=== PATIENT | male | born 1980 | race Caucasian/White ===

== ENCOUNTER 2018-06-06 09:38 | Inpatient (IN) | payer OTHER ==
--- NOTE | 2018-06-06 10:27 | PDOC ---
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 Per parents, pt's seizures were previously well controlled, with seizures occurring only once every few weeks/months. However, over the past 3 weeks, pt's seizure frequency has increased dramatically. Pt was admitted 2 weeks ago to [facility] for status epilepticus. Pt was discharged on new medication regimen, but shortly after returning home, pt's seizures began to increase in frequency again. Yesterday, pt was seen by Dr. Christie, who adjusted his medications once more. However, today since 6am, parents report that pt has had seizures every 2 minutes. Parents deny any recent fevers. They note that he has had a few falls 2/2 seizures, most recently this morning. He has been compliant with his medications. Does not use any drugs/alcohol. Pt currently takes Topamax, phenobarb, keppra, and ativan PRN. Past History - Past Medical History Allergies/Adverse Reactions: Allergies Allergy/AdvReac Type Severity Reaction Status Date / Time No Known Allergies Allergy Verified 06/06/18 10:10 COPD: No Seizures: Yes (s/p menengitis) - Suicide/Smoking/Psychosocial Hx Smoking History: Never smoked Have you smoked in the past 12 months: No Information on smoking cessation initiated: No Hx Alcohol Use: No Drug/Substance Use Hx: No Review of Systems - Review of Systems Able to Perform ROS?: No *Physical Exam - Vital Signs Last Vital Signs Temp Pulse Resp BP Pulse Ox 99.2 F 76 16 115/96 100 06/06/18 09:40 06/06/18 09:40 06/06/18 09:40 06/06/18 09:40 06/06/18 09:40 - Physical Exam Comments: 06/06/18 10:23 GENERAL: Awake, alert, in no acute distress. HEAD: + hematoma to R forehead EYES: PERRLA, EOMI, sclera anicteric, conjunctiva clear ENT: Auricles normal inspection, hearing grossly normal, nares patent, oropharynx clear without exudates. Moist mucosa NECK: Nontender, no stepoffs, Normal ROM, supple, no lymphadenopathy, JVD, or masses LUNGS: Breath sounds equal, clear to auscultation bilaterally. No wheezes, and no crackles HEART: Regular rate and rhythm, normal S1 and S2, no murmurs, rubs or gallops ABDOMEN: Soft, nontender, normoactive bowel sounds. No guarding, no rebound. No masses EXTREMITIES: Normal range of motion, no edema. No clubbing or cyanosis. No cords, erythema, or tenderness NEUROLOGICAL: + Post-ictal, Cranial nerves II through XII intact. 5/5 strength and sensation in all extremities SKIN: Warm, Dry, normal turgor, no rashes or lesions noted. ED Treatment Course - LABORATORY CBC & Chemistry Diagram: 06/06/18 10:13 06/06/18 10:13 - RADIOLOGY Radiology Studies Ordered: Category Date Time Status CERVICAL SPINE CT W/O CONTR [CT] Stat CT Scan 06/06/18 10:[address] WITHOUT CONTRAST [CT] Stat CT Scan 06/06/18 10:08 Ordered CHEST X-RAY PORTABLE* [RAD] Stat Radiology 06/06/18 10:06 Ordered Medical Decision Making - Critical Care Time Total Critical Care Time (minutes): 60 Critical Care Statement: The care of this patient involved high complexity decision making to prevent further life threatening deterioration of the patient 's condition and/or to evaluate & treat vital organ system(s) failure or risk of failure. - Medical Decision Making 06/06/18 10:27 37 M with seizure disorder, presenting to ED in status epilepticus. Etiology unclear. Will evaluate for infectious/metabolic process. Pt also with hematoma to forehead, will r/o intracranial injury. - Labs - CXR, UA - CT head - Keppra load - Ativan PRN - C/s Dr. Christie 06/06/18 11:[address] Christie, who recommends adding Vimpat 100mg IV. Will come evaluate pt. 06/06/18 13:[address] Alondra Quinteros *DC/Admit/Observation/Transfer Diagnosis at time of Disposition: Status epilepticus - Discharge Dispostion Decision to Admit order: Yes - Referrals Referrals: Bhavin Belle MD [Primary Care Provider] - - Patient Instructions - Post Discharge Activity - Attestations Physician Attestion: 06/06/18 13:02 I, Dr. Sean Petit MD, attest that this document has been prepared under my direction and personally reviewed by me in its entirety. I further attest, that it accurately reflects all work, treatment, procedures and medical decision -making performed by me.
[2018-06-06 10:34] LABS: BASO % 0.9 % (0-2.0); EOS % 1.9 % (0-4.5); HEMOGLOBIN 16.9 GM/dL (11.7-16.9); LYMPH % 28.3 % (8-40); MCH 30.7 pg (25.7-33.7); MCHC 33.1 g/dl (32.0-35.9); MEAN CELL VOLUME 92.8 fl (80-96); MEAN PLT VOLUME 8.8 fl (7.5-11.1); MONO % 6.6 % (3.8-10.2); NEUT % 62.3 % (42.8-82.8); PLATELET COUNT 248 K/MM3 (134-434); RBC 5.49 M/mm3 (4.00-5.60); RDW 14.1 % (11.9-15.9); WHITE BLOOD COUNT 9.6 K/mm3 (4.0-10.0)
[2018-06-06] MEDS ORDERED: levETIRAcetam 500 MG/5 ML INJECTION VIAL IVPB ONE ×3 (10:37→10:55)
[2018-06-06 10:45] LABS: PROTHROMBIN TIME (PATIENT) 11.8 SEC (9.7-13.0)
[2018-06-06 10:48] LABS: ACTIVATED PTT 37.6 SECONDS (25.2-36.5)
[2018-06-06] MEDS ORDERED: LORazepam 2 MG/ML SDV VIAL ONE (10:55)
[2018-06-06 10:57] LABS: ALK PHOS 132 U/L (45-117); ANION GAP 3 MMOL/L (8-16); BILIRUBIN,TOTAL 0.2 mg/dL (0.2-1); BLOOD UREA NITROGEN 6 mg/dL (7-18); CHLORIDE 111 mmol/L (98-107); CO2 27 mmol/L (21-32); CREATININE 0.6 mg/dL (0.55-1.3); GLUCOSE,RANDOM 96 mg/dL (74-106); POTASSIUM 4.4 mmol/L (3.5-5.1); SGOT/AST 20 U/L (15-37); SGPT/ALT 41 U/L (13-61); SODIUM 142 mmol/L (136-145)
[2018-06-06] MEDS ORDERED: Lacosamide 200 MG/20 ML VIAL IVPB ONE ×2 (11:24→11:51)
[2018-06-06 11:48] LABS: VENOUS PC02 33.7 mmHg (41-51); VENOUS PH 7.38 (7.31-7.41); VENOUS PO2 76.5 mmHg (30-40)
--- NOTE | 2018-06-06 12:14 | EKG ---
Test Reason : Blood Pressure : / mmHG Vent. Rate : 076 BPM Atrial Rate : 076 BPM P-R Int : 146 ms QRS Dur : 088 ms QT Int : 394 ms P-R-T Axes : 030 -13 018 degrees QTc Int : 443 ms POOR DATA QUALITY, INTERPRETATION MAY BE ADVERSELY AFFECTED NORMAL SINUS RHYTHM NORMAL ECG NO PREVIOUS ECGS AVAILABLE Confirmed by BREANNA DING MD ([id number]) on 06/06/2018 12:14:29 PM Referred By: Confirmed By:BREANNA DING MD
--- NOTE | 2018-06-06 16:10 | HP ---
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 Per parents, pt's seizures were previously well controlled, with seizures occurring only once every few weeks/months. However, over the past 3 weeks, pt's seizure frequency has increased dramatically. Pt was admitted 2 weeks ago to [facility] for status epilepticus. Pt was discharged on new medication regimen, but shortly after returning home, pt's seizures began to increase in frequency again. Yesterday, pt was seen by Dr. Christie, who adjusted his medications once more. However, today since 6am, parents report that pt has had seizures every 2 minutes. Parents deny any recent fevers. They note that he has had a few falls 2/2 seizures, most recently this morning. He has been compliant with his medications. Does not use any drugs/alcohol. Pt currently takes Topamax, phenobarb, keppra, and ativan PRN. 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 - Smoking History Smoking history: Never smoked Have you smoked in the past 12 months: No - Alcohol/Substance Use Hx Alcohol Use: No Home Medications - Allergies Allergies/Adverse Reactions: Allergies Allergy/AdvReac Type Severity Reaction Status Date / Time No Known Allergies Allergy Verified 06/06/18 10:10 Review of Systems - Review of Systems Constitutional: reports: No Symptoms Neck: reports: No Symptoms Cardiovascular: reports: No Symptoms Respiratory: reports: No Symptoms Gastrointestinal: reports: No Symptoms Genitourinary: reports: No Symptoms Physical Examination Vital Signs: Vital Signs Temperature 99.2 F 06/06/18 10:06 Pulse Rate 83 06/06/18 15:19 Respiratory Rate 13 06/06/18 15:19 Blood Pressure 115/78 06/06/18 15:19 O2 Sat by Pulse Oximetry (%) 97 06/06/18 15:19 Constitutional: Yes: Calm Cardiovascular: Yes: Regular Rate and Rhythm, S1, S2 Respiratory: Yes: CTA Bilaterally Gastrointestinal: Yes: Normal Bowel Sounds, Soft Edema: No Labs: CBC, BMP 06/06/18 10:13 06/06/18 10:13 Imaging - Results X-ray: Report Reviewed Cat Scan: Report Reviewed Problem List - Problems (1) Status epilepticus Assessment/Plan: neurology consult vimpat seizure preciatuons dvt ppx tylenol keppra level Code(s): G40.901 - EPILEPSY, UNSP, NOT INTRACTABLE, WITH STATUS EPILEPTICUS
--- NOTE | 2018-06-06 16:27 | CON.NEURO ---
Consult Consult Specialty:: Pratik Referred by:: ER - History of Present Illness History of Present Illness: 7-YEAR-OLD RIGHT-HANDED MAN WITH HISTORY OF CHILDHOOD MENINGITIS PRESENTED TO THE HOSPITAL WITH FREQUENT SEIZURE. pATIENT HAD MULTIPLE SEIZURES SINCE ADMISSION ACTUALLY SAW THE PATIENT YESTERDAY IN MY OFFICE HE WAS SEIZURE-FREE PATIENT WAS RECENTLY DISCHARGED FROM [facility] PATIENT HAS BEEN ON MULTIPLE MULTIPLE SEIZURE MEDICATION WITH MULTIPLE SIDE EFFECTS. Patient was recently discharged from the hospital on Dilantin which gave the patient cough Patient was currently on Topamax and zonisamide Keppra and phenobarbital. Medication recon sedation was done yesterday patient was supposed to increase the Keppra to 3500 mg a day. Patient received 1750 of the Keppra IV in the emergency room. 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 postictal Physical Exam-Neuro Vital Signs: Vital Signs Temperature 99.2 F 06/06/18 10:06 Pulse Rate 83 06/06/18 15:19 Respiratory Rate 13 06/06/18 15:19 Blood Pressure 115/78 06/06/18 15:19 O2 Sat by Pulse Oximetry (%) 97 06/06/18 15:19 Constitutional: Yes: Well Nourished Neck: Yes: WNL Cardiovascular: Yes: WNL Labs: CBC, BMP 06/06/18 10:13 06/06/18 10:13 INR, PTT INR 1.00 (0.83-1.09) 06/06/18 10:13 - Neuro Exam Level Of Consciousness: Yes: Alert, Oriented to Person Eyes: Yes: PERRLA Speech: WNL Gag: Present DTR's: 1+ Left Bicep, 1+ Right Bicep, 1+ Left Tricep, 1+ Right Tricep Coordination: Normal: Finger to Nose Motor Strength: 3/5: Left Arm, Right Arm, Left Leg, Right Leg Imaging - Results Cat Scan: Image Reviewed Problem List - Problems (1) Status epilepticus Assessment/Plan: poorly controlled seizure disorder on multiple medication Discussion yesterday was done with the mother regarding potential for epilepsy surgery Plan 1. Admit to the medical ICU. 2. Neuro checks every 1 hour. 3. Start Vimpat 100 mg by mouth every 12. 4. Continue Keppra 1750 twice daily. 4. Topamax 200 mg 3 times daily. 5. Continue phenobarbital the same. 6. Obtain levels. 8. EEG. Start communication with [place] epilepsy surgical team Code(s): G40.901 - EPILEPSY, UNSP, NOT INTRACTABLE, WITH STATUS EPILEPTICUS
[2018-06-06 20:13] VITALS: BMI 29.7
[2018-06-06] MEDS: HEPARIN NA (PORCINE) 5,000 UNITS/ML 1ML VIAL SQ SCH (21:22)
[2018-06-06] MEDS: LACOSAMIDE 50 MG TABLET PO SCH (21:22)
[2018-06-06] MEDS: ACETAMINOPHEN 325 MG TABLET (FP) PO PRN (21:22)
[2018-06-07 07:18] LABS: HEMATOCRIT 47.4 % (35.4-49); HEMOGLOBIN 15.7 GM/dL (11.7-16.9); MCH 30.5 pg (25.7-33.7); MCHC 33.1 g/dl (32.0-35.9); MEAN CELL VOLUME 92.1 fl (80-96); MEAN PLT VOLUME 9.4 fl (7.5-11.1); PLATELET COUNT 199 K/MM3 (134-434); RBC 5.14 M/mm3 (4.00-5.60); RDW 14.2 % (11.9-15.9); WHITE BLOOD COUNT 7.5 K/mm3 (4.0-10.0)
[2018-06-07 07:23] LABS: PROTHROMBIN TIME (PATIENT) 11.8 SEC (9.7-13.0)
[2018-06-07 07:26] LABS: ACTIVATED PTT 34.5 SECONDS (25.2-36.5)
[2018-06-07 08:01] LABS: ALBUMIN 3.4 g/dl (3.4-5.0); ALK PHOS 107 U/L (45-117); ANION GAP 8 MMOL/L (8-16); BILIRUBIN,TOTAL 0.3 mg/dL (0.2-1); BLOOD UREA NITROGEN 12 mg/dL (7-18); CALCIUM 8.5 mg/dL (8.5-10.1); CHLORIDE 108 mmol/L (98-107); CO2 23 mmol/L (21-32); CREATININE 0.5 mg/dL (0.55-1.3); GLUCOSE,RANDOM 88 mg/dL (74-106); MAGNESIUM 2.4 mg/dL (1.8-2.4); PHOSPHOROUS 3.3 mg/dL (2.5-4.9); POTASSIUM 3.8 mmol/L (3.5-5.1); SGOT/AST 17 U/L (15-37); SGPT/ALT 33 U/L (13-61); SODIUM 139 mmol/L (136-145)
--- NOTE | 2018-06-07 10:13 | PN ---
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, Physician - Current Medication List Current Medications: Active Medications Acetaminophen (Tylenol -) 650 mg PO Q4H PRN PRN Reason: FEVER Last Admin: 06/06/18 21:22 Dose: 650 mg Heparin Sodium (Porcine) (Heparin -) 5,000 unit SQ BID [facility] Last Admin: 06/06/18 21:22 Dose: 5,000 unit Lacosamide (Vimpat -) 100 mg PO BID [facility] Last Admin: 06/06/18 21: Dose: 100 mg - Objective Vital Signs: Vital Signs Temperature 98.5 F 06/07/18 06:00 Pulse Rate 73 06/07/18 06:00 Respiratory Rate 18 06/07/18 06:00 Blood Pressure 111/74 06/07/18 06:00 O2 Sat by Pulse Oximetry (%) 97 06/06/18 21:00 Cardiovascular: Yes: Regular Rate and Rhythm Respiratory: Yes: Regular, CTA Bilaterally Gastrointestinal: Yes: Normal Bowel Sounds, Soft Neurological: Yes: Pre-Existing Deficit Labs: CBC, BMP 06/07/18 07:00 06/07/18 07:00 INR, PTT INR 1.00 (0.83-1.09) 06/07/18 07:00 Problem List - Problems (1) Status epilepticus Assessment/Plan: neurology consult vimpat seizure preciatuons dvt ppx tylenol keppra level Code(s): G40.901 - EPILEPSY, UNSP, NOT INTRACTABLE, WITH STATUS EPILEPTICUS
[2018-06-07] MEDS: HEPARIN NA (PORCINE) 5,000 UNITS/ML 1ML VIAL SQ SCH ×2 (10:59→21:35)
[2018-06-07] MEDS: LACOSAMIDE 50 MG TABLET PO SCH ×2 (10:59→21:35)
--- NOTE | 2018-06-07 12:40 | PN ---
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, Physician History of Present Illness: events noted that chart is reviewed Alert awake oriented sitting in the bed Family is happy with the treatment so far Mild small seizure - Current Medication List Current Medications: Active Medications Acetaminophen (Tylenol -) 650 mg PO Q4H PRN PRN Reason: FEVER Last Admin: 06/06/18 21:22 Dose: 650 mg Heparin Sodium (Porcine) (Heparin -) 5,000 unit SQ BID [facility] Last Admin: 06/07/18 10:59 Dose: 5,000 unit Lacosamide (Vimpat -) 100 mg PO BID [facility] Last Admin: 06/07/18 10:59 Dose: 100 mg - Objective Vital Signs: Vital Signs Temperature 98.2 F 06/07/18 10:00 Pulse Rate 77 06/07/18 10:00 Respiratory Rate 18 06/07/18 10:00 Blood Pressure 117/76 06/07/18 10:00 O2 Sat by Pulse Oximetry (%) 97 06/06/18 21:00 Constitutional: Yes: Well Nourished Eyes: Yes: WNL Neurological: Yes: Alert, Oriented, Babinski positive ...Motor Strength: WNL Labs: CBC, BMP 06/07/18 07:00 06/07/18 07:00 INR, PTT INR 1.00 (0.83-1.09) 06/07/18 07:00 Problem List - Problems (1) Status epilepticus Assessment/Plan: status epilepticus controlled Complex partial seizure with partial onset 1. Seizure precautions. 2. Continue Vimpat the same. 3. Continue Keppra with the plan to dc Keppra as an outpatient. 4. Neurologically patient can go home June 08 Code(s): G40.901 - EPILEPSY, UNSP, NOT INTRACTABLE, WITH STATUS EPILEPTICUS
[2018-06-07 19:36] LABS: PH,URINE 7.5 (5.0-8.0); URINE APPEARANCE CLEAR; URINE BILIRUBIN NEGATIVE (NEGATIVE); URINE COLOR YELLOW; URINE GLUCOSE (UA) NEGATIVE (NEGATIVE); URINE KETONE NEGATIVE (NEGATIVE); URINE LEUK ESTERASE NEGATIVE (NEGATIVE); URINE NITRITE NEGATIVE (NEGATIVE); URINE PROTEIN NEGATIVE (NEGATIVE); URINE UROBILINOGEN 0.2 mg/dL (0.2-1.0)
[2018-06-07] MEDS: ACETAMINOPHEN 325 MG TABLET (FP) PO PRN (21:36)
[2018-06-08] MEDS: LACOSAMIDE 50 MG TABLET PO SCH ×2 (09:35→21:17)
[2018-06-08] MEDS: HEPARIN NA (PORCINE) 5,000 UNITS/ML 1ML VIAL SQ SCH ×2 (09:35→21:17)
--- NOTE | 2018-06-08 11:54 | PN ---
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, Physician Chief Complaint: events and notes reviewed mom is bedside +seizure overnight - Current Medication List Current Medications: Active Medications Acetaminophen (Tylenol -) 650 mg PO Q4H PRN PRN Reason: FEVER Last Admin: 06/07/18 21:36 Dose: 650 mg Heparin Sodium (Porcine) (Heparin -) 5,000 unit SQ BID [facility] Last Admin: 06/08/18 09:35 Dose: 5,000 unit Lacosamide (Vimpat -) 100 mg PO BID [facility] Last Admin: 06/08/18 09:35 Dose: 100 mg - Objective Vital Signs: Vital Signs Temperature 98.5 F 06/08/18 06:00 Pulse Rate 63 06/08/18 06:00 Respiratory Rate 18 06/08/18 06:00 Blood Pressure 134/71 06/08/18 06:00 O2 Sat by Pulse Oximetry (%) 97 06/06/18 21:00 Constitutional: Yes: Mild Distress Cardiovascular: Yes: Regular Rate and Rhythm Respiratory: Yes: WNL Gastrointestinal: Yes: WNL Musculoskeletal: Yes: Muscle Weakness Edema: No ...Motor Strength: LLE, RLE Psychiatric: Yes: Other Labs: CBC, BMP 06/07/18 07:00 06/07/18 07:00 INR, PTT INR 1.00 (0.83-1.09) 06/07/18 07:00 Problem List - Problems (1) Status epilepticus Code(s): G40.901 - EPILEPSY, UNSP, NOT INTRACTABLE, WITH STATUS EPILEPTICUS Assessment/Plan NEUROLOGY WORKUP AND FOLLOW UP NEURO CHECKS FALL RISKS MAY NEED TO ADD KEPPRA WITH VINPAT PT EVAL
[2018-06-08] MEDS ORDERED: LORazepam 2 MG/ML SDV VIAL IVPUSH ONE (23:06)
[2018-06-08] MEDS ORDERED: levETIRAcetam 500 MG TABLET (FP) PO SCH ×2 (23:15→23:30)
[2018-06-08] MEDS ORDERED: LORazepam 2 MG/ML SDV VIAL IVPUSH PRN (23:16)
--- NOTE | 2018-06-08 23:21 | PN ---
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 (short form) - Note 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: Rapid response called for Pt. found to be in partial tonic clonic seizures involving the upper extremities. Vital signs showed BP 150s/60s and HR of 66. Family was in attendance. No difficulty with respirations observed. Pt. seen to have post-ictal confusion, reoriented by mother at bedside. Pt. observed to have multiple seizures all less than 90 seconds. Pt. given 2mg Ativan. Pt. had appropriate response to medications and appears comfortable. Chart reviewed, Pt. restarted on Keppra, topomax, vimpat and phenobarbital per Neurology recommendations.
--- NOTE | 2018-06-08 23:26 | HOSP ---
Subjective - Review of Symptoms Events since last encounter: pt is having multiple seizures and rapid response was called and pt is given iv ativan for repeat seizure in few mins he is being evaluated by rapid response vs Vital Signs Period Temp Pulse Resp BP Sys/Ortiz Pulse Ox Last 24 Hr 98.3 F-98.5 F 63-99 18-18 125-134/65-80 pt is actively having seizures Here is Neurologist recommendations Dr Estrada poorly controlled seizure disorder on multiple medication Discussion yesterday was done with the mother regarding potential for epilepsy surgery Plan 1. Admit to the medical ICU. 2. Neuro checks every 1 hour. 3. Start Vimpat 100 mg by mouth every 12. 4. Continue Keppra 1750 twice daily. 4. Topamax 200 mg 3 times daily. 5. Continue phenobarbital the same. 6. Obtain levels. 8. EEG. Start communication with [place] epilepsy surgical team Assesment and Plan will start on keppra, tompamax,phenobarbital and continue vampat Physical Examination Vital Signs: Vital Signs Temperature 98.3 F 06/08/18 16:15 Pulse Rate 99 H 06/08/18 16:15 Respiratory Rate 18 06/08/18 16:15 Blood Pressure 127/80 06/08/18 16:15 O2 Sat by Pulse Oximetry (%) 97 06/06/18 21:00 Labs: CBC, BMP 06/07/18 07:00 06/07/18 07:00
[2018-06-08] MEDS ORDERED: levETIRAcetam 250 MG TABLET (FP) PO SCH (23:30)
[2018-06-08] MEDS ORDERED: levETIRAcetam 250 MG TABLET (FP) PO ONE (23:31)
[2018-06-08] MEDS ORDERED: levETIRAcetam 500 MG TABLET (FP) PO ONE (23:31)
[2018-06-08] MEDS: levETIRAcetam 1,500 MG, levETIRAcetam 250 MG PO SCH (23:45)
[2018-06-08] MEDS: TOPIRAMATE 100 MG TABLET PO SCH (23:45)
[2018-06-08] MEDS: PHENobarbital 30 MG TABLET PO SCH (23:45)
[2018-06-08] MEDS: ACETAMINOPHEN 325 MG TABLET (FP) PO PRN (23:52)
[2018-06-09] MEDS: TOPIRAMATE 100 MG TABLET PO SCH ×3 (05:58→21:24)
[2018-06-09] MEDS ORDERED: levETIRAcetam 250 MG TABLET (FP) PO ONE ×2 (09:15→15:15)
[2018-06-09] MEDS ORDERED: levETIRAcetam 500 MG TABLET (FP) PO ONE (09:15)
[2018-06-09] MEDS ORDERED: PT OWN MED DRAWER 7, Y5N ONE ×3 (09:16→20:38)
[2018-06-09] MEDS: levETIRAcetam 1,500 MG, levETIRAcetam 250 MG PO SCH (09:21)
[2018-06-09] MEDS: PHENobarbital 30 MG TABLET PO SCH ×2 (09:21→21:24)
[2018-06-09] MEDS: LACOSAMIDE 50 MG TABLET PO SCH ×2 (09:21→21:24)
[2018-06-09] MEDS: HEPARIN NA (PORCINE) 5,000 UNITS/ML 1ML VIAL SQ SCH ×2 (09:21→21:26)
[2018-06-09] MEDS ORDERED: LACOSAMIDE 50 MG TABLET PO ONE (14:03)
[2018-06-09] MEDS ORDERED: LACOSAMIDE 50 MG TABLET PO SCH (14:03)
--- NOTE | 2018-06-09 14:06 | PN ---
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, Physician Chief Complaint: overnight events noted rapid response was called for seizures spoke to Dr holland and recommends to inc vimpat to 200mg po bid no more seizures since last night - Current Medication List Current Medications: Active Medications Acetaminophen (Tylenol -) 650 mg PO Q4H PRN PRN Reason: FEVER Last Admin: 06/08/18 23:52 Dose: 650 mg Heparin Sodium (Porcine) (Heparin -) 5,000 unit SQ BID [facility] Last Admin: 06/09/18 09:21 Dose: 5,000 unit Lacosamide (Vimpat -) 200 mg PO BID [facility] Lacosamide (Vimpat -) 100 mg PO ONCE ONE Stop: 06/09/18 14:04 Levetiracetam 1,500 mg/ (Levetiracetam 250 mg) 1,750 mg PO BID [facility] Last Admin: 06/09/18 09:21 Dose: 1,750 mg Lorazepam (Ativan Injection -) 2 mg IVPUSH DAILY PRN PRN Reason: ANXIETY Stop: 06/09/18 23:15 Phenobarbital (Phenobarbital -) 60 mg PO BID [facility] Last Admin: 06/09/18 09:21 Dose: 60 mg Topiramate (Topamax -) 200 mg PO TID [facility] Last Admin: 06/09/18 13:30 Dose: 200 mg - Objective Vital Signs: Vital Signs Temperature 98.0 F 06/09/18 10:00 Pulse Rate 66 06/09/18 10:00 Respiratory Rate 20 06/09/18 10:00 Blood Pressure 117/72 06/09/18 10:00 O2 Sat by Pulse Oximetry (%) 97 06/09/18 09:00 Constitutional: Yes: Calm Cardiovascular: Yes: Regular Rate and Rhythm, S1, S2 Respiratory: Yes: CTA Bilaterally Gastrointestinal: Yes: Normal Bowel Sounds, Soft Edema: No Labs: CBC, BMP 06/07/18 07:00 06/07/18 07:00 INR, PTT INR 1.00 (0.83-1.09) 06/07/18 07:00 Problem List - Problems (1) Status epilepticus Assessment/Plan: neurology on board vimpat 100mg bid to inc to 200mg bid seizure preciatuons dvt ppx tylenol keppra 1750mg bid phenobarbitol 60mg bid topiramate 200mg tid Code(s): G40.901 - EPILEPSY, UNSP, NOT INTRACTABLE, WITH STATUS EPILEPTICUS
[2018-06-09] MEDS ORDERED: levETIRAcetam 500 MG/5 ML INJECTION VIAL IVPB ONE (14:32)
--- NOTE | 2018-06-09 18:03 | PN ---
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, Physician History of Present Illness: events noted Chart reviewed Patient was doing very well until last night when he had 4 seizures according to the mother back to back Known called neurology Patient is on a combination of Vimpat Keppra and Topamax - Current Medication List Current Medications: Active Medications Acetaminophen (Tylenol -) 650 mg PO Q4H PRN PRN Reason: FEVER Last Admin: 06/08/18 23:52 Dose: 650 mg Heparin Sodium (Porcine) (Heparin -) 5,000 unit SQ BID [facility] Last Admin: 06/09/18 09:21 Dose: 5,000 unit Lacosamide (Vimpat -) 200 mg PO BID [facility] Levetiracetam (Keppra -) 2,000 mg PO BID [facility] Lorazepam (Ativan Injection -) 2 mg IVPUSH DAILY PRN PRN Reason: ANXIETY Stop: 06/09/18 23:15 Phenobarbital (Phenobarbital -) 60 mg PO BID [facility] Last Admin: 06/09/18 09:21 Dose: 60 mg Topiramate (Topamax -) 200 mg PO TID [facility] Last Admin: 06/09/18 13:30 Dose: 200 mg - Objective Vital Signs: Vital Signs Temperature 97.6 F 06/09/18 14:15 Pulse Rate 75 06/09/18 14:15 Respiratory Rate 18 06/09/18 14:15 Blood Pressure 120/73 06/09/18 14:15 O2 Sat by Pulse Oximetry (%) 97 06/09/18 09:00 Constitutional: Yes: Well Nourished Eyes: Yes: WNL Neurological: Yes: Alert, Oriented, Babinski negative ...Motor Strength: WNL Labs: CBC, BMP 06/07/18 07:00 06/07/18 07:00 INR, PTT INR 1.00 (0.83-1.09) 06/07/18 07:00 Problem List - Problems (1) Status epilepticus Assessment/Plan: 1. Seizure precautions. 2. Increase Vimpat to 200 mg twice daily. 3. Keppra the same 1750 twice daily. 4. If the patient's seizure free for 24 hours can be discharged. Code(s): G40.901 - EPILEPSY, UNSP, NOT INTRACTABLE, WITH STATUS EPILEPTICUS
[2018-06-09] MEDS: levETIRAcetam 500 MG TABLET (FP) PO SCH (21:24)
[2018-06-10] MEDS: TOPIRAMATE 200 MG TABLET (FP) PO SCH ×3 (05:42→22:50)
[2018-06-10] MEDS: LACOSAMIDE 50 MG TABLET PO SCH ×2 (09:47→22:49)
[2018-06-10] MEDS: PHENobarbital 30 MG TABLET PO SCH ×2 (09:48→22:50)
[2018-06-10] MEDS: levETIRAcetam 500 MG TABLET (FP) PO SCH ×2 (09:48→22:49)
[2018-06-10] MEDS: HEPARIN NA (PORCINE) 5,000 UNITS/ML 1ML VIAL SQ SCH ×2 (09:48→22:51)
--- NOTE | 2018-06-10 15:23 | DS ---
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 As per mother patient seizures have been more frequently and increased. Patient was admitted to [facility] prior to coming to [facility] with same chief complaint. While admitted patient was followed by neurology and had medication managed by them. Constitutional: Yes: No Distress, Calm Eyes: Yes: Conjunctiva Clear HENT: Yes: Atraumatic Cardiovascular: Yes: Regular Rate and Rhythm Respiratory: Yes: Regular, CTA Bilaterally Gastrointestinal: Yes: Normal Bowel Sounds, Soft Renal/: Yes: Incontinence Musculoskeletal: Yes: Muscle Weakness Extremities: Yes: WNL Edema: No Neurological: Yes: Alert, Pre-Existing Deficit Psychiatric: Yes: Alert Labs: CBC, BMP 06/07/18 07:00 06/07/18 07:00 Discharge Summary Reason For Visit: STATUS EPILEPTICUS Current Active Problems Status epilepticus (Acute) Hospital Course: see progress notes Laboratory Tests 06/06/18 06/06/18 06/06/18 10:13 10:13 10:13 WBC 9.6 RBC 5.49 Hgb 16.9 Hct 51.0 H MCV 92.8 MCH 30.7 MCHC 33.1 RDW 14.1 Plt Count 248 MPV 8.8 Absolute Neuts (auto) 6.0 Neutrophils % 62.3 Lymphocytes % 28.3 Monocytes % 6.6 Eosinophils % 1.9 Basophils % 0.9 Nucleated RBC % 0 PT with INR 11.80 INR 1.00 PTT (Actin FS) 37.6 H VBG pH POC VBG pCO2 POC VBG pO2 VBG HCO3 VBG O2 Sat ([place]) VBG Base Excess Sodium 142 Potassium 4.4 Chloride 111 H Carbon Dioxide 27 Anion Gap 3 L BUN 6 L Creatinine 0.6 Creat Clearance w eGFR 152.45 Random Glucose 96 Lactic Acid Calcium 9.0 Phosphorus Magnesium Total Bilirubin 0.2 AST 20 ALT 41 Alkaline Phosphatase 132 H Troponin I Total Protein 8.0 Albumin 4.0 Urine Color Urine Appearance Urine pH Ur Specific [place] Urine Protein Urine Glucose (UA) Urine Ketones Urine Blood Urine Nitrite Urine Bilirubin Urine Urobilinogen Ur Leukocyte Esterase Levetiracetam 06/06/18 06/06/18 06/06/18 10:13 11:30 11:30 WBC RBC Hgb Hct MCV MCH MCHC RDW Plt Count MPV Absolute Neuts (auto) Neutrophils % Lymphocytes % Monocytes % Eosinophils % Basophils % Nucleated RBC % PT with INR INR PTT (Actin FS) VBG pH 7.38 POC VBG pCO2 33.7 L POC VBG pO2 76.5 H VBG HCO3 19.3 L VBG O2 Sat ([place]) 95.0 H VBG Base Excess -4.5 L Sodium Potassium Chloride Carbon Dioxide Anion Gap BUN Creatinine Creat Clearance w eGFR Random Glucose Lactic Acid 1.1 Calcium Phosphorus Magnesium Total Bilirubin AST ALT Alkaline Phosphatase Troponin I < 0.02 Total Protein Albumin Urine Color Urine Appearance Urine pH Ur Specific [place] Urine Protein Urine Glucose (UA) Urine Ketones Urine Blood Urine Nitrite Urine Bilirubin Urine Urobilinogen Ur Leukocyte Esterase Levetiracetam 06/06/18 06/06/18 06/07/18 11:30 14:30 07:00 WBC 7.5 RBC 5.14 Hgb 15.7 Hct 47.4 MCV 92.1 MCH 30.5 MCHC 33.1 RDW 14.2 Plt Count 199 MPV 9.4 Absolute Neuts (auto) Neutrophils % Lymphocytes % Monocytes % Eosinophils % Basophils % Nucleated RBC % PT with INR INR PTT (Actin FS) VBG pH POC VBG pCO2 POC VBG pO2 VBG HCO3 VBG O2 Sat ([place]) VBG Base Excess Sodium Potassium Chloride Carbon Dioxide Anion Gap BUN Creatinine Creat Clearance w eGFR Random Glucose Lactic Acid 1.0 Calcium Phosphorus Magnesium Total Bilirubin AST ALT Alkaline Phosphatase Troponin I Total Protein Albumin Urine Color Urine Appearance Urine pH Ur Specific [place] Urine Protein Urine Glucose (UA) Urine Ketones Urine Blood Urine Nitrite Urine Bilirubin Urine Urobilinogen Ur Leukocyte Esterase Levetiracetam 90.5 H 06/07/18 06/07/18 06/07/18 07:00 07:00 17:45 WBC RBC Hgb Hct MCV MCH MCHC RDW Plt Count MPV Absolute Neuts (auto) Neutrophils % Lymphocytes % Monocytes % Eosinophils % Basophils % Nucleated RBC % PT with INR 11.80 INR 1.00 PTT (Actin FS) 34.5 VBG pH POC VBG pCO2 POC VBG pO2 VBG HCO3 VBG O2 Sat (Portilol) VBG Base Excess Sodium 139 Potassium 3.8 Chloride 108 H Carbon Dioxide 23 Anion Gap 8 BUN 12 Creatinine 0.5 L Creat Clearance w eGFR 188.15 Random Glucose 88 Lactic Acid Calcium 8.5 Phosphorus 3.3 Magnesium 2.4 Total Bilirubin 0.3 AST 17 ALT 33 Alkaline Phosphatase 107 Troponin I Total Protein 7.0 Albumin 3.4 Urine Color Yellow Urine Appearance Clear Urine pH 7.5 Ur Specific [place] 1.006 L Urine Protein Negative Urine Glucose (UA) Negative Urine Ketones Negative Urine Blood Negative Urine Nitrite Negative Urine Bilirubin Negative Urine Urobilinogen 0.2 Ur Leukocyte Esterase Negative Levetiracetam Active Medications Generic Name Dose Route Start Last Admin Trade Name Freq PRN Reason Stop Dose Admin Acetaminophen 650 mg 06/06/18 16:17 06/08/18 23:52 Tylenol - PO 650 mg Q4H PRN Administration FEVER Heparin Sodium (Porcine) 5,000 unit 06/06/18 22:00 06/10/18 09:48 Heparin - SQ 5,000 unit BID TIKI Administration Lacosamide 200 mg 06/09/18 22:00 06/10/18 09:47 Vimpat - PO 200 mg BID TIKI Administration Levetiracetam 2,000 mg 06/09/18 14:21 06/10/18 09:48 Keppra - PO 2,000 mg BID TIKI Administration Phenobarbital 60 mg 06/08/18 23:30 06/10/18 09:48 Phenobarbital - PO 60 mg BID TIKI Administration Topiramate 200 mg 06/10/18 06:00 06/10/18 14:41 Topamax - PO 200 mg TID TIKI Administration Microbiology 06/06/18 11:30 Blood - Peripheral Venous Blood Culture - Preliminary NO GROWTH OBTAINED AFTER 96 HOURS, INCUBATION TO CONTINUE FOR 1 DAYS. 06/06/18 11:30 Blood - Peripheral Venous Blood Culture - Preliminary NO GROWTH OBTAINED AFTER 96 HOURS, INCUBATION TO CONTINUE FOR 1 DAYS. 06/07/18 17:45 Urine - Urine Clean Catch Urine Culture - Final Contaminated: Please Repeat Condition: Stable - Instructions Diet, Activity, Other Instructions: follow up with PMD in 2 weeks follow up with Neurologist Dr Christie continue current med regimen as prescribed return to ER if develop seizures longer than 1 minute, chest pain, respiratory distress Referrals: Venita Christie MD [Staff Physician] - Disposition: HOME - Home Medications Comprehensive Discharge Medication List: Ambulatory Orders Lacosamide [Vimpat -] 200 mg PO BID #240 tab MDD 4 06/10/18 Topiramate [Topamax -] 200 mg PO TID #90 tablet 06/10/18 levETIRAcetam [Keppra -] 2,000 mg PO BID #240 tablet 06/10/18 Phenobarbital 60mg BID #60 tablet
[2018-06-10] MEDS ORDERED: PT OWN MED DRAWER 7, Y5N ONE (21:56)
[2018-06-11] MEDS ORDERED: PT OWN MED DRAWER 7, Y5N ONE ×3 (05:49→09:30)
[2018-06-11] MEDS: TOPIRAMATE 200 MG TABLET (FP) PO SCH ×2 (06:04→13:42)
[2018-06-11] MEDS: LACOSAMIDE 50 MG TABLET PO SCH (09:31)
[2018-06-11] MEDS: levETIRAcetam 500 MG TABLET (FP) PO SCH (09:31)
[2018-06-11] MEDS: PHENobarbital 30 MG TABLET PO SCH (09:31)
[2018-06-11] MEDS: HEPARIN NA (PORCINE) 5,000 UNITS/ML 1ML VIAL SQ SCH (09:32)
[2018-06-11 10:22] VITALS: BP 118/71; PULSE 76; TEMP 98.6
== END 2018-06-11 14:42 | disposition home or self-care (01) | DRG 53 ==
LOC: JER 09:38 → JERBED 13:02 → J8W 18:37
PROVIDERS: ADMIT Student in an Organized Health Care Education/Training Program; ATTEND Student in an Organized Health Care Education/Training Program
DX: G40.901 Epilepsy, unspecified, not intractable, with status epilepticus (principal); Z86.61 Personal history of infections of the central nervous system
CPT/HCPCS: 36415; 70450-TC; 71045-TC-FY; 72125-TC; 80053; 80177; 81003; 82803; 83605; 83735; 84100; 84484; 85025; 85027; 85610; 85730; 87040; 87086; 93005; 93010; 95816; 97116-GP; 97161-GP; 99285-25; J1644

== ENCOUNTER 2019-02-20 19:49 | Emergency (ER) | payer OTHER ==
[2019-02-20 19:59] VITALS: TEMP 98
--- NOTE | 2019-02-20 20:34 | PDOC ---
History of Present Illness - General Chief Complaint: Headache Stated Complaint: HEADACHE Time Seen by Provider: 02/20/19 20:01 - History of Present Illness Initial Comments: 02/20/19 20:30 CHIEF COMPLAINT: seizure/fall HISTORY OF PRESENT ILLNESS: 38 yo M with hx of epilepsy and childhood meningitis presents to ED s/p fall. Patient is non-verbal at baseline. Mother reports patient has c/o of headache for the past three days and fell today with injury to forehead. Mother reports that the patient's father witnessed the patient fall and denies any LOC at the time of fall. Patient fell forward after having a seizure. Per mother patient was hospitalized in June "for a lot of seizures" and has been stable until yesterday when he had his first seizure since June. Mother reports patient has c/o of pain to R scapula; patient has a hx of a broken R clavible s/p seizure and mother states she is unsure if the pain is secondary to his old injury or from the fall today. Patient is followed by neurologist Dr. Christie and is currently taking Topamax, lacosamid, Keppra, and phenobarb. No recent travel or sick contacts. PAST MEDICAL HISTORY: epilepsy FAMILY HISTORY: Denies SOCIAL HISTORY:Denies tobacco, alcohol, illicit drug use. SURGICAL HISTORY: Denies ALLERGIES: No known drug allergies REVIEW OF SYSTEMS General/Constitutional: Tactile fever per mother. Denies weakness, weight change. HEENT: Denies change in vision. Denies ear pain or discharge. Denies sore throat. Cardiovascular: Denies chest pain or shortness of breath. Respiratory: Denies cough, wheezing, or hemoptysis. Gastrointestinal: Denies nausea, vomiting, diarrhea or constipation. Denies rectal bleeding. Genitourinary: Denies dysuria, frequency, or change in urination. Musculoskeletal: Pain to R scapula. Denies joint or muscle swelling or pain. Denies neck or back pain. Skin and breasts: Denies rash or easy bruising. Neurologic: Headache x 3 days. Mother denies vertigo, loss of consciousness, or loss of sensation. Psychiatric: Denies depression or anxiety. PHYSICAL EXAM General Appearance: Well-appearing, appropriately dressed. No apparent distress , no intoxication. HEENT: Hematoma to R forehead. Scar to left forehead from prior injury per mother. EOMI, PERRLA, normal ENT inspection, normal voice, TMs normal, pharynx normal. No conjunctival pallor. No photophobia, scleral icterus. Neck: Supple. Trachea midline. No tenderness, rigidity, carotid bruit, stridor , lymphadenopathy, or thyromegaly. Respiratory/Chest: Lungs CTAB. No shortness of breath, chest tenderness, respiratory distress, accessory muscle use. No crackles, rales, rhonchi, stridor , wheezing, dullness Cardiovascular: RRR. S1, S2. No JVD, murmur, bradycardia, tachycardia. Vascular Pulses: Dorsalis-Pedis (R): 2+, Dorsalis-Pedis (L): 2+ Gastrointestinal/Abdominal: Normal bowel sounds. Abdomen soft, non-distended. No tenderness or rebound tenderness. No organomegaly, pulsatile mass, guarding , hernia, hepatomegaly, splenomegaly. Musculoskeletal/Extremities: Tenderness to R scapula on palpation. FROM of all extremities, normal capillary refill. Pelvis Stable. No CVA tenderness. No tenderness to extremities, pedal edema, swelling, erythema or deformity. Integumentary: Appropriate color, dry, warm. No cyanosis, erythema, jaundice or rash Neurologic: station master II-XII intact. Fully oriented, alert. Appropriate mood/affect. Motor strength 5/5. No appreciable EOM palsy, facial droop or sensory deficit. Past History - Past Medical History Allergies/Adverse Reactions: Allergies Allergy/AdvReac Type Severity Reaction Status Date / Time No Known Allergies Allergy Verified 02/20/19 19:54 Home Medications: Ambulatory Orders Topiramate [Topamax -] 200 mg PO TID #90 tablet 06/10/18 levETIRAcetam [Keppra -] 2,000 mg PO BID #240 tablet 06/10/18 Lacosamide [Vimpat] 200 mg PO BID #60 tablet MDD 2 06/11/18 Phenobarbital - 60 mg PO BID #120 tablet MDD 4 06/11/18 Anemia: No Asthma: No Cancer: No Cardiac Disorders: No COPD: No CHF: No Dementia: No Diabetes: No GI Disorders: No Disorders: No Liver Disease: No Seizures: Yes (s/p menengitis) - Psycho Social/Smoking Cessation Hx Smoking History: Never smoked Have you smoked in the past 12 months: No Hx Alcohol Use: No Drug/Substance Use Hx: No Substance Use Type: None Hx Substance Use Treatment: No *Physical Exam - Vital Signs Last Vital Signs Temp Pulse Resp BP Pulse Ox 98 F 69 18 139/82 99 02/20/19 19:51 02/20/19 19:51 02/20/19 19:51 02/20/19 19:51 02/20/19 19:51 Medical Decision Making - Medical Decision Making 02/20/19 20:39 38 yo M with hx of epilepsy and childhood meningitis presents to ED s/p fall. -labs -head CT -x-ray scapula 02/21/19 01:35 head/cspine CT negative. Mother refused labs after two attempts by RN and states she has appt with PCP on Saturday for labwork. Mother requests to be discharged. Patient is well appearing with negative imaging. Mother appears reliable for f/u with PCP and neurology. Advised mother to f/u with PCP on Saturday as scheduled and of signs and symptoms for return to ED. Patient verbalized understanding and agrees to plan. Discharge - Discharge Information Problems reviewed: Yes Clinical Impression/Diagnosis: Status epilepticus Fall Qualifiers: Encounter type: subsequent encounter Qualified Code(s): W19.XXXD - Unspecified fall, subsequent encounter Condition: Stable Disposition: HOME - Admission No - Follow up/Referral Referrals: Bhavin Belle MD [Primary Care Provider] - - Patient Discharge Instructions Patient Printed Discharge Instructions: Seizure Disorder -- Adult Additional Instructions: Follow up with your PCP on Saturday as scheduled. Please monitor Kumar for any change in behavior, vomiting, or any new or worsening symptoms, return to the ER immediately should any of these occur. - Post Discharge Activity
[2019-02-20] MEDS ORDERED: levETIRAcetam 500 MG TABLET (FP) PO ONE ×3 (23:11→23:58)
[2019-02-20] MEDS ORDERED: LACOSAMIDE 50 MG TABLET PO ONE (23:37)
[2019-02-20] MEDS ORDERED: PHENobarbital 30 MG TABLET ONE (23:37)
[2019-02-21] MEDS ORDERED: LACOSAMIDE 50 MG TABLET PO ONE ×2 (00:10→23:11)
[2019-02-21] MEDS ORDERED: PHENobarbital 30 MG TABLET PO ONE ×3 (00:11→23:58)
[2019-02-21] MEDS ORDERED: TOPIRAMATE 200 MG TABLET (FP) PO ONE ×2 (00:11→23:12)
[2019-02-21 03:05] VITALS: BP 122/75; PULSE 71
== END 2019-02-21 02:10 | disposition home or self-care (01) ==
LOC: JER 19:49
DX: G40.901 Epilepsy, unspecified, not intractable, with status epilepticus (principal); S00.83XA Contusion of other part of head, initial encounter; W18.39XA Other fall on same level, initial encounter; Y93.89 Activity, other specified; Y92.038 Other place in apartment as the place of occurrence of the external cause; Y99.8 Other external cause status; Z86.69 Personal history of other diseases of the nervous system and sense organs
CPT/HCPCS: 70450-TC; 72125-TC; 73010-TC-FY; 99283-25

== ENCOUNTER 2019-06-22 11:51 | Inpatient (IN) | payer OTHER, SELFPAY ==
[2019-06-22] MEDS ORDERED: RAPID SEQUENCE INTUBATION KIT NR ONE (12:09)
--- NOTE | 2019-06-22 13:01 | PDOC ---
*Physical Exam - Vital Signs Last Vital Signs Temp Pulse Resp BP Pulse Ox 132 H 52 H 0/0 L 86 L 06/22/19 12:00 06/22/19 12:00 06/22/19 12:00 06/22/19 12:00 Discharge - Discharge Information Problems reviewed: Yes Clinical Impression/Diagnosis: Respiratory distress - Follow up/Referral - Patient Discharge Instructions - Post Discharge Activity Procedures - Central Line Central Line Lumen: single Central Line Position: femoral (R) Anesthesia: 2% Lidocaine Amount of anesthesia (ccs): 2 Complications: none Post Central Line Insertion: sutured, good blood return
--- NOTE | 2019-06-22 13:01 | PDOC ---
Attending Attestation - Resident Resident Name: KatlynRoxanne - ED Attending Attestation I have performed the following: I have examined & evaluated the patient, The case was reviewed & discussed with the resident, I agree w/resident's findings & plan, Exceptions are as noted - HPI HPI: 06/22/19 12:58 38y M hx of developmental delay, seizures presenting with a complaint of respiratory distress including fever, cough congestion,.. Per family the patient has been having URI-like symptoms for several days, yesterday he started breathing a little harder. Today she noticed him breathing very quickly, so they came to the ER for evaluation. Upon initial evaluation the patient was noted to be severely tachypneic he was brought to the main ER for further evaluation. Per family the patient's baseline mental status is that he does speak at baseline, hoewver has been not speaking as much. History otherwise limited There was difficulty obtaining IV access, multiple ultrasound-guided did IV attempts were made unsuccessfully, a femoral central line was initially attempted on the left but there appeared to be an obstruction and was unable to be cannulated, a femoral central line was placed on the right with out difficulty. Blood work was obtained, the patient was intubated using RSI with 20 of etomidate, 100 of succinylcholine using video laryngoscopy with confirmatory breath sounds. Confirmatory chest x-ray pending. The patient's sister was bedside and care was discussed with the sister. Apparently the patient's father had upper respiratory symptoms but has since resolved the patient's sister has also has been having respiratory symptoms and has a COVID test pending. - Physicial Exam PE: 06/22/19 13:01 GENERAL: The patient is awake, alert, and fully oriented, Nontoxic - in no acute distress. HEAD: Normocephalic, atraumatic. EYES: perioccular ecchymosis over R eye without any induration, fluctuance, crepitus, ENT: Normal voice, Moist mucous membranes. NECK: Normal range of motion, supple LUNGS: Severely tachypneic, with accessory muscle use, unable to speak HEART: tachycardic, normal S1 and S2 without murmur, rub or gallop. ABDOMEN: Soft, nontender, No guarding, no rebound. No CVA tenderness EXTREMITIES: Normal range of motion, no edema. Moving all 4 extremities spontaneously and symmetrically NEUROLOGICAL: No facial assymetry, Normal speech, PSYCH: Normal mood, normal affect. SKIN: Warm, Dry, normal turgor, - Critical Care Time Total Critical Care Time: 45 Critical Care Statement: The care of this patient involved high complexity decision making to prevent further life threatening deterioration of the patient's condition and/or to evaluate & treat vital organ system(s) failure or risk of failure. - Medical Decision Making 06/22/19 13:08 Ecchymosis over the right eye was sustained approximate 1 week ago status post seizure and head injury, was not evaluated by a physician due to the COVID pandemic. Suspect that the patient's respiratory rate may be related to bacterial versus viral pneumonia The patient was intubated due to respiratory status by dr. Potts under my direct supervision without any complications. A R Femoral central line for access after multipl failed attempts at peripheral access using US. Initial attempt at L femoral line was aborted due to resistance with dilation. central line performed by resident Katlyn under my direct supervision. COVID, sepsis order set was obtained Will obtain a CT head to rule out injury Heart Score/ECG Review - ECG Impressions Comment:: 06/22/19 14:04 Twelve-lead EKG was performed and reviewed by me. There is normal sinus rhythm with a heart rate of 103 The axis is normal. The intervals are normal. There is normal R wave progression There are no ST or T wave abnormalities. Impression: Sinus tachycardia Discharge - Discharge Information Problems reviewed: Yes Clinical Impression/Diagnosis: Respiratory distress, Acute respiratory failure with hypoxia, Lactic acid acidosis, Suspected COVID-19 virus infection Condition: Fair - Follow up/Referral - Patient Discharge Instructions - Post Discharge Activity
--- NOTE | 2019-06-22 13:11 | PDOC ---
History of Present Illness - General Chief Complaint: Respiratory Stated Complaint: COUGH/FEVER Time Seen by Provider: 06/22/19 12:04 - History of Present Illness Initial Comments: Kumar Hurtado is a 38yo man with a PMH of MR, epilepsy who presents with several days of worsening SOB, this morning with obvious respiratory distress. He presents by ambulance with his sister, who provides information. She states that Kumar has been ill for a few days with headache, fever, occasional cough. He was stared on azithromycin for suspected COVID on Saturday. His symptoms worsened by Saturday and over the weekend, but he did not seem to be having any difficulty breathing until yesterday. Last night, she noticed that he was breath ing rapidly. Today, his symptoms had clearly worsened. He woke at about 5am, and his sister states that she was counting his respiratory rate, which was about 45 per minute, and also noticed that he was grunting whie breathing. Kumar also endorsed pain with breathing. The sister called his PMD today and was told to bring him to the ED. On arrival to the ED, the pt was noted to have a respiratory rate in the 60's, labored breathing with grunting and accessory muscle use, and oxygen saturation at 56%. Past History - Past Medical History Allergies/Adverse Reactions: Allergies Allergy/AdvReac Type Severity Reaction Status Date / Time No Known Allergies Allergy Verified 06/22/19 12:24 Home Medications: Ambulatory Orders Topiramate [Topamax -] 200 mg PO TID #90 tablet 06/10/18 Lacosamide [Vimpat] 200 mg PO BID #60 tablet MDD 2 06/11/18 Phenobarbital - 60 mg PO BID #120 tablet MDD 4 06/11/18 levETIRAcetam [Keppra -] 1,000 mg PO BID 06/22/19 Anemia: No Asthma: No Cancer: No Cardiac Disorders: No COPD: No CHF: No Dementia: No Diabetes: No GI Disorders: No Disorders: No Liver Disease: No Seizures: Yes (s/p menengitis/ developmental delay) - Psycho Social/Smoking Cessation Hx Smoking History: Never smoked Have you smoked in the past 12 months: No Hx Alcohol Use: No Drug/Substance Use Hx: No Substance Use Type: None Hx Substance Use Treatment: No Review of Systems - Review of Systems Comments:: Could not obtain *Physical Exam - Vital Signs Last Vital Signs Temp Pulse Resp BP Pulse Ox 132 H 52 H 0/0 L 86 L 06/22/19 12:00 06/22/19 12:00 06/22/19 12:00 06/22/19 12:00 - Physical Exam General: Respiratory distress HEENT: Ecchymosis surrounding Rt eye. Both eyes open, EOMI, pupils equil Cards: Tachycardic, regular Pulm: Respiratory distress, markedly tachypnic in 60's, grunting, accessory muscle use Abd: Soft, nontender, nondistended Ext: Atraumatic. No LE edema. Moves all extremities. Unable to stand unaided Neuro: Awake, no verbal responses, CN grossly intact, motor/sensory grossly intact and symmetric Procedures - Central Line Central Line Lumen: triple Central Line Position: femoral (R) Anesthesia: 1% Lidocaine Amount of anesthesia (ccs): 3 Complications: Initial attempt in L femoral unsuccessful, catheter could not be passed over wire Post Central Line Insertion: sutured, good blood return Progress: Due to need for emergent intubation and inability to place peripheral IV access after multiple attempts, the decision was made to place a central venous catheter. The procedure was discussed with the patient's sister at bedside, who agrees with the plan. An initial attempt was made to place a triple lumen catheter in the left femoral vein. Ultrasound was used to identify the vein, and Seldinger technique was used to thread a wire into the vein. The wire was placed easily. However, the dilator bent during attempted insertion, and the catheter could not be placed. A second attempt was made by Dr Tsang in the right femoral vein which was then successfully placed on the 1st attempt. The patient tolerated the procedure well, and no immediate complications were appreciated. - Intubation Time of Intubation: 13:15 Blade used: Glidescope Tube Size (Fr): 7.5 Medications: Etomidate, Rocuronium Tube position @ lip (cm): 23 Tube position confirmed by: Direct visualization, CO2 detector, Chest x-ray, Breath sounds Breath Sounds after Intubation: equal Intubation Complications: no complications Post Intubation Xray: Yes ED Treatment Course - LABORATORY CBC & Chemistry Diagram: 06/22/19 13:00 06/22/19 13:00 Medical Decision Making - Medical Decision Making 06/22/19 13:02 Kumar Hurtado is a 38yo man with a PMH of MR, epilepsy who presents in acute respiratory distress with marked tachypnea and hypoxia following several days of gradually worsening WORKMAN, fever, cough. He has had breathing difficulty since yesterday but it noticeably worsened today according to his sister at bedside. - Sats in mid 50's on arrival, RR in 60's, grunting, accessory muscle use. - Difficult access, PIV could not be obtained. Emergent central line placement for RSI meds and labs. Initial attempt in left femoral vein w/ good blood return, wire passed easily, but dilator bent and catheter could not be placed. Attempt aborted. Second attempt in right femoral vein by Dr Tsang successful. Labs sent - Intubation w/ glidescope. 7.5 ETT placed on 1st attempt, visualized passing the cords, CO2 color change, b/l breath sounds appreciated. CXR ordered for confirmation. Etomidate 20 and rocuronium 50 given for RSI - NGT placed - COVID orders sent 06/22/19 15:09 - Labs reviewed. Notable for - VBG pH 7.19 - Markedly elevated lactate at 8.8 - Hypokalemic at 2.8. 30meq ordered - Anion gap 17 - LDH 800, ferritin 400, CK 900 - WBC 13 - Will repeat VBG, lactate, chemistry after pt has been stable on vent for sever al hours. Suspect acidosis is secondary to increased lactate, ultimately due to prolonged hypoxemia - NGT not seen on CXR, re-inserted - Pt awake, biting tube. Propofol increased to 6 with improvement. Pt still awake but appears comfortable. SBP in 90's, will monitor. Soft restraints to protect ETT - Spoke to ICU team, Dr Quinonez, will be admitted for further management 06/22/19 16:03 - Repeat labs ordered - CT head completed, radiology report pending. No bleed or fracture noted on ED read Seen with Dr Anna Potts PGY2 Discharge - Discharge Information Problems reviewed: Yes Clinical Impression/Diagnosis: Respiratory distress, Acute respiratory failure with hypoxia, Lactic acid acidosis, Suspected COVID-19 virus infection Condition: Fair - Admission Yes - Follow up/Referral - Patient Discharge Instructions - Post Discharge Activity
[2019-06-22] MEDS ORDERED: ETOMIDATE 40 MG/20 ML VIAL IVPUSH ONE (13:25)
[2019-06-22] MEDS ORDERED: ROCURONIUM BROMIDE 50 MG/5 ML VIAL IV ONE (13:26)
[2019-06-22] MEDS ORDERED: PROPOFOL 1,000,000 MCG/100 ML VIAL ONE (13:51)
[2019-06-22] MEDS: PROPOFOL 1,000,000 MCG/100 ML VIAL IVPB SCH (14:05)
[2019-06-22 14:06] LABS: BASO % 0.1 % (0-2.0); HEMATOCRIT 45.7 % (35.4-49); HEMOGLOBIN 14.9 GM/dL (11.7-16.9); LYMPH % 6.3 % (8-40); MCH 28.8 pg (25.7-33.7); MCHC 32.7 g/dl (32.0-35.9); MEAN CELL VOLUME 88.1 fl (80-96); MEAN PLT VOLUME 10.1 fl (7.5-11.1); MONO % 2.3 % (3.8-10.2); NEUT % 91.3 % (42.8-82.8); PLATELET COUNT 175 K/MM3 (134-434); RBC 5.19 M/mm3 (4.00-5.60); RDW 14.9 % (11.9-15.9); WHITE BLOOD COUNT 13.1 K/mm3 (4.0-10.0)
[2019-06-22 14:27] LABS: INR 1.05 (0.83-1.09); PROTHROMBIN TIME (PATIENT) 12.4 SEC (9.7-13.0)
[2019-06-22 14:30] LABS: ACTIVATED PTT 30.4 SECONDS (25.2-36.5)
[2019-06-22 14:32] LABS: ALBUMIN 2.7 g/dl (3.4-5.0); ALK PHOS 98 U/L (45-117); ANION GAP 17 MMOL/L (8-16); BILIRUBIN,DIRECT 0.3 mg/dL (0.0-0.2); BILIRUBIN,TOTAL 0.7 mg/dL (0.2-1); BLOOD UREA NITROGEN 7.4 mg/dL (7-18); CALCIUM 7.2 mg/dL (8.5-10.1); CHLORIDE 105 mmol/L (98-107); CO2 17 mmol/L (21-32); CREATININE 1.2 mg/dL (0.55-1.3); GLUCOSE,RANDOM 120 mg/dL (74-106); LDH 832 U/L (87-246); SGOT/AST 94 U/L (15-37); SGPT/ALT 58 U/L (13-61); SODIUM 139 mmol/L (136-145); TOT PROT 6.4 g/dl (6.4-8.2)
[2019-06-22 14:38] LABS: POTASSIUM 2.8 mmol/L (3.5-5.1)
[2019-06-22 14:51] LABS: VENOUS BASE EXCESS -11.3 mmol/L (-2-2); VENOUS PC02 45.8 mmHg (38-52)
[2019-06-22 14:53] LABS: VENOUS PO2 < 49 mmHg (28-48)
[2019-06-22 14:54] LABS: VENOUS PH 7.19 (7.31-7.41)
[2019-06-22] MEDS ORDERED: KCL 10 MEQ IVPB 30 MEQ/300 ML INFUS.BAG IVPB ONE (15:14)
[2019-06-22 15:25] LABS: ANISOCYTOSIS 0; MACROCYTOSIS 0; PLATELET ESTIMATE NORMAL
[2019-06-22] MEDS: KCL 10 MEQ IVPB 10 MEQ/100 ML INFUS.BAG IVPB SCH ×2 (15:26→17:15)
--- NOTE | 2019-06-22 15:42 | HP ---
CHIEF COMPLAINT: PCP: HISTORY OF PRESENT ILLNESS: ER course was notable for: (1) (2) (3) Recent Travel: PAST MEDICAL HISTORY: PAST SURGICAL HISTORY: Social History: Smoking: Alcohol: Drugs: Allergies No Known Allergies Allergy (Verified 06/22/19 12:24) HOME MEDICATIONS: Home Medications Medication Instructions Recorded Topiramate [Topamax -] 200 mg PO TID #90 tablet 06/10/18 Lacosamide [Vimpat] 200 mg PO BID #60 tablet MDD 2 06/11/18 Phenobarbital - 60 mg PO BID #120 tablet MDD 4 06/11/18 levETIRAcetam [Keppra -] 1,000 mg PO BID 06/22/19 REVIEW OF SYSTEMS CONSTITUTIONAL: Absent: fever, chills, diaphoresis, generalized weakness, malaise, loss of appetite, weight change HEENT: Absent: rhinorrhea, nasal congestion, throat pain, throat swelling, difficulty swallowing, mouth swelling, ear pain, eye pain, visual changes CARDIOVASCULAR: Absent: chest pain, syncope, palpitations, irregular heart rate, lightheadedness, peripheral edema RESPIRATORY: Absent: cough, shortness of breath, dyspnea with exertion, orthopnea, wheezing, stridor, hemoptysis GASTROINTESTINAL: Absent: abdominal pain, abdominal distension, nausea, vomiting, diarrhea, constipation, melena, hematochezia GENITOURINARY: Absent: dysuria, frequency, urgency, hesitancy, hematuria, flank pain, genital pain MUSCULOSKELETAL: Absent: myalgia, arthralgia, joint swelling, back pain, neck pain SKIN: Absent: rash, itching, pallor HEMATOLOGIC/IMMUNOLOGIC: Absent: easy bleeding, easy bruising, lymphadenopathy, frequent infections ENDOCRINE: Absent: unexplained weight gain, unexplained weight loss, heat intolerance, cold intolerance NEUROLOGIC: Absent: headache, focal weakness or paresthesias, dizziness, unsteady gait, sei zure, mental status changes, bladder or bowel incontinence PSYCHIATRIC: Absent: anxiety, depression, suicidal or homicidal ideation, hallucinations. PHYSICAL EXAMINATION Vital Signs - 24 hr 06/22/19 06/22/19 06/22/19 12:00 13:08 13:35 Pulse Rate 132 H Pulse Rate [ 104 H Apical] Respiratory 52 H 20 20 Rate Blood Pressure 0/0 L Blood Pressure 127/86 [Left Arm] O2 Sat by Pulse 86 L 100 Oximetry (%) GENERAL: Awake, alert, and fully oriented, in no acute distress. HEAD: Normal with no signs of trauma. EYES: Pupils equal, round and reactive to light, extraocular movements intact, sclera anicteric, conjunctiva clear. No lid lag. EARS, NOSE, THROAT: Ears normal, nares patent, oropharynx clear without exudates. Moist mucous membranes. NECK: Normal range of motion, supple without lymphadenopathy, JVD, or masses. LUNGS: Breath sounds equal, clear to auscultation bilaterally. No wheezes, and no crackles. No accessory muscle use. HEART: Regular rate and rhythm, normal S1 and S2 without murmur, rub or gallop. ABDOMEN: Soft, nontender, not distended, normoactive bowel sounds, no guarding, no rebound, no masses. No hepatomegaly or splenomegaly. MUSCULOSKELETAL: Normal range of motion at all joints. No bony deformities or tenderness. No CVA tenderness. UPPER EXTREMITIES: 2+ pulses, warm, well-perfused. No cyanosis. No clubbing. No peripheral edema. LOWER EXTREMITIES: 2+ pulses, warm, well-perfused. No calf tenderness. No peripheral edema. NEUROLOGICAL: Cranial nerves II-XII intact. Normal speech. Normal gait. PSYCHIATRIC: Cooperative. Good eye contact. Appropriate mood and affect. SKIN: Warm, dry, normal turgor, no rashes or lesions noted, normal capillary refill. Laboratory Results - last 24 hr 06/22/19 06/22/19 06/22/19 13:00 13:00 13:00 WBC 13.1 H RBC 5.19 Hgb 14.9 Hct 45.7 MCV 88.1 MCH 28.8 MCHC 32.7 RDW 14.9 Plt Count 175 MPV 10.1 Absolute Neuts (auto) 11.9 H Neutrophils % 91.3 H D Neutrophils % (Manual) 72.3 Band Neutrophils % 23.8 Lymphocytes % 6.3 L D Lymphocytes % (Manual) 3.9 L Monocytes % 2.3 L Monocytes % (Manual) 0 L Eosinophils % 0.0 D Eosinophils % (Manual) 0.0 Basophils % 0.1 Basophils % (Manual) 0.0 Myelocytes % (Man) 0 Promyelocytes % (Man) 0 Blast Cells % (Manual) 0 Nucleated RBC % 0 Metamyelocytes 0 Hypochromia 0 Platelet Estimate Normal Polychromasia 0 Poikilocytosis 0 Anisocytosis 0 Microcytosis 0 Macrocytosis 0 PT with INR 12.40 INR 1.05 PTT (Actin FS) 30.4 VBG pH POC VBG pCO2 POC VBG pO2 VBG HCO3 VBG O2 Sat (Portillo) VBG Base Excess Sodium 139 Potassium 2.8 L* Chloride 105 Carbon Dioxide 17 L Anion Gap 17 H BUN 7.4 Creatinine 1.2 Est GFR (CKD-EPI)AfAm 89.00 Est GFR (CKD-EPI)NonAf 76.79 Random Glucose 120 H Lactic Acid Calcium 7.2 L Ferritin 393.8 H Total Bilirubin 0.7 Direct Bilirubin 0.3 H AST 94 H ALT 58 Alkaline Phosphatase 98 LD Total 832 H Creatine Kinase 903 H Creatine Kinase Index 0.3 CK-MB (CK-2) 3.4 Troponin I < 0.02 Total Protein 6.4 Albumin 2.7 L 06/22/19 06/22/19 13:00 13:00 WBC RBC Hgb Hct MCV MCH MCHC RDW Plt Count MPV Absolute Neuts (auto) Neutrophils % Neutrophils % (Manual) Band Neutrophils % Lymphocytes % Lymphocytes % (Manual) Monocytes % Monocytes % (Manual) Eosinophils % Eosinophils % (Manual) Basophils % Basophils % (Manual) Myelocytes % (Man) Promyelocytes % (Man) Blast Cells % (Manual) Nucleated RBC % Metamyelocytes Hypochromia Platelet Estimate Polychromasia Poikilocytosis Anisocytosis Microcytosis Macrocytosis PT with INR INR PTT (Actin FS) VBG pH 7.19 L* POC VBG pCO2 45.8 POC VBG pO2 < 49 H VBG HCO3 16.7 L VBG O2 Sat (Portillo) 54.0 L VBG Base Excess -11.3 L Sodium Potassium Chloride Carbon Dioxide Anion Gap BUN Creatinine Est GFR (CKD-EPI)AfAm Est GFR (CKD-EPI)NonAf Random Glucose Lactic Acid 8.8 H* Calcium Ferritin Total Bilirubin Direct Bilirubin AST ALT Alkaline Phosphatase LD Total Creatine Kinase Creatine Kinase Index CK-MB (CK-2) Troponin I Total Protein Albumin ASSESSMENT/PLAN: ATTENDING PHYSICIAN STATEMENT I saw and evaluated the patient. I reviewed the resident's note and discussed the case with the resident. I agree with the resident's findings and plan as documented. SUBJECTIVE: OBJECTIVE: ASSESSMENT AND PLAN:
[2019-06-22 17:07] LABS: EPI CELLS 15 /uL (0-25.1); HYALINE CASTS 1 /uL (0-3.1); PH,URINE 6.5 (5.0-8.0); URINE APPEARANCE CLEAR; URINE BACTERIA 10 /uL (0-1359); URINE BILIRUBIN NEGATIVE (NEGATIVE); URINE COLOR YELLOW; URINE GLUCOSE (UA) NEGATIVE (NEGATIVE); URINE KETONE NEGATIVE (NEGATIVE); URINE LEUK ESTERASE NEGATIVE (NEGATIVE); URINE NITRITE NEGATIVE (NEGATIVE); URINE PROTEIN 1+ (NEGATIVE); URINE RBC 3 /uL (0-23.9); URINE WBC 10 /uL (0-25.8)
[2019-06-22 17:48] LABS: VENOUS BASE EXCESS -1.8 mmol/L (-2-2); VENOUS PC02 37.3 mmHg (38-52); VENOUS PH 7.39 (7.31-7.41)
[2019-06-22 18:33] LABS: ALBUMIN 2.4 g/dl (3.4-5.0); BILIRUBIN,TOTAL 0.6 mg/dL (0.2-1); BLOOD UREA NITROGEN 8.4 mg/dL (7-18); CALCIUM 7.2 mg/dL (8.5-10.1); CREATININE 0.8 mg/dL (0.55-1.3); POTASSIUM 3.3 mmol/L (3.5-5.1); TOT PROT 5.8 g/dl (6.4-8.2)
[2019-06-22] MEDS ORDERED: MORPHINE SULFATE/0.9% NACL/PF 100 MG/100 ML BAG ONE (21:36)
[2019-06-22] MEDS: MORPHINE SULFATE/0.9% NACL/PF 100 MG/100 ML BAG IVPB SCH (21:50)
[2019-06-22] MEDS: MUPIROCIN 2% TOPICAL OINTMENT FOR DECOLONIZATION NS SCH (21:51)
[2019-06-22] MEDS: CHLORHEXIDINE GLUCONATE 4% CLEANSER FOR DECOLONIZATION TP SCH (21:55)
[2019-06-23 06:15] LABS: ARTERIAL BLD GAS O2 SATURATION 93.8 % (95-98); ARTERIAL BLOOD GAS BASE EXCESS -1.6 mmol/L (-2-2); ARTERIAL BLOOD GAS PCO2 35.2 mmHg (35-45); ARTERIAL BLOOD GAS pH 7.41 (7.35-7.45)
[2019-06-23 06:55] LABS: ALLENS TEST POSITIVE
[2019-06-23 09:02] LABS: ALBUMIN 2.2 g/dl (3.4-5.0); ALK PHOS 89 U/L (45-117); ANION GAP 8 MMOL/L (8-16); BILIRUBIN,TOTAL 0.8 mg/dL (0.2-1); BLOOD UREA NITROGEN 9.1 mg/dL (7-18); CHLORIDE 109 mmol/L (98-107); CO2 23 mmol/L (21-32); CREATININE 0.6 mg/dL (0.55-1.3); GLUCOSE,RANDOM 101 mg/dL (74-106); MAGNESIUM 2.6 mg/dL (1.8-2.4); N-TERMINAL BNP 106.8 pg/ml (5-125); PHOSPHOROUS 2.3 mg/dL (2.5-4.9); POTASSIUM 3.3 mmol/L (3.5-5.1); SGOT/AST 100 U/L (15-37); SGPT/ALT 53 U/L (13-61); SODIUM 139 mmol/L (136-145); TOT PROT 5.7 g/dl (6.4-8.2)
--- NOTE | 2019-06-23 09:10 | EKG ---
Test Reason : Blood Pressure : / mmHG Vent. Rate : 103 BPM Atrial Rate : 103 BPM P-R Int : 128 ms QRS Dur : 090 ms QT Int : 340 ms P-R-T Axes : 032 002 009 degrees QTc Int : 445 ms SINUS TACHYCARDIA OTHERWISE NORMAL ECG WHEN COMPARED WITH ECG OF 06-JUN-2018 10:53, NO SIGNIFICANT CHANGE WAS FOUND Confirmed by MD ZIMMERMAN PENG ([id number]) on 06/23/2019 9:10:09 AM Referred By: Confirmed By:JORI ZIMMERMAN MD
[2019-06-23 09:18] LABS: HEMOGLOBIN 14.2 GM/dL (11.7-16.9); MCH 28.7 pg (25.7-33.7); MCHC 33.1 g/dl (32.0-35.9); MEAN CELL VOLUME 86.8 fl (80-96); RBC 4.96 M/mm3 (4.00-5.60)
[2019-06-23 09:23] LABS: CALCIUM 6.9 mg/dL (8.5-10.1)
[2019-06-23] MEDS: levETIRAcetam 500 MG/5 ML INJECTION VIAL IVPB SCH ×2 (09:32→21:30)
[2019-06-23] MEDS: ENOXAPARIN NA (PORCINE) 80 MG/0.8 ML DISP.SYRIN SQ SCH ×2 (09:56→22:00)
[2019-06-23] MEDS: PHENobarbital 30 MG TABLET PO SCH ×2 (09:56→21:31)
[2019-06-23] MEDS ORDERED: ENOXAPARIN NA (PORCINE) 40 MG/0.4 ML DISP.SYRIN SQ SCH (10:00)
[2019-06-23] MEDS: Lacosamide 200 MG/20 ML VIAL IVPB SCH ×2 (10:10→22:30)
[2019-06-23] MEDS: KCL 10 MEQ IVPB 10 MEQ/100 ML INFUS.BAG IVPB SCH ×2 (10:23→12:07)
[2019-06-23] MEDS: ACETAMINOPHEN 325 MG TABLET (FP) PO PRN (10:23)
[2019-06-23] MEDS ORDERED: HYDROXYCHLOROQUINE 200 MG/8 ML ORAL SUSPENSION PO SCH (11:12)
[2019-06-23 11:36] LABS: ANISOCYTOSIS 0; MACROCYTOSIS 0; PLATELET ESTIMATE NORMAL
[2019-06-23] MEDS ORDERED: DEXTROSE 5%-WATER - 50 ML IVPB ONE ×2 (12:03→12:04)
[2019-06-23] MEDS ORDERED: cefTRIAXone SODIUM 1 GM VIAL ONE ×2 (12:03→12:04)
[2019-06-23] MEDS: MUPIROCIN 2% TOPICAL OINTMENT FOR DECOLONIZATION NS SCH ×2 (12:06→22:00)
[2019-06-23] MEDS: CEFTRIAXONE 1 GM in DEXTROSE 5%-WATER - 50 ML IVPB SCH (12:07)
[2019-06-23] MEDS: TOPIRAMATE 200 MG TABLET PO SCH ×2 (13:07→21:31)
[2019-06-23 13:56] LABS: MEAN PLT VOLUME 10.2 fl (7.5-11.1); PLATELET COUNT 156 K/MM3 (134-434)
[2019-06-23 13:57] LABS: WHITE BLOOD COUNT 15.1 K/mm3 (4.0-10.0)
[2019-06-23] MEDS: PROPOFOL 1,000,000 MCG/100 ML VIAL IVPB SCH (15:34)
--- NOTE | 2019-06-23 16:28 | PN ---
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 (short form) - Note 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: Patient seen and examined in ICU-2. Patient remains intubated and sedated on Propofol 30 mcg and Versed 2 mg/hr Vent 20/450/60/+10 ABG Results ABG pH 7.41 (7.35-7.45) 06/23/19 05:15 ABG pCO2 at Pt Temp 35.2 mmHg (35-45) 06/23/19 05:15 ABG pO2 at Pt Temp 72.0 mmHg (80-100) L 06/23/19 05:15 ABG HCO3 21.9 mmol/L (22-27) L 06/23/19 05:15 ABG O2 Sat (Measured) 93.8 % (95-98) L 06/23/19 05:15 ABG O2 Content 18.0 % vol 06/23/19 05:15 ABG Base Excess -1.6 mmol/L (-2-2) 06/23/19 05:15 Vital Signs Period Temp Pulse Resp BP Sys/Ortiz Pulse Ox Last 24 Hr 96.4 F-103 F 74-102 20-22 85-105/54-70 95-100 Intake & Output 06/20/19 06/21/19 06/22/19 06/23/19 23:59 23:59 23:59 23:59 Intake Total 31 485 Output Total 900 175 Balance -869 310 Weight 77 kg Active Medications Acetaminophen (Tylenol -) 650 mg PO Q4H PRN PRN Reason: FEVER Last Admin: 06/23/19 10:23 Dose: 650 mg Documented by: Chlorhexidine Gluconate (Hibiclens For Decolonization -) 1 applic TP HS [facility] Last Admin: 06/22/19 21:55 Dose: 1 applic Documented by: Enoxaparin Sodium (Lovenox -) 80 mg SQ BID [facility] Last Admin: 06/23/19 09:56 Dose: 80 mg Documented by: Hydroxychloroquine Sulfate (Plaquenil Suspension) 200 mg PO BID [facility] Hydroxychloroquine Sulfate (Plaquenil Suspension) 400 mg PO ONCE ONE Stop: 06/23/19 22:01 Propofol (Diprivan -) 1,000,000 mcg in 100 mls @ 2.313 mls/hr IVPB TITR TIKI; Protocol Last Admin: 06/23/19 15:34 Dose: 35 mcg/kg/min, 16.193 mls/hr Documented by: Morphine Sulfate (Morphine 100mg/100ml-0.9% Nacl) 100 mg in 100 mls @ 1 mls/hr IVPB TITR [facility]; Protocol Last Admin: 06/22/19 21:50 Dose: 1 mg/hr, 1 mls/hr Documented by: Ceftriaxone Sodium 1 gm/ (Dextrose) 50 mls @ 200 mls/hr IVPB DAILY [facility]; Protocol Last Admin: 06/23/19 12:07 Dose: 200 mls/hr Documented by: Lacosamide (Vimpat Injection -) 200 mg IVPB BID [facility] Last Admin: 06/23/19 10:10 Dose: 200 mg Documented by: Levetiracetam (Keppra Injection -) 1,000 mg IVPB BID [facility] Last Admin: 06/23/19 09:32 Dose: 1,000 mg Documented by: Mupirocin (Bactroban Ointment (For Decolonization) -) 1 applic NS BID [facility] Stop: 06/27/19 21:59 Last Admin: 06/23/19 12:06 Dose: 1 applic Documented by: Phenobarbital (Phenobarbital -) 60 mg PO BID [facility] Last Admin: 06/23/19 09:56 Dose: 60 mg Documented by: Topiramate (Topamax -) 200 mg PO TID [facility] Last Admin: 06/23/19 13:07 Dose: 200 mg Documented by: Vancomycin HCl (Vancomycin (Pre-Docked)) 1,000 mg IVPB DAILY [facility]; Protocol Zinc Sulfate (Orazinc -) 220 mg PO BID [facility] Cardiovascular: Regular Rate and Rhythm Respiratory: Vented, few scattered rhonchi Gastrointestinal: Normal Bowel Sounds in all 4 quadrants, Soft Musculoskeletal: WNL Extremities: WNL, trace generalized edema Neurological: Sedated, RASS-4 CBC, BMP 06/23/19 07:10 06/23/19 07:10 Microbiology 06/22/19 13:00 Blood - Peripheral Venous Blood Culture - Preliminary NO GROWTH OBTAINED AFTER 24 HOURS, INCUBATION TO CONTINUE FOR 4 DAYS. 06/22/19 13:00 Blood - Peripheral Venous Blood Culture - Preliminary Pending Organism A/ 38y M hx of developmental delay, seizures, admitted to ICU with acute respiratory failure likely secondary to COVID-19/PNA in the setting of fever, cough congestion. Seizure disorder Acute hypoxic respiratory failure MR P/ -Sedate for vent synchrony; RASS goal-4 -Start Plaquenil for COVID/PNA -Pulmonary toileting -EKG for QTC monitoring -Start Vanco and Rocephin for positive blood cultures -Consult ID -Trend and replete electrolytes, keep Mg>2, K>4 -Start home seizure medications, consider consulting neuro if patient will start having seizures (last seizure 06/15 as per sister) -Lovenox for AC -PPI for PUD ppx -SCDs Juliana Blancas ACNP [id number]
--- NOTE | 2019-06-23 16:58 | CONSULT ---
Consultation: REQUESTING PROVIDER: Dr. Roxanne Potts CONSULT REQUEST: We have been asked to medically evaluate this patient for acute hypoxic respiratory failure. . HISTORY OF PRESENT ILLNESS: 38M w/hx intellectual disability, epilepsy BIBEMS for worsening shortness of breath, tachypnea. He is accompanied by his sister who he lives with, and provides history. She reports that for the last several days he has had cough/fever and was started on azithromycin by his PCP three days ago. She reports being cautioned to return if he began to experience apparent shortness of breath. Last night she noted that he appeared short of breath, and this morning found that he appeared to be breathing quickly and grunting. After counting a respiratory rate of 44 breaths per minute called the PCP who instructed her to present to the ED. On arrival to the ED, the pt was noted to have a respiratory rate in the 60's, labored breathing with grunting and accessory muscle use, and oxygen saturation at 56% and was subsequently intubated. He is not requiring pressors at this time. He is unable to contribute to history secondary to intubation, intellectual disability. REVIEW OF SYSTEMS: Unable to obtain (intubated) PHYSICAL EXAMINATION Vital Signs - 24 hr 06/22/19 06/22/19 06/22/19 18:00 20:37 21:34 Temperature 97.5 F L 97.0 F L Pulse Rate 85 90 Respiratory 21 H 20 22 H Rate Blood Pressure 101/70 101/70 O2 Sat by Pulse Oximetry (%) 06/22/19 06/23/19 06/23/19 23:00 00:00 01:00 Temperature 99.8 F H Pulse Rate 95 H Respiratory 20 Rate Blood Pressure 98/65 O2 Sat by Pulse 99 98 Oximetry (%) 06/23/19 06/23/19 06/23/19 02:00 02:59 03:16 Temperature 99.0 F Pulse Rate 99 H Respiratory 20 20 Rate Blood Pressure 102/60 O2 Sat by Pulse 98 Oximetry (%) 06/23/19 06/23/19 06/23/19 03:48 05:00 05:30 Temperature 98.0 F 99.5 F Pulse Rate 97 H 102 H Respiratory 20 20 Rate Blood Pressure 100/61 105/65 O2 Sat by Pulse 96 Oximetry (%) 06/23/19 06/23/19 06/23/19 07:00 09:55 10:00 Temperature 103 F H Pulse Rate 90 99 H Respiratory 20 20 21 H Rate Blood Pressure 105/65 O2 Sat by Pulse 98 98 95 Oximetry (%) 06/23/19 06/23/19 06/23/19 12:00 14:00 16:00 Temperature 100 F H 98.8 F 98.8 F Pulse Rate 89 77 74 Respiratory 22 H 20 20 Rate Blood Pressure 99/59 L 93/54 L 94/57 L O2 Sat by Pulse 97 99 Oximetry (%) 06/23/19 16:04 Temperature Pulse Rate 74 Respiratory Rate Blood Pressure O2 Sat by Pulse 100 Oximetry (%) See attending note. Intubated. Laboratory Results - last 24 hr 06/22/19 06/22/19 06/22/19 12:21 16:30 16:30 WBC RBC Hgb Hct MCV MCH MCHC RDW Plt Count MPV Neutrophils % Neutrophils % (Manual) Band Neutrophils % Lymphocytes % Lymphocytes % (Manual) Monocytes % (Manual) Eosinophils % (Manual) Basophils % (Manual) Myelocytes % (Man) Promyelocytes % (Man) Blast Cells % (Manual) Nucleated RBC % Metamyelocytes Hypochromia Platelet Estimate Polychromasia Poikilocytosis Anisocytosis Microcytosis Macrocytosis Anticoagulation Therapy Puncture Site ABG pH ABG pCO2 at Pt Temp ABG pO2 at Pt Temp ABG HCO3 ABG O2 Sat (Measured) ABG O2 Content ABG Base Excess Yousuf Test VBG pH POC VBG pCO2 POC VBG pO2 VBG HCO3 VBG O2 Sat (Portillo) VBG Base Excess Patient On Oxygen O2 Delivery Device Oxygen Flow Rate Vent Mode Vent Rate Mechanical Rate Pressure Support Vent Sodium 138 Potassium 3.3 L Chloride 107 Carbon Dioxide 22 Anion Gap 9 BUN 8.4 Creatinine 0.8 Est GFR (CKD-EPI)AfAm 132.27 Est GFR (CKD-EPI)NonAf 114.12 Random Glucose 107 H Lactic Acid 2.7 H* Calcium 7.2 L Phosphorus Magnesium Total Bilirubin 0.6 AST 98 H ALT 54 Alkaline Phosphatase 85 Creatine Kinase Creatine Kinase Index CK-MB (CK-2) Troponin I B-Natriuretic Peptide Total Protein 5.8 L Albumin 2.4 L Urine Color Yellow Urine Appearance Clear Urine pH 6.5 Ur Specific Cochran 1.010 Urine Protein 1+ H Urine Glucose (UA) Negative Urine Ketones Negative Urine Blood Negative Urine Nitrite Negative Urine Bilirubin Negative Urine Urobilinogen 1.0 Ur Leukocyte Esterase Negative Urine WBC (Auto) 10 Urine RBC (Auto) 3 Urine Casts (Auto) 1 U Epithel Cells (Auto) 15 Urine Bacteria (Auto) 10 06/22/19 06/22/19 06/23/19 17:20 22:00 05:15 WBC RBC Hgb Hct MCV MCH MCHC RDW Plt Count MPV Neutrophils % Neutrophils % (Manual) Band Neutrophils % Lymphocytes % Lymphocytes % (Manual) Monocytes % (Manual) Eosinophils % (Manual) Basophils % (Manual) Myelocytes % (Man) Promyelocytes % (Man) Blast Cells % (Manual) Nucleated RBC % Metamyelocytes Hypochromia Platelet Estimate Polychromasia Poikilocytosis Anisocytosis Microcytosis Macrocytosis Anticoagulation Therapy No Result Required. Puncture Site Right radial ABG pH 7.41 ABG pCO2 at Pt Temp 35.2 ABG pO2 at Pt Temp 72.0 L ABG HCO3 21.9 L ABG O2 Sat (Measured) 93.8 L ABG O2 Content 18.0 ABG Base Excess -1.6 Yousuf Test Positive VBG pH 7.39 POC VBG pCO2 37.3 L POC VBG pO2 49.0 H VBG HCO3 22.1 L VBG O2 Sat (Portillo) 72.2 VBG Base Excess -1.8 Patient On Oxygen Yes O2 Delivery Device Vent Oxygen Flow Rate 60% Vent Mode 450 Vent Rate 10 Mechanical Rate A/c Pressure Support Vent 20 Sodium Potassium Chloride Carbon Dioxide Anion Gap BUN Creatinine Est GFR (CKD-EPI)AfAm Est GFR (CKD-EPI)NonAf Random Glucose Lactic Acid 2.3 H* Calcium Phosphorus Magnesium Total Bilirubin AST ALT Alkaline Phosphatase Creatine Kinase Creatine Kinase Index CK-MB (CK-2) Troponin I B-Natriuretic Peptide Total Protein Albumin Urine Color Urine Appearance Urine pH Ur Specific Cochran Urine Protein Urine Glucose (UA) Urine Ketones Urine Blood Urine Nitrite Urine Bilirubin Urine Urobilinogen Ur Leukocyte Esterase Urine WBC (Auto) Urine RBC (Auto) Urine Casts (Auto) U Epithel Cells (Auto) Urine Bacteria (Auto) 06/23/19 06/23/19 06/23/19 07:10 07:10 07:10 WBC 15.1 H RBC 4.96 Hgb 14.2 Hct 43.0 MCV 86.8 MCH 28.7 MCHC 33.1 RDW 15.0 Plt Count 156 MPV 10.2 Neutrophils % No Result Required. Neutrophils % (Manual) 74.7 Band Neutrophils % 8.1 Lymphocytes % No Result Required. Lymphocytes % (Manual) 16.2 D Monocytes % (Manual) 0 L Eosinophils % (Manual) 1.0 D Basophils % (Manual) 0.0 Myelocytes % (Man) 0 Promyelocytes % (Man) 0 Blast Cells % (Manual) 0 Nucleated RBC % 0 Metamyelocytes 0 Hypochromia 0 Platelet Estimate Normal Polychromasia 1+ Poikilocytosis 1+ Anisocytosis 0 Microcytosis 0 Macrocytosis 0 Anticoagulation Therapy Puncture Site ABG pH ABG pCO2 at Pt Temp ABG pO2 at Pt Temp ABG HCO3 ABG O2 Sat (Measured) ABG O2 Content ABG Base Excess Yousuf Test VBG pH POC VBG pCO2 POC VBG pO2 VBG HCO3 VBG O2 Sat (Portillo) VBG Base Excess Patient On Oxygen O2 Delivery Device Oxygen Flow Rate Vent Mode Vent Rate Mechanical Rate Pressure Support Vent Sodium 139 Potassium 3.3 L Chloride 109 H Carbon Dioxide 23 Anion Gap 8 BUN 9.1 Creatinine 0.6 Est GFR (CKD-EPI)AfAm 148.87 Est GFR (CKD-EPI)NonAf 128.44 Random Glucose 101 Lactic Acid 2.0 Calcium 6.9 L* Phosphorus 2.3 L Magnesium 2.6 H Total Bilirubin 0.8 AST 100 H ALT 53 Alkaline Phosphatase 89 Creatine Kinase 517 H Creatine Kinase Index 0.4 CK-MB (CK-2) 2.4 Troponin I < 0.02 B-Natriuretic Peptide 106.8 Total Protein 5.7 L Albumin 2.2 L Urine Color Urine Appearance Urine pH Ur Specific Cochran Urine Protein Urine Glucose (UA) Urine Ketones Urine Blood Urine Nitrite Urine Bilirubin Urine Urobilinogen Ur Leukocyte Esterase Urine WBC (Auto) Urine RBC (Auto) Urine Casts (Auto) U Epithel Cells (Auto) Urine Bacteria (Auto) Active Medications Generic Name Dose Route Start Last Admin Trade Name Freq PRN Reason Stop Dose Admin Acetaminophen 650 mg 06/22/19 23:14 06/23/19 10:23 Tylenol - PO 650 mg Q4H PRN Administration FEVER Chlorhexidine Gluconate 1 applic 06/22/19 22:00 06/22/19 21:55 Hibiclens For Decolonization - TP 1 applic HS TIKI Administration Enoxaparin Sodium 80 mg 06/23/19 10:00 06/23/19 09:56 Lovenox - SQ 80 mg BID TIKI Administration Hydroxychloroquine Sulfate 200 mg 06/24/19 10:00 Plaquenil Suspension PO BID TIKI Hydroxychloroquine Sulfate 400 mg 06/23/19 22:00 Plaquenil Suspension PO 06/23/19 22:01 ONCE ONE Propofol 1,000,000 mcg in 100 mls @ 2.313 mls/hr 06/22/19 14:00 06/23/19 15:34 Diprivan - IVPB 35 mcg/kg/min TITR TIKI 16.193 mls/hr Administration Protocol 5 MCG/KG/MIN Morphine Sulfate 100 mg in 100 mls @ 1 mls/hr 06/22/19 21:30 06/22/19 21:50 Morphine 100mg/100ml-0.9% Nacl IVPB 1 mg/hr TITR TIKI 1 mls/hr Administration Protocol 1 MG/HR Ceftriaxone Sodium 1 gm/ 50 mls @ 200 mls/hr 06/23/19 10:00 06/23/19 12:07 Dextrose IVPB 200 mls/hr DAILY TIKI Administration Protocol Lacosamide 200 mg 06/23/19 10:00 06/23/19 10:10 Vimpat Injection - IVPB 200 mg BID TIKI Administration Levetiracetam 1,000 mg 06/23/19 10:00 06/23/19 09:32 Keppra Injection - IVPB 1,000 mg BID TIKI Administration Mupirocin 1 applic 06/22/19 22:00 06/23/19 12:06 Bactroban Ointment (For Decolonization) - NS 06/27/19 21:59 1 applic BID TIKI Administration Phenobarbital 60 mg 06/23/19 10:00 06/23/19 09:56 Phenobarbital - PO 60 mg BID TIKI Administration Topiramate 200 mg 06/23/19 14:00 06/23/19 13:07 Topamax - PO 200 mg TID TIKI Administration Vancomycin HCl 1,000 mg 06/24/19 17:00 Vancomycin (Pre-Docked) IVPB DAILY@1700 TIKI Protocol Vancomycin HCl 1,000 mg 06/23/19 17:00 Vancomycin (Pre-Docked) IVPB 06/23/19 17:01 DAILY@1700 ONE Zinc Sulfate 220 mg 06/23/19 22:00 Orazinc - PO BID TIKI ASSESSMENT/PLAN: 38M w/hx epilepsy, intellectual disability presenting with acute hypoxic respiratory failure, likely secondary to COVID-19, now intubated. Dispo: Patient requires ICU level of care at this time. We will continue to follow the patient. Thank you for this consultative opportunity. Visit type - Emergency Visit Emergency Visit: Yes ED Registration Date: 06/22/19 Care time: The patient presented to the Emergency Department on the above date and was hospitalized for further evaluation of their emergent condition. - New Patient This patient is new to me today: Yes Date on this admission: 06/23/19 - Critical Care Critical Care patient: Yes Total Critical Care Time (in minutes): 30 Critical Care Statement: The care of this patient involved high complexity decision making to prevent further life threatening deterioration of the patient's condition and/or to evaluate & treat vital organ system(s) failure or risk of failure. ATTENDING PHYSICIAN STATEMENT I saw and evaluated the patient. I reviewed the resident's note and discussed the case with the resident. I agree with the resident's findings and plan as documented. SUBJECTIVE: OBJECTIVE: ASSESSMENT AND PLAN:
[2019-06-23] MEDS ORDERED: VANCOMYCIN 1 GM in D5W (PRE-DOCKED) 1,000 MG/250 ML IVPB ONE (17:00)
--- NOTE | 2019-06-23 17:54 | PN ---
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 (short form) - Note 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: ID consult dictated imp/reccd hypoxemic resp failure bilateral infiltrates probable covid 19 bacteremia- ?real cover for cap with rocephin/doxy add plaquenil for probalbe covid vancomycin for bacteremia f/u cultures consider for convalescent plasma- d/w alterations expert approx 40 minutes was spent in the care of this critically ill icu patient Problem List - Problems (1) Suspected COVID-19 virus infection Code(s): R68.89 - OTHER GENERAL SYMPTOMS AND SIGNS (2) Acute respiratory failure with hypoxia Code(s): J96.01 - ACUTE RESPIRATORY FAILURE WITH HYPOXIA (3) Bacteremia Code(s): R78.81 - BACTEREMIA
--- NOTE | 2019-06-23 18:41 | CONS ---
INFECTIOUS DISEASE CONSULTATION DATE OF CONSULTATION: DATE OF DICTATION: 06/23/2019 HISTORY: This is a 38-year-old man who has a history of seizures and intellectual disability, lives at home with his family. He has had worsening shortness of breath. The history is from the sister. For the last several days, he has had cough and fever. He was started on azithromycin by his PCP 3 days ago. He was noted to have shortness of breath, and this morning he was noted to be grunting. She called the PCP because his respiratory rate was 44. He was brought to the ER. He was noted to be in respiratory failure with an O2 saturation of 56%, and he was subsequently intubated. He is in the PACU now. He is on no pressors. He is on sedation, and I am asked to see him for a positive blood culture. He has been started on hydroxychloroquine for possible COVID-19 disease as he has bilateral infiltrates on x-ray. PAST MEDICAL HISTORY: Notable for the mild mental retardation and epilepsy. Notable for a seizure disorder. He had meningitis and developed mental delay as a child. ALLERGIES: He has no known drug allergies. MEDICATIONS: He takes Topamax, Vimpat, phenobarbital, Keppra as an outpatient. PSYCHOSOCIAL HISTORY: No history of cigarette, alcohol, or substance use. He lives with his family. PHYSICAL EXAMINATION: General: He is intubated and sedated. Vital Signs: Temperature is 98, his maximum temperature is 103. HEENT: He apparently sustained a fall, and he has a black eye. He is normocephalic. He has a black eye on his right eye. He is orally intubated. Heart: Regular rate and rhythm. Lungs: Diminished breath sounds at the bases. Abdomen: Soft, nontender. Extremities: Without edema. DIAGNOSTIC DATA: His white count on admission was 13, this morning is 15, hemoglobin 14.2, platelets are 156, INR is 1.05. BUN 9, creatinine 0.6. Lactic acid was 8.8, is now 2. AST is 100. His CK is 517. His ferritin is 393, and LDH is 832. Urinalysis is negative. His COVID serology is pending. Blood cultures were sent, and 1 of 4 bottles has gram-positive cocci in clusters. He had a head CT that shows no evidence of intracranial process. He has encephalomalacia along the inferior aspect of the temporal occipital lobes bilaterally. In summary, this is a 38-year-old man with developmental delay, seizure disorder, acute hypoxemic respiratory failure requiring intubation, bilateral infiltrates, probable COVID-19, bacteremia. I am not sure it is real with 1 of 4 cultures. I would cover for community-acquired pneumonia with Rocephin and doxycycline. Would add Plaquenil for probable COVID. Vancomycin for bacteremia. Follow up cultures. Can consider convalescent plasma once the PCR is confirmed. This was discussed with the clinical services consultant as well; 40 minutes was spent in the care of this critically ill patient. ELIZABETH MORA M.D. [id number] MTDD
[2019-06-23] MEDS: ZINC SULFATE 220 MG CAPSULE (FP) PO SCH (21:31)
[2019-06-23] MEDS: CHLORHEXIDINE GLUCONATE 4% CLEANSER FOR DECOLONIZATION TP SCH (22:00)
[2019-06-23] MEDS: DOXYCYCLINE INJECTION 100 MG in DEXTROSE 5%-WATER - 100 ML IVPB SCH (22:00)
[2019-06-23] MEDS ORDERED: HYDROXYCHLOROQUINE 200 MG/8 ML ORAL SUSPENSION PO ONE (22:00)
[2019-06-24 05:48] LABS: ARTERIAL BLD GAS O2 SATURATION 95.3 % (95-98); ARTERIAL BLOOD GAS BASE EXCESS -1.2 mmol/L (-2-2); ARTERIAL BLOOD GAS PCO2 36.5 mmHg (35-45); ARTERIAL BLOOD GAS PO2 80.9 mmHg (80-100); ARTERIAL BLOOD GAS pH 7.41 (7.35-7.45)
[2019-06-24] MEDS: VANCOMYCIN 1 GRAM (PRE-DOCKED) 1,000 MG/250 ML BAG IVPB SCH ×2 (06:05→17:39)
[2019-06-24] MEDS: TOPIRAMATE 200 MG TABLET PO SCH ×3 (06:05→21:13)
[2019-06-24 07:20] LABS: BASO % 0.3 % (0-2.0); EOS % 0.5 % (0-4.5); HEMATOCRIT 38.8 % (35.4-49); HEMOGLOBIN 13.5 GM/dL (11.7-16.9); MCH 30.3 pg (25.7-33.7); MCHC 34.8 g/dl (32.0-35.9); MEAN PLT VOLUME 9.9 fl (7.5-11.1); NEUT % 81.2 % (42.8-82.8); PLATELET COUNT 188 K/MM3 (134-434); RBC 4.46 M/mm3 (4.00-5.60); RDW 14.4 % (11.9-15.9); WHITE BLOOD COUNT 8.6 K/mm3 (4.0-10.0)
[2019-06-24 07:40] LABS: ALBUMIN 1.9 g/dl (3.4-5.0); BLOOD UREA NITROGEN 7.1 mg/dL (7-18); CREATININE 0.6 mg/dL (0.55-1.3); MAGNESIUM 2.7 mg/dL (1.8-2.4); PHOSPHOROUS 2.2 mg/dL (2.5-4.9); POTASSIUM 3.2 mmol/L (3.5-5.1); TOT PROT 5.2 g/dl (6.4-8.2)
[2019-06-24] MEDS ORDERED: POTASSIUM CHLORIDE ORAL LIQUID 20 MEQ/15 ML PO ONE (07:46)
[2019-06-24] MEDS: ACETAMINOPHEN 325 MG TABLET (FP) PO PRN (08:00)
[2019-06-24] MEDS: KCL 10 MEQ IVPB 10 MEQ/100 ML INFUS.BAG IVPB SCH ×3 (08:21→10:30)
[2019-06-24 08:31] LABS: CALCIUM 6.4 mg/dL (8.5-10.1)
[2019-06-24] MEDS ORDERED: cefTRIAXone SODIUM 1 GM VIAL ONE (09:44)
[2019-06-24] MEDS ORDERED: DEXTROSE 5%-WATER - 50 ML IVPB ONE (09:44)
[2019-06-24] MEDS ORDERED: CALCIUM GLUCONATE 10% - 1,000 MG/10 ML VIAL IVPB ONE (09:45)
[2019-06-24] MEDS ORDERED: VANCOMYCIN 1 GM in D5W (PRE-DOCKED) 1,000 MG/250 ML IVPB SCH ×2 (10:00→17:00)
[2019-06-24] MEDS: ZINC SULFATE 220 MG CAPSULE (FP) PO SCH ×2 (10:29→21:13)
[2019-06-24] MEDS: PHENobarbital 30 MG TABLET PO SCH ×2 (10:29→21:13)
[2019-06-24] MEDS: CALCIUM CHLORIDE 10% 1 GM/10 ML *VIAL IVPB ONE ×2 (10:29→10:33)
[2019-06-24] MEDS: levETIRAcetam 500 MG/5 ML INJECTION VIAL IVPB SCH ×2 (10:29→21:27)
[2019-06-24] MEDS: ENOXAPARIN NA (PORCINE) 80 MG/0.8 ML DISP.SYRIN SQ SCH ×2 (10:29→21:13)
[2019-06-24] MEDS: MUPIROCIN 2% TOPICAL OINTMENT FOR DECOLONIZATION NS SCH ×2 (10:29→21:14)
[2019-06-24] MEDS: HYDROXYCHLOROQUINE 200 MG/8 ML ORAL SUSPENSION PO SCH ×2 (10:30→21:13)
[2019-06-24] MEDS: PANTOPRAZOLE SODIUM 40 MG VIAL IVPUSH SCH (10:30)
[2019-06-24] MEDS: CEFTRIAXONE 1 GM in DEXTROSE 5%-WATER - 50 ML IVPB SCH (10:30)
[2019-06-24] MEDS: DOXYCYCLINE INJECTION 100 MG in DEXTROSE 5%-WATER - 100 ML IVPB SCH (10:30)
[2019-06-24] MEDS: Lacosamide 200 MG/20 ML VIAL IVPB SCH ×2 (10:30→21:13)
[2019-06-24] MEDS: NAPH,MB-DB/K PH,MBDB POWDER PACKET PO SCH ×2 (10:30→21:13)
--- NOTE | 2019-06-24 10:41 | PN ---
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 (short form) - Note 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: Patient seen and examined in ICU-2. Patient remains intubated and sedated on Propofol 35 mcg and Versed 2 mg/hr Vent 24/450/60/+10 ABG Results ABG pH 7.41 (7.35-7.45) 06/24/19 04:50 ABG pCO2 at Pt Temp 36.5 mmHg (35-45) 06/24/19 04:50 ABG pO2 at Pt Temp 80.9 mmHg (80-100) 06/24/19 04:50 ABG HCO3 22.5 mmol/L (22-27) 06/24/19 04:50 ABG O2 Sat (Measured) 95.3 % (95-98) 06/24/19 04:50 ABG O2 Content 18.2 % vol 06/24/19 04:50 ABG Base Excess -1.2 mmol/L (-2-2) 06/24/19 04:50 Vital Signs Period Temp Pulse Resp BP Sys/Ortiz Pulse Ox Last 24 Hr 97.7 F-101.8 F 74-105 20-23 93-122/54-64 92-100 Intake & Output 06/21/19 06/22/19 06/23/19 06/24/19 23:59 23:59 23:59 23:59 Intake Total 31 934 592 Output Total 900 875 800 Balance -869 59 -208 Weight 77 kg Active Medications Acetaminophen (Tylenol -) 650 mg PO Q4H PRN PRN Reason: FEVER Last Admin: 06/24/19 08:00 Dose: 650 mg Documented by: Chlorhexidine Gluconate (Hibiclens For Decolonization -) 1 applic TP HS [facility] Last Admin: 06/23/19 22:00 Dose: 1 applic Documented by: Enoxaparin Sodium (Lovenox -) 80 mg SQ BID [facility] Last Admin: 06/24/19 10:29 Dose: 80 mg Documented by: Hydroxychloroquine Sulfate (Plaquenil Suspension) 200 mg PO BID [facility] Stop: 06/27/19 22:01 Last Admin: 06/24/19 10:30 Dose: 200 mg Documented by: Propofol (Diprivan -) 1,000,000 mcg in 100 mls @ 2.313 mls/hr IVPB TITR [facility]; Protocol Last Admin: 06/23/19 15:34 Dose: 35 mcg/kg/min, 16.193 mls/hr Documented by: Morphine Sulfate (Morphine 100mg/100ml-0.9% Nacl) 100 mg in 100 mls @ 1 mls/hr IVPB TITR [facility]; Protocol Last Admin: 06/22/19 21:50 Dose: 1 mg/hr, 1 mls/hr Documented by: Ceftriaxone Sodium 1 gm/ (Dextrose) 50 mls @ 200 mls/hr IVPB DAILY [facility]; Protocol Last Admin: 06/24/19 10:30 Dose: 200 mls/hr Documented by: Vancomycin HCl (Vancomycin (Pre-Docked)) 1,000 mg in 250 mls @ 166.667 mls/hr IVPB Q12H [facility]; Protocol Last Admin: 06/24/19 06:05 Dose: 166.667 mls/hr Documented by: Doxycycline Hyclate 100 mg/ (Dextrose) 100 mls @ 100 mls/hr IVPB BID [facility] Last Admin: 06/24/19 10:30 Dose: 100 mls/hr Documented by: Potassium Chloride (Potassium Chloride 10 Meq Premix Ivpb -) 10 meq in 100 mls @ 100 mls/hr IVPB Q60M [facility] Stop: 06/24/19 10:59 Last Admin: 06/24/19 10:30 Dose: 100 mls/hr Documented by: Lacosamide (Vimpat Injection -) 200 mg IVPB BID [facility] Last Admin: 06/24/19 10:30 Dose: 200 mg Documented by: Levetiracetam (Keppra Injection -) 1,000 mg IVPB BID [facility] Last Admin: 06/24/19 10:29 Dose: 1,000 mg Documented by: Mupirocin (Bactroban Ointment (For Decolonization) -) 1 applic NS BID [facility] Stop: 06/27/19 21:59 Last Admin: 06/24/19 10:29 Dose: 1 applic Documented by: Pantoprazole Sodium (Protonix Iv) 40 mg IVPUSH DAILY [facility] Last Admin: 06/24/19 10:30 Dose: 40 mg Documented by: Phenobarbital (Phenobarbital -) 60 mg PO BID [facility] Last Admin: 06/24/19 10:29 Dose: 60 mg Documented by: Potassium Phos/Sodium Phos (Phos-Nak Packet -) 2 packet PO BID [facility] Stop: 06/24/19 23:59 Last Admin: 06/24/19 10:30 Dose: 2 packet Documented by: Topiramate (Topamax -) 200 mg PO TID [facility] Last Admin: 06/24/19 06:05 Dose: 200 mg Documented by: Zinc Sulfate (Orazinc -) 220 mg PO BID [facility] Last Admin: 06/24/19 10:29 Dose: 220 mg Documented by: Cardiovascular: Regular Rate and Rhythm Respiratory: Vented, few scattered rhonchi Gastrointestinal: Normal Bowel Sounds in all 4 quadrants, Soft Musculoskeletal: WNL Extremities: WNL, trace generalized edema Neurological: Sedated, RASS-4 CBC, BMP 06/24/19 06:00 06/24/19 06:00 Microbiology 06/24/19 00:01 Urine For Antigen Detection Legionella Antigen - Final 06/24/19 00:01 Urine For Antigen Detection Streptococcus pneumoniae Antigen (M - Final 06/22/19 13:00 Blood - Peripheral Venous Blood Culture - Preliminary Pending Organism 06/22/19 13:00 Blood - Peripheral Venous Blood Culture - Preliminary Pending Organism A/ 38y M hx of developmental delay, seizures, admitted to ICU with acute respiratory failure likely secondary to COVID-19/PNA in the setting of fever, cough congestion. Seizure disorder Acute hypoxic respiratory failure MR Strep PNA P/ -Sedate for vent synchrony; RASS goal-4 -Continue Plaquenil for COVID/PNA -Pulmonary toileting -EKG for QTC monitoring -Change Rocephine to 2 g daily -D/c doxy -Appreciate ID recs -Trend and replete electrolytes, keep Mg>2, K>4 -Continue home seizure medications, consider consulting neuro if patient will start having seizures (last seizure 06/15 as per sister) -Lovenox for AC -PPI for PUD ppx -SCDs -Patient being referred for convalescent plasma transfusion Juliana Blancas ACNP [id number]
--- NOTE | 2019-06-24 11:25 | PN ---
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 (short form) - Note 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: intubated and sedated Vital Signs Period Temp Pulse Resp BP Sys/Ortiz Pulse Ox Last 24 Hr 97.7 F-101.8 F 77-105 20-23 93-122/55-64 92-100 cor-rrr llungs decreased bs at bases abd soft, nt ext no edema CBC, BMP 06/24/19 06:00 06/24/19 06:00 Laboratory Tests 06/22/19 12:00 COVID-19 (LEROY) Detected H Microbiology 06/22/19 13:00 Blood - Peripheral Venous Blood Culture - Preliminary Staphylococcus Species 06/24/19 00:01 Urine For Antigen Detection Legionella Antigen - Final 06/24/19 00:01 Urine For Antigen Detection Streptococcus pneumoniae Antigen (M - Final- positive 06/22/19 13:00 Blood - Peripheral Venous Blood Culture - Preliminary Pending Organism imp/reccd hypoxemic resp failure bilateral infiltrates probable covid 19 bacteremia- ?real positive pneumococcal antigen consider for convalescent plasma- vancomycin and rocephin d/c doxycycline plaquenil d/w logistics research engineer
[2019-06-24] MEDS: PROPOFOL 1,000,000 MCG/100 ML VIAL IVPB SCH (14:00)
[2019-06-24] MEDS ORDERED: methylPREDNISolone NA SUCC 40 MG/1 ML VIAL IVPUSH ONE (14:03)
[2019-06-24] MEDS: MORPHINE SULFATE/0.9% NACL/PF 100 MG/100 ML BAG IVPB SCH (21:13)
[2019-06-24] MEDS: CHLORHEXIDINE GLUCONATE 4% CLEANSER FOR DECOLONIZATION TP SCH (21:14)
[2019-06-25] MEDS ORDERED: PROPOFOL 1,000,000 MCG/100 ML VIAL ONE (03:39)
[2019-06-25] MEDS: TOPIRAMATE 200 MG TABLET PO SCH ×3 (06:56→22:00)
[2019-06-25] MEDS: VANCOMYCIN 1 GRAM (PRE-DOCKED) 1,000 MG/250 ML BAG IVPB SCH ×2 (06:57→18:16)
[2019-06-25 07:03] LABS: ARTERIAL BLOOD GAS BASE EXCESS -3.2 mmol/L (-2-2); ARTERIAL BLOOD GAS PCO2 37.2 mmHg (35-45); ARTERIAL BLOOD GAS PO2 102 mmHg (80-100); ARTERIAL BLOOD GAS pH 7.37 (7.35-7.45)
[2019-06-25 07:06] LABS: ALLENS TEST POSITIVE
[2019-06-25 08:23] LABS: HEMOGLOBIN 12.8 GM/dL (11.7-16.9); MCH 29.2 pg (25.7-33.7); MCHC 33.6 g/dl (32.0-35.9); MEAN CELL VOLUME 87.1 fl (80-96); MEAN PLT VOLUME 9.3 fl (7.5-11.1); PLATELET COUNT 235 K/MM3 (134-434); RBC 4.37 M/mm3 (4.00-5.60); RDW 14.7 % (11.9-15.9); WHITE BLOOD COUNT 7.9 K/mm3 (4.0-10.0)
[2019-06-25 09:02] LABS: ALBUMIN 1.8 g/dl (3.4-5.0); BILIRUBIN,TOTAL 1.5 mg/dL (0.2-1); BLOOD UREA NITROGEN 14.9 mg/dL (7-18); CALCIUM 7.3 mg/dL (8.5-10.1); CREATININE 0.6 mg/dL (0.55-1.3); POTASSIUM 3.6 mmol/L (3.5-5.1); TOT PROT 5.2 g/dl (6.4-8.2)
[2019-06-25] MEDS ORDERED: DEXTROSE 5%-WATER 100 ML IVPB ONE (09:44)
[2019-06-25] MEDS: MUPIROCIN 2% TOPICAL OINTMENT FOR DECOLONIZATION NS SCH ×2 (10:25→22:00)
[2019-06-25] MEDS: ENOXAPARIN NA (PORCINE) 80 MG/0.8 ML DISP.SYRIN SQ SCH ×2 (10:26→22:00)
[2019-06-25] MEDS: PANTOPRAZOLE SODIUM 40 MG VIAL IVPUSH SCH (10:26)
[2019-06-25] MEDS: HYDROXYCHLOROQUINE 200 MG/8 ML ORAL SUSPENSION PO SCH (10:26)
[2019-06-25] MEDS: CEFTRIAXONE 2 GM in DEXTROSE 5%-WATER 100 ML IVPB SCH (10:26)
[2019-06-25] MEDS: ZINC SULFATE 220 MG CAPSULE (FP) PO SCH ×2 (10:26→22:00)
[2019-06-25] MEDS: AMINO ACIDS/PROTEIN HYDROLYS 30 ML LIQUID.PKT PO SCH (10:26)
[2019-06-25] MEDS: PHENobarbital 30 MG TABLET PO SCH ×2 (10:26→22:00)
[2019-06-25] MEDS: levETIRAcetam 500 MG/5 ML INJECTION VIAL IVPB SCH ×2 (10:26→22:00)
[2019-06-25] MEDS: methylPREDNISolone NA SUCC 40 MG/1 ML VIAL IVPUSH SCH ×2 (10:27→22:00)
[2019-06-25] MEDS: Lacosamide 200 MG/20 ML VIAL IVPB SCH ×2 (10:27→22:00)
--- NOTE | 2019-06-25 11:22 | PN ---
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 (short form) - Note 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: remains intubated and sedated Vital Signs Period Temp Pulse Resp BP Sys/Ortiz Pulse Ox Last 24 Hr 97.7 F-99.9 F 62-92 20-20 64-103/47-64 93-100 cor-rrr llungs decreased bs at bases abd soft,nt ext no edema CBC, BMP 06/25/19 07:50 06/25/19 07:50 Microbiology 06/22/19 13:00 Blood - Peripheral Venous Blood Culture - Preliminary Staphylococcus Coagulase Neg 06/24/19 00:01 Urine - Urine Caceres Urine Culture - Final NO GROWTH OBTAINED 06/22/19 13:00 Blood - Peripheral Venous Blood Culture - Preliminary Staphylococcus Species 06/24/19 00:01 Urine For Antigen Detection Legionella Antigen - Final 06/24/19 00:01 Urine For Antigen Detection Streptococcus pneumoniae Antigen (M - Final imp/reccd hypoxemic resp failure bilateral infiltrates covid 19 positive bacteremia- continue vancomycin f/u levels, await ID of second blood culture positive pneumococcal antigen vancomycin and rocephin plaquenil ?convalescent plasma
--- NOTE | 2019-06-25 12:58 | PN ---
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 (short form) - Note 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: 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s Pulm/CCM Pt seen and examined in the ICU. On Vanco and Ceftriaxone for + coag neg staph. Blood cultures being resent. Comfortable on vent. Active Medications Generic Name Dose Route Start Last Admin Trade Name Freq PRN Reason Stop Dose Admin Acetaminophen 650 mg 06/22/19 23:14 06/24/19 08:00 Tylenol - PO 650 mg Q4H PRN Administration FEVER Amino Acids 30 ml 06/25/19 10:00 06/25/19 10:26 Prosource No Carb Liquid Pkt PO 30 ml DAILY T[facility]I Administration Chlorhexidine Gluconate 1 applic 06/22/19 22:00 06/24/19 21:14 Hibiclens For Decolonization - TP 1 applic HS TIKI Administration Enoxaparin Sodium 80 mg 06/23/19 10:00 06/25/19 10:26 Lovenox - SQ 80 mg BID [facility] Administration Hydroxychloroquine Sulfate 200 mg 06/24/19 10:00 06/25/19 10:26 Plaquenil Suspension PO 06/27/19 22:01 200 mg BID [facility] Administration Propofol 1,000,000 mcg in 100 mls @ 2.313 mls/hr 06/22/19 14:00 06/24/19 14:00 Diprivan - IVPB 35 mcg/kg/min TITR [facility] 16.193 mls/hr Administration Protocol 5 MCG/KG/MIN Morphine Sulfate 100 mg in 100 mls @ 1 mls/hr 06/22/19 21:30 06/24/19 21:13 Morphine 100mg/100ml-0.9% Nacl IVPB 2 mg/hr TITR [facility] 2 mls/hr Administration Protocol 1 MG/HR Vancomycin HCl 1,000 mg in 250 mls @ 166.667 mls/hr 06/24/19 06:00 06/25/19 06:57 Vancomycin (Pre-Docked) IVPB 166.667 mls/hr Q12H [facility] Administration Protocol Ceftriaxone Sodium 2 gm/ 100 mls @ 200 mls/hr 06/25/19 10:00 06/25/19 10:26 Dextrose IVPB 200 mls/hr DAILY [facility] Administration Protocol Lacosamide 200 mg 06/23/19 10:00 06/25/19 10:27 Vimpat Injection - IVPB 200 mg BID [facility] Administration Levetiracetam 1,000 mg 06/23/19 10:00 06/25/19 10:26 Keppra Injection - IVPB 1,000 mg BID [facility] Administration Methylprednisolone Sodium Succinate 40 mg 06/25/19 10:00 06/25/19 10:27 Solu-Medrol - IVPUSH 40 mg BID [facility] Administration Mupirocin 1 applic 06/22/19 22:00 06/25/19 10:25 Bactroban Ointment (For Decolonization) - NS 06/27/19 21:59 1 applic BID [facility] Administration Pantoprazole Sodium 40 mg 06/24/19 10:00 06/25/19 10:26 Protonix Iv IVPUSH 40 mg DAILY [facility] Administration Phenobarbital 60 mg 06/23/19 10:00 06/25/19 10:26 Phenobarbital - PO 60 mg BID [facility] Administration Topiramate 200 mg 06/23/19 14:00 06/25/19 06:56 Topamax - PO 200 mg TID [facility] Administration Zinc Sulfate 220 mg 06/23/19 22:00 06/25/19 10:26 Orazinc - PO 220 mg BID [facility] Administration Vent AC/VC 28/380/60/10 Plat 27 Vital Signs Period Temp Pulse Resp BP Sys/Ortiz Pulse Ox Last 24 Hr 97.6 F-99.9 F 62-86 20-20 64-98/47-64 97-100 Intake & Output 06/22/19 06/23/19 06/24/19 06/25/19 23:59 23:59 23:59 23:59 Intake Total 31 934 2027.2 447 Output Total 289 596 5584 100 Balance -869 59 727.2 347 Weight 77 kg 76.657 kg Gen: WNWF male, comfortable, orally intubated HEENT: Clear sclera CV:Regular Rate and Rhythm Lung: Rales bilat GI: Soft, ND, NT Ext: WWP, + edema Neuro: Sedated, RASS-4 CBC, BMP 06/25/19 07:50 06/25/19 07:50 Microbiology 06/24/19 00:01 Urine For Antigen Detection Legionella Antigen - Final 06/24/19 00:01 Urine For Antigen Detection Streptococcus pneumoniae Antigen (M - Final 06/22/19 13:00 Blood - Peripheral Venous Blood Culture - Preliminary Pending Organism 06/22/19 13:00 Blood - Peripheral Venous Blood Culture - Preliminary Pending Organism A/ 38y M hx of developmental delay, seizures, now with acute respiratory failure cata leon secondary to COVID-19/PNA. Intubated and sedated. Seizure disorder Acute hypoxic respiratory failure MR Strep PNA P/ -Sedate for vent synchrony; RASS goal-4 -Continue Plaquenil for COVID/PNA -Pulmonary toileting -EKG for QTC monitoring -Change Rocephen to 2 g daily -Appreciate ID recs -Cont vanc for + coag neg Staph bacteremia -Repeat blood cultures daily til clear -Trend and replete electrolytes, keep Mg>2, K>4 -Continue home seizure medications, consider consulting neuro if patient will start having seizures (last seizure 06/15 as per sister) -Lovenox for AC -PPI for PUD ppx -SCDs -Cont steroids for COVID treatment -Patient being referred for convalescent plasma transfusion Marilee Manning, ACNP [id number]
[2019-06-25] MEDS: PROPOFOL 1,000,000 MCG/100 ML VIAL IVPB SCH (14:17)
[2019-06-25 14:27] LABS: ARTERIAL BLD GAS O2 SATURATION 96.3 % (95-98); ARTERIAL BLOOD GAS BASE EXCESS -2.7 mmol/L (-2-2); ARTERIAL BLOOD GAS PCO2 34.8 mmHg (35-45); ARTERIAL BLOOD GAS PO2 89.6 mmHg (80-100)
[2019-06-25 14:41] LABS: ALLENS TEST POSITIVE
[2019-06-25] MEDS ORDERED: FUROSEMIDE 40 MG/4 ML INJECTABLE VIAL IVPUSH ONE (17:53)
[2019-06-25] MEDS: CHLORHEXIDINE GLUCONATE 4% CLEANSER FOR DECOLONIZATION TP SCH (22:00)
--- NOTE | 2019-06-26 04:13 | PN ---
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 (short form) - Note 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: ET Tube noted to be 4cm high on wet read of CXR. Tube advanced 2 cm.
[2019-06-26] MEDS: TOPIRAMATE 200 MG TABLET PO SCH ×3 (07:02→22:00)
[2019-06-26] MEDS: VANCOMYCIN 1 GRAM (PRE-DOCKED) 1,000 MG/250 ML BAG IVPB SCH (07:02)
[2019-06-26 07:36] LABS: HEMATOCRIT 41.1 % (35.4-49); HEMOGLOBIN 13.7 GM/dL (11.7-16.9); MCH 29.4 pg (25.7-33.7); MCHC 33.3 g/dl (32.0-35.9); MEAN CELL VOLUME 88.4 fl (80-96); MEAN PLT VOLUME 9.3 fl (7.5-11.1); PLATELET COUNT 276 K/MM3 (134-434); RBC 4.66 M/mm3 (4.00-5.60); RDW 14.8 % (11.9-15.9); WHITE BLOOD COUNT 8.2 K/mm3 (4.0-10.0)
[2019-06-26 07:44] LABS: INR 0.97 (0.83-1.09); PROTHROMBIN TIME (PATIENT) 11.4 SEC (9.7-13.0)
[2019-06-26 07:46] LABS: ACTIVATED PTT 35.6 SECONDS (25.2-36.5)
[2019-06-26 08:14] LABS: ALBUMIN 1.9 g/dl (3.4-5.0); BILIRUBIN,DIRECT 0.5 mg/dL (0.0-0.2); BILIRUBIN,TOTAL 0.8 mg/dL (0.2-1); BLOOD UREA NITROGEN 18.6 mg/dL (7-18); CALCIUM 7.2 mg/dL (8.5-10.1); CREATININE 0.5 mg/dL (0.55-1.3); MAGNESIUM 3.1 mg/dL (1.8-2.4); PHOSPHOROUS 2.6 mg/dL (2.5-4.9); POTASSIUM 4.3 mmol/L (3.5-5.1); TOT PROT 5.8 g/dl (6.4-8.2)
[2019-06-26 08:59] LABS: ARTERIAL BLD GAS O2 SATURATION 98.8 % (95-98); ARTERIAL BLOOD GAS BASE EXCESS -1.4 mmol/L (-2-2); ARTERIAL BLOOD GAS PCO2 37.8 mmHg (35-45); ARTERIAL BLOOD GAS PO2 187 mmHg (80-100)
[2019-06-26 09:04] LABS: ALLENS TEST POSITIVE
[2019-06-26] MEDS ORDERED: DEXTROSE 5%-WATER 100 ML IVPB ONE (09:12)
[2019-06-26] MEDS: MUPIROCIN 2% TOPICAL OINTMENT FOR DECOLONIZATION NS SCH ×2 (10:37→20:00)
[2019-06-26] MEDS: levETIRAcetam 500 MG/5 ML INJECTION VIAL IVPB SCH ×2 (10:37→22:00)
[2019-06-26] MEDS: ENOXAPARIN NA (PORCINE) 80 MG/0.8 ML DISP.SYRIN SQ SCH ×2 (10:37→22:00)
[2019-06-26] MEDS: ZINC SULFATE 220 MG CAPSULE (FP) PO SCH ×2 (10:38→22:00)
[2019-06-26] MEDS: methylPREDNISolone NA SUCC 40 MG/1 ML VIAL IVPUSH SCH ×2 (10:38→22:00)
[2019-06-26] MEDS: Lacosamide 200 MG/20 ML VIAL IVPB SCH ×2 (10:38→22:00)
[2019-06-26] MEDS: PHENobarbital 30 MG TABLET PO SCH ×2 (10:38→22:00)
[2019-06-26] MEDS: PANTOPRAZOLE SODIUM 40 MG VIAL IVPUSH SCH (10:38)
[2019-06-26] MEDS: CEFTRIAXONE 2 GM in DEXTROSE 5%-WATER 100 ML IVPB SCH (10:38)
[2019-06-26] MEDS: AMINO ACIDS/PROTEIN HYDROLYS 30 ML LIQUID.PKT PO SCH (10:38)
--- NOTE | 2019-06-26 11:15 | PN ---
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 (short form) - Note 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: remains intubated and sedated s/p convalescent plasma transfusion 06/24 Vital Signs Period Temp Pulse Resp BP Sys/Ortiz Pulse Ox Last 24 Hr 97.2 F-98.3 F 48-67 20-27 92-106/51-67 93-100 cor-rrr lungs decreased bs at bases abd soft, nt ext no edema CBC, BMP 06/26/19 06:49 06/26/19 06:49 Microbiology 06/22/19 13:00 Blood - Peripheral Venous Blood Culture - Preliminary Staphylococcus Species 06/22/19 13:00 Blood - Peripheral Venous Blood Culture - Preliminary Staphylococcus Coagulase Neg 06/24/19 00:01 Urine - Urine Caceres Urine Culture - Final NO GROWTH OBTAINED 06/24/19 00:01 Urine For Antigen Detection Legionella Antigen - Final 06/24/19 00:01 Urine For Antigen Detection Streptococcus pneumoniae Antigen (M - Final imp/reccd hypoxemic resp failure bilateral infiltrates covid 19 positive-s/p convalescent plasma, continue plaquenil, monitor qtc bacteremia- continue vancomycin f/u levels, await ID of second blood culture- different from first- will d/c vancomyin positive pneumococcal antigen continue rocephin
--- NOTE | 2019-06-26 11:19 | PN ---
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 (short form) - Note 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: Patient seen and examined in AICU 24 HRS EVENTS: -remains intubated/sedated -improving oxygenation -s/p convalescent serum -repeat BC pending VENT SETTINGS: 380/70/12 Pplat 35 ABG 7.4/38/187 P:F 267 Vent changed to: 26/340/60/10 (PBW 68; 340=5cc) Pplat 30 Active Medications Generic Name Dose Route Start Last Admin Trade Name Freq PRN Reason Stop Dose Admin Acetaminophen 650 mg 06/22/19 23:14 06/24/19 08:00 Tylenol - PO 650 mg Q4H PRN Administration FEVER Amino Acids 30 ml 06/25/19 10:00 06/26/19 10:38 Prosource No Carb Liquid Pkt PO 30 ml DAILY [facility] Administration Chlorhexidine Gluconate 1 applic 06/22/19 22:00 06/25/19 22:00 Hibiclens For Decolonization - TP 1 applic HS [facility] Administration Enoxaparin Sodium 80 mg 06/23/19 10:00 06/26/19 10:37 Lovenox - SQ 80 mg BID [facility] Administration Propofol 1,000,000 mcg in 100 mls @ 2.313 mls/hr 06/22/19 14:00 06/25/19 14:17 Diprivan - IVPB 35 mcg/kg/min TITR [facility] 16.193 mls/hr Administration Protocol 5 MCG/KG/MIN Morphine Sulfate 100 mg in 100 mls @ 1 mls/hr 06/22/19 21:30 06/24/19 21:13 Morphine 100mg/100ml-0.9% Nacl IVPB 2 mg/hr TITR [facility] 2 mls/hr Administration Protocol 1 MG/HR Vancomycin HCl 1,000 mg in 250 mls @ 166.667 mls/hr 06/24/19 06:00 06/26/19 07:02 Vancomycin (Pre-Docked) IVPB 166.667 mls/hr Q12H [facility] Administration Protocol Ceftriaxone Sodium 2 gm/ 100 mls @ 200 mls/hr 06/25/19 10:00 06/26/19 10:38 Dextrose IVPB 200 mls/hr DAILY [facility] Administration Protocol Lacosamide 200 mg 06/23/19 10:00 06/26/19 10:38 Vimpat Injection - IVPB 200 mg BID [facility] Administration Levetiracetam 1,000 mg 06/23/19 10:00 06/26/19 10:37 Keppra Injection - IVPB 1,000 mg BID [facility] Administration Methylprednisolone Sodium Succinate 40 mg 06/25/19 10:00 06/26/19 10:38 Solu-Medrol - IVPUSH 40 mg BID [facility] Administration Mupirocin 1 applic 06/22/19 22:00 06/26/19 10:37 Bactroban Ointment (For Decolonization) - NS 06/27/19 21:59 1 applic BID [facility] Administration Pantoprazole Sodium 40 mg 06/24/19 10:00 06/26/19 10:38 Protonix Iv IVPUSH 40 mg DAILY [facility] Administration Phenobarbital 60 mg 06/23/19 10:00 06/26/19 10:38 Phenobarbital - PO 60 mg BID [facility] Administration Topiramate 200 mg 06/23/19 14:00 06/26/19 07:02 Topamax - PO 200 mg TID [facility] Administration Zinc Sulfate 220 mg 06/23/19 22:00 06/26/19 10:38 Orazinc - PO 220 mg BID [facility] Administration Vital Signs Period Temp Pulse Resp BP Sys/Ortiz Pulse Ox Last 24 Hr 97.2 F-98.3 F 48-67 20-27 92-106/51-67 93-100 Intake & Output 06/23/19 06/24/19 06/25/19 06/26/19 23:59 23:59 23:59 23:59 Intake Total 934 2027.2 1798 1087 Output Total 875 2451 759 3766 Balance 59 727.2 1398 -653 Weight 76.657 kg ABG Results ABG pH 7.40 (7.35-7.45) 06/26/19 08:45 ABG pCO2 at Pt Temp 37.8 mmHg (35-45) 06/26/19 08:45 ABG pO2 at Pt Temp 187 mmHg (80-100) H 06/26/19 08:45 ABG HCO3 22.6 mmol/L (22-27) 06/26/19 08:45 ABG O2 Sat (Measured) 98.8 % (95-98) H 06/26/19 08:45 ABG O2 Content No Result Required. 06/26/19 08:45 ABG Base Excess -1.4 mmol/L (-2-2) 06/26/19 08:45 CBCD WBC 8.2 K/mm3 (4.0-10.0) 06/26/19 06:49 RBC 4.66 M/mm3 (4.00-5.60) 06/26/19 06:49 Hgb 13.7 GM/dL (11.7-16.9) 06/26/19 06:49 Hct 41.1 % (35.4-49) 06/26/19 06:49 MCV 88.4 fl (80-96) 06/26/19 06:49 MCHC 33.3 g/dl (32.0-35.9) 06/26/19 06:49 RDW 14.8 % (11.9-15.9) 06/26/19 06:49 Plt Count 276 K/MM3 (134-434) 06/26/19 06:49 MPV 9.3 fl (7.5-11.1) 06/26/19 06:49 CMP Sodium 139 mmol/L (136-145) 06/26/19 06:49 Potassium 4.3 mmol/L (3.5-5.1) 06/26/19 06:49 Chloride 106 mmol/L (98-107) 06/26/19 06:49 Carbon Dioxide 25 mmol/L (21-32) 06/26/19 06:49 Anion Gap 9 MMOL/L (8-16) 06/26/19 06:49 BUN 18.6 mg/dL (7-18) H 06/26/19 06:49 Creatinine 0.5 mg/dL (0.55-1.3) L 06/26/19 06:49 Calcium 7.2 mg/dL (8.5-10.1) L 06/26/19 06:49 Total Bilirubin 0.8 mg/dL (0.2-1) 06/26/19 06:49 AST 64 U/L (15-37) H 06/26/19 06:49 ALT 38 U/L (13-61) 06/26/19 06:49 Alkaline Phosphatase 89 U/L (45-117) 06/26/19 06:49 Total Protein 5.8 g/dl (6.4-8.2) L 06/26/19 06:49 Albumin 1.9 g/dl (3.4-5.0) L 06/26/19 06:49 Physical exam: General: intubated, sedated HEENT: R orbital hematoma, pupils equal PULM: coarse BS maeve CV: regular, S1S2 Abd: soft, benign Ext: no edema, warm Neuro: RASS -4 A/ 38y M hx of developmental delay, seizures, now with acute respiratory failure likely secondary to COVID-19+/- strep PNA P/ -LPV (PBW 68; 7td=457) -wean FiO2 as tolerated, keep higher PEEP for now -sedation for vent synchrony (morphine, propofol) -ID following -cont ceftriaxone -cont vanco --> consider d/c if repeat blood cx negative -cont steroids for COVID -s/p convalescent serum 06/25 -cont home AEDs -cont lovenox -cont PPI for GI ppx GRECIA Mahan CCT: 30 min
[2019-06-26] MEDS: PROPOFOL 1,000,000 MCG/100 ML VIAL IVPB SCH (13:25)
[2019-06-26] MEDS: HYDROXYCHLOROQUINE 200 MG/8 ML ORAL SUSPENSION PO SCH (22:00)
[2019-06-26] MEDS: CHLORHEXIDINE GLUCONATE 4% CLEANSER FOR DECOLONIZATION TP SCH (22:00)
[2019-06-27] MEDS: TOPIRAMATE 200 MG TABLET PO SCH ×3 (06:00→22:38)
[2019-06-27 06:27] LABS: ARTERIAL BLD GAS O2 SATURATION 92.3 % (95-98); ARTERIAL BLOOD GAS BASE EXCESS -2.6 mmol/L (-2-2); ARTERIAL BLOOD GAS PCO2 55.2 mmHg (35-45); ARTERIAL BLOOD GAS PO2 76.2 mmHg (80-100); ARTERIAL BLOOD GAS pH 7.27 (7.35-7.45)
[2019-06-27 07:31] LABS: ALLENS TEST POSITIVE
[2019-06-27] MEDS: ACETAMINOPHEN 325 MG TABLET (FP) PO PRN (07:57)
[2019-06-27 08:09] LABS: HEMATOCRIT 39.5 % (35.4-49); HEMOGLOBIN 12.9 GM/dL (11.7-16.9); MCH 28.9 pg (25.7-33.7); MCHC 32.6 g/dl (32.0-35.9); MEAN CELL VOLUME 88.6 fl (80-96); MEAN PLT VOLUME 9.1 fl (7.5-11.1); PLATELET COUNT 352 K/MM3 (134-434); RBC 4.46 M/mm3 (4.00-5.60); RDW 15.2 % (11.9-15.9); WHITE BLOOD COUNT 9.9 K/mm3 (4.0-10.0)
[2019-06-27 08:36] LABS: BLOOD UREA NITROGEN 19.1 mg/dL (7-18); CALCIUM 7.2 mg/dL (8.5-10.1); CREATININE 0.6 mg/dL (0.55-1.3); PHOSPHOROUS 3.8 mg/dL (2.5-4.9); POTASSIUM 4.1 mmol/L (3.5-5.1)
[2019-06-27] MEDS ORDERED: DEXTROSE 5%-WATER 100 ML IVPB ONE (09:10)
[2019-06-27] MEDS: ZINC SULFATE 220 MG CAPSULE (FP) PO SCH ×2 (09:57→22:39)
[2019-06-27] MEDS: PANTOPRAZOLE SODIUM 40 MG VIAL IVPUSH SCH (09:57)
[2019-06-27] MEDS: levETIRAcetam 500 MG/5 ML INJECTION VIAL IVPB SCH ×2 (09:57→22:38)
[2019-06-27] MEDS: ENOXAPARIN NA (PORCINE) 80 MG/0.8 ML DISP.SYRIN SQ SCH ×2 (09:57→22:38)
[2019-06-27] MEDS: HYDROXYCHLOROQUINE 200 MG/8 ML ORAL SUSPENSION PO SCH ×2 (09:57→22:39)
[2019-06-27] MEDS: CEFTRIAXONE 2 GM in DEXTROSE 5%-WATER 100 ML IVPB SCH (09:57)
[2019-06-27] MEDS: methylPREDNISolone NA SUCC 40 MG/1 ML VIAL IVPUSH SCH ×2 (09:58→22:39)
[2019-06-27] MEDS: Lacosamide 200 MG/20 ML VIAL IVPB SCH ×2 (10:18→22:00)
[2019-06-27] MEDS: MUPIROCIN 2% TOPICAL OINTMENT FOR DECOLONIZATION NS SCH (10:22)
[2019-06-27] MEDS: AMINO ACIDS/PROTEIN HYDROLYS 30 ML LIQUID.PKT PO SCH (11:04)
[2019-06-27] MEDS: PHENobarbital 30 MG TABLET PO SCH ×2 (11:04→22:39)
[2019-06-27] MEDS: SODIUM CHLORIDE 1,000 ML IV SCH (12:22)
--- NOTE | 2019-06-27 13:05 | PN ---
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 (short form) - Note 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: PULM/CCM Patient seen and examined in the SAICU. Remains sedated & intubated. P:F dropped from 267 --> 76 w/ TVs moved from 380 --> 340 & PEEP dropped from 12 --> 10 O/N . PBW 68 340=5cc) CURRENT VENT: AC/VC/26/340/100%/+12 Pplat: 35 --> 35 P:F 267 --> 76.2 ABG Results ABG pH 7.27 (7.35-7.45) L 06/27/19 05:30 ABG pCO2 at Pt Temp 55.2 mmHg (35-45) H 06/27/19 05:30 ABG pO2 at Pt Temp 76.2 mmHg (80-100) L 06/27/19 05:30 ABG HCO3 24.5 mmol/L (22-27) 06/27/19 05:30 ABG O2 Sat (Measured) 92.3 % (95-98) L 06/27/19 05:30 ABG O2 Content 16.8 % vol 06/27/19 05:30 ABG Base Excess -2.6 mmol/L (-2-2) L 06/27/19 05:30 ABG Results ABG pH 7.40 (7.35-7.45) 06/26/19 08:45 ABG pCO2 at Pt Temp 37.8 mmHg (35-45) 06/26/19 08:45 ABG pO2 at Pt Temp 187 mmHg (80-100) H 06/26/19 08:45 ABG HCO3 22.6 mmol/L (22-27) 06/26/19 08:45 ABG O2 Sat (Measured) 98.8 % (95-98) H 06/26/19 08:45 ABG O2 Content No Result Required. 06/26/19 08:45 ABG Base Excess -1.4 mmol/L (-2-2) 06/26/19 08:45 Active Medications Acetaminophen (Tylenol -) 650 mg PO Q4H PRN PRN Reason: FEVER Last Admin: 06/27/19 07:57 Dose: 650 mg Documented by: Amino Acids (Prosource No Carb Liquid Pkt) 30 ml PO DAILY [facility] Last Admin: 06/27/19 11:04 Dose: 30 ml Documented by: Chlorhexidine Gluconate (Hibiclens For Decolonization -) 1 applic TP HS [facility] Last Admin: 06/26/19 22:00 Dose: 1 applic Documented by: Enoxaparin Sodium (Lovenox -) 80 mg SQ BID [facility] Last Admin: 06/27/19 09:57 Dose: 80 mg Documented by: Hydroxychloroquine Sulfate (Plaquenil Suspension) 200 mg PO BID [facility] Stop: 06/28/19 22:01 Last Admin: 06/27/19 09:57 Dose: 200 mg Documented by: Propofol (Diprivan -) 1,000,000 mcg in 100 mls @ 2.313 mls/hr IVPB TITR [facility]; Protocol Last Titration: 06/26/19 15:18 Dose: 25 mcg/kg/min, 11.567 mls/hr Documented by: Morphine Sulfate (Morphine 100mg/100ml-0.9% Nacl) 100 mg in 100 mls @ 1 mls/hr IVPB TITR [facility]; Protocol Last Admin: 06/24/19 21:13 Dose: 2 mg/hr, 2 mls/hr Documented by: Ceftriaxone Sodium 2 gm/ (Dextrose) 100 mls @ 200 mls/hr IVPB DAILY [facility]; Protocol Last Admin: 06/27/19 09:57 Dose: 200 mls/hr Documented by: Sodium Chloride (Normal Saline -) 1,000 mls @ 125 mls/hr IV ASDIR [facility] Last Admin: 06/27/19 12:22 Dose: 125 mls/hr Documented by: Lacosamide (Vimpat Injection -) 200 mg IVPB BID [facility] Last Admin: 06/27/19 10:18 Dose: 200 mg Documented by: Levetiracetam (Keppra Injection -) 1,000 mg IVPB BID [facility] Last Admin: 06/27/19 09:57 Dose: 1,000 mg Documented by: Methylprednisolone Sodium Succinate (Solu-Medrol -) 40 mg IVPUSH BID [facility] Last Admin: 06/27/19 09:58 Dose: 40 mg Documented by: Mupirocin (Bactroban Ointment (For Decolonization) -) 1 applic NS BID [facility] Stop: 06/27/19 21:59 Last Admin: 06/27/19 10:22 Dose: 1 applic Documented by: Pantoprazole Sodium (Protonix Iv) 40 mg IVPUSH DAILY [facility] Last Admin: 06/27/19 09:57 Dose: 40 mg Documented by: Phenobarbital (Phenobarbital -) 60 mg PO BID [facility] Last Admin: 06/27/19 11:04 Dose: 60 mg Documented by: Topiramate (Topamax -) 200 mg PO TID [facility] Last Admin: 06/26/19 22:00 Dose: 200 mg Documented by: Zinc Sulfate (Orazinc -) 220 mg PO BID [facility] Last Admin: 06/27/19 09:57 Dose: 220 mg Documented by: Vital Signs Period Temp Pulse Resp BP Sys/Ortiz Pulse Ox Last 24 Hr 96.4 F-101.2 F 52-111 22-35 93-126/51-67 86-100 Intake & Output 06/24/19 06/25/19 06/26/19 06/27/19 23:59 23:59 23:59 23:59 Intake Total 2027.2 1798 1087 Output Total 2551 030 8684 600 Balance 727.2 1398 -1118 -600 Weight 76.657 kg Physical exam: General: intubated, sedated HEENT: R orbital hematoma, pupils equal PULM: coarse BS maeve CV: regular, S1S2 Abd: soft, benign Ext: no edema, warm Neuro: RASS -4 CBC, BMP 06/27/19 06:30 06/27/19 06:30 ABG Results ABG pH 7.27 (7.35-7.45) L 06/27/19 05:30 ABG pCO2 at Pt Temp 55.2 mmHg (35-45) H 06/27/19 05:30 ABG pO2 at Pt Temp 76.2 mmHg (80-100) L 06/27/19 05:30 ABG HCO3 24.5 mmol/L (22-27) 06/27/19 05:30 ABG O2 Sat (Measured) 92.3 % (95-98) L 06/27/19 05:30 ABG O2 Content 16.8 % vol 06/27/19 05:30 ABG Base Excess -2.6 mmol/L (-2-2) L 06/27/19 05:30 Microbiology 06/25/19 13:40 Blood - Peripheral Venous Blood Culture - Preliminary NO GROWTH OBTAINED AFTER 48 HOURS, INCUBATION TO CONTINUE FOR 3 DAYS. 06/25/19 13:20 Blood - Peripheral Venous Blood Culture - Preliminary NO GROWTH OBTAINED AFTER 48 HOURS, INCUBATION TO CONTINUE FOR 3 DAYS. 06/22/19 13:00 Blood - Peripheral Venous Blood Culture - Final Staphylococcus Warneri 06/22/19 13:00 Blood - Peripheral Venous Blood Culture - Final Staphylococcus Epidermidis 06/24/19 00:01 Urine - Urine Caceres Urine Culture - Final NO GROWTH OBTAINED 06/24/19 00:01 Urine For Antigen Detection Legionella Antigen - Final 06/24/19 00:01 Urine For Antigen Detection Streptococcus pneumoniae Antigen (M - Final RECENT STUDIES TO NOTE: CXR 06/25: Since a prior study of 06/25/2019, an endotracheal tube remains in place with distal tip above the julee. A nasogastric tube is also reidentified. Bilateral pulmonary infiltrates may have worsened. A/ 38y M hx of developmental delay, seizures, now with acute respiratory failure likely secondary to COVID-19+/- strep PNA P/ -LPV (PBW 68; 3hf=596) -wean FiO2 as toleratedw -sedation for vent synchrony (morphine, propofol) -ID following -cont ceftriaxone -cont vanco --> consider d/c if repeat blood cx negative -cont steroids for COVID -s/p convalescent serum 06/25 -cont home AEDs -cont 80 BID lovenox -cont PPI for GI ppx [facility] ICU PULM/[facility] [id number] CCT: 32" Critical Care Total Critical Care Time (in minutes): 32 Critical Care Statement: The care of this patient involved high complexity decision making to prevent further life threatening deterioration of the patient's condition and/or to evaluate & treat vital organ system(s) failure or risk of failure.
[2019-06-27] MEDS: PROPOFOL 1,000,000 MCG/100 ML VIAL IVPB SCH (14:14)
[2019-06-27] MEDS: MORPHINE SULFATE/0.9% NACL/PF 100 MG/100 ML BAG IVPB SCH (21:00)
--- NOTE | 2019-06-27 21:37 | PN ---
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, Physician History of Present Illness: INTUBATED TEMPS DOWN AFEBRILE WBC WNL BC SCN X2 - Current Medication List Current Medications: Active Medications Acetaminophen (Tylenol -) 650 mg PO Q4H PRN PRN Reason: FEVER Last Admin: 06/27/19 07:57 Dose: 650 mg Documented by: Amino Acids (Prosource No Carb Liquid Pkt) 30 ml PO DAILY [facility] Last Admin: 06/27/19 11:04 Dose: 30 ml Documented by: Chlorhexidine Gluconate (Hibiclens For Decolonization -) 1 applic TP HS [facility] Last Admin: 06/26/19 22:00 Dose: 1 applic Documented by: Enoxaparin Sodium (Lovenox -) 80 mg SQ BID [facility] Last Admin: 06/27/19 09:57 Dose: 80 mg Documented by: Hydroxychloroquine Sulfate (Plaquenil Suspension) 200 mg PO BID [facility] Stop: 06/28/19 22:01 Last Admin: 06/27/19 09:57 Dose: 200 mg Documented by: Propofol (Diprivan -) 1,000,000 mcg in 100 mls @ 2.313 mls/hr IVPB TITR [facility]; Protocol Last Admin: 06/27/19 14:14 Dose: 25 mcg/kg/min, 11.567 mls/hr Documented by: Morphine Sulfate (Morphine 100mg/100ml-0.9% Nacl) 100 mg in 100 mls @ 1 mls/hr IVPB TITR [facility]; Protocol Last Infusion: 06/27/19 07:00 Dose: 8 mg/hr, 8 mls/hr Documented by: Ceftriaxone Sodium 2 gm/ (Dextrose) 100 mls @ 200 mls/hr IVPB DAILY [facility]; Protocol Last Admin: 06/27/19 09:57 Dose: 200 mls/hr Documented by: Sodium Chloride (Normal Saline -) 1,000 mls @ 125 mls/hr IV ASDIR [facility] Last Admin: 06/27/19 12:22 Dose: 125 mls/hr Documented by: Lacosamide (Vimpat Injection -) 200 mg IVPB BID [facility] Last Admin: 06/27/19 10:18 Dose: 200 mg Documented by: Levetiracetam (Keppra Injection -) 1,000 mg IVPB BID [facility] Last Admin: 06/27/19 09:57 Dose: 1,000 mg Documented by: Methylprednisolone Sodium Succinate (Solu-Medrol -) 40 mg IVPUSH BID [facility] Last Admin: 06/27/19 09:58 Dose: 40 mg Documented by: Mupirocin (Bactroban Ointment (For Decolonization) -) 1 applic NS BID [facility] Stop: 06/27/19 21:59 Last Admin: 06/27/19 10:22 Dose: 1 applic Documented by: Pantoprazole Sodium (Protonix Iv) 40 mg IVPUSH DAILY [facility] Last Admin: 06/27/19 09:57 Dose: 40 mg Documented by: Phenobarbital (Phenobarbital -) 60 mg PO BID [facility] Last Admin: 06/27/19 11:04 Dose: 60 mg Documented by: Topiramate (Topamax -) 200 mg PO TID [facility] Last Admin: 06/27/19 13:54 Dose: 200 mg Documented by: Zinc Sulfate (Orazinc -) 220 mg PO BID [facility] Last Admin: 06/27/19 09:57 Dose: 220 mg Documented by: - Objective Vital Signs: Vital Signs Temperature 99.5 F 06/27/19 17:57 Pulse Rate 80 06/27/19 17:57 Respiratory Rate 26 H 06/27/19 21:26 Blood Pressure 115/69 06/27/19 17:57 O2 Sat by Pulse Oximetry (%) 99 06/27/19 17:57 Constitutional: Yes: No Distress Cardiovascular: Yes: Regular Rate and Rhythm, S1, S2 Respiratory: Yes: CTA Bilaterally Gastrointestinal: Yes: Normal Bowel Sounds, Soft Labs: CBC, BMP 06/27/19 06:30 06/27/19 06:30 INR, PTT INR 0.97 (0.83-1.09) 06/26/19 06:49 Assessment/Plan RESP FAILURE COVID-19 FEVER- IMPROVED +BC SCN X 2 PROBABLE CONTAMINANT CONTINUE VENTILATORY SUPPORT HYDROXYCHLOROQUINE/ CEFTRIAXONE [place] PRECAUTIONS
[2019-06-27] MEDS: CHLORHEXIDINE GLUCONATE 4% CLEANSER FOR DECOLONIZATION TP SCH (22:38)
[2019-06-28] MEDS: TOPIRAMATE 200 MG TABLET PO SCH ×3 (06:23→23:00)
[2019-06-28 07:30] LABS: ARTERIAL BLD GAS O2 SATURATION 95.1 % (95-98); ARTERIAL BLOOD GAS BASE EXCESS -2.6 mmol/L (-2-2); ARTERIAL BLOOD GAS PCO2 58.5 mmHg (35-45); ARTERIAL BLOOD GAS PO2 89.8 mmHg (80-100); ARTERIAL BLOOD GAS pH 7.25 (7.35-7.45)
[2019-06-28 07:45] LABS: ALLENS TEST POSITIVE
[2019-06-28] MEDS ORDERED: DEXTROSE 5%-WATER 100 ML IVPB ONE (08:10)
[2019-06-28 08:28] LABS: HEMOGLOBIN 11.7 GM/dL (11.7-16.9); MCH 29.1 pg (25.7-33.7); MCHC 32.4 g/dl (32.0-35.9); MEAN CELL VOLUME 89.7 fl (80-96); MEAN PLT VOLUME 8.9 fl (7.5-11.1); PLATELET COUNT 336 K/MM3 (134-434); RBC 4.02 M/mm3 (4.00-5.60); RDW 15.2 % (11.9-15.9); WHITE BLOOD COUNT 9.6 K/mm3 (4.0-10.0)
[2019-06-28] MEDS: ACETAMINOPHEN 325 MG TABLET (FP) PO PRN ×3 (08:55→22:28)
[2019-06-28 09:12] LABS: CREATININE 0.4 mg/dL (0.55-1.3); POTASSIUM 4.6 mmol/L (3.5-5.1)
[2019-06-28] MEDS: levETIRAcetam 500 MG/5 ML INJECTION VIAL IVPB SCH ×2 (09:39→22:28)
[2019-06-28] MEDS: PANTOPRAZOLE SODIUM 40 MG VIAL IVPUSH SCH (09:40)
[2019-06-28] MEDS: CEFTRIAXONE 2 GM in DEXTROSE 5%-WATER 100 ML IVPB SCH (09:40)
[2019-06-28] MEDS: ENOXAPARIN NA (PORCINE) 80 MG/0.8 ML DISP.SYRIN SQ SCH ×2 (09:40→22:29)
[2019-06-28] MEDS: AMINO ACIDS/PROTEIN HYDROLYS 30 ML LIQUID.PKT PO SCH (09:40)
[2019-06-28] MEDS: ZINC SULFATE 220 MG CAPSULE (FP) PO SCH ×2 (09:40→22:29)
[2019-06-28] MEDS: Lacosamide 200 MG/20 ML VIAL IVPB SCH ×2 (09:40→22:29)
[2019-06-28] MEDS: PHENobarbital 20 MG/5 ML UNIT-DOSE CUP GT SCH ×2 (09:40→22:29)
[2019-06-28] MEDS: HYDROXYCHLOROQUINE 200 MG/8 ML ORAL SUSPENSION PO SCH ×2 (09:40→22:29)
[2019-06-28] MEDS: methylPREDNISolone NA SUCC 40 MG/1 ML VIAL IVPUSH SCH ×2 (09:40→22:29)
[2019-06-28] MEDS ORDERED: VECURONIUM BROMIDE 50 MG/50 ML VIAL IVPUSH STA (10:12)
[2019-06-28] MEDS: VECURONIUM BROMIDE 100 MG/100 ML BAG IVPB SCH (11:06)
--- NOTE | 2019-06-28 13:09 | PN ---
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 (short form) - Note 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: PULM/CCM Patient seen and examined in the SAICU. Remains sedated & intubated. PBW 68 340=5cc) CURRENT VENT: AC/VC/26/340/100%/+12 Pplat: 35 --> 35 --> 33 P:F 267 --> 76.2 --> 90 ABG Results ABG pH 7.25 (7.35-7.45) L 06/28/19 06:10 ABG pCO2 at Pt Temp 58.5 mmHg (35-45) H 06/28/19 06:10 ABG pO2 at Pt Temp 89.8 mmHg (80-100) 06/28/19 06:10 ABG HCO3 24.9 mmol/L (22-27) 06/28/19 06:10 ABG O2 Sat (Measured) 95.1 % (95-98) 06/28/19 06:10 ABG O2 Content No Result Required. 06/28/19 06:10 ABG Base Excess -2.6 mmol/L (-2-2) L 06/28/19 06:10 ABG Results ABG pH 7.27 (7.35-7.45) L 06/27/19 05:30 ABG pCO2 at Pt Temp 55.2 mmHg (35-45) H 06/27/19 05:30 ABG pO2 at Pt Temp 76.2 mmHg (80-100) L 06/27/19 05:30 ABG HCO3 24.5 mmol/L (22-27) 06/27/19 05:30 ABG O2 Sat (Measured) 92.3 % (95-98) L 06/27/19 05:30 ABG O2 Content 16.8 % vol 06/27/19 05:30 ABG Base Excess -2.6 mmol/L (-2-2) L 06/27/19 05:30 ABG Results ABG pH 7.40 (7.35-7.45) 06/26/19 08:45 ABG pCO2 at Pt Temp 37.8 mmHg (35-45) 06/26/19 08:45 ABG pO2 at Pt Temp 187 mmHg (80-100) H 06/26/19 08:45 ABG HCO3 22.6 mmol/L (22-27) 06/26/19 08:45 ABG O2 Sat (Measured) 98.8 % (95-98) H 06/26/19 08:45 ABG O2 Content No Result Required. 06/26/19 08:45 ABG Base Excess -1.4 mmol/L (-2-2) 06/26/19 08:45 Active Medications Acetaminophen (Tylenol -) 650 mg PO Q4H PRN PRN Reason: FEVER Last Admin: 06/28/19 08:55 Dose: 650 mg Documented by: Amino Acids (Prosource No Carb Liquid Pkt) 30 ml PO DAILY [facility] Last Admin: 06/28/19 09:40 Dose: 30 ml Documented by: Chlorhexidine Gluconate (Hibiclens For Decolonization -) 1 applic TP HS [facility] Last Admin: 06/27/19 22:38 Dose: 1 applic Documented by: Enoxaparin Sodium (Lovenox -) 80 mg SQ BID [facility] Last Admin: 06/28/19 09:40 Dose: 80 mg Documented by: Hydroxychloroquine Sulfate (Plaquenil Suspension) 200 mg PO BID [facility] Stop: 06/28/19 22:01 Last Admin: 06/28/19 09:40 Dose: 200 mg Documented by: Propofol (Diprivan -) 1,000,000 mcg in 100 mls @ 2.313 mls/hr IVPB TITR [facility]; Protocol Last Admin: 06/27/19 14:14 Dose: 25 mcg/kg/min, 11.567 mls/hr Documented by: Morphine Sulfate (Morphine 100mg/100ml-0.9% Nacl) 100 mg in 100 mls @ 1 mls/hr IVPB TITR [facility]; Protocol Last Admin: 06/27/19 21:00 Dose: 8 mg/hr, 8 mls/hr Documented by: Ceftriaxone Sodium 2 gm/ (Dextrose) 100 mls @ 200 mls/hr IVPB DAILY [facility]; Protocol Last Admin: 06/28/19 09:40 Dose: 200 mls/hr Documented by: Sodium Chloride (Normal Saline -) 1,000 mls @ 125 mls/hr IV ASDIR [facility] Last Admin: 06/27/19 12:22 Dose: 125 mls/hr Documented by: Vecuronium [place] (Vecuronium [place]) 100 mg in 100 mls @ 4.599 mls/hr IVPB TITR [facility]; Protocol Last Admin: 06/28/19 11:06 Dose: 1 mcg/kg/min, 4.599 mls/hr Documented by: Lacosamide (Vimpat Injection -) 200 mg IVPB BID [facility] Last Admin: 06/28/19 09:40 Dose: 200 mg Documented by: Levetiracetam (Keppra Injection -) 1,000 mg IVPB BID [facility] Last Admin: 06/28/19 09:39 Dose: 1,000 mg Documented by: Methylprednisolone Sodium Succinate (Solu-Medrol -) 40 mg IVPUSH BID [facility] Last Admin: 06/28/19 09:40 Dose: 40 mg Documented by: Pantoprazole Sodium (Protonix Iv) 40 mg IVPUSH DAILY [facility] Last Admin: 06/28/19 09:40 Dose: 40 mg Documented by: Phenobarbital (Phenobarbital Liquid -) 60 mg GT BID [facility] Last Admin: 06/28/19 09:40 Dose: 60 mg Documented by: Topiramate (Topamax -) 200 mg PO TID [facility] Last Admin: 06/28/19 06:23 Dose: 200 mg Documented by: Zinc Sulfate (Orazinc -) 220 mg PO BID [facility] Last Admin: 06/28/19 09:40 Dose: 220 mg Documented by: Vital Signs Period Temp Pulse Resp BP Sys/Ortiz Pulse Ox Last 24 Hr 99 F-102 F 80-113 16-28 109-127/53-69 89-100 Intake & Output 06/25/19 06/26/19 06/27/19 06/28/19 23:59 23:59 23:59 23:59 Intake Total 1798 1087 1512.6 2048 Output Total 400 2205 1550 900 Balance 1398 -1118 -37.4 1148 Physical exam: General: intubated, sedated HEENT: R orbital hematoma, pupils equal PULM: coarse BS maeve CV: regular, S1S2 Abd: soft, benign Ext: no edema, warm Neuro: RASS -4 CBC, BMP 06/28/19 06:00 06/28/19 06:00 ABG Results ABG pH 7.25 (7.35-7.45) L 06/28/19 06:10 ABG pCO2 at Pt Temp 58.5 mmHg (35-45) H 06/28/19 06:10 ABG pO2 at Pt Temp 89.8 mmHg (80-100) 06/28/19 06:10 ABG HCO3 24.9 mmol/L (22-27) 06/28/19 06:10 ABG O2 Sat (Measured) 95.1 % (95-98) 06/28/19 06:10 ABG O2 Content No Result Required. 06/28/19 06:10 ABG Base Excess -2.6 mmol/L (-2-2) L 06/28/19 06:10 Microbiology 06/25/19 13:40 Blood - Peripheral Venous Blood Culture - Preliminary NO GROWTH OBTAINED AFTER 48 HOURS, INCUBATION TO CONTINUE FOR 3 DAYS. 06/25/19 13:20 Blood - Peripheral Venous Blood Culture - Preliminary NO GROWTH OBTAINED AFTER 48 HOURS, INCUBATION TO CONTINUE FOR 3 DAYS. 06/22/19 13:00 Blood - Peripheral Venous Blood Culture - Final Staphylococcus Warneri 06/22/19 13:00 Blood - Peripheral Venous Blood Culture - Final Staphylococcus Epidermidis 06/24/19 00:01 Urine - Urine Caceres Urine Culture - Final NO GROWTH OBTAINED 06/24/19 00:01 Urine For Antigen Detection Legionella Antigen - Final 06/24/19 00:01 Urine For Antigen Detection Streptococcus pneumoniae Antigen (M - Final RECENT STUDIES TO NOTE: CXR 06/25: Since a prior study of 06/25/2019, an endotracheal tube remains in place with distal tip above the julee. A nasogastric tube is also reidentified. Bilateral pulmonary infiltrates may have worsened. A/ 38y M hx of developmental delay, seizures, now with acute respiratory failure likely secondary to COVID-19+/- strep PNA P/ -LPV (PBW 68; 4dz=345) -wean FiO2 as tolerated -sedation for vent synchrony (morphine, propofol) -ID following -cont ceftriaxone -d/c Vanc -cont steroids for COVID -s/p convalescent serum 06/25 -cont home AEDs -cont 80 BID lovenox -cont PPI for GI ppx [facility] ICU PULM/[facility] [id number] CCT: 34" Critical Care Total Critical Care Time (in minutes): 34 Critical Care Statement: The care of this patient involved high complexity decision making to prevent further life threatening deterioration of the patient's condition and/or to evaluate & treat vital organ system(s) failure or risk of failure.
[2019-06-28] MEDS: SODIUM CHLORIDE 1,000 ML IV SCH (14:25)
[2019-06-28] MEDS: PROPOFOL 1,000,000 MCG/100 ML VIAL IVPB SCH (14:25)
[2019-06-28] MEDS: MORPHINE SULFATE/0.9% NACL/PF 100 MG/100 ML BAG IVPB SCH (22:27)
[2019-06-28] MEDS: CHLORHEXIDINE GLUCONATE 4% CLEANSER FOR DECOLONIZATION TP SCH (22:28)
[2019-06-29 06:33] LABS: ARTERIAL BLD GAS O2 SATURATION 93.2 % (95-98); ARTERIAL BLOOD GAS BASE EXCESS -2.9 mmol/L (-2-2); ARTERIAL BLOOD GAS PO2 77.3 mmHg (80-100); ARTERIAL BLOOD GAS pH 7.22 (7.35-7.45)
[2019-06-29 06:53] LABS: ALLENS TEST POSITIVE
[2019-06-29 07:03] LABS: HEMOGLOBIN 10.9 GM/dL (11.7-16.9); MCH 28.8 pg (25.7-33.7); MEAN CELL VOLUME 90.1 fl (80-96); MEAN PLT VOLUME 8.4 fl (7.5-11.1); PLATELET COUNT 349 K/MM3 (134-434); RBC 3.77 M/mm3 (4.00-5.60); RDW 15.5 % (11.9-15.9); WHITE BLOOD COUNT 8.3 K/mm3 (4.0-10.0)
[2019-06-29 07:34] LABS: BLOOD UREA NITROGEN 14.3 mg/dL (7-18); CREATININE 0.4 mg/dL (0.55-1.3); PHOSPHOROUS 2.7 mg/dL (2.5-4.9); POTASSIUM 4.6 mmol/L (3.5-5.1)
[2019-06-29] MEDS: TOPIRAMATE 200 MG TABLET PO SCH ×3 (07:42→22:21)
[2019-06-29] MEDS ORDERED: DEXTROSE 5%-WATER 100 ML IVPB ONE (08:25)
[2019-06-29] MEDS: ENOXAPARIN NA (PORCINE) 80 MG/0.8 ML DISP.SYRIN SQ SCH ×2 (09:50→22:21)
[2019-06-29] MEDS: PHENobarbital 20 MG/5 ML UNIT-DOSE CUP GT SCH ×2 (09:51→22:21)
[2019-06-29] MEDS: ZINC SULFATE 220 MG CAPSULE (FP) PO SCH ×2 (09:52→22:21)
[2019-06-29] MEDS: AMINO ACIDS/PROTEIN HYDROLYS 30 ML LIQUID.PKT PO SCH (09:52)
[2019-06-29] MEDS: PANTOPRAZOLE SODIUM 40 MG VIAL IVPUSH SCH (09:53)
[2019-06-29] MEDS: CEFTRIAXONE 2 GM in DEXTROSE 5%-WATER 100 ML IVPB SCH (09:55)
[2019-06-29] MEDS: methylPREDNISolone NA SUCC 40 MG/1 ML VIAL IVPUSH SCH ×2 (09:55→22:21)
[2019-06-29] MEDS: Lacosamide 200 MG/20 ML VIAL IVPB SCH ×2 (09:58→22:21)
[2019-06-29] MEDS: levETIRAcetam 500 MG/5 ML INJECTION VIAL IVPB SCH ×2 (12:18→22:22)
[2019-06-29] MEDS: VECURONIUM BROMIDE 100 MG/100 ML BAG IVPB SCH (12:19)
[2019-06-29] MEDS: SODIUM CHLORIDE 1,000 ML IV SCH (12:40)
[2019-06-29 14:00] LABS: ARTERIAL BLD GAS O2 SATURATION 94.5 % (95-98); ARTERIAL BLOOD GAS BASE EXCESS -1.8 mmol/L (-2-2); ARTERIAL BLOOD GAS PCO2 47.7 mmHg (35-45); ARTERIAL BLOOD GAS PO2 76.3 mmHg (80-100); ARTERIAL BLOOD GAS pH 7.33 (7.35-7.45)
[2019-06-29 14:03] LABS: ALLENS TEST POSITIVE
[2019-06-29] MEDS: PROPOFOL 1,000,000 MCG/100 ML VIAL IVPB SCH (14:03)
--- NOTE | 2019-06-29 14:42 | PN ---
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 (short form) - Note 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: remains intubated and sedated s/p convalescent plasma transfusion 06/24 Vital Signs Period Temp Pulse Resp BP Sys/Ortiz Pulse Ox Last 24 Hr 97.2 F-102.1 F 64-105 26-35 106-126/50-72 91-100 cor-rrr lungs decreased bs at bases abd soft,nt ext no edema CBC, BMP 06/29/19 06:00 06/29/19 06:00 Microbiology 06/25/19 13:40 Blood - Peripheral Venous Blood Culture - Preliminary NO GROWTH OBTAINED AFTER 96 HOURS, INCUBATION TO CONTINUE FOR 1 DAYS. 06/25/19 13:20 Blood - Peripheral Venous Blood Culture - Preliminary NO GROWTH OBTAINED AFTER 96 HOURS, INCUBATION TO CONTINUE FOR 1 DAYS. 06/28/19 12:50 Sputum - Endotrachea Suction/Ventilator Sputum Culture - Preliminary 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 Pending Organism 06/28/19 12:51 Urine - Urine Caceres Urine Culture - Final NO GROWTH OBTAINED 06/22/19 13:00 Blood - Peripheral Venous Blood Culture - Final Staphylococcus Warneri 06/22/19 13:00 Blood - Peripheral Venous Blood Culture - Final Staphylococcus Epidermidis 06/24/19 00:01 Urine - Urine Caceres Urine Culture - Final NO GROWTH OBTAINED 06/24/19 00:01 Urine For Antigen Detection Legionella Antigen - Final 06/24/19 00:01 Urine For Antigen Detection Streptococcus pneumoniae Antigen (M - Final imp/reccd hypoxemic resp failure bilateral infiltrates covid 19 positive-s/p convalescent plasma, s/p plaquenil positive pneumococcal antigen continue rocephin repeat cultures sent and pending, now afebrile
--- NOTE | 2019-06-29 15:22 | PN ---
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 (short form) - Note 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: Seen and examined in AICU 24 HRS EVENTS: -remains intubated, sedated, paralyzed -worsening oxygenation despite FiO2 100/PEEP 12 VENT SETTINGS: 26/340/100/12 Pplat 30 P:F 77 Active Medications Generic Name Dose Route Start Last Admin Trade Name Freq PRN Reason Stop Dose Admin Acetaminophen 650 mg 06/22/19 23:14 06/28/19 22:28 Tylenol - PO 650 mg Q4H PRN Administration FEVER Amino Acids 30 ml 06/25/19 10:00 06/29/19 09:52 Prosource No Carb Liquid Pkt PO 30 ml DAILY [facility] Administration Chlorhexidine Gluconate 1 applic 06/22/19 22:00 06/28/19 22:28 Hibiclens For Decolonization - TP 1 applic HS [facility] Administration Enoxaparin Sodium 80 mg 06/23/19 10:00 06/29/19 09:50 Lovenox - SQ 80 mg BID [facility] Administration Propofol 1,000,000 mcg in 100 mls @ 2.313 mls/hr 06/22/19 14:00 06/29/19 14:03 Diprivan - IVPB 25 mcg/kg/min TITR [facility] 11.567 mls/hr Administration Protocol 5 MCG/KG/MIN Morphine Sulfate 100 mg in 100 mls @ 1 mls/hr 06/22/19 21:30 06/28/19 22:27 Morphine 100mg/100ml-0.9% Nacl IVPB 8 mg/hr TITR [facility] 8 mls/hr Administration Protocol 1 MG/HR Ceftriaxone Sodium 2 gm/ 100 mls @ 200 mls/hr 06/25/19 10:00 06/29/19 09:55 Dextrose IVPB 200 mls/hr DAILY [facility] Administration Protocol Sodium Chloride 1,000 mls @ 125 mls/hr 06/27/19 12:00 06/29/19 12:40 Normal Saline - IV 125 mls/hr ASD[facility] Administration Vecuronium [place] 100 mg in 100 mls @ 4.599 mls/hr 06/28/19 10:15 06/28/19 11:06 Vecuronium [place] IVPB 1 mcg/kg/min TITR [facility] 4.599 mls/hr Administration Protocol 1 MCG/KG/MIN Lacosamide 200 mg 06/23/19 10:00 06/29/19 09:58 Vimpat Injection - IVPB 200 mg BID [facility] Administration Levetiracetam 1,000 mg 06/23/19 10:00 06/29/19 12:18 Keppra Injection - IVPB 1,000 mg BID [facility] Administration Methylprednisolone Sodium Succinate 40 mg 06/25/19 10:00 06/29/19 09:55 Solu-Medrol - IVPUSH 40 mg BID [facility] Administration Pantoprazole Sodium 40 mg 06/24/19 10:00 06/29/19 09:53 Protonix Iv IVPUSH 40 mg DAILY [facility] Administration Phenobarbital 60 mg 06/28/19 10:00 06/29/19 09:51 Phenobarbital Liquid - GT 60 mg BID [facility] Administration Topiramate 200 mg 06/23/19 14:00 06/29/19 14:04 Topamax - PO 200 mg TID [facility] Administration Zinc Sulfate 220 mg 06/23/19 22:00 06/29/19 09:52 Orazinc - PO 220 mg BID [facility] Administration Vital Signs Period Temp Pulse Resp BP Sys/Ortiz Pulse Ox Last 24 Hr 97.2 F-102.1 F 64-105 26-35 106-126/50-72 91-100 Intake & Output 06/26/19 06/27/19 06/28/19 06/29/19 23:59 23:59 23:59 23:59 Intake Total 1087 1512.6 3175.5 1836 Output Total 2205 1550 1450 900 Balance -1118 -37.4 1725.5 936 ABG Results ABG pH 7.33 (7.35-7.45) L 06/29/19 13:04 ABG pCO2 at Pt Temp 47.7 mmHg (35-45) H 06/29/19 13:04 ABG pO2 at Pt Temp 76.3 mmHg (80-100) L 06/29/19 13:04 ABG HCO3 24.2 mmol/L (22-27) 06/29/19 13:04 ABG O2 Sat (Measured) 94.5 % (95-98) L 06/29/19 13:04 ABG O2 Content 20.3 % vol 06/29/19 13:04 ABG Base Excess -1.8 mmol/L (-2-2) 06/29/19 13:04 CBCD WBC 8.3 K/mm3 (4.0-10.0) 06/29/19 06:00 RBC 3.77 M/mm3 (4.00-5.60) L 06/29/19 06:00 Hgb 10.9 GM/dL (11.7-16.9) L 06/29/19 06:00 Hct 34.0 % (35.4-49) L 06/29/19 06:00 MCV 90.1 fl (80-96) 06/29/19 06:00 MCHC 32.0 g/dl (32.0-35.9) 06/29/19 06:00 RDW 15.5 % (11.9-15.9) 06/29/19 06:00 Plt Count 349 K/MM3 (134-434) 06/29/19 06:00 MPV 8.4 fl (7.5-11.1) 06/29/19 06:00 CMP Sodium 145 mmol/L (136-145) 06/29/19 06:00 Potassium 4.6 mmol/L (3.5-5.1) 06/29/19 06:00 Chloride 116 mmol/L (98-107) H 06/29/19 06:00 Carbon Dioxide 27 mmol/L (21-32) 06/29/19 06:00 Anion Gap 2 MMOL/L (8-16) L 06/29/19 06:00 BUN 14.3 mg/dL (7-18) 06/29/19 06:00 Creatinine 0.4 mg/dL (0.55-1.3) L 06/29/19 06:00 Calcium 7.0 mg/dL (8.5-10.1) L 06/29/19 06:00 Total Bilirubin 0.8 mg/dL (0.2-1) 06/26/19 06:49 AST 64 U/L (15-37) H 06/26/19 06:49 ALT 38 U/L (13-61) 06/26/19 06:49 Alkaline Phosphatase 89 U/L (45-117) 06/26/19 06:49 Total Protein 5.8 g/dl (6.4-8.2) L 06/26/19 06:49 Albumin 1.9 g/dl (3.4-5.0) L 06/26/19 06:49 Microbiology 06/25/19 13:40 Blood - Peripheral Venous Blood Culture - Preliminary NO GROWTH OBTAINED AFTER 96 HOURS, INCUBATION TO CONTINUE FOR 1 DAYS. 06/25/19 13:20 Blood - Peripheral Venous Blood Culture - Preliminary NO GROWTH OBTAINED AFTER 96 HOURS, INCUBATION TO CONTINUE FOR 1 DAYS. 06/28/19 12:50 Sputum - Endotrachea Suction/Ventilator Sputum Culture - Preliminary 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 Pending Organism 06/28/19 12:51 Urine - Urine Caceres Urine Culture - Final NO GROWTH OBTAINED 06/22/19 13:00 Blood - Peripheral Venous Blood Culture - Final Staphylococcus Warneri 06/22/19 13:00 Blood - Peripheral Venous Blood Culture - Final Staphylococcus Epidermidis 06/24/19 00:01 Urine - Urine Caceres Urine Culture - Final NO GROWTH OBTAINED 06/24/19 00:01 Urine For Antigen Detection Legionella Antigen - Final 06/24/19 00:01 Urine For Antigen Detection Streptococcus pneumoniae Antigen (M - Final PHYSICAL EXAM: General: intubated, sedated, paralyzed HEENT: R periorbital hematoma PULM: coarse BS maeve CV: regular Abd: soft, benign Ext: warm, no edema A/ 38y M hx of developmental delay, seizures, now with acute respiratory failure likely secondary to COVID-19+/- strep PNA P/ -LPV (PBW 68; 5kx=319); increase RR rate to 35 -cont deep sedation/paralysis -prone if repeat ABG with P:F <100 -send sputum culture -repeat CXR (worsening oxygenation) -cont steroids -ID following--> f/u re possibly broadening abx -s/p convalescent serum 06/25 -resend inflammatory markers -cont home AEDs -cont 80 BID lovenox -cont PPI for GI ppx
[2019-06-29] MEDS ORDERED: TOCILIZUMAB (ACTEMRA) 400 MG/20 ML VIAL IVPB ONE (15:45)
[2019-06-29] MEDS ORDERED: SODIUM CHLORIDE IVPB ONE (16:30)
[2019-06-29] MEDS ORDERED: TOCILIZUMAB IVPB ONE (16:30)
[2019-06-29 17:31] LABS: ARTERIAL BLD GAS O2 SATURATION 98.4 % (95-98); ARTERIAL BLOOD GAS BASE EXCESS -7.2 mmol/L (-2-2); ARTERIAL BLOOD GAS PCO2 38.4 mmHg (35-45); ARTERIAL BLOOD GAS PO2 171 mmHg (80-100)
[2019-06-29 17:32] LABS: ALLENS TEST POSITIVE
--- NOTE | 2019-06-29 17:47 | EKG ---
Test Reason : Blood Pressure : / mmHG Vent. Rate : 062 BPM Atrial Rate : 062 BPM P-R Int : 168 ms QRS Dur : 102 ms QT Int : 436 ms P-R-T Axes : 041 021 012 degrees QTc Int : 442 ms NORMAL SINUS RHYTHM NORMAL ECG WHEN COMPARED WITH ECG OF 22-JUN-2019 13:37, VENT. RATE HAS DECREASED BY 41 BPM Confirmed by CHAZ ALEXANDER MD ([id number]) on 06/29/2019 5:47:04 PM Referred By: Confirmed By:CHAZ ALEXANDER MD
[2019-06-29] MEDS: PIPERACILLIN/TAZOB 3.375 GM 3.375 GM in DEXTROSE 5%-WATER - 50 ML IVPB SCH ×2 (18:01→22:20)
[2019-06-29] MEDS ORDERED: PIPERACILLIN/TAZOB 3.375 GM 3.375 GM in DEXTROSE 5%-WATER - 50 ML IVPB SCH (22:00)
[2019-06-29] MEDS: VANCOMYCIN 1 GM in D5W (PRE-DOCKED) 1,000 MG/250 ML IVPB SCH (22:25)
[2019-06-29] MEDS: CHLORHEXIDINE GLUCONATE 4% CLEANSER FOR DECOLONIZATION TP SCH (22:28)
[2019-06-30] MEDS: PIPERACILLIN/TAZOB 3.375 GM 3.375 GM in DEXTROSE 5%-WATER - 50 ML IVPB SCH ×4 (02:30→20:59)
[2019-06-30] MEDS: TOPIRAMATE 200 MG TABLET PO SCH ×3 (06:44→21:00)
[2019-06-30 07:22] LABS: ARTERIAL BLOOD GAS BASE EXCESS -3.2 mmol/L (-2-2); ARTERIAL BLOOD GAS PCO2 49.7 mmHg (35-45); ARTERIAL BLOOD GAS PO2 135 mmHg (80-100); ARTERIAL BLOOD GAS pH 7.29 (7.35-7.45)
[2019-06-30 07:52] LABS: HEMATOCRIT 32.9 % (35.4-49); HEMOGLOBIN 10.6 GM/dL (11.7-16.9); MCH 28.7 pg (25.7-33.7); MCHC 32.2 g/dl (32.0-35.9); MEAN CELL VOLUME 89.3 fl (80-96); MEAN PLT VOLUME 8.9 fl (7.5-11.1); PLATELET COUNT 371 K/MM3 (134-434); RBC 3.68 M/mm3 (4.00-5.60); RDW 15.1 % (11.9-15.9); WHITE BLOOD COUNT 6.2 K/mm3 (4.0-10.0)
[2019-06-30 08:23] LABS: BLOOD UREA NITROGEN 15.5 mg/dL (7-18); CREATININE 0.3 mg/dL (0.55-1.3); MAGNESIUM 2.7 mg/dL (1.8-2.4); PHOSPHOROUS 1.7 mg/dL (2.5-4.9); POTASSIUM 4.1 mmol/L (3.5-5.1)
[2019-06-30 08:34] LABS: CALCIUM 6.9 mg/dL (8.5-10.1)
[2019-06-30] MEDS: PROPOFOL 1,000,000 MCG/100 ML VIAL IVPB SCH ×2 (10:20→19:13)
[2019-06-30] MEDS: ZINC SULFATE 220 MG CAPSULE (FP) PO SCH ×2 (10:47→21:00)
[2019-06-30] MEDS: levETIRAcetam 500 MG/5 ML INJECTION VIAL IVPB SCH ×2 (10:47→21:00)
[2019-06-30] MEDS: AMINO ACIDS/PROTEIN HYDROLYS 30 ML LIQUID.PKT PO SCH (10:48)
[2019-06-30] MEDS: PHENobarbital 20 MG/5 ML UNIT-DOSE CUP GT SCH ×2 (10:48→21:00)
[2019-06-30] MEDS: PANTOPRAZOLE SODIUM 40 MG VIAL IVPUSH SCH (10:48)
[2019-06-30] MEDS: methylPREDNISolone NA SUCC 40 MG/1 ML VIAL IVPUSH SCH ×2 (10:49→21:00)
[2019-06-30] MEDS: Lacosamide 200 MG/20 ML VIAL IVPB SCH ×2 (10:51→21:00)
[2019-06-30] MEDS: VANCOMYCIN 1 GM in D5W (PRE-DOCKED) 1,000 MG/250 ML IVPB SCH ×2 (10:51→21:00)
--- NOTE | 2019-06-30 12:08 | PN ---
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 (short form) - Note 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: PULM/CCM 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: Seen and examined in ICU2 24 HRS EVENTS: -GM negative rods in blood -supinated this morning -not on vasopressors VENT SETTINGS: 35/340/70/12 Pplat 30 P:F 200 ABG Results ABG pH 7.29 (7.35-7.45) L 06/30/19 05:50 ABG pCO2 at Pt Temp 49.7 mmHg (35-45) H 06/30/19 05:50 ABG pO2 at Pt Temp 135 mmHg (80-100) H 06/30/19 05:50 ABG HCO3 23.3 mmol/L (22-27) 06/30/19 05:50 ABG O2 Sat (Measured) 98.0 % (95-98) 06/30/19 05:50 ABG O2 Content 20.2 % vol 06/30/19 05:50 ABG Base Excess -3.2 mmol/L (-2-2) L 06/30/19 05:50 Microbiology 06/28/19 09:00 Blood - Peripheral Venous Blood Culture - Preliminary Pending Organism 06/28/19 12:50 Sputum - Endotrachea Suction/Ventilator Gram Stain - Final 06/28/19 12:50 Sputum - Endotrachea Suction/Ventilator Sputum Culture - Preliminary 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 Presumptive Mssa (Pbp2a Neg) 06/25/19 13:40 Blood - Peripheral Venous Blood Culture - Preliminary NO GROWTH OBTAINED AFTER 96 HOURS, INCUBATION TO CONTINUE FOR 1 DAYS. 06/25/19 13:20 Blood - Peripheral Venous Blood Culture - Preliminary NO GROWTH OBTAINED AFTER 96 HOURS, INCUBATION TO CONTINUE FOR 1 DAYS. 06/28/19 12:51 Urine - Urine Caceres Urine Culture - Final NO GROWTH OBTAINED 06/22/19 13:00 Blood - Peripheral Venous Blood Culture - Final Staphylococcus Warneri 06/22/19 13:00 Blood - Peripheral Venous Blood Culture - Final Staphylococcus Epidermidis 06/24/19 00:01 Urine - Urine Caceres Urine Culture - Final NO GROWTH OBTAINED 06/24/19 00:01 Urine For Antigen Detection Legionella Antigen - Final 06/24/19 00:01 Urine For Antigen Detection Streptococcus pneumoniae Antigen (M - Final Active Medications Acetaminophen (Tylenol -) 650 mg PO Q4H PRN PRN Reason: FEVER Last Admin: 06/28/19 22:28 Dose: 650 mg Documented by: Amino Acids (Prosource No Carb Liquid Pkt) 30 ml PO DAILY [facility] Last Admin: 06/30/19 10:48 Dose: 30 ml Documented by: Chlorhexidine Gluconate (Hibiclens For Decolonization -) 1 applic TP HS [facility] Last Admin: 06/29/19 22:28 Dose: 1 applic Documented by: Propofol (Diprivan -) 1,000,000 mcg in 100 mls @ 2.313 mls/hr IVPB TITR [facility]; Protocol Last Titration: 06/29/19 18:14 Dose: 25 mcg/kg/min, 11.567 mls/hr Documented by: Morphine Sulfate (Morphine 100mg/100ml-0.9% Nacl) 100 mg in 100 mls @ 1 mls/hr IVPB TITR [facility]; Protocol Last Infusion: 06/29/19 17:00 Dose: 8 mg/hr, 8 mls/hr Documented by: Sodium Chloride (Normal Saline -) 1,000 mls @ 125 mls/hr IV ASDIR [facility] Last Admin: 06/29/19 12:40 Dose: 125 mls/hr Documented by: Vecuronium [place] (Vecuronium [place]) 100 mg in 100 mls @ 4.599 mls/hr IVPB TITR [facility]; Protocol Last Admin: 06/29/19 12:19 Dose: 1 mcg/kg/min, 4.599 mls/hr Documented by: Piperacillin Sod/Tazobactam (Sod 3.375 gm/ Dextrose) 50 mls @ 100 mls/hr IVPB Q6H-IV [facility]; Protocol Last Admin: 06/30/19 09:37 Dose: 100 mls/hr Documented by: Lacosamide (Vimpat Injection -) 200 mg IVPB BID [facility] Last Admin: 06/30/19 10:51 Dose: 200 mg Documented by: Levetiracetam (Keppra Injection -) 1,000 mg IVPB BID [facility] Last Admin: 06/30/19 10:47 Dose: 1,000 mg Documented by: Methylprednisolone Sodium Succinate (Solu-Medrol -) 40 mg IVPUSH BID [facility] Last Admin: 06/30/19 10:49 Dose: 40 mg Documented by: Pantoprazole Sodium (Protonix Iv) 40 mg IVPUSH DAILY [facility] Last Admin: 06/30/19 10:48 Dose: 40 mg Documented by: Phenobarbital (Phenobarbital Liquid -) 60 mg GT BID [facility] Last Admin: 06/30/19 10:48 Dose: 60 mg Documented by: Topiramate (Topamax -) 200 mg PO TID [facility] Last Admin: 06/30/19 06:44 Dose: 200 mg Documented by: Vancomycin HCl (Vancomycin (Pre-Docked)) 1,000 mg IVPB BID [facility]; Protocol Last Admin: 06/30/19 10:51 Dose: 1,000 mg Documented by: Zinc Sulfate (Orazinc -) 220 mg PO BID [facility] Last Admin: 06/30/19 10:47 Dose: 220 mg Documented by: PHYSICAL EXAM: General: intubated, sedated, paralyzed HEENT: R periorbital hematoma PULM: coarse BS maeve CV: regular Abd: soft, benign Ext: warm, no edema A/ 38y M hx of developmental delay, seizures, now with acute respiratory failure likely secondary to COVID-19+/- strep PNA P/ -LPV (PBW 68; 9zb=665); increase RR rate to 35 -cont deep sedation/paralysis / prone as needed -send sputum culture -repeat CXR (worsening oxygenation) -cont steroids -ID following--> f/u re possibly broadening abx , piptaz,--MSSA ? oxacillin -s/p convalescent serum 06/25 -resend inflammatory markers -cont home AEDs -cont 80 BID lovenox for AC -cont PPI for GI ppx Karley ACNP [id number] 35min CCT
[2019-06-30 13:43] LABS: ARTERIAL BLD GAS O2 SATURATION 93.4 % (95-98); ARTERIAL BLOOD GAS BASE EXCESS -2.7 mmol/L (-2-2); ARTERIAL BLOOD GAS PCO2 47.7 mmHg (35-45); ARTERIAL BLOOD GAS PO2 69.7 mmHg (80-100)
--- NOTE | 2019-06-30 15:07 | PN ---
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 (short form) - Note 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: remains intubated and sedated requiring proning switched to vanco/zosyn yesterday s/p convalescent plasma Vital Signs Period Temp Pulse Resp BP Sys/Ortiz Pulse Ox Last 24 Hr 93.5 F-97.8 F 50-72 28-35 93-121/50-74 100-100 cor-rrr lungs decreased bs at bases abd soft,nt ext no edema CBC, BMP 06/30/19 05:45 06/30/19 05:45 Microbiology 06/25/19 13:40 Blood - Peripheral Venous Blood Culture - Final NO GROWTH AFTER 5 DAYS INCUBATION 06/25/19 13:20 Blood - Peripheral Venous Blood Culture - Final NO GROWTH AFTER 5 DAYS INCUBATION 06/29/19 12:30 Blood - Peripheral Venous Blood Culture - Preliminary NO GROWTH OBTAINED AFTER 24 HOURS, INCUBATION TO CONTINUE FOR 4 DAYS. 06/28/19 09:00 Blood - Peripheral Venous Blood Culture - Preliminary Pending Organism 06/28/19 12:50 Sputum - Endotrachea Suction/Ventilator Gram Stain - Final 06/28/19 12:50 Sputum - Endotrachea Suction/Ventilator Sputum Culture - Preliminary 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 Presumptive Mssa (Pbp2a Neg) 06/28/19 12:51 Urine - Urine Caceres Urine Culture - Final NO GROWTH OBTAINED 06/22/19 13:00 Blood - Peripheral Venous Blood Culture - Final Staphylococcus Warneri 06/22/19 13:00 Blood - Peripheral Venous Blood Culture - Final Staphylococcus Epidermidis 06/24/19 00:01 Urine - Urine Caceres Urine Culture - Final NO GROWTH OBTAINED 06/24/19 00:01 Urine For Antigen Detection Legionella Antigen - Final 06/24/19 00:01 Urine For Antigen Detection Streptococcus pneumoniae Antigen (M - Final imp/reccd bacteremia- [facility] [employer] one bottle 06/27, repeat 06/28 is negative hypoxemic resp failure bilateral infiltrates covid 19 positive continue vanco/zosyn- f/u cultures in am before adjusting antiibotics
[2019-06-30] MEDS: VECURONIUM BROMIDE 100 MG/100 ML BAG IVPB SCH (16:40)
--- NOTE | 2019-06-30 17:30 | PROC ---
Central Line Insertion Indication: Poor Venous Access, Vasopressor Risks and Benefits Explained: No Consent on Chart: No (COVID 19 pandemic, fraser consent) Central Line: Triple Lumen Catheter Anesthesia: 1% Lidocaine Sterile Technique: Yes Ultrasound Guided Assistance: No Position: Right Subclavian Post Insertion: Yes: Bilateral Breath Sounds Sterile Dressing Applied: Yes
[2019-06-30] MEDS: SODIUM CHLORIDE 1,000 ML IV SCH (18:24)
[2019-06-30] MEDS: CHLORHEXIDINE GLUCONATE 4% CLEANSER FOR DECOLONIZATION TP SCH (20:59)
[2019-06-30] MEDS: MORPHINE SULFATE/0.9% NACL/PF 100 MG/100 ML BAG IVPB SCH ×3 (20:59→21:26)
[2019-07-01] MEDS: PIPERACILLIN/TAZOB 3.375 GM 3.375 GM in DEXTROSE 5%-WATER - 50 ML IVPB SCH ×2 (02:50→09:25)
[2019-07-01] MEDS: TOPIRAMATE 200 MG TABLET PO SCH ×3 (04:47→22:18)
[2019-07-01 06:45] LABS: ARTERIAL BLD GAS O2 SATURATION 92.1 % (95-98); ARTERIAL BLOOD GAS BASE EXCESS -1.8 mmol/L (-2-2); ARTERIAL BLOOD GAS PCO2 53.4 mmHg (35-45); ARTERIAL BLOOD GAS PO2 69.6 mmHg (80-100)
[2019-07-01 06:46] LABS: ALLENS TEST POSITIVE
[2019-07-01 06:50] LABS: HEMATOCRIT 34.8 % (35.4-49); HEMOGLOBIN 11.2 GM/dL (11.7-16.9); MCH 28.7 pg (25.7-33.7); MCHC 32.1 g/dl (32.0-35.9); MEAN CELL VOLUME 89.6 fl (80-96); MEAN PLT VOLUME 8.6 fl (7.5-11.1); PLATELET COUNT 417 K/MM3 (134-434); RBC 3.89 M/mm3 (4.00-5.60); RDW 15.4 % (11.9-15.9); WHITE BLOOD COUNT 7.3 K/mm3 (4.0-10.0)
[2019-07-01 07:53] LABS: BLOOD UREA NITROGEN 12.4 mg/dL (7-18); CREATININE 0.3 mg/dL (0.55-1.3); MAGNESIUM 2.5 mg/dL (1.8-2.4); POTASSIUM 4.2 mmol/L (3.5-5.1)
[2019-07-01 08:21] LABS: CALCIUM 6.7 mg/dL (8.5-10.1)
[2019-07-01] MEDS: levETIRAcetam 500 MG/5 ML INJECTION VIAL IVPB SCH ×2 (09:51→22:17)
[2019-07-01] MEDS: PANTOPRAZOLE SODIUM 40 MG VIAL IVPUSH SCH (09:52)
[2019-07-01] MEDS: ZINC SULFATE 220 MG CAPSULE (FP) PO SCH ×2 (09:52→22:17)
[2019-07-01] MEDS: AMINO ACIDS/PROTEIN HYDROLYS 30 ML LIQUID.PKT PO SCH (09:52)
[2019-07-01] MEDS: PHENobarbital 20 MG/5 ML UNIT-DOSE CUP GT SCH ×2 (09:52→22:17)
[2019-07-01] MEDS: VANCOMYCIN 1 GM in D5W (PRE-DOCKED) 1,000 MG/250 ML IVPB SCH (09:53)
[2019-07-01] MEDS: Lacosamide 200 MG/20 ML VIAL IVPB SCH ×2 (09:53→22:18)
[2019-07-01] MEDS: methylPREDNISolone NA SUCC 40 MG/1 ML VIAL IVPUSH SCH ×2 (09:53→22:17)
--- NOTE | 2019-07-01 11:31 | PN ---
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 (short form) - Note 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: PULM/CCM 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: Seen and examined in ICU2 24 HRS EVENTS: -GPC in blood (contam), staph aureus in Sputum -supine VENT SETTINGS: 35/340/70/12 Pplat 36 P:F 200 ABG Results ABG pH 7.30 (7.35-7.45) L 07/01/19 05:29 ABG pCO2 at Pt Temp 53.4 mmHg (35-45) H 07/01/19 05:29 ABG pO2 at Pt Temp 69.6 mmHg (80-100) L 07/01/19 05:29 ABG HCO3 25.8 mmol/L (22-27) 07/01/19 05:29 ABG O2 Sat (Measured) 92.1 % (95-98) L 07/01/19 05:29 ABG O2 Content 26.9 % vol 07/01/19 05:29 ABG Base Excess -1.8 mmol/L (-2-2) 07/01/19 05:29 Microbiology 06/30/19 17:15 Sputum - Endotrachea Suction/Ventilator Gram Stain - Final 06/28/19 12:50 Sputum - Endotrachea Suction/Ventilator Gram Stain - Final 06/28/19 12:50 Sputum - Endotrachea Suction/Ventilator Sputum Culture - Final 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 Staphylococcus Aureus 06/28/19 09:00 Blood - Peripheral Venous Blood Culture - Preliminary Staphylococcus Coagulase Neg 06/29/19 12:30 Blood - Peripheral Venous Blood Culture - Preliminary Pending Organism 06/25/19 13:40 Blood - Peripheral Venous Blood Culture - Final NO GROWTH AFTER 5 DAYS INCUBATION 06/25/19 13:20 Blood - Peripheral Venous Blood Culture - Final NO GROWTH AFTER 5 DAYS INCUBATION 06/28/19 12:51 Urine - Urine Caceres Urine Culture - Final NO GROWTH OBTAINED 06/22/19 13:00 Blood - Peripheral Venous Blood Culture - Final Staphylococcus Warneri 06/22/19 13:00 Blood - Peripheral Venous Blood Culture - Final Staphylococcus Epidermidis 06/24/19 00:01 Urine - Urine Caceres Urine Culture - Final NO GROWTH OBTAINED 06/24/19 00:01 Urine For Antigen Detection Legionella Antigen - Final 06/24/19 00:01 Urine For Antigen Detection Streptococcus pneumoniae Antigen (M - Final Active Medications Acetaminophen (Tylenol -) 650 mg PO Q4H PRN PRN Reason: FEVER Last Admin: 06/28/19 22:28 Dose: 650 mg Documented by: Amino Acids (Prosource No Carb Liquid Pkt) 30 ml PO DAILY [facility] Last Admin: 07/01/19 09:52 Dose: 30 ml Documented by: Chlorhexidine Gluconate (Hibiclens For Decolonization -) 1 applic TP HS [facility] Last Admin: 06/30/19 20:59 Dose: 1 applic Documented by: Propofol (Diprivan -) 1,000,000 mcg in 100 mls @ 2.313 mls/hr IVPB TITR [facility]; Protocol Last Admin: 06/30/19 19:13 Dose: 25 mcg/kg/min, 11.567 mls/hr Documented by: Morphine Sulfate (Morphine 100mg/100ml-0.9% Nacl) 100 mg in 100 mls @ 1 mls/hr IVPB TITR TIKI; Protocol Last Admin: 06/30/19 21:26 Dose: Not Given Documented by: Sodium Chloride (Normal Saline -) 1,000 mls @ 125 mls/hr IV [facility] Last Admin: 07/01/19 14:03 Dose: 125 mls/hr Documented by: Vecuronium [place] (Vecuronium [place]) 100 mg in 100 mls @ 4.599 mls/hr IVPB TITR [facility]; Protocol Last Admin: 07/01/19 14:03 Dose: 1 mcg/kg/min, 4.599 mls/hr Documented by: Vancomycin HCl 1,250 mg/ (Dextrose) 250 mls @ 166.667 mls/hr IVPB Q12H [facility]; Protocol Lacosamide (Vimpat Injection -) 200 mg IVPB BID [facility] Last Admin: 07/01/19 09:53 Dose: 200 mg Documented by: Levetiracetam (Keppra Injection -) 1,000 mg IVPB BID [facility] Last Admin: 07/01/19 09:51 Dose: 1,000 mg Documented by: Methylprednisolone Sodium Succinate (Solu-Medrol -) 40 mg IVPUSH BID [facility] Last Admin: 07/01/19 09:53 Dose: 40 mg Documented by: Pantoprazole Sodium (Protonix Iv) 40 mg IVPUSH DAILY [facility] Last Admin: 07/01/19 09:52 Dose: 40 mg Documented by: Phenobarbital (Phenobarbital Liquid -) 60 mg GT BID [facility] Last Admin: 07/01/19 09:52 Dose: 60 mg Documented by: Topiramate (Topamax -) 200 mg PO TID [facility] Last Admin: 07/01/19 14:02 Dose: 200 mg Documented by: Zinc Sulfate (Orazinc -) 220 mg PO BID [facility] Last Admin: 07/01/19 09:52 Dose: 220 mg Documented by: PHYSICAL EXAM: General: intubated, sedated, paralyzed HEENT: R periorbital hematoma stable, PERRL sluggish PULM: coarse BS maeve , no wheezes CV: regular Abd: soft, benign, hypoactive BS Ext: warm, no edema A/ 38y M hx of developmental delay, seizures, now with acute respiratory failure likely secondary to COVID-19+/- strep PNA P/ -LPV (PBW 68; 1vw=648); increase RR rate to 35 -cont deep sedation/paralysis / prone as needed -cont steroids , after 4 days -ID following--> f/u re possibly broadening abx , piptaz,Vanco bid -s/p convalescent serum 06/25 -resend inflammatory markers tomorrow -cont home AEDs -cont 80 BID lovenox for AC -cont PPI for GI ppx -start Nutrition as able Karley ACNP [id number] 35min CCT
--- NOTE | 2019-07-01 13:15 | PN ---
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 (short form) - Note 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: new TLC placed yesterday remains intubated and sedated s/p convalescent plasma Vital Signs Period Temp Pulse Resp BP Sys/Ortiz Pulse Ox Last 24 Hr 96.9 F-99.3 F 70-90 30-35 99-142/53-76 94-100 cor-rrr lungs decreased bs at bases abd soft,nt ext no edema CBC, BMP 07/01/19 04:45 07/01/19 04:45 Microbiology 06/28/19 12:50 Sputum - Endotrachea Suction/Ventilator Gram Stain - Final 06/28/19 12:50 Sputum - Endotrachea Suction/Ventilator Sputum Culture - Final 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 Staphylococcus Aureus 06/28/19 09:00 Blood - Peripheral Venous Blood Culture - Preliminary Staphylococcus Coagulase Neg 06/29/19 12:30 Blood - Peripheral Venous Blood Culture - Preliminary Pending Organism 06/25/19 13:40 Blood - Peripheral Venous Blood Culture - Final NO GROWTH AFTER 5 DAYS INCUBATION 06/25/19 13:20 Blood - Peripheral Venous Blood Culture - Final NO GROWTH AFTER 5 DAYS INCUBATION 06/28/19 12:51 Urine - Urine Caceres Urine Culture - Final NO GROWTH OBTAINED 06/22/19 13:00 Blood - Peripheral Venous Blood Culture - Final Staphylococcus Warneri 06/22/19 13:00 Blood - Peripheral Venous Blood Culture - Final Staphylococcus Epidermidis 06/24/19 00:01 Urine - Urine Caceres Urine Culture - Final NO GROWTH OBTAINED 06/24/19 00:01 Urine For Antigen Detection Legionella Antigen - Final 06/24/19 00:01 Urine For Antigen Detection Streptococcus pneumoniae Antigen (M - Final vanco trough 10 imp/reccd bacteremia- back on vanco, awaiting blood culture results, repeat blood cultures line changed 06/29 hypoxemic resp failure bilateral infiltrates covid 19 positive-s/p convalescent plasma, s/p tocilizumab- will check q uantiferon vanco/zosyn day #3 d/c zosyn continue vancomycin pending repeat blood culture results, increase vanco to 1250 q12h repeat inflammatory markers prior pneumococcal antigen positive 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
[2019-07-01] MEDS: SODIUM CHLORIDE 1,000 ML IV SCH (14:03)
[2019-07-01] MEDS: VECURONIUM BROMIDE 100 MG/100 ML BAG IVPB SCH (14:03)
[2019-07-01] MEDS: MORPHINE SULFATE/0.9% NACL/PF 100 MG/100 ML BAG IVPB SCH (22:17)
[2019-07-01] MEDS: CHLORHEXIDINE GLUCONATE 4% CLEANSER FOR DECOLONIZATION TP SCH (22:17)
[2019-07-01] MEDS: VANCOMYCIN HCL 1,250 MG in DEXTROSE 5%-WATER - 250 ML IVPB SCH (22:26)
[2019-07-02] MEDS: PROPOFOL 1,000,000 MCG/100 ML VIAL IVPB SCH ×3 (04:37→21:15)
[2019-07-02] MEDS: SODIUM CHLORIDE 1,000 ML IV SCH ×3 (04:38→13:35)
[2019-07-02] MEDS: MORPHINE SULFATE/0.9% NACL/PF 100 MG/100 ML BAG IVPB SCH ×3 (04:39→23:33)
[2019-07-02] MEDS: TOPIRAMATE 200 MG TABLET PO SCH ×3 (05:50→21:15)
[2019-07-02 07:24] LABS: HEMATOCRIT 35.7 % (35.4-49); HEMOGLOBIN 11.5 GM/dL (11.7-16.9); MCHC 32.2 g/dl (32.0-35.9); MEAN CELL VOLUME 89.9 fl (80-96); MEAN PLT VOLUME 8.4 fl (7.5-11.1); PLATELET COUNT 393 K/MM3 (134-434); RBC 3.97 M/mm3 (4.00-5.60); RDW 15.5 % (11.9-15.9); WHITE BLOOD COUNT 5.9 K/mm3 (4.0-10.0)
[2019-07-02 07:27] LABS: BLOOD UREA NITROGEN 11.2 mg/dL (7-18); CALCIUM 7.1 mg/dL (8.5-10.1); CREATININE 0.2 mg/dL (0.55-1.3); MAGNESIUM 2.4 mg/dL (1.8-2.4); PHOSPHOROUS 2.4 mg/dL (2.5-4.9); POTASSIUM 4.2 mmol/L (3.5-5.1)
[2019-07-02 07:34] LABS: ARTERIAL BLD GAS O2 SATURATION 88.3 % (95-98); ARTERIAL BLOOD GAS BASE EXCESS -0.8 mmol/L (-2-2); ARTERIAL BLOOD GAS PCO2 53.1 mmHg (35-45); ARTERIAL BLOOD GAS pH 7.31 (7.35-7.45)
[2019-07-02] MEDS: levETIRAcetam 500 MG/5 ML INJECTION VIAL IVPB SCH ×2 (09:31→21:14)
[2019-07-02] MEDS: PHENobarbital 20 MG/5 ML UNIT-DOSE CUP GT SCH ×2 (09:34→21:15)
[2019-07-02] MEDS: ZINC SULFATE 220 MG CAPSULE (FP) PO SCH ×2 (09:34→21:14)
[2019-07-02] MEDS: PANTOPRAZOLE SODIUM 40 MG VIAL IVPUSH SCH (09:35)
[2019-07-02] MEDS: AMINO ACIDS/PROTEIN HYDROLYS 30 ML LIQUID.PKT PO SCH (09:35)
[2019-07-02] MEDS: methylPREDNISolone NA SUCC 40 MG/1 ML VIAL IVPUSH SCH ×2 (09:37→21:15)
[2019-07-02] MEDS: Lacosamide 200 MG/20 ML VIAL IVPB SCH ×2 (09:41→21:15)
[2019-07-02] MEDS: VECURONIUM BROMIDE 100 MG/100 ML BAG IVPB SCH (09:42)
[2019-07-02] MEDS: VANCOMYCIN HCL 1,250 MG in DEXTROSE 5%-WATER - 250 ML IVPB SCH ×2 (09:47→21:15)
--- NOTE | 2019-07-02 10:07 | PN ---
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 (short form) - Note 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: SEEN AND EXAMINED IN AICU 24 HRS EVENTS : -remains intubated, sedated, paralyzed -worsening oxygenation, fiO2 up to 100% -Neg Bacilli in sputum 06/28 VENT SETTINGS: 35/340/70/10 Plat 42 Drips: Vec @0.9 Morphine @8 Propofol @25 Active Medications Generic Name Dose Route Start Last Admin Trade Name Freq PRN Reason Stop Dose Admin Acetaminophen 650 mg 06/22/19 23:14 06/28/19 22:28 Tylenol - PO 650 mg Q4H PRN Administration FEVER Amino Acids 30 ml 06/25/19 10:00 07/01/19 09:52 Prosource No Carb Liquid Pkt PO 30 ml DAILY TIKI Administration Chlorhexidine Gluconate 1 applic 06/22/19 22:00 07/01/19 22:17 Hibiclens For Decolonization - TP 1 applic HS [facility]I Administration Propofol 1,000,000 mcg in 100 mls @ 2.313 mls/hr 06/22/19 14:00 07/02/19 04:37 Diprivan - IVPB 25 mcg/kg/min TITR TIKI 11.567 mls/hr Administration Protocol 5 MCG/KG/MIN Morphine Sulfate 100 mg in 100 mls @ 1 mls/hr 06/22/19 21:30 07/02/19 04:40 Morphine 100mg/100ml-0.9% Nacl IVPB Not Given TITR TIKI Protocol 1 MG/HR Sodium Chloride 1,000 mls @ 125 mls/hr 06/27/19 12:00 07/02/19 04:38 Normal Saline - IV 125 mls/hr ASDIR TIKI Administration Vecuronium [place] 100 mg in 100 mls @ 4.599 mls/hr 06/28/19 10:15 07/01/19 14:03 Vecuronium [place] IVPB 1 mcg/kg/min TITR TIKI 4.599 mls/hr Administration Protocol 1 MCG/KG/MIN Vancomycin HCl 1,250 mg/ 250 mls @ 166.667 mls/hr 07/01/19 22:00 07/01/19 22:26 Dextrose IVPB 166.667 mls/hr Q12H [facility] Administration Protocol Lacosamide 200 mg 06/23/19 10:00 07/01/19 22:18 Vimpat Injection - IVPB 200 mg BID [facility] Administration Levetiracetam 1,000 mg 06/23/19 10:00 07/01/19 22:17 Keppra Injection - IVPB 1,000 mg BID [facility] Administration Methylprednisolone Sodium Succinate 40 mg 06/25/19 10:00 07/01/19 22:17 Solu-Medrol - IVPUSH 40 mg BID [facility] Administration Pantoprazole Sodium 40 mg 06/24/19 10:00 07/01/19 09:52 Protonix Iv IVPUSH 40 mg DAILY [facility] Administration Phenobarbital 60 mg 06/28/19 10:00 07/01/19 22:17 Phenobarbital Liquid - GT 60 mg BID [facility] Administration Topiramate 200 mg 06/23/19 14:00 07/02/19 05:50 Topamax - PO 200 mg TID [facility] Administration Zinc Sulfate 220 mg 06/23/19 22:00 07/01/19 22:17 Orazinc - PO 220 mg BID [facility] Administration Vital Signs Period Temp Pulse Resp BP Sys/Ortiz Pulse Ox Last 24 Hr 96.2 F-98.4 F 50-83 25-35 124-154/67-91 90-95 Intake & Output 06/29/19 06/30/19 07/01/19 07/02/19 23:59 23:59 23:59 23:59 Intake Total 3630.2 1905 5183.4 2599.5 Output Total 1450 1825 4750 1700 Balance 2180.2 80 433.4 899.5 ABG Results ABG pH 7.31 (7.35-7.45) L 07/02/19 05:30 ABG pCO2 at Pt Temp 53.1 mmHg (35-45) H 07/02/19 05:30 ABG pO2 at Pt Temp 61.0 mmHg (80-100) L 07/02/19 05:30 ABG HCO3 25.7 mmol/L (22-27) 07/02/19 05:30 ABG O2 Sat (Measured) 88.3 % (95-98) L 07/02/19 05:30 ABG O2 Content 15.3 % vol 07/02/19 05:30 ABG Base Excess -0.8 mmol/L (-2-2) 07/02/19 05:30 CBCD WBC 5.9 K/mm3 (4.0-10.0) 07/02/19 05:00 RBC 3.97 M/mm3 (4.00-5.60) L 07/02/19 05:00 Hgb 11.5 GM/dL (11.7-16.9) L 07/02/19 05:00 Hct 35.7 % (35.4-49) 07/02/19 05:00 MCV 89.9 fl (80-96) 07/02/19 05:00 MCHC 32.2 g/dl (32.0-35.9) 07/02/19 05:00 RDW 15.5 % (11.9-15.9) 07/02/19 05:00 Plt Count 393 K/MM3 (134-434) 07/02/19 05:00 MPV 8.4 fl (7.5-11.1) 07/02/19 05:00 CMP Sodium 150 mmol/L (136-145) H 07/02/19 05:00 Potassium 4.2 mmol/L (3.5-5.1) 07/02/19 05:00 Chloride 120 mmol/L (98-107) H 07/02/19 05:00 Carbon Dioxide 26 mmol/L (21-32) 07/02/19 05:00 Anion Gap 4 MMOL/L (8-16) L 07/02/19 05:00 BUN 11.2 mg/dL (7-18) 07/02/19 05:00 Creatinine 0.2 mg/dL (0.55-1.3) L 07/02/19 05:00 Calcium 7.1 mg/dL (8.5-10.1) L 07/02/19 05:00 Total Bilirubin 0.8 mg/dL (0.2-1) 06/26/19 06:49 AST 64 U/L (15-37) H 06/26/19 06:49 ALT 38 U/L (13-61) 06/26/19 06:49 Alkaline Phosphatase 89 U/L (45-117) 06/26/19 06:49 Total Protein 5.8 g/dl (6.4-8.2) L 06/26/19 06:49 Albumin 1.9 g/dl (3.4-5.0) L 06/26/19 06:49 Microbiology 06/28/19 09:00 Blood - Peripheral Venous Blood Culture - Final Staphylococcus Epidermidis 06/30/19 17:15 Sputum - Endotrachea Suction/Ventilator Gram Stain - Final 06/30/19 17:15 Sputum - Endotrachea Suction/Ventilator Sputum Culture - Preliminary Lactose Fermenting Neg Bacilli 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 06/29/19 12:30 Blood - Peripheral Venous Blood Culture - Preliminary Staphylococcus Coagulase Neg 06/28/19 12:50 Sputum - Endotrachea Suction/Ventilator Gram Stain - Final 06/28/19 12:50 Sputum - Endotrachea Suction/Ventilator Sputum Culture - Final 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 Staphylococcus Aureus 06/25/19 13:40 Blood - Peripheral Venous Blood Culture - Final NO GROWTH AFTER 5 DAYS INCUBATION 06/25/19 13:20 Blood - Peripheral Venous Blood Culture - Final NO GROWTH AFTER 5 DAYS INCUBATION 06/28/19 12:51 Urine - Urine Caceres Urine Culture - Final NO GROWTH OBTAINED 06/22/19 13:00 Blood - Peripheral Venous Blood Culture - Final Staphylococcus Warneri 06/22/19 13:00 Blood - Peripheral Venous Blood Culture - Final Staphylococcus Epidermidis 06/24/19 00:01 Urine - Urine Caceres Urine Culture - Final NO GROWTH OBTAINED 06/24/19 00:01 Urine For Antigen Detection Legionella Antigen - Final 06/24/19 00:01 Urine For Antigen Detection Streptococcus pneumoniae Antigen (M - Final PHYSICAL EXAM: General: intubated, sedated, paralyzed HEENT: R periorbital hematoma stable, PERRL sluggish PULM: coarse BS maeve , no wheezes CV: regular Abd: soft, benign, hypoactive BS Ext: warm, no edema A/ 38y M hx of developmental delay, seizures, admitted with acute respiratory failure likely secondary to COVID-19+/- strep PNA. P/ -LPV (PBW 68; 3ff=537) -cont deep sedation/paralysis -prone given P:F <100 -cont steroids --> decrease to 20mg BID today -s/p convalescent serum and Toci -ID following -restart zosyn (gr neg bacilli in sputum) -f/u sputum speciation -cont vanco -cont home AEDs -cont 80 BID lovenox for AC -cont PPI for GI ppx Jessica Dionneginaure, ACNP CCT: 35 min
[2019-07-02] MEDS: PIPERACILLIN/TAZOB 3.375 GM 3.375 GM in DEXTROSE 5%-WATER - 50 ML IVPB SCH ×2 (11:58→17:47)
[2019-07-02 12:12] LABS: ARTERIAL BLD GAS O2 SATURATION 96.2 % (95-98); ARTERIAL BLOOD GAS BASE EXCESS -1.9 mmol/L (-2-2); ARTERIAL BLOOD GAS PCO2 44.6 mmHg (35-45); ARTERIAL BLOOD GAS PO2 86.6 mmHg (80-100); ARTERIAL BLOOD GAS pH 7.34 (7.35-7.45)
--- NOTE | 2019-07-02 15:22 | PN ---
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 (short form) - Note 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: new TLC placed yesterday remains intubated and sedated Vital Signs Period Temp Pulse Resp BP Sys/Ortiz Pulse Ox Last 24 Hr 96.4 F-98.4 F 50-88 25-35 115-154/64-91 91-96 cor-rrr lungs decreased bs at bases abd soft,nt ext trace edema CBC, BMP 07/02/19 05:00 07/02/19 05:00 Microbiology 06/28/19 09:00 Blood - Peripheral Venous Blood Culture - Final Staphylococcus Epidermidis 06/30/19 17:15 Sputum - Endotrachea Suction/Ventilator Gram Stain - Final 06/30/19 17:15 Sputum - Endotrachea Suction/Ventilator Sputum Culture - Preliminary Lactose Fermenting Neg Bacilli 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 06/29/19 12:30 Blood - Peripheral Venous Blood Culture - Preliminary Staphylococcus Coagulase Neg 06/28/19 12:50 Sputum - Endotrachea Suction/Ventilator Gram Stain - Final 06/28/19 12:50 Sputum - Endotrachea Suction/Ventilator Sputum Culture - Final 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 Staphylococcus Aureus 06/25/19 13:40 Blood - Peripheral Venous Blood Culture - Final NO GROWTH AFTER 5 DAYS INCUBATION 06/25/19 13:20 Blood - Peripheral Venous Blood Culture - Final NO GROWTH AFTER 5 DAYS INCUBATION 06/28/19 12:51 Urine - Urine Caceres Urine Culture - Final NO GROWTH OBTAINED 06/22/19 13:00 Blood - Peripheral Venous Blood Culture - Final Staphylococcus Warneri 06/22/19 13:00 Blood - Peripheral Venous Blood Culture - Final Staphylococcus Epidermidis 06/24/19 00:01 Urine - Urine Caceres Urine Culture - Final NO GROWTH OBTAINED 06/24/19 00:01 Urine For Antigen Detection Legionella Antigen - Final 06/24/19 00:01 Urine For Antigen Detection Streptococcus pneumoniae Antigen (M - Final Laboratory Tests 06/22/19 06/24/19 06/29/19 12:00 06:00 15:40 C-Reactive Protein 29.1 H 20.5 H COVID-19 ([facility]EROY) Detected H 07/02/19 05:00 C-Reactive Protein 2.5 H COVID-19 ([facility]ERO[facility]) vanco trough 10 imp/reccd bacteremia- on vanco, check trough in am line changed 06/29 hypoxemic resp failure bilateral infiltrates covid 19 positive-s/p convalescent plasma, s/p tocilizumab- will check quantiferon vanco/zosyn day #4 zosyn resumedd today s/p positive pneumococcal antigen improved crp
[2019-07-02 15:27] LABS: ARTERIAL BLOOD GAS BASE EXCESS 0.3 mmol/L (-2-2); ARTERIAL BLOOD GAS PCO2 48.4 mmHg (35-45); ARTERIAL BLOOD GAS PO2 176 mmHg (80-100); ARTERIAL BLOOD GAS pH 7.34 (7.35-7.45)
[2019-07-02] MEDS: CHLORHEXIDINE GLUCONATE 4% CLEANSER FOR DECOLONIZATION TP SCH (21:14)
[2019-07-03] MEDS: PIPERACILLIN/TAZOB 3.375 GM 3.375 GM in DEXTROSE 5%-WATER - 50 ML IVPB SCH (01:40)
[2019-07-03] MEDS: TOPIRAMATE 200 MG TABLET PO SCH ×3 (05:41→21:19)
[2019-07-03 06:00] LABS: HEMATOCRIT 35.9 % (35.4-49); HEMOGLOBIN 11.7 GM/dL (11.7-16.9); MCH 29.2 pg (25.7-33.7); MCHC 32.6 g/dl (32.0-35.9); MEAN CELL VOLUME 89.6 fl (80-96); MEAN PLT VOLUME 8.8 fl (7.5-11.1); PLATELET COUNT 354 K/MM3 (134-434); RBC 4.01 M/mm3 (4.00-5.60); RDW 15.1 % (11.9-15.9); WHITE BLOOD COUNT 10.1 K/mm3 (4.0-10.0)
[2019-07-03 06:14] LABS: BLOOD UREA NITROGEN 11.6 mg/dL (7-18); CALCIUM 7.5 mg/dL (8.5-10.1); CREATININE 0.2 mg/dL (0.55-1.3); MAGNESIUM 2.1 mg/dL (1.8-2.4); PHOSPHOROUS 3.1 mg/dL (2.5-4.9); POTASSIUM 4.3 mmol/L (3.5-5.1)
[2019-07-03] MEDS: levETIRAcetam 500 MG/5 ML INJECTION VIAL IVPB SCH ×2 (10:26→21:19)
[2019-07-03] MEDS: PANTOPRAZOLE SODIUM 40 MG VIAL IVPUSH SCH (10:27)
[2019-07-03] MEDS: methylPREDNISolone NA SUCC 40 MG/1 ML VIAL IVPUSH SCH ×2 (10:27→21:19)
[2019-07-03] MEDS: ZINC SULFATE 220 MG CAPSULE (FP) PO SCH ×2 (10:27→21:19)
[2019-07-03] MEDS: Lacosamide 200 MG/20 ML VIAL IVPB SCH ×2 (10:27→21:19)
[2019-07-03] MEDS: PHENobarbital 20 MG/5 ML UNIT-DOSE CUP GT SCH ×2 (10:27→21:19)
[2019-07-03] MEDS: AMINO ACIDS/PROTEIN HYDROLYS 30 ML LIQUID.PKT PO SCH (10:27)
--- NOTE | 2019-07-03 11:28 | PN ---
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 (short form) - Note 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: PULM/CCM 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: Seen and examined in ICU2 24 HRS EVENTS: -supinated this am, ABG pending VENT SETTINGS: 35/340/70/12 Pplat 34 ABG Results ABG pH 7.32 (7.35-7.45) L 07/03/19 10:30 ABG pCO2 at Pt Temp 60.2 mmHg (35-45) H 07/03/19 10:30 ABG pO2 at Pt Temp 69.4 mmHg (80-100) L 07/03/19 10:30 ABG HCO3 30.4 mmol/L (22-27) H 07/03/19 10:30 ABG O2 Sat (Measured) 91.8 % (95-98) L 07/03/19 10:30 ABG O2 Content 27.3 % vol 07/03/19 10:30 ABG Base Excess 2.0 mmol/L (-2-2) 07/03/19 10:30 Active Medications Acetaminophen (Tylenol -) 650 mg PO Q4H PRN PRN Reason: FEVER Last Admin: 06/28/19 22:28 Dose: 650 mg Documented by: Amino Acids (Prosource No Carb Liquid Pkt) 30 ml PO DAILY [facility] Last Admin: 07/03/19 10:27 Dose: 30 ml Documented by: Chlorhexidine Gluconate (Hibiclens For Decolonization -) 1 applic TP HS [facility] Last Admin: 07/02/19 21:14 Dose: 1 applic Documented by: Propofol (Diprivan -) 1,000,000 mcg in 100 mls @ 2.313 mls/hr IVPB TITR [facility]; Protocol Last Titration: 07/03/19 07:27 Dose: 25 mcg/kg/min, 11.567 mls/hr Documented by: Morphine Sulfate (Morphine 100mg/100ml-0.9% Nacl) 100 mg in 100 mls @ 1 mls/hr IVPB TITR [facility]; Protocol Last Admin: 07/02/19 23:33 Dose: 8 mg/hr, 8 mls/hr Documented by: Vecuronium [place] (Vecuronium [place]) 100 mg in 100 mls @ 4.599 mls/hr IVPB TITR [facility]; Protocol Last Admin: 07/02/19 09:42 Dose: 1 mcg/kg/min, 4.599 mls/hr Documented by: Vancomycin HCl 1,250 mg/ (Dextrose) 250 mls @ 166.667 mls/hr IVPB Q12H [facility]; Protocol Last Admin: 07/02/19 21:15 Dose: 166.667 mls/hr Documented by: Sodium Chloride (Normal Saline -) 1,000 mls @ 25 mls/hr IV ASDIR [facility] Last Admin: 07/02/19 13:35 Dose: 25 mls/hr Documented by: Ertapenem 1 gm/ Sodium (Chloride) 50 mls @ 100 mls/hr IVPB DAILY [facility] Lacosamide (Vimpat Injection -) 200 mg IVPB BID [facility] Last Admin: 07/03/19 10:27 Dose: 200 mg Documented by: Levetiracetam (Keppra Injection -) 1,000 mg IVPB BID [facility] Last Admin: 07/03/19 10:26 Dose: 1,000 mg Documented by: Methylprednisolone Sodium Succinate (Solu-Medrol -) 20 mg IVPUSH BID [facility] Last Admin: 07/03/19 10:27 Dose: 20 mg Documented by: Pantoprazole Sodium (Protonix Iv) 40 mg IVPUSH DAILY [facility] Last Admin: 07/03/19 10:27 Dose: 40 mg Documented by: Phenobarbital (Phenobarbital Liquid -) 60 mg GT BID [facility] Last Admin: 07/03/19 10:27 Dose: 60 mg Documented by: Topiramate (Topamax -) 200 mg PO TID [facility] Last Admin: 07/03/19 05:41 Dose: 200 mg Documented by: Zinc Sulfate (Orazinc -) 220 mg PO BID [facility] Last Admin: 07/03/19 10:27 Dose: 220 mg Documented by: PHYSICAL EXAM: General: intubated, sedated, paralyzed HEENT: R periorbital hematoma stable, PERRL sluggish PULM: coarse BS maeve , no wheezes CV: regular Abd: soft, benign, hypoactive BS Ext: warm, trace edema A/ 38y M hx of developmental delay, seizures, now with acute respiratory failure likely secondary to COVID-19+/- strep PNA P/ -LPV (PBW 68; 3vi=305); increase RR rate to 35 -cont deep sedation/paralysis / prone as needed -cont steroids , after 4 days -ID following--> abx , Erta, vanco -s/p convalescent serum 06/25 -cont home AEDs -cont 80 BID lovenox for AC -cont PPI for GI ppx -start Nutrition as able Karley ACNP [id number] 35min CCT
[2019-07-03 11:36] LABS: ARTERIAL BLD GAS O2 SATURATION 91.8 % (95-98); ARTERIAL BLOOD GAS PCO2 60.2 mmHg (35-45); ARTERIAL BLOOD GAS PO2 69.4 mmHg (80-100); ARTERIAL BLOOD GAS pH 7.32 (7.35-7.45)
[2019-07-03] MEDS: ERTAPENEM SODIUM 1 GM in SODIUM CHLORIDE 50 ML IVPB SCH (12:17)
[2019-07-03] MEDS: VANCOMYCIN HCL 1,250 MG in DEXTROSE 5%-WATER - 250 ML IVPB SCH ×2 (12:19→21:19)
--- NOTE | 2019-07-03 13:32 | PN ---
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 (short form) - Note 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: remains intubated and sedated Vital Signs Period Temp Pulse Resp BP Sys/Ortiz Pulse Ox Last 24 Hr 96.8 F-98.0 F 48-88 30-35 85-130/64-110 96-97 cor-rrr llungs decreased bs at bases abd soft,nt ext no edema +anthony, +CVP CBC, BMP 07/03/19 04:30 07/03/19 04:30 Laboratory Tests 06/22/19 06/24/19 06/29/19 12:00 06:00 15:40 C-Reactive Protein 29.1 H 20.5 H COVID-19 ([facility]) Detected H 07/02/19 05:00 C-Reactive Protein 2.5 H COVID-19 ([facility]Y) Microbiology 06/29/19 12:30 Blood - Peripheral Venous Blood Culture - Final Staphylococcus Epidermidis 06/30/19 17:15 Sputum - Endotrachea Suction/Ventilator Gram Stain - Final 06/30/19 17:15 Sputum - Endotrachea Suction/Ventilator Sputum Culture - Final Escherichia Coli Esbl Clay Puddler 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 07/01/19 18:15 Blood - Peripheral Venous Blood Culture - Preliminary NO GROWTH OBTAINED AFTER 24 HOURS, INCUBATION TO CONTINUE FOR 4 DAYS. 06/28/19 09:00 Blood - Peripheral Venous Blood Culture - Final Staphylococcus Epidermidis 06/28/19 12:50 Sputum - Endotrachea Suction/Ventilator Gram Stain - Final 06/28/19 12:50 Sputum - Endotrachea Suction/Ventilator Sputum Culture - Final 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 Staphylococcus Aureus 06/25/19 13:40 Blood - Peripheral Venous Blood Culture - Final NO GROWTH AFTER 5 DAYS INCUBATION 06/25/19 13:20 Blood - Peripheral Venous Blood Culture - Final NO GROWTH AFTER 5 DAYS INCUBATION 06/28/19 12:51 Urine - Urine Anthony Urine Culture - Final NO GROWTH OBTAINED 06/22/19 13:00 Blood - Peripheral Venous Blood Culture - Final Staphylococcus Warneri 06/22/19 13:00 Blood - Peripheral Venous Blood Culture - Final Staphylococcus Epidermidis 06/24/19 00:01 Urine - Urine Anthony Urine Culture - Final NO GROWTH OBTAINED 06/24/19 00:01 Urine For Antigen Detection Legionella Antigen - Final 06/24/19 00:01 Urine For Antigen Detection Streptococcus pneumoniae Antigen (M - Final vanco trough 6.7 imp/reccd bacteremia- on vanco, check trough in am -will reepat, dose increased but level is lower, repeat blood culture 06/30 is negative line changed 06/29 hypoxemic resp failure bilateral infiltrates covid 19 positive-s/p convalescent plasma, s/p tocilizumab- will check quantiferon switch to ertapenem for ecoli esbl in sputum continue seizure meds s/p positive pneumococcal antigen improved crp
[2019-07-03] MEDS: PROPOFOL 1,000,000 MCG/100 ML VIAL IVPB SCH ×2 (14:39→22:08)
--- NOTE | 2019-07-03 15:06 | PROC ---
Central Line Insertion - Procedure Note ARTERIAL LINE TIME OUT performed prior to this procedure with verbal confirmation of correct patient identity, correct side, agreement of the procedure, correct patient position, availability of necessary equipment. Risk of possible infection and bleeding have been discussed with the patient. Safety precautions based on patient history or medication use has been addressed. Indication: Other (BP surveillance) Central Line: Other (Arterial Line) Area prepped with Chlorhexidine solution then draped using sterile barrier protection. Ultrasound Guided Assistance: Yes Site: Right Radial Artery Pulsatile, bright red blood noted from hub of needle. The catheter was introduced. + dicrotic notch on monitor. Sterile occlusive dressing applied. No complications.
[2019-07-03] MEDS: CHOLECALCIFEROL (VIT D3) 400 UNIT (10 MCG) TABLET PO SCH (17:59)
[2019-07-03] MEDS: SODIUM CHLORIDE 1,000 ML IV SCH ×2 (19:06→19:59)
[2019-07-03] MEDS: VECURONIUM BROMIDE 100 MG/100 ML BAG IVPB SCH (19:59)
[2019-07-03] MEDS: CHLORHEXIDINE GLUCONATE 4% CLEANSER FOR DECOLONIZATION TP SCH (21:18)
[2019-07-04] MEDS: MORPHINE SULFATE/0.9% NACL/PF 100 MG/100 ML BAG IVPB SCH (04:07)
[2019-07-04] MEDS: TOPIRAMATE 200 MG TABLET PO SCH ×3 (05:32→21:17)
[2019-07-04 06:02] LABS: ARTERIAL BLD GAS O2 SATURATION 96.4 % (95-98); ARTERIAL BLOOD GAS BASE EXCESS 4.8 mmol/L (-2-2); ARTERIAL BLOOD GAS PCO2 55.9 mmHg (35-45); ARTERIAL BLOOD GAS pH 7.35 (7.35-7.45)
[2019-07-04 06:46] LABS: ALLENS TEST POSITIVE
[2019-07-04 06:52] LABS: HEMATOCRIT 37.3 % (35.4-49); HEMOGLOBIN 11.8 GM/dL (11.7-16.9); MCH 28.7 pg (25.7-33.7); MCHC 31.8 g/dl (32.0-35.9); MEAN CELL VOLUME 90.2 fl (80-96); MEAN PLT VOLUME 8.8 fl (7.5-11.1); PLATELET COUNT 345 K/MM3 (134-434); RBC 4.13 M/mm3 (4.00-5.60); RDW 14.8 % (11.9-15.9); WHITE BLOOD COUNT 9.4 K/mm3 (4.0-10.0)
[2019-07-04 07:06] LABS: ALBUMIN 1.6 g/dl (3.4-5.0); BILIRUBIN,TOTAL 0.2 mg/dL (0.2-1); BLOOD UREA NITROGEN 11.6 mg/dL (7-18); CALCIUM 7.4 mg/dL (8.5-10.1); CREATININE 0.2 mg/dL (0.55-1.3); PHOSPHOROUS 3.2 mg/dL (2.5-4.9); POTASSIUM 3.7 mmol/L (3.5-5.1); TOT PROT 4.8 g/dl (6.4-8.2)
[2019-07-04] MEDS: ZINC SULFATE 220 MG CAPSULE (FP) PO SCH ×2 (10:12→21:16)
[2019-07-04] MEDS: PANTOPRAZOLE SODIUM 40 MG VIAL IVPUSH SCH (10:13)
[2019-07-04] MEDS: Lacosamide 200 MG/20 ML VIAL IVPB SCH ×2 (10:13→20:30)
[2019-07-04] MEDS: methylPREDNISolone NA SUCC 40 MG/1 ML VIAL IVPUSH SCH ×2 (10:13→21:17)
[2019-07-04] MEDS: AMINO ACIDS/PROTEIN HYDROLYS 30 ML LIQUID.PKT PO SCH (10:13)
[2019-07-04] MEDS: levETIRAcetam 500 MG/5 ML INJECTION VIAL IVPB SCH ×2 (10:13→21:16)
[2019-07-04] MEDS: CHOLECALCIFEROL (VIT D3) 400 UNIT (10 MCG) TABLET PO SCH (10:13)
[2019-07-04] MEDS: VANCOMYCIN HCL 1,250 MG in DEXTROSE 5%-WATER - 250 ML IVPB SCH ×2 (10:13→22:00)
[2019-07-04] MEDS: PHENobarbital 20 MG/5 ML UNIT-DOSE CUP GT SCH ×2 (10:13→21:17)
[2019-07-04] MEDS: ERTAPENEM SODIUM 1 GM in SODIUM CHLORIDE 50 ML IVPB SCH (10:53)
--- NOTE | 2019-07-04 13:12 | PN ---
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 (short form) - Note 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: PULM/CCM 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: Seen and examined in ICU2 24 HRS EVENTS: -remained supine, ETT partially dislodged during turning -no fever -UOP remains good -pPlat cont to rise. VENT SETTINGS: 35/340/70/12 Pplat 37 P/F 125 ABG Results ABG pH 7.35 (7.35-7.45) 07/04/19 05:15 ABG pCO2 at Pt Temp 55.9 mmHg (35-45) H 07/04/19 05:15 ABG pO2 at Pt Temp 88.0 mmHg (80-100) 07/04/19 05:15 ABG HCO3 30.2 mmol/L (22-27) H 07/04/19 05:15 ABG O2 Sat (Measured) 96.4 % (95-98) 07/04/19 05:15 ABG O2 Content 7.9 % vol 07/04/19 05:15 ABG Base Excess 4.8 mmol/L (-2-2) H 07/04/19 05:15 CBC, BMP 07/04/19 05:00 07/04/19 05:00 Vital Signs Temp 97.8 F 07/04/19 12:00 Pulse 79 07/04/19 12:00 Resp 30 H 07/04/19 12:00 BP 120/72 07/04/19 12:00 Pulse Ox 97 07/04/19 10:00 Intake & Output 07/03/19 07/04/19 07/04/19 23:59 11:59 23:59 Intake Total 1552.9 1155.8 Output Total 1800 1100 Balance -247.1 55.8 Intake: IV 436.9 530.8 DIPRIVAN - 1,000,000 mcg 110.3 110 In 100 ml @ 5 MCG/KG/MIN 2.313 mls/hr IVPB TITR [facility] Rx#:[id number] MORPHINE 100MG/100ML-0.9% 70 76.1 NACL 100 mg In 100 ml @ 1 MG/HR 1 mls/hr IVPB TITR [facility] Rx#:[id number] Normal Saline - 1,000 ml 209.3 300 @ 25 mls/hr IV ASDIR [facility] Rx#:[id number] VECURONIUM BROMIDE 100 mg 47.3 44.7 In 100 ml @ 1 MCG/KG/MIN 4.599 mls/hr IVPB TITR [facility] Rx#:[id number] IVPB 700 Tube Feeding 336 505 Tube Irrigant 80 120 Output: Urine 1800 1100 Caceres 1800 1100 Other: Voiding Method Indwelling Catheter Indwelling Catheter Active Medications Acetaminophen (Tylenol -) 650 mg PO Q4H PRN PRN Reason: FEVER Last Admin: 06/28/19 22:28 Dose: 650 mg Documented by: Amino Acids (Prosource No Carb Liquid Pkt) 30 ml PO DAILY [facility] Last Admin: 07/04/19 10:13 Dose: 30 ml Documented by: Chlorhexidine Gluconate (Hibiclens For Decolonization -) 1 applic TP HS [facility] Last Admin: 07/03/19 21:18 Dose: 1 applic Documented by: Cholecalciferol (Vitamin D3 -) 800 unit PO DAILY [facility] Last Admin: 07/04/19 10:13 Dose: 800 unit Documented by: Propofol (Diprivan -) 1,000,000 mcg in 100 mls @ 2.313 mls/hr IVPB TITR [facility]; Protocol Last Titration: 07/04/19 07:40 Dose: 25 mcg/kg/min, 11.567 mls/hr Documented by: Morphine Sulfate (Morphine 100mg/100ml-0.9% Nacl) 100 mg in 100 mls @ 1 mls/hr IVPB TITR [facility]; Protocol Last Admin: 07/04/19 04:07 Dose: 8 mg/hr, 8 mls/hr Documented by: Vecuronium [place] (Vecuronium [place]) 100 mg in 100 mls @ 4.599 mls/hr IVPB TITR [facility]; Protocol Last Admin: 07/03/19 19:59 Dose: 1 mcg/kg/min, 4.599 mls/hr Documented by: Vancomycin HCl 1,250 mg/ (Dextrose) 250 mls @ 166.667 mls/hr IVPB Q12H [facility]; Protocol Last Admin: 07/04/19 10:13 Dose: 166.667 mls/hr Documented by: Sodium Chloride (Normal Saline -) 1,000 mls @ 25 mls/hr IV ASDIR [facility] Last Admin: 07/03/19 19:59 Dose: 25 mls/hr Documented by: Ertapenem 1 gm/ Sodium (Chloride) 50 mls @ 100 mls/hr IVPB DAILY [facility] Last Admin: 07/04/19 10:53 Dose: 100 mls/hr Documented by: Lacosamide (Vimpat Injection -) 200 mg IVPB BID [facility] Last Admin: 07/04/19 10:13 Dose: 200 mg Documented by: Levetiracetam (Keppra Injection -) 1,000 mg IVPB BID [facility] Last Admin: 07/04/19 10:13 Dose: 1,000 mg Documented by: Methylprednisolone Sodium Succinate (Solu-Medrol -) 20 mg IVPUSH BID [facility] Last Admin: 07/04/19 10:13 Dose: 20 mg Documented by: Pantoprazole Sodium (Protonix Iv) 40 mg IVPUSH DAILY [facility] Last Admin: 07/04/19 10:13 Dose: 40 mg Documented by: Phenobarbital (Phenobarbital Liquid -) 60 mg GT BID [facility] Last Admin: 07/04/19 10:13 Dose: 60 mg Documented by: Topiramate (Topamax -) 200 mg PO TID [facility] Last Admin: 07/04/19 05:32 Dose: 200 mg Documented by: Zinc Sulfate (Orazinc -) 220 mg PO BID [facility] Last Admin: 07/04/19 10:12 Dose: 220 mg Documented by: PHYSICAL EXAM: General: intubated, sedated, paralyzed HEENT: R periorbital hematoma stable, PERRL sluggish PULM: coarse BS maeve , no wheezes CV: regular Abd: soft, benign, hypoactive BS Ext: warm, trace edema A/ 38y M hx of developmental delay, seizures, now with acute respiratory failure likely secondary to COVID-19+/- strep PNA P/ -LPV (PBW 68; 5sn=072); increase RR rate to 35 -cont deep sedation/paralysis / prone as needed -cont steroids, will cont to taper -ID following--> abx , Erta, vanco -s/p convalescent serum 06/25 -cont home AEDs -cont 80 BID lovenox for AC -cont PPI for GI ppx -start Nutrition as able Karley ACNP [id number] 35min CCT
--- NOTE | 2019-07-04 13:25 | PN ---
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 (short form) - Note 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: remains intubated and sedated Vital Signs Period Temp Pulse Resp BP Sys/Ortiz Pulse Ox Last 24 Hr 9.5 F-99.7 F 52-90 30-42 96-151/57-88 96-100 cor-rrr llungs decreased bs at bases abd soft,nt ext trace edema CBC, BMP 07/04/19 05:00 07/04/19 05:00 Microbiology 07/01/19 18:15 Blood - Peripheral Venous Blood Culture - Preliminary NO GROWTH OBTAINED AFTER 48 HOURS, INCUBATION TO CONTINUE FOR 3 DAYS. 06/29/19 12:30 Blood - Peripheral Venous Blood Culture - Final Staphylococcus Epidermidis 06/30/19 17:15 Sputum - Endotrachea Suction/Ventilator Gram Stain - Final 06/30/19 17:15 Sputum - Endotrachea Suction/Ventilator Sputum Culture - Final Escherichia Coli Esbl [employer] 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 06/28/19 09:00 Blood - Peripheral Venous Blood Culture - Final Staphylococcus Epidermidis 06/28/19 12:50 Sputum - Endotrachea Suction/Ventilator Gram Stain - Final 06/28/19 12:50 Sputum - Endotrachea Suction/Ventilator Sputum Culture - Final 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 Staphylococcus Aureus 06/25/19 13:40 Blood - Peripheral Venous Blood Culture - Final NO GROWTH AFTER 5 DAYS INCUBATION 06/25/19 13:20 Blood - Peripheral Venous Blood Culture - Final NO GROWTH AFTER 5 DAYS INCUBATION 06/28/19 12:51 Urine - Urine Caceres Urine Culture - Final NO GROWTH OBTAINED 06/22/19 13:00 Blood - Peripheral Venous Blood Culture - Final Staphylococcus Warneri 06/22/19 13:00 Blood - Peripheral Venous Blood Culture - Final Staphylococcus Epidermidis 06/24/19 00:01 Urine - Urine Caceres Urine Culture - Final NO GROWTH OBTAINED 06/24/19 00:01 Urine For Antigen Detection Legionella Antigen - Final 06/24/19 00:01 Urine For Antigen Detection Streptococcus pneumoniae Antigen (M - Final vanco trough pending imp/reccd bacteremia- on vanco, check trough in am -will repeat, dose increased but level is lower, repeat blood culture 06/30 is negative line changed 06/29 hypoxemic resp failure bilateral infiltrates covid 19 positive-s/p convalescent plasma, s/p tocilizumab- will check quantiferon ertapenem day #2for ecoli esbl in sputum continue seizure meds s/p positive pneumococcal antigen improved crp ocygenatiion improved
[2019-07-04] MEDS: PROPOFOL 1,000,000 MCG/100 ML VIAL IVPB SCH ×2 (15:16→22:00)
[2019-07-04] MEDS: CHLORHEXIDINE GLUCONATE 4% CLEANSER FOR DECOLONIZATION TP SCH (21:16)
[2019-07-05] MEDS ORDERED: MORPHINE SULFATE/0.9% NACL/PF 100 MG/100 ML BAG ONE (02:40)
[2019-07-05] MEDS: MORPHINE SULFATE/0.9% NACL/PF 100 MG/100 ML BAG IVPB SCH (02:52)
[2019-07-05] MEDS: VECURONIUM BROMIDE 100 MG/100 ML BAG IVPB SCH ×2 (02:54→14:40)
[2019-07-05] MEDS: TOPIRAMATE 200 MG TABLET PO SCH ×3 (05:29→21:06)
[2019-07-05 06:51] LABS: ARTERIAL BLD GAS O2 SATURATION 94.9 % (95-98); ARTERIAL BLOOD GAS BASE EXCESS 3.2 mmol/L (-2-2); ARTERIAL BLOOD GAS PCO2 66.7 mmHg (35-45); ARTERIAL BLOOD GAS PO2 86.5 mmHg (80-100); ARTERIAL BLOOD GAS pH 7.29 (7.35-7.45)
[2019-07-05 07:01] LABS: HEMATOCRIT 35.2 % (35.4-49); HEMOGLOBIN 11.4 GM/dL (11.7-16.9); MCH 29.3 pg (25.7-33.7); MCHC 32.3 g/dl (32.0-35.9); MEAN CELL VOLUME 90.9 fl (80-96); MEAN PLT VOLUME 8.3 fl (7.5-11.1); PLATELET COUNT 330 K/MM3 (134-434); RBC 3.87 M/mm3 (4.00-5.60); RDW 15.5 % (11.9-15.9); WHITE BLOOD COUNT 10.2 K/mm3 (4.0-10.0)
[2019-07-05 07:14] LABS: ALBUMIN 1.7 g/dl (3.4-5.0); BILIRUBIN,TOTAL 0.2 mg/dL (0.2-1); BLOOD UREA NITROGEN 13.8 mg/dL (7-18); CALCIUM 7.4 mg/dL (8.5-10.1); CREATININE 0.3 mg/dL (0.55-1.3); MAGNESIUM 2.2 mg/dL (1.8-2.4); PHOSPHOROUS 3.4 mg/dL (2.5-4.9); POTASSIUM 4.2 mmol/L (3.5-5.1); TOT PROT 4.7 g/dl (6.4-8.2)
[2019-07-05] MEDS: ENOXAPARIN NA (PORCINE) 80 MG/0.8 ML DISP.SYRIN SQ SCH ×2 (08:56→21:05)
[2019-07-05] MEDS: CHOLECALCIFEROL (VIT D3) 400 UNIT (10 MCG) TABLET PO SCH (09:42)
[2019-07-05] MEDS: levETIRAcetam 500 MG/5 ML INJECTION VIAL IVPB SCH ×2 (09:42→21:05)
[2019-07-05] MEDS: PANTOPRAZOLE SODIUM 40 MG VIAL IVPUSH SCH (09:42)
[2019-07-05] MEDS: AMINO ACIDS/PROTEIN HYDROLYS 30 ML LIQUID.PKT PO SCH (09:42)
[2019-07-05] MEDS: ZINC SULFATE 220 MG CAPSULE (FP) PO SCH ×2 (09:42→21:05)
[2019-07-05] MEDS: ERTAPENEM SODIUM 1 GM in SODIUM CHLORIDE 50 ML IVPB SCH (09:42)
[2019-07-05] MEDS: PHENobarbital 20 MG/5 ML UNIT-DOSE CUP GT SCH ×2 (09:42→21:05)
[2019-07-05] MEDS: methylPREDNISolone NA SUCC 40 MG/1 ML VIAL IVPUSH SCH ×2 (09:42→21:06)
[2019-07-05] MEDS: Lacosamide 200 MG/20 ML VIAL IVPB SCH ×2 (09:43→22:00)
[2019-07-05] MEDS: VANCOMYCIN HCL 1,250 MG in DEXTROSE 5%-WATER - 250 ML IVPB SCH ×2 (14:01→22:00)
[2019-07-05] MEDS: PROPOFOL 1,000,000 MCG/100 ML VIAL IVPB SCH (14:02)
--- NOTE | 2019-07-05 16:52 | PN ---
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 (short form) - Note 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: PULM/CCM Seen and examined in ICU2. Nicely NET O > I O/N. Pplat stable @ 37 - 36. VENT SETTINGS: 35/340/70-->65%/12 Pplat 37 --> 36 P/F 125 --> 133 ABG Results ABG pH 7.29 (7.35-7.45) L 07/05/19 05:30 ABG pCO2 at Pt Temp 66.7 mmHg (35-45) H 07/05/19 05:30 ABG pO2 at Pt Temp 86.5 mmHg (80-100) 07/05/19 05:30 ABG HCO3 31.4 mmol/L (22-27) H 07/05/19 05:30 ABG O2 Sat (Measured) 94.9 % (95-98) L 07/05/19 05:30 ABG O2 Content 18.4 % vol 07/05/19 05:30 ABG Base Excess 3.2 mmol/L (-2-2) H 07/05/19 05:30 Active Medications Acetaminophen (Tylenol -) 650 mg PO Q4H PRN PRN Reason: FEVER Last Admin: 06/28/19 22:28 Dose: 650 mg Documented by: Amino Acids (Prosource No Carb Liquid Pkt) 30 ml PO DAILY [facility] Last Admin: 07/05/19 09:42 Dose: 30 ml Documented by: Chlorhexidine Gluconate (Hibiclens For Decolonization -) 1 applic TP HS [facility] Last Admin: 07/04/19 21:16 Dose: 1 applic Documented by: Cholecalciferol (Vitamin D3 -) 800 unit PO DAILY [facility] Last Admin: 07/05/19 09:42 Dose: 800 unit Documented by: Enoxaparin Sodium (Lovenox -) 80 mg SQ Q12H [facility] Last Admin: 07/05/19 08:56 Dose: 80 mg Documented by: Propofol (Diprivan -) 1,000,000 mcg in 100 mls @ 2.313 mls/hr IVPB TITR [facility]; Protocol Last Admin: 07/05/19 14:02 Dose: 40 mcg/kg/min, 18.507 mls/hr Documented by: Morphine Sulfate (Morphine 100mg/100ml-0.9% Nacl) 100 mg in 100 mls @ 1 mls/hr IVPB TITR [facility]; Protocol Last Admin: 07/05/19 02:52 Dose: 8 mg/hr, 8 mls/hr Documented by: Vecuronium [place] (Vecuronium [place]) 100 mg in 100 mls @ 4.599 mls/hr IVPB TITR [facility]; Protocol Last Admin: 07/05/19 14:40 Dose: 1.3 mcg/kg/min, 5.979 mls/hr Documented by: Vancomycin HCl 1,250 mg/ (Dextrose) 250 mls @ 166.667 mls/hr IVPB Q12H [facility]; Protocol Last Admin: 07/05/19 14:01 Dose: 166.667 mls/hr Documented by: Sodium Chloride (Normal Saline -) 1,000 mls @ 25 mls/hr IV ASDIR [facility] Last Admin: 07/03/19 19:59 Dose: 25 mls/hr Documented by: Ertapenem 1 gm/ Sodium (Chloride) 50 mls @ 100 mls/hr IVPB DAILY [facility] Last Admin: 07/05/19 09:42 Dose: 100 mls/hr Documented by: Lacosamide (Vimpat Injection -) 200 mg IVPB BID [facility] Last Admin: 07/05/19 09:43 Dose: 200 mg Documented by: Levetiracetam (Keppra Injection -) 1,000 mg IVPB BID [facility] Last Admin: 07/05/19 09:42 Dose: 1,000 mg Documented by: Methylprednisolone Sodium Succinate (Solu-Medrol -) 20 mg IVPUSH BID [facility] Last Admin: 07/05/19 09:42 Dose: 20 mg Documented by: Pantoprazole Sodium (Protonix Iv) 40 mg IVPUSH DAILY [facility] Last Admin: 07/05/19 09:42 Dose: 40 mg Documented by: Phenobarbital (Phenobarbital Liquid -) 60 mg GT BID [facility] Last Admin: 07/05/19 09:42 Dose: 60 mg Documented by: Topiramate (Topamax -) 200 mg PO TID [facility] Last Admin: 07/05/19 14:02 Dose: 200 mg Documented by: Zinc Sulfate (Orazinc -) 220 mg PO BID [facility] Last Admin: 07/05/19 09:42 Dose: 220 mg Documented by: Vital Signs Period Temp Pulse Resp BP Sys/Ortiz Pulse Ox Last 24 Hr 97.0 F-100.3 F 60-113 30-30 94-133/60-91 94-98 Intake & Output 07/02/19 07/03/19 07/04/19 07/05/19 23:59 23:59 23:59 23:59 Intake Total 4289.5 2697.8 2734.4 2129.8 Output Total 4500 3000 2100 3100 Balance -210.5 -302.2 634.4 -970.2 PHYSICAL EXAM: General: intubated, sedated, paralyzed HEENT: R periorbital hematoma stable, PERRL sluggish PULM: coarse BS maeve , no wheezes CV: regular Abd: soft, benign, hypoactive BS Ext: warm, trace edema CBC, BMP 07/05/19 06:00 07/05/19 06:00 INR, PTT INR 0.97 (0.83-1.09) 06/26/19 06:49 ABG Results ABG pH 7.29 (7.35-7.45) L 07/05/19 05:30 ABG pCO2 at Pt Temp 66.7 mmHg (35-45) H 07/05/19 05:30 ABG pO2 at Pt Temp 86.5 mmHg (80-100) 07/05/19 05:30 ABG HCO3 31.4 mmol/L (22-27) H 07/05/19 05:30 ABG O2 Sat (Measured) 94.9 % (95-98) L 07/05/19 05:30 ABG O2 Content 18.4 % vol 07/05/19 05:30 ABG Base Excess 3.2 mmol/L (-2-2) H 07/05/19 05:30 Microbiology 07/01/19 18:15 Blood - Peripheral Venous Blood Culture - Preliminary NO GROWTH OBTAINED AFTER 72 HOURS, INCUBATION TO CONTINUE FOR 2 DAYS. 06/29/19 12:30 Blood - Peripheral Venous Blood Culture - Final Staphylococcus Epidermidis 06/30/19 17:15 Sputum - Endotrachea Suction/Ventilator Gram Stain - Final 06/30/19 17:15 Sputum - Endotrachea Suction/Ventilator Sputum Culture - Final Escherichia Coli Esbl Glass Edger 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 06/28/19 09:00 Blood - Peripheral Venous Blood Culture - Final Staphylococcus Epidermidis 06/28/19 12:50 Sputum - Endotrachea Suction/Ventilator Gram Stain - Final 06/28/19 12:50 Sputum - Endotrachea Suction/Ventilator Sputum Culture - Final 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 Staphylococcus Aureus 06/25/19 13:40 Blood - Peripheral Venous Blood Culture - Final NO GROWTH AFTER 5 DAYS INCUBATION 06/25/19 13:20 Blood - Peripheral Venous Blood Culture - Final NO GROWTH AFTER 5 DAYS INCUBATION 06/28/19 12:51 Urine - Urine Caceres Urine Culture - Final NO GROWTH OBTAINED 06/22/19 13:00 Blood - Peripheral Venous Blood Culture - Final Staphylococcus Warneri 06/22/19 13:00 Blood - Peripheral Venous Blood Culture - Final Staphylococcus Epidermidis 06/24/19 00:01 Urine - Urine Caceres Urine Culture - Final NO GROWTH OBTAINED 06/24/19 00:01 Urine For Antigen Detection Legionella Antigen - Final 06/24/19 00:01 Urine For Antigen Detection Streptococcus pneumoniae Antigen (M - Final RECENT STUDIES TO NOTE: CXR 07/04: The endotracheal tube tip is approximately 1 cm above the tracheal bifurcation and should be repositioned. In comparison to an exam of 06/05/2019 note is made of increased right upper and right lower lung field infiltrates. No obvious interval change is noted in regards to left upper and left lower lung field infiltrates. Possible small bilateral pleural effusions. The heart, john and mediastinum appear unremarkable as visualized. A right subclavian venous catheter is again seen in place with the catheter tip in the expected location of the right atrium. A feeding tube is seen extending below the level of the diaphragm. Verbal report provided to ICU personnel in regards to endotracheal tube position. A/ 38y M hx of developmental delay, seizures, now with acute respiratory failure likely secondary to COVID-19+/- strep PNA P/ -LPV (PBW 68; 5tv=914); increase RR rate to 35 -cont deep sedation/paralysis / prone as needed -cont steroids, will cont to taper -ID following--> abx , Erta, vanco -s/p convalescent serum 06/25 -cont home AEDs -cont 80 BID lovenox for AC -cont PPI for GI ppx -cont TFs (Beryl 1.2 @ 42cc/Hr) [facility] ICU PULM/CCM [id number] CCT 32" Critical Care Total Critical Care Time (in minutes): 32 Critical Care Statement: The care of this patient involved high complexity decision making to prevent further life threatening deterioration of the patient's condition and/or to evaluate & treat vital organ system(s) failure or risk of failure.
[2019-07-05] MEDS: SODIUM CHLORIDE 1,000 ML IV SCH (18:21)
[2019-07-05] MEDS: CHLORHEXIDINE GLUCONATE 4% CLEANSER FOR DECOLONIZATION TP SCH (21:05)
[2019-07-06] MEDS: SODIUM CHLORIDE 1,000 ML IV SCH ×2 (01:23→16:42)
[2019-07-06] MEDS: PROPOFOL 1,000,000 MCG/100 ML VIAL IVPB SCH ×3 (03:30→21:55)
[2019-07-06] MEDS: TOPIRAMATE 200 MG TABLET PO SCH ×3 (05:10→21:55)
[2019-07-06 06:52] LABS: ARTERIAL BLD GAS O2 SATURATION 96.5 % (95-98); ARTERIAL BLOOD GAS BASE EXCESS 4.4 mmol/L (-2-2); ARTERIAL BLOOD GAS PCO2 56.6 mmHg (35-45); ARTERIAL BLOOD GAS pH 7.36 (7.35-7.45)
[2019-07-06 07:02] LABS: ALLENS TEST POSITIVE
[2019-07-06 08:23] LABS: BLOOD UREA NITROGEN 15.8 mg/dL (7-18); CALCIUM 7.5 mg/dL (8.5-10.1); CREATININE 0.2 mg/dL (0.55-1.3); MAGNESIUM 2.1 mg/dL (1.8-2.4); PHOSPHOROUS 3.2 mg/dL (2.5-4.9)
[2019-07-06] MEDS: ENOXAPARIN NA (PORCINE) 80 MG/0.8 ML DISP.SYRIN SQ SCH ×2 (08:40→20:13)
[2019-07-06 08:54] LABS: HEMATOCRIT 32.8 % (35.4-49); HEMOGLOBIN 10.7 GM/dL (11.7-16.9); MCH 29.4 pg (25.7-33.7); MCHC 32.5 g/dl (32.0-35.9); MEAN CELL VOLUME 90.5 fl (80-96); MEAN PLT VOLUME 8.8 fl (7.5-11.1); PLATELET COUNT 279 K/MM3 (134-434); RBC 3.63 M/mm3 (4.00-5.60); RDW 15.2 % (11.9-15.9); WHITE BLOOD COUNT 8.1 K/mm3 (4.0-10.0)
[2019-07-06] MEDS: AMINO ACIDS/PROTEIN HYDROLYS 30 ML LIQUID.PKT PO SCH ×2 (09:39→17:41)
[2019-07-06] MEDS: PHENobarbital 20 MG/5 ML UNIT-DOSE CUP GT SCH ×2 (09:39→21:55)
[2019-07-06] MEDS: ZINC SULFATE 220 MG CAPSULE (FP) PO SCH ×2 (09:39→21:55)
[2019-07-06] MEDS: methylPREDNISolone NA SUCC 40 MG/1 ML VIAL IVPUSH SCH ×2 (09:40→21:55)
[2019-07-06] MEDS: CHOLECALCIFEROL (VIT D3) 400 UNIT (10 MCG) TABLET PO SCH (09:40)
[2019-07-06] MEDS: PANTOPRAZOLE SODIUM 40 MG VIAL IVPUSH SCH (09:40)
[2019-07-06] MEDS: ERTAPENEM SODIUM 1 GM in SODIUM CHLORIDE 50 ML IVPB SCH (10:00)
[2019-07-06] MEDS: Lacosamide 200 MG/20 ML VIAL IVPB SCH ×2 (10:00→21:55)
[2019-07-06] MEDS: levETIRAcetam 500 MG/5 ML INJECTION VIAL IVPB SCH ×2 (10:00→21:55)
[2019-07-06] MEDS: VANCOMYCIN HCL 1,250 MG in DEXTROSE 5%-WATER - 250 ML IVPB SCH (10:30)
[2019-07-06] MEDS: VECURONIUM BROMIDE 100 MG/100 ML BAG IVPB SCH (11:44)
--- NOTE | 2019-07-06 16:39 | PN ---
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 (short form) - Note 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: remains intubated and sedated Vital Signs Period Temp Pulse Resp BP Sys/Ortiz Pulse Ox Last 24 Hr 97.0 F-98.8 F 51-76 30-39 97-113/47-56 95-99 cor-rrr lungs decreased bs at bases abd soft,nt ext +edema CBC, BMP 07/06/19 06:00 07/06/19 06:00 Microbiology 07/01/19 18:15 Blood - Peripheral Venous Blood Culture - Preliminary NO GROWTH OBTAINED AFTER 96 HOURS, INCUBATION TO CONTINUE FOR 1 DAYS. 06/29/19 12:30 Blood - Peripheral Venous Blood Culture - Final Staphylococcus Epidermidis 06/30/19 17:15 Sputum - Endotrachea Suction/Ventilator Gram Stain - Final 06/30/19 17:15 Sputum - Endotrachea Suction/Ventilator Sputum Culture - Final Escherichia Coli Esbl Tree Driller 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 06/28/19 09:00 Blood - Peripheral Venous Blood Culture - Final Staphylococcus Epidermidis 06/28/19 12:50 Sputum - Endotrachea Suction/Ventilator Gram Stain - Final 06/28/19 12:50 Sputum - Endotrachea Suction/Ventilator Sputum Culture - Final 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 Staphylococcus Aureus 06/25/19 13:40 Blood - Peripheral Venous Blood Culture - Final NO GROWTH AFTER 5 DAYS INCUBATION 06/25/19 13:20 Blood - Peripheral Venous Blood Culture - Final NO GROWTH AFTER 5 DAYS INCUBATION 06/28/19 12:51 Urine - Urine Caceres Urine Culture - Final NO GROWTH OBTAINED 06/22/19 13:00 Blood - Peripheral Venous Blood Culture - Final Staphylococcus Warneri 06/22/19 13:00 Blood - Peripheral Venous Blood Culture - Final Staphylococcus Epidermidis 06/24/19 00:01 Urine - Urine Caceres Urine Culture - Final NO GROWTH OBTAINED 06/24/19 00:01 Urine For Antigen Detection Legionella Antigen - Final 06/24/19 00:01 Urine For Antigen Detection Streptococcus pneumoniae Antigen (M - Final vanco trough 7.7 imp/reccd bacteremia- on vanco day #6, inccrease to 1500 bid- plan 14 days line changed 06/29 hypoxemic resp failure bilateral infiltrates covid 19 positive-s/p convalescent plasma, s/p tocilizumab- will check quantiferon ertapenem day #4 for ecoli esbl in sputum continue seizure meds s/p positive pneumococcal antigen improved crp ocygenatiion improved
[2019-07-06] MEDS: CHLORHEXIDINE GLUCONATE 4% CLEANSER FOR DECOLONIZATION TP SCH (21:54)
[2019-07-06] MEDS: VANCOMYCIN HCL 1,500 MG in DEXTROSE 5%-WATER - 500 ML IVPB SCH (21:55)
[2019-07-07] MEDS: MORPHINE SULFATE/0.9% NACL/PF 100 MG/100 ML BAG IVPB SCH ×2 (01:20→03:45)
[2019-07-07] MEDS: PROPOFOL 1,000,000 MCG/100 ML VIAL IVPB SCH ×2 (01:21→14:34)
[2019-07-07] MEDS: VECURONIUM BROMIDE 100 MG/100 ML BAG IVPB SCH (01:21)
[2019-07-07] MEDS: TOPIRAMATE 200 MG TABLET PO SCH ×3 (05:45→21:13)
[2019-07-07] MEDS ORDERED: MIDAZOLAM 100 MG/100 ML MG IVPB ONE (07:40)
[2019-07-07] MEDS: ENOXAPARIN NA (PORCINE) 80 MG/0.8 ML DISP.SYRIN SQ SCH ×2 (08:03→21:12)
[2019-07-07] MEDS: AMINO ACIDS/PROTEIN HYDROLYS 30 ML LIQUID.PKT PO SCH ×2 (08:03→21:13)
--- NOTE | 2019-07-07 08:19 | PN ---
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 (short form) - Note 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: PULM/CCM 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: Seen and examined in ICU2 24 HRS EVENTS: -down to 65% fio2 -afebrile -peaks/plats high, increase secretions, CXR pending Vital Signs Temp 99.5 F 07/07/19 08:00 Pulse 68 07/07/19 08:00 Resp 33 H 07/07/19 08:00 BP 108/46 L 07/07/19 08:00 Pulse Ox 98 07/07/19 08:00 Intake & Output 07/06/19 07/06/19 07/07/19 11:59 23:59 11:59 Intake Total 883.2 1248.8 1657.1 Output Total 1300 1850 900 Balance -416.8 -601.2 757.1 Intake: IV 259.2 484.8 722.1 DIPRIVAN - 1,000,000 mcg 132 184 236 In 100 ml @ 5 MCG/KG/MIN 2.313 mls/hr IVPB TITR [facility] Rx#:[id number] MORPHINE 100MG/100ML-0.9% 72 64 88.5 NACL 100 mg In 100 ml @ 1 MG/HR 1 mls/hr IVPB TITR [facility] Rx#:[id number] Normal Saline - 1,000 ml 200 325 @ 25 mls/hr IV ASDIR [facility] Rx#:[id number] VECURONIUM BROMIDE 100 mg 55.2 36.8 72.6 In 100 ml @ 1 MCG/KG/MIN 4.599 mls/hr IVPB TITR [facility] Rx#:[id number] IVPB 450 250 Tube Feeding 504 234 550 Tube Irrigant 120 80 135 Output: Urine 1300 1850 900 Caceres 1300 1850 900 Other: Voiding Method Indwelling Catheter Indwelling Catheter Bowel Movement Yes Yes # Bowel Movements 1 VENT SETTINGS: AC/30/340/65/12 Peak 43 pPlat 38 ABG Results ABG pH 7.36 (7.35-7.45) 07/06/19 05:55 ABG pCO2 at Pt Temp 56.6 mmHg (35-45) H 07/06/19 05:55 ABG pO2 at Pt Temp 94.0 mmHg (80-100) 07/06/19 05:55 ABG HCO3 30.9 mmol/L (22-27) H 07/06/19 05:55 ABG O2 Sat (Measured) 96.5 % (95-98) 07/06/19 05:55 ABG O2 Content 18.4 % vol 07/06/19 05:55 ABG Base Excess 4.4 mmol/L (-2-2) H 07/06/19 05:55 CBC, BMP 07/06/19 06:00 07/06/19 06:00 Active Medications Acetaminophen (Tylenol -) 650 mg PO Q4H PRN PRN Reason: FEVER Last Admin: 06/28/19 22:28 Dose: 650 mg Documented by: Amino Acids (Prosource No Carb Liquid Pkt) 30 ml PO BID@0800,1730 [facility] Last Admin: 07/07/19 08:03 Dose: 30 ml Documented by: Chlorhexidine Gluconate (Hibiclens For Decolonization -) 1 applic TP HS [facility] Last Admin: 07/06/19 21:54 Dose: 1 applic Documented by: Cholecalciferol (Vitamin D3 -) 800 unit PO DAILY [facility] Last Admin: 07/06/19 09:40 Dose: 800 unit Documented by: Enoxaparin Sodium (Lovenox -) 80 mg SQ Q12H [facility] Last Admin: 07/07/19 08:03 Dose: 80 mg Documented by: Propofol (Diprivan -) 1,000,000 mcg in 100 mls @ 2.313 mls/hr IVPB TITR [facility]; Protocol Last Admin: 07/07/19 01:21 Dose: 35 mcg/kg/min, 16.193 mls/hr Documented by: Morphine Sulfate (Morphine 100mg/100ml-0.9% Nacl) 100 mg in 100 mls @ 1 mls/hr IVPB TITR [facility]; Protocol Last Admin: 07/07/19 03:45 Dose: 8 mg/hr, 8 mls/hr Documented by: Vecuronium [place] (Vecuronium [place]) 100 mg in 100 mls @ 4.599 mls/hr IVPB TITR [facility]; Protocol Last Admin: 07/07/19 01:21 Dose: 1.3 mcg/kg/min, 5.979 mls/hr Documented by: Sodium Chloride (Normal Saline -) 1,000 mls @ 25 mls/hr IV ASDIR [facility] Last Admin: 07/06/19 16:42 Dose: 25 mls/hr Documented by: Ertapenem 1 gm/ Sodium (Chloride) 50 mls @ 100 mls/hr IVPB DAILY [facility] Last Admin: 07/06/19 10:00 Dose: 100 mls/hr Documented by: Vancomycin HCl 1,500 mg/ (Dextrose) 500 mls @ 250 mls/hr IVPB Q12H [facility]; Protocol Last Admin: 07/06/19 21:55 Dose: 250 mls/hr Documented by: Lacosamide (Vimpat Injection -) 200 mg IVPB BID [facility] Last Admin: 07/06/19 21:55 Dose: 200 mg Documented by: Levetiracetam (Keppra Injection -) 1,000 mg IVPB BID [facility] Last Admin: 07/06/19 21:55 Dose: 1,000 mg Documented by: Methylprednisolone Sodium Succinate (Solu-Medrol -) 20 mg IVPUSH Q24H [facility] Pantoprazole Sodium (Protonix Iv) 40 mg IVPUSH DAILY [facility] Last Admin: 07/06/19 09:40 Dose: 40 mg Documented by: Phenobarbital (Phenobarbital Liquid -) 60 mg GT BID [facility] Last Admin: 07/06/19 21:55 Dose: 60 mg Documented by: Topiramate (Topamax -) 200 mg PO TID [facility] Last Admin: 07/07/19 05:45 Dose: 200 mg Documented by: Zinc Sulfate (Orazinc -) 220 mg PO BID [facility] Last Admin: 07/06/19 21:55 Dose: 220 mg Documented by: PHYSICAL EXAM: General: intubated, sedated, paralyzed HEENT: R periorbital hematoma stable, PERRL sluggish PULM: coarse BS maeve , no wheezes CV: regular Abd: soft, benign, hypoactive BS Ext: warm, trace edema A/ 38y M hx of developmental delay, seizures, now with acute respiratory failure likely secondary to COVID-19+/- strep PNA P/ -LPV (PBW 68; 4dy=256); increase RR rate to 30 -cont deep sedation/paralysis as needed, currently stable on 65% -cont steroids, will cont to taper to off -ID following--> abx , Erta, vanco -s/p convalescent serum 06/25 -cont home AEDs -cont 80 BID lovenox for AC -cont PPI for GI ppx -start Nutrition as able Shedd ACNP 5780 35min CCT
[2019-07-07] MEDS: methylPREDNISolone NA SUCC 40 MG/1 ML VIAL IVPUSH SCH (08:40)
[2019-07-07] MEDS: CHOLECALCIFEROL (VIT D3) 400 UNIT (10 MCG) TABLET PO SCH (09:52)
[2019-07-07] MEDS: ZINC SULFATE 220 MG CAPSULE (FP) PO SCH ×2 (09:52→21:13)
[2019-07-07] MEDS: PHENobarbital 20 MG/5 ML UNIT-DOSE CUP GT SCH ×2 (09:52→21:13)
[2019-07-07] MEDS: PANTOPRAZOLE SODIUM 40 MG VIAL IVPUSH SCH (09:52)
[2019-07-07] MEDS: ERTAPENEM SODIUM 1 GM in SODIUM CHLORIDE 50 ML IVPB SCH (10:16)
[2019-07-07] MEDS: levETIRAcetam 500 MG/5 ML INJECTION VIAL IVPB SCH ×2 (10:17→21:13)
[2019-07-07] MEDS: Lacosamide 200 MG/20 ML VIAL IVPB SCH ×2 (10:17→21:13)
[2019-07-07] MEDS: VANCOMYCIN HCL 1,500 MG in DEXTROSE 5%-WATER - 500 ML IVPB SCH ×2 (10:17→21:13)
[2019-07-07] MEDS: SODIUM CHLORIDE 1,000 ML IV SCH (14:33)
--- NOTE | 2019-07-07 16:10 | PN ---
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 (short form) - Note 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: remains intubated and sedated Vital Signs Period Temp Pulse Resp BP Sys/Ortiz Pulse Ox Last 24 Hr 97.7 F-99.5 F 54-86 30-39 99-118/46-64 96-99 cor-rrr lungs decreased bs at bases abd soft,nt ext trace edema +fole +right sc line CBC, BMP 07/06/19 06:00 07/06/19 06:00 Microbiology 07/01/19 18:15 Blood - Peripheral Venous Blood Culture - Final NO GROWTH AFTER 5 DAYS INCUBATION 06/29/19 12:30 Blood - Peripheral Venous Blood Culture - Final Staphylococcus Epidermidis 06/30/19 17:15 Sputum - Endotrachea Suction/Ventilator Gram Stain - Final 06/30/19 17:15 Sputum - Endotrachea Suction/Ventilator Sputum Culture - Final Escherichia Coli Esbl [employer] 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 06/28/19 09:00 Blood - Peripheral Venous Blood Culture - Final Staphylococcus Epidermidis 06/28/19 12:50 Sputum - Endotrachea Suction/Ventilator Gram Stain - Final 06/28/19 12:50 Sputum - Endotrachea Suction/Ventilator Sputum Culture - Final 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 Staphylococcus Aureus 06/25/19 13:40 Blood - Peripheral Venous Blood Culture - Final NO GROWTH AFTER 5 DAYS INCUBATION 06/25/19 13:20 Blood - Peripheral Venous Blood Culture - Final NO GROWTH AFTER 5 DAYS INCUBATION 06/28/19 12:51 Urine - Urine Caceres Urine Culture - Final NO GROWTH OBTAINED 06/22/19 13:00 Blood - Peripheral Venous Blood Culture - Final Staphylococcus Warneri 06/22/19 13:00 Blood - Peripheral Venous Blood Culture - Final Staphylococcus Epidermidis 06/24/19 00:01 Urine - Urine Caceres Urine Culture - Final NO GROWTH OBTAINED 06/24/19 00:01 Urine For Antigen Detection Legionella Antigen - Final 06/24/19 00:01 Urine For Antigen Detection Streptococcus pneumoniae Antigen (M - Final vanco trough 7.7 imp/reccd bacteremia- on vanco day #7, inccrease to 1500 bid- plan 14 days-check level in am line changed 06/29 hypoxemic resp failure bilateral infiltrates covid 19 positive-s/p convalescent plasma, s/p tocilizumab- quantiferon indeterminate- will need to repeat ertapenem day #5 for ecoli esbl in sputum continue seizure meds s/p positive pneumococcal antigen improved crp ocygenatiion improved
[2019-07-07 16:38] LABS: ARTERIAL BLD GAS O2 SATURATION 98.1 % (95-98); ARTERIAL BLOOD GAS BASE EXCESS 5.2 mmol/L (-2-2); ARTERIAL BLOOD GAS PCO2 53.8 mmHg (35-45); ARTERIAL BLOOD GAS PO2 122 mmHg (80-100); ARTERIAL BLOOD GAS pH 7.38 (7.35-7.45)
[2019-07-07] MEDS: CHLORHEXIDINE GLUCONATE 4% CLEANSER FOR DECOLONIZATION TP SCH (21:12)
[2019-07-08] MEDS: MORPHINE SULFATE/0.9% NACL/PF 100 MG/100 ML BAG IVPB SCH ×3 (05:24→21:40)
[2019-07-08] MEDS: TOPIRAMATE 200 MG TABLET PO SCH ×3 (05:25→21:39)
[2019-07-08 05:51] LABS: HEMATOCRIT 34.8 % (35.4-49); HEMOGLOBIN 11.5 GM/dL (11.7-16.9); MCHC 33.1 g/dl (32.0-35.9); MEAN CELL VOLUME 90.6 fl (80-96); MEAN PLT VOLUME 8.6 fl (7.5-11.1); PLATELET COUNT 251 K/MM3 (134-434); RBC 3.85 M/mm3 (4.00-5.60); RDW 15.2 % (11.9-15.9); WHITE BLOOD COUNT 10.2 K/mm3 (4.0-10.0)
[2019-07-08 06:15] LABS: BLOOD UREA NITROGEN 12.7 mg/dL (7-18); CALCIUM 7.7 mg/dL (8.5-10.1); CREATININE 0.2 mg/dL (0.55-1.3); PHOSPHOROUS 3.7 mg/dL (2.5-4.9); POTASSIUM 3.5 mmol/L (3.5-5.1)
[2019-07-08] MEDS: methylPREDNISolone NA SUCC 40 MG/1 ML VIAL IVPUSH SCH (08:47)
[2019-07-08] MEDS: ENOXAPARIN NA (PORCINE) 80 MG/0.8 ML DISP.SYRIN SQ SCH ×2 (08:47→21:38)
[2019-07-08] MEDS: AMINO ACIDS/PROTEIN HYDROLYS 30 ML LIQUID.PKT PO SCH ×2 (08:47→18:26)
[2019-07-08] MEDS: ERTAPENEM SODIUM 1 GM in SODIUM CHLORIDE 50 ML IVPB SCH (09:43)
[2019-07-08] MEDS: PANTOPRAZOLE SODIUM 40 MG VIAL IVPUSH SCH (09:43)
[2019-07-08] MEDS: ZINC SULFATE 220 MG CAPSULE (FP) PO SCH ×2 (09:43→21:39)
[2019-07-08] MEDS: VANCOMYCIN HCL 1,500 MG in DEXTROSE 5%-WATER - 500 ML IVPB SCH ×2 (09:43→21:39)
[2019-07-08] MEDS: levETIRAcetam 500 MG/5 ML INJECTION VIAL IVPB SCH ×2 (09:43→21:39)
[2019-07-08] MEDS: PHENobarbital 20 MG/5 ML UNIT-DOSE CUP GT SCH ×2 (09:43→21:39)
[2019-07-08] MEDS: CHOLECALCIFEROL (VIT D3) 400 UNIT (10 MCG) TABLET PO SCH (09:44)
[2019-07-08] MEDS: Lacosamide 200 MG/20 ML VIAL IVPB SCH ×2 (09:44→21:39)
--- NOTE | 2019-07-08 10:32 | PN ---
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 (short form) - Note 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: PULM/CCM Seen and examined in ICU2 24 HRS EVENTS: Remains intubated, sedated on propofol and morphine Vent: AC 30/340/65/12 PIP 45 -afebrile Vital Signs Period Temp Pulse Resp BP Sys/Ortiz Pulse Ox Last 24 Hr 96.8 F-98.8 F 60-120 30-36 100-117/43-65 96-100 Intake & Output 07/05/19 07/06/19 07/07/19 07/08/19 23:59 23:59 23:59 23:59 Intake Total 2579.8 2132.0 1657.1 1547.3 Output Total 3100 3150 4500 1800 Balance -520.2 -1018.0 -2842.9 -252.7 CBC, BMP 07/08/19 05:37 07/08/19 05:37 Active Medications Acetaminophen (Tylenol -) 650 mg PO Q4H PRN PRN Reason: FEVER Last Admin: 06/28/19 22:28 Dose: 650 mg Documented by: Amino Acids (Prosource No Carb Liquid Pkt) 30 ml PO BID@0800,1730 [facility] Last Admin: 07/08/19 08:47 Dose: 30 ml Documented by: Chlorhexidine Gluconate (Hibiclens For Decolonization -) 1 applic TP HS [facility] Last Admin: 07/07/19 21:12 Dose: 1 applic Documented by: Cholecalciferol (Vitamin D3 -) 800 unit PO DAILY [facility] Last Admin: 07/08/19 09:44 Dose: 800 unit Documented by: Enoxaparin Sodium (Lovenox -) 80 mg SQ Q12H [facility] Last Admin: 07/08/19 08:47 Dose: 80 mg Documented by: Propofol (Diprivan -) 1,000,000 mcg in 100 mls @ 2.313 mls/hr IVPB TITR [facility]; Protocol Last Admin: 07/07/19 14:34 Dose: 35 mcg/kg/min, 16.193 mls/hr Documented by: Morphine Sulfate (Morphine 100mg/100ml-0.9% Nacl) 100 mg in 100 mls @ 1 mls/hr IVPB TITR [facility]; Protocol Last Admin: 07/08/19 05:24 Dose: 8 mg/hr, 8 mls/hr Documented by: Sodium Chloride (Normal Saline -) 1,000 mls @ 25 mls/hr IV ASDIR [facility] Last Admin: 07/07/19 14:33 Dose: 25 mls/hr Documented by: Ertapenem 1 gm/ Sodium (Chloride) 50 mls @ 100 mls/hr IVPB DAILY [facility] Last Admin: 07/08/19 09:43 Dose: 100 mls/hr Documented by: Vancomycin HCl 1,500 mg/ (Dextrose) 500 mls @ 250 mls/hr IVPB Q12H [facility]; Protocol Last Admin: 07/08/19 09:43 Dose: 250 mls/hr Documented by: Lacosamide (Vimpat Injection -) 200 mg IVPB BID [facility] Last Admin: 07/08/19 09:44 Dose: 200 mg Documented by: Levetiracetam (Keppra Injection -) 1,000 mg IVPB BID [facility] Last Admin: 07/08/19 09:43 Dose: 1,000 mg Documented by: Methylprednisolone Sodium Succinate (Solu-Medrol -) 20 mg IVPUSH Q24H [facility] Last Admin: 07/08/19 08:47 Dose: 20 mg Documented by: Pantoprazole Sodium (Protonix Iv) 40 mg IVPUSH DAILY [facility] Last Admin: 07/08/19 09:43 Dose: 40 mg Documented by: Phenobarbital (Phenobarbital Liquid -) 60 mg GT BID [facility] Last Admin: 07/08/19 09:43 Dose: 60 mg Documented by: Topiramate (Topamax -) 200 mg PO TID [facility] Last Admin: 07/08/19 05:25 Dose: 200 mg Documented by: Zinc Sulfate (Orazinc -) 220 mg PO BID [facility] Last Admin: 07/08/19 09:43 Dose: 220 mg Documented by: PHYSICAL EXAM: General: intubated, sedated, paralyzed HEENT: R periorbital hematoma stable, PERRL sluggish PULM: coarse BS maeve , no wheezes CV: regular Abd: soft, benign, hypoactive BS Ext: warm, trace edema A/ 38y M hx of developmental delay, seizures, now with acute respiratory failure likely secondary to COVID-19+/- strep PNA P/ -LPV (PBW 68; 7wd=160); increase RR rate to 30 -Pulmonary toileting -cont deep sedation/paralysis, currently stable on 65% -will cont to taper to off, last dose today (07/07) -ID following--> abx , Erta, vanco -Appreciate ID recs -s/p convalescent serum 06/25 -cont home AEDs -Continue Zinc, will add Vit C -D/c IVF due to hypernatremia, will add free water via NGT -cont 80 BID lovenox for AC, SCDs BLE -cont PPI for GI ppx -TF Juliana Blancas ACNP [id number]
[2019-07-08 12:38] LABS: ARTERIAL BLD GAS O2 SATURATION 98.2 % (95-98); ARTERIAL BLOOD GAS BASE EXCESS -0.2 mmol/L (-2-2); ARTERIAL BLOOD GAS PCO2 58.1 mmHg (35-45); ARTERIAL BLOOD GAS PO2 137 mmHg (80-100)
[2019-07-08 12:39] LABS: ALLENS TEST POSITIVE
[2019-07-08] MEDS: ASCORBIC ACID 500 MG TABLET (FP) PO SCH (14:00)
[2019-07-08] MEDS: PROPOFOL 1,000,000 MCG/100 ML VIAL IVPB SCH (14:00)
--- NOTE | 2019-07-08 15:28 | PN ---
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 (short form) - Note 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: remains intubated and sedated Vital Signs Period Temp Pulse Resp BP Sys/Ortiz Pulse Ox Last 24 Hr 96.8 F-98.8 F 63-120 30-36 100-117/43-92 99-100 cor-rrr lungs decreased bases abd- soft,nt ext no edema CBC, BMP 07/08/19 05:37 07/08/19 05:37 Microbiology 07/01/19 18:15 Blood - Peripheral Venous Blood Culture - Final NO GROWTH AFTER 5 DAYS INCUBATION 06/29/19 12:30 Blood - Peripheral Venous Blood Culture - Final Staphylococcus Epidermidis 06/30/19 17:15 Sputum - Endotrachea Suction/Ventilator Gram Stain - Final 06/30/19 17:15 Sputum - Endotrachea Suction/Ventilator Sputum Culture - Final Escherichia Coli Esbl [employer] 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 06/28/19 09:00 Blood - Peripheral Venous Blood Culture - Final Staphylococcus Epidermidis 06/28/19 12:50 Sputum - Endotrachea Suction/Ventilator Gram Stain - Final 06/28/19 12:50 Sputum - Endotrachea Suction/Ventilator Sputum Culture - Final 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 Staphylococcus Aureus 06/25/19 13:40 Blood - Peripheral Venous Blood Culture - Final NO GROWTH AFTER 5 DAYS INCUBATION 06/25/19 13:20 Blood - Peripheral Venous Blood Culture - Final NO GROWTH AFTER 5 DAYS INCUBATION 06/28/19 12:51 Urine - Urine Caceres Urine Culture - Final NO GROWTH OBTAINED 06/22/19 13:00 Blood - Peripheral Venous Blood Culture - Final Staphylococcus Warneri 06/22/19 13:00 Blood - Peripheral Venous Blood Culture - Final Staphylococcus Epidermidis 06/24/19 00:01 Urine - Urine Caceres Urine Culture - Final NO GROWTH OBTAINED 06/24/19 00:01 Urine For Antigen Detection Legionella Antigen - Final 06/24/19 00:01 Urine For Antigen Detection Streptococcus pneumoniae Antigen (M - Final vanco trough 7.7 imp/reccd bacteremia- on vanco day #10, plan 14 days-check level in am line changed 06/29 hypoxemic resp failure bilateral infiltrates covid 19 positive-s/p convalescent plasma, s/p tocilizumab- quantiferon indeterminate- will need to repeat ertapenem day #5 for ecoli esbl in sputum continue seizure meds s/p positive pneumococcal antigen improved crp ocygenatiion improved
--- NOTE | 2019-07-08 16:21 | PROC ---
Central Line Insertion Risks and Benefits Explained: No Consent on Chart: No Central Line: Other (left radial A-line) Anesthesia: 1% Lidocaine Sterile Technique: Yes Ultrasound Guided Assistance: Yes Sterile Dressing Applied: Yes
[2019-07-08] MEDS: CHLORHEXIDINE GLUCONATE 4% CLEANSER FOR DECOLONIZATION TP SCH (21:38)
[2019-07-09] MEDS: PROPOFOL 1,000,000 MCG/100 ML VIAL IVPB SCH ×3 (01:00→21:23)
[2019-07-09] MEDS: MORPHINE SULFATE/0.9% NACL/PF 100 MG/100 ML BAG IVPB SCH ×2 (05:13→20:34)
[2019-07-09] MEDS: TOPIRAMATE 200 MG TABLET PO SCH ×3 (05:13→21:23)
[2019-07-09 06:20] LABS: HEMATOCRIT 27.1 % (35.4-49); HEMOGLOBIN 8.9 GM/dL (11.7-16.9); MCHC 32.8 g/dl (32.0-35.9); MEAN CELL VOLUME 91.4 fl (80-96); RBC 2.97 M/mm3 (4.00-5.60); RDW 15.6 % (11.9-15.9); WHITE BLOOD COUNT 15.2 K/mm3 (4.0-10.0)
[2019-07-09 06:21] LABS: MEAN PLT VOLUME 9.3 fl (7.5-11.1); PLATELET COUNT 330 K/MM3 (134-434)
[2019-07-09 06:26] LABS: ARTERIAL BLD GAS O2 SATURATION 95.7 % (95-98); ARTERIAL BLOOD GAS BASE EXCESS 4.4 mmol/L (-2-2); ARTERIAL BLOOD GAS PCO2 47.8 mmHg (35-45); ARTERIAL BLOOD GAS PO2 84.2 mmHg (80-100); ARTERIAL BLOOD GAS pH 7.41 (7.35-7.45)
[2019-07-09 07:21] LABS: ALBUMIN 1.4 g/dl (3.4-5.0); BILIRUBIN,TOTAL 0.5 mg/dL (0.2-1); BLOOD UREA NITROGEN 39.7 mg/dL (7-18); CALCIUM 7.7 mg/dL (8.5-10.1); CREATININE 0.3 mg/dL (0.55-1.3); MAGNESIUM 1.4 mg/dL (1.8-2.4); PHOSPHOROUS 2.5 mg/dL (2.5-4.9); POTASSIUM 4.2 mmol/L (3.5-5.1); TOT PROT 4.4 g/dl (6.4-8.2)
[2019-07-09 07:28] LABS: ALLENS TEST POSITIVE
[2019-07-09] MEDS: ENOXAPARIN NA (PORCINE) 80 MG/0.8 ML DISP.SYRIN SQ SCH ×2 (09:53→20:34)
[2019-07-09] MEDS: AMINO ACIDS/PROTEIN HYDROLYS 30 ML LIQUID.PKT PO SCH ×2 (09:53→18:38)
[2019-07-09] MEDS: ERTAPENEM SODIUM 1 GM in SODIUM CHLORIDE 50 ML IVPB SCH (09:53)
[2019-07-09] MEDS: levETIRAcetam 500 MG/5 ML INJECTION VIAL IVPB SCH ×2 (09:53→21:23)
[2019-07-09] MEDS: ZINC SULFATE 220 MG CAPSULE (FP) PO SCH ×2 (09:54→21:23)
[2019-07-09] MEDS: PANTOPRAZOLE SODIUM 40 MG VIAL IVPUSH SCH (09:54)
[2019-07-09] MEDS: ASCORBIC ACID 500 MG TABLET (FP) PO SCH (09:54)
[2019-07-09] MEDS: CHOLECALCIFEROL (VIT D3) 400 UNIT (10 MCG) TABLET PO SCH (09:54)
[2019-07-09] MEDS: Lacosamide 200 MG/20 ML VIAL IVPB SCH ×2 (09:54→21:23)
[2019-07-09] MEDS: PHENobarbital 20 MG/5 ML UNIT-DOSE CUP GT SCH ×2 (09:54→21:23)
[2019-07-09] MEDS: VANCOMYCIN HCL 1,500 MG in DEXTROSE 5%-WATER - 500 ML IVPB SCH ×2 (09:54→21:23)
--- NOTE | 2019-07-09 10:03 | PN ---
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 (short form) - Note 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: 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s Pulm/CCM Pt seen and examined in the ICU. Remains intubated and sedated. Opening eyes. Comfortable on vent. Current Medications Generic Name Dose Route Start Last Admin Trade Name Freq PRN Reason Stop Dose Admin Acetaminophen 650 mg 06/22/19 23:14 06/28/19 22:28 Tylenol - PO 650 mg Q4H PRN Administration FEVER Amino Acids 30 ml 07/06/19 17:30 07/09/19 09:53 Prosource No Carb Liquid Pkt PO 30 ml BID@0800,1730 [facility] Administration Ascorbic Acid 500 mg 07/08/19 11:00 07/09/19 09:54 Vitamin C - PO 500 mg DAILY [facility] Administration Chlorhexidine Gluconate 1 applic 06/22/19 22:00 07/08/19 21:38 Hibiclens For Decolonization - TP 1 applic HS [facility] Administration Cholecalciferol 800 unit 07/03/19 16:00 07/09/19 09:54 Vitamin D3 - PO 800 unit DAILY [facility] Administration Enoxaparin Sodium 80 mg 07/05/19 08:00 07/09/19 09:53 Lovenox - SQ 80 mg Q12H [facility] Administration Propofol 1,000,000 mcg in 100 mls @ 2.313 mls/hr 06/22/19 14:00 07/09/19 09:54 Diprivan - IVPB 40 mcg/kg/min TITR [facility] 18.507 mls/hr Titration Protocol 5 MCG/KG/MIN Morphine Sulfate 100 mg in 100 mls @ 1 mls/hr 06/22/19 21:30 07/09/19 05:13 Morphine 100mg/100ml-0.9% Nacl IVPB 8 mg/hr TITR [facility] 8 mls/hr Administration Protocol 1 MG/HR Ertapenem 1 gm/ Sodium 50 mls @ 100 mls/hr 07/03/19 10:00 07/09/19 09:53 Chloride IVPB 100 mls/hr DAILY [facility] Administration Vancomycin HCl 1,500 mg/ 500 mls @ 250 mls/hr 07/06/19 22:00 07/09/19 09:54 Dextrose IVPB 250 mls/hr Q12H [facility] Administration Protocol Lacosamide 200 mg 06/23/19 10:00 07/09/19 09:54 Vimpat Injection - IVPB 200 mg BID [facility] Administration Levetiracetam 1,000 mg 06/23/19 10:00 07/09/19 09:53 Keppra Injection - IVPB 1,000 mg BID [facility] Administration Pantoprazole Sodium 40 mg 06/24/19 10:00 07/09/19 09:54 Protonix Iv IVPUSH 40 mg DAILY [facility] Administration Phenobarbital 60 mg 06/28/19 10:00 07/09/19 09:54 Phenobarbital Liquid - GT 60 mg BID [facility] Administration Topiramate 200 mg 06/23/19 14:00 07/09/19 05:13 Topamax - PO 200 mg TID [facility] Administration Zinc Sulfate 220 mg 06/23/19 22:00 07/09/19 09:54 Orazinc - PO 220 mg BID [facility] Administration Vital Signs Period Temp Pulse Resp BP Sys/Ortiz Pulse Ox Last 24 Hr 96.4 F-97.9 F 54-78 30-38 102-151/53-98 Intake & Output 07/06/19 07/07/19 07/08/19 07/09/19 23:59 23:59 23:59 23:59 Intake Total 2132.0 1657.1 3190.3 2007 Output Total 3150 4500 4600 900 Balance -1018.0 -2842.9 -1409.7 1108 Vent AC/VC 30->32/340/50/12 Plat 35 Gen: WNWF male, comfortable, orally intubated HEENT: Clear sclera CV:Regular Rate and Rhythm Lung: Rales bilat GI: Soft, ND, NT Ext: WWP, + edema Neuro: Sedated, RASS-3 ABG Results ABG pH 7.41 (7.35-7.45) 07/09/19 06:07 ABG pCO2 at Pt Temp 47.8 mmHg (35-45) H 07/09/19 06:07 ABG pO2 at Pt Temp 84.2 mmHg (80-100) 07/09/19 06:07 ABG HCO3 29.5 mmol/L (22-27) H 07/09/19 06:07 ABG O2 Sat (Measured) 95.7 % (95-98) 07/09/19 06:07 ABG O2 Content 17.2 % vol 07/09/19 06:07 ABG Base Excess 4.4 mmol/L (-2-2) H 07/09/19 06:07 CBC, BMP 07/09/19 06:00 07/09/19 06:00 Microbiology 07/01/19 18:15 Blood - Peripheral Venous Blood Culture - Final NO GROWTH AFTER 5 DAYS INCUBATION 06/29/19 12:30 Blood - Peripheral Venous Blood Culture - Final Staphylococcus Epidermidis 06/30/19 17:15 Sputum - Endotrachea Suction/Ventilator Gram Stain - Final 06/30/19 17:15 Sputum - Endotrachea Suction/Ventilator Sputum Culture - Final Escherichia Coli Esbl [employer] 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 06/28/19 09:00 Blood - Peripheral Venous Blood Culture - Final Staphylococcus Epidermidis 06/28/19 12:50 Sputum - Endotrachea Suction/Ventilator Gram Stain - Final 06/28/19 12:50 Sputum - Endotrachea Suction/Ventilator Sputum Culture - Final 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 Staphylococcus Aureus 06/25/19 13:40 Blood - Peripheral Venous Blood Culture - Final NO GROWTH AFTER 5 DAYS INCUBATION 06/25/19 13:20 Blood - Peripheral Venous Blood Culture - Final NO GROWTH AFTER 5 DAYS INCUBATION 06/28/19 12:51 Urine - Urine Caceres Urine Culture - Final NO GROWTH OBTAINED 06/22/19 13:00 Blood - Peripheral Venous Blood Culture - Final Staphylococcus Warneri 06/22/19 13:00 Blood - Peripheral Venous Blood Culture - Final Staphylococcus Epidermidis 06/24/19 00:01 Urine - Urine Caceres Urine Culture - Final NO GROWTH OBTAINED 06/24/19 00:01 Urine For Antigen Detection Legionella Antigen - Final 06/24/19 00:01 Urine For Antigen Detection Streptococcus pneumoniae Antigen (M - Final A/ 38y M hx of developmental delay, seizures, now with acute respiratory failure likely secondary to COVID-19/PNA. Intubated and sedated. Seizure disorder Acute hypoxic respiratory failure MR Strep PNA P/ -Sedate for vent synchrony; RASS goal-4 -S/p convalescent plasma(06/25),Plaquenil, tocilizumab for COVID/PNA -Cont steroids -LPV (PBW 68; 3zd=073); increase RR rate -Pulmonary toileting -cont deep sedation/currently stable on 60% -Appreciate ID recs -ID following--> Cont Ertapenem for ecoli esbl in sputum, and vanco for staph bacteremia -cont home AEDs -Continue Zinc, Vit C -Cont free water via NGT for hypernatremia -cont 80 BID lovenox for AC, SCDs BLE -cont PPI for GI ppx -TF -Continue home seizure medications, consider consulting neuro if patient will start having seizures (last seizure 06/15 as per sister) -PPI for PUD ppx -SCDs Marilee Manning, ACNP [id number]
--- NOTE | 2019-07-09 14:40 | PN ---
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 (short form) - Note 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: more responsive Vital Signs Period Temp Pulse Resp BP Sys/Ortiz Pulse Ox Last 24 Hr 96.4 F-97.8 F 54-78 30-38 102-151/53-98 97 cor-rrr lulngs decreased bs at bases abd soft,nt +scrotal edema ext trace edema CBC, BMP 07/09/19 06:00 07/09/19 06:00 Microbiology 07/01/19 18:15 Blood - Peripheral Venous Blood Culture - Final NO GROWTH AFTER 5 DAYS INCUBATION 06/29/19 12:30 Blood - Peripheral Venous Blood Culture - Final Staphylococcus Epidermidis 06/30/19 17:15 Sputum - Endotrachea Suction/Ventilator Gram Stain - Final 06/30/19 17:15 Sputum - Endotrachea Suction/Ventilator Sputum Culture - Final Escherichia Coli Esbl [employer] Interviewer 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 06/28/19 09:00 Blood - Peripheral Venous Blood Culture - Final Staphylococcus Epidermidis 06/28/19 12:50 Sputum - Endotrachea Suction/Ventilator Gram Stain - Final 06/28/19 12:50 Sputum - Endotrachea Suction/Ventilator Sputum Culture - Final 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 Staphylococcus Aureus 06/25/19 13:40 Blood - Peripheral Venous Blood Culture - Final NO GROWTH AFTER 5 DAYS INCUBATION 06/25/19 13:20 Blood - Peripheral Venous Blood Culture - Final NO GROWTH AFTER 5 DAYS INCUBATION 06/28/19 12:51 Urine - Urine Caceres Urine Culture - Final NO GROWTH OBTAINED 06/22/19 13:00 Blood - Peripheral Venous Blood Culture - Final Staphylococcus Warneri 06/22/19 13:00 Blood - Peripheral Venous Blood Culture - Final Staphylococcus Epidermidis 06/24/19 00:01 Urine - Urine Caceres Urine Culture - Final NO GROWTH OBTAINED 06/24/19 00:01 Urine For Antigen Detection Legionella Antigen - Final 06/24/19 00:01 Urine For Antigen Detection Streptococcus pneumoniae Antigen (M - Final imp/reccd hypoxemic resp failure bilateral infiltrates - ertapenem day #6 for ecoli esbl sputum, cxray improved today covid 19 positive staph epi bacteremia- day #01/15 vancomycin s/p line change 06/29 s/p convalescent plasma s/p tocilizumab Problem List - Problems (1) Suspected COVID-19 virus infection Code(s): R68.89 - OTHER GENERAL SYMPTOMS AND SIGNS (2) Acute respiratory failure with hypoxia Code(s): J96.01 - ACUTE RESPIRATORY FAILURE WITH HYPOXIA (3) Bacteremia Code(s): R78.81 - BACTEREMIA
[2019-07-09] MEDS ORDERED: FUROSEMIDE 40 MG/4 ML INJECTABLE VIAL IVPUSH ONE (17:44)
[2019-07-09] MEDS: CHLORHEXIDINE GLUCONATE 4% CLEANSER FOR DECOLONIZATION TP SCH (21:22)
[2019-07-10] MEDS: TOPIRAMATE 200 MG TABLET PO SCH ×3 (06:13→21:13)
[2019-07-10 07:04] LABS: ARTERIAL BLD GAS O2 SATURATION 96.5 % (95-98); ARTERIAL BLOOD GAS PCO2 43.2 mmHg (35-45); ARTERIAL BLOOD GAS PO2 83.2 mmHg (80-100); ARTERIAL BLOOD GAS pH 7.43 (7.35-7.45)
[2019-07-10 07:05] LABS: ARTERIAL BLOOD GAS BASE EXCESS 3.5 mmol/L (-2-2)
[2019-07-10 08:17] LABS: HEMATOCRIT 32.7 % (35.4-49); HEMOGLOBIN 10.9 GM/dL (11.7-16.9); MCH 30.2 pg (25.7-33.7); MCHC 33.4 g/dl (32.0-35.9); MEAN CELL VOLUME 90.5 fl (80-96); MEAN PLT VOLUME 9.9 fl (7.5-11.1); PLATELET COUNT 212 K/MM3 (134-434); RBC 3.62 M/mm3 (4.00-5.60); RDW 17.4 % (11.9-15.9); WHITE BLOOD COUNT 5.5 K/mm3 (4.0-10.0)
[2019-07-10] MEDS ORDERED: FUROSEMIDE 40 MG/4 ML INJECTABLE VIAL IVPUSH ONE (08:17)
--- NOTE | 2019-07-10 08:42 | PN ---
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 (short form) - Note 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: 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s Pulm/CCM Pt seen and examined in the ICU. 24Hr: -more awake, not following -ongoing diuresis, weaning vent settings ABG Results ABG pH 7.43 (7.35-7.45) 07/10/19 05:30 ABG pCO2 at Pt Temp 43.2 mmHg (35-45) 07/10/19 05:30 ABG pO2 at Pt Temp 83.2 mmHg (80-100) 07/10/19 05:30 ABG HCO3 28.2 mmol/L (22-27) H 07/10/19 05:30 ABG O2 Sat (Measured) 96.5 % (95-98) 07/10/19 05:30 ABG O2 Content No Result Required. 07/10/19 05:30 ABG Base Excess 3.5 mmol/L (-2-2) H 07/10/19 05:30 Vent AC/VC Plat 25/420/70/10 pPlat 28 Gen: WNWF male, comfortable, orally intubated HEENT: Clear sclera CV:Regular Rate and Rhythm Lung: Rales bilat GI: Soft, ND, NT Ext: WWP, + edema Neuro: Sedated, RASS-3 Vital Signs Temp 97.6 F 07/10/19 08:00 Pulse 66 07/10/19 08:00 Resp 32 H 07/10/19 08:11 BP 116/62 07/10/19 08:00 Pulse Ox 97 07/10/19 03:00 Intake & Output 07/09/19 07/09/19 07/10/19 11:59 23:59 11:59 Intake Total 20071 Output Total 900 2800 1100 Balance 1108 -283 1221 Intake: IV 248 327 313 DIPRIVAN - 1,000,000 mcg 195 229 166 In 100 ml @ 5 MCG/KG/MIN 2.313 mls/hr IVPB TITR [facility] Rx#:[id number] MORPHINE 100MG/100ML-0.9% 53 98 147 NACL 100 mg In 100 ml @ 1 MG/HR 1 mls/hr IVPB TITR [facility] Rx#:[id number] IVPB 500 1000 500 Tube Feeding 510 440 510 Fresh Frozen Plasma 198 Tube Irrigant 750 750 800 Output: Urine 900 2800 1100 Caceres 900 2800 1100 Other: Voiding Method Indwelling Catheter Indwelling Catheter Bowel Movement No No Microbiology 07/01/19 18:15 Blood - Peripheral Venous Blood Culture - Final NO GROWTH AFTER 5 DAYS INCUBATION 06/29/19 12:30 Blood - Peripheral Venous Blood Culture - Final Staphylococcus Epidermidis 06/30/19 17:15 Sputum - Endotrachea Suction/Ventilator Gram Stain - Final 06/30/19 17:15 Sputum - Endotrachea Suction/Ventilator Sputum Culture - Final Escherichia Coli Esbl [employer]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 06/28/19 09:00 Blood - Peripheral Venous Blood Culture - Final Staphylococcus Epidermidis 06/28/19 12:50 Sputum - Endotrachea Suction/Ventilator Gram Stain - Final 06/28/19 12:50 Sputum - Endotrachea Suction/Ventilator Sputum Culture - Final 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 Staphylococcus Aureus 06/25/19 13:40 Blood - Peripheral Venous Blood Culture - Final NO GROWTH AFTER 5 DAYS INCUBATION 06/25/19 13:20 Blood - Peripheral Venous Blood Culture - Final NO GROWTH AFTER 5 DAYS INCUBATION 06/28/19 12:51 Urine - Urine Caceres Urine Culture - Final NO GROWTH OBTAINED 06/22/19 13:00 Blood - Peripheral Venous Blood Culture - Final Staphylococcus Warneri 06/22/19 13:00 Blood - Peripheral Venous Blood Culture - Final Staphylococcus Epidermidis 06/24/19 00:01 Urine - Urine Caceres Urine Culture - Final NO GROWTH OBTAINED 06/24/19 00:01 Urine For Antigen Detection Legionella Antigen - Final 06/24/19 00:01 Urine For Antigen Detection Streptococcus pneumoniae Antigen (M - Final Active Medications Acetaminophen (Tylenol -) 650 mg PO Q4H PRN PRN Reason: FEVER Last Admin: 06/28/19 22:28 Dose: 650 mg Documented by: Amino Acids (Prosource No Carb Liquid Pkt) 30 ml PO BID@0800,1730 [facility] Last Admin: 07/09/19 18:38 Dose: 30 ml Documented by: Ascorbic Acid (Vitamin C -) 500 mg PO DAILY [facility] Last Admin: 07/09/19 09:54 Dose: 500 mg Documented by: Chlorhexidine Gluconate (Hibiclens For Decolonization -) 1 applic TP [facility] Last Admin: 07/09/19 21:22 Dose: 1 applic Documented by: Cholecalciferol (Vitamin D3 -) 800 unit PO DAILY [facility] Last Admin: 07/09/19 09:54 Dose: 800 unit Documented by: Enoxaparin Sodium (Lovenox -) 80 mg SQ Q12H [facility] Last Admin: 07/09/19 20:34 Dose: 80 mg Documented by: Propofol (Diprivan -) 1,000,000 mcg in 100 mls @ 2.313 mls/hr IVPB TITR [facility]; Protocol Last Titration: 07/10/19 08:00 Dose: 16 mcg/kg/min, 7.403 mls/hr Documented by: Morphine Sulfate (Morphine 100mg/100ml-0.9% Nacl) 100 mg in 100 mls @ 1 mls/hr IVPB TITR [facility]; Protocol Last Infusion: 07/10/19 08:00 Dose: 5 mg/hr, 5 mls/hr Documented by: Ertapenem 1 gm/ Sodium (Chloride) 50 mls @ 100 mls/hr IVPB DAILY [facility] Last Admin: 07/09/19 09:53 Dose: 100 mls/hr Documented by: Vancomycin HCl 1,500 mg/ (Dextrose) 500 mls @ 250 mls/hr IVPB Q12H [facility]; Protocol Last Admin: 07/09/19 21:23 Dose: 250 mls/hr Documented by: Lacosamide (Vimpat Injection -) 200 mg IVPB BID [facility] Last Admin: 07/09/19 21:23 Dose: 200 mg Documented by: Levetiracetam (Keppra Injection -) 1,000 mg IVPB BID [facility] Last Admin: 07/09/19 21:23 Dose: 1,000 mg Documented by: Pantoprazole Sodium (Protonix Iv) 40 mg IVPUSH DAILY [facility] Last Admin: 07/09/19 09:54 Dose: 40 mg Documented by: Phenobarbital (Phenobarbital Liquid -) 60 mg GT BID [facility] Last Admin: 07/09/19 21:23 Dose: 60 mg Documented by: Topiramate (Topamax -) 200 mg PO TID [facility] Last Admin: 07/10/19 06:13 Dose: 200 mg Documented by: Zinc Sulfate (Orazinc -) 220 mg PO BID [facility] Last Admin: 07/09/19 21:23 Dose: 220 mg Documented by: A/ 38y M hx of developmental delay, seizures, now with acute respiratory failure likely secondary to COVID-19/PNA. Intubated and sedated. Seizure disorder Acute hypoxic respiratory failure MR Strep PNA P/ -Vent wean, daily awakening, -S/p convalescent plasma(06/25),Plaquenil, tocilizumab for COVID/PNA -s/p steroid course -LPV (PBW 68; 7yz=265); -Pulmonary toileting -wean sedation -Appreciate ID recs -ID following--> Cont Ertapenem for ecoli esbl in sputum, and vanco for staph bacteremia , soon completed -cont home AEDs -Continue Zinc, Vit C -Cont free water via NGT for hypernatremia -cont 80 BID lovenox for AC, SCDs BLE -cont PPI for GI ppx -TF -Continue home seizure medications, consider consulting neuro if patient will start having seizures (last seizure 06/15 as per sister) -PPI for PUD ppx -SCDs Karley ACNP [id number] 35min CCT
[2019-07-10 08:51] LABS: ALBUMIN 1.9 g/dl (3.4-5.0); BILIRUBIN,DIRECT 0.1 mg/dL (0.0-0.2); BILIRUBIN,TOTAL 0.3 mg/dL (0.2-1); BLOOD UREA NITROGEN 12.9 mg/dL (7-18); CALCIUM 7.5 mg/dL (8.5-10.1); CREATININE 0.2 mg/dL (0.55-1.3); MAGNESIUM 1.8 mg/dL (1.8-2.4); PHOSPHOROUS 4.5 mg/dL (2.5-4.9); POTASSIUM 3.2 mmol/L (3.5-5.1); TOT PROT 4.3 g/dl (6.4-8.2)
[2019-07-10] MEDS: VANCOMYCIN HCL 1,500 MG in DEXTROSE 5%-WATER - 500 ML IVPB SCH ×2 (09:30→21:13)
[2019-07-10] MEDS: PANTOPRAZOLE SODIUM 40 MG VIAL IVPUSH SCH (09:30)
[2019-07-10] MEDS: levETIRAcetam 500 MG/5 ML INJECTION VIAL IVPB SCH ×2 (09:35→21:13)
[2019-07-10] MEDS: Lacosamide 200 MG/20 ML VIAL IVPB SCH ×2 (09:35→21:13)
[2019-07-10] MEDS: ENOXAPARIN NA (PORCINE) 80 MG/0.8 ML DISP.SYRIN SQ SCH ×2 (09:45→21:12)
[2019-07-10] MEDS: ZINC SULFATE 220 MG CAPSULE (FP) PO SCH ×2 (09:45→21:13)
[2019-07-10] MEDS: PHENobarbital 20 MG/5 ML UNIT-DOSE CUP GT SCH ×2 (09:45→21:13)
[2019-07-10] MEDS: AMINO ACIDS/PROTEIN HYDROLYS 30 ML LIQUID.PKT PO SCH ×2 (09:45→17:58)
[2019-07-10] MEDS: ASCORBIC ACID 500 MG TABLET (FP) PO SCH (09:45)
[2019-07-10] MEDS: CHOLECALCIFEROL (VIT D3) 400 UNIT (10 MCG) TABLET PO SCH (09:45)
[2019-07-10] MEDS: ERTAPENEM SODIUM 1 GM in SODIUM CHLORIDE 50 ML IVPB SCH (11:10)
[2019-07-10] MEDS: PROPOFOL 1,000,000 MCG/100 ML VIAL IVPB SCH (13:46)
--- NOTE | 2019-07-10 13:48 | PN ---
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 (short form) - Note 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: opens eyes, can squeeze my hands remains on vent able to move both feet on command a little Vital Signs Period Temp Pulse Resp BP Sys/Ortiz Pulse Ox Last 24 Hr 94.1 F-97.8 F 54-86 30-39 100-143/53-94 97-98 cor-rrr lungs decreased bs at bases abd soft,nt ext no edema CBC, BMP 07/10/19 05:30 07/10/19 05:30 Microbiology 07/01/19 18:15 Blood - Peripheral Venous Blood Culture - Final NO GROWTH AFTER 5 DAYS INCUBATION 06/29/19 12:30 Blood - Peripheral Venous Blood Culture - Final Staphylococcus Epidermidis 06/30/19 17:15 Sputum - Endotrachea Suction/Ventilator Gram Stain - Final 06/30/19 17:15 Sputum - Endotrachea Suction/Ventilator Sputum Culture - Final Escherichia Coli 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 [employer] 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 06/28/19 09:00 Blood - Peripheral Venous Blood Culture - Final Staphylococcus Epidermidis 06/28/19 12:50 Sputum - Endotrachea Suction/Ventilator Gram Stain - Final 06/28/19 12:50 Sputum - Endotrachea Suction/Ventilator Sputum Culture - Final 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 Staphylococcus Aureus 06/25/19 13:40 Blood - Peripheral Venous Blood Culture - Final NO GROWTH AFTER 5 DAYS INCUBATION 06/25/19 13:20 Blood - Peripheral Venous Blood Culture - Final NO GROWTH AFTER 5 DAYS INCUBATION 06/28/19 12:51 Urine - Urine Caceres Urine Culture - Final NO GROWTH OBTAINED 06/22/19 13:00 Blood - Peripheral Venous Blood Culture - Final Staphylococcus Warneri 06/22/19 13:00 Blood - Peripheral Venous Blood Culture - Final Staphylococcus Epidermidis 06/24/19 00:01 Urine - Urine Caceres Urine Culture - Final NO GROWTH OBTAINED 06/24/19 00:01 Urine For Antigen Detection Legionella Antigen - Final 06/24/19 00:01 Urine For Antigen Detection Streptococcus pneumoniae Antigen (M - Final cxray improved aeration imp/reccd hypoxemic resp failure bilateral infiltrates - ertapenem day #7 for ecoli esbl sputum, cxray improved today covid 19 positive staph epi bacteremia- day #12/14 vancomycin s/p line change 06/29 s/p convalescent plasma s/p tocilizumab improved Problem List - Problems (1) Suspected COVID-19 virus infection Code(s): R68.89 - OTHER GENERAL SYMPTOMS AND SIGNS (2) Acute respiratory failure with hypoxia Code(s): J96.01 - ACUTE RESPIRATORY FAILURE WITH HYPOXIA (3) Bacteremia Code(s): R78.81 - BACTEREMIA
[2019-07-10] MEDS ORDERED: POTASSIUM CHLORIDE ORAL LIQUID 20 MEQ/15 ML PO ONE (15:46)
[2019-07-10] MEDS: CHLORHEXIDINE GLUCONATE 4% CLEANSER FOR DECOLONIZATION TP SCH (21:13)
[2019-07-10] MEDS: MORPHINE SULFATE/0.9% NACL/PF 100 MG/100 ML BAG IVPB SCH (21:13)
[2019-07-11] MEDS: MORPHINE SULFATE/0.9% NACL/PF 100 MG/100 ML BAG IVPB SCH (04:58)
[2019-07-11] MEDS: TOPIRAMATE 200 MG TABLET PO SCH ×3 (04:59→21:09)
[2019-07-11] MEDS: PROPOFOL 1,000,000 MCG/100 ML VIAL IVPB SCH ×3 (04:59→23:53)
[2019-07-11 06:28] LABS: ARTERIAL BLD GAS O2 SATURATION 94.2 % (95-98); ARTERIAL BLOOD GAS PO2 74.3 mmHg (80-100); ARTERIAL BLOOD GAS pH 7.35 (7.35-7.45)
[2019-07-11 06:30] LABS: ALLENS TEST POSITIVE
[2019-07-11 08:05] LABS: HEMATOCRIT 34.2 % (35.4-49); HEMOGLOBIN 11.5 GM/dL (11.7-16.9); MCH 30.3 pg (25.7-33.7); MCHC 33.7 g/dl (32.0-35.9); MEAN PLT VOLUME 9.9 fl (7.5-11.1); PLATELET COUNT 193 K/MM3 (134-434); RBC 3.79 M/mm3 (4.00-5.60); RDW 17.6 % (11.9-15.9); WHITE BLOOD COUNT 5.6 K/mm3 (4.0-10.0)
[2019-07-11 08:08] LABS: BILIRUBIN,TOTAL 0.3 mg/dL (0.2-1); CALCIUM 7.7 mg/dL (8.5-10.1); CREATININE 0.3 mg/dL (0.55-1.3); MAGNESIUM 1.9 mg/dL (1.8-2.4); PHOSPHOROUS 4.8 mg/dL (2.5-4.9); POTASSIUM 3.6 mmol/L (3.5-5.1); TOT PROT 4.8 g/dl (6.4-8.2)
--- NOTE | 2019-07-11 09:25 | PN ---
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 (short form) - Note 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: 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s Pulm/CCM Pt seen and examined in the ICU. 24Hr: -continues to improve -ongoing diuresis -low grade temp ABG Results ABG pH 7.35 (7.35-7.45) 07/11/19 05:30 ABG pCO2 at Pt Temp 50.0 mmHg (35-45) H 07/11/19 05:30 ABG pO2 at Pt Temp 74.3 mmHg (80-100) L 07/11/19 05:30 ABG HCO3 27.2 mmol/L (22-27) H 07/11/19 05:30 ABG O2 Sat (Measured) 94.2 % (95-98) L 07/11/19 05:30 ABG O2 Content No Result Required. 07/11/19 05:30 ABG Base Excess 1.0 mmol/L (-2-2) 07/11/19 05:30 Vent AC/VC Plat 25/420/40/10 pPlat 26 Gen: WNWF male, comfortable, orally intubated HEENT: Clear sclera CV:Regular Rate and Rhythm Lung: few crackles GI: Soft, ND, NT Ext: WWP, + edema Neuro: intermittent follows simple commands Vital Signs Temp 99.6 F 07/11/19 08:00 Pulse 99 H 07/11/19 08:00 Resp 45 H 07/11/19 08:00 BP 107/57 L 07/11/19 08:00 Pulse Ox 97 07/10/19 21:33 Intake & Output 07/10/19 07/10/19 07/11/19 11:59 23:59 11:59 Intake Total 2321 1712 1955.3 Output Total 3450 1525 900 Balance -7369 028 2110.3 Intake: IV 313 158 201.3 DIPRIVAN - 1,000,000 mcg 166 101 135.4 In 100 ml @ 5 MCG/KG/MIN 2.313 mls/hr IVPB TITR [facility] Rx#:[id number] MORPHINE 100MG/100ML-0.9% 147 57 65.9 NACL 100 mg In 100 ml @ 1 MG/HR 1 mls/hr IVPB TITR [facility] Rx#:[id number] IVPB 500 600 500 Oral 100 Tube Feeding 510 354 504 Fresh Frozen Plasma 198 Tube Irrigant 800 500 750 Output: Urine 3450 1525 900 Caceres 3450 1525 900 Other: Voiding Method Indwelling Catheter Indwelling Catheter Bowel Movement No No No Body Mass Index (BMI) 25.7 Microbiology 07/01/19 18:15 Blood - Peripheral Venous Blood Culture - Final NO GROWTH AFTER 5 DAYS INCUBATION 06/29/19 12:30 Blood - Peripheral Venous Blood Culture - Final Staphylococcus Epidermidis 06/30/19 17:15 Sputum - Endotrachea Suction/Ventilator Gram Stain - Final 06/30/19 17:15 Sputum - Endotrachea Suction/Ventilator Sputum Culture - Final Escherichia 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 06/28/19 09:00 Blood - Peripheral Venous Blood Culture - Final Staphylococcus Epidermidis 06/28/19 12:50 Sputum - Endotrachea Suction/Ventilator Gram Stain - Final 06/28/19 12:50 Sputum - Endotrachea Suction/Ventilator Sputum Culture - Final 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 Staphylococcus Aureus 06/25/19 13:40 Blood - Peripheral Venous Blood Culture - Final NO GROWTH AFTER 5 DAYS INCUBATION 06/25/19 13:20 Blood - Peripheral Venous Blood Culture - Final NO GROWTH AFTER 5 DAYS INCUBATION 06/28/19 12:51 Urine - Urine Caceres Urine Culture - Final NO GROWTH OBTAINED 06/22/19 13:00 Blood - Peripheral Venous Blood Culture - Final Staphylococcus Warneri 06/22/19 13:00 Blood - Peripheral Venous Blood Culture - Final Staphylococcus Epidermidis 06/24/19 00:01 Urine - Urine Caceres Urine Culture - Final NO GROWTH OBTAINED 06/24/19 00:01 Urine For Antigen Detection Legionella Antigen - Final 06/24/19 00:01 Urine For Antigen Detection Streptococcus pneumoniae Antigen (M - Final Active Medications Acetaminophen (Tylenol -) 650 mg PO Q4H PRN PRN Reason: FEVER Last Admin: 06/28/19 22:28 Dose: 650 mg Documented by: Amino Acids (Prosource No Carb Liquid Pkt) 30 ml PO BID@0800,1730 [facility] Last Admin: 07/10/19 17:58 Dose: 30 ml Documented by: Ascorbic Acid (Vitamin C -) 500 mg PO DAILY [facility] Last Admin: 07/10/19 09:45 Dose: 500 mg Documented by: Chlorhexidine Gluconate (Hibiclens For Decolonization -) 1 applic TP HS [facility] Last Admin: 07/10/19 21:13 Dose: 1 applic Documented by: Cholecalciferol (Vitamin D3 -) 800 unit PO DAILY [facility] Last Admin: 07/10/19 09:45 Dose: 800 unit Documented by: Enoxaparin Sodium (Lovenox -) 80 mg SQ Q12H [facility] Last Admin: 07/10/19 21:12 Dose: 80 mg Documented by: Furosemide (Lasix Injection -) 40 mg IVPUSH ONCE ONE Stop: 07/11/19 09:22 Propofol (Diprivan -) 1,000,000 mcg in 100 mls @ 2.313 mls/hr IVPB TITR [facility]; Protocol Last Admin: 07/11/19 04:59 Dose: 32 mcg/kg/min, 14.805 mls/hr Documented by: Morphine Sulfate (Morphine 100mg/100ml-0.9% Nacl) 100 mg in 100 mls @ 1 mls/hr IVPB TITR [facility]; Protocol Last Admin: 07/11/19 04:58 Dose: 7 mg/hr, 7 mls/hr Documented by: Ertapenem 1 gm/ Sodium (Chloride) 50 mls @ 100 mls/hr IVPB DAILY [facility] Last Admin: 07/10/19 11:10 Dose: 100 mls/hr Documented by: Vancomycin HCl 1,500 mg/ (Dextrose) 500 mls @ 250 mls/hr IVPB Q12H [facility]; Protocol Last Admin: 07/10/19 21:13 Dose: 250 mls/hr Documented by: Lacosamide (Vimpat Injection -) 200 mg IVPB BID [facility] Last Admin: 07/10/19 21:13 Dose: 200 mg Documented by: Levetiracetam (Keppra Injection -) 1,000 mg IVPB BID [facility] Last Admin: 07/10/19 21:13 Dose: 1,000 mg Documented by: Pantoprazole Sodium (Protonix Iv) 40 mg IVPUSH DAILY [facility] Last Admin: 07/10/19 09:30 Dose: 40 mg Documented by: Phenobarbital (Phenobarbital Liquid -) 60 mg GT BID [facility] Last Admin: 07/10/19 21:13 Dose: 60 mg Documented by: Topiramate (Topamax -) 200 mg PO TID [facility] Last Admin: 07/11/19 04:59 Dose: 200 mg Documented by: Zinc Sulfate (Orazinc -) 220 mg PO BID [facility] Last Admin: 07/10/19 21:13 Dose: 220 mg Documented by: A/ 38y M hx of developmental delay, seizures, now with acute respiratory failure likely secondary to COVID-19/PNA. Intubated and sedated. Seizure disorder Acute hypoxic respiratory failure MR Strep PNA P/ -Vent wean, daily awakening, -S/p convalescent plasma(06/25),Plaquenil, tocilizumab for COVID/PNA -s/p steroid course -LPV (PBW 68; 9re=235); -wean sedation as tolerated -Appreciate ID recs -ID following--> Cont Ertapenem for ecoli esbl in sputum, and vanco for staph bacteremia , soon completed -cont home AEDs -Continue Zinc, Vit C -cont 80 BID lovenox for AC, SCDs BLE -cont PPI for GI ppx -TF -Continue home seizure medications -PPI for PUD ppx -SCDs Karley ACNP 4436 35min CCT
[2019-07-11] MEDS ORDERED: FUROSEMIDE 40 MG/4 ML INJECTABLE VIAL IVPUSH ONE ×2 (10:00→18:00)
[2019-07-11] MEDS: PANTOPRAZOLE SODIUM 40 MG VIAL IVPUSH SCH (10:30)
[2019-07-11] MEDS: levETIRAcetam 500 MG/5 ML INJECTION VIAL IVPB SCH ×2 (10:30→21:09)
[2019-07-11] MEDS: CHOLECALCIFEROL (VIT D3) 400 UNIT (10 MCG) TABLET PO SCH (10:30)
[2019-07-11] MEDS: PHENobarbital 20 MG/5 ML UNIT-DOSE CUP GT SCH ×2 (10:30→21:09)
[2019-07-11] MEDS: ENOXAPARIN NA (PORCINE) 80 MG/0.8 ML DISP.SYRIN SQ SCH ×2 (10:30→20:35)
[2019-07-11] MEDS: AMINO ACIDS/PROTEIN HYDROLYS 30 ML LIQUID.PKT PO SCH ×2 (10:30→18:19)
[2019-07-11] MEDS: ASCORBIC ACID 500 MG TABLET (FP) PO SCH (10:30)
[2019-07-11] MEDS: ZINC SULFATE 220 MG CAPSULE (FP) PO SCH ×2 (10:30→21:09)
[2019-07-11] MEDS: Lacosamide 200 MG/20 ML VIAL IVPB SCH ×2 (10:30→21:09)
[2019-07-11] MEDS: ERTAPENEM SODIUM 1 GM in SODIUM CHLORIDE 50 ML IVPB SCH (10:35)
[2019-07-11] MEDS: VANCOMYCIN HCL 1,500 MG in DEXTROSE 5%-WATER - 500 ML IVPB SCH ×2 (10:45→21:09)
[2019-07-11] MEDS: ACETAMINOPHEN 650 MG/20.3 ML ORAL SOLUTION (CUPS) PO PRN (12:19)
--- NOTE | 2019-07-11 18:05 | PN ---
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, Physician Chief Complaint: INTUBATED TEMP ELEVATION NOTED WBC WNL VANCO T 14.8 History of Present Illness: INTUBATED TEMPS DOWN AFEBRILE WBC WNL BC SCN X2 - Current Medication List Current Medications: Active Medications Acetaminophen (Tylenol Oral Solution -) 650 mg PO Q6H PRN PRN Reason: FEVER Last Admin: 07/11/19 12:19 Dose: 650 mg Documented by: Amino Acids (Prosource No Carb Liquid Pkt) 30 ml PO BID@0800,1730 [facility] Last Admin: 07/11/19 10:30 Dose: 30 ml Documented by: Ascorbic Acid (Vitamin C -) 500 mg PO DAILY [facility] Last Admin: 07/11/19 10:30 Dose: 500 mg Documented by: Chlorhexidine Gluconate (Hibiclens For Decolonization -) 1 applic TP HS [facility] Last Admin: 07/10/19 21:13 Dose: 1 applic Documented by: Cholecalciferol (Vitamin D3 -) 800 unit PO DAILY [facility] Last Admin: 07/11/19 10:30 Dose: 800 unit Documented by: Enoxaparin Sodium (Lovenox -) 80 mg SQ Q12H [facility] Last Admin: 07/11/19 10:30 Dose: 80 mg Documented by: Propofol (Diprivan -) 1,000,000 mcg in 100 mls @ 2.313 mls/hr IVPB TITR [facility]; Protocol Last Admin: 07/11/19 14:00 Dose: 35 mcg/kg/min, 16.193 mls/hr Documented by: Morphine Sulfate (Morphine 100mg/100ml-0.9% Nacl) 100 mg in 100 mls @ 1 mls/hr IVPB TITR [facility]; Protocol Last Admin: 07/11/19 04:58 Dose: 7 mg/hr, 7 mls/hr Documented by: Ertapenem 1 gm/ Sodium (Chloride) 50 mls @ 100 mls/hr IVPB DAILY [facility] Last Admin: 07/11/19 10:35 Dose: 100 mls/hr Documented by: Vancomycin HCl 1,500 mg/ (Dextrose) 500 mls @ 250 mls/hr IVPB Q12H [facility]; Protocol Last Admin: 07/11/19 10:45 Dose: 250 mls/hr Documented by: Lacosamide (Vimpat Injection -) 200 mg IVPB BID [facility] Last Admin: 07/11/19 10:30 Dose: 200 mg Documented by: Levetiracetam (Keppra Injection -) 1,000 mg IVPB BID [facility] Last Admin: 07/11/19 10:30 Dose: 1,000 mg Documented by: Pantoprazole Sodium (Protonix Iv) 40 mg IVPUSH DAILY [facility] Last Admin: 07/11/19 10:30 Dose: 40 mg Documented by: Phenobarbital (Phenobarbital Liquid -) 60 mg GT BID [facility] Last Admin: 07/11/19 10:30 Dose: 60 mg Documented by: Topiramate (Topamax -) 200 mg PO TID [facility] Last Admin: 07/11/19 14:39 Dose: 200 mg Documented by: Zinc Sulfate (Orazinc -) 220 mg PO BID [facility] Last Admin: 07/11/19 10:30 Dose: 220 mg Documented by: - Objective Vital Signs: Vital Signs Temperature 100.3 F H 07/11/19 14:00 Pulse Rate 101 H 07/11/19 16:00 Respiratory Rate 07/11/19 16:00 Blood Pressure 113/54 L 07/11/19 16:00 O2 Sat by Pulse Oximetry (%) 97 07/10/19 21:33 Constitutional: Yes: No Distress Eyes: Yes: Conjunctiva Clear Cardiovascular: Yes: Regular Rate and Rhythm, S1, S2 Respiratory: Yes: Mechanically Ventilated Gastrointestinal: Yes: Normal Bowel Sounds, Soft. No: Tenderness Labs: CBC, BMP 07/11/19 05:15 07/11/19 05:15 INR, PTT INR 0.97 (0.83-1.09) 06/26/19 06:49 Assessment/Plan RESP FAILURE BILATERAL PNEUMONIA COVID-19+ S/P TOCILIZUMAB, PLASMA FEVER +BC SCN CONTINUE VENTILATORY SUPPORT VANCOMYCIN/ ERTAPENEM [place]OR[place] PRECAUTIONS
[2019-07-11] MEDS: CHLORHEXIDINE GLUCONATE 4% CLEANSER FOR DECOLONIZATION TP SCH (21:09)
[2019-07-12 05:40] LABS: ALLENS TEST POSITIVE; ARTERIAL BLD GAS O2 SATURATION 95.9 % (95-98); ARTERIAL BLOOD GAS BASE EXCESS 5.4 mmol/L (-2-2); ARTERIAL BLOOD GAS PCO2 68.3 mmHg (35-45); ARTERIAL BLOOD GAS PO2 90.4 mmHg (80-100); ARTERIAL BLOOD GAS pH 7.31 (7.35-7.45)
[2019-07-12] MEDS: PROPOFOL 1,000,000 MCG/100 ML VIAL IVPB SCH ×3 (05:55→21:41)
[2019-07-12] MEDS: TOPIRAMATE 200 MG TABLET PO SCH ×3 (05:55→21:31)
[2019-07-12 07:22] LABS: HEMATOCRIT 36.1 % (35.4-49); HEMOGLOBIN 11.9 GM/dL (11.7-16.9); MCH 30.2 pg (25.7-33.7); MEAN CELL VOLUME 91.5 fl (80-96); MEAN PLT VOLUME 9.6 fl (7.5-11.1); PLATELET COUNT 179 K/MM3 (134-434); RBC 3.95 M/mm3 (4.00-5.60); RDW 17.7 % (11.9-15.9)
[2019-07-12 08:12] LABS: BLOOD UREA NITROGEN 14.6 mg/dL (7-18); CALCIUM 7.6 mg/dL (8.5-10.1); CREATININE 0.3 mg/dL (0.55-1.3); MAGNESIUM 1.9 mg/dL (1.8-2.4); PHOSPHOROUS 4.4 mg/dL (2.5-4.9); POTASSIUM 3.7 mmol/L (3.5-5.1)
[2019-07-12] MEDS: ACETAMINOPHEN 650 MG/20.3 ML ORAL SOLUTION (CUPS) PO PRN ×2 (09:00→17:30)
[2019-07-12] MEDS: levETIRAcetam 500 MG/5 ML INJECTION VIAL IVPB SCH ×2 (11:00→21:41)
[2019-07-12] MEDS: AMINO ACIDS/PROTEIN HYDROLYS 30 ML LIQUID.PKT PO SCH ×2 (11:00→17:46)
[2019-07-12] MEDS: ENOXAPARIN NA (PORCINE) 80 MG/0.8 ML DISP.SYRIN SQ SCH ×2 (11:00→20:30)
[2019-07-12] MEDS: Lacosamide 200 MG/20 ML VIAL IVPB SCH ×2 (11:00→21:41)
[2019-07-12] MEDS: CHOLECALCIFEROL (VIT D3) 400 UNIT (10 MCG) TABLET PO SCH (11:00)
[2019-07-12] MEDS: PHENobarbital 20 MG/5 ML UNIT-DOSE CUP GT SCH ×2 (11:00→21:31)
[2019-07-12] MEDS: PANTOPRAZOLE SODIUM 40 MG VIAL IVPUSH SCH (11:00)
[2019-07-12] MEDS: ASCORBIC ACID 500 MG TABLET (FP) PO SCH (11:00)
[2019-07-12] MEDS: ZINC SULFATE 220 MG CAPSULE (FP) PO SCH ×2 (11:00→21:31)
[2019-07-12] MEDS: VANCOMYCIN HCL 1,500 MG in DEXTROSE 5%-WATER - 500 ML IVPB SCH ×2 (11:00→21:31)
[2019-07-12] MEDS: ERTAPENEM SODIUM 1 GM in SODIUM CHLORIDE 50 ML IVPB SCH (12:00)
--- NOTE | 2019-07-12 12:16 | PN ---
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 (short form) - Note 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: Pulm/CCM Pt seen and examined in the ICU. Remains intubated and sedated. Vent settings: 16/360/60/+10 pPlat 35 24Hr: -continues to improve -ongoing diuresis -low grade temp -Will titrate sedation, switch to precedex if available ABG Results ABG pH 7.31 (7.35-7.45) L 07/12/19 05:20 ABG pCO2 at Pt Temp 68.3 mmHg (35-45) H 07/12/19 05:20 ABG pO2 at Pt Temp 90.4 mmHg (80-100) 07/12/19 05:20 ABG HCO3 33.9 mmol/L (22-27) H 07/12/19 05:20 ABG O2 Sat (Measured) 95.9 % (95-98) 07/12/19 05:20 ABG O2 Content No Result Required. 07/12/19 05:20 ABG Base Excess 5.4 mmol/L (-2-2) H 07/12/19 05:20 Gen: WNWF male, comfortable, orally intubated HEENT: Clear sclera CV:Regular Rate and Rhythm Lung: few crackles GI: Soft, ND, NT Ext: WWP, + edema Neuro: intermittent follows simple commands Vital Signs Period Temp Pulse Resp BP Sys/Ortiz Pulse Ox Last 24 Hr 98.9 F-100.6 F 98-106 17-24 104-124/52-75 93-96 Intake & Output 07/09/19 07/10/19 07/11/19 07/12/19 23:59 23:59 23:59 23:59 Intake Total 4525 4033 5222.3 525 Output Total 3700 4975 4550 1100 Balance 825 -942 672.3 -575 Active Medications Acetaminophen (Tylenol Oral Solution -) 650 mg PO Q6H PRN PRN Reason: FEVER Last Admin: 07/12/19 09:00 Dose: 650 mg Documented by: Amino Acids (Prosource No Carb Liquid Pkt) 30 ml PO BID@0800,1730 [facility] Last Admin: 07/12/19 11:00 Dose: 30 ml Documented by: Ascorbic Acid (Vitamin C -) 500 mg PO DAILY [facility] Last Admin: 07/12/19 11:00 Dose: 500 mg Documented by: Chlorhexidine Gluconate (Hibiclens For Decolonization -) 1 applic TP HS [facility] Last Admin: 07/11/19 21:09 Dose: 1 applic Documented by: Cholecalciferol (Vitamin D3 -) 800 unit PO DAILY [facility] Last Admin: 07/12/19 11:00 Dose: 800 unit Documented by: Enoxaparin Sodium (Lovenox -) 80 mg SQ Q12H [facility] Last Admin: 07/12/19 11:00 Dose: 80 mg Documented by: Propofol (Diprivan -) 1,000,000 mcg in 100 mls @ 2.313 mls/hr IVPB TITR [facility]; Protocol Last Admin: 07/12/19 05:55 Dose: 40 mcg/kg/min, 18.507 mls/hr Documented by: Morphine Sulfate (Morphine 100mg/100ml-0.9% Nacl) 100 mg in 100 mls @ 1 mls/hr IVPB TITR [facility]; Protocol Last Admin: 07/11/19 04:58 Dose: 7 mg/hr, 7 mls/hr Documented by: Ertapenem 1 gm/ Sodium (Chloride) 50 mls @ 100 mls/hr IVPB DAILY [facility] Last Admin: 07/12/19 12:00 Dose: 100 mls/hr Documented by: Vancomycin HCl 1,500 mg/ (Dextrose) 500 mls @ 250 mls/hr IVPB Q12H [facility]; Protocol Last Admin: 07/12/19 11:00 Dose: 250 mls/hr Documented by: Norepinephrine Bitartrate (Levophed Bag) 16,000 mcg in 500 mls @ 9.375 mls/hr IVPB TITR [facility]; Protocol Lacosamide (Vimpat Injection -) 200 mg IVPB BID [facility] Last Admin: 07/12/19 11:00 Dose: 200 mg Documented by: Levetiracetam (Keppra Injection -) 1,000 mg IVPB BID [facility] Last Admin: 07/12/19 11:00 Dose: 1,000 mg Documented by: Pantoprazole Sodium (Protonix Iv) 40 mg IVPUSH DAILY [facility] Last Admin: 07/12/19 11:00 Dose: 40 mg Documented by: Phenobarbital (Phenobarbital Liquid -) 60 mg GT BID [facility] Last Admin: 07/12/19 11:00 Dose: 60 mg Documented by: Topiramate (Topamax -) 200 mg PO TID [facility] Last Admin: 07/12/19 05:55 Dose: 200 mg Documented by: Zinc Sulfate (Orazinc -) 220 mg PO BID [facility] Last Admin: 07/12/19 11:00 Dose: 220 mg Documented by: A/ 38y M hx of developmental delay, seizures, now with acute respiratory failure likely secondary to COVID-19/PNA. Intubated and sedated. Seizure disorder Acute hypoxic respiratory failure MR Strep PNA P/ -Vent wean, daily awakening -S/p convalescent plasma(06/25), Plaquenil, tocilizumab for COVID/PNA -s/p steroid course -LPV (PBW 68; 1zx=321); -wean sedation as tolerated -Appreciate ID recs -ID following--> Cont Ertapenem for ecoli esbl in sputum, and vanco for staph bacteremia, soon completed -cont home AEDs -Continue Zinc, Vit C -cont 80 BID lovenox for AC, SCDs BLE -cont PPI for GI ppx -TF -Continue home seizure medications -PPI for PUD ppx -SCDs Juliana Blancas ACNP [phone]
[2019-07-12] MEDS: CHLORHEXIDINE GLUCONATE 4% CLEANSER FOR DECOLONIZATION TP SCH (21:31)
[2019-07-12] MEDS: MORPHINE SULFATE/0.9% NACL/PF 100 MG/100 ML BAG IVPB SCH (21:40)
--- NOTE | 2019-07-12 22:22 | PN ---
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, Physician Chief Complaint: INTUBATED TEMP ELEVATIONS NOTED WBC WNL VANCO T 14.8 History of Present Illness: INTUBATED TEMPS DOWN AFEBRILE WBC WNL BC SCN X2 - Current Medication List Current Medications: Active Medications Acetaminophen (Tylenol Oral Solution -) 650 mg PO Q6H PRN PRN Reason: FEVER Last Admin: 07/12/19 17:30 Dose: 650 mg Documented by: Amino Acids (Prosource No Carb Liquid Pkt) 30 ml PO BID@0800,1730 [facility] Last Admin: 07/12/19 17:46 Dose: 30 ml Documented by: Ascorbic Acid (Vitamin C -) 500 mg PO DAILY [facility] Last Admin: 07/12/19 11:00 Dose: 500 mg Documented by: Chlorhexidine Gluconate (Hibiclens For Decolonization -) 1 applic TP HS [facility] Last Admin: 07/12/19 21:31 Dose: 1 applic Documented by: Cholecalciferol (Vitamin D3 -) 800 unit PO DAILY [facility] Last Admin: 07/12/19 11:00 Dose: 800 unit Documented by: Enoxaparin Sodium (Lovenox -) 80 mg SQ Q12H [facility] Last Admin: 07/12/19 20:30 Dose: 80 mg Documented by: Propofol (Diprivan -) 1,000,000 mcg in 100 mls @ 2.313 mls/hr IVPB TITR [facility]; Protocol Last Admin: 07/12/19 21:41 Dose: 35 mcg/kg/min, 16.193 mls/hr Documented by: Morphine Sulfate (Morphine 100mg/100ml-0.9% Nacl) 100 mg in 100 mls @ 1 mls/hr IVPB TITR [facility]; Protocol Last Admin: 07/12/19 21:40 Dose: 10 mg/hr, 10 mls/hr Documented by: Ertapenem 1 gm/ Sodium (Chloride) 50 mls @ 100 mls/hr IVPB DAILY [facility] Last Admin: 07/12/19 12:00 Dose: 100 mls/hr Documented by: Vancomycin HCl 1,500 mg/ (Dextrose) 500 mls @ 250 mls/hr IVPB Q12H [facility]; Protocol Last Admin: 07/12/19 21:31 Dose: 250 mls/hr Documented by: Norepinephrine Bitartrate (Levophed Bag) 16,000 mcg in 500 mls @ 9.375 mls/hr IVPB TITR [facility]; Protocol Lacosamide (Vimpat Injection -) 200 mg IVPB BID [facility] Last Admin: 07/12/19 21:41 Dose: 200 mg Documented by: Levetiracetam (Keppra Injection -) 1,000 mg IVPB BID [facility] Last Admin: 07/12/19 21:41 Dose: 1,000 mg Documented by: Pantoprazole Sodium (Protonix Iv) 40 mg IVPUSH DAILY [facility] Last Admin: 07/12/19 11:00 Dose: 40 mg Documented by: Phenobarbital (Phenobarbital Liquid -) 60 mg GT BID [facility] Last Admin: 07/12/19 21:31 Dose: 60 mg Documented by: Topiramate (Topamax -) 200 mg PO TID [facility] Last Admin: 07/12/19 21:31 Dose: 200 mg Documented by: Zinc Sulfate (Orazinc -) 220 mg PO BID [facility] Last Admin: 07/12/19 21:31 Dose: 220 mg Documented by: - Objective Vital Signs: Vital Signs Temperature 99 F 07/12/19 20:00 Pulse Rate 98 H 07/12/19 20:00 Respiratory Rate 20 07/12/19 21:43 Blood Pressure 104/56 L 07/12/19 20:00 O2 Sat by Pulse Oximetry (%) 97 07/12/19 21:45 Constitutional: Yes: No Distress Cardiovascular: Yes: Regular Rate and Rhythm, Tachycardia, S1, S2 Respiratory: Yes: Mechanically Ventilated Gastrointestinal: Yes: Normal Bowel Sounds, Soft Labs: CBC, BMP 07/12/19 06:00 07/12/19 06:00 INR, PTT INR 0.97 (0.83-1.09) 06/26/19 06:49 Assessment/Plan RESP FAILURE BILATERAL PNEUMONIA COVID-19+ S/P TOCILIZUMAB, PLASMA FEVER +BC SCN CONTINUE VENTILATORY SUPPORT VANCOMYCIN/ ERTAPENEM AIRBORNE PRECAUTIONS
[2019-07-13] MEDS: TOPIRAMATE 200 MG TABLET PO SCH ×3 (05:28→21:06)
[2019-07-13] MEDS: PROPOFOL 1,000,000 MCG/100 ML VIAL IVPB SCH ×2 (05:29→18:25)
[2019-07-13 06:45] LABS: ARTERIAL BLD GAS O2 SATURATION 98 % (95-98); ARTERIAL BLOOD GAS BASE EXCESS 5.1 mmol/L (-2-2); ARTERIAL BLOOD GAS PCO2 62.7 mmHg (35-45); ARTERIAL BLOOD GAS PO2 120.6 mmHg (80-100); ARTERIAL BLOOD GAS pH 7.33 (7.35-7.45)
[2019-07-13 07:13] LABS: MCH 29.7 pg (25.7-33.7); MCHC 32.4 g/dl (32.0-35.9); MEAN CELL VOLUME 91.8 fl (80-96); MEAN PLT VOLUME 9.7 fl (7.5-11.1); PLATELET COUNT 135 K/MM3 (134-434); RDW 18.2 % (11.9-15.9); WHITE BLOOD COUNT 5.9 K/mm3 (4.0-10.0)
[2019-07-13 07:38] LABS: ALBUMIN 2.1 g/dl (3.4-5.0); BILIRUBIN,TOTAL 0.6 mg/dL (0.2-1); BLOOD UREA NITROGEN 11.8 mg/dL (7-18); CALCIUM 7.8 mg/dL (8.5-10.1); CREATININE 0.2 mg/dL (0.55-1.3); MAGNESIUM 1.9 mg/dL (1.8-2.4); POTASSIUM 3.2 mmol/L (3.5-5.1); TOT PROT 4.8 g/dl (6.4-8.2)
[2019-07-13] MEDS: AMINO ACIDS/PROTEIN HYDROLYS 30 ML LIQUID.PKT PO SCH ×2 (08:45→18:26)
[2019-07-13] MEDS: ENOXAPARIN NA (PORCINE) 80 MG/0.8 ML DISP.SYRIN SQ SCH ×2 (08:47→20:12)
[2019-07-13] MEDS ORDERED: CASPOFUNGIN ACETATE 70 MG in SODIUM CHLORIDE 250 ML IVPB ONE (10:00)
[2019-07-13] MEDS: ZINC SULFATE 220 MG CAPSULE (FP) PO SCH ×2 (10:09→21:06)
[2019-07-13] MEDS: ERTAPENEM SODIUM 1 GM in SODIUM CHLORIDE 50 ML IVPB SCH (10:09)
[2019-07-13] MEDS: levETIRAcetam 500 MG/5 ML INJECTION VIAL IVPB SCH ×2 (10:09→21:06)
[2019-07-13] MEDS: PHENobarbital 20 MG/5 ML UNIT-DOSE CUP GT SCH ×2 (10:10→21:06)
[2019-07-13] MEDS: VANCOMYCIN HCL 1,500 MG in DEXTROSE 5%-WATER - 500 ML IVPB SCH (10:10)
[2019-07-13] MEDS: PANTOPRAZOLE SODIUM 40 MG VIAL IVPUSH SCH (10:10)
[2019-07-13] MEDS: CHOLECALCIFEROL (VIT D3) 400 UNIT (10 MCG) TABLET PO SCH (10:11)
[2019-07-13] MEDS: ASCORBIC ACID 500 MG TABLET (FP) PO SCH (10:11)
[2019-07-13] MEDS: Lacosamide 200 MG/20 ML VIAL IVPB SCH ×2 (10:11→21:06)
--- NOTE | 2019-07-13 13:08 | PN ---
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 (short form) - Note 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: remains intubated febrile over the weekend- now with yeast in his blood culture Vital Signs Period Temp Pulse Resp BP Sys/Ortiz Pulse Ox Last 24 Hr 97.5 F-101.9 F 73-103 16-24 95-132/50-86 97-97 cor-rrr lungs decreased bs at bases abd softnt ext petar mario CBC, BMP 07/13/19 05:45 07/13/19 05:45 Microbiology 07/12/19 06:00 Sputum - Endotrachea Suction/Ventilator Sputum Culture - Preliminary 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 07/12/19 10:55 Blood - Peripheral Venous Blood Culture - Preliminary NO GROWTH OBTAINED AFTER 24 HOURS, INCUBATION TO CONTINUE FOR 4 DAYS. 07/12/19 11:04 Blood - Peripheral Venous Blood Culture - Preliminary Pending Organism 07/01/19 18:15 Blood - Peripheral Venous Blood Culture - Final NO GROWTH AFTER 5 DAYS INCUBATION 06/29/19 12:30 Blood - Peripheral Venous Blood Culture - Final Staphylococcus Epidermidis 06/30/19 17:15 Sputum - Endotrachea Suction/Ventilator Gram Stain - Final 06/30/19 17:15 Sputum - Endotrachea Suction/Ventilator Sputum Culture - Final Escherichia Coli Esbl Grinder Set Up Operator Internal 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 06/28/19 09:00 Blood - Peripheral Venous Blood Culture - Final Staphylococcus Epidermidis 06/28/19 12:50 Sputum - Endotrachea Suction/Ventilator Gram Stain - Final 06/28/19 12:50 Sputum - Endotrachea Suction/Ventilator Sputum Culture - Final 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 Staphylococcus Aureus 06/25/19 13:40 Blood - Peripheral Venous Blood Culture - Final NO GROWTH AFTER 5 DAYS INCUBATION 06/25/19 13:20 Blood - Peripheral Venous Blood Culture - Final NO GROWTH AFTER 5 DAYS INCUBATION 06/28/19 12:51 Urine - Urine Caceres Urine Culture - Final NO GROWTH OBTAINED 06/22/19 13:00 Blood - Peripheral Venous Blood Culture - Final Staphylococcus Warneri 06/22/19 13:00 Blood - Peripheral Venous Blood Culture - Final Staphylococcus Epidermidis 06/24/19 00:01 Urine - Urine Caceres Urine Culture - Final NO GROWTH OBTAINED 06/24/19 00:01 Urine For Antigen Detection Legionella Antigen - Final 06/24/19 00:01 Urine For Antigen Detection Streptococcus pneumoniae Antigen (M - Final cxray improved aeration imp/reccd fungemia- start cancidas, change central line, repeat blood cultures in am hypoxemic resp failure bilateral infiltrates - ertapenem day #11 for ecoli esbl sputum, covid 19 positive staph epi bacteremia- day #14/ vancomycin s/p line change 06/29 s/p convalescent plasma s/p tocilizumab d/w icu resident d/c ertapenem and vancomycin continue cancidas change central line Problem List - Problems (1) Suspected COVID-19 virus infection Code(s): R68.89 - OTHER GENERAL SYMPTOMS AND SIGNS (2) Acute respiratory failure with hypoxia Code(s): J96.01 - ACUTE RESPIRATORY FAILURE WITH HYPOXIA (3) Bacteremia Code(s): R78.81 - BACTEREMIA
[2019-07-13] MEDS ORDERED: POTASSIUM CHLORIDE ORAL LIQUID 20 MEQ/15 ML PO ONE (13:13)
--- NOTE | 2019-07-13 13:13 | PN ---
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 (short form) - Note 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: Patient seen and examined in the ICU. Remains intubated and sedated. AC Mode of vent. NE for hemodynamic support. PPlat : 33 Intake & Output 07/10/19 07/11/19 07/12/19 07/13/19 23:59 23:59 23:59 23:59 Intake Total 4033 5222.3 3061 576 Output Total 4975 4550 2425 800 Balance -942 672.3 636 -224 Last Vital Signs Temp Pulse Resp BP Pulse Ox 97.9 F 73 20 96/50 L 97 07/13/19 10:00 07/13/19 10:00 07/13/19 11:54 07/13/19 10:00 07/12/19 21:45 Active Medications Acetaminophen (Tylenol Oral Solution -) 650 mg PO Q6H PRN PRN Reason: FEVER Last Admin: 07/12/19 17:30 Dose: 650 mg Documented by: Amino Acids (Prosource No Carb Liquid Pkt) 30 ml PO BID@0800,1730 [facility] Last Admin: 07/13/19 08:45 Dose: 30 ml Documented by: Ascorbic Acid (Vitamin C -) 500 mg PO DAILY [facility] Last Admin: 07/13/19 10:11 Dose: 500 mg Documented by: Chlorhexidine Gluconate (Hibiclens For Decolonization -) 1 applic TP HS [facility] Last Admin: 07/12/19 21:31 Dose: 1 applic Documented by: Cholecalciferol (Vitamin D3 -) 800 unit PO DAILY [facility] Last Admin: 07/13/19 10:11 Dose: 800 unit Documented by: Enoxaparin Sodium (Lovenox -) 80 mg SQ Q12H [facility] Last Admin: 07/13/19 08:47 Dose: 80 mg Documented by: Propofol (Diprivan -) 1,000,000 mcg in 100 mls @ 2.313 mls/hr IVPB TITR [facility]; Protocol Last Admin: 07/13/19 05:29 Dose: 35 mcg/kg/min, 16.193 mls/hr Documented by: Morphine Sulfate (Morphine 100mg/100ml-0.9% Nacl) 100 mg in 100 mls @ 1 mls/hr IVPB TITR [facility]; Protocol Last Admin: 07/12/19 21:40 Dose: 10 mg/hr, 10 mls/hr Documented by: Norepinephrine Bitartrate (Levophed Bag) 16,000 mcg in 500 mls @ 9.375 mls/hr IVPB TITR [facility]; Protocol Lacosamide (Vimpat Injection -) 200 mg IVPB BID [facility] Last Admin: 07/13/19 10:11 Dose: 200 mg Documented by: Levetiracetam (Keppra Injection -) 1,000 mg IVPB BID [facility] Last Admin: 07/13/19 10:09 Dose: 1,000 mg Documented by: Pantoprazole Sodium (Protonix Iv) 40 mg IVPUSH DAILY [facility] Last Admin: 07/13/19 10:10 Dose: 40 mg Documented by: Phenobarbital (Phenobarbital Liquid -) 60 mg GT BID [facility] Last Admin: 07/13/19 10:10 Dose: 60 mg Documented by: Topiramate (Topamax -) 200 mg PO TID [facility] Last Admin: 07/13/19 05:28 Dose: 200 mg Documented by: Zinc Sulfate (Orazinc -) 220 mg PO BID [facility] Last Admin: 07/13/19 10:09 Dose: 220 mg Documented by: Gen: Intubated and sedated HEENT: clear sclera CV:Regular Rate and Rhythm Lung: Vented, few scattered rhonchi GI: Soft, ND Ext: WWP, + edema Neuro: Sedated Laboratory Results - last 24 hr 07/13/19 07/13/19 07/13/19 05:45 05:45 06:00 WBC 5.9 RBC 3.70 L Hgb 11.0 L Hct 34.0 L MCV 91.8 MCH 29.7 MCHC 32.4 RDW 18.2 H Plt Count 135 D MPV 9.7 Anticoagulation Therapy No Result Required. Puncture Site Arterial line ABG pH 7.33 L ABG pCO2 at Pt Temp 62.7 H ABG pO2 at Pt Temp 120.6 H ABG HCO3 32.5 H ABG O2 Sat (Measured) 98 ABG O2 Content No Result Required. ABG Base Excess 5.1 H Yousuf Test Not applicable Patient On Oxygen Yes O2 Delivery Device Vent Oxygen Flow Rate 60% Vent Mode A/c Vent Rate 20 Mechanical Rate Yes PEEP 10.0 Pressure Support Vent 360 Sodium 143 Potassium 3.2 L Chloride 104 Carbon Dioxide 34 H Anion Gap 5 L BUN 11.8 Creatinine 0.2 L Est GFR (CKD-EPI)AfAm 233.83 Est GFR (CKD-EPI)NonAf 201.75 Random Glucose 110 H Calcium 7.8 L Magnesium 1.9 Total Bilirubin 0.6 AST 44 H ALT 51 Alkaline Phosphatase 92 Total Protein 4.8 L Albumin 2.1 L ASSESS: Acute Respiratory Failure due to ARDS due to COVID19 infection Developmental delay Seizures Fungemia EColi ESBL PNA Staph Epi Bacteremia PLAN: AC Mode of vent ABX per ID Change TLC Replete lytes Zinc Vitamin C Full AC PPI for GI ppx Enteral feeds Home seizure medications Requires ICU monitoring Dr Callaway Critical care time spent in reviewing chart, evaluating patient and formulating plan - 36 minutes.
--- NOTE | 2019-07-13 16:04 | PROC ---
Central Line Insertion Indication: Vasopressor Risks and Benefits Explained: No (intubated. Line changed) Central Line: Triple Lumen Catheter Anesthesia: other (sedated on prop) Sterile Technique: Yes Ultrasound Guided Assistance: Yes Position: Left Internal Jugular Post Insertion: Yes: Bilateral Breath Sounds, Bilateral Chest Expansion, Chest X-Ray Ordered Sterile Dressing Applied: Yes
[2019-07-13] MEDS: KCL 10 MEQ IVPB 10 MEQ/100 ML INFUS.BAG IVPB SCH ×3 (18:08→21:05)
[2019-07-13] MEDS: MORPHINE SULFATE/0.9% NACL/PF 100 MG/100 ML BAG IVPB SCH ×2 (20:12→21:05)
[2019-07-13] MEDS: CHLORHEXIDINE GLUCONATE 4% CLEANSER FOR DECOLONIZATION TP SCH (21:05)
[2019-07-13] MEDS: NOREPINEPHRINE D5W PREMIX 16,000 MCG/500 ML BAG IVPB SCH (21:05)
[2019-07-14] MEDS: MORPHINE SULFATE/0.9% NACL/PF 100 MG/100 ML BAG IVPB SCH ×2 (04:30→20:36)
[2019-07-14] MEDS: NOREPINEPHRINE D5W PREMIX 16,000 MCG/500 ML BAG IVPB SCH ×2 (06:03→06:04)
[2019-07-14] MEDS: TOPIRAMATE 200 MG TABLET PO SCH ×3 (06:04→21:36)
[2019-07-14] MEDS: AMINO ACIDS/PROTEIN HYDROLYS 30 ML LIQUID.PKT PO SCH ×2 (07:48→17:49)
[2019-07-14] MEDS: ENOXAPARIN NA (PORCINE) 80 MG/0.8 ML DISP.SYRIN SQ SCH ×2 (07:48→20:35)
[2019-07-14] MEDS: ZINC SULFATE 220 MG CAPSULE (FP) PO SCH ×2 (09:05→21:36)
[2019-07-14] MEDS: PHENobarbital 20 MG/5 ML UNIT-DOSE CUP GT SCH ×2 (09:05→21:36)
[2019-07-14] MEDS: ASCORBIC ACID 500 MG TABLET (FP) PO SCH (09:06)
[2019-07-14] MEDS: CHOLECALCIFEROL (VIT D3) 400 UNIT (10 MCG) TABLET PO SCH (09:06)
[2019-07-14] MEDS: PANTOPRAZOLE SODIUM 40 MG VIAL IVPUSH SCH (09:08)
[2019-07-14] MEDS: levETIRAcetam 500 MG/5 ML INJECTION VIAL IVPB SCH ×2 (09:08→21:36)
[2019-07-14] MEDS: Lacosamide 200 MG/20 ML VIAL IVPB SCH ×2 (09:09→21:36)
[2019-07-14] MEDS: CASPOFUNGIN ACETATE 50 MG in SODIUM CHLORIDE 250 ML IVPB SCH (10:01)
[2019-07-14] MEDS ORDERED: MAGNESIUM SULF 50% (8.12 MEQ/2 ML-1 GM VIAL) IVPB ONE (12:43)
[2019-07-14] MEDS: KCL 10 MEQ IVPB 10 MEQ/100 ML INFUS.BAG IVPB SCH ×3 (13:53→17:49)
--- NOTE | 2019-07-14 14:13 | PN ---
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 (short form) - Note 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: remains intubated afebrile blood culture repeated today central line changed yesterday Vital Signs Period Temp Pulse Resp BP Sys/Ortiz Pulse Ox Last 24 Hr 97.1 F-98.8 F 63-95 20-48 93-109/43-62 90-99 cor-rrr lungs decreased bs at bases abd soft,nt ext no edema +anthony CBC, BMP 07/13/19 05:45 07/13/19 05:45 cxray improved aeration Microbiology 07/12/19 11:04 Blood - Peripheral Venous Blood Culture - Final 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 07/12/19 11:04 Blood - Peripheral Venous Yeast/Fungus Identification - Preliminary 07/12/19 10:55 Blood - Peripheral Venous Blood Culture - Preliminary NO GROWTH OBTAINED AFTER 48 HOURS, INCUBATION TO CONTINUE FOR 3 DAYS. 07/12/19 06:00 Sputum - Endotrachea Suction/Ventilator Gram Stain - Final 07/12/19 06:00 Sputum - Endotrachea Suction/Ventilator Sputum Culture - Preliminary 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 Presumptive Mrsa (Pbp2a Pos) 07/01/19 18:15 Blood - Peripheral Venous Blood Culture - Final NO GROWTH AFTER 5 DAYS INCUBATION 06/29/19 12:30 Blood - Peripheral Venous Blood Culture - Final Staphylococcus Epidermidis 06/30/19 17:15 Sputum - Endotrachea Suction/Ventilator Gram Stain - Final 06/30/19 17:15 Sputum - Endotrachea Suction/Ventilator Sputum Culture - Final Escherichia Coli Esbl Manager User Interface 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 06/28/19 09:00 Blood - Peripheral Venous Blood Culture - Final Staphylococcus Epidermidis 06/28/19 12:50 Sputum - Endotrachea Suction/Ventilator Gram Stain - Final 06/28/19 12:50 Sputum - Endotrachea Suction/Ventilator Sputum Culture - Final 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 Staphylococcus Aureus 06/25/19 13:40 Blood - Peripheral Venous Blood Culture - Final NO GROWTH AFTER 5 DAYS INCUBATION 06/25/19 13:20 Blood - Peripheral Venous Blood Culture - Final NO GROWTH AFTER 5 DAYS INCUBATION 06/28/19 12:51 Urine - Urine Anthony Urine Culture - Final NO GROWTH OBTAINED 06/22/19 13:00 Blood - Peripheral Venous Blood Culture - Final Staphylococcus Warneri 06/22/19 13:00 Blood - Peripheral Venous Blood Culture - Final Staphylococcus Epidermidis 06/24/19 00:01 Urine - Urine Anthony Urine Culture - Final NO GROWTH OBTAINED 06/24/19 00:01 Urine For Antigen Detection Legionella Antigen - Final 06/24/19 00:01 Urine For Antigen Detection Streptococcus pneumoniae Antigen (M - Final imp/reccd fungemia- continue cancidas day #2 central line changed, repeat blood culture sent from [facility] today hypoxemic resp failure covid 19 positive staph epi bacteremia-s/p day #14/14 vancomycin-d/nhung yesterday s/p convalescent plasma s/p tocilizumab MRSA isolation for sputum culture- suspect colonization as he is stable on the vent Problem List - Problems (1) Suspected COVID-19 virus infection Code(s): R68.89 - OTHER GENERAL SYMPTOMS AND SIGNS (2) Acute respiratory failure with hypoxia Code(s): J96.01 - ACUTE RESPIRATORY FAILURE WITH HYPOXIA (3) Bacteremia Code(s): R78.81 - BACTEREMIA
[2019-07-14] MEDS: PROPOFOL 1,000,000 MCG/100 ML VIAL IVPB SCH ×2 (14:40→20:36)
--- NOTE | 2019-07-14 18:21 | CONSULT ---
Consult Consult Specialty:: Nephrology Reason for Consultation:: hypernatremia and hypokalemia - History of Present Illness Chief Complaint: initially presented with shortness of breath History of Present Illness: Pt is a 38 year old male with pmhx of epilepsy and developmental delay who initially presented with shortness of breath. He was fond to have covid. He was intubated and has been in the ICU. He was found to have hypernatremia and hypokalemia. I was called to assess him for electrolyte imbalance. He remains in the ICU and remains intubated. He is currently getting tube feeds. He did respond to free water with feeds. Chart was reviewed. 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 - Alcohol/Substance Use Hx Alcohol Use: No - Smoking History Smoking history: Never smoked Have you smoked in the past 12 months: No Home Medications - Allergies Allergies/Adverse Reactions: Allergies Allergy/AdvReac Type Severity Reaction Status Date / Time No Known Allergies Allergy Verified 06/22/19 12:24 - Home Medications Home Medications: Ambulatory Orders Topiramate [Topamax -] 200 mg PO TID #90 tablet 06/10/18 Lacosamide [Vimpat] 200 mg PO BID #60 tablet MDD 2 06/11/18 Phenobarbital - 60 mg PO BID #120 tablet MDD 4 06/11/18 levETIRAcetam [Keppra -] 1,000 mg PO BID 06/22/19 Family Medical History Family History: Unable to Obtain Review of Systems Unable to obtain ROS, reason: intubated Physical Exam Vital Signs: Vital Signs Temperature 97.3 F L 07/14/19 16:00 Pulse Rate 82 07/14/19 16:00 Respiratory Rate 20 07/14/19 16:05 Blood Pressure 97/58 L 07/14/19 16:00 O2 Sat by Pulse Oximetry (%) 100 07/14/19 16:00 Constitutional: Yes: Calm Neck: Yes: Supple Cardiovascular: Yes: S1, S2 Respiratory: Yes: Mechanically Ventilated Gastrointestinal: Yes: Soft Renal/: Yes: Caceres Present Musculoskeletal: Yes: Muscle Weakness Integumentary: Yes: WNL Neurological: Yes: Lethargy Labs: CBC, BMP 07/13/19 05:45 07/13/19 05:45 Microbiology 07/12/19 11:04 Blood - Peripheral Venous Blood Culture - Final 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 07/12/19 11:04 Blood - Peripheral Venous Yeast/Fungus Identification - Preliminary Imaging - Results Chest X-ray: Report Reviewed Problem List - Problems (1) Hypernatremia Code(s): E87.0 - HYPEROSMOLALITY AND HYPERNATREMIA (2) Hypokalemia Code(s): E87.6 - HYPOKALEMIA (3) Acute respiratory failure with hypoxia Code(s): J96.01 - ACUTE RESPIRATORY FAILURE WITH HYPOXIA (4) Bacteremia Code(s): R78.81 - BACTEREMIA Assessment/Plan Current Medications Generic Name Dose Route Start Last Admin Trade Name Freq PRN Reason Stop Dose Admin Acetaminophen 650 mg 07/11/19 11:56 07/12/19 17:30 Tylenol Oral Solution - PO 650 mg Q6H PRN Administration FEVER Amino Acids 30 ml 07/06/19 17:30 07/14/19 17:49 Prosource No Carb Liquid Pkt PO 30 ml BID@0800,1730 [facility] Administration Ascorbic Acid 500 mg 07/08/19 11:00 07/14/19 09:06 Vitamin C - PO 500 mg DAILY [facility] Administration Chlorhexidine Gluconate 1 applic 06/22/19 22:00 07/13/19 21:05 Hibiclens For Decolonization - TP 1 applic HS [facility] Administration Cholecalciferol 800 unit 07/03/19 16:00 07/14/19 09:06 Vitamin D3 - PO 800 unit DAILY [facility] Administration Enoxaparin Sodium 80 mg 07/05/19 08:00 07/14/19 07:48 Lovenox - SQ 80 mg Q12H [facility] Administration Propofol 1,000,000 mcg in 100 mls @ 2.313 mls/hr 06/22/19 14:00 07/14/19 14:40 Diprivan - IVPB 35 mcg/kg/min TITR [facility] 16.193 mls/hr Administration Protocol 5 MCG/KG/MIN Morphine Sulfate 100 mg in 100 mls @ 1 mls/hr 06/22/19 21:30 07/14/19 04:30 Morphine 100mg/100ml-0.9% Nacl IVPB 10 mg/hr TITR [facility] 10 mls/hr Administration Protocol 1 MG/HR Norepinephrine Bitartrate 16,000 mcg in 500 mls @ 9.375 mls/hr 07/12/19 00:15 07/14/19 06:04 Levophed Bag IVPB Not Given TITR [facility] Protocol 5 MCG/MIN Caspofungin 50 mg/ Sodium 250 mls @ 250 mls/hr 07/14/19 10:00 07/14/19 10:01 Chloride IVPB 250 mls/hr Q24H [facility] Administration Lacosamide 200 mg 06/23/19 10:00 07/14/19 09:09 Vimpat Injection - IVPB 200 mg BID [facility] Administration Levetiracetam 1,000 mg 06/23/19 10:00 07/14/19 09:08 Keppra Injection - IVPB 1,000 mg BID [facility] Administration Pantoprazole Sodium 40 mg 06/24/19 10:00 07/14/19 09:08 Protonix Iv IVPUSH 40 mg DAILY [facility] Administration Phenobarbital 60 mg 06/28/19 10:00 07/14/19 09:05 Phenobarbital Liquid - GT 60 mg BID [facility] Administration Topiramate 200 mg 06/23/19 14:00 07/14/19 14:41 Topamax - PO 200 mg TID [facility] Administration Zinc Sulfate 220 mg 06/23/19 22:00 07/14/19 09:05 Orazinc - PO 220 mg BID [facility] Administration Impression 1. hypokalemia 2. hypernatremia 3. resp failure 4. fungemia 5. covid 19 infection 6. ards 7. developemental delay 8. epilepsy 9. bactermia Plan - sodium improved - cont current tube feeds - replace potassium - monitor lytes closely - discussed with ICU team - check mag and phos levels as well
[2019-07-14] MEDS: CHLORHEXIDINE GLUCONATE 4% CLEANSER FOR DECOLONIZATION TP SCH (21:36)
[2019-07-15] MEDS: NOREPINEPHRINE D5W PREMIX 16,000 MCG/500 ML BAG IVPB SCH (04:28)
[2019-07-15] MEDS: PROPOFOL 1,000,000 MCG/100 ML VIAL IVPB SCH ×2 (04:28→18:52)
[2019-07-15] MEDS: TOPIRAMATE 200 MG TABLET PO SCH ×3 (06:05→22:00)
[2019-07-15 07:42] LABS: ALBUMIN 2.1 g/dl (3.4-5.0); BILIRUBIN,TOTAL 0.5 mg/dL (0.2-1); BLOOD UREA NITROGEN 12.3 mg/dL (7-18); CREATININE 0.2 mg/dL (0.55-1.3); MAGNESIUM 1.8 mg/dL (1.8-2.4); PHOSPHOROUS 4.2 mg/dL (2.5-4.9); POTASSIUM 3.2 mmol/L (3.5-5.1); TOT PROT 4.6 g/dl (6.4-8.2)
[2019-07-15] MEDS: ENOXAPARIN NA (PORCINE) 80 MG/0.8 ML DISP.SYRIN SQ SCH ×2 (08:05→21:00)
[2019-07-15] MEDS: AMINO ACIDS/PROTEIN HYDROLYS 30 ML LIQUID.PKT PO SCH ×2 (08:05→18:52)
[2019-07-15] MEDS: CHOLECALCIFEROL (VIT D3) 400 UNIT (10 MCG) TABLET PO SCH (09:33)
[2019-07-15] MEDS: ZINC SULFATE 220 MG CAPSULE (FP) PO SCH ×2 (09:33→22:00)
[2019-07-15] MEDS: PHENobarbital 20 MG/5 ML UNIT-DOSE CUP GT SCH ×2 (09:33→22:00)
[2019-07-15] MEDS: PANTOPRAZOLE SODIUM 40 MG VIAL IVPUSH SCH (09:33)
[2019-07-15] MEDS: ASCORBIC ACID 500 MG TABLET (FP) PO SCH (09:33)
[2019-07-15] MEDS: Lacosamide 200 MG/20 ML VIAL IVPB SCH ×2 (09:33→22:00)
[2019-07-15] MEDS: levETIRAcetam 500 MG/5 ML INJECTION VIAL IVPB SCH ×2 (09:33→22:00)
[2019-07-15] MEDS: CASPOFUNGIN ACETATE 50 MG in SODIUM CHLORIDE 250 ML IVPB SCH (09:34)
[2019-07-15] MEDS ORDERED: POTASSIUM CHLORIDE ORAL LIQUID 20 MEQ/15 ML PO ONE ×2 (10:22→11:06)
--- NOTE | 2019-07-15 11:08 | PN ---
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 (short form) - Note 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: Patient seen and examined in the ICU. Remains intubated and sedated. AC Mode of vent. Off NE for hemodynamic support. PPlat : 35 Intake & Output 07/12/19 07/13/19 07/14/19 07/15/19 23:59 23:59 23:59 23:59 Intake Total 3061 576 3962 1240 Output Total 2425 1550 1600 750 Balance 636 -974 2362 490 Last Vital Signs Temp Pulse Resp BP Pulse Ox 97 F L 96 H 49 H 102/66 99 07/15/19 08:00 07/15/19 10:00 07/15/19 10:00 07/15/19 10:00 07/14/19 20:42 Active Medications Acetaminophen (Tylenol Oral Solution -) 650 mg PO Q6H PRN PRN Reason: FEVER Last Admin: 07/12/19 17:30 Dose: 650 mg Documented by: Amino Acids (Prosource No Carb Liquid Pkt) 30 ml PO BID@0800,1730 [facility] Last Admin: 07/15/19 08:05 Dose: 30 ml Documented by: Ascorbic Acid (Vitamin C -) 500 mg PO DAILY [facility] Last Admin: 07/15/19 09:33 Dose: 500 mg Documented by: Chlorhexidine Gluconate (Hibiclens For Decolonization -) 1 applic TP HS [facility] Last Admin: 07/14/19 21:36 Dose: 1 applic Documented by: Cholecalciferol (Vitamin D3 -) 800 unit PO DAILY [facility] Last Admin: 07/15/19 09:33 Dose: 800 unit Documented by: Enoxaparin Sodium (Lovenox -) 80 mg SQ Q12H [facility] Last Admin: 07/15/19 08:05 Dose: 80 mg Documented by: Propofol (Diprivan -) 1,000,000 mcg in 100 mls @ 2.313 mls/hr IVPB TITR [facility]; Protocol Last Admin: 07/15/19 04:28 Dose: 35 mcg/kg/min, 16.193 mls/hr Documented by: Morphine Sulfate (Morphine 100mg/100ml-0.9% Nacl) 100 mg in 100 mls @ 1 mls/hr IVPB TITR [facility]; Protocol Last Admin: 07/14/19 20:36 Dose: 10 mg/hr, 10 mls/hr Documented by: Caspofungin 50 mg/ Sodium (Chloride) 250 mls @ 250 mls/hr IVPB Q24H [facility] Last Admin: 07/15/19 09:34 Dose: 250 mls/hr Documented by: Potassium Chloride (Potassium Chloride 10 Meq Premix Ivpb -) 10 meq in 100 mls @ 100 mls/hr IVPB Q60M [facility] Stop: 07/15/19 13:29 Lacosamide (Vimpat Injection -) 200 mg IVPB BID [facility] Last Admin: 07/15/19 09:33 Dose: 200 mg Documented by: Levetiracetam (Keppra Injection -) 1,000 mg IVPB BID [facility] Last Admin: 07/15/19 09:33 Dose: 1,000 mg Documented by: Pantoprazole Sodium (Protonix Iv) 40 mg IVPUSH DAILY [facility] Last Admin: 07/15/19 09:33 Dose: 40 mg Documented by: Phenobarbital (Phenobarbital Liquid -) 60 mg GT BID [facility] Last Admin: 07/15/19 09:33 Dose: 60 mg Documented by: Potassium Chloride (Potassium Chloride Oral Liquid) 40 meq PO ONCE ONE Stop: 07/15/19 11:07 Topiramate (Topamax -) 200 mg PO TID [facility] Last Admin: 07/15/19 06:05 Dose: 200 mg Documented by: Zinc Sulfate (Orazinc -) 220 mg PO BID [facility] Last Admin: 07/15/19 09:33 Dose: 220 mg Documented by: Gen: Intubated and sedated HEENT: clear sclera CV:Regular Rate and Rhythm Lung: Vented, few scattered rhonchi GI: Soft, ND Ext: WWP, + edema Neuro: Sedated Laboratory Results - last 24 hr 07/15/19 05:30 Sodium 145 Potassium 3.2 L Chloride 109 H Carbon Dioxide 32 Anion Gap 4 L BUN 12.3 Creatinine 0.2 L Est GFR (CKD-EPI)AfAm 233.83 Est GFR (CKD-EPI)NonAf 201.75 Random Glucose 113 H Calcium 8.0 L Phosphorus 4.2 Magnesium 1.8 Total Bilirubin 0.5 AST 77 H ALT 95 H Alkaline Phosphatase 107 Total Protein 4.6 L Albumin 2.1 L ASSESS: Acute Respiratory Failure due to ARDS due to COVID19 infection Developmental delay Seizures Fungemia EColi ESBL PNA Staph Epi Bacteremia PLAN: AC Mode of vent ABX per ID Replete lytes Zinc Vitamin C Full AC PPI for GI ppx Enteral feeds Home seizure medications Requires ICU monitoring Dr Callaway Critical care time spent in reviewing chart, evaluating patient and formulating plan - 36 minutes.
[2019-07-15] MEDS: KCL 10 MEQ IVPB 10 MEQ/100 ML INFUS.BAG IVPB SCH ×3 (11:30→14:55)
--- NOTE | 2019-07-15 17:00 | PN ---
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, Physician History of Present Illness: Pt seen and examined at bedside. No great change in status. - Current Medication List Current Medications: Active Medications Acetaminophen (Tylenol Oral Solution -) 650 mg PO Q6H PRN PRN Reason: FEVER Last Admin: 07/12/19 17:30 Dose: 650 mg Documented by: Amino Acids (Prosource No Carb Liquid Pkt) 30 ml PO BID@0800,1730 [facility] Last Admin: 07/15/19 08:05 Dose: 30 ml Documented by: Ascorbic Acid (Vitamin C -) 500 mg PO DAILY [facility] Last Admin: 07/15/19 09:33 Dose: 500 mg Documented by: Chlorhexidine Gluconate (Hibiclens For Decolonization -) 1 applic TP HS [facility] Last Admin: 07/14/19 21:36 Dose: 1 applic Documented by: Cholecalciferol (Vitamin D3 -) 800 unit PO DAILY [facility] Last Admin: 07/15/19 09:33 Dose: 800 unit Documented by: Enoxaparin Sodium (Lovenox -) 80 mg SQ Q12H [facility] Last Admin: 07/15/19 08:05 Dose: 80 mg Documented by: Propofol (Diprivan -) 1,000,000 mcg in 100 mls @ 2.313 mls/hr IVPB TITR [facility]; Protocol Last Admin: 07/15/19 04:28 Dose: 35 mcg/kg/min, 16.193 mls/hr Documented by: Morphine Sulfate (Morphine 100mg/100ml-0.9% Nacl) 100 mg in 100 mls @ 1 mls/hr IVPB TITR [facility]; Protocol Last Admin: 07/14/19 20:36 Dose: 10 mg/hr, 10 mls/hr Documented by: Caspofungin 50 mg/ Sodium (Chloride) 250 mls @ 250 mls/hr IVPB Q24H [facility] Last Admin: 07/15/19 09:34 Dose: 250 mls/hr Documented by: Lacosamide (Vimpat Injection -) 200 mg IVPB BID [facility] Last Admin: 07/15/19 09:33 Dose: 200 mg Documented by: Levetiracetam (Keppra Injection -) 1,000 mg IVPB BID [facility] Last Admin: 07/15/19 09:33 Dose: 1,000 mg Documented by: Pantoprazole Sodium (Protonix Iv) 40 mg IVPUSH DAILY [facility] Last Admin: 07/15/19 09:33 Dose: 40 mg Documented by: Phenobarbital (Phenobarbital Liquid -) 60 mg GT BID [facility] Last Admin: 07/15/19 09:33 Dose: 60 mg Documented by: Topiramate (Topamax -) 200 mg PO TID [facility] Last Admin: 07/15/19 16:14 Dose: 200 mg Documented by: Zinc Sulfate (Orazinc -) 220 mg PO BID [facility] Last Admin: 07/15/19 09:33 Dose: 220 mg Documented by: - Objective Vital Signs: Vital Signs Temperature 99.2 F 07/15/19 16:00 Pulse Rate 97 H 07/15/19 16:00 Respiratory Rate 49 H 07/15/19 16:00 Blood Pressure 100/60 07/15/19 16:00 O2 Sat by Pulse Oximetry (%) 97 07/15/19 16:00 Constitutional: Yes: Calm Eyes: Yes: Conjunctiva Clear HENT: Yes: Atraumatic Neck: Yes: Supple Cardiovascular: Yes: S1, S2 Respiratory: Yes: Mechanically Ventilated Gastrointestinal: Yes: Soft Genitourinary: Yes: Caceres Present Musculoskeletal: Yes: Muscle Weakness Edema: No Neurological: Yes: Lethargy Labs: CBC, BMP 07/13/19 05:45 07/15/19 05:30 INR, PTT INR 0.97 (0.83-1.09) 06/26/19 06:49 Problem List - Problems (1) Hypernatremia Code(s): E87.0 - HYPEROSMOLALITY AND HYPERNATREMIA (2) Hypokalemia Code(s): E87.6 - HYPOKALEMIA (3) Acute respiratory failure with hypoxia Code(s): J96.01 - ACUTE RESPIRATORY FAILURE WITH HYPOXIA (4) Bacteremia Code(s): R78.81 - BACTEREMIA Assessment/Plan Current Medications Generic Name Dose Route Start Last Admin Trade Name Freq PRN Reason Stop Dose Admin Acetaminophen 650 mg 07/11/19 11:56 07/12/19 17:30 Tylenol Oral Solution - PO 650 mg Q6H PRN Administration FEVER Amino Acids 30 ml 07/06/19 17:30 07/15/19 08:05 Prosource No Carb Liquid Pkt PO 30 ml BID@0800,1730 [facility] Administration Ascorbic Acid 500 mg 07/08/19 11:00 07/15/19 09:33 Vitamin C - PO 500 mg DAILY [facility] Administration Chlorhexidine Gluconate 1 applic 06/22/19 22:00 07/14/19 21:36 Hibiclens For Decolonization - TP 1 applic HS [facility] Administration Cholecalciferol 800 unit 07/03/19 16:00 07/15/19 09:33 Vitamin D3 - PO 800 unit DAILY [facility] Administration Enoxaparin Sodium 80 mg 07/05/19 08:00 07/15/19 08:05 Lovenox - SQ 80 mg Q12H [facility] Administration Propofol 1,000,000 mcg in 100 mls @ 2.313 mls/hr 06/22/19 14:00 07/15/19 04:28 Diprivan - IVPB 35 mcg/kg/min TITR [facility] 16.193 mls/hr Administration Protocol 5 MCG/KG/MIN Morphine Sulfate 100 mg in 100 mls @ 1 mls/hr 06/22/19 21:30 07/14/19 20:36 Morphine 100mg/100ml-0.9% Nacl IVPB 10 mg/hr TITR [facility] 10 mls/hr Administration Protocol 1 MG/HR Caspofungin 50 mg/ Sodium 250 mls @ 250 mls/hr 07/14/19 10:00 07/15/19 09:34 Chloride IVPB 250 mls/hr Q24H [facility] Administration Lacosamide 200 mg 06/23/19 10:00 07/15/19 09:33 Vimpat Injection - IVPB 200 mg BID [facility] Administration Levetiracetam 1,000 mg 06/23/19 10:00 07/15/19 09:33 Keppra Injection - IVPB 1,000 mg BID [facility] Administration Pantoprazole Sodium 40 mg 06/24/19 10:00 07/15/19 09:33 Protonix Iv IVPUSH 40 mg DAILY [facility] Administration Phenobarbital 60 mg 06/28/19 10:00 07/15/19 09:33 Phenobarbital Liquid - GT 60 mg BID [facility] Administration Topiramate 200 mg 06/23/19 14:00 07/15/19 16:14 Topamax - PO 200 mg TID [facility] Administration Zinc Sulfate 220 mg 06/23/19 22:00 07/15/19 09:33 Orazinc - PO 220 mg BID [facility] Administration Laboratory Tests 07/15/19 05:30 Phosphorus 4.2 Magnesium 1.8 Impression 1. hypokalemia 2. hypernatremia 3. resp failure 4. fungemia 5. covid 19 infection 6. ards 7. developemental delay 8. epilepsy 9. bactermia Plan - replace potassium - cont feeds - cont free water with feeds - monitor lytes - vent likely causing increased insensible losses
[2019-07-15] MEDS: MORPHINE SULFATE/0.9% NACL/PF 100 MG/100 ML BAG IVPB SCH (21:30)
[2019-07-15] MEDS: MIDAZOLAM 100 MG/100 ML MG IVPB SCH (22:00)
[2019-07-15] MEDS: CHLORHEXIDINE GLUCONATE 4% CLEANSER FOR DECOLONIZATION TP SCH (22:00)
[2019-07-15] MEDS ORDERED: MIDAZOLAM 100MG/100ML DRIP - DO NOT USE FOR BILLING ONE (22:19)
[2019-07-15] MEDS ORDERED: MIDAZOLAM HCL 5 MG/1 ML Single Dose Vial IVPUSH ONE (22:39)
[2019-07-15] MEDS ORDERED: ACETAMINOPHEN 1000 MG/100 ML VIAL (NON FORMULARY) IVPB ONE (22:52)
[2019-07-15] MEDS ORDERED: AMIODARONE IN DEXTROSE,ISO-OSM 360 MG/200 ML BAG ONE (22:55)
[2019-07-16] MEDS ORDERED: VECURONIUM BROMIDE 50 MG/50 ML VIAL IVPUSH ONE (00:46)
[2019-07-16] MEDS ORDERED: VECURONIUM BROMIDE 10 MG/10 ML VIAL ONE (01:01)
[2019-07-16] MEDS ORDERED: LACTATED RINGERS SOLUTION 1000 ML INFUS.BAG IV ONE (01:48)
[2019-07-16] MEDS ORDERED: VECURONIUM BROMIDE 100 MG/100 ML BAG IVPB SCH (02:45)
[2019-07-16] MEDS ORDERED: NOREPINEPHRINE BITARTRATE 4 MG/4 ML ML IV ONE (02:49)
[2019-07-16] MEDS ORDERED: NOREPINEPHRINE D5W PREMIX 16,000 MCG/500 ML BAG IVPB SCH (03:00)
[2019-07-16] MEDS ORDERED: MIDAZOLAM 100MG/100ML DRIP - DO NOT USE FOR BILLING ONE ×3 (05:16→22:09)
[2019-07-16 08:00] LABS: CALCIUM 7.6 mg/dL (8.5-10.1); CREATININE 0.3 mg/dL (0.55-1.3); POTASSIUM 3.3 mmol/L (3.5-5.1)
[2019-07-16] MEDS ORDERED: POTASSIUM CHLORIDE ORAL LIQUID 20 MEQ/15 ML PO ONE (09:00)
[2019-07-16] MEDS ORDERED: PT OWN MED DRAWER 7, Y5N ONE ×3 (09:06→22:11)
[2019-07-16] MEDS: Lacosamide 200 MG/20 ML VIAL IVPB SCH ×2 (09:17→22:15)
[2019-07-16] MEDS: levETIRAcetam 500 MG/5 ML INJECTION VIAL IVPB SCH ×2 (09:17→22:14)
[2019-07-16] MEDS: PHENobarbital 20 MG/5 ML UNIT-DOSE CUP GT SCH ×2 (09:17→22:14)
[2019-07-16] MEDS: PANTOPRAZOLE SODIUM 40 MG VIAL IVPUSH SCH (09:17)
[2019-07-16] MEDS: CASPOFUNGIN ACETATE 50 MG in SODIUM CHLORIDE 250 ML IVPB SCH (09:17)
[2019-07-16] MEDS: AMINO ACIDS/PROTEIN HYDROLYS 30 ML LIQUID.PKT PO SCH ×2 (09:17→17:10)
[2019-07-16] MEDS: ZINC SULFATE 220 MG CAPSULE (FP) PO SCH ×2 (09:17→22:13)
[2019-07-16] MEDS: ENOXAPARIN NA (PORCINE) 80 MG/0.8 ML DISP.SYRIN SQ SCH ×2 (09:17→22:13)
[2019-07-16] MEDS: ASCORBIC ACID 500 MG TABLET (FP) PO SCH (09:18)
[2019-07-16] MEDS: CHOLECALCIFEROL (VIT D3) 400 UNIT (10 MCG) TABLET PO SCH (09:18)
[2019-07-16] MEDS ORDERED: VANCOMYCIN HCL 1,500 MG in DEXTROSE 5%-WATER - 500 ML IVPB ONE (10:50)
[2019-07-16] MEDS ORDERED: VANCOMYCIN HCL 1,500 MG in DEXTROSE 5%-WATER - 250 ML IVPB SCH (11:00)
[2019-07-16] MEDS ORDERED: FUROSEMIDE 40 MG/4 ML INJECTABLE VIAL IVPUSH ONE (11:31)
[2019-07-16] MEDS ORDERED: DEXTROSE 5%-WATER 100 ML IVPB ONE ×2 (11:34→16:23)
[2019-07-16] MEDS ORDERED: MEROPENEM 1 GM VIAL (RESTRICTED TO ID) IVPB ONE ×2 (11:34→16:23)
[2019-07-16] MEDS: KCL 10 MEQ IVPB 10 MEQ/100 ML INFUS.BAG IVPB SCH ×3 (11:50→15:09)
[2019-07-16] MEDS: VANCOMYCIN HCL 1,500 MG in DEXTROSE 5%-WATER - 500 ML IVPB SCH ×2 (11:50→22:15)
[2019-07-16] MEDS: MEROPENEM 1 GM in DEXTROSE 5%-WATER 100 ML IVPB SCH ×2 (11:50→17:10)
[2019-07-16 11:53] LABS: BASO % 0.5 % (0-2.0); EOS % 2.9 % (0-4.5); HEMATOCRIT 39.2 % (35.4-49); HEMOGLOBIN 12.6 GM/dL (11.7-16.9); LYMPH % 8.5 % (8-40); MCH 29.8 pg (25.7-33.7); MEAN CELL VOLUME 93.2 fl (80-96); MEAN PLT VOLUME 10.6 fl (7.5-11.1); MONO % 5.2 % (3.8-10.2); NEUT % 82.9 % (42.8-82.8); PLATELET COUNT 126 K/MM3 (134-434); RBC 4.21 M/mm3 (4.00-5.60); RDW 19.9 % (11.9-15.9); WHITE BLOOD COUNT 18.4 K/mm3 (4.0-10.0)
--- NOTE | 2019-07-16 12:15 | PN ---
Teaching Attending Note Name of Resident: Miguel Taylor ATTENDING PHYSICIAN STATEMENT I saw and evaluated the patient. I reviewed the resident's note and discussed the case with the resident. I agree with the resident's findings and plan as documented. SUBJECTIVE: Pt seen and examined in the ICU. Remains intubated, sedated. Febrile and resta rted on pressors overnight. Oxygen requirements increased. OBJECTIVE: Vital Signs Period Temp Pulse Resp BP Sys/Ortiz Pulse Ox Last 24 Hr 99.2 F-102.8 F 97-136 20-49 92-126/50-73 90-100 Intake & Output 07/13/19 07/14/19 07/15/19 07/16/19 23:59 23:59 23:59 23:59 Intake Total 576 3962 2594.4 1889 Output Total 1550 1600 1650 1000 Balance -974 2362 944.4 889 Weight 87.1 kg Gen: intubated, sedated Heart: RRR Lung: scattered rhonchi Abd: soft, nontender Ext: no edema CBC, BMP 07/16/19 05:30 07/16/19 05:30 ABG Results ABG pH 7.33 (7.35-7.45) L 07/13/19 06:00 ABG pCO2 at Pt Temp 62.7 mmHg (35-45) H 07/13/19 06:00 ABG pO2 at Pt Temp 120.6 mmHg (80-100) H 07/13/19 06:00 ABG HCO3 32.5 mmol/L (22-27) H 07/13/19 06:00 ABG O2 Sat (Measured) 98 % (95-98) 07/13/19 06:00 ABG O2 Content No Result Required. 07/13/19 06:00 ABG Base Excess 5.1 mmol/L (-2-2) H 07/13/19 06:00 Active Medications Acetaminophen (Ofirmev Injection -) 1,000 mg IVPB Q6H PRN PRN Reason: FEVER Amino Acids (Prosource No Carb Liquid Pkt) 30 ml PO BID@0800,1730 [facility] Last Admin: 07/16/19 09:17 Dose: 30 ml Documented by: Ascorbic Acid (Vitamin C -) 500 mg PO DAILY [facility] Last Admin: 07/16/19 09:18 Dose: 500 mg Documented by: Chlorhexidine Gluconate (Hibiclens For Decolonization -) 1 applic TP HS [facility] Last Admin: 07/15/19 22:00 Dose: 1 applic Documented by: Cholecalciferol (Vitamin D3 -) 800 unit PO DAILY [facility] Last Admin: 07/16/19 09:18 Dose: 800 unit Documented by: Enoxaparin Sodium (Lovenox -) 80 mg SQ Q12H [facility] Last Admin: 07/16/19 09:17 Dose: 80 mg Documented by: Propofol (Diprivan -) 1,000,000 mcg in 100 mls @ 2.313 mls/hr IVPB TITR [facility]; Protocol Last Titration: 07/16/19 06:43 Dose: 55 mcg/kg/min, 25.447 mls/hr Documented by: Morphine Sulfate (Morphine 100mg/100ml-0.9% Nacl) 100 mg in 100 mls @ 1 mls/hr IVPB TITR [facility]; Protocol Last Infusion: 07/16/19 09:40 Dose: 5 mg/hr, 5 mls/hr Documented by: Caspofungin 50 mg/ Sodium (Chloride) 250 mls @ 250 mls/hr IVPB Q24H [facility] Last Admin: 07/16/19 09:17 Dose: 250 mls/hr Documented by: Midazolam HCl (Versed -) 100 mg in 100 mls @ 1 mls/hr IVPB TITR [facility]; Protocol Last Admin: 07/15/19 22:00 Dose: 10 mg/hr, 10 mls/hr Documented by: Norepinephrine Bitartrate (Levophed Bag) 16,000 mcg in 500 mls @ 9.375 mls/hr IVPB TITR [facility]; Protocol Last Titration: 07/16/19 06:42 Dose: 8 mcg/min, 15 mls/hr Documented by: Meropenem 1 gm/ Dextrose 100 mls @ 200 mls/hr IVPB Q8H-IV [facility] Last Admin: 07/16/19 11:50 Dose: 200 mls/hr Documented by: Vancomycin HCl 1,500 mg/ (Dextrose) 500 mls @ 125 mls/hr IVPB Q12H [facility]; Protocol Last Admin: 07/16/19 11:50 Dose: 125 mls/hr Documented by: Lacosamide (Vimpat Injection -) 200 mg IVPB BID [facility] Last Admin: 07/16/19 09:17 Dose: 200 mg Documented by: Levetiracetam (Keppra Injection -) 1,000 mg IVPB BID [facility] Last Admin: 07/16/19 09:17 Dose: 1,000 mg Documented by: Pantoprazole Sodium (Protonix Iv) 40 mg IVPUSH DAILY [facility] Last Admin: 07/16/19 09:17 Dose: 40 mg Documented by: Phenobarbital (Phenobarbital Liquid -) 60 mg GT BID [facility] Last Admin: 07/16/19 09:17 Dose: 60 mg Documented by: Topiramate (Topamax -) 200 mg PO TID [facility] Last Admin: 07/15/19 22:00 Dose: 200 mg Documented by: Zinc Sulfate (Orazinc -) 220 mg PO BID [facility] Last Admin: 07/16/19 09:17 Dose: 220 mg Documented by: ASSESSMENT AND PLAN: Acute Hypoxic and Hypercapneic Respiratory Failure COVID19 Pneumonia E Coli Pneumonia Fungenmia Bacteremia Septic Shock Seizure Disorder Mental Retardation - continue antibiotics, antifungals - reculture - titrate pressors to maintain MAP >65 - free water replacement - continue antiepileptics - low tidal volume ventilation - titrate FiO2, PEEP to keep SpO2 >90% - sedate for vent synchrony - enteral feeds - DVT/GI prophylaxis - continue ICU monitoring critical care time spent in reviewing chart, evaluating patient and formulating plan 35 min
--- NOTE | 2019-07-16 12:48 | PN ---
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 (short form) - Note 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: remains intubated transferred to ICU fever overnight blood cultures repeated on pressors, increasing oxygen demand- now fi02 100% Vital Signs Period Temp Pulse Resp BP Sys/Ortiz Pulse Ox Last 24 Hr 99.2 F-102.8 F 97-136 20-49 92-126/50-73 90-100 cor-rrr llungs decreased bs at bases abd soft,nt ext no edema CBC, BMP 07/16/19 05:30 07/16/19 05:30 worsening cxray micro reviewed imp/reccd recurrent fevers with worsening cxray- vanco/meropenem- history of MRSA and ESBL organsism send sputum cultures as well as blood culture gentamicn one dose fungemia- continue cancidas day #3 central line changed, repeat blood culture sent and negative hypoxemic resp failure covid 19 positive s/p convalescent plasma s/p tocilizumab MRSA isolation for sputum culture- esbl isolation over 35 minutes spent in the care of this critically ill 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
--- NOTE | 2019-07-16 12:54 | PN ---
Physical Exam: SUBJECTIVE: Patient seen and examined OBJECTIVE: Vital Signs Period Temp Pulse Resp BP Sys/Ortiz Pulse Ox Last 24 Hr 99.2 F-102.8 F 97-136 20-49 92-126/50-73 90-100 GENERAL: sedated and unresponsive to voice HEAD: Normal with no signs of trauma. EYES: sclera anicteric, conjunctiva clear ENT: ETT in place. NECK: Trachea midline, full range of motion, supple. LUNGS: See attending note for complete exam. HEART: Regular rate and rhythm. ABDOMEN: Soft, nontender, nondistended, no guarding, no rebound, no hepatosplenomegaly, no masses. SKIN: Warm, dry, normal turgor, no rashes or lesions noted Laboratory Results - last 24 hr 07/16/19 07/16/19 05:30 05:30 WBC 18.4 H RBC 4.21 Hgb 12.6 Hct 39.2 D MCV 93.2 MCH 29.8 MCHC 32.0 RDW 19.9 H Plt Count 126 L MPV 10.6 Absolute Neuts (auto) 15.3 H Neutrophils % 82.9 H Lymphocytes % 8.5 D Monocytes % 5.2 Eosinophils % 2.9 D Basophils % 0.5 Nucleated RBC % 0 Sodium 147 H Potassium 3.3 L Chloride 111 H Carbon Dioxide 29 Anion Gap 7 L BUN 10.0 Creatinine 0.3 L Est GFR (CKD-EPI)AfAm 197.93 Est GFR (CKD-EPI)NonAf 170.78 Random Glucose 108 H Calcium 7.6 L Active Medications Generic Name Dose Route Start Last Admin Trade Name Freq PRN Reason Stop Dose Admin Acetaminophen 1,000 mg 07/16/19 06:09 Ofirmev Injection - IVPB Q6H PRN FEVER Amino Acids 30 ml 07/06/19 17:30 07/16/19 09:17 Prosource No Carb Liquid Pkt PO 30 ml BID@0800,1730 [facility] Administration Ascorbic Acid 500 mg 07/08/19 11:00 07/16/19 09:18 Vitamin C - PO 500 mg DAILY [facility] Administration Chlorhexidine Gluconate 1 applic 06/22/19 22:00 07/15/19 22:00 Hibiclens For Decolonization - TP 1 applic HS [facility] Administration Cholecalciferol 800 unit 07/03/19 16:00 07/16/19 09:18 Vitamin D3 - PO 800 unit DAILY [facility] Administration Enoxaparin Sodium 80 mg 07/05/19 08:00 07/16/19 09:17 Lovenox - SQ 80 mg Q12H [facility] Administration Propofol 1,000,000 mcg in 100 mls @ 2.313 mls/hr 06/22/19 14:00 07/16/19 06:43 Diprivan - IVPB 55 mcg/kg/min TITR [facility] 25.447 mls/hr Titration Protocol 5 MCG/KG/MIN Morphine Sulfate 100 mg in 100 mls @ 1 mls/hr 06/22/19 21:30 07/16/19 09:40 Morphine 100mg/100ml-0.9% Nacl IVPB 5 mg/hr TITR [facility] 5 mls/hr Infusion Protocol 1 MG/HR Caspofungin 50 mg/ Sodium 250 mls @ 250 mls/hr 07/14/19 10:00 07/16/19 09:17 Chloride IVPB 250 mls/hr Q24H [facility] Administration Midazolam HCl 100 mg in 100 mls @ 1 mls/hr 07/15/19 22:15 07/15/19 22:00 Versed - IVPB 10 mg/hr TITR [facility] 10 mls/hr Administration Protocol 1 MG/HR Norepinephrine Bitartrate 16,000 mcg in 500 mls @ 9.375 mls/hr 07/16/19 03:00 07/16/19 06:42 Levophed Bag IVPB 8 mcg/min TITR [facility] 15 mls/hr Titration Protocol 5 MCG/MIN Meropenem 1 gm/ Dextrose 100 mls @ 200 mls/hr 07/16/19 11:00 07/16/19 11:50 IVPB 200 mls/hr Q8H-IV [facility] Administration Vancomycin HCl 1,500 mg/ 500 mls @ 125 mls/hr 07/16/19 11:06 07/16/19 11:50 Dextrose IVPB 125 mls/hr Q12H [facility] Administration Protocol Lacosamide 200 mg 06/23/19 10:00 07/16/19 09:17 Vimpat Injection - IVPB 200 mg BID [facility] Administration Levetiracetam 1,000 mg 06/23/19 10:00 07/16/19 09:17 Keppra Injection - IVPB 1,000 mg BID [facility] Administration Pantoprazole Sodium 40 mg 06/24/19 10:00 07/16/19 09:17 Protonix Iv IVPUSH 40 mg DAILY [facility] Administration Phenobarbital 60 mg 06/28/19 10:00 07/16/19 09:17 Phenobarbital Liquid - GT 60 mg BID [facility] Administration Topiramate 200 mg 06/23/19 14:00 07/15/19 22:00 Topamax - PO 200 mg TID [facility] Administration Zinc Sulfate 220 mg 06/23/19 22:00 07/16/19 09:17 Orazinc - PO 220 mg BID [facility] Administration ASSESSMENT/PLAN: Kumar Hurtado is a 38M with H MR and epilepsy who presented to ED initially with SOB and hypoxia requiring intubation, admitted to hospital for hypoxic respiratory failure due to covid-19. Overnight febrile to 100.9F. Increased FiO2 from 60 to 80%. Overbreathing vent, more heavily sedated and placed on vecuronium drip. CXR shows worsening consolidation. UOP good. WBC elevation despite 14 day course of vancomycin, known fungemia, still on caspofungin. NEURO #post-intubation sedation - continue midazolam, propofol, and morphine - wean as tolerated with RASS goal 0-1 - CTM mental status #epilepsy - continue Keppra, Topamax, and phenobarbitol - Ativan 2mg PRN for breakthrough PULM #hypoxic respiratory failure 2/2 covid-19 - intubated - AC 20/260/5/100% - wean FIO2 with goal SpO2 >90% - discontinued vecuronium drip - s/p vancomycin, Zosyn, Plaquenil, convalescent plasma, and Actrema CARDIO - CTM VS - not on pressors ID #fungemia - yeast present in blood and sputum cultures - continue caspofungin - Dr. Bravo following #MRSA - completed 14 day course vancomycin - held per ID recommendation FEN #diet - continue tube feeds Vital 1.2 with free water #electrolytes - replete PRN PPX #DVT - SQ Lovenox 40mg BID #stress ulcer - Protonix 40mg QD LTD - LIJ TLC placed 07/13 (day 2) DISPO - ICU - Full Code Visit type - Emergency Visit Emergency Visit: No - New Patient This patient is new to me today: Yes Date on this admission: 07/16/19 - Critical Care Critical Care patient: Yes Total Critical Care Time (in minutes): 35 Critical Care Statement: The care of this patient involved high complexity decision making to prevent further life threatening deterioration of the patient's condition and/or to evaluate & treat vital organ system(s) failure or risk of failure. ATTENDING PHYSICIAN STATEMENT I saw and evaluated the patient. I reviewed the resident's note and discussed the case with the resident. I agree with the resident's findings and plan as documented. SUBJECTIVE: OBJECTIVE: ASSESSMENT AND PLAN:
[2019-07-16] MEDS ORDERED: GENTAMICIN INJECTION 180 MG in SODIUM CHLORIDE 100 ML IVPB ONE (13:00)
[2019-07-16 14:54] LABS: ANISOCYTOSIS 0; MACROCYTOSIS 0; PLATELET ESTIMATE DECREASED
[2019-07-16] MEDS: PROPOFOL 1,000,000 MCG/100 ML VIAL IVPB SCH (14:58)
[2019-07-16] MEDS: TOPIRAMATE 200 MG TABLET PO SCH ×3 (16:21→22:52)
--- NOTE | 2019-07-16 18:41 | PN ---
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, Physician History of Present Illness: Pt seen and examined at bedside. He is in the ICU. He remains intubated. - Current Medication List Current Medications: Active Medications Acetaminophen (Ofirmev Injection -) 1,000 mg IVPB Q6H PRN PRN Reason: FEVER Amino Acids (Prosource No Carb Liquid Pkt) 30 ml PO BID@0800,1730 [facility] Last Admin: 07/16/19 17:10 Dose: 30 ml Documented by: Ascorbic Acid (Vitamin C -) 500 mg PO DAILY [facility] Last Admin: 07/16/19 09:18 Dose: 500 mg Documented by: Chlorhexidine Gluconate (Hibiclens For Decolonization -) 1 applic TP HS [facility] Last Admin: 07/15/19 22:00 Dose: 1 applic Documented by: Cholecalciferol (Vitamin D3 -) 800 unit PO DAILY [facility] Last Admin: 07/16/19 09:18 Dose: 800 unit Documented by: Enoxaparin Sodium (Lovenox -) 80 mg SQ Q12H [facility] Last Admin: 07/16/19 09:17 Dose: 80 mg Documented by: Propofol (Diprivan -) 1,000,000 mcg in 100 mls @ 2.313 mls/hr IVPB TITR [facility]; Protocol Last Admin: 07/16/19 14:58 Dose: 50 mcg/kg/min, 23.133 mls/hr Documented by: Morphine Sulfate (Morphine 100mg/100ml-0.9% Nacl) 100 mg in 100 mls @ 1 mls/hr IVPB TITR [facility]; Protocol Last Infusion: 07/16/19 09:40 Dose: 5 mg/hr, 5 mls/hr Documented by: Caspofungin 50 mg/ Sodium (Chloride) 250 mls @ 250 mls/hr IVPB Q24H [facility] Last Admin: 07/16/19 09:17 Dose: 250 mls/hr Documented by: Midazolam HCl (Versed -) 100 mg in 100 mls @ 1 mls/hr IVPB TITR [facility]; Protocol Last Admin: 07/15/19 22:00 Dose: 10 mg/hr, 10 mls/hr Documented by: Norepinephrine Bitartrate (Levophed Bag) 16,000 mcg in 500 mls @ 9.375 mls/hr IVPB TITR [facility]; Protocol Last Titration: 07/16/19 06:42 Dose: 8 mcg/min, 15 mls/hr Documented by: Meropenem 1 gm/ Dextrose 100 mls @ 200 mls/hr IVPB Q8H-IV [facility] Last Admin: 07/16/19 17:10 Dose: 200 mls/hr Documented by: Vancomycin HCl 1,500 mg/ (Dextrose) 500 mls @ 125 mls/hr IVPB Q12H [facility]; Protocol Last Admin: 07/16/19 11:50 Dose: 125 mls/hr Documented by: Lacosamide (Vimpat Injection -) 200 mg IVPB BID [facility] Last Admin: 07/16/19 09:17 Dose: 200 mg Documented by: Levetiracetam (Keppra Injection -) 1,000 mg IVPB BID [facility] Last Admin: 07/16/19 09:17 Dose: 1,000 mg Documented by: Pantoprazole Sodium (Protonix Iv) 40 mg IVPUSH DAILY [facility] Last Admin: 07/16/19 09:17 Dose: 40 mg Documented by: Phenobarbital (Phenobarbital Liquid -) 60 mg GT BID [facility] Last Admin: 07/16/19 09:17 Dose: 60 mg Documented by: Topiramate (Topamax -) 200 mg PO TID [facility] Last Admin: 07/16/19 16:21 Dose: 200 mg Documented by: Zinc Sulfate (Orazinc -) 220 mg PO BID [facility] Last Admin: 07/16/19 09:17 Dose: 220 mg Documented by: - Objective Vital Signs: Vital Signs Temperature 100 F H 07/16/19 18:00 Pulse Rate 116 H 07/16/19 18:00 Respiratory Rate 20 07/16/19 18:00 Blood Pressure 104/49 L 07/16/19 18:00 O2 Sat by Pulse Oximetry (%) 97 07/16/19 16:35 Constitutional: Yes: Calm Eyes: Yes: Conjunctiva Clear Cardiovascular: Yes: S1, S2 Respiratory: Yes: Mechanically Ventilated Gastrointestinal: Yes: Soft Genitourinary: Yes: Caceres Present Edema: Yes Edema: LLE: 1+, RLE: 1+ Neurological: Yes: Lethargy Labs: CBC, BMP 07/16/19 05:30 07/16/19 05:30 INR, PTT INR 0.97 (0.83-1.09) 06/26/19 06:49 - ....Imaging Chest X-ray: Report Reviewed Problem List - Problems (1) Hypernatremia Code(s): E87.0 - HYPEROSMOLALITY AND HYPERNATREMIA (2) Hypokalemia Code(s): E87.6 - HYPOKALEMIA (3) Acute respiratory failure with hypoxia Code(s): J96.01 - ACUTE RESPIRATORY FAILURE WITH HYPOXIA (4) Bacteremia Code(s): R78.81 - BACTEREMIA Assessment/Plan Current Medications Generic Name Dose Route Start Last Admin Trade Name Freq PRN Reason Stop Dose Admin Acetaminophen 1,000 mg 07/16/19 06:09 Ofirmev Injection - IVPB Q6H PRN FEVER Amino Acids 30 ml 07/06/19 17:30 07/16/19 17:10 Prosource No Carb Liquid Pkt PO 30 ml BID@0800,1730 [facility] Administration Ascorbic Acid 500 mg 07/08/19 11:00 07/16/19 09:18 Vitamin C - PO 500 mg DAILY [facility] Administration Chlorhexidine Gluconate 1 applic 06/22/19 22:00 07/15/19 22:00 Hibiclens For Decolonization - TP 1 applic HS [facility] Administration Cholecalciferol 800 unit 07/03/19 16:00 07/16/19 09:18 Vitamin D3 - PO 800 unit DAILY [facility] Administration Enoxaparin Sodium 80 mg 07/05/19 08:00 07/16/19 09:17 Lovenox - SQ 80 mg Q12H [facility] Administration Propofol 1,000,000 mcg in 100 mls @ 2.313 mls/hr 06/22/19 14:00 07/16/19 14:58 Diprivan - IVPB 50 mcg/kg/min TITR [facility] 23.133 mls/hr Administration Protocol 5 MCG/KG/MIN Morphine Sulfate 100 mg in 100 mls @ 1 mls/hr 06/22/19 21:30 07/16/19 09:40 Morphine 100mg/100ml-0.9% Nacl IVPB 5 mg/hr TITR [facility] 5 mls/hr Infusion Protocol 1 MG/HR Caspofungin 50 mg/ Sodium 250 mls @ 250 mls/hr 07/14/19 10:00 07/16/19 09:17 Chloride IVPB 250 mls/hr Q24H [facility] Administration Midazolam HCl 100 mg in 100 mls @ 1 mls/hr 07/15/19 22:15 07/15/19 22:00 Versed - IVPB 10 mg/hr TITR [facility] 10 mls/hr Administration Protocol 1 MG/HR Norepinephrine Bitartrate 16,000 mcg in 500 mls @ 9.375 mls/hr 07/16/19 03:00 07/16/19 06:42 Levophed Bag IVPB 8 mcg/min TITR [facility] 15 mls/hr Titration Protocol 5 MCG/MIN Meropenem 1 gm/ Dextrose 100 mls @ 200 mls/hr 07/16/19 11:00 07/16/19 17:10 IVPB 200 mls/hr Q8H-IV [facility] Administration Vancomycin HCl 1,500 mg/ 500 mls @ 125 mls/hr 07/16/19 11:06 07/16/19 11:50 Dextrose IVPB 125 mls/hr Q12H [facility] Administration Protocol Lacosamide 200 mg 06/23/19 10:00 07/16/19 09:17 Vimpat Injection - IVPB 200 mg BID [facility] Administration Levetiracetam 1,000 mg 06/23/19 10:00 07/16/19 09:17 Keppra Injection - IVPB 1,000 mg BID [facility] Administration Pantoprazole Sodium 40 mg 06/24/19 10:00 07/16/19 09:17 Protonix Iv IVPUSH 40 mg DAILY [facility] Administration Phenobarbital 60 mg 06/28/19 10:00 07/16/19 09:17 Phenobarbital Liquid - GT 60 mg BID [facility] Administration Topiramate 200 mg 06/23/19 14:00 07/16/19 16:21 Topamax - PO 200 mg TID [facility] Administration Zinc Sulfate 220 mg 06/23/19 22:00 07/16/19 09:17 Orazinc - PO 220 mg BID [facility] Administration Impression 1. hypokalemia 2. hypernatremia 3. resp failure 4. fungemia 5. covid 19 infection 6. ards 7. developemental delay 8. epilepsy 9. bactermia Plan - replace lytes - agree with lasix - replace potassium - free water with feeds - vent support - pt with increased oxygen requirements - vent likely causing increased insensible losses
[2019-07-16] MEDS: MIDAZOLAM 100 MG/100 ML MG IVPB SCH (22:13)
[2019-07-16] MEDS: CHLORHEXIDINE GLUCONATE 4% CLEANSER FOR DECOLONIZATION TP SCH (22:14)
[2019-07-17] MEDS ORDERED: MEROPENEM 1 GM VIAL (RESTRICTED TO ID) IVPB ONE ×2 (02:14→08:28)
[2019-07-17] MEDS ORDERED: DEXTROSE 5%-WATER 100 ML IVPB ONE ×2 (02:14→08:28)
[2019-07-17] MEDS: MEROPENEM 1 GM in DEXTROSE 5%-WATER 100 ML IVPB SCH ×3 (02:15→18:29)
[2019-07-17] MEDS: PROPOFOL 1,000,000 MCG/100 ML VIAL IVPB SCH ×3 (05:17→22:35)
[2019-07-17] MEDS: TOPIRAMATE 200 MG TABLET PO SCH ×3 (05:17→22:54)
[2019-07-17 06:51] LABS: ARTERIAL BLD GAS O2 SATURATION 91.1 % (95-98); ARTERIAL BLOOD GAS BASE EXCESS 0.1 mmol/L (-2-2); ARTERIAL BLOOD GAS PCO2 66.6 mmHg (35-45); ARTERIAL BLOOD GAS PO2 70.8 mmHg (80-100); ARTERIAL BLOOD GAS pH 7.25 (7.35-7.45)
[2019-07-17 06:56] LABS: EOS % 6.6 % (0-4.5); HEMATOCRIT 34.8 % (35.4-49); HEMOGLOBIN 11.2 GM/dL (11.7-16.9); LYMPH % 8.1 % (8-40); MCH 29.8 pg (25.7-33.7); MCHC 32.1 g/dl (32.0-35.9); MEAN CELL VOLUME 92.8 fl (80-96); MEAN PLT VOLUME 9.6 fl (7.5-11.1); MONO % 37.5 % (3.8-10.2); NEUT % 47.8 % (42.8-82.8); PLATELET COUNT 123 K/MM3 (134-434); RBC 3.75 M/mm3 (4.00-5.60); WHITE BLOOD COUNT 16.6 K/mm3 (4.0-10.0)
[2019-07-17 07:24] LABS: BILIRUBIN,TOTAL 0.3 mg/dL (0.2-1); CALCIUM 7.6 mg/dL (8.5-10.1); CREATININE 0.3 mg/dL (0.55-1.3); MAGNESIUM 1.9 mg/dL (1.8-2.4); PHOSPHOROUS 3.5 mg/dL (2.5-4.9); POTASSIUM 3.3 mmol/L (3.5-5.1); TOT PROT 4.6 g/dl (6.4-8.2)
[2019-07-17] MEDS ORDERED: PT OWN MED DRAWER 7, Y5N ONE ×5 (08:27→22:53)
[2019-07-17] MEDS: AMINO ACIDS/PROTEIN HYDROLYS 30 ML LIQUID.PKT PO SCH ×2 (08:56→18:29)
[2019-07-17] MEDS: ENOXAPARIN NA (PORCINE) 80 MG/0.8 ML DISP.SYRIN SQ SCH ×2 (08:56→22:36)
[2019-07-17] MEDS: KCL 10 MEQ IVPB 10 MEQ/100 ML INFUS.BAG IVPB SCH ×3 (09:08→12:00)
[2019-07-17] MEDS: ZINC SULFATE 220 MG CAPSULE (FP) PO SCH ×2 (09:09→22:36)
[2019-07-17] MEDS: PHENobarbital 20 MG/5 ML UNIT-DOSE CUP GT SCH ×2 (09:09→22:36)
[2019-07-17] MEDS: PANTOPRAZOLE SODIUM 40 MG VIAL IVPUSH SCH (09:11)
[2019-07-17] MEDS: Lacosamide 200 MG/20 ML VIAL IVPB SCH ×2 (09:16→22:37)
[2019-07-17] MEDS: ASCORBIC ACID 500 MG TABLET (FP) PO SCH (09:17)
[2019-07-17] MEDS: CHOLECALCIFEROL (VIT D3) 400 UNIT (10 MCG) TABLET PO SCH (09:17)
[2019-07-17] MEDS: levETIRAcetam 500 MG/5 ML INJECTION VIAL IVPB SCH ×2 (09:20→22:36)
[2019-07-17] MEDS: CASPOFUNGIN ACETATE 50 MG in SODIUM CHLORIDE 250 ML IVPB SCH (09:24)
[2019-07-17 09:55] LABS: ANISOCYTOSIS 0; MACROCYTOSIS 0; PLATELET ESTIMATE DECREASED; TEAR DROP CELLS 1+
--- NOTE | 2019-07-17 10:47 | PN ---
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 (short form) - Note 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: remains intubated transferred to ICU fever overnight blood cultures repeated on pressors, increasing oxygen demand- now fi02 100% Vital Signs Period Temp Pulse Resp BP Sys/Ortiz Pulse Ox Last 24 Hr 99.2 F-102.8 F 97-136 20-49 92-126/50-73 90-100 cor-rrr llungs decreased bs at bases abd soft,nt ext no edema CBC, BMP 07/16/19 05:30 07/16/19 05:30 worsening cxray-ards Microbiology 07/12/19 10:55 Blood - Peripheral Venous Blood Culture - Final NO GROWTH AFTER 5 DAYS INCUBATION 07/16/19 12:30 Sputum - Endotrachea Suction/Ventilator Sputum Culture - Preliminary Presumptive Mrsa (Pbp2a Pos) Lactose Fermenting Neg Bacilli 07/16/19 12:30 Urine - Urine - Catheterized Urine Culture - Final NO GROWTH OBTAINED 07/14/19 11:30 Blood - Peripheral Venous Blood Culture - Preliminary NO GROWTH OBTAINED AFTER 48 HOURS, INCUBATION TO CONTINUE FOR 3 DAYS. 07/15/19 12:25 Blood - Peripheral Venous Blood Culture - Preliminary NO GROWTH OBTAINED AFTER 24 HOURS, INCUBATION TO CONTINUE FOR 4 DAYS. 07/12/19 06:00 Sputum - Endotrachea Suction/Ventilator Gram Stain - Final 07/12/19 06:00 Sputum - Endotrachea Suction/Ventilator Sputum Culture - Final 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 Mr S Aureus 07/12/19 11:04 Blood - Peripheral Venous Blood Culture - Final 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 07/12/19 11:04 Blood - Peripheral Venous Yeast/Fungus Identification - Preliminary 07/01/19 18:15 Blood - Peripheral Venous Blood Culture - Final NO GROWTH AFTER 5 DAYS INCUBATION 06/29/19 12:30 Blood - Peripheral Venous Blood Culture - Final Staphylococcus Epidermidis 06/30/19 17:15 Sputum - Endotrachea Suction/Ventilator Gram Stain - Final 06/30/19 17:15 Sputum - Endotrachea Suction/Ventilator Sputum Culture - Final Escherichia Coli Esbl [employer]ing Machine Tender 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 06/28/19 09:00 Blood - Peripheral Venous Blood Culture - Final Staphylococcus Epidermidis 06/28/19 12:50 Sputum - Endotrachea Suction/Ventilator Gram Stain - Final 06/28/19 12:50 Sputum - Endotrachea Suction/Ventilator Sputum Culture - Final 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 Staphylococcus Aureus 06/25/19 13:40 Blood - Peripheral Venous Blood Culture - Final NO GROWTH AFTER 5 DAYS INCUBATION 06/25/19 13:20 Blood - Peripheral Venous Blood Culture - Final NO GROWTH AFTER 5 DAYS INCUBATION 06/28/19 12:51 Urine - Urine Caceres Urine Culture - Final NO GROWTH OBTAINED 06/22/19 13:00 Blood - Peripheral Venous Blood Culture - Final Staphylococcus Warneri 06/22/19 13:00 Blood - Peripheral Venous Blood Culture - Final Staphylococcus Epidermidis 06/24/19 00:01 Urine - Urine Caceres Urine Culture - Final NO GROWTH OBTAINED 06/24/19 00:01 Urine For Antigen Detection Legionella Antigen - Final 06/24/19 00:01 Urine For Antigen Detection Streptococcus pneumoniae Antigen (M - Final imp/reccd sepsis- history of MRSA and ESBL organsism continue vancomycin and meropenem check vancomycin trough fungemia- continue cancidas day #4 central line changed, repeat blood culture sent and negative hypoxemic resp failure covid 19 positive s/p convalescent plasma s/p tocilizumab MRSA isolation for sputum culture- esbl isolation overall prognosis is limited Problem List - Problems (1) Suspected COVID-19 virus infection Code(s): R68.89 - OTHER GENERAL SYMPTOMS AND SIGNS (2) Acute respiratory failure with hypoxia Code(s): J96.01 - ACUTE RESPIRATORY FAILURE WITH HYPOXIA (3) Bacteremia Code(s): R78.81 - BACTEREMIA
[2019-07-17] MEDS ORDERED: VECURONIUM BROMIDE 50 MG/50 ML VIAL IVPUSH ONE (11:15)
[2019-07-17] MEDS ORDERED: VECURONIUM BROMIDE 10 MG/10 ML VIAL ONE (11:31)
[2019-07-17] MEDS: VANCOMYCIN HCL 1,500 MG in DEXTROSE 5%-WATER - 500 ML IVPB SCH (11:31)
[2019-07-17] MEDS: VECURONIUM BROMIDE 100 MG/100 ML BAG IVPB SCH (11:31)
[2019-07-17 11:35] LABS: ARTERIAL BLOOD GAS pH 7.24 (7.35-7.45)
[2019-07-17 11:36] LABS: ARTERIAL BLD GAS O2 SATURATION 83.9 % (95-98); ARTERIAL BLOOD GAS BASE EXCESS 2.3 mmol/L (-2-2)
[2019-07-17] MEDS ORDERED: MIDAZOLAM IN 0.9 % SOD.CHLORID 1 MG/1 ML PLAST..BAG ONE ×2 (12:00→21:34)
--- NOTE | 2019-07-17 13:47 | PN ---
Physical Exam: SUBJECTIVE: Patient seen and examined. Still intubated and sedated. ABG reviewed, rate increased. Continue ICU monitoring. OBJECTIVE: Vital Signs Period Temp Pulse Resp BP Sys/Ortiz Pulse Ox Last 24 Hr 98.2 F-100.0 F 114-124 20-47 104-128/49-70 88-97 GENERAL: sedated, intubated HEAD: Normal with no signs of trauma. EYES: sclera anicteric, conjunctiva clear ENT: ETT in place NECK: Trachea midline LUNGS: vented breath sounds HEART: Tachycardic ABDOMEN: Soft, nontender, nondistended, no guarding, no rebound, no hepatosplenomegaly, no masses. SKIN: Warm, dry, normal turgor, no rashes or lesions noted Laboratory Results - last 24 hr 07/16/19 07/17/19 07/17/19 05:30 05:15 05:15 WBC 16.6 H RBC 3.75 L Hgb 11.2 L Hct 34.8 L MCV 92.8 MCH 29.8 MCHC 32.1 RDW 19.0 H Plt Count 123 L MPV 9.6 Absolute Neuts (auto) 7.9 Neutrophils % 47.8 D Neutrophils % (Manual) 29.2 L D 53.6 D Band Neutrophils % 53.9 16.5 Lymphocytes % 8.1 Lymphocytes % (Manual) 5.6 L D 4.1 L D Monocytes % 37.5 H D Monocytes % (Manual) 5 D 5 Eosinophils % 6.6 H D Eosinophils % (Manual) 2.3 D 12.4 H D Basophils % 0.0 Basophils % (Manual) 0.0 0.0 Myelocytes % (Man) 0 0 Promyelocytes % (Man) 0 0 Blast Cells % (Manual) 0 0 Nucleated RBC % 0 0 Metamyelocytes 3 H D 1 D Hypochromia 0 0 Platelet Estimate Decreased Decreased Polychromasia 0 1+ Anisocytosis 0 0 Microcytosis 0 0 Macrocytosis 0 0 Tear Drop Cells 1+ Anticoagulation Therapy Puncture Site ABG pH ABG pCO2 at Pt Temp ABG pO2 at Pt Temp ABG HCO3 ABG O2 Sat (Measured) ABG O2 Content ABG Base Excess Yousuf Test Patient On Oxygen O2 Delivery Device Oxygen Flow Rate Vent Mode Vent Rate Mechanical Rate PEEP Pressure Support Vent Sodium 148 H Potassium 3.3 L Chloride 112 H Carbon Dioxide 34 H Anion Gap 2 L BUN 8.0 Creatinine 0.3 L Est GFR (CKD-EPI)AfAm 197.93 Est GFR (CKD-EPI)NonAf 170.78 Random Glucose 127 H Calcium 7.6 L Phosphorus 3.5 Magnesium 1.9 Ferritin 99.8 Total Bilirubin 0.3 AST 44 H ALT 53 Alkaline Phosphatase 135 H LD Total 488 H C-Reactive Protein 13.5 H Total Protein 4.6 L Albumin 2.0 L 07/17/19 07/17/19 05:55 10:57 WBC RBC Hgb Hct MCV MCH MCHC RDW Plt Count MPV Absolute Neuts (auto) Neutrophils % Neutrophils % (Manual) Band Neutrophils % Lymphocytes % Lymphocytes % (Manual) Monocytes % Monocytes % (Manual) Eosinophils % Eosinophils % (Manual) Basophils % Basophils % (Manual) Myelocytes % (Man) Promyelocytes % (Man) Blast Cells % (Manual) Nucleated RBC % Metamyelocytes Hypochromia Platelet Estimate Polychromasia Anisocytosis Microcytosis Macrocytosis Tear Drop Cells Anticoagulation Therapy No Result Required. No Result Required. Puncture Site Arterial line Arterial line ABG pH 7.25 L 7.24 L ABG pCO2 at Pt Temp 66.6 H 76.0 H* ABG pO2 at Pt Temp 70.8 L 58.0 L ABG HCO3 28.6 H 31.6 H ABG O2 Sat (Measured) 91.1 L 83.9 L ABG O2 Content No Result Required. No Result Required. ABG Base Excess 0.1 2.3 H Yousuf Test Not applicable No Result Required. Patient On Oxygen Yes Yes O2 Delivery Device Vent Vent Oxygen Flow Rate 100% 100 Vent Mode A/c An Vent Rate 20 24 Mechanical Rate No Result Required. No Result Required. PEEP 5.0 5.0 Pressure Support Vent 360 360 Sodium Potassium Chloride Carbon Dioxide Anion Gap BUN Creatinine Est GFR (CKD-EPI)AfAm Est GFR (CKD-EPI)NonAf Random Glucose Calcium Phosphorus Magnesium Ferritin Total Bilirubin AST ALT Alkaline Phosphatase LD Total C-Reactive Protein Total Protein Albumin Active Medications Generic Name Dose Route Start Last Admin Trade Name Freq PRN Reason Stop Dose Admin Acetaminophen 1,000 mg 07/16/19 06:09 Ofirmev Injection - IVPB Q6H PRN FEVER Amino Acids 30 ml 07/06/19 17:30 07/17/19 08:56 Prosource No Carb Liquid Pkt PO 30 ml BID@0800,1730 [facility] Administration Ascorbic Acid 500 mg 07/08/19 11:00 07/17/19 09:17 Vitamin C - PO 500 mg DAILY [facility] Administration Chlorhexidine Gluconate 1 applic 06/22/19 22:00 07/16/19 22:14 Hibiclens For Decolonization - TP 1 applic HS [facility]I Administration Cholecalciferol 800 unit 07/03/19 16:00 07/17/19 09:17 Vitamin D3 - PO 800 unit DAILY [facility] Administration Enoxaparin Sodium 80 mg 07/05/19 08:00 07/17/19 08:56 Lovenox - SQ 80 mg Q12H [facility]I Administration Propofol 1,000,000 mcg in 100 mls @ 2.313 mls/hr 06/22/19 14:00 07/17/19 05:17 Diprivan - IVPB 40 mcg/kg/min TITR [facility] 18.507 mls/hr Administration Protocol 5 MCG/KG/MIN Morphine Sulfate 100 mg in 100 mls @ 1 mls/hr 06/22/19 21:30 07/16/19 16:00 Morphine 100mg/100ml-0.9% Nacl IVPB 2 mg/hr TITR [facility] 2 mls/hr Infusion Protocol 1 MG/HR Caspofungin 50 mg/ Sodium 250 mls @ 250 mls/hr 07/14/19 10:00 07/17/19 09:24 Chloride IVPB 250 mls/hr Q24H [facility] Administration Midazolam HCl 100 mg in 100 mls @ 1 mls/hr 07/15/19 22:15 07/16/19 22:13 Versed - IVPB 10 mg/hr TITR [facility] 10 mls/hr Administration Protocol 1 MG/HR Norepinephrine Bitartrate 16,000 mcg in 500 mls @ 9.375 mls/hr 07/16/19 03:00 07/16/19 18:52 Levophed Bag IVPB 5 mcg/min TITR [facility] 9.375 mls/hr Titration Protocol 5 MCG/MIN Meropenem 1 gm/ Dextrose 100 mls @ 200 mls/hr 07/16/19 11:00 07/17/19 09:09 IVPB 200 mls/hr Q8H-IV [facility]I Administration Vancomycin HCl 1,500 mg/ 500 mls @ 125 mls/hr 07/16/19 11:06 07/17/19 11:31 Dextrose IVPB 125 mls/hr Q12H [facility] Administration Protocol Vecuronium Sneads 100 mg in 100 mls @ 5.226 mls/hr 07/17/19 11:15 07/17/19 11:31 Vecuronium Sneads IVPB 1 mcg/kg/min TITR [facility] 5.226 mls/hr Administration Protocol 1 MCG/KG/MIN Lacosamide 200 mg 06/23/19 10:00 07/17/19 09:16 Vimpat Injection - IVPB 200 mg BID [facility] Administration Levetiracetam 1,000 mg 06/23/19 10:00 07/17/19 09:20 Keppra Injection - IVPB 1,000 mg BID TIKI Administration Pantoprazole Sodium 40 mg 06/24/19 10:00 07/17/19 09:11 Protonix Iv IVPUSH 40 mg DAILY [facility]I Administration Phenobarbital 60 mg 06/28/19 10:00 07/17/19 09:09 Phenobarbital Liquid - GT 60 mg BID [facility] Administration Topiramate 200 mg 06/23/19 14:00 07/17/19 05:17 Topamax - PO 200 mg TID [facility]I Administration Zinc Sulfate 220 mg 06/23/19 22:00 07/17/19 09:09 Orazinc - PO 220 mg BID [facility]I Administration ASSESSMENT/PLAN: Kumar Hurtado is a 38M with PMH MR and epilepsy who presented to ED initially with SOB and hypoxia requiring intubation, admitted to hospital for hy poxic respiratory failure due to covid-19. #Neuro - continue midazolam, propofol, and morphine - wean as tolerated with RASS goal 0-1 - CTM mental status - continue Keppra, Topamax, and phenobarbitol - Ativan 2mg PRN for breakthrough #Pulm - hypoxic respiratory failure 2/2 covid-9 - intubated - increased rate to 24 as most recent ABG showed decreased pH and CO2 retention - vecuronium drip restarted - s/p vancomycin, Zosyn, Plaquenil, convalescent plasma, and Actrema #Cardio - CTM VS - not on pressors #ID - fungemia in blood cultures noted, repeat blood cultures pending - continue caspofungin - ID following, Dr. Bravo - completed 14 day course vancomycin #FEN - continue tube feeds - monitor and replete lytes as needed #PPX - SQ Lovenox 40mg BID - Protonix 40mg QD #LTD - LIJ TLC placed 07/13 (day 2) #Disposition - Continue ICU monitoring Visit type - Emergency Visit Emergency Visit: Yes ED Registration Date: 06/22/19 Care time: The patient presented to the Emergency Department on the above date and was hospitalized for further evaluation of their emergent condition. - New Patient This patient is new to me today: Yes Date on this admission: 07/17/19 - Critical Care Critical Care patient: Yes Total Critical Care Time (in minutes): 36 Critical Care Statement: The care of this patient involved high complexity decision making to prevent further life threatening deterioration of the patient's condition and/or to evaluate & treat vital organ system(s) failure or risk of failure. ATTENDING PHYSICIAN STATEMENT I saw and evaluated the patient. I reviewed the resident's note and discussed the case with the resident. I agree with the resident's findings and plan as documented. SUBJECTIVE: OBJECTIVE: ASSESSMENT AND PLAN:
--- NOTE | 2019-07-17 15:01 | PN ---
Teaching Attending Note Name of Resident: Darcie Preston ATTENDING PHYSICIAN STATEMENT I saw and evaluated the patient. I reviewed the resident's note and discussed the case with the resident. I agree with the resident's findings and plan as documented. SUBJECTIVE: Pt seen and examined in the ICU. Remains intubated, sedated on levophed gtt. Asynchronous with vent. OBJECTIVE: Vital Signs Period Temp Pulse Resp BP Sys/Ortiz Pulse Ox Last 24 Hr 98.2 F-100.0 F 114-124 20-47 104-128/49-70 88-97 Intake & Output 07/14/19 07/15/19 07/16/19 07/17/19 23:59 23:59 23:59 23:59 Intake Total 3962 2594.4 4152 937 Output Total 1600 1650 4500 1500 Balance 2362 944.4 -348 -563 Weight 87.1 kg Gen: intubated, sedated Heart: RRR Lung: scattered rhonchi Abd: soft, nontender Ext: no edema CBC, BMP 07/17/19 05:15 07/17/19 05:15 Laboratory Tests 07/17/19 05:15 Ferritin 99.8 LD Total 488 H C-Reactive Protein 13.5 H Active Medications Acetaminophen (Ofirmev Injection -) 1,000 mg IVPB Q6H PRN PRN Reason: FEVER Amino Acids (Prosource No Carb Liquid Pkt) 30 ml PO BID@0800,1730 [facility] Last Admin: 07/17/19 08:56 Dose: 30 ml Documented by: Ascorbic Acid (Vitamin C -) 500 mg PO DAILY [facility] Last Admin: 07/17/19 09:17 Dose: 500 mg Documented by: Chlorhexidine Gluconate (Hibiclens For Decolonization -) 1 applic TP HS [facility] Last Admin: 07/16/19 22:14 Dose: 1 applic Documented by: Cholecalciferol (Vitamin D3 -) 800 unit PO DAILY [facility] Last Admin: 07/17/19 09:17 Dose: 800 unit Documented by: Enoxaparin Sodium (Lovenox -) 80 mg SQ Q12H [facility] Last Admin: 07/17/19 08:56 Dose: 80 mg Documented by: Propofol (Diprivan -) 1,000,000 mcg in 100 mls @ 2.313 mls/hr IVPB TITR [facility]; Protocol Last Admin: 07/17/19 05:17 Dose: 40 mcg/kg/min, 18.507 mls/hr Documented by: Morphine Sulfate (Morphine 100mg/100ml-0.9% Nacl) 100 mg in 100 mls @ 1 mls/hr IVPB TITR [facility]IKI; Protocol Last Infusion: 07/16/19 16:00 Dose: 2 mg/hr, 2 mls/hr Documented by: Caspofungin 50 mg/ Sodium (Chloride) 250 mls @ 250 mls/hr IVPB Q24H [facility] Last Admin: 07/17/19 09:24 Dose: 250 mls/hr Documented by: Midazolam HCl (Versed -) 100 mg in 100 mls @ 1 mls/hr IVPB TITR [facility]; Protocol Last Admin: 07/16/19 22:13 Dose: 10 mg/hr, 10 mls/hr Documented by: Norepinephrine Bitartrate (Levophed Bag) 16,000 mcg in 500 mls @ 9.375 mls/hr IVPB TITR [facility]; Protocol Last Titration: 07/16/19 18:52 Dose: 5 mcg/min, 9.375 mls/hr Documented by: Meropenem 1 gm/ Dextrose 100 mls @ 200 mls/hr IVPB Q8H-IV [facility] Last Admin: 07/17/19 09:09 Dose: 200 mls/hr Documented by: Vancomycin HCl 1,500 mg/ (Dextrose) 500 mls @ 125 mls/hr IVPB Q12H [facility]; Protocol Last Admin: 07/17/19 11:31 Dose: 125 mls/hr Documented by: Vecuronium [place] (Vecuronium [place]) 100 mg in 100 mls @ 5.226 mls/hr IVPB TITR [facility]; Protocol Last Admin: 07/17/19 11:31 Dose: 1 mcg/kg/min, 5.226 mls/hr Documented by: Lacosamide (Vimpat Injection -) 200 mg IVPB BID [facility] Last Admin: 07/17/19 09:16 Dose: 200 mg Documented by: Levetiracetam (Keppra Injection -) 1,000 mg IVPB BID [facility] Last Admin: 07/17/19 09:20 Dose: 1,000 mg Documented by: Pantoprazole Sodium (Protonix Iv) 40 mg IVPUSH DAILY [facility] Last Admin: 07/17/19 09:11 Dose: 40 mg Documented by: Phenobarbital (Phenobarbital Liquid -) 60 mg GT BID [facility] Last Admin: 07/17/19 09:09 Dose: 60 mg Documented by: Topiramate (Topamax -) 200 mg PO TID [facility] Last Admin: 07/17/19 05:17 Dose: 200 mg Documented by: Zinc Sulfate (Orazinc -) 220 mg PO BID [facility] Last Admin: 07/17/19 09:09 Dose: 220 mg Documented by: ASSESSMENT AND PLAN: Acute Hypoxic and Hypercapneic Respiratory Failure COVID19 Pneumonia E Coli Pneumonia Fungenmia Bacteremia Septic Shock Seizure Disorder Mental Retardation - continue antibiotics, antifungals - f/u pending cultures - titrate pressors to maintain MAP >65 - free water replacement - continue antiepileptics - low tidal volume ventilation - titrate FiO2, PEEP to keep SpO2 >90% - sedate for vent synchrony - start neuromuscular blockade - enteral feeds - DVT/GI prophylaxis - continue ICU monitoring critical care time spent in reviewing chart, evaluating patient and formulating plan 35 min
[2019-07-17] MEDS ORDERED: NOREPINEPHRINE BITARTRATE 8,000 MCG/500 ML BAG IVPB ONE (15:32)
--- NOTE | 2019-07-17 16:54 | PN ---
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, Physician History of Present Illness: Pt seen and examined at bedside. He remains in the ICU. He remains intubated. - Current Medication List Current Medications: Active Medications Acetaminophen (Ofirmev Injection -) 1,000 mg IVPB Q6H PRN PRN Reason: FEVER Amino Acids (Prosource No Carb Liquid Pkt) 30 ml PO BID@0800,1730 [facility] Last Admin: 07/17/19 08:56 Dose: 30 ml Documented by: Ascorbic Acid (Vitamin C -) 500 mg PO DAILY [facility] Last Admin: 07/17/19 09:17 Dose: 500 mg Documented by: Chlorhexidine Gluconate (Hibiclens For Decolonization -) 1 applic TP HS [facility] Last Admin: 07/16/19 22:14 Dose: 1 applic Documented by: Cholecalciferol (Vitamin D3 -) 800 unit PO DAILY [facility] Last Admin: 07/17/19 09:17 Dose: 800 unit Documented by: Enoxaparin Sodium (Lovenox -) 80 mg SQ Q12H [facility] Last Admin: 07/17/19 08:56 Dose: 80 mg Documented by: Propofol (Diprivan -) 1,000,000 mcg in 100 mls @ 2.313 mls/hr IVPB TITR [facility]; Protocol Last Admin: 07/17/19 15:04 Dose: 40 mcg/kg/min, 18.507 mls/hr Documented by: Morphine Sulfate (Morphine 100mg/100ml-0.9% Nacl) 100 mg in 100 mls @ 1 mls/hr IVPB TITR [facility]; Protocol Last Infusion: 07/16/19 16:00 Dose: 2 mg/hr, 2 mls/hr Documented by: Caspofungin 50 mg/ Sodium (Chloride) 250 mls @ 250 mls/hr IVPB Q24H [facility] Last Admin: 07/17/19 09:24 Dose: 250 mls/hr Documented by: Midazolam HCl (Versed -) 100 mg in 100 mls @ 1 mls/hr IVPB TITR [facility]; Protocol Last Admin: 07/16/19 22:13 Dose: 10 mg/hr, 10 mls/hr Documented by: Norepinephrine Bitartrate (Levophed Bag) 16,000 mcg in 500 mls @ 9.375 mls/hr IVPB TITR [facility]; Protocol Last Titration: 07/16/19 18:52 Dose: 5 mcg/min, 9.375 mls/hr Documented by: Meropenem 1 gm/ Dextrose 100 mls @ 200 mls/hr IVPB Q8H-IV [facility] Last Admin: 07/17/19 09:09 Dose: 200 mls/hr Documented by: Vancomycin HCl 1,500 mg/ (Dextrose) 500 mls @ 125 mls/hr IVPB Q12H [facility]; Protocol Last Admin: 07/17/19 11:31 Dose: 125 mls/hr Documented by: Vecuronium Schuyler (Vecuronium [place]uyler) 100 mg in 100 mls @ 5.226 mls/hr IVPB TITR [facility]; Protocol Last Admin: 07/17/19 11:31 Dose: 1 mcg/kg/min, 5.226 mls/hr Documented by: Lacosamide (Vimpat Injection -) 200 mg IVPB BID [facility] Last Admin: 07/17/19 09:16 Dose: 200 mg Documented by: Levetiracetam (Keppra Injection -) 1,000 mg IVPB BID [facility] Last Admin: 07/17/19 09:20 Dose: 1,000 mg Documented by: Pantoprazole Sodium (Protonix Iv) 40 mg IVPUSH DAILY [facility] Last Admin: 07/17/19 09:11 Dose: 40 mg Documented by: Phenobarbital (Phenobarbital Liquid -) 60 mg GT BID [facility] Last Admin: 07/17/19 09:09 Dose: 60 mg Documented by: Topiramate (Topamax -) 200 mg PO TID [facility] Last Admin: 07/17/19 15:03 Dose: 200 mg Documented by: Zinc Sulfate (Orazinc -) 220 mg PO BID [facility] Last Admin: 07/17/19 09:09 Dose: 220 mg Documented by: - Objective Vital Signs: Vital Signs Temperature 98.2 F 07/17/19 12:00 Pulse Rate 134 H 07/17/19 12:00 Respiratory Rate 24 H 07/17/19 12:00 Blood Pressure 133/65 07/17/19 12:00 O2 Sat by Pulse Oximetry (%) 89 L 07/17/19 12:00 Constitutional: Yes: Calm Eyes: Yes: Conjunctiva Clear HENT: Yes: Atraumatic Neck: Yes: Supple Cardiovascular: Yes: S1, S2 Respiratory: Yes: Mechanically Ventilated Gastrointestinal: Yes: Soft Genitourinary: Yes: Caceres Present Musculoskeletal: Yes: Muscle Weakness Edema: Yes Neurological: Yes: Lethargy Labs: CBC, BMP 07/17/19 05:15 07/17/19 05:15 INR, PTT INR 0.97 (0.83-1.09) 06/26/19 06:49 Problem List - Problems (1) Hypernatremia Code(s): E87.0 - HYPEROSMOLALITY AND HYPERNATREMIA (2) Hypokalemia Code(s): E87.6 - HYPOKALEMIA (3) Acute respiratory failure with hypoxia Code(s): J96.01 - ACUTE RESPIRATORY FAILURE WITH HYPOXIA (4) Bacteremia Code(s): R78.81 - BACTEREMIA Assessment/Plan Current Medications Generic Name Dose Route Start Last Admin Trade Name Freq PRN Reason Stop Dose Admin Acetaminophen 1,000 mg 07/16/19 06:09 Ofirmev Injection - IVPB Q6H PRN FEVER Amino Acids 30 ml 07/06/19 17:30 07/17/19 08:56 Prosource No Carb Liquid Pkt PO 30 ml BID@0800,1730 [facility] Administration Ascorbic Acid 500 mg 07/08/19 11:00 07/17/19 09:17 Vitamin C - PO 500 mg DAILY [facility] Administration Chlorhexidine Gluconate 1 applic 06/22/19 22:00 07/16/19 22:14 Hibiclens For Decolonization - TP 1 applic HS [facility] Administration Cholecalciferol 800 unit 07/03/19 16:00 07/17/19 09:17 Vitamin D3 - PO 800 unit DAILY [facility] Administration Enoxaparin Sodium 80 mg 07/05/19 08:00 07/17/19 08:56 Lovenox - SQ 80 mg Q12H [facility] Administration Propofol 1,000,000 mcg in 100 mls @ 2.313 mls/hr 06/22/19 14:00 07/17/19 15:04 Diprivan - IVPB 40 mcg/kg/min TITR [facility] 18.507 mls/hr Administration Protocol 5 MCG/KG/MIN Morphine Sulfate 100 mg in 100 mls @ 1 mls/hr 06/22/19 21:30 07/16/19 16:00 Morphine 100mg/100ml-0.9% Nacl IVPB 2 mg/hr TITR [facility] 2 mls/hr Infusion Protocol 1 MG/HR Caspofungin 50 mg/ Sodium 250 mls @ 250 mls/hr 07/14/19 10:00 07/17/19 09:24 Chloride IVPB 250 mls/hr Q24H [facility] Administration Midazolam HCl 100 mg in 100 mls @ 1 mls/hr 07/15/19 22:15 07/16/19 22:13 Versed - IVPB 10 mg/hr TITR [facility] 10 mls/hr Administration Protocol 1 MG/HR Norepinephrine Bitartrate 16,000 mcg in 500 mls @ 9.375 mls/hr 07/16/19 03:00 07/16/19 18:52 Levophed Bag IVPB 5 mcg/min TITR [facility] 9.375 mls/hr Titration Protocol 5 MCG/MIN Meropenem 1 gm/ Dextrose 100 mls @ 200 mls/hr 07/16/19 11:00 07/17/19 09:09 IVPB 200 mls/hr Q8H-IV [facility] Administration Vancomycin HCl 1,500 mg/ 500 mls @ 125 mls/hr 07/16/19 11:06 07/17/19 11:31 Dextrose IVPB 125 mls/hr Q12H [facility] Administration Protocol Vecuronium Schuyler 100 mg in 100 mls @ 5.226 mls/hr 07/17/19 11:15 07/17/19 11:31 Vecuronium [place] IVPB 1 mcg/kg/min TITR [facility] 5.226 mls/hr Administration Protocol 1 MCG/KG/MIN Lacosamide 200 mg 06/23/19 10:00 07/17/19 09:16 Vimpat Injection - IVPB 200 mg BID [facility] Administration Levetiracetam 1,000 mg 06/23/19 10:00 07/17/19 09:20 Keppra Injection - IVPB 1,000 mg BID [facility] Administration Pantoprazole Sodium 40 mg 06/24/19 10:00 07/17/19 09:11 Protonix Iv IVPUSH 40 mg DAILY [facility] Administration Phenobarbital 60 mg 06/28/19 10:00 07/17/19 09:09 Phenobarbital Liquid - GT 60 mg BID [facility] Administration Topiramate 200 mg 06/23/19 14:00 07/17/19 15:03 Topamax - PO 200 mg TID [facility] Administration Zinc Sulfate 220 mg 06/23/19 22:00 07/17/19 09:09 Orazinc - PO 220 mg BID [facility] Administration Impression 1. hypokalemia 2. hypernatremia 3. resp failure 4. fungemia 5. covid 19 infection 6. ards 7. developemental delay 8. epilepsy 9. bactermia Plan - replace potassium - increase free water with feeds - wound avoid fluids and use gut to replace water deficit - discussed with ICU team - vent support - will follow prn - pt with increased oxygen requirements - vent likely causing increased insensible losses
[2019-07-17] MEDS ORDERED: POTASSIUM CHLORIDE ORAL LIQUID 20 MEQ/15 ML PEG ONE ×2 (22:00→22:30)
[2019-07-17] MEDS: CHLORHEXIDINE GLUCONATE 4% CLEANSER FOR DECOLONIZATION TP SCH (22:36)
[2019-07-17] MEDS: MIDAZOLAM 100 MG/100 ML MG IVPB SCH (22:36)
[2019-07-17] MEDS: ACETAMINOPHEN 1000 MG/100 ML VIAL (NON FORMULARY) IVPB PRN (23:10)
[2019-07-18] MEDS: VANCOMYCIN HCL 1,500 MG in DEXTROSE 5%-WATER - 500 ML IVPB SCH ×3 (00:31→22:54)
[2019-07-18] MEDS ORDERED: DEXTROSE 5%-WATER 100 ML IVPB ONE ×3 (02:39→18:19)
[2019-07-18] MEDS ORDERED: MEROPENEM 1 GM VIAL (RESTRICTED TO ID) IVPB ONE ×3 (02:39→18:19)
[2019-07-18] MEDS: PROPOFOL 1,000,000 MCG/100 ML VIAL IVPB SCH ×4 (02:40→22:59)
[2019-07-18] MEDS: MEROPENEM 1 GM in DEXTROSE 5%-WATER 100 ML IVPB SCH ×3 (02:41→18:16)
[2019-07-18] MEDS: VECURONIUM BROMIDE 100 MG/100 ML BAG IVPB SCH ×2 (05:18→22:37)
[2019-07-18] MEDS: TOPIRAMATE 200 MG TABLET PO SCH ×3 (05:18→22:37)
[2019-07-18] MEDS ORDERED: MORPHINE SULFATE/0.9% NACL/PF 100 MG/100 ML BAG ONE (05:20)
[2019-07-18 06:46] LABS: BASO % 0.4 % (0-2.0); EOS % 8.1 % (0-4.5); HEMATOCRIT 33.7 % (35.4-49); HEMOGLOBIN 10.8 GM/dL (11.7-16.9); LYMPH % 18.5 % (8-40); MCH 30.3 pg (25.7-33.7); MCHC 32.2 g/dl (32.0-35.9); MEAN CELL VOLUME 94.3 fl (80-96); MEAN PLT VOLUME 9.7 fl (7.5-11.1); MONO % 6.6 % (3.8-10.2); NEUT % 66.4 % (42.8-82.8); PLATELET COUNT 124 K/MM3 (134-434); RBC 3.57 M/mm3 (4.00-5.60); RDW 19.2 % (11.9-15.9); WHITE BLOOD COUNT 15.6 K/mm3 (4.0-10.0)
[2019-07-18] MEDS: ACETAMINOPHEN 1000 MG/100 ML VIAL (NON FORMULARY) IVPB PRN ×2 (06:50→12:45)
[2019-07-18 07:01] LABS: BILIRUBIN,TOTAL 0.4 mg/dL (0.2-1); BLOOD UREA NITROGEN 8.8 mg/dL (7-18); CALCIUM 7.8 mg/dL (8.5-10.1); CREATININE 0.3 mg/dL (0.55-1.3); MAGNESIUM 1.9 mg/dL (1.8-2.4); PHOSPHOROUS 3.4 mg/dL (2.5-4.9); POTASSIUM 3.7 mmol/L (3.5-5.1); TOT PROT 4.6 g/dl (6.4-8.2)
[2019-07-18] MEDS: MORPHINE SULFATE/0.9% NACL/PF 100 MG/100 ML BAG IVPB SCH (07:05)
[2019-07-18] MEDS ORDERED: MIDAZOLAM IN 0.9 % SOD.CHLORID 1 MG/1 ML PLAST..BAG ONE ×2 (07:20→20:49)
[2019-07-18] MEDS ORDERED: levETIRAcetam 500 MG/5 ML INJECTION VIAL IVPB ONE (08:26)
[2019-07-18] MEDS ORDERED: PT OWN MED DRAWER 7, Y5N ONE ×6 (08:27→16:04)
[2019-07-18] MEDS: ENOXAPARIN NA (PORCINE) 80 MG/0.8 ML DISP.SYRIN SQ SCH ×2 (09:17→22:38)
[2019-07-18] MEDS: PANTOPRAZOLE SODIUM 40 MG VIAL IVPUSH SCH (09:18)
[2019-07-18] MEDS: CHOLECALCIFEROL (VIT D3) 400 UNIT (10 MCG) TABLET PO SCH (09:18)
[2019-07-18] MEDS: PHENobarbital 20 MG/5 ML UNIT-DOSE CUP GT SCH ×2 (09:18→22:37)
[2019-07-18] MEDS: AMINO ACIDS/PROTEIN HYDROLYS 30 ML LIQUID.PKT PO SCH ×2 (09:18→18:16)
[2019-07-18] MEDS: Lacosamide 200 MG/20 ML VIAL IVPB SCH ×2 (09:18→22:38)
[2019-07-18] MEDS: ASCORBIC ACID 500 MG TABLET (FP) PO SCH (09:18)
[2019-07-18] MEDS: ZINC SULFATE 220 MG CAPSULE (FP) PO SCH ×2 (09:18→22:37)
[2019-07-18] MEDS: levETIRAcetam 500 MG/5 ML INJECTION VIAL IVPB SCH ×2 (09:18→22:38)
[2019-07-18 09:39] LABS: EPI CELLS 4 /uL (0-25.1); HYALINE CASTS 35 /uL (0-3.1); URINE APPEARANCE CLOUDY; URINE BACTERIA 28 /uL (0-1359); URINE BILIRUBIN NEGATIVE (NEGATIVE); URINE COLOR YELLOW; URINE GLUCOSE (UA) NEGATIVE (NEGATIVE); URINE KETONE NEGATIVE (NEGATIVE); URINE LEUK ESTERASE 1+ (NEGATIVE); URINE NITRITE NEGATIVE (NEGATIVE); URINE PROTEIN TRACE (NEGATIVE); URINE WBC 735 /uL (0-25.8)
[2019-07-18] MEDS ORDERED: FUROSEMIDE 40 MG/4 ML INJECTABLE VIAL IVPUSH ONE (09:44)
[2019-07-18] MEDS ORDERED: FUROSEMIDE INJECTION 100 MG in DEXTROSE 5%-WATER - 90 ML IVPB SCH (09:45)
--- NOTE | 2019-07-18 09:48 | PN ---
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 (short form) - Note 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: Seen and examined in the ICU Remains intubated, paralysed on Pressers Blood cultures from 07/15 remain positive Vent: ACVC 26/360/ 100 +5 PPlat 48 P:F 58 NE: 7mcg/min Active Medications Acetaminophen (Ofirmev Injection -) 1,000 mg IVPB Q6H PRN PRN Reason: FEVER Last Admin: 07/18/19 06:50 Dose: 1,000 mg Documented by: Amino Acids (Prosource No Carb Liquid Pkt) 30 ml PO BID@0800,1730 TIKI Last Admin: 07/18/19 09:18 Dose: 30 ml Documented by: Ascorbic Acid (Vitamin C -) 500 mg PO DAILY TIKI Last Admin: 07/18/19 09:18 Dose: 500 mg Documented by: Chlorhexidine Gluconate (Hibiclens For Decolonization -) 1 applic TP HS [facility] Last Admin: 07/17/19 22:36 Dose: 1 applic Documented by: Cholecalciferol (Vitamin D3 -) 800 unit PO DAILY TIKI Last Admin: 07/18/19 09:18 Dose: 800 unit Documented by: Enoxaparin Sodium (Lovenox -) 80 mg SQ Q12H [facility] Last Admin: 07/18/19 09:17 Dose: 80 mg Documented by: Furosemide (Lasix Injection -) 40 mg IVPUSH ONCE ONE Stop: 07/18/19 09:45 Propofol (Diprivan -) 1,000,000 mcg in 100 mls @ 2.313 mls/hr IVPB TITR [facility]; Protocol Last Admin: 07/18/19 02:40 Dose: 40 mcg/kg/min, 18.507 mls/hr Documented by: Morphine Sulfate (Morphine 100mg/100ml-0.9% Nacl) 100 mg in 100 mls @ 1 mls/hr IVPB TITR [facility]; Protocol Last Admin: 07/18/19 07:05 Dose: 10 mg/hr, 10 mls/hr Documented by: Caspofungin 50 mg/ Sodium (Chloride) 250 mls @ 250 mls/hr IVPB Q24H [facility]IKI Last Admin: 07/17/19 09:24 Dose: 250 mls/hr Documented by: Midazolam HCl (Versed -) 100 mg in 100 mls @ 1 mls/hr IVPB TITR [facility]; Protocol Last Admin: 07/17/19 22:36 Dose: 10 mg/hr, 10 mls/hr Documented by: Norepinephrine Bitartrate (Levophed Bag) 16,000 mcg in 500 mls @ 9.375 mls/hr IVPB TITR [facility]; Protocol Last Titration: 07/16/19 18:52 Dose: 5 mcg/min, 9.375 mls/hr Documented by: Meropenem 1 gm/ Dextrose 100 mls @ 200 mls/hr IVPB Q8H-IV [facility] Last Admin: 07/18/19 09:18 Dose: 200 mls/hr Documented by: Vancomycin HCl 1,500 mg/ (Dextrose) 500 mls @ 125 mls/hr IVPB Q12H [facility]; Protocol Last Admin: 07/18/19 00:31 Dose: 125 mls/hr Documented by: Vecuronium [place] (Vecuronium [place]) 100 mg in 100 mls @ 5.226 mls/hr IVPB TITR [facility]; Protocol Last Admin: 07/18/19 05:18 Dose: 1 mcg/kg/min, 5.226 mls/hr Documented by: Furosemide 100 mg/ Dextrose 100 mls @ 5 mls/hr IVPB TITR [facility] Lacosamide (Vimpat Injection -) 200 mg IVPB BID [facility] Last Admin: 07/18/19 09:18 Dose: 200 mg Documented by: Levetiracetam (Keppra Injection -) 1,000 mg IVPB BID [facility] Last Admin: 07/18/19 09:18 Dose: 1,000 mg Documented by: Pantoprazole Sodium (Protonix Iv) 40 mg IVPUSH DAILY [facility] Last Admin: 07/18/19 09:18 Dose: 40 mg Documented by: Phenobarbital (Phenobarbital Liquid -) 60 mg GT BID [facility] Last Admin: 07/18/19 09:18 Dose: 60 mg Documented by: Topiramate (Topamax -) 200 mg PO TID [facility] Last Admin: 07/18/19 05:18 Dose: 200 mg Documented by: Zinc Sulfate (Orazinc -) 220 mg PO BID [facility] Last Admin: 07/18/19 09:18 Dose: 220 mg Documented by: Vital Signs Period Temp Pulse Resp BP Sys/Ortiz Pulse Ox Last 24 Hr 98.2 F-102.7 F 120-144 20-31 114-133/55-65 88-94 Intake & Output 07/15/19 07/16/19 07/17/19 07/18/19 23:59 23:59 23:59 23:59 Intake Total 2594.4 4152 3782 1970.2 Output Total 1650 4500 2450 600 Balance 944.4 -348 1332 1370.2 Weight 87.1 kg Exam: Neuro:RASS-5 on NMBA, PERRL Pulm: bronchial bilatera CV: RRR no m/r/g Abd: obese: SNRND Ext: +4 edema UE/LE ABG Results ABG pH 7.24 (7.35-7.45) L 07/17/19 10:57 ABG pCO2 at Pt Temp 76.0 mmHg (35-45) H* 07/17/19 10:57 ABG pO2 at Pt Temp 58.0 mmHg (80-100) L 07/17/19 10:57 ABG HCO3 31.6 mmol/L (22-27) H 07/17/19 10:57 ABG O2 Sat (Measured) 83.9 % (95-98) L 07/17/19 10:57 ABG O2 Content No Result Required. 07/17/19 10:57 ABG Base Excess 2.3 mmol/L (-2-2) H 07/17/19 10:57 CBC, BMP 07/18/19 05:45 07/18/19 05:45 CXR: 07/16 Line in good position. severe bilateral diffuse infiltrates w/ air bronchograms Microbiology 07/16/19 15:15 Blood - Peripheral Venous Blood Culture - Preliminary Pending Organism 07/16/19 15:05 Blood - Peripheral Venous Blood Culture - Preliminary Pending Organism 07/16/19 12:30 Sputum - Endotrachea Suction/Ventilator Gram Stain - Final 07/16/19 12:30 Sputum - Endotrachea Suction/Ventilator Sputum Culture - Preliminary Presumptive Mrsa (Pbp2a Pos) Lactose Fermenting Neg Bacilli 07/14/19 11:30 Blood - Peripheral Venous Blood Culture - Preliminary NO GROWTH OBTAINED AFTER 72 HOURS, INCUBATION TO CONTINUE FOR 2 DAYS. 07/15/19 12:25 Blood - Peripheral Venous Blood Culture - Preliminary NO GROWTH OBTAINED AFTER 48 HOURS, INCUBATION TO CONTINUE FOR 3 DAYS. 07/12/19 10:55 Blood - Peripheral Venous Blood Culture - Final NO GROWTH AFTER 5 DAYS INCUBATION 07/16/19 12:30 Urine - Urine - Catheterized Urine Culture - Final NO GROWTH OBTAINED 07/12/19 06:00 Sputum - Endotrachea Suction/Ventilator Gram Stain - Final 07/12/19 06:00 Sputum - Endotrachea Suction/Ventilator Sputum Culture - Final 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 S Aureus ASSESSMENT AND PLAN: Acute Hypoxic and Hypercapneic Respiratory Failure COVID19 Pneumonia E Coli Pneumonia Fungenmia Bacteremia Septic Shock Seizure Disorder Mental Retardation - continue antibiotics, antifungals - change TLC today given bactermia - titrate pressors to maintain MAP >65 - free water replacement - continue antiepileptics - low tidal volume ventilation (will decrease TV and increase RR to help lower Pplat) - titrate FiO2, PEEP to keep SpO2 >90% - sedate/NMBA for vent synchrony - lasix push and drip for O>I - enteral feeds - DVT/GI prophylaxis - continue ICU monitoring critical care time spent in reviewing chart, evaluating patient and formulating plan 35 min
--- NOTE | 2019-07-18 10:19 | PN ---
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 (short form) - Note 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: remains intubated doing poorly on pressors positive blood cultures fevers Vital Signs Period Temp Pulse Resp BP Sys/Ortiz Pulse Ox Last 24 Hr 98.2 F-102.7 F 134-144 24-31 114-133/55-65 88-94 cor-rrr lungs decreased bs at bases abd soft,nt ext +edema anthony +central line CBC, BMP 07/18/19 05:45 07/18/19 05:45 Microbiology 07/16/19 15:15 Blood - Peripheral Venous Blood Culture - Preliminary Pending Organism 07/16/19 15:05 Blood - Peripheral Venous Blood Culture - Preliminary Pending Organism 07/16/19 12:30 Sputum - Endotrachea Suction/Ventilator Gram Stain - Final 07/16/19 12:30 Sputum - Endotrachea Suction/Ventilator Sputum Culture - Preliminary Presumptive Mrsa (Pbp2a Pos) Lactose Fermenting Neg Bacilli 07/14/19 11:30 Blood - Peripheral Venous Blood Culture - Preliminary NO GROWTH OBTAINED AFTER 72 HOURS, INCUBATION TO CONTINUE FOR 2 DAYS. 07/15/19 12:25 Blood - Peripheral Venous Blood Culture - Preliminary NO GROWTH OBTAINED AFTER 48 HOURS, INCUBATION TO CONTINUE FOR 3 DAYS. 07/12/19 10:55 Blood - Peripheral Venous Blood Culture - Final NO GROWTH AFTER 5 DAYS INCUBATION 07/16/19 12:30 Urine - Urine - Catheterized Urine Culture - Final NO GROWTH OBTAINED 07/12/19 06:00 Sputum - Endotrachea Suction/Ventilator Gram Stain - Final 07/12/19 06:00 Sputum - Endotrachea Suction/Ventilator Sputum Culture - Fin al 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 Mr S Aureus 07/12/19 11:04 Blood - Peripheral Venous Blood Culture - Final 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 07/12/19 11:04 Blood - Peripheral Venous Yeast/Fungus Identification - Preliminary 07/01/19 18:15 Blood - Peripheral Venous Blood Culture - Final NO GROWTH AFTER 5 DAYS INCUBATION 06/29/19 12:30 Blood - Peripheral Venous Blood Culture - Final Staphylococcus Epidermidis 06/30/19 17:15 Sputum - Endotrachea Suction/Ventilator Gram Stain - Final 06/30/19 17:15 Sputum - Endotrachea Suction/Ventilator Sputum Culture - Fi nal Escherichia Coli Esbl Actuarial Technician 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 06/28/19 09:00 Blood - Peripheral Venous Blood Culture - Final Staphylococcus Epidermidis 06/28/19 12:50 Sputum - Endotrachea Suction/Ventilator Gram Stain - Final 06/28/19 12:50 Sputum - Endotrachea Suction/Ventilator Sputum Culture - Final 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 Staphylococcus Aureus 06/25/19 13:40 Blood - Peripheral Venous Blood Culture - Final NO GROWTH AFTER 5 DAYS INCUBATION 06/25/19 13:20 Blood - Peripheral Venous Blood Culture - Final NO GROWTH AFTER 5 DAYS INCUBATION 06/28/19 12:51 Urine - Urine Anthony Urine Culture - Final NO GROWTH OBTAINED 06/22/19 13:00 Blood - Peripheral Venous Blood Culture - Final Staphylococcus Warneri 06/22/19 13:00 Blood - Peripheral Venous Blood Culture - Final Staphylococcus Epidermidis 06/24/19 00:01 Urine - Urine Anthony Urine Culture - Final NO GROWTH OBTAINED 06/24/19 00:01 Urine For Antigen Detection Legionella Antigen - Final 06/24/19 00:01 Urine For Antigen Detection Streptococcus pneumoniae Antigen (M - Final imp/reccd bacteremia- gram positive- central line change, repeat blood cultures today fungemia- continue cancidas day #4 central line changed hypoxemic resp failure covid 19 positive s/p convalescent plasma s/p tocilizumab MRSA isolation for sputum culture- esbl isolation d/w icu nurse vanco trough today repeat blood cultures after line change continue vancomycin and meropenem overall condition guarded over 35 minutes spent in the care of this critically ill ICU patient Problem List - Problems (1) Suspected COVID-19 virus infection Code(s): R68.89 - OTHER GENERAL SYMPTOMS AND SIGNS (2) Acute respiratory failure with hypoxia Code(s): J96.01 - ACUTE RESPIRATORY FAILURE WITH HYPOXIA (3) Bacteremia Code(s): R78.81 - BACTEREMIA
[2019-07-18 10:28] LABS: YEAST NONE SEEN (NEGATIVE)
[2019-07-18] MEDS: CASPOFUNGIN ACETATE 50 MG in SODIUM CHLORIDE 250 ML IVPB SCH (11:30)
[2019-07-18 12:41] LABS: ARTERIAL BLOOD GAS PO2 158.3 mmHg (80-100)
[2019-07-18 12:42] LABS: ALLENS TEST POSITIVE; ARTERIAL BLD GAS O2 SATURATION 98.5 % (95-98); ARTERIAL BLOOD GAS BASE EXCESS 0.2 mmol/L (-2-2)
[2019-07-18 12:46] LABS: ARTERIAL BLOOD GAS PCO2 81.8 mmHg (35-45)
--- NOTE | 2019-07-18 15:25 | PROC ---
Intubation - Intubation Reason for Intubation: Airway Protection, Other (Piolot balloon failure) Intubation Method: orotracheal Blade used: Glidescope Tube Size (cm): 7.5 Tube position @ lip (cm): 23 Tube position confirmed by: Direct visualization, Breath sounds Breath Sounds after Intubation: equal Remarks: Sensitometrist balloon failure. Pt desaturation to 30's 2/2 inability to achieve Tv's ETT placed w/ glidoscope blade 3 bilateral breath sounds ETT at 23cm CXR ordered
--- NOTE | 2019-07-18 17:28 | PROC ---
Central Line Insertion Indication: Sepsis, Vasopressor Risks and Benefits Explained: Yes Consent on Chart: Yes (Previous line) Central Line: Triple Lumen Catheter Anesthesia: 1% Lidocaine Sterile Technique: Yes Position: Left Subclavian Post Insertion: Yes: Bilateral Breath Sounds, Bilateral Chest Expansion, Chest X-Ray Ordered
--- NOTE | 2019-07-18 17:31 | PROC ---
Procedure Note Procedure: Arterial line: Indication: Shock, fungemia Pt preepped and draped in the usual sterile fashion. The right axillary artery was cannulated via Seldinger tech under ultrasound guidance w/ good arterial wave form and pulsatile blood flow noted. Cath sutured in place. Sterile dressing placed w/ biopatch. Pt tolerated procedure w/o complication. [place] ACNP Pulm/CCM
[2019-07-18] MEDS ORDERED: TRIPLE LUMEN FLUSH 4 ML ML IVPUSH PRN (18:26)
[2019-07-18 21:56] LABS: BLOOD UREA NITROGEN 9.3 mg/dL (7-18); CREATININE 0.3 mg/dL (0.55-1.3)
[2019-07-18 21:57] LABS: ALBUMIN 2.1 g/dl (3.4-5.0); BILIRUBIN,TOTAL 0.3 mg/dL (0.2-1); CALCIUM 7.6 mg/dL (8.5-10.1); TOT PROT 4.9 g/dl (6.4-8.2)
[2019-07-18] MEDS: MIDAZOLAM 100 MG/100 ML MG IVPB SCH (22:37)
[2019-07-18] MEDS: CHLORHEXIDINE GLUCONATE 4% CLEANSER FOR DECOLONIZATION TP SCH (22:38)
[2019-07-18] MEDS: POLYETHYLENE GLYCOL 3350 119 GM BTL PO SCH (22:39)
[2019-07-18] MEDS ORDERED: POTASSIUM CHLORIDE ORAL LIQUID 20 MEQ/15 ML PO ONE (23:55)
[2019-07-19] MEDS ORDERED: MIDAZOLAM IN 0.9 % SOD.CHLORID 1 MG/1 ML PLAST..BAG ONE ×2 (00:39→20:01)
[2019-07-19] MEDS: POTASSIUM CHLORIDE 20 MEQ PREMIX IVPB 100 ML IVPB SCH ×7 (00:59→22:00)
[2019-07-19] MEDS: MORPHINE SULFATE/0.9% NACL/PF 100 MG/100 ML BAG IVPB SCH (01:05)
[2019-07-19] MEDS ORDERED: MEROPENEM 1 GM VIAL (RESTRICTED TO ID) IVPB ONE ×3 (01:09→17:35)
[2019-07-19] MEDS ORDERED: DEXTROSE 5%-WATER 100 ML IVPB ONE ×3 (01:09→17:35)
[2019-07-19] MEDS: MEROPENEM 1 GM in DEXTROSE 5%-WATER 100 ML IVPB SCH ×3 (01:11→18:06)
[2019-07-19] MEDS: PROPOFOL 1,000,000 MCG/100 ML VIAL IVPB SCH ×2 (03:03→18:06)
[2019-07-19] MEDS: TOPIRAMATE 200 MG TABLET PO SCH ×3 (05:32→21:30)
[2019-07-19] MEDS: MIDAZOLAM 100 MG/100 ML MG IVPB SCH (06:42)
[2019-07-19 09:16] LABS: HEMATOCRIT 35.4 % (35.4-49); HEMOGLOBIN 11.3 GM/dL (11.7-16.9); INR 1.06 (0.83-1.09); MCHC 31.8 g/dl (32.0-35.9); MEAN CELL VOLUME 94.1 fl (80-96); MEAN PLT VOLUME 9.7 fl (7.5-11.1); PLATELET COUNT 127 K/MM3 (134-434); PROTHROMBIN TIME (PATIENT) 12.5 SEC (9.7-13.0); RBC 3.76 M/mm3 (4.00-5.60); RDW 18.6 % (11.9-15.9); WHITE BLOOD COUNT 14.5 K/mm3 (4.0-10.0)
[2019-07-19 09:18] LABS: ARTERIAL BLD GAS O2 SATURATION 96.2 % (95-98); ARTERIAL BLOOD GAS BASE EXCESS 11.4 mmol/L (-2-2); ARTERIAL BLOOD GAS PO2 108.2 mmHg (80-100)
[2019-07-19 09:19] LABS: ACTIVATED PTT 38.7 SECONDS (25.2-36.5)
[2019-07-19] MEDS ORDERED: PT OWN MED DRAWER 7, Y5N ONE ×3 (09:20→14:16)
[2019-07-19 09:21] LABS: ARTERIAL BLOOD GAS PCO2 > 100.0 mmHg (35-45)
[2019-07-19] MEDS: CASPOFUNGIN ACETATE 50 MG in SODIUM CHLORIDE 250 ML IVPB SCH (09:33)
[2019-07-19] MEDS: ENOXAPARIN NA (PORCINE) 80 MG/0.8 ML DISP.SYRIN SQ SCH ×2 (09:33→21:30)
[2019-07-19] MEDS: AMINO ACIDS/PROTEIN HYDROLYS 30 ML LIQUID.PKT PO SCH ×2 (09:33→18:06)
[2019-07-19] MEDS: levETIRAcetam 500 MG/5 ML INJECTION VIAL IVPB SCH ×2 (09:33→21:30)
[2019-07-19] MEDS: SPIRONOLACTONE 25 MG TABLET PO SCH (09:33)
[2019-07-19] MEDS: Lacosamide 200 MG/20 ML VIAL IVPB SCH ×2 (09:34→23:39)
[2019-07-19] MEDS: PHENobarbital 20 MG/5 ML UNIT-DOSE CUP GT SCH ×2 (09:34→21:30)
[2019-07-19] MEDS: ZINC SULFATE 220 MG CAPSULE (FP) PO SCH ×2 (09:34→23:38)
[2019-07-19] MEDS: CHOLECALCIFEROL (VIT D3) 400 UNIT (10 MCG) TABLET PO SCH (09:34)
[2019-07-19] MEDS: POLYETHYLENE GLYCOL 3350 119 GM BTL PO SCH ×2 (09:34→21:30)
[2019-07-19] MEDS: PANTOPRAZOLE SODIUM 40 MG VIAL IVPUSH SCH (09:34)
[2019-07-19] MEDS: ASCORBIC ACID 500 MG TABLET (FP) PO SCH (09:34)
[2019-07-19 09:37] LABS: BLOOD UREA NITROGEN 6.7 mg/dL (7-18); CALCIUM 7.4 mg/dL (8.5-10.1); CREATININE 0.2 mg/dL (0.55-1.3); MAGNESIUM 1.8 mg/dL (1.8-2.4); PHOSPHOROUS 3.4 mg/dL (2.5-4.9)
[2019-07-19 09:45] LABS: POTASSIUM 2.9 mmol/L (3.5-5.1)
--- NOTE | 2019-07-19 10:10 | PN ---
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 (short form) - Note 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: Seen and examined in ICU Lines changed 2/2 bactermia/fungemia ETT changed 2/2 barge pilot balloon malfunction w/ desat to 30's Remains on NMBA BP stable 0ff NE this AM Lasix drip started for net neg fluid balance Cont fevers Vent: ACVC 35/[id number] +10 Pplat 36 P:F 108 Active Medications Acetaminophen (Ofirmev Injection -) 1,000 mg IVPB Q6H PRN PRN Reason: FEVER Last Admin: 07/18/19 12:45 Dose: 1,000 mg Documented by: Amino Acids (Prosource No Carb Liquid Pkt) 30 ml PO BID@0800,1730 [facility] Last Admin: 07/19/19 09:33 Dose: 30 ml Documented by: Ascorbic Acid (Vitamin C -) 500 mg PO DAILY [facility] Last Admin: 07/19/19 09:34 Dose: 500 mg Documented by: Chlorhexidine Gluconate (Hibiclens For Decolonization -) 1 applic TP HS [facility] Last Admin: 07/18/19 22:38 Dose: 1 applic Documented by: Cholecalciferol (Vitamin D3 -) 800 unit PO DAILY [facility] Last Admin: 07/19/19 09:34 Dose: 800 unit Documented by: Enoxaparin Sodium (Lovenox -) 80 mg SQ Q12H [facility] Last Admin: 07/19/19 09:33 Dose: 80 mg Documented by: IV Flush (Triple Lumen Flush) 4 ml IVPUSH PRN PRN PRN Reason: Protocol Propofol (Diprivan -) 1,000,000 mcg in 100 mls @ 2.313 mls/hr IVPB TITR [facility]; Protocol Last Admin: 07/19/19 03:03 Dose: 40 mcg/kg/min, 18.507 mls/hr Documented by: Morphine Sulfate (Morphine 100mg/100ml-0.9% Nacl) 100 mg in 100 mls @ 1 mls/hr IVPB TITR [facility]; Protocol Last Admin: 07/19/19 01:05 Dose: 10 mg/hr, 10 mls/hr Documented by: Caspofungin 50 mg/ Sodium (Chloride) 250 mls @ 250 mls/hr IVPB Q24H [facility] Last Admin: 07/19/19 09:33 Dose: 250 mls/hr Documented by: Midazolam HCl (Versed -) 100 mg in 100 mls @ 1 mls/hr IVPB TITR [facility]; Protocol Last Admin: 07/19/19 06:42 Dose: 10 mg/hr, 10 mls/hr Documented by: Meropenem 1 gm/ Dextrose 100 mls @ 200 mls/hr IVPB Q8H-IV [facility] Last Admin: 07/19/19 09:34 Dose: 200 mls/hr Documented by: Vancomycin HCl 1,500 mg/ (Dextrose) 500 mls @ 125 mls/hr IVPB Q12H [facility]; Protocol Last Admin: 07/18/19 22:54 Dose: 125 mls/hr Documented by: Vecuronium [place] (Vecuronium [place]) 100 mg in 100 mls @ 5.226 mls/hr IVPB TITR [facility]; Protocol Last Admin: 07/18/19 22:37 Dose: 1 mcg/kg/min, 5.226 mls/hr Documented by: Furosemide 100 mg/ Dextrose 100 mls @ 5 mls/hr IVPB TITR [facility]; Protocol Last Admin: 07/18/19 12:15 Dose: 5 mg/hr, 5 mls/hr Documented by: Lacosamide (Vimpat Injection -) 200 mg IVPB BID [facility] Last Admin: 07/19/19 09:34 Dose: 200 mg Documented by: Levetiracetam (Keppra Injection -) 1,000 mg IVPB BID [facility] Last Admin: 07/19/19 09:33 Dose: 1,000 mg Documented by: Pantoprazole Sodium (Protonix Iv) 40 mg IVPUSH DAILY [facility] Last Admin: 07/19/19 09:34 Dose: 40 mg Documented by: Phenobarbital (Phenobarbital Liquid -) 60 mg GT BID [facility] Last Admin: 07/19/19 09:34 Dose: 60 mg Documented by: Polyethylene Glycol (Miralax (For Daily Use) -) 17 gm PO BID [facility] Last Admin: 07/19/19 09:34 Dose: 17 gm Documented by: Potassium Chloride (Potassium Chloride 20 Meq Premix Ivpb -) 20 meq IVPB Q60M [facility] Stop: 07/19/19 12:01 Potassium Chloride (Potassium Chloride Oral Liquid) 40 meq PO BID [facility] Stop: 07/20/19 10:01 Spironolactone (Aldactone -) 50 mg PO DAILY [facility] Last Admin: 07/19/19 09:33 Dose: 50 mg Documented by: Topiramate (Topamax -) 200 mg PO TID [facility] Last Admin: 07/19/19 05:32 Dose: 200 mg Documented by: Zinc Sulfate (Orazinc -) 220 mg PO BID [facility] Last Admin: 07/19/19 09:34 Dose: 220 mg Documented by: Vital Signs Period Temp Pulse Resp BP Sys/Ortiz Pulse Ox Last 24 Hr 98.3 F-101.7 F 117-155 26-36 116-151/66-76 93-97 Intake & Output 07/16/19 07/17/19 07/18/19 07/19/19 23:59 23:59 23:59 23:59 Intake Total 4152 3782 4150.2 1835.6 Output Total 4500 2450 4100 1200 Balance -348 1332 50.2 635.6 Weight 87.1 kg Exam: Neuro: RASS-5/NMBA Pulm: bronchial bilateral CV: RRR Abd: SNTND +BS Ext: +4 edema ABG Results ABG pH 7.20 (7.35-7.45) L 07/19/19 09:00 ABG pCO2 at Pt Temp > 100.0 mmHg (35-45) H* 07/19/19 09:00 ABG pO2 at Pt Temp 108.2 mmHg (80-100) H 07/19/19 09:00 ABG HCO3 43.6 mmol/L (22-27) H 07/19/19 09:00 ABG O2 Sat (Measured) 96.2 % (95-98) 07/19/19 09:00 ABG O2 Content No Result Required. 07/19/19 09:00 ABG Base Excess 11.4 mmol/L (-2-2) H 07/19/19 09:00 CBC, BMP 07/19/19 09:04 07/19/19 09:04 ASSESSMENT AND PLAN: Acute Hypoxic and Hypercapneic Respiratory Failure COVID19 Pneumonia E Coli Pneumonia Fungenmia Bacteremia Septic Shock Seizure Disorder Mental Retardation - continue antibiotics, antifungals - FLORESITA per ID given cont bactermia - repeat CVOID swab per ID - titrate pressors to maintain MAP >65 (off this AM) - free water replacement - continue antiepileptics - low tidal volume ventilation - Goal Pplat <30, unable to obtain 2/2 acidosis - titrate FiO2, PEEP to keep SpO2 >90% - sedate/NMBA for vent synchrony - lasix push and drip for O>I - enteral feeds - DVT/GI prophylaxis - continue ICU monitoring critical care time spent in reviewing chart, evaluating patient and formulating plan 35 min Tracy RANDALLP Pulm/CCM [id number]
[2019-07-19] MEDS: FUROSEMIDE INJECTION 100 MG in DEXTROSE 5%-WATER - 90 ML IVPB SCH (10:21)
--- NOTE | 2019-07-19 10:45 | PN ---
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 (short form) - Note 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: remains intubated doing poorly lines changed, zachery placed, ETT tube changed fevers improved today pressor requirements unchanged Vital Signs Period Temp Pulse Resp BP Sys/Ortiz Pulse Ox Last 24 Hr 98.3 F-101.7 F 116-155 26-36 116-151/66-76 93-97 no conjunctival hemorrhages cor-tachycardic lungs decreased bs at bases abd soft,nt ext trace edema CBC, BMP 07/19/19 09:04 07/19/19 09:04 Microbiology 07/16/19 15:05 Blood - Peripheral Venous Blood Culture - Final Staphylococcus Epidermidis 07/16/19 12:30 Sputum - Endotrachea Suction/Ventilator Gram Stain - Final 07/16/19 12:30 Sputum - Endotrachea Suction/Ventilator Sputum Culture - Final S Aureus Escherichia Coli 07/16/19 15:15 Blood - Peripheral Venous Blood Culture - Preliminary Staphylococcus Coagulase Neg 07/14/19 11:30 Blood - Peripheral Venous Blood Culture - Preliminary NO GROWTH OBTAINED AFTER 96 HOURS, INCUBATION TO CONTINUE FOR 1 DAYS. 07/15/19 12:25 Blood - Peripheral Venous Blood Culture - Preliminary NO GROWTH OBTAINED AFTER 72 HOURS, INCUBATION TO CONTINUE FOR 2 DAYS. 07/12/19 10:55 Blood - Peripheral Venous Blood Culture - Final NO GROWTH AFTER 5 DAYS INCUBATION 07/16/19 12:30 Urine - Urine - Catheterized Urine Culture - Final NO GROWTH OBTAINED 07/12/19 06:00 Sputum - Endotrachea Suction/Ventilator Gram Stain - Final 07/12/19 06:00 Sputum - Endotrachea Suction/Ventilator Sputum Culture - Final 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 S Aureus 07/12/19 11:04 Blood - Peripheral Venous Blood Culture - Final 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 07/12/19 11:04 Blood - Peripheral Venous Yeast/Fungus Identification - Preliminary 07/01/19 18:15 Blood - Peripheral Venous Blood Culture - Final NO GROWTH AFTER 5 DAYS INCUBATION 06/29/19 12:30 Blood - Peripheral Venous Blood Culture - Final Staphylococcus Epidermidis 06/30/19 17:15 Sputum - Endotrachea Suction/Ventilator Gram Stain - Final 06/30/19 17:15 Sputum - Endotrachea Suction/Ventilator Sputum Culture - Final Escherichia Coli Esbl Optoelectronic Technician 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 06/28/19 09:00 Blood - Peripheral Venous Blood Culture - Final Staphylococcus Epidermidis 06/28/19 12:50 Sputum - Endotrachea Suction/Ventilator Gram Stain - Final 06/28/19 12:50 Sputum - Endotrachea Suction/Ventilator Sputum Culture - Final 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 Staphylococcus Aureus 06/25/19 13:40 Blood - Peripheral Venous Blood Culture - Final NO GROWTH AFTER 5 DAYS INCUBATION 06/25/19 13:20 Blood - Peripheral Venous Blood Culture - Final NO GROWTH AFTER 5 DAYS INCUBATION 06/28/19 12:51 Urine - Urine Caceres Urine Culture - Final NO GROWTH OBTAINED 06/22/19 13:00 Blood - Peripheral Venous Blood Culture - Final Staphylococcus Warneri 06/22/19 13:00 Blood - Peripheral Venous Blood Culture - Final Staphylococcus Epidermidis 06/24/19 00:01 Urine - Urine Caceres Urine Culture - Final NO GROWTH OBTAINED 06/24/19 00:01 Urine For Antigen Detection Legionella Antigen - Final 06/24/19 00:01 Urine For Antigen Detection Streptococcus pneumoniae Antigen (M - Final imp/reccd ARDS bacteremia- recurrent staph epi bacteremia- ?endocarditis- check echo fungemia- continue cancidas day #5 central line changed covid 19 positive -repeat pcr s/p convalescent plasma s/p tocilizumab MRSA isolation for sputum culture- esbl isolation d/w icu nurse vanco trough in am repeat blood cultures after line change continue vancomycin and meropenem continue cancidas overall condition guarded over 35 minutes spent in the care of this critically ill ICU patient d/w [employer] administrator vanco trough 10, increase to 1750 bid repeat trough in am Problem List - Problems (1) Suspected COVID-19 virus infection Code(s): R68.89 - OTHER GENERAL SYMPTOMS AND SIGNS (2) Acute respiratory failure with hypoxia Code(s): J96.01 - ACUTE RESPIRATORY FAILURE WITH HYPOXIA (3) Bacteremia Code(s): R78.81 - BACTEREMIA
[2019-07-19] MEDS: POTASSIUM CHLORIDE ORAL LIQUID 20 MEQ/15 ML PO SCH ×2 (11:28→23:39)
[2019-07-19] MEDS: VANCOMYCIN HCL 1,500 MG in DEXTROSE 5%-WATER - 500 ML IVPB SCH (11:30)
[2019-07-19] MEDS: ACETAMINOPHEN 1000 MG/100 ML VIAL (NON FORMULARY) IVPB PRN (15:18)
[2019-07-19 18:44] LABS: CALCIUM 7.3 mg/dL (8.5-10.1); CREATININE 0.3 mg/dL (0.55-1.3)
[2019-07-19 18:47] LABS: POTASSIUM 2.9 mmol/L (3.5-5.1)
[2019-07-19] MEDS ORDERED: POTASSIUM CHLORIDE ORAL LIQUID 20 MEQ/15 ML PO ONE (18:48)
[2019-07-19] MEDS: CHLORHEXIDINE GLUCONATE 4% CLEANSER FOR DECOLONIZATION TP SCH (21:30)
[2019-07-20] MEDS: POTASSIUM CHLORIDE 20 MEQ PREMIX IVPB 100 ML IVPB SCH ×6 (01:00→18:38)
[2019-07-20] MEDS ORDERED: MEROPENEM 1 GM VIAL (RESTRICTED TO ID) IVPB ONE ×3 (02:46→17:04)
[2019-07-20] MEDS ORDERED: MIDAZOLAM IN 0.9 % SOD.CHLORID 1 MG/1 ML PLAST..BAG ONE ×3 (02:46→23:16)
[2019-07-20] MEDS ORDERED: DEXTROSE 5%-WATER 100 ML IVPB ONE ×3 (02:47→17:04)
[2019-07-20] MEDS: VANCOMYCIN HCL 1,750 MG in DEXTROSE 5%-WATER - 500 ML IVPB SCH ×2 (02:58→14:31)
[2019-07-20] MEDS: MEROPENEM 1 GM in DEXTROSE 5%-WATER 100 ML IVPB SCH ×3 (05:22→17:11)
[2019-07-20 06:38] LABS: ARTERIAL BLOOD GAS pH 7.36 (7.35-7.45)
[2019-07-20 06:39] LABS: ARTERIAL BLD GAS O2 SATURATION 98.6 % (95-98); ARTERIAL BLOOD GAS BASE EXCESS 15.1 mmol/L (-2-2); ARTERIAL BLOOD GAS PO2 142.6 mmHg (80-100)
[2019-07-20 06:43] LABS: ARTERIAL BLOOD GAS PCO2 81.1 mmHg (35-45)
[2019-07-20 07:32] LABS: HEMATOCRIT 32.4 % (35.4-49); HEMOGLOBIN 10.5 GM/dL (11.7-16.9); MCH 30.2 pg (25.7-33.7); MCHC 32.5 g/dl (32.0-35.9); MEAN PLT VOLUME 9.3 fl (7.5-11.1); PLATELET COUNT 131 K/MM3 (134-434); RBC 3.48 M/mm3 (4.00-5.60); RDW 18.3 % (11.9-15.9); WHITE BLOOD COUNT 11.2 K/mm3 (4.0-10.0)
[2019-07-20] MEDS: TOPIRAMATE 200 MG TABLET PO SCH ×3 (08:00→21:02)
[2019-07-20 08:03] LABS: ANION GAP 5 MMOL/L (8-16); BLOOD UREA NITROGEN 7.7 mg/dL (7-18); CALCIUM 7.2 mg/dL (8.5-10.1); CHLORIDE 93 mmol/L (98-107); CO2 > 45 mmol/L (21-32); CREATININE 0.2 mg/dL (0.55-1.3); GLUCOSE,RANDOM 106 mg/dL (74-106); MAGNESIUM 1.9 mg/dL (1.8-2.4); SODIUM 143 mmol/L (136-145)
[2019-07-20 08:08] LABS: PHOSPHOROUS 1.1 mg/dL (2.5-4.9); POTASSIUM 2.4 mmol/L (3.5-5.1)
[2019-07-20] MEDS ORDERED: POTASSIUM CHLORIDE ORAL LIQUID 20 MEQ/15 ML PO ONE (08:09)
--- NOTE | 2019-07-20 08:16 | PN ---
Physical Exam: SUBJECTIVE: Patient seen and examined OBJECTIVE: Vital Signs Period Temp Pulse Resp BP Sys/Ortiz Pulse Ox Last 24 Hr 97.6 F-100.9 F 82-120 35-38 99-132/52-82 94-100 GENERAL: sedated and unresponsive to voice HEAD: Normal with no signs of trauma. EYES: sclera anicteric, conjunctiva clear ENT: ETT in place. NECK: Trachea midline, full range of motion, supple. LUNGS: See attending note for complete exam. HEART: Regular rate and rhythm. ABDOMEN: Soft, nontender, nondistended, no guarding, no rebound, no hepatosplenomegaly, no masses. SKIN: Warm, dry, normal turgor, no rashes or lesions noted, grossly edematous Laboratory Results - last 24 hr 07/19/19 07/19/19 07/19/19 09:00 09:04 09:04 WBC 14.5 H RBC 3.76 L Hgb 11.3 L Hct 35.4 MCV 94.1 MCH 30.0 MCHC 31.8 L RDW 18.6 H Plt Count 127 L MPV 9.7 PT with INR 12.50 INR 1.06 PTT (Actin FS) 38.7 H Anticoagulation Therapy No Result Required. Puncture Site No Result Required. ABG pH 7.20 L ABG pCO2 at Pt Temp > 100.0 H* ABG pO2 at Pt Temp 108.2 H ABG HCO3 43.6 H ABG O2 Sat (Measured) 96.2 ABG O2 Content No Result Required. ABG Base Excess 11.4 H Yousuf Test No Result Required. Patient On Oxygen No Result Required. O2 Delivery Device No Result Required. Oxygen Flow Rate No Result Required. Vent Mode No Result Required. Vent Rate No Result Required. Mechanical Rate No Result Required. PEEP Pressure Support Vent No Result Required. Sodium Potassium Chloride Carbon Dioxide Anion Gap BUN Creatinine Est GFR (CKD-EPI)AfAm Est GFR (CKD-EPI)NonAf POC Glucometer Random Glucose Calcium Phosphorus Magnesium 07/19/19 07/19/19 07/19/19 09:04 12:07 17:38 WBC RBC Hgb Hct MCV MCH MCHC RDW Plt Count MPV PT with INR INR PTT (Actin FS) Anticoagulation Therapy Puncture Site ABG pH ABG pCO2 at Pt Temp ABG pO2 at Pt Temp ABG HCO3 ABG O2 Sat (Measured) ABG O2 Content ABG Base Excess Yousuf Test Patient On Oxygen O2 Delivery Device Oxygen Flow Rate Vent Mode Vent Rate Mechanical Rate PEEP Pressure Support Vent Sodium 144 Potassium 2.9 L* Chloride 101 Carbon Dioxide 41 H Anion Gap 2 L BUN 6.7 L Creatinine 0.2 L Est GFR (CKD-EPI)AfAm 233.83 Est GFR (CKD-EPI)NonAf 201.75 POC Glucometer 112 109 Random Glucose 102 Calcium 7.4 L Phosphorus 3.4 Magnesium 1.8 07/19/19 07/20/19 07/20/19 17:45 05:00 05:00 WBC 11.2 H RBC 3.48 L Hgb 10.5 L Hct 32.4 L MCV 93.0 MCH 30.2 MCHC 32.5 RDW 18.3 H Plt Count 131 L MPV 9.3 PT with INR INR PTT (Actin FS) Anticoagulation Therapy Puncture Site ABG pH ABG pCO2 at Pt Temp ABG pO2 at Pt Temp ABG HCO3 ABG O2 Sat (Measured) ABG O2 Content ABG Base Excess Yousuf Test Patient On Oxygen O2 Delivery Device Oxygen Flow Rate Vent Mode Vent Rate Mechanical Rate PEEP Pressure Support Vent Sodium 144 143 Potassium 2.9 L* 2.4 L* Chloride 100 93 L Carbon Dioxide 43 H > 45 H Anion Gap 2 L 5 L BUN 9.0 7.7 Creatinine 0.3 L 0.2 L Est GFR (CKD-EPI)AfAm 197.93 233.83 Est GFR (CKD-EPI)NonAf 170.78 201.75 POC Glucometer Random Glucose 117 H 106 Calcium 7.3 L 7.2 L Phosphorus 1.1 L* Magnesium 1.9 07/20/19 05:30 WBC RBC Hgb Hct MCV MCH MCHC RDW Plt Count MPV PT with INR INR PTT (Actin FS) Anticoagulation Therapy No Result Required. Puncture Site Arterial line ABG pH 7.36 ABG pCO2 at Pt Temp 81.1 H* ABG pO2 at Pt Temp 142.6 H ABG HCO3 44.3 H ABG O2 Sat (Measured) 98.6 H ABG O2 Content No Result Required. ABG Base Excess 15.1 H Yousuf Test Not applicable Patient On Oxygen Yes O2 Delivery Device Vent Oxygen Flow Rate 100% Vent Mode A/c Vent Rate 35 Mechanical Rate No Result Required. PEEP 10.0 Pressure Support Vent 280 Sodium Potassium Chloride Carbon Dioxide Anion Gap BUN Creatinine Est GFR (CKD-EPI)AfAm Est GFR (CKD-EPI)NonAf POC Glucometer Random Glucose Calcium Phosphorus Magnesium Active Medications Generic Name Dose Route Start Last Admin Trade Name Freq PRN Reason Stop Dose Admin Acetaminophen 1,000 mg 07/16/19 06:09 07/19/19 15:18 Ofirmev Injection - IVPB 1,000 mg Q6H PRN Administration FEVER Amino Acids 30 ml 07/06/19 17:30 07/19/19 18:06 Prosource No Carb Liquid Pkt PO 30 ml BID@0800,1730 TIKI Administration Ascorbic Acid 500 mg 07/08/19 11:00 07/19/19 09:34 Vitamin C - PO 500 mg DAILY TIKI Administration Chlorhexidine Gluconate 1 applic 06/22/19 22:00 07/19/19 21:30 Hibiclens For Decolonization - TP 1 applic HS TIKI Administration Cholecalciferol 800 unit 07/03/19 16:00 07/19/19 09:34 Vitamin D3 - PO 800 unit DAILY TIKI Administration Enoxaparin Sodium 80 mg 07/05/19 08:00 07/19/19 21:30 Lovenox - SQ 80 mg Q12H TIKI Administration IV Flush 4 ml 07/18/19 18:26 Triple Lumen Flush IVPUSH PRN PRN Protocol Propofol 1,000,000 mcg in 100 mls @ 2.313 mls/hr 06/22/19 14:00 07/19/19 18:06 Diprivan - IVPB 40 mcg/kg/min TITR TIKI 18.507 mls/hr Administration Protocol 5 MCG/KG/MIN Morphine Sulfate 100 mg in 100 mls @ 1 mls/hr 06/22/19 21:30 07/19/19 12:19 Morphine 100mg/100ml-0.9% Nacl IVPB 10 mg/hr TITR TIKI 10 mls/hr Infusion Protocol 1 MG/HR Caspofungin 50 mg/ Sodium 250 mls @ 250 mls/hr 07/14/19 10:00 07/19/19 09:33 Chloride IVPB 250 mls/hr Q24H TIKI Administration Midazolam HCl 100 mg in 100 mls @ 1 mls/hr 07/15/19 22:15 07/19/19 06:42 Versed - IVPB 10 mg/hr TITR TIKI 10 mls/hr Administration Protocol 1 MG/HR Meropenem 1 gm/ Dextrose 100 mls @ 200 mls/hr 07/16/19 11:00 07/20/19 05:22 IVPB 200 mls/hr Q8H-IV TIKI Administration Vecuronium [place]uck 100 mg in 100 mls @ 5.226 mls/hr 07/17/19 11:15 07/19/19 12:19 Vecuronium [place] IVPB 1 mcg/kg/min TITR TIKI 5.226 mls/hr Titration Protocol 1 MCG/KG/MIN Furosemide 100 mg/ Dextrose 100 mls @ 10 mls/hr 07/19/19 10:15 07/19/19 15:58 IVPB 10 mg/hr TITR TIKI 10 mls/hr Titration Protocol 10 MG/HR Vancomycin HCl 1,750 mg/ 500 mls @ 250 mls/hr 07/20/19 00:30 07/20/19 02:58 Dextrose IVPB 250 mls/hr Q12H TIIK Administration Protocol Lacosamide 200 mg 06/23/19 10:00 07/19/19 23:39 Vimpat Injection - IVPB 200 mg BID TIKI Administration Levetiracetam 1,000 mg 06/23/19 10:00 07/19/19 21:30 Keppra Injection - IVPB 1,000 mg BID TIKI Administration Pantoprazole Sodium 40 mg 06/24/19 10:00 07/19/19 09:34 Protonix Iv IVPUSH 40 mg DAILY TIKI Administration Phenobarbital 60 mg 06/28/19 10:00 07/19/19 21:30 Phenobarbital Liquid - GT 60 mg BID TIKI Administration Polyethylene Glycol 17 gm 07/18/19 22:00 07/19/19 21:30 Miralax (For Daily Use) - PO 17 gm BID TIKI Administration Potassium Chloride 40 meq 07/19/19 10:00 07/19/19 23:39 Potassium Chloride Oral Liquid PO 07/20/19 10:01 40 meq BID TIKI Administration Potassium Chloride 20 meq 07/20/19 08:15 Potassium Chloride 20 Meq Premix Ivpb - IVPB 07/20/19 09:16 Q60M TIKI Potassium Chloride 40 meq 07/20/19 08:09 Potassium Chloride Oral Liquid PO 07/20/19 08:10 ONCE ONE Spironolactone 50 mg 07/19/19 10:00 07/19/19 09:33 Aldactone - PO 50 mg DAILY TIKI Administration Topiramate 200 mg 06/23/19 14:00 07/19/19 21:30 Topamax - PO 200 mg TID TIKI Administration Zinc Sulfate 220 mg 06/23/19 22:00 07/19/19 23:38 Orazinc - PO 220 mg BID TIKI Administration ASSESSMENT/PLAN: Kumar Hurtado is a 38M with PMH MR and epilepsy who presented to ED initially with SOB and hypoxia requiring intubation, admitted to hospital for hypoxic respiratory failure due to covid-19. NAEO. Has been receiving Lasix drip with spironolactone for diuresis of pulmonary edema, UOP 4000cc, but morning K 2.4, repleting aggressively with 40mg IV and 40mg PO with repeat BMP in the afternoon. Placed on vecuronoium drip for vent asynchrony. No seizures overnight. 3x blood cultures positive for staph epi, concern for endocarditis, ECHO ordered but cannot be performed on covid-1 9+, pending repeat serology. NEURO #post-intubation sedation - continue midazolam, propofol, and morphine - wean as tolerated - CTM mental status #epilepsy - continue Keppra, Topamax, Vimpat, and phenobarbitol - Ativan 2mg PRN for breakthrough PULM #hypoxic respiratory failure 2/2 covid-19 - intubated - AC 35/350/10/100% - ABG 7.36/81.1/142.6 - wean FIO2 with goal SpO2 >90% - continue vecuronium drip - s/p Plaquenil, convalescent plasma, and Actemra CARDIO - CTM VS - not on pressors ID #fungemia - yeast present in blood and sputum cultures - continue caspofungin started 07/13 (day 6) - Dr. Bravo following #staphylococcus epidermidis bacteremia - continue vancomycin BID started 07/15 (day 4) - FLORES[facility] ECHO ordered per ID for eval endocarditis - cardiology cannot perform ECHO on covid-19 patients - repeat covid-19 testing pending - follow blood cultures FEN #diet - continue tube feeds Vital 1.2 with free water #hypokalemia - severely low at 2.4 - 40mg PO + 2x 20mg IV - repeat BMP ordered after - repleting Mag with 2g IV #electrolytes - replete PRN PPX #DVT - SQ Lovenox 40mg BID #stress ulcer - Protonix 40mg QD LTD - ETT replaced 07/17 (day 2) - LSC TLC placed 07/17 (day 2) - R radial A-line placed 07/17 (day 2) DISPO - ICU - Full Code Visit type - Emergency Visit Emergency Visit: No - New Patient This patient is new to me today: No - Critical Care Critical Care patient: Yes Total Critical Care Time (in minutes): 35 Critical Care Statement: The care of this patient involved high complexity decision making to prevent further life threatening deterioration of the patient's condition and/or to evaluate & treat vital organ system(s) failure or risk of failure. ATTENDING PHYSICIAN STATEMENT I saw and evaluated the patient. I reviewed the resident's note and discussed the case with the resident. I agree with the resident's findings and plan as documented. SUBJECTIVE: OBJECTIVE: ASSESSMENT AND PLAN:
[2019-07-20] MEDS ORDERED: PT OWN MED DRAWER 7, Y5N ONE ×2 (09:43→14:06)
[2019-07-20] MEDS: AMINO ACIDS/PROTEIN HYDROLYS 30 ML LIQUID.PKT PO SCH ×2 (09:49→17:11)
[2019-07-20] MEDS: SPIRONOLACTONE 25 MG TABLET PO SCH (09:49)
[2019-07-20] MEDS: ENOXAPARIN NA (PORCINE) 80 MG/0.8 ML DISP.SYRIN SQ SCH ×2 (09:49→20:47)
[2019-07-20] MEDS: levETIRAcetam 500 MG/5 ML INJECTION VIAL IVPB SCH ×2 (09:49→21:02)
[2019-07-20] MEDS: POTASSIUM CHLORIDE ORAL LIQUID 20 MEQ/15 ML PO SCH (09:55)
[2019-07-20] MEDS: POLYETHYLENE GLYCOL 3350 119 GM BTL PO SCH ×2 (09:55→21:02)
[2019-07-20] MEDS: PANTOPRAZOLE SODIUM 40 MG VIAL IVPUSH SCH (09:55)
[2019-07-20] MEDS: ZINC SULFATE 220 MG CAPSULE (FP) PO SCH ×2 (09:55→21:02)
[2019-07-20] MEDS: CHOLECALCIFEROL (VIT D3) 400 UNIT (10 MCG) TABLET PO SCH (10:00)
[2019-07-20] MEDS: ASCORBIC ACID 500 MG TABLET (FP) PO SCH (10:00)
[2019-07-20] MEDS: Lacosamide 200 MG/20 ML VIAL IVPB SCH ×2 (10:00→21:02)
--- NOTE | 2019-07-20 10:38 | PN ---
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 (short form) - Note 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: remains intubated afebrile off pressors Vital Signs Period Temp Pulse Resp BP Sys/Ortiz Pulse Ox Last 24 Hr 97.4 F-100.9 F 81-120 35-38 99-132/52-82 98-100 cor-rrr lungs decreased bs at bases abd soft,nt ext no edema CBC, BMP 07/20/19 05:00 07/20/19 05:00 vanco trough 20 Microbiology 07/15/19 12:25 Blood - Peripheral Venous Blood Culture - Final NO GROWTH AFTER 5 DAYS INCUBATION 07/16/19 15:15 Blood - Peripheral Venous Blood Culture - Final Staphylococcus Epidermidis 07/18/19 21:10 Blood - Peripheral Venous Blood Culture - Preliminary NO GROWTH OBTAINED AFTER 24 HOURS, INCUBATION TO CONTINUE FOR 4 DAYS. 07/18/19 18:30 Blood - Peripheral Venous Blood Culture - Preliminary NO GROWTH OBTAINED AFTER 24 HOURS, INCUBATION TO CONTINUE FOR 4 DAYS. 07/14/19 11:30 Blood - Peripheral Venous Blood Culture - Final NO GROWTH AFTER 5 DAYS INCUBATION 07/16/19 15:05 Blood - Peripheral Venous Blood Culture - Final Staphylococcus Epidermidis 07/16/19 12:30 Sputum - Endotrachea Suction/Ventilator Gram Stain - Final 07/16/19 12:30 Sputum - Endotrachea Suction/Ventilator Sputum Culture - Final S Aureus Escherichia Coli 07/12/19 10:55 Blood - Peripheral Venous Blood Culture - Final NO GROWTH AFTER 5 DAYS INCUBATION 07/16/19 12:30 Urine - Urine - Catheterized Urine Culture - Final NO GROWTH OBTAINED 07/12/19 06:00 Sputum - Endotrachea Suction/Ventilator Gram Stain - Final 07/12/19 06:00 Sputum - Endotrachea Suction/Ventilator Sputum Culture - Final 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 S Aureus 07/12/19 11:04 Blood - Peripheral Venous Blood Culture - Final 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 07/12/19 11:04 Blood - Peripheral Venous Yeast/Fungus Identification - Preliminary 07/01/19 18:15 Blood - Peripheral Venous Blood Culture - Final NO GROWTH AFTER 5 DAYS INCUBATION 06/29/19 12:30 Blood - Peripheral Venous Blood Culture - Final Staphylococcus Epidermidis 06/30/19 17:15 Sputum - Endotrachea Suction/Ventilator Gram Stain - Final 06/30/19 17:15 Sputum - Endotrachea Suction/Ventilator Sputum Culture - Final Escherichia Coli Esbl Guide Setter 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 06/28/19 09:00 Blood - Peripheral Venous Blood Culture - Final Staphylococcus Epidermidis 06/28/19 12:50 Sputum - Endotrachea Suction/Ventilator Gram Stain - Final 06/28/19 12:50 Sputum - Endotrachea Suction/Ventilator Sputum Culture - Final 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 Staphylococcus Aureus 06/25/19 13:40 Blood - Peripheral Venous Blood Culture - Final NO GROWTH AFTER 5 DAYS INCUBATION 06/25/19 13:20 Blood - Peripheral Venous Blood Culture - Final NO GROWTH AFTER 5 DAYS INCUBATION 06/28/19 12:51 Urine - Urine Caceres Urine Culture - Final NO GROWTH OBTAINED 06/22/19 13:00 Blood - Peripheral Venous Blood Culture - Final Staphylococcus Warneri 06/22/19 13:00 Blood - Peripheral Venous Blood Culture - Final Staphylococcus Epidermidis 06/24/19 00:01 Urine - Urine Caceres Urine Culture - Final NO GROWTH OBTAINED 06/24/19 00:01 Urine For Antigen Detection Legionella Antigen - Final 06/24/19 00:01 Urine For Antigen Detection Streptococcus pneumoniae Antigen (M - Final imp/reccd ARDS bacteremia- recurrent staph epi bacteremia- ?endocarditis- check echo fungemia- continue cancidas day #6 central line changed covid 19 positive -repeat pcr s/p convalescent plasma s/p tocilizumab MRSA isolation for sputum culture- esbl isolation continue vanco/meropenem/cancidas echo overall prognosis is guarded Problem List - Problems (1) Suspected COVID-19 virus infection Code(s): R68.89 - OTHER GENERAL SYMPTOMS AND SIGNS (2) Acute respiratory failure with hypoxia Code(s): J96.01 - ACUTE RESPIRATORY FAILURE WITH HYPOXIA (3) Bacteremia Code(s): R78.81 - BACTEREMIA
[2019-07-20] MEDS: CASPOFUNGIN ACETATE 50 MG in SODIUM CHLORIDE 250 ML IVPB SCH (11:34)
[2019-07-20] MEDS ORDERED: MAGNESIUM SULF 50% (8.12 MEQ/2 ML-1 GM VIAL) IVPB ONE (11:42)
[2019-07-20] MEDS: PHENobarbital 20 MG/5 ML UNIT-DOSE CUP GT SCH ×2 (11:50→21:02)
[2019-07-20] MEDS: FUROSEMIDE INJECTION 100 MG in DEXTROSE 5%-WATER - 90 ML IVPB SCH ×2 (11:50→23:12)
--- NOTE | 2019-07-20 13:26 | PN ---
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 (short form) - Note 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: Patient seen and examined in the ICU. Remains intubated and sedated. No pressors. PPlat: 33 OBJECTIVE: Intake & Output 07/17/19 07/18/19 07/19/19 07/20/19 23:59 23:59 23:59 23:59 Intake Total 3782 4150.2 2276.6 1181.8 Output Total 2450 4100 2700 4000 Balance 1332 50.2 -423.4 -2818.2 Last Vital Signs Temp Pulse Resp BP Pulse Ox 97.5 F L 81 35 H 100/56 L 98 07/20/19 12:00 07/20/19 12:00 07/20/19 12:00 07/20/19 12:00 07/20/19 11:59 Active Medications Acetaminophen (Ofirmev Injection -) 1,000 mg IVPB Q6H PRN PRN Reason: FEVER Last Admin: 07/19/19 15:18 Dose: 1,000 mg Documented by: Amino Acids (Prosource No Carb Liquid Pkt) 30 ml PO BID@0800,1730 [facility] Last Admin: 07/20/19 09:49 Dose: 30 ml Documented by: Ascorbic Acid (Vitamin C -) 500 mg PO DAILY [facility] Last Admin: 07/20/19 10:00 Dose: 500 mg Documented by: Chlorhexidine Gluconate (Hibiclens For Decolonization -) 1 applic TP HS [facility] Last Admin: 07/19/19 21:30 Dose: 1 applic Documented by: Cholecalciferol (Vitamin D3 -) 800 unit PO DAILY [facility] Last Admin: 07/20/19 10:00 Dose: 800 unit Documented by: Enoxaparin Sodium (Lovenox -) 80 mg SQ Q12H [facility] Last Admin: 07/20/19 09:49 Dose: 80 mg Documented by: IV Flush (Triple Lumen Flush) 4 ml IVPUSH PRN PRN PRN Reason: Protocol Propofol (Diprivan -) 1,000,000 mcg in 100 mls @ 2.313 mls/hr IVPB TITR [facility]; Protocol Last Titration: 07/20/19 09:10 Dose: 40 mcg/kg/min, 18.507 mls/hr Documented by: Morphine Sulfate (Morphine 100mg/100ml-0.9% Nacl) 100 mg in 100 mls @ 1 mls/hr IVPB TITR TIKI; Protocol Last Infusion: 07/20/19 09:10 Dose: 10 mg/hr, 10 mls/hr Documented by: Caspofungin 50 mg/ Sodium (Chloride) 250 mls @ 250 mls/hr IVPB Q24H TIKI Last Admin: 07/20/19 11:34 Dose: 250 mls/hr Documented by: Midazolam HCl (Versed -) 100 mg in 100 mls @ 1 mls/hr IVPB TITR TIKI; Protocol Last Infusion: 07/20/19 09:49 Dose: 10 mg/hr, 10 mls/hr Documented by: Meropenem 1 gm/ Dextrose 100 mls @ 200 mls/hr IVPB Q8H-IV TIKI Last Admin: 07/20/19 09:53 Dose: 200 mls/hr Documented by: Vecuronium Perry (Vecuronium Perry) 100 mg in 100 mls @ 5.226 mls/hr IVPB TITR TIKI; Protocol Last Titration: 07/19/19 12:19 Dose: 1 mcg/kg/min, 5.226 mls/hr Documented by: Furosemide 100 mg/ Dextrose 100 mls @ 10 mls/hr IVPB TITR TIKI; Protocol Last Admin: 07/20/19 11:50 Dose: 10 mg/hr, 10 mls/hr Documented by: Vancomycin HCl 1,750 mg/ (Dextrose) 500 mls @ 250 mls/hr IVPB Q12H TIKI; Protocol Last Admin: 07/20/19 02:58 Dose: 250 mls/hr Documented by: Lacosamide (Vimpat Injection -) 200 mg IVPB BID [facility] Last Admin: 07/20/19 10:00 Dose: 200 mg Documented by: Levetiracetam (Keppra Injection -) 1,000 mg IVPB BID [facility] Last Admin: 07/20/19 09:49 Dose: 1,000 mg Documented by: Pantoprazole Sodium (Protonix Iv) 40 mg IVPUSH DAILY [facility] Last Admin: 07/20/19 09:55 Dose: 40 mg Documented by: Phenobarbital (Phenobarbital Liquid -) 60 mg GT BID [facility] Last Admin: 07/20/19 11:50 Dose: 60 mg Documented by: Polyethylene Glycol (Miralax (For Daily Use) -) 17 gm PO BID [facility] Last Admin: 07/20/19 09:55 Dose: 17 gm Documented by: Potassium Phos/Sodium Phos (Phos-Nak Packet -) 1 packet PO TID [facility] Spironolactone (Aldactone -) 50 mg PO DAILY [facility] Last Admin: 07/20/19 09:49 Dose: 50 mg Documented by: Topiramate (Topamax -) 200 mg PO TID [facility] Last Admin: 07/20/19 08:00 Dose: 200 mg Documented by: Zinc Sulfate (Orazinc -) 220 mg PO BID [facility] Last Admin: 07/20/19 09:55 Dose: 220 mg Documented by: Gen: intubated, sedated Heart: RRR Lung: scattered rhonchi Abd: soft, nontender Ext: no edema Laboratory Results - last 24 hr 07/19/19 07/19/19 07/19/19 11:30 17:38 17:45 WBC RBC Hgb Hct MCV MCH MCHC RDW Plt Count MPV Anticoagulation Therapy Puncture Site ABG pH ABG pCO2 at Pt Temp ABG pO2 at Pt Temp ABG HCO3 ABG O2 Sat (Measured) ABG O2 Content ABG Base Excess Yousuf Test Patient On Oxygen O2 Delivery Device Oxygen Flow Rate Vent Mode Vent Rate Mechanical Rate PEEP Pressure Support Vent Sodium 144 Potassium 2.9 L* Chloride 100 Carbon Dioxide 43 H Anion Gap 2 L BUN 9.0 Creatinine 0.3 L Est GFR (CKD-EPI)AfAm 197.93 Est GFR (CKD-EPI)NonAf 170.78 POC Glucometer 109 Random Glucose 117 H Calcium 7.3 L Phosphorus Magnesium Vancomycin Pre-Dose COVID-19 (LEROY) Not detected 07/20/19 07/20/19 07/20/19 05:00 05:00 05:30 WBC 11.2 H RBC 3.48 L Hgb 10.5 L Hct 32.4 L MCV 93.0 MCH 30.2 MCHC 32.5 RDW 18.3 H Plt Count 131 L MPV 9.3 Anticoagulation Therapy No Result Required. Puncture Site Arterial line ABG pH 7.36 ABG pCO2 at Pt Temp 81.1 H* ABG pO2 at Pt Temp 142.6 H ABG HCO3 44.3 H ABG O2 Sat (Measured) 98.6 H ABG O2 Content No Result Required. ABG Base Excess 15.1 H Yousuf Test Not applicable Patient On Oxygen Yes O2 Delivery Device Vent Oxygen Flow Rate 100% Vent Mode A/c Vent Rate 35 Mechanical Rate No Result Required. PEEP 10.0 Pressure Support Vent 280 Sodium 143 Potassium 2.4 L* Chloride 93 L Carbon Dioxide > 45 H Anion Gap 5 L BUN 7.7 Creatinine 0.2 L Est GFR (CKD-EPI)AfAm 233.83 Est GFR (CKD-EPI)NonAf 201.75 POC Glucometer Random Glucose 106 Calcium 7.2 L Phosphorus 1.1 L* Magnesium 1.9 Vancomycin Pre-Dose COVID-19 (LEROY) 07/20/19 07/20/19 11:25 11:38 WBC RBC Hgb Hct MCV MCH MCHC RDW Plt Count MPV Anticoagulation Therapy Puncture Site ABG pH ABG pCO2 at Pt Temp ABG pO2 at Pt Temp ABG HCO3 ABG O2 Sat (Measured) ABG O2 Content ABG Base Excess Yousuf Test Patient On Oxygen O2 Delivery Device Oxygen Flow Rate Vent Mode Vent Rate Mechanical Rate PEEP Pressure Support Vent Sodium Potassium Chloride Carbon Dioxide Anion Gap BUN Creatinine Est GFR (CKD-EPI)AfAm Est GFR (CKD-EPI)NonAf POC Glucometer 108 Random Glucose Calcium Phosphorus Magnesium Vancomycin Pre-Dose 20.0 H COVID-19 (LEROY) ASSESSMENT AND PLAN: Acute Hypoxic and Hypercapneic Respiratory Failure COVID19 Pneumonia E Coli Pneumonia Fungenmia Bacteremia Septic Shock Seizure Disorder Mental Retardation - continue antibiotics, antifungals per ID - f/u pending cultures - pressors if MAP < 65 - continue antiepileptics - low tidal volume ventilation - titrate FiO2, PEEP to keep SpO2 >90% - sedate for vent synchrony - enteral feeds - DVT/GI prophylaxis - continue ICU monitoring Family meeting for GOC. Dr Callaway Critical care time spent in reviewing chart, evaluating patient and formulating plan 35 min
[2019-07-20] MEDS: PROPOFOL 1,000,000 MCG/100 ML VIAL IVPB SCH ×2 (14:31→20:48)
[2019-07-20] MEDS: NAPH,MB-DB/K PH,MBDB POWDER PACKET PO SCH ×2 (14:32→21:02)
--- NOTE | 2019-07-20 15:36 | PN ---
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, Physician History of Present Illness: Pt seen and examined at bedside. He remains in the ICU. - Current Medication List Current Medications: Active Medications Acetaminophen (Ofirmev Injection -) 1,000 mg IVPB Q6H PRN PRN Reason: FEVER Last Admin: 07/19/19 15:18 Dose: 1,000 mg Documented by: Amino Acids (Prosource No Carb Liquid Pkt) 30 ml PO BID@0800,1730 [facility] Last Admin: 07/20/19 09:49 Dose: 30 ml Documented by: Ascorbic Acid (Vitamin C -) 500 mg PO DAILY TIKI Last Admin: 07/20/19 10:00 Dose: 500 mg Documented by: Chlorhexidine Gluconate (Hibiclens For Decolonization -) 1 applic TP HS [facility] Last Admin: 07/19/19 21:30 Dose: 1 applic Documented by: Cholecalciferol (Vitamin D3 -) 800 unit PO DAILY [facility] Last Admin: 07/20/19 10:00 Dose: 800 unit Documented by: Enoxaparin Sodium (Lovenox -) 80 mg SQ Q12H [facility] Last Admin: 07/20/19 09:49 Dose: 80 mg Documented by: IV Flush (Triple Lumen Flush) 4 ml IVPUSH PRN PRN PRN Reason: Protocol Propofol (Diprivan -) 1,000,000 mcg in 100 mls @ 2.313 mls/hr IVPB TITR [facility]; Protocol Last Admin: 07/20/19 14:31 Dose: 40 mcg/kg/min, 18.507 mls/hr Documented by: Morphine Sulfate (Morphine 100mg/100ml-0.9% Nacl) 100 mg in 100 mls @ 1 mls/hr IVPB TITR [facility]; Protocol Last Infusion: 07/20/19 09:10 Dose: 10 mg/hr, 10 mls/hr Documented by: Caspofungin 50 mg/ Sodium (Chloride) 250 mls @ 250 mls/hr IVPB Q24H [facility] Last Admin: 07/20/19 11:34 Dose: 250 mls/hr Documented by: Midazolam HCl (Versed -) 100 mg in 100 mls @ 1 mls/hr IVPB TITR [facility]; Protocol Last Infusion: 07/20/19 09:49 Dose: 10 mg/hr, 10 mls/hr Documented by: Meropenem 1 gm/ Dextrose 100 mls @ 200 mls/hr IVPB Q8H-IV [facility] Last Admin: 07/20/19 09:53 Dose: 200 mls/hr Documented by: Vecuronium [place] (Vecuronium [place]) 100 mg in 100 mls @ 5.226 mls/hr IVPB TITR [facility]; Protocol Last Titration: 07/19/19 12:19 Dose: 1 mcg/kg/min, 5.226 mls/hr Documented by: Furosemide 100 mg/ Dextrose 100 mls @ 10 mls/hr IVPB TITR [facility]; Protocol Last Admin: 07/20/19 11:50 Dose: 10 mg/hr, 10 mls/hr Documented by: Vancomycin HCl 1,500 mg/ (Dextrose) 250 mls @ 125 mls/hr IVPB Q12H TIKI; Protocol Sodium Phosphate 20 mm/ (Dextrose) 256.6667 mls @ 62.5 mls/hr IVPB ONCE ONE Stop: 07/20/19 19:39 Lacosamide (Vimpat Injection -) 200 mg IVPB BID [facility] Last Admin: 07/20/19 10:00 Dose: 200 mg Documented by: Levetiracetam (Keppra Injection -) 1,000 mg IVPB BID [facility] Last Admin: 07/20/19 09:49 Dose: 1,000 mg Documented by: Pantoprazole Sodium (Protonix Iv) 40 mg IVPUSH DAILY [facility] Last Admin: 07/20/19 09:55 Dose: 40 mg Documented by: Phenobarbital (Phenobarbital Liquid -) 60 mg GT BID [facility] Last Admin: 07/20/19 11:50 Dose: 60 mg Documented by: Polyethylene Glycol (Miralax (For Daily Use) -) 17 gm PO BID [facility] Last Admin: 07/20/19 09:55 Dose: 17 gm Documented by: Potassium Phos/Sodium Phos (Phos-Nak Packet -) 1 packet PO TID [facility] Last Admin: 07/20/19 14:32 Dose: 1 packet Documented by: Spironolactone (Aldactone -) 50 mg PO DAILY [facility] Last Admin: 07/20/19 09:49 Dose: 50 mg Documented by: Topiramate (Topamax -) 200 mg PO TID [facility] Last Admin: 07/20/19 14:31 Dose: 200 mg Documented by: Zinc Sulfate (Orazinc -) 220 mg PO BID [facility] Last Admin: 07/20/19 09:55 Dose: 220 mg Documented by: - Objective Vital Signs: Vital Signs Temperature 97.6 F 07/20/19 14:00 Pulse Rate 86 07/20/19 14:00 Respiratory Rate 35 H 07/20/19 14:00 Blood Pressure 101/55 L 07/20/19 14:00 O2 Sat by Pulse Oximetry (%) 98 07/20/19 11:59 Constitutional: Yes: Calm HENT: Yes: Normocephalic Cardiovascular: Yes: S1, S2 Respiratory: Yes: Mechanically Ventilated Gastrointestinal: Yes: Soft Genitourinary: Yes: Caceres Present Edema: Yes Edema: LUE: Trace, RUE: Trace, LLE: 1+, RLE: 1+ Neurological: Yes: Lethargy Labs: CBC, BMP 07/20/19 05:00 07/20/19 05:00 INR, PTT INR 1.06 (0.83-1.09) 07/19/19 09:04 Problem List - Problems (1) Hypernatremia Code(s): E87.0 - HYPEROSMOLALITY AND HYPERNATREMIA (2) Hypokalemia Code(s): E87.6 - HYPOKALEMIA (3) Acute respiratory failure with hypoxia Code(s): J96.01 - ACUTE RESPIRATORY FAILURE WITH HYPOXIA (4) Bacteremia Code(s): R78.81 - BACTEREMIA Assessment/Plan Current Medications Generic Name Dose Route Start Last Admin Trade Name Freq PRN Reason Stop Dose Admin Acetaminophen 1,000 mg 07/16/19 06:09 07/19/19 15:18 Ofirmev Injection - IVPB 1,000 mg Q6H PRN Administration FEVER Amino Acids 30 ml 07/06/19 17:30 07/20/19 09:49 Prosource No Carb Liquid Pkt PO 30 ml BID@0800,1730 TIKI Administration Ascorbic Acid 500 mg 07/08/19 11:00 07/20/19 10:00 Vitamin C - PO 500 mg DAILY TIKI Administration Chlorhexidine Gluconate 1 applic 06/22/19 22:00 07/19/19 21:30 Hibiclens For Decolonization - TP 1 applic HS TIKI Administration Cholecalciferol 800 unit 07/03/19 16:00 07/20/19 10:00 Vitamin D3 - PO 800 unit DAILY TIKI Administration Enoxaparin Sodium 80 mg 07/05/19 08:00 07/20/19 09:49 Lovenox - SQ 80 mg Q12H TIKI Administration IV Flush 4 ml 07/18/19 18:26 Triple Lumen Flush IVPUSH PRN PRN Protocol Propofol 1,000,000 mcg in 100 mls @ 2.313 mls/hr 06/22/19 14:00 07/20/19 14:31 Diprivan - IVPB 40 mcg/kg/min TITR TIKI 18.507 mls/hr Administration Protocol 5 MCG/KG/MIN Morphine Sulfate 100 mg in 100 mls @ 1 mls/hr 06/22/19 21:30 07/20/19 09:10 Morphine 100mg/100ml-0.9% Nacl IVPB 10 mg/hr TITR TIKI 10 mls/hr Infusion Protocol 1 MG/HR Caspofungin 50 mg/ Sodium 250 mls @ 250 mls/hr 07/14/19 10:00 07/20/19 11:34 Chloride IVPB 250 mls/hr Q24H TIKI Administration Midazolam HCl 100 mg in 100 mls @ 1 mls/hr 07/15/19 22:15 07/20/19 09:49 Versed - IVPB 10 mg/hr TITR TIKI 10 mls/hr Infusion Protocol 1 MG/HR Meropenem 1 gm/ Dextrose 100 mls @ 200 mls/hr 07/16/19 11:00 07/20/19 09:53 IVPB 200 mls/hr Q8H-IV TIKI Administration Vecuronium [place] 100 mg in 100 mls @ 5.226 mls/hr 07/17/19 11:15 07/19/19 12:19 Vecuronium [place] IVPB 1 mcg/kg/min TITR TIKI 5.226 mls/hr Titration Protocol 1 MCG/KG/MIN Furosemide 100 mg/ Dextrose 100 mls @ 10 mls/hr 07/19/19 10:15 07/20/19 11:50 IVPB 10 mg/hr TITR TIKI 10 mls/hr Administration Protocol 10 MG/HR Vancomycin HCl 1,500 mg/ 250 mls @ 125 mls/hr 07/21/19 02:00 Dextrose IVPB Q12H TIKI Protocol Sodium Phosphate 20 mm/ 256.6667 mls @ 62.5 mls/hr 07/20/19 15:33 Dextrose IVPB 07/20/19 19:39 ONCE ONE Lacosamide 200 mg 06/23/19 10:00 07/20/19 10:00 Vimpat Injection - IVPB 200 mg BID TIKI Administration Levetiracetam 1,000 mg 06/23/19 10:00 07/20/19 09:49 Keppra Injection - IVPB 1,000 mg BID TIKI Administration Pantoprazole Sodium 40 mg 06/24/19 10:00 07/20/19 09:55 Protonix Iv IVPUSH 40 mg DAILY TIKI Administration Phenobarbital 60 mg 06/28/19 10:00 07/20/19 11:50 Phenobarbital Liquid - GT 60 mg BID TIKI Administration Polyethylene Glycol 17 gm 07/18/19 22:00 07/20/19 09:55 Miralax (For Daily Use) - PO 17 gm BID TIKI Administration Potassium Phos/Sodium Phos 1 packet 07/20/19 14:00 07/20/19 14:32 Phos-Nak Packet - PO 1 packet TID TIKI Administration Spironolactone 50 mg 07/19/19 10:00 07/20/19 09:49 Aldactone - PO 50 mg DAILY TIKI Administration Topiramate 200 mg 06/23/19 14:00 07/20/19 14:31 Topamax - PO 200 mg TID TIKI Administration Zinc Sulfate 220 mg 06/23/19 22:00 07/20/19 09:55 Orazinc - PO 220 mg BID TIKI Administration Impression 1. hypokalemia 2. hypernatremia 3. resp failure 4. fungemia 5. covid 19 infection 6. ards 7. developemental delay 8. epilepsy 9. bactermia Plan - replace potassium - replace phos - cont feeds - discussed with ICU team - vent support - pt with increased oxygen requirements
[2019-07-20 16:20] LABS: BLOOD UREA NITROGEN 8.4 mg/dL (7-18); CALCIUM 7.1 mg/dL (8.5-10.1); CHLORIDE 93 mmol/L (98-107); CREATININE 0.2 mg/dL (0.55-1.3); GLUCOSE,RANDOM 150 mg/dL (74-106); SODIUM 143 mmol/L (136-145)
[2019-07-20 16:24] LABS: ANION GAP 5 MMOL/L (8-16); CO2 > 45 mmol/L (21-32)
[2019-07-20] MEDS ORDERED: SODIUM PHOSPHATE - 20 MM in DEXTROSE 5%-WATER - 250 ML IVPB ONE (16:30)
[2019-07-20 16:38] LABS: POTASSIUM 2.6 mmol/L (3.5-5.1)
[2019-07-20] MEDS ORDERED: POTASSIUM CHLORIDE ORAL LIQUID 20 MEQ/15 ML NGT ONE (16:40)
[2019-07-20] MEDS: CHLORHEXIDINE GLUCONATE 4% CLEANSER FOR DECOLONIZATION TP SCH (21:02)
[2019-07-20 21:41] LABS: BLOOD UREA NITROGEN 9.6 mg/dL (7-18); CALCIUM 7.3 mg/dL (8.5-10.1); CHLORIDE 92 mmol/L (98-107); CREATININE 0.2 mg/dL (0.55-1.3); GLUCOSE,RANDOM 113 mg/dL (74-106); MAGNESIUM 2.1 mg/dL (1.8-2.4); POTASSIUM 3.1 mmol/L (3.5-5.1); SODIUM 141 mmol/L (136-145)
[2019-07-20 21:42] LABS: ANION GAP 4 MMOL/L (8-16); CO2 > 45 mmol/L (21-32)
[2019-07-21] MEDS ORDERED: DEXTROSE 5%-WATER 100 ML IVPB ONE ×3 (01:38→17:23)
[2019-07-21] MEDS ORDERED: MEROPENEM 1 GM VIAL (RESTRICTED TO ID) IVPB ONE ×3 (01:38→17:22)
[2019-07-21] MEDS ORDERED: PT OWN MED DRAWER 7, Y5N ONE ×6 (01:39→18:30)
[2019-07-21] MEDS: VANCOMYCIN HCL 1,500 MG in DEXTROSE 5%-WATER - 500 ML IVPB SCH ×2 (01:50→14:21)
[2019-07-21] MEDS: MEROPENEM 1 GM in DEXTROSE 5%-WATER 100 ML IVPB SCH ×3 (01:50→17:31)
[2019-07-21] MEDS: MIDAZOLAM 100 MG/100 ML MG IVPB SCH (02:31)
[2019-07-21] MEDS: VECURONIUM BROMIDE 100 MG/100 ML BAG IVPB SCH (02:32)
[2019-07-21] MEDS: PROPOFOL 1,000,000 MCG/100 ML VIAL IVPB SCH ×2 (02:33→22:00)
[2019-07-21] MEDS: MORPHINE SULFATE/0.9% NACL/PF 100 MG/100 ML BAG IVPB SCH ×2 (03:46→21:59)
[2019-07-21] MEDS: POTASSIUM CHLORIDE 20 MEQ PREMIX IVPB 100 ML IVPB SCH ×3 (03:47→05:51)
[2019-07-21] MEDS: TOPIRAMATE 200 MG TABLET PO SCH ×3 (05:52→22:01)
[2019-07-21] MEDS: NAPH,MB-DB/K PH,MBDB POWDER PACKET PO SCH ×3 (05:55→22:01)
[2019-07-21 07:16] LABS: BASO % 0.7 % (0-2.0); EOS % 22.8 % (0-4.5); HEMATOCRIT 29.8 % (35.4-49); HEMOGLOBIN 9.9 GM/dL (11.7-16.9); LYMPH % 19.5 % (8-40); MCH 31.1 pg (25.7-33.7); MCHC 33.4 g/dl (32.0-35.9); MEAN PLT VOLUME 8.8 fl (7.5-11.1); MONO % 10.8 % (3.8-10.2); NEUT % 46.2 % (42.8-82.8); PLATELET COUNT 130 K/MM3 (134-434); RDW 18.2 % (11.9-15.9); WHITE BLOOD COUNT 7.8 K/mm3 (4.0-10.0)
[2019-07-21 07:39] LABS: ALBUMIN 1.9 g/dl (3.4-5.0); BILIRUBIN,TOTAL 0.3 mg/dL (0.2-1); BLOOD UREA NITROGEN 8.7 mg/dL (7-18); CALCIUM 7.1 mg/dL (8.5-10.1); CHLORIDE 91 mmol/L (98-107); CREATININE 0.2 mg/dL (0.55-1.3); GLUCOSE,RANDOM 124 mg/dL (74-106); PHOSPHOROUS 2.4 mg/dL (2.5-4.9); POTASSIUM 3.6 mmol/L (3.5-5.1); SGOT/AST 44 U/L (15-37); SGPT/ALT 36 U/L (13-61); SODIUM 141 mmol/L (136-145); TOT PROT 4.4 g/dl (6.4-8.2)
[2019-07-21 07:41] LABS: ALK PHOS 119 U/L (45-117); ANION GAP 5 MMOL/L (8-16); CO2 > 45 mmol/L (21-32)
[2019-07-21] MEDS: CASPOFUNGIN ACETATE 50 MG in SODIUM CHLORIDE 250 ML IVPB SCH (09:22)
[2019-07-21] MEDS: SPIRONOLACTONE 25 MG TABLET PO SCH (09:45)
[2019-07-21] MEDS: AMINO ACIDS/PROTEIN HYDROLYS 30 ML LIQUID.PKT PO SCH ×2 (09:45→17:33)
[2019-07-21] MEDS: ENOXAPARIN NA (PORCINE) 80 MG/0.8 ML DISP.SYRIN SQ SCH ×2 (09:45→22:00)
[2019-07-21] MEDS: PANTOPRAZOLE SODIUM 40 MG VIAL IVPUSH SCH (09:45)
[2019-07-21] MEDS: ASCORBIC ACID 500 MG TABLET (FP) PO SCH (09:46)
[2019-07-21] MEDS: Lacosamide 200 MG/20 ML VIAL IVPB SCH ×2 (09:46→22:01)
[2019-07-21] MEDS: CHOLECALCIFEROL (VIT D3) 400 UNIT (10 MCG) TABLET PO SCH (09:46)
[2019-07-21] MEDS: PHENobarbital 20 MG/5 ML UNIT-DOSE CUP GT SCH ×2 (09:47→22:01)
[2019-07-21] MEDS: ZINC SULFATE 220 MG CAPSULE (FP) PO SCH ×2 (09:47→22:01)
[2019-07-21] MEDS: levETIRAcetam 500 MG/5 ML INJECTION VIAL IVPB SCH ×2 (09:49→22:00)
[2019-07-21 10:52] LABS: ARTERIAL BLOOD GAS pH 7.38 (7.35-7.45)
[2019-07-21 10:53] LABS: ARTERIAL BLD GAS O2 SATURATION 98.9 % (95-98); ARTERIAL BLOOD GAS BASE EXCESS 21.2 mmol/L (-2-2); ARTERIAL BLOOD GAS PO2 163 mmHg (80-100)
[2019-07-21 10:56] LABS: ARTERIAL BLOOD GAS PCO2 87.3 mmHg (35-45)
[2019-07-21 11:12] LABS: ANISOCYTOSIS 1+; MACROCYTOSIS 0; PLATELET ESTIMATE DECREASED; TARGET CELLS 1+; TEAR DROP CELLS 1+
--- NOTE | 2019-07-21 11:26 | PN ---
Physical Exam: SUBJECTIVE: Patient seen and examined OBJECTIVE: Vital Signs Period Temp Pulse Resp BP Sys/Ortiz Pulse Ox Last 24 Hr 97.2 F-97.8 F 81-101 35-35 85-108/48-59 98-100 GENERAL: sedated and unresponsive to voice HEAD: Normal with no signs of trauma. EYES: sclera anicteric, conjunctiva clear ENT: ETT in place. NECK: Trachea midline, full range of motion, supple. LUNGS: See attending note for complete exam. HEART: Regular rate and rhythm. ABDOMEN: Soft, nontender, nondistended, no guarding, no rebound, no hepatosplenomegaly, no masses. SKIN: Warm, dry, normal turgor, no rashes or lesions noted, grossly edematous Laboratory Results - last 24 hr 07/19/19 07/20/19 07/20/19 11:30 11:25 11:38 WBC RBC Hgb Hct MCV MCH MCHC RDW Plt Count MPV Absolute Neuts (auto) Neutrophils % Lymphocytes % Monocytes % Eosinophils % Basophils % Nucleated RBC % Anticoagulation Therapy Puncture Site ABG pH ABG pCO2 at Pt Temp ABG pO2 at Pt Temp ABG HCO3 ABG O2 Sat (Measured) ABG O2 Content ABG Base Excess Yousuf Test Patient On Oxygen O2 Delivery Device Oxygen Flow Rate Vent Mode Vent Rate Mechanical Rate Pressure Support Vent Sodium Potassium Chloride Carbon Dioxide Anion Gap BUN Creatinine Est GFR (CKD-EPI)AfAm Est GFR (CKD-EPI)NonAf POC Glucometer 108 Random Glucose Calcium Phosphorus Magnesium Total Bilirubin AST ALT Alkaline Phosphatase Total Protein Albumin Vancomycin Pre-Dose 20.0 H COVID-19 (LEROY) Not detected 07/20/19 07/20/19 07/20/19 15:25 16:26 20:35 WBC RBC Hgb Hct MCV MCH MCHC RDW Plt Count MPV Absolute Neuts (auto) Neutrophils % Lymphocytes % Monocytes % Eosinophils % Basophils % Nucleated RBC % Anticoagulation Therapy Puncture Site ABG pH ABG pCO2 at Pt Temp ABG pO2 at Pt Temp ABG HCO3 ABG O2 Sat (Measured) ABG O2 Content ABG Base Excess Yousuf Test Patient On Oxygen O2 Delivery Device Oxygen Flow Rate Vent Mode Vent Rate Mechanical Rate Pressure Support Vent Sodium 143 141 Potassium 2.6 L* 3.1 L Chloride 93 L 92 L Carbon Dioxide > 45 H > 45 H Anion Gap 5 L 4 L BUN 8.4 9.6 Creatinine 0.2 L 0.2 L Est GFR (CKD-EPI)AfAm 233.83 233.83 Est GFR (CKD-EPI)NonAf 201.75 201.75 POC Glucometer 133 Random Glucose 150 H 113 H Calcium 7.1 L 7.3 L Phosphorus 3.0 Magnesium 2.1 Total Bilirubin AST ALT Alkaline Phosphatase Total Protein Albumin Vancomycin Pre-Dose COVID-19 (LEROY) 07/21/19 07/21/19 07/21/19 06:40 06:40 09:55 WBC 7.8 RBC 3.20 L Hgb 9.9 L Hct 29.8 L MCV 93.0 MCH 31.1 MCHC 33.4 RDW 18.2 H Plt Count 130 L MPV 8.8 Absolute Neuts (auto) 3.6 Neutrophils % 46.2 D Lymphocytes % 19.5 Monocytes % 10.8 H Eosinophils % 22.8 H* D Basophils % 0.7 Nucleated RBC % 0 Anticoagulation Therapy No Result Required. Puncture Site Arterial line ABG pH 7.38 ABG pCO2 at Pt Temp 87.3 H* ABG pO2 at Pt Temp 163 H ABG HCO3 50.1 H ABG O2 Sat (Measured) 98.9 H ABG O2 Content No Result Required. ABG Base Excess 21.2 H Yousuf Test No Result Required. Patient On Oxygen Yes O2 Delivery Device No Result Required. Oxygen Flow Rate 100 Vent Mode No Result Required. Vent Rate 35 Mechanical Rate No Result Required. Pressure Support Vent 280 Sodium 141 Potassium 3.6 Chloride 91 L Carbon Dioxide > 45 H Anion Gap 5 L BUN 8.7 Creatinine 0.2 L Est GFR (CKD-EPI)AfAm 233.83 Est GFR (CKD-EPI)NonAf 201.75 POC Glucometer Random Glucose 124 H Calcium 7.1 L Phosphorus 2.4 L Magnesium 2.0 Total Bilirubin 0.3 AST 44 H ALT 36 Alkaline Phosphatase 119 H Total Protein 4.4 L Albumin 1.9 L Vancomycin Pre-Dose COVID-19 (LEROY) Active Medications Generic Name Dose Route Start Last Admin Trade Name Freq PRN Reason Stop Dose Admin Acetaminophen 1,000 mg 07/16/19 06:09 07/19/19 15:18 Ofirmev Injection - IVPB 1,000 mg Q6H PRN Administration FEVER Amino Acids 30 ml 07/06/19 17:30 07/21/19 09:45 Prosource No Carb Liquid Pkt PO 30 ml BID@0800,1730 TIKI Administration Ascorbic Acid 500 mg 07/08/19 11:00 07/21/19 09:46 Vitamin C - PO 500 mg DAILY TIKI Administration Chlorhexidine Gluconate 1 applic 06/22/19 22:00 07/20/19 21:02 Hibiclens For Decolonization - TP 1 applic HS TIKI Administration Cholecalciferol 800 unit 07/03/19 16:00 07/21/19 09:46 Vitamin D3 - PO 800 unit DAILY TIKI Administration Enoxaparin Sodium 80 mg 07/05/19 08:00 07/21/19 09:45 Lovenox - SQ 80 mg Q12H TIKI Administration IV Flush 4 ml 07/18/19 18:26 Triple Lumen Flush IVPUSH PRN PRN Protocol Propofol 1,000,000 mcg in 100 mls @ 2.313 mls/hr 06/22/19 14:00 07/21/19 02:33 Diprivan - IVPB 30 mcg/kg/min TITR TIKI 13.88 mls/hr Administration Protocol 5 MCG/KG/MIN Morphine Sulfate 100 mg in 100 mls @ 1 mls/hr 06/22/19 21:30 07/21/19 03:46 Morphine 100mg/100ml-0.9% Nacl IVPB 10 mg/hr TITR TIKI 10 mls/hr Administration Protocol 1 MG/HR Caspofungin 50 mg/ Sodium 250 mls @ 250 mls/hr 07/14/19 10:00 07/21/19 09:22 Chloride IVPB 250 mls/hr Q24H TIKI Administration Midazolam HCl 100 mg in 100 mls @ 1 mls/hr 07/15/19 22:15 07/21/19 03:47 Versed - IVPB 7 mg/hr TITR TIKI 7 mls/hr Infusion Protocol 1 MG/HR Meropenem 1 gm/ Dextrose 100 mls @ 200 mls/hr 07/16/19 11:00 07/21/19 09:48 IVPB 200 mls/hr Q8H-IV TIKI Administration Vecuronium [place] 100 mg in 100 mls @ 5.226 mls/hr 07/17/19 11:15 07/21/19 02:32 Vecuronium [place] IVPB 1 mcg/kg/min TITR TIKI 5.226 mls/hr Administration Protocol 1 MCG/KG/MIN Furosemide 100 mg/ Dextrose 100 mls @ 10 mls/hr 07/19/19 10:15 07/20/19 23:12 IVPB 10 mg/hr TITR TIKI 10 mls/hr Administration Protocol 10 MG/HR Vancomycin HCl 1,500 mg/ 500 mls @ 250 mls/hr 07/21/19 02:00 07/21/19 01:50 Dextrose IVPB 250 mls/hr Q12H TIKI Administration Protocol Lacosamide 200 mg 06/23/19 10:00 07/21/19 09:46 Vimpat Injection - IVPB 200 mg BID TIKI Administration Levetiracetam 1,000 mg 06/23/19 10:00 07/21/19 09:49 Keppra Injection - IVPB 1,000 mg BID TIKI Administration Pantoprazole Sodium 40 mg 06/24/19 10:00 07/21/19 09:45 Protonix Iv IVPUSH 40 mg DAILY TIKI Administration Phenobarbital 60 mg 06/28/19 10:00 07/21/19 09:47 Phenobarbital Liquid - GT 60 mg BID TIKI Administration Polyethylene Glycol 17 gm 07/18/19 22:00 07/20/19 21:02 Miralax (For Daily Use) - PO 17 gm BID TIKI Administration Potassium Chloride 40 meq 07/21/19 10:45 Potassium Chloride Oral Liquid PO DAILY TIKI Potassium Phos/Sodium Phos 1 packet 07/20/19 14:00 07/21/19 05:55 Phos-Nak Packet - PO 1 packet TID TIKI Administration Spironolactone 50 mg 07/19/19 10:00 07/21/19 09:45 Aldactone - PO 50 mg DAILY TIKI Administration Topiramate 200 mg 06/23/19 14:00 07/21/19 05:52 Topamax - PO 200 mg TID TIKI Administration Zinc Sulfate 220 mg 06/23/19 22:00 07/21/19 09:47 Orazinc - PO 220 mg BID TIKI Administration ASSESSMENT/PLAN: Kumar Hurtado is a 38M with PMH MR and epilepsy who presented to ED initially with SOB and hypoxia requiring intubation, admitted to hospital for hypoxic respiratory failure due to covid-19. NAEO. K critically low yesterday, repleted overnight with 160 mEq K, now 3.6 this morning. Remains on lasix drip for pulmonary edema, giving daily 40mg NGT KCl to prevent further drop. ~7000cc UOP since yesterday. Eosinophilia this morning likely 2/2 fungal infection, on caspofungin daily, pending ID re- evaluation. Remains on propofol@30, morphine@10, midazolam@7 for sedation, paralyzed on vecuronium@1 for vent asynchrony. Eligible for FLORESITA today. NEURO #post-intubation sedation - continue midazolam, propofol, and morphine - wean as tolerated - CTM mental status #epilepsy - continue Keppra, Topamax, Vimpat, and phenobarbitol - Ativan 2mg PRN for breakthrough PULM #hypoxic respiratory failure 2/2 covid-19 - intubated - AC 35/350/10/100% - ABG 7.38/87.3/163 - wean FIO2 with goal SpO2 >90% - continue vecuronium drip - s/p Plaquenil, convalescent plasma, and Actemra CARDIO - CTM VS - not on pressors ID #fungemia - yeast present in blood and sputum cultures - continue caspofungin started 07/13 (day 7) - Dr. Bravo following #staphylococcus epidermidis bacteremia - continue vancomycin BID started 07/15 (day 5) - FLORES[facility] ECHO ordered per ID for eval endocarditis - follow blood cultures FEN #diet - continue tube feeds Vital 1.2 with free water #hypokalemia - resolved - starting daily 40mg NGT KCl while on Lasix drip - sending UA for eval RTA #electrolytes - replete PRN PPX #DVT - SQ Lovenox 40mg BID #stress ulcer - Protonix 40mg QD LTD - ETT replaced 07/17 (day 3) - LSC TLC placed 07/17 (day 3) - R radial A-line placed 07/17 (day 3) DISPO - ICU - Full Code Visit type - Emergency Visit Emergency Visit: No - New Patient This patient is new to me today: No - Critical Care Critical Care patient: Yes Total Critical Care Time (in minutes): 35 Critical Care Statement: The care of this patient involved high complexity decision making to prevent further life threatening deterioration of the patient's condition and/or to evaluate & treat vital organ system(s) failure or risk of failure. ATTENDING PHYSICIAN STATEMENT I saw and evaluated the patient. I reviewed the resident's note and discussed the case with the resident. I agree with the resident's findings and plan as documented. SUBJECTIVE: OBJECTIVE: ASSESSMENT AND PLAN:
--- NOTE | 2019-07-21 11:49 | PN ---
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 (short form) - Note 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: Patient seen and examined in the ICU. Remains intubated and sedated. No pressors. PPlat: 35 OBJECTIVE: Intake & Output 07/18/19 07/19/19 07/20/19 07/21/19 23:59 23:59 23:59 23:59 Intake Total 4150.2 2276.6 3848.8 1655 Output Total 4100 2700 7100 800 Balance 50.2 -423.4 -3251.2 855 Weight 202 lb 13.204 oz Last Vital Signs Temp Pulse Resp BP Pulse Ox 97.5 F L 95 H 35 H 94/48 L 100 07/21/19 10:00 07/21/19 10:00 07/21/19 10:00 07/21/19 10:00 07/21/19 10:00 Active Medications Acetaminophen (Ofirmev Injection -) 1,000 mg IVPB Q6H PRN PRN Reason: FEVER Last Admin: 07/19/19 15:18 Dose: 1,000 mg Documented by: Amino Acids (Prosource No Carb Liquid Pkt) 30 ml PO BID@0800,1730 [facility] Last Admin: 07/21/19 09:45 Dose: 30 ml Documented by: Ascorbic Acid (Vitamin C -) 500 mg PO DAILY [facility] Last Admin: 07/21/19 09:46 Dose: 500 mg Documented by: Chlorhexidine Gluconate (Hibiclens For Decolonization -) 1 applic TP HS [facility] Last Admin: 07/20/19 21:02 Dose: 1 applic Documented by: Cholecalciferol (Vitamin D3 -) 800 unit PO DAILY [facility] Last Admin: 07/21/19 09:46 Dose: 800 unit Documented by: Enoxaparin Sodium (Lovenox -) 80 mg SQ Q12H [facility] Last Admin: 07/21/19 09:45 Dose: 80 mg Documented by: IV Flush (Triple Lumen Flush) 4 ml IVPUSH PRN PRN PRN Reason: Protocol Propofol (Diprivan -) 1,000,000 mcg in 100 mls @ 2.313 mls/hr IVPB TITR [facility]; Protocol Last Admin: 07/21/19 02:33 Dose: 30 mcg/kg/min, 13.88 mls/hr Documented by: Morphine Sulfate (Morphine 100mg/100ml-0.9% Nacl) 100 mg in 100 mls @ 1 mls/hr IVPB TITR [facility]; Protocol Last Admin: 07/21/19 03:46 Dose: 10 mg/hr, 10 mls/hr Documented by: Caspofungin 50 mg/ Sodium (Chloride) 250 mls @ 250 mls/hr IVPB Q24H [facility] Last Admin: 07/21/19 09:22 Dose: 250 mls/hr Documented by: Midazolam HCl (Versed -) 100 mg in 100 mls @ 1 mls/hr IVPB TITR [facility]; Protocol Last Infusion: 07/21/19 03:47 Dose: 7 mg/hr, 7 mls/hr Documented by: Meropenem 1 gm/ Dextrose 100 mls @ 200 mls/hr IVPB Q8H-IV [facility] Last Admin: 07/21/19 09:48 Dose: 200 mls/hr Documented by: Vecuronium [place] (Vecuronium [place]) 100 mg in 100 mls @ 5.226 mls/hr IVPB TITR [facility]; Protocol Last Admin: 07/21/19 02:32 Dose: 1 mcg/kg/min, 5.226 mls/hr Documented by: Furosemide 100 mg/ Dextrose 100 mls @ 10 mls/hr IVPB TITR [facility]; Protocol Last Admin: 07/20/19 23:12 Dose: 10 mg/hr, 10 mls/hr Documented by: Vancomycin HCl 1,500 mg/ (Dextrose) 500 mls @ 250 mls/hr IVPB Q12H [facility]; Protocol Last Admin: 07/21/19 01:50 Dose: 250 mls/hr Documented by: Lacosamide (Vimpat Injection -) 200 mg IVPB BID [facility] Last Admin: 07/21/19 09:46 Dose: 200 mg Documented by: Levetiracetam (Keppra Injection -) 1,000 mg IVPB BID [facility] Last Admin: 07/21/19 09:49 Dose: 1,000 mg Documented by: Pantoprazole Sodium (Protonix Iv) 40 mg IVPUSH DAILY [facility] Last Admin: 07/21/19 09:45 Dose: 40 mg Documented by: Phenobarbital (Phenobarbital Liquid -) 60 mg GT BID [facility] Last Admin: 07/21/19 09:47 Dose: 60 mg Documented by: Polyethylene Glycol (Miralax (For Daily Use) -) 17 gm PO BID [facility] Last Admin: 07/20/19 21:02 Dose: 17 gm Documented by: Potassium Chloride (Potassium Chloride Oral Liquid) 40 meq PO DAILY [facility] Potassium Phos/Sodium Phos (Phos-Nak Packet -) 1 packet PO TID [facility] Last Admin: 07/21/19 05:55 Dose: 1 packet Documented by: Spironolactone (Aldactone -) 50 mg PO DAILY [facility] Last Admin: 07/21/19 09:45 Dose: 50 mg Documented by: Topiramate (Topamax -) 200 mg PO TID [facility] Last Admin: 07/21/19 05:52 Dose: 200 mg Documented by: Zinc Sulfate (Orazinc -) 220 mg PO BID [facility] Last Admin: 07/21/19 09:47 Dose: 220 mg Documented by: Gen: intubated, sedated Heart: RRR Lung: scattered rhonchi Abd: soft, nontender Ext: no edema Laboratory Results - last 24 hr 07/19/19 07/20/19 07/20/19 11:30 11:25 15:25 WBC RBC Hgb Hct MCV MCH MCHC RDW Plt Count MPV Absolute Neuts (auto) Neutrophils % Neutrophils % (Manual) Band Neutrophils % Lymphocytes % Lymphocytes % (Manual) Monocytes % Monocytes % (Manual) Eosinophils % Eosinophils % (Manual) Basophils % Basophils % (Manual) Myelocytes % (Man) Promyelocytes % (Man) Blast Cells % (Manual) Nucleated RBC % Metamyelocytes Hypochromia Platelet Estimate Polychromasia Poikilocytosis Basophilic Stippling Anisocytosis Microcytosis Macrocytosis Spherocytes Target Cells Tear Drop Cells Stomatocytes Anticoagulation Therapy Puncture Site ABG pH ABG pCO2 at Pt Temp ABG pO2 at Pt Temp ABG HCO3 ABG O2 Sat (Measured) ABG O2 Content ABG Base Excess Yousuf Test Patient On Oxygen O2 Delivery Device Oxygen Flow Rate Vent Mode Vent Rate Mechanical Rate Pressure Support Vent Sodium 143 Potassium 2.6 L* Chloride 93 L Carbon Dioxide > 45 H Anion Gap 5 L BUN 8.4 Creatinine 0.2 L Est GFR (CKD-EPI)AfAm 233.83 Est GFR (CKD-EPI)NonAf 201.75 POC Glucometer Random Glucose 150 H Calcium 7.1 L Phosphorus Magnesium Total Bilirubin AST ALT Alkaline Phosphatase Total Protein Albumin Vancomycin Pre-Dose 20.0 H COVID-19 ([facility]) Not detected 07/20/19 07/20/19 07/21/19 16:26 20:35 06:40 WBC 7.8 RBC 3.20 L Hgb 9.9 L Hct 29.8 L MCV 93.0 MCH 31.1 MCHC 33.4 RDW 18.2 H Plt Count 130 L MPV 8.8 Absolute Neuts (auto) 3.6 Neutrophils % 46.2 D Neutrophils % (Manual) 28.4 L D Band Neutrophils % 12.6 Lymphocytes % 19.5 Lymphocytes % (Manual) 21.1 D Monocytes % 10.8 H Monocytes % (Manual) 8 Eosinophils % 22.8 H* D Eosinophils % (Manual) 26.3 H D Basophils % 0.7 Basophils % (Manual) 0.0 Myelocytes % (Man) 0 Promyelocytes % (Man) 0 Blast Cells % (Manual) 0 Nucleated RBC % 0 Metamyelocytes 0 D Hypochromia 0 Platelet Estimate Decreased Polychromasia 1+ Poikilocytosis 1+ Basophilic Stippling 1+ Anisocytosis 1+ Microcytosis 1+ Macrocytosis 0 Spherocytes 1+ Target Cells 1+ Tear Drop Cells 1+ Stomatocytes 1+ Anticoagulation Therapy Puncture Site ABG pH ABG pCO2 at Pt Temp ABG pO2 at Pt Temp ABG HCO3 ABG O2 Sat (Measured) ABG O2 Content ABG Base Excess Yousuf Test Patient On Oxygen O2 Delivery Device Oxygen Flow Rate Vent Mode Vent Rate Mechanical Rate Pressure Support Vent Sodium 141 Potassium 3.1 L Chloride 92 L Carbon Dioxide > 45 H Anion Gap 4 L BUN 9.6 Creatinine 0.2 L Est GFR (CKD-EPI)AfAm 233.83 Est GFR (CKD-EPI)NonAf 201.75 POC Glucometer 133 Random Glucose 113 H Calcium 7.3 L Phosphorus 3.0 Magnesium 2.1 Total Bilirubin AST ALT Alkaline Phosphatase Total Protein Albumin Vancomycin Pre-Dose COVID-19 ([facility]) 07/21/19 07/21/19 06:40 09:55 WBC RBC Hgb Hct MCV MCH MCHC RDW Plt Count MPV Absolute Neuts (auto) Neutrophils % Neutrophils % (Manual) Band Neutrophils % Lymphocytes % Lymphocytes % (Manual) Monocytes % Monocytes % (Manual) Eosinophils % Eosinophils % (Manual) Basophils % Basophils % (Manual) Myelocytes % (Man) Promyelocytes % (Man) Blast Cells % (Manual) Nucleated RBC % Metamyelocytes Hypochromia Platelet Estimate Polychromasia Poikilocytosis Basophilic Stippling Anisocytosis Microcytosis Macrocytosis Spherocytes Target Cells Tear Drop Cells Stomatocytes Anticoagulation Therapy No Result Required. Puncture Site Arterial line ABG pH 7.38 ABG pCO2 at Pt Temp 87.3 H* ABG pO2 at Pt Temp 163 H ABG HCO3 50.1 H ABG O2 Sat (Measured) 98.9 H ABG O2 Content No Result Required. ABG Base Excess 21.2 H Yousuf Test No Result Required. Patient On Oxygen Yes O2 Delivery Device No Result Required. Oxygen Flow Rate 100 Vent Mode No Result Required. Vent Rate 35 Mechanical Rate No Result Required. Pressure Support Vent 280 Sodium 141 Potassium 3.6 Chloride 91 L Carbon Dioxide > 45 H Anion Gap 5 L BUN 8.7 Creatinine 0.2 L Est GFR (CKD-EPI)AfAm 233.83 Est GFR (CKD-EPI)NonAf 201.75 POC Glucometer Random Glucose 124 H Calcium 7.1 L Phosphorus 2.4 L Magnesium 2.0 Total Bilirubin 0.3 AST 44 H ALT 36 Alkaline Phosphatase 119 H Total Protein 4.4 L Albumin 1.9 L Vancomycin Pre-Dose COVID-19 ([facility]) ASSESSMENT AND PLAN: Acute Hypoxic and Hypercapneic Respiratory Failure COVID19 Pneumonia E Coli Pneumonia Fungenmia Bacteremia Septic Shock Seizure Disorder Mental Retardation - continue antibiotics, antifungals per ID - f/u pending cultures - pressors if MAP < 65 - continue antiepileptics - ECHO to R/O Endocarditis - low tidal volume ventilation - titrate FiO2, PEEP to keep SpO2 >90% - sedate for vent synchrony - enteral feeds - DVT/GI prophylaxis - continue ICU monitoring Family meeting for GOC. Dr Callaway Critical care time spent in reviewing chart, evaluating patient and formulating plan 35 min
[2019-07-21] MEDS: FUROSEMIDE INJECTION 100 MG in DEXTROSE 5%-WATER - 90 ML IVPB SCH ×2 (13:37→22:01)
[2019-07-21] MEDS: POLYETHYLENE GLYCOL 3350 119 GM BTL PO SCH ×2 (13:37→22:00)
--- NOTE | 2019-07-21 13:51 | PN ---
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 (short form) - Note 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: remains intubated afebrile off pressors Vital Signs Period Temp Pulse Resp BP Sys/Ortiz Pulse Ox Last 24 Hr 97 F-97.8 F 87-103 35-35 85-108/48-59 99-100 cor-rrr lungs decreased bs at bases abd soft,nt ext no edema cxray improved CBC, BMP 07/21/19 06:40 07/21/19 06:40 Microbiology 07/18/19 21:10 Blood - Peripheral Venous Blood Culture - Preliminary NO GROWTH OBTAINED AFTER 48 HOURS, INCUBATION TO CONTINUE FOR 3 DAYS. 07/18/19 18:30 Blood - Peripheral Venous Blood Culture - Preliminary NO GROWTH OBTAINED AFTER 48 HOURS, INCUBATION TO CONTINUE FOR 3 DAYS. 07/15/19 12:25 Blood - Peripheral Venous Blood Culture - Final NO GROWTH AFTER 5 DAYS INCUBATION 07/16/19 15:15 Blood - Peripheral Venous Blood Culture - Final Staphylococcus Epidermidis 07/14/19 11:30 Blood - Peripheral Venous Blood Culture - Final NO GROWTH AFTER 5 DAYS INCUBATION 07/16/19 15:05 Blood - Peripheral Venous Blood Culture - Final Staphylococcus Epidermidis 07/16/19 12:30 Sputum - Endotrachea Suction/Ventilator Gram Stain - Final 07/16/19 12:30 Sputum - Endotrachea Suction/Ventilator Sputum Culture - Final S Aureus Escherichia Coli 07/12/19 10:55 Blood - Peripheral Venous Blood Culture - Final NO GROWTH AFTER 5 DAYS INCUBATION 07/16/19 12:30 Urine - Urine - Catheterized Urine Culture - Final NO GROWTH OBTAINED 07/12/19 06:00 Sputum - Endotrachea Suction/Ventilator Gram Stain - Final 07/12/19 06:00 Sputum - Endotrachea Suction/Ventilator Sputum Culture - Final 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 S Aureus 07/12/19 11:04 Blood - Peripheral Venous Blood Culture - Final 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 07/12/19 11:04 Blood - Peripheral Venous Yeast/Fungus Identification - Preliminary 07/01/19 18:15 Blood - Peripheral Venous Blood Culture - Final NO GROWTH AFTER 5 DAYS INCUBATION 06/29/19 12:30 Blood - Peripheral Venous Blood Culture - Final Staphylococcus Epidermidis 06/30/19 17:15 Sputum - Endotrachea Suction/Ventilator Gram Stain - Final 06/30/19 17:15 Sputum - Endotrachea Suction/Ventilator Sputum Culture - Final Escherichia Coli Esbl Director Of Sustainability 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 06/28/19 09:00 Blood - Peripheral Venous Blood Culture - Final Staphylococcus Epidermidis 06/28/19 12:50 Sputum - Endotrachea Suction/Ventilator Gram Stain - Final 06/28/19 12:50 Sputum - Endotrachea Suction/Ventilator Sputum Culture - Final 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 Staphylococcus Aureus 06/25/19 13:40 Blood - Peripheral Venous Blood Culture - Final NO GROWTH AFTER 5 DAYS INCUBATION 06/25/19 13:20 Blood - Peripheral Venous Blood Culture - Final NO GROWTH AFTER 5 DAYS INCUBATION 06/28/19 12:51 Urine - Urine Caceres Urine Culture - Final NO GROWTH OBTAINED 06/22/19 13:00 Blood - Peripheral Venous Blood Culture - Final Staphylococcus Warneri 06/22/19 13:00 Blood - Peripheral Venous Blood Culture - Final Staphylococcus Epidermidis 06/24/19 00:01 Urine - Urine Caceres Urine Culture - Final NO GROWTH OBTAINED 06/24/19 00:01 Urine For Antigen Detection Legionella Antigen - Final 06/24/19 00:01 Urine For Antigen Detection Streptococcus pneumoniae Antigen (M - Final covid pcr negative (repeat) quantiferon negative imp/reccd ARDS bacteremia- recurrent staph epi bacteremia- ?endocarditis- check echo fungemia- continue cancidas day #7 central line changed covid 19 positive -repeat pcr s/p convalescent plasma s/p tocilizumab MRSA isolation for sputum culture- esbl isolation continue vanco/meropenem/cancidas echo overall prognosis is guarded Problem List - Problems (1) Suspected COVID-19 virus infection Code(s): R68.89 - OTHER GENERAL SYMPTOMS AND SIGNS (2) Acute respiratory failure with hypoxia Code(s): J96.01 - ACUTE RESPIRATORY FAILURE WITH HYPOXIA (3) Bacteremia Code(s): R78.81 - BACTEREMIA
[2019-07-21] MEDS ORDERED: MIDAZOLAM IN 0.9 % SOD.CHLORID 1 MG/1 ML PLAST..BAG ONE (14:16)
[2019-07-21] MEDS: POTASSIUM CHLORIDE ORAL LIQUID 20 MEQ/15 ML PO SCH (14:20)
--- NOTE | 2019-07-21 15:36 | ECHO ---
Version: 1 Name: YON MAYA Exam: Adult Echocardiogram Study Date: 07/21/2019, 2:24 PM Age: 38 Years MMode/2D Measurements & Calculations IVSd: 0.69 cm LVIDs: 2.9 cm LVIDd: 4.5 cm LVPWd: 0.87 cm LVOT diam: 2.00 cm Ao root diam: 2.10 cm LA dimension: 2.5 cm Doppler Measurements & Calculations MV E max chris: 81.5 cm/sec Med E/e': 10.3 MV A max chris: 58.7 cm/sec Med Peak E' Chris: 7.9 cm/sec MV E/A: 1.39 Lat E/e': 6.6 Lat Peak E' Chris: 12.4 cm/sec Ao max P.3 mmHg Ao V2 max: 168.3 cm/sec TR max chris: 225.3 cm/sec TR max P.3 mmHg Procedure A two-dimensional transthoracic echocardiogram with color flow and Doppler was performed. The study was technically difficult with many images being suboptimal in quality. The patient was in normal sinus rhythm during the exam. Left Ventricle Left ventricular systolic function is normal. Ejection Fraction = 65. Left Ventricular Filling patte rn is normal for age. Right Ventricle The right ventricle is not well visualized. The right ventricle is grossly normal size. The right ve ntricular systolic function is grossly normal. Atria The left atrial size is normal. Mitral Valve The mitral valve is normal. There is trace mitral regurgitation. Tricuspid Valve The tricuspid valve is normal. There is mild tricuspid regurgitation. Right ventricular systolic pre ssure is normal. Aortic Valve The aortic valve is normal in structure and function. No aortic regurgitation is present. Pulmonic Valve The pulmonic valve is not well seen, but is grossly normal. There is no pulmonic valvular regurgitat ion. Great Vessels The aortic root is normal size. Pericardium/Pleura There is no pericardial effusion. Summary Statements Left ventricular systolic function is normal. The right ventricular systolic function is grossly normal. There is trace mitral regurgitation. There is mild tricuspid regurgitation. There is no pericardial effusion. MD Bang Yates 07/21/2019, 3:35 PM Ordering Physician: Marjorie Saucedo Performed By: Jessica Lo
--- NOTE | 2019-07-21 16:15 | PN ---
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, Physician History of Present Illness: Pt seen and examined at bedside. He remains on vent. - Current Medication List Current Medications: Active Medications Acetaminophen (Ofirmev Injection -) 1,000 mg IVPB Q6H PRN PRN Reason: FEVER Last Admin: 07/19/19 15:18 Dose: 1,000 mg Documented by: Amino Acids (Prosource No Carb Liquid Pkt) 30 ml PO BID@0800,1730 [facility] Last Admin: 07/21/19 09:45 Dose: 30 ml Documented by: Ascorbic Acid (Vitamin C -) 500 mg PO DAILY [facility] Last Admin: 07/21/19 09:46 Dose: 500 mg Documented by: Chlorhexidine Gluconate (Hibiclens For Decolonization -) 1 applic TP HS [facility] Last Admin: 07/20/19 21:02 Dose: 1 applic Documented by: Cholecalciferol (Vitamin D3 -) 800 unit PO DAILY [facility] Last Admin: 07/21/19 09:46 Dose: 800 unit Documented by: Enoxaparin Sodium (Lovenox -) 80 mg SQ Q12H [facility] Last Admin: 07/21/19 09:45 Dose: 80 mg Documented by: IV Flush (Triple Lumen Flush) 4 ml IVPUSH PRN PRN PRN Reason: Protocol Propofol (Diprivan -) 1,000,000 mcg in 100 mls @ 2.313 mls/hr IVPB TITR [facility]; Protocol Last Admin: 07/21/19 02:33 Dose: 30 mcg/kg/min, 13.88 mls/hr Documented by: Morphine Sulfate (Morphine 100mg/100ml-0.9% Nacl) 100 mg in 100 mls @ 1 mls/hr IVPB TITR [facility]; Protocol Last Admin: 07/21/19 03:46 Dose: 10 mg/hr, 10 mls/hr Documented by: Caspofungin 50 mg/ Sodium (Chloride) 250 mls @ 250 mls/hr IVPB Q24H [facility] Last Admin: 07/21/19 09:22 Dose: 250 mls/hr Documented by: Midazolam HCl (Versed -) 100 mg in 100 mls @ 1 mls/hr IVPB TITR [facility]; Protocol Last Infusion: 07/21/19 03:47 Dose: 7 mg/hr, 7 mls/hr Documented by: Meropenem 1 gm/ Dextrose 100 mls @ 200 mls/hr IVPB Q8H-IV [facility] Last Admin: 07/21/19 09:48 Dose: 200 mls/hr Documented by: Vecuronium Steele (Vecuronium Steele) 100 mg in 100 mls @ 5.226 mls/hr IVPB TITR [facility]; Protocol Last Titration: 07/21/19 14:28 Dose: 1 mcg/kg/min, 5.226 mls/hr Documented by: Furosemide 100 mg/ Dextrose 100 mls @ 10 mls/hr IVPB TITR [facility]; Protocol Last Admin: 07/21/19 13:37 Dose: 10 mg/hr, 10 mls/hr Documented by: Vancomycin HCl 1,500 mg/ (Dextrose) 500 mls @ 250 mls/hr IVPB Q12H [facility]; Protocol Last Admin: 07/21/19 14:21 Dose: 250 mls/hr Documented by: Lacosamide (Vimpat Injection -) 200 mg IVPB BID [facility] Last Admin: 07/21/19 09:46 Dose: 200 mg Documented by: Levetiracetam (Keppra Injection -) 1,000 mg IVPB BID [facility] Last Admin: 07/21/19 09:49 Dose: 1,000 mg Documented by: Pantoprazole Sodium (Protonix Iv) 40 mg IVPUSH DAILY [facility] Last Admin: 07/21/19 09:45 Dose: 40 mg Documented by: Phenobarbital (Phenobarbital Liquid -) 60 mg GT BID [facility] Last Admin: 07/21/19 09:47 Dose: 60 mg Documented by: Polyethylene Glycol (Miralax (For Daily Use) -) 17 gm PO BID [facility] Last Admin: 07/21/19 13:37 Dose: Not Given Documented by: Potassium Chloride (Potassium Chloride Oral Liquid) 40 meq PO DAILY [facility] Last Admin: 07/21/19 14:20 Dose: 40 meq Documented by: Potassium Phos/Sodium Phos (Phos-Nak Packet -) 1 packet PO TID [facility] Last Admin: 07/21/19 14:28 Dose: 1 packet Documented by: Spironolactone (Aldactone -) 50 mg PO DAILY [facility] Last Admin: 07/21/19 09:45 Dose: 50 mg Documented by: Topiramate (Topamax -) 200 mg PO TID [facility] Last Admin: 07/21/19 14:22 Dose: 200 mg Documented by: Zinc Sulfate (Orazinc -) 220 mg PO BID [facility] Last Admin: 07/21/19 09:47 Dose: 220 mg Documented by: - Objective Vital Signs: Vital Signs Temperature 97 F L 07/21/19 14:00 Pulse Rate 95 H 07/21/19 14:00 Respiratory Rate 35 H 07/21/19 16:09 Blood Pressure 100/53 L 07/21/19 14:00 O2 Sat by Pulse Oximetry (%) 100 07/21/19 16:09 Constitutional: Yes: Calm Eyes: Yes: Conjunctiva Clear HENT: Yes: Atraumatic Neck: Yes: Supple Cardiovascular: Yes: S1, S2 Respiratory: Yes: Mechanically Ventilated Gastrointestinal: Yes: Soft Genitourinary: Yes: Caceres Present Edema: Yes Edema: LLE: 1+, RLE: 1+ Neurological: Yes: Lethargy Labs: CBC, BMP 07/21/19 06:40 07/21/19 06:40 INR, PTT INR 1.06 (0.83-1.09) 07/19/19 09:04 Problem List - Problems (1) Hypernatremia Code(s): E87.0 - HYPEROSMOLALITY AND HYPERNATREMIA (2) Hypokalemia Code(s): E87.6 - HYPOKALEMIA (3) Acute respiratory failure with hypoxia Code(s): J96.01 - ACUTE RESPIRATORY FAILURE WITH HYPOXIA (4) Bacteremia Code(s): R78.81 - BACTEREMIA Assessment/Plan Current Medications Generic Name Dose Route Start Last Admin Trade Name Freq PRN Reason Stop Dose Admin Acetaminophen 1,000 mg 07/16/19 06:09 07/19/19 15:18 Ofirmev Injection - IVPB 1,000 mg Q6H PRN Administration FEVER Amino Acids 30 ml 07/06/19 17:30 07/21/19 09:45 Prosource No Carb Liquid Pkt PO 30 ml BID@0800,1730 [facility] Administration Ascorbic Acid 500 mg 07/08/19 11:00 07/21/19 09:46 Vitamin C - PO 500 mg DAILY [facility] Administration Chlorhexidine Gluconate 1 applic 06/22/19 22:00 07/20/19 21:02 Hibiclens For Decolonization - TP 1 applic HS [facility] Administration Cholecalciferol 800 unit 07/03/19 16:00 07/21/19 09:46 Vitamin D3 - PO 800 unit DAILY [facility] Administration Enoxaparin Sodium 80 mg 07/05/19 08:00 07/21/19 09:45 Lovenox - SQ 80 mg Q12H [facility] Administration IV Flush 4 ml 07/18/19 18:26 Triple Lumen Flush IVPUSH PRN PRN Protocol Propofol 1,000,000 mcg in 100 mls @ 2.313 mls/hr 06/22/19 14:00 07/21/19 02:33 Diprivan - IVPB 30 mcg/kg/min TITR [facility] 13.88 mls/hr Administration Protocol 5 MCG/KG/MIN Morphine Sulfate 100 mg in 100 mls @ 1 mls/hr 06/22/19 21:30 07/21/19 03:46 Morphine 100mg/100ml-0.9% Nacl IVPB 10 mg/hr TITR [facility] 10 mls/hr Administration Protocol 1 MG/HR Caspofungin 50 mg/ Sodium 250 mls @ 250 mls/hr 07/14/19 10:00 07/21/19 09:22 Chloride IVPB 250 mls/hr Q24H [facility] Administration Midazolam HCl 100 mg in 100 mls @ 1 mls/hr 07/15/19 22:15 07/21/19 03:47 Versed - IVPB 7 mg/hr TITR [facility] 7 mls/hr Infusion Protocol 1 MG/HR Meropenem 1 gm/ Dextrose 100 mls @ 200 mls/hr 07/16/19 11:00 07/21/19 09:48 IVPB 200 mls/hr Q8H-IV [facility] Administration Vecuronium Steele 100 mg in 100 mls @ 5.226 mls/hr 07/17/19 11:15 07/21/19 14:28 Vecuronium Steele IVPB 1 mcg/kg/min TITR [facility] 5.226 mls/hr Titration Protocol 1 MCG/KG/MIN Furosemide 100 mg/ Dextrose 100 mls @ 10 mls/hr 07/19/19 10:15 07/21/19 13:37 IVPB 10 mg/hr TITR [facility] 10 mls/hr Administration Protocol 10 MG/HR Vancomycin HCl 1,500 mg/ 500 mls @ 250 mls/hr 07/21/19 02:00 07/21/19 14:21 Dextrose IVPB 250 mls/hr Q12H [facility] Administration Protocol Lacosamide 200 mg 06/23/19 10:00 07/21/19 09:46 Vimpat Injection - IVPB 200 mg BID [facility] Administration Levetiracetam 1,000 mg 06/23/19 10:00 07/21/19 09:49 Keppra Injection - IVPB 1,000 mg BID [facility] Administration Pantoprazole Sodium 40 mg 06/24/19 10:00 07/21/19 09:45 Protonix Iv IVPUSH 40 mg DAILY [facility] Administration Phenobarbital 60 mg 06/28/19 10:00 07/21/19 09:47 Phenobarbital Liquid - GT 60 mg BID [facility] Administration Polyethylene Glycol 17 gm 07/18/19 22:00 07/21/19 13:37 Miralax (For Daily Use) - PO Not Given BID [facility] Potassium Chloride 40 meq 07/21/19 10:45 07/21/19 14:20 Potassium Chloride Oral Liquid PO 40 meq DAILY [facility] Administration Potassium Phos/Sodium Phos 1 packet 07/20/19 14:00 07/21/19 14:28 Phos-Nak Packet - PO 1 packet TID [facility] Administration Spironolactone 50 mg 07/19/19 10:00 07/21/19 09:45 Aldactone - PO 50 mg DAILY [facility] Administration Topiramate 200 mg 06/23/19 14:00 07/21/19 14:22 Topamax - PO 200 mg TID [facility] Administration Zinc Sulfate 220 mg 06/23/19 22:00 07/21/19 09:47 Orazinc - PO 220 mg BID [facility] Administration Impression 1. hypokalemia 2. hypernatremia 3. resp failure 4. fungemia 5. covid 19 infection 6. ards 7. developemental delay 8. epilepsy 9. bactermia Plan - potassium improved - monitor lytes - repeat labs in am - vent support - lasix as needed
[2019-07-21 19:35] LABS: URINE APPEARANCE CLEAR; URINE BILIRUBIN NEGATIVE (NEGATIVE); URINE COLOR DK YELLOW; URINE GLUCOSE (UA) NEGATIVE (NEGATIVE); URINE KETONE NEGATIVE (NEGATIVE); URINE LEUK ESTERASE NEGATIVE (NEGATIVE); URINE NITRITE NEGATIVE (NEGATIVE); URINE PROTEIN NEGATIVE (NEGATIVE); URINE UROBILINOGEN 4.0 E.U/dl mg/dL (0.2-1.0)
[2019-07-21] MEDS: CHLORHEXIDINE GLUCONATE 4% CLEANSER FOR DECOLONIZATION TP SCH (22:00)
[2019-07-22] MEDS: MEROPENEM 1 GM in DEXTROSE 5%-WATER 100 ML IVPB SCH ×3 (01:04→17:46)
[2019-07-22] MEDS ORDERED: DEXTROSE 5%-WATER 100 ML IVPB ONE ×3 (01:06→17:41)
[2019-07-22] MEDS ORDERED: MIDAZOLAM IN 0.9 % SOD.CHLORID 1 MG/1 ML PLAST..BAG ONE ×2 (01:06→15:28)
[2019-07-22] MEDS ORDERED: MEROPENEM 1 GM VIAL (RESTRICTED TO ID) IVPB ONE ×3 (01:06→17:41)
[2019-07-22] MEDS: VANCOMYCIN HCL 1,500 MG in DEXTROSE 5%-WATER - 500 ML IVPB SCH ×2 (02:16→14:52)
[2019-07-22] MEDS: PROPOFOL 1,000,000 MCG/100 ML VIAL IVPB SCH (02:16)
[2019-07-22] MEDS: VECURONIUM BROMIDE 100 MG/100 ML BAG IVPB SCH (06:18)
[2019-07-22] MEDS: TOPIRAMATE 200 MG TABLET PO SCH ×3 (06:18→22:17)
[2019-07-22] MEDS: FUROSEMIDE INJECTION 100 MG in DEXTROSE 5%-WATER - 90 ML IVPB SCH ×2 (06:18→19:07)
[2019-07-22] MEDS: NAPH,MB-DB/K PH,MBDB POWDER PACKET PO SCH ×3 (06:18→21:48)
[2019-07-22 07:04] LABS: POTASSIUM 3.5 mmol/L (3.5-5.1)
[2019-07-22] MEDS: ENOXAPARIN NA (PORCINE) 80 MG/0.8 ML DISP.SYRIN SQ SCH ×2 (09:15→21:47)
[2019-07-22] MEDS ORDERED: PT OWN MED DRAWER 7, Y5N ONE ×3 (09:38→17:40)
[2019-07-22] MEDS: SPIRONOLACTONE 25 MG TABLET PO SCH (09:46)
[2019-07-22] MEDS: KCL 10 MEQ IVPB 10 MEQ/100 ML INFUS.BAG IVPB SCH ×2 (09:47→11:47)
[2019-07-22] MEDS: ZINC SULFATE 220 MG CAPSULE (FP) PO SCH ×2 (09:50→21:47)
[2019-07-22] MEDS: CASPOFUNGIN ACETATE 50 MG in SODIUM CHLORIDE 250 ML IVPB SCH (10:46)
[2019-07-22] MEDS: levETIRAcetam 500 MG/5 ML INJECTION VIAL IVPB SCH ×2 (10:46→21:47)
--- NOTE | 2019-07-22 10:48 | PN ---
Problem List - Problems (1) Suspected COVID-19 virus infection Code(s): R68.89 - OTHER GENERAL SYMPTOMS AND SIGNS (2) Acute respiratory failure with hypoxia Code(s): J96.01 - ACUTE RESPIRATORY FAILURE WITH HYPOXIA (3) Bacteremia Code(s): R78.81 - BACTEREMIA
[2019-07-22] MEDS: PHENobarbital 20 MG/5 ML UNIT-DOSE CUP GT SCH ×2 (10:49→21:47)
[2019-07-22] MEDS: PANTOPRAZOLE SODIUM 40 MG VIAL IVPUSH SCH (10:50)
[2019-07-22] MEDS: ASCORBIC ACID 500 MG TABLET (FP) PO SCH (10:50)
[2019-07-22] MEDS: POTASSIUM CHLORIDE ORAL LIQUID 20 MEQ/15 ML PO SCH (10:50)
[2019-07-22] MEDS: CHOLECALCIFEROL (VIT D3) 400 UNIT (10 MCG) TABLET PO SCH (10:50)
[2019-07-22] MEDS: Lacosamide 200 MG/20 ML VIAL IVPB SCH ×2 (10:50→21:48)
--- NOTE | 2019-07-22 11:11 | PN ---
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, Physician History of Present Illness: Pt seen and examined at bedside. He remains in the ICU. He remains intubated. - Current Medication List Current Medications: Active Medications Acetaminophen (Ofirmev Injection -) 1,000 mg IVPB Q6H PRN PRN Reason: FEVER Last Admin: 07/19/19 15:18 Dose: 1,000 mg Documented by: Amino Acids (Prosource No Carb Liquid Pkt) 30 ml PO BID@0800,1730 [facility] Last Admin: 07/21/19 17:33 Dose: 30 ml Documented by: Ascorbic Acid (Vitamin C -) 500 mg PO DAILY [facility] Last Admin: 07/21/19 09:46 Dose: 500 mg Documented by: Chlorhexidine Gluconate (Hibiclens For Decolonization -) 1 applic TP HS [facility] Last Admin: 07/21/19 22:00 Dose: 1 applic Documented by: Cholecalciferol (Vitamin D3 -) 800 unit PO DAILY [facility] Last Admin: 07/21/19 09:46 Dose: 800 unit Documented by: Enoxaparin Sodium (Lovenox -) 80 mg SQ Q12H [facility] Last Admin: 07/21/19 22:00 Dose: 80 mg Documented by: IV Flush (Triple Lumen Flush) 4 ml IVPUSH PRN PRN PRN Reason: Protocol Propofol (Diprivan -) 1,000,000 mcg in 100 mls @ 2.313 mls/hr IVPB TITR [facility]; Protocol Last Titration: 07/22/19 09:04 Dose: 30 mcg/kg/min, 13.88 mls/hr Documented by: Morphine Sulfate (Morphine 100mg/100ml-0.9% Nacl) 100 mg in 100 mls @ 1 mls/hr IVPB TITR [facility]; Protocol Last Admin: 07/21/19 21:59 Dose: 10 mg/hr, 10 mls/hr Documented by: Caspofungin 50 mg/ Sodium (Chloride) 250 mls @ 250 mls/hr IVPB Q24H [facility] Last Admin: 07/21/19 09:22 Dose: 250 mls/hr Documented by: Midazolam HCl (Versed -) 100 mg in 100 mls @ 1 mls/hr IVPB TITR [facility]; Protocol Last Infusion: 07/21/19 03:47 Dose: 7 mg/hr, 7 mls/hr Documented by: Meropenem 1 gm/ Dextrose 100 mls @ 200 mls/hr IVPB Q8H-IV [facility] Last Admin: 07/22/19 01:04 Dose: 200 mls/hr Documented by: Vecuronium [place] (Vecuronium [place]) 100 mg in 100 mls @ 5.226 mls/hr IVPB TITR [facility]; Protocol Last Admin: 07/22/19 06:18 Dose: 1 mcg/kg/min, 5.226 mls/hr Documented by: Furosemide 100 mg/ Dextrose 100 mls @ 10 mls/hr IVPB TITR [facility]; Protocol Last Admin: 07/22/19 06:18 Dose: 10 mg/hr, 10 mls/hr Documented by: Vancomycin HCl 1,500 mg/ (Dextrose) 500 mls @ 250 mls/hr IVPB Q12H [facility]; Protocol Last Admin: 07/22/19 02:16 Dose: 250 mls/hr Documented by: Lacosamide (Vimpat Injection -) 200 mg IVPB BID [facility] Last Admin: 07/21/19 22:01 Dose: 200 mg Documented by: Levetiracetam (Keppra Injection -) 1,000 mg IVPB BID [facility] Last Admin: 07/21/19 22:00 Dose: 1,000 mg Documented by: Pantoprazole Sodium (Protonix Iv) 40 mg IVPUSH DAILY [facility] Last Admin: 07/21/19 09:45 Dose: 40 mg Documented by: Phenobarbital (Phenobarbital Liquid -) 60 mg GT BID [facility] Last Admin: 07/21/19 22:01 Dose: 60 mg Documented by: Polyethylene Glycol (Miralax (For Daily Use) -) 17 gm PO BID [facility] Last Admin: 07/21/19 22:00 Dose: 17 gm Documented by: Potassium Chloride (Potassium Chloride Oral Liquid) 40 meq PO DAILY [facility] Last Admin: 07/21/19 14:20 Dose: 40 meq Documented by: Potassium Phos/Sodium Phos (Phos-Nak Packet -) 1 packet PO TID [facility] Last Admin: 07/22/19 06:18 Dose: 1 packet Documented by: Spironolactone (Aldactone -) 50 mg PO DAILY [facility] Last Admin: 07/21/19 09:45 Dose: 50 mg Documented by: Topiramate (Topamax -) 200 mg PO TID [facility] Last Admin: 07/22/19 06:18 Dose: 200 mg Documented by: Zinc Sulfate (Orazinc -) 220 mg PO BID [facility] Last Admin: 07/21/19 22:01 Dose: 220 mg Documented by: - Objective Vital Signs: Vital Signs Temperature 98.1 F 07/22/19 10:00 Pulse Rate 103 H 07/22/19 10:00 Respiratory Rate 31 H 07/22/19 10:00 Blood Pressure 112/59 L 07/22/19 10:00 O2 Sat by Pulse Oximetry (%) 100 07/22/19 09:00 Constitutional: Yes: Calm Eyes: Yes: Conjunctiva Clear HENT: Yes: Atraumatic Cardiovascular: Yes: S1, S2 Respiratory: Yes: Mechanically Ventilated Gastrointestinal: Yes: Soft Genitourinary: Yes: Caceres Present Musculoskeletal: Yes: Muscle Weakness Edema: Yes Edema: LUE: Trace, RUE: Trace, LLE: 1+, RLE: 1+ Neurological: Yes: Lethargy Labs: CBC, BMP 07/21/19 06:40 07/22/19 06:00 INR, PTT INR 1.06 (0.83-1.09) 07/19/19 09:04 Problem List - Problems (1) Hypernatremia Code(s): E87.0 - HYPEROSMOLALITY AND HYPERNATREMIA (2) Hypokalemia Code(s): E87.6 - HYPOKALEMIA (3) Acute respiratory failure with hypoxia Code(s): J96.01 - ACUTE RESPIRATORY FAILURE WITH HYPOXIA (4) Bacteremia Code(s): R78.81 - BACTEREMIA Assessment/Plan Current Medications Generic Name Dose Route Start Last Admin Trade Name Robin PRN Reason Stop Dose Admin Acetaminophen 1,000 mg 07/16/19 06:09 07/19/19 15:18 Ofirmev Injection - IVPB 1,000 mg Q6H PRN Administration FEVER Amino Acids 30 ml 07/06/19 17:30 07/21/19 17:33 Prosource No Carb Liquid Pkt PO 30 ml BID@0800,1730 [facility] Administration Ascorbic Acid 500 mg 07/08/19 11:00 07/21/19 09:46 Vitamin C - PO 500 mg DAILY [facility] Administration Chlorhexidine Gluconate 1 applic 06/22/19 22:00 07/21/19 22:00 Hibiclens For Decolonization - TP 1 applic HS [facility] Administration Cholecalciferol 800 unit 07/03/19 16:00 07/21/19 09:46 Vitamin D3 - PO 800 unit DAILY [facility] Administration Enoxaparin Sodium 80 mg 07/05/19 08:00 07/21/19 22:00 Lovenox - SQ 80 mg Q12H [facility] Administration IV Flush 4 ml 07/18/19 18:26 Triple Lumen Flush IVPUSH PRN PRN Protocol Propofol 1,000,000 mcg in 100 mls @ 2.313 mls/hr 06/22/19 14:00 07/22/19 09:0 4 Diprivan - IVPB 30 mcg/kg/min TITR [facility] 13.88 mls/hr Titration Protocol 5 MCG/KG/MIN Morphine Sulfate 100 mg in 100 mls @ 1 mls/hr 06/22/19 21:30 07/21/19 21:59 Morphine 100mg/100ml-0.9% Nacl IVPB 10 mg/hr TITR [facility] 10 mls/hr Administration Protocol 1 MG/HR Caspofungin 50 mg/ Sodium 250 mls @ 250 mls/hr 07/14/19 10:00 07/21/19 09:22 Chloride IVPB 250 mls/hr Q24H [facility] Administration Midazolam HCl 100 mg in 100 mls @ 1 mls/hr 07/15/19 22:15 07/21/19 03:47 Versed - IVPB 7 mg/hr TITR [facility] 7 mls/hr Infusion Protocol 1 MG/HR Meropenem 1 gm/ Dextrose 100 mls @ 200 mls/hr 07/16/19 11:00 07/22/19 01:04 IVPB 200 mls/hr Q8H-IV [facility] Administration Vecuronium [place] 100 mg in 100 mls @ 5.226 mls/hr 07/17/19 11:15 07/22/19 06:18 Vecuronium [place] IVPB 1 mcg/kg/min TITR [facility] 5.226 mls/hr Administration Protocol 1 MCG/KG/MIN Furosemide 100 mg/ Dextrose 100 mls @ 10 mls/hr 07/19/19 10:15 07/22/19 06:18 IVPB 10 mg/hr TITR [facility] 10 mls/hr Administration Protocol 10 MG/HR Vancomycin HCl 1,500 mg/ 500 mls @ 250 mls/hr 07/21/19 02:00 07/22/19 02:16 Dextrose IVPB 250 mls/hr Q12H [facility] Administration Protocol Lacosamide 200 mg 06/23/19 10:00 07/21/19 22:01 Vimpat Injection - IVPB 200 mg BID [facility] Administration Levetiracetam 1,000 mg 06/23/19 10:00 07/21/19 22:00 Keppra Injection - IVPB 1,000 mg BID [facility] Administration Pantoprazole Sodium 40 mg 06/24/19 10:00 07/21/19 09:45 Protonix Iv IVPUSH 40 mg DAILY [facility] Administration Phenobarbital 60 mg 06/28/19 10:00 07/21/19 22:01 Phenobarbital Liquid - GT 60 mg BID [facility] Administration Polyethylene Glycol 17 gm 07/18/19 22:00 07/21/19 22:00 Miralax (For Daily Use) - PO 17 gm BID [facility] Administration Potassium Chloride 40 meq 07/21/19 10:45 07/21/19 14:20 Potassium Chloride Oral Liquid PO 40 meq DAILY [facility] Administration Potassium Phos/Sodium Phos 1 packet 07/20/19 14:00 07/22/19 06:18 Phos-Nak Packet - PO 1 packet TID [facility] Administration Spironolactone 50 mg 07/19/19 10:00 07/21/19 09:45 Aldactone - PO 50 mg DAILY [facility] Administration Topiramate 200 mg 06/23/19 14:00 07/22/19 06:18 Topamax - PO 200 mg TID [facility] Administration Zinc Sulfate 220 mg 06/23/19 22:00 07/21/19 22:01 Orazinc - PO 220 mg BID [facility] Administration Laboratory Tests 07/21/19 09:55 ABG pH 7.38 ABG pCO2 at Pt Temp 87.3 H* ABG HCO3 50.1 H Impression 1. hypokalemia 2. hypernatremia 3. resp failure 4. fungemia 5. covid 19 infection 6. ards 7. developemental delay 8. epilepsy 9. bactermia 10. resp acidosis with compensatory met alk Plan - monitor potassium while on lasix - check mag level - monitor lytes - follow abg - vent support
--- NOTE | 2019-07-22 12:37 | PN ---
Physical Exam: SUBJECTIVE: Patient seen and examined at bedside. There were no acute events overnight. This am he is unable to participate in medical interview. OBJECTIVE: Vital Signs Period Temp Pulse Resp BP Sys/Ortiz Pulse Ox Last 24 Hr 96.7 F-98.3 F 95-125 31-36 100-122/53-71 95-100 GENERAL: sedated and unresponsive to voice HEAD: Normal with no signs of trauma. EYES: sclera anicteric, conjunctiva clear ENT: ETT in place. NECK: Trachea midline, full range of motion, supple. LUNGS: See attending note for complete exam. HEART: Regular rate and rhythm. ABDOMEN: Soft, nontender, nondistended, no guarding, no rebound, no hepatosplenomegaly, no masses. SKIN: Warm, dry, normal turgor, no rashes or lesions noted, grossly edematous Laboratory Results - last 24 hr 07/21/19 07/22/19 15:38 06:00 Potassium 3.5 Magnesium 2.0 Urine Color Dk yellow Urine Appearance Clear Urine pH 7.0 Ur Specific [place] 1.016 Urine Protein Negative Urine Glucose (UA) Negative Urine Ketones Negative Urine Blood Negative Urine Nitrite Negative Urine Bilirubin Negative Urine Urobilinogen 4.0 e.u/dl Ur Leukocyte Esterase Negative Active Medications Generic Name Dose Route Start Last Admin Trade Name Walterq PRN Reason Stop Dose Admin Acetaminophen 1,000 mg 07/16/19 06:09 07/19/19 15:18 Ofirmev Injection - IVPB 1,000 mg Q6H PRN Administration FEVER Amino Acids 30 ml 07/06/19 17:30 07/21/19 17:33 Prosource No Carb Liquid Pkt PO 30 ml BID@0800,1730 [facility] Administration Ascorbic Acid 500 mg 07/08/19 11:00 07/21/19 09:46 Vitamin C - PO 500 mg DAILY [facility] Administration Chlorhexidine Gluconate 1 applic 06/22/19 22:00 07/21/19 22:00 Hibiclens For Decolonization - TP 1 applic HS [facility] Administration Cholecalciferol 800 unit 07/03/19 16:00 07/21/19 09:46 Vitamin D3 - PO 800 unit DAILY [facility] Administration Enoxaparin Sodium 80 mg 07/05/19 08:00 07/21/19 22:00 Lovenox - SQ 80 mg Q12H [facility] Administration IV Flush 4 ml 07/18/19 18:26 Triple Lumen Flush IVPUSH PRN PRN Protocol Propofol 1,000,000 mcg in 100 mls @ 2.313 mls/hr 06/22/19 14:00 07/22/19 09:04 Diprivan - IVPB 30 mcg/kg/min TITR [facility] 13.88 mls/hr Titration Protocol 5 MCG/KG/MIN Morphine Sulfate 100 mg in 100 mls @ 1 mls/hr 06/22/19 21:30 07/21/19 21:59 Morphine 100mg/100ml-0.9% Nacl IVPB 10 mg/hr TITR [facility] 10 mls/hr Administration Protocol 1 MG/HR Caspofungin 50 mg/ Sodium 250 mls @ 250 mls/hr 07/14/19 10:00 07/21/19 09:22 Chloride IVPB 250 mls/hr Q24H [facility] Administration Midazolam HCl 100 mg in 100 mls @ 1 mls/hr 07/15/19 22:15 07/21/19 03:47 Versed - IVPB 7 mg/hr TITR [facility] 7 mls/hr Infusion Protocol 1 MG/HR Meropenem 1 gm/ Dextrose 100 mls @ 200 mls/hr 07/16/19 11:00 07/22/19 01:04 IVPB 200 mls/hr Q8H-IV [facility] Administration Vecuronium [place] 100 mg in 100 mls @ 5.226 mls/hr 07/17/19 11:15 07/22/19 06:18 Vecuronium [place] IVPB 1 mcg/kg/min TITR [facility] 5.226 mls/hr Administration Protocol 1 MCG/KG/MIN Furosemide 100 mg/ Dextrose 100 mls @ 10 mls/hr 07/19/19 10:15 07/22/19 06:18 IVPB 10 mg/hr TITR [facility] 10 mls/hr Administration Protocol 10 MG/HR Vancomycin HCl 1,500 mg/ 500 mls @ 250 mls/hr 07/21/19 02:00 07/22/19 02:16 Dextrose IVPB 250 mls/hr Q12H [facility] Administration Protocol Lacosamide 200 mg 06/23/19 10:00 07/21/19 22:01 Vimpat Injection - IVPB 200 mg BID [facility] Administration Levetiracetam 1,000 mg 06/23/19 10:00 07/21/19 22:00 Keppra Injection - IVPB 1,000 mg BID [facility] Administration Pantoprazole Sodium 40 mg 06/24/19 10:00 07/21/19 09:45 Protonix Iv IVPUSH 40 mg DAILY [facility] Administration Phenobarbital 60 mg 06/28/19 10:00 07/21/19 22:01 Phenobarbital Liquid - GT 60 mg BID [facility] Administration Polyethylene Glycol 17 gm 07/18/19 22:00 07/21/19 22:00 Miralax (For Daily Use) - PO 17 gm BID [facility] Administration Potassium Chloride 40 meq 07/21/19 10:45 07/21/19 14:20 Potassium Chloride Oral Liquid PO 40 meq DAILY [facility] Administration Potassium Phos/Sodium Phos 1 packet 07/20/19 14:00 07/22/19 06:18 Phos-Nak Packet - PO 1 packet TID [facility] Administration Spironolactone 50 mg 07/19/19 10:00 07/21/19 09:45 Aldactone - PO 50 mg DAILY [facility] Administration Topiramate 200 mg 06/23/19 14:00 07/22/19 06:18 Topamax - PO 200 mg TID [facility] Administration Zinc Sulfate 220 mg 06/23/19 22:00 07/21/19 22:01 Orazinc - PO 220 mg BID [facility] Administration ASSESSMENT/PLAN: 38 y/o male PMH developmental delay and epilepsy who presented to ED c/o SOB and hypoxia requiring intubation and is presently admitted for hypoxic respiratory failure due to covid-19. NEURO -midazolam, propofol, morphine -CTM mental status -epilepsy: Keppra, Topamax, Vimpat, and phenobarbitol -Ativan 2mg PRN for breakthrough PULM #hypoxic respiratory failure 2/2 covid-19 - AC 35/350/10/100% - wean FIO2 with goal SpO2 >90% - continue vecuronium drip - s/p Plaquenil, convalescent plasma, and Actemra CARDIO - not on pressors ID #fungemia - yeast present in blood and sputum cultures - continue caspofungin started 07/13 (day 7) #staphylococcus epidermidis bacteremia - continue vancomycin BID started 07/15 (day 5) - FLORESITA ECHO ordered per ID for eval endocarditis - follow blood cultures FEN #diet - tube feeds Vital 1.2 with free water - cont to monitor and replete electrolytes - replete PRN PPX - SQ Lovenox 40mg BID - Protonix 40mg QD TLD - ETT 07/17 - LSC TLC 07/17 - R radial A-line 07/17 DISPO - ICU - Full Code Visit type - Emergency Visit Emergency Visit: No - New Patient This patient is new to me today: No - Critical Care Critical Care patient: Yes Total Critical Care Time (in minutes): 36 Critical Care Statement: The care of this patient involved high complexity decision making to prevent further life threatening deterioration of the patient's condition and/or to evaluate & treat vital organ system(s) failure or risk of failure. ATTENDING PHYSICIAN STATEMENT I saw and evaluated the patient. I reviewed the resident's note and discussed the case with the resident. I agree with the resident's findings and plan as documented. SUBJECTIVE: OBJECTIVE: ASSESSMENT AND PLAN:
--- NOTE | 2019-07-22 12:53 | PN ---
Teaching Attending Note Name of Resident: Camacho Goldman ATTENDING PHYSICIAN STATEMENT I saw and evaluated the patient. I reviewed the resident's note and discussed the case with the resident. I agree with the resident's findings and plan as documented. SUBJECTIVE: Patient seen and examined in the ICU. Remains intubated and sedated. No pressors. PPlat: 38 OBJECTIVE: Intake & Output 07/19/19 07/20/19 07/21/19 07/22/19 23:59 23:59 23:59 23:59 Intake Total 2276.6 3848.8 3349 2435 Output Total 2700 7100 3100 800 Balance -423.4 -3251.2 249 1635 Weight 202 lb 13.204 oz Last Vital Signs Temp Pulse Resp BP Pulse Ox 98.1 F 95 H 35 H 112/65 100 07/22/19 10:00 07/22/19 12:00 07/22/19 12:00 07/22/19 12:00 07/22/19 09:00 Active Medications Acetaminophen (Ofirmev Injection -) 1,000 mg IVPB Q6H PRN PRN Reason: FEVER Last Admin: 07/19/19 15:18 Dose: 1,000 mg Documented by: Amino Acids (Prosource No Carb Liquid Pkt) 30 ml PO BID@0800,1730 [facility] Last Admin: 07/21/19 17:33 Dose: 30 ml Documented by: Ascorbic Acid (Vitamin C -) 500 mg PO DAILY [facility] Last Admin: 07/21/19 09:46 Dose: 500 mg Documented by: Chlorhexidine Gluconate (Hibiclens For Decolonization -) 1 applic TP HS [facility] Last Admin: 07/21/19 22:00 Dose: 1 applic Documented by: Cholecalciferol (Vitamin D3 -) 800 unit PO DAILY [facility] Last Admin: 07/21/19 09:46 Dose: 800 unit Documented by: Enoxaparin Sodium (Lovenox -) 80 mg SQ Q12H [facility] Last Admin: 07/21/19 22:00 Dose: 80 mg Documented by: IV Flush (Triple Lumen Flush) 4 ml IVPUSH PRN PRN PRN Reason: Protocol Propofol (Diprivan -) 1,000,000 mcg in 100 mls @ 2.313 mls/hr IVPB TITR [facility]; Protocol Last Titration: 07/22/19 09:04 Dose: 30 mcg/kg/min, 13.88 mls/hr Documented by: Morphine Sulfate (Morphine 100mg/100ml-0.9% Nacl) 100 mg in 100 mls @ 1 mls/hr IVPB TITR [facility]; Protocol Last Admin: 07/21/19 21:59 Dose: 10 mg/hr, 10 mls/hr Documented by: Caspofungin 50 mg/ Sodium (Chloride) 250 mls @ 250 mls/hr IVPB Q24H [facility] Last Admin: 07/21/19 09:22 Dose: 250 mls/hr Documented by: Midazolam HCl (Versed -) 100 mg in 100 mls @ 1 mls/hr IVPB TITR [facility]; Protocol Last Infusion: 07/21/19 03:47 Dose: 7 mg/hr, 7 mls/hr Documented by: Meropenem 1 gm/ Dextrose 100 mls @ 200 mls/hr IVPB Q8H-IV [facility] Last Admin: 07/22/19 01:04 Dose: 200 mls/hr Documented by: Vecuronium [place] (Vecuronium [place]) 100 mg in 100 mls @ 5.226 mls/hr IVPB TITR [facility]; Protocol Last Admin: 07/22/19 06:18 Dose: 1 mcg/kg/min, 5.226 mls/hr Documented by: Furosemide 100 mg/ Dextrose 100 mls @ 10 mls/hr IVPB TITR [facility]; Protocol Last Admin: 07/22/19 06:18 Dose: 10 mg/hr, 10 mls/hr Documented by: Vancomycin HCl 1,500 mg/ (Dextrose) 500 mls @ 250 mls/hr IVPB Q12H [facility]; Protocol Last Admin: 07/22/19 02:16 Dose: 250 mls/hr Documented by: Lacosamide (Vimpat Injection -) 200 mg IVPB BID [facility] Last Admin: 07/21/19 22:01 Dose: 200 mg Documented by: Levetiracetam (Keppra Injection -) 1,000 mg IVPB BID [facility] Last Admin: 07/21/19 22:00 Dose: 1,000 mg Documented by: Pantoprazole Sodium (Protonix Iv) 40 mg IVPUSH DAILY [facility] Last Admin: 07/21/19 09:45 Dose: 40 mg Documented by: Phenobarbital (Phenobarbital Liquid -) 60 mg GT BID [facility] Last Admin: 07/21/19 22:01 Dose: 60 mg Documented by: Polyethylene Glycol (Miralax (For Daily Use) -) 17 gm PO BID [facility] Last Admin: 07/21/19 22:00 Dose: 17 gm Documented by: Potassium Chloride (Potassium Chloride Oral Liquid) 40 meq PO DAILY [facility] Last Admin: 07/21/19 14:20 Dose: 40 meq Documented by: Potassium Phos/Sodium Phos (Phos-Nak Packet -) 1 packet PO TID [facility] Last Admin: 07/22/19 06:18 Dose: 1 packet Documented by: Spironolactone (Aldactone -) 50 mg PO DAILY [facility] Last Admin: 07/21/19 09:45 Dose: 50 mg Documented by: Topiramate (Topamax -) 200 mg PO TID [facility] Last Admin: 07/22/19 06:18 Dose: 200 mg Documented by: Zinc Sulfate (Orazinc -) 220 mg PO BID [facility] Last Admin: 07/21/19 22:01 Dose: 220 mg Documented by: Gen: intubated, sedated Heart: RRR Lung: scattered rhonchi Abd: soft, nontender Ext: no edema Laboratory Results - last 24 hr 07/21/19 07/22/19 15:38 06:00 Potassium 3.5 Magnesium 2.0 Urine Color Dk yellow Urine Appearance Clear Urine pH 7.0 Ur Specific [place] 1.016 Urine Protein Negative Urine Glucose (UA) Negative Urine Ketones Negative Urine Blood Negative Urine Nitrite Negative Urine Bilirubin Negative Urine Urobilinogen 4.0 e.u/dl Ur Leukocyte Esterase Negative ASSESSMENT AND PLAN: Acute Hypoxic and Hypercapneic Respiratory Failure COVID19 Pneumonia E Coli Pneumonia Fungenmia Bacteremia Septic Shock Seizure Disorder Mental Retardation - continue antibiotics, antifungals per ID - f/u pending cultures - pressors if MAP < 65 - continue antiepileptics - FLORESITA to R/O Endocarditis - low tidal volume ventilation - titrate FiO2, PEEP to keep SpO2 >90% - sedate for vent synchrony - enteral feeds - DVT/GI prophylaxis - continue ICU monitoring Family meeting for GOC. Dr Callaway Critical care time spent in reviewing chart, evaluating patient and formulating plan 35 min
--- NOTE | 2019-07-22 13:14 | PN ---
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 (short form) - Note 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: remains intubated afebrile off pressors sedated and paralyzed, 100%fi02 Vital Signs Period Temp Pulse Resp BP Sys/Ortiz Pulse Ox Last 24 Hr 96.7 F-98.3 F 95-125 31-36 100-122/53-71 95-100 cor-rrr llungs decreased bs at bases abd soft,nt ext no edema CBC, BMP 07/21/19 06:40 07/22/19 06:00 Microbiology 07/18/19 21:10 Blood - Peripheral Venous Blood Culture - Preliminary NO GROWTH OBTAINED AFTER 72 HOURS, INCUBATION TO CONTINUE FOR 2 DAYS. 07/18/19 18:30 Blood - Peripheral Venous Blood Culture - Preliminary NO GROWTH OBTAINED AFTER 72 HOURS, INCUBATION TO CONTINUE FOR 2 DAYS. 07/15/19 12:25 Blood - Peripheral Venous Blood Culture - Final NO GROWTH AFTER 5 DAYS INCUBATION 07/16/19 15:15 Blood - Peripheral Venous Blood Culture - Final Staphylococcus Epidermidis 07/14/19 11:30 Blood - Peripheral Venous Blood Culture - Final NO GROWTH AFTER 5 DAYS INCUBATION 07/16/19 15:05 Blood - Peripheral Venous Blood Culture - Final Staphylococcus Epidermidis 07/16/19 12:30 Sputum - Endotrachea Suction/Ventilator Gram Stain - Final 07/16/19 12:30 Sputum - Endotrachea Suction/Ventilator Sputum Culture - Final S Aureus Escherichia Coli 07/12/19 10:55 Blood - Peripheral Venous Blood Culture - Final NO GROWTH AFTER 5 DAYS INCUBATION 07/16/19 12:30 Urine - Urine - Catheterized Urine Culture - Final NO GROWTH OBTAINED 07/12/19 06:00 Sputum - Endotrachea Suction/Ventilator Gram Stain - Final 07/12/19 06:00 Sputum - Endotrachea Suction/Ventilator Sputum Culture - Final 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 S Aureus 07/12/19 11:04 Blood - Peripheral Venous Blood Culture - Final 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 07/12/19 11:04 Blood - Peripheral Venous Yeast/Fungus Identification - Preliminary 07/01/19 18:15 Blood - Peripheral Venous Blood Culture - Final NO GROWTH AFTER 5 DAYS INCUBATION 06/29/19 12:30 Blood - Peripheral Venous Blood Culture - Final Staphylococcus Epidermidis 06/30/19 17:15 Sputum - Endotrachea Suction/Ventilator Gram Stain - Final 06/30/19 17:15 Sputum - Endotrachea Suction/Ventilator Sputum Culture - Final Escherichia Coli Esbl Enamel Drier 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 06/28/19 09:00 Blood - Peripheral Venous Blood Culture - Final Staphylococcus Epidermidis 06/28/19 12:50 Sputum - Endotrachea Suction/Ventilator Gram Stain - Final 06/28/19 12:50 Sputum - Endotrachea Suction/Ventilator Sputum Culture - Final 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 Staphylococcus Aureus 06/25/19 13:40 Blood - Peripheral Venous Blood Culture - Final NO GROWTH AFTER 5 DAYS INCUBATION 06/25/19 13:20 Blood - Peripheral Venous Blood Culture - Final NO GROWTH AFTER 5 DAYS INCUBATION 06/28/19 12:51 Urine - Urine Caceres Urine Culture - Final NO GROWTH OBTAINED 06/22/19 13:00 Blood - Peripheral Venous Blood Culture - Final Staphylococcus Warneri 06/22/19 13:00 Blood - Peripheral Venous Blood Culture - Final Staphylococcus Epidermidis 06/24/19 00:01 Urine - Urine Caceres Urine Culture - Final NO GROWTH OBTAINED 06/24/19 00:01 Urine For Antigen Detection Legionella Antigen - Final 06/24/19 00:01 Urine For Antigen Detection Streptococcus pneumoniae Antigen (M - Final covid pcr negative (repeat) quantiferon negative imp/reccd ARDS/pneumonia- MRSA/Ecoli -vanco/meropenem-day #6 bacteremia- recurrent staph epi bacteremia- ?endocarditis- check echo repeat blood cultures negative fungemia- continue cancidas day #9 central line changed covid 19 positive -repeat pcr s/p convalescent plasma s/p tocilizumab MRSA isolation for sputum culture- esbl isolation continue vanco/meropenem/cancidas echo -no vegetation noted overall prognosis is guarded Problem List - Problems (1) Suspected COVID-19 virus infection Code(s): R68.89 - OTHER GENERAL SYMPTOMS AND SIGNS (2) Acute respiratory failure with hypoxia Code(s): J96.01 - ACUTE RESPIRATORY FAILURE WITH HYPOXIA (3) Bacteremia Code(s): R78.81 - BACTEREMIA
--- NOTE | 2019-07-22 14:47 | CON.CARD ---
Consult Consult Specialty:: Cardiology Reason for Consultation:: Rule out endocarditis - History of Present Illness History of Present Illness: This is a 38 year old male with epilepsy and developmental delay. He presented on 06/22/2019 with respiratory distress and hypoxia. O2 sats were 56%. Also noted to have COVID and was intubated in the ICU. He was treated for hypernatremia and hypokalemia as well. Treated for septic shock with pressors. He remains on antifungals and antibiotics as per ID. Echocardiogram 07/21/2019 EF 65% Trace MR Mild TR Consulted for FLORESITA - Past Medical History RADIO HOST: Yes: Seizure - Alcohol/Substance Use Hx Alcohol Use: No - Smoking History Smoking history: Never smoked Have you smoked in the past 12 months: No Home Medications - Allergies Allergies/Adverse Reactions: Allergies Allergy/AdvReac Type Severity Reaction Status Date / Time No Known Allergies Allergy Verified 06/22/19 12:24 - Home Medications Home Medications: Ambulatory Orders Topiramate [Topamax -] 200 mg PO TID #90 tablet 06/10/18 Lacosamide [Vimpat] 200 mg PO BID #60 tablet MDD 2 06/11/18 Phenobarbital - 60 mg PO BID #120 tablet MDD 4 06/11/18 levETIRAcetam [Keppra -] 1,000 mg PO BID 06/22/19 Vital Signs: Vital Signs Temperature 98.1 F 07/22/19 10:00 Pulse Rate 95 H 07/22/19 12:00 Respiratory Rate 35 H 07/22/19 14:10 Blood Pressure 112/65 07/22/19 12:00 O2 Sat by Pulse Oximetry (%) 99 07/22/19 14:10 Constitutional: Yes: Other (Intubated/sedated) HENT: Yes: WNL Respiratory: Yes: Mechanically Ventilated Gastrointestinal: Yes: Soft Cardiovascular: Yes: Regular Rate and Rhythm Heart Sounds: Yes: S1, S2 Edema: No - Other Data Labs, Other Data: CBC, BMP 07/21/19 06:40 07/22/19 06:00 INR, PTT INR 1.06 (0.83-1.09) 07/19/19 09:04 Assessment/Plan 38 year old male with epilepsy and developmental delay. He presented on 06/22/2019 with respiratory distress and hypoxia. O2 sats were 56%. Also noted to have COVID and was intubated in the ICU. He was treated for hypernatremia and hypokalemia as well. Treated for septic shock with pressors. He remains on antifungals and antibiotics as per ID. Echocardiogram 07/21/2019 EF 65% Trace MR Mild TR Consulted for FLORESITA At this point, the risks of a FLORESITA out way the benefits. A FLORESITA could easily disrupt the ETT, and even if the FLORESITA shows vegitations, it would not change the immediate treatment, although it may impact the length of the antibiotic course. I would wait until he is more stable and extubated and then reassess the need to a FLORESITA.
--- NOTE | 2019-07-22 15:14 | PN ---
Physical Exam: SUBJECTIVE: Patient seen and examined at bedside. There were no acute events overnight. This AM he is unable to participate in medical interview. OBJECTIVE: Vital Signs Period Temp Pulse Resp BP Sys/Ortiz Pulse Ox Last 24 Hr 96.7 F-98.3 F 95-125 31-36 103-122/58-71 95-100 GENERAL: Intubated and sedated HEAD: NCAT EYES: sclera anicteric, conjunctiva clear ENT: ETT LUNGS: Equal rise and fall of chest wall HEART: Regular rate and rhythm. SKIN: Warm, dry, normal turgor, no rashes or lesions noted, grossly edematous Laboratory Results - last 24 hr 07/21/19 07/22/19 07/22/19 15:38 06:00 13:17 Potassium 3.5 Magnesium 2.0 Urine Color Dk yellow Urine Appearance Clear Urine pH 7.0 Ur Specific [place] 1.016 Urine Protein Negative Urine Glucose (UA) Negative Urine Ketones Negative Urine Blood Negative Urine Nitrite Negative Urine Bilirubin Negative Urine Urobilinogen 4.0 e.u/dl Ur Leukocyte Esterase Negative Vancomycin Pre-Dose 16.5 H Active Medications Generic Name Dose Route Start Last Admin Trade Name Freq PRN Reason Stop Dose Admin Acetaminophen 1,000 mg 07/16/19 06:09 07/19/19 15:18 Ofirmev Injection - IVPB 1,000 mg Q6H PRN Administration FEVER Amino Acids 30 ml 07/06/19 17:30 07/21/19 17:33 Prosource No Carb Liquid Pkt PO 30 ml BID@0800,1730 TIKI Administration Ascorbic Acid 500 mg 07/08/19 11:00 07/21/19 09:46 Vitamin C - PO 500 mg DAILY TIKI Administration Chlorhexidine Gluconate 1 applic 06/22/19 22:00 07/21/19 22:00 Hibiclens For Decolonization - TP 1 applic HS TIKI Administration Cholecalciferol 800 unit 07/03/19 16:00 07/21/19 09:46 Vitamin D3 - PO 800 unit DAILY TIKI Administration Enoxaparin Sodium 80 mg 07/05/19 08:00 07/21/19 22:00 Lovenox - SQ 80 mg Q12H TIKI Administration IV Flush 4 ml 07/18/19 18:26 Triple Lumen Flush IVPUSH PRN PRN Protocol Propofol 1,000,000 mcg in 100 mls @ 2.313 mls/hr 06/22/19 14:00 07/22/19 09:04 Diprivan - IVPB 30 mcg/kg/min TITR TIKI 13.88 mls/hr Titration Protocol 5 MCG/KG/MIN Morphine Sulfate 100 mg in 100 mls @ 1 mls/hr 06/22/19 21:30 07/21/19 21:59 Morphine 100mg/100ml-0.9% Nacl IVPB 10 mg/hr TITR ITKI 10 mls/hr Administration Protocol 1 MG/HR Caspofungin 50 mg/ Sodium 250 mls @ 250 mls/hr 07/14/19 10:00 07/21/19 09:22 Chloride IVPB 250 mls/hr Q24H TIKI Administration Midazolam HCl 100 mg in 100 mls @ 1 mls/hr 07/15/19 22:15 07/21/19 03:47 Versed - IVPB 7 mg/hr TITR TIKI 7 mls/hr Infusion Protocol 1 MG/HR Meropenem 1 gm/ Dextrose 100 mls @ 200 mls/hr 07/16/19 11:00 07/22/19 01:04 IVPB 200 mls/hr Q8H-IV TIKI Administration Vecuronium [place] 100 mg in 100 mls @ 5.226 mls/hr 07/17/19 11:15 07/22/19 06:18 Vecuronium [place] IVPB 1 mcg/kg/min TITR TIKI 5.226 mls/hr Administration Protocol 1 MCG/KG/MIN Furosemide 100 mg/ Dextrose 100 mls @ 10 mls/hr 07/19/19 10:15 07/22/19 06:18 IVPB 10 mg/hr TITR TIKI 10 mls/hr Administration Protocol 10 MG/HR Vancomycin HCl 1,500 mg/ 500 mls @ 250 mls/hr 07/21/19 02:00 07/22/19 02:16 Dextrose IVPB 250 mls/hr Q12H TIKI Administration Protocol Lacosamide 200 mg 06/23/19 10:00 07/21/19 22:01 Vimpat Injection - IVPB 200 mg BID TIKI Administration Levetiracetam 1,000 mg 06/23/19 10:00 07/21/19 22:00 Keppra Injection - IVPB 1,000 mg BID TIKI Administration Pantoprazole Sodium 40 mg 06/24/19 10:00 07/21/19 09:45 Protonix Iv IVPUSH 40 mg DAILY TIKI Administration Phenobarbital 60 mg 06/28/19 10:00 07/21/19 22:01 Phenobarbital Liquid - GT 60 mg BID TIKI Administration Polyethylene Glycol 17 gm 07/18/19 22:00 07/21/19 22:00 Miralax (For Daily Use) - PO 17 gm BID TIKI Administration Potassium Chloride 40 meq 07/21/19 10:45 07/21/19 14:20 Potassium Chloride Oral Liquid PO 40 meq DAILY TIKI Administration Potassium Phos/Sodium Phos 1 packet 07/20/19 14:00 07/22/19 06:18 Phos-Nak Packet - PO 1 packet TID TIKI Administration Spironolactone 50 mg 07/19/19 10:00 07/21/19 09:45 Aldactone - PO 50 mg DAILY TIKI Administration Topiramate 200 mg 06/23/19 14:00 07/22/19 06:18 Topamax - PO 200 mg TID TIKI Administration Zinc Sulfate 220 mg 06/23/19 22:00 07/21/19 22:01 Orazinc - PO 220 mg BID TIKI Administration ASSESSMENT/PLAN: Kumar Hurtado is a 38M with PMH MR and epilepsy who presented to ED initially with SOB and hypoxia requiring intubation, admitted to hospital for hypoxic respiratory failure due to covid-19. NEURO #post-intubation sedation - continue midazolam, propofol, and morphine - wean as tolerated - CTM mental status #epilepsy - continue Keppra, Topamax, Vimpat, and phenobarbitol - Ativan 2mg PRN for breakthrough PULM #hypoxic respiratory failure 2/2 covid-19 - intubated - AC 35/350/10/100% - ABG 7.38/87.3/163 - wean FIO2 with goal SpO2 >90% - continue vecuronium drip - s/p Plaquenil, convalescent plasma, and Actemra CARDIO - CTM VS - not on pressors ID #fungemia - yeast present in blood and sputum cultures - continue caspofungin started 07/13 (day 7) - Dr. Bravo following #staphylococcus epidermidis bacteremia - continue vancomycin BID started 07/15 (day 5) - FLORESITA ECHO ordered per ID for eval endocarditis - follow blood cultures FEN #diet - continue tube feeds Vital 1.2 with free water #hypokalemia - resolved - starting daily 40mg NGT KCl while on Lasix drip - sending UA for eval RTA #electrolytes - replete PRN PPX #DVT - SQ Lovenox 40mg BID - Protonix 40mg QD LTD - ETT replaced 07/17 (day 3) - LSC TLC placed 07/17 (day 3) - R radial A-line placed 07/17 (day 3) DISPO - ICU - Full Code Visit type - Emergency Visit Emergency Visit: No - New Patient This patient is new to me today: Yes Date on this admission: 07/22/19 - Critical Care Critical Care patient: Yes Total Critical Care Time (in minutes): 36 Critical Care Statement: The care of this patient involved high complexity decision making to prevent further life threatening deterioration of the patient's condition and/or to evaluate & treat vital organ system(s) failure or risk of failure. ATTENDING PHYSICIAN STATEMENT I saw and evaluated the patient. I reviewed the resident's note and discussed the case with the resident. I agree with the resident's findings and plan as documented. SUBJECTIVE: OBJECTIVE: ASSESSMENT AND PLAN:
[2019-07-22] MEDS ORDERED: MORPHINE SULFATE/0.9% NACL/PF 100 MG/100 ML BAG ONE (17:40)
[2019-07-22] MEDS: AMINO ACIDS/PROTEIN HYDROLYS 30 ML LIQUID.PKT PO SCH ×2 (17:47)
[2019-07-22] MEDS: POLYETHYLENE GLYCOL 3350 119 GM BTL PO SCH ×2 (17:52→21:59)
[2019-07-22 18:57] LABS: CHLORIDE 87 mmol/L (98-107); CREATININE 0.2 mg/dL (0.55-1.3); GLUCOSE,RANDOM 124 mg/dL (74-106); POTASSIUM 3.4 mmol/L (3.5-5.1); SODIUM 141 mmol/L (136-145)
[2019-07-22 19:07] LABS: ANION GAP 9 MMOL/L (8-16); CO2 > 45 mmol/L (21-32)
[2019-07-22] MEDS: CHLORHEXIDINE GLUCONATE 4% CLEANSER FOR DECOLONIZATION TP SCH (21:47)
[2019-07-23] MEDS: VECURONIUM BROMIDE 100 MG/100 ML BAG IVPB SCH ×2 (01:24→23:28)
[2019-07-23] MEDS: PROPOFOL 1,000,000 MCG/100 ML VIAL IVPB SCH ×5 (01:24→22:12)
[2019-07-23] MEDS: FUROSEMIDE INJECTION 100 MG in DEXTROSE 5%-WATER - 90 ML IVPB SCH ×2 (02:22→13:31)
[2019-07-23] MEDS ORDERED: MEROPENEM 1 GM VIAL (RESTRICTED TO ID) IVPB ONE ×3 (02:38→17:16)
[2019-07-23] MEDS ORDERED: DEXTROSE 5%-WATER 100 ML IVPB ONE ×3 (02:38→17:16)
[2019-07-23] MEDS: MEROPENEM 1 GM in DEXTROSE 5%-WATER 100 ML IVPB SCH ×3 (02:40→17:28)
[2019-07-23] MEDS: MORPHINE SULFATE/0.9% NACL/PF 100 MG/100 ML BAG IVPB SCH ×3 (04:02→23:28)
[2019-07-23] MEDS: VANCOMYCIN HCL 1,500 MG in DEXTROSE 5%-WATER - 500 ML IVPB SCH ×2 (04:03→14:15)
[2019-07-23] MEDS: NAPH,MB-DB/K PH,MBDB POWDER PACKET PO SCH ×3 (05:49→21:11)
[2019-07-23] MEDS: TOPIRAMATE 200 MG TABLET PO SCH ×3 (05:50→22:11)
[2019-07-23] MEDS: AMINO ACIDS/PROTEIN HYDROLYS 30 ML LIQUID.PKT PO SCH ×2 (08:43→17:27)
[2019-07-23] MEDS: CASPOFUNGIN ACETATE 50 MG in SODIUM CHLORIDE 250 ML IVPB SCH (09:27)
[2019-07-23] MEDS: KCL 10 MEQ IVPB 10 MEQ/100 ML INFUS.BAG IVPB SCH ×3 (09:58→12:32)
[2019-07-23] MEDS: ZINC SULFATE 220 MG CAPSULE (FP) PO SCH ×2 (09:59→21:10)
[2019-07-23] MEDS: PHENobarbital 20 MG/5 ML UNIT-DOSE CUP GT SCH ×2 (09:59→21:10)
[2019-07-23] MEDS: POLYETHYLENE GLYCOL 3350 119 GM BTL PO SCH ×2 (09:59→21:11)
[2019-07-23] MEDS: PANTOPRAZOLE SODIUM 40 MG VIAL IVPUSH SCH (10:01)
[2019-07-23] MEDS: levETIRAcetam 500 MG/5 ML INJECTION VIAL IVPB SCH ×2 (10:02→21:11)
[2019-07-23] MEDS: SPIRONOLACTONE 25 MG TABLET PO SCH (10:02)
[2019-07-23] MEDS: Lacosamide 200 MG/20 ML VIAL IVPB SCH ×2 (10:07→21:12)
[2019-07-23] MEDS: POTASSIUM CHLORIDE ORAL LIQUID 20 MEQ/15 ML PO SCH (10:11)
[2019-07-23] MEDS: ASCORBIC ACID 500 MG TABLET (FP) PO SCH (10:11)
--- NOTE | 2019-07-23 11:09 | PN ---
Teaching Attending Note Name of Resident: Camacho Goldman ATTENDING PHYSICIAN STATEMENT I saw and evaluated the patient. I reviewed the resident's note and discussed the case with the resident. I agree with the resident's findings and plan as documented. SUBJECTIVE: Patient seen and examined in the ICU. Remains intubated and sedated. No pressors. PPlat: 34 OBJECTIVE: Intake & Output 07/20/19 07/21/19 07/22/19 07/23/19 23:59 23:59 23:59 23:59 Intake Total 3848.8 3349 3937.7 1423.2 Output Total 7100 3100 3200 1950 Balance -3251.2 249 737.7 -526.8 Weight 202 lb 13.204 oz 200 lb 2.876 oz Last Vital Signs Temp Pulse Resp BP Pulse Ox 99.2 F 102 H 35 H 118/61 98 07/23/19 10:00 07/23/19 10:00 07/23/19 10:00 07/23/19 10:00 07/23/19 10:00 Active Medications Acetaminophen (Ofirmev Injection -) 1,000 mg IVPB Q6H PRN PRN Reason: FEVER Last Admin: 07/19/19 15:18 Dose: 1,000 mg Documented by: Amino Acids (Prosource No Carb Liquid Pkt) 30 ml PO BID@0800,1730 [facility] Last Admin: 07/23/19 08:43 Dose: 30 ml Documented by: Ascorbic Acid (Vitamin C -) 500 mg PO DAILY [facility] Last Admin: 07/23/19 10:11 Dose: 500 mg Documented by: Chlorhexidine Gluconate (Hibiclens For Decolonization -) 1 applic TP HS [facility] Last Admin: 07/22/19 21:47 Dose: 1 applic Documented by: Cholecalciferol (Vitamin D3 -) 800 unit PO DAILY [facility] Last Admin: 07/22/19 10:50 Dose: 800 unit Documented by: IV Flush (Triple Lumen Flush) 4 ml IVPUSH PRN PRN PRN Reason: Protocol Propofol (Diprivan -) 1,000,000 mcg in 100 mls @ 2.313 mls/hr IVPB TITR [facility]; Protocol Last Admin: 07/23/19 05:49 Dose: 30 mcg/kg/min, 13.88 mls/hr Documented by: Morphine Sulfate (Morphine 100mg/100ml-0.9% Nacl) 100 mg in 100 mls @ 1 mls/hr IVPB TITR [facility]; Protocol Last Admin: 07/23/19 04:02 Dose: 10 mg/hr, 10 mls/hr Documented by: Caspofungin 50 mg/ Sodium (Chloride) 250 mls @ 250 mls/hr IVPB Q24H [facility] Last Admin: 07/23/19 09:27 Dose: 250 mls/hr Documented by: Meropenem 1 gm/ Dextrose 100 mls @ 200 mls/hr IVPB Q8H-IV [facility] Last Admin: 07/23/19 10:00 Dose: 200 mls/hr Documented by: Vecuronium [place] (Vecuronium [place]) 100 mg in 100 mls @ 5.226 mls/hr IVPB TITR [facility]; Protocol Last Admin: 07/23/19 01:24 Dose: 1 mcg/kg/min, 5.226 mls/hr Documented by: Furosemide 100 mg/ Dextrose 100 mls @ 10 mls/hr IVPB TITR [facility]; Protocol Last Admin: 07/23/19 02:22 Dose: 10 mg/hr, 10 mls/hr Documented by: Vancomycin HCl 1,500 mg/ (Dextrose) 500 mls @ 250 mls/hr IVPB Q12H [facility]; Protocol Last Admin: 07/23/19 04:03 Dose: 250 mls/hr Documented by: Potassium Chloride (Potassium Chloride 10 Meq Premix Ivpb -) 10 meq in 100 mls @ 100 mls/hr IVPB Q60M [facility] Stop: 07/23/19 11:44 Last Admin: 07/23/19 09:58 Dose: 100 mls/hr Documented by: Lacosamide (Vimpat Injection -) 200 mg IVPB BID [facility] Last Admin: 07/23/19 10:07 Dose: 200 mg Documented by: Levetiracetam (Keppra Injection -) 1,000 mg IVPB BID [facility] Last Admin: 07/23/19 10:02 Dose: 1,000 mg Documented by: Pantoprazole Sodium (Protonix Iv) 40 mg IVPUSH DAILY [facility] Last Admin: 07/23/19 10:01 Dose: 40 mg Documented by: Phenobarbital (Phenobarbital Liquid -) 60 mg GT BID [facility] Last Admin: 07/23/19 09:59 Dose: 60 mg Documented by: Polyethylene Glycol (Miralax (For Daily Use) -) 17 gm PO BID [facility] Last Admin: 07/23/19 09:59 Dose: 17 gm Documented by: Potassium Chloride (Potassium Chloride Oral Liquid) 40 meq PO DAILY [facility] Last Admin: 07/23/19 10:11 Dose: 40 meq Documented by: Potassium Phos/Sodium Phos (Phos-Nak Packet -) 1 packet PO TID [facility] Last Admin: 07/23/19 05:49 Dose: 1 packet Documented by: Spironolactone (Aldactone -) 50 mg PO DAILY [facility] Last Admin: 07/23/19 10:02 Dose: 50 mg Documented by: Topiramate (Topamax -) 200 mg PO TID [facility] Last Admin: 07/23/19 05:50 Dose: 200 mg Documented by: Zinc Sulfate (Orazinc -) 220 mg PO BID [facility] Last Admin: 07/23/19 09:59 Dose: 220 mg Documented by: Gen: intubated, sedated Heart: RRR Lung: scattered rhonchi Abd: soft, nontender Ext: no edema Laboratory Results - last 24 hr 07/22/19 07/22/19 13:17 18:04 Sodium 141 Potassium 3.4 L Chloride 87 L Carbon Dioxide > 45 H Anion Gap 9 BUN 7.0 Creatinine 0.2 L Est GFR (CKD-EPI)AfAm 233.83 Est GFR (CKD-EPI)NonAf 201.75 Random Glucose 124 H Calcium 8.0 L Magnesium 2.0 Vancomycin Pre-Dose 16.5 H ASSESSMENT AND PLAN: Acute Hypoxic and Hypercapneic Respiratory Failure COVID19 Pneumonia E Coli Pneumonia Fungenmia Bacteremia Septic Shock Seizure Disorder Mental Retardation - continue antibiotics, antifungals per ID - f/u pending cultures - continue antiepileptics - Cardiology consult noted, hold on FLORESITA for now - low tidal volume ventilation - titrate FiO2, PEEP to keep SpO2 >90% - sedate for vent synchrony - enteral feeds - DVT/GI prophylaxis - continue ICU monitoring Family meeting for GOC. Will offer Tracheostomy if parameters become amenable. Dr Callaway Critical care time spent in reviewing chart, evaluating patient and formulating plan 35 min
[2019-07-23] MEDS ORDERED: PT OWN MED DRAWER 7, Y5N ONE ×2 (11:14→14:12)
--- NOTE | 2019-07-23 11:14 | PN ---
Physical Exam: SUBJECTIVE: Patient seen and examined at bedside. There were no acute events overnight. This AM he is unable to participate in medical interview. OBJECTIVE: Vital Signs Period Temp Pulse Resp BP Sys/Ortiz Pulse Ox Last 24 Hr 97.3 F-100 F 95-129 35-35 108-128/58-69 96-99 GENERAL: Intubated and sedated HEAD: NCAT EYES: sclera anicteric, conjunctiva clear ENT: ETT LUNGS: Equal rise and fall of chest wall HEART: Regular rate and rhythm. SKIN: Warm, dry, normal turgor, no rashes or lesions noted, grossly edematous Laboratory Results - last 24 hr 07/22/19 07/22/19 13:17 18:04 Sodium 141 Potassium 3.4 L Chloride 87 L Carbon Dioxide > 45 H Anion Gap 9 BUN 7.0 Creatinine 0.2 L Est GFR (CKD-EPI)AfAm 233.83 Est GFR (CKD-EPI)NonAf 201.75 Random Glucose 124 H Calcium 8.0 L Magnesium 2.0 Vancomycin Pre-Dose 16.5 H Active Medications Generic Name Dose Route Start Last Admin Trade Name Freq PRN Reason Stop Dose Admin Acetaminophen 1,000 mg 07/16/19 06:09 07/19/19 15:18 Ofirmev Injection - IVPB 1,000 mg Q6H PRN Administration FEVER Amino Acids 30 ml 07/06/19 17:30 07/23/19 08:43 Prosource No Carb Liquid Pkt PO 30 ml BID@0800,1730 TIKI Administration Ascorbic Acid 500 mg 07/08/19 11:00 07/23/19 10:11 Vitamin C - PO 500 mg DAILY TIKI Administration Chlorhexidine Gluconate 1 applic 06/22/19 22:00 07/22/19 21:47 Hibiclens For Decolonization - TP 1 applic HS TIKI Administration Cholecalciferol 800 unit 07/03/19 16:00 07/22/19 10:50 Vitamin D3 - PO 800 unit DAILY TIKI Administration IV Flush 4 ml 07/18/19 18:26 Triple Lumen Flush IVPUSH PRN PRN Protocol Propofol 1,000,000 mcg in 100 mls @ 2.313 mls/hr 06/22/19 14:00 07/23/19 05:49 Diprivan - IVPB 30 mcg/kg/min TITR TIKI 13.88 mls/hr Administration Protocol 5 MCG/KG/MIN Morphine Sulfate 100 mg in 100 mls @ 1 mls/hr 06/22/19 21:30 07/23/19 04:02 Morphine 100mg/100ml-0.9% Nacl IVPB 10 mg/hr TITR TIKI 10 mls/hr Administration Protocol 1 MG/HR Caspofungin 50 mg/ Sodium 250 mls @ 250 mls/hr 07/14/19 10:00 07/23/19 09:27 Chloride IVPB 250 mls/hr Q24H TIKI Administration Meropenem 1 gm/ Dextrose 100 mls @ 200 mls/hr 07/16/19 11:00 07/23/19 10:00 IVPB 200 mls/hr Q8H-IV TIKI Administration Vecuronium [place] 100 mg in 100 mls @ 5.226 mls/hr 07/17/19 11:15 07/23/19 01:24 Vecuronium [place] IVPB 1 mcg/kg/min TITR TIKI 5.226 mls/hr Administration Protocol 1 MCG/KG/MIN Furosemide 100 mg/ Dextrose 100 mls @ 10 mls/hr 07/19/19 10:15 07/23/19 02:22 IVPB 10 mg/hr TITR TIKI 10 mls/hr Administration Protocol 10 MG/HR Vancomycin HCl 1,500 mg/ 500 mls @ 250 mls/hr 07/21/19 02:00 07/23/19 04:03 Dextrose IVPB 250 mls/hr Q12H TIKI Administration Protocol Potassium Chloride 10 meq in 100 mls @ 100 mls/hr 07/23/19 08:45 07/23/19 09:58 Potassium Chloride 10 Meq Premix Ivpb - IVPB 07/23/19 11:44 100 mls/hr Q60M TIKI Administration Lacosamide 200 mg 06/23/19 10:00 07/23/19 10:07 Vimpat Injection - IVPB 200 mg BID TIKI Administration Levetiracetam 1,000 mg 06/23/19 10:00 07/23/19 10:02 Keppra Injection - IVPB 1,000 mg BID TIKI Administration Pantoprazole Sodium 40 mg 06/24/19 10:00 07/23/19 10:01 Protonix Iv IVPUSH 40 mg DAILY TIKI Administration Phenobarbital 60 mg 06/28/19 10:00 07/23/19 09:59 Phenobarbital Liquid - GT 60 mg BID TIKI Administration Polyethylene Glycol 17 gm 07/18/19 22:00 07/23/19 09:59 Miralax (For Daily Use) - PO 17 gm BID TIKI Administration Potassium Chloride 40 meq 07/21/19 10:45 07/23/19 10:11 Potassium Chloride Oral Liquid PO 40 meq DAILY TIKI Administration Potassium Phos/Sodium Phos 1 packet 07/20/19 14:00 07/23/19 05:49 Phos-Nak Packet - PO 1 packet TID TIKI Administration Spironolactone 50 mg 07/19/19 10:00 07/23/19 10:02 Aldactone - PO 50 mg DAILY TIKI Administration Topiramate 200 mg 06/23/19 14:00 07/23/19 05:50 Topamax - PO 200 mg TID TIKI Administration Zinc Sulfate 220 mg 06/23/19 22:00 07/23/19 09:59 Orazinc - PO 220 mg BID TIKI Administration ASSESSMENT/PLAN: 38 y/o male PMH MR and epilepsy who presented to ED initially with SOB and hypoxia requiring intubation, admitted to hospital for hypoxic respiratory failure due to covid-19. NEURO Propofol, Midazolam, vecuronium, and morphine CTM mental status epilepsy: Keppra, Topamax, Vimpat, and phenobarbitol with Ativan 2mg PRN for breakthrough PULM hypoxic respiratory failure 2/2 covid-19 AC 35/350/8/80% s/p Plaquenil, convalescent plasma, and Actemra CARDIO Echocardiogram 07/21/2019 EF 65% Trace MR Mild TR r/o endocarditis-case discussed wit cardiology: FLORESITA risks outweigh benefits in pt's present state ID fungemia yeast present in blood and sputum cultures continue caspofungin started 07/13 staphylococcus epidermidis bacteremia continue vancomycin BID started 07/15 cx neg FEN Hold ivf Tube feeds Vital 1.2 with free water Monitor K PPX SQ Lovenox 40mg BID Protonix 40mg QD LTD ETT replaced 07/17 LSC TLC placed 07/17 RIGHT radial A-line placed 07/17 DISPO ICU Full Code Visit type - Emergency Visit Emergency Visit: No - New Patient This patient is new to me today: No - Critical Care Critical Care patient: Yes Total Critical Care Time (in minutes): 36 Critical Care Statement: The care of this patient involved high complexity decision making to prevent further life threatening deterioration of the patient's condition and/or to evaluate & treat vital organ system(s) failure or risk of failure. ATTENDING PHYSICIAN STATEMENT I saw and evaluated the patient. I reviewed the resident's note and discussed the case with the resident. I agree with the resident's findings and plan as documented. SUBJECTIVE: OBJECTIVE: ASSESSMENT AND PLAN:
[2019-07-23] MEDS: CHOLECALCIFEROL (VIT D3) 400 UNIT (10 MCG) TABLET PO SCH (11:17)
[2019-07-23] MEDS: ENOXAPARIN NA (PORCINE) 80 MG/0.8 ML DISP.SYRIN SQ SCH ×3 (12:33→21:11)
--- NOTE | 2019-07-23 14:47 | PN ---
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 (short form) - Note 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: remains intubated fi)2 70% afebrile off pressors sedated and paralyzed, Vital Signs Period Temp Pulse Resp BP Sys/Ortiz Pulse Ox Last 24 Hr 97.3 F-100 F 102-129 35-35 112-153/60-71 95-98 cor-rrr lungs decreased bs at basesa abd soft,nt ext no edema CBC, BMP 07/21/19 06:40 07/22/19 18:04 Microbiology 07/18/19 21:10 Blood - Peripheral Venous Blood Culture - Preliminary NO GROWTH OBTAINED AFTER 96 HOURS, INCUBATION TO CONTINUE FOR 1 DAYS. 07/18/19 18:30 Blood - Peripheral Venous Blood Culture - Preliminary NO GROWTH OBTAINED AFTER 96 HOURS, INCUBATION TO CONTINUE FOR 1 DAYS. 07/15/19 12:25 Blood - Peripheral Venous Blood Culture - Final NO GROWTH AFTER 5 DAYS INCUBATION 07/16/19 15:15 Blood - Peripheral Venous Blood Culture - Final Staphylococcus Epidermidis 07/14/19 11:30 Blood - Peripheral Venous Blood Culture - Final NO GROWTH AFTER 5 DAYS INCUBATION 07/16/19 15:05 Blood - Peripheral Venous Blood Culture - Final Staphylococcus Epidermidis 07/16/19 12:30 Sputum - Endotrachea Suction/Ventilator Gram Stain - Final 07/16/19 12:30 Sputum - Endotrachea Suction/Ventilator Sputum Culture - Final Mr S Aureus Escherichia Coli 07/12/19 10:55 Blood - Peripheral Venous Blood Culture - Final NO GROWTH AFTER 5 DAYS INCUBATION 07/16/19 12:30 Urine - Urine - Catheterized Urine Culture - Final NO GROWTH OBTAINED 07/12/19 06:00 Sputum - Endotrachea Suction/Ventilator Gram Stain - Final 07/12/19 06:00 Sputum - Endotrachea Suction/Ventilator Sputum Culture - Final 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 Mr S Aureus 07/12/19 11:04 Blood - Peripheral Venous Blood Culture - Final 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 07/12/19 11:04 Blood - Peripheral Venous Yeast/Fungus Identification - Preliminary 07/01/19 18:15 Blood - Peripheral Venous Blood Culture - Final NO GROWTH AFTER 5 DAYS INCUBATION 06/29/19 12:30 Blood - Peripheral Venous Blood Culture - Final Staphylococcus Epidermidis 06/30/19 17:15 Sputum - Endotrachea Suction/Ventilator Gram Stain - Final 06/30/19 17:15 Sputum - Endotrachea Suction/Ventilator Sputum Culture - Final Escherichia Coli [employer] 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 06/28/19 09:00 Blood - Peripheral Venous Blood Culture - Final Staphylococcus Epidermidis 06/28/19 12:50 Sputum - Endotrachea Suction/Ventilator Gram Stain - Final 06/28/19 12:50 Sputum - Endotrachea Suction/Ventilator Sputum Culture - Final 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 Staphylococcus Aureus 06/25/19 13:40 Blood - Peripheral Venous Blood Culture - Final NO GROWTH AFTER 5 DAYS INCUBATION 06/25/19 13:20 Blood - Peripheral Venous Blood Culture - Final NO GROWTH AFTER 5 DAYS INCUBATION 06/28/19 12:51 Urine - Urine Caceres Urine Culture - Final NO GROWTH OBTAINED 06/22/19 13:00 Blood - Peripheral Venous Blood Culture - Final Staphylococcus Warneri 06/22/19 13:00 Blood - Peripheral Venous Blood Culture - Final Staphylococcus Epidermidis 06/24/19 00:01 Urine - Urine Caceres Urine Culture - Final NO GROWTH OBTAINED 06/24/19 00:01 Urine For Antigen Detection Legionella Antigen - Final 06/24/19 00:01 Urine For Antigen Detection Streptococcus pneumoniae Antigen (M - Final covid pcr negative (repeat) quantiferon negative imp/reccd ARDS/pneumonia- MRSA/Ecoli -vanco/meropenem-day #7 bacteremia- recurrent staph epi bacteremia- ?endocarditis- check echo repeat blood cultures negative fungemia- continue cancidas day #10 central line changed covid 19 positive -repeat pcr s/p convalescent plasma s/p tocilizumab MRSA isolation for sputum culture- esbl isolation continue vanco/meropenem/cancidas echo -no vegetation noted overall prognosis is guarded improved oxygenation today Problem List - Problems (1) Suspected COVID-19 virus infection Code(s): R68.89 - OTHER GENERAL SYMPTOMS AND SIGNS (2) Acute respiratory failure with hypoxia Code(s): J96.01 - ACUTE RESPIRATORY FAILURE WITH HYPOXIA (3) Bacteremia Code(s): R78.81 - BACTEREMIA
[2019-07-23 15:24] LABS: BLOOD UREA NITROGEN 7.5 mg/dL (7-18); CALCIUM 8.1 mg/dL (8.5-10.1); CHLORIDE 85 mmol/L (98-107); CREATININE 0.2 mg/dL (0.55-1.3); GLUCOSE,RANDOM 163 mg/dL (74-106); POTASSIUM 3.5 mmol/L (3.5-5.1); SODIUM 139 mmol/L (136-145)
[2019-07-23 15:32] LABS: ANION GAP 9 MMOL/L (8-16); CO2 > 45 mmol/L (21-32)
[2019-07-23] MEDS: ACETAMINOPHEN 1000 MG/100 ML VIAL (NON FORMULARY) IVPB PRN ×2 (16:16→22:12)
--- NOTE | 2019-07-23 16:31 | PN ---
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, Physician History of Present Illness: Pt seen and examined at bedside. He remains in the ICU. - Current Medication List Current Medications: Active Medications Acetaminophen (Ofirmev Injection -) 1,000 mg IVPB Q6H PRN PRN Reason: FEVER Last Admin: 07/23/19 16:16 Dose: 1,000 mg Documented by: Amino Acids (Prosource No Carb Liquid Pkt) 30 ml PO BID@0800,1730 [facility] Last Admin: 07/23/19 08:43 Dose: 30 ml Documented by: Ascorbic Acid (Vitamin C -) 500 mg PO DAILY [facility] Last Admin: 07/23/19 10:11 Dose: 500 mg Documented by: Chlorhexidine Gluconate (Hibiclens For Decolonization -) 1 applic TP HS [facility] Last Admin: 07/22/19 21:47 Dose: 1 applic Documented by: Cholecalciferol (Vitamin D3 -) 800 unit PO DAILY [facility] Last Admin: 07/23/19 11:17 Dose: 800 unit Documented by: Enoxaparin Sodium (Lovenox -) 80 mg SQ BID [facility] Last Admin: 07/23/19 12:54 Dose: 80 mg Documented by: IV Flush (Triple Lumen Flush) 4 ml IVPUSH PRN PRN PRN Reason: Protocol Propofol (Diprivan -) 1,000,000 mcg in 100 mls @ 2.313 mls/hr IVPB TITR [facility]; Protocol Last Admin: 07/23/19 12:33 Dose: 30 mcg/kg/min, 13.88 mls/hr Documented by: Morphine Sulfate (Morphine 100mg/100ml-0.9% Nacl) 100 mg in 100 mls @ 1 mls/hr IVPB TITR [facility]; Protocol Last Admin: 07/23/19 14:14 Dose: 10 mg/hr, 10 mls/hr Documented by: Caspofungin 50 mg/ Sodium (Chloride) 250 mls @ 250 mls/hr IVPB Q24H [facility] Last Admin: 07/23/19 09:27 Dose: 250 mls/hr Documented by: Meropenem 1 gm/ Dextrose 100 mls @ 200 mls/hr IVPB Q8H-IV [facility] Last Admin: 07/23/19 10:00 Dose: 200 mls/hr Documented by: Vecuronium Millen (Vecuronium Millen) 100 mg in 100 mls @ 5.226 mls/hr IVPB TITR [facility]; Protocol Last Admin: 07/23/19 01:24 Dose: 1 mcg/kg/min, 5.226 mls/hr Documented by: Furosemide 100 mg/ Dextrose 100 mls @ 10 mls/hr IVPB TITR [facility]; Protocol Last Admin: 07/23/19 13:31 Dose: 10 mg/hr, 10 mls/hr Documented by: Vancomycin HCl 1,500 mg/ (Dextrose) 500 mls @ 250 mls/hr IVPB Q12H [facility]; Protocol Last Admin: 07/23/19 14:15 Dose: 250 mls/hr Documented by: Lacosamide (Vimpat Injection -) 200 mg IVPB BID [facility] Last Admin: 07/23/19 10:07 Dose: 200 mg Documented by: Levetiracetam (Keppra Injection -) 1,000 mg IVPB BID [facility] Last Admin: 07/23/19 10:02 Dose: 1,000 mg Documented by: Pantoprazole Sodium (Protonix Iv) 40 mg IVPUSH DAILY [facility] Last Admin: 07/23/19 10:01 Dose: 40 mg Documented by: Phenobarbital (Phenobarbital Liquid -) 60 mg GT BID [facility] Last Admin: 07/23/19 09:59 Dose: 60 mg Documented by: Polyethylene Glycol (Miralax (For Daily Use) -) 17 gm PO BID [facility] Last Admin: 07/23/19 09:59 Dose: 17 gm Documented by: Potassium Chloride (Potassium Chloride Oral Liquid) 40 meq PO DAILY [facility] Last Admin: 07/23/19 10:11 Dose: 40 meq Documented by: Potassium Phos/Sodium Phos (Phos-Nak Packet -) 1 packet PO TID [facility] Last Admin: 07/23/19 14:14 Dose: 1 packet Documented by: Spironolactone (Aldactone -) 50 mg PO DAILY [facility] Last Admin: 07/23/19 10:02 Dose: 50 mg Documented by: Topiramate (Topamax -) 200 mg PO TID [facility] Last Admin: 07/23/19 14:15 Dose: 200 mg Documented by: Zinc Sulfate (Orazinc -) 220 mg PO BID [facility] Last Admin: 07/23/19 09:59 Dose: 220 mg Documented by: - Objective Vital Signs: Vital Signs Temperature 99.9 F H 07/23/19 14:00 Pulse Rate 135 H 05/21/20 14:00 Respiratory Rate 35 H 07/23/19 15:40 Blood Pressure 150/69 07/23/19 14:00 O2 Sat by Pulse Oximetry (%) 98 07/23/19 15:40 Constitutional: Yes: Calm Eyes: Yes: Conjunctiva Clear HENT: Yes: Atraumatic Cardiovascular: Yes: S1, S2 Respiratory: Yes: Mechanically Ventilated Gastrointestinal: Yes: Soft Genitourinary: Yes: Caceres Present Edema: Yes Edema: LLE: 1+, RLE: 1+ Neurological: Yes: Lethargy Labs: CBC, BMP 07/21/19 06:40 07/23/19 13:50 INR, PTT INR 1.06 (0.83-1.09) 07/19/19 09:04 Problem List - Problems (1) Hypernatremia Code(s): E87.0 - HYPEROSMOLALITY AND HYPERNATREMIA (2) Hypokalemia Code(s): E87.6 - HYPOKALEMIA (3) Acute respiratory failure with hypoxia Code(s): J96.01 - ACUTE RESPIRATORY FAILURE WITH HYPOXIA (4) Bacteremia Code(s): R78.81 - BACTEREMIA Assessment/Plan Current Medications Generic Name Dose Route Start Last Admin Trade Name Freq PRN Reason Stop Dose Admin Acetaminophen 1,000 mg 07/16/19 06:09 07/23/19 16:16 Ofirmev Injection - IVPB 1,000 mg Q6H PRN Administration FEVER Amino Acids 30 ml 07/06/19 17:30 07/23/19 08:43 Prosource No Carb Liquid Pkt PO 30 ml BID@0800,1730 [facility] Administration Ascorbic Acid 500 mg 07/08/19 11:00 07/23/19 10:11 Vitamin C - PO 500 mg DAILY [facility] Administration Chlorhexidine Gluconate 1 applic 06/22/19 22:00 07/22/19 21:47 Hibiclens For Decolonization - TP 1 applic HS [facility] Administration Cholecalciferol 800 unit 07/03/19 16:00 07/23/19 11:17 Vitamin D3 - PO 800 unit DAILY [facility] Administration Enoxaparin Sodium 80 mg 07/23/19 12:30 07/23/19 12:54 Lovenox - SQ 80 mg BID [facility] Administration IV Flush 4 ml 07/18/19 18:26 Triple Lumen Flush IVPUSH PRN PRN Protocol Propofol 1,000,000 mcg in 100 mls @ 2.313 mls/hr 06/22/19 14:00 07/23/19 12:33 Diprivan - IVPB 30 mcg/kg/min TITR [facility] 13.88 mls/hr Administration Protocol 5 MCG/KG/MIN Morphine Sulfate 100 mg in 100 mls @ 1 mls/hr 06/22/19 21:30 07/23/19 14:14 Morphine 100mg/100ml-0.9% Nacl IVPB 10 mg/hr TITR [facility] 10 mls/hr Administration Protocol 1 MG/HR Caspofungin 50 mg/ Sodium 250 mls @ 250 mls/hr 07/14/19 10:00 07/23/19 09:27 Chloride IVPB 250 mls/hr Q24H [facility] Administration Meropenem 1 gm/ Dextrose 100 mls @ 200 mls/hr 07/16/19 11:00 07/23/19 10:00 IVPB 200 mls/hr Q8H-IV [facility] Administration Vecuronium Millen 100 mg in 100 mls @ 5.226 mls/hr 07/17/19 11:15 07/23/19 01:24 Vecuronium Mill[place] IVPB 1 mcg/kg/min TITR [facility] 5.226 mls/hr Administration Protocol 1 MCG/KG/MIN Furosemide 100 mg/ Dextrose 100 mls @ 10 mls/hr 07/19/19 10:15 07/23/19 13:31 IVPB 10 mg/hr TITR [facility] 10 mls/hr Administration Protocol 10 MG/HR Vancomycin HCl 1,500 mg/ 500 mls @ 250 mls/hr 07/21/19 02:00 07/23/19 14:15 Dextrose IVPB 250 mls/hr Q12H [facility] Administration Protocol Lacosamide 200 mg 06/23/19 10:00 07/23/19 10:07 Vimpat Injection - IVPB 200 mg BID [facility] Administration Levetiracetam 1,000 mg 06/23/19 10:00 07/23/19 10:02 Keppra Injection - IVPB 1,000 mg BID [facility] Administration Pantoprazole Sodium 40 mg 06/24/19 10:00 07/23/19 10:01 Protonix Iv IVPUSH 40 mg DAILY [facility] Administration Phenobarbital 60 mg 06/28/19 10:00 07/23/19 09:59 Phenobarbital Liquid - GT 60 mg BID [facility] Administration Polyethylene Glycol 17 gm 07/18/19 22:00 07/23/19 09:59 Miralax (For Daily Use) - PO 17 gm BID [facility] Administration Potassium Chloride 40 meq 07/21/19 10:45 07/23/19 10:11 Potassium Chloride Oral Liquid PO 40 meq DAILY [facility] Administration Potassium Phos/Sodium Phos 1 packet 07/20/19 14:00 07/23/19 14:14 Phos-Nak Packet - PO 1 packet TID [facility] Administration Spironolactone 50 mg 07/19/19 10:00 07/23/19 10:02 Aldactone - PO 50 mg DAILY [facility] Administration Topiramate 200 mg 06/23/19 14:00 07/23/19 14:15 Topamax - PO 200 mg TID [facility] Administration Zinc Sulfate 220 mg 06/23/19 22:00 07/23/19 09:59 Orazinc - PO 220 mg BID [facility] Administration Impression 1. hypokalemia 2. hypernatremia 3. resp failure 4. fungemia 5. covid 19 infection 6. ards 7. developemental delay 8. epilepsy 9. bactermia 10. resp acidosis with compensatory met alk Plan - cont lasix - cont aldactone - monitor lytes closely - vent support - discussed with ICU team
[2019-07-23] MEDS: CHLORHEXIDINE GLUCONATE 4% CLEANSER FOR DECOLONIZATION TP SCH (21:12)
[2019-07-23] MEDS ORDERED: MIDAZOLAM IN 0.9 % SOD.CHLORID 1 MG/1 ML PLAST..BAG ONE (22:07)
[2019-07-24] MEDS ORDERED: PT OWN MED DRAWER 7, Y5N ONE ×4 (00:37→21:24)
[2019-07-24] MEDS ORDERED: MEROPENEM 1 GM VIAL (RESTRICTED TO ID) IVPB ONE ×3 (00:38→18:25)
[2019-07-24] MEDS ORDERED: DEXTROSE 5%-WATER 100 ML IVPB ONE ×3 (00:38→18:25)
[2019-07-24] MEDS: FUROSEMIDE INJECTION 100 MG in DEXTROSE 5%-WATER - 90 ML IVPB SCH ×3 (00:59→22:03)
[2019-07-24] MEDS: VANCOMYCIN HCL 1,500 MG in DEXTROSE 5%-WATER - 500 ML IVPB SCH ×2 (00:59→15:00)
[2019-07-24] MEDS: MEROPENEM 1 GM in DEXTROSE 5%-WATER 100 ML IVPB SCH ×3 (00:59→18:39)
[2019-07-24] MEDS: MIDAZOLAM 100 MG/100 ML MG IVPB SCH (05:17)
[2019-07-24] MEDS: NAPH,MB-DB/K PH,MBDB POWDER PACKET PO SCH ×3 (05:17→21:31)
[2019-07-24] MEDS: TOPIRAMATE 200 MG TABLET PO SCH ×3 (05:17→21:30)
[2019-07-24] MEDS: PROPOFOL 1,000,000 MCG/100 ML VIAL IVPB SCH ×2 (05:18→22:40)
[2019-07-24 07:42] LABS: EOS % 1.5 % (0-4.5); HEMATOCRIT 32.8 % (35.4-49); HEMOGLOBIN 10.6 GM/dL (11.7-16.9); LYMPH % 15.2 % (8-40); MCH 30.5 pg (25.7-33.7); MCHC 32.2 g/dl (32.0-35.9); MEAN CELL VOLUME 94.6 fl (80-96); MEAN PLT VOLUME 8.5 fl (7.5-11.1); MONO % 36.4 % (3.8-10.2); NEUT % 46.9 % (42.8-82.8); PLATELET COUNT 280 K/MM3 (134-434); RBC 3.47 M/mm3 (4.00-5.60); RDW 18.7 % (11.9-15.9); WHITE BLOOD COUNT 11.4 K/mm3 (4.0-10.0)
[2019-07-24 08:18] LABS: ALBUMIN 2.2 g/dl (3.4-5.0); BLOOD UREA NITROGEN 10.2 mg/dL (7-18); CALCIUM 8.2 mg/dL (8.5-10.1); CHLORIDE 84 mmol/L (98-107); GLUCOSE,RANDOM 126 mg/dL (74-106); MAGNESIUM 2.2 mg/dL (1.8-2.4); POTASSIUM 3.1 mmol/L (3.5-5.1); SODIUM 139 mmol/L (136-145)
[2019-07-24 08:21] LABS: BILIRUBIN,TOTAL 0.4 mg/dL (0.2-1); CREATININE 0.2 mg/dL (0.55-1.3); PHOSPHOROUS 4.5 mg/dL (2.5-4.9); SGOT/AST 44 U/L (15-37); SGPT/ALT 51 U/L (13-61); TOT PROT 5.2 g/dl (6.4-8.2)
[2019-07-24 08:40] LABS: ALK PHOS 149 U/L (45-117); ANION GAP 10 MMOL/L (8-16); CO2 > 45 mmol/L (21-32)
[2019-07-24 08:58] LABS: ANISOCYTOSIS 0; MACROCYTOSIS 0; PLATELET ESTIMATE NORMAL
[2019-07-24] MEDS: POLYETHYLENE GLYCOL 3350 119 GM BTL PO SCH ×2 (09:14→22:31)
[2019-07-24] MEDS: POTASSIUM CHLORIDE ORAL LIQUID 20 MEQ/15 ML PO SCH (09:14)
[2019-07-24] MEDS: ENOXAPARIN NA (PORCINE) 80 MG/0.8 ML DISP.SYRIN SQ SCH ×2 (09:14→21:31)
[2019-07-24] MEDS: levETIRAcetam 500 MG/5 ML INJECTION VIAL IVPB SCH ×2 (09:14→21:30)
[2019-07-24] MEDS: ZINC SULFATE 220 MG CAPSULE (FP) PO SCH ×2 (09:14→21:31)
[2019-07-24] MEDS: PHENobarbital 20 MG/5 ML UNIT-DOSE CUP GT SCH ×2 (09:14→22:31)
[2019-07-24] MEDS: SPIRONOLACTONE 25 MG TABLET PO SCH (09:14)
[2019-07-24] MEDS: AMINO ACIDS/PROTEIN HYDROLYS 30 ML LIQUID.PKT PO SCH ×2 (09:14→18:39)
[2019-07-24] MEDS: ASCORBIC ACID 500 MG TABLET (FP) PO SCH (09:15)
[2019-07-24] MEDS: CHOLECALCIFEROL (VIT D3) 400 UNIT (10 MCG) TABLET PO SCH (09:15)
[2019-07-24] MEDS: PANTOPRAZOLE SODIUM 40 MG VIAL IVPUSH SCH (09:15)
[2019-07-24] MEDS: Lacosamide 200 MG/20 ML VIAL IVPB SCH ×2 (09:15→21:31)
[2019-07-24] MEDS: POTASSIUM CHLORIDE 20 MEQ PREMIX IVPB 100 ML IVPB SCH ×2 (10:45→11:45)
[2019-07-24] MEDS: CASPOFUNGIN ACETATE 50 MG in SODIUM CHLORIDE 250 ML IVPB SCH (10:55)
--- NOTE | 2019-07-24 11:52 | PN ---
Teaching Attending Note Name of Resident: Miguel Taylor ATTENDING PHYSICIAN STATEMENT I saw and evaluated the patient. I reviewed the resident's note and discussed the case with the resident. I agree with the resident's findings and plan as documented. SUBJECTIVE: Patient seen and examined in the ICU. Remains intubated and sedated. No pressors. PPlat: 33 OBJECTIVE: Intake & Output 07/21/19 07/22/19 07/23/19 07/24/19 23:59 23:59 23:59 23:59 Intake Total 3349 3937.7 3922.4 1559.2 Output Total 3100 3200 3500 900 Balance 249 737.7 422.4 659.2 Weight 202 lb 13.204 oz 200 lb 2.876 oz Last Vital Signs Temp Pulse Resp BP Pulse Ox 98.1 F 117 H 35 H 130/80 99 07/24/19 10:00 07/24/19 10:00 07/24/19 10:00 07/24/19 10:00 07/24/19 10:00 Active Medications Acetaminophen (Ofirmev Injection -) 1,000 mg IVPB Q6H PRN PRN Reason: FEVER Last Admin: 07/23/19 22:12 Dose: 1,000 mg Documented by: Amino Acids (Prosource No Carb Liquid Pkt) 30 ml PO BID@0800,1730 [facility] Last Admin: 07/24/19 09:14 Dose: 30 ml Documented by: Ascorbic Acid (Vitamin C -) 500 mg PO DAILY [facility] Last Admin: 07/24/19 09:15 Dose: 500 mg Documented by: Chlorhexidine Gluconate (Hibiclens For Decolonization -) 1 applic TP HS [facility] Last Admin: 07/23/19 21:12 Dose: 1 applic Documented by: Cholecalciferol (Vitamin D3 -) 800 unit PO DAILY [facility] Last Admin: 07/24/19 09:15 Dose: 800 unit Documented by: Enoxaparin Sodium (Lovenox -) 80 mg SQ BID [facility] Last Admin: 07/24/19 09:14 Dose: 80 mg Documented by: IV Flush (Triple Lumen Flush) 4 ml IVPUSH PRN PRN PRN Reason: Protocol Propofol (Diprivan -) 1,000,000 mcg in 100 mls @ 2.313 mls/hr IVPB TITR [facility]; Protocol Last Admin: 07/24/19 05:18 Dose: 30 mcg/kg/min, 13.88 mls/hr Documented by: Morphine Sulfate (Morphine 100mg/100ml-0.9% Nacl) 100 mg in 100 mls @ 1 mls/hr IVPB TITR [facility]; Protocol Last Admin: 07/23/19 23:28 Dose: 7 mg/hr, 7 mls/hr Documented by: Caspofungin 50 mg/ Sodium (Chloride) 250 mls @ 250 mls/hr IVPB Q24H [facility] Last Admin: 07/24/19 10:55 Dose: 250 mls/hr Documented by: Meropenem 1 gm/ Dextrose 100 mls @ 200 mls/hr IVPB Q8H-IV [facility] Last Admin: 07/24/19 09:14 Dose: 200 mls/hr Documented by: Vecuronium [place] (Vecuronium [place]) 100 mg in 100 mls @ 5.226 mls/hr IVPB TITR [facility]; Protocol Last Admin: 07/23/19 23:28 Dose: 1 mcg/kg/min, 5.226 mls/hr Documented by: Furosemide 100 mg/ Dextrose 100 mls @ 10 mls/hr IVPB TITR [facility]; Protocol Last Admin: 07/24/19 00:59 Dose: 10 mg/hr, 10 mls/hr Documented by: Vancomycin HCl 1,500 mg/ (Dextrose) 500 mls @ 250 mls/hr IVPB Q12H [facility]; Protocol Last Admin: 07/24/19 00:59 Dose: 250 mls/hr Documented by: Lacosamide (Vimpat Injection -) 200 mg IVPB BID [facility] Last Admin: 07/24/19 09:15 Dose: 200 mg Documented by: Levetiracetam (Keppra Injection -) 1,000 mg IVPB BID [facility] Last Admin: 07/24/19 09:14 Dose: 1,000 mg Documented by: Pantoprazole Sodium (Protonix Iv) 40 mg IVPUSH DAILY [facility] Last Admin: 07/24/19 09:15 Dose: 40 mg Documented by: Phenobarbital (Phenobarbital Liquid -) 60 mg GT BID [facility] Last Admin: 07/24/19 09:14 Dose: 60 mg Documented by: Polyethylene Glycol (Miralax (For Daily Use) -) 17 gm PO BID [facility] Last Admin: 07/24/19 09:14 Dose: 17 gm Documented by: Potassium Chloride (Potassium Chloride Oral Liquid) 40 meq PO DAILY [facility] Last Admin: 07/24/19 09:14 Dose: 40 meq Documented by: Potassium Phos/Sodium Phos (Phos-Nak Packet -) 1 packet PO TID [facility] Last Admin: 07/24/19 05:17 Dose: 1 packet Documented by: Spironolactone (Aldactone -) 50 mg PO DAILY [facility] Last Admin: 07/24/19 09:14 Dose: 50 mg Documented by: Topiramate (Topamax -) 200 mg PO TID [facility] Last Admin: 07/24/19 05:17 Dose: 200 mg Documented by: Zinc Sulfate (Orazinc -) 220 mg PO BID [facility] Last Admin: 07/24/19 09:14 Dose: 220 mg Documented by: Gen: intubated, sedated Heart: RRR Lung: scattered rhonchi Abd: soft, nontender Ext: no edema Laboratory Results - last 24 hr 07/23/19 07/24/19 07/24/19 13:50 06:00 06:00 WBC 11.4 H RBC 3.47 L Hgb 10.6 L Hct 32.8 L MCV 94.6 MCH 30.5 MCHC 32.2 RDW 18.7 H Plt Count 280 D MPV 8.5 Absolute Neuts (auto) 5.4 Neutrophils % 46.9 Neutrophils % (Manual) 76.0 D Band Neutrophils % 0.0 Lymphocytes % 15.2 D Lymphocytes % (Manual) 16.0 D Monocytes % 36.4 H D Monocytes % (Manual) 6 Eosinophils % 1.5 D Eosinophils % (Manual) 0.0 D Basophils % 0.0 Basophils % (Manual) 0.0 Myelocytes % (Man) 0 Promyelocytes % (Man) 0 Blast Cells % (Manual) 0 Nucleated RBC % 0 Metamyelocytes 2 D Hypochromia 0 Platelet Estimate Normal Polychromasia 0 Poikilocytosis 0 Basophilic Stippling 1+ Anisocytosis 0 Microcytosis 0 Macrocytosis 0 Stomatocytes 1+ Sodium 139 139 Potassium 3.5 3.1 L Chloride 85 L 84 L Carbon Dioxide > 45 H > 45 H Anion Gap 9 10 BUN 7.5 10.2 Creatinine 0.2 L 0.2 L Est GFR (CKD-EPI)AfAm 233.83 233.83 Est GFR (CKD-EPI)NonAf 201.75 201.75 Random Glucose 163 H 126 H Calcium 8.1 L 8.2 L Phosphorus 4.5 Magnesium 2.0 2.2 Total Bilirubin 0.4 AST 44 H ALT 51 Alkaline Phosphatase 149 H Total Protein 5.2 L Albumin 2.2 L ASSESSMENT AND PLAN: Acute Hypoxic and Hypercapneic Respiratory Failure COVID19 Pneumonia E Coli Pneumonia Fungenmia Bacteremia Septic Shock Seizure Disorder Mental Retardation - continue antibiotics, antifungals per ID - f/u pending cultures - continue antiepileptics - Cardiology consult noted, hold on FLORESITA for now - low tidal volume ventilation - titrate FiO2, PEEP to keep SpO2 >90% - sedate for vent synchrony - enteral feeds - DVT/GI prophylaxis - continue ICU monitoring Family meeting for GOC. Will offer Tracheostomy if parameters become amenable. Dr Callaway Critical care time spent in reviewing chart, evaluating patient and formulating plan 35 min
--- NOTE | 2019-07-24 12:25 | PN ---
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, Physician History of Present Illness: Pt seen and examined at bedside. He appears comfortable. He remains in the ICU and remains intubated. - Current Medication List Current Medications: Active Medications Acetaminophen (Ofirmev Injection -) 1,000 mg IVPB Q6H PRN PRN Reason: FEVER Last Admin: 07/23/19 22:12 Dose: 1,000 mg Documented by: Amino Acids (Prosource No Carb Liquid Pkt) 30 ml PO BID@0800,1730 [facility] Last Admin: 07/24/19 09:14 Dose: 30 ml Documented by: Ascorbic Acid (Vitamin C -) 500 mg PO DAILY [facility] Last Admin: 07/24/19 09:15 Dose: 500 mg Documented by: Chlorhexidine Gluconate (Hibiclens For Decolonization -) 1 applic TP HS [facility] Last Admin: 07/23/19 21:12 Dose: 1 applic Documented by: Cholecalciferol (Vitamin D3 -) 800 unit PO DAILY [facility] Last Admin: 07/24/19 09:15 Dose: 800 unit Documented by: Enoxaparin Sodium (Lovenox -) 80 mg SQ BID [facility] Last Admin: 07/24/19 09:14 Dose: 80 mg Documented by: IV Flush (Triple Lumen Flush) 4 ml IVPUSH PRN PRN PRN Reason: Protocol Propofol (Diprivan -) 1,000,000 mcg in 100 mls @ 2.313 mls/hr IVPB TITR [facility]; Protocol Last Admin: 07/24/19 05:18 Dose: 30 mcg/kg/min, 13.88 mls/hr Documented by: Morphine Sulfate (Morphine 100mg/100ml-0.9% Nacl) 100 mg in 100 mls @ 1 mls/hr IVPB TITR [facility]; Protocol Last Admin: 07/23/19 23:28 Dose: 7 mg/hr, 7 mls/hr Documented by: Caspofungin 50 mg/ Sodium (Chloride) 250 mls @ 250 mls/hr IVPB Q24H [facility] Last Admin: 07/24/19 10:55 Dose: 250 mls/hr Documented by: Meropenem 1 gm/ Dextrose 100 mls @ 200 mls/hr IVPB Q8H-IV [facility] Last Admin: 07/24/19 09:14 Dose: 200 mls/hr Documented by: Vecuronium [place] (Vecuronium [place]) 100 mg in 100 mls @ 5.226 mls/hr IVPB TITR [facility]; Protocol Last Admin: 07/23/19 23:28 Dose: 1 mcg/kg/min, 5.226 mls/hr Documented by: Furosemide 100 mg/ Dextrose 100 mls @ 10 mls/hr IVPB TITR [facility]; Protocol Last Admin: 07/24/19 00:59 Dose: 10 mg/hr, 10 mls/hr Documented by: Vancomycin HCl 1,500 mg/ (Dextrose) 500 mls @ 250 mls/hr IVPB Q12H [facility]; Protocol Last Admin: 07/24/19 00:59 Dose: 250 mls/hr Documented by: Lacosamide (Vimpat Injection -) 200 mg IVPB BID [facility] Last Admin: 07/24/19 09:15 Dose: 200 mg Documented by: Levetiracetam (Keppra Injection -) 1,000 mg IVPB BID [facility] Last Admin: 07/24/19 09:14 Dose: 1,000 mg Documented by: Pantoprazole Sodium (Protonix Iv) 40 mg IVPUSH DAILY [facility] Last Admin: 07/24/19 09:15 Dose: 40 mg Documented by: Phenobarbital (Phenobarbital Liquid -) 60 mg GT BID [facility] Last Admin: 07/24/19 09:14 Dose: 60 mg Documented by: Polyethylene Glycol (Miralax (For Daily Use) -) 17 gm PO BID [facility] Last Admin: 07/24/19 09:14 Dose: 17 gm Documented by: Potassium Chloride (Potassium Chloride Oral Liquid) 40 meq PO DAILY [facility] Last Admin: 07/24/19 09:14 Dose: 40 meq Documented by: Potassium Phos/Sodium Phos (Phos-Nak Packet -) 1 packet PO TID [facility] Last Admin: 07/24/19 05:17 Dose: 1 packet Documented by: Spironolactone (Aldactone -) 50 mg PO DAILY [facility] Last Admin: 07/24/19 09:14 Dose: 50 mg Documented by: Topiramate (Topamax -) 200 mg PO TID [facility] Last Admin: 07/24/19 05:17 Dose: 200 mg Documented by: Zinc Sulfate (Orazinc -) 220 mg PO BID [facility] Last Admin: 07/24/19 09:14 Dose: 220 mg Documented by: - Objective Vital Signs: Vital Signs Temperature 98.1 F 07/24/19 10:00 Pulse Rate 117 H 07/24/19 10:00 Respiratory Rate 35 H 07/24/19 10:00 Blood Pressure 130/80 07/24/19 10:00 O2 Sat by Pulse Oximetry (%) 99 07/24/19 10:00 Constitutional: Yes: Calm Eyes: Yes: Conjunctiva Clear HENT: Yes: Atraumatic Neck: Yes: Supple Cardiovascular: Yes: S1, S2 Respiratory: Yes: Mechanically Ventilated Gastrointestinal: Yes: Soft Genitourinary: Yes: Caceres Present Musculoskeletal: Yes: Muscle Weakness Edema: Yes Neurological: Yes: Lethargy Labs: CBC, BMP 07/24/19 06:00 07/24/19 06:00 INR, PTT INR 1.06 (0.83-1.09) 07/19/19 09:04 Problem List - Problems (1) Hypernatremia Code(s): E87.0 - HYPEROSMOLALITY AND HYPERNATREMIA (2) Hypokalemia Code(s): E87.6 - HYPOKALEMIA (3) Acute respiratory failure with hypoxia Code(s): J96.01 - ACUTE RESPIRATORY FAILURE WITH HYPOXIA (4) Bacteremia Code(s): R78.81 - BACTEREMIA Assessment/Plan Current Medications Generic Name Dose Route Start Last Admin Trade Name Walterq PRN Reason Stop Dose Admin Acetaminophen 1,000 mg 07/16/19 06:09 07/23/19 22:12 Ofirmev Injection - IVPB 1,000 mg Q6H PRN Administration FEVER Amino Acids 30 ml 07/06/19 17:30 07/24/19 09:14 Prosource No Carb Liquid Pkt PO 30 ml BID@0800,1730 [facility] Administration Ascorbic Acid 500 mg 07/08/19 11:00 07/24/19 09:15 Vitamin C - PO 500 mg DAILY [facility] Administration Chlorhexidine Gluconate 1 applic 06/22/19 22:00 07/23/19 21:12 Hibiclens For Decolonization - TP 1 applic HS [facility] Administration Cholecalciferol 800 unit 07/03/19 16:00 07/24/19 09:15 Vitamin D3 - PO 800 unit DAILY [facility] Administration Enoxaparin Sodium 80 mg 07/23/19 12:30 07/24/19 09:14 Lovenox - SQ 80 mg BID [facility] Administration IV Flush 4 ml 07/18/19 18:26 Triple Lumen Flush IVPUSH PRN PRN Protocol Propofol 1,000,000 mcg in 100 mls @ 2.313 mls/hr 06/22/19 14:00 07/24/19 05:18 Diprivan - IVPB 30 mcg/kg/min TITR [facility] 13.88 mls/hr Administration Protocol 5 MCG/KG/MIN Morphine Sulfate 100 mg in 100 mls @ 1 mls/hr 06/22/19 21:30 07/23/19 23:28 Morphine 100mg/100ml-0.9% Nacl IVPB 7 mg/hr TITR [facility] 7 mls/hr Administration Protocol 1 MG/HR Caspofungin 50 mg/ Sodium 250 mls @ 250 mls/hr 07/14/19 10:00 07/24/19 10:55 Chloride IVPB 250 mls/hr Q24H [facility] Administration Meropenem 1 gm/ Dextrose 100 mls @ 200 mls/hr 07/16/19 11:00 07/24/19 09:14 IVPB 200 mls/hr Q8H-IV [facility] Administration Vecuronium [place] 100 mg in 100 mls @ 5.226 mls/hr 07/17/19 11:15 07/23/19 23:28 Vecuronium [place] IVPB 1 mcg/kg/min TITR [facility] 5.226 mls/hr Administration Protocol 1 MCG/KG/MIN Furosemide 100 mg/ Dextrose 100 mls @ 10 mls/hr 07/19/19 10:15 07/24/19 00:59 IVPB 10 mg/hr TITR [facility] 10 mls/hr Administration Protocol 10 MG/HR Vancomycin HCl 1,500 mg/ 500 mls @ 250 mls/hr 07/21/19 02:00 07/24/19 00:59 Dextrose IVPB 250 mls/hr Q12H [facility] Administration Protocol Lacosamide 200 mg 06/23/19 10:00 07/24/19 09:15 Vimpat Injection - IVPB 200 mg BID [facility] Administration Levetiracetam 1,000 mg 06/23/19 10:00 07/24/19 09:14 Keppra Injection - IVPB 1,000 mg BID [facility] Administration Pantoprazole Sodium 40 mg 06/24/19 10:00 07/24/19 09:15 Protonix Iv IVPUSH 40 mg DAILY [facility] Administration Phenobarbital 60 mg 06/28/19 10:00 07/24/19 09:14 Phenobarbital Liquid - GT 60 mg BID [facility] Administration Polyethylene Glycol 17 gm 07/18/19 22:00 07/24/19 09:14 Miralax (For Daily Use) - PO 17 gm BID [facility] Administration Potassium Chloride 40 meq 07/21/19 10:45 07/24/19 09:14 Potassium Chloride Oral Liquid PO 40 meq DAILY [facility] Administration Potassium Phos/Sodium Phos 1 packet 07/20/19 14:00 07/24/19 05:17 Phos-Nak Packet - PO 1 packet TID [facility] Administration Spironolactone 50 mg 07/19/19 10:00 07/24/19 09:14 Aldactone - PO 50 mg DAILY [facility] Administration Topiramate 200 mg 06/23/19 14:00 07/24/19 05:17 Topamax - PO 200 mg TID [facility] Administration Zinc Sulfate 220 mg 06/23/19 22:00 07/24/19 09:14 Orazinc - PO 220 mg BID [facility] Administration Impression 1. hypokalemia 2. hypernatremia 3. resp failure 4. fungemia 5. covid 19 infection 6. ards 7. developemental delay 8. epilepsy 9. bactermia 10. resp acidosis with compensatory met alk Plan - replace potassium - cont potassium supplements - monitor levels closely as he is on diuretics - can titrate up aldactone as needed - vent support - discussed with ICU team
--- NOTE | 2019-07-24 20:27 | PN ---
Physical Exam: SUBJECTIVE: Patient seen and examined OBJECTIVE: Vital Signs Period Temp Pulse Resp BP Sys/Ortiz Pulse Ox Last 24 Hr 97.3 F-103.1 F 113-146 23-35 109-131/63-80 90-100 GENERAL: The patient is sedated and unresponsive. HEAD: Normal with no signs of trauma. EYES: Pupils pinpoint, no scleral icterus. NECK: Trachea midline, supple, ETT in place. LUNGS: See attending note for full PE. HEART: Regular rate and rhythm. ABDOMEN: Soft, nontender, nondistended. EXTREMITIES:warm, no edema. Laboratory Results - last 24 hr 07/24/19 07/24/19 06:00 06:00 WBC 11.4 H RBC 3.47 L Hgb 10.6 L Hct 32.8 L MCV 94.6 MCH 30.5 MCHC 32.2 RDW 18.7 H Plt Count 280 D MPV 8.5 Absolute Neuts (auto) 5.4 Neutrophils % 46.9 Neutrophils % (Manual) 76.0 D Band Neutrophils % 0.0 Lymphocytes % 15.2 D Lymphocytes % (Manual) 16.0 D Monocytes % 36.4 H D Monocytes % (Manual) 6 Eosinophils % 1.5 D Eosinophils % (Manual) 0.0 D Basophils % 0.0 Basophils % (Manual) 0.0 Myelocytes % (Man) 0 Promyelocytes % (Man) 0 Blast Cells % (Manual) 0 Nucleated RBC % 0 Metamyelocytes 2 D Hypochromia 0 Platelet Estimate Normal Polychromasia 0 Poikilocytosis 0 Basophilic Stippling 1+ Anisocytosis 0 Microcytosis 0 Macrocytosis 0 Stomatocytes 1+ Sodium 139 Potassium 3.1 L Chloride 84 L Carbon Dioxide > 45 H Anion Gap 10 BUN 10.2 Creatinine 0.2 L Est GFR (CKD-EPI)AfAm 233.83 Est GFR (CKD-EPI)NonAf 201.75 Random Glucose 126 H Calcium 8.2 L Phosphorus 4.5 Magnesium 2.2 Total Bilirubin 0.4 AST 44 H ALT 51 Alkaline Phosphatase 149 H Total Protein 5.2 L Albumin 2.2 L Active Medications Generic Name Dose Route Start Last Admin Trade Name Freq PRN Reason Stop Dose Admin Acetaminophen 1,000 mg 07/16/19 06:09 07/23/19 22:12 Ofirmev Injection - IVPB 1,000 mg Q6H PRN Administration FEVER Amino Acids 30 ml 07/06/19 17:30 07/24/19 18:39 Prosource No Carb Liquid Pkt PO 30 ml BID@0800,1730 TIKI Administration Ascorbic Acid 500 mg 07/08/19 11:00 07/24/19 09:15 Vitamin C - PO 500 mg DAILY TIKI Administration Chlorhexidine Gluconate 1 applic 06/22/19 22:00 07/23/19 21:12 Hibiclens For Decolonization - TP 1 applic HS TIKI Administration Cholecalciferol 800 unit 07/03/19 16:00 07/24/19 09:15 Vitamin D3 - PO 800 unit DAILY TIKI Administration Enoxaparin Sodium 80 mg 07/23/19 12:30 07/24/19 09:14 Lovenox - SQ 80 mg BID TIKI Administration IV Flush 4 ml 07/18/19 18:26 Triple Lumen Flush IVPUSH PRN PRN Protocol Propofol 1,000,000 mcg in 100 mls @ 2.313 mls/hr 06/22/19 14:00 07/24/19 17:00 Diprivan - IVPB 30 mcg/kg/min TITR TIKI 13.88 mls/hr Titration Protocol 5 MCG/KG/MIN Morphine Sulfate 100 mg in 100 mls @ 1 mls/hr 06/22/19 21:30 07/24/19 15:00 Morphine 100mg/100ml-0.9% Nacl IVPB 7 mg/hr TITR TIKI 7 mls/hr Infusion Protocol 1 MG/HR Caspofungin 50 mg/ Sodium 250 mls @ 250 mls/hr 07/14/19 10:00 07/24/19 10:55 Chloride IVPB 250 mls/hr Q24H TIKI Administration Meropenem 1 gm/ Dextrose 100 mls @ 200 mls/hr 07/16/19 11:00 07/24/19 18:39 IVPB 200 mls/hr Q8H-IV TIKI Administration Vecuronium [place] 100 mg in 100 mls @ 5.226 mls/hr 07/17/19 11:15 07/24/19 18:37 Vecuronium [place] IVPB 1 mcg/kg/min TITR TIKI 5.226 mls/hr Titration Protocol 1 MCG/KG/MIN Furosemide 100 mg/ Dextrose 100 mls @ 10 mls/hr 07/19/19 10:15 07/24/19 11:45 IVPB 10 mg/hr TITR TIKI 10 mls/hr Administration Protocol 10 MG/HR Vancomycin HCl 1,500 mg/ 500 mls @ 250 mls/hr 07/21/19 02:00 07/24/19 15:00 Dextrose IVPB 250 mls/hr Q12H TIKI Administration Protocol Lacosamide 200 mg 06/23/19 10:00 07/24/19 09:15 Vimpat Injection - IVPB 200 mg BID TKII Administration Levetiracetam 1,000 mg 06/23/19 10:00 07/24/19 09:14 Keppra Injection - IVPB 1,000 mg BID TIKI Administration Pantoprazole Sodium 40 mg 06/24/19 10:00 07/24/19 09:15 Protonix Iv IVPUSH 40 mg DAILY TIKI Administration Phenobarbital 60 mg 06/28/19 10:00 07/24/19 09:14 Phenobarbital Liquid - GT 60 mg BID TIKI Administration Polyethylene Glycol 17 gm 07/18/19 22:00 07/24/19 09:14 Miralax (For Daily Use) - PO 17 gm BID TIKI Administration Potassium Chloride 40 meq 07/21/19 10:45 07/24/19 09:14 Potassium Chloride Oral Liquid PO 40 meq DAILY TIKI Administration Potassium Phos/Sodium Phos 1 packet 07/20/19 14:00 07/24/19 15:00 Phos-Nak Packet - PO 1 packet TID TIKI Administration Spironolactone 50 mg 07/19/19 10:00 07/24/19 09:14 Aldactone - PO 50 mg DAILY TIKI Administration Topiramate 200 mg 06/23/19 14:00 07/24/19 15:00 Topamax - PO 200 mg TID TIKI Administration Zinc Sulfate 220 mg 06/23/19 22:00 07/24/19 09:14 Orazinc - PO 220 mg BID TIKI Administration ASSESSMENT/PLAN: Kumar Hurtado is a 38M with PMH MR and epilepsy who presented to ED initially with SOB and hypoxia requiring intubation, admitted to hospital for hypoxic respiratory failure due to covid-19. NAEO. FiO2 weaned to 70%. Patient tolerating Lasix drip and aldactone, but K 3.1, repleting with PO and IV K. Overnight fever to 100.3F, on cooling blanket and improved. Sedated on propofol@30, versed@2. Paralyzed on vec@1. NEURO #post-intubation sedation - continue midazolam, propofol, and morphine - wean as tolerated - CTM mental status #epilepsy - continue Keppra, Topamax, Vimpat, and phenobarbitol - Ativan 2mg PRN for breakthrough PULM #hypoxic respiratory failure 2/2 covid-19 - intubated - AC 35/280/8/70% PPlat 33 - wean FIO2 with goal SpO2 >90% - continue vecuronium drip - s/p Plaquenil, convalescent plasma, and Actemra CARDIO #hypotension - resolved - CTM VS ID #fungemia - yeast present in blood and sputum cultures - continue caspofungin started 07/13 - Dr. Lawrence olea #bacteremia - continue vancomycin - continue meropenem FEN #diet - continue tube feeds Vital 1.2 #hypokalemia - CTM daily K - continue daily 40mg NGT KCl while on Lasix drip - 20mEq KCl IV #electrolytes - replete PRN PPX #DVT - Full Dose Lovenox #stress ulcer - Protonix 40mg QD LTD - ETT replaced 07/17 - LSC TLC placed 07/17 - R radial A-line placed 07/17 DISPO - ICU - Full Code - Family refuses to come in to see patient Visit type - Emergency Visit Emergency Visit: No - New Patient This patient is new to me today: No - Critical Care Critical Care patient: Yes Total Critical Care Time (in minutes): 35 Critical Care Statement: The care of this patient involved high complexity decision making to prevent further life threatening deterioration of the patient's condition and/or to evaluate & treat vital organ system(s) failure or risk of failure. ATTENDING PHYSICIAN STATEMENT I saw and evaluated the patient. I reviewed the resident's note and discussed the case with the resident. I agree with the resident's findings and plan as documented. SUBJECTIVE: OBJECTIVE: ASSESSMENT AND PLAN:
[2019-07-24] MEDS: CHLORHEXIDINE GLUCONATE 4% CLEANSER FOR DECOLONIZATION TP SCH (21:31)
--- NOTE | 2019-07-24 22:06 | PN ---
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, Physician Chief Complaint: INTUBATED SEDATED ON VENTILATOR AFEBRILE - Current Medication List Current Medications: Active Medications Acetaminophen (Ofirmev Injection -) 1,000 mg IVPB Q6H PRN PRN Reason: FEVER Last Admin: 07/23/19 22:12 Dose: 1,000 mg Documented by: Amino Acids (Prosource No Carb Liquid Pkt) 30 ml PO BID@0800,1730 [facility] Last Admin: 07/24/19 18:39 Dose: 30 ml Documented by: Ascorbic Acid (Vitamin C -) 500 mg PO DAILY [facility] Last Admin: 07/24/19 09:15 Dose: 500 mg Documented by: Chlorhexidine Gluconate (Hibiclens For Decolonization -) 1 applic TP HS [facility] Last Admin: 07/24/19 21:31 Dose: 1 applic Documented by: Cholecalciferol (Vitamin D3 -) 800 unit PO DAILY [facility] Last Admin: 07/24/19 09:15 Dose: 800 unit Documented by: Enoxaparin Sodium (Lovenox -) 80 mg SQ BID [facility] Last Admin: 07/24/19 21:31 Dose: 80 mg Documented by: IV Flush (Triple Lumen Flush) 4 ml IVPUSH PRN PRN PRN Reason: Protocol Propofol (Diprivan -) 1,000,000 mcg in 100 mls @ 2.313 mls/hr IVPB TITR [facility]; Protocol Last Titration: 07/24/19 17:00 Dose: 30 mcg/kg/min, 13.88 mls/hr Documented by: Morphine Sulfate (Morphine 100mg/100ml-0.9% Nacl) 100 mg in 100 mls @ 1 mls/hr IVPB TITR [facility]; Protocol Last Infusion: 07/24/19 15:00 Dose: 7 mg/hr, 7 mls/hr Documented by: Caspofungin 50 mg/ Sodium (Chloride) 250 mls @ 250 mls/hr IVPB Q24H [facility] Last Admin: 07/24/19 10:55 Dose: 250 mls/hr Documented by: Meropenem 1 gm/ Dextrose 100 mls @ 200 mls/hr IVPB Q8H-IV [facility] Last Admin: 07/24/19 18:39 Dose: 200 mls/hr Documented by: Vecuronium [place] (Vecuronium [place]) 100 mg in 100 mls @ 5.226 mls/hr IVPB TITR TIKI; Protocol Last Titration: 07/24/19 18:37 Dose: 1 mcg/kg/min, 5.226 mls/hr Documented by: Furosemide 100 mg/ Dextrose 100 mls @ 10 mls/hr IVPB TITR [facility]; Protocol Last Admin: 07/24/19 22:03 Dose: 10 mg/hr, 10 mls/hr Documented by: Vancomycin HCl 1,500 mg/ (Dextrose) 500 mls @ 250 mls/hr IVPB Q12H [facility]; Protocol Last Admin: 07/24/19 15:00 Dose: 250 mls/hr Documented by: Lacosamide (Vimpat Injection -) 200 mg IVPB BID [facility] Last Admin: 07/24/19 21:31 Dose: 200 mg Documented by: Levetiracetam (Keppra Injection -) 1,000 mg IVPB BID [facility] Last Admin: 07/24/19 21:30 Dose: 1,000 mg Documented by: Pantoprazole Sodium (Protonix Iv) 40 mg IVPUSH DAILY [facility] Last Admin: 07/24/19 09:15 Dose: 40 mg Documented by: Phenobarbital (Phenobarbital Liquid -) 60 mg GT BID [facility] Last Admin: 07/24/19 09:14 Dose: 60 mg Documented by: Polyethylene Glycol (Miralax (For Daily Use) -) 17 gm PO BID [facility] Last Admin: 07/24/19 09:14 Dose: 17 gm Documented by: Potassium Chloride (Potassium Chloride Oral Liquid) 40 meq PO DAILY [facility] Last Admin: 07/24/19 09:14 Dose: 40 meq Documented by: Potassium Phos/Sodium Phos (Phos-Nak Packet -) 1 packet PO TID [facility] Last Admin: 07/24/19 21:31 Dose: 1 packet Documented by: Spironolactone (Aldactone -) 50 mg PO DAILY [facility] Last Admin: 07/24/19 09:14 Dose: 50 mg Documented by: Topiramate (Topamax -) 200 mg PO TID [facility] Last Admin: 07/24/19 21:30 Dose: 200 mg Documented by: Zinc Sulfate (Orazinc -) 220 mg PO BID [facility] Last Admin: 07/24/19 21:31 Dose: 220 mg Documented by: - Objective Vital Signs: Vital Signs Temperature 98.2 F 07/24/19 18:00 Pulse Rate 120 H 07/24/19 18:00 Respiratory Rate 35 H 07/24/19 21:45 Blood Pressure 127/79 07/24/19 18:00 O2 Sat by Pulse Oximetry (%) 91 L 07/24/19 21:45 Constitutional: Yes: No Distress Cardiovascular: Yes: Regular Rate and Rhythm, S1, S2 Respiratory: Yes: Mechanically Ventilated Gastrointestinal: Yes: Normal Bowel Sounds, Soft Labs: CBC, BMP 07/24/19 06:00 07/24/19 06:00 INR, PTT INR 1.06 (0.83-1.09) 07/19/19 09:04 Assessment/Plan RESP FAILURE BILATERAL PNEUMONIA/ARDS + SPUTUM MRSA/ ECOLI COVID-19+ S/P TOCILIZUMAB, PLASMA +BC SCN CONTINUE VENTILATORY SUPPORT VANCOMYCIN/ ERTAPENEM/CANCIDAS AIRBORNE PRECAUTIONS
[2019-07-25] MEDS ORDERED: DEXTROSE 5%-WATER 100 ML IVPB ONE ×4 (02:19→21:04)
[2019-07-25] MEDS ORDERED: PT OWN MED DRAWER 7, Y5N ONE ×2 (02:19→09:53)
[2019-07-25] MEDS ORDERED: MEROPENEM 1 GM VIAL (RESTRICTED TO ID) IVPB ONE ×4 (02:19→21:04)
[2019-07-25] MEDS: MEROPENEM 1 GM in DEXTROSE 5%-WATER 100 ML IVPB SCH ×3 (02:20→17:57)
[2019-07-25] MEDS: VANCOMYCIN HCL 1,500 MG in DEXTROSE 5%-WATER - 500 ML IVPB SCH ×2 (02:21→13:56)
[2019-07-25] MEDS: PROPOFOL 1,000,000 MCG/100 ML VIAL IVPB SCH ×3 (05:28→21:42)
[2019-07-25] MEDS: MORPHINE SULFATE/0.9% NACL/PF 100 MG/100 ML BAG IVPB SCH ×2 (05:28→08:37)
[2019-07-25] MEDS: TOPIRAMATE 200 MG TABLET PO SCH ×3 (05:29→21:55)
[2019-07-25] MEDS: NAPH,MB-DB/K PH,MBDB POWDER PACKET PO SCH ×3 (05:31→21:55)
[2019-07-25] MEDS: AMINO ACIDS/PROTEIN HYDROLYS 30 ML LIQUID.PKT PO SCH ×2 (08:38→17:56)
[2019-07-25] MEDS: FUROSEMIDE INJECTION 100 MG in DEXTROSE 5%-WATER - 90 ML IVPB SCH ×2 (09:00→21:34)
[2019-07-25] MEDS: ENOXAPARIN NA (PORCINE) 80 MG/0.8 ML DISP.SYRIN SQ SCH ×2 (09:46→21:53)
[2019-07-25] MEDS: POTASSIUM CHLORIDE ORAL LIQUID 20 MEQ/15 ML PO SCH (09:47)
[2019-07-25] MEDS: POLYETHYLENE GLYCOL 3350 119 GM BTL PO SCH ×2 (09:47→21:58)
[2019-07-25] MEDS: Lacosamide 200 MG/20 ML VIAL IVPB SCH ×2 (09:48→22:04)
[2019-07-25] MEDS: levETIRAcetam 500 MG/5 ML INJECTION VIAL IVPB SCH ×2 (09:48→22:01)
[2019-07-25] MEDS: PANTOPRAZOLE SODIUM 40 MG VIAL IVPUSH SCH (09:49)
[2019-07-25] MEDS: PHENobarbital 20 MG/5 ML UNIT-DOSE CUP GT SCH ×2 (09:49→21:54)
[2019-07-25] MEDS: ASCORBIC ACID 500 MG TABLET (FP) PO SCH (09:50)
[2019-07-25] MEDS: ZINC SULFATE 220 MG CAPSULE (FP) PO SCH ×2 (09:50→21:55)
[2019-07-25] MEDS: SPIRONOLACTONE 25 MG TABLET PO SCH (09:50)
[2019-07-25] MEDS: CHOLECALCIFEROL (VIT D3) 400 UNIT (10 MCG) TABLET PO SCH (09:54)
[2019-07-25] MEDS: CASPOFUNGIN ACETATE 50 MG in SODIUM CHLORIDE 250 ML IVPB SCH (10:23)
--- NOTE | 2019-07-25 10:46 | PN ---
Physical Exam: SUBJECTIVE: No acute events overnight. Continued attempts to wean vent settings for potential tracheostomy. Family discussion occurred yesterday with result being family approval of tracheostomy and continued full code status. Pplt 32 today. OBJECTIVE: Vital Signs Period Temp Pulse Resp BP Sys/Ortiz Pulse Ox Last 24 Hr 97.0 F-99.1 F 114-125 20-35 119-149/71-86 90-98 GENERAL: Intubated, paralyzed, sedated HEENT: equal pupils, minimally reactive with light, ETT in place NECK: L IJ TLC C/D/I LUNGS: Bilateral rhonchi, AC mode 35/280/60%/ HEART: Tachycardic with regular rhythm, S1, S2 without murmur ABDOMEN: Soft, NT/ND. : Caceres in place with yellow urine drainage (no sediment) EXTREMITIES: 1+ pulses, warm, 1+ edema SKIN: Warm, dry, no rashes noted Active Medications Generic Name Dose Route Start Last Admin Trade Name Freq PRN Reason Stop Dose Admin Acetaminophen 1,000 mg 07/16/19 06:09 07/23/19 22:12 Ofirmev Injection - IVPB 1,000 mg Q6H PRN Administration FEVER Amino Acids 30 ml 07/06/19 17:30 07/25/19 08:38 Prosource No Carb Liquid Pkt PO 30 ml BID@0800,1730 TIKI Administration Ascorbic Acid 500 mg 07/08/19 11:00 07/25/19 09:50 Vitamin C - PO 500 mg DAILY TIKI Administration Chlorhexidine Gluconate 1 applic 06/22/19 22:00 07/24/19 21:31 Hibiclens For Decolonization - TP 1 applic HS TIKI Administration Cholecalciferol 800 unit 07/03/19 16:00 07/25/19 09:54 Vitamin D3 - PO 800 unit DAILY TIKI Administration Enoxaparin Sodium 80 mg 07/23/19 12:30 07/25/19 09:46 Lovenox - SQ 80 mg BID TIKI Administration IV Flush 4 ml 07/18/19 18:26 Triple Lumen Flush IVPUSH PRN PRN Protocol Propofol 1,000,000 mcg in 100 mls @ 2.313 mls/hr 06/22/19 14:00 07/25/19 09:45 Diprivan - IVPB 30 mcg/kg/min TITR TIKI 13.88 mls/hr Administration Protocol 5 MCG/KG/MIN Morphine Sulfate 100 mg in 100 mls @ 1 mls/hr 06/22/19 21:30 07/25/19 08:37 Morphine 100mg/100ml-0.9% Nacl IVPB 7 mg/hr TITR TIKI 7 mls/hr Administration Protocol 1 MG/HR Caspofungin 50 mg/ Sodium 250 mls @ 250 mls/hr 07/14/19 10:00 07/25/19 10:23 Chloride IVPB 250 mls/hr Q24H TIKI Administration Meropenem 1 gm/ Dextrose 100 mls @ 200 mls/hr 07/16/19 11:00 07/25/19 09:47 IVPB 200 mls/hr Q8H-IV TIKI Administration Vecuronium [place] 100 mg in 100 mls @ 5.226 mls/hr 07/17/19 11:15 07/24/19 18:37 Vecuronium [place] IVPB 1 mcg/kg/min TITR TIKI 5.226 mls/hr Titration Protocol 1 MCG/KG/MIN Furosemide 100 mg/ Dextrose 100 mls @ 10 mls/hr 07/19/19 10:15 07/25/19 09:00 IVPB 10 mg/hr TITR TIKI 10 mls/hr Administration Protocol 10 MG/HR Vancomycin HCl 1,500 mg/ 500 mls @ 250 mls/hr 07/21/19 02:00 07/25/19 02:21 Dextrose IVPB 250 mls/hr Q12H TIKI Administration Protocol Lacosamide 200 mg 06/23/19 10:00 07/25/19 09:48 Vimpat Injection - IVPB 200 mg BID TIKI Administration Levetiracetam 1,000 mg 06/23/19 10:00 07/25/19 09:48 Keppra Injection - IVPB 1,000 mg BID TIKI Administration Pantoprazole Sodium 40 mg 06/24/19 10:00 07/25/19 09:49 Protonix Iv IVPUSH 40 mg DAILY TIKI Administration Phenobarbital 60 mg 06/28/19 10:00 07/25/19 09:49 Phenobarbital Liquid - GT 60 mg BID TIKI Administration Polyethylene Glycol 17 gm 07/18/19 22:00 07/25/19 09:47 Miralax (For Daily Use) - PO 17 gm BID TIKI Administration Potassium Chloride 40 meq 07/21/19 10:45 07/25/19 09:47 Potassium Chloride Oral Liquid PO 40 meq DAILY TIKI Administration Potassium Phos/Sodium Phos 1 packet 07/20/19 14:00 07/25/19 05:31 Phos-Nak Packet - PO 1 packet TID TIKI Administration Spironolactone 50 mg 07/19/19 10:00 07/25/19 09:50 Aldactone - PO 50 mg DAILY TIKI Administration Topiramate 200 mg 06/23/19 14:00 07/25/19 05:29 Topamax - PO 200 mg TID TIKI Administration Zinc Sulfate 220 mg 06/23/19 22:00 07/25/19 09:50 Orazinc - PO 220 mg BID TIKI Administration ASSESSMENT/PLAN: Acute hypoxic hypercapneic respiratory failure COVID-19 Pneumonitis Fungemia Septic Shock Seizure disorder Developmental delay --Family meeting with result being potential tracheostomy --Continue to wean AC ventilator settings as tolerated --Maintain SpO2 >94% --Patient continues with adequate urine output --Continue lasix gtt and aldactone --Monitor lytes and Cr with AM labs --Continue sedation and paralytic given high ventilatory requirements --ID on board: Meropenem day 10 to continue Continue Caspofungin --Continue home antiepileptics and monitor for seizure activity FEN: Fluids: continued diuresis Electrolytes: AM labs Nutrition: Continue tube feeds current rate PPX: DVT - Lovenox 80 BID for COVID-19 microembolization risk GI - Protonix qdaily Dispo: Wean vent settings; potential tracheostomy Case discussed with Dr. Cesia Palmer, DO - IM PGY-3 Visit type - Emergency Visit Emergency Visit: Yes ED Registration Date: 06/22/19 Care time: The patient presented to the Emergency Department on the above date and was hospitalized for further evaluation of their emergent condition. - New Patient This patient is new to me today: No - Critical Care Critical Care patient: Yes Total Critical Care Time (in minutes): 33 Critical Care Statement: The care of this patient involved high complexity decision making to prevent further life threatening deterioration of the patient's condition and/or to evaluate & treat vital organ system(s) failure or risk of failure. ATTENDING PHYSICIAN STATEMENT I saw and evaluated the patient. I reviewed the resident's note and discussed the case with the resident. I agree with the resident's findings and plan as documented. SUBJECTIVE: OBJECTIVE: ASSESSMENT AND PLAN:
--- NOTE | 2019-07-25 11:13 | PN ---
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, Physician Chief Complaint: INTUBATED SEDATED ON VENTILATOR AFEBRILE TEMPS REMAIN DOWN TACHYCARDIC - Current Medication List Current Medications: Active Medications Acetaminophen (Ofirmev Injection -) 1,000 mg IVPB Q6H PRN PRN Reason: FEVER Last Admin: 07/23/19 22:12 Dose: 1,000 mg Documented by: Amino Acids (Prosource No Carb Liquid Pkt) 30 ml PO BID@0800,1730 [facility] Last Admin: 07/25/19 08:38 Dose: 30 ml Documented by: Ascorbic Acid (Vitamin C -) 500 mg PO DAILY [facility] Last Admin: 07/25/19 09:50 Dose: 500 mg Documented by: Chlorhexidine Gluconate (Hibiclens For Decolonization -) 1 applic TP HS [facility] Last Admin: 07/24/19 21:31 Dose: 1 applic Documented by: Cholecalciferol (Vitamin D3 -) 800 unit PO DAILY [facility] Last Admin: 07/25/19 09:54 Dose: 800 unit Documented by: Enoxaparin Sodium (Lovenox -) 80 mg SQ BID [facility] Last Admin: 07/25/19 09:46 Dose: 80 mg Documented by: IV Flush (Triple Lumen Flush) 4 ml IVPUSH PRN PRN PRN Reason: Protocol Propofol (Diprivan -) 1,000,000 mcg in 100 mls @ 2.313 mls/hr IVPB TITR [facility]; Protocol Last Admin: 07/25/19 09:45 Dose: 30 mcg/kg/min, 13.88 mls/hr Documented by: Morphine Sulfate (Morphine 100mg/100ml-0.9% Nacl) 100 mg in 100 mls @ 1 mls/hr IVPB TITR [facility]; Protocol Last Admin: 07/25/19 08:37 Dose: 7 mg/hr, 7 mls/hr Documented by: Caspofungin 50 mg/ Sodium (Chloride) 250 mls @ 250 mls/hr IVPB Q24H [facility] Last Admin: 07/25/19 10:23 Dose: 250 mls/hr Documented by: Meropenem 1 gm/ Dextrose 100 mls @ 200 mls/hr IVPB Q8H-IV [facility] Last Admin: 07/25/19 09:47 Dose: 200 mls/hr Documented by: Vecuronium [place] (Vecuronium [place]) 100 mg in 100 mls @ 5.226 mls/hr IVPB TITR [facility]; Protocol Last Titration: 07/24/19 18:37 Dose: 1 mcg/kg/min, 5.226 mls/hr Documented by: Furosemide 100 mg/ Dextrose 100 mls @ 10 mls/hr IVPB TITR [facility]; Protocol Last Admin: 07/25/19 09:00 Dose: 10 mg/hr, 10 mls/hr Documented by: Vancomycin HCl 1,500 mg/ (Dextrose) 500 mls @ 250 mls/hr IVPB Q12H [facility]; Protocol Last Admin: 07/25/19 02:21 Dose: 250 mls/hr Documented by: Lacosamide (Vimpat Injection -) 200 mg IVPB BID [facility] Last Admin: 07/25/19 09:48 Dose: 200 mg Documented by: Levetiracetam (Keppra Injection -) 1,000 mg IVPB BID [facility] Last Admin: 07/25/19 09:48 Dose: 1,000 mg Documented by: Pantoprazole Sodium (Protonix Iv) 40 mg IVPUSH DAILY [facility] Last Admin: 07/25/19 09:49 Dose: 40 mg Documented by: Phenobarbital (Phenobarbital Liquid -) 60 mg GT BID [facility] Last Admin: 07/25/19 09:49 Dose: 60 mg Documented by: Polyethylene Glycol (Miralax (For Daily Use) -) 17 gm PO BID [facility] Last Admin: 07/25/19 09:47 Dose: 17 gm Documented by: Potassium Chloride (Potassium Chloride Oral Liquid) 40 meq PO DAILY [facility] Last Admin: 07/25/19 09:47 Dose: 40 meq Documented by: Potassium Phos/Sodium Phos (Phos-Nak Packet -) 1 packet PO TID [facility] Last Admin: 07/25/19 05:31 Dose: 1 packet Documented by: Spironolactone (Aldactone -) 50 mg PO DAILY [facility] Last Admin: 07/25/19 09:50 Dose: 50 mg Documented by: Topiramate (Topamax -) 200 mg PO TID [facility] Last Admin: 07/25/19 05:29 Dose: 200 mg Documented by: Zinc Sulfate (Orazinc -) 220 mg PO BID [facility] Last Admin: 07/25/19 09:50 Dose: 220 mg Documented by: - Objective Vital Signs: Vital Signs Temperature 99.1 F 07/25/19 10:00 Pulse Rate 119 H 07/25/19 10:00 Respiratory Rate 20 07/25/19 10:00 Blood Pressure 149/83 07/25/19 10:00 O2 Sat by Pulse Oximetry (%) 95 07/25/19 09:00 Constitutional: Yes: No Distress Eyes: Yes: Conjunctiva Clear Cardiovascular: Yes: Regular Rate and Rhythm, S1, S2 Respiratory: Yes: Mechanically Ventilated Gastrointestinal: Yes: Normal Bowel Sounds, Soft. No: Tenderness Edema: Yes Edema: LLE: 2+, RLE: 2+ Labs: CBC, BMP 07/24/19 06:00 07/24/19 06:00 INR, PTT INR 1.06 (0.83-1.09) 07/19/19 09:04 Assessment/Plan RESP FAILURE BILATERAL PNEUMONIA/ARDS + SPUTUM MRSA/ ECOLI COVID-19+ S/P TOCILIZUMAB, PLASMA +BC SCN CONTINUE VENTILATORY SUPPORT VANCOMYCIN/ ERTAPENEM/CANCIDAS REPEAT VANCOMYCIN TROUGH AM AIRBORNE PRECAUTIONS
--- NOTE | 2019-07-25 11:14 | PN ---
Teaching Attending Note Name of Resident: eBnigno Palmer ATTENDING PHYSICIAN STATEMENT I saw and evaluated the patient. I reviewed the resident's note and discussed the case with the resident. I agree with the resident's findings and plan as documented. SUBJECTIVE: Patient seen and examined in the ICU. Remains intubated and sedated. No pressors. PPlat: 32 OBJECTIVE: Intake & Output 07/22/19 07/23/19 07/24/19 07/25/19 23:59 23:59 23:59 23:59 Intake Total 3937.7 3922.4 2868.4 1241.4 Output Total 3200 3500 2200 800 Balance 737.7 422.4 668.4 441.4 Weight 200 lb 2.876 oz 204 lb 5.896 oz Last Vital Signs Temp Pulse Resp BP Pulse Ox 99.1 F 119 H 20 149/83 95 07/25/19 10:00 07/25/19 10:00 07/25/19 10:00 07/25/19 10:00 07/25/19 09:00 Active Medications Acetaminophen (Ofirmev Injection -) 1,000 mg IVPB Q6H PRN PRN Reason: FEVER Last Admin: 07/23/19 22:12 Dose: 1,000 mg Documented by: Amino Acids (Prosource No Carb Liquid Pkt) 30 ml PO BID@0800,1730 [facility] Last Admin: 07/25/19 08:38 Dose: 30 ml Documented by: Ascorbic Acid (Vitamin C -) 500 mg PO DAILY [facility] Last Admin: 07/25/19 09:50 Dose: 500 mg Documented by: Chlorhexidine Gluconate (Hibiclens For Decolonization -) 1 applic TP HS [facility] Last Admin: 07/24/19 21:31 Dose: 1 applic Documented by: Cholecalciferol (Vitamin D3 -) 800 unit PO DAILY [facility] Last Admin: 07/25/19 09:54 Dose: 800 unit Documented by: Enoxaparin Sodium (Lovenox -) 80 mg SQ BID [facility] Last Admin: 07/25/19 09:46 Dose: 80 mg Documented by: IV Flush (Triple Lumen Flush) 4 ml IVPUSH PRN PRN PRN Reason: Protocol Propofol (Diprivan -) 1,000,000 mcg in 100 mls @ 2.313 mls/hr IVPB TITR [facility]; Protocol Last Admin: 07/25/19 09:45 Dose: 30 mcg/kg/min, 13.88 mls/hr Documented by: Morphine Sulfate (Morphine 100mg/100ml-0.9% Nacl) 100 mg in 100 mls @ 1 mls/hr IVPB TITR [facility]; Protocol Last Admin: 07/25/19 08:37 Dose: 7 mg/hr, 7 mls/hr Documented by: Caspofungin 50 mg/ Sodium (Chloride) 250 mls @ 250 mls/hr IVPB Q24H [facility] Last Admin: 07/25/19 10:23 Dose: 250 mls/hr Documented by: Meropenem 1 gm/ Dextrose 100 mls @ 200 mls/hr IVPB Q8H-IV [facility] Last Admin: 07/25/19 09:47 Dose: 200 mls/hr Documented by: Vecuronium [place] (Vecuronium [place]) 100 mg in 100 mls @ 5.226 mls/hr IVPB TITR [facility]; Protocol Last Titration: 07/24/19 18:37 Dose: 1 mcg/kg/min, 5.226 mls/hr Documented by: Furosemide 100 mg/ Dextrose 100 mls @ 10 mls/hr IVPB TITR [facility]; Protocol Last Admin: 07/25/19 09:00 Dose: 10 mg/hr, 10 mls/hr Documented by: Vancomycin HCl 1,500 mg/ (Dextrose) 500 mls @ 250 mls/hr IVPB Q12H [facility]; Protocol Last Admin: 07/25/19 02:21 Dose: 250 mls/hr Documented by: Lacosamide (Vimpat Injection -) 200 mg IVPB BID [facility] Last Admin: 07/25/19 09:48 Dose: 200 mg Documented by: Levetiracetam (Keppra Injection -) 1,000 mg IVPB BID [facility] Last Admin: 07/25/19 09:48 Dose: 1,000 mg Documented by: Pantoprazole Sodium (Protonix Iv) 40 mg IVPUSH DAILY [facility] Last Admin: 07/25/19 09:49 Dose: 40 mg Documented by: Phenobarbital (Phenobarbital Liquid -) 60 mg GT BID [facility] Last Admin: 07/25/19 09:49 Dose: 60 mg Documented by: Polyethylene Glycol (Miralax (For Daily Use) -) 17 gm PO BID [facility] Last Admin: 07/25/19 09:47 Dose: 17 gm Documented by: Potassium Chloride (Potassium Chloride Oral Liquid) 40 meq PO DAILY [facility] Last Admin: 07/25/19 09:47 Dose: 40 meq Documented by: Potassium Phos/Sodium Phos (Phos-Nak Packet -) 1 packet PO TID [facility] Last Admin: 07/25/19 05:31 Dose: 1 packet Documented by: Spironolactone (Aldactone -) 50 mg PO DAILY [facility] Last Admin: 07/25/19 09:50 Dose: 50 mg Documented by: Topiramate (Topamax -) 200 mg PO TID [facility] Last Admin: 07/25/19 05:29 Dose: 200 mg Documented by: Zinc Sulfate (Orazinc -) 220 mg PO BID [facility] Last Admin: 07/25/19 09:50 Dose: 220 mg Documented by: Gen: intubated, sedated Heart: RRR Lung: scattered rhonchi Abd: soft, nontender Ext: no edema ASSESSMENT AND PLAN: Acute Hypoxic and Hypercapneic Respiratory Failure COVID19 Pneumonia E Coli Pneumonia Fungenmia Bacteremia Septic Shock Seizure Disorder Mental Retardation - continue antibiotics, antifungals per ID - f/u pending cultures - continue antiepileptics - Cardiology consult noted, hold on FLORESITA for now - low tidal volume ventilation - titrate FiO2, PEEP to keep SpO2 >90% - sedate for vent synchrony - enteral feeds - DVT/GI prophylaxis - continue ICU monitoring Family meeting for GOC. Family amenable for a Tracheostomy once parameters become optimized. Dr Callaway Critical care time spent in reviewing chart, evaluating patient and formulating plan 35 min
--- NOTE | 2019-07-25 13:44 | PN ---
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 (short form) - Note 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: Covering Dr Lockhart Problems 1. hypokalemia 2. hypernatremia 3. resp failure 4. fungemia 5. covid 19 infection 6. ards 7. developemental delay 8. epilepsy 9. bactermia 10. resp acidosis with compensatory met alk Active Medications Acetaminophen (Ofirmev Injection -) 1,000 mg IVPB Q6H PRN PRN Reason: FEVER Last Admin: 07/23/19 22:12 Dose: 1,000 mg Documented by: Amino Acids (Prosource No Carb Liquid Pkt) 30 ml PO BID@0800,1730 [facility] Last Admin: 07/25/19 08:38 Dose: 30 ml Documented by: Ascorbic Acid (Vitamin C -) 500 mg PO DAILY [facility] Last Admin: 07/25/19 09:50 Dose: 500 mg Documented by: Chlorhexidine Gluconate (Hibiclens For Decolonization -) 1 applic TP HS [facility] Last Admin: 07/24/19 21:31 Dose: 1 applic Documented by: Cholecalciferol (Vitamin D3 -) 800 unit PO DAILY [facility] Last Admin: 07/25/19 09:54 Dose: 800 unit Documented by: Enoxaparin Sodium (Lovenox -) 80 mg SQ BID [facility] Last Admin: 07/25/19 09:46 Dose: 80 mg Documented by: IV Flush (Triple Lumen Flush) 4 ml IVPUSH PRN PRN PRN Reason: Protocol Propofol (Diprivan -) 1,000,000 mcg in 100 mls @ 2.313 mls/hr IVPB TITR [facility]; Protocol Last Admin: 07/25/19 09:45 Dose: 30 mcg/kg/min, 13.88 mls/hr Documented by: Morphine Sulfate (Morphine 100mg/100ml-0.9% Nacl) 100 mg in 100 mls @ 1 mls/hr IVPB TITR [facility]; Protocol Last Admin: 07/25/19 08:37 Dose: 7 mg/hr, 7 mls/hr Documented by: Caspofungin 50 mg/ Sodium (Chloride) 250 mls @ 250 mls/hr IVPB Q24H [facility] Last Admin: 07/25/19 10:23 Dose: 250 mls/hr Documented by: Meropenem 1 gm/ Dextrose 100 mls @ 200 mls/hr IVPB Q8H-IV [facility] Last Admin: 07/25/19 09:47 Dose: 200 mls/hr Documented by: Vecuronium [place] (Vecuronium [place]) 100 mg in 100 mls @ 5.226 mls/hr IVPB TITR [facility]; Protocol Last Titration: 07/24/19 18:37 Dose: 1 mcg/kg/min, 5.226 mls/hr Documented by: Furosemide 100 mg/ Dextrose 100 mls @ 10 mls/hr IVPB TITR [facility]; Protocol Last Admin: 07/25/19 09:00 Dose: 10 mg/hr, 10 mls/hr Documented by: Vancomycin HCl 1,500 mg/ (Dextrose) 500 mls @ 250 mls/hr IVPB Q12H [facility]; Protocol Last Admin: 07/25/19 02:21 Dose: 250 mls/hr Documented by: Lacosamide (Vimpat Injection -) 200 mg IVPB BID [facility] Last Admin: 07/25/19 09:48 Dose: 200 mg Documented by: Levetiracetam (Keppra Injection -) 1,000 mg IVPB BID [facility] Last Admin: 07/25/19 09:48 Dose: 1,000 mg Documented by: Pantoprazole Sodium (Protonix Iv) 40 mg IVPUSH DAILY [facility] Last Admin: 07/25/19 09:49 Dose: 40 mg Documented by: Phenobarbital (Phenobarbital Liquid -) 60 mg GT BID [facility] Last Admin: 07/25/19 09:49 Dose: 60 mg Documented by: Polyethylene Glycol (Miralax (For Daily Use) -) 17 gm PO BID [facility] Last Admin: 07/25/19 09:47 Dose: 17 gm Documented by: Potassium Chloride (Potassium Chloride Oral Liquid) 40 meq PO DAILY [facility] Last Admin: 07/25/19 09:47 Dose: 40 meq Documented by: Potassium Phos/Sodium Phos (Phos-Nak Packet -) 1 packet PO TID [facility] Last Admin: 07/25/19 05:31 Dose: 1 packet Documented by: Spironolactone (Aldactone -) 50 mg PO DAILY [facility] Last Admin: 07/25/19 09:50 Dose: 50 mg Documented by: Topiramate (Topamax -) 200 mg PO TID [facility] Last Admin: 07/25/19 05:29 Dose: 200 mg Documented by: Zinc Sulfate (Orazinc -) 220 mg PO BID [facility] Last Admin: 07/25/19 09:50 Dose: 220 mg Documented by: Last Vital Signs Temp Pulse Resp BP Pulse Ox 99.1 F 122 H 35 H 132/73 91 L 07/25/19 10:00 07/25/19 12:00 07/25/19 12:15 07/25/19 12:00 07/25/19 12:15 Intake & Output 07/24/19 07/25/19 07/25/19 23:59 07:59 15:59 Intake Total 1241.4 Output Total 800 Balance 441.4 Weight 204 lb 5.896 oz CBC, BMP 07/24/19 06:00 07/24/19 06:00
[2019-07-25] MEDS: CHLORHEXIDINE GLUCONATE 4% CLEANSER FOR DECOLONIZATION TP SCH (21:34)
[2019-07-25] MEDS: ACETAMINOPHEN 1000 MG/100 ML VIAL (NON FORMULARY) IVPB PRN (21:38)
[2019-07-25] MEDS ORDERED: MIDAZOLAM IN 0.9 % SOD.CHLORID 1 MG/1 ML PLAST..BAG ONE (22:17)
[2019-07-26] MEDS: VECURONIUM BROMIDE 100 MG/100 ML BAG IVPB SCH ×2 (02:27→18:17)
[2019-07-26] MEDS: VANCOMYCIN HCL 1,500 MG in DEXTROSE 5%-WATER - 500 ML IVPB SCH ×2 (02:29→14:06)
[2019-07-26] MEDS: MEROPENEM 1 GM in DEXTROSE 5%-WATER 100 ML IVPB SCH ×3 (02:31→18:20)
[2019-07-26] MEDS: TOPIRAMATE 200 MG TABLET PO SCH ×3 (06:14→22:04)
[2019-07-26] MEDS: NAPH,MB-DB/K PH,MBDB POWDER PACKET PO SCH ×3 (06:14→22:04)
[2019-07-26] MEDS: MORPHINE SULFATE/0.9% NACL/PF 100 MG/100 ML BAG IVPB SCH ×2 (06:38→18:18)
[2019-07-26] MEDS ORDERED: MEROPENEM 1 GM VIAL (RESTRICTED TO ID) IVPB ONE ×2 (07:54→14:05)
[2019-07-26] MEDS ORDERED: DEXTROSE 5%-WATER 100 ML IVPB ONE ×2 (07:54→14:05)
[2019-07-26] MEDS: AMINO ACIDS/PROTEIN HYDROLYS 30 ML LIQUID.PKT PO SCH ×2 (07:58→18:20)
[2019-07-26] MEDS: PROPOFOL 1,000,000 MCG/100 ML VIAL IVPB SCH ×2 (07:59→15:00)
[2019-07-26 08:13] LABS: ANION GAP 10 MMOL/L (8-16); BLOOD UREA NITROGEN 10.2 mg/dL (7-18); CALCIUM 8.4 mg/dL (8.5-10.1); CHLORIDE 82 mmol/L (98-107); CO2 > 45 mmol/L (21-32); CREATININE < 0.2 mg/dL (0.55-1.3); GLUCOSE,RANDOM 112 mg/dL (74-106); SODIUM 137 mmol/L (136-145)
[2019-07-26 08:42] LABS: POTASSIUM 2.7 mmol/L (3.5-5.1)
[2019-07-26] MEDS ORDERED: POTASSIUM CHLORIDE ORAL LIQUID 20 MEQ/15 ML PO ONE (08:43)
[2019-07-26] MEDS: POTASSIUM CHLORIDE 20 MEQ PREMIX IVPB 100 ML IVPB SCH ×3 (09:11→11:50)
[2019-07-26] MEDS: ENOXAPARIN NA (PORCINE) 80 MG/0.8 ML DISP.SYRIN SQ SCH ×2 (09:26→22:04)
[2019-07-26] MEDS: PANTOPRAZOLE SODIUM 40 MG VIAL IVPUSH SCH (09:27)
[2019-07-26] MEDS: Lacosamide 200 MG/20 ML VIAL IVPB SCH ×2 (09:27→22:55)
[2019-07-26] MEDS: PHENobarbital 20 MG/5 ML UNIT-DOSE CUP GT SCH ×2 (09:28→22:04)
[2019-07-26] MEDS: levETIRAcetam 500 MG/5 ML INJECTION VIAL IVPB SCH ×2 (09:28→22:03)
[2019-07-26] MEDS: ASCORBIC ACID 500 MG TABLET (FP) PO SCH (09:29)
[2019-07-26] MEDS: FUROSEMIDE INJECTION 100 MG in DEXTROSE 5%-WATER - 90 ML IVPB SCH (09:30)
[2019-07-26] MEDS: POLYETHYLENE GLYCOL 3350 119 GM BTL PO SCH ×2 (09:31→22:04)
[2019-07-26] MEDS: CASPOFUNGIN ACETATE 50 MG in SODIUM CHLORIDE 250 ML IVPB SCH (09:31)
[2019-07-26] MEDS ORDERED: PT OWN MED DRAWER 7, Y5N ONE ×3 (09:33→21:46)
[2019-07-26] MEDS: SPIRONOLACTONE 25 MG TABLET PO SCH (09:34)
[2019-07-26] MEDS: CHOLECALCIFEROL (VIT D3) 400 UNIT (10 MCG) TABLET PO SCH (09:34)
[2019-07-26] MEDS: POTASSIUM CHLORIDE ORAL LIQUID 20 MEQ/15 ML PO SCH (09:55)
[2019-07-26] MEDS: ZINC SULFATE 220 MG CAPSULE (FP) PO SCH ×2 (09:55→22:04)
--- NOTE | 2019-07-26 11:25 | PN ---
Teaching Attending Note Name of Resident: Benigno Palmer ATTENDING PHYSICIAN STATEMENT I saw and evaluated the patient. I reviewed the resident's note and discussed the case with the resident. I agree with the resident's findings and plan as documented. SUBJECTIVE: Patient seen and examined in the ICU. Remains intubated and sedated. No pressors. PPlat: 33 OBJECTIVE: Intake & Output 07/23/19 07/24/19 07/25/19 07/26/19 23:59 23:59 23:59 23:59 Intake Total 3922.4 2868.4 2761.3 1618.4 Output Total 3500 2200 3200 1400 Balance 422.4 668.4 -438.7 218.4 Weight 200 lb 2.876 oz 204 lb 5.896 oz 190 lb 7 oz Last Vital Signs Temp Pulse Resp BP Pulse Ox 96.8 F L 96 H 35 H 124/76 89 L 07/26/19 10:00 07/26/19 10:00 07/26/19 10:00 07/26/19 10:00 07/26/19 08:55 Active Medications Acetaminophen (Ofirmev Injection -) 1,000 mg IVPB Q6H PRN PRN Reason: FEVER Last Admin: 07/25/19 21:38 Dose: 1,000 mg Documented by: Amino Acids (Prosource No Carb Liquid Pkt) 30 ml PO BID@0800,1730 [facility] Last Admin: 07/26/19 07:58 Dose: 30 ml Documented by: Ascorbic Acid (Vitamin C -) 500 mg PO DAILY [facility] Last Admin: 07/26/19 09:29 Dose: 500 mg Documented by: Chlorhexidine Gluconate (Hibiclens For Decolonization -) 1 applic TP HS [facility] Last Admin: 07/25/19 21:34 Dose: 1 applic Documented by: Cholecalciferol (Vitamin D3 -) 800 unit PO DAILY [facility] Last Admin: 07/26/19 09:34 Dose: 800 unit Documented by: Enoxaparin Sodium (Lovenox -) 80 mg SQ BID [facility] Last Admin: 07/26/19 09:26 Dose: 80 mg Documented by: IV Flush (Triple Lumen Flush) 4 ml IVPUSH PRN PRN PRN Reason: Protocol Propofol (Diprivan -) 1,000,000 mcg in 100 mls @ 2.313 mls/hr IVPB TITR [facility]; Protocol Last Admin: 07/26/19 07:59 Dose: 30 mcg/kg/min, 13.88 mls/hr Documented by: Morphine Sulfate (Morphine 100mg/100ml-0.9% Nacl) 100 mg in 100 mls @ 1 mls/hr IVPB TITR [facility]; Protocol Last Admin: 07/26/19 06:38 Dose: 7 mg/hr, 7 mls/hr Documented by: Caspofungin 50 mg/ Sodium (Chloride) 250 mls @ 250 mls/hr IVPB Q24H [facility] Last Admin: 07/26/19 09:31 Dose: 250 mls/hr Documented by: Meropenem 1 gm/ Dextrose 100 mls @ 200 mls/hr IVPB Q8H-IV [facility] Last Admin: 07/26/19 09:31 Dose: 200 mls/hr Documented by: Vecuronium [place] (Vecuronium [place]) 100 mg in 100 mls @ 5.226 mls/hr IVPB TITR [facility]; Protocol Last Admin: 07/26/19 02:27 Dose: 1 mcg/kg/min, 5.226 mls/hr Documented by: Furosemide 100 mg/ Dextrose 100 mls @ 10 mls/hr IVPB TITR [facility]; Protocol Last Admin: 07/26/19 09:30 Dose: 10 mg/hr, 10 mls/hr Documented by: Vancomycin HCl 1,500 mg/ (Dextrose) 500 mls @ 250 mls/hr IVPB Q12H [facility]; Protocol Last Admin: 07/26/19 02:29 Dose: 250 mls/hr Documented by: Lacosamide (Vimpat Injection -) 200 mg IVPB BID [facility] Last Admin: 07/26/19 09:27 Dose: 200 mg Documented by: Levetiracetam (Keppra Injection -) 1,000 mg IVPB BID [facility] Last Admin: 07/26/19 09:28 Dose: 1,000 mg Documented by: Pantoprazole Sodium (Protonix Iv) 40 mg IVPUSH DAILY [facility] Last Admin: 07/26/19 09:27 Dose: 40 mg Documented by: Phenobarbital (Phenobarbital Liquid -) 60 mg GT BID [facility] Last Admin: 07/26/19 09:28 Dose: 60 mg Documented by: Polyethylene Glycol (Miralax (For Daily Use) -) 17 gm PO BID [facility] Last Admin: 07/26/19 09:31 Dose: 17 gm Documented by: Potassium Chloride (Potassium Chloride Oral Liquid) 40 meq PO DAILY [facility] Last Admin: 07/25/19 09:47 Dose: 40 meq Documented by: Potassium Phos/Sodium Phos (Phos-Nak Packet -) 1 packet PO TID [facility] Last Admin: 07/26/19 06:14 Dose: 1 packet Documented by: Spironolactone (Aldactone -) 50 mg PO DAILY [facility] Last Admin: 07/26/19 09:34 Dose: 50 mg Documented by: Topiramate (Topamax -) 200 mg PO TID [facility] Last Admin: 07/26/19 06:14 Dose: 200 mg Documented by: Zinc Sulfate (Orazinc -) 220 mg PO BID [facility] Last Admin: 07/25/19 21:55 Dose: 220 mg Documented by: Gen: intubated, sedated Heart: RRR Lung: scattered rhonchi Abd: soft, nontender Ext: no edema Laboratory Results - last 24 hr 07/26/19 05:30 Sodium 137 Potassium 2.7 L* Chloride 82 L Carbon Dioxide > 45 H Anion Gap 10 BUN 10.2 Creatinine < 0.2 L Est GFR (CKD-EPI)AfAm 233.83 Est GFR (CKD-EPI)NonAf 201.75 Random Glucose 112 H Calcium 8.4 L ASSESSMENT AND PLAN: Acute Hypoxic and Hypercapneic Respiratory Failure COVID19 Pneumonia E Coli Pneumonia Fungenmia Bacteremia Septic Shock Seizure Disorder Mental Retardation - Aggressive repletion of electrolytes - continue antibiotics, antifungals per ID - continue antiepileptics - Cardiology consult noted, hold on FLORESITA for now - low tidal volume ventilation - titrate FiO2, PEEP to keep SpO2 >90% - sedate for vent synchrony - enteral feeds - DVT/GI prophylaxis - continue ICU monitoring Family amenable for a Tracheostomy; will arrange once parameters have become optimized. Dr Callaway Critical care time spent in reviewing chart, evaluating patient and formulating plan 35 min
--- NOTE | 2019-07-26 11:46 | PN ---
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, Physician Chief Complaint: INTUBATED, SEDATED ON VENTILATOR NOT ON PRESSORS LOW GRADE TACHYCARDIC - Current Medication List Current Medications: Active Medications Acetaminophen (Ofirmev Injection -) 1,000 mg IVPB Q6H PRN PRN Reason: FEVER Last Admin: 07/25/19 21:38 Dose: 1,000 mg Documented by: Amino Acids (Prosource No Carb Liquid Pkt) 30 ml PO BID@0800,1730 [facility] Last Admin: 07/26/19 07:58 Dose: 30 ml Documented by: Ascorbic Acid (Vitamin C -) 500 mg PO DAILY [facility] Last Admin: 07/26/19 09:29 Dose: 500 mg Documented by: Chlorhexidine Gluconate (Hibiclens For Decolonization -) 1 applic TP HS [facility] Last Admin: 07/25/19 21:34 Dose: 1 applic Documented by: Cholecalciferol (Vitamin D3 -) 800 unit PO DAILY [facility] Last Admin: 07/26/19 09:34 Dose: 800 unit Documented by: Enoxaparin Sodium (Lovenox -) 80 mg SQ BID [facility] Last Admin: 07/26/19 09:26 Dose: 80 mg Documented by: IV Flush (Triple Lumen Flush) 4 ml IVPUSH PRN PRN PRN Reason: Protocol Propofol (Diprivan -) 1,000,000 mcg in 100 mls @ 2.313 mls/hr IVPB TITR [facility]; Protocol Last Admin: 07/26/19 07:59 Dose: 30 mcg/kg/min, 13.88 mls/hr Documented by: Morphine Sulfate (Morphine 100mg/100ml-0.9% Nacl) 100 mg in 100 mls @ 1 mls/hr IVPB TITR [facility]; Protocol Last Admin: 07/26/19 06:38 Dose: 7 mg/hr, 7 mls/hr Documented by: Caspofungin 50 mg/ Sodium (Chloride) 250 mls @ 250 mls/hr IVPB Q24H [facility] Last Admin: 07/26/19 09:31 Dose: 250 mls/hr Documented by: Meropenem 1 gm/ Dextrose 100 mls @ 200 mls/hr IVPB Q8H-IV [facility] Last Admin: 07/26/19 09:31 Dose: 200 mls/hr Documented by: Vecuronium [place] (Vecuronium [place]) 100 mg in 100 mls @ 5.226 mls/hr IVPB TITR [facility]; Protocol Last Admin: 07/26/19 02:27 Dose: 1 mcg/kg/min, 5.226 mls/hr Documented by: Furosemide 100 mg/ Dextrose 100 mls @ 10 mls/hr IVPB TITR [facility]; Protocol Last Admin: 07/26/19 09:30 Dose: 10 mg/hr, 10 mls/hr Documented by: Vancomycin HCl 1,500 mg/ (Dextrose) 500 mls @ 250 mls/hr IVPB Q12H [facility]; Protocol Last Admin: 07/26/19 02:29 Dose: 250 mls/hr Documented by: Lacosamide (Vimpat Injection -) 200 mg IVPB BID [facility] Last Admin: 07/26/19 09:27 Dose: 200 mg Documented by: Levetiracetam (Keppra Injection -) 1,000 mg IVPB BID [facility] Last Admin: 07/26/19 09:28 Dose: 1,000 mg Documented by: Pantoprazole Sodium (Protonix Iv) 40 mg IVPUSH DAILY [facility] Last Admin: 07/26/19 09:27 Dose: 40 mg Documented by: Phenobarbital (Phenobarbital Liquid -) 60 mg GT BID [facility] Last Admin: 07/26/19 09:28 Dose: 60 mg Documented by: Polyethylene Glycol (Miralax (For Daily Use) -) 17 gm PO BID [facility] Last Admin: 07/26/19 09:31 Dose: 17 gm Documented by: Potassium Chloride (Potassium Chloride Oral Liquid) 40 meq PO DAILY [facility] Last Admin: 07/25/19 09:47 Dose: 40 meq Documented by: Potassium Phos/Sodium Phos (Phos-Nak Packet -) 1 packet PO TID [facility] Last Admin: 07/26/19 06:14 Dose: 1 packet Documented by: Spironolactone (Aldactone -) 50 mg PO DAILY [facility] Last Admin: 07/26/19 09:34 Dose: 50 mg Documented by: Topiramate (Topamax -) 200 mg PO TID [facility] Last Admin: 07/26/19 06:14 Dose: 200 mg Documented by: Zinc Sulfate (Orazinc -) 220 mg PO BID [facility] Last Admin: 07/25/19 21:55 Dose: 220 mg Documented by: - Objective Vital Signs: Vital Signs Temperature 96.8 F L 07/26/19 10:00 Pulse Rate 96 H 07/26/19 10:00 Respiratory Rate 35 H 07/26/19 10:00 Blood Pressure 124/76 07/26/19 10:00 O2 Sat by Pulse Oximetry (%) 89 L 07/26/19 08:55 Constitutional: Yes: No Distress Eyes: Yes: Conjunctiva Clear Cardiovascular: Yes: Regular Rate and Rhythm, S1, S2 Respiratory: Yes: Mechanically Ventilated Gastrointestinal: Yes: Normal Bowel Sounds, Soft. No: Tenderness Edema: Yes Labs: CBC, BMP 07/24/19 06:00 07/26/19 05:30 INR, PTT INR 1.06 (0.83-1.09) 07/19/19 09:04 Assessment/Plan RESP FAILURE BILATERAL PNEUMONIA/ARDS + SPUTUM MRSA/ ECOLI COVID-19+ S/P TOCILIZUMAB, PLASMA +BC SCN CONTINUE VENTILATORY SUPPORT VANCOMYCIN/ ERTAPENEM/CANCIDAS REPEAT VANCOMYCIN TROUGH AM [facility] PRECAUTIONS
--- NOTE | 2019-07-26 16:04 | PN ---
Physical Exam: SUBJECTIVE: No acute events. Continues to put out adequate urine while on lasix gtt. Pplt: 35 OBJECTIVE: Vital Signs Period Temp Pulse Resp BP Sys/Ortiz Pulse Ox Last 24 Hr 96.8 F-99.7 F 92-127 24-36 119-150/64-83 89-93 GENERAL: Intubated, paralyzed, sedated HEENT: equal pupils, minimally reactive with light, ETT in place NECK: L IJ TLC C/D/I LUNGS: Bilateral rhonchi, AC mode 35/280/60%/ HEART: Tachycardic with regular rhythm, S1, S2 without murmur ABDOMEN: Soft, NT/ND. : Caceres in place with yellow urine drainage (no sediment) EXTREMITIES: 1+ pulses, warm, 1+ edema SKIN: Warm, dry, no rashes noted Laboratory Results - last 24 hr 07/26/19 07/26/19 05:30 13:05 Sodium 137 Potassium 2.7 L* Chloride 82 L Carbon Dioxide > 45 H Anion Gap 10 BUN 10.2 Creatinine < 0.2 L Est GFR (CKD-EPI)AfAm 233.83 Est GFR (CKD-EPI)NonAf 201.75 Random Glucose 112 H Calcium 8.4 L Vancomycin Pre-Dose 14.2 H Active Medications Generic Name Dose Route Start Last Admin Trade Name Walterq PRN Reason Stop Dose Admin Acetaminophen 1,000 mg 07/16/19 06:09 07/25/19 21:38 Ofirmev Injection - IVPB 1,000 mg Q6H PRN Administration FEVER Amino Acids 30 ml 07/06/19 17:30 07/26/19 07:58 Prosource No Carb Liquid Pkt PO 30 ml BID@0800,1730 TIKI Administration Ascorbic Acid 500 mg 07/08/19 11:00 07/26/19 09:29 Vitamin C - PO 500 mg DAILY TIKI Administration Chlorhexidine Gluconate 1 applic 06/22/19 22:00 07/25/19 21:34 Hibiclens For Decolonization - TP 1 applic HS TIKI Administration Cholecalciferol 800 unit 07/03/19 16:00 07/26/19 09:34 Vitamin D3 - PO 800 unit DAILY TIKI Administration Enoxaparin Sodium 80 mg 07/23/19 12:30 07/26/19 09:26 Lovenox - SQ 80 mg BID TIKI Administration IV Flush 4 ml 07/18/19 18:26 Triple Lumen Flush IVPUSH PRN PRN Protocol Propofol 1,000,000 mcg in 100 mls @ 2.313 mls/hr 06/22/19 14:00 07/26/19 07:59 Diprivan - IVPB 30 mcg/kg/min TITR TIKI 13.88 mls/hr Administration Protocol 5 MCG/KG/MIN Morphine Sulfate 100 mg in 100 mls @ 1 mls/hr 06/22/19 21:30 07/26/19 06:38 Morphine 100mg/100ml-0.9% Nacl IVPB 7 mg/hr TITR TIKI 7 mls/hr Administration Protocol 1 MG/HR Caspofungin 50 mg/ Sodium 250 mls @ 250 mls/hr 07/14/19 10:00 07/26/19 09:31 Chloride IVPB 250 mls/hr Q24H TIKI Administration Meropenem 1 gm/ Dextrose 100 mls @ 200 mls/hr 07/16/19 11:00 07/26/19 09:31 IVPB 200 mls/hr Q8H-IV TIKI Administration Vecuronium [place] 100 mg in 100 mls @ 5.226 mls/hr 07/17/19 11:15 07/26/19 02:27 Vecuronium [place] IVPB 1 mcg/kg/min TITR TIKI 5.226 mls/hr Administration Protocol 1 MCG/KG/MIN Furosemide 100 mg/ Dextrose 100 mls @ 10 mls/hr 07/19/19 10:15 07/26/19 09:30 IVPB 10 mg/hr TITR TIKI 10 mls/hr Administration Protocol 10 MG/HR Vancomycin HCl 1,500 mg/ 500 mls @ 250 mls/hr 07/21/19 02:00 07/26/19 14:06 Dextrose IVPB 250 mls/hr Q12H TIKI Administration Protocol Lacosamide 200 mg 06/23/19 10:00 07/26/19 09:27 Vimpat Injection - IVPB 200 mg BID TIKI Administration Levetiracetam 1,000 mg 06/23/19 10:00 07/26/19 09:28 Keppra Injection - IVPB 1,000 mg BID TIKI Administration Pantoprazole Sodium 40 mg 06/24/19 10:00 07/26/19 09:27 Protonix Iv IVPUSH 40 mg DAILY TIKI Administration Phenobarbital 60 mg 06/28/19 10:00 07/26/19 09:28 Phenobarbital Liquid - GT 60 mg BID TIKI Administration Polyethylene Glycol 17 gm 07/18/19 22:00 07/26/19 09:31 Miralax (For Daily Use) - PO 17 gm BID TIKI Administration Potassium Chloride 40 meq 07/21/19 10:45 07/26/19 09:55 Potassium Chloride Oral Liquid PO 40 meq DAILY TIKI Administration Potassium Phos/Sodium Phos 1 packet 07/20/19 14:00 07/26/19 14:05 Phos-Nak Packet - PO 1 packet TID TIKI Administration Spironolactone 50 mg 07/19/19 10:00 07/26/19 09:34 Aldactone - PO 50 mg DAILY TIKI Administration Topiramate 200 mg 06/23/19 14:00 07/26/19 14:06 Topamax - PO 200 mg TID TIKI Administration Zinc Sulfate 220 mg 06/23/19 22:00 07/26/19 09:55 Orazinc - PO 220 mg BID TIKI Administration ASSESSMENT/PLAN: Acute hypoxic hypercapneic respiratory failure COVID-19 Pneumonitis Fungemia Septic Shock Seizure disorder Developmental delay --Family meeting with result being potential tracheostomy --Continue to wean AC ventilator settings as tolerated --Maintain SpO2 >94% --Decreased fiO2 to 55% (monitor pulse oximetry) --Patient continues with adequate urine output --Continue lasix gtt and aldactone --Monitor lytes and Cr with AM labs --Continue sedation and paralytic given high ventilatory requirements --ID on board: Meropenem day 10 to continue Continue Caspofungin --Continue home antiepileptics and monitor for seizure activity FEN: Fluids: continued diuresis Electrolytes: Aggressive repletion of potassium while on lasix gtt Nutrition: Continue tube feeds current rate PPX: DVT - Lovenox 80 BID for COVID-19 microembolization risk GI - Protonix qdaily Dispo: Wean vent settings; potential tracheostomy Case discussed with Dr. Cesia Palmer, DO - IM PGY-3 Visit type - Emergency Visit Emergency Visit: Yes ED Registration Date: 06/22/19 Care time: The patient presented to the Emergency Department on the above date and was hospitalized for further evaluation of their emergent condition. - New Patient This patient is new to me today: No - Critical Care Critical Care patient: Yes Total Critical Care Time (in minutes): 33 Critical Care Statement: The care of this patient involved high complexity decision making to prevent further life threatening deterioration of the patient's condition and/or to evaluate & treat vital organ system(s) failure or risk of failure. ATTENDING PHYSICIAN STATEMENT I saw and evaluated the patient. I reviewed the resident's note and discussed the case with the resident. I agree with the resident's findings and plan as documented. SUBJECTIVE: OBJECTIVE: ASSESSMENT AND PLAN:
--- NOTE | 2019-07-26 20:48 | PN ---
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 (short form) - Note 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: Covering Dr Lockhart Problems 1. hypokalemia 2. hypernatremia 3. resp failure 4. fungemia 5. covid 19 infection 6. ards 7. developemental delay 8. epilepsy 9. bactermia 10. resp acidosis with compensatory met alk Active Medications Acetaminophen (Ofirmev Injection -) 1,000 mg IVPB Q6H PRN PRN Reason: FEVER Last Admin: 07/25/19 21:38 Dose: 1,000 mg Documented by: Amino Acids (Prosource No Carb Liquid Pkt) 30 ml PO BID@0800,1730 TIKI Last Admin: 07/26/19 18:20 Dose: 30 ml Documented by: Ascorbic Acid (Vitamin C -) 500 mg PO DAILY TIKI Last Admin: 07/26/19 09:29 Dose: 500 mg Documented by: Chlorhexidine Gluconate (Hibiclens For Decolonization -) 1 applic TP HS [facility] Last Admin: 07/25/19 21:34 Dose: 1 applic Documented by: Cholecalciferol (Vitamin D3 -) 800 unit PO DAILY TIKI Last Admin: 07/26/19 09:34 Dose: 800 unit Documented by: Enoxaparin Sodium (Lovenox -) 80 mg SQ BID TIKI Last Admin: 07/26/19 09:26 Dose: 80 mg Documented by: IV Flush (Triple Lumen Flush) 4 ml IVPUSH PRN PRN PRN Reason: Protocol Propofol (Diprivan -) 1,000,000 mcg in 100 mls @ 2.313 mls/hr IVPB TITR TIKI; Protocol Last Admin: 07/26/19 15:00 Dose: 30 mcg/kg/min, 13.88 mls/hr Documented by: Morphine Sulfate (Morphine 100mg/100ml-0.9% Nacl) 100 mg in 100 mls @ 1 mls/hr IVPB TITR TIKI; Protocol Last Admin: 07/26/19 18:18 Dose: 7 mg/hr, 7 mls/hr Documented by: Caspofungin 50 mg/ Sodium (Chloride) 250 mls @ 250 mls/hr IVPB Q24H TIKI Last Admin: 07/26/19 09:31 Dose: 250 mls/hr Documented by: Meropenem 1 gm/ Dextrose 100 mls @ 200 mls/hr IVPB Q8H-IV TIKI Last Admin: 07/26/19 18:20 Dose: 200 mls/hr Documented by: Vecuronium [place] (Vecuronium [place]) 100 mg in 100 mls @ 5.226 mls/hr IVPB TITR [facility]; Protocol Last Admin: 07/26/19 18:17 Dose: 1 mcg/kg/min, 5.226 mls/hr Documented by: Furosemide 100 mg/ Dextrose 100 mls @ 10 mls/hr IVPB TITR [facility]; Protocol Last Admin: 07/26/19 09:30 Dose: 10 mg/hr, 10 mls/hr Documented by: Vancomycin HCl 1,500 mg/ (Dextrose) 500 mls @ 250 mls/hr IVPB Q12H TIKI; Fran col Last Admin: 07/26/19 14:06 Dose: 250 mls/hr Documented by: Lacosamide (Vimpat Injection -) 200 mg IVPB BID [facility] Last Admin: 07/26/19 09:27 Dose: 200 mg Documented by: Levetiracetam (Keppra Injection -) 1,000 mg IVPB BID [facility] Last Admin: 07/26/19 09:28 Dose: 1,000 mg Documented by: Pantoprazole Sodium (Protonix Iv) 40 mg IVPUSH DAILY [facility] Last Admin: 07/26/19 09:27 Dose: 40 mg Documented by: Phenobarbital (Phenobarbital Liquid -) 60 mg GT BID [facility] Last Admin: 07/26/19 09:28 Dose: 60 mg Documented by: Polyethylene Glycol (Miralax (For Daily Use) -) 17 gm PO BID [facility] Last Admin: 07/26/19 09:31 Dose: 17 gm Documented by: Potassium Chloride (Potassium Chloride Oral Liquid) 40 meq PO DAILY [facility] Last Admin: 07/26/19 09:55 Dose: 40 meq Documented by: Potassium Phos/Sodium Phos (Phos-Nak Packet -) 1 packet PO TID [facility] Last Admin: 07/26/19 14:05 Dose: 1 packet Documented by: Spironolactone (Aldactone -) 50 mg PO DAILY [facility] Last Admin: 07/26/19 09:34 Dose: 50 mg Documented by: Topiramate (Topamax -) 200 mg PO TID [facility] Last Admin: 07/26/19 14:06 Dose: 200 mg Documented by: Zinc Sulfate (Orazinc -) 220 mg PO BID [facility] Last Admin: 07/26/19 09:55 Dose: 220 mg Documented by: Last Vital Signs Temp Pulse Resp BP Pulse Ox 98.1 F 113 H 25 H 134/79 89 L 07/26/19 18:00 07/26/19 18:00 07/26/19 18:00 07/26/19 18:00 07/26/19 08:55 CBC, BMP 07/26/19 05:30 CBC, BMP 07/24/19 06:00 07/24/19 06:00 IMP- Hypokalemia Plan- replace Kcl
[2019-07-26] MEDS: ACETAMINOPHEN 1000 MG/100 ML VIAL (NON FORMULARY) IVPB PRN (23:31)
[2019-07-26] MEDS: CHLORHEXIDINE GLUCONATE 4% CLEANSER FOR DECOLONIZATION TP SCH (23:32)
[2019-07-27] MEDS ORDERED: DEXTROSE 5%-WATER 100 ML IVPB ONE ×4 (04:16→21:15)
[2019-07-27] MEDS ORDERED: MEROPENEM 1 GM VIAL (RESTRICTED TO ID) IVPB ONE ×4 (04:16→21:15)
[2019-07-27] MEDS ORDERED: PT OWN MED DRAWER 7, Y5N ONE ×3 (04:17→21:14)
[2019-07-27] MEDS: VANCOMYCIN HCL 1,500 MG in DEXTROSE 5%-WATER - 500 ML IVPB SCH ×2 (04:27→13:26)
[2019-07-27] MEDS: MEROPENEM 1 GM in DEXTROSE 5%-WATER 100 ML IVPB SCH ×3 (04:27→17:14)
[2019-07-27 06:53] LABS: CALCIUM 8.3 mg/dL (8.5-10.1); GLUCOSE,RANDOM 136 mg/dL (74-106); POTASSIUM 3.3 mmol/L (3.5-5.1); SODIUM 137 mmol/L (136-145)
[2019-07-27 06:58] LABS: ANION GAP 8 MMOL/L (8-16); CHLORIDE 83 mmol/L (98-107); CO2 > 45 mmol/L (21-32); CREATININE 0.2 mg/dL (0.55-1.3)
--- NOTE | 2019-07-27 08:02 | PN ---
Physical Exam: SUBJECTIVE: Patient seen and examined OBJECTIVE: Vital Signs Period Temp Pulse Resp BP Sys/Ortiz Pulse Ox Last 24 Hr 96.8 F-99.4 F 96-123 25-35 124-145/72-83 88-94 GENERAL: The patient is sedated and unresponsive. HEAD: Normal with no signs of trauma. EYES: Pupils pinpoint, no scleral icterus. NECK: Trachea midline, supple, ETT in place. LUNGS: See attending note for full PE. HEART: Regular rate and rhythm. ABDOMEN: Soft, nontender, nondistended. : Caceres in place. EXTREMITIES:warm, no edema. Laboratory Results - last 24 hr 07/26/19 07/26/19 07/27/19 05:30 13:05 05:00 Sodium 137 137 Potassium 2.7 L* 3.3 L Chloride 82 L 83 L Carbon Dioxide > 45 H > 45 H Anion Gap 10 8 BUN 10.2 10.0 Creatinine < 0.2 L 0.2 L Est GFR (CKD-EPI)AfAm 233.83 233.83 Est GFR (CKD-EPI)NonAf 201.75 201.75 Random Glucose 112 H 136 H Calcium 8.4 L 8.3 L Magnesium 2.0 Vancomycin Pre-Dose 14.2 H Active Medications Generic Name Dose Route Start Last Admin Trade Name Freq PRN Reason Stop Dose Admin Acetaminophen 1,000 mg 07/16/19 06:09 07/26/19 23:31 Ofirmev Injection - IVPB 1,000 mg Q6H PRN Administration FEVER Amino Acids 30 ml 07/06/19 17:30 07/26/19 18:20 Prosource No Carb Liquid Pkt PO 30 ml BID@0800,1730 TIKI Administration Ascorbic Acid 500 mg 07/08/19 11:00 07/26/19 09:29 Vitamin C - PO 500 mg DAILY TIKI Administration Chlorhexidine Gluconate 1 applic 06/22/19 22:00 07/26/19 23:32 Hibiclens For Decolonization - TP 1 applic HS TIKI Administration Cholecalciferol 800 unit 07/03/19 16:00 07/26/19 09:34 Vitamin D3 - PO 800 unit DAILY TIKI Administration Enoxaparin Sodium 80 mg 07/23/19 12:30 07/26/19 22:04 Lovenox - SQ 80 mg BID TIKI Administration IV Flush 4 ml 07/18/19 18:26 Triple Lumen Flush IVPUSH PRN PRN Protocol Propofol 1,000,000 mcg in 100 mls @ 2.313 mls/hr 06/22/19 14:00 07/26/19 15:00 Diprivan - IVPB 30 mcg/kg/min TITR TIKI 13.88 mls/hr Administration Protocol 5 MCG/KG/MIN Morphine Sulfate 100 mg in 100 mls @ 1 mls/hr 06/22/19 21:30 07/26/19 18:18 Morphine 100mg/100ml-0.9% Nacl IVPB 7 mg/hr TITR TIKI 7 mls/hr Administration Protocol 1 MG/HR Caspofungin 50 mg/ Sodium 250 mls @ 250 mls/hr 07/14/19 10:00 07/26/19 09:31 Chloride IVPB 250 mls/hr Q24H TIKI Administration Meropenem 1 gm/ Dextrose 100 mls @ 200 mls/hr 07/16/19 11:00 07/27/19 04:27 IVPB 200 mls/hr Q8H-IV TIKI Administration Vecuronium [place] 100 mg in 100 mls @ 5.226 mls/hr 07/17/19 11:15 07/26/19 18:17 Vecuronium [place] IVPB 1 mcg/kg/min TITR TIKI 5.226 mls/hr Administration Protocol 1 MCG/KG/MIN Furosemide 100 mg/ Dextrose 100 mls @ 10 mls/hr 07/19/19 10:15 07/26/19 09:30 IVPB 10 mg/hr TITR TIKI 10 mls/hr Administration Protocol 10 MG/HR Vancomycin HCl 1,500 mg/ 500 mls @ 250 mls/hr 07/21/19 02:00 07/27/19 04:27 Dextrose IVPB 250 mls/hr Q12H TIKI Administration Protocol Lacosamide 200 mg 06/23/19 10:00 07/26/19 22:55 Vimpat Injection - IVPB 200 mg BID TIKI Administration Levetiracetam 1,000 mg 06/23/19 10:00 07/26/19 22:03 Keppra Injection - IVPB 1,000 mg BID TIKI Administration Pantoprazole Sodium 40 mg 06/24/19 10:00 07/26/19 09:27 Protonix Iv IVPUSH 40 mg DAILY TIKI Administration Phenobarbital 60 mg 06/28/19 10:00 07/26/19 22:04 Phenobarbital Liquid - GT 60 mg BID TIKI Administration Polyethylene Glycol 17 gm 07/18/19 22:00 07/26/19 22:04 Miralax (For Daily Use) - PO 17 gm BID TIKI Administration Potassium Chloride 40 meq 07/21/19 10:45 07/26/19 09:55 Potassium Chloride Oral Liquid PO 40 meq DAILY TIKI Administration Potassium Chloride 20 meq 07/27/19 08:00 Potassium Chloride 20 Meq Premix Ivpb - IVPB 07/27/19 09:01 Q60M TIKI Potassium Phos/Sodium Phos 1 packet 07/20/19 14:00 07/26/19 22:04 Phos-Nak Packet - PO 1 packet TID TIKI Administration Spironolactone 50 mg 07/19/19 10:00 07/26/19 09:34 Aldactone - PO 50 mg DAILY TIKI Administration Topiramate 200 mg 06/23/19 14:00 07/26/19 22:04 Topamax - PO 200 mg TID TIKI Administration Zinc Sulfate 220 mg 06/23/19 22:00 07/26/19 22:04 Orazinc - PO 220 mg BID TIKI Administration ASSESSMENT/PLAN: Kumar Hurtado is a 38M with PMH MR and epilepsy who presented to ED initially with SOB and hypoxia requiring intubation, admitted to hospital for hypoxic respiratory failure due to covid-19. NAEO. FiO2 weaned to 60%. Fmaily conference over the weekend, family wants Full Code and agree to trach. Patient tolerating Lasix drip and aldactone, UOP outstanding, but K 3.3, repleting with PO and IV K. Changing QD K repletion to BID to get ahead of Lasix. Sedated on propofol@30, morphine @7. Paralyzed on vec@1. No pressors. NEURO #post-intubation sedation - continue propofol and morphine - wean as tolerated - CTM mental status #epilepsy - continue Keppra, Topamax, Vimpat, and phenobarbitol - Ativan 2mg PRN for breakthrough PULM #hypoxic respiratory failure 2/2 covid-19 - intubated - AC 35/280/8/60% I:E 0.6 PPlat 32 - wean FIO2 with goal SpO2 >90% - pending trach placement as vent settings weaned - continue vecuronium drip - s/p Plaquenil, convalescent plasma, and Actemra CARDIO #hypotension - resolved - CTM VS ID #fungemia - yeast present in blood and sputum cultures - continue caspofungin started 07/13 - Dr. Bravo following #bacteremia with +MRSA/E. coli - continue vancomycin - continue meropenem FEN #diet - continue tube feeds Vital 1.2 #hypokalemia - CTM daily K - BID NGT KCl 40mEq while on Lasix drip - 20mEq KCl IV #electrolytes - replete PRN PPX #DVT - Full Dose Lovenox #stress ulcer - Protonix 40mg QD LTD - ETT replaced 07/17 - LSC TLC placed 07/17 - R radial A-line placed 07/17 DISPO - ICU - Full Code Visit type - Emergency Visit Emergency Visit: No - New Patient This patient is new to me today: No - Critical Care Critical Care patient: Yes Total Critical Care Time (in minutes): 35 Critical Care Statement: The care of this patient involved high complexity decision making to prevent further life threatening deterioration of the patient's condition and/or to evaluate & treat vital organ system(s) failure or risk of failure. ATTENDING PHYSICIAN STATEMENT I saw and evaluated the patient. I reviewed the resident's note and discussed the case with the resident. I agree with the resident's findings and plan as documented. SUBJECTIVE: OBJECTIVE: ASSESSMENT AND PLAN:
[2019-07-27] MEDS: MORPHINE SULFATE/0.9% NACL/PF 100 MG/100 ML BAG IVPB SCH ×2 (08:53→21:20)
[2019-07-27] MEDS: AMINO ACIDS/PROTEIN HYDROLYS 30 ML LIQUID.PKT PO SCH ×2 (08:54→17:13)
[2019-07-27] MEDS: NAPH,MB-DB/K PH,MBDB POWDER PACKET PO SCH (08:55)
[2019-07-27] MEDS: PROPOFOL 1,000,000 MCG/100 ML VIAL IVPB SCH ×2 (09:00→19:05)
[2019-07-27] MEDS: SPIRONOLACTONE 25 MG TABLET PO SCH (09:01)
[2019-07-27] MEDS: levETIRAcetam 500 MG/5 ML INJECTION VIAL IVPB SCH ×2 (09:02→21:19)
[2019-07-27] MEDS: ENOXAPARIN NA (PORCINE) 80 MG/0.8 ML DISP.SYRIN SQ SCH ×2 (09:02→21:20)
[2019-07-27] MEDS: POLYETHYLENE GLYCOL 3350 119 GM BTL PO SCH ×2 (09:03→21:20)
[2019-07-27] MEDS: PHENobarbital 20 MG/5 ML UNIT-DOSE CUP GT SCH ×2 (09:03→21:19)
[2019-07-27] MEDS: ZINC SULFATE 220 MG CAPSULE (FP) PO SCH ×2 (09:03→21:20)
[2019-07-27] MEDS: POTASSIUM CHLORIDE ORAL LIQUID 20 MEQ/15 ML PO SCH ×3 (09:05→21:19)
[2019-07-27] MEDS: PANTOPRAZOLE SODIUM 40 MG VIAL IVPUSH SCH (09:06)
[2019-07-27] MEDS: ASCORBIC ACID 500 MG TABLET (FP) PO SCH (09:06)
[2019-07-27] MEDS: Lacosamide 200 MG/20 ML VIAL IVPB SCH ×2 (09:06→21:19)
[2019-07-27] MEDS: VECURONIUM BROMIDE 100 MG/100 ML BAG IVPB SCH (09:18)
[2019-07-27] MEDS: POTASSIUM CHLORIDE 20 MEQ PREMIX IVPB 100 ML IVPB SCH (09:19)
[2019-07-27] MEDS: CASPOFUNGIN ACETATE 50 MG in SODIUM CHLORIDE 250 ML IVPB SCH (09:21)
[2019-07-27] MEDS ORDERED: ARTIFICIAL TEARS (POLYVINYL ALCOHOL) OPTH DROPS OU PRN (09:32)
[2019-07-27] MEDS: CHOLECALCIFEROL (VIT D3) 400 UNIT (10 MCG) TABLET PO SCH (09:54)
--- NOTE | 2019-07-27 12:08 | PN ---
Teaching Attending Note Name of Resident: Miguel Taylor ATTENDING PHYSICIAN STATEMENT I saw and evaluated the patient. I reviewed the resident's note and discussed the case with the resident. I agree with the resident's findings and plan as documented. SUBJECTIVE: Patient seen and examined in the ICU. Remains intubated and sedated. No pressors. PPlat: 33 OBJECTIVE: Intake & Output 07/23/19 07/24/19 07/25/19 07/26/19 23:59 23:59 23:59 23:59 Intake Total 3922.4 2868.4 2761.3 1618.4 Output Total 3500 2200 3200 1400 Balance 422.4 668.4 -438.7 218.4 Weight 200 lb 2.876 oz 204 lb 5.896 oz 190 lb 7 oz Last Vital Signs Temp Pulse Resp BP Pulse Ox 96.8 F L 96 H 35 H 124/76 89 L 07/26/19 10:00 07/26/19 10:00 07/26/19 10:00 07/26/19 10:00 07/26/19 08:55 Active Medications Acetaminophen (Ofirmev Injection -) 1,000 mg IVPB Q6H PRN PRN Reason: FEVER Last Admin: 07/25/19 21:38 Dose: 1,000 mg Documented by: Amino Acids (Prosource No Carb Liquid Pkt) 30 ml PO BID@0800,1730 [facility] Last Admin: 07/26/19 07:58 Dose: 30 ml Documented by: Ascorbic Acid (Vitamin C -) 500 mg PO DAILY [facility] Last Admin: 07/26/19 09:29 Dose: 500 mg Documented by: Chlorhexidine Gluconate (Hibiclens For Decolonization -) 1 applic TP HS [facility] Last Admin: 07/25/19 21:34 Dose: 1 applic Documented by: Cholecalciferol (Vitamin D3 -) 800 unit PO DAILY [facility] Last Admin: 07/26/19 09:34 Dose: 800 unit Documented by: Enoxaparin Sodium (Lovenox -) 80 mg SQ BID [facility] Last Admin: 07/26/19 09:26 Dose: 80 mg Documented by: IV Flush (Triple Lumen Flush) 4 ml IVPUSH PRN PRN PRN Reason: Protocol Propofol (Diprivan -) 1,000,000 mcg in 100 mls @ 2.313 mls/hr IVPB TITR [facility]; Protocol Last Admin: 07/26/19 07:59 Dose: 30 mcg/kg/min, 13.88 mls/hr Documented by: Morphine Sulfate (Morphine 100mg/100ml-0.9% Nacl) 100 mg in 100 mls @ 1 mls/hr IVPB TITR TIKI; Protocol Last Admin: 07/26/19 06:38 Dose: 7 mg/hr, 7 mls/hr Documented by: Caspofungin 50 mg/ Sodium (Chloride) 250 mls @ 250 mls/hr IVPB Q24H TIKI Last Admin: 07/26/19 09:31 Dose: 250 mls/hr Documented by: Meropenem 1 gm/ Dextrose 100 mls @ 200 mls/hr IVPB Q8H-IV TIKI Last Admin: 07/26/19 09:31 Dose: 200 mls/hr Documented by: Vecuronium [place] (Vecuronium [place]) 100 mg in 100 mls @ 5.226 mls/hr IVPB TITR [facility]; Protocol Last Admin: 07/26/19 02:27 Dose: 1 mcg/kg/min, 5.226 mls/hr Documented by: Furosemide 100 mg/ Dextrose 100 mls @ 10 mls/hr IVPB TITR [facility]; Protocol Last Admin: 07/26/19 09:30 Dose: 10 mg/hr, 10 mls/hr Documented by: Vancomycin HCl 1,500 mg/ (Dextrose) 500 mls @ 250 mls/hr IVPB Q12H TIKI; Protocol Last Admin: 07/26/19 02:29 Dose: 250 mls/hr Documented by: Lacosamide (Vimpat Injection -) 200 mg IVPB BID [facility] Last Admin: 07/26/19 09:27 Dose: 200 mg Documented by: Levetiracetam (Keppra Injection -) 1,000 mg IVPB BID [facility] Last Admin: 07/26/19 09:28 Dose: 1,000 mg Documented by: Pantoprazole Sodium (Protonix Iv) 40 mg IVPUSH DAILY [facility] Last Admin: 07/26/19 09:27 Dose: 40 mg Documented by: Phenobarbital (Phenobarbital Liquid -) 60 mg GT BID [facility] Last Admin: 07/26/19 09:28 Dose: 60 mg Documented by: Polyethylene Glycol (Miralax (For Daily Use) -) 17 gm PO BID [facility] Last Admin: 07/26/19 09:31 Dose: 17 gm Documented by: Potassium Chloride (Potassium Chloride Oral Liquid) 40 meq PO DAILY [facility] Last Admin: 07/25/19 09:47 Dose: 40 meq Documented by: Potassium Phos/Sodium Phos (Phos-Nak Packet -) 1 packet PO TID [facility] Last Admin: 07/26/19 06:14 Dose: 1 packet Documented by: Spironolactone (Aldactone -) 50 mg PO DAILY [facility] Last Admin: 07/26/19 09:34 Dose: 50 mg Documented by: Topiramate (Topamax -) 200 mg PO TID [facility] Last Admin: 07/26/19 06:14 Dose: 200 mg Documented by: Zinc Sulfate (Orazinc -) 220 mg PO BID [facility] Last Admin: 07/25/19 21:55 Dose: 220 mg Documented by: Gen: intubated, sedated Heart: RRR Lung: scattered rhonchi Abd: soft, nontender Ext: no edema Laboratory Results - last 24 hr 07/26/19 05:30 Sodium 137 Potassium 2.7 L* Chloride 82 L Carbon Dioxide > 45 H Anion Gap 10 BUN 10.2 Creatinine < 0.2 L Est GFR (CKD-EPI)AfAm 233.83 Est GFR (CKD-EPI)NonAf 201.75 Random Glucose 112 H Calcium 8.4 L ASSESSMENT AND PLAN: Acute Hypoxic and Hypercapneic Respiratory Failure COVID19 Pneumonia E Coli Pneumonia Fungenmia Bacteremia Septic Shock Seizure Disorder Mental Retardation - Aggressive repletion of electrolytes - continue antibiotics, antifungals per ID - continue antiepileptics - Cardiology consult noted, hold on FLORESITA for now - low tidal volume ventilation - titrate FiO2, PEEP to keep SpO2 >90% - sedate for vent synchrony - enteral feeds - DVT/GI prophylaxis - continue ICU monitoring Family amenable for a Tracheostomy; will arrange once parameters have become optimized. Dr Callaway Critical care time spent in reviewing chart, evaluating patient and formulating plan 35 min OBJECTIVE: ASSESSMENT AND PLAN:
--- NOTE | 2019-07-27 12:49 | PN ---
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 (short form) - Note 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: remains intubated afebrile off pressors sedated and paralyzed, Vital Signs Period Temp Pulse Resp BP Sys/Ortiz Pulse Ox Last 24 Hr 97.3 F-100 F 102-129 35-35 112-153/60-71 95-98 cor-rrr lungs decreased bs at basesa abd soft,nt ext no edema CBC, BMP 07/21/19 06:40 07/22/19 18:04 Microbiology 07/18/19 21:10 Blood - Peripheral Venous Blood Culture - Preliminary NO GROWTH OBTAINED AFTER 96 HOURS, INCUBATION TO CONTINUE FOR 1 DAYS. 07/18/19 18:30 Blood - Peripheral Venous Blood Culture - Preliminary NO GROWTH OBTAINED AFTER 96 HOURS, INCUBATION TO C ONTINUE FOR 1 DAYS. 07/15/19 12:25 Blood - Peripheral Venous Blood Culture - Final NO GROWTH AFTER 5 DAYS INCUBATION 07/16/19 15:15 Blood - Peripheral Venous Blood Culture - Final Staphylococcus Epidermidis 07/14/19 11:30 Blood - Peripheral Venous Blood Culture - Final NO GROWTH AFTER 5 DAYS INCUBATION 07/16/19 15:05 Blood - Peripheral Venous Blood Culture - Final Staphylococcus Epidermidis 07/16/19 12:30 Sputum - Endotrachea Suction/Ventilator Gram Stain - Final 07/16/19 12:30 Sputum - Endotrachea Suction/Ventilator Sputum Culture - Final Mr S Aureus Escherichia Coli 07/12/19 10:55 Blood - Peripheral Venous Blood Culture - Final NO GROWTH AFTER 5 DAYS INCUBATION 07/16/19 12:30 Urine - Urine - Catheterized Urine Culture - Final NO GROWTH OBTAINED 07/12/19 06:00 Sputum - Endotrachea Suction/Ventilator Gram Stain - Final 07/12/19 06:00 Sputum - Endotrachea Suction/Ventilator Sputum Culture - Final 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 Mr S Aureus 07/12/19 11:04 Blood - Peripheral Venous Blood Culture - Final 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 07/12/19 11:04 Blood - Peripheral Venous Yeast/Fungus Identification - Preliminary 07/01/19 18:15 Blood - Peripheral Venous Blood Culture - Final NO GROWTH AFTER 5 DAYS INCUBATION 06/29/19 12:30 Blood - Peripheral Venous Blood Culture - Final Staphylococcus Epidermidis 06/30/19 17:15 Sputum - Endotrachea Suction/Ventilator Gram Stain - Final 06/30/19 17:15 Sputum - Endotrachea Suction/Ventilator Sputum Culture - Breanne l Escherichia Coli Esbl 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 06/28/19 09:00 Blood - Peripheral Venous Blood Culture - Final Staphylococcus Epidermidis 06/28/19 12:50 Sputum - Endotrachea Suction/Ventilator Gram Stain - Final 06/28/19 12:50 Sputum - Endotrachea Suction/Ventilator Sputum Culture - Final 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 Staphylococcus Aureus 06/25/19 13:40 Blood - Peripheral Venous Blood Culture - Final NO GROWTH AFTER 5 DAYS INCUBATION 06/25/19 13:20 Blood - Peripheral Venous Blood Culture - Final NO GROWTH AFTER 5 DAYS INCUBATION 06/28/19 12:51 Urine - Urine Caceres Urine Culture - Final NO GROWTH OBTAINED 06/22/19 13:00 Blood - Peripheral Venous Blood Culture - Final Staphylococcus Warneri 06/22/19 13:00 Blood - Peripheral Venous Blood Culture - Final Staphylococcus Epidermidis 06/24/19 00:01 Urine - Urine Caceres Urine Culture - Final NO GROWTH OBTAINED 06/24/19 00:01 Urine For Antigen Detection Legionella Antigen - Final 06/24/19 00:01 Urine For Antigen Detection Streptococcus pneumoniae Antigen (M - Final covid pcr negative (repeat) quantiferon negative imp/reccd ARDS/pneumonia- MRSA/Ecoli -vanco/meropenem-day #11 bacteremia- recurrent staph epi bacteremia- ?endocarditis- check echo repeat blood cultures negative fungemia- continue cancidas day #14-still awaiting ID of fungal isolate, repat blood cultures negative central line changed covid 19 positive -repeat pcr s/p convalescent plasma s/p tocilizumab MRSA isolation for sputum culture- esbl isolation continue vanco/meropenem/cancidas echo -no vegetation noted overall prognosis is guarded repeat cxray Problem List - Problems (1) Suspected COVID-19 virus infection Code(s): R68.89 - OTHER GENERAL SYMPTOMS AND SIGNS (2) Acute respiratory failure with hypoxia Code(s): J96.01 - ACUTE RESPIRATORY FAILURE WITH HYPOXIA (3) Bacteremia Code(s): R78.81 - BACTEREMIA
[2019-07-27] MEDS: TOPIRAMATE 200 MG TABLET PO SCH ×2 (13:25→21:21)
[2019-07-27] MEDS: ACETAMINOPHEN 1000 MG/100 ML VIAL (NON FORMULARY) IVPB PRN (13:28)
[2019-07-27] MEDS: FUROSEMIDE INJECTION 100 MG in DEXTROSE 5%-WATER - 90 ML IVPB SCH (14:58)
--- NOTE | 2019-07-27 16:31 | PN ---
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, Physician History of Present Illness: Pt seen and examined at bedside. He remains in the ICU. He remains intubated. - Current Medication List Current Medications: Active Medications Acetaminophen (Ofirmev Injection -) 1,000 mg IVPB Q6H PRN PRN Reason: FEVER Last Admin: 07/27/19 13:28 Dose: 1,000 mg Documented by: Amino Acids (Prosource No Carb Liquid Pkt) 30 ml PO BID@0800,1730 [facility] Last Admin: 07/27/19 08:54 Dose: 30 ml Documented by: Artificial Tears (Artificial Tears) 1 drop OU BID PRN PRN Reason: DRY EYES Ascorbic Acid (Vitamin C -) 500 mg PO DAILY TIKI Last Admin: 07/27/19 09:06 Dose: 500 mg Documented by: Chlorhexidine Gluconate (Hibiclens For Decolonization -) 1 applic TP HS [facility] Last Admin: 07/26/19 23:32 Dose: 1 applic Documented by: Cholecalciferol (Vitamin D3 -) 800 unit PO DAILY TIKI Last Admin: 07/27/19 09:54 Dose: 800 unit Documented by: Enoxaparin Sodium (Lovenox -) 80 mg SQ BID TIKI Last Admin: 07/27/19 09:02 Dose: 80 mg Documented by: IV Flush (Triple Lumen Flush) 4 ml IVPUSH PRN PRN PRN Reason: Protocol Propofol (Diprivan -) 1,000,000 mcg in 100 mls @ 2.313 mls/hr IVPB TITR [facility]; Protocol Last Admin: 07/27/19 09:00 Dose: 34.58 mcg/kg/min, 16 mls/hr Documented by: Morphine Sulfate (Morphine 100mg/100ml-0.9% Nacl) 100 mg in 100 mls @ 1 mls/hr IVPB TITR TIKI; Protocol Last Admin: 07/27/19 08:53 Dose: 7 mg/hr, 7 mls/hr Documented by: Caspofungin 50 mg/ Sodium (Chloride) 250 mls @ 250 mls/hr IVPB Q24H TIKI Last Admin: 07/27/19 09:21 Dose: 250 mls/hr Documented by: Meropenem 1 gm/ Dextrose 100 mls @ 200 mls/hr IVPB Q8H-IV TIKI Last Admin: 07/27/19 09:02 Dose: 200 mls/hr Documented by: Vecuronium Reading (Vecuronium Reading) 100 mg in 100 mls @ 5.226 mls/hr IVPB TITR [facility]; Protocol Last Admin: 07/27/19 09:18 Dose: 1 mcg/kg/min, 5.226 mls/hr Documented by: Furosemide 100 mg/ Dextrose 100 mls @ 10 mls/hr IVPB TITR [facility]; Protocol Last Admin: 07/27/19 14:58 Dose: 10 mg/hr, 10 mls/hr Documented by: Vancomycin HCl 1,500 mg/ (Dextrose) 500 mls @ 250 mls/hr IVPB Q12H [facility]; Protocol Last Admin: 07/27/19 13:26 Dose: 250 mls/hr Documented by: Lacosamide (Vimpat Injection -) 200 mg IVPB BID [facility] Last Admin: 07/27/19 09:06 Dose: 200 mg Documented by: Levetiracetam (Keppra Injection -) 1,000 mg IVPB BID [facility] Last Admin: 07/27/19 09:02 Dose: 1,000 mg Documented by: Pantoprazole Sodium (Protonix Iv) 40 mg IVPUSH DAILY [facility] Last Admin: 07/27/19 09:06 Dose: 40 mg Documented by: Phenobarbital (Phenobarbital Liquid -) 60 mg GT BID [facility] Last Admin: 07/27/19 09:03 Dose: 60 mg Documented by: Polyethylene Glycol (Miralax (For Daily Use) -) 17 gm PO BID [facility] Last Admin: 07/27/19 09:03 Dose: Not Given Documented by: Potassium Chloride (Potassium Chloride Oral Liquid) 40 meq PO BID [facility] Last Admin: 07/27/19 12:02 Dose: 40 meq Documented by: Spironolactone (Aldactone -) 50 mg PO DAILY [facility] Last Admin: 07/27/19 09:01 Dose: 50 mg Documented by: Topiramate (Topamax -) 200 mg PO TID [facility] Last Admin: 07/27/19 13:25 Dose: 200 mg Documented by: Zinc Sulfate (Orazinc -) 220 mg PO BID [facility] Last Admin: 07/27/19 09:03 Dose: 220 mg Documented by: - Objective Vital Signs: Vital Signs Temperature 100.6 F H 07/27/19 14:13 Pulse Rate 109 H 07/27/19 16:14 Respiratory Rate 35 H 07/27/19 16:14 Blood Pressure 132/81 07/27/19 14:00 O2 Sat by Pulse Oximetry (%) 97 07/27/19 16:14 Constitutional: Yes: Calm Eyes: Yes: Conjunctiva Clear HENT: Yes: Atraumatic Neck: Yes: Supple Cardiovascular: Yes: S1, S2 Respiratory: Yes: Mechanically Ventilated Gastrointestinal: Yes: Soft Genitourinary: Yes: Caceres Present Edema: Yes Edema: LLE: Trace, RLE: Trace Neurological: Yes: Lethargy Labs: CBC, BMP 07/24/19 06:00 07/27/19 05:00 INR, PTT INR 1.06 (0.83-1.09) 07/19/19 09:04 Problem List - Problems (1) Hypernatremia Code(s): E87.0 - HYPEROSMOLALITY AND HYPERNATREMIA (2) Hypokalemia Code(s): E87.6 - HYPOKALEMIA (3) Acute respiratory failure with hypoxia Code(s): J96.01 - ACUTE RESPIRATORY FAILURE WITH HYPOXIA (4) Bacteremia Code(s): R78.81 - BACTEREMIA Assessment/Plan Current Medications Generic Name Dose Route Start Last Admin Trade Name Freq PRN Reason Stop Dose Admin Acetaminophen 1,000 mg 07/16/19 06:09 07/27/19 13:28 Ofirmev Injection - IVPB 1,000 mg Q6H PRN Administration FEVER Amino Acids 30 ml 07/06/19 17:30 07/27/19 08:54 Prosource No Carb Liquid Pkt PO 30 ml BID@0800,1730 TIKI Administration Artificial Tears 1 drop 07/27/19 09:32 Artificial Tears OU BID PRN DRY EYES Ascorbic Acid 500 mg 07/08/19 11:00 07/27/19 09:06 Vitamin C - PO 500 mg DAILY TIKI Administration Chlorhexidine Gluconate 1 applic 06/22/19 22:00 07/26/19 23:32 Hibiclens For Decolonization - TP 1 applic HS TIKI Administration Cholecalciferol 800 unit 07/03/19 16:00 07/27/19 09:54 Vitamin D3 - PO 800 unit DAILY TIKI Administration Enoxaparin Sodium 80 mg 07/23/19 12:30 07/27/19 09:02 Lovenox - SQ 80 mg BID TIKI Administration IV Flush 4 ml 07/18/19 18:26 Triple Lumen Flush IVPUSH PRN PRN Protocol Propofol 1,000,000 mcg in 100 mls @ 2.313 mls/hr 06/22/19 14:00 07/27/19 09:00 Diprivan - IVPB 34.58 mcg/kg/min TITR TIKI 16 mls/hr Administration Protocol 5 MCG/KG/MIN Morphine Sulfate 100 mg in 100 mls @ 1 mls/hr 06/22/19 21:30 07/27/19 08:53 Morphine 100mg/100ml-0.9% Nacl IVPB 7 mg/hr TITR TIKI 7 mls/hr Administration Protocol 1 MG/HR Caspofungin 50 mg/ Sodium 250 mls @ 250 mls/hr 07/14/19 10:00 07/27/19 09:21 Chloride IVPB 250 mls/hr Q24H TIKI Administration Meropenem 1 gm/ Dextrose 100 mls @ 200 mls/hr 07/16/19 11:00 07/27/19 09:02 IVPB 200 mls/hr Q8H-IV TIKI Administration Vecuronium [place] 100 mg in 100 mls @ 5.226 mls/hr 07/17/19 11:15 07/27/19 09:18 Vecuronium [place] IVPB 1 mcg/kg/min TITR TIKI 5.226 mls/hr Administration Protocol 1 MCG/KG/MIN Furosemide 100 mg/ Dextrose 100 mls @ 10 mls/hr 07/19/19 10:15 07/27/19 14:58 IVPB 10 mg/hr TITR TIKI 10 mls/hr Administration Protocol 10 MG/HR Vancomycin HCl 1,500 mg/ 500 mls @ 250 mls/hr 07/21/19 02:00 07/27/19 13:26 Dextrose IVPB 250 mls/hr Q12H TIKI Administration Protocol Lacosamide 200 mg 06/23/19 10:00 07/27/19 09:06 Vimpat Injection - IVPB 200 mg BID TIKI Administration Levetiracetam 1,000 mg 06/23/19 10:00 07/27/19 09:02 Keppra Injection - IVPB 1,000 mg BID TIKI Administration Pantoprazole Sodium 40 mg 06/24/19 10:00 07/27/19 09:06 Protonix Iv IVPUSH 40 mg DAILY TIKI Administration Phenobarbital 60 mg 06/28/19 10:00 07/27/19 09:03 Phenobarbital Liquid - GT 60 mg BID TIKI Administration Polyethylene Glycol 17 gm 07/18/19 22:00 07/27/19 09:03 Miralax (For Daily Use) - PO Not Given BID [facility] Potassium Chloride 40 meq 07/27/19 11:15 07/27/19 12:02 Potassium Chloride Oral Liquid PO 40 meq BID TIKI Administration Spironolactone 50 mg 07/19/19 10:00 07/27/19 09:01 Aldactone - PO 50 mg DAILY TIKI Administration Topiramate 200 mg 06/23/19 14:00 07/27/19 13:25 Topamax - PO 200 mg TID TIKI Administration Zinc Sulfate 220 mg 06/23/19 22:00 07/27/19 09:03 Orazinc - PO 220 mg BID TIKI Administration Impression 1. hypokalemia 2. hypernatremia 3. resp failure 4. fungemia 5. covid 19 infection 6. ards 7. developemental delay 8. epilepsy 9. bactermia 10. resp acidosis with compensatory met alk Plan - replace potassium - volume status is improving - monitor lytes - vent support
[2019-07-27] MEDS ORDERED: MIDAZOLAM IN 0.9 % SOD.CHLORID 1 MG/1 ML PLAST..BAG ONE (19:28)
[2019-07-27] MEDS: CHLORHEXIDINE GLUCONATE 4% CLEANSER FOR DECOLONIZATION TP SCH (21:20)
[2019-07-28] MEDS ORDERED: PT OWN MED DRAWER 7, Y5N ONE ×5 (01:03→18:45)
[2019-07-28] MEDS: VANCOMYCIN HCL 1,500 MG in DEXTROSE 5%-WATER - 500 ML IVPB SCH ×2 (01:04→13:31)
[2019-07-28] MEDS: MEROPENEM 1 GM in DEXTROSE 5%-WATER 100 ML IVPB SCH ×2 (01:04→09:48)
[2019-07-28] MEDS: ACETAMINOPHEN 1000 MG/100 ML VIAL (NON FORMULARY) IVPB PRN (01:05)
[2019-07-28] MEDS: PROPOFOL 1,000,000 MCG/100 ML VIAL IVPB SCH ×4 (01:06→19:43)
[2019-07-28] MEDS ORDERED: FUROSEMIDE 40 MG/4 ML INJECTABLE VIAL ONE (01:19)
[2019-07-28] MEDS: VECURONIUM BROMIDE 100 MG/100 ML BAG IVPB SCH (05:00)
[2019-07-28] MEDS: TOPIRAMATE 200 MG TABLET PO SCH ×3 (05:01→21:14)
[2019-07-28] MEDS: FUROSEMIDE INJECTION 100 MG in DEXTROSE 5%-WATER - 90 ML IVPB SCH ×3 (05:01→19:44)
[2019-07-28 06:16] LABS: INR 1.01 (0.83-1.09); PROTHROMBIN TIME (PATIENT) 11.9 SEC (9.7-13.0)
[2019-07-28 06:18] LABS: ACTIVATED PTT 39.4 SECONDS (25.2-36.5)
[2019-07-28 06:44] LABS: POTASSIUM 3.4 mmol/L (3.5-5.1)
[2019-07-28 06:47] LABS: BLOOD UREA NITROGEN 11.7 mg/dL (7-18); CALCIUM 8.3 mg/dL (8.5-10.1)
[2019-07-28 06:48] LABS: CREATININE 0.2 mg/dL (0.55-1.3)
--- NOTE | 2019-07-28 07:27 | PN ---
Physical Exam: SUBJECTIVE: Patient seen and examined OBJECTIVE: Vital Signs Period Temp Pulse Resp BP Sys/Ortiz Pulse Ox Last 24 Hr 99.4 F-100.7 F 101-129 35-35 98-146/50-86 92-100 GENERAL: The patient is sedated and unresponsive. HEAD: Normal with no signs of trauma. EYES: Pupils pinpoint, no scleral icterus. NECK: Trachea midline, supple, ETT in place. LUNGS: See attending note for full PE. HEART: Regular rate and rhythm. ABDOMEN: Soft, nontender, nondistended. : Caceres in place. EXTREMITIES:warm, no edema. Laboratory Results - last 24 hr 07/28/19 07/28/19 05:00 05:00 PT with INR 11.90 INR 1.01 PTT (Actin FS) 39.4 H Sodium 136 Potassium 3.4 L Chloride 87 L Carbon Dioxide 43 H Anion Gap 6 L BUN 11.7 Creatinine 0.2 L Est GFR (CKD-EPI)AfAm 233.83 Est GFR (CKD-EPI)NonAf 201.75 Random Glucose 91 Calcium 8.3 L Active Medications Generic Name Dose Route Start Last Admin Trade Name Freq PRN Reason Stop Dose Admin Acetaminophen 1,000 mg 07/16/19 06:09 07/28/19 01:05 Ofirmev Injection - IVPB 1,000 mg Q6H PRN Administration FEVER Amino Acids 30 ml 07/06/19 17:30 07/27/19 17:13 Prosource No Carb Liquid Pkt PO 30 ml BID@0800,1730 TIKI Administration Artificial Tears 1 drop 07/27/19 09:32 07/27/19 21:21 Artificial Tears OU 1 drop BID PRN Administration DRY EYES Ascorbic Acid 500 mg 07/08/19 11:00 07/27/19 09:06 Vitamin C - PO 500 mg DAILY TIKI Administration Chlorhexidine Gluconate 1 applic 06/22/19 22:00 07/27/19 21:20 Hibiclens For Decolonization - TP 1 applic HS TIKI Administration Cholecalciferol 800 unit 07/03/19 16:00 07/27/19 09:54 Vitamin D3 - PO 800 unit DAILY TIKI Administration Enoxaparin Sodium 80 mg 07/23/19 12:30 07/27/19 21:20 Lovenox - SQ 80 mg BID TIKI Administration IV Flush 4 ml 07/18/19 18:26 Triple Lumen Flush IVPUSH PRN PRN Protocol Propofol 1,000,000 mcg in 100 mls @ 2.313 mls/hr 06/22/19 14:00 07/28/19 05:54 Diprivan - IVPB Not Given TITR TIKI Protocol 5 MCG/KG/MIN Morphine Sulfate 100 mg in 100 mls @ 1 mls/hr 06/22/19 21:30 07/27/19 21:20 Morphine 100mg/100ml-0.9% Nacl IVPB 7 mg/hr TITR TIKI 7 mls/hr Administration Protocol 1 MG/HR Caspofungin 50 mg/ Sodium 250 mls @ 250 mls/hr 07/14/19 10:00 07/27/19 09:21 Chloride IVPB 250 mls/hr Q24H TIKI Administration Meropenem 1 gm/ Dextrose 100 mls @ 200 mls/hr 07/16/19 11:00 07/28/19 01:04 IVPB 200 mls/hr Q8H-IV TIKI Administration Vecuronium [place] 100 mg in 100 mls @ 5.226 mls/hr 07/17/19 11:15 07/28/19 05:00 Vecuronium [place] IVPB 1 mcg/kg/min TITR TIKI 5.226 mls/hr Administration Protocol 1 MCG/KG/MIN Furosemide 100 mg/ Dextrose 100 mls @ 10 mls/hr 07/19/19 10:15 07/28/19 05:01 IVPB 10 mg/hr TITR TIKI 10 mls/hr Administration Protocol 10 MG/HR Vancomycin HCl 1,500 mg/ 500 mls @ 250 mls/hr 07/21/19 02:00 07/28/19 01:04 Dextrose IVPB 250 mls/hr Q12H TIKI Administration Protocol Lacosamide 200 mg 06/23/19 10:00 07/27/19 21:19 Vimpat Injection - IVPB 200 mg BID TIKI Administration Levetiracetam 1,000 mg 06/23/19 10:00 07/27/19 21:19 Keppra Injection - IVPB 1,000 mg BID TIKI Administration Pantoprazole Sodium 40 mg 06/24/19 10:00 07/27/19 09:06 Protonix Iv IVPUSH 40 mg DAILY TIKI Administration Phenobarbital 60 mg 06/28/19 10:00 07/27/19 21:19 Phenobarbital Liquid - GT 60 mg BID TIKI Administration Polyethylene Glycol 17 gm 07/18/19 22:00 07/27/19 21:20 Miralax (For Daily Use) - PO 17 gm BID TIKI Administration Potassium Chloride 40 meq 07/27/19 11:15 07/27/19 21:19 Potassium Chloride Oral Liquid PO 40 meq BID TIKI Administration Potassium Chloride 20 meq 07/28/19 07:30 Potassium Chloride 20 Meq Premix Ivpb - IVPB 07/28/19 08:31 Q60M TIKI Spironolactone 50 mg 07/19/19 10:00 07/27/19 09:01 Aldactone - PO 50 mg DAILY TIKI Administration Topiramate 200 mg 06/23/19 14:00 07/28/19 05:01 Topamax - PO 200 mg TID TIKI Administration Zinc Sulfate 220 mg 06/23/19 22:00 07/27/19 21:20 Orazinc - PO 220 mg BID TIKI Administration ASSESSMENT/PLAN: Kumar Hurtado is a 38M with H MR and epilepsy who presented to ED initially with SOB and hypoxia requiring intubation, admitted to hospital for hypoxic respiratory failure due to covid-19. NAEO. Tolerating FiO2 60%, attempting to wean down pending trach placement. Called patient's mother yesterday, spoke to patient's sister Dee regarding trach consent, will speak to their parents and call back today together for phone consent. Patient tolerating Lasix drip and aldactone, UOP outstanding, but K 3.4, repleting with PO and IV K. Sedated on propofol@30, morphine @7. Paralyzed on vec@1. No pressors. NEURO #post-intubation sedation - continue propofol and morphine - wean as tolerated - CTM mental status #epilepsy - continue Keppra, Topamax, Vimpat, and phenobarbitol - Ativan 2mg PRN for breakthrough PULM #hypoxic respiratory failure 2/2 covid-19 - intubated - AC 35/280/8/60% I:E 0.6 PPlat 32 - wean FIO2 with goal SpO2 >90% - pending trach placement as vent settings weaned - continue vecuronium drip - s/p Plaquenil, convalescent plasma, and Actemra CARDIO #hypotension - resolved - CTM VS ID #fungemia - yeast present in blood and sputum cultures - continue caspofungin started 07/13 - Dr. Bravo following #bacteremia with +MRSA/E. coli - continue vancomycin - continue meropenem FEN #diet - continue tube feeds Vital 1.2 #hypokalemia - CTM daily K - BID NGT KCl 40mEq while on Lasix drip - 20mEq KCl IV #electrolytes - replete PRN PPX #DVT - Full Dose Lovenox #stress ulcer - Protonix 40mg QD LTD - ETT replaced 07/17 - LSC TLC placed 07/17 - R radial A-line placed 07/17 DISPO - ICU - Full Code Visit type - Emergency Visit Emergency Visit: No - New Patient This patient is new to me today: No - Critical Care Critical Care patient: Yes Total Critical Care Time (in minutes): 35 Critical Care Statement: The care of this patient involved high complexity decision making to prevent further life threatening deterioration of the patient's condition and/or to evaluate & treat vital organ system(s) failure or risk of failure. ATTENDING PHYSICIAN STATEMENT I saw and evaluated the patient. I reviewed the resident's note and discussed the case with the resident. I agree with the resident's findings and plan as documented. SUBJECTIVE: OBJECTIVE: ASSESSMENT AND PLAN:
[2019-07-28] MEDS ORDERED: MEROPENEM 1 GM VIAL (RESTRICTED TO ID) IVPB ONE (08:33)
[2019-07-28] MEDS ORDERED: DEXTROSE 5%-WATER 100 ML IVPB ONE (08:33)
[2019-07-28] MEDS: POTASSIUM CHLORIDE 20 MEQ PREMIX IVPB 100 ML IVPB SCH ×2 (08:37→10:13)
[2019-07-28] MEDS: AMINO ACIDS/PROTEIN HYDROLYS 30 ML LIQUID.PKT PO SCH ×2 (08:37→18:13)
[2019-07-28] MEDS: CASPOFUNGIN ACETATE 50 MG in SODIUM CHLORIDE 250 ML IVPB SCH (09:47)
[2019-07-28] MEDS: levETIRAcetam 500 MG/5 ML INJECTION VIAL IVPB SCH ×2 (09:47→21:13)
[2019-07-28] MEDS: SPIRONOLACTONE 25 MG TABLET PO SCH (09:47)
[2019-07-28] MEDS: ENOXAPARIN NA (PORCINE) 80 MG/0.8 ML DISP.SYRIN SQ SCH ×2 (09:47→21:01)
[2019-07-28] MEDS: ZINC SULFATE 220 MG CAPSULE (FP) PO SCH ×2 (09:48→21:00)
[2019-07-28] MEDS: CHOLECALCIFEROL (VIT D3) 400 UNIT (10 MCG) TABLET PO SCH (09:48)
[2019-07-28] MEDS: POLYETHYLENE GLYCOL 3350 119 GM BTL PO SCH ×2 (09:48→21:00)
[2019-07-28] MEDS: Lacosamide 200 MG/20 ML VIAL IVPB SCH ×2 (09:48→21:14)
[2019-07-28] MEDS: PHENobarbital 20 MG/5 ML UNIT-DOSE CUP GT SCH ×2 (09:48→21:00)
[2019-07-28] MEDS: POTASSIUM CHLORIDE ORAL LIQUID 20 MEQ/15 ML PO SCH ×2 (09:48→21:00)
[2019-07-28] MEDS: ASCORBIC ACID 500 MG TABLET (FP) PO SCH (09:48)
[2019-07-28] MEDS: PANTOPRAZOLE SODIUM 40 MG VIAL IVPUSH SCH (09:48)
--- NOTE | 2019-07-28 12:25 | PN ---
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 (short form) - Note 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: remains intubated Vital Signs Period Temp Pulse Resp BP Sys/Ortiz Pulse Ox Last 24 Hr 97.9 F-100.7 F 101-129 35-35 98-153/50-87 91-100 cor-rrr lungs decreased bs at bases abd soft,nt ext +pedal edema CBC, BMP 07/24/19 06:00 07/28/19 05:00 Microbiology 07/12/19 11:04 Blood - Peripheral Venous Yeast/Fungus Identification - Final Janis Lusitaniae 07/18/19 21:10 Blood - Peripheral Venous Blood Culture - Final NO GROWTH AFTER 5 DAYS INCUBATION 07/18/19 18:30 Blood - Peripheral Venous Blood Culture - Final NO GROWTH AFTER 5 DAYS INCUBATION 07/15/19 12:25 Blood - Peripheral Venous Blood Culture - Final NO GROWTH AFTER 5 DAYS INCUBATION 07/16/19 15:15 Blood - Peripheral Venous Blood Culture - Final Staphylococcus Epidermidis 07/14/19 11:30 Blood - Peripheral Venous Blood Culture - Final NO GROWTH AFTER 5 DAYS INCUBATION 07/16/19 15:05 Blood - Peripheral Venous Blood Culture - Final Staphylococcus Epidermidis 07/16/19 12:30 Sputum - Endotrachea Suction/Ventilator Gram Stain - Final 07/16/19 12:30 Sputum - Endotrachea Suction/Ventilator Sputum Culture - Final S Aureus Escherichia Coli 07/12/19 10:55 Blood - Peripheral Venous Blood Culture - Final NO GROWTH AFTER 5 DAYS INCUBATION 07/16/19 12:30 Urine - Urine - Catheterized Urine Culture - Final NO GROWTH OBTAINED 07/12/19 06:00 Sputum - Endotrachea Suction/Ventilator Gram Stain - Final 07/12/19 06:00 Sputum - Endotrachea Suction/Ventilator Sputum Culture - Final 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 Mr S Aureus 07/12/19 11:04 Blood - Peripheral Venous Blood Culture - Final 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 07/01/19 18:15 Blood - Peripheral Venous Blood Culture - Final NO GROWTH AFTER 5 DAYS INCUBATION 06/29/19 12:30 Blood - Peripheral Venous Blood Culture - Final Staphylococcus Epidermidis 06/30/19 17:15 Sputum - Endotrachea Suction/Ventilator Gram Stain - Final 06/30/19 17:15 Sputum - Endotrachea Suction/Ventilator Sputum Culture - Final Escherichia Coli Esbl Flask Pusher 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 06/28/19 09:00 Blood - Peripheral Venous Blood Culture - Final Staphylococcus Epidermidis 06/28/19 12:50 Sputum - Endotrachea Suction/Ventilator Gram Stain - Final 06/28/19 12:50 Sputum - Endotrachea Suction/Ventilator Sputum Culture - Final 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 Staphylococcus Aureus 06/25/19 13:40 Blood - Peripheral Venous Blood Culture - Final NO GROWTH AFTER 5 DAYS INCUBATION 06/25/19 13:20 Blood - Peripheral Venous Blood Culture - Final NO GROWTH AFTER 5 DAYS INCUBATION 06/28/19 12:51 Urine - Urine Caceres Urine Culture - Final NO GROWTH OBTAINED 06/22/19 13:00 Blood - Peripheral Venous Blood Culture - Final Staphylococcus Warneri 06/22/19 13:00 Blood - Peripheral Venous Blood Culture - Final Staphylococcus Epidermidis 06/24/19 00:01 Urine - Urine Caceres Urine Culture - Final NO GROWTH OBTAINED 06/24/19 00:01 Urine For Antigen Detection Legionella Antigen - Final 06/24/19 00:01 Urine For Antigen Detection Streptococcus pneumoniae Antigen (M - Final cxray unchanged vanco trough 14.2 covid pcr negative (repeat) quantiferon negative imp/reccd ARDS/pneumonia- MRSA/Ecoli -vanco/meropenem-day #12-d/c meropenem bacteremia- recurrent staph epi bacteremia- ?endocarditis- echo unrevealing- continue vancomycin, day #12 repeat blood cultures negative fungemia- janis lusitanae- has completed 14 days cancidas- will d/c covid 19 positive -repeat pcr s/p convalescent plasma s/p tocilizumab MRSA isolation for sputum culture- esbl isolation Problem List - Problems (1) Suspected COVID-19 virus infection Code(s): R68.89 - OTHER GENERAL SYMPTOMS AND SIGNS (2) Acute respiratory failure with hypoxia Code(s): J96.01 - ACUTE RESPIRATORY FAILURE WITH HYPOXIA (3) Bacteremia Code(s): R78.81 - BACTEREMIA
--- NOTE | 2019-07-28 14:06 | PN ---
Teaching Attending Note Name of Resident: Miguel Taylor ATTENDING PHYSICIAN STATEMENT I saw and evaluated the patient. I reviewed the resident's note and discussed the case with the resident. I agree with the resident's findings and plan as documented. SUBJECTIVE: Patient seen and examined in the ICU. Remains intubated and sedated. No pressors. PPlat: 31 OBJECTIVE: Intake & Output 07/25/19 07/26/19 07/27/19 07/28/19 23:59 23:59 23:59 23:59 Intake Total 2761.3 3507.0 3922 2032.8 Output Total 3200 4940 4150 1999 Balance -438.7 -1433.0 -228 32.8 Weight 204 lb 5.896 oz 190 lb 7 oz 188 lb 14.978 oz 189 lb Last Vital Signs Temp Pulse Resp BP Pulse Ox 97.9 F 129 H 35 H 115/70 91 L 07/28/19 11:46 07/28/19 11:46 07/28/19 11:46 07/28/19 11:46 07/28/19 09:20 Active Medications Acetaminophen (Ofirmev Injection -) 1,000 mg IVPB Q6H PRN PRN Reason: FEVER Last Admin: 07/28/19 01:05 Dose: 1,000 mg Documented by: Amino Acids (Prosource No Carb Liquid Pkt) 30 ml PO BID@0800,1730 [facility] Last Admin: 07/28/19 08:37 Dose: 30 ml Documented by: Artificial Tears (Artificial Tears) 1 drop OU BID PRN PRN Reason: DRY EYES Last Admin: 07/27/19 21:21 Dose: 1 drop Documented by: Ascorbic Acid (Vitamin C -) 500 mg PO DAILY [facility] Last Admin: 07/28/19 09:48 Dose: 500 mg Documented by: Chlorhexidine Gluconate (Hibiclens For Decolonization -) 1 applic TP HS [facility] Last Admin: 07/27/19 21:20 Dose: 1 applic Documented by: Cholecalciferol (Vitamin D3 -) 800 unit PO DAILY [facility] Last Admin: 07/28/19 09:48 Dose: 800 unit Documented by: Enoxaparin Sodium (Lovenox -) 80 mg SQ BID [facility] Last Admin: 07/28/19 09:47 Dose: 80 mg Documented by: IV Flush (Triple Lumen Flush) 4 ml IVPUSH PRN PRN PRN Reason: Protocol Propofol (Diprivan -) 1,000,000 mcg in 100 mls @ 2.313 mls/hr IVPB TITR [facility]; Protocol Last Admin: 07/28/19 05:54 Dose: Not Given Documented by: Morphine Sulfate (Morphine 100mg/100ml-0.9% Nacl) 100 mg in 100 mls @ 1 mls/hr IVPB TITR [facility]; Protocol Last Admin: 07/27/19 21:20 Dose: 7 mg/hr, 7 mls/hr Documented by: Vecuronium [place] (Vecuronium [place]) 100 mg in 100 mls @ 5.226 mls/hr IVPB TITR [facility]; Protocol Last Admin: 07/28/19 05:00 Dose: 1 mcg/kg/min, 5.226 mls/hr Documented by: Furosemide 100 mg/ Dextrose 100 mls @ 10 mls/hr IVPB TITR [facility]; Protocol Last Admin: 07/28/19 09:48 Dose: 10 mg/hr, 10 mls/hr Documented by: Vancomycin HCl 1,500 mg/ (Dextrose) 500 mls @ 250 mls/hr IVPB Q12H [facility]; Protocol Last Admin: 07/28/19 13:31 Dose: 250 mls/hr Documented by: Lacosamide (Vimpat Injection -) 200 mg IVPB BID [facility] Last Admin: 07/28/19 09:48 Dose: 200 mg Documented by: Levetiracetam (Keppra Injection -) 1,000 mg IVPB BID [facility] Last Admin: 07/28/19 09:47 Dose: 1,000 mg Documented by: Pantoprazole Sodium (Protonix Iv) 40 mg IVPUSH DAILY [facility] Last Admin: 07/28/19 09:48 Dose: 40 mg Documented by: Phenobarbital (Phenobarbital Liquid -) 60 mg GT BID [facility] Last Admin: 07/28/19 09:48 Dose: 60 mg Documented by: Polyethylene Glycol (Miralax (For Daily Use) -) 17 gm PO BID [facility] Last Admin: 07/28/19 09:48 Dose: 17 gm Documented by: Potassium Chloride (Potassium Chloride Oral Liquid) 40 meq PO BID [facility] Last Admin: 07/28/19 09:48 Dose: 40 meq Documented by: Spironolactone (Aldactone -) 50 mg PO DAILY [facility] Last Admin: 07/28/19 09:47 Dose: 50 mg Documented by: Topiramate (Topamax -) 200 mg PO TID [facility] Last Admin: 07/28/19 13:31 Dose: 200 mg Documented by: Zinc Sulfate (Orazinc -) 220 mg PO BID [facility] Last Admin: 07/28/19 09:48 Dose: 220 mg Documented by: Gen: intubated, sedated Heart: RRR Lung: scattered rhonchi Abd: soft, nontender Ext: no edema Laboratory Results - last 24 hr 07/28/19 07/28/19 05:00 05:00 PT with INR 11.90 INR 1.01 PTT (Actin FS) 39.4 H Sodium 136 Potassium 3.4 L Chloride 87 L Carbon Dioxide 43 H Anion Gap 6 L BUN 11.7 Creatinine 0.2 L Est GFR (CKD-EPI)AfAm 233.83 Est GFR (CKD-EPI)NonAf 201.75 Random Glucose 91 Calcium 8.3 L ASSESSMENT AND PLAN: Acute Hypoxic and Hypercapneic Respiratory Failure COVID19 Pneumonia E Coli Pneumonia Fungenmia Bacteremia Septic Shock Seizure Disorder Mental Retardation - Aggressive repletion of electrolytes - continue antibiotics, antifungals per ID - continue antiepileptics - low tidal volume ventilation - titrate FiO2, PEEP to keep SpO2 >90% - sedate for vent synchrony - enteral feeds - DVT/GI prophylaxis - continue ICU monitoring Family amenable for a Tracheostomy; will arrange once parameters have become optimized. Dr Callaway Critical care time spent in reviewing chart, evaluating patient and formulating plan 35 min
--- NOTE | 2019-07-28 16:30 | PN ---
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, Physician History of Present Illness: Pt seen and examined at bedside. He remains in the ICU. He remains intubated. - Current Medication List Current Medications: Active Medications Acetaminophen (Ofirmev Injection -) 1,000 mg IVPB Q6H PRN PRN Reason: FEVER Last Admin: 07/28/19 01:05 Dose: 1,000 mg Documented by: Amino Acids (Prosource No Carb Liquid Pkt) 30 ml PO BID@0800,1730 [facility] Last Admin: 07/28/19 08:37 Dose: 30 ml Documented by: Artificial Tears (Artificial Tears) 1 drop OU BID PRN PRN Reason: DRY EYES Last Admin: 07/27/19 21:21 Dose: 1 drop Documented by: Ascorbic Acid (Vitamin C -) 500 mg PO DAILY [facility] Last Admin: 07/28/19 09:48 Dose: 500 mg Documented by: Chlorhexidine Gluconate (Hibiclens For Decolonization -) 1 applic TP HS [facility] Last Admin: 07/27/19 21:20 Dose: 1 applic Documented by: Cholecalciferol (Vitamin D3 -) 800 unit PO DAILY [facility] Last Admin: 07/28/19 09:48 Dose: 800 unit Documented by: Enoxaparin Sodium (Lovenox -) 80 mg SQ BID [facility] Last Admin: 07/28/19 09:47 Dose: 80 mg Documented by: IV Flush (Triple Lumen Flush) 4 ml IVPUSH PRN PRN PRN Reason: Protocol Propofol (Diprivan -) 1,000,000 mcg in 100 mls @ 2.313 mls/hr IVPB TITR [facility]; Protocol Last Admin: 07/28/19 05:54 Dose: Not Given Documented by: Morphine Sulfate (Morphine 100mg/100ml-0.9% Nacl) 100 mg in 100 mls @ 1 mls/hr IVPB TITR [facility]; Protocol Last Admin: 07/27/19 21:20 Dose: 7 mg/hr, 7 mls/hr Documented by: Vecuronium [place] (Vecuronium [place]) 100 mg in 100 mls @ 5.226 mls/hr IVPB TITR [facility]; Protocol Last Admin: 07/28/19 05:00 Dose: 1 mcg/kg/min, 5.226 mls/hr Documented by: Furosemide 100 mg/ Dextrose 100 mls @ 10 mls/hr IVPB TITR [facility]; Protocol Last Admin: 07/28/19 09:48 Dose: 10 mg/hr, 10 mls/hr Documented by: Vancomycin HCl 1,500 mg/ (Dextrose) 500 mls @ 250 mls/hr IVPB Q12H [facility]; Protocol Last Admin: 07/28/19 13:31 Dose: 250 mls/hr Documented by: Lacosamide (Vimpat Injection -) 200 mg IVPB BID [facility] Last Admin: 07/28/19 09:48 Dose: 200 mg Documented by: Levetiracetam (Keppra Injection -) 1,000 mg IVPB BID [facility] Last Admin: 07/28/19 09:47 Dose: 1,000 mg Documented by: Pantoprazole Sodium (Protonix Iv) 40 mg IVPUSH DAILY [facility] Last Admin: 07/28/19 09:48 Dose: 40 mg Documented by: Phenobarbital (Phenobarbital Liquid -) 60 mg GT BID [facility] Last Admin: 07/28/19 09:48 Dose: 60 mg Documented by: Polyethylene Glycol (Miralax (For Daily Use) -) 17 gm PO BID [facility] Last Admin: 07/28/19 09:48 Dose: 17 gm Documented by: Potassium Chloride (Potassium Chloride Oral Liquid) 40 meq PO BID [facility] Last Admin: 07/28/19 09:48 Dose: 40 meq Documented by: Spironolactone (Aldactone -) 50 mg PO DAILY [facility] Last Admin: 07/28/19 09:47 Dose: 50 mg Documented by: Topiramate (Topamax -) 200 mg PO TID [facility] Last Admin: 07/28/19 13:31 Dose: 200 mg Documented by: Zinc Sulfate (Orazinc -) 220 mg PO BID [facility] Last Admin: 07/28/19 09:48 Dose: 220 mg Documented by: - Objective Vital Signs: Vital Signs Temperature 98.9 F 07/28/19 16:00 Pulse Rate 112 H 07/28/19 16:00 Respiratory Rate 35 H 07/28/19 16:00 Blood Pressure 106/56 L 07/28/19 16:00 O2 Sat by Pulse Oximetry (%) 958 H 07/28/19 13:00 Constitutional: Yes: Calm Eyes: Yes: Conjunctiva Clear HENT: Yes: Atraumatic Neck: Yes: Supple Cardiovascular: Yes: S1, S2 Respiratory: Yes: Mechanically Ventilated Gastrointestinal: Yes: Soft Genitourinary: Yes: Caceres Present Extremities: Yes: WNL Edema: LLE: Trace, RLE: Trace Neurological: Yes: Lethargy Labs: CBC, BMP 07/24/19 06:00 07/28/19 05:00 INR, PTT INR 1.01 (0.83-1.09) 07/28/19 05:00 Problem List - Problems (1) Hypernatremia Code(s): E87.0 - HYPEROSMOLALITY AND HYPERNATREMIA (2) Hypokalemia Code(s): E87.6 - HYPOKALEMIA (3) Acute respiratory failure with hypoxia Code(s): J96.01 - ACUTE RESPIRATORY FAILURE WITH HYPOXIA (4) Bacteremia Code(s): R78.81 - BACTEREMIA Assessment/Plan Current Medications Generic Name Dose Route Start Last Admin Trade Name Freq PRN Reason Stop Dose Admin Acetaminophen 1,000 mg 07/16/19 06:09 07/28/19 01:05 Ofirmev Injection - IVPB 1,000 mg Q6H PRN Administration FEVER Amino Acids 30 ml 07/06/19 17:30 07/28/19 08:37 Prosource No Carb Liquid Pkt PO 30 ml BID@0800,1730 [facility] Administration Artificial Tears 1 drop 07/27/19 09:32 07/27/19 21:21 Artificial Tears OU 1 drop BID PRN Administration DRY EYES Ascorbic Acid 500 mg 07/08/19 11:00 07/28/19 09:48 Vitamin C - PO 500 mg DAILY [facility] Administration Chlorhexidine Gluconate 1 applic 06/22/19 22:00 07/27/19 21:20 Hibiclens For Decolonization - TP 1 applic HS [facility] Administration Cholecalciferol 800 unit 07/03/19 16:00 07/28/19 09:48 Vitamin D3 - PO 800 unit DAILY [facility] Administration Enoxaparin Sodium 80 mg 07/23/19 12:30 07/28/19 09:47 Lovenox - SQ 80 mg BID [facility] Administration IV Flush 4 ml 07/18/19 18:26 Triple Lumen Flush IVPUSH PRN PRN Protocol Propofol 1,000,000 mcg in 100 mls @ 2.313 mls/hr 06/22/19 14:00 07/28/19 05:54 Diprivan - IVPB Not Given TITR [facility] Protocol 5 MCG/KG/MIN Morphine Sulfate 100 mg in 100 mls @ 1 mls/hr 06/22/19 21:30 07/27/19 21:20 Morphine 100mg/100ml-0.9% Nacl IVPB 7 mg/hr TITR [facility] 7 mls/hr Administration Protocol 1 MG/HR Vecuronium [place] 100 mg in 100 mls @ 5.226 mls/hr 07/17/19 11:15 07/28/19 05:00 Vecuronium [place] IVPB 1 mcg/kg/min TITR [facility] 5.226 mls/hr Administration Protocol 1 MCG/KG/MIN Furosemide 100 mg/ Dextrose 100 mls @ 10 mls/hr 07/19/19 10:15 07/28/19 09:48 IVPB 10 mg/hr TITR [facility] 10 mls/hr Administration Protocol 10 MG/HR Vancomycin HCl 1,500 mg/ 500 mls @ 250 mls/hr 07/21/19 02:00 07/28/19 13:31 Dextrose IVPB 250 mls/hr Q12H [facility] Administration Protocol Lacosamide 200 mg 06/23/19 10:00 07/28/19 09:48 Vimpat Injection - IVPB 200 mg BID [facility] Administration Levetiracetam 1,000 mg 06/23/19 10:00 07/28/19 09:47 Keppra Injection - IVPB 1,000 mg BID [facility] Administration Pantoprazole Sodium 40 mg 06/24/19 10:00 07/28/19 09:48 Protonix Iv IVPUSH 40 mg DAILY [facility] Administration Phenobarbital 60 mg 06/28/19 10:00 07/28/19 09:48 Phenobarbital Liquid - GT 60 mg BID [facility] Administration Polyethylene Glycol 17 gm 07/18/19 22:00 07/28/19 09:48 Miralax (For Daily Use) - PO 17 gm BID [facility] Administration Potassium Chloride 40 meq 07/27/19 11:15 07/28/19 09:48 Potassium Chloride Oral Liquid PO 40 meq BID [facility] Administration Spironolactone 50 mg 07/19/19 10:00 07/28/19 09:47 Aldactone - PO 50 mg DAILY [facility] Administration Topiramate 200 mg 06/23/19 14:00 07/28/19 13:31 Topamax - PO 200 mg TID [facility] Administration Zinc Sulfate 220 mg 06/23/19 22:00 07/28/19 09:48 Orazinc - PO 220 mg BID [facility] Administration Impression 1. hypokalemia 2. hypernatremia 3. resp failure 4. fungemia 5. covid 19 infection 6. ards 7. developemental delay 8. epilepsy 9. bactermia 10. resp acidosis with compensatory met alk Plan - replace potassium - can increase aldacotone dose - repeat labs in am - vent support - monitor oxygen - cont ICU care
[2019-07-28] MEDS: CHLORHEXIDINE GLUCONATE 4% CLEANSER FOR DECOLONIZATION TP SCH (21:01)
[2019-07-29] MEDS: VECURONIUM BROMIDE 100 MG/100 ML BAG IVPB SCH (01:26)
[2019-07-29] MEDS: ACETAMINOPHEN 1000 MG/100 ML VIAL (NON FORMULARY) IVPB PRN ×2 (01:26→21:08)
[2019-07-29] MEDS ORDERED: PT OWN MED DRAWER 7, Y5N ONE ×8 (01:43→21:08)
[2019-07-29] MEDS: VANCOMYCIN HCL 1,500 MG in DEXTROSE 5%-WATER - 500 ML IVPB SCH ×2 (01:47→16:11)
[2019-07-29 05:24] LABS: ALLENS TEST POSITIVE; ARTERIAL BLD GAS O2 SATURATION 93.6 % (95-98); ARTERIAL BLOOD GAS BASE EXCESS 15.3 mmol/L (-2-2); ARTERIAL BLOOD GAS PCO2 62.4 mmHg (35-45); ARTERIAL BLOOD GAS PO2 67.9 mmHg (80-100); ARTERIAL BLOOD GAS pH 7.44 (7.35-7.45)
[2019-07-29] MEDS: MORPHINE SULFATE/0.9% NACL/PF 100 MG/100 ML BAG IVPB SCH (05:39)
[2019-07-29] MEDS: TOPIRAMATE 200 MG TABLET PO SCH ×3 (05:42→21:09)
[2019-07-29 06:36] LABS: HEMATOCRIT 27.6 % (35.4-49); HEMOGLOBIN 9.2 GM/dL (11.7-16.9); MCH 30.7 pg (25.7-33.7); MCHC 33.3 g/dl (32.0-35.9); MEAN CELL VOLUME 92.3 fl (80-96); MEAN PLT VOLUME 8.2 fl (7.5-11.1); PLATELET COUNT 388 K/MM3 (134-434); RBC 2.99 M/mm3 (4.00-5.60); RDW 19.8 % (11.9-15.9); WHITE BLOOD COUNT 10.8 K/mm3 (4.0-10.0)
[2019-07-29 06:55] LABS: ANION GAP 6 MMOL/L (8-16); BLOOD UREA NITROGEN 13.8 mg/dL (7-18); CALCIUM 8.5 mg/dL (8.5-10.1); CHLORIDE 89 mmol/L (98-107); CO2 41 mmol/L (21-32); CREATININE < 0.2 mg/dL (0.55-1.3); GLUCOSE,RANDOM 96 mg/dL (74-106); MAGNESIUM 1.8 mg/dL (1.8-2.4); PHOSPHOROUS 3.9 mg/dL (2.5-4.9); SODIUM 136 mmol/L (136-145)
[2019-07-29] MEDS: AMINO ACIDS/PROTEIN HYDROLYS 30 ML LIQUID.PKT PO SCH ×2 (08:27→17:57)
[2019-07-29] MEDS ORDERED: POTASSIUM PHOSPHATE 20 MM in SODIUM CHLORIDE 250 ML IVPB ONE (08:37)
[2019-07-29] MEDS ORDERED: POTASSIUM CHLORIDE 20 MEQ PREMIX IVPB 100 ML IVPB ONE (08:42)
[2019-07-29] MEDS: KCL 10 MEQ IVPB 10 MEQ/100 ML INFUS.BAG IVPB SCH ×3 (10:56→16:11)
[2019-07-29] MEDS: POLYETHYLENE GLYCOL 3350 119 GM BTL PO SCH ×2 (10:57→21:12)
[2019-07-29] MEDS: levETIRAcetam 500 MG/5 ML INJECTION VIAL IVPB SCH ×2 (10:57→21:08)
[2019-07-29] MEDS: SPIRONOLACTONE 25 MG TABLET PO SCH (10:57)
[2019-07-29] MEDS: ENOXAPARIN NA (PORCINE) 80 MG/0.8 ML DISP.SYRIN SQ SCH ×2 (10:57→21:09)
[2019-07-29] MEDS: ZINC SULFATE 220 MG CAPSULE (FP) PO SCH ×2 (10:58→21:10)
[2019-07-29] MEDS: ASCORBIC ACID 500 MG TABLET (FP) PO SCH (10:58)
[2019-07-29] MEDS: POTASSIUM CHLORIDE ORAL LIQUID 20 MEQ/15 ML PO SCH ×2 (10:58→21:10)
[2019-07-29] MEDS: FUROSEMIDE INJECTION 100 MG in DEXTROSE 5%-WATER - 90 ML IVPB SCH (10:58)
[2019-07-29] MEDS: PHENobarbital 20 MG/5 ML UNIT-DOSE CUP GT SCH ×2 (10:58→21:33)
[2019-07-29] MEDS: Lacosamide 200 MG/20 ML VIAL IVPB SCH ×2 (10:58→21:08)
[2019-07-29] MEDS: PANTOPRAZOLE SODIUM 40 MG VIAL IVPUSH SCH (10:58)
[2019-07-29] MEDS: CHOLECALCIFEROL (VIT D3) 400 UNIT (10 MCG) TABLET PO SCH (10:59)
--- NOTE | 2019-07-29 13:02 | PN ---
Teaching Attending Note Name of Resident: Camacho Goldman ATTENDING PHYSICIAN STATEMENT I saw and evaluated the patient. I reviewed the resident's note and discussed the case with the resident. I agree with the resident's findings and plan as documented. SUBJECTIVE: Patient seen and examined in the ICU. Remains intubated and sedated. No pressors. PPlat: 32 OBJECTIVE: Intake & Output 07/26/19 07/27/19 07/28/19 07/29/19 23:59 23:59 23:59 23:59 Intake Total 3507.0 3922 3391.8 1265.1 Output Total 4940 4150 4150 1800 Balance -1433.0 -228 -758.2 -534.9 Weight 190 lb 7 oz 188 lb 14.978 oz 189 lb 189 lb Last Vital Signs Temp Pulse Resp BP Pulse Ox 100.8 F H 123 H 35 H 117/59 L 97 07/29/19 10:00 07/29/19 11:59 07/29/19 11:59 07/29/19 11:59 07/29/19 09:00 Active Medications Acetaminophen (Ofirmev Injection -) 1,000 mg IVPB Q6H PRN PRN Reason: FEVER Last Admin: 07/29/19 01:26 Dose: 1,000 mg Documented by: Amino Acids (Prosource No Carb Liquid Pkt) 30 ml PO BID@0800,1730 [facility] Last Admin: 07/29/19 08:27 Dose: 30 ml Documented by: Artificial Tears (Artificial Tears) 1 drop OU BID PRN PRN Reason: DRY EYES Last Admin: 07/27/19 21:21 Dose: 1 drop Documented by: Ascorbic Acid (Vitamin C -) 500 mg PO DAILY [facility] Last Admin: 07/29/19 10:58 Dose: 500 mg Documented by: Chlorhexidine Gluconate (Hibiclens For Decolonization -) 1 applic TP HS [facility] Last Admin: 07/28/19 21:01 Dose: 1 applic Documented by: Cholecalciferol (Vitamin D3 -) 800 unit PO DAILY [facility] Last Admin: 07/29/19 10:59 Dose: 800 unit Documented by: Enoxaparin Sodium (Lovenox -) 80 mg SQ BID [facility] Last Admin: 07/29/19 10:57 Dose: 80 mg Documented by: IV Flush (Triple Lumen Flush) 4 ml IVPUSH PRN PRN PRN Reason: Protocol Propofol (Diprivan -) 1,000,000 mcg in 100 mls @ 2.313 mls/hr IVPB TITR [facility]; Protocol Last Admin: 07/28/19 19:43 Dose: 30 mcg/kg/min, 13.88 mls/hr Documented by: Morphine Sulfate (Morphine 100mg/100ml-0.9% Nacl) 100 mg in 100 mls @ 1 mls/hr IVPB TITR [facility]; Protocol Last Admin: 07/29/19 05:39 Dose: 7 mg/hr, 7 mls/hr Documented by: Vecuronium [place] (Vecuronium [place]) 100 mg in 100 mls @ 5.226 mls/hr IVPB TITR [facility]; Protocol Last Admin: 07/29/19 01:26 Dose: 1 mcg/kg/min, 5.226 mls/hr Documented by: Furosemide 100 mg/ Dextrose 100 mls @ 10 mls/hr IVPB TITR [facility]; Protocol Last Admin: 07/29/19 10:58 Dose: 10 mg/hr, 10 mls/hr Documented by: Vancomycin HCl 1,500 mg/ (Dextrose) 500 mls @ 250 mls/hr IVPB Q12H [facility]; Protocol Last Admin: 07/29/19 01:47 Dose: 250 mls/hr Documented by: Lacosamide (Vimpat Injection -) 200 mg IVPB BID [facility] Last Admin: 07/29/19 10:58 Dose: 200 mg Documented by: Levetiracetam (Keppra Injection -) 1,000 mg IVPB BID [facility] Last Admin: 07/29/19 10:57 Dose: 1,000 mg Documented by: Pantoprazole Sodium (Protonix Iv) 40 mg IVPUSH DAILY [facility] Last Admin: 07/29/19 10:58 Dose: 40 mg Documented by: Phenobarbital (Phenobarbital Liquid -) 60 mg GT BID [facility] Last Admin: 07/29/19 10:58 Dose: 60 mg Documented by: Polyethylene Glycol (Miralax (For Daily Use) -) 17 gm PO BID [facility] Last Admin: 07/29/19 10:57 Dose: 17 gm Documented by: Potassium Chloride (Potassium Chloride Oral Liquid) 40 meq PO BID [facility] Last Admin: 07/29/19 10:58 Dose: 40 meq Documented by: Potassium Chloride (Potassium Chloride 20 Meq Premix Ivpb -) 20 meq IVPB ONCE ONE Stop: 07/29/19 08:43 Spironolactone (Aldactone -) 100 mg PO DAILY [facility] Last Admin: 07/29/19 10:57 Dose: 100 mg Documented by: Topiramate (Topamax -) 200 mg PO TID [facility] Last Admin: 07/29/19 05:42 Dose: 200 mg Documented by: Zinc Sulfate (Orazinc -) 220 mg PO BID [facility] Last Admin: 07/29/19 10:58 Dose: 220 mg Documented by: Gen: intubated, sedated Heart: RRR Lung: scattered rhonchi Abd: soft, nontender Ext: no edema Laboratory Results - last 24 hr 07/29/19 07/29/19 07/29/19 05:12 05:15 05:15 WBC 10.8 H RBC 2.99 L Hgb 9.2 L Hct 27.6 L D MCV 92.3 MCH 30.7 MCHC 33.3 RDW 19.8 H Plt Count 388 D MPV 8.2 Anticoagulation Therapy No Result Required. Puncture Site Right radial ABG pH 7.44 ABG pCO2 at Pt Temp 62.4 H ABG pO2 at Pt Temp 67.9 L ABG HCO3 41.6 H ABG O2 Sat (Measured) 93.6 L ABG O2 Content No Result Required. ABG Base Excess 15.3 H Yousuf Test Positive Patient On Oxygen Yes O2 Delivery Device Vent Oxygen Flow Rate 60 Vent Mode A/c Vent Rate 35 Mechanical Rate Ac PEEP 8.0 Pressure Support Vent 280 Sodium 136 Potassium 3.0 L Chloride 89 L Carbon Dioxide 41 H Anion Gap 6 L BUN 13.8 Creatinine < 0.2 L Est GFR (CKD-EPI)AfAm 233.83 Est GFR (CKD-EPI)NonAf 201.75 Random Glucose 96 Calcium 8.5 Phosphorus 3.9 Magnesium 1.8 ASSESSMENT AND PLAN: Acute Hypoxic and Hypercapneic Respiratory Failure COVID19 Pneumonia E Coli Pneumonia Fungenmia Bacteremia Septic Shock Seizure Disorder Mental Retardation - Aggressive repletion of electrolytes - continue antibiotics, antifungals per ID - continue antiepileptics - low tidal volume ventilation - titrate FiO2, PEEP to keep SpO2 >90% - sedate for vent synchrony - enteral feeds - DVT/GI prophylaxis - continue ICU monitoring Family amenable for a Tracheostomy; will arrange once parameters have become optimized. Dr Callaway Critical care time spent in reviewing chart, evaluating patient and formulating plan 35 min
--- NOTE | 2019-07-29 13:06 | PN ---
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 (short form) - Note 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: remains intubated fiO2 improved to 60% today low grade temp- recultured sedated Vital Signs Period Temp Pulse Resp BP Sys/Ortiz Pulse Ox Last 24 Hr 98.4 F-100.8 F 101-123 35-37 97-133/51-68 93-97 cor-rrr llungs decreased bs at bases abd soft,nt ext no edema +anthony CBC, BMP 07/29/19 05:15 07/29/19 05:15 Microbiology 07/12/19 11:04 Blood - Peripheral Venous Yeast/Fungus Identification - Final Janis Lusitaniae 07/18/19 21:10 Blood - Peripheral Venous Blood Culture - Final NO GROWTH AFTER 5 DAYS INCUBATION 07/18/19 18:30 Blood - Peripheral Venous Blood Culture - Final NO GROWTH AFTER 5 DAYS INCUBATION 07/15/19 12:25 Blood - Peripheral Venous Blood Culture - Final NO GROWTH AFTER 5 DAYS INCUBATION 07/16/19 15:15 Blood - Peripheral Venous Blood Culture - Final Staphylococcus Epidermidis 07/14/19 11:30 Blood - Peripheral Venous Blood Culture - Final NO GROWTH AFTER 5 DAYS INCUBATION 07/16/19 15:05 Blood - Peripheral Venous Blood Culture - Final Staphylococcus Epidermidis 07/16/19 12:30 Sputum - Endotrachea Suction/Ventilator Gram Stain - Final 07/16/19 12:30 Sputum - Endotrachea Suction/Ventilator Sputum Culture - Final Mr S Aureus Escherichia Coli 07/12/19 10:55 Blood - Peripheral Venous Blood Culture - Final NO GROWTH AFTER 5 DAYS INCUBATION 07/16/19 12:30 Urine - Urine - Catheterized Urine Culture - Final NO GROWTH OBTAINED 07/12/19 06:00 Sputum - Endotrachea Suction/Ventilator Gram Stain - Final 07/12/19 06:00 Sputum - Endotrachea Suction/Ventilator Sputum Culture - Final 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 Mr S Aureus 07/12/19 11:04 Blood - Peripheral Venous Blood Culture - Final 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 07/01/19 18:15 Blood - Peripheral Venous Blood Culture - Final NO GROWTH AFTER 5 DAYS INCUBATION 06/29/19 12:30 Blood - Peripheral Venous Blood Culture - Final Staphylococcus Epidermidis 06/30/19 17:15 Sputum - Endotrachea Suction/Ventilator Gram Stain - Final 06/30/19 17:15 Sputum - Endotrachea Suction/Ventilator Sputum Culture - Final Escherichia Coli [facility] [employer] 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 06/28/19 09:00 Blood - Peripheral Venous Blood Culture - Final Staphylococcus Epidermidis 06/28/19 12:50 Sputum - Endotrachea Suction/Ventilator Gram Stain - Final 06/28/19 12:50 Sputum - Endotrachea Suction/Ventilator Sputum Culture - Final 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 Staphylococcus Aureus 06/25/19 13:40 Blood - Peripheral Venous Blood Culture - Final NO GROWTH AFTER 5 DAYS INCUBATION 06/25/19 13:20 Blood - Peripheral Venous Blood Culture - Final NO GROWTH AFTER 5 DAYS INCUBATION 06/28/19 12:51 Urine - Urine Anthony Urine Culture - Final NO GROWTH OBTAINED 06/22/19 13:00 Blood - Peripheral Venous Blood Culture - Final Staphylococcus Warneri 06/22/19 13:00 Blood - Peripheral Venous Blood Culture - Final Staphylococcus Epidermidis 06/24/19 00:01 Urine - Urine Anthony Urine Culture - Final NO GROWTH OBTAINED 06/24/19 00:01 Urine For Antigen Detection Legionella Antigen - Final 06/24/19 00:01 Urine For Antigen Detection Streptococcus pneumoniae Antigen (M - Final cxray unchanged vanco trough 14.2 covid pcr negative (repeat) quantiferon negative imp/reccd ARDS/pneumonia- bacteremia- recurrent staph epi bacteremia- ?endocarditis- echo unrevealing- continue vancomycin, day #13-plan 6 weeks repeat blood cultures sent today for low grade fever fungemia- janis lusitanae- has completed 14 days cancidas- covid 19 positive -repeat pcr negative s/p convalescent plasma s/p tocilizumab MRSA isolation for sputum culture- esbl isolation d/w icu staff overall prognosis is guarded Problem List - Problems (1) Suspected COVID-19 virus infection Code(s): R68.89 - OTHER GENERAL SYMPTOMS AND SIGNS (2) Acute respiratory failure with hypoxia Code(s): J96.01 - ACUTE RESPIRATORY FAILURE WITH HYPOXIA (3) Bacteremia Code(s): R78.81 - BACTEREMIA
--- NOTE | 2019-07-29 13:51 | PN ---
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, Physician History of Present Illness: Pt seen and examined at bedside. He remains in the ICU. He remains intubated. - Current Medication List Current Medications: Active Medications Acetaminophen (Ofirmev Injection -) 1,000 mg IVPB Q6H PRN PRN Reason: FEVER Last Admin: 07/29/19 01:26 Dose: 1,000 mg Documented by: Amino Acids (Prosource No Carb Liquid Pkt) 30 ml PO BID@0800,1730 [facility] Last Admin: 07/29/19 08:27 Dose: 30 ml Documented by: Artificial Tears (Artificial Tears) 1 drop OU BID PRN PRN Reason: DRY EYES Last Admin: 07/27/19 21:21 Dose: 1 drop Documented by: Ascorbic Acid (Vitamin C -) 500 mg PO DAILY [facility] Last Admin: 07/29/19 10:58 Dose: 500 mg Documented by: Chlorhexidine Gluconate (Hibiclens For Decolonization -) 1 applic TP HS [facility] Last Admin: 07/28/19 21:01 Dose: 1 applic Documented by: Cholecalciferol (Vitamin D3 -) 800 unit PO DAILY [facility] Last Admin: 07/29/19 10:59 Dose: 800 unit Documented by: Enoxaparin Sodium (Lovenox -) 80 mg SQ BID [facility] Last Admin: 07/29/19 10:57 Dose: 80 mg Documented by: IV Flush (Triple Lumen Flush) 4 ml IVPUSH PRN PRN PRN Reason: Protocol Propofol (Diprivan -) 1,000,000 mcg in 100 mls @ 2.313 mls/hr IVPB TITR [facility]; Protocol Last Admin: 07/28/19 19:43 Dose: 30 mcg/kg/min, 13.88 mls/hr Documented by: Morphine Sulfate (Morphine 100mg/100ml-0.9% Nacl) 100 mg in 100 mls @ 1 mls/hr IVPB TITR [facility]IK[facility]; Protocol Last Admin: 07/29/19 05:39 Dose: 7 mg/hr, 7 mls/hr Documented by: Vecuronium [place] (Vecuronium [place]) 100 mg in 100 mls @ 5.226 mls/hr IVPB TITR [facility]IK[facility]; Protocol Last Admin: 07/29/19 01:26 Dose: 1 mcg/kg/min, 5.226 mls/hr Documented by: Furosemide 100 mg/ Dextrose 100 mls @ 10 mls/hr IVPB TITR [facility]; Protocol Last Admin: 07/29/19 10:58 Dose: 10 mg/hr, 10 mls/hr Documented by: Vancomycin HCl 1,500 mg/ (Dextrose) 500 mls @ 250 mls/hr IVPB Q12H [facility]; Protocol Last Admin: 07/29/19 01:47 Dose: 250 mls/hr Documented by: Lacosamide (Vimpat Injection -) 200 mg IVPB BID [facility] Last Admin: 07/29/19 10:58 Dose: 200 mg Documented by: Levetiracetam (Keppra Injection -) 1,000 mg IVPB BID [facility] Last Admin: 07/29/19 10:57 Dose: 1,000 mg Documented by: Pantoprazole Sodium (Protonix Iv) 40 mg IVPUSH DAILY [facility] Last Admin: 07/29/19 10:58 Dose: 40 mg Documented by: Phenobarbital (Phenobarbital Liquid -) 60 mg GT BID [facility] Last Admin: 07/29/19 10:58 Dose: 60 mg Documented by: Polyethylene Glycol (Miralax (For Daily Use) -) 17 gm PO BID [facility] Last Admin: 07/29/19 10:57 Dose: 17 gm Documented by: Potassium Chloride (Potassium Chloride Oral Liquid) 40 meq PO BID [facility] Last Admin: 07/29/19 10:58 Dose: 40 meq Documented by: Potassium Chloride (Potassium Chloride 20 Meq Premix Ivpb -) 20 meq IVPB ONCE ONE Stop: 07/29/19 08:43 Spironolactone (Aldactone -) 100 mg PO DAILY [facility] Last Admin: 07/29/19 10:57 Dose: 100 mg Documented by: Topiramate (Topamax -) 200 mg PO TID [facility] Last Admin: 07/29/19 05:42 Dose: 200 mg Documented by: Zinc Sulfate (Orazinc -) 220 mg PO BID [facility] Last Admin: 07/29/19 10:58 Dose: 220 mg Documented by: - Objective Vital Signs: Vital Signs Temperature 100.8 F H 07/29/19 10:00 Pulse Rate 123 H 07/29/19 11:59 Respiratory Rate 35 H 07/29/19 11:59 Blood Pressure 117/59 L 07/29/19 11:59 O2 Sat by Pulse Oximetry (%) 97 07/29/19 09:00 Constitutional: Yes: Calm Cardiovascular: Yes: S1, S2 Respiratory: Yes: Mechanically Ventilated Gastrointestinal: Yes: Soft Genitourinary: Yes: Caceres Present Musculoskeletal: Yes: Muscle Weakness Edema: Yes Neurological: Yes: Lethargy Labs: CBC, BMP 07/29/19 05:15 07/29/19 05:15 INR, PTT INR 1.01 (0.83-1.09) 07/28/19 05:00 Problem List - Problems (1) Hypernatremia Code(s): E87.0 - HYPEROSMOLALITY AND HYPERNATREMIA (2) Hypokalemia Code(s): E87.6 - HYPOKALEMIA (3) Acute respiratory failure with hypoxia Code(s): J96.01 - ACUTE RESPIRATORY FAILURE WITH HYPOXIA (4) Bacteremia Code(s): R78.81 - BACTEREMIA Assessment/Plan Current Medications Generic Name Dose Route Start Last Admin Trade Name Freq PRN Reason Stop Dose Admin Acetaminophen 1,000 mg 07/16/19 06:09 07/29/19 01:26 Ofirmev Injection - IVPB 1,000 mg Q6H PRN Administration FEVER Amino Acids 30 ml 07/06/19 17:30 07/29/19 08:27 Prosource No Carb Liquid Pkt PO 30 ml BID@0800,1730 [facility]IKI Administration Artificial Tears 1 drop 07/27/19 09:32 07/27/19 21:21 Artificial Tears OU 1 drop BID PRN Administration DRY EYES Ascorbic Acid 500 mg 07/08/19 11:00 07/29/19 10:58 Vitamin C - PO 500 mg DAILY [facility]IKI Administration Chlorhexidine Gluconate 1 applic 06/22/19 22:00 07/28/19 21:01 Hibiclens For Decolonization - TP 1 applic HS [facility]IKI Administration Cholecalciferol 800 unit 07/03/19 16:00 07/29/19 10:59 Vitamin D3 - PO 800 unit DAILY TIKI Administration Enoxaparin Sodium 80 mg 07/23/19 12:30 07/29/19 10:57 Lovenox - SQ 80 mg BID TIKI Administration IV Flush 4 ml 07/18/19 18:26 Triple Lumen Flush IVPUSH PRN PRN Protocol Propofol 1,000,000 mcg in 100 mls @ 2.313 mls/hr 06/22/19 14:00 07/28/19 19:43 Diprivan - IVPB 30 mcg/kg/min TITR T[facility]I 13.88 mls/hr Administration Protocol 5 MCG/KG/MIN Morphine Sulfate 100 mg in 100 mls @ 1 mls/hr 06/22/19 21:30 07/29/19 05:39 Morphine 100mg/100ml-0.9% Nacl IVPB 7 mg/hr TITR [facility]IKI 7 mls/hr Administration Protocol 1 MG/HR Vecuronium [place] 100 mg in 100 mls @ 5.226 mls/hr 07/17/19 11:15 07/29/19 01:26 Vecuronium [place] IVPB 1 mcg/kg/min TITR TIKI 5.226 mls/hr Administration Protocol 1 MCG/KG/MIN Furosemide 100 mg/ Dextrose 100 mls @ 10 mls/hr 07/19/19 10:15 07/29/19 10:58 IVPB 10 mg/hr TITR TIKI 10 mls/hr Administration Protocol 10 MG/HR Vancomycin HCl 1,500 mg/ 500 mls @ 250 mls/hr 07/21/19 02:00 07/29/19 01:47 Dextrose IVPB 250 mls/hr Q12H [facility]IKI Administration Protocol Lacosamide 200 mg 06/23/19 10:00 07/29/19 10:58 Vimpat Injection - IVPB 200 mg BID [facility]IKI Administration Levetiracetam 1,000 mg 06/23/19 10:00 07/29/19 10:57 Keppra Injection - IVPB 1,000 mg BID TIKI Administration Pantoprazole Sodium 40 mg 06/24/19 10:00 07/29/19 10:58 Protonix Iv IVPUSH 40 mg DAILY [facility]IKI Administration Phenobarbital 60 mg 06/28/19 10:00 07/29/19 10:58 Phenobarbital Liquid - GT 60 mg BID [facility]IKI Administration Polyethylene Glycol 17 gm 07/18/19 22:00 07/29/19 10:57 Miralax (For Daily Use) - PO 17 gm BID TIKI Administration Potassium Chloride 40 meq 07/27/19 11:15 07/29/19 10:58 Potassium Chloride Oral Liquid PO 40 meq BID [facility]I Administration Potassium Chloride 20 meq 07/29/19 08:42 Potassium Chloride 20 Meq Premix Ivpb - IVPB 07/29/19 08:43 ONCE ONE Spironolactone 100 mg 07/28/19 16:31 07/29/19 10:57 Aldactone - PO 100 mg DAILY [facility]IKI Administration Topiramate 200 mg 06/23/19 14:00 07/29/19 05:42 Topamax - PO 200 mg TID [facility]I Administration Zinc Sulfate 220 mg 06/23/19 22:00 07/29/19 10:58 Orazinc - PO 220 mg BID TIKI Administration Impression 1. hypokalemia 2. hypernatremia 3. resp failure 4. fungemia 5. covid 19 infection 6. ards 7. developemental delay 8. epilepsy 9. bactermia 10. resp acidosis with compensatory met alk Plan - aldactone increased to 100 mg today - cont lasix - monitor volume status - replace potassium - monitor lytes - monitor volume status - vent support - monitor oxygen - cont ICU care - pt remains on lasix drip - discussed with icu
--- NOTE | 2019-07-29 16:01 | PN ---
Physical Exam: SUBJECTIVE: Patient seen and examined OBJECTIVE: Vital Signs Period Temp Pulse Resp BP Sys/Ortiz Pulse Ox Last 24 Hr 99.5 F-100.8 F 101-129 35-37 97-139/51-87 93-97 GENERAL: The patient is sedated and unresponsive. HEAD: Normal with no signs of trauma. EYES: Pupils pinpoint, no scleral icterus. NECK: Trachea midline, supple, ETT in place. LUNGS: See attending note for full PE. HEART: Regular rate and rhythm. ABDOMEN: Soft, nontender, nondistended. : Caceres in place. EXTREMITIES:warm, no edema. Laboratory Results - last 24 hr 07/29/19 07/29/19 07/29/19 05:12 05:15 05:15 WBC 10.8 H RBC 2.99 L Hgb 9.2 L Hct 27.6 L D MCV 92.3 MCH 30.7 MCHC 33.3 RDW 19.8 H Plt Count 388 D MPV 8.2 Anticoagulation Therapy No Result Required. Puncture Site Right radial ABG pH 7.44 ABG pCO2 at Pt Temp 62.4 H ABG pO2 at Pt Temp 67.9 L ABG HCO3 41.6 H ABG O2 Sat (Measured) 93.6 L ABG O2 Content No Result Required. ABG Base Excess 15.3 H Yousuf Test Positive Patient On Oxygen Yes O2 Delivery Device Vent Oxygen Flow Rate 60 Vent Mode A/c Vent Rate 35 Mechanical Rate Ac PEEP 8.0 Pressure Support Vent 280 Sodium 136 Potassium 3.0 L Chloride 89 L Carbon Dioxide 41 H Anion Gap 6 L BUN 13.8 Creatinine < 0.2 L Est GFR (CKD-EPI)AfAm 233.83 Est GFR (CKD-EPI)NonAf 201.75 Random Glucose 96 Calcium 8.5 Phosphorus 3.9 Magnesium 1.8 Active Medications Generic Name Dose Route Start Last Admin Trade Name Freq PRN Reason Stop Dose Admin Acetaminophen 1,000 mg 07/16/19 06:09 07/29/19 01:26 Ofirmev Injection - IVPB 1,000 mg Q6H PRN Administration FEVER Amino Acids 30 ml 07/06/19 17:30 07/29/19 08:27 Prosource No Carb Liquid Pkt PO 30 ml BID@0800,1730 T[facility]I Administration Artificial Tears 1 drop 07/27/19 09:32 07/27/19 21:21 Artificial Tears OU 1 drop BID PRN Administration DRY EYES Ascorbic Acid 500 mg 07/08/19 11:00 07/29/19 10:58 Vitamin C - PO 500 mg DAILY TIKI Administration Chlorhexidine Gluconate 1 applic 06/22/19 22:00 07/28/19 21:01 Hibiclens For Decolonization - TP 1 applic HS [facility] Administration Cholecalciferol 800 unit 07/03/19 16:00 07/29/19 10:59 Vitamin D3 - PO 800 unit DAILY [facility] Administration Enoxaparin Sodium 80 mg 07/23/19 12:30 07/29/19 10:57 Lovenox - SQ 80 mg BID TIKI Administration IV Flush 4 ml 07/18/19 18:26 Triple Lumen Flush IVPUSH PRN PRN Protocol Propofol 1,000,000 mcg in 100 mls @ 2.313 mls/hr 06/22/19 14:00 07/28/19 19:43 Diprivan - IVPB 30 mcg/kg/min TITR TIKI 13.88 mls/hr Administration Protocol 5 MCG/KG/MIN Morphine Sulfate 100 mg in 100 mls @ 1 mls/hr 06/22/19 21:30 07/29/19 05:39 Morphine 100mg/100ml-0.9% Nacl IVPB 7 mg/hr TITR [facility]IKI 7 mls/hr Administration Protocol 1 MG/HR Vecuronium [place] 100 mg in 100 mls @ 5.226 mls/hr 07/17/19 11:15 07/29/19 01:26 Vecuronium [place] IVPB 1 mcg/kg/min TITR TIKI 5.226 mls/hr Administration Protocol 1 MCG/KG/MIN Furosemide 100 mg/ Dextrose 100 mls @ 10 mls/hr 07/19/19 10:15 07/29/19 10:58 IVPB 10 mg/hr TITR TIKI 10 mls/hr Administration Protocol 10 MG/HR Vancomycin HCl 1,500 mg/ 500 mls @ 250 mls/hr 07/21/19 02:00 07/29/19 01:47 Dextrose IVPB 250 mls/hr Q12H [facility]I Administration Protocol Lacosamide 200 mg 06/23/19 10:00 07/29/19 10:58 Vimpat Injection - IVPB 200 mg BID [facility] Administration Levetiracetam 1,000 mg 06/23/19 10:00 07/29/19 10:57 Keppra Injection - IVPB 1,000 mg BID TIKI Administration Pantoprazole Sodium 40 mg 06/24/19 10:00 07/29/19 10:58 Protonix Iv IVPUSH 40 mg DAILY [facility]I Administration Phenobarbital 60 mg 06/28/19 10:00 07/29/19 10:58 Phenobarbital Liquid - GT 60 mg BID [facility]IKI Administration Polyethylene Glycol 17 gm 07/18/19 22:00 07/29/19 10:57 Miralax (For Daily Use) - PO 17 gm BID [facility]IKI Administration Potassium Chloride 40 meq 07/27/19 11:15 07/29/19 10:58 Potassium Chloride Oral Liquid PO 40 meq BID [facility]I Administration Potassium Chloride 20 meq 07/29/19 08:42 Potassium Chloride 20 Meq Premix Ivpb - IVPB 07/29/19 08:43 ONCE ONE Spironolactone 100 mg 07/28/19 16:31 07/29/19 10:57 Aldactone - PO 100 mg DAILY [facility]I Administration Topiramate 200 mg 06/23/19 14:00 07/29/19 05:42 Topamax - PO 200 mg TID [facility] Administration Zinc Sulfate 220 mg 06/23/19 22:00 07/29/19 10:58 Orazinc - PO 220 mg BID [facility]I Administration ASSESSMENT/PLAN: Kumar Hurtado is a 38M with H MR and epilepsy who presented to ED initially with SOB and hypoxia requiring intubation, admitted to hospital for hypoxic respiratory failure due to covid-19. Fevers overnight. Tolerating FiO2 60%, attempting to wean down pending trach placement. Called patient's mother yesterday, spoke to patient's sister Dee regarding trach consent, will speak to their parents and call back today together for phone consent. Patient tolerating Lasix drip and aldactone, UOP outstanding, but K 3.0, repleting with PO and IV K in IVF. Sedated on propofol@30, morphine @7. Paralyzed on vec@1. No pressors. Not on pressors, can remove L TLC after PIV placed. 2x 18G IV placed in both brachial with US guidance. NEURO #post-intubation sedation - continue propofol and morphine - wean as tolerated - CTM mental status #epilepsy - continue Keppra, Topamax, Vimpat, and phenobarbitol - Ativan 2mg PRN for breakthrough PULM #hypoxic respiratory failure 2/2 covid-19 - intubated - AC 35/280/8/60% I:E 0.6 - wean FIO2 with goal SpO2 >90% - pending trach placement as vent settings weaned - continue vecuronium drip - s/p Plaquenil, convalescent plasma, and Actemra CARDIO #hypotension - resolved - CTM VS ID #fungemia - yeast present in blood and sputum cultures - continue caspofungin started 07/13 - Dr. Bravo following #bacteremia with +MRSA/E. coli - continue vancomycin - continue meropenem FEN #diet - continue tube feeds Vital 1.2 #hypokalemia - CTM daily K - BID NGT KCl 40mEq while on Lasix drip - now added potassium to IVF #electrolytes - replete PRN PPX #DVT - Full Dose Lovenox #stress ulcer - Protonix 40mg QD LTD - ETT replaced 07/17 - LSC TLC placed 07/17 - R radial A-line placed 07/17 DISPO - ICU - Full Code Visit type - Emergency Visit Emergency Visit: No - New Patient This patient is new to me today: No - Critical Care Critical Care patient: Yes Total Critical Care Time (in minutes): 35 Critical Care Statement: The care of this patient involved high complexity decision making to prevent further life threatening deterioration of the patient's condition and/or to evaluate & treat vital organ system(s) failure or risk of failure. ATTENDING PHYSICIAN STATEMENT I saw and evaluated the patient. I reviewed the resident's note and discussed the case with the resident. I agree with the resident's findings and plan as documented. SUBJECTIVE: OBJECTIVE: ASSESSMENT AND PLAN:
[2019-07-29] MEDS: CHLORHEXIDINE GLUCONATE 4% CLEANSER FOR DECOLONIZATION TP SCH (21:11)
[2019-07-30] MEDS: VANCOMYCIN HCL 1,500 MG in DEXTROSE 5%-WATER - 500 ML IVPB SCH ×2 (01:11→13:38)
[2019-07-30] MEDS: PROPOFOL 1,000,000 MCG/100 ML VIAL IVPB SCH ×2 (01:12→22:19)
[2019-07-30] MEDS: TOPIRAMATE 200 MG TABLET PO SCH ×2 (06:17→22:36)
[2019-07-30 06:33] LABS: HEMATOCRIT 25.5 % (35.4-49); HEMOGLOBIN 8.4 GM/dL (11.7-16.9); MCH 30.4 pg (25.7-33.7); MCHC 33.1 g/dl (32.0-35.9); MEAN CELL VOLUME 91.8 fl (80-96); MEAN PLT VOLUME 8.4 fl (7.5-11.1); PLATELET COUNT 347 K/MM3 (134-434); RBC 2.78 M/mm3 (4.00-5.60); RDW 19.8 % (11.9-15.9); WHITE BLOOD COUNT 14.2 K/mm3 (4.0-10.0)
[2019-07-30 06:45] LABS: ARTERIAL BLOOD GAS PCO2 63.1 mmHg (35-45); ARTERIAL BLOOD GAS pH 7.41 (7.35-7.45)
[2019-07-30 06:46] LABS: ALLENS TEST POSITIVE; ARTERIAL BLD GAS O2 SATURATION 96.2 % (95-98); ARTERIAL BLOOD GAS BASE EXCESS 12.4 mmol/L (-2-2); ARTERIAL BLOOD GAS PO2 84.7 mmHg (80-100)
[2019-07-30 06:59] LABS: ALBUMIN 1.9 g/dl (3.4-5.0); BILIRUBIN,TOTAL 0.5 mg/dL (0.2-1); BLOOD UREA NITROGEN 14.4 mg/dL (7-18); CALCIUM 8.2 mg/dL (8.5-10.1); CREATININE 0.2 mg/dL (0.55-1.3); MAGNESIUM 1.8 mg/dL (1.8-2.4); PHOSPHOROUS 4.9 mg/dL (2.5-4.9)
[2019-07-30] MEDS ORDERED: ACETAMINOPHEN 650 MG/20.3 ML ORAL SOLUTION (CUPS) PO PRN (07:40)
[2019-07-30] MEDS: KCL 10 MEQ IVPB 10 MEQ/100 ML INFUS.BAG IVPB SCH ×2 (08:30→09:34)
[2019-07-30] MEDS: AMINO ACIDS/PROTEIN HYDROLYS 30 ML LIQUID.PKT PO SCH ×2 (08:30→17:42)
--- NOTE | 2019-07-30 08:45 | PN ---
Physical Exam: SUBJECTIVE: Patient seen and examined. No acute events. O/p 2100 cc overnight still on lasix drip, repleted K. Removed central line as it is no longer needed. OBJECTIVE: Vital Signs Period Temp Pulse Resp BP Sys/Ortiz Pulse Ox Last 24 Hr 99.8 F-100.9 F 101-129 35-35 100-139/49-87 91-97 GENERAL: The patient is sedated and unresponsive. HEAD: Normal with no signs of trauma. EYES: Pupils pinpoint, no scleral icterus. NECK: Trachea midline, supple, ETT in place. LUNGS: Reduced BS b/l HEART: Regular rate and rhythm. ABDOMEN: Soft, nontender, nondistended. : Caceres in place. EXTREMITIES:warm, no edema. Laboratory Results - last 24 hr 07/30/19 07/30/19 07/30/19 05:00 05:00 06:15 WBC 14.2 H RBC 2.78 L Hgb 8.4 L Hct 25.5 L MCV 91.8 MCH 30.4 MCHC 33.1 RDW 19.8 H Plt Count 347 MPV 8.4 Anticoagulation Therapy No Result Required. Puncture Site Right radial ABG pH 7.41 ABG pCO2 at Pt Temp 63.1 H ABG pO2 at Pt Temp 84.7 ABG HCO3 39.3 H ABG O2 Sat (Measured) 96.2 ABG O2 Content No Result Required. ABG Base Excess 12.4 H Yousuf Test Positive Patient On Oxygen Yes O2 Delivery Device Vent Oxygen Flow Rate 60% Vent Mode A/c Vent Rate 35 Mechanical Rate No Result Required. PEEP 8.0 Pressure Support Vent 280 Sodium 136 Potassium 3.0 L Chloride 90 L Carbon Dioxide 40 H Anion Gap 6 L BUN 14.4 Creatinine 0.2 L Est GFR (CKD-EPI)AfAm 232.19 Est GFR (CKD-EPI)NonAf 200.34 Random Glucose 105 Calcium 8.2 L Phosphorus 4.9 Magnesium 1.8 Total Bilirubin 0.5 AST 31 ALT 24 Alkaline Phosphatase 131 H Total Protein 5.0 L Albumin 1.9 L Active Medications Generic Name Dose Route Start Last Admin Trade Name Freq PRN Reason Stop Dose Admin Acetaminophen 650 mg 07/30/19 07:40 Tylenol Oral Solution - PO Q6H PRN FEVER Amino Acids 30 ml 07/06/19 17:30 07/30/19 08:30 Prosource No Carb Liquid Pkt PO 30 ml BID@0800,1730 TIKI Administration Artificial Tears 1 drop 07/27/19 09:32 07/27/19 21:21 Artificial Tears OU 1 drop BID PRN Administration DRY EYES Ascorbic Acid 500 mg 07/08/19 11:00 07/29/19 10:58 Vitamin C - PO 500 mg DAILY TIKI Administration Chlorhexidine Gluconate 1 applic 06/22/19 22:00 07/29/19 21:11 Hibiclens For Decolonization - TP 1 applic HS [facility]I Administration Cholecalciferol 800 unit 07/03/19 16:00 07/29/19 10:59 Vitamin D3 - PO 800 unit DAILY TIKI Administration Enoxaparin Sodium 80 mg 07/23/19 12:30 07/29/19 21:09 Lovenox - SQ 80 mg BID TIKI Administration IV Flush 4 ml 07/18/19 18:26 Triple Lumen Flush IVPUSH PRN PRN Protocol Propofol 1,000,000 mcg in 100 mls @ 2.313 mls/hr 06/22/19 14:00 07/30/19 06:52 Diprivan - IVPB 20 mcg/kg/min TITR TIKI 9.253 mls/hr Titration Protocol 5 MCG/KG/MIN Morphine Sulfate 100 mg in 100 mls @ 1 mls/hr 06/22/19 21:30 07/29/19 05:39 Morphine 100mg/100ml-0.9% Nacl IVPB 7 mg/hr TITR TIKI 7 mls/hr Administration Protocol 1 MG/HR Vecuronium [place] 100 mg in 100 mls @ 5.226 mls/hr 07/17/19 11:15 07/29/19 01:26 Vecuronium [place] IVPB 1 mcg/kg/min TITR TIKI 5.226 mls/hr Administration Protocol 1 MCG/KG/MIN Furosemide 100 mg/ Dextrose 100 mls @ 10 mls/hr 07/19/19 10:15 07/29/19 10:58 IVPB 10 mg/hr TITR TIKI 10 mls/hr Administration Protocol 10 MG/HR Vancomycin HCl 1,500 mg/ 500 mls @ 250 mls/hr 07/21/19 02:00 07/30/19 01:11 Dextrose IVPB 250 mls/hr Q12H [facility]IKI Administration Protocol Potassium Chloride 10 meq in 100 mls @ 100 mls/hr 07/30/19 08:45 07/30/19 08:30 Potassium Chloride 10 Meq Premix Ivpb - IVPB 07/30/19 11:44 100 mls/hr Q60M TIKI Administration Lacosamide 200 mg 06/23/19 10:00 07/29/19 21:08 Vimpat Injection - IVPB 200 mg BID [facility]I Administration Levetiracetam 1,000 mg 06/23/19 10:00 07/29/19 21:08 Keppra Injection - IVPB 1,000 mg BID TIKI Administration Pantoprazole Sodium 40 mg 06/24/19 10:00 07/29/19 10:58 Protonix Iv IVPUSH 40 mg DAILY [facility]IKI Administration Phenobarbital 60 mg 06/28/19 10:00 07/29/19 21:33 Phenobarbital Liquid - GT 60 mg BID [facility]IKI Administration Polyethylene Glycol 17 gm 07/18/19 22:00 07/29/19 21:12 Miralax (For Daily Use) - PO 17 gm BID [facility]IKI Administration Potassium Chloride 40 meq 07/27/19 11:15 07/29/19 21:10 Potassium Chloride Oral Liquid PO 40 meq BID [facility]IKI Administration Spironolactone 100 mg 07/28/19 16:31 07/29/19 10:57 Aldactone - PO 100 mg DAILY [facility]IKI Administration Topiramate 200 mg 06/23/19 14:00 07/30/19 06:17 Topamax - PO 200 mg TID [facility]I Administration Zinc Sulfate 220 mg 06/23/19 22:00 07/29/19 21:10 Orazinc - PO 220 mg BID TIKI Administration ASSESSMENT/PLAN: Kumar Hurtado is a 38M with PMH MR and epilepsy who presented to ED initially with SOB and hypoxia requiring intubation, admitted to hospital for hypoxic respiratory failure due to covid-19. Sedated on propofol@30, morphine @7. Paralyzed on vec@1. No pressors. Titrated down FiO2 to 50% satting >95%, likely will undergo trach early next week. NEURO #post-intubation sedation - continue propofol and morphine - wean as tolerated - CTM mental status #epilepsy - continue Keppra, Topamax, Vimpat, and phenobarbitol - Ativan 2mg PRN for breakthrough PULM #hypoxic respiratory failure 2/2 covid-19 - intubated - AC 35/280/8/50% I:E 0.6 - wean FIO2 with goal SpO2 >90% - pending trach placement as vent settings weaned - continue vecuronium drip, lasix drip - s/p Plaquenil, convalescent plasma, and Actemra CARDIO #hypotension - resolved - CTM VS ID #fungemia - yeast present in blood and sputum cultures - continue caspofungin started 07/13 - Dr. Bravo following #bacteremia with +MRSA/E. coli - continue vancomycin - s/p ryan, casopofungin FEN #diet - continue tube feeds Vital 1.2 #hypokalemia - CTM daily K - BID NGT KCl 40mEq while on Lasix drip, IV 3 bags of Kriders ordered given K-3 #electrolytes - replete PRN PPX #DVT - Full Dose Lovenox #stress ulcer - Protonix 40mg QD LTD - ETT replaced 07/17 - LSC TLC placed 07/17 removed today - R radial A-line placed 07/17 DISPO - ICU - Full Code Visit type - Emergency Visit Emergency Visit: Yes ED Registration Date: 06/22/19 Care time: The patient presented to the Emergency Department on the above date and was hospitalized for further evaluation of their emergent condition. - New Patient This patient is new to me today: Yes Date on this admission: 07/30/19 - Critical Care Critical Care patient: Yes Total Critical Care Time (in minutes): 40 Critical Care Statement: The care of this patient involved high complexity decision making to prevent further life threatening deterioration of the patient's condition and/or to evaluate & treat vital organ system(s) failure or risk of failure. - Discharge Referral Referred to [facility] No ATTENDING PHYSICIAN STATEMENT I saw and evaluated the patient. I reviewed the resident's note and discussed the case with the resident. I agree with the resident's findings and plan as documented. SUBJECTIVE: OBJECTIVE: ASSESSMENT AND PLAN:
[2019-07-30] MEDS ORDERED: PT OWN MED DRAWER 7, Y5N ONE ×3 (08:46→13:34)
[2019-07-30] MEDS: SPIRONOLACTONE 25 MG TABLET PO SCH (10:10)
[2019-07-30] MEDS: levETIRAcetam 500 MG/5 ML INJECTION VIAL IVPB SCH ×2 (10:10→22:33)
[2019-07-30] MEDS: ENOXAPARIN NA (PORCINE) 80 MG/0.8 ML DISP.SYRIN SQ SCH (10:10)
[2019-07-30] MEDS: POLYETHYLENE GLYCOL 3350 119 GM BTL PO SCH ×2 (10:10→22:36)
[2019-07-30] MEDS: PANTOPRAZOLE SODIUM 40 MG VIAL IVPUSH SCH (10:11)
[2019-07-30] MEDS: ASCORBIC ACID 500 MG TABLET (FP) PO SCH (10:11)
[2019-07-30] MEDS: Lacosamide 200 MG/20 ML VIAL IVPB SCH ×2 (10:11→22:30)
[2019-07-30] MEDS: POTASSIUM CHLORIDE ORAL LIQUID 20 MEQ/15 ML PO SCH ×2 (10:11→22:37)
[2019-07-30] MEDS: CHOLECALCIFEROL (VIT D3) 400 UNIT (10 MCG) TABLET PO SCH (10:11)
[2019-07-30] MEDS: ZINC SULFATE 220 MG CAPSULE (FP) PO SCH ×2 (10:11→22:36)
[2019-07-30] MEDS: PHENobarbital 20 MG/5 ML UNIT-DOSE CUP GT SCH ×2 (10:11→22:35)
--- NOTE | 2019-07-30 12:14 | PN ---
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 (short form) - Note 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: remains intubated recultured yesterday sedated Vital Signs Period Temp Pulse Resp BP Sys/Ortiz Pulse Ox Last 24 Hr 99.8 F-100.9 F 97-129 35-35 100-139/49-87 91-96 cor-rrr lungs decreased bs at bases abd soft,nt ext no edema anthony Microbiology 07/29/19 11:46 Blood - Peripheral Venous Blood Culture - Preliminary NO GROWTH OBTAINED AFTER 24 HOURS, INCUBATION TO CONTINUE FOR 4 DAYS. 07/29/19 11:18 Blood - Central Line Blood Culture - Preliminary NO GROWTH OBTAINED AFTER 24 HOURS, INCUBATION TO CONTINUE FOR 4 DAYS. 07/29/19 11:18 Urine - Urine Anthony Urine Culture - Final NO GROWTH OBTAINED 07/12/19 11:04 Blood - Peripheral Venous Yeast/Fungus Identification - Final Janis Lusitaniae 07/18/19 21:10 Blood - Peripheral Venous Blood Culture - Final NO GROWTH AFTER 5 DAYS INCUBATION 07/18/19 18:30 Blood - Peripheral Venous Blood Culture - Final NO GROWTH AFTER 5 DAYS INCUBATION 07/15/19 12:25 Blood - Peripheral Venous Blood Culture - Final NO GROWTH AFTER 5 DAYS INCUBATION 07/16/19 15:15 Blood - Peripheral Venous Blood Culture - Final Staphylococcus Epidermidis 07/14/19 11:30 Blood - Peripheral Venous Blood Culture - Final NO GROWTH AFTER 5 DAYS INCUBATION 07/16/19 15:05 Blood - Peripheral Venous Blood Culture - Final Staphylococcus Epidermidis 07/16/19 12:30 Sputum - Endotrachea Suction/Ventilator Gram Stain - Final 07/16/19 12:30 Sputum - Endotrachea Suction/Ventilator Sputum Culture - Final Mr S Aureus Escherichia Coli 07/12/19 10:55 Blood - Peripheral Venous Blood Culture - Final NO GROWTH AFTER 5 DAYS INCUBATION 07/16/19 12:30 Urine - Urine - Catheterized Urine Culture - Final NO GROWTH OBTAINED 07/12/19 06:00 Sputum - Endotrachea Suction/Ventilator Gram Stain - Final 07/12/19 06:00 Sputum - Endotrachea Suction/Ventilator Sputum Culture - Final 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 Mr S Aureus 07/12/19 11:04 Blood - Peripheral Venous Blood Culture - Final 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 07/01/19 18:15 Blood - Peripheral Venous Blood Culture - Final NO GROWTH AFTER 5 DAYS INCUBATION 06/29/19 12:30 Blood - Peripheral Venous Blood Culture - Final Staphylococcus Epidermidis 06/30/19 17:15 Sputum - Endotrachea Suction/Ventilator Gram Stain - Final 06/30/19 17:15 Sputum - Endotrachea Suction/Ventilator Sputum Culture - Final Escherichia Coli Esbl Editor In Chief 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 06/28/19 09:00 Blood - Peripheral Venous Blood Culture - Final Staphylococcus Epidermidis 06/28/19 12:50 Sputum - Endotrachea Suction/Ventilator Gram Stain - Final 06/28/19 12:50 Sputum - Endotrachea Suction/Ventilator Sputum Culture - Final 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 Staphylococcus Aureus 06/25/19 13:40 Blood - Peripheral Venous Blood Culture - Final NO GROWTH AFTER 5 DAYS INCUBATION 06/25/19 13:20 Blood - Peripheral Venous Blood Culture - Final NO GROWTH AFTER 5 DAYS INCUBATION 06/28/19 12:51 Urine - Urine Anthony Urine Culture - Final NO GROWTH OBTAINED 06/22/19 13:00 Blood - Peripheral Venous Blood Culture - Final Staphylococcus Warneri 06/22/19 13:00 Blood - Peripheral Venous Blood Culture - Final Staphylococcus Epidermidis 06/24/19 00:01 Urine - Urine Anthony Urine Culture - Final NO GROWTH OBTAINED 06/24/19 00:01 Urine For Antigen Detection Legionella Antigen - Final 06/24/19 00:01 Urine For Antigen Detection Streptococcus pneumoniae Antigen (M - Final CBC, BMP 07/30/19 05:00 07/30/19 05:00 l cxray unchanged vanco trough 14.2 covid pcr negative (repeat) quantiferon negative imp/reccd ARDS/pneumonia- bacteremia- recurrent staph epi bacteremia- ?endocarditis- echo unrevealing- continue vancomycin, day #14-plan 6 weeks repeat blood cultures negative repeat vancomycin trough in am fungemia- janis lusitanae- has completed 14 days cancidas- covid 19 positive -repeat pcr negative s/p convalescent plasma s/p tocilizumab MRSA isolation for positive sputum culture- esbl isolation for prior sputum ecoli esbl overall prognosis is guarded Problem List - Problems (1) Suspected COVID-19 virus infection Code(s): R68.89 - OTHER GENERAL SYMPTOMS AND SIGNS (2) Acute respiratory failure with hypoxia Code(s): J96.01 - ACUTE RESPIRATORY FAILURE WITH HYPOXIA (3) Bacteremia Code(s): R78.81 - BACTEREMIA
--- NOTE | 2019-07-30 14:01 | PN ---
Teaching Attending Note Name of Resident: Bradford Veloz ATTENDING PHYSICIAN STATEMENT I saw and evaluated the patient. I reviewed the resident's note and discussed the case with the resident. I agree with the resident's findings and plan as documented. SUBJECTIVE: Patient seen and examined in the ICU. Remains intubated and sedated. No pressors. PPlat: 30 OBJECTIVE: Intake & Output 07/27/19 07/28/19 07/29/19 07/30/19 23:59 23:59 23:59 23:59 Intake Total 3922 3391.8 1265.1 1634 Output Total 4150 4150 3200 1500 Balance -228 -758.2 -1934.9 134 Weight 188 lb 14.978 oz 189 lb 189 lb 184 lb 7 oz Last Vital Signs Temp Pulse Resp BP Pulse Ox 99.9 F H 107 H 35 H 107/58 L 97 07/30/19 10:41 07/30/19 12:00 07/30/19 12:00 07/30/19 12:00 07/30/19 11:27 Active Medications Acetaminophen (Tylenol Oral Solution -) 650 mg PO Q6H PRN PRN Reason: FEVER Amino Acids (Prosource No Carb Liquid Pkt) 30 ml PO BID@0800,1730 [facility] Last Admin: 07/30/19 08:30 Dose: 30 ml Documented by: Artificial Tears (Artificial Tears) 1 drop OU BID PRN PRN Reason: DRY EYES Last Admin: 07/27/19 21:21 Dose: 1 drop Documented by: Ascorbic Acid (Vitamin C -) 500 mg PO DAILY [facility] Last Admin: 07/30/19 10:11 Dose: 500 mg Documented by: Chlorhexidine Gluconate (Hibiclens For Decolonization -) 1 applic TP HS [facility] Last Admin: 07/29/19 21:11 Dose: 1 applic Documented by: Cholecalciferol (Vitamin D3 -) 800 unit PO DAILY [facility] Last Admin: 07/30/19 10:11 Dose: 800 unit Documented by: IV Flush (Triple Lumen Flush) 4 ml IVPUSH PRN PRN PRN Reason: Protocol Propofol (Diprivan -) 1,000,000 mcg in 100 mls @ 2.313 mls/hr IVPB TITR [facility]; Pr otocol Last Titration: 07/30/19 06:52 Dose: 20 mcg/kg/min, 9.253 mls/hr Documented by: Morphine Sulfate (Morphine 100mg/100ml-0.9% Nacl) 100 mg in 100 mls @ 1 mls/hr IVPB TITR [facility]; Protocol Last Admin: 07/29/19 05:39 Dose: 7 mg/hr, 7 mls/hr Documented by: Vecuronium [place] (Vecuronium [place]) 100 mg in 100 mls @ 5.226 mls/hr IVPB TITR [facility]; Protocol Last Admin: 07/29/19 01:26 Dose: 1 mcg/kg/min, 5.226 mls/hr Documented by: Furosemide 100 mg/ Dextrose 100 mls @ 10 mls/hr IVPB TITR [facility]; Protocol Last Admin: 07/29/19 10:58 Dose: 10 mg/hr, 10 mls/hr Documented by: Vancomycin HCl 1,500 mg/ (Dextrose) 500 mls @ 250 mls/hr IVPB Q12H [facility]; Protocol Last Admin: 07/30/19 13:38 Dose: 250 mls/hr Documented by: Lacosamide (Vimpat Injection -) 200 mg IVPB BID [facility] Last Admin: 07/30/19 10:11 Dose: 200 mg Documented by: Levetiracetam (Keppra Injection -) 1,000 mg IVPB BID [facility] Last Admin: 07/30/19 10:10 Dose: 1,000 mg Documented by: Pantoprazole Sodium (Protonix Iv) 40 mg IVPUSH DAILY [facility] Last Admin: 07/30/19 10:11 Dose: 40 mg Documented by: Phenobarbital (Phenobarbital Liquid -) 60 mg GT BID [facility] Last Admin: 07/30/19 10:11 Dose: 60 mg Documented by: Polyethylene Glycol (Miralax (For Daily Use) -) 17 gm PO BID [facility] Last Admin: 07/30/19 10:10 Dose: 17 gm Documented by: Potassium Chloride (Potassium Chloride Oral Liquid) 40 meq PO BID [facility] Last Admin: 07/30/19 10:11 Dose: 40 meq Documented by: Spironolactone (Aldactone -) 100 mg PO DAILY [facility] Last Admin: 07/30/19 10:10 Dose: 100 mg Documented by: Topiramate (Topamax -) 200 mg PO TID [facility] Last Admin: 07/30/19 06:17 Dose: 200 mg Documented by: Zinc Sulfate (Orazinc -) 220 mg PO BID [facility] Last Admin: 07/30/19 10:11 Dose: 220 mg Documented by: Gen: intubated, sedated Heart: RRR Lung: scattered rhonchi Abd: soft, nontender Ext: no edema Laboratory Results - last 24 hr 07/30/19 07/30/19 07/30/19 05:00 05:00 06:15 WBC 14.2 H RBC 2.78 L Hgb 8.4 L Hct 25.5 L MCV 91.8 MCH 30.4 MCHC 33.1 RDW 19.8 H Plt Count 347 MPV 8.4 Anticoagulation Therapy No Result Required. Puncture Site Right radial ABG pH 7.41 ABG pCO2 at Pt Temp 63.1 H ABG pO2 at Pt Temp 84.7 ABG HCO3 39.3 H ABG O2 Sat (Measured) 96.2 ABG O2 Content No Result Required. ABG Base Excess 12.4 H Yousuf Test Positive Patient On Oxygen Yes O2 Delivery Device Vent Oxygen Flow Rate 60% Vent Mode A/c Vent Rate 35 Mechanical Rate No Result Required. PEEP 8.0 Pressure Support Vent 280 Sodium 136 Potassium 3.0 L Chloride 90 L Carbon Dioxide 40 H Anion Gap 6 L BUN 14.4 Creatinine 0.2 L Est GFR (CKD-EPI)AfAm 232.19 Est GFR (CKD-EPI)NonAf 200.34 Random Glucose 105 Calcium 8.2 L Phosphorus 4.9 Magnesium 1.8 Total Bilirubin 0.5 AST 31 ALT 24 Alkaline Phosphatase 131 H Total Protein 5.0 L Albumin 1.9 L ASSESSMENT AND PLAN: Acute Hypoxic and Hypercapneic Respiratory Failure COVID19 Pneumonia E Coli Pneumonia Fungenmia Bacteremia Septic Shock Seizure Disorder Mental Retardation - Aggressive repletion of electrolytes - continue antibiotics, antifungals per ID - continue antiepileptics - low tidal volume ventilation - titrate FiO2, PEEP to keep SpO2 >90% - sedate for vent synchrony - enteral feeds - DVT/GI prophylaxis - continue ICU monitoring Family amenable for a Tracheostomy; will arrange early next week. Dr Callaway Critical care time spent in reviewing chart, evaluating patient and formulating plan 35 min
--- NOTE | 2019-07-30 16:57 | PN ---
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, Physician History of Present Illness: Pt seen and examined at bedside. He remains in the ICU. He remains intubated. - Current Medication List Current Medications: Active Medications Acetaminophen (Tylenol Oral Solution -) 650 mg PO Q6H PRN PRN Reason: FEVER Amino Acids (Prosource No Carb Liquid Pkt) 30 ml PO BID@0800,1730 [facility] Last Admin: 07/30/19 08:30 Dose: 30 ml Documented by: Artificial Tears (Artificial Tears) 1 drop OU BID PRN PRN Reason: DRY EYES Last Admin: 07/27/19 21:21 Dose: 1 drop Documented by: Ascorbic Acid (Vitamin C -) 500 mg PO DAILY [facility] Last Admin: 07/30/19 10:11 Dose: 500 mg Documented by: Chlorhexidine Gluconate (Hibiclens For Decolonization -) 1 applic TP HS [facility] Last Admin: 07/29/19 21:11 Dose: 1 applic Documented by: Cholecalciferol (Vitamin D3 -) 800 unit PO DAILY [facility] Last Admin: 07/30/19 10:11 Dose: 800 unit Documented by: IV Flush (Triple Lumen Flush) 4 ml IVPUSH PRN PRN PRN Reason: Protocol Propofol (Diprivan -) 1,000,000 mcg in 100 mls @ 2.313 mls/hr IVPB TITR [facility]; Protocol Last Titration: 07/30/19 06:52 Dose: 20 mcg/kg/min, 9.253 mls/hr Documented by: Morphine Sulfate (Morphine 100mg/100ml-0.9% Nacl) 100 mg in 100 mls @ 1 mls/hr IVPB TITR [facility]; Protocol Last Admin: 07/29/19 05:39 Dose: 7 mg/hr, 7 mls/hr Documented by: Vecuronium [place] (Vecuronium Kite) 100 mg in 100 mls @ 5.226 mls/hr IVPB TITR [facility]; Protocol Last Admin: 07/29/19 01:26 Dose: 1 mcg/kg/min, 5.226 mls/hr Documented by: Furosemide 100 mg/ Dextrose 100 mls @ 10 mls/hr IVPB TITR [facility]; Protocol Last Admin: 07/29/19 10:58 Dose: 10 mg/hr, 10 mls/hr Documented by: Vancomycin HCl 1,500 mg/ (Dextrose) 500 mls @ 250 mls/hr IVPB Q12H [facility]; Protocol Last Admin: 07/30/19 13:38 Dose: 250 mls/hr Documented by: Lacosamide (Vimpat Injection -) 200 mg IVPB BID [facility] Last Admin: 07/30/19 10:11 Dose: 200 mg Documented by: Levetiracetam (Keppra Injection -) 1,000 mg IVPB BID [facility] Last Admin: 07/30/19 10:10 Dose: 1,000 mg Documented by: Pantoprazole Sodium (Protonix Iv) 40 mg IVPUSH DAILY [facility] Last Admin: 07/30/19 10:11 Dose: 40 mg Documented by: Phenobarbital (Phenobarbital Liquid -) 60 mg GT BID [facility] Last Admin: 07/30/19 10:11 Dose: 60 mg Documented by: Polyethylene Glycol (Miralax (For Daily Use) -) 17 gm PO BID [facility] Last Admin: 07/30/19 10:10 Dose: 17 gm Documented by: Potassium Chloride (Potassium Chloride Oral Liquid) 40 meq PO BID [facility] Last Admin: 07/30/19 10:11 Dose: 40 meq Documented by: Spironolactone (Aldactone -) 100 mg PO DAILY [facility] Last Admin: 07/30/19 10:10 Dose: 100 mg Documented by: Topiramate (Topamax -) 200 mg PO TID [facility] Last Admin: 07/30/19 06:17 Dose: 200 mg Documented by: Zinc Sulfate (Orazinc -) 220 mg PO BID [facility] Last Admin: 07/30/19 10:11 Dose: 220 mg Documented by: - Objective Vital Signs: Vital Signs Temperature 99.8 F H 07/30/19 14:00 Pulse Rate 111 H 07/30/19 14:00 Respiratory Rate 35 H 07/30/19 14:00 Blood Pressure 117/65 07/30/19 14:00 O2 Sat by Pulse Oximetry (%) 97 07/30/19 11:27 Constitutional: Yes: Calm Eyes: Yes: Conjunctiva Clear HENT: Yes: Atraumatic Cardiovascular: Yes: S1, S2 Respiratory: Yes: Mechanically Ventilated Gastrointestinal: Yes: Soft Genitourinary: Yes: Caceres Present Edema: Yes Edema: LLE: 1+, RLE: 1+ Neurological: Yes: Lethargy Labs: CBC, BMP 07/30/19 05:00 07/30/19 05:00 INR, PTT INR 1.01 (0.83-1.09) 07/28/19 05:00 Problem List - Problems (1) Hypernatremia Code(s): E87.0 - HYPEROSMOLALITY AND HYPERNATREMIA (2) Hypokalemia Code(s): E87.6 - HYPOKALEMIA (3) Acute respiratory failure with hypoxia Code(s): J96.01 - ACUTE RESPIRATORY FAILURE WITH HYPOXIA (4) Bacteremia Code(s): R78.81 - BACTEREMIA Assessment/Plan Current Medications Generic Name Dose Route Start Last Admin Trade Name Freq PRN Reason Stop Dose Admin Acetaminophen 650 mg 07/30/19 07:40 Tylenol Oral Solution - PO Q6H PRN FEVER Amino Acids 30 ml 07/06/19 17:30 07/30/19 08:30 Prosource No Carb Liquid Pkt PO 30 ml BID@0800,1730 [facility] Administration Artificial Tears 1 drop 07/27/19 09:32 07/27/19 21:21 Artificial Tears OU 1 drop BID PRN Administration DRY EYES Ascorbic Acid 500 mg 07/08/19 11:00 07/30/19 10:11 Vitamin C - PO 500 mg DAILY [facility] Administration Chlorhexidine Gluconate 1 applic 06/22/19 22:00 07/29/19 21:11 Hibiclens For Decolonization - TP 1 applic HS [facility] Administration Cholecalciferol 800 unit 07/03/19 16:00 07/30/19 10:11 Vitamin D3 - PO 800 unit DAILY [facility] Administration IV Flush 4 ml 07/18/19 18:26 Triple Lumen Flush IVPUSH PRN PRN Protocol Propofol 1,000,000 mcg in 100 mls @ 2.313 mls/hr 06/22/19 14:00 07/30/19 06:52 Diprivan - IVPB 20 mcg/kg/min TITR [facility] 9.253 mls/hr Titration Protocol 5 MCG/KG/MIN Morphine Sulfate 100 mg in 100 mls @ 1 mls/hr 06/22/19 21:30 07/29/19 05:39 Morphine 100mg/100ml-0.9% Nacl IVPB 7 mg/hr TITR [facility] 7 mls/hr Administration Protocol 1 MG/HR Vecuronium [place] 100 mg in 100 mls @ 5.226 mls/hr 07/17/19 11:15 07/29/19 01:26 Vecuronium [place] IVPB 1 mcg/kg/min TITR [facility] 5.226 mls/hr Administration Protocol 1 MCG/KG/MIN Furosemide 100 mg/ Dextrose 100 mls @ 10 mls/hr 07/19/19 10:15 07/29/19 10:58 IVPB 10 mg/hr TITR [facility] 10 mls/hr Administration Protocol 10 MG/HR Vancomycin HCl 1,500 mg/ 500 mls @ 250 mls/hr 07/21/19 02:00 07/30/19 13:38 Dextrose IVPB 250 mls/hr Q12H [facility] Administration Protocol Lacosamide 200 mg 06/23/19 10:00 07/30/19 10:11 Vimpat Injection - IVPB 200 mg BID [facility] Administration Levetiracetam 1,000 mg 06/23/19 10:00 07/30/19 10:10 Keppra Injection - IVPB 1,000 mg BID [facility] Administration Pantoprazole Sodium 40 mg 06/24/19 10:00 07/30/19 10:11 Protonix Iv IVPUSH 40 mg DAILY [facility] Administration Phenobarbital 60 mg 06/28/19 10:00 07/30/19 10:11 Phenobarbital Liquid - GT 60 mg BID [facility] Administration Polyethylene Glycol 17 gm 07/18/19 22:00 07/30/19 10:10 Miralax (For Daily Use) - PO 17 gm BID [facility] Administration Potassium Chloride 40 meq 07/27/19 11:15 07/30/19 10:11 Potassium Chloride Oral Liquid PO 40 meq BID [facility] Administration Spironolactone 100 mg 07/28/19 16:31 07/30/19 10:10 Aldactone - PO 100 mg DAILY [facility] Administration Topiramate 200 mg 06/23/19 14:00 07/30/19 06:17 Topamax - PO 200 mg TID [facility] Administration Zinc Sulfate 220 mg 06/23/19 22:00 07/30/19 10:11 Orazinc - PO 220 mg BID [facility] Administration Impression 1. hypokalemia 2. hypernatremia 3. resp failure 4. fungemia 5. covid 19 infection 6. ards 7. developemental delay 8. epilepsy 9. bactermia 10. resp acidosis with compensatory met alk Plan - cont aldactone - cont lasix, can transition to bolus doses - discussed with ICU team - cont vent support - replace potassium - monitor lytes
[2019-07-30] MEDS: MORPHINE SULFATE/0.9% NACL/PF 100 MG/100 ML BAG IVPB SCH (22:28)
[2019-07-30] MEDS ORDERED: PHENYLEPHRINE HCL 10 MG/1 ML SINGLE DOSE VIAL ONE (22:28)
[2019-07-30] MEDS: CHLORHEXIDINE GLUCONATE 4% CLEANSER FOR DECOLONIZATION TP SCH (22:37)
[2019-07-31] MEDS: FUROSEMIDE INJECTION 100 MG in DEXTROSE 5%-WATER - 90 ML IVPB SCH (01:30)
[2019-07-31] MEDS: VANCOMYCIN HCL 1,500 MG in DEXTROSE 5%-WATER - 500 ML IVPB SCH ×2 (01:36→13:31)
[2019-07-31] MEDS: VECURONIUM BROMIDE 100 MG/100 ML BAG IVPB SCH (05:47)
[2019-07-31 06:24] LABS: BASO % 0.5 % (0-2.0); EOS % 5.7 % (0-4.5); HEMATOCRIT 27.7 % (35.4-49); HEMOGLOBIN 9.1 GM/dL (11.7-16.9); LYMPH % 10.9 % (8-40); MCH 30.5 pg (25.7-33.7); MCHC 32.9 g/dl (32.0-35.9); MEAN CELL VOLUME 92.6 fl (80-96); MONO % 13.2 % (3.8-10.2); NEUT % 69.7 % (42.8-82.8); PLATELET COUNT 409 K/MM3 (134-434); RBC 2.99 M/mm3 (4.00-5.60); RDW 19.3 % (11.9-15.9); WHITE BLOOD COUNT 9.4 K/mm3 (4.0-10.0)
[2019-07-31 06:54] LABS: BLOOD UREA NITROGEN 11.2 mg/dL (7-18); CALCIUM 8.8 mg/dL (8.5-10.1); CREATININE 0.2 mg/dL (0.55-1.3); POTASSIUM 3.3 mmol/L (3.5-5.1)
[2019-07-31] MEDS ORDERED: PT OWN MED DRAWER 7, Y5N ONE (08:55)
[2019-07-31] MEDS: PHENobarbital 20 MG/5 ML UNIT-DOSE CUP GT SCH ×2 (09:30→21:27)
[2019-07-31] MEDS: AMINO ACIDS/PROTEIN HYDROLYS 30 ML LIQUID.PKT PO SCH (09:31)
[2019-07-31] MEDS: PANTOPRAZOLE SODIUM 40 MG VIAL IVPUSH SCH (09:32)
[2019-07-31] MEDS: POTASSIUM CHLORIDE ORAL LIQUID 20 MEQ/15 ML PO SCH (09:32)
[2019-07-31] MEDS: SPIRONOLACTONE 25 MG TABLET PO SCH (09:33)
[2019-07-31] MEDS: ASCORBIC ACID 500 MG TABLET (FP) PO SCH (09:33)
[2019-07-31] MEDS: ZINC SULFATE 220 MG CAPSULE (FP) PO SCH (09:33)
[2019-07-31] MEDS: levETIRAcetam 500 MG/5 ML INJECTION VIAL IVPB SCH (09:34)
[2019-07-31] MEDS: CHOLECALCIFEROL (VIT D3) 400 UNIT (10 MCG) TABLET PO SCH (09:35)
[2019-07-31] MEDS: POLYETHYLENE GLYCOL 3350 119 GM BTL PO SCH (09:38)
[2019-07-31] MEDS: Lacosamide 200 MG/20 ML VIAL IVPB SCH ×2 (09:38→21:30)
[2019-07-31] MEDS: TOPIRAMATE 200 MG TABLET PO SCH (11:22)
[2019-07-31] MEDS ORDERED: Lacosamide 50 MG/5 ML ORAL SOLUTION UNIT CUPS GT SCH (11:40)
--- NOTE | 2019-07-31 13:24 | PN ---
Teaching Attending Note Name of Resident: Bradford Veloz ATTENDING PHYSICIAN STATEMENT I saw and evaluated the patient. I reviewed the resident's note and discussed the case with the resident. I agree with the resident's findings and plan as documented. SUBJECTIVE: Pt seen and examined in the ICU. Remains intubated, sedated. No pressors. Pplat 31 with 50% FiO2, PEEP 8. Good urine output with lasix. OBJECTIVE: Vital Signs Period Temp Pulse Resp BP Sys/Ortiz Pulse Ox Last 24 Hr 97.3 F-99.8 F 94-114 35-35 105-145/56-74 94-98 Intake & Output 07/28/19 07/29/19 07/30/19 07/31/19 23:59 23:59 23:59 23:59 Intake Total 3391.8 1265.1 2513.8 1810.4 Output Total 4150 3200 4300 2500 Balance -758.2 -1934.9 -1786.2 -689.6 Weight 85.729 kg 85.729 kg 83.659 kg 84.368 kg Gen: intubated, sedated Heart: RRR Lung: bilateral rhonchi Abd: soft, nontender Ext: + edema CBC, BMP 07/31/19 05:50 07/31/19 05:50 ABG Results ABG pH 7.41 (7.35-7.45) 07/30/19 06:15 ABG pCO2 at Pt Temp 63.1 mmHg (35-45) H 07/30/19 06:15 ABG pO2 at Pt Temp 84.7 mmHg (80-100) 07/30/19 06:15 ABG HCO3 39.3 mmol/L (22-27) H 07/30/19 06:15 ABG O2 Sat (Measured) 96.2 % (95-98) 07/30/19 06:15 ABG O2 Content No Result Required. 07/30/19 06:15 ABG Base Excess 12.4 mmol/L (-2-2) H 07/30/19 06:15 Active Medications Acetaminophen (Tylenol Oral Solution -) 650 mg GT Q6H PRN PRN Reason: FEVER Amino Acids (Prosource No Carb Liquid Pkt) 30 ml GT BID@0800,1730 [facility] Artificial Tears (Artificial Tears) 1 drop OU BID PRN PRN Reason: DRY EYES Last Admin: 07/27/19 21:21 Dose: 1 drop Documented by: Ascorbic Acid (Vitamin C Oral Solution -) 500 mg GT DAILY [facility] Chlorhexidine Gluconate (Hibiclens For Decolonization -) 1 applic TP HS [facility] Last Admin: 07/30/19 22:37 Dose: 1 applic Documented by: Cholecalciferol (Vitamin D3 -) 800 unit NR DAILY [facility] Famotidine (Pepcid) 40 mg NR DAILY [facility] Furosemide (Lasix Oral Solution -) 40 mg GT BID@0600,1400 [facility] IV Flush (Triple Lumen Flush) 4 ml IVPUSH PRN PRN PRN Reason: Protocol Propofol (Diprivan -) 1,000,000 mcg in 100 mls @ 2.313 mls/hr IVPB TITR [facility]; Protocol Last Admin: 07/30/19 22:19 Dose: 15 mcg/kg/min, 6.94 mls/hr Documented by: Morphine Sulfate (Morphine 100mg/100ml-0.9% Nacl) 100 mg in 100 mls @ 1 mls/hr IVPB TITR [facility]; Protocol Last Infusion: 07/31/19 11:00 Dose: 0 mg/hr, 0 mls/hr Documented by: Vecuronium [place] (Vecuronium [place]) 100 mg in 100 mls @ 5.226 mls/hr IVPB TITR [facility]; Protocol Last Titration: 07/31/19 11:00 Dose: 0 mcg/kg/min, 0 mls/hr Documented by: Vancomycin HCl 1,500 mg/ (Dextrose) 500 mls @ 250 mls/hr IVPB Q12H [facility]; Protocol Last Admin: 07/31/19 01:36 Dose: 250 mls/hr Documented by: Lacosamide (Vimpat Injection -) 200 mg IVPB BID [facility] Levetiracetam (Levetiracetam Oral Suspension) 1,000 mg GT BID [facility] Phenobarbital (Phenobarbital Liquid -) 60 mg GT BID [facility] Last Admin: 07/31/19 09:30 Dose: 60 mg Documented by: Polyethylene Glycol (Miralax (For Daily Use) -) 17 gm GT BID [facility] Potassium Chloride (Potassium Chloride Oral Liquid) 40 meq GT BID [facility] Spironolactone (Aldactone -) 100 mg GT DAILY [facility] Topiramate (Topamax -) 200 mg GT TID [facility] Zinc Sulfate (Orazinc -) 220 mg GT BID [facility] ASSESSMENT AND PLAN: Acute Hypoxic and Hypercapneic Respiratory Failure COVID19 Pneumonia E Coli Pneumonia Fungenmia Bacteremia Septic Shock Seizure Disorder Mental Retardation - continue antibiotics, antifungals per ID - continue antiepileptics - lasix - monitor urine output, creatinine - low tidal volume ventilation - titrate FiO2, PEEP to keep SpO2 >90% - hold sedation to assess mental status - enteral feeds - DVT/GI prophylaxis - continue ICU monitoring - for tracheostomy next week if unable to wean further critical care time spent in reviewing chart, evaluating patient and formulating plan 35 min
[2019-07-31] MEDS: TOPIRAMATE 200 MG TABLET GT SCH ×2 (13:30→21:32)
[2019-07-31] MEDS: MORPHINE SULFATE/0.9% NACL/PF 100 MG/100 ML BAG IVPB SCH ×2 (14:00→21:25)
[2019-07-31] MEDS: PROPOFOL 1,000,000 MCG/100 ML VIAL IVPB SCH ×2 (14:00→19:00)
--- NOTE | 2019-07-31 14:01 | PN ---
Physical Exam: SUBJECTIVE: Patient seen and examined. Febrile 100.7 ice packs placed, not subsided with tylenol. OBJECTIVE: Vital Signs Period Temp Pulse Resp BP Sys/Ortiz Pulse Ox Last 24 Hr 97.3 F-98.8 F 94-114 35-35 105-145/56-74 94-98 GENERAL: The patient is sedated and unresponsive. HEAD: Normal with no signs of trauma. EYES: Pupils pinpoint, no scleral icterus. NECK: Trachea midline, supple, ETT in place. LUNGS: roncherous coarse breath sounds b/l HEART: Regular rate and rhythm. ABDOMEN: Soft, nontender, nondistended. : Caceres in place excellent output EXTREMITIES:warm, no edema. Laboratory Results - last 24 hr 07/31/19 07/31/19 05:50 05:50 WBC 9.4 RBC 2.99 L Hgb 9.1 L Hct 27.7 L MCV 92.6 MCH 30.5 MCHC 32.9 RDW 19.3 H Plt Count 409 MPV 8.0 Absolute Neuts (auto) 6.5 Neutrophils % 69.7 D Lymphocytes % 10.9 D Monocytes % 13.2 H Eosinophils % 5.7 H D Basophils % 0.5 D Nucleated RBC % 0 Sodium 137 Potassium 3.3 L Chloride 92 L Carbon Dioxide 42 H Anion Gap 4 L BUN 11.2 Creatinine 0.2 L Est GFR (CKD-EPI)AfAm 232.19 Est GFR (CKD-EPI)NonAf 200.34 Random Glucose 134 H Calcium 8.8 Active Medications Generic Name Dose Route Start Last Admin Trade Name Freq PRN Reason Stop Dose Admin Acetaminophen 650 mg 07/31/19 11:33 Tylenol Oral Solution - GT Q6H PRN FEVER Amino Acids 30 ml 07/31/19 11:33 Prosource No Carb Liquid Pkt GT BID@0800,1730 [facility] Artificial Tears 1 drop 07/27/19 09:32 07/27/19 21:21 Artificial Tears OU 1 drop BID PRN Administration DRY EYES Ascorbic Acid 500 mg 07/31/19 11:35 Vitamin C Oral Solution - GT DAILY [facility] Chlorhexidine Gluconate 1 applic 06/22/19 22:00 07/30/19 22:37 Hibiclens For Decolonization - TP 1 applic HS TIKI Administration Cholecalciferol 800 unit 07/31/19 11:35 Vitamin D3 - NR DAILY [facility] Famotidine 40 mg 07/31/19 11:53 Pepcid NR DAILY [facility] Furosemide 40 mg 07/31/19 14:00 Lasix Oral Solution - GT BID@0600,1400 T[facility] IV Flush 4 ml 07/18/19 18:26 Triple Lumen Flush IVPUSH PRN PRN Protocol Vecuronium [place] 100 mg in 100 mls @ 5.226 mls/hr 07/17/19 11:15 07/31/19 11:00 Vecuronium [place] IVPB 0 mcg/kg/min TITR T[facility] 0 mls/hr Titration Protocol 1 MCG/KG/MIN Vancomycin HCl 1,500 mg/ 500 mls @ 250 mls/hr 07/21/19 02:00 07/31/19 13:31 Dextrose IVPB 250 mls/hr Q12H [facility] Administration Protocol Propofol 1,000,000 mcg in 100 mls @ 2.531 mls/hr 07/31/19 14:00 Diprivan - IVPB TITR [facility] Protocol 5 MCG/KG/MIN Morphine Sulfate 100 mg in 100 mls @ 1 mls/hr 07/31/19 14:00 Morphine 100mg/100ml-0.9% Nacl IVPB TITR [facility] Protocol 1 MG/HR Lacosamide 200 mg 07/31/19 11:52 Vimpat Injection - IVPB BID [facility] Levetiracetam 1,000 mg 07/31/19 11:51 Levetiracetam Oral Suspension GT BID [facility] Phenobarbital 60 mg 06/28/19 10:00 07/31/19 09:30 Phenobarbital Liquid - GT 60 mg BID [facility] Administration Polyethylene Glycol 17 gm 07/31/19 11:56 Miralax (For Daily Use) - GT BID [facility] Potassium Chloride 40 meq 07/31/19 11:56 Potassium Chloride Oral Liquid GT BID [facility] Spironolactone 100 mg 07/31/19 11:57 Aldactone - GT DAILY [facility] Topiramate 200 mg 07/31/19 11:58 07/31/19 13:30 Topamax - GT 200 mg TID [facility] Administration Zinc Sulfate 220 mg 07/31/19 12:13 Orazinc - GT BID [facility] ASSESSMENT/PLAN: Kumar Hurtado is a 38M with PMH MR and epilepsy who presented to ED initially with SOB and hypoxia requiring intubation, admitted to hospital for hypoxic respiratory failure due to covid-19. Sedated on propofol@30, morphine @7. Paralyzed on vec@1. No pressors. Titrated down FiO2 to 50% satting >95%, likely will undergo trach early next week. NEURO #post-intubation sedation - restarted propofol and morphine after sedation vacation unsuccessful due to tachy and tachypnea - wean as tolerated - CTM mental status #epilepsy - continue Keppra, Topamax, Vimpat, and phenobarbitol - Ativan 2mg PRN for breakthrough PULM #hypoxic respiratory failure 2/2 covid-19 - intubated - AC 35/280/8/increased 50->60% due to SaO2 87 , plateau 31 during rounds - wean FIO2 with goal SpO2 >90% - pending trach placement as vent settings weaned, vs extubation evaluate daily - holding vecuronium drip, lasix drip dc'd switched to 40 BID lasix pushes - s/p Plaquenil, convalescent plasma, and Actemra CARDIO #hypotension - off pressors - CTM VS ID #fungemia - yeast present in blood and sputum cultures - continue caspofungin started 07/13 - Dr. Bravo following #bacteremia with +MRSA/E. coli - continue vancomycin, rpt blood culture sent given it has been 48 hrs since prior, will follow up - s/p ryan, casopofungin FEN #diet - continue tube feeds Vital 1.2 #hypokalemia - CTM daily K - BID NGT KCl 40mEq while on Lasix 40 BID IVP - aldactone started by renal #electrolytes - replete PRN PPX #DVT - Full Dose Lovenox #stress ulcer - Protonix 40mg QD LTD - ETT replaced 07/17 - LSC TLC placed 07/17 removed today - R radial A-line placed 07/17 DISPO - ICU - Full Code Visit type - Emergency Visit Emergency Visit: Yes ED Registration Date: 06/22/19 Care time: The patient presented to the Emergency Department on the above date and was hospitalized for further evaluation of their emergent condition. - New Patient This patient is new to me today: Yes Date on this admission: 07/31/19 - Critical Care Critical Care patient: Yes Total Critical Care Time (in minutes): 35 Critical Care Statement: The care of this patient involved high complexity decision making to prevent further life threatening deterioration of the patient's condition and/or to evaluate & treat vital organ system(s) failure or risk of failure. - Discharge Referral Referred to [facility] No ATTENDING PHYSICIAN STATEMENT I saw and evaluated the patient. I reviewed the resident's note and discussed the case with the resident. I agree with the resident's findings and plan as documented. SUBJECTIVE: OBJECTIVE: ASSESSMENT AND PLAN:
--- NOTE | 2019-07-31 14:22 | PN ---
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 (short form) - Note 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: remains intubated recultured sedation d/nhung Vital Signs Period Temp Pulse Resp BP Sys/Ortiz Pulse Ox Last 24 Hr 97.3 F-98.8 F 94-114 35-35 105-145/56-74 94-98 cor-rrr lungs tachycardic abd soft,nt ext no edema +anthony CBC, BMP 07/31/19 05:50 07/31/19 05:50 Microbiology 07/29/19 11:46 Blood - Peripheral Venous Blood Culture - Preliminary NO GROWTH OBTAINED AFTER 48 HOURS, INCUBATION TO CONTINUE FOR 3 DAYS. 07/29/19 11:18 Blood - Central Line Blood Culture - Preliminary NO GROWTH OBTAINED AFTER 48 HOURS, INCUBATION TO CONTINUE FOR 3 DAYS. 07/29/19 11:18 Urine - Urine Anthony Urine Culture - Final NO GROWTH OBTAINED 07/12/19 11:04 Blood - Peripheral Venous Yeast/Fungus Identification - Final Janis Lusitaniae 07/18/19 21:10 Blood - Peripheral Venous Blood Culture - Final NO GROWTH AFTER 5 DAYS INCUBATION 07/18/19 18:30 Blood - Peripheral Venous Blood Culture - Final NO GROWTH AFTER 5 DAYS INCUBATION 07/15/19 12:25 Blood - Peripheral Venous Blood Culture - Final NO GROWTH AFTER 5 DAYS INCUBATION 07/16/19 15:15 Blood - Peripheral Venous Blood Culture - Final Staphylococcus Epidermidis 07/14/19 11:30 Blood - Peripheral Venous Blood Culture - Final NO GROWTH AFTER 5 DAYS INCUBATION 07/16/19 15:05 Blood - Peripheral Venous Blood Culture - Final Staphylococcus Epidermidis 07/16/19 12:30 Sputum - Endotrachea Suction/Ventilator Gram Stain - Final 07/16/19 12:30 Sputum - Endotrachea Suction/Ventilator Sputum Culture - Final Mr S Aureus Escherichia Coli 07/12/19 10:55 Blood - Peripheral Venous Blood Culture - Final NO GROWTH AFTER 5 DAYS INCUBATION 07/16/19 12:30 Urine - Urine - Catheterized Urine Culture - Final NO GROWTH OBTAINED 07/12/19 06:00 Sputum - Endotrachea Suction/Ventilator Gram Stain - Final 07/12/19 06:00 Sputum - Endotrachea Suction/Ventilator Sputum Culture - Final 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 Mr S Aureus 07/12/19 11:04 Blood - Peripheral Venous Blood Culture - Final 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 07/01/19 18:15 Blood - Peripheral Venous Blood Culture - Final NO GROWTH AFTER 5 DAYS INCUBATION 06/29/19 12:30 Blood - Peripheral Venous Blood Culture - Final Staphylococcus Epidermidis 06/30/19 17:15 Sputum - Endotrachea Suction/Ventilator Gram Stain - Final 06/30/19 17:15 Sputum - Endotrachea Suction/Ventilator Sputum Culture - Final Escherichia Coli [employer] 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 06/28/19 09:00 Blood - Peripheral Venous Blood Culture - Final Staphylococcus Epidermidis 06/28/19 12:50 Sputum - Endotrachea Suction/Ventilator Gram Stain - Final 06/28/19 12:50 Sputum - Endotrachea Suction/Ventilator Sputum Culture - Final 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 Staphylococcus Aureus 06/25/19 13:40 Blood - Peripheral Venous Blood Culture - Final NO GROWTH AFTER 5 DAYS INCUBATION 06/25/19 13:20 Blood - Peripheral Venous Blood Culture - Final NO GROWTH AFTER 5 DAYS INCUBATION 06/28/19 12:51 Urine - Urine Anthony Urine Culture - Final NO GROWTH OBTAINED 06/22/19 13:00 Blood - Peripheral Venous Blood Culture - Final Staphylococcus Warneri 06/22/19 13:00 Blood - Peripheral Venous Blood Culture - Final Staphylococcus Epidermidis 06/24/19 00:01 Urine - Urine Anthony Urine Culture - Final NO GROWTH OBTAINED 06/24/19 00:01 Urine For Antigen Detection Legionella Antigen - Final 06/24/19 00:01 Urine For Antigen Detection Streptococcus pneumoniae Antigen (M - Final cxray unchanged vanco trough 14.9 covid pcr negative (repeat) quantiferon negative imp/reccd ARDS/pneumonia- bacteremia- recurrent staph epi bacteremia- ?endocarditis- echo unrevealing- continue vancomycin, day #15-plan 6 weeks repeat blood cultures negative repeat vancomycin trough 14/9 fungemia- janis lusitanae- has completed 14 days cancidas- covid 19 positive -repeat pcr negative s/p convalescent plasma s/p tocilizumab MRSA isolation for positive sputum culture- esbl isolation for prior sputum ecoli esbl overall prognosis is guarded Problem List - Problems (1) Suspected COVID-19 virus infection Code(s): R68.89 - OTHER GENERAL SYMPTOMS AND SIGNS (2) Acute respiratory failure with hypoxia Code(s): J96.01 - ACUTE RESPIRATORY FAILURE WITH HYPOXIA (3) Bacteremia Code(s): R78.81 - BACTEREMIA
[2019-07-31] MEDS: FUROSEMIDE 40 MG/5 ML UNIT-DOSE CUP GT SCH (15:00)
[2019-07-31] MEDS: AMINO ACIDS/PROTEIN HYDROLYS 30 ML LIQUID.PKT GT SCH (17:11)
[2019-07-31] MEDS: ACETAMINOPHEN 650 MG/20.3 ML ORAL SOLUTION (CUPS) GT PRN (18:04)
[2019-07-31] MEDS ORDERED: ACETAMINOPHEN 325 MG TABLET (FP) PO PRN (18:04)
--- NOTE | 2019-07-31 18:13 | PN ---
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, Physician History of Present Illness: Pt seen and examined at bedside. He remains in the ICU. - Current Medication List Current Medications: Active Medications Acetaminophen (Tylenol Oral Solution -) 650 mg GT Q6H PRN PRN Reason: FEVER Last Admin: 07/31/19 18:04 Dose: 650 mg Documented by: Amino Acids (Prosource No Carb Liquid Pkt) 30 ml GT BID@0800,1730 [facility] Last Admin: 07/31/19 17:11 Dose: 30 ml Documented by: Artificial Tears (Artificial Tears) 1 drop OU BID PRN PRN Reason: DRY EYES Last Admin: 07/27/19 21:21 Dose: 1 drop Documented by: Ascorbic Acid (Vitamin C Oral Solution -) 500 mg GT DAILY [facility] Chlorhexidine Gluconate (Hibiclens For Decolonization -) 1 applic TP HS [facility] Last Admin: 07/30/19 22:37 Dose: 1 applic Documented by: Cholecalciferol (Vitamin D3 -) 800 unit NR DAILY [facility] Famotidine (Pepcid) 40 mg NR DAILY [facility] Furosemide (Lasix Oral Solution -) 40 mg GT BID@0600,1400 [facility] Last Admin: 07/31/19 15:00 Dose: 40 mg Documented by: IV Flush (Triple Lumen Flush) 4 ml IVPUSH PRN PRN PRN Reason: Protocol Vecuronium [place] (Vecuronium [place]) 100 mg in 100 mls @ 5.226 mls/hr IVPB TITR [facility]; Protocol Last Titration: 07/31/19 17:11 Dose: 1 mcg/kg/min, 5.226 mls/hr Documented by: Vancomycin HCl 1,500 mg/ (Dextrose) 500 mls @ 250 mls/hr IVPB Q12H [facility]; Protocol Last Admin: 07/31/19 13:31 Dose: 250 mls/hr Documented by: Propofol (Diprivan -) 1,000,000 mcg in 100 mls @ 2.531 mls/hr IVPB TITR [facility]; Protocol Last Titration: 07/31/19 16:06 Dose: 25 mcg/kg/min, 12.655 mls/hr Documented by: Morphine Sulfate (Morphine 100mg/100ml-0.9% Nacl) 100 mg in 100 mls @ 1 mls/hr IVPB TITR [facility]; Protocol Last Admin: 07/31/19 14:00 Dose: 5 mg/hr, 5 mls/hr Documented by: Lacosamide (Vimpat Injection -) 200 mg IVPB BID [facility]I Levetiracetam (Levetiracetam Oral Suspension) 1,000 mg GT BID T[facility]I Phenobarbital (Phenobarbital Liquid -) 60 mg GT BID T[facility]I Last Admin: 07/31/19 09:30 Dose: 60 mg Documented by: Polyethylene Glycol (Miralax (For Daily Use) -) 17 gm GT BID TIKI Potassium Chloride (Potassium Chloride Oral Liquid) 40 meq GT BID TIKI Spironolactone (Aldactone -) 100 mg GT DAILY [facility] Topiramate (Topamax -) 200 mg GT TID [facility] Last Admin: 07/31/19 13:30 Dose: 200 mg Documented by: Zinc Sulfate (Orazinc -) 220 mg GT BID [facility] - Objective Vital Signs: Vital Signs Temperature 100.4 F H 07/31/19 17:31 Pulse Rate 131 H 07/31/19 17:31 Respiratory Rate 39 H 07/31/19 17:31 Blood Pressure 149/79 07/31/19 16:00 O2 Sat by Pulse Oximetry (%) 95 07/31/19 15:55 Constitutional: Yes: Calm Eyes: Yes: Conjunctiva Clear HENT: Yes: Atraumatic Cardiovascular: Yes: S1, S2 Respiratory: Yes: Mechanically Ventilated Gastrointestinal: Yes: Soft Genitourinary: Yes: Caceres Present Musculoskeletal: Yes: WNL Edema: Yes Neurological: Yes: Lethargy Labs: CBC, BMP 07/31/19 05:50 07/31/19 05:50 INR, PTT INR 1.01 (0.83-1.09) 07/28/19 05:00 Problem List - Problems (1) Hypernatremia Code(s): E87.0 - HYPEROSMOLALITY AND HYPERNATREMIA (2) Hypokalemia Code(s): E87.6 - HYPOKALEMIA (3) Acute respiratory failure with hypoxia Code(s): J96.01 - ACUTE RESPIRATORY FAILURE WITH HYPOXIA (4) Bacteremia Code(s): R78.81 - BACTEREMIA Assessment/Plan Current Medications Generic Name Dose Route Start Last Admin Trade Name Freq PRN Reason Stop Dose Admin Acetaminophen 650 mg 07/31/19 11:33 07/31/19 18:04 Tylenol Oral Solution - GT 650 mg Q6H PRN Administration FEVER Amino Acids 30 ml 07/31/19 11:33 07/31/19 17:11 Prosource No Carb Liquid Pkt GT 30 ml BID@0800,1730 TIKI Administration Artificial Tears 1 drop 07/27/19 09:32 07/27/19 21:21 Artificial Tears OU 1 drop BID PRN Administration DRY EYES Ascorbic Acid 500 mg 07/31/19 11:35 Vitamin C Oral Solution - GT DAILY [facility] Chlorhexidine Gluconate 1 applic 06/22/19 22:00 07/30/19 22:37 Hibiclens For Decolonization - TP 1 applic HS TIKI Administration Cholecalciferol 800 unit 07/31/19 11:35 Vitamin D3 - NR DAILY [facility] Famotidine 40 mg 07/31/19 11:53 Pepcid NR DAILY [facility] Furosemide 40 mg 07/31/19 14:00 07/31/19 15:00 Lasix Oral Solution - GT 40 mg BID@0600,1400 TIKI Administration IV Flush 4 ml 07/18/19 18:26 Triple Lumen Flush IVPUSH PRN PRN Protocol Vecuronium [place] 100 mg in 100 mls @ 5.226 mls/hr 07/17/19 11:15 07/31/19 17:11 Vecuronium [place] IVPB 1 mcg/kg/min TITR TIKI 5.226 mls/hr Titration Protocol 1 MCG/KG/MIN Vancomycin HCl 1,500 mg/ 500 mls @ 250 mls/hr 07/21/19 02:00 07/31/19 13:31 Dextrose IVPB 250 mls/hr Q12H TIKI Administration Protocol Propofol 1,000,000 mcg in 100 mls @ 2.531 mls/hr 07/31/19 14:00 07/31/19 16:06 Diprivan - IVPB 25 mcg/kg/min TITR T[facility] 12.655 mls/hr Titration Protocol 5 MCG/KG/MIN Morphine Sulfate 100 mg in 100 mls @ 1 mls/hr 07/31/19 14:00 07/31/19 14:00 Morphine 100mg/100ml-0.9% Nacl IVPB 5 mg/hr TITR TIKI 5 mls/hr Administration Protocol 1 MG/HR Lacosamide 200 mg 07/31/19 11:52 Vimpat Injection - IVPB BID [facility] Levetiracetam 1,000 mg 07/31/19 11:51 Levetiracetam Oral Suspension GT BID [facility] Phenobarbital 60 mg 06/28/19 10:00 07/31/19 09:30 Phenobarbital Liquid - GT 60 mg BID TIKI Administration Polyethylene Glycol 17 gm 07/31/19 11:56 Miralax (For Daily Use) - GT BID [facility] Potassium Chloride 40 meq 07/31/19 11:56 Potassium Chloride Oral Liquid GT BID [facility] Spironolactone 100 mg 07/31/19 11:57 Aldactone - GT DAILY [facility] Topiramate 200 mg 07/31/19 11:58 07/31/19 13:30 Topamax - GT 200 mg TID TIKI Administration Zinc Sulfate 220 mg 07/31/19 12:13 Orazinc - GT BID [facility] Impression 1. hypokalemia 2. hypernatremia 3. resp failure 4. fungemia 5. covid 19 infection 6. ards 7. developemental delay 8. epilepsy 9. bactermia 10. resp acidosis with compensatory met alk Plan - cont bolus doses lasix - cont aldactone - replace potassium - monitor input/output - keep negative - vent support
[2019-07-31 20:03] LABS: ALLENS TEST POSITIVE; ARTERIAL BLOOD GAS BASE EXCESS 11.6 mmol/L (-2-2); ARTERIAL BLOOD GAS PO2 84.4 mmHg (80-100)
--- NOTE | 2019-07-31 20:17 | PN ---
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 (short form) - Note 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: UPDATE: Repeat ABG 7.3/87/139. Decrease O2 as tolerated and maintain current settings. Paralytic remains for now. ------ Pt notably acidemic with respiratory acidosis on AC mode control: 35/280/70%/5 Ppl 31 Vte ~9-10L. Paralytic in effect at this point with satisfactory vent synchrony. Will repeat ABG in 1-2 hrs and pending worsening acidosis will have to increase TV to 5cc/kg Benigno Palmer, DO - IM PGY-3
[2019-07-31 20:29] LABS: ARTERIAL BLOOD GAS PCO2 > 100.0 mmHg (35-45)
[2019-07-31] MEDS: POTASSIUM CHLORIDE ORAL LIQUID 20 MEQ/15 ML GT SCH (21:27)
[2019-07-31] MEDS: levETIRAcetam 500 MG/5 ML ORAL SOLUTION BULK GT SCH (21:28)
[2019-07-31] MEDS: CHLORHEXIDINE GLUCONATE 4% CLEANSER FOR DECOLONIZATION TP SCH (21:29)
[2019-07-31] MEDS: POLYETHYLENE GLYCOL 3350 119 GM BTL GT SCH (21:30)
[2019-07-31] MEDS: ZINC SULFATE 220 MG CAPSULE (FP) GT SCH (21:30)
[2019-07-31 23:43] LABS: ARTERIAL BLOOD GAS PO2 139.2 mmHg (80-100)
[2019-07-31 23:44] LABS: ARTERIAL BLD GAS O2 SATURATION 98.3 % (95-98); ARTERIAL BLOOD GAS BASE EXCESS 12.3 mmol/L (-2-2)
[2019-07-31 23:46] LABS: ARTERIAL BLOOD GAS PCO2 87.3 mmHg (35-45)
[2019-08-01] MEDS: PROPOFOL 1,000,000 MCG/100 ML VIAL IVPB SCH ×3 (01:00→16:59)
[2019-08-01] MEDS: VANCOMYCIN HCL 1,500 MG in DEXTROSE 5%-WATER - 500 ML IVPB SCH ×2 (01:01→13:01)
[2019-08-01] MEDS: ACETAMINOPHEN 650 MG/20.3 ML ORAL SOLUTION (CUPS) GT PRN ×2 (05:36→23:31)
[2019-08-01] MEDS: TOPIRAMATE 200 MG TABLET GT SCH ×3 (05:37→21:54)
[2019-08-01] MEDS: FUROSEMIDE 40 MG/5 ML UNIT-DOSE CUP GT SCH ×2 (05:37→13:00)
[2019-08-01] MEDS: VECURONIUM BROMIDE 100 MG/100 ML BAG IVPB SCH (05:53)
[2019-08-01 06:54] LABS: BASO % 0.4 % (0-2.0); EOS % 0.6 % (0-4.5); HEMATOCRIT 26.7 % (35.4-49); HEMOGLOBIN 8.6 GM/dL (11.7-16.9); LYMPH % 11.1 % (8-40); MCH 30.2 pg (25.7-33.7); MCHC 32.3 g/dl (32.0-35.9); MEAN CELL VOLUME 93.7 fl (80-96); MONO % 11.4 % (3.8-10.2); NEUT % 76.5 % (42.8-82.8); PLATELET COUNT 460 K/MM3 (134-434); RBC 2.85 M/mm3 (4.00-5.60); WHITE BLOOD COUNT 14.7 K/mm3 (4.0-10.0)
[2019-08-01 07:01] LABS: ALBUMIN 2.1 g/dl (3.4-5.0); BILIRUBIN,TOTAL 0.1 mg/dL (0.2-1); BLOOD UREA NITROGEN 12.4 mg/dL (7-18); CALCIUM 8.9 mg/dL (8.5-10.1); CREATININE 0.2 mg/dL (0.55-1.3); POTASSIUM 3.5 mmol/L (3.5-5.1); TOT PROT 5.6 g/dl (6.4-8.2)
[2019-08-01] MEDS ORDERED: PT OWN MED DRAWER 7, Y5N ONE ×6 (07:18→23:25)
[2019-08-01] MEDS: AMINO ACIDS/PROTEIN HYDROLYS 30 ML LIQUID.PKT GT SCH ×2 (08:21→16:59)
[2019-08-01] MEDS: PHENobarbital 20 MG/5 ML UNIT-DOSE CUP GT SCH (09:10)
[2019-08-01] MEDS: SPIRONOLACTONE 25 MG TABLET GT SCH (09:10)
[2019-08-01] MEDS: POTASSIUM CHLORIDE ORAL LIQUID 20 MEQ/15 ML GT SCH ×2 (09:14→21:55)
[2019-08-01] MEDS: ZINC SULFATE 220 MG CAPSULE (FP) GT SCH ×2 (09:17→21:54)
[2019-08-01] MEDS: levETIRAcetam 500 MG/5 ML ORAL SOLUTION BULK GT SCH ×2 (09:19→21:54)
[2019-08-01] MEDS: FAMOTIDINE 40 MG/5 ML ORAL SUSPENSION NR SCH (09:20)
--- NOTE | 2019-08-01 09:20 | PN ---
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 (short form) - Note 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: Pulm/CCM SUBJECTIVE: Pt seen and examined in the ICU. 24Hr: -minor vent adjustments overnight -remains on NMB due to vent dyschrony and difficulty ventilating OBJECTIVE: Vital Signs Temp 98.1 F 08/01/19 08:00 Pulse 107 H 08/01/19 08:53 Resp 38 H 08/01/19 08:53 BP 127/68 08/01/19 08:00 Pulse Ox 100 08/01/19 08:53 Intake & Output 07/31/19 07/31/19 08/01/19 11:59 23:59 11:59 Intake Total 1810.4 1506 1612 Output Total 2500 1750 900 Balance -689.6 -244 712 Weight 84.368 kg 85.502 kg Intake: IV 356.4 995 372 DIPRIVAN - 1,000,000 mcg 108 61 In 100 ml @ 5 MCG/KG/MIN 2.313 mls/hr IVPB TITR [facility] Rx#:[id number] DIPRIVAN - 1,000,000 mcg 180 In 100 ml @ 5 MCG/KG/MIN 2.531 mls/hr IVPB TITR [facility] Rx#:[id number] Lasix Injection - 100 mg 120 51 60 In D5w - 90 ml @ 10 MG/HR 10 mls/hr IVPB TITR [facility] Rx#:[id number] MORPHINE 100MG/100ML-0.9% 60 34 NACL 100 mg In 100 ml @ 1 MG/HR 1 mls/hr IVPB TITR [facility] Rx#:[id number] MORPHINE 100MG/100ML-0.9% 60 NACL 100 mg In 100 ml @ 1 MG/HR 1 mls/hr IVPB TITR [facility] Rx#:[id number] VECURONIUM BROMIDE 100 mg 68.4 20 72 In 100 ml @ 1 MCG/KG/MIN 5.226 mls/hr IVPB TITR [facility] Rx#:[id number] ivf 829 IVPB 700 600 Tube Feeding 504 451 540 Tube Irrigant 250 60 100 Output: Urine 2500 1750 900 Caceres 2500 1750 900 Other: Voiding Method Indwelling Catheter Indwelling Catheter Indwelling Catheter Bowel Movement No Gen: intubated, sedated, reparalyzed Heart: RRR Lung: bilateral rhonchi, trace secretions Abd: soft, nontender Ext:trace + edema ABG Results ABG pH 7.30 (7.35-7.45) L 07/31/19 23:25 ABG pCO2 at Pt Temp 87.3 mmHg (35-45) H* 07/31/19 23:25 ABG pO2 at Pt Temp 139.2 mmHg (80-100) H 07/31/19 23:25 ABG HCO3 41.6 mmol/L (22-27) H 07/31/19 23:25 ABG O2 Sat (Measured) 98.3 % (95-98) H 07/31/19 23:25 ABG O2 Content No Result Required. 07/31/19 23:25 ABG Base Excess 12.3 mmol/L (-2-2) H 07/31/19 23:25 CBC, BMP 08/01/19 06:00 08/01/19 06:00 Microbiology 07/29/19 11:46 Blood - Peripheral Venous Blood Culture - Preliminary NO GROWTH OBTAINED AFTER 48 HOURS, INCUBATION TO CONTINUE FOR 3 DAYS. 07/29/19 11:18 Blood - Central Line Blood Culture - Preliminary NO GROWTH OBTAINED AFTER 48 HOURS, INCUBATION TO CONTINUE FOR 3 DAYS. 07/29/19 11:18 Urine - Urine Caceres Urine Culture - Final NO GROWTH OBTAINED 07/12/19 11:04 Blood - Peripheral Venous Yeast/Fungus Identification - Final Janis Lusitaniae 07/18/19 21:10 Blood - Peripheral Venous Blood Culture - Final NO GROWTH AFTER 5 DAYS INCUBATION 07/18/19 18:30 Blood - Peripheral Venous Blood Culture - Final NO GROWTH AFTER 5 DAYS INCUBATION 07/15/19 12:25 Blood - Peripheral Venous Blood Culture - Final NO GROWTH AFTER 5 DAYS INCUBATION 07/16/19 15:15 Blood - Peripheral Venous Blood Culture - Final Staphylococcus Epidermidis 07/14/19 11:30 Blood - Peripheral Venous Blood Culture - Final NO GROWTH AFTER 5 DAYS INCUBATION 07/16/19 15:05 Blood - Peripheral Venous Blood Culture - Final Staphylococcus Epidermidis 07/16/19 12:30 Sputum - Endotrachea Suction/Ventilator Gram Stain - Final 07/16/19 12:30 Sputum - Endotrachea Suction/Ventilator Sputum Culture - Final Mr S Aureus Escherichia Coli 07/12/19 10:55 Blood - Peripheral Venous Blood Culture - Final NO GROWTH AFTER 5 DAYS INCUBATION 07/16/19 12:30 Urine - Urine - Catheterized Urine Culture - Final NO GROWTH OBTAINED 07/12/19 06:00 Sputum - Endotrachea Suction/Ventilator Gram Stain - Final 07/12/19 06:00 Sputum - Endotrachea Suction/Ventilator Sputum Culture - Final 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 Mr S Aureus 07/12/19 11:04 Blood - Peripheral Venous Blood Culture - Final 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 07/01/19 18:15 Blood - Peripheral Venous Blood Culture - Final NO GROWTH AFTER 5 DAYS INCUBATION 06/29/19 12:30 Blood - Peripheral Venous Blood Culture - Final Staphylococcus Epidermidis 06/30/19 17:15 Sputum - Endotrachea Suction/Ventilator Gram Stain - Final 06/30/19 17:15 Sputum - Endotrachea Suction/Ventilator Sputum Culture - Final Escherichia Coli Esbl [facility] [employer] 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 06/28/19 09:00 Blood - Peripheral Venous Blood Culture - Final Staphylococcus Epidermidis 06/28/19 12:50 Sputum - Endotrachea Suction/Ventilator Gram Stain - Final 06/28/19 12:50 Sputum - Endotrachea Suction/Ventilator Sputum Culture - Final 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 Staphylococcus Aureus 06/25/19 13:40 Blood - Peripheral Venous Blood Culture - Final NO GROWTH AFTER 5 DAYS INCUBATION 06/25/19 13:20 Blood - Peripheral Venous Blood Culture - Final NO GROWTH AFTER 5 DAYS INCUBATION 06/28/19 12:51 Urine - Urine Caceres Urine Culture - Final NO GROWTH OBTAINED 06/22/19 13:00 Blood - Peripheral Venous Blood Culture - Final Staphylococcus Warneri 06/22/19 13:00 Blood - Peripheral Venous Blood Culture - Final Staphylococcus Epidermidis 06/24/19 00:01 Urine - Urine Caceres Urine Culture - Final NO GROWTH OBTAINED 06/24/19 00:01 Urine For Antigen Detection Legionella Antigen - Final 06/24/19 00:01 Urine For Antigen Detection Streptococcus pneumoniae Antigen (M - Final Active Medications Acetaminophen (Tylenol Oral Solution -) 650 mg GT Q6H PRN PRN Reason: FEVER Last Admin: 08/01/19 05:36 Dose: 650 mg Documented by: Amino Acids (Prosource No Carb Liquid Pkt) 30 ml GT BID@0800,1730 [facility] Last Admin: 08/01/19 08:21 Dose: 30 ml Documented by: Artificial Tears (Artificial Tears) 1 drop OU BID PRN PRN Reason: DRY EYES Last Admin: 07/27/19 21:21 Dose: 1 drop Documented by: Ascorbic Acid (Vitamin C Oral Solution -) 500 mg GT DAILY [facility] Chlorhexidine Gluconate (Hibiclens For Decolonization -) 1 applic TP HS [facility] Last Admin: 07/31/19 21:29 Dose: 1 applic Documented by: Cholecalciferol (Vitamin D3 -) 800 unit NR DAILY [facility] Famotidine (Pepcid) 40 mg NR DAILY [facility] Furosemide (Lasix Oral Solution -) 40 mg GT BID@0600,1400 [facility] Last Admin: 08/01/19 05:37 Dose: 40 mg Documented by: IV Flush (Triple Lumen Flush) 4 ml IVPUSH PRN PRN PRN Reason: Protocol Vecuronium [place] (Vecuronium [place]) 100 mg in 100 mls @ 5.226 mls/hr IVPB TITR [facility]; Protocol Last Admin: 08/01/19 05:53 Dose: 1 mcg/kg/min, 5.226 mls/hr Documented by: Vancomycin HCl 1,500 mg/ (Dextrose) 500 mls @ 250 mls/hr IVPB Q12H [facility]; Protocol Last Admin: 08/01/19 01:01 Dose: 250 mls/hr Documented by: Propofol (Diprivan -) 1,000,000 mcg in 100 mls @ 2.531 mls/hr IVPB TITR [facility]; Protocol Last Titration: 08/01/19 01:00 Dose: 30 mcg/kg/min, 15.186 mls/hr Documented by: Morphine Sulfate (Morphine 100mg/100ml-0.9% Nacl) 100 mg in 100 mls @ 1 mls/hr IVPB TITR [facility]; Protocol Last Infusion: 07/31/19 22:00 Dose: 6 mg/hr, 6 mls/hr Documented by: Lacosamide (Vimpat Injection -) 200 mg IVPB BID [facility] Last Admin: 07/31/19 21:30 Dose: 200 mg Documented by: Levetiracetam (Levetiracetam Oral Suspension) 1,000 mg GT BID [facility] Last Admin: 07/31/19 21:28 Dose: 1,000 mg Documented by: Phenobarbital (Phenobarbital Liquid -) 60 mg GT BID [facility] Last Admin: 08/01/19 09:10 Dose: 60 mg Documented by: Polyethylene Glycol (Miralax (For Daily Use) -) 17 gm GT BID [facility] Last Admin: 07/31/19 21:30 Dose: 17 gm Documented by: Potassium Chloride (Potassium Chloride Oral Liquid) 40 meq GT BID [facility] Last Admin: 08/01/19 09:14 Dose: 40 meq Documented by: Spironolactone (Aldactone -) 100 mg GT DAILY [facility] Last Admin: 08/01/19 09:10 Dose: 100 mg Documented by: Topiramate (Topamax -) 200 mg GT TID [facility] Last Admin: 08/01/19 05:37 Dose: 200 mg Documented by: Zinc Sulfate (Orazinc -) 220 mg GT BID [facility] Last Admin: 08/01/19 09:17 Dose: 220 mg Documented by: ASSESSMENT AND PLAN: Acute Hypoxic and Hypercapneic Respiratory Failure COVID19 Pneumonia E Coli Pneumonia Fungenmia Bacteremia Septic Shock Seizure Disorder Mental Retardation - continue antibiotics, antifungals per ID - continue antiepileptics - lasix for O>I - monitor urine output, creatinine - low tidal volume ventilation, may need to liberate despite airway pressures - titrate FiO2, PEEP to keep SpO2 >90% - enteral feeds - DVT/GI prophylaxis - continue ICU monitoring - for tracheostomy next week if unable to wean further Karley ACNP critical care time spent in reviewing chart, evaluating patient and formulating plan 35 min
[2019-08-01] MEDS: CHOLECALCIFEROL (VIT D3) 400 UNIT (10 MCG) TABLET NR SCH (09:23)
[2019-08-01] MEDS: Lacosamide 200 MG/20 ML VIAL IVPB SCH ×2 (09:23→23:23)
[2019-08-01] MEDS: ASCORBIC ACID 500 MG/5 ML UNIT DOSE CUP GT SCH (09:23)
[2019-08-01] MEDS: POLYETHYLENE GLYCOL 3350 119 GM BTL GT SCH ×3 (10:57→21:55)
--- NOTE | 2019-08-01 11:14 | PN ---
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 (short form) - Note 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: remains intubated recurrent fevers Vital Signs Period Temp Pulse Resp BP Sys/Ortzi Pulse Ox Last 24 Hr 97.4 F-101.9 F 98-141 32-39 112-149/49-79 94-100 cor-rrr lungs decreased bs at bases abd soft,nt ext no edema anthony CBC, BMP 08/01/19 06:00 08/01/19 06:00 Microbiology 07/29/19 11:46 Blood - Peripheral Venous Blood Culture - Preliminary NO GROWTH OBTAINED AFTER 48 HOURS, INCUBATION TO CONTINUE FOR 3 DAYS. 07/29/19 11:18 Blood - Central Line Blood Culture - Preliminary NO GROWTH OBTAINED AFTER 48 HOURS, INCUBATION TO CONTINUE FOR 3 DAYS. cxray unchanged vanco trough 14.9 covid pcr negative (repeat) quantiferon negative imp/reccd recurrent fevers-rising wbc repeat cultures sent repeat sputum culture add cefepime repeat cxray to consider ct scan chest /abd/pelvis for recurrent fevers, head ct too- ?sinus itis ARDS/pneumonia- bacteremia- recurrent staph epi bacteremia- ?endocarditis- echo unrevealing- continue vancomycin, day #16-plan 6 weeks repeat blood cultures negative, vanco trough acceptable fungemia- quita lusitanae- has completed 14 days cancidas- repeat cultures negative covid 19 positive -repeat pcr negative s/p convalescent plasma s/p tocilizumab MRSA isolation for positive sputum culture- esbl isolation for prior sputum ecoli esbl overall prognosis is guarded over 35min spent in the care of this critically ill icu patient Problem List - Problems (1) Suspected COVID-19 virus infection Code(s): R68.89 - OTHER GENERAL SYMPTOMS AND SIGNS (2) Acute respiratory failure with hypoxia Code(s): J96.01 - ACUTE RESPIRATORY FAILURE WITH HYPOXIA (3) Bacteremia Code(s): R78.81 - BACTEREMIA
[2019-08-01] MEDS ORDERED: PIPERACILLIN/TAZOB 4.5 GM 4.5 GM in DEXTROSE 5%-WATER 100 ML IVPB SCH (11:15)
[2019-08-01] MEDS ORDERED: CEFEPIME HCL/D5W 2 GM/50 ML BAG IVPB SCH (11:30)
[2019-08-01] MEDS: CEFEPIME 2 GM in DEXTROSE 5%-WATER 100 ML IVPB SCH ×2 (12:59→17:09)
[2019-08-01] MEDS: MORPHINE SULFATE/0.9% NACL/PF 100 MG/100 ML BAG IVPB SCH (14:47)
--- NOTE | 2019-08-01 16:47 | PN ---
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, Physician History of Present Illness: Pt seen and examined at bedside. He remains intubated in the ICU. - Current Medication List Current Medications: Active Medications Acetaminophen (Tylenol Oral Solution -) 650 mg GT Q6H PRN PRN Reason: FEVER Last Admin: 08/01/19 05:36 Dose: 650 mg Documented by: Amino Acids (Prosource No Carb Liquid Pkt) 30 ml GT BID@0800,1730 [facility] Last Admin: 08/01/19 08:21 Dose: 30 ml Documented by: Artificial Tears (Artificial Tears) 1 drop OU BID PRN PRN Reason: DRY EYES Last Admin: 07/27/19 21:21 Dose: 1 drop Documented by: Ascorbic Acid (Vitamin C Oral Solution -) 500 mg GT DAILY [facility] Last Admin: 08/01/19 09:23 Dose: 500 mg Documented by: Chlorhexidine Gluconate (Hibiclens For Decolonization -) 1 applic TP HS [facility] Last Admin: 07/31/19 21:29 Dose: 1 applic Documented by: Cholecalciferol (Vitamin D3 -) 800 unit NR DAILY [facility] Last Admin: 08/01/19 09:23 Dose: 800 unit Documented by: Famotidine (Pepcid) 40 mg NR DAILY [facility] Last Admin: 08/01/19 09:20 Dose: 40 mg Documented by: Furosemide (Lasix Oral Solution -) 40 mg GT BID@0600,1400 [facility] Last Admin: 08/01/19 13:00 Dose: 40 mg Documented by: IV Flush (Triple Lumen Flush) 4 ml IVPUSH PRN PRN PRN Reason: Protocol Vecuronium [place] (Vecuronium [place]) 100 mg in 100 mls @ 5.226 mls/hr IVPB TITR [facility]; Protocol Last Admin: 08/01/19 05:53 Dose: 1 mcg/kg/min, 5.226 mls/hr Documented by: Vancomycin HCl 1,500 mg/ (Dextrose) 500 mls @ 250 mls/hr IVPB Q12H [facility]; Protocol Last Admin: 08/01/19 13:01 Dose: 250 mls/hr Documented by: Propofol (Diprivan -) 1,000,000 mcg in 100 mls @ 2.531 mls/hr IVPB TITR [facility]; Protocol Last Admin: 08/01/19 10:59 Dose: 30 mcg/kg/min, 15.186 mls/hr Documented by: Morphine Sulfate (Morphine 100mg/100ml-0.9% Nacl) 100 mg in 100 mls @ 1 mls/hr IVPB TITR [facility]; Protocol Last Admin: 08/01/19 14:47 Dose: 6 mg/hr, 6 mls/hr Documented by: Cefepime HCl 2 gm/ Dextrose 100 mls @ 200 mls/hr IVPB Q8H-IV [facility]; Protocol Last Admin: 08/01/19 12:59 Dose: 200 mls/hr Documented by: Lacosamide (Vimpat Injection -) 200 mg IVPB BID [facility] Last Admin: 08/01/19 09:23 Dose: 200 mg Documented by: Levetiracetam (Levetiracetam Oral Suspension) 1,000 mg GT BID [facility] Last Admin: 08/01/19 09:19 Dose: 1,000 mg Documented by: Phenobarbital (Phenobarbital Liquid -) 60 mg GT BID [facility] Last Admin: 08/01/19 09:10 Dose: 60 mg Documented by: Polyethylene Glycol (Miralax (For Daily Use) -) 17 gm GT BID [facility] Last Admin: 08/01/19 10:59 Dose: 17 gm Documented by: Potassium Chloride (Potassium Chloride Oral Liquid) 40 meq GT BID [facility] Last Admin: 08/01/19 09:14 Dose: 40 meq Documented by: Spironolactone (Aldactone -) 100 mg GT DAILY [facility] Last Admin: 08/01/19 09:10 Dose: 100 mg Documented by: Topiramate (Topamax -) 200 mg GT TID [facility] Last Admin: 08/01/19 13:00 Dose: 200 mg Documented by: Zinc Sulfate (Orazinc -) 220 mg GT BID [facility] Last Admin: 08/01/19 09:17 Dose: 220 mg Documented by: - Objective Vital Signs: Vital Signs Temperature 97.6 F 08/01/19 14:00 Pulse Rate 112 H 08/01/19 16:00 Respiratory Rate 38 H 08/01/19 16:44 Blood Pressure 102/47 L 08/01/19 16:00 O2 Sat by Pulse Oximetry (%) 100 08/01/19 16:44 Constitutional: Yes: Calm Eyes: Yes: Conjunctiva Clear HENT: Yes: Atraumatic Neck: Yes: Supple Cardiovascular: Yes: S1, S2 Respiratory: Yes: Mechanically Ventilated Gastrointestinal: Yes: Soft Genitourinary: Yes: Caceres Present Edema: No Neurological: Yes: Weakness Labs: CBC, BMP 08/01/19 06:00 08/01/19 06:00 INR, PTT INR 1.01 (0.83-1.09) 07/28/19 05:00 Problem List - Problems (1) Hypernatremia Code(s): E87.0 - HYPEROSMOLALITY AND HYPERNATREMIA (2) Hypokalemia Code(s): E87.6 - HYPOKALEMIA (3) Acute respiratory failure with hypoxia Code(s): J96.01 - ACUTE RESPIRATORY FAILURE WITH HYPOXIA (4) Bacteremia Code(s): R78.81 - BACTEREMIA Assessment/Plan Current Medications Generic Name Dose Route Start Last Admin Trade Name Freq PRN Reason Stop Dose Admin Acetaminophen 650 mg 07/31/19 11:33 08/01/19 05:36 Tylenol Oral Solution - GT 650 mg Q6H PRN Administration FEVER Amino Acids 30 ml 07/31/19 11:33 08/01/19 08:21 Prosource No Carb Liquid Pkt GT 30 ml BID@0800,1730 [facility] Administration Artificial Tears 1 drop 07/27/19 09:32 07/27/19 21:21 Artificial Tears OU 1 drop BID PRN Administration DRY EYES Ascorbic Acid 500 mg 07/31/19 11:35 08/01/19 09:23 Vitamin C Oral Solution - GT 500 mg DAILY [facility] Administration Chlorhexidine Gluconate 1 applic 06/22/19 22:00 07/31/19 21:29 Hibiclens For Decolonization - TP 1 applic HS [facility] Administration Cholecalciferol 800 unit 07/31/19 11:35 08/01/19 09:23 Vitamin D3 - NR 800 unit DAILY [facility] Administration Famotidine 40 mg 07/31/19 11:53 08/01/19 09:20 Pepcid NR 40 mg DAILY [facility] Administration Furosemide 40 mg 07/31/19 14:00 08/01/19 13:00 Lasix Oral Solution - GT 40 mg BID@0600,1400 [facility] Administration IV Flush 4 ml 07/18/19 18:26 Triple Lumen Flush IVPUSH PRN PRN Protocol Vecuronium [place] 100 mg in 100 mls @ 5.226 mls/hr 07/17/19 11:15 08/01/19 05:53 Vecuronium [place] IVPB 1 mcg/kg/min TITR [facility] 5.226 mls/hr Administration Protocol 1 MCG/KG/MIN Vancomycin HCl 1,500 mg/ 500 mls @ 250 mls/hr 07/21/19 02:00 08/01/19 13:01 Dextrose IVPB 250 mls/hr Q12H [facility] Administration Protocol Propofol 1,000,000 mcg in 100 mls @ 2.531 mls/hr 07/31/19 14:00 08/01/19 10:59 Diprivan - IVPB 30 mcg/kg/min TITR [facility] 15.186 mls/hr Administration Protocol 5 MCG/KG/MIN Morphine Sulfate 100 mg in 100 mls @ 1 mls/hr 07/31/19 14:00 08/01/19 14:47 Morphine 100mg/100ml-0.9% Nacl IVPB 6 mg/hr TITR [facility] 6 mls/hr Administration Protocol 1 MG/HR Cefepime HCl 2 gm/ Dextrose 100 mls @ 200 mls/hr 08/01/19 11:45 08/01/19 12:59 IVPB 200 mls/hr Q8H-IV [facility] Administration Protocol Lacosamide 200 mg 07/31/19 11:52 08/01/19 09:23 Vimpat Injection - IVPB 200 mg BID [facility] Administration Levetiracetam 1,000 mg 07/31/19 11:51 08/01/19 09:19 Levetiracetam Oral Suspension GT 1,000 mg BID [facility] Administration Phenobarbital 60 mg 06/28/19 10:00 08/01/19 09:10 Phenobarbital Liquid - GT 60 mg BID [facility] Administration Polyethylene Glycol 17 gm 07/31/19 11:56 08/01/19 10:59 Miralax (For Daily Use) - GT 17 gm BID [facility] Administration Potassium Chloride 40 meq 07/31/19 11:56 08/01/19 09:14 Potassium Chloride Oral Liquid GT 40 meq BID [facility] Administration Spironolactone 100 mg 07/31/19 11:57 08/01/19 09:10 Aldactone - GT 100 mg DAILY [facility] Administration Topiramate 200 mg 07/31/19 11:58 08/01/19 13:00 Topamax - GT 200 mg TID [facility] Administration Zinc Sulfate 220 mg 07/31/19 12:13 08/01/19 09:17 Orazinc - GT 220 mg BID [facility] Administration Impression 1. hypokalemia 2. hypernatremia 3. resp failure 4. fungemia 5. covid 19 infection 6. ards 7. developemental delay 8. epilepsy 9. bactermia 10. resp acidosis with compensatory met alk Plan - potassium stable - cont diuretics - vent support - monitor volume status - monitor input/output
[2019-08-01] MEDS ORDERED: PROPOFOL 1,000,000 MCG/100 ML VIAL ONE (16:58)
[2019-08-01] MEDS ORDERED: MIDAZOLAM HCL 2 MG/2 ML SINGLE DOSE VIAL IVPUSH ONE (21:08)
[2019-08-01] MEDS ORDERED: MIDAZOLAM HCL 2 MG/2 ML SINGLE DOSE VIAL ONE (21:13)
[2019-08-01] MEDS: CHLORHEXIDINE GLUCONATE 4% CLEANSER FOR DECOLONIZATION TP SCH (21:54)
[2019-08-01] MEDS ORDERED: INSULIN (NOVOLOG) ASPART 100 UNITS/ML 10ML VIAL ONE (23:25)
[2019-08-02] MEDS ORDERED: PT OWN MED DRAWER 7, Y5N ONE ×6 (02:36→20:35)
[2019-08-02] MEDS: VANCOMYCIN HCL 1,500 MG in DEXTROSE 5%-WATER - 500 ML IVPB SCH ×2 (02:39→16:49)
[2019-08-02] MEDS: CEFEPIME 2 GM in DEXTROSE 5%-WATER 100 ML IVPB SCH ×3 (02:39→21:34)
[2019-08-02 06:00] LABS: HEMATOCRIT 25.1 % (35.4-49); HEMOGLOBIN 8.3 GM/dL (11.7-16.9); MCH 30.9 pg (25.7-33.7); MCHC 32.9 g/dl (32.0-35.9); MEAN CELL VOLUME 93.9 fl (80-96); MEAN PLT VOLUME 8.1 fl (7.5-11.1); PLATELET COUNT 420 K/MM3 (134-434); RBC 2.68 M/mm3 (4.00-5.60); RDW 18.6 % (11.9-15.9); WHITE BLOOD COUNT 14.9 K/mm3 (4.0-10.0)
[2019-08-02 06:11] LABS: BLOOD UREA NITROGEN 12.3 mg/dL (7-18); CALCIUM 9.1 mg/dL (8.5-10.1); CREATININE 0.2 mg/dL (0.55-1.3); MAGNESIUM 2.1 mg/dL (1.8-2.4); PHOSPHOROUS 4.3 mg/dL (2.5-4.9); POTASSIUM 4.1 mmol/L (3.5-5.1)
[2019-08-02 06:21] LABS: ARTERIAL BLOOD GAS pH 7.33 (7.35-7.45)
[2019-08-02 06:22] LABS: ARTERIAL BLD GAS O2 SATURATION 98.4 % (95-98); ARTERIAL BLOOD GAS PO2 135.7 mmHg (80-100)
[2019-08-02 06:23] LABS: ALLENS TEST POSITIVE
[2019-08-02 06:26] LABS: ARTERIAL BLOOD GAS PCO2 79.6 mmHg (35-45)
[2019-08-02] MEDS: FUROSEMIDE 40 MG/5 ML UNIT-DOSE CUP GT SCH ×2 (06:39→16:48)
[2019-08-02] MEDS: TOPIRAMATE 200 MG TABLET GT SCH ×3 (06:39→21:07)
[2019-08-02] MEDS: PROPOFOL 1,000,000 MCG/100 ML VIAL IVPB SCH ×3 (08:56→17:49)
[2019-08-02] MEDS: SPIRONOLACTONE 25 MG TABLET GT SCH (09:30)
[2019-08-02] MEDS: levETIRAcetam 500 MG/5 ML ORAL SOLUTION BULK GT SCH ×2 (09:31→21:06)
[2019-08-02] MEDS: ZINC SULFATE 220 MG CAPSULE (FP) GT SCH ×2 (09:31→21:07)
[2019-08-02] MEDS: POLYETHYLENE GLYCOL 3350 119 GM BTL GT SCH ×2 (09:31→21:07)
[2019-08-02] MEDS: POTASSIUM CHLORIDE ORAL LIQUID 20 MEQ/15 ML GT SCH ×2 (09:32→21:07)
[2019-08-02] MEDS: AMINO ACIDS/PROTEIN HYDROLYS 30 ML LIQUID.PKT GT SCH ×2 (09:32→17:49)
[2019-08-02] MEDS: PHENobarbital 20 MG/5 ML UNIT-DOSE CUP GT SCH ×3 (09:32→23:00)
[2019-08-02] MEDS: ASCORBIC ACID 500 MG/5 ML UNIT DOSE CUP GT SCH (09:32)
[2019-08-02] MEDS: FAMOTIDINE 40 MG/5 ML ORAL SUSPENSION NR SCH (09:34)
[2019-08-02] MEDS: Lacosamide 200 MG/20 ML VIAL IVPB SCH ×2 (09:34→21:37)
[2019-08-02] MEDS: CHOLECALCIFEROL (VIT D3) 400 UNIT (10 MCG) TABLET NR SCH (09:35)
--- NOTE | 2019-08-02 09:51 | PN ---
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 (short form) - Note 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: Pulm/CCM SUBJECTIVE: Pt seen and examined in the ICU. 24Hr: -minor vent adjustments overnight -remains on NMB due to vent dyschrony and difficulty ventilating. Vent settings: AC 38/280/60%/+5 -no acute event over the night OBJECTIVE: Vital Signs Period Temp Pulse Resp BP Sys/Ortiz Pulse Ox Last 24 Hr 97.4 F-100.6 F 81-144 38-38 97-115/47-65 99-100 Intake & Output 07/30/19 07/31/19 08/01/19 08/02/19 23:59 23:59 23:59 23:59 Intake Total 2513.8 3316.4 3776 1243.8 Output Total 4300 4250 1600 1400 Balance -1786.2 -933.6 2176 -156.2 Weight 83.659 kg 84.368 kg 85.502 kg 82.962 kg Gen: intubated, sedated, reparalyzed Heart: RRR Lung: bilateral rhonchi, trace secretions Abd: soft, nontender Ext:trace + edema Neuro: NMB ABG Results ABG pH 7.33 (7.35-7.45) L 08/02/19 05:30 ABG pCO2 at Pt Temp 79.6 mmHg (35-45) H* 08/02/19 05:30 ABG pO2 at Pt Temp 135.7 mmHg (80-100) H 08/02/19 05:30 ABG HCO3 41.0 mmol/L (22-27) H 08/02/19 05:30 ABG O2 Sat (Measured) 98.4 % (95-98) H 08/02/19 05:30 ABG O2 Content No Result Required. 08/02/19 05:30 ABG Base Excess 13.0 mmol/L (-2-2) H 08/02/19 05:30 CBC, BMP 08/02/19 05:35 08/02/19 05:35 Microbiology 07/31/19 17:25 Blood - Peripheral Venous Blood Culture - Preliminary Staphylococcus Coagulase Neg 07/31/19 16:30 Blood - Peripheral Venous Blood Culture - Preliminary NO GROWTH OBTAINED AFTER 24 HOURS, INCUBATION TO CONTINUE FOR 4 DAYS. 07/29/19 11:46 Blood - Peripheral Venous Blood Culture - Preliminary NO GROWTH OBTAINED AFTER 72 HOURS, INCUBATION TO CONTINUE FOR 2 DAYS. 07/29/19 11:18 Blood - Central Line Blood Culture - Preliminary NO GROWTH OBTAINED AFTER 72 HOURS, INCUBATION TO CONTINUE FOR 2 DAYS. Active Medications Acetaminophen (Tylenol Oral Solution -) 650 mg GT Q6H PRN PRN Reason: FEVER Last Admin: 08/01/19 23:31 Dose: 650 mg Documented by: Amino Acids (Prosource No Carb Liquid Pkt) 30 ml GT BID@0800,1730 [facility] Last Admin: 08/02/19 09:32 Dose: 30 ml Documented by: Artificial Tears (Artificial Tears) 1 drop OU BID PRN PRN Reason: DRY EYES Last Admin: 07/27/19 21:21 Dose: 1 drop Documented by: Ascorbic Acid (Vitamin C Oral Solution -) 500 mg GT DAILY [facility] Last Admin: 08/02/19 09:32 Dose: 500 mg Documented by: Chlorhexidine Gluconate (Hibiclens For Decolonization -) 1 applic TP HS [facility] Last Admin: 08/01/19 21:54 Dose: 1 applic Documented by: Cholecalciferol (Vitamin D3 -) 800 unit NR DAILY [facility] Last Admin: 08/02/19 09:35 Dose: 800 unit Documented by: Famotidine (Pepcid) 40 mg NR DAILY [facility] Last Admin: 08/02/19 09:34 Dose: 40 mg Documented by: Furosemide (Lasix Oral Solution -) 40 mg GT BID@0600,1400 [facility] Last Admin: 08/02/19 06:39 Dose: 40 mg Documented by: IV Flush (Triple Lumen Flush) 4 ml IVPUSH PRN PRN PRN Reason: Protocol Vecuronium [place] (Vecuronium [place]) 100 mg in 100 mls @ 5.226 mls/hr IVPB TITR [facility]; Protocol Last Admin: 08/01/19 05:53 Dose: 1 mcg/kg/min, 5.226 mls/hr Documented by: Vancomycin HCl 1,500 mg/ (Dextrose) 500 mls @ 250 mls/hr IVPB Q12H [facility]; Protocol Last Admin: 08/02/19 02:39 Dose: 250 mls/hr Documented by: Propofol (Diprivan -) 1,000,000 mcg in 100 mls @ 2.531 mls/hr IVPB TITR [facility]; Protocol Last Admin: 08/02/19 08:56 Dose: 50 mcg/kg/min, 25.31 mls/hr Documented by: Morphine Sulfate (Morphine 100mg/100ml-0.9% Nacl) 100 mg in 100 mls @ 1 mls/hr IVPB TITR [facility]; Protocol Last Infusion: 08/02/19 07:13 Dose: 9 mg/hr, 9 mls/hr Documented by: Cefepime HCl 2 gm/ Dextrose 100 mls @ 200 mls/hr IVPB Q8H-IV [facility]; Protocol Last Admin: 08/02/19 09:33 Dose: 200 mls/hr Documented by: Lacosamide (Vimpat Injection -) 200 mg IVPB BID [facility] Last Admin: 08/02/19 09:34 Dose: 200 mg Documented by: Levetiracetam (Levetiracetam Oral Suspension) 1,000 mg GT BID [facility] Last Admin: 08/02/19 09:31 Dose: 1,000 mg Documented by: Phenobarbital (Phenobarbital Liquid -) 60 mg GT BID [facility] Last Admin: 08/02/19 09:32 Dose: 60 mg Documented by: Polyethylene Glycol (Miralax (For Daily Use) -) 17 gm GT BID [facility] Last Admin: 08/02/19 09:31 Dose: 17 gm Documented by: Potassium Chloride (Potassium Chloride Oral Liquid) 40 meq GT BID [facility] Last Admin: 08/02/19 09:32 Dose: 40 meq Documented by: Spironolactone (Aldactone -) 100 mg GT DAILY [facility] Last Admin: 08/02/19 09:30 Dose: 100 mg Documented by: Topiramate (Topamax -) 200 mg GT TID [facility] Last Admin: 08/02/19 06:39 Dose: 200 mg Documented by: Zinc Sulfate (Orazinc -) 220 mg GT BID [facility] Last Admin: 08/02/19 09:31 Dose: 220 mg Documented by: ASSESSMENT AND PLAN: Acute Hypoxic and Hypercapneic Respiratory Failure COVID19 Pneumonia E Coli Pneumonia Fungenmia Bacteremia Septic Shock Seizure Disorder Mental Retardation - continue antibiotics, antifungals per ID - Vanco by level - continue antiepileptics - Keep negative balance - monitor urine output, creatinine - low tidal volume ventilation, may need to liberate despite airway pressures - titrate FiO2, PEEP to keep SpO2 >90% - NMB - enteral feeds - DVT/GI prophylaxis - continue ICU monitoring - for tracheostomy next week if unable to wean further Juliana Blancas ACNP [id number]
[2019-08-02] MEDS: MORPHINE SULFATE/0.9% NACL/PF 100 MG/100 ML BAG IVPB SCH (13:32)
[2019-08-02] MEDS: VECURONIUM BROMIDE 100 MG/100 ML BAG IVPB SCH (14:50)
--- NOTE | 2019-08-02 15:17 | PN ---
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, Physician History of Present Illness: Pt seen and examined at bedside. He remains in the ICU. He remains intubated. - Current Medication List Current Medications: Active Medications Acetaminophen (Tylenol Oral Solution -) 650 mg GT Q6H PRN PRN Reason: FEVER Last Admin: 08/01/19 23:31 Dose: 650 mg Documented by: Amino Acids (Prosource No Carb Liquid Pkt) 30 ml GT BID@0800,1730 [facility] Last Admin: 08/02/19 09:32 Dose: 30 ml Documented by: Artificial Tears (Artificial Tears) 1 drop OU BID PRN PRN Reason: DRY EYES Last Admin: 07/27/19 21:21 Dose: 1 drop Documented by: Ascorbic Acid (Vitamin C Oral Solution -) 500 mg GT DAILY [facility] Last Admin: 08/02/19 09:32 Dose: 500 mg Documented by: Chlorhexidine Gluconate (Hibiclens For Decolonization -) 1 applic TP HS [facility] Last Admin: 08/01/19 21:54 Dose: 1 applic Documented by: Cholecalciferol (Vitamin D3 -) 800 unit NR DAILY [facility] Last Admin: 08/02/19 09:35 Dose: 800 unit Documented by: Famotidine (Pepcid) 40 mg NR DAILY [facility] Last Admin: 08/02/19 09:34 Dose: 40 mg Documented by: Furosemide (Lasix Oral Solution -) 40 mg GT BID@0600,1400 [facility] Last Admin: 08/02/19 06:39 Dose: 40 mg Documented by: IV Flush (Triple Lumen Flush) 4 ml IVPUSH PRN PRN PRN Reason: Protocol Vecuronium [place] (Vecuronium [place]) 100 mg in 100 mls @ 5.226 mls/hr IVPB TITR [facility]; Protocol Last Admin: 08/01/19 05:53 Dose: 1 mcg/kg/min, 5.226 mls/hr Documented by: Vancomycin HCl 1,500 mg/ (Dextrose) 500 mls @ 250 mls/hr IVPB Q12H [facility]; Protocol Last Admin: 08/02/19 02:39 Dose: 250 mls/hr Documented by: Propofol (Diprivan -) 1,000,000 mcg in 100 mls @ 2.531 mls/hr IVPB TITR [facility]; Protocol Last Admin: 08/02/19 14:20 Dose: 50 mcg/kg/min, 25.31 mls/hr Documented by: Morphine Sulfate (Morphine 100mg/100ml-0.9% Nacl) 100 mg in 100 mls @ 1 mls/hr IVPB TITR [facility]; Protocol Last Admin: 08/02/19 13:32 Dose: 9 mg/hr, 9 mls/hr Documented by: Cefepime HCl 2 gm/ Dextrose 100 mls @ 200 mls/hr IVPB Q8H-IV [facility]; Protocol Last Admin: 08/02/19 09:33 Dose: 200 mls/hr Documented by: Lacosamide (Vimpat Injection -) 200 mg IVPB BID [facility] Last Admin: 08/02/19 09:34 Dose: 200 mg Documented by: Levetiracetam (Levetiracetam Oral Suspension) 1,000 mg GT BID [facility] Last Admin: 08/02/19 09:31 Dose: 1,000 mg Documented by: Phenobarbital (Phenobarbital Liquid -) 60 mg GT BID [facility] Last Admin: 08/02/19 09:32 Dose: 60 mg Documented by: Polyethylene Glycol (Miralax (For Daily Use) -) 17 gm GT BID [facility] Last Admin: 08/02/19 09:31 Dose: 17 gm Documented by: Potassium Chloride (Potassium Chloride Oral Liquid) 40 meq GT BID [facility] Last Admin: 08/02/19 09:32 Dose: 40 meq Documented by: Spironolactone (Aldactone -) 100 mg GT DAILY [facility] Last Admin: 08/02/19 09:30 Dose: 100 mg Documented by: Topiramate (Topamax -) 200 mg GT TID [facility] Last Admin: 08/02/19 06:39 Dose: 200 mg Documented by: Zinc Sulfate (Orazinc -) 220 mg GT BID [facility] Last Admin: 08/02/19 09:31 Dose: 220 mg Documented by: - Objective Vital Signs: Vital Signs Temperature 97.3 F L 08/02/19 10:00 Pulse Rate 94 H 08/02/19 12:00 Respiratory Rate 38 H 08/02/19 12:00 Blood Pressure 103/57 L 08/02/19 12:00 O2 Sat by Pulse Oximetry (%) 96 08/02/19 11:39 Constitutional: Yes: Calm Eyes: Yes: Conjunctiva Clear HENT: Yes: Atraumatic Cardiovascular: Yes: S1, S2 Respiratory: Yes: Mechanically Ventilated Gastrointestinal: Yes: Soft Genitourinary: Yes: Caceres Present Edema: Yes Edema: LUE: 1+, RUE: 1+, LLE: 1+, RLE: 1+ Neurological: Yes: Lethargy Labs: CBC, BMP 08/02/19 05:35 08/02/19 05:35 INR, PTT INR 1.01 (0.83-1.09) 07/28/19 05:00 - ....Imaging Chest X-ray: Report Reviewed Problem List - Problems (1) Hypernatremia Code(s): E87.0 - HYPEROSMOLALITY AND HYPERNATREMIA (2) Hypokalemia Code(s): E87.6 - HYPOKALEMIA (3) Acute respiratory failure with hypoxia Code(s): J96.01 - ACUTE RESPIRATORY FAILURE WITH HYPOXIA (4) Bacteremia Code(s): R78.81 - BACTEREMIA Assessment/Plan Current Medications Generic Name Dose Route Start Last Admin Trade Name Freq PRN Reason Stop Dose Admin Acetaminophen 650 mg 07/31/19 11:33 08/01/19 23:31 Tylenol Oral Solution - GT 650 mg Q6H PRN Administration FEVER Amino Acids 30 ml 07/31/19 11:33 08/02/19 09:32 Prosource No Carb Liquid Pkt GT 30 ml BID@0800,1730 [facility] Administration Artificial Tears 1 drop 07/27/19 09:32 07/27/19 21:21 Artificial Tears OU 1 drop BID PRN Administration DRY EYES Ascorbic Acid 500 mg 07/31/19 11:35 08/02/19 09:32 Vitamin C Oral Solution - GT 500 mg DAILY [facility] Administration Chlorhexidine Gluconate 1 applic 06/22/19 22:00 08/01/19 21:54 Hibiclens For Decolonization - TP 1 applic HS [facility] Administration Cholecalciferol 800 unit 07/31/19 11:35 08/02/19 09:35 Vitamin D3 - NR 800 unit DAILY [facility] Administration Famotidine 40 mg 07/31/19 11:53 08/02/19 09:34 Pepcid NR 40 mg DAILY [facility] Administration Furosemide 40 mg 07/31/19 14:00 08/02/19 06:39 Lasix Oral Solution - GT 40 mg BID@0600,1400 [facility] Administration IV Flush 4 ml 07/18/19 18:26 Triple Lumen Flush IVPUSH PRN PRN Protocol Vecuronium [place] 100 mg in 100 mls @ 5.226 mls/hr 07/17/19 11:15 08/01/19 05:53 Vecuronium [place] IVPB 1 mcg/kg/min TITR [facility] 5.226 mls/hr Administration Protocol 1 MCG/KG/MIN Vancomycin HCl 1,500 mg/ 500 mls @ 250 mls/hr 07/21/19 02:00 08/02/19 02:39 Dextrose IVPB 250 mls/hr Q12H [facility] Administration Protocol Propofol 1,000,000 mcg in 100 mls @ 2.531 mls/hr 07/31/19 14:00 08/02/19 14:20 Diprivan - IVPB 50 mcg/kg/min TITR [facility] 25.31 mls/hr Administration Protocol 5 MCG/KG/MIN Morphine Sulfate 100 mg in 100 mls @ 1 mls/hr 07/31/19 14:00 08/02/19 13:32 Morphine 100mg/100ml-0.9% Nacl IVPB 9 mg/hr TITR [facility] 9 mls/hr Administration Protocol 1 MG/HR Cefepime HCl 2 gm/ Dextrose 100 mls @ 200 mls/hr 08/01/19 11:45 08/02/19 09:33 IVPB 200 mls/hr Q8H-IV [facility] Administration Protocol Lacosamide 200 mg 07/31/19 11:52 08/02/19 09:34 Vimpat Injection - IVPB 200 mg BID [facility] Administration Levetiracetam 1,000 mg 07/31/19 11:51 08/02/19 09:31 Levetiracetam Oral Suspension GT 1,000 mg BID [facility] Administration Phenobarbital 60 mg 06/28/19 10:00 08/02/19 09:32 Phenobarbital Liquid - GT 60 mg BID [facility] Administration Polyethylene Glycol 17 gm 07/31/19 11:56 08/02/19 09:31 Miralax (For Daily Use) - GT 17 gm BID [facility] Administration Potassium Chloride 40 meq 07/31/19 11:56 08/02/19 09:32 Potassium Chloride Oral Liquid GT 40 meq BID [facility] Administration Spironolactone 100 mg 07/31/19 11:57 08/02/19 09:30 Aldactone - GT 100 mg DAILY [facility] Administration Topiramate 200 mg 07/31/19 11:58 08/02/19 06:39 Topamax - GT 200 mg TID [facility] Administration Zinc Sulfate 220 mg 07/31/19 12:13 08/02/19 09:31 Orazinc - GT 220 mg BID [facility] Administration Impression 1. hypokalemia 2. hypernatremia 3. resp failure 4. fungemia 5. covid 19 infection 6. ards 7. developemental delay 8. epilepsy 9. bactermia 10. resp acidosis with compensatory met alk Plan - cont lasix - cont diuretics - vent support - cxr with worsening aeration - cont ICU care - monitor input/output
[2019-08-02] MEDS: ACETAMINOPHEN 650 MG/20.3 ML ORAL SOLUTION (CUPS) GT PRN (21:34)
[2019-08-02] MEDS: CHLORHEXIDINE GLUCONATE 4% CLEANSER FOR DECOLONIZATION TP SCH (21:37)
[2019-08-03] MEDS ORDERED: PT OWN MED DRAWER 7, Y5N ONE ×10 (00:23→21:26)
[2019-08-03] MEDS: CEFEPIME 2 GM in DEXTROSE 5%-WATER 100 ML IVPB SCH ×3 (01:04→17:46)
[2019-08-03] MEDS: VANCOMYCIN HCL 1,500 MG in DEXTROSE 5%-WATER - 500 ML IVPB SCH ×2 (02:28→15:53)
[2019-08-03] MEDS: FUROSEMIDE 40 MG/5 ML UNIT-DOSE CUP GT SCH ×2 (06:23→13:08)
[2019-08-03] MEDS: TOPIRAMATE 200 MG TABLET GT SCH ×3 (06:23→21:34)
[2019-08-03] MEDS: ZINC SULFATE 220 MG CAPSULE (FP) GT SCH ×2 (09:35→21:36)
[2019-08-03] MEDS: AMINO ACIDS/PROTEIN HYDROLYS 30 ML LIQUID.PKT GT SCH ×2 (09:35→17:45)
[2019-08-03] MEDS: SPIRONOLACTONE 25 MG TABLET GT SCH (09:35)
[2019-08-03] MEDS: Lacosamide 200 MG/20 ML VIAL IVPB SCH ×2 (09:37→21:34)
[2019-08-03] MEDS: PHENobarbital 20 MG/5 ML UNIT-DOSE CUP GT SCH ×2 (09:38→21:33)
[2019-08-03] MEDS: POLYETHYLENE GLYCOL 3350 119 GM BTL GT SCH ×2 (09:40→21:36)
[2019-08-03] MEDS: POTASSIUM CHLORIDE ORAL LIQUID 20 MEQ/15 ML GT SCH ×2 (09:43→21:34)
[2019-08-03] MEDS: levETIRAcetam 500 MG/5 ML ORAL SOLUTION BULK GT SCH ×2 (09:53→21:37)
[2019-08-03] MEDS: ASCORBIC ACID 500 MG/5 ML UNIT DOSE CUP GT SCH (09:54)
[2019-08-03] MEDS: CHOLECALCIFEROL (VIT D3) 400 UNIT (10 MCG) TABLET NR SCH (09:54)
[2019-08-03] MEDS: FAMOTIDINE 40 MG/5 ML ORAL SUSPENSION NR SCH (10:24)
[2019-08-03 11:00] LABS: BASO % 0.9 % (0-2.0); EOS % 4.3 % (0-4.5); HEMATOCRIT 26.5 % (35.4-49); HEMOGLOBIN 8.6 GM/dL (11.7-16.9); LYMPH % 16.8 % (8-40); MCHC 32.3 g/dl (32.0-35.9); MEAN CELL VOLUME 92.9 fl (80-96); MONO % 10.7 % (3.8-10.2); NEUT % 67.3 % (42.8-82.8); PLATELET COUNT 554 K/MM3 (134-434); RBC 2.86 M/mm3 (4.00-5.60); RDW 18.4 % (11.9-15.9); WHITE BLOOD COUNT 13.6 K/mm3 (4.0-10.0)
[2019-08-03] MEDS ORDERED: ENOXAPARIN NA (PORCINE) 30 MG/0.3 ML DISP.SYRIN SQ SCH (11:00)
[2019-08-03 11:02] LABS: ARTERIAL BLD GAS O2 SATURATION 98.6 % (95-98); ARTERIAL BLOOD GAS BASE EXCESS 8.3 mmol/L (-2-2); ARTERIAL BLOOD GAS PCO2 59.7 mmHg (35-45); ARTERIAL BLOOD GAS PO2 77.1 mmHg (80-100); ARTERIAL BLOOD GAS pH 7.39 (7.35-7.45)
--- NOTE | 2019-08-03 11:23 | PN ---
Teaching Attending Note Name of Resident: Alfonzo Albright ATTENDING PHYSICIAN STATEMENT I saw and evaluated the patient. I reviewed the resident's note and discussed the case with the resident. I agree with the resident's findings and plan as documented. SUBJECTIVE: Pt seen and examined in the ICU. Remains intubated, awake off sedation. No pre ssors. Vented on volume assist control with 50% FiO2, PEEP 5. Good urine output. Low grade fever yesterday. OBJECTIVE: Vital Signs Period Temp Pulse Resp BP Sys/Ortiz Pulse Ox Last 24 Hr 97.9 F-100.7 F 71-113 19-40 96-113/45-62 89-100 Intake & Output 07/31/19 08/01/19 08/02/19 08/03/19 23:59 23:59 23:59 23:59 Intake Total 3316.4 3776 2858.4 801.4 Output Total 4250 1600 3350 600 Balance -933.6 2176 -491.6 201.4 Weight 84.368 kg 85.502 kg 82.962 kg 83.416 kg Gen: intubated, awake Heart: RRR Lung: bilateral rhonchi Abd: soft, nontender Ext: + edema CBC, BMP 08/03/19 10:40 ABG Results ABG pH 7.39 (7.35-7.45) 08/03/19 10:45 ABG pCO2 at Pt Temp 59.7 mmHg (35-45) H 08/03/19 10:45 ABG pO2 at Pt Temp 77.1 mmHg (80-100) L 08/03/19 10:45 ABG HCO3 34.9 mmol/L (22-27) H 08/03/19 10:45 ABG O2 Sat (Measured) 98.6 % (95-98) H 08/03/19 10:45 ABG O2 Content No Result Required. 08/03/19 10:45 ABG Base Excess 8.3 mmol/L (-2-2) H 08/03/19 10:45 Active Medications Acetaminophen (Tylenol Oral Solution -) 650 mg GT Q6H PRN PRN Reason: FEVER Last Admin: 08/02/19 21:34 Dose: 650 mg Documented by: Amino Acids (Prosource No Carb Liquid Pkt) 30 ml GT BID@0800,1730 [facility] Last Admin: 08/03/19 09:35 Dose: 30 ml Documented by: Artificial Tears (Artificial Tears) 1 drop OU BID PRN PRN Reason: DRY EYES Last Admin: 07/27/19 21:21 Dose: 1 drop Documented by: Ascorbic Acid (Vitamin C Oral Solution -) 500 mg GT DAILY [facility] Last Admin: 08/03/19 09:54 Dose: 500 mg Documented by: Chlorhexidine Gluconate (Hibiclens For Decolonization -) 1 applic TP HS [facility] Last Admin: 08/02/19 21:37 Dose: 1 applic Documented by: Cholecalciferol (Vitamin D3 -) 800 unit NR DAILY [facility] Last Admin: 08/03/19 09:54 Dose: 800 unit Documented by: Enoxaparin Sodium (Lovenox -) 30 mg SQ Q12H [facility] Famotidine (Pepcid) 40 mg NR DAILY [facility] Last Admin: 08/03/19 10:24 Dose: 40 mg Documented by: Furosemide (Lasix Oral Solution -) 40 mg GT BID@0600,1400 [facility] Last Admin: 08/03/19 06:23 Dose: 40 mg Documented by: IV Flush (Triple Lumen Flush) 4 ml IVPUSH PRN PRN PRN Reason: Protocol Vecuronium [place] (Vecuronium [place]) 100 mg in 100 mls @ 5.226 mls/hr IVPB TITR [facility]; Protocol Last Titration: 08/03/19 00:45 Dose: 0 mcg/kg/min, 0 mls/hr Documented by: Vancomycin HCl 1,500 mg/ (Dextrose) 500 mls @ 250 mls/hr IVPB Q12H [facility]; Protocol Last Admin: 08/03/19 02:28 Dose: 250 mls/hr Documented by: Propofol (Diprivan -) 1,000,000 mcg in 100 mls @ 2.531 mls/hr IVPB TITR [facility]; Protocol Last Titration: 08/03/19 02:30 Dose: 40 mcg/kg/min, 20.248 mls/hr Documented by: Morphine Sulfate (Morphine 100mg/100ml-0.9% Nacl) 100 mg in 100 mls @ 1 mls/hr IVPB TITR [facility]; Protocol Last Admin: 08/02/19 13:32 Dose: 9 mg/hr, 9 mls/hr Documented by: Cefepime HCl 2 gm/ Dextrose 100 mls @ 200 mls/hr IVPB Q8H-IV [facility]; Protocol Last Admin: 08/03/19 09:51 Dose: 200 mls/hr Documented by: Lacosamide (Vimpat Injection -) 200 mg IVPB BID [facility] Last Admin: 08/03/19 09:37 Dose: 200 mg Documented by: Levetiracetam (Levetiracetam Oral Suspension) 1,000 mg GT BID [facility] Last Admin: 08/03/19 09:53 Dose: 1,000 mg Documented by: Phenobarbital (Phenobarbital Liquid -) 60 mg GT BID [facility] Last Admin: 08/03/19 09:38 Dose: 60 mg Documented by: Polyethylene Glycol (Miralax (For Daily Use) -) 17 gm GT BID [facility] Last Admin: 08/03/19 09:40 Dose: Not Given Documented by: Potassium Chloride (Potassium Chloride Oral Liquid) 40 meq GT BID [facility] Last Admin: 08/03/19 09:43 Dose: 40 meq Documented by: Spironolactone (Aldactone -) 100 mg GT DAILY [facility] Last Admin: 08/03/19 09:35 Dose: 100 mg Documented by: Topiramate (Topamax -) 200 mg GT TID [facility] Last Admin: 08/03/19 06:23 Dose: 200 mg Documented by: Zinc Sulfate (Orazinc -) 220 mg GT BID [facility] Last Admin: 08/03/19 09:35 Dose: 220 mg Documented by: ASSESSMENT AND PLAN: Acute Hypoxic and Hypercapneic Respiratory Failure COVID19 Pneumonia E Coli Pneumonia Fungenmia Bacteremia Septic Shock Seizure Disorder Mental Retardation - reculture when febrile - continue antibiotics, antifungals per ID - continue antiepileptics - lasix, aldactone - monitor urine output, creatinine - low tidal volume ventilation - titrate FiO2, PEEP to keep SpO2 >90% - minimize sedation to assess mental status - placed on SIMV, wean as tolerated - enteral feeds - DVT/GI prophylaxis - continue ICU monitoring - for tracheostomy next week if unable to wean further critical care time spent in reviewing chart, evaluating patient and formulating plan 35 min
[2019-08-03 11:31] LABS: ALBUMIN 2.1 g/dl (3.4-5.0); BILIRUBIN,TOTAL 0.6 mg/dL (0.2-1); BLOOD UREA NITROGEN 12.4 mg/dL (7-18); CALCIUM 9.2 mg/dL (8.5-10.1); CREATININE 0.2 mg/dL (0.55-1.3); MAGNESIUM 1.8 mg/dL (1.8-2.4); PHOSPHOROUS 3.8 mg/dL (2.5-4.9); POTASSIUM 3.1 mmol/L (3.5-5.1); TOT PROT 5.6 g/dl (6.4-8.2)
--- NOTE | 2019-08-03 12:29 | PN ---
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 (short form) - Note 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: remains intubated weaning oxygen now on 50% no fevers Vital Signs Period Temp Pulse Resp BP Sys/Ortiz Pulse Ox Last 24 Hr 97.9 F-100.7 F 71-114 19-40 96-136/45-76 89-100 cor-rrr lungs decreased bs at bases abd soft,nt ext no edema CBC, BMP 08/03/19 10:40 08/03/19 10:40 Microbiology 08/01/19 11:55 Sputum - Endotrachea Suction/Ventilator Gram Stain - Final 08/01/19 11:55 Sputum - Endotrachea Suction/Ventilator Sputum Culture - Final Mr S Aureus 07/29/19 11:46 Blood - Peripheral Venous Blood Culture - Final NO GROWTH AFTER 5 DAYS INCUBATION 07/29/19 11:18 Blood - Central Line Blood Culture - Final NO GROWTH AFTER 5 DAYS INCUBATION 07/31/19 16:30 Blood - Peripheral Venous Blood Culture - Preliminary NO GROWTH OBTAINED AFTER 48 HOURS, INCUBATION TO CONTINUE FOR 3 DAYS. 07/31/19 17:25 Blood - Peripheral Venous Blood Culture - Preliminary Staphylococcus Coagulase Neg 07/29/19 11:18 Urine - Urine Caceres Urine Culture - Final NO GROWTH OBTAINED 07/12/19 11:04 Blood - Peripheral Venous Yeast/Fungus Identification - Final Janis Lusitaniae 07/18/19 21:10 Blood - Peripheral Venous Blood Culture - Final NO GROWTH AFTER 5 DAYS INCUBATION 07/18/19 18:30 Blood - Peripheral Venous Blood Culture - Final NO GROWTH AFTER 5 DAYS INCUBATION 07/15/19 12:25 Blood - Peripheral Venous Blood Culture - Final NO GROWTH AFTER 5 DAYS INCUBATION 07/16/19 15:15 Blood - Peripheral Venous Blood Culture - Final Staphylococcus Epidermidis 07/14/19 11:30 Blood - Peripheral Venous Blood Culture - Final NO GROWTH AFTER 5 DAYS INCUBATION 07/16/19 15:05 Blood - Peripheral Venous Blood Culture - Final Staphylococcus Epidermidis 07/16/19 12:30 Sputum - Endotrachea Suction/Ventilator Gram Stain - Final 07/16/19 12:30 Sputum - Endotrachea Suction/Ventilator Sputum Culture - Final Mr S Aureus Escherichia Coli 07/12/19 10:55 Blood - Peripheral Venous Blood Culture - Final NO GROWTH AFTER 5 DAYS INCUBATION 07/16/19 12:30 Urine - Urine - Catheterized Urine Culture - Final NO GROWTH OBTAINED 07/12/19 06:00 Sputum - Endotrachea Suction/Ventilator Gram Stain - Final 07/12/19 06:00 Sputum - Endotrachea Suction/Ventilator Sputum Culture - Final 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 Mr S Aureus 07/12/19 11:04 Blood - Peripheral Venous Blood Culture - Final 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 07/01/19 18:15 Blood - Peripheral Venous Blood Culture - Final NO GROWTH AFTER 5 DAYS INCUBATION 06/29/19 12:30 Blood - Peripheral Venous Blood Culture - Final Staphylococcus Epidermidis 06/30/19 17:15 Sputum - Endotrachea Suction/Ventilator Gram Stain - Final 06/30/19 17:15 Sputum - Endotrachea Suction/Ventilator Sputum Culture - Final Escherichia Coli Esbl Ms [employer] Developer 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 06/28/19 09:00 Blood - Peripheral Venous Blood Culture - Final Staphylococcus Epidermidis 06/28/19 12:50 Sputum - Endotrachea Suction/Ventilator Gram Stain - Final 06/28/19 12:50 Sputum - Endotrachea Suction/Ventilator Sputum Culture - Final 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 Staphylococcus Aureus 06/25/19 13:40 Blood - Peripheral Venous Blood Culture - Final NO GROWTH AFTER 5 DAYS INCUBATION 06/25/19 13:20 Blood - Peripheral Venous Blood Culture - Final NO GROWTH AFTER 5 DAYS INCUBATION 06/28/19 12:51 Urine - Urine Caceres Urine Culture - Final NO GROWTH OBTAINED 06/22/19 13:00 Blood - Peripheral Venous Blood Culture - Final Staphylococcus Warneri 06/22/19 13:00 Blood - Peripheral Venous Blood Culture - Final Staphylococcus Epidermidis 06/24/19 00:01 Urine - Urine Caceres Urine Culture - Final NO GROWTH OBTAINED 06/24/19 00:01 Urine For Antigen Detection Legionella Antigen - Final 06/24/19 00:01 Urine For Antigen Detection Streptococcus pneumoniae Antigen (M - Final cxray unchanged vanco trough 14.9 covid pcr negative (repeat) quantiferon negative imp/reccd fevers improved- on vanco/cefepime (added 07/31) ?mrsa colonization - gram stain no polys ARDS/pneumonia- bacteremia- recurrent staph epi bacteremia- ?endocarditis- echo unrevealing- continue vancomycin, day #19-plan 6 weeks repeat blood culture positive one bottle- await ID fungemia- janis lusitanae- has completed 14 days cancidas- repeat cultures negative covid 19 positive -repeat pcr negative s/p convalescent plasma s/p tocilizumab MRSA isolation for positive sputum culture- esbl isolation for prior sputum ecoli esbl overall prognosis is guarded over 35min spent in the care of this critically ill icu patient Problem List - Problems (1) Suspected COVID-19 virus infection Code(s): R68.89 - OTHER GENERAL SYMPTOMS AND SIGNS (2) Acute respiratory failure with hypoxia Code(s): J96.01 - ACUTE RESPIRATORY FAILURE WITH HYPOXIA (3) Bacteremia Code(s): R78.81 - BACTEREMIA
[2019-08-03] MEDS: PROPOFOL 1,000,000 MCG/100 ML VIAL IVPB SCH (13:08)
[2019-08-03] MEDS: MORPHINE SULFATE/0.9% NACL/PF 100 MG/100 ML BAG IVPB SCH (13:09)
--- NOTE | 2019-08-03 17:29 | PN ---
Physical Exam: SUBJECTIVE: Patient seen and examined. Pt awake, will hold sedation- propofol, morphine. Overnight 100.7 Febrile and asymptomatic. OBJECTIVE: Vital Signs Period Temp Pulse Resp BP Sys/Ortiz Pulse Ox Last 24 Hr 98.3 F-100.7 F 71-114 19-40 96-136/45-76 89-100 GENERAL: awake, and vented HEAD: Normal with no signs of trauma. EYES: PERRLA NECK: Trachea midline, supple, ETT in place. LUNGS:coarse breath sounds b/l HEART: Regular rate and rhythm. ABDOMEN: Soft, nontender, nondistended. : Caceres in place EXTREMITIES: warm, no edema. Laboratory Results - last 24 hr 08/03/19 08/03/19 08/03/19 10:40 10:40 10:45 WBC 13.6 H RBC 2.86 L Hgb 8.6 L Hct 26.5 L MCV 92.9 MCH 30.0 MCHC 32.3 RDW 18.4 H Plt Count 554 H D MPV 8.0 Absolute Neuts (auto) 9.2 H Neutrophils % 67.3 Lymphocytes % 16.8 D Monocytes % 10.7 H Eosinophils % 4.3 D Basophils % 0.9 Nucleated RBC % 0 Anticoagulation Therapy No Result Required. Puncture Site Left radial ABG pH 7.39 ABG pCO2 at Pt Temp 59.7 H ABG pO2 at Pt Temp 77.1 L ABG HCO3 34.9 H ABG O2 Sat (Measured) 98.6 H ABG O2 Content No Result Required. ABG Base Excess 8.3 H Yousuf Test No Result Required. Patient On Oxygen Yes O2 Delivery Device No Result Required. Oxygen Flow Rate 50 Vent Mode Simv Vent Rate 10 Mechanical Rate No Result Required. PEEP 5.0 Pressure Support Vent 360 Sodium 135 L Potassium 3.1 L Chloride 94 L Carbon Dioxide 35 H Anion Gap 6 L BUN 12.4 Creatinine 0.2 L Est GFR (CKD-EPI)AfAm 232.19 Est GFR (CKD-EPI)NonAf 200.34 Random Glucose 109 H Calcium 9.2 Phosphorus 3.8 Magnesium 1.8 Total Bilirubin 0.6 AST 36 ALT 38 Alkaline Phosphatase 150 H Total Protein 5.6 L Albumin 2.1 L Active Medications Generic Name Dose Route Start Last Admin Trade Name Freq PRN Reason Stop Dose Admin Acetaminophen 650 mg 07/31/19 11:33 08/02/19 21:34 Tylenol Oral Solution - GT 650 mg Q6H PRN Administration FEVER Amino Acids 30 ml 07/31/19 11:33 08/03/19 09:35 Prosource No Carb Liquid Pkt GT 30 ml BID@0800,1730 [facility] Administration Artificial Tears 1 drop 07/27/19 09:32 07/27/19 21:21 Artificial Tears OU 1 drop BID PRN Administration DRY EYES Ascorbic Acid 500 mg 07/31/19 11:35 08/03/19 09:54 Vitamin C Oral Solution - GT 500 mg DAILY [facility] Administration Chlorhexidine Gluconate 1 applic 06/22/19 22:00 08/02/19 21:37 Hibiclens For Decolonization - TP 1 applic HS [facility] Administration Cholecalciferol 800 unit 07/31/19 11:35 08/03/19 09:54 Vitamin D3 - NR 800 unit DAILY [facility] Administration Enoxaparin Sodium 30 mg 08/03/19 11:00 08/03/19 12:09 Lovenox - SQ 30 mg Q12H [facility] Administration Famotidine 40 mg 07/31/19 11:53 08/03/19 10:24 Pepcid NR 40 mg DAILY [facility] Administration Furosemide 40 mg 07/31/19 14:00 08/03/19 13:08 Lasix Oral Solution - GT 40 mg BID@0600,1400 [facility] Administration IV Flush 4 ml 07/18/19 18:26 Triple Lumen Flush IVPUSH PRN PRN Protocol Vecuronium [place] 100 mg in 100 mls @ 5.226 mls/hr 07/17/19 11:15 08/03/19 00:45 Vecuronium [place] IVPB 0 mcg/kg/min TITR [facility] 0 mls/hr Titration Protocol 1 MCG/KG/MIN Vancomycin HCl 1,500 mg/ 500 mls @ 250 mls/hr 07/21/19 02:00 08/03/19 15:53 Dextrose IVPB 250 mls/hr Q12H [facility] Administration Protocol Propofol 1,000,000 mcg in 100 mls @ 2.531 mls/hr 07/31/19 14:00 08/03/19 13:08 Diprivan - IVPB 40 mcg/kg/min TITR [facility] 20.248 mls/hr Administration Protocol 5 MCG/KG/MIN Morphine Sulfate 100 mg in 100 mls @ 1 mls/hr 07/31/19 14:00 08/03/19 13:09 Morphine 100mg/100ml-0.9% Nacl IVPB 9 mg/hr TITR [facility] 9 mls/hr Administration Protocol 1 MG/HR Cefepime HCl 2 gm/ Dextrose 100 mls @ 200 mls/hr 08/01/19 11:45 08/03/19 09:51 IVPB 200 mls/hr Q8H-IV [facility] Administration Protocol Lacosamide 200 mg 07/31/19 11:52 08/03/19 09:37 Vimpat Injection - IVPB 200 mg BID [facility] Administration Levetiracetam 1,000 mg 07/31/19 11:51 08/03/19 09:53 Levetiracetam Oral Suspension GT 1,000 mg BID [facility] Administration Phenobarbital 60 mg 06/28/19 10:00 08/03/19 09:38 Phenobarbital Liquid - GT 60 mg BID [facility] Administration Polyethylene Glycol 17 gm 07/31/19 11:56 08/03/19 09:40 Miralax (For Daily Use) - GT Not Given BID [facility] Potassium Chloride 40 meq 07/31/19 11:56 08/03/19 09:43 Potassium Chloride Oral Liquid GT 40 meq BID [facility] Administration Spironolactone 100 mg 07/31/19 11:57 08/03/19 09:35 Aldactone - GT 100 mg DAILY [facility] Administration Topiramate 200 mg 07/31/19 11:58 08/03/19 06:23 Topamax - GT 200 mg TID [facility] Administration Zinc Sulfate 220 mg 07/31/19 12:13 08/03/19 09:35 Orazinc - GT 220 mg BID [facility] Administration ASSESSMENT/PLAN: 38M with PMH MR and epilepsy who presented to ED initially with SOB and hypoxia requiring intubation, admitted to hospital for hypoxic respiratory failure 2/2 to covid-19. NEURO wean as tolerated off sedation awake and vented -epilepsy continue Keppra, Topamax, Vimpat, and phenobarbitol PULM -Acute hypoxic respiratory failure 2/2 covid-19 intubated AC 38/280/50/5 wean FIO2 with goal SpO2 >90% holding vecuronium drip, s/p Plaquenil, convalescent plasma, and Actemra CARDIO off pressors ID fungemia-quita- s/p 14 days cancidas- repeat cultures negative bacteremia- BCx- staph coag neg sputum- MRSA previous sputum esbl continue vancomycin D17- total of 6 weeks needed, cefepime D3 s/p ryan, casopofungin Renal hypokalemia BID NGT KCl 40mEq while on Lasix 40 BID IVP aldactone started by renal KCl given r/p potassium for 10 pm FEN diet continue tube feeds replete PRN PPX DVT Lovenox 80 BID GI ppx Protonix 40mg QD LTD ETT replaced 07/17 LSC TLC placed 07/17 removed today R radial A-line placed 07/17 DISPO: cont monitoring off sedation, off pressors, cont abx Visit type - Emergency Visit Emergency Visit: Yes ED Registration Date: 06/22/19 Care time: The patient presented to the Emergency Department on the above date and was hospitalized for further evaluation of their emergent condition. - New Patient This patient is new to me today: Yes Date on this admission: 08/04/19 - Critical Care Critical Care patient: No - Discharge Referral Referred to [facility] Med [facility].C.: No ATTENDING PHYSICIAN STATEMENT I saw and evaluated the patient. I reviewed the resident's note and discussed the case with the resident. I agree with the resident's findings and plan as documented. SUBJECTIVE: OBJECTIVE: ASSESSMENT AND PLAN:
--- NOTE | 2019-08-03 17:37 | PN ---
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, Physician History of Present Illness: Pt seen and examined at bedside. He remains in the ICU. He opens his eyes. - Current Medication List Current Medications: Active Medications Acetaminophen (Tylenol Oral Solution -) 650 mg GT Q6H PRN PRN Reason: FEVER Last Admin: 08/02/19 21:34 Dose: 650 mg Documented by: Amino Acids (Prosource No Carb Liquid Pkt) 30 ml GT BID@0800,1730 [facility] Last Admin: 08/03/19 09:35 Dose: 30 ml Documented by: Artificial Tears (Artificial Tears) 1 drop OU BID PRN PRN Reason: DRY EYES Last Admin: 07/27/19 21:21 Dose: 1 drop Documented by: Ascorbic Acid (Vitamin C Oral Solution -) 500 mg GT DAILY [facility] Last Admin: 08/03/19 09:54 Dose: 500 mg Documented by: Chlorhexidine Gluconate (Hibiclens For Decolonization -) 1 applic TP HS [facility] Last Admin: 08/02/19 21:37 Dose: 1 applic Documented by: Cholecalciferol (Vitamin D3 -) 800 unit NR DAILY [facility] Last Admin: 08/03/19 09:54 Dose: 800 unit Documented by: Enoxaparin Sodium (Lovenox -) 80 mg SQ Q12H [facility] Famotidine (Pepcid) 40 mg NR DAILY [facility] Last Admin: 08/03/19 10:24 Dose: 40 mg Documented by: Furosemide (Lasix Oral Solution -) 40 mg GT BID@0600,1400 [facility] Last Admin: 08/03/19 13:08 Dose: 40 mg Documented by: IV Flush (Triple Lumen Flush) 4 ml IVPUSH PRN PRN PRN Reason: Protocol Vecuronium [place] (Vecuronium [place]) 100 mg in 100 mls @ 5.226 mls/hr IVPB TITR [facility]; Protocol Last Titration: 08/03/19 00:45 Dose: 0 mcg/kg/min, 0 mls/hr Documented by: Vancomycin HCl 1,500 mg/ (Dextrose) 500 mls @ 250 mls/hr IVPB Q12H [facility]; Protocol Last Admin: 08/03/19 15:53 Dose: 250 mls/hr Documented by: Propofol (Diprivan -) 1,000,000 mcg in 100 mls @ 2.531 mls/hr IVPB TITR [facility]; Protocol Last Admin: 08/03/19 13:08 Dose: 40 mcg/kg/min, 20.248 mls/hr Documented by: Morphine Sulfate (Morphine 100mg/100ml-0.9% Nacl) 100 mg in 100 mls @ 1 mls/hr IVPB TITR [facility]; Protocol Last Admin: 08/03/19 13:09 Dose: 9 mg/hr, 9 mls/hr Documented by: Cefepime HCl 2 gm/ Dextrose 100 mls @ 200 mls/hr IVPB Q8H-IV [facility]; Protocol Last Admin: 08/03/19 09:51 Dose: 200 mls/hr Documented by: Potassium Chloride (Potassium Chloride 10 Meq Premix Ivpb -) 10 meq in 100 mls @ 100 mls/hr IVPB Q60M [facility] Stop: 08/03/19 20:14 Lacosamide (Vimpat Injection -) 200 mg IVPB BID [facility] Last Admin: 08/03/19 09:37 Dose: 200 mg Documented by: Levetiracetam (Levetiracetam Oral Suspension) 1,000 mg GT BID [facility] Last Admin: 08/03/19 09:53 Dose: 1,000 mg Documented by: Phenobarbital (Phenobarbital Liquid -) 60 mg GT BID [facility] Last Admin: 08/03/19 09:38 Dose: 60 mg Documented by: Polyethylene Glycol (Miralax (For Daily Use) -) 17 gm GT BID [facility] Last Admin: 08/03/19 09:40 Dose: Not Given Documented by: Potassium Chloride (Potassium Chloride Oral Liquid) 40 meq GT BID [facility] Last Admin: 08/03/19 09:43 Dose: 40 meq Documented by: Spironolactone (Aldactone -) 100 mg GT DAILY [facility] Last Admin: 08/03/19 09:35 Dose: 100 mg Documented by: Topiramate (Topamax -) 200 mg GT TID [facility] Last Admin: 08/03/19 06:23 Dose: 200 mg Documented by: Zinc Sulfate (Orazinc -) 220 mg GT BID [facility] Last Admin: 08/03/19 09:35 Dose: 220 mg Documented by: - Objective Vital Signs: Vital Signs Temperature 98.4 F 08/03/19 14:00 Pulse Rate 110 H 08/03/19 14:00 Respiratory Rate 22 H 08/03/19 16:20 Blood Pressure 97/48 L 08/03/19 14:00 O2 Sat by Pulse Oximetry (%) 96 08/03/19 16:20 Constitutional: Yes: Calm Eyes: Yes: Conjunctiva Clear HENT: Yes: Atraumatic Neck: Yes: Supple Cardiovascular: Yes: S1, S2 Respiratory: Yes: Mechanically Ventilated Gastrointestinal: Yes: Soft Genitourinary: Yes: Caceres Present Edema: Yes Labs: CBC, BMP 08/03/19 10:40 08/03/19 10:40 INR, PTT INR 1.01 (0.83-1.09) 07/28/19 05:00 Problem List - Problems (1) Hypernatremia Code(s): E87.0 - HYPEROSMOLALITY AND HYPERNATREMIA (2) Hypokalemia Code(s): E87.6 - HYPOKALEMIA (3) Acute respiratory failure with hypoxia Code(s): J96.01 - ACUTE RESPIRATORY FAILURE WITH HYPOXIA (4) Bacteremia Code(s): R78.81 - BACTEREMIA Assessment/Plan Current Medications Generic Name Dose Route Start Last Admin Trade Name Freq PRN Reason Stop Dose Admin Acetaminophen 650 mg 07/31/19 11:33 08/02/19 21:34 Tylenol Oral Solution - GT 650 mg Q6H PRN Administration FEVER Amino Acids 30 ml 07/31/19 11:33 08/03/19 09:35 Prosource No Carb Liquid Pkt GT 30 ml BID@0800,1730 [facility] Administration Artificial Tears 1 drop 07/27/19 09:32 07/27/19 21:21 Artificial Tears OU 1 drop BID PRN Administration DRY EYES Ascorbic Acid 500 mg 07/31/19 11:35 08/03/19 09:54 Vitamin C Oral Solution - GT 500 mg DAILY [facility] Administration Chlorhexidine Gluconate 1 applic 06/22/19 22:00 08/02/19 21:37 Hibiclens For Decolonization - TP 1 applic HS [facility] Administration Cholecalciferol 800 unit 07/31/19 11:35 08/03/19 09:54 Vitamin D3 - NR 800 unit DAILY [facility] Administration Enoxaparin Sodium 80 mg 08/03/19 18:00 Lovenox - SQ Q12H [facility] Famotidine 40 mg 07/31/19 11:53 08/03/19 10:24 Pepcid NR 40 mg DAILY [facility] Administration Furosemide 40 mg 07/31/19 14:00 08/03/19 13:08 Lasix Oral Solution - GT 40 mg BID@0600,1400 [facility] Administration IV Flush 4 ml 07/18/19 18:26 Triple Lumen Flush IVPUSH PRN PRN Protocol Vecuronium [place] 100 mg in 100 mls @ 5.226 mls/hr 07/17/19 11:15 08/03/19 00:45 Vecuronium [place] IVPB 0 mcg/kg/min TITR [facility] 0 mls/hr Titration Protocol 1 MCG/KG/MIN Vancomycin HCl 1,500 mg/ 500 mls @ 250 mls/hr 07/21/19 02:00 08/03/19 15:53 Dextrose IVPB 250 mls/hr Q12H [facility] Administration Protocol Propofol 1,000,000 mcg in 100 mls @ 2.531 mls/hr 07/31/19 14:00 08/03/19 13:08 Diprivan - IVPB 40 mcg/kg/min TITR [facility] 20.248 mls/hr Administration Protocol 5 MCG/KG/MIN Morphine Sulfate 100 mg in 100 mls @ 1 mls/hr 07/31/19 14:00 08/03/19 13:09 Morphine 100mg/100ml-0.9% Nacl IVPB 9 mg/hr TITR [facility] 9 mls/hr Administration Protocol 1 MG/HR Cefepime HCl 2 gm/ Dextrose 100 mls @ 200 mls/hr 08/01/19 11:45 08/03/19 09:51 IVPB 200 mls/hr Q8H-IV [facility] Administration Protocol Potassium Chloride 10 meq in 100 mls @ 100 mls/hr 08/03/19 17:15 Potassium Chloride 10 Meq Premix Ivpb - IVPB 08/03/19 20:14 Q60M [facility] Lacosamide 200 mg 07/31/19 11:52 08/03/19 09:37 Vimpat Injection - IVPB 200 mg BID [facility] Administration Levetiracetam 1,000 mg 07/31/19 11:51 08/03/19 09:53 Levetiracetam Oral Suspension GT 1,000 mg BID [facility] Administration Phenobarbital 60 mg 06/28/19 10:00 08/03/19 09:38 Phenobarbital Liquid - GT 60 mg BID [facility] Administration Polyethylene Glycol 17 gm 07/31/19 11:56 08/03/19 09:40 Miralax (For Daily Use) - GT Not Given BID [facility] Potassium Chloride 40 meq 07/31/19 11:56 08/03/19 09:43 Potassium Chloride Oral Liquid GT 40 meq BID [facility] Administration Spironolactone 100 mg 07/31/19 11:57 08/03/19 09:35 Aldactone - GT 100 mg DAILY [facility] Administration Topiramate 200 mg 07/31/19 11:58 08/03/19 06:23 Topamax - GT 200 mg TID [facility] Administration Zinc Sulfate 220 mg 07/31/19 12:13 08/03/19 09:35 Orazinc - GT 220 mg BID [facility] Administration Impression 1. hypokalemia 2. hypernatremia 3. resp failure 4. fungemia 5. covid 19 infection 6. ards 7. developemental delay 8. epilepsy 9. bactermia 10. resp acidosis with compensatory met alk Plan - replace potassium - cont lasix and aldactone - vent support - cont ICU care - monitor input/output
[2019-08-03] MEDS: ENOXAPARIN NA (PORCINE) 80 MG/0.8 ML DISP.SYRIN SQ SCH (17:51)
[2019-08-03] MEDS: KCL 10 MEQ IVPB 10 MEQ/100 ML INFUS.BAG IVPB SCH ×2 (17:51→21:37)
[2019-08-03] MEDS ORDERED: PROPOFOL 1,000,000 MCG/100 ML VIAL ONE (18:13)
[2019-08-03] MEDS: CHLORHEXIDINE GLUCONATE 4% CLEANSER FOR DECOLONIZATION TP SCH (21:37)
[2019-08-04] MEDS ORDERED: PT OWN MED DRAWER 7, Y5N ONE ×9 (02:13→20:57)
[2019-08-04] MEDS: VANCOMYCIN HCL 1,500 MG in DEXTROSE 5%-WATER - 500 ML IVPB SCH ×2 (02:58→14:14)
[2019-08-04] MEDS: FUROSEMIDE 40 MG/5 ML UNIT-DOSE CUP GT SCH ×2 (05:59→14:14)
[2019-08-04] MEDS: ENOXAPARIN NA (PORCINE) 80 MG/0.8 ML DISP.SYRIN SQ SCH ×2 (06:01→18:45)
[2019-08-04] MEDS: TOPIRAMATE 200 MG TABLET GT SCH ×3 (06:03→21:02)
[2019-08-04 06:33] LABS: ARTERIAL BLOOD GAS BASE EXCESS 6.4 mmol/L (-2-2); ARTERIAL BLOOD GAS PCO2 68.9 mmHg (35-45); ARTERIAL BLOOD GAS PO2 78.1 mmHg (80-100); ARTERIAL BLOOD GAS pH 7.31 (7.35-7.45)
[2019-08-04 06:34] LABS: ALLENS TEST POSITIVE
[2019-08-04 06:36] LABS: BLOOD UREA NITROGEN 9.4 mg/dL (7-18); CALCIUM 9.1 mg/dL (8.5-10.1); CREATININE 0.2 mg/dL (0.55-1.3); MAGNESIUM 1.8 mg/dL (1.8-2.4); PHOSPHOROUS 5.8 mg/dL (2.5-4.9)
[2019-08-04] MEDS: ZINC SULFATE 220 MG CAPSULE (FP) GT SCH ×2 (09:13→21:01)
[2019-08-04] MEDS: FAMOTIDINE 40 MG/5 ML ORAL SUSPENSION NR SCH (09:13)
[2019-08-04] MEDS: levETIRAcetam 500 MG/5 ML ORAL SOLUTION BULK GT SCH ×2 (09:13→21:36)
[2019-08-04] MEDS: PHENobarbital 20 MG/5 ML UNIT-DOSE CUP GT SCH ×2 (09:13→21:01)
[2019-08-04] MEDS: AMINO ACIDS/PROTEIN HYDROLYS 30 ML LIQUID.PKT GT SCH ×2 (09:13→18:45)
[2019-08-04] MEDS: CEFEPIME 2 GM in DEXTROSE 5%-WATER 100 ML IVPB SCH ×2 (09:13→18:44)
[2019-08-04] MEDS: SPIRONOLACTONE 25 MG TABLET GT SCH (09:13)
[2019-08-04] MEDS: POLYETHYLENE GLYCOL 3350 119 GM BTL GT SCH ×2 (09:13→21:35)
[2019-08-04] MEDS: POTASSIUM CHLORIDE ORAL LIQUID 20 MEQ/15 ML GT SCH ×2 (09:14→21:02)
[2019-08-04] MEDS: ASCORBIC ACID 500 MG/5 ML UNIT DOSE CUP GT SCH (09:14)
[2019-08-04] MEDS: Lacosamide 200 MG/20 ML VIAL IVPB SCH ×2 (09:14→21:02)
[2019-08-04] MEDS: CHOLECALCIFEROL (VIT D3) 400 UNIT (10 MCG) TABLET NR SCH (09:14)
[2019-08-04] MEDS: ACETAMINOPHEN 650 MG/20.3 ML ORAL SOLUTION (CUPS) GT PRN (14:23)
--- NOTE | 2019-08-04 14:25 | PN ---
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 (short form) - Note 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: remains intubated weaning oxygen now on 50% no fevers tachycardic today Vital Signs Period Temp Pulse Resp BP Sys/Ortiz Pulse Ox Last 24 Hr 98.5 F-101.6 F 113-149 22-40 97-121/45-64 91-95 cor-rrr lungs decreased bs at bases abd soft,nt ext no edema anthony CBC, BMP 08/03/19 10:40 08/04/19 06:00 Microbiology 07/31/19 17:25 Blood - Peripheral Venous Blood Culture - Final Staphylococcus Capitis 07/31/19 16:30 Blood - Peripheral Venous Blood Culture - Preliminary NO GROWTH OBTAINED AFTER 72 HOURS, INCUBATION TO CONTINUE FOR 2 DAYS. 08/01/19 11:55 Sputum - Endotrachea Suction/Ventilator Gram Stain - Final 08/01/19 11:55 Sputum - Endotrachea Suction/Ventilator Sputum Culture - Final S Aureus cxray unchanged vanco trough 14.9 covid pcr negative (repeat) quantiferon negative imp/reccd fever today- on vanco/cefepime (added 07/31)-reculture if fever recurs, please check cbc ?mrsa colonization - gram stain no polys ARDS/pneumonia- bacteremia- recurrent staph epi bacteremia- ?endocarditis- echo unrevealing- continue vancomycin, day #120-plan 6 weeks repeat blood culture positive one bottle- await ID-staph capitus- suspect contaminant fungemia- quita lusitanae- has completed 14 days cancidas- repeat cultures negative covid 19 positive -repeat pcr negative s/p convalescent plasma s/p tocilizumab MRSA isolation for positive sputum culture- esbl isolation for prior sputum ecoli esbl Problem List - Problems (1) Suspected COVID-19 virus infection Code(s): R68.89 - OTHER GENERAL SYMPTOMS AND SIGNS (2) Acute respiratory failure with hypoxia Code(s): J96.01 - ACUTE RESPIRATORY FAILURE WITH HYPOXIA (3) Bacteremia Code(s): R78.81 - BACTEREMIA
--- NOTE | 2019-08-04 14:53 | PN ---
Physical Exam: SUBJECTIVE: Patient seen and examined. Pt awake, cont sedation- propofol, morphine. Overnight 98.5 aFebrile and asymptomatic. On SIMV, will consider putting on cpap if pt tolerates. OBJECTIVE: Vital Signs Period Temp Pulse Resp BP Sys/Ortiz Pulse Ox Last 24 Hr 98.5 F-99.9 F 113-122 22-40 97-117/45-64 91-96 GENERAL: awake, and vented HEAD: Normal with no signs of trauma. EYES: PERRLA NECK: Trachea midline, supple, ETT in place. LUNGS:coarse breath sounds b/l HEART: Regular rate and rhythm. ABDOMEN: Soft, nontender, nondistended. : Caceres in place EXTREMITIES: warm, no edema. Laboratory Results - last 24 hr 08/03/19 08/04/19 08/04/19 23:45 06:00 06:10 Anticoagulation Therapy No Result Required. Puncture Site Left radial ABG pH 7.31 L ABG pCO2 at Pt Temp 68.9 H ABG pO2 at Pt Temp 78.1 L ABG HCO3 34 H ABG O2 Sat (Measured) 94.0 L ABG O2 Content No Result Required. ABG Base Excess 6.4 H Yousuf Test Positive Patient On Oxygen Yes O2 Delivery Device Vent Oxygen Flow Rate 50% Vent Mode A/c Vent Rate 38 Mechanical Rate Yes PEEP 5.0 Pressure Support Vent 280 Sodium 137 Potassium 4.1 4.0 Chloride 99 Carbon Dioxide 33 H Anion Gap 6 L BUN 9.4 Creatinine 0.2 L Est GFR (CKD-EPI)AfAm 232.19 Est GFR (CKD-EPI)NonAf 200.34 Random Glucose 136 H Calcium 9.1 Phosphorus 5.8 H Magnesium 1.8 Active Medications Generic Name Dose Route Start Last Admin Trade Name Freq PRN Reason Stop Dose Admin Acetaminophen 650 mg 07/31/19 11:33 08/04/19 14:23 Tylenol Oral Solution - GT 650 mg Q6H PRN Administration FEVER Amino Acids 30 ml 07/31/19 11:33 08/04/19 09:13 Prosource No Carb Liquid Pkt GT 30 ml BID@0800,1730 [facility] Administration Artificial Tears 1 drop 07/27/19 09:32 07/27/19 21:21 Artificial Tears OU 1 drop BID PRN Administration DRY EYES Ascorbic Acid 500 mg 07/31/19 11:35 08/04/19 09:14 Vitamin C Oral Solution - GT 500 mg DAILY [facility] Administration Chlorhexidine Gluconate 1 applic 06/22/19 22:00 08/03/19 21:37 Hibiclens For Decolonization - TP 1 applic HS [facility] Administration Cholecalciferol 800 unit 07/31/19 11:35 08/04/19 09:14 Vitamin D3 - NR 800 unit DAILY [facility] Administration Enoxaparin Sodium 80 mg 08/03/19 18:00 08/04/19 06:01 Lovenox - SQ 80 mg Q12H [facility] Administration Famotidine 40 mg 07/31/19 11:53 08/04/19 09:13 Pepcid NR 40 mg DAILY [facility] Administration Furosemide 40 mg 07/31/19 14:00 08/04/19 14:14 Lasix Oral Solution - GT 40 mg BID@0600,1400 [facility] Administration IV Flush 4 ml 07/18/19 18:26 Triple Lumen Flush IVPUSH PRN PRN Protocol Vecuronium [place] 100 mg in 100 mls @ 5.226 mls/hr 07/17/19 11:15 08/03/19 00:45 Vecuronium [place] IVPB 0 mcg/kg/min TITR [facility] 0 mls/hr Titration Protocol 1 MCG/KG/MIN Vancomycin HCl 1,500 mg/ 500 mls @ 250 mls/hr 07/21/19 02:00 08/04/19 14:14 Dextrose IVPB 250 mls/hr Q12H [facility] Administration Protocol Propofol 1,000,000 mcg in 100 mls @ 2.531 mls/hr 07/31/19 14:00 08/04/19 11:28 Diprivan - IVPB 40 mcg/kg/min TITR [facility] 20.248 mls/hr Titration Protocol 5 MCG/KG/MIN Morphine Sulfate 100 mg in 100 mls @ 1 mls/hr 07/31/19 14:00 08/04/19 11:28 Morphine 100mg/100ml-0.9% Nacl IVPB 10 mg/hr TITR [facility] 10 mls/hr Infusion Protocol 1 MG/HR Cefepime HCl 2 gm/ Dextrose 100 mls @ 200 mls/hr 08/01/19 11:45 08/04/19 09:13 IVPB 200 mls/hr Q8H-IV [facility] Administration Protocol Lacosamide 200 mg 07/31/19 11:52 08/04/19 09:14 Vimpat Injection - IVPB 200 mg BID [facility] Administration Levetiracetam 1,000 mg 07/31/19 11:51 08/04/19 09:13 Levetiracetam Oral Suspension GT 1,000 mg BID [facility] Administration Phenobarbital 60 mg 06/28/19 10:00 08/04/19 09:13 Phenobarbital Liquid - GT 60 mg BID [facility] Administration Polyethylene Glycol 17 gm 07/31/19 11:56 08/04/19 09:13 Miralax (For Daily Use) - GT Not Given BID [facility] Potassium Chloride 40 meq 07/31/19 11:56 08/04/19 09:14 Potassium Chloride Oral Liquid GT 40 meq BID [facility] Administration Spironolactone 100 mg 07/31/19 11:57 08/04/19 09:13 Aldactone - GT 100 mg DAILY [facility] Administration Topiramate 200 mg 07/31/19 11:58 08/04/19 14:14 Topamax - GT 200 mg TID [facility] Administration Zinc Sulfate 220 mg 07/31/19 12:13 08/04/19 09:13 Orazinc - GT 220 mg BID [facility] Administration ASSESSMENT/PLAN: 38M with PMH MR and epilepsy who presented to ED initially with SOB and hypoxia requiring intubation, admitted to hospital for hypoxic respiratory failure 2/2 to covid-19. NEURO wean as tolerated wakes intermittently and vented on morphine and prop -epilepsy continue Keppra, Topamax, Vimpat, and phenobarbitol PULM -Acute hypoxic respiratory failure 2/2 covid-19 intubated, s/p Plaquenil, convalescent plasma, and Actemra AC 38/280/50/5 wean FIO2 with goal SpO2 >90% on SIMV, pt not able to tolerate, placed back on AC, will likely need a trach P/F ratio worsening AB.31/68.9/78.1/34 CARDIO off pressors ID previous sputum esbl, s/p ryan, casopofungin fungemia-quita- s/p 14 days cancidas- repeat cultures negative bacteremia- BCx- staph capitis- sensitive to vanc sputum- MRSA- sensitive to vanc continue vancomycin D18- total of 6 weeks needed, cefepime D4 Renal hypokalemia BID NGT KCl 40mEq while on Lasix 40 BID IVP- will hold lasix due to tachycardia and to avoid excess volume loss- can consider resuming after reassessment in the am aldactone started by renal KCl given FEN diet continue tube feeds replete PRN PPX DVT Lovenox 80 BID GI ppx Protonix 40mg QD LTD ETT replaced 07/17 LSC TLC placed 07/17 removed today R radial A-line placed 07/17 DISPO: cont monitoring off sedation, off pressors, cont abx Visit type - Emergency Visit Emergency Visit: Yes ED Registration Date: 06/22/19 Care time: The patient presented to the Emergency Department on the above date and was hospitalized for further evaluation of their emergent condition. - New Patient This patient is new to me today: Yes Date on this admission: 09/02/19 - Critical Care Critical Care patient: No - Discharge Referral Referred to [facility] No ATTENDING PHYSICIAN STATEMENT I saw and evaluated the patient. I reviewed the resident's note and discussed the case with the resident. I agree with the resident's findings and plan as documented. SUBJECTIVE: OBJECTIVE: ASSESSMENT AND PLAN:
--- NOTE | 2019-08-04 17:36 | PN ---
Teaching Attending Note Name of Resident: Alfonzo Albright ATTENDING PHYSICIAN STATEMENT I saw and evaluated the patient. I reviewed the resident's note and discussed the case with the resident. I agree with the resident's findings and plan as documented. SUBJECTIVE: Patient seen and examined in the ICU. Remains intubated, awake off sedation. No pressors. Vented on volume assist control with 50% FiO2, PEEP 5. PPlat 28. PIP 29 OBJECTIVE: Intake & Output 08/01/19 08/02/19 08/03/19 08/04/19 23:59 23:59 23:59 23:59 Intake Total 3776 2858.4 2091.4 1297 Output Total 1600 3350 1750 2600 Balance 2176 -491.6 341.4 -1303 Weight 188 lb 8 oz 182 lb 14.4 oz 183 lb 14.4 oz 185 lb 8 oz Last Vital Signs Temp Pulse Resp BP Pulse Ox 101.6 F H 149 H 36 H 112/55 L 95 08/04/19 14:00 08/04/19 16:00 08/04/19 16:48 08/04/19 16:00 08/04/19 12:10 Active Medications Acetaminophen (Tylenol Oral Solution -) 650 mg GT Q6H PRN PRN Reason: FEVER Last Admin: 08/04/19 14:23 Dose: 650 mg Documented by: Amino Acids (Prosource No Carb Liquid Pkt) 30 ml GT BID@0800,1730 [facility] Last Admin: 08/04/19 09:13 Dose: 30 ml Documented by: Artificial Tears (Artificial Tears) 1 drop OU BID PRN PRN Reason: DRY EYES Last Admin: 07/27/19 21:21 Dose: 1 drop Documented by: Ascorbic Acid (Vitamin C Oral Solution -) 500 mg GT DAILY [facility] Last Admin: 08/04/19 09:14 Dose: 500 mg Documented by: Chlorhexidine Gluconate (Hibiclens For Decolonization -) 1 applic TP HS [facility] Last Admin: 08/03/19 21:37 Dose: 1 applic Documented by: Cholecalciferol (Vitamin D3 -) 800 unit NR DAILY [facility] Last Admin: 08/04/19 09:14 Dose: 800 unit Documented by: Enoxaparin Sodium (Lovenox -) 80 mg SQ Q12H [facility] Last Admin: 08/04/19 06:01 Dose: 80 mg Documented by: Famotidine (Pepcid) 40 mg NR DAILY [facility] Last Admin: 08/04/19 09:13 Dose: 40 mg Documented by: Furosemide (Lasix Oral Solution -) 40 mg GT BID@0600,1400 [facility] Last Admin: 08/04/19 14:14 Dose: 40 mg Documented by: IV Flush (Triple Lumen Flush) 4 ml IVPUSH PRN PRN PRN Reason: Protocol Vecuronium [place] (Vecuronium [place]) 100 mg in 100 mls @ 5.226 mls/hr IVPB TITR [facility]; Protocol Last Titration: 08/03/19 00:45 Dose: 0 mcg/kg/min, 0 mls/hr Documented by: Vancomycin HCl 1,500 mg/ (Dextrose) 500 mls @ 250 mls/hr IVPB Q12H [facility]; Protocol Last Admin: 08/04/19 14:14 Dose: 250 mls/hr Documented by: Propofol (Diprivan -) 1,000,000 mcg in 100 mls @ 2.531 mls/hr IVPB TITR [facility]; Protocol Last Titration: 08/04/19 11:28 Dose: 40 mcg/kg/min, 20.248 mls/hr Documented by: Morphine Sulfate (Morphine 100mg/100ml-0.9% Nacl) 100 mg in 100 mls @ 1 mls/hr IVPB TITR [facility]; Protocol Last Infusion: 08/04/19 11:28 Dose: 10 mg/hr, 10 mls/hr Documented by: Cefepime HCl 2 gm/ Dextrose 100 mls @ 200 mls/hr IVPB Q8H-IV [facility]; Protocol Last Admin: 08/04/19 09:13 Dose: 200 mls/hr Documented by: Lacosamide (Vimpat Injection -) 200 mg IVPB BID [facility] Last Admin: 08/04/19 09:14 Dose: 200 mg Documented by: Levetiracetam (Levetiracetam Oral Suspension) 1,000 mg GT BID [facility] Last Admin: 08/04/19 09:13 Dose: 1,000 mg Documented by: Phenobarbital (Phenobarbital Liquid -) 60 mg GT BID [facility] Last Admin: 08/04/19 09:13 Dose: 60 mg Documented by: Polyethylene Glycol (Miralax (For Daily Use) -) 17 gm GT BID [facility] Last Admin: 08/04/19 09:13 Dose: Not Given Documented by: Potassium Chloride (Potassium Chloride Oral Liquid) 40 meq GT BID [facility] Last Admin: 08/04/19 09:14 Dose: 40 meq Documented by: Spironolactone (Aldactone -) 100 mg GT DAILY [facility] Last Admin: 08/04/19 09:13 Dose: 100 mg Documented by: Topiramate (Topamax -) 200 mg GT TID [facility] Last Admin: 08/04/19 14:14 Dose: 200 mg Documented by: Zinc Sulfate (Orazinc -) 220 mg GT BID [facility] Last Admin: 08/04/19 09:13 Dose: 220 mg Documented by: Gen: intubated, awake Heart: RRR Lung: bilateral rhonchi Abd: soft, nontender Ext: + edema CBC, BMP 08/03/19 10:40 ABG Results ABG pH 7.39 (7.35-7.45) 08/03/19 10:45 ABG pCO2 at Pt Temp 59.7 mmHg (35-45) H 08/03/19 10:45 ABG pO2 at Pt Temp 77.1 mmHg (80-100) L 08/03/19 10:45 ABG HCO3 34.9 mmol/L (22-27) H 08/03/19 10:45 ABG O2 Sat (Measured) 98.6 % (95-98) H 08/03/19 10:45 ABG O2 Content No Result Required. 08/03/19 10:45 ABG Base Excess 8.3 mmol/L (-2-2) H 08/03/19 10:45 Active Medications Acetaminophen (Tylenol Oral Solution -) 650 mg GT Q6H PRN PRN Reason: FEVER Last Admin: 08/02/19 21:34 Dose: 650 mg Documented by: Amino Acids (Prosource No Carb Liquid Pkt) 30 ml GT BID@0800,1730 [facility] Last Admin: 08/03/19 09:35 Dose: 30 ml Documented by: Artificial Tears (Artificial Tears) 1 drop OU BID PRN PRN Reason: DRY EYES Last Admin: 07/27/19 21:21 Dose: 1 drop Documented by: Ascorbic Acid (Vitamin C Oral Solution -) 500 mg GT DAILY [facility] Last Admin: 08/03/19 09:54 Dose: 500 mg Documented by: Chlorhexidine Gluconate (Hibiclens For Decolonization -) 1 applic TP HS [facility] Last Admin: 08/02/19 21:37 Dose: 1 applic Documented by: Cholecalciferol (Vitamin D3 -) 800 unit NR DAILY [facility] Last Admin: 08/03/19 09:54 Dose: 800 unit Documented by: Enoxaparin Sodium (Lovenox -) 30 mg SQ Q12H [facility] Famotidine (Pepcid) 40 mg NR DAILY [facility] Last Admin: 08/03/19 10:24 Dose: 40 mg Documented by: Furosemide (Lasix Oral Solution -) 40 mg GT BID@0600,1400 [facility] Last Admin: 08/03/19 06:23 Dose: 40 mg Documented by: IV Flush (Triple Lumen Flush) 4 ml IVPUSH PRN PRN PRN Reason: Protocol Vecuronium [place] (Vecuronium [place]) 100 mg in 100 mls @ 5.226 mls/hr IVPB TITR [facility]; Protocol Last Titration: 08/03/19 00:45 Dose: 0 mcg/kg/min, 0 mls/hr Documented by: Vancomycin HCl 1,500 mg/ (Dextrose) 500 mls @ 250 mls/hr IVPB Q12H [facility]; Protocol Last Admin: 08/03/19 02:28 Dose: 250 mls/hr Documented by: Propofol (Diprivan -) 1,000,000 mcg in 100 mls @ 2.531 mls/hr IVPB TITR [facility]; Protocol Last Titration: 08/03/19 02:30 Dose: 40 mcg/kg/min, 20.248 mls/hr Documented by: Morphine Sulfate (Morphine 100mg/100ml-0.9% Nacl) 100 mg in 100 mls @ 1 mls/hr IVPB TITR [facility]; Protocol Last Admin: 08/02/19 13:32 Dose: 9 mg/hr, 9 mls/hr Documented by: Cefepime HCl 2 gm/ Dextrose 100 mls @ 200 mls/hr IVPB Q8H-IV [facility]; Protocol Last Admin: 08/03/19 09:51 Dose: 200 mls/hr Documented by: Lacosamide (Vimpat Injection -) 200 mg IVPB BID [facility] Last Admin: 08/03/19 09:37 Dose: 200 mg Documented by: Levetiracetam (Levetiracetam Oral Suspension) 1,000 mg GT BID [facility] Last Admin: 08/03/19 09:53 Dose: 1,000 mg Documented by: Phenobarbital (Phenobarbital Liquid -) 60 mg GT BID [facility] Last Admin: 08/03/19 09:38 Dose: 60 mg Documented by: Polyethylene Glycol (Miralax (For Daily Use) -) 17 gm GT BID [facility] Last Admin: 08/03/19 09:40 Dose: Not Given Documented by: Potassium Chloride (Potassium Chloride Oral Liquid) 40 meq GT BID [facility] Last Admin: 08/03/19 09:43 Dose: 40 meq Documented by: Spironolactone (Aldactone -) 100 mg GT DAILY [facility] Last Admin: 08/03/19 09:35 Dose: 100 mg Documented by: Topiramate (Topamax -) 200 mg GT TID [facility] Last Admin: 08/03/19 06:23 Dose: 200 mg Documented by: Zinc Sulfate (Orazinc -) 220 mg GT BID [facility] Last Admin: 08/03/19 09:35 Dose: 220 mg Documented by: ASSESSMENT AND PLAN: Acute Hypoxic and Hypercapneic Respiratory Failure COVID19 Pneumonia [place] Pneumonia Fungenmia Bacteremia Septic Shock Seizure Disorder Mental Retardation - continue antibiotics, antifungals per ID - continue antiepileptics - lasix, aldactone - monitor urine output, creatinine - low tidal volume ventilation - titrate FiO2, PEEP to keep SpO2 >90% - minimize sedation to assess mental status - Wean as tolerated - enteral feeds - DVT/GI prophylaxis - continue ICU monitoring - for tracheostomy end/next week if unable to wean further Dr Callaway critical care time spent in reviewing chart, evaluating patient and formulating plan 35 min
[2019-08-04] MEDS ORDERED: IBUPROFEN 600 MG TABLET (FP) PO ONE (18:10)
--- NOTE | 2019-08-04 18:31 | PN ---
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, Physician History of Present Illness: Pt seen and examined at bedside. He remains in the ICU. - Current Medication List Current Medications: Active Medications Acetaminophen (Tylenol Oral Solution -) 650 mg GT Q6H PRN PRN Reason: FEVER Last Admin: 08/04/19 14:23 Dose: 650 mg Documented by: Amino Acids (Prosource No Carb Liquid Pkt) 30 ml GT BID@0800,1730 [facility] Last Admin: 08/04/19 09:13 Dose: 30 ml Documented by: Artificial Tears (Artificial Tears) 1 drop OU BID PRN PRN Reason: DRY EYES Last Admin: 07/27/19 21:21 Dose: 1 drop Documented by: Ascorbic Acid (Vitamin C Oral Solution -) 500 mg GT DAILY [facility] Last Admin: 08/04/19 09:14 Dose: 500 mg Documented by: Chlorhexidine Gluconate (Hibiclens For Decolonization -) 1 applic TP HS [facility] Last Admin: 08/03/19 21:37 Dose: 1 applic Documented by: Cholecalciferol (Vitamin D3 -) 800 unit NR DAILY [facility] Last Admin: 08/04/19 09:14 Dose: 800 unit Documented by: Enoxaparin Sodium (Lovenox -) 80 mg SQ Q12H [facility] Last Admin: 08/04/19 06:01 Dose: 80 mg Documented by: Famotidine (Pepcid) 40 mg NR DAILY [facility] Last Admin: 08/04/19 09:13 Dose: 40 mg Documented by: Furosemide (Lasix Oral Solution -) 40 mg GT BID@0600,1400 [facility] Last Admin: 08/04/19 14:14 Dose: 40 mg Documented by: IV Flush (Triple Lumen Flush) 4 ml IVPUSH PRN PRN PRN Reason: Protocol Vecuronium [place] (Vecuronium [place]) 100 mg in 100 mls @ 5.226 mls/hr IVPB TITR [facility]; Protocol Last Titration: 08/03/19 00:45 Dose: 0 mcg/kg/min, 0 mls/hr Documented by: Vancomycin HCl 1,500 mg/ (Dextrose) 500 mls @ 250 mls/hr IVPB Q12H [facility]; Pr otocol Last Admin: 08/04/19 14:14 Dose: 250 mls/hr Documented by: Propofol (Diprivan -) 1,000,000 mcg in 100 mls @ 2.531 mls/hr IVPB TITR [facility]; Protocol Last Titration: 08/04/19 11:28 Dose: 40 mcg/kg/min, 20.248 mls/hr Documented by: Morphine Sulfate (Morphine 100mg/100ml-0.9% Nacl) 100 mg in 100 mls @ 1 mls/hr IVPB TITR [facility]; Protocol Last Infusion: 08/04/19 11:28 Dose: 10 mg/hr, 10 mls/hr Documented by: Cefepime HCl 2 gm/ Dextrose 100 mls @ 200 mls/hr IVPB Q8H-IV [facility]; Protocol Last Admin: 08/04/19 09:13 Dose: 200 mls/hr Documented by: Lacosamide (Vimpat Injection -) 200 mg IVPB BID [facility] Last Admin: 08/04/19 09:14 Dose: 200 mg Documented by: Levetiracetam (Levetiracetam Oral Suspension) 1,000 mg GT BID [facility] Last Admin: 08/04/19 09:13 Dose: 1,000 mg Documented by: Phenobarbital (Phenobarbital Liquid -) 60 mg GT BID [facility] Last Admin: 08/04/19 09:13 Dose: 60 mg Documented by: Polyethylene Glycol (Miralax (For Daily Use) -) 17 gm GT BID [facility] Last Admin: 08/04/19 09:13 Dose: Not Given Documented by: Potassium Chloride (Potassium Chloride Oral Liquid) 40 meq GT BID [facility] Last Admin: 08/04/19 09:14 Dose: 40 meq Documented by: Spironolactone (Aldactone -) 100 mg GT DAILY [facility] Last Admin: 08/04/19 09:13 Dose: 100 mg Documented by: Topiramate (Topamax -) 200 mg GT TID [facility] Last Admin: 08/04/19 14:14 Dose: 200 mg Documented by: Zinc Sulfate (Orazinc -) 220 mg GT BID [facility] Last Admin: 08/04/19 09:13 Dose: 220 mg Documented by: - Objective Vital Signs: Vital Signs Temperature 102.6 F H 08/04/19 16:30 Pulse Rate 149 H 08/04/19 16:00 Respiratory Rate 36 H 08/04/19 16:48 Blood Pressure 112/55 L 08/04/19 16:00 O2 Sat by Pulse Oximetry (%) 95 08/04/19 12:10 Constitutional: Yes: Calm Eyes: Yes: Conjunctiva Clear HENT: Yes: Atraumatic Cardiovascular: Yes: S1, S2 Respiratory: Yes: Mechanically Ventilated Gastrointestinal: Yes: Soft Genitourinary: Yes: Caceres Present Edema: LLE: Trace, RLE: Trace Neurological: Yes: Other (awake) Labs: CBC, BMP 08/03/19 10:40 08/04/19 06:00 INR, PTT INR 1.01 (0.83-1.09) 07/28/19 05:00 Problem List - Problems (1) Hypernatremia Code(s): E87.0 - HYPEROSMOLALITY AND HYPERNATREMIA (2) Hypokalemia Code(s): E87.6 - HYPOKALEMIA (3) Acute respiratory failure with hypoxia Code(s): J96.01 - ACUTE RESPIRATORY FAILURE WITH HYPOXIA (4) Bacteremia Code(s): R78.81 - BACTEREMIA Assessment/Plan Current Medications Generic Name Dose Route Start Last Admin Trade Name Freq PRN Reason Stop Dose Admin Acetaminophen 650 mg 07/31/19 11:33 08/04/19 14:23 Tylenol Oral Solution - GT 650 mg Q6H PRN Administration FEVER Amino Acids 30 ml 07/31/19 11:33 08/04/19 09:13 Prosource No Carb Liquid Pkt GT 30 ml BID@0800,1730 [facility] Administration Artificial Tears 1 drop 07/27/19 09:32 07/27/19 21:21 Artificial Tears OU 1 drop BID PRN Administration DRY EYES Ascorbic Acid 500 mg 07/31/19 11:35 08/04/19 09:14 Vitamin C Oral Solution - GT 500 mg DAILY [facility] Administration Chlorhexidine Gluconate 1 applic 06/22/19 22:00 08/03/19 21:37 Hibiclens For Decolonization - TP 1 applic HS [facility] Administration Cholecalciferol 800 unit 07/31/19 11:35 08/04/19 09:14 Vitamin D3 - NR 800 unit DAILY [facility] Administration Enoxaparin Sodium 80 mg 08/03/19 18:00 08/04/19 06:01 Lovenox - SQ 80 mg Q12H [facility] Administration Famotidine 40 mg 07/31/19 11:53 08/04/19 09:13 Pepcid NR 40 mg DAILY [facility] Administration Furosemide 40 mg 07/31/19 14:00 08/04/19 14:14 Lasix Oral Solution - GT 40 mg BID@0600,1400 [facility] Administration IV Flush 4 ml 07/18/19 18:26 Triple Lumen Flush IVPUSH PRN PRN Protocol Vecuronium [place] 100 mg in 100 mls @ 5.226 mls/hr 07/17/19 11:15 08/03/19 00:45 Vecuronium [place] IVPB 0 mcg/kg/min TITR [facility] 0 mls/hr Titration Protocol 1 MCG/KG/MIN Vancomycin HCl 1,500 mg/ 500 mls @ 250 mls/hr 07/21/19 02:00 08/04/19 14:14 Dextrose IVPB 250 mls/hr Q12H [facility] Administration Protocol Propofol 1,000,000 mcg in 100 mls @ 2.531 mls/hr 07/31/19 14:00 08/04/19 11:28 Diprivan - IVPB 40 mcg/kg/min TITR [facility] 20.248 mls/hr Titration Protocol 5 MCG/KG/MIN Morphine Sulfate 100 mg in 100 mls @ 1 mls/hr 07/31/19 14:00 08/04/19 11:28 Morphine 100mg/100ml-0.9% Nacl IVPB 10 mg/hr TITR [facility] 10 mls/hr Infusion Protocol 1 MG/HR Cefepime HCl 2 gm/ Dextrose 100 mls @ 200 mls/hr 08/01/19 11:45 08/04/19 09:13 IVPB 200 mls/hr Q8H-IV [facility] Administration Protocol Lacosamide 200 mg 07/31/19 11:52 08/04/19 09:14 Vimpat Injection - IVPB 200 mg BID [facility] Administration Levetiracetam 1,000 mg 07/31/19 11:51 08/04/19 09:13 Levetiracetam Oral Suspension GT 1,000 mg BID [facility] Administration Phenobarbital 60 mg 06/28/19 10:00 08/04/19 09:13 Phenobarbital Liquid - GT 60 mg BID [facility] Administration Polyethylene Glycol 17 gm 07/31/19 11:56 08/04/19 09:13 Miralax (For Daily Use) - GT Not Given BID [facility] Potassium Chloride 40 meq 07/31/19 11:56 08/04/19 09:14 Potassium Chloride Oral Liquid GT 40 meq BID [facility] Administration Spironolactone 100 mg 07/31/19 11:57 08/04/19 09:13 Aldactone - GT 100 mg DAILY [facility] Administration Topiramate 200 mg 07/31/19 11:58 08/04/19 14:14 Topamax - GT 200 mg TID [facility] Administration Zinc Sulfate 220 mg 07/31/19 12:13 08/04/19 09:13 Orazinc - GT 220 mg BID [facility] Administration Impression 1. hypokalemia 2. hypernatremia 3. resp failure 4. fungemia 5. covid 19 infection 6. ards 7. developemental delay 8. epilepsy 9. bactermia 10. resp acidosis with compensatory met alk Plan - potassium stable - repeat cxr in am - evaluate volume status before lasix tomorrow - pt already received lasix and aldactone today - discussed with ICU team - vent support - cont ICU care - monitor input/output
[2019-08-04] MEDS: CHLORHEXIDINE GLUCONATE 4% CLEANSER FOR DECOLONIZATION TP SCH (21:02)
[2019-08-04] MEDS: MORPHINE SULFATE/0.9% NACL/PF 100 MG/100 ML BAG IVPB SCH (23:09)
[2019-08-05] MEDS ORDERED: PT OWN MED DRAWER 7, Y5N ONE ×5 (01:22→17:40)
[2019-08-05] MEDS: CEFEPIME 2 GM in DEXTROSE 5%-WATER 100 ML IVPB SCH ×3 (01:26→17:48)
[2019-08-05] MEDS: VANCOMYCIN HCL 1,500 MG in DEXTROSE 5%-WATER - 500 ML IVPB SCH ×2 (01:27→13:07)
[2019-08-05] MEDS: PROPOFOL 1,000,000 MCG/100 ML VIAL IVPB SCH ×2 (04:22→21:00)
[2019-08-05] MEDS: TOPIRAMATE 200 MG TABLET GT SCH ×3 (05:24→21:00)
[2019-08-05] MEDS: ENOXAPARIN NA (PORCINE) 80 MG/0.8 ML DISP.SYRIN SQ SCH ×2 (05:25→17:48)
[2019-08-05 06:40] LABS: ARTERIAL BLOOD GAS PCO2 66.4 mmHg (35-45); ARTERIAL BLOOD GAS PO2 88.2 mmHg (80-100); ARTERIAL BLOOD GAS pH 7.29 (7.35-7.45)
[2019-08-05 06:41] LABS: ALLENS TEST POSITIVE; ARTERIAL BLD GAS O2 SATURATION 95.5 % (95-98); ARTERIAL BLOOD GAS BASE EXCESS 4.6 mmol/L (-2-2)
[2019-08-05 07:00] LABS: HEMATOCRIT 25.8 % (35.4-49); HEMOGLOBIN 8.4 GM/dL (11.7-16.9); MCH 29.8 pg (25.7-33.7); MCHC 32.5 g/dl (32.0-35.9); MEAN CELL VOLUME 91.5 fl (80-96); MEAN PLT VOLUME 8.4 fl (7.5-11.1); PLATELET COUNT 513 K/MM3 (134-434); RBC 2.82 M/mm3 (4.00-5.60); RDW 17.8 % (11.9-15.9); WHITE BLOOD COUNT 9.5 K/mm3 (4.0-10.0)
[2019-08-05] MEDS: SPIRONOLACTONE 25 MG TABLET GT SCH (09:42)
[2019-08-05] MEDS: AMINO ACIDS/PROTEIN HYDROLYS 30 ML LIQUID.PKT GT SCH ×2 (09:42→17:48)
[2019-08-05] MEDS: levETIRAcetam 500 MG/5 ML ORAL SOLUTION BULK GT SCH ×2 (09:42→20:59)
[2019-08-05] MEDS: POLYETHYLENE GLYCOL 3350 119 GM BTL GT SCH ×2 (09:42→21:01)
--- NOTE | 2019-08-05 09:42 | PN ---
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 (short form) - Note 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: remains intubated weaning oxygen now on 50% fever overnight and recultured Vital Signs Period Temp Pulse Resp BP Sys/Ortiz Pulse Ox Last 24 Hr 96.8 F-102.6 F 90-154 27-39 94-124/49-69 97-100 cor-rrr lungs decreased bs at bases abd soft,nt ext no edema +anthony CBC, BMP 08/05/19 05:40 08/04/19 06:00 Microbiology 07/31/19 16:30 Blood - Peripheral Venous Blood Culture - Preliminary NO GROWTH OBTAINED AFTER 96 HOURS, INCUBATION TO CONTINUE FOR 1 DAYS. cxray unchanged vanco trough 14.9 covid pcr negative (repeat) quantiferon negative imp/reccd fever today- on vanco/cefepime (added 07/31)-- cultures sent, consider ct scan head and sinuses- r/o sinusitis given recurrent fevers and prolonged intubation ?mrsa colonization - gram stain no polys ARDS/pneumonia- bacteremia- recurrent staph epi bacteremia- ?endocarditis- echo unrevealing- continue vancomycin, day #21-plan 6 weeks repeat blood culture positive one bottle- await ID-staph capitus- suspect contaminant fungemia- quita lusitanae- has completed 14 days cancidas- repeat cultures negative covid 19 positive -repeat pcr negative s/p convalescent plasma s/p tocilizumab MRSA isolation for positive sputum culture- esbl isolation for prior sputum ecoli esbl d/w ICU team Problem List - Problems (1) Suspected COVID-19 virus infection Code(s): R68.89 - OTHER GENERAL SYMPTOMS AND SIGNS (2) Acute respiratory failure with hypoxia Code(s): J96.01 - ACUTE RESPIRATORY FAILURE WITH HYPOXIA (3) Bacteremia Code(s): R78.81 - BACTEREMIA
[2019-08-05] MEDS: Lacosamide 200 MG/20 ML VIAL IVPB SCH ×2 (09:43→21:00)
[2019-08-05] MEDS: ZINC SULFATE 220 MG CAPSULE (FP) GT SCH ×2 (09:43→20:59)
[2019-08-05] MEDS: ASCORBIC ACID 500 MG/5 ML UNIT DOSE CUP GT SCH (09:43)
[2019-08-05] MEDS: POTASSIUM CHLORIDE ORAL LIQUID 20 MEQ/15 ML GT SCH ×2 (09:43→21:00)
[2019-08-05] MEDS: PHENobarbital 20 MG/5 ML UNIT-DOSE CUP GT SCH ×2 (09:43→20:59)
[2019-08-05] MEDS: FAMOTIDINE 40 MG/5 ML ORAL SUSPENSION NR SCH (09:43)
--- NOTE | 2019-08-05 10:45 | PN ---
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, Physician History of Present Illness: Pt seen and examined at bedside. He remains in the ICU. He remains intubated. - Current Medication List Current Medications: Active Medications Acetaminophen (Tylenol Oral Solution -) 650 mg GT Q6H PRN PRN Reason: FEVER Last Admin: 08/04/19 14:23 Dose: 650 mg Documented by: Amino Acids (Prosource No Carb Liquid Pkt) 30 ml GT BID@0800,1730 [facility] Last Admin: 08/05/19 09:42 Dose: 30 ml Documented by: Artificial Tears (Artificial Tears) 1 drop OU BID PRN PRN Reason: DRY EYES Last Admin: 07/27/19 21:21 Dose: 1 drop Documented by: Ascorbic Acid (Vitamin C Oral Solution -) 500 mg GT DAILY [facility] Last Admin: 08/05/19 09:43 Dose: 500 mg Documented by: Chlorhexidine Gluconate (Hibiclens For Decolonization -) 1 applic TP HS [facility] Last Admin: 08/04/19 21:02 Dose: 1 applic Documented by: Cholecalciferol (Vitamin D3 -) 800 unit NR DAILY [facility] Last Admin: 08/04/19 09:14 Dose: 800 unit Documented by: Enoxaparin Sodium (Lovenox -) 80 mg SQ Q12H [facility] Last Admin: 08/05/19 05:25 Dose: 80 mg Documented by: Famotidine (Pepcid) 40 mg NR DAILY [facility] Last Admin: 08/05/19 09:43 Dose: 40 mg Documented by: Furosemide (Lasix Oral Solution -) 40 mg GT BID@0600,1400 [facility] Last Admin: 08/04/19 14:14 Dose: 40 mg Documented by: IV Flush (Triple Lumen Flush) 4 ml IVPUSH PRN PRN PRN Reason: Protocol Vancomycin HCl 1,500 mg/ (Dextrose) 500 mls @ 250 mls/hr IVPB Q12H [facility]; Protocol Last Admin: 08/05/19 01:27 Dose: 250 mls/hr Documented by: Propofol (Diprivan -) 1,000,000 mcg in 100 mls @ 2.531 mls/hr IVPB TITR [facility]; Protocol Last Titration: 08/05/19 09:42 Dose: 40 mcg/kg/min, 20.248 mls/hr Documented by: Morphine Sulfate (Morphine 100mg/100ml-0.9% Nacl) 100 mg in 100 mls @ 1 mls/hr IVPB TITR [facility]; Protocol Last Infusion: 08/05/19 02:15 Dose: 5 mg/hr, 5 mls/hr Documented by: Cefepime HCl 2 gm/ Dextrose 100 mls @ 200 mls/hr IVPB Q8H-IV [facility]; Protocol Last Admin: 08/05/19 09:42 Dose: 200 mls/hr Documented by: Lacosamide (Vimpat Injection -) 200 mg IVPB BID [facility] Last Admin: 08/05/19 09:43 Dose: 200 mg Documented by: Levetiracetam (Levetiracetam Oral Suspension) 1,000 mg GT BID [facility] Last Admin: 08/05/19 09:42 Dose: 1,000 mg Documented by: Phenobarbital (Phenobarbital Liquid -) 60 mg GT BID [facility] Last Admin: 08/05/19 09:43 Dose: 60 mg Documented by: Polyethylene Glycol (Miralax (For Daily Use) -) 17 gm GT BID [facility] Last Admin: 08/05/19 09:42 Dose: Not Given Documented by: Potassium Chloride (Potassium Chloride Oral Liquid) 40 meq GT BID [facility] Last Admin: 08/05/19 09:43 Dose: 40 meq Documented by: Spironolactone (Aldactone -) 100 mg GT DAILY [facility] Last Admin: 08/05/19 09:42 Dose: 100 mg Documented by: Topiramate (Topamax -) 200 mg GT TID [facility] Last Admin: 08/05/19 05:24 Dose: 200 mg Documented by: Zinc Sulfate (Orazinc -) 220 mg GT BID [facility] Last Admin: 08/05/19 09:43 Dose: 220 mg Documented by: - Objective Vital Signs: Vital Signs Temperature 99.3 F 08/05/19 08:00 Pulse Rate 128 H 08/05/19 08:00 Respiratory Rate 36 H 08/05/19 08:47 Blood Pressure 122/66 08/05/19 08:00 O2 Sat by Pulse Oximetry (%) 97 08/05/19 08:47 Constitutional: Yes: Calm Eyes: Yes: Conjunctiva Clear HENT: Yes: Atraumatic Cardiovascular: Yes: S1, S2 Respiratory: Yes: Mechanically Ventilated Gastrointestinal: Yes: Soft Musculoskeletal: Yes: Muscle Weakness Edema: Yes Edema: LUE: Trace, RUE: Trace, LLE: Trace, RLE: Trace Neurological: Yes: Lethargy Labs: CBC, BMP 08/05/19 05:40 08/04/19 06:00 INR, PTT INR 1.01 (0.83-1.09) 07/28/19 05:00 Problem List - Problems (1) Hypernatremia Code(s): E87.0 - HYPEROSMOLALITY AND HYPERNATREMIA (2) Hypokalemia Code(s): E87.6 - HYPOKALEMIA (3) Acute respiratory failure with hypoxia Code(s): J96.01 - ACUTE RESPIRATORY FAILURE WITH HYPOXIA (4) Bacteremia Code(s): R78.81 - BACTEREMIA Assessment/Plan Current Medications Generic Name Dose Route Start Last Admin Trade Name Freq PRN Reason Stop Dose Admin Acetaminophen 650 mg 07/31/19 11:33 08/04/19 14:23 Tylenol Oral Solution - GT 650 mg Q6H PRN Administration FEVER Amino Acids 30 ml 07/31/19 11:33 08/05/19 09:42 Prosource No Carb Liquid Pkt GT 30 ml BID@0800,1730 [facility] Administration Artificial Tears 1 drop 07/27/19 09:32 07/27/19 21:21 Artificial Tears OU 1 drop BID PRN Administration DRY EYES Ascorbic Acid 500 mg 07/31/19 11:35 08/05/19 09:43 Vitamin C Oral Solution - GT 500 mg DAILY [facility] Administration Chlorhexidine Gluconate 1 applic 06/22/19 22:00 08/04/19 21:02 Hibiclens For Decolonization - TP 1 applic HS [facility] Administration Cholecalciferol 800 unit 07/31/19 11:35 08/04/19 09:14 Vitamin D3 - NR 800 unit DAILY [facility] Administration Enoxaparin Sodium 80 mg 08/03/19 18:00 08/05/19 05:25 Lovenox - SQ 80 mg Q12H [facility] Administration Famotidine 40 mg 07/31/19 11:53 08/05/19 09:43 Pepcid NR 40 mg DAILY [facility] Administration Furosemide 40 mg 07/31/19 14:00 08/04/19 14:14 Lasix Oral Solution - GT 40 mg BID@0600,1400 [facility] Administration IV Flush 4 ml 07/18/19 18:26 Triple Lumen Flush IVPUSH PRN PRN Protocol Vancomycin HCl 1,500 mg/ 500 mls @ 250 mls/hr 07/21/19 02:00 08/05/19 01:27 Dextrose IVPB 250 mls/hr Q12H [facility] Administration Protocol Propofol 1,000,000 mcg in 100 mls @ 2.531 mls/hr 07/31/19 14:00 08/05/19 09:42 Diprivan - IVPB 40 mcg/kg/min TITR [facility] 20.248 mls/hr Titration Protocol 5 MCG/KG/MIN Morphine Sulfate 100 mg in 100 mls @ 1 mls/hr 07/31/19 14:00 08/05/19 02:15 Morphine 100mg/100ml-0.9% Nacl IVPB 5 mg/hr TITR [facility] 5 mls/hr Infusion Protocol 1 MG/HR Cefepime HCl 2 gm/ Dextrose 100 mls @ 200 mls/hr 08/01/19 11:45 08/05/19 09:42 IVPB 200 mls/hr Q8H-IV [facility] Administration Protocol Lacosamide 200 mg 07/31/19 11:52 08/05/19 09:43 Vimpat Injection - IVPB 200 mg BID [facility] Administration Levetiracetam 1,000 mg 07/31/19 11:51 08/05/19 09:42 Levetiracetam Oral Suspension GT 1,000 mg BID [facility] Administration Phenobarbital 60 mg 06/28/19 10:00 08/05/19 09:43 Phenobarbital Liquid - GT 60 mg BID [facility] Administration Polyethylene Glycol 17 gm 07/31/19 11:56 08/05/19 09:42 Miralax (For Daily Use) - GT Not Given BID [facility] Potassium Chloride 40 meq 07/31/19 11:56 08/05/19 09:43 Potassium Chloride Oral Liquid GT 40 meq BID [facility] Administration Spironolactone 100 mg 07/31/19 11:57 08/05/19 09:42 Aldactone - GT 100 mg DAILY [facility] Administration Topiramate 200 mg 07/31/19 11:58 08/05/19 05:24 Topamax - GT 200 mg TID [facility] Administration Zinc Sulfate 220 mg 07/31/19 12:13 08/05/19 09:43 Orazinc - GT 220 mg BID [facility] Administration Impression 1. hypokalemia 2. hypernatremia 3. resp failure 4. fungemia 5. covid 19 infection 6. ards 7. developemental delay 8. epilepsy 9. bactermia 10. resp acidosis with compensatory met alk Plan - volume status is improving - follow cxr - discussed with ICU team - can cont standing order of aldactone to help with hypokalemia - monitor lytes closely - lasix dose held this morning - pt making urine - vent support - cont ICU care - monitor input/output
--- NOTE | 2019-08-05 11:59 | PN ---
Teaching Attending Note Name of Resident: Alfonzo Albright ATTENDING PHYSICIAN STATEMENT I saw and evaluated the patient. I reviewed the resident's note and discussed the case with the resident. I agree with the resident's findings and plan as documented. SUBJECTIVE: Patient seen and examined in the ICU. Remains intubated, awake off sedation. No pressors. Vented on volume assist control with 50% FiO2, PEEP 5. Failure to wean due to poor lung mechanics. PPlat 28. PIP 30 OBJECTIVE: Intake & Output 08/02/19 08/03/19 08/04/19 08/05/19 23:59 23:59 23:59 23:59 Intake Total 2858.4 2091.4 1297 902.4 Output Total 3350 1750 2600 1200 Balance -491.6 341.4 -1303 -297.6 Weight 182 lb 14.4 oz 183 lb 14.4 oz 185 lb 8 oz Last Vital Signs Temp Pulse Resp BP Pulse Ox 99.2 F 130 H 36 H 115/62 97 08/05/19 10:00 08/05/19 10:00 08/05/19 10:00 08/05/19 10:00 08/05/19 09:00 Active Medications Acetaminophen (Tylenol Oral Solution -) 650 mg GT Q6H PRN PRN Reason: FEVER Last Admin: 08/04/19 14:23 Dose: 650 mg Documented by: Amino Acids (Prosource No Carb Liquid Pkt) 30 ml GT BID@0800,1730 [facility] Last Admin: 08/05/19 09:42 Dose: 30 ml Documented by: Artificial Tears (Artificial Tears) 1 drop OU BID PRN PRN Reason: DRY EYES Last Admin: 07/27/19 21:21 Dose: 1 drop Documented by: Ascorbic Acid (Vitamin C Oral Solution -) 500 mg GT DAILY [facility] Last Admin: 08/05/19 09:43 Dose: 500 mg Documented by: Chlorhexidine Gluconate (Hibiclens For Decolonization -) 1 applic TP HS [facility] Last Admin: 08/04/19 21:02 Dose: 1 applic Documented by: Cholecalciferol (Vitamin D3 -) 800 unit NR DAILY [facility] Last Admin: 08/04/19 09:14 Dose: 800 unit Documented by: Enoxaparin Sodium (Lovenox -) 80 mg SQ Q12H [facility] Last Admin: 08/05/19 05:25 Dose: 80 mg Documented by: Famotidine (Pepcid) 40 mg NR DAILY [facility] Last Admin: 08/05/19 09:43 Dose: 40 mg Documented by: Furosemide (Lasix Oral Solution -) 40 mg GT BID@0600,1400 [facility] Last Admin: 08/04/19 14:14 Dose: 40 mg Documented by: IV Flush (Triple Lumen Flush) 4 ml IVPUSH PRN PRN PRN Reason: Protocol Vancomycin HCl 1,500 mg/ (Dextrose) 500 mls @ 250 mls/hr IVPB Q12H [facility]; Protocol Last Admin: 08/05/19 01:27 Dose: 250 mls/hr Documented by: Propofol (Diprivan -) 1,000,000 mcg in 100 mls @ 2.531 mls/hr IVPB TITR [facility]; Protocol Last Titration: 08/05/19 10:30 Dose: 40 mcg/kg/min, 20.248 mls/hr Documented by: Morphine Sulfate (Morphine 100mg/100ml-0.9% Nacl) 100 mg in 100 mls @ 1 mls/hr IVPB TITR [facility]; Protocol Last Infusion: 08/05/19 11:04 Dose: 10 mg/hr, 10 mls/hr Documented by: Cefepime HCl 2 gm/ Dextrose 100 mls @ 200 mls/hr IVPB Q8H-IV [facility]; Protocol Last Admin: 08/05/19 09:42 Dose: 200 mls/hr Documented by: Lacosamide (Vimpat Injection -) 200 mg IVPB BID [facility] Last Admin: 08/05/19 09:43 Dose: 200 mg Documented by: Levetiracetam (Levetiracetam Oral Suspension) 1,000 mg GT BID [facility] Last Admin: 08/05/19 09:42 Dose: 1,000 mg Documented by: Phenobarbital (Phenobarbital Liquid -) 60 mg GT BID [facility] Last Admin: 08/05/19 09:43 Dose: 60 mg Documented by: Polyethylene Glycol (Miralax (For Daily Use) -) 17 gm GT BID [facility] Last Admin: 08/05/19 09:42 Dose: Not Given Documented by: Potassium Chloride (Potassium Chloride Oral Liquid) 40 meq GT BID [facility] Last Admin: 08/05/19 09:43 Dose: 40 meq Documented by: Spironolactone (Aldactone -) 100 mg GT DAILY [facility] Last Admin: 08/05/19 09:42 Dose: 100 mg Documented by: Topiramate (Topamax -) 200 mg GT TID [facility] Last Admin: 08/05/19 05:24 Dose: 200 mg Documented by: Zinc Sulfate (Orazinc -) 220 mg GT BID [facility] Last Admin: 08/05/19 09:43 Dose: 220 mg Documented by: Gen: intubated, awake Heart: RRR Lung: bilateral coarse rhonchi Abd: soft, nontender Ext: + edema Laboratory Results - last 24 hr 08/05/19 08/05/19 05:40 06:15 WBC 9.5 RBC 2.82 L Hgb 8.4 L Hct 25.8 L MCV 91.5 MCH 29.8 MCHC 32.5 RDW 17.8 H Plt Count 513 H MPV 8.4 Anticoagulation Therapy No Result Required. Puncture Site Right radial ABG pH 7.29 L ABG pCO2 at Pt Temp 66.4 H ABG pO2 at Pt Temp 88.2 ABG HCO3 31.9 H ABG O2 Sat (Measured) 95.5 ABG O2 Content No Result Required. ABG Base Excess 4.6 H Yousuf Test Positive Patient On Oxygen Unk O2 Delivery Device Vent Oxygen Flow Rate 60 Vent Mode Vent Vent Rate 30 Mechanical Rate No Result Required. PEEP 5.0 Pressure Support Vent 280 ASSESSMENT AND PLAN: Acute Hypoxic and Hypercapneic Respiratory Failure COVID19 Pneumonia E Coli Pneumonia Fungenmia Bacteremia Septic Shock Seizure Disorder Mental Retardation - continue antibiotics, antifungals per ID - continue antiepileptics - lasix, aldactone - monitor urine output, creatinine - low tidal volume ventilation - titrate FiO2, PEEP to keep SpO2 >90% - minimize sedation to assess mental status - Wean as tolerated - enteral feeds - DVT/GI prophylaxis - continue ICU monitoring - Will schedule for tracheostomy end of this week / early next week Dr Callaway critical care time spent in reviewing chart, evaluating patient and formulating plan 35 min
--- NOTE | 2019-08-05 12:38 | PN ---
Physical Exam: SUBJECTIVE: Patient seen and examined OBJECTIVE: Vital Signs Period Temp Pulse Resp BP Sys/Ortiz Pulse Ox Last 24 Hr 96.8 F-102.6 F 90-154 27-39 94-124/49-69 97-100 GENERAL: The patient is awake, alert, and fully oriented, in no acute distress. HEAD: Normal with no signs of trauma. EYES: PERRL, extraocular movements intact, sclera anicteric, conjunctiva clear. No ptosis. ENT: Ears normal, nares patent, oropharynx clear without exudates, moist mucous membranes. NECK: Trachea midline, full range of motion, supple. LUNGS: Breath sounds equal, clear to auscultation bilaterally, no wheezes, no crackles, no accessory muscle use. HEART: Regular rate and rhythm, S1, S2 without murmur, rub or gallop. ABDOMEN: Soft, nontender, nondistended, normoactive bowel sounds, no guarding, no rebound, no hepatosplenomegaly, no masses. EXTREMITIES: 2+ pulses, warm, well-perfused, no edema. NEUROLOGICAL: Cranial nerves II through XII grossly intact. Normal speech, gait not observed. PSYCH: Normal mood, normal affect. SKIN: Warm, dry, normal turgor, no rashes or lesions noted Laboratory Results - last 24 hr 08/05/19 08/05/19 05:40 06:15 WBC 9.5 RBC 2.82 L Hgb 8.4 L Hct 25.8 L MCV 91.5 MCH 29.8 MCHC 32.5 RDW 17.8 H Plt Count 513 H MPV 8.4 Anticoagulation Therapy No Result Required. Puncture Site Right radial ABG pH 7.29 L ABG pCO2 at Pt Temp 66.4 H ABG pO2 at Pt Temp 88.2 ABG HCO3 31.9 H ABG O2 Sat (Measured) 95.5 ABG O2 Content No Result Required. ABG Base Excess 4.6 H Yousuf Test Positive Patient On Oxygen Unk O2 Delivery Device Vent Oxygen Flow Rate 60 Vent Mode Vent Vent Rate 30 Mechanical Rate No Result Required. PEEP 5.0 Pressure Support Vent 280 Active Medications Generic Name Dose Route Start Last Admin Trade Name Freq PRN Reason Stop Dose Admin Acetaminophen 650 mg 07/31/19 11:33 08/04/19 14:23 Tylenol Oral Solution - GT 650 mg Q6H PRN Administration FEVER Amino Acids 30 ml 07/31/19 11:33 08/05/19 09:42 Prosource No Carb Liquid Pkt GT 30 ml BID@0800,1730 TIKI Administration Artificial Tears 1 drop 07/27/19 09:32 07/27/19 21:21 Artificial Tears OU 1 drop BID PRN Administration DRY EYES Ascorbic Acid 500 mg 07/31/19 11:35 08/05/19 09:43 Vitamin C Oral Solution - GT 500 mg DAILY TIKI Administration Chlorhexidine Gluconate 1 applic 06/22/19 22:00 08/04/19 21:02 Hibiclens For Decolonization - TP 1 applic HS TIKI Administration Cholecalciferol 800 unit 07/31/19 11:35 08/04/19 09:14 Vitamin D3 - NR 800 unit DAILY TIKI Administration Enoxaparin Sodium 80 mg 08/03/19 18:00 08/05/19 05:25 Lovenox - SQ 80 mg Q12H TIKI Administration Famotidine 40 mg 07/31/19 11:53 08/05/19 09:43 Pepcid NR 40 mg DAILY TIKI Administration Furosemide 40 mg 07/31/19 14:00 08/04/19 14:14 Lasix Oral Solution - GT 40 mg BID@0600,1400 TIKI Administration IV Flush 4 ml 07/18/19 18:26 Triple Lumen Flush IVPUSH PRN PRN Protocol Vancomycin HCl 1,500 mg/ 500 mls @ 250 mls/hr 07/21/19 02:00 08/05/19 01:27 Dextrose IVPB 250 mls/hr Q12H TIKI Administration Protocol Propofol 1,000,000 mcg in 100 mls @ 2.531 mls/hr 07/31/19 14:00 08/05/19 10:30 Diprivan - IVPB 40 mcg/kg/min TITR TIKI 20.248 mls/hr Titration Protocol 5 MCG/KG/MIN Morphine Sulfate 100 mg in 100 mls @ 1 mls/hr 07/31/19 14:00 08/05/19 11:04 Morphine 100mg/100ml-0.9% Nacl IVPB 10 mg/hr TITR TIKI 10 mls/hr Infusion Protocol 1 MG/HR Cefepime HCl 2 gm/ Dextrose 100 mls @ 200 mls/hr 08/01/19 11:45 08/05/19 09:42 IVPB 200 mls/hr Q8H-IV TIKI Administration Protocol Lacosamide 200 mg 07/31/19 11:52 08/05/19 09:43 Vimpat Injection - IVPB 200 mg BID TIKI Administration Levetiracetam 1,000 mg 07/31/19 11:51 08/05/19 09:42 Levetiracetam Oral Suspension GT 1,000 mg BID TIKI Administration Phenobarbital 60 mg 06/28/19 10:00 08/05/19 09:43 Phenobarbital Liquid - GT 60 mg BID TIKI Administration Polyethylene Glycol 17 gm 07/31/19 11:56 08/05/19 09:42 Miralax (For Daily Use) - GT Not Given BID TIKI Potassium Chloride 40 meq 07/31/19 11:56 08/05/19 09:43 Potassium Chloride Oral Liquid GT 40 meq BID TIKI Administration Spironolactone 100 mg 07/31/19 11:57 08/05/19 09:42 Aldactone - GT 100 mg DAILY TIKI Administration Topiramate 200 mg 07/31/19 11:58 08/05/19 05:24 Topamax - GT 200 mg TID TIKI Administration Zinc Sulfate 220 mg 07/31/19 12:13 08/05/19 09:43 Orazinc - GT 220 mg BID TIKI Administration ASSESSMENT/PLAN: ATTENDING PHYSICIAN STATEMENT I saw and evaluated the patient. I reviewed the resident's note and discussed the case with the resident. I agree with the resident's findings and plan as documented. SUBJECTIVE: OBJECTIVE: ASSESSMENT AND PLAN:
[2019-08-05] MEDS: CHOLECALCIFEROL (VIT D3) 400 UNIT (10 MCG) TABLET NR SCH (13:07)
[2019-08-05] MEDS: ACETAMINOPHEN 650 MG/20.3 ML ORAL SOLUTION (CUPS) GT PRN (13:07)
--- NOTE | 2019-08-05 13:10 | PN ---
Physical Exam: SUBJECTIVE: Patient seen and examined. Pt awake, cont sedation- propofol, morphine. Overnight Febrile 102F, BCx sent, on Abx, placed cooling blankets. Vented and sedated. OBJECTIVE: Vital Signs Period Temp Pulse Resp BP Sys/Ortiz Pulse Ox Last 24 Hr 96.8 F-102.6 F 90-154 27-39 94-124/49-69 97-100 GENERAL: awake, and vented HEAD: Normal with no signs of trauma. EYES: PERRLA NECK: Trachea midline, supple, ETT in place. LUNGS:coarse breath sounds b/l HEART: Regular rate and rhythm. ABDOMEN: Soft, nontender, nondistended. : Caceres in place EXTREMITIES: warm, no edema. Laboratory Results - last 24 hr 08/05/19 08/05/19 05:40 06:15 WBC 9.5 RBC 2.82 L Hgb 8.4 L Hct 25.8 L MCV 91.5 MCH 29.8 MCHC 32.5 RDW 17.8 H Plt Count 513 H MPV 8.4 Anticoagulation Therapy No Result Required. Puncture Site Right radial ABG pH 7.29 L ABG pCO2 at Pt Temp 66.4 H ABG pO2 at Pt Temp 88.2 ABG HCO3 31.9 H ABG O2 Sat (Measured) 95.5 ABG O2 Content No Result Required. ABG Base Excess 4.6 H Yousuf Test Positive Patient On Oxygen Unk O2 Delivery Device Vent Oxygen Flow Rate 60 Vent Mode Vent Vent Rate 30 Mechanical Rate No Result Required. PEEP 5.0 Pressure Support Vent 280 Active Medications Generic Name Dose Route Start Last Admin Trade Name Robin PRN Reason Stop Dose Admin Acetaminophen 650 mg 07/31/19 11:33 08/04/19 14:23 Tylenol Oral Solution - GT 650 mg Q6H PRN Administration FEVER Amino Acids 30 ml 07/31/19 11:33 08/05/19 09:42 Prosource No Carb Liquid Pkt GT 30 ml BID@0800,1730 TIKI Administration Artificial Tears 1 drop 07/27/19 09:32 07/27/19 21:21 Artificial Tears OU 1 drop BID PRN Administration DRY EYES Ascorbic Acid 500 mg 07/31/19 11:35 08/05/19 09:43 Vitamin C Oral Solution - GT 500 mg DAILY TIKI Administration Chlorhexidine Gluconate 1 applic 06/22/19 22:00 06/02/20 21:02 Hibiclens For Decolonization - TP 1 applic HS TIKI Administration Cholecalciferol 800 unit 07/31/19 11:35 08/04/19 09:14 Vitamin D3 - NR 800 unit DAILY TIKI Administration Enoxaparin Sodium 80 mg 08/03/19 18:00 08/05/19 05:25 Lovenox - SQ 80 mg Q12H TIKI Administration Famotidine 40 mg 07/31/19 11:53 08/05/19 09:43 Pepcid NR 40 mg DAILY TIKI Administration Furosemide 40 mg 07/31/19 14:00 08/04/19 14:14 Lasix Oral Solution - GT 40 mg BID@0600,1400 TIKI Administration IV Flush 4 ml 07/18/19 18:26 Triple Lumen Flush IVPUSH PRN PRN Protocol Vancomycin HCl 1,500 mg/ 500 mls @ 250 mls/hr 07/21/19 02:00 08/05/19 01:27 Dextrose IVPB 250 mls/hr Q12H TIKI Administration Protocol Propofol 1,000,000 mcg in 100 mls @ 2.531 mls/hr 07/31/19 14:00 08/05/19 10:30 Diprivan - IVPB 40 mcg/kg/min TITR TIKI 20.248 mls/hr Titration Protocol 5 MCG/KG/MIN Morphine Sulfate 100 mg in 100 mls @ 1 mls/hr 07/31/19 14:00 08/05/19 11:04 Morphine 100mg/100ml-0.9% Nacl IVPB 10 mg/hr TITR TIKI 10 mls/hr Infusion Protocol 1 MG/HR Cefepime HCl 2 gm/ Dextrose 100 mls @ 200 mls/hr 08/01/19 11:45 08/05/19 09:42 IVPB 200 mls/hr Q8H-IV TIKI Administration Protocol Lacosamide 200 mg 07/31/19 11:52 08/05/19 09:43 Vimpat Injection - IVPB 200 mg BID TIKI Administration Levetiracetam 1,000 mg 07/31/19 11:51 08/05/19 09:42 Levetiracetam Oral Suspension GT 1,000 mg BID TIKI Administration Phenobarbital 60 mg 06/28/19 10:00 08/05/19 09:43 Phenobarbital Liquid - GT 60 mg BID TIKI Administration Polyethylene Glycol 17 gm 07/31/19 11:56 08/05/19 09:42 Miralax (For Daily Use) - GT Not Given BID [facility] Potassium Chloride 40 meq 07/31/19 11:56 08/05/19 09:43 Potassium Chloride Oral Liquid GT 40 meq BID TIKI Administration Spironolactone 100 mg 07/31/19 11:57 08/05/19 09:42 Aldactone - GT 100 mg DAILY TIKI Administration Topiramate 200 mg 07/31/19 11:58 08/05/19 05:24 Topamax - GT 200 mg TID TIKI Administration Zinc Sulfate 220 mg 07/31/19 12:13 08/05/19 09:43 Orazinc - GT 220 mg BID TIKI Administration ASSESSMENT/PLAN: 38M with PMH MR and epilepsy who presented to ED initially with SOB and hypoxia requiring intubation, admitted to hospital for hypoxic respiratory failure 2/2 to covid-19. #NEURO wakes intermittently and vented + Sedated on morphine and prop -epilepsy continue Keppra, Topamax, Vimpat, and phenobarbitol #PULM -Acute hypoxic respiratory failure 2/2 covid-19 intubated, s/p Plaquenil, convalescent plasma, and Actemra AC 30/280/60/5 wean FIO2 with goal SpO2 >90% On AC, will likely need a trach, consent obtained, tentatively for Saturday P/F ratio improved slightly AB.29/66.4/88.2/31.9 #CARDIO off pressors #ID previous sputum esbl, s/p ryan, casopofungin fungemia-quita- s/p 14 days cancidas- repeat cultures negative bacteremia- BCx- staph capitis- sensitive to vanc New Bcx pending sputum- MRSA- sensitive to vanc continue vancomycin D19- total of 6 weeks needed, cefepime D5 #Renal hypokalemia BID NGT KCl 40mEq while on Lasix 40 BID IVP- will hold lasix due to tachycardia and to avoid excess volume loss- can consider resuming after reassessment in the am aldactone started by renal will give a dose today to dry pt up for possible trach on saturday #FEN diet continue tube feeds replete PRN #PPX DVT Lovenox 80 BID #GI ppx Protonix 40mg QD LTD ETT replaced 07/17 LSC TLC placed 07/17 removed today R radial A-line placed 07/17 DISPO: cont monitoring off sedation, off pressors, cont abx Visit type - Emergency Visit Emergency Visit: Yes ED Registration Date: 06/22/19 Care time: The patient presented to the Emergency Department on the above date and was hospitalized for further evaluation of their emergent condition. - New Patient This patient is new to me today: Yes Date on this admission: 09/02/19 - Critical Care Critical Care patient: No - Discharge Referral Referred to [facility] No ATTENDING PHYSICIAN STATEMENT I saw and evaluated the patient. I reviewed the resident's note and discussed the case with the resident. I agree with the resident's findings and plan as documented. SUBJECTIVE: OBJECTIVE: ASSESSMENT AND PLAN:
[2019-08-05] MEDS ORDERED: SPIRONOLACTONE 25 MG TABLET PO ONE (19:30)
[2019-08-05] MEDS: CHLORHEXIDINE GLUCONATE 4% CLEANSER FOR DECOLONIZATION TP SCH (20:59)
[2019-08-06] MEDS: MORPHINE SULFATE/0.9% NACL/PF 100 MG/100 ML BAG IVPB SCH ×4 (01:34→21:33)
[2019-08-06] MEDS: PROPOFOL 1,000,000 MCG/100 ML VIAL IVPB SCH ×5 (01:35→23:36)
[2019-08-06] MEDS ORDERED: PT OWN MED DRAWER 7, Y5N ONE ×6 (01:37→21:09)
[2019-08-06] MEDS: CEFEPIME 2 GM in DEXTROSE 5%-WATER 100 ML IVPB SCH ×4 (01:39→17:28)
[2019-08-06] MEDS: VANCOMYCIN HCL 1,500 MG in DEXTROSE 5%-WATER - 500 ML IVPB SCH ×2 (01:41→16:13)
[2019-08-06] MEDS: TOPIRAMATE 200 MG TABLET GT SCH ×3 (05:14→21:10)
[2019-08-06] MEDS: ENOXAPARIN NA (PORCINE) 80 MG/0.8 ML DISP.SYRIN SQ SCH (05:14)
[2019-08-06 06:17] LABS: BILIRUBIN,TOTAL 0.3 mg/dL (0.2-1); BLOOD UREA NITROGEN 8.7 mg/dL (7-18); CALCIUM 9.2 mg/dL (8.5-10.1); CREATININE 0.2 mg/dL (0.55-1.3); MAGNESIUM 1.9 mg/dL (1.8-2.4); PHOSPHOROUS 3.6 mg/dL (2.5-4.9); POTASSIUM 4.2 mmol/L (3.5-5.1); TOT PROT 5.5 g/dl (6.4-8.2)
[2019-08-06] MEDS ORDERED: NYSTATIN 500,000 UNITS/5 ML SUSPENSION PO PRN (08:08)
[2019-08-06] MEDS: SPIRONOLACTONE 25 MG TABLET GT SCH (08:48)
[2019-08-06] MEDS: PHENobarbital 20 MG/5 ML UNIT-DOSE CUP GT SCH ×2 (08:51→11:21)
[2019-08-06] MEDS: levETIRAcetam 500 MG/5 ML ORAL SOLUTION BULK GT SCH ×3 (08:51→21:12)
[2019-08-06] MEDS: POTASSIUM CHLORIDE ORAL LIQUID 20 MEQ/15 ML GT SCH ×3 (08:52→21:11)
[2019-08-06] MEDS: ACETAMINOPHEN 650 MG/20.3 ML ORAL SOLUTION (CUPS) GT PRN ×2 (08:52→18:10)
[2019-08-06] MEDS: AMINO ACIDS/PROTEIN HYDROLYS 30 ML LIQUID.PKT GT SCH ×2 (08:52→21:07)
[2019-08-06] MEDS: ASCORBIC ACID 500 MG/5 ML UNIT DOSE CUP GT SCH ×2 (08:53→11:23)
[2019-08-06] MEDS: Lacosamide 200 MG/20 ML VIAL IVPB SCH ×3 (08:54→21:11)
[2019-08-06] MEDS: FAMOTIDINE 40 MG/5 ML ORAL SUSPENSION NR SCH ×2 (08:55→11:22)
[2019-08-06] MEDS: CHOLECALCIFEROL (VIT D3) 400 UNIT (10 MCG) TABLET NR SCH ×2 (08:56→11:22)
--- NOTE | 2019-08-06 10:29 | PN ---
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, Physician History of Present Illness: Pt seen and examined at bedside. He appears comfortable. - Current Medication List Current Medications: Active Medications Acetaminophen (Tylenol Oral Solution -) 650 mg GT Q6H PRN PRN Reason: FEVER Last Admin: 08/06/19 08:52 Dose: 650 mg Documented by: Amino Acids (Prosource No Carb Liquid Pkt) 30 ml GT BID@0800,1730 [facility] Last Admin: 08/06/19 08:52 Dose: 30 ml Documented by: Artificial Tears (Artificial Tears) 1 drop OU BID PRN PRN Reason: DRY EYES Last Admin: 07/27/19 21:21 Dose: 1 drop Documented by: Ascorbic Acid (Vitamin C Oral Solution -) 500 mg GT DAILY [facility] Last Admin: 08/06/19 08:53 Dose: 500 mg Documented by: Chlorhexidine Gluconate (Hibiclens For Decolonization -) 1 applic TP HS [facility] Last Admin: 08/05/19 20:59 Dose: 1 applic Documented by: Cholecalciferol (Vitamin D3 -) 800 unit NR DAILY [facility] Last Admin: 08/06/19 08:56 Dose: 800 unit Documented by: Enoxaparin Sodium (Lovenox -) 80 mg SQ Q12H [facility] Last Admin: 08/06/19 05:14 Dose: 80 mg Documented by: Famotidine (Pepcid) 40 mg NR DAILY [facility] Last Admin: 08/06/19 08:55 Dose: 40 mg Documented by: Furosemide (Lasix Oral Solution -) 40 mg GT BID@0600,1400 [facility] Last Admin: 08/04/19 14:14 Dose: 40 mg Documented by: IV Flush (Triple Lumen Flush) 4 ml IVPUSH PRN PRN PRN Reason: Protocol Vancomycin HCl 1,500 mg/ (Dextrose) 500 mls @ 250 mls/hr IVPB Q12H [facility]; Protocol Last Admin: 08/06/19 01:41 Dose: 250 mls/hr Documented by: Propofol (Diprivan -) 1,000,000 mcg in 100 mls @ 2.531 mls/hr IVPB TITR TIKI; Protocol Last Admin: 08/06/19 08:41 Dose: 50 mcg/kg/min, 25.31 mls/hr Documented by: Morphine Sulfate (Morphine 100mg/100ml-0.9% Nacl) 100 mg in 100 mls @ 1 mls/hr IVPB TITR [facility]; Protocol Last Admin: 08/06/19 08:40 Dose: 15 mg/hr, 15 mls/hr Documented by: Cefepime HCl 2 gm/ Dextrose 100 mls @ 200 mls/hr IVPB Q8H-IV [facility]; Protocol Last Admin: 08/06/19 01:39 Dose: 200 mls/hr Documented by: Lacosamide (Vimpat Injection -) 200 mg IVPB BID [facility] Last Admin: 08/06/19 08:54 Dose: 200 mg Documented by: Levetiracetam (Levetiracetam Oral Suspension) 1,000 mg GT BID [facility] Last Admin: 08/06/19 08:51 Dose: 1,000 mg Documented by: Nystatin (Nystatin Oral Suspension -) 500,000 units PO Q6HPO PRN PRN Reason: ORAL PAIN/MOUTH SORES Phenobarbital (Phenobarbital Liquid -) 60 mg GT BID [facility] Last Admin: 08/06/19 08:51 Dose: 60 mg Documented by: Polyethylene Glycol (Miralax (For Daily Use) -) 17 gm GT BID [facility] Last Admin: 08/05/19 21:01 Dose: 17 gm Documented by: Potassium Chloride (Potassium Chloride Oral Liquid) 40 meq GT BID [facility] Last Admin: 08/06/19 08:52 Dose: 40 meq Documented by: Spironolactone (Aldactone -) 100 mg GT DAILY [facility] Last Admin: 08/06/19 08:48 Dose: 100 mg Documented by: Topiramate (Topamax -) 200 mg GT TID [facility] Last Admin: 08/06/19 05:14 Dose: 200 mg Documented by: Zinc Sulfate (Orazinc -) 220 mg GT BID [facility] Last Admin: 08/05/19 20:59 Dose: 220 mg Documented by: - Objective Vital Signs: Vital Signs Temperature 99.1 F 08/06/19 05:00 Pulse Rate 123 H 08/06/19 08:00 Respiratory Rate 30 H 08/06/19 09:00 Blood Pressure 108/59 L 08/06/19 08:00 O2 Sat by Pulse Oximetry (%) 100 08/06/19 09:00 Constitutional: Yes: Calm Eyes: Yes: Conjunctiva Clear HENT: Yes: Atraumatic Cardiovascular: Yes: S1, S2 Respiratory: Yes: Mechanically Ventilated Gastrointestinal: Yes: Soft Genitourinary: Yes: Caceres Present Edema: Yes Edema: LLE: Trace, RLE: Trace Neurological: Yes: Lethargy Labs: CBC, BMP 08/05/19 05:40 08/06/19 05:40 INR, PTT INR 1.01 (0.83-1.09) 07/28/19 05:00 Problem List - Problems (1) Hypernatremia Code(s): E87.0 - HYPEROSMOLALITY AND HYPERNATREMIA (2) Hypokalemia Code(s): E87.6 - HYPOKALEMIA (3) Acute respiratory failure with hypoxia Code(s): J96.01 - ACUTE RESPIRATORY FAILURE WITH HYPOXIA (4) Bacteremia Code(s): R78.81 - BACTEREMIA Assessment/Plan Current Medications Generic Name Dose Route Start Last Admin Trade Name Freq PRN Reason Stop Dose Admin Acetaminophen 650 mg 07/31/19 11:33 08/06/19 08:52 Tylenol Oral Solution - GT 650 mg Q6H PRN Administration FEVER Amino Acids 30 ml 07/31/19 11:33 08/06/19 08:52 Prosource No Carb Liquid Pkt GT 30 ml BID@0800,1730 TIKI Administration Artificial Tears 1 drop 07/27/19 09:32 07/27/19 21:21 Artificial Tears OU 1 drop BID PRN Administration DRY EYES Ascorbic Acid 500 mg 07/31/19 11:35 08/06/19 08:53 Vitamin C Oral Solution - GT 500 mg DAILY TIKI Administration Chlorhexidine Gluconate 1 applic 06/22/19 22:00 08/05/19 20:59 Hibiclens For Decolonization - TP 1 applic HS TIKI Administration Cholecalciferol 800 unit 07/31/19 11:35 08/06/19 08:56 Vitamin D3 - NR 800 unit DAILY TIKI Administration Enoxaparin Sodium 80 mg 08/03/19 18:00 08/06/19 05:14 Lovenox - SQ 80 mg Q12H TIKI Administration Famotidine 40 mg 07/31/19 11:53 08/06/19 08:55 Pepcid NR 40 mg DAILY TIKI Administration Furosemide 40 mg 07/31/19 14:00 08/04/19 14:14 Lasix Oral Solution - GT 40 mg BID@0600,1400 TIKI Administration IV Flush 4 ml 07/18/19 18:26 Triple Lumen Flush IVPUSH PRN PRN Protocol Vancomycin HCl 1,500 mg/ 500 mls @ 250 mls/hr 07/21/19 02:00 08/06/19 01:41 Dextrose IVPB 250 mls/hr Q12H TIKI Administration Protocol Propofol 1,000,000 mcg in 100 mls @ 2.531 mls/hr 07/31/19 14:00 08/06/19 08:41 Diprivan - IVPB 50 mcg/kg/min TITR TIKI 25.31 mls/hr Administration Protocol 5 MCG/KG/MIN Morphine Sulfate 100 mg in 100 mls @ 1 mls/hr 07/31/19 14:00 08/06/19 08:40 Morphine 100mg/100ml-0.9% Nacl IVPB 15 mg/hr TITR TIKI 15 mls/hr Administration Protocol 1 MG/HR Cefepime HCl 2 gm/ Dextrose 100 mls @ 200 mls/hr 08/01/19 11:45 08/06/19 01:39 IVPB 200 mls/hr Q8H-IV TIKI Administration Protocol Lacosamide 200 mg 07/31/19 11:52 08/06/19 08:54 Vimpat Injection - IVPB 200 mg BID TIKI Administration Levetiracetam 1,000 mg 07/31/19 11:51 08/06/19 08:51 Levetiracetam Oral Suspension GT 1,000 mg BID TIKI Administration Nystatin 500,000 units 08/06/19 08:08 Nystatin Oral Suspension - PO Q6HPO PRN ORAL PAIN/MOUTH SORES Phenobarbital 60 mg 06/28/19 10:00 08/06/19 08:51 Phenobarbital Liquid - GT 60 mg BID TIKI Administration Polyethylene Glycol 17 gm 07/31/19 11:56 08/05/19 21:01 Miralax (For Daily Use) - GT 17 gm BID TIKI Administration Potassium Chloride 40 meq 07/31/19 11:56 08/06/19 08:52 Potassium Chloride Oral Liquid GT 40 meq BID TIKI Administration Spironolactone 100 mg 07/31/19 11:57 08/06/19 08:48 Aldactone - GT 100 mg DAILY TIKI Administration Topiramate 200 mg 07/31/19 11:58 08/06/19 05:14 Topamax - GT 200 mg TID TIKI Administration Zinc Sulfate 220 mg 07/31/19 12:13 08/05/19 20:59 Orazinc - GT 220 mg BID TIKI Administration Impression 1. hypokalemia 2. hypernatremia 3. resp failure 4. fungemia 5. covid 19 infection 6. ards 7. developemental delay 8. epilepsy 9. bactermia 10. resp acidosis with compensatory met alk Plan - pt net negative - pt with good urine output - change aldactone to 50 mg - monitor lytes - additional lasix prn - monitor potassium
--- NOTE | 2019-08-06 11:07 | CONSULT ---
Admitting History and Physical - Primary Care Physician PCP: Devin House MD - Admission History of Present Illness: 39 M with PMH with intellectual disability/ developmental delay, epilepsy, mental retardation who presented from home to ED initially with SOB and hypoxia requiring intubation, admitted to hospital 06/21 for hypoxic respiratory failure 2/2 to covid-19, PNA, fungemia, bacteremia, septic shock. Per family the patient's baseline mental status is that he does speak at baseline. 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 [place] 2019 status epilepticus. remains intubated in the ICU. #NEURO wakes intermittently and vented + Sedated on morphine and prop Selected Entries 08/05/19 08/05/19 08/05/19 00:00 00:17 01:00 Lunch Temperature Pulse Rate Respiratory 30 H 30 H 30 H Rate Respiratory Effort Blood Pressure 94/49 L 129/84 08/05/19 08/05/19 08/05/19 02:00 03:00 04:00 Lunch Temperature 96.8 F L Pulse Rate Respiratory 30 H 30 H 30 H Rate Respiratory Effort Blood Pressure 97/50 L 98/53 L 100/54 L 08/05/19 08/05/19 08/05/19 04:30 05:00 06:07 Lunch Temperature 97.8 F Pulse Rate Respiratory 30 H 32 H 27 H Rate Respiratory Effort Blood Pressure 109/63 118/62 08/05/19 08/05/19 08/05/19 08:00 08:47 09:00 Lunch Temperature 99.3 F Pulse Rate Respiratory 36 H 36 H 36 H Rate Respiratory Effort Blood Pressure 122/66 08/05/19 08/05/19 08/05/19 10:00 12:00 12:25 Lunch NPO Temperature 99.2 F Pulse Rate Respiratory 36 H 34 H 39 H Rate Respiratory Effort Blood Pressure 115/62 124/69 08/05/19 08/05/19 08/05/19 14:00 16:00 16:10 Lunch Temperature 100 F H 100 F H Pulse Rate Respiratory 34 H 30 H 30 H Rate Respiratory Effort Blood Pressure 82/46 L 110/60 08/05/19 08/05/19 08/05/19 18:00 19:00 20:20 Lunch Temperature 100.2 F H 100.1 F H Pulse Rate Respiratory 30 H 29 H 33 H Rate Respiratory Effort Blood Pressure 104/59 L 124/69 08/05/19 08/05/19 08/05/19 21:00 21:42 22:00 Lunch Temperature 96.8 F L Pulse Rate Respiratory 30 H 30 H 30 H Rate Respiratory Effort Blood Pressure 120/66 129/69 08/05/19 08/06/19 08/06/19 23:00 00:00 00:25 Lunch Temperature Pulse Rate 95 H Respiratory 30 H 30 H 30 H Rate Respiratory Effort Blood Pressure 118/66 119/67 08/06/19 08/06/19 08/06/19 02:00 03:00 04:00 Lunch Temperature 94.7 F L 96.0 F L Pulse Rate 91 H 90 97 H Respiratory 30 H 30 H 30 H Rate Respiratory Effort Blood Pressure 111/58 L 97/55 L 96/51 L 08/06/19 08/06/19 08/06/19 04:20 05:00 07:33 Lunch Temperature 99.1 F Pulse Rate 112 H Respiratory 30 H 30 H 30 H Rate Respiratory Effort Blood Pressure 102/51 L 08/06/19 08/06/19 08/06/19 08:00 09:00 10:00 Lunch Temperature 99.5 F Pulse Rate 123 H 101 H Respiratory 30 H 30 H 30 H Rate Respiratory Non-Labored Effort Blood Pressure 108/59 L 96/51 L Laboratory Tests 06/22/19 07/19/19 08/03/19 12:00 11:30 10:40 WBC 13.6 H COVID-19 ([facility]) Detected H Not detected 08/05/19 05:40 WBC 9.5 COVID-19 ([facility]) Seen by Palliative care RN on 07/22. Consulted to evaluate swallowing for PO trials. 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 Pt still on vent, pending tracheostomy tomorrow. Consider PEG insertion.
[2019-08-06] MEDS: POLYETHYLENE GLYCOL 3350 119 GM BTL GT SCH ×2 (11:30→21:12)
[2019-08-06] MEDS: ZINC SULFATE 220 MG CAPSULE (FP) GT SCH ×2 (11:30→21:11)
--- NOTE | 2019-08-06 12:50 | PN ---
Teaching Attending Note Name of Resident: Alfonzo Albright ATTENDING PHYSICIAN STATEMENT I saw and evaluated the patient. I reviewed the resident's note and discussed the case with the resident. I agree with the resident's findings and plan as documented. SUBJECTIVE: Patient seen and examined in the ICU. Remains intubated, awake off sedation. No pressors. Vented on volume assist control with 50% FiO2, PEEP 5. Failure to wean due to poor lung mechanics. PPlat 28. PIP: 29 OBJECTIVE: Intake & Output 08/03/19 08/04/19 08/05/19 08/06/19 23:59 23:59 23:59 23:59 Intake Total 2091.4 1297 2768.0 Output Total 1750 2600 3500 Balance 341.4 -1303 -732.0 Weight 183 lb 14.4 oz 185 lb 8 oz 186 lb Last Vital Signs Temp Pulse Resp BP Pulse Ox 99.5 F 95 H 30 H 99/55 L 97 08/06/19 10:00 08/06/19 12:00 08/06/19 12:00 08/06/19 12:00 08/06/19 11:55 Active Medications Acetaminophen (Tylenol Oral Solution -) 650 mg GT Q6H PRN PRN Reason: FEVER Last Admin: 08/06/19 08:52 Dose: 650 mg Documented by: Amino Acids (Prosource No Carb Liquid Pkt) 30 ml GT BID@0800,1730 [facility] Last Admin: 08/06/19 08:52 Dose: 30 ml Documented by: Artificial Tears (Artificial Tears) 1 drop OU BID PRN PRN Reason: DRY EYES Last Admin: 07/27/19 21:21 Dose: 1 drop Documented by: Ascorbic Acid (Vitamin C Oral Solution -) 500 mg GT DAILY [facility] Last Admin: 08/06/19 11:23 Dose: Not Given Documented by: Chlorhexidine Gluconate (Hibiclens For Decolonization -) 1 applic TP HS [facility] Last Admin: 08/05/19 20:59 Dose: 1 applic Documented by: Cholecalciferol (Vitamin D3 -) 800 unit NR DAILY [facility] Last Admin: 08/06/19 11:22 Dose: Not Given Documented by: Enoxaparin Sodium (Lovenox -) 80 mg SQ Q12H [facility] Last Admin: 08/06/19 05:14 Dose: 80 mg Documented by: Famotidine (Pepcid) 40 mg NR DAILY [facility] Last Admin: 08/06/19 11:22 Dose: Not Given Documented by: Furosemide (Lasix Oral Solution -) 40 mg GT BID@0600,1400 [facility] Last Admin: 08/04/19 14:14 Dose: 40 mg Documented by: IV Flush (Triple Lumen Flush) 4 ml IVPUSH PRN PRN PRN Reason: Protocol Vancomycin HCl 1,500 mg/ (Dextrose) 500 mls @ 250 mls/hr IVPB Q12H [facility]; Protocol Last Admin: 08/06/19 01:41 Dose: 250 mls/hr Documented by: Propofol (Diprivan -) 1,000,000 mcg in 100 mls @ 2.531 mls/hr IVPB TITR [facility]; Protocol Last Admin: 08/06/19 08:41 Dose: 50 mcg/kg/min, 25.31 mls/hr Documented by: Morphine Sulfate (Morphine 100mg/100ml-0.9% Nacl) 100 mg in 100 mls @ 1 mls/hr IVPB TITR [facility]; Protocol Last Admin: 08/06/19 08:40 Dose: 15 mg/hr, 15 mls/hr Documented by: Cefepime HCl 2 gm/ Dextrose 100 mls @ 200 mls/hr IVPB Q8H-IV [facility]; Protocol Last Admin: 08/06/19 11:30 Dose: 200 mls/hr Documented by: Lacosamide (Vimpat Injection -) 200 mg IVPB BID [facility] Last Admin: 08/06/19 11:22 Dose: Not Given Documented by: Levetiracetam (Levetiracetam Oral Suspension) 1,000 mg GT BID [facility] Last Admin: 08/06/19 11:20 Dose: Not Given Documented by: Nystatin (Nystatin Oral Suspension -) 500,000 units PO Q6HPO PRN PRN Reason: ORAL PAIN/MOUTH SORES Phenobarbital (Phenobarbital Liquid -) 60 mg GT BID [facility] Last Admin: 08/06/19 11:21 Dose: Not Given Documented by: Polyethylene Glycol (Miralax (For Daily Use) -) 17 gm GT BID [facility] Last Admin: 08/06/19 11:30 Dose: 17 gm Documented by: Potassium Chloride (Potassium Chloride Oral Liquid) 40 meq GT BID [facility] Last Admin: 08/06/19 11:21 Dose: Not Given Documented by: Spironolactone (Aldactone -) 50 mg GT DAILY [facility] Topiramate (Topamax -) 200 mg GT TID [facility] Last Admin: 08/06/19 05:14 Dose: 200 mg Documented by: Zinc Sulfate (Orazinc -) 220 mg GT BID [facility] Last Admin: 08/06/19 11:30 Dose: 220 mg Documented by: Gen: intubated, awake Heart: RRR Lung: bilateral coarse rhonchi Abd: soft, nontender Ext: + edema Laboratory Results - last 24 hr 08/06/19 05:40 Sodium 141 Potassium 4.2 Chloride 100 Carbon Dioxide 38 H Anion Gap 3 L BUN 8.7 Creatinine 0.2 L Est GFR (CKD-EPI)AfAm 232.19 Est GFR (CKD-EPI)NonAf 200.34 Random Glucose 128 H Calcium 9.2 Phosphorus 3.6 Magnesium 1.9 Total Bilirubin 0.3 AST 23 ALT 31 Alkaline Phosphatase 129 H Total Protein 5.5 L Albumin 2.0 L ASSESSMENT AND PLAN: Acute Hypoxic and Hypercapneic Respiratory Failure COVID19 Pneumonia E Coli Pneumonia Fungenmia Bacteremia Septic Shock Seizure Disorder Mental Retardation - continue antibiotics per ID - continue antiepileptics - lasix, aldactone - monitor urine output, creatinine - low tidal volume ventilation - titrate FiO2, PEEP to keep SpO2 >90% - Wean as tolerated - enteral feeds - DVT/GI prophylaxis - continue ICU monitoring - For tracheostomy tomorrow Dr Callaway critical care time spent in reviewing chart, evaluating patient and formulating plan 35 min
--- NOTE | 2019-08-06 13:56 | PN ---
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 (short form) - Note 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: remains intubated weaning oxygen now on 50% afebrile looks comfortable, back on sedation Vital Signs Period Temp Pulse Resp BP Sys/Ortiz Pulse Ox Last 24 Hr 94.7 F-100.2 F 90-123 29-33 96-129/51-69 96-100 cor-rrr lungs decreased bs at bases abd soft,nt ext no edema CBC, BMP 08/05/19 05:40 08/06/19 05:40 Microbiology 08/05/19 13:45 Urine - Urine Caceres Urine Culture - Final NO GROWTH OBTAINED 08/04/19 19:50 Blood - Peripheral Venous Blood Culture - Preliminary NO GROWTH OBTAINED AFTER 24 HOURS, INCUBATION TO CONTINUE FOR 4 DAYS. 08/04/19 19:40 Blood - Peripheral Venous Blood Culture - Preliminary NO GROWTH OBTAINED AFTER 24 HOURS, INCUBATION TO CONTINUE FOR 4 DAYS. 07/31/19 16:30 Blood - Peripheral Venous Blood Culture - Final NO GROWTH AFTER 5 DAYS INCUBATION cxray unchanged vanco trough 14.9 covid pcr negative (repeat) quantiferon negative imp/reccd fever today- on vanco/cefepime (added 07/31)-- cultures sent, consider ct scan head and sinuses- r/o sinusitis given recurrent fevers and prolonged intubation ?mrsa colonization - gram stain no polys ARDS/pneumonia- bacteremia- recurrent staph epi bacteremia- ?endocarditis- echo unrevealing- continue vancomycin, day #22-plan 6 weeks repeat blood culture positive one bottle-staph capitus- suspect contaminant fungemia- quita lusitanae- has completed 14 days cancidas- repeat cultures negative covid 19 positive -repeat pcr negative s/p convalescent plasma s/p tocilizumab MRSA isolation for positive sputum culture- esbl isolation for prior sputum ecoli esbl d/w ICU team -for trach in am consider ct scan head/sinuses if fevers recur repeat vanco trough weekly Problem List - Problems (1) Suspected COVID-19 virus infection Code(s): R68.89 - OTHER GENERAL SYMPTOMS AND SIGNS (2) Acute respiratory failure with hypoxia Code(s): J96.01 - ACUTE RESPIRATORY FAILURE WITH HYPOXIA (3) Bacteremia Code(s): R78.81 - BACTEREMIA
--- NOTE | 2019-08-06 15:00 | PN ---
Physical Exam: SUBJECTIVE: Patient seen and examined. Cont sedation- propofol, morphine. Overnight afebrile, on Abx, placed cooling blankets. Vented and sedated. Plan for trach in the am. Will set up trach, ET and code cart. Hold AC tonight's dose, NPO after midnight OBJECTIVE: Vital Signs Period Temp Pulse Resp BP Sys/Ortiz Pulse Ox Last 24 Hr 94.7 F-100.2 F 90-123 29-33 96-129/51-69 96-100 GENERAL: awake, and vented HEAD: Normal with no signs of trauma. EYES: PERRLA NECK: Trachea midline, supple, ETT in place. LUNGS:coarse breath sounds b/l HEART: Regular rate and rhythm. ABDOMEN: Soft, nontender, nondistended. : Caceres in place EXTREMITIES: warm, no edema. Laboratory Results - last 24 hr 08/06/19 05:40 Sodium 141 Potassium 4.2 Chloride 100 Carbon Dioxide 38 H Anion Gap 3 L BUN 8.7 Creatinine 0.2 L Est GFR (CKD-EPI)AfAm 232.19 Est GFR (CKD-EPI)NonAf 200.34 Random Glucose 128 H Calcium 9.2 Phosphorus 3.6 Magnesium 1.9 Total Bilirubin 0.3 AST 23 ALT 31 Alkaline Phosphatase 129 H Total Protein 5.5 L Albumin 2.0 L Active Medications Generic Name Dose Route Start Last Admin Trade Name Freq PRN Reason Stop Dose Admin Acetaminophen 650 mg 07/31/19 11:33 08/06/19 08:52 Tylenol Oral Solution - GT 650 mg Q6H PRN Administration FEVER Amino Acids 30 ml 07/31/19 11:33 08/06/19 08:52 Prosource No Carb Liquid Pkt GT 30 ml BID@0800,1730 [facility] Administration Artificial Tears 1 drop 07/27/19 09:32 07/27/19 21:21 Artificial Tears OU 1 drop BID PRN Administration DRY EYES Ascorbic Acid 500 mg 07/31/19 11:35 08/06/19 11:23 Vitamin C Oral Solution - GT Not Given DAILY [facility] Chlorhexidine Gluconate 1 applic 06/22/19 22:00 08/05/19 20:59 Hibiclens For Decolonization - TP 1 applic HS [facility] Administration Cholecalciferol 800 unit 07/31/19 11:35 08/06/19 11:22 Vitamin D3 - NR Not Given DAILY [facility] Enoxaparin Sodium 80 mg 08/03/19 18:00 08/06/19 05:14 Lovenox - SQ 08/07/19 00:00 80 mg Q12H [facility] Administration Famotidine 40 mg 07/31/19 11:53 08/06/19 11:22 Pepcid NR Not Given DAILY [facility] Furosemide 40 mg 07/31/19 14:00 08/04/19 14:14 Lasix Oral Solution - GT 40 mg BID@0600,1400 [facility] Administration IV Flush 4 ml 07/18/19 18:26 Triple Lumen Flush IVPUSH PRN PRN Protocol Vancomycin HCl 1,500 mg/ 500 mls @ 250 mls/hr 07/21/19 02:00 08/06/19 01:41 Dextrose IVPB 250 mls/hr Q12H [facility] Administration Protocol Propofol 1,000,000 mcg in 100 mls @ 2.531 mls/hr 07/31/19 14:00 08/06/19 08:41 Diprivan - IVPB 50 mcg/kg/min TITR [facility] 25.31 mls/hr Administration Protocol 5 MCG/KG/MIN Morphine Sulfate 100 mg in 100 mls @ 1 mls/hr 07/31/19 14:00 08/06/19 14:20 Morphine 100mg/100ml-0.9% Nacl IVPB 15 mg/hr TITR [facility] 15 mls/hr Administration Protocol 1 MG/HR Cefepime HCl 2 gm/ Dextrose 100 mls @ 200 mls/hr 08/01/19 11:45 08/06/19 11:30 IVPB 200 mls/hr Q8H-IV [facility] Administration Protocol Lacosamide 200 mg 07/31/19 11:52 08/06/19 11:22 Vimpat Injection - IVPB Not Given BID [facility] Levetiracetam 1,000 mg 07/31/19 11:51 08/06/19 11:20 Levetiracetam Oral Suspension GT Not Given BID [facility] Nystatin 500,000 units 08/06/19 08:08 Nystatin Oral Suspension - PO Q6HPO PRN ORAL PAIN/MOUTH SORES Phenobarbital 60 mg 06/28/19 10:00 08/06/19 11:21 Phenobarbital Liquid - GT Not Given BID [facility] Polyethylene Glycol 17 gm 07/31/19 11:56 08/06/19 11:30 Miralax (For Daily Use) - GT 17 gm BID [facility] Administration Potassium Chloride 40 meq 07/31/19 11:56 08/06/19 11:21 Potassium Chloride Oral Liquid GT Not Given BID [facility] Spironolactone 50 mg 08/06/19 10:30 Aldactone - GT DAILY [facility] Topiramate 200 mg 07/31/19 11:58 08/06/19 05:14 Topamax - GT 200 mg TID [facility] Administration Zinc Sulfate 220 mg 07/31/19 12:13 08/06/19 11:30 Orazinc - GT 220 mg BID [facility] Administration ASSESSMENT/PLAN: 38M with PMH MR and epilepsy who presented to ED initially with SOB and hypoxia requiring intubation, admitted to hospital for hypoxic respiratory failure 2/2 to covct-19. #NEURO wakes intermittently and vented + Sedated on morphine and prop -epilepsy continue Keppra, Topamax, Vimpat, and phenobarbitol #PULM -Acute hypoxic respiratory failure 2/2 covid-19 intubated, s/p Plaquenil, convalescent plasma, and Actemra AC 30/280/60/5 Plat + PIP elevated- lung restrictive and stiff, will need to maintain low TV wean FIO2 with goal SpO2 >90% Hold AC for the am, NPO after midnight, will have tracheostomy in the am, c onsent obtained #CARDIO off pressors #ID previous sputum esbl, s/p ryan, casopofungin fungemia-quita- s/p 14 days cancidas- repeat cultures negative bacteremia- BCx- staph capitis- sensitive to vanc sputum- MRSA- sensitive to vanc continue vancomycin D20- total of 6 weeks needed, cefepime D6 New UCx+Bcx neg #Renal hypokalemia BID NGT KCl 40mEq while on Lasix 40 BID IVP- will hold lasix due to tachycardia and to avoid excess volume loss- can consider resuming after reassessment in the am aldactone 50 started by renal Pt negative balance, good UO #FEN diet continue tube feeds replete PRN #PPX DVT HOLD Lovenox 80 BID #GI ppx Protonix 40mg QD LTD ETT replaced 07/17 LSC TLC placed 07/17 removed today R radial A-line placed 07/17 DISPO: off pressors, cont abx, HOLD Lovenox tonight and in the am, NPO after midnight, tracheostomy in the am Visit type - Emergency Visit Emergency Visit: Yes ED Registration Date: 06/22/19 Care time: The patient presented to the Emergency Department on the above date and was hospitalized for further evaluation of their emergent condition. - New Patient This patient is new to me today: Yes Date on this admission: 09/02/19 - Critical Care Critical Care patient: No - Discharge Referral Referred to [facility] Med P.C.: No ATTENDING PHYSICIAN STATEMENT I saw and evaluated the patient. I reviewed the resident's note and discussed the case with the resident. I agree with the resident's findings and plan as documented. SUBJECTIVE: OBJECTIVE: ASSESSMENT AND PLAN:
[2019-08-06] MEDS ORDERED: CEFEPIME 2 GM in DEXTROSE 5%-WATER 100 ML IVPB SCH (18:00)
[2019-08-06] MEDS: CHLORHEXIDINE GLUCONATE 4% CLEANSER FOR DECOLONIZATION TP SCH (21:12)
[2019-08-07] MEDS ORDERED: PT OWN MED DRAWER 7, Y5N ONE ×2 (02:31→14:09)
[2019-08-07] MEDS: PHENobarbital 20 MG/5 ML UNIT-DOSE CUP GT SCH ×3 (02:32→21:19)
[2019-08-07] MEDS: VANCOMYCIN HCL 1,500 MG in DEXTROSE 5%-WATER - 500 ML IVPB SCH ×2 (02:32→14:15)
[2019-08-07] MEDS: CEFEPIME 2 GM in DEXTROSE 5%-WATER 100 ML IVPB SCH ×2 (02:32→09:37)
[2019-08-07] MEDS: PROPOFOL 1,000,000 MCG/100 ML VIAL IVPB SCH ×5 (02:33→22:57)
[2019-08-07] MEDS: TOPIRAMATE 200 MG TABLET GT SCH ×3 (05:43→21:17)
[2019-08-07 06:41] LABS: HEMATOCRIT 25.4 % (35.4-49); HEMOGLOBIN 8.3 GM/dL (11.7-16.9); MCH 29.9 pg (25.7-33.7); MCHC 32.6 g/dl (32.0-35.9); MEAN CELL VOLUME 91.7 fl (80-96); MEAN PLT VOLUME 7.5 fl (7.5-11.1); PLATELET COUNT 477 K/MM3 (134-434); RBC 2.77 M/mm3 (4.00-5.60); RDW 17.5 % (11.9-15.9); WHITE BLOOD COUNT 8.7 K/mm3 (4.0-10.0)
[2019-08-07] MEDS: AMINO ACIDS/PROTEIN HYDROLYS 30 ML LIQUID.PKT GT SCH ×2 (08:01→18:38)
[2019-08-07] MEDS: Lacosamide 200 MG/20 ML VIAL IVPB SCH ×2 (09:37→21:17)
[2019-08-07] MEDS: SPIRONOLACTONE 25 MG TABLET GT SCH (10:12)
[2019-08-07] MEDS: levETIRAcetam 500 MG/5 ML ORAL SOLUTION BULK GT SCH ×2 (10:12→21:18)
[2019-08-07] MEDS: POLYETHYLENE GLYCOL 3350 119 GM BTL GT SCH ×2 (10:12→21:19)
[2019-08-07] MEDS: POTASSIUM CHLORIDE ORAL LIQUID 20 MEQ/15 ML GT SCH ×2 (10:13→21:19)
[2019-08-07] MEDS: CHOLECALCIFEROL (VIT D3) 400 UNIT (10 MCG) TABLET NR SCH (10:13)
[2019-08-07] MEDS: ASCORBIC ACID 500 MG/5 ML UNIT DOSE CUP GT SCH (10:13)
[2019-08-07] MEDS: FAMOTIDINE 40 MG/5 ML ORAL SUSPENSION NR SCH (10:13)
[2019-08-07] MEDS: ZINC SULFATE 220 MG CAPSULE (FP) GT SCH ×2 (10:13→21:19)
--- NOTE | 2019-08-07 10:26 | OPR ---
Patient Name: Kumar Gunn MR#: [id number] Procedure Date: 08/07/2019 Inpatient procedure Preoperative Diagnosis: 1. Hypoxic respiratory failure; 2. COVID Pneumonia; 3. Developmental delay. Postoperative Diagnosis: same. Procedure: 1. Flexible Bronchoscopy (performed by Dr. Callaway) 2. Percutaneous tracheostomy. Indication: Respiratory failure; Surgeon(s): Frederick Kirkpatrick MD Cosurgeon: doretha Biometric Fingerprinting Technician Surgeon: doretha Anesthesia: local; Findings: Bronchoscopy: secretions in airway; tracheostomy in place without significant bleeding; Specimens Sent: 1. None. Complications: None. Drains / Tubes / Catheters: #8 Portex. Hardware / Implants: na Blood / Fluid Losses: none. Post-Operative Condition: hemodynamically stable. Indications: This patient is a 39 year-old male referred from the ICU team for tracheostomy because of prolonged respiratory failure. An informed consent was obtained from the family for the procedure. All questions were addressed and answered. Details of Procedure: The procedure was done at the bedside. Dr. Callaway performed a bronchoscopy after he was given paralysis and prepared and draped. I then injected lidocaine and made a small incision. Blunt dissection was done down to the airway. Next under vision from bronchoscopy, the needle as inserted between the second and third ring. Using Seldinger technique the wire, dilator, and larger dilator, and finally the tracheostomy were inserted. It was secured with sutures. A completion bronchoscopy showed good position and hemostasis. He tolerated the procedure well. I will follow the patient in the hospital and as an outpatient.
--- NOTE | 2019-08-07 11:58 | PN ---
Teaching Attending Note Name of Resident: Alfonzo Albright ATTENDING PHYSICIAN STATEMENT I saw and evaluated the patient. I reviewed the resident's note and discussed the case with the resident. I agree with the resident's findings and plan as documented. SUBJECTIVE: Patient seen and examined in the ICU. Remains intubated, awake off sedation. No pressors. Vented on volume assist control with 50% FiO2, PEEP 5. Failure to wean due to poor lung mechanics. PPlat 28. PIP: 29 OBJECTIVE: Intake & Output 08/04/19 08/05/19 08/06/19 08/07/19 23:59 23:59 23:59 23:59 Intake Total 1297 2768.0 1745 1273.6 Output Total 2600 3500 1050 350 Balance -1303 -732.0 695 923.6 Weight 185 lb 8 oz 186 lb 189 lb Last Vital Signs Temp Pulse Resp BP Pulse Ox 99.1 F 122 H 30 H 147/52 L 100 08/07/19 08:00 08/07/19 10:00 08/07/19 10:00 08/07/19 10:00 08/07/19 08:38 Active Medications Acetaminophen (Tylenol Oral Solution -) 650 mg GT Q6H PRN PRN Reason: FEVER Last Admin: 08/06/19 18:10 Dose: 650 mg Documented by: Amino Acids (Prosource No Carb Liquid Pkt) 30 ml GT BID@0800,1730 [facility] Last Admin: 08/07/19 08:01 Dose: Not Given Documented by: Artificial Tears (Artificial Tears) 1 drop OU BID PRN PRN Reason: DRY EYES Last Admin: 07/27/19 21:21 Dose: 1 drop Documented by: Ascorbic Acid (Vitamin C Oral Solution -) 500 mg GT DAILY [facility] Last Admin: 08/07/19 10:13 Dose: Not Given Documented by: Chlorhexidine Gluconate (Hibiclens For Decolonization -) 1 applic TP HS [facility] Last Admin: 08/06/19 21:12 Dose: 1 applic Documented by: Cholecalciferol (Vitamin D3 -) 800 unit NR DAILY [facility] Last Admin: 08/07/19 10:13 Dose: Not Given Documented by: Famotidine (Pepcid) 40 mg NR DAILY [facility] Last Admin: 08/07/19 10:13 Dose: Not Given Documented by: Furosemide (Lasix Oral Solution -) 40 mg GT BID@0600,1400 [facility] Last Admin: 08/04/19 14:14 Dose: 40 mg Documented by: IV Flush (Triple Lumen Flush) 4 ml IVPUSH PRN PRN PRN Reason: Protocol Vancomycin HCl 1,500 mg/ (Dextrose) 500 mls @ 250 mls/hr IVPB Q12H [facility]; Protocol Last Admin: 08/07/19 02:32 Dose: 250 mls/hr Documented by: Propofol (Diprivan -) 1,000,000 mcg in 100 mls @ 2.531 mls/hr IVPB TITR [facility]; Protocol Last Admin: 08/07/19 02:33 Dose: 50 mcg/kg/min, 25.31 mls/hr Documented by: Morphine Sulfate (Morphine 100mg/100ml-0.9% Nacl) 100 mg in 100 mls @ 1 mls/hr IVPB TITR [facility]; Protocol Last Admin: 08/06/19 21:33 Dose: 10 mg/hr, 10 mls/hr Documented by: Cefepime HCl 2 gm/ Dextrose 100 mls @ 200 mls/hr IVPB Q8H-IV [facility]; Protocol Last Admin: 08/07/19 09:37 Dose: 200 mls/hr Documented by: Lacosamide (Vimpat Injection -) 200 mg IVPB BID [facility] Last Admin: 08/07/19 09:37 Dose: 200 mg Documented by: Levetiracetam (Levetiracetam Oral Suspension) 1,000 mg GT BID [facility] Last Admin: 08/07/19 10:12 Dose: Not Given Documented by: Nystatin (Nystatin Oral Suspension -) 500,000 units PO Q6HPO PRN PRN Reason: ORAL PAIN/MOUTH SORES Last Admin: 08/07/19 09:37 Dose: 500,000 units Documented by: Phenobarbital (Phenobarbital Liquid -) 60 mg GT BID [facility] Last Admin: 08/07/19 10:13 Dose: Not Given Documented by: Polyethylene Glycol (Miralax (For Daily Use) -) 17 gm GT BID [facility] Last Admin: 08/07/19 10:12 Dose: Not Given Documented by: Potassium Chloride (Potassium Chloride Oral Liquid) 40 meq GT BID [facility] Last Admin: 08/07/19 10:13 Dose: Not Given Documented by: Rocuronium Hurricane (Zemuron -) 100 mg IV ONCE ONE Stop: 08/07/19 12:01 Spironolactone (Aldactone -) 50 mg GT DAILY [facility] Last Admin: 08/07/19 10:12 Dose: Not Given Documented by: Topiramate (Topamax -) 200 mg GT TID [facility] Last Admin: 08/07/19 05:43 Dose: Not Given Documented by: Zinc Sulfate (Orazinc -) 220 mg GT BID [facility] Last Admin: 08/07/19 10:13 Dose: Not Given Documented by: Gen: intubated, awake Heart: RRR Lung: bilateral coarse rhonchi Abd: soft, nontender Ext: + edema Laboratory Results - last 24 hr 08/07/19 06:10 WBC 8.7 RBC 2.77 L Hgb 8.3 L Hct 25.4 L MCV 91.7 MCH 29.9 MCHC 32.6 RDW 17.5 H Plt Count 477 H MPV 7.5 D ASSESSMENT AND PLAN: Acute Hypoxic and Hypercapneic Respiratory Failure COVID19 Pneumonia E Coli Pneumonia Fungenmia Bacteremia Septic Shock Seizure Disorder Mental Retardation - continue antibiotics per ID - continue antiepileptics - lasix, aldactone - monitor urine output, creatinine - low tidal volume ventilation - titrate FiO2, PEEP to keep SpO2 >90% - Wean as tolerated - enteral feeds - DVT/GI prophylaxis - continue ICU monitoring - For tracheostomy today Dr Callaway critical care time spent in reviewing chart, evaluating patient and formulating plan 35 min
--- NOTE | 2019-08-07 11:59 | PROC ---
Procedure Note Procedure: Bilateral FOB was performed prior to the placement of a Percutaneous Tracheostomy by surgery. The FOB was inserted via the ETT. Mild secretions were noted and suctioned. The Airways were inspected. No Endobronchial lesions. Mild secretions were noted and suctioned. The Bronchoscope was then withdrawn back into the distal portion of the ETT and remained there during the placement of a Percutaneous Tracheostomy by Surgery. Excellent placement of the device and hemostasis was confirmed by the bronchoscope. The patient tolerated the procedure well and there were no noted complications. Dr Callaway
[2019-08-07] MEDS ORDERED: ROCURONIUM BROMIDE 50 MG/5 ML VIAL IV ONE ×2 (12:00)
--- NOTE | 2019-08-07 15:28 | PN ---
Physical Exam: SUBJECTIVE: Patient seen and examined. Cont sedation- propofol, morphine. Febrile 101.1 yesterday, on Abx, placed cooling blankets. Vented and sedated. S/p trach placement. OBJECTIVE: Vital Signs Period Temp Pulse Resp BP Sys/Ortiz Pulse Ox Last 24 Hr 97.8 F-101.1 F 71-122 10-31 91-147/49-66 99-100 GENERAL: awake, and vented HEAD: Normal with no signs of trauma. EYES: PERRLA NECK: Trachea midline, supple, ETT in place. Tracheostomy placed, intact, clean. LUNGS:coarse breath sounds b/l HEART: Regular rate and rhythm. ABDOMEN: Soft, nontender, nondistended. : Caceres in place EXTREMITIES: warm, no edema. Laboratory Results - last 24 hr 08/07/19 08/07/19 06:10 13:35 WBC 8.7 RBC 2.77 L Hgb 8.3 L Hct 25.4 L MCV 91.7 MCH 29.9 MCHC 32.6 RDW 17.5 H Plt Count 477 H MPV 7.5 D Vancomycin Pre-Dose 12.4 H Active Medications Generic Name Dose Route Start Last Admin Trade Name Freq PRN Reason Stop Dose Admin Acetaminophen 650 mg 07/31/19 11:33 08/06/19 18:10 Tylenol Oral Solution - GT 650 mg Q6H PRN Administration FEVER Amino Acids 30 ml 07/31/19 11:33 08/07/19 08:01 Prosource No Carb Liquid Pkt GT Not Given BID@0800,1730 TIKI Artificial Tears 1 drop 07/27/19 09:32 07/27/19 21:21 Artificial Tears OU 1 drop BID PRN Administration DRY EYES Ascorbic Acid 500 mg 07/31/19 11:35 08/07/19 10:13 Vitamin C Oral Solution - GT Not Given DAILY [facility] Chlorhexidine Gluconate 1 applic 06/22/19 22:00 08/06/19 21:12 Hibiclens For Decolonization - TP 1 applic HS T[facility]I Administration Cholecalciferol 800 unit 07/31/19 11:35 08/07/19 10:13 Vitamin D3 - NR Not Given DAILY [facility] Famotidine 40 mg 07/31/19 11:53 08/07/19 10:13 Pepcid NR Not Given DAILY [facility] Furosemide 40 mg 07/31/19 14:00 08/04/19 14:14 Lasix Oral Solution - GT 40 mg BID@0600,1400 T[facility] Administration IV Flush 4 ml 07/18/19 18:26 Triple Lumen Flush IVPUSH PRN PRN Protocol Vancomycin HCl 1,500 mg/ 500 mls @ 250 mls/hr 07/21/19 02:00 08/07/19 14:15 Dextrose IVPB 250 mls/hr Q12H T[facility]I Administration Protocol Propofol 1,000,000 mcg in 100 mls @ 2.531 mls/hr 07/31/19 14:00 08/07/19 14:14 Diprivan - IVPB 45 mcg/kg/min TITR T[facility]I 22.779 mls/hr Administration Protocol 5 MCG/KG/MIN Morphine Sulfate 100 mg in 100 mls @ 1 mls/hr 07/31/19 14:00 08/06/19 21:33 Morphine 100mg/100ml-0.9% Nacl IVPB 10 mg/hr TITR TIKI 10 mls/hr Administration Protocol 1 MG/HR Cefepime HCl 2 gm/ Dextrose 100 mls @ 200 mls/hr 08/06/19 18:00 08/07/19 09:37 IVPB 200 mls/hr Q8H-IV TIKI Administration Protocol Lacosamide 200 mg 07/31/19 11:52 08/07/19 09:37 Vimpat Injection - IVPB 200 mg BID T[facility]I Administration Levetiracetam 1,000 mg 07/31/19 11:51 08/07/19 10:12 Levetiracetam Oral Suspension GT Not Given BID [facility] Nystatin 500,000 units 08/06/19 08:08 08/07/19 09:37 Nystatin Oral Suspension - PO 500,000 units Q6HPO PRN Administration ORAL PAIN/MOUTH SORES Phenobarbital 60 mg 06/28/19 10:00 08/07/19 10:13 Phenobarbital Liquid - GT Not Given BID [facility] Polyethylene Glycol 17 gm 07/31/19 11:56 08/07/19 10:12 Miralax (For Daily Use) - GT Not Given BID [facility] Potassium Chloride 40 meq 07/31/19 11:56 08/07/19 10:13 Potassium Chloride Oral Liquid GT Not Given BID [facility] Spironolactone 50 mg 08/06/19 10:30 08/07/19 10:12 Aldactone - GT Not Given DAILY [facility] Topiramate 200 mg 07/31/19 11:58 08/07/19 14:15 Topamax - GT Not Given TID [facility] Zinc Sulfate 220 mg 07/31/19 12:13 08/07/19 10:13 Orazinc - GT Not Given BID [facility] ASSESSMENT/PLAN: 38M with PMH MR and epilepsy who presented to ED initially with SOB and hypoxia requiring intubation, admitted to hospital for hypoxic respiratory failure 2/2 to covid-19. #NEURO wakes intermittently and vented + Sedated on morphine and prop -epilepsy continue Keppra, Topamax, Vimpat, and phenobarbitol #PULM -Acute hypoxic respiratory failure 2/2 covid-19 intubated, s/p Plaquenil, convalescent plasma, and Actemra AC 30/280/60/5 Plat + PIP elevated- lung restrictive and stiff, will need to maintain low TV wean FIO2 with goal SpO2 >90% s/p Trach placement consent in chart cont Lovenox 80 BID #CARDIO off pressors cont Lovenox #ID previous sputum esbl, s/p ryan, casopofungin fungemia-quita- s/p 14 days cancidas- repeat cultures negative bacteremia- BCx- staph capitis- sensitive to vanc sputum- MRSA- sensitive to vanc continue vancomycin D21- total of 6 weeks needed, cefepime D7 #Renal hypokalemia BID NGT KCl 40mEq while on Lasix 40 BID IVP- will hold lasix due to tachycardia and to avoid excess volume loss- can consider resuming after reassessment in the am aldactone 50 Good UO #FEN diet continue tube feeds, when appropriate replete PRN #PPX DVT Lovenox 80 BID #GI ppx Protonix 40mg QD LTD ETT replaced 07/17 LSC TLC placed 07/17 removed today R radial A-line placed 07/17 Trach placed 08/06 DISPO: off pressors, cont abx, Lovenox tonight, cont feeds Visit type - Emergency Visit Emergency Visit: Yes ED Registration Date: 06/22/19 Care time: The patient presented to the Emergency Department on the above date and was hospitalized for further evaluation of their emergent condition. - New Patient This patient is new to me today: Yes Date on this admission: 09/02/19 - Critical Care Critical Care patient: No - Discharge Referral Referred to [facility] Med [facility].C[facility] No ATTENDING PHYSICIAN STATEMENT I saw and evaluated the patient. I reviewed the resident's note and discussed the case with the resident. I agree with the resident's findings and plan as documented. SUBJECTIVE: OBJECTIVE: ASSESSMENT AND PLAN:
--- NOTE | 2019-08-07 16:10 | PN ---
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 (short form) - Note 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: remains intubated trach today Vital Signs Period Temp Pulse Resp BP Sys/Ortiz Pulse Ox Last 24 Hr 97.8 F-101.1 F 71-122 10-31 91-147/49-66 99-100 cor-rrr lungs decreased bs at bases abd soft,nt ext pedal edema anthony CBC, BMP 08/07/19 06:10 08/06/19 05:40 Microbiology 08/04/19 19:50 Blood - Peripheral Venous Blood Culture - Preliminary NO GROWTH OBTAINED AFTER 48 HOURS, INCUBATION TO CONTINUE FOR 3 DAYS. 08/04/19 19:40 Blood - Peripheral Venous Blood Culture - Preliminary NO GROWTH OBTAINED AFTER 48 HOURS, INCUBATION TO CONTINUE FOR 3 DAYS. 08/05/19 13:45 Urine - Urine Anthony Urine Culture - Final NO GROWTH OBTAINED 07/31/19 16:30 Blood - Peripheral Venous Blood Culture - Final NO GROWTH AFTER 5 DAYS INCUBATION 07/31/19 17:25 Blood - Peripheral Venous Blood Culture - Final Staphylococcus Capitis 08/01/19 11:55 Sputum - Endotrachea Suction/Ventilator Gram Stain - Final 08/01/19 11:55 Sputum - Endotrachea Suction/Ventilator Sputum Culture - Final Mr S Aureus 07/29/19 11:46 Blood - Peripheral Venous Blood Culture - Final NO GROWTH AFTER 5 DAYS INCUBATION 07/29/19 11:18 Blood - Central Line Blood Culture - Final NO GROWTH AFTER 5 DAYS INCUBATION 07/29/19 11:18 Urine - Urine Anthony Urine Culture - Final NO GROWTH OBTAINED 07/12/19 11:04 Blood - Peripheral Venous Yeast/Fungus Identification - Final Janis Lusitaniae 07/18/19 21:10 Blood - Peripheral Venous Blood Culture - Final NO GROWTH AFTER 5 DAYS INCUBATION 07/18/19 18:30 Blood - Peripheral Venous Blood Culture - Final NO GROWTH AFTER 5 DAYS INCUBATION 07/15/19 12:25 Blood - Peripheral Venous Blood Culture - Final NO GROWTH AFTER 5 DAYS INCUBATION 07/16/19 15:15 Blood - Peripheral Venous Blood Culture - Final Staphylococcus Epidermidis 07/14/19 11:30 Blood - Peripheral Venous Blood Culture - Final NO GROWTH AFTER 5 DAYS INCUBATION 07/16/19 15:05 Blood - Peripheral Venous Blood Culture - Final Staphylococcus Epidermidis 07/16/19 12:30 Sputum - Endotrachea Suction/Ventilator Gram Stain - Final 07/16/19 12:30 Sputum - Endotrachea Suction/Ventilator Sputum Culture - Final S Aureus Escherichia Coli 07/12/19 10:55 Blood - Peripheral Venous Blood Culture - Final NO GROWTH AFTER 5 DAYS INCUBATION 07/16/19 12:30 Urine - Urine - Catheterized Urine Culture - Final NO GROWTH OBTAINED 07/12/19 06:00 Sputum - Endotrachea Suction/Ventilator Gram Stain - Final 07/12/19 06:00 Sputum - Endotrachea Suction/Ventilator Sputum Culture - Final 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 S Aureus 07/12/19 11:04 Blood - Peripheral Venous Blood Culture - Final 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 07/01/19 18:15 Blood - Peripheral Venous Blood Culture - Final NO GROWTH AFTER 5 DAYS INCUBATION 06/29/19 12:30 Blood - Peripheral Venous Blood Culture - Final Staphylococcus Epidermidis 06/30/19 17:15 Sputum - Endotrachea Suction/Ventilator Gram Stain - Final 06/30/19 17:15 Sputum - Endotrachea Suction/Ventilator Sputum Culture - Final Escherichia Coli Esbl Solid Die Cutter 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 06/28/19 09:00 Blood - Peripheral Venous Blood Culture - Final Staphylococcus Epidermidis 06/28/19 12:50 Sputum - Endotrachea Suction/Ventilator Gram Stain - Final 06/28/19 12:50 Sputum - Endotrachea Suction/Ventilator Sputum Culture - Final 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 Staphylococcus Aureus 06/25/19 13:40 Blood - Peripheral Venous Blood Culture - Final NO GROWTH AFTER 5 DAYS INCUBATION 06/25/19 13:20 Blood - Peripheral Venous Blood Culture - Final NO GROWTH AFTER 5 DAYS INCUBATION 06/28/19 12:51 Urine - Urine Anthony Urine Culture - Final NO GROWTH OBTAINED 06/22/19 13:00 Blood - Peripheral Venous Blood Culture - Final Staphylococcus Warneri 06/22/19 13:00 Blood - Peripheral Venous Blood Culture - Final Staphylococcus Epidermidis 06/24/19 00:01 Urine - Urine Anthony Urine Culture - Final NO GROWTH OBTAINED 06/24/19 00:01 Urine For Antigen Detection Legionella Antigen - Final 06/24/19 00:01 Urine For Antigen Detection Streptococcus pneumoniae Antigen (M - Final cxray unchanged vanco trough 12 covid pcr negative (repeat) quantiferon negative imp/reccd s/p trach today intermittent fevers- d/c cefepime ARDS/pneumonia- bacteremia- recurrent staph epi bacteremia- ?endocarditis- echo unrevealing- continue vancomycin, day #23-plan 6 weeks repeat blood culture positive one bottle-staph capitus- suspect contaminant fungemia- janis lusitanae- has completed 14 days cancidas- repeat cultures negative covid 19 positive -repeat pcr negative s/p convalescent plasma s/p tocilizumab MRSA isolation for positive sputum culture- esbl isolation for prior sputum ecoli esbl d/w ICU team s/p trch today consider ct scan head/sinuses if fevers recur repeat vanco trough weekly continue vancomycin d/c cefepime Problem List - Problems (1) Suspected COVID-19 virus infection Code(s): R68.89 - OTHER GENERAL SYMPTOMS AND SIGNS (2) Acute respiratory failure with hypoxia Code(s): J96.01 - ACUTE RESPIRATORY FAILURE WITH HYPOXIA (3) Bacteremia Code(s): R78.81 - BACTEREMIA
--- NOTE | 2019-08-07 16:42 | PN ---
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, Physician History of Present Illness: Pt seen and examined at bedside. He remains intubated in the ICU. - Current Medication List Current Medications: Active Medications Acetaminophen (Tylenol Oral Solution -) 650 mg GT Q6H PRN PRN Reason: FEVER Last Admin: 08/06/19 18:10 Dose: 650 mg Documented by: Amino Acids (Prosource No Carb Liquid Pkt) 30 ml GT BID@0800,1730 [facility] Last Admin: 08/07/19 08:01 Dose: Not Given Documented by: Artificial Tears (Artificial Tears) 1 drop OU BID PRN PRN Reason: DRY EYES Last Admin: 07/27/19 21:21 Dose: 1 drop Documented by: Ascorbic Acid (Vitamin C Oral Solution -) 500 mg GT DAILY [facility] Last Admin: 08/07/19 10:13 Dose: Not Given Documented by: Chlorhexidine Gluconate (Hibiclens For Decolonization -) 1 applic TP HS [facility] Last Admin: 08/06/19 21:12 Dose: 1 applic Documented by: Cholecalciferol (Vitamin D3 -) 800 unit NR DAILY [facility] Last Admin: 08/07/19 10:13 Dose: Not Given Documented by: Enoxaparin Sodium (Lovenox -) 80 mg SQ BID [facility]I Famotidine (Pepcid) 40 mg NR DAILY [facility] Last Admin: 08/07/19 10:13 Dose: Not Given Documented by: Furosemide (Lasix Oral Solution -) 40 mg GT BID@0600,1400 [facility] Last Admin: 08/04/19 14:14 Dose: 40 mg Documented by: IV Flush (Triple Lumen Flush) 4 ml IVPUSH PRN PRN PRN Reason: Protocol Vancomycin HCl 1,500 mg/ (Dextrose) 500 mls @ 250 mls/hr IVPB Q12H [facility]; Protocol Last Admin: 08/07/19 14:15 Dose: 250 mls/hr Documented by: Propofol (Diprivan -) 1,000,000 mcg in 100 mls @ 2.531 mls/hr IVPB TITR [facility]; Protocol Last Admin: 08/07/19 14:14 Dose: 45 mcg/kg/min, 22.779 mls/hr Documented by: Morphine Sulfate (Morphine 100mg/100ml-0.9% Nacl) 100 mg in 100 mls @ 1 mls/hr IVPB TITR [facility]; Protocol Last Admin: 08/06/19 21:33 Dose: 10 mg/hr, 10 mls/hr Documented by: Lacosamide (Vimpat Injection -) 200 mg IVPB BID [facility] Last Admin: 08/07/19 09:37 Dose: 200 mg Documented by: Levetiracetam (Levetiracetam Oral Suspension) 1,000 mg GT BID [facility] Last Admin: 08/07/19 10:12 Dose: Not Given Documented by: Nystatin (Nystatin Oral Suspension -) 500,000 units PO Q6HPO PRN PRN Reason: ORAL PAIN/MOUTH SORES Last Admin: 08/07/19 09:37 Dose: 500,000 units Documented by: Phenobarbital (Phenobarbital Liquid -) 60 mg GT BID [facility] Last Admin: 08/07/19 10:13 Dose: Not Given Documented by: Polyethylene Glycol (Miralax (For Daily Use) -) 17 gm GT BID [facility] Last Admin: 08/07/19 10:12 Dose: Not Given Documented by: Potassium Chloride (Potassium Chloride Oral Liquid) 40 meq GT BID [facility] Last Admin: 08/07/19 10:13 Dose: Not Given Documented by: Spironolactone (Aldactone -) 50 mg GT DAILY [facility] Last Admin: 08/07/19 10:12 Dose: Not Given Documented by: Topiramate (Topamax -) 200 mg GT TID [facility] Last Admin: 08/07/19 14:15 Dose: Not Given Documented by: Zinc Sulfate (Orazinc -) 220 mg GT BID [facility] Last Admin: 08/07/19 10:13 Dose: Not Given Documented by: - Objective Vital Signs: Vital Signs Temperature 99.2 F 08/07/19 12:00 Pulse Rate 102 H 08/07/19 14:00 Respiratory Rate 30 H 08/07/19 16:25 Blood Pressure 112/64 08/07/19 14:00 O2 Sat by Pulse Oximetry (%) 100 08/07/19 12:18 Constitutional: Yes: Calm Eyes: Yes: Conjunctiva Clear HENT: Yes: Atraumatic Neck: Yes: Supple Cardiovascular: Yes: S1, S2 Respiratory: Yes: Mechanically Ventilated Gastrointestinal: Yes: Soft Genitourinary: Yes: Caceres Present Edema: Yes Edema: LLE: Trace, RLE: Trace Neurological: Yes: Other (awake) Labs: CBC, BMP 08/07/19 06:10 08/06/19 05:40 INR, PTT INR 1.01 (0.83-1.09) 07/28/19 05:00 Problem List - Problems (1) Hypernatremia Code(s): E87.0 - HYPEROSMOLALITY AND HYPERNATREMIA (2) Hypokalemia Code(s): E87.6 - HYPOKALEMIA (3) Acute respiratory failure with hypoxia Code(s): J96.01 - ACUTE RESPIRATORY FAILURE WITH HYPOXIA (4) Bacteremia Code(s): R78.81 - BACTEREMIA Assessment/Plan Current Medication Current Medications Generic Name Dose Route Start Last Admin Trade Name Freq PRN Reason Stop Dose Admin Acetaminophen 650 mg 07/31/19 11:33 08/06/19 18:10 Tylenol Oral Solution - GT 650 mg Q6H PRN Administration FEVER Amino Acids 30 ml 07/31/19 11:33 08/07/19 08:01 Prosource No Carb Liquid Pkt GT Not Given BID@0800,1730 [facility] Artificial Tears 1 drop 07/27/19 09:32 07/27/19 21:21 Artificial Tears OU 1 drop BID PRN Administration DRY EYES Ascorbic Acid 500 mg 07/31/19 11:35 08/07/19 10:13 Vitamin C Oral Solution - GT Not Given DAILY [facility] Chlorhexidine Gluconate 1 applic 06/22/19 22:00 08/06/19 21:12 Hibiclens For Decolonization - TP 1 applic HS [facility]IKI Administration Cholecalciferol 800 unit 07/31/19 11:35 08/07/19 10:13 Vitamin D3 - NR Not Given DAILY [facility] Enoxaparin Sodium 80 mg 08/07/19 18:00 Lovenox - SQ BID [facility] Famotidine 40 mg 07/31/19 11:53 08/07/19 10:13 Pepcid NR Not Given DAILY [facility] Furosemide 40 mg 07/31/19 14:00 08/04/19 14:14 Lasix Oral Solution - GT 40 mg BID@0600,1400 TIKI Administration IV Flush 4 ml 07/18/19 18:26 Triple Lumen Flush IVPUSH PRN PRN Protocol Vancomycin HCl 1,500 mg/ 500 mls @ 250 mls/hr 07/21/19 02:00 08/07/19 14:15 Dextrose IVPB 250 mls/hr Q12H TIKI Administration Protocol Propofol 1,000,000 mcg in 100 mls @ 2.531 mls/hr 07/31/19 14:00 08/07/19 14:14 Diprivan - IVPB 45 mcg/kg/min TITR TIKI 22.779 mls/hr Administration Protocol 5 MCG/KG/MIN Morphine Sulfate 100 mg in 100 mls @ 1 mls/hr 07/31/19 14:00 08/06/19 21:33 Morphine 100mg/100ml-0.9% Nacl IVPB 10 mg/hr TITR TIKI 10 mls/hr Administration Protocol 1 MG/HR Lacosamide 200 mg 07/31/19 11:52 08/07/19 09:37 Vimpat Injection - IVPB 200 mg BID [facility]IKI Administration Levetiracetam 1,000 mg 07/31/19 11:51 08/07/19 10:12 Levetiracetam Oral Suspension GT Not Given BID [facility] Nystatin 500,000 units 08/06/19 08:08 08/07/19 09:37 Nystatin Oral Suspension - PO 500,000 units Q6HPO PRN Administration ORAL PAIN/MOUTH SORES Phenobarbital 60 mg 06/28/19 10:00 08/07/19 10:13 Phenobarbital Liquid - GT Not Given BID [facility] Polyethylene Glycol 17 gm 07/31/19 11:56 08/07/19 10:12 Miralax (For Daily Use) - GT Not Given BID [facility] Potassium Chloride 40 meq 07/31/19 11:56 08/07/19 10:13 Potassium Chloride Oral Liquid GT Not Given BID [facility] Spironolactone 50 mg 08/06/19 10:30 08/07/19 10:12 Aldactone - GT Not Given DAILY [facility] Topiramate 200 mg 07/31/19 11:58 08/07/19 14:15 Topamax - GT Not Given TID [facility] Zinc Sulfate 220 mg 07/31/19 12:13 08/07/19 10:13 Orazinc - GT Not Given BID [facility] Impression 1. hypokalemia 2. hypernatremia 3. resp failure 4. fungemia 5. covid 19 infection 6. ards 7. developemental delay 8. epilepsy 9. bactermia 10. resp acidosis with compensatory met alk Plan - monitor lytes - monitor volume status - cont aldactone - lasix prn - monitor potassium - will follow prn
[2019-08-07] MEDS ORDERED: ENOXAPARIN NA (PORCINE) 80 MG/0.8 ML DISP.SYRIN SQ ONE (18:00)
[2019-08-07] MEDS: ENOXAPARIN NA (PORCINE) 80 MG/0.8 ML DISP.SYRIN SQ SCH (18:39)
[2019-08-07] MEDS: MORPHINE SULFATE/0.9% NACL/PF 100 MG/100 ML BAG IVPB SCH ×2 (19:52→19:53)
[2019-08-07] MEDS: CHLORHEXIDINE GLUCONATE 4% CLEANSER FOR DECOLONIZATION TP SCH (21:18)
[2019-08-08] MEDS ORDERED: PT OWN MED DRAWER 7, Y5N ONE (02:05)
[2019-08-08] MEDS: VANCOMYCIN HCL 1,500 MG in DEXTROSE 5%-WATER - 500 ML IVPB SCH ×2 (02:15→14:05)
[2019-08-08] MEDS: MORPHINE SULFATE/0.9% NACL/PF 100 MG/100 ML BAG IVPB SCH ×2 (02:16→18:35)
[2019-08-08] MEDS: TOPIRAMATE 200 MG TABLET GT SCH (05:53)
[2019-08-08] MEDS: FUROSEMIDE 40 MG/5 ML UNIT-DOSE CUP GT SCH ×2 (05:53→15:16)
[2019-08-08] MEDS: PROPOFOL 1,000,000 MCG/100 ML VIAL IVPB SCH ×2 (05:54→18:34)
[2019-08-08 07:46] LABS: ANION GAP 4 MMOL/L (8-16); BLOOD UREA NITROGEN 4.7 mg/dL (7-18); CALCIUM 9.3 mg/dL (8.5-10.1); CHLORIDE 97 mmol/L (98-107); CO2 36 mmol/L (21-32); GLUCOSE,RANDOM 88 mg/dL (74-106); POTASSIUM 4.1 mmol/L (3.5-5.1); SODIUM 136 mmol/L (136-145)
[2019-08-08 08:35] LABS: CREATININE < 0.2 mg/dL (0.55-1.3)
[2019-08-08] MEDS ORDERED: PHENobarbital SODIUM 65 MG/1 ML VIAL IVPUSH SCH (10:30)
[2019-08-08] MEDS ORDERED: levETIRAcetam 500 MG/5 ML INJECTION VIAL IVPB SCH (10:30)
--- NOTE | 2019-08-08 10:37 | PN ---
Teaching Attending Note Name of Resident: Tomi Moya ATTENDING PHYSICIAN STATEMENT I saw and evaluated the patient. I reviewed the resident's note and discussed the case with the resident. I agree with the resident's findings and plan as documented. SUBJECTIVE: Pt seen and examined in the ICU. s/p tracheostomy yesterday without complication s. Sedated overnight. No pressors. Vented on volume assist control with 60% FiO2, PEEP 5. Good urine output. OBJECTIVE: Vital Signs Period Temp Pulse Resp BP Sys/Ortiz Pulse Ox Last 24 Hr 97.6 F-99.2 F 84-102 30-30 94-112/54-64 100-100 Intake & Output 08/05/19 08/06/19 08/07/19 08/08/19 23:59 23:59 23:59 23:59 Intake Total 2768.0 1745 2341.1 945 Output Total 3500 1050 1850 350 Balance -732.0 695 491.1 595 Weight 84.368 kg 85.729 kg 85.729 kg Gen: trached, awake Heart: RRR Lung: decreased breath sounds at the bases Abd: soft, nontender Ext: + edema CBC, BMP 08/07/19 06:10 08/08/19 06:00 Active Medications Acetaminophen (Tylenol Oral Solution -) 650 mg GT Q6H PRN PRN Reason: FEVER Last Admin: 08/06/19 18:10 Dose: 650 mg Documented by: Amino Acids (Prosource No Carb Liquid Pkt) 30 ml GT BID@0800,1730 [facility] Last Admin: 08/07/19 18:38 Dose: Not Given Documented by: Artificial Tears (Artificial Tears) 1 drop OU BID PRN PRN Reason: DRY EYES Last Admin: 07/27/19 21:21 Dose: 1 drop Documented by: Ascorbic Acid (Vitamin C Oral Solution -) 500 mg GT DAILY [facility] Last Admin: 08/07/19 10:13 Dose: Not Given Documented by: Chlorhexidine Gluconate (Hibiclens For Decolonization -) 1 applic TP HS [facility] Last Admin: 08/07/19 21:18 Dose: Not Given Documented by: Cholecalciferol (Vitamin D3 -) 800 unit NR DAILY [facility] Last Admin: 08/07/19 10:13 Dose: Not Given Documented by: Enoxaparin Sodium (Lovenox -) 80 mg SQ BID [facility] Last Admin: 08/07/19 18:39 Dose: 80 mg Documented by: Famotidine (Pepcid) 40 mg NR DAILY [facility] Last Admin: 08/07/19 10:13 Dose: Not Given Documented by: Furosemide (Lasix Oral Solution -) 40 mg GT BID@0600,1400 [facility] Last Admin: 08/08/19 05:53 Dose: Not Given Documented by: IV Flush (Triple Lumen Flush) 4 ml IVPUSH PRN PRN PRN Reason: Protocol Vancomycin HCl 1,500 mg/ (Dextrose) 500 mls @ 250 mls/hr IVPB Q12H [facility]; Protocol Last Admin: 08/08/19 02:15 Dose: 250 mls/hr Documented by: Propofol (Diprivan -) 1,000,000 mcg in 100 mls @ 2.531 mls/hr IVPB TITR [facility]; P rotocol Last Admin: 08/08/19 05:54 Dose: 50 mcg/kg/min, 25.31 mls/hr Documented by: Morphine Sulfate (Morphine 100mg/100ml-0.9% Nacl) 100 mg in 100 mls @ 1 mls/hr IVPB TITR [facility]; Protocol Last Admin: 08/08/19 02:16 Dose: 10 mg/hr, 10 mls/hr Documented by: Lacosamide (Vimpat Injection -) 200 mg IVPB BID [facility] Last Admin: 08/07/19 21:17 Dose: 200 mg Documented by: Levetiracetam (Keppra Injection -) 1,000 mg IVPB BID [facility] Nystatin (Nystatin Oral Suspension -) 500,000 units PO Q6HPO PRN PRN Reason: ORAL PAIN/MOUTH SORES Last Admin: 08/07/19 09:37 Dose: 500,000 units Documented by: Phenobarbital (Phenobarbital Injection -) 65 mg IVPUSH BID [facility] Polyethylene Glycol (Miralax (For Daily Use) -) 17 gm GT BID [facility] Last Admin: 08/07/19 21:19 Dose: Not Given Documented by: Potassium Chloride (Potassium Chloride Oral Liquid) 40 meq GT BID [facility] Last Admin: 08/07/19 21:19 Dose: Not Given Documented by: Spironolactone (Aldactone -) 50 mg GT DAILY [facility] Last Admin: 06/05/20 10:12 Dose: Not Given Documented by: Topiramate (Topamax -) 200 mg GT TID [facility] Last Admin: 08/08/19 05:53 Dose: Not Given Documented by: Zinc Sulfate (Orazinc -) 220 mg GT BID [facility] Last Admin: 08/07/19 21:19 Dose: Not Given Documented by: ASSESSMENT AND PLAN: Acute Hypoxic and Hypercapneic Respiratory Failure COVID19 Pneumonia E Coli Pneumonia Fungenmia Bacteremia Septic Shock Seizure Disorder Mental Retardation - continue antibiotics per ID - continue antiepileptics - lasix, aldactone - monitor urine output, creatinine - low tidal volume ventilation - titrate FiO2, PEEP to keep SpO2 >90% - hold sedation to assess mental status - spontaeneous breathing trials as tolerated - enteral feeds - DVT/GI prophylaxis - can monitor on vent floor critical care time spent in reviewing chart, evaluating patient and formulating plan 35 min
--- NOTE | 2019-08-08 10:41 | PN ---
Physical Exam: SUBJECTIVE: Patient seen and examined at bedside. Awake, alert, off sedation. Does not follow commands or respond. Grimace to light sternal rub OBJECTIVE: Vital Signs Period Temp Pulse Resp BP Sys/Ortiz Pulse Ox Last 24 Hr 97.6 F-99.2 F 84-102 30-30 94-112/54-64 100-100 Gen: Awake, alert HEENT: NCAT, EOMI, divergent strabismus Neck: trach in place. clean, dry, intact Cardio: rrr, normal s1s2, no mrg Pulm: anterior & lateral chest with clear breath sounds b/l Abd: soft, nondistended Ext: mild edema Laboratory Results - last 24 hr 08/07/19 08/08/19 13:35 06:00 Sodium 136 Potassium 4.1 Chloride 97 L Carbon Dioxide 36 H Anion Gap 4 L BUN 4.7 L Creatinine < 0.2 L Est GFR (CKD-EPI)AfAm 232.19 Est GFR (CKD-EPI)NonAf 200.34 Random Glucose 88 Calcium 9.3 Vancomycin Pre-Dose 12.4 H Active Medications Generic Name Dose Route Start Last Admin Trade Name Freq PRN Reason Stop Dose Admin Acetaminophen 650 mg 07/31/19 11:33 08/06/19 18:10 Tylenol Oral Solution - GT 650 mg Q6H PRN Administration FEVER Amino Acids 30 ml 07/31/19 11:33 08/07/19 18:38 Prosource No Carb Liquid Pkt GT Not Given BID@0800,1730 [facility] Artificial Tears 1 drop 07/27/19 09:32 07/27/19 21:21 Artificial Tears OU 1 drop BID PRN Administration DRY EYES Ascorbic Acid 500 mg 07/31/19 11:35 08/07/19 10:13 Vitamin C Oral Solution - GT Not Given DAILY [facility] Chlorhexidine Gluconate 1 applic 06/22/19 22:00 08/07/19 21:18 Hibiclens For Decolonization - TP Not Given HS [facility] Cholecalciferol 800 unit 07/31/19 11:35 08/07/19 10:13 Vitamin D3 - NR Not Given DAILY [facility] Enoxaparin Sodium 80 mg 08/07/19 18:00 08/07/19 18:39 Lovenox - SQ 80 mg BID TIKI Administration Famotidine 40 mg 07/31/19 11:53 08/07/19 10:13 Pepcid NR Not Given DAILY TIKI Furosemide 40 mg 07/31/19 14:00 08/08/19 05:53 Lasix Oral Solution - GT Not Given BID@0600,1400 TIKI IV Flush 4 ml 07/18/19 18:26 Triple Lumen Flush IVPUSH PRN PRN Protocol Vancomycin HCl 1,500 mg/ 500 mls @ 250 mls/hr 07/21/19 02:00 08/08/19 02:15 Dextrose IVPB 250 mls/hr Q12H TIKI Administration Protocol Propofol 1,000,000 mcg in 100 mls @ 2.531 mls/hr 07/31/19 14:00 08/08/19 05:54 Diprivan - IVPB 50 mcg/kg/min TITR TIKI 25.31 mls/hr Administration Protocol 5 MCG/KG/MIN Morphine Sulfate 100 mg in 100 mls @ 1 mls/hr 07/31/19 14:00 08/08/19 02:16 Morphine 100mg/100ml-0.9% Nacl IVPB 10 mg/hr TITR TIKI 10 mls/hr Administration Protocol 1 MG/HR Lacosamide 200 mg 07/31/19 11:52 08/07/19 21:17 Vimpat Injection - IVPB 200 mg BID TIKI Administration Levetiracetam 1,000 mg 08/08/19 10:30 Keppra Injection - IVPB BID [facility] Nystatin 500,000 units 08/06/19 08:08 08/07/19 09:37 Nystatin Oral Suspension - PO 500,000 units Q6HPO PRN Administration ORAL PAIN/MOUTH SORES Phenobarbital 65 mg 08/08/19 10:30 Phenobarbital Injection - IVPUSH BID [facility] Polyethylene Glycol 17 gm 07/31/19 11:56 08/07/19 21:19 Miralax (For Daily Use) - GT Not Given BID [facility] Potassium Chloride 40 meq 07/31/19 11:56 08/07/19 21:19 Potassium Chloride Oral Liquid GT Not Given BID [facility] Spironolactone 50 mg 08/06/19 10:30 08/07/19 10:12 Aldactone - GT Not Given DAILY [facility] Topiramate 200 mg 07/31/19 11:58 08/08/19 05:53 Topamax - GT Not Given TID [facility] Zinc Sulfate 220 mg 07/31/19 12:13 08/07/19 21:19 Orazinc - GT Not Given BID TIKI ASSESSMENT/PLAN: 38M with PMH MR and epilepsy who presented to ED initially with SOB and hypoxia requiring intubation, admitted to hospital for hypoxic respiratory failure 2/2 to covid-19. #NEURO off sedation today epilepsy-AEDs converted to IV as pt has no OG tube and is not swallowing well. Held Topiramate #PULM -Acute hypoxic respiratory failure 2/2 covid-19 now with tracheostomy (08/07/2019), s/p Plaquenil, convalescent plasma, and Actemra AC 30/280/60/5 Plat + PIP elevated- lung restrictive and stiff, will need to maintain low TV wean FIO2 with goal SpO2 >90% cont Lovenox 80 BID #CARDIO off pressors cont Lovenox #ID previous sputum esbl, s/p ryan, casopofungin fungemia-quita- s/p 14 days cancidas- repeat cultures negative bacteremia- BCx- staph capitis- sensitive to vanc sputum- MRSA- sensitive to vanc continue vancomycin day 24 - total of 6 weeks needed, d/c cefepime ID on board #Renal hypokalemia BID NGT KCl 40mEq while on Lasix 40 BID IVP aldactone 50 Good UO #FEN diet continue tube feeds, when appropriate replete PRN #PPX DVT Lovenox 80 BID #GI ppx Protonix 40mg QD Stable for transfer to Visit type - Emergency Visit Emergency Visit: No - New Patient This patient is new to me today: No - Critical Care Critical Care patient: No ATTENDING PHYSICIAN STATEMENT I saw and evaluated the patient. I reviewed the resident's note and discussed the case with the resident. I agree with the resident's findings and plan as documented. SUBJECTIVE: OBJECTIVE: ASSESSMENT AND PLAN:
[2019-08-08] MEDS: Lacosamide 200 MG/20 ML VIAL IVPB SCH ×2 (10:45→22:03)
[2019-08-08] MEDS: ZINC SULFATE 220 MG CAPSULE (FP) GT SCH ×2 (10:45→21:27)
[2019-08-08] MEDS: POLYETHYLENE GLYCOL 3350 119 GM BTL GT SCH ×2 (10:45→21:27)
[2019-08-08] MEDS: ENOXAPARIN NA (PORCINE) 80 MG/0.8 ML DISP.SYRIN SQ SCH (10:49)
[2019-08-08] MEDS: AMINO ACIDS/PROTEIN HYDROLYS 30 ML LIQUID.PKT GT SCH ×2 (11:45→18:35)
[2019-08-08] MEDS: SPIRONOLACTONE 25 MG TABLET GT SCH (11:49)
[2019-08-08] MEDS: FAMOTIDINE 40 MG/5 ML ORAL SUSPENSION NR SCH (11:50)
[2019-08-08] MEDS: POTASSIUM CHLORIDE ORAL LIQUID 20 MEQ/15 ML GT SCH ×2 (11:50→21:42)
[2019-08-08] MEDS: CHOLECALCIFEROL (VIT D3) 400 UNIT (10 MCG) TABLET NR SCH (11:51)
[2019-08-08] MEDS: ASCORBIC ACID 500 MG/5 ML UNIT DOSE CUP GT SCH (11:51)
[2019-08-08] MEDS: PHENobarbital 20 MG/5 ML UNIT-DOSE CUP GT SCH (11:54)
[2019-08-08] MEDS: levETIRAcetam 500 MG/5 ML ORAL SOLUTION BULK GT SCH (11:54)
--- NOTE | 2019-08-08 12:15 | PN ---
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, Physician Chief Complaint: INTUBATED, SEDATED ON VENTILATOR EYES OPEN TEMPS, WBC DOWN History of Present Illness: INTUBATED TEMPS DOWN AFEBRILE WBC WNL BC SCN X2 - Current Medication List Current Medications: Active Medications Acetaminophen (Tylenol Oral Solution -) 650 mg GT Q6H PRN PRN Reason: FEVER Last Admin: 08/06/19 18:10 Dose: 650 mg Documented by: Amino Acids (Prosource No Carb Liquid Pkt) 30 ml GT BID@0800,1730 [facility] Last Admin: 08/08/19 11:45 Dose: Not Given Documented by: Artificial Tears (Artificial Tears) 1 drop OU BID PRN PRN Reason: DRY EYES Last Admin: 07/27/19 21:21 Dose: 1 drop Documented by: Ascorbic Acid (Vitamin C Oral Solution -) 500 mg GT DAILY [facility] Last Admin: 08/08/19 11:51 Dose: Not Given Documented by: Chlorhexidine Gluconate (Hibiclens For Decolonization -) 1 applic TP HS [facility] Last Admin: 08/07/19 21:18 Dose: Not Given Documented by: Cholecalciferol (Vitamin D3 -) 800 unit NR DAILY [facility] Last Admin: 08/08/19 11:51 Dose: Not Given Documented by: Enoxaparin Sodium (Lovenox -) 80 mg SQ BID [facility] Last Admin: 08/08/19 10:49 Dose: 80 mg Documented by: Famotidine (Pepcid) 40 mg NR DAILY [facility] Last Admin: 08/08/19 11:50 Dose: Not Given Documented by: Furosemide (Lasix Oral Solution -) 40 mg GT BID@0600,1400 [facility] Last Admin: 08/08/19 05:53 Dose: Not Given Documented by: IV Flush (Triple Lumen Flush) 4 ml IVPUSH PRN PRN PRN Reason: Protocol Vancomycin HCl 1,500 mg/ (Dextrose) 500 mls @ 250 mls/hr IVPB Q12H [facility]; Protocol Last Admin: 08/08/19 02:15 Dose: 250 mls/hr Documented by: Propofol (Diprivan -) 1,000,000 mcg in 100 mls @ 2.531 mls/hr IVPB TITR [facility]; Protocol Last Titration: 08/08/19 08:52 Dose: 0 mcg/kg/min, 0 mls/hr Documented by: Morphine Sulfate (Morphine 100mg/100ml-0.9% Nacl) 100 mg in 100 mls @ 1 mls/hr IVPB TITR [facility]; Protocol Last Infusion: 08/08/19 08:52 Dose: 0 mg/hr, 0 mls/hr Documented by: Lacosamide (Vimpat Injection -) 200 mg IVPB BID [facility] Last Admin: 08/08/19 10:45 Dose: 200 mg Documented by: Levetiracetam (Keppra Injection -) 1,000 mg IVPB BID [facility] Last Admin: 08/08/19 10:45 Dose: 1,000 mg Documented by: Nystatin (Nystatin Oral Suspension -) 500,000 units PO Q6HPO PRN PRN Reason: ORAL PAIN/MOUTH SORES Last Admin: 08/07/19 09:37 Dose: 500,000 units Documented by: Phenobarbital (Phenobarbital Injection -) 65 mg IVPUSH BID [facility] Last Admin: 08/08/19 10:45 Dose: 65 mg Documented by: Polyethylene Glycol (Miralax (For Daily Use) -) 17 gm GT BID [facility] Last Admin: 08/08/19 10:45 Dose: Not Given Documented by: Potassium Chloride (Potassium Chloride Oral Liquid) 40 meq GT BID [facility] Last Admin: 08/08/19 11:50 Dose: Not Given Documented by: Spironolactone (Aldactone -) 50 mg GT DAILY [facility] Last Admin: 08/08/19 11:49 Dose: Not Given Documented by: Topiramate (Topamax -) 200 mg GT TID [facility] Last Admin: 08/08/19 05:53 Dose: Not Given Documented by: Zinc Sulfate (Orazinc -) 220 mg GT BID [facility] Last Admin: 08/08/19 10:45 Dose: Not Given Documented by: - Objective Vital Signs: Vital Signs Temperature 98.0 F 08/08/19 05:58 Pulse Rate 94 H 08/08/19 05:58 Respiratory Rate 30 H 08/08/19 08:20 Blood Pressure 94/57 L 08/08/19 05:58 O2 Sat by Pulse Oximetry (%) 100 08/08/19 08:20 Constitutional: Yes: No Distress Cardiovascular: Yes: Regular Rate and Rhythm, S1, S2 Respiratory: Yes: Mechanically Ventilated Gastrointestinal: Yes: Normal Bowel Sounds, Soft. No: Tenderness Edema: Yes Labs: CBC, BMP 08/07/19 06:10 08/08/19 06:00 INR, PTT INR 1.01 (0.83-1.09) 07/28/19 05:00 Assessment/Plan RESP FAILURE BILATERAL PNEUMONIA/ARDS + SPUTUM MRSA/ ECOLI COVID-19+ S/P TOCILIZUMAB, PLASMA +BC SCN, CATARINO CONTINUE VENTILATORY SUPPORT VANCOMYCIN AIRBORNE PRECAUTIONS
[2019-08-08] MEDS ORDERED: PROPOFOL 1,000,000 MCG/100 ML VIAL IVPB SCH ×2 (18:05→18:15)
[2019-08-08] MEDS ORDERED: MORPHINE SULFATE/0.9% NACL/PF 100 MG/100 ML BAG IVPB SCH (18:05)
[2019-08-08] MEDS ORDERED: TRIPLE LUMEN FLUSH 4 ML ML IVPUSH PRN (18:05)
[2019-08-08] MEDS ORDERED: NYSTATIN 500,000 UNITS/5 ML SUSPENSION PO PRN (18:05)
[2019-08-08] MEDS ORDERED: ENOXAPARIN NA (PORCINE) 80 MG/0.8 ML DISP.SYRIN SQ ONE (18:05)
[2019-08-08] MEDS: MORPHINE SULFATE 2 MG/ML VIAL IVPUSH PRN (19:44)
[2019-08-08] MEDS: levETIRAcetam 500 MG/5 ML INJECTION VIAL IVPB SCH (21:35)
[2019-08-08] MEDS: PHENobarbital SODIUM 65 MG/1 ML VIAL IVPUSH SCH (21:59)
[2019-08-08] MEDS ORDERED: CHLORHEXIDINE GLUCONATE 4% CLEANSER FOR DECOLONIZATION TP SCH (22:00)
[2019-08-08] MEDS ORDERED: MORPHINE SULFATE 2 MG/ML VIAL IVPUSH ONE (22:38)
[2019-08-08] MEDS: KCL 10 MEQ IVPB 10 MEQ/100 ML INFUS.BAG IVPB SCH (22:50)
[2019-08-09] MEDS: KCL 10 MEQ IVPB 10 MEQ/100 ML INFUS.BAG IVPB SCH (00:03)
[2019-08-09 00:18] LABS: ARTERIAL BLOOD GAS PCO2 56.6 mmHg (35-45); ARTERIAL BLOOD GAS pH 7.41 (7.35-7.45)
[2019-08-09 00:19] LABS: ARTERIAL BLD GAS O2 SATURATION 97.4 % (95-98); ARTERIAL BLOOD GAS BASE EXCESS 9.3 mmol/L (-2-2); ARTERIAL BLOOD GAS PO2 99.1 mmHg (80-100)
[2019-08-09 00:20] LABS: ALLENS TEST POSITIVE
[2019-08-09] MEDS: VANCOMYCIN HCL 1,500 MG in DEXTROSE 5%-WATER - 500 ML IVPB SCH ×2 (01:40→14:34)
[2019-08-09] MEDS: MORPHINE SULFATE 2 MG/ML VIAL IVPUSH PRN (03:33)
[2019-08-09] MEDS: ENOXAPARIN NA (PORCINE) 80 MG/0.8 ML DISP.SYRIN SQ SCH ×3 (05:44→17:28)
[2019-08-09] MEDS ORDERED: FUROSEMIDE 40 MG/4 ML INJECTABLE VIAL IVPUSH ONE (06:00)
[2019-08-09] MEDS ORDERED: FUROSEMIDE 40 MG/5 ML UNIT-DOSE CUP GT SCH (06:00)
[2019-08-09] MEDS: AMINO ACIDS/PROTEIN HYDROLYS 30 ML LIQUID.PKT GT SCH ×2 (09:04→17:28)
[2019-08-09 09:26] LABS: BASO % 0.9 % (0-2.0); EOS % 0.8 % (0-4.5); HEMATOCRIT 29.4 % (35.4-49); HEMOGLOBIN 9.6 GM/dL (11.7-16.9); LYMPH % 10.2 % (8-40); MCH 29.6 pg (25.7-33.7); MCHC 32.8 g/dl (32.0-35.9); MEAN CELL VOLUME 90.2 fl (80-96); MEAN PLT VOLUME 8.8 fl (7.5-11.1); MONO % 8.9 % (3.8-10.2); NEUT % 79.2 % (42.8-82.8); PLATELET COUNT 488 K/MM3 (134-434); RBC 3.26 M/mm3 (4.00-5.60); RDW 17.3 % (11.9-15.9); WHITE BLOOD COUNT 16.4 K/mm3 (4.0-10.0)
[2019-08-09 09:31] LABS: BLOOD UREA NITROGEN 6.3 mg/dL (7-18); CALCIUM 9.1 mg/dL (8.5-10.1); CREATININE 0.2 mg/dL (0.55-1.3); POTASSIUM 3.6 mmol/L (3.5-5.1)
[2019-08-09] MEDS ORDERED: ALBUTEROL SO4 2.5/IPRATROPIUM 0.5 INH SOL 3 ML VIAL.NEB. NEB PRN (09:42)
[2019-08-09] MEDS ORDERED: DOCUSATE NA 100 MG/10 ML UNIT-DOSE CUPS PO PRN (09:46)
[2019-08-09] MEDS ORDERED: LORazepam 2 MG/ML SDV VIAL IVPUSH ONE (10:17)
[2019-08-09] MEDS ORDERED: PIPERACILLIN/TAZOBACTAM 3.375 GM VIAL IVPB ONE ×2 (10:28→17:01)
[2019-08-09] MEDS ORDERED: DEXTROSE 5%-WATER - 50 ML IVPB ONE ×2 (10:28→17:01)
[2019-08-09] MEDS: levETIRAcetam 500 MG/5 ML INJECTION VIAL IVPB SCH ×2 (11:00→21:21)
[2019-08-09] MEDS: PHENobarbital SODIUM 65 MG/1 ML VIAL IVPUSH SCH ×2 (11:00→21:25)
[2019-08-09] MEDS: PIPERACILLIN/TAZOB 3.375 GM 3.375 GM in DEXTROSE 5%-WATER - 50 ML IVPB SCH ×2 (11:00→17:26)
[2019-08-09] MEDS: Lacosamide 200 MG/20 ML VIAL IVPB SCH ×2 (11:00→22:20)
--- NOTE | 2019-08-09 11:53 | PN ---
Physical Exam: SUBJECTIVE: Patient seen and examined. tachypneic in the 50's, tachycardic between 100-120. 100.2 temp at 6am OBJECTIVE: Vital Signs Period Temp Pulse Resp BP Sys/Ortiz Pulse Ox Last 24 Hr 98.0 F-100.2 F 105-125 25-51 94-148/66-79 100-100 Gen: Awake, alert, tachypneic HEENT: NCAT, EOMI, divergent strabismus Neck: trach in place. clean, dry, intact Cardio: rrr, normal s1s2, no mrg Pulm: anterior & lateral chest with clear breath sounds b/l Abd: soft, nondistended Ext: mild edema Laboratory Results - last 24 hr 08/08/19 08/09/19 08/09/19 23:45 08:10 08:10 WBC 16.4 H RBC 3.26 L Hgb 9.6 L Hct 29.4 L D MCV 90.2 MCH 29.6 MCHC 32.8 RDW 17.3 H Plt Count 488 H MPV 8.8 D Absolute Neuts (auto) 13.0 H Neutrophils % 79.2 Lymphocytes % 10.2 D Monocytes % 8.9 Eosinophils % 0.8 D Basophils % 0.9 Nucleated RBC % 0 Anticoagulation Therapy No Result Required. Puncture Site Right brachial ABG pH 7.41 ABG pCO2 at Pt Temp 56.6 H ABG pO2 at Pt Temp 99.1 ABG HCO3 35.4 H ABG O2 Sat (Measured) 97.4 ABG O2 Content No Result Required. ABG Base Excess 9.3 H Yousuf Test Positive Patient On Oxygen Yes O2 Delivery Device Vent Oxygen Flow Rate 50% Vent Mode A c Vent Rate 30 Mechanical Rate No Result Required. PEEP 5.0 Pressure Support Vent 280 Sodium 136 Potassium 3.6 Chloride 95 L Carbon Dioxide 34 H Anion Gap 7 L BUN 6.3 L Creatinine 0.2 L Est GFR (CKD-EPI)AfAm 232.19 Est GFR (CKD-EPI)NonAf 200.34 Random Glucose 115 H Calcium 9.1 Active Medications Generic Name Dose Route Start Last Admin Trade Name Freq PRN Reason Stop Dose Admin Acetaminophen 650 mg 08/08/19 18:05 Tylenol Oral Solution - GT Q6H PRN FEVER Albuterol/Ipratropium 1 amp 08/09/19 09:42 Duoneb - NEB Q4H PRN SHORTNESS OF BREATH Amino Acids 30 ml 08/09/19 08:00 08/09/19 09:04 Prosource No Carb Liquid Pkt GT Not Given BID@0800,1730 [facility] Artificial Tears 1 drop 08/08/19 18:05 Artificial Tears OU Q12H PRN DRY EYES Ascorbic Acid 500 mg 08/09/19 10:00 Vitamin C Oral Solution - GT DAILY [facility] Cholecalciferol 800 unit 08/09/19 10:00 Vitamin D3 - NR DAILY [facility] Docusate Sodium 100 mg 08/09/19 09:46 Colace Liquid - PO DAILY PRN CONSTIPATION Enoxaparin Sodium 80 mg 08/08/19 18:00 08/09/19 07:20 Lovenox - SQ Not Given BID@0600,1800 [facility] Famotidine 40 mg 08/09/19 10:00 Pepcid NR DAILY [facility] Furosemide 40 mg 08/09/19 06:00 Lasix Oral Solution - GT BID@0600,1400 [facility] IV Flush 4 ml 08/08/19 18:05 Triple Lumen Flush IVPUSH PRN PRN Protocol Vancomycin HCl 1,500 mg/ 500 mls @ 250 mls/hr 08/09/19 02:00 08/09/19 01:40 Dextrose IVPB 250 mls/hr Q12H TIKI Administration Protocol Piperacillin Sod/Tazobactam 50 mls @ 100 mls/hr 08/09/19 10:00 08/09/19 11:00 Sod 3.375 gm/ Dextrose IVPB 100 mls/hr Q8H-IV TIKI Administration Protocol Lacosamide 200 mg 08/08/19 22:00 08/09/19 11:00 Vimpat Injection - IVPB 200 mg BID TIKI Administration Levetiracetam 1,000 mg 08/08/19 22:00 08/09/19 11:00 Keppra Injection - IVPB 1,000 mg BID TIKI Administration Morphine Sulfate 2 mg 08/08/19 19:34 08/09/19 03:33 Morphine Sulfate IVPUSH 2 mg Q4H PRN Administration PAIN LEVEL 6-10 Nystatin 500,000 units 08/08/19 18:05 Nystatin Oral Suspension - PO Q6HPO PRN ORAL PAIN/MOUTH SORES Phenobarbital 65 mg 08/08/19 22:00 08/09/19 11:00 Phenobarbital Injection - IVPUSH 65 mg BID TIKI Administration Polyethylene Glycol 17 gm 08/08/19 22:00 08/08/19 21:27 Miralax (For Daily Use) - GT Not Given BID [facility] Potassium Chloride 40 meq 08/08/19 22:00 08/08/19 21:42 Potassium Chloride Oral Liquid GT Not Given BID TIKI Senna 1 tab 08/09/19 22:00 Senna - PO HS [facility] Spironolactone 50 mg 08/09/19 10:00 Aldactone - GT DAILY [facility] Topiramate 200 mg 08/08/19 22:00 Topamax - GT TID [facility] Zinc Sulfate 220 mg 08/08/19 22:00 08/08/19 21:27 Orazinc - GT Not Given BID [facility] ASSESSMENT/PLAN: 38M with PMH MR and epilepsy who presented to ED initially with SOB and hypoxia requiring intubation, admitted to hospital for hypoxic respiratory failure 2/2 to covid-19. #Acute Hypoxic and Hypercapneic Respiratory Failure #COVID19 Pneumonia #E Coli Pneumonia #Fungenmia #Bacteremia #Septic Shock #Seizure Disorder #Mental Retardation -Acute hypoxic respiratory failure 2/2 covid-19 -give 1x 4mg Ativan for tachypneia -Lasix just changed to 20mg IV BID from 40mg BID via NGT. Got a 20mgIV dose this morning. -now with tracheostomy (08/07/2019), s/p Plaquenil, convalescent plasma, and Actemra -AC 30/280/60/5 -lung restrictive and stiff, will need to maintain low TV -wean FIO2 with goal SpO2 >90% -previous sputum esbl, s/p ryan, casopofungin -fungemia-quita- s/p 14 days cancidas- repeat cultures negative -bacteremia- BCx- staph capitis- sensitive to vanc -sputum- MRSA- sensitive to vanc -continue vancomycin day 25 - total of 6 weeks needed -ID on board -Protonix for GI ppx -cont antiepileptics meds via IV route -monitor electrolytes #dvt ppx: -cont Lovenox 80 BID dispo: med surge Visit type - Emergency Visit Emergency Visit: Yes ED Registration Date: 06/22/19 Care time: The patient presented to the Emergency Department on the above date and was hospitalized for further evaluation of their emergent condition. - New Patient This patient is new to me today: Yes Date on this admission: 08/09/19 - Critical Care Critical Care patient: No ATTENDING PHYSICIAN STATEMENT I saw and evaluated the patient. I reviewed the resident's note and discussed the case with the resident. I agree with the resident's findings and plan as documented. SUBJECTIVE: OBJECTIVE: ASSESSMENT AND PLAN:
--- NOTE | 2019-08-09 11:59 | PN ---
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 (short form) - Note 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: PULMONARY Vented, awake, tachypneic. Low grade fevers overnight. Vital Signs Period Temp Pulse Resp BP Sys/Ortiz Pulse Ox Last 24 Hr 98.0 F-100.8 F 105-125 25-51 94-148/66-79 100-100 Gen: vented, tachypneic Heart: tachycardic, regular Lung: decreased breath sounds at the bases Abd: soft, nontender Ext: + edema CBC, BMP 08/09/19 08:10 08/09/19 08:10 Active Medications Acetaminophen (Tylenol Oral Solution -) 650 mg GT Q6H PRN PRN Reason: FEVER Albuterol/Ipratropium (Duoneb -) 1 amp NEB Q4H PRN PRN Reason: SHORTNESS OF BREATH Amino Acids (Prosource No Carb Liquid Pkt) 30 ml GT BID@0800,1730 [facility] Last Admin: 08/09/19 09:04 Dose: Not Given Documented by: Artificial Tears (Artificial Tears) 1 drop OU Q12H PRN PRN Reason: DRY EYES Ascorbic Acid (Vitamin C Oral Solution -) 500 mg GT DAILY [facility] Cholecalciferol (Vitamin D3 -) 800 unit NR DAILY [facility] Docusate Sodium (Colace Liquid -) 100 mg PO DAILY PRN PRN Reason: CONSTIPATION Enoxaparin Sodium (Lovenox -) 80 mg SQ BID@0600,1800 [facility] Last Admin: 08/09/19 07:20 Dose: Not Given Documented by: Famotidine (Pepcid) 40 mg NR DAILY [facility] Furosemide (Lasix Oral Solution -) 40 mg GT BID@0600,1400 [facility] IV Flush (Triple Lumen Flush) 4 ml IVPUSH PRN PRN PRN Reason: Protocol Vancomycin HCl 1,500 mg/ (Dextrose) 500 mls @ 250 mls/hr IVPB Q12H [facility]; Protocol Last Admin: 08/09/19 01:40 Dose: 250 mls/hr Documented by: Piperacillin Sod/Tazobactam (Sod 3.375 gm/ Dextrose) 50 mls @ 100 mls/hr IVPB Q8H-IV [facility]; Protocol Last Admin: 08/09/19 11:00 Dose: 100 mls/hr Documented by: Lacosamide (Vimpat Injection -) 200 mg IVPB BID [facility] Last Admin: 08/09/19 11:00 Dose: 200 mg Documented by: Levetiracetam (Keppra Injection -) 1,000 mg IVPB BID [facility] Last Admin: 08/09/19 11:00 Dose: 1,000 mg Documented by: Morphine Sulfate (Morphine Sulfate) 2 mg IVPUSH Q4H PRN PRN Reason: PAIN LEVEL 6-10 Last Admin: 08/09/19 03:33 Dose: 2 mg Documented by: Nystatin (Nystatin Oral Suspension -) 500,000 units PO Q6HPO PRN PRN Reason: ORAL PAIN/MOUTH SORES Phenobarbital (Phenobarbital Injection -) 65 mg IVPUSH BID [facility] Last Admin: 08/09/19 11:00 Dose: 65 mg Documented by: Polyethylene Glycol (Miralax (For Daily Use) -) 17 gm GT BID [facility] Last Admin: 08/08/19 21:27 Dose: Not Given Documented by: Potassium Chloride (Potassium Chloride Oral Liquid) 40 meq GT BID [facility] Last Admin: 08/08/19 21:42 Dose: Not Given Documented by: Senna (Senna -) 1 tab PO HS [facility] Spironolactone (Aldactone -) 50 mg GT DAILY [facility] Topiramate (Topamax -) 200 mg GT TID [facility] Zinc Sulfate (Orazinc -) 220 mg GT BID [facility] Last Admin: 08/08/19 21:27 Dose: Not Given Documented by: A/P Acute Hypoxic and Hypercapneic Respiratory Failure COVID19 Pneumonia E Coli Pneumonia Fungenmia Bacteremia Septic Shock Seizure Disorder Mental Retardation - continue antibiotics per ID - continue antiepileptics - lasix, aldactone - monitor urine output, creatinine - low tidal volume ventilation - titrate FiO2, PEEP to keep SpO2 >90% - spontaeneous breathing trials as tolerated - enteral feeds - DVT/GI prophylaxis - can monitor on vent floor
[2019-08-09] MEDS ORDERED: PT OWN MED DRAWER 7, Y5N ONE (14:24)
[2019-08-09] MEDS: SPIRONOLACTONE 25 MG TABLET GT SCH (14:37)
[2019-08-09] MEDS: CHOLECALCIFEROL (VIT D3) 400 UNIT (10 MCG) TABLET NR SCH (14:39)
[2019-08-09] MEDS: FAMOTIDINE 40 MG/5 ML ORAL SUSPENSION NR SCH (14:42)
[2019-08-09] MEDS: POLYETHYLENE GLYCOL 3350 119 GM BTL GT SCH ×2 (14:45→21:21)
[2019-08-09] MEDS: POTASSIUM CHLORIDE ORAL LIQUID 20 MEQ/15 ML GT SCH ×2 (14:46→21:24)
[2019-08-09] MEDS: FUROSEMIDE 40 MG/4 ML INJECTABLE VIAL IVPUSH SCH (14:46)
[2019-08-09] MEDS: ASCORBIC ACID 500 MG/5 ML UNIT DOSE CUP GT SCH (14:46)
[2019-08-09] MEDS: ZINC SULFATE 220 MG CAPSULE (FP) GT SCH ×2 (14:46→21:22)
--- NOTE | 2019-08-09 15:39 | PN ---
Teaching Attending Note Name of Resident: Christiano Hancock ATTENDING PHYSICIAN STATEMENT I saw and evaluated the patient. I reviewed the resident's note and discussed the case with the resident. I agree with the resident's findings and plan as documented. SUBJECTIVE: Patient seen and examined at bedside, downgraded to trach/vent floor from ICU, h/o MR, non-verbal, ARF s/p trach (not pegged), tachypneic, febrile. Will restart Zosyn for HAP and re-send fever workup. OBJECTIVE: GA tachypneic, doesn't track, non-verbal, opens eyes, not following commands HEENT NC/aT, trach site clean, neck supple Chest coarse b/l BS+, tachypneic, slight accessory M use CVS s1, s2+, sinus tachycardia Abd Soft, NT, ND, BS+ Ext no LE edema Vital Signs - 24 hr 08/08/19 08/08/19 08/08/19 16:00 17:26 18:39 Temperature 98.0 F 99.2 F Pulse Rate 119 H 116 H Respiratory 30 H 33 H 30 H Rate Blood Pressure 94/66 137/78 O2 Sat by Pulse 100 Oximetry (%) 08/08/19 08/08/19 08/08/19 19:34 21:00 22:00 Temperature 99.8 F H Pulse Rate 125 H Respiratory 42 H 44 H Rate Blood Pressure 146/72 O2 Sat by Pulse 100 100 Oximetry (%) 08/09/19 08/09/19 08/09/19 00:00 04:05 06:00 Temperature 100.2 F H Pulse Rate 115 H Respiratory 38 H 45 H 46 H Rate Blood Pressure 148/79 O2 Sat by Pulse 100 100 Oximetry (%) 08/09/19 08/09/19 08/09/19 07:58 10:00 11:18 Temperature 100.8 F H Pulse Rate 110 H Respiratory 50 H 50 H 51 H Rate Blood Pressure 144/79 O2 Sat by Pulse 100 100 Oximetry (%) 08/09/19 08/09/19 12:10 14:00 Temperature 98.6 F Pulse Rate 87 Respiratory 35 H 35 H Rate Blood Pressure 141/78 O2 Sat by Pulse Oximetry (%) Microbiology 08/04/19 19:40 Blood - Peripheral Venous Blood Culture - Preliminary Staphylococcus Coagulase Neg 08/04/19 19:50 Blood - Peripheral Venous Blood Culture - Preliminary NO GROWTH OBTAINED AFTER 96 HOURS, INCUBATION TO CONTINUE FOR 1 DAYS. 08/05/19 13:45 Urine - Urine Antohny Urine Culture - Final NO GROWTH OBTAINED 07/31/19 16:30 Blood - Peripheral Venous Blood Culture - Final NO GROWTH AFTER 5 DAYS INCUBATION 07/31/19 17:25 Blood - Peripheral Venous Blood Culture - Final Staphylococcus Capitis 08/01/19 11:55 Sputum - Endotrachea Suction/Ventilator Gram Stain - Final 08/01/19 11:55 Sputum - Endotrachea Suction/Ventilator Sputum Culture - Final Mr S Aureus 07/29/19 11:46 Blood - Peripheral Venous Blood Culture - Final NO GROWTH AFTER 5 DAYS INCUBATION 07/29/19 11:18 Blood - Central Line Blood Culture - Final NO GROWTH AFTER 5 DAYS INCUBATION 07/29/19 11:18 Urine - Urine Anthony Urine Culture - Final NO GROWTH OBTAINED 07/12/19 11:04 Blood - Peripheral Venous Yeast/Fungus Identification - Final Janis Lusitaniae 07/18/19 21:10 Blood - Peripheral Venous Blood Culture - Final NO GROWTH AFTER 5 DAYS INCUBATION 07/18/19 18:30 Blood - Peripheral Venous Blood Culture - Final NO GROWTH AFTER 5 DAYS INCUBATION 07/15/19 12:25 Blood - Peripheral Venous Blood Culture - Final NO GROWTH AFTER 5 DAYS INCUBATION 07/16/19 15:15 Blood - Peripheral Venous Blood Culture - Final Staphylococcus Epidermidis 07/14/19 11:30 Blood - Peripheral Venous Blood Culture - Final NO GROWTH AFTER 5 DAYS INCUBATION 07/16/19 15:05 Blood - Peripheral Venous Blood Culture - Final Staphylococcus Epidermidis 07/16/19 12:30 Sputum - Endotrachea Suction/Ventilator Gram Stain - Final 07/16/19 12:30 Sputum - Endotrachea Suction/Ventilator Sputum Culture - Final Mr S Aureus Escherichia Coli 07/12/19 10:55 Blood - Peripheral Venous Blood Culture - Final NO GROWTH AFTER 5 DAYS INCUBATION 07/16/19 12:30 Urine - Urine - Catheterized Urine Culture - Final NO GROWTH OBTAINED 07/12/19 06:00 Sputum - Endotrachea Suction/Ventilator Gram Stain - Final 07/12/19 06:00 Sputum - Endotrachea Suction/Ventilator Sputum Culture - Final 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 Mr S Aureus 07/12/19 11:04 Blood - Peripheral Venous Blood Culture - Final 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 07/01/19 18:15 Blood - Peripheral Venous Blood Culture - Final NO GROWTH AFTER 5 DAYS INCUBATION 06/29/19 12:30 Blood - Peripheral Venous Blood Culture - Final Staphylococcus Epidermidis 06/30/19 17:15 Sputum - Endotrachea Suction/Ventilator Gram Stain - Final 06/30/19 17:15 Sputum - Endotrachea Suction/Ventilator Sputum Culture - Final Escherichia Coli Esbl [place] 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 06/28/19 09:00 Blood - Peripheral Venous Blood Culture - Final Staphylococcus Epidermidis 06/28/19 12:50 Sputum - Endotrachea Suction/Ventilator Gram Stain - Final 06/28/19 12:50 Sputum - Endotrachea Suction/Ventilator Sputum Culture - Final 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 Staphylococcus Aureus 06/25/19 13:40 Blood - Peripheral Venous Blood Culture - Final NO GROWTH AFTER 5 DAYS INCUBATION 06/25/19 13:20 Blood - Peripheral Venous Blood Culture - Final NO GROWTH AFTER 5 DAYS INCUBATION 06/28/19 12:51 Urine - Urine Anthony Urine Culture - Final NO GROWTH OBTAINED 06/22/19 13:00 Blood - Peripheral Venous Blood Culture - Final Staphylococcus Warneri 06/22/19 13:00 Blood - Peripheral Venous Blood Culture - Final Staphylococcus Epidermidis 06/24/19 00:01 Urine - Urine Anthony Urine Culture - Final NO GROWTH OBTAINED 06/24/19 00:01 Urine For Antigen Detection Legionella Antigen - Final 06/24/19 00:01 Urine For Antigen Detection Streptococcus pneumoniae Antigen (M - Final Laboratory Results - last 24 hr 08/08/19 08/09/19 08/09/19 23:45 08:10 08:10 WBC 16.4 H RBC 3.26 L Hgb 9.6 L Hct 29.4 L D MCV 90.2 MCH 29.6 MCHC 32.8 RDW 17.3 H Plt Count 488 H MPV 8.8 D Absolute Neuts (auto) 13.0 H Neutrophils % 79.2 Lymphocytes % 10.2 D Monocytes % 8.9 Eosinophils % 0.8 D Basophils % 0.9 Nucleated RBC % 0 Anticoagulation Therapy No Result Required. Puncture Site Right brachial ABG pH 7.41 ABG pCO2 at Pt Temp 56.6 H ABG pO2 at Pt Temp 99.1 ABG HCO3 35.4 H ABG O2 Sat (Measured) 97.4 ABG O2 Content No Result Required. ABG Base Excess 9.3 H Yousuf Test Positive Patient On Oxygen Yes O2 Delivery Device Vent Oxygen Flow Rate 50% Vent Mode A c Vent Rate 30 Mechanical Rate No Result Required. PEEP 5.0 Pressure Support Vent 280 Sodium 136 Potassium 3.6 Chloride 95 L Carbon Dioxide 34 H Anion Gap 7 L BUN 6.3 L Creatinine 0.2 L Est GFR (CKD-EPI)AfAm 232.19 Est GFR (CKD-EPI)NonAf 200.34 Random Glucose 115 H Calcium 9.1 Random Vancomycin 08/09/19 09:44 WBC RBC Hgb Hct MCV MCH MCHC RDW Plt Count MPV Absolute Neuts (auto) Neutrophils % Lymphocytes % Monocytes % Eosinophils % Basophils % Nucleated RBC % Anticoagulation Therapy Puncture Site ABG pH ABG pCO2 at Pt Temp ABG pO2 at Pt Temp ABG HCO3 ABG O2 Sat (Measured) ABG O2 Content ABG Base Excess Yousuf Test Patient On Oxygen O2 Delivery Device Oxygen Flow Rate Vent Mode Vent Rate Mechanical Rate PEEP Pressure Support Vent Sodium Potassium Chloride Carbon Dioxide Anion Gap BUN Creatinine Est GFR (CKD-EPI)AfAm Est GFR (CKD-EPI)NonAf Random Glucose Calcium Random Vancomycin 10.9 Home Medications Medication Instructions Recorded Topiramate [Topamax -] 200 mg PO TID #90 tablet 06/10/18 Lacosamide [Vimpat] 200 mg PO BID #60 tablet MDD 2 06/11/18 Phenobarbital - 60 mg PO BID #120 tablet MDD 4 06/11/18 levETIRAcetam [Keppra -] 1,000 mg PO BID 06/22/19 Current Medications Generic Name Dose Route Start Last Admin Trade Name Freq PRN Reason Stop Dose Admin Acetaminophen 650 mg 08/08/19 18:05 Tylenol Oral Solution - GT Q6H PRN FEVER Albuterol/Ipratropium 1 amp 08/09/19 09:42 08/09/19 12:10 Duoneb - NEB 1 amp Q4H PRN Administration SHORTNESS OF BREATH Amino Acids 30 ml 08/09/19 08:00 08/09/19 09:04 Prosource No Carb Liquid Pkt GT Not Given BID@0800,1730 TIKI Artificial Tears 1 drop 08/08/19 18:05 Artificial Tears OU Q12H PRN DRY EYES Ascorbic Acid 500 mg 08/09/19 10:00 08/09/19 14:46 Vitamin C Oral Solution - GT 500 mg DAILY TIKI Administration Cholecalciferol 800 unit 08/09/19 10:00 08/09/19 14:39 Vitamin D3 - NR 800 unit DAILY TIKI Administration Docusate Sodium 100 mg 08/09/19 09:46 Colace Liquid - PO DAILY PRN CONSTIPATION Enoxaparin Sodium 80 mg 08/08/19 18:00 08/09/19 07:20 Lovenox - SQ Not Given BID@0600,1800 TIKI Famotidine 40 mg 08/09/19 10:00 08/09/19 14:42 Pepcid NR 40 mg DAILY TIKI Administration Furosemide 20 mg 08/09/19 14:00 08/09/19 14:46 Lasix Injection - IVPUSH 20 mg BID@0600,1400 TIKI Administration IV Flush 4 ml 08/08/19 18:05 Triple Lumen Flush IVPUSH PRN PRN Protocol Vancomycin HCl 1,500 mg/ 500 mls @ 250 mls/hr 08/09/19 02:00 08/09/19 14:34 Dextrose IVPB 250 mls/hr Q12H TIKI Administration Protocol Piperacillin Sod/Tazobactam 50 mls @ 100 mls/hr 08/09/19 10:00 08/09/19 11:00 Sod 3.375 gm/ Dextrose IVPB 100 mls/hr Q8H-IV TIKI Administration Protocol Lacosamide 200 mg 08/08/19 22:00 08/09/19 11:00 Vimpat Injection - IVPB 200 mg BID TIKI Administration Levetiracetam 1,000 mg 08/08/19 22:00 08/09/19 11:00 Keppra Injection - IVPB 1,000 mg BID TIKI Administration Morphine Sulfate 2 mg 08/08/19 19:34 08/09/19 03:33 Morphine Sulfate IVPUSH 2 mg Q4H PRN Administration PAIN LEVEL 6-10 Nystatin 500,000 units 08/08/19 18:05 Nystatin Oral Suspension - PO Q6HPO PRN ORAL PAIN/MOUTH SORES Phenobarbital 65 mg 08/08/19 22:00 08/09/19 11:00 Phenobarbital Injection - IVPUSH 65 mg BID TIKI Administration Polyethylene Glycol 17 gm 08/08/19 22:00 08/09/19 14:45 Miralax (For Daily Use) - GT 17 gm BID TIKI Administration Potassium Chloride 40 meq 08/08/19 22:00 08/09/19 14:46 Potassium Chloride Oral Liquid GT 40 meq BID TIKI Administration Senna 1 tab 08/09/19 22:00 Senna - PO HS TIKI Spironolactone 50 mg 08/09/19 10:00 08/09/19 14:37 Aldactone - GT 50 mg DAILY TIKI Administration Topiramate 200 mg 08/08/19 22:00 Topamax - GT TID TIKI Zinc Sulfate 220 mg 08/08/19 22:00 08/09/19 14:46 Orazinc - GT 220 mg BID TIKI Administration ASSESSMENT AND PLAN: 39 M Acute Hypoxic and Hypercapneic Respiratory Failure E Coli Pneumonia Fungenmia Bacteremia Septic Shock Seizure Disorder COVID19 Pneumonia Mental Retardation Non-verbal at baseline Non-ambulatory s/p tracheostomy for respiratory failure Plan: Cont. Zosyn due to new fever spikes/leukocytosis/tachypnea, repeat CXR does not show significant change but persistent infiltrative changes. Re-send cultures, urine/blood, place NGT for access, replace anthony cath Correct electrolytes Cont. Diuresis, limit IVF ID following Pulmonary following Poor prognosis DVT ppx: Therapeutic Lovenox
[2019-08-09 17:28] LABS: EPI CELLS 8 /uL (0-25.1); HYALINE CASTS 26 /uL (0-3.1); URINE APPEARANCE TURBID; URINE BACTERIA 293 /uL (0-1359); URINE BILIRUBIN NEGATIVE (NEGATIVE); URINE COLOR YELLOW; URINE GLUCOSE (UA) NEGATIVE (NEGATIVE); URINE KETONE 3+ (NEGATIVE); URINE LEUK ESTERASE 1+ (NEGATIVE); URINE NITRITE NEGATIVE (NEGATIVE); URINE PROTEIN 1+ (NEGATIVE); URINE RBC 357 /uL (0-23.9); URINE WBC 136 /uL (0-25.8)
[2019-08-09 18:29] LABS: URINE CRYSTALS FEW /hpf
[2019-08-09] MEDS: SENNOSIDES 8.6MG TABLET (FP) PO SCH (21:24)
[2019-08-10] MEDS ORDERED: PIPERACILLIN/TAZOBACTAM 3.375 GM VIAL IVPB ONE ×3 (00:58→17:06)
[2019-08-10] MEDS ORDERED: DEXTROSE 5%-WATER - 50 ML IVPB ONE ×3 (00:58→17:06)
[2019-08-10] MEDS: PIPERACILLIN/TAZOB 3.375 GM 3.375 GM in DEXTROSE 5%-WATER - 50 ML IVPB SCH ×3 (01:03→18:09)
[2019-08-10] MEDS: VANCOMYCIN HCL 1,500 MG in DEXTROSE 5%-WATER - 500 ML IVPB SCH ×2 (01:57→14:41)
[2019-08-10] MEDS: ENOXAPARIN NA (PORCINE) 80 MG/0.8 ML DISP.SYRIN SQ SCH (05:30)
[2019-08-10] MEDS: FUROSEMIDE 40 MG/4 ML INJECTABLE VIAL IVPUSH SCH ×2 (05:30→13:41)
[2019-08-10 10:36] LABS: BASO % 0.5 % (0-2.0); EOS % 0.2 % (0-4.5); HEMATOCRIT 29.3 % (35.4-49); HEMOGLOBIN 9.4 GM/dL (11.7-16.9); LYMPH % 9.5 % (8-40); MCH 28.7 pg (25.7-33.7); MCHC 32.1 g/dl (32.0-35.9); MEAN CELL VOLUME 89.4 fl (80-96); MEAN PLT VOLUME 7.6 fl (7.5-11.1); MONO % 8.7 % (3.8-10.2); NEUT % 81.1 % (42.8-82.8); PLATELET COUNT 487 K/MM3 (134-434); RBC 3.28 M/mm3 (4.00-5.60); RDW 17.9 % (11.9-15.9)
--- NOTE | 2019-08-10 10:37 | PN ---
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 (short form) - Note 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: remains intubated s/p trach transferred to the floor awake, tracking with eyes Vital Signs Period Temp Pulse Resp BP Sys/Ortiz Pulse Ox Last 24 Hr 97.7 F-99.6 F 70-93 26-37 136-151/60-90 100-100 cor-rrr llungs decreased bs at bases abd soft,nt ext no edema CBC, BMP 08/10/19 10:10 08/10/19 10:10 Microbiology 08/09/19 11:45 Blood - Peripheral Venous Blood Culture - Preliminary NO GROWTH OBTAINED AFTER 24 HOURS, INCUBATION TO CONTINUE FOR 4 DAYS. 08/09/19 11:52 Blood - Peripheral Venous Blood Culture - Preliminary NO GROWTH OBTAINED AFTER 24 HOURS, INCUBATION TO CONTINUE FOR 4 DAYS. 08/04/19 19:40 Blood - Peripheral Venous Blood Culture - Final Staphylococcus Capitis 08/04/19 19:50 Blood - Peripheral Venous Blood Culture - Final NO GROWTH AFTER 5 DAYS INCUBATION cxray left lung improved infiltrate vanco trough 12 covid pcr negative (repeat) quantiferon negative imp/reccd s/p trach intermittent fevers- recultured and zosyn resumed, f/u culturs ARDS/pneumonia- sputum MRSA bacteremia- recurrent staph epi bacteremia- ?endocarditis- echo unrevealing- continue vancomycin, day #26 -plan 6 weeks fungemia- quita lusitanae- has completed 14 days cancidas- repeat cultures negative covid 19 positive -repeat pcr negative s/p convalescent plasma s/p tocilizumab MRSA isolation for positive sputum culture- esbl isolation for prior sputum ecoli esbl still with NGT- ?sinus disease consider ct scan head/sinuses Problem List - Problems (1) Suspected COVID-19 virus infection Code(s): R68.89 - OTHER GENERAL SYMPTOMS AND SIGNS (2) Acute respiratory failure with hypoxia Code(s): J96.01 - ACUTE RESPIRATORY FAILURE WITH HYPOXIA (3) Bacteremia Code(s): R78.81 - BACTEREMIA
[2019-08-10] MEDS: AMINO ACIDS/PROTEIN HYDROLYS 30 ML LIQUID.PKT GT SCH ×2 (10:38→18:09)
[2019-08-10] MEDS: POTASSIUM CHLORIDE ORAL LIQUID 20 MEQ/15 ML GT SCH ×2 (10:38→21:49)
[2019-08-10] MEDS: FAMOTIDINE 40 MG/5 ML ORAL SUSPENSION NR SCH (10:39)
[2019-08-10] MEDS: PHENobarbital SODIUM 65 MG/1 ML VIAL IVPUSH SCH (10:40)
[2019-08-10] MEDS: POLYETHYLENE GLYCOL 3350 119 GM BTL GT SCH ×2 (10:41→21:48)
[2019-08-10] MEDS: SPIRONOLACTONE 25 MG TABLET GT SCH ×3 (10:41→21:48)
[2019-08-10] MEDS: ZINC SULFATE 220 MG CAPSULE (FP) GT SCH ×2 (10:42→21:52)
[2019-08-10] MEDS: ARTIFICIAL TEARS (POLYVINYL ALCOHOL) OPTH DROPS OU PRN (10:43)
[2019-08-10] MEDS: CHOLECALCIFEROL (VIT D3) 400 UNIT (10 MCG) TABLET NR SCH (10:43)
[2019-08-10] MEDS: ASCORBIC ACID 500 MG/5 ML UNIT DOSE CUP GT SCH (10:48)
[2019-08-10] MEDS: ACETAMINOPHEN 650 MG/20.3 ML ORAL SOLUTION (CUPS) GT PRN (11:04)
[2019-08-10 11:05] LABS: ALBUMIN 2.4 g/dl (3.4-5.0); BILIRUBIN,TOTAL 0.6 mg/dL (0.2-1); BLOOD UREA NITROGEN 9.5 mg/dL (7-18); CALCIUM 9.1 mg/dL (8.5-10.1); CREATININE 0.4 mg/dL (0.55-1.3); MAGNESIUM 1.8 mg/dL (1.8-2.4)
[2019-08-10 11:09] LABS: POTASSIUM 2.8 mmol/L (3.5-5.1)
--- NOTE | 2019-08-10 11:11 | PN ---
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 continues on AC R-24 TV-360 Fio2-50%. Minimal white creamy secretions noted. pt with black tarry stool this morning Prognosis for safe and sufficient PO intake is quite guarded at this time. Weaker, s/p coovid +, trach,mech ventilated. Pt is a full code. Followed by Palliative care RN. Consider PEG insetion, with w/u for weaning to PO, if possible, when pt is stronger and has recovered. Pt is a full code. Family wishes regarding PEG insertion, for temporary vs LT need
[2019-08-10] MEDS: levETIRAcetam 500 MG/5 ML INJECTION VIAL IVPB SCH (11:41)
--- NOTE | 2019-08-10 11:59 | PN ---
Physical Exam: SUBJECTIVE: Patient seen and examined at bedside. NO events overnight. Patient awake and tracking personnel around the room during encounter. OBJECTIVE: Vital Signs Period Temp Pulse Resp BP Sys/Ortiz Pulse Ox Last 24 Hr 97.7 F-99.6 F 70-93 26-37 136-151/60-90 100-100 GENERAL: The patient is awake, alert in no acute distress. Patient attepts to speak, but does not follow commands. LUNGS: Breath sounds equal, clear to auscultation bilaterally, no wheezes, no crackles, no accessory muscle use. HEART: Regular rate and rhythm, S1, S2 without murmur, rub or gallop. ABDOMEN: Soft, nontender, nondistended, normoactive bowel sounds, no guarding, no rebound, no hepatosplenomegaly, no masses. EXTREMITIES: 2+ pulses, warm, well-perfused, no edema. NEUROLOGICAL: unable to obtain as patient not able to follow commands Laboratory Results - last 24 hr 08/09/19 08/09/19 08/10/19 09:44 10:07 10:10 WBC 18.0 H RBC 3.28 L Hgb 9.4 L Hct 29.3 L MCV 89.4 MCH 28.7 MCHC 32.1 RDW 17.9 H Plt Count 487 H MPV 7.6 D Absolute Neuts (auto) 14.6 H Neutrophils % 81.1 Lymphocytes % 9.5 Monocytes % 8.7 Eosinophils % 0.2 Basophils % 0.5 Nucleated RBC % 0 Sodium Potassium Chloride Carbon Dioxide Anion Gap BUN Creatinine Est GFR (CKD-EPI)AfAm Est GFR (CKD-EPI)NonAf Random Glucose Calcium Phosphorus Magnesium Total Bilirubin AST ALT Alkaline Phosphatase Total Protein Albumin Urine Color Yellow Urine Appearance Turbid Urine pH 6.0 Ur Specific [place] 1.015 Urine Protein 1+ H Urine Glucose (UA) Negative Urine Ketones 3+ H Urine Blood 2+ H Urine Nitrite Negative Urine Bilirubin Negative Urine Urobilinogen 1.0 Ur Leukocyte Esterase 1+ H Urine WBC (Auto) 136 Urine RBC (Auto) 357 Urine Casts (Auto) 26 U Pathogenic Cast Auto 5-10 U Epithel Cells (Auto) 8 Urine Crystals (Auto) Few Urine Bacteria (Auto) 293 Stool Occult Blood Random Vancomycin 10.9 08/10/19 08/10/19 10:10 10:20 WBC RBC Hgb Hct MCV MCH MCHC RDW Plt Count MPV Absolute Neuts (auto) Neutrophils % Lymphocytes % Monocytes % Eosinophils % Basophils % Nucleated RBC % Sodium 139 Potassium 2.8 L* Chloride 96 L Carbon Dioxide 36 H Anion Gap 7 L BUN 9.5 Creatinine 0.4 L Est GFR (CKD-EPI)AfAm 174.63 Est GFR (CKD-EPI)NonAf 150.67 Random Glucose 127 H Calcium 9.1 Phosphorus 3.0 Magnesium 1.8 Total Bilirubin 0.6 AST 35 ALT 34 Alkaline Phosphatase 126 H Total Protein 6.0 L Albumin 2.4 L Urine Color Urine Appearance Urine pH Ur Specific [place] Urine Protein Urine Glucose (UA) Urine Ketones Urine Blood Urine Nitrite Urine Bilirubin Urine Urobilinogen Ur Leukocyte Esterase Urine WBC (Auto) Urine RBC (Auto) Urine Casts (Auto) U Pathogenic Cast Auto U Epithel Cells (Auto) Urine Crystals (Auto) Urine Bacteria (Auto) Stool Occult Blood Positive Random Vancomycin Active Medications Generic Name Dose Route Start Last Admin Trade Name Freq PRN Reason Stop Dose Admin Acetaminophen 650 mg 08/08/19 18:05 08/10/19 11:04 Tylenol Oral Solution - GT 650 mg Q6H PRN Administration FEVER Albuterol/Ipratropium 1 amp 08/09/19 09:42 08/09/19 12:10 Duoneb - NEB 1 amp Q4H PRN Administration SHORTNESS OF BREATH Amino Acids 30 ml 08/09/19 08:00 08/10/19 10:38 Prosource No Carb Liquid Pkt GT 30 ml BID@0800,1730 TIKI Administration Artificial Tears 1 drop 08/08/19 18:05 Artificial Tears OU Q12H PRN DRY EYES Ascorbic Acid 500 mg 08/09/19 10:00 08/10/19 10:48 Vitamin C Oral Solution - GT 500 mg DAILY TIKI Administration Cholecalciferol 800 unit 08/09/19 10:00 08/10/19 10:43 Vitamin D3 - NR 800 unit DAILY TIKI Administration Docusate Sodium 100 mg 08/09/19 09:46 Colace Liquid - PO DAILY PRN CONSTIPATION Enoxaparin Sodium 80 mg 08/08/19 18:00 08/10/19 05:30 Lovenox - SQ 80 mg BID@0600,1800 TIKI Administration Famotidine 40 mg 08/09/19 10:00 08/10/19 10:39 Pepcid NR 40 mg DAILY TIKI Administration Furosemide 20 mg 08/09/19 14:00 08/10/19 05:30 Lasix Injection - IVPUSH 20 mg BID@0600,1400 TIKI Administration IV Flush 4 ml 08/08/19 18:05 Triple Lumen Flush IVPUSH PRN PRN Protocol Vancomycin HCl 1,500 mg/ 500 mls @ 250 mls/hr 08/09/19 02:00 08/10/19 01:57 Dextrose IVPB 250 mls/hr Q12H TIKI Administration Protocol Piperacillin Sod/Tazobactam 50 mls @ 100 mls/hr 08/09/19 10:00 08/10/19 10:38 Sod 3.375 gm/ Dextrose IVPB 100 mls/hr Q8H-IV TIKI Administration Protocol Lacosamide 200 mg 08/08/19 22:00 08/09/19 22:20 Vimpat Injection - IVPB 200 mg BID TIKI Administration Levetiracetam 1,000 mg 08/08/19 22:00 08/10/19 11:41 Keppra Injection - IVPB 1,000 mg BID TIKI Administration Morphine Sulfate 2 mg 08/08/19 19:34 08/09/19 03:33 Morphine Sulfate IVPUSH 2 mg Q4H PRN Administration PAIN LEVEL 6-10 Nystatin 500,000 units 08/08/19 18:05 Nystatin Oral Suspension - PO Q6HPO PRN ORAL PAIN/MOUTH SORES Pantoprazole Sodium 40 mg 08/10/19 12:00 Protonix Iv IVPUSH BID TIKI Phenobarbital 65 mg 08/08/19 22:00 08/10/19 10:40 Phenobarbital Injection - IVPUSH 65 mg BID TIKI Administration Polyethylene Glycol 17 gm 08/08/19 22:00 08/10/19 10:41 Miralax (For Daily Use) - GT 17 gm BID TIKI Administration Potassium Chloride 40 meq 08/08/19 22:00 08/10/19 10:38 Potassium Chloride Oral Liquid GT 40 meq BID TIKI Administration Potassium Chloride 40 meq 08/10/19 12:00 Potassium Chloride Oral Liquid PO BID TIKI Senna 1 tab 08/09/19 22:00 08/09/19 21:24 Senna - PO 1 tab HS TIKI Administration Spironolactone 50 mg 08/09/19 10:00 08/10/19 10:41 Aldactone - GT 50 mg DAILY TIKI Administration Topiramate 200 mg 08/08/19 22:00 Topamax - GT TID TIKI Zinc Sulfate 220 mg 08/08/19 22:00 08/10/19 10:42 Orazinc - GT 220 mg BID TIKI Administration ASSESSMENT/PLAN: 38M with PMH MR and epilepsy who presented to ED initially with SOB and hypoxia requiring intubation, admitted to hospital for hypoxic respiratory failure 2/ to covid-19. #Acute Hypoxic and Hypercapneic Respiratory Failure #COVID19 Pneumonia #E Coli Pneumonia #Fungenmia #Bacteremia #Septic Shock #Seizure Disorder #Mental Retardation -Acute hypoxic respiratory failure 2/2 covid-19 -c/w Lasix 20mg IV BID. -now with tracheostomy (08/07/2019), s/p Plaquenil, convalescent plasma, and Actem ra -AC 30/360/40/5. Titrated [id number] from 50% to 40% today. Pulmonary increased tidal volume yesterday in response to respiratory distress -lung restrictive and stiff, will need to maintain low TV -wean FIO2 with goal SpO2 >90% -previous sputum esbl, s/p ryan, casopofungin -fungemia-quita- s/p 14 days cancidas- repeat cultures negative -bacteremia- BCx- staph capitis- sensitive to vanc -sputum- MRSA- sensitive to vanc -continue vancomycin day 26 - total of 6 weeks needed -on zosyn for empiric coverage -ID on board -Protonix for GI ppx -antiepileptics changed to via NGT -monitor electrolytes -Patient having multiple episodes of dark, tarry stools yesterday and today. Hb stable. Guiac sent. -Lovenox on hold until GIB ruled out #dvt ppx: -cont Lovenox 80 BID on hold until GIB ruled out dispo: med surge Visit type - Emergency Visit Emergency Visit: Yes ED Registration Date: 06/22/19 Care time: The patient presented to the Emergency Department on the above date and was hospitalized for further evaluation of their emergent condition. - New Patient This patient is new to me today: Yes Date on this admission: 08/10/19 - Critical Care Critical Care patient: No - Discharge Referral Referred to [facility] No ATTENDING PHYSICIAN STATEMENT I saw and evaluated the patient. I reviewed the resident's note and discussed the case with the resident. I agree with the resident's findings and plan as documented. SUBJECTIVE: OBJECTIVE: ASSESSMENT AND PLAN:
[2019-08-10] MEDS ORDERED: PANTOPRAZOLE SODIUM 40 MG VIAL IVPUSH SCH (12:00)
[2019-08-10] MEDS ORDERED: POTASSIUM CHLORIDE ORAL LIQUID 20 MEQ/15 ML PO SCH (12:00)
--- NOTE | 2019-08-10 13:07 | PN ---
Teaching Attending Note Name of Resident: Wiliam Yeh ATTENDING PHYSICIAN STATEMENT I saw and evaluated the patient. I reviewed the resident's note and discussed the case with the resident. I agree with the resident's findings and plan as documented. SUBJECTIVE: Patient seen and examined at bedside, Fio2 req. improved, OBJECTIVE: GA tachypneic, doesn't track, non-verbal, opens eyes, not following commands HEENT NC/aT, trach site clean, neck supple Chest coarse b/l BS+, tachypneic, slight accessory M use CVS s1, s2+, sinus tachycardia Abd Soft, NT, ND, BS+ Ext no LE edema Vital Signs - 24 hr 08/09/19 08/09/19 08/09/19 14:00 15:30 18:00 Temperature 98.6 F 99.6 F Pulse Rate 87 93 H Respiratory 35 H 37 H 34 H Rate Blood Pressure 141/78 141/88 O2 Sat by Pulse 100 Oximetry (%) 08/09/19 08/09/19 08/09/19 20:46 21:00 22:00 Temperature 99.4 F Pulse Rate 84 Respiratory 34 H 36 H Rate Blood Pressure 136/84 O2 Sat by Pulse 100 100 Oximetry (%) 08/10/19 08/10/19 08/10/19 02:00 02:03 02:06 Temperature 97.7 F Pulse Rate 78 70 Respiratory 36 H 26 H Rate Blood Pressure 151/90 O2 Sat by Pulse 100 100 Oximetry (%) 08/10/19 08/10/19 08/10/19 05:48 05:51 06:00 Temperature 98.7 F Pulse Rate 77 73 Respiratory 31 H 34 H Rate Blood Pressure 137/60 O2 Sat by Pulse 100 100 Oximetry (%) 08/10/19 08/10/19 08:15 12:05 Temperature Pulse Rate Respiratory 33 H 27 H Rate Blood Pressure O2 Sat by Pulse 100 Oximetry (%) Microbiology 08/09/19 11:45 Blood - Peripheral Venous Blood Culture - Preliminary NO GROWTH OBTAINED AFTER 24 HOURS, INCUBATION TO CONTINUE FOR 4 DAYS. 08/09/19 11:52 Blood - Peripheral Venous Blood Culture - Preliminary NO GROWTH OBTAINED AFTER 24 HOURS, INCUBATION TO CONTINUE FOR 4 DAYS. 08/04/19 19:40 Blood - Peripheral Venous Blood Culture - Final Staphylococcus Capitis 08/04/19 19:50 Blood - Peripheral Venous Blood Culture - Final NO GROWTH AFTER 5 DAYS INCUBATION 08/05/19 13:45 Urine - Urine Caceres Urine Culture - Final NO GROWTH OBTAINED 07/31/19 16:30 Blood - Peripheral Venous Blood Culture - Final NO GROWTH AFTER 5 DAYS INCUBATION 07/31/19 17:25 Blood - Peripheral Venous Blood Culture - Final Staphylococcus Capitis 08/01/19 11:55 Sputum - Endotrachea Suction/Ventilator Gram Stain - Final 08/01/19 11:55 Sputum - Endotrachea Suction/Ventilator Sputum Culture - Final Mr S Aureus 07/29/19 11:46 Blood - Peripheral Venous Blood Culture - Final NO GROWTH AFTER 5 DAYS INCUBATION 07/29/19 11:18 Blood - Central Line Blood Culture - Final NO GROWTH AFTER 5 DAYS INCUBATION 07/29/19 11:18 Urine - Urine Caceres Urine Culture - Final NO GROWTH OBTAINED 07/12/19 11:04 Blood - Peripheral Venous Yeast/Fungus Identification - Final Janis Lusitaniae 07/18/19 21:10 Blood - Peripheral Venous Blood Culture - Final NO GROWTH AFTER 5 DAYS INCUBATION 07/18/19 18:30 Blood - Peripheral Venous Blood Culture - Final NO GROWTH AFTER 5 DAYS INCUBATION 07/15/19 12:25 Blood - Peripheral Venous Blood Culture - Final NO GROWTH AFTER 5 DAYS INCUBATION 07/16/19 15:15 Blood - Peripheral Venous Blood Culture - Final Staphylococcus Epidermidis 07/14/19 11:30 Blood - Peripheral Venous Blood Culture - Final NO GROWTH AFTER 5 DAYS INCUBATION 07/16/19 15:05 Blood - Peripheral Venous Blood Culture - Final Staphylococcus Epidermidis 07/16/19 12:30 Sputum - Endotrachea Suction/Ventilator Gram Stain - Final 07/16/19 12:30 Sputum - Endotrachea Suction/Ventilator Sputum Culture - Final Mr S Aureus Escherichia Coli 07/12/19 10:55 Blood - Peripheral Venous Blood Culture - Final NO GROWTH AFTER 5 DAYS INCUBATION 07/16/19 12:30 Urine - Urine - Catheterized Urine Culture - Final NO GROWTH OBTAINED 07/12/19 06:00 Sputum - Endotrachea Suction/Ventilator Gram Stain - Final 07/12/19 06:00 Sputum - Endotrachea Suction/Ventilator Sputum Culture - Fi nal 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 Mr S Aureus 07/12/19 11:04 Blood - Peripheral Venous Blood Culture - Final 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 07/01/19 18:15 Blood - Peripheral Venous Blood Culture - Final NO GROWTH AFTER 5 DAYS INCUBATION 06/29/19 12:30 Blood - Peripheral Venous Blood Culture - Final Staphylococcus Epidermidis 06/30/19 17:15 Sputum - Endotrachea Suction/Ventilator Gram Stain - Final 06/30/19 17:15 Sputum - Endotrachea Suction/Ventilator Sputum Culture - Final Escherichia Coli Esbl Transit Mechanic 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 06/28/19 09:00 Blood - Peripheral Venous Blood Culture - Final Staphylococcus Epidermidis 06/28/19 12:50 Sputum - Endotrachea Suction/Ventilator Gram Stain - Final 06/28/19 12:50 Sputum - Endotrachea Suction/Ventilator Sputum Culture - Final 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 Staphylococcus Aureus 06/25/19 13:40 Blood - Peripheral Venous Blood Culture - Final NO GROWTH AFTER 5 DAYS INCUBATION 06/25/19 13:20 Blood - Peripheral Venous Blood Culture - Final NO GROWTH AFTER 5 DAYS INCUBATION 06/28/19 12:51 Urine - Urine Caceres Urine Culture - Final NO GROWTH OBTAINED 06/22/19 13:00 Blood - Peripheral Venous Blood Culture - Final Staphylococcus Warneri 06/22/19 13:00 Blood - Peripheral Venous Blood Culture - Final Staphylococcus Epidermidis 06/24/19 00:01 Urine - Urine Caceres Urine Culture - Final NO GROWTH OBTAINED 06/24/19 00:01 Urine For Antigen Detection Legionella Antigen - Final 06/24/19 00:01 Urine For Antigen Detection Streptococcus pneumoniae Antigen (M - Final Laboratory Results - last 24 hr 08/09/19 08/10/19 08/10/19 10:07 10:10 10:10 WBC 18.0 H RBC 3.28 L Hgb 9.4 L Hct 29.3 L MCV 89.4 MCH 28.7 MCHC 32.1 RDW 17.9 H Plt Count 487 H MPV 7.6 D Absolute Neuts (auto) 14.6 H Neutrophils % 81.1 Lymphocytes % 9.5 Monocytes % 8.7 Eosinophils % 0.2 Basophils % 0.5 Nucleated RBC % 0 Sodium 139 Potassium 2.8 L* Chloride 96 L Carbon Dioxide 36 H Anion Gap 7 L BUN 9.5 Creatinine 0.4 L Est GFR (CKD-EPI)AfAm 174.63 Est GFR (CKD-EPI)NonAf 150.67 Random Glucose 127 H Calcium 9.1 Phosphorus 3.0 Magnesium 1.8 Total Bilirubin 0.6 AST 35 ALT 34 Alkaline Phosphatase 126 H Total Protein 6.0 L Albumin 2.4 L Urine Color Yellow Urine Appearance Turbid Urine pH 6.0 Ur Specific [place] 1.015 Urine Protein 1+ H Urine Glucose (UA) Negative Urine Ketones 3+ H Urine Blood 2+ H Urine Nitrite Negative Urine Bilirubin Negative Urine Urobilinogen 1.0 Ur Leukocyte Esterase 1+ H Urine WBC (Auto) 136 Urine RBC (Auto) 357 Urine Casts (Auto) 26 U Pathogenic Cast Auto 5-10 U Epithel Cells (Auto) 8 Urine Crystals (Auto) Few Urine Bacteria (Auto) 293 Stool Occult Blood 08/10/19 10:20 WBC RBC Hgb Hct MCV MCH MCHC RDW Plt Count MPV Absolute Neuts (auto) Neutrophils % Lymphocytes % Monocytes % Eosinophils % Basophils % Nucleated RBC % Sodium Potassium Chloride Carbon Dioxide Anion Gap BUN Creatinine Est GFR (CKD-EPI)AfAm Est GFR (CKD-EPI)NonAf Random Glucose Calcium Phosphorus Magnesium Total Bilirubin AST ALT Alkaline Phosphatase Total Protein Albumin Urine Color Urine Appearance Urine pH Ur Specific [place] Urine Protein Urine Glucose (UA) Urine Ketones Urine Blood Urine Nitrite Urine Bilirubin Urine Urobilinogen Ur Leukocyte Esterase Urine WBC (Auto) Urine RBC (Auto) Urine Casts (Auto) U Pathogenic Cast Auto U Epithel Cells (Auto) Urine Crystals (Auto) Urine Bacteria (Auto) Stool Occult Blood Positive Home Medications Medication Instructions Recorded Topiramate [Topamax -] 200 mg PO TID #90 tablet 06/10/18 Lacosamide [Vimpat] 200 mg PO BID #60 tablet MDD 2 06/11/18 Phenobarbital - 60 mg PO BID #120 tablet MDD 4 06/11/18 levETIRAcetam [Keppra -] 1,000 mg PO BID 06/22/19 Current Medications Generic Name Dose Route Start Last Admin Trade Name Freq PRN Reason Stop Dose Admin Acetaminophen 650 mg 08/08/19 18:05 08/10/19 11:04 Tylenol Oral Solution - GT 650 mg Q6H PRN Administration FEVER Albuterol/Ipratropium 1 amp 08/09/19 09:42 08/09/19 12:10 Duoneb - NEB 1 amp Q4H PRN Administration SHORTNESS OF BREATH Amino Acids 30 ml 08/09/19 08:00 08/10/19 10:38 Prosource No Carb Liquid Pkt GT 30 ml BID@0800,1730 TIKI Administration Artificial Tears 1 drop 08/08/19 18:05 Artificial Tears OU Q12H PRN DRY EYES Ascorbic Acid 500 mg 08/09/19 10:00 08/10/19 10:48 Vitamin C Oral Solution - GT 500 mg DAILY TIKI Administration Cholecalciferol 800 unit 08/09/19 10:00 08/10/19 10:43 Vitamin D3 - NR 800 unit DAILY TIKI Administration Docusate Sodium 100 mg 08/09/19 09:46 Colace Liquid - PO DAILY PRN CONSTIPATION Enoxaparin Sodium 80 mg 08/08/19 18:00 08/10/19 05:30 Lovenox - SQ 80 mg BID@0600,1800 TIKI Administration Famotidine 40 mg 08/09/19 10:00 08/10/19 10:39 Pepcid NR 40 mg DAILY TIKI Administration Furosemide 20 mg 08/09/19 14:00 08/10/19 05:30 Lasix Injection - IVPUSH 20 mg BID@0600,1400 TIKI Administration IV Flush 4 ml 08/08/19 18:05 Triple Lumen Flush IVPUSH PRN PRN Protocol Vancomycin HCl 1,500 mg/ 500 mls @ 250 mls/hr 08/09/19 02:00 08/10/19 01:57 Dextrose IVPB 250 mls/hr Q12H TIKI Administration Protocol Piperacillin Sod/Tazobactam 50 mls @ 100 mls/hr 08/09/19 10:00 08/10/19 10:38 Sod 3.375 gm/ Dextrose IVPB 100 mls/hr Q8H-IV TIKI Administration Protocol Lacosamide 200 mg 08/08/19 22:00 08/09/19 22:20 Vimpat Injection - IVPB 200 mg BID TIKI Administration Levetiracetam 1,000 mg 08/08/19 22:00 08/10/19 11:41 Keppra Injection - IVPB 1,000 mg BID TIKI Administration Morphine Sulfate 2 mg 08/08/19 19:34 08/09/19 03:33 Morphine Sulfate IVPUSH 2 mg Q4H PRN Administration PAIN LEVEL 6-10 Nystatin 500,000 units 08/08/19 18:05 Nystatin Oral Suspension - PO Q6HPO PRN ORAL PAIN/MOUTH SORES Pantoprazole Sodium 40 mg 08/10/19 12:00 Protonix Iv IVPUSH BID TIKI Phenobarbital 65 mg 08/08/19 22:00 08/10/19 10:40 Phenobarbital Injection - IVPUSH 65 mg BID TIKI Administration Polyethylene Glycol 17 gm 08/08/19 22:00 08/10/19 10:41 Miralax (For Daily Use) - GT 17 gm BID TIKI Administration Potassium Chloride 40 meq 08/08/19 22:00 08/10/19 10:38 Potassium Chloride Oral Liquid GT 40 meq BID TIKI Administration Senna 1 tab 08/09/19 22:00 08/09/19 21:24 Senna - PO 1 tab HS TIKI Administration Spironolactone 50 mg 08/09/19 10:00 08/10/19 10:41 Aldactone - GT 50 mg DAILY TIKI Administration Topiramate 200 mg 08/08/19 22:00 Topamax - GT TID TIKI Zinc Sulfate 220 mg 08/08/19 22:00 08/10/19 10:42 Orazinc - GT 220 mg BID TIKI Administration ASSESSMENT AND PLAN: 39 M Acute Hypoxic and Hypercapneic Respiratory Failure E Coli Pneumonia Fungenmia Bacteremia Septic Shock Seizure Disorder COVID19 Pneumonia Mental Retardation Non-verbal at baseline Non-ambulatory s/p tracheostomy for respiratory failure Plan: Cont. Zosyn noted improvement of oxygen req, and fevers. Hold AC in view of reported dark stool (per nursing staff), send FOBT, PPI BID Follow cultures Correct electrolytes Cont. Diuresis, limit IVF ID following Pulmonary following Poor prognosis need Palliative evaluation DVT ppx: SCD
[2019-08-10] MEDS: Lacosamide 200 MG/20 ML VIAL IVPB SCH (13:43)
--- NOTE | 2019-08-10 14:33 | PN ---
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, Physician History of Present Illness: Pt seen and examined at bedside. Pt is now out of ICU. Pt remains on vent. - Current Medication List Current Medications: Active Medications Acetaminophen (Tylenol Oral Solution -) 650 mg GT Q6H PRN PRN Reason: FEVER Last Admin: 08/10/19 11:04 Dose: 650 mg Documented by: Albuterol/Ipratropium (Duoneb -) 1 amp NEB Q4H PRN PRN Reason: SHORTNESS OF BREATH Last Admin: 08/09/19 12:10 Dose: 1 amp Documented by: Amino Acids (Prosource No Carb Liquid Pkt) 30 ml GT BID@0800,1730 [facility] Last Admin: 08/10/19 10:38 Dose: 30 ml Documented by: Artificial Tears (Artificial Tears) 1 drop OU Q12H PRN PRN Reason: DRY EYES Ascorbic Acid (Vitamin C Oral Solution -) 500 mg GT DAILY [facility] Last Admin: 08/10/19 10:48 Dose: 500 mg Documented by: Cholecalciferol (Vitamin D3 -) 800 unit NR DAILY [facility] Last Admin: 08/10/19 10:43 Dose: 800 unit Documented by: Docusate Sodium (Colace Liquid -) 100 mg PO DAILY PRN PRN Reason: CONSTIPATION Enoxaparin Sodium (Lovenox -) 80 mg SQ BID@0600,1800 [facility] Last Admin: 08/10/19 05:30 Dose: 80 mg Documented by: Famotidine (Pepcid) 40 mg NR DAILY [facility] Last Admin: 08/10/19 10:39 Dose: 40 mg Documented by: Furosemide (Lasix Injection -) 20 mg IVPUSH BID@0600,1400 [facility] Last Admin: 08/10/19 13:41 Dose: 20 mg Documented by: IV Flush (Triple Lumen Flush) 4 ml IVPUSH PRN PRN PRN Reason: Protocol Vancomycin HCl 1,500 mg/ (Dextrose) 500 mls @ 250 mls/hr IVPB Q12H [facility]; Protocol Last Admin: 08/10/19 01:57 Dose: 250 mls/hr Documented by: Piperacillin Sod/Tazobactam (Sod 3.375 gm/ Dextrose) 50 mls @ 100 mls/hr IVPB Q8H-IV TIKI; Protocol Last Admin: 08/10/19 10:38 Dose: 100 mls/hr Documented by: Potassium Chloride (Potassium Chloride 10 Meq Premix Ivpb -) 10 meq in 100 mls @ 100 mls/hr IVPB Q60M [facility] Stop: 08/10/19 17:29 Lacosamide (Vimpat Injection -) 200 mg IVPB BID [facility] Last Admin: 08/10/19 13:43 Dose: 200 mg Documented by: Levetiracetam (Keppra Injection -) 1,000 mg IVPB BID [facility] Last Admin: 08/10/19 11:41 Dose: 1,000 mg Documented by: Morphine Sulfate (Morphine Sulfate) 2 mg IVPUSH Q4H PRN PRN Reason: PAIN LEVEL 6-10 Last Admin: 08/09/19 03:33 Dose: 2 mg Documented by: Nystatin (Nystatin Oral Suspension -) 500,000 units PO Q6HPO PRN PRN Reason: ORAL PAIN/MOUTH SORES Pantoprazole Sodium (Protonix Iv) 40 mg IVPUSH BID [facility] Last Admin: 08/10/19 13:42 Dose: 40 mg Documented by: Phenobarbital (Phenobarbital Injection -) 65 mg IVPUSH BID [facility] Last Admin: 08/10/19 10:40 Dose: 65 mg Documented by: Polyethylene Glycol (Miralax (For Daily Use) -) 17 gm GT BID [facility] Last Admin: 08/10/19 10:41 Dose: 17 gm Documented by: Potassium Chloride (Potassium Chloride Oral Liquid) 40 meq GT BID [facility] Last Admin: 08/10/19 10:38 Dose: 40 meq Documented by: Senna (Senna -) 1 tab PO HS [facility] Last Admin: 08/09/19 21:24 Dose: 1 tab Documented by: Spironolactone (Aldactone -) 50 mg GT DAILY [facility] Last Admin: 08/10/19 10:41 Dose: 50 mg Documented by: Topiramate (Topamax -) 200 mg GT TID [facility] Zinc Sulfate (Orazinc -) 220 mg GT BID [facility] Last Admin: 08/10/19 10:42 Dose: 220 mg Documented by: - Objective Vital Signs: Vital Signs Temperature 98.1 F 08/10/19 14:00 Pulse Rate 76 08/10/19 14:00 Respiratory Rate 22 H 08/10/19 14:00 Blood Pressure 153/80 08/10/19 14:00 O2 Sat by Pulse Oximetry (%) 100 08/10/19 09:00 Constitutional: Yes: Calm Eyes: Yes: Conjunctiva Clear HENT: Yes: Atraumatic Cardiovascular: Yes: S1, S2 Respiratory: Yes: Mechanically Ventilated Gastrointestinal: Yes: Soft Genitourinary: Yes: Caceres Present Edema: Yes Labs: CBC, BMP 08/10/19 10:10 08/10/19 10:10 INR, PTT INR 1.01 (0.83-1.09) 07/28/19 05:00 Problem List - Problems (1) Hypernatremia Code(s): E87.0 - HYPEROSMOLALITY AND HYPERNATREMIA (2) Hypokalemia Code(s): E87.6 - HYPOKALEMIA (3) Acute respiratory failure with hypoxia Code(s): J96.01 - ACUTE RESPIRATORY FAILURE WITH HYPOXIA (4) Bacteremia Code(s): R78.81 - BACTEREMIA Assessment/Plan Current Medications Generic Name Dose Route Start Last Admin Trade Name Freq PRN Reason Stop Dose Admin Acetaminophen 650 mg 08/08/19 18:05 08/10/19 11:04 Tylenol Oral Solution - GT 650 mg Q6H PRN Administration FEVER Albuterol/Ipratropium 1 amp 08/09/19 09:42 08/09/19 12:10 Duoneb - NEB 1 amp Q4H PRN Administration SHORTNESS OF BREATH Amino Acids 30 ml 08/09/19 08:00 08/10/19 10:38 Prosource No Carb Liquid Pkt GT 30 ml BID@0800,1730 TIKI Administration Artificial Tears 1 drop 08/08/19 18:05 Artificial Tears OU Q12H PRN DRY EYES Ascorbic Acid 500 mg 08/09/19 10:00 08/10/19 10:48 Vitamin C Oral Solution - GT 500 mg DAILY TIKI Administration Cholecalciferol 800 unit 08/09/19 10:00 08/10/19 10:43 Vitamin D3 - NR 800 unit DAILY TIKI Administration Docusate Sodium 100 mg 08/09/19 09:46 Colace Liquid - PO DAILY PRN CONSTIPATION Enoxaparin Sodium 80 mg 08/08/19 18:00 08/10/19 05:30 Lovenox - SQ 80 mg BID@0600,1800 TIKI Administration Famotidine 40 mg 08/09/19 10:00 08/10/19 10:39 Pepcid NR 40 mg DAILY TIKI Administration Furosemide 20 mg 08/09/19 14:00 08/10/19 13:41 Lasix Injection - IVPUSH 20 mg BID@0600,1400 TIKI Administration IV Flush 4 ml 08/08/19 18:05 Triple Lumen Flush IVPUSH PRN PRN Protocol Vancomycin HCl 1,500 mg/ 500 mls @ 250 mls/hr 08/09/19 02:00 08/10/19 01:57 Dextrose IVPB 250 mls/hr Q12H TIKI Administration Protocol Piperacillin Sod/Tazobactam 50 mls @ 100 mls/hr 08/09/19 10:00 08/10/19 10:38 Sod 3.375 gm/ Dextrose IVPB 100 mls/hr Q8H-IV TIKI Administration Protocol Potassium Chloride 10 meq in 100 mls @ 100 mls/hr 08/10/19 14:30 Potassium Chloride 10 Meq Premix Ivpb - IVPB 08/10/19 17:29 Q60M TIKI Lacosamide 200 mg 08/08/19 22:00 08/10/19 13:43 Vimpat Injection - IVPB 200 mg BID TIKI Administration Levetiracetam 1,000 mg 08/08/19 22:00 08/10/19 11:41 Keppra Injection - IVPB 1,000 mg BID TIKI Administration Morphine Sulfate 2 mg 08/08/19 19:34 08/09/19 03:33 Morphine Sulfate IVPUSH 2 mg Q4H PRN Administration PAIN LEVEL 6-10 Nystatin 500,000 units 08/08/19 18:05 Nystatin Oral Suspension - PO Q6HPO PRN ORAL PAIN/MOUTH SORES Pantoprazole Sodium 40 mg 08/10/19 12:00 08/10/19 13:42 Protonix Iv IVPUSH 40 mg BID TIKI Administration Phenobarbital 65 mg 08/08/19 22:00 08/10/19 10:40 Phenobarbital Injection - IVPUSH 65 mg BID TIKI Administration Polyethylene Glycol 17 gm 08/08/19 22:00 08/10/19 10:41 Miralax (For Daily Use) - GT 17 gm BID TIKI Administration Potassium Chloride 40 meq 08/08/19 22:00 08/10/19 10:38 Potassium Chloride Oral Liquid GT 40 meq BID TIKI Administration Senna 1 tab 08/09/19 22:00 08/09/19 21:24 Senna - PO 1 tab HS TIKI Administration Spironolactone 50 mg 08/09/19 10:00 08/10/19 10:41 Aldactone - GT 50 mg DAILY TIKI Administration Topiramate 200 mg 08/08/19 22:00 Topamax - GT TID TIKI Zinc Sulfate 220 mg 08/08/19 22:00 08/10/19 10:42 Orazinc - GT 220 mg BID TIKI Administration Impression 1. hypokalemia 2. hypernatremia 3. resp failure 4. fungemia 5. covid 19 infection 6. ards 7. developemental delay 8. epilepsy 9. bactermia 10. resp acidosis with compensatory met alk Plan - replace potassium - decrease lasix and increase aldactone - would hold further lasix doses until potassium stable - cont vent support - cont feeds
--- NOTE | 2019-08-10 15:18 | PN ---
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 (short form) - Note 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: Awake and responsive on AC Mode of vent. PPLat: 22 No acute events overnight. OBJECTIVE: Intake & Output 08/07/19 08/08/19 08/09/19 08/10/19 23:59 23:59 23:59 23:59 Intake Total 2341.1 1875 1600 0 Output Total 1850 2050 1900 1300 Balance 491.1 -175 -300 -1300 Weight 189 lb 190 lb Last Vital Signs Temp Pulse Resp BP Pulse Ox 98.1 F 76 22 H 153/80 100 08/10/19 14:00 08/10/19 14:00 08/10/19 14:00 08/10/19 14:00 08/10/19 09:00 Active Medications Acetaminophen (Tylenol Oral Solution -) 650 mg GT Q6H PRN PRN Reason: FEVER Last Admin: 08/10/19 11:04 Dose: 650 mg Documented by: Albuterol/Ipratropium (Duoneb -) 1 amp NEB Q4H PRN PRN Reason: SHORTNESS OF BREATH Last Admin: 08/09/19 12:10 Dose: 1 amp Documented by: Amino Acids (Prosource No Carb Liquid Pkt) 30 ml GT BID@0800,1730 [facility] Last Admin: 08/10/19 10:38 Dose: 30 ml Documented by: Artificial Tears (Artificial Tears) 1 drop OU Q12H PRN PRN Reason: DRY EYES Ascorbic Acid (Vitamin C Oral Solution -) 500 mg GT DAILY [facility] Last Admin: 08/10/19 10:48 Dose: 500 mg Documented by: Cholecalciferol (Vitamin D3 -) 800 unit NR DAILY [facility] Last Admin: 08/10/19 10:43 Dose: 800 unit Documented by: Docusate Sodium (Colace Liquid -) 100 mg PO DAILY PRN PRN Reason: CONSTIPATION Enoxaparin Sodium (Lovenox -) 80 mg SQ BID@0600,1800 [facility] Last Admin: 08/10/19 05:30 Dose: 80 mg Documented by: Famotidine (Pepcid) 40 mg NR DAILY [facility] Last Admin: 08/10/19 10:39 Dose: 40 mg Documented by: Furosemide (Lasix Injection -) 20 mg IVPUSH BID@0600,1400 [facility] Last Admin: 08/10/19 13:41 Dose: 20 mg Documented by: IV Flush (Triple Lumen Flush) 4 ml IVPUSH PRN PRN PRN Reason: Protocol Vancomycin HCl 1,500 mg/ (Dextrose) 500 mls @ 250 mls/hr IVPB Q12H [facility]; Protocol Last Admin: 08/10/19 14:41 Dose: 250 mls/hr Documented by: Piperacillin Sod/Tazobactam (Sod 3.375 gm/ Dextrose) 50 mls @ 100 mls/hr IVPB Q8H-IV [facility]; Protocol Last Admin: 08/10/19 10:38 Dose: 100 mls/hr Documented by: Potassium Chloride (Potassium Chloride 10 Meq Premix Ivpb -) 10 meq in 100 mls @ 100 mls/hr IVPB Q60M [facility] Stop: 08/10/19 17:59 Lacosamide (Vimpat Liquid -) 200 mg PO BID [facility] Levetiracetam (Keppra Oral Solution -) 1,000 mg NGT BID [facility] Morphine Sulfate (Morphine Sulfate) 2 mg IVPUSH Q4H PRN PRN Reason: PAIN LEVEL 6-10 Last Admin: 08/09/19 03:33 Dose: 2 mg Documented by: Nystatin (Nystatin Oral Suspension -) 500,000 units PO Q6HPO PRN PRN Reason: ORAL PAIN/MOUTH SORES Pantoprazole Sodium (Protonix Iv) 40 mg IVPUSH BID [facility] Last Admin: 08/10/19 13:42 Dose: 40 mg Documented by: Phenobarbital (Phenobarbital Liquid -) 60 mg NGT BID [facility] Polyethylene Glycol (Miralax (For Daily Use) -) 17 gm GT BID [facility] Last Admin: 08/10/19 10:41 Dose: 17 gm Documented by: Potassium Chloride (Potassium Chloride Oral Liquid) 40 meq GT BID [facility] Last Admin: 08/10/19 10:38 Dose: 40 meq Documented by: Senna (Senna -) 1 tab PO HS [facility] Last Admin: 08/09/19 21:24 Dose: 1 tab Documented by: Spironolactone (Aldactone -) 50 mg GT BID [facility] Topiramate (Topamax -) 200 mg GT TID [facility] Zinc Sulfate (Orazinc -) 220 mg GT BID [facility] Last Admin: 08/10/19 10:42 Dose: 220 mg Documented by: Gen: trached, awake Heart: RRR Lung: decreased breath sounds at the bases Abd: soft, nontender Ext: + edema Laboratory Results - last 24 hr 08/09/19 08/10/19 08/10/19 10:07 10:10 10:10 WBC 18.0 H RBC 3.28 L Hgb 9.4 L Hct 29.3 L MCV 89.4 MCH 28.7 MCHC 32.1 RDW 17.9 H Plt Count 487 H MPV 7.6 D Absolute Neuts (auto) 14.6 H Neutrophils % 81.1 Lymphocytes % 9.5 Monocytes % 8.7 Eosinophils % 0.2 Basophils % 0.5 Nucleated RBC % 0 Sodium 139 Potassium 2.8 L* Chloride 96 L Carbon Dioxide 36 H Anion Gap 7 L BUN 9.5 Creatinine 0.4 L Est GFR (CKD-EPI)AfAm 174.63 Est GFR (CKD-EPI)NonAf 150.67 Random Glucose 127 H Calcium 9.1 Phosphorus 3.0 Magnesium 1.8 Total Bilirubin 0.6 AST 35 ALT 34 Alkaline Phosphatase 126 H Total Protein 6.0 L Albumin 2.4 L Urine Color Yellow Urine Appearance Turbid Urine pH 6.0 Ur Specific [place] 1.015 Urine Protein 1+ H Urine Glucose (UA) Negative Urine Ketones 3+ H Urine Blood 2+ H Urine Nitrite Negative Urine Bilirubin Negative Urine Urobilinogen 1.0 Ur Leukocyte Esterase 1+ H Urine WBC (Auto) 136 Urine RBC (Auto) 357 Urine Casts (Auto) 26 U Pathogenic Cast Auto 5-10 U Epithel Cells (Auto) 8 Urine Crystals (Auto) Few Urine Bacteria (Auto) 293 Stool Occult Blood 08/10/19 10:20 WBC RBC Hgb Hct MCV MCH MCHC RDW Plt Count MPV Absolute Neuts (auto) Neutrophils % Lymphocytes % Monocytes % Eosinophils % Basophils % Nucleated RBC % Sodium Potassium Chloride Carbon Dioxide Anion Gap BUN Creatinine Est GFR (CKD-EPI)AfAm Est GFR (CKD-EPI)NonAf Random Glucose Calcium Phosphorus Magnesium Total Bilirubin AST ALT Alkaline Phosphatase Total Protein Albumin Urine Color Urine Appearance Urine pH Ur Specific [place] Urine Protein Urine Glucose (UA) Urine Ketones Urine Blood Urine Nitrite Urine Bilirubin Urine Urobilinogen Ur Leukocyte Esterase Urine WBC (Auto) Urine RBC (Auto) Urine Casts (Auto) U Pathogenic Cast Auto U Epithel Cells (Auto) Urine Crystals (Auto) Urine Bacteria (Auto) Stool Occult Blood Positive ASSESSMENT AND PLAN: Acute Hypoxic and Hypercapneic Respiratory Failure COVID19 Pneumonia E Coli Pneumonia Fungenmia Bacteremia Septic Shock Seizure Disorder Mental Retardation - continue antibiotics per ID - continue antiepileptics - lasix, aldactone - monitor urine output, creatinine - low tidal volume ventilation - titrate FiO2, PEEP to keep SpO2 >90% - spontaeneous breathing trials as tolerated - enteral feeds - DVT/GI prophylaxis Dr Callaway
[2019-08-10] MEDS: KCL 10 MEQ IVPB 10 MEQ/100 ML INFUS.BAG IVPB SCH ×3 (17:08→20:52)
[2019-08-10] MEDS: PANTOPRAZOLE SOD 40 MG SUSPENSION PACKET NGT SCH (21:49)
[2019-08-10] MEDS: levETIRAcetam 500 MG/5 ML ORAL SOLUTION (UNIT-DOSE CUPS) NGT SCH (21:50)
[2019-08-10] MEDS: Lacosamide 50 MG/5 ML ORAL SOLUTION UNIT CUPS PO SCH (21:51)
[2019-08-10] MEDS: PHENobarbital 20 MG/5 ML UNIT-DOSE CUP NGT SCH (21:52)
[2019-08-10] MEDS: SENNOSIDES 8.6MG TABLET (FP) PO SCH (21:52)
[2019-08-11] MEDS ORDERED: DEXTROSE 5%-WATER - 50 ML IVPB ONE ×2 (02:02→09:48)
[2019-08-11] MEDS ORDERED: PIPERACILLIN/TAZOBACTAM 3.375 GM VIAL IVPB ONE ×2 (02:02→09:48)
[2019-08-11] MEDS: PIPERACILLIN/TAZOB 3.375 GM 3.375 GM in DEXTROSE 5%-WATER - 50 ML IVPB SCH ×2 (02:09→10:02)
[2019-08-11] MEDS: VANCOMYCIN HCL 1,500 MG in DEXTROSE 5%-WATER - 500 ML IVPB SCH ×4 (02:37→18:51)
--- NOTE | 2019-08-11 07:47 | PN ---
Teaching Attending Note Name of Resident: Wiliam Yeh ATTENDING PHYSICIAN STATEMENT I saw and evaluated the patient. I reviewed the resident's note and discussed the case with the resident. I agree with the resident's findings and plan as documented. SUBJECTIVE: Patient remained at baseline the vent dependent, saturating well on current vent settings OBJECTIVE: Vital Signs Temperature 99.7 F H 08/11/19 06:00 Pulse Rate 70 08/11/19 06:00 Respiratory Rate 31 H 08/11/19 06:00 Blood Pressure 130/76 08/11/19 06:00 O2 Sat by Pulse Oximetry (%) 100 08/11/19 04:10 General: Gentleman not in distress HEENT mucous membranes moist, no anemia, no jaundice, PERRLA, no nystagmus Neck: Status post trach Chest: bilateral basal rales. CVS: S1-S2 no murmur/gallop/rub Abdomen: Nondistended, soft, bowel sounds present. 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 CBC, BMP 08/10/19 10:10 Active Medications Acetaminophen (Tylenol Oral Solution -) 650 mg GT Q6H PRN PRN Reason: FEVER Last Admin: 08/10/19 11:04 Dose: 650 mg Documented by: Albuterol/Ipratropium (Duoneb -) 1 amp NEB Q4H PRN PRN Reason: SHORTNESS OF BREATH Last Admin: 08/09/19 12:10 Dose: 1 amp Documented by: Amino Acids (Prosource No Carb Liquid Pkt) 30 ml GT BID@0800,1730 [facility] Last Admin: 08/10/19 18:09 Dose: 30 ml Documented by: Artificial Tears (Artificial Tears) 1 drop OU Q12H PRN PRN Reason: DRY EYES Last Admin: 08/10/19 10:43 Dose: 1 drop Documented by: Ascorbic Acid (Vitamin C Oral Solution -) 500 mg GT DAILY [facility] Last Admin: 08/10/19 10:48 Dose: 500 mg Documented by: Cholecalciferol (Vitamin D3 -) 800 unit NR DAILY [facility] Last Admin: 08/10/19 10:43 Dose: 800 unit Documented by: Docusate Sodium (Colace Liquid -) 100 mg PO DAILY PRN PRN Reason: CONSTIPATION Enoxaparin Sodium (Lovenox -) 80 mg SQ BID@0600,1800 [facility] Last Admin: 08/10/19 05:30 Dose: 80 mg Documented by: Famotidine (Pepcid) 40 mg NR DAILY [facility] Last Admin: 08/10/19 10:39 Dose: 40 mg Documented by: Furosemide (Lasix Injection -) 20 mg IVPUSH BID@0600,1400 [facility] Last Admin: 08/10/19 13:41 Dose: 20 mg Documented by: Vancomycin HCl 1,500 mg/ (Dextrose) 500 mls @ 250 mls/hr IVPB Q12H [facility]; Protocol Last Admin: 08/11/19 02:37 Dose: 250 mls/hr Documented by: Piperacillin Sod/Tazobactam (Sod 3.375 gm/ Dextrose) 50 mls @ 100 mls/hr IVPB Q8H-IV [facility]; Protocol Last Admin: 08/11/19 02:09 Dose: 100 mls/hr Documented by: Lacosamide (Vimpat Liquid -) 200 mg PO BID [facility] Last Admin: 08/10/19 21:51 Dose: 200 mg Documented by: Levetiracetam (Keppra Oral Solution -) 1,000 mg NGT BID [facility] Last Admin: 08/10/19 21:50 Dose: 1,000 mg Documented by: Nystatin (Nystatin Oral Suspension -) 500,000 units PO Q6HPO PRN PRN Reason: ORAL PAIN/MOUTH SORES Pantoprazole Sodium (Protonix Packets For Oral Suspension -) 40 mg NGT BID [facility] Last Admin: 08/10/19 21:49 Dose: 40 mg Documented by: Phenobarbital (Phenobarbital Liquid -) 60 mg NGT BID [facility] Last Admin: 08/10/19 21:52 Dose: 60 mg Documented by: Polyethylene Glycol (Miralax (For Daily Use) -) 17 gm GT BID [facility] Last Admin: 08/10/19 21:48 Dose: 17 gm Documented by: Potassium Chloride (Potassium Chloride Oral Liquid) 40 meq GT BID [facility] Last Admin: 08/10/19 21:49 Dose: 40 meq Documented by: Senna (Senna -) 1 tab PO HS [facility] Last Admin: 08/10/19 21:52 Dose: 1 tab Documented by: Spironolactone (Aldactone -) 50 mg GT BID [facility] Last Admin: 08/10/19 21:48 Dose: 50 mg Documented by: Topiramate (Topamax -) 200 mg GT TID [facility] Zinc Sulfate (Orazinc -) 220 mg GT BID [facility] Last Admin: 08/10/19 21:52 Dose: 220 mg Documented by: ASSESSMENT AND PLAN: 39 years old male mentally challenged, seizure disorders lives at home admitted with hypoxic respiratory failure on June 22, 2019 secondary to COVID-19, multiple pulmonary infection and bacteremia treated for fungemia, MRSA, ESBL E. coli,, persistent staph epi bacteremia normal echocardiogram on vancomycin as per ID total 6 weeks of Vanco today yesterday , patient did spike fever on August 09, 2019 put on Zosyn, remained afebrile but persistent elevation of WBC. ID/pulmonary on the case Plan: Patient is on multiple active issues 1. elevated T WBC on vancomycin and Zosyn we will follow-up with ID and pending blood cultures. 2. Hypoxic respiratory failure status post tracheostomy on vent: Vent management as per pulmonary consult 3. Seizure disorders continue Topamax, Vimpat and Keppra 4. Needs PEG tube Follow-up CBC, CMP , follow-up d-dimer repeat COVID-19 for possible placement, And pending blood culture. Plan discussed with the resident
--- NOTE | 2019-08-11 08:00 | PN ---
Physical Exam: SUBJECTIVE: Patient seen and examined at bedside. No events overnight. Patient noted to have NGT at 50cm at the nare. NGT heard in the epigastrium. NGT advanced to 60cm at the nare. CXR taken to confirm placement. OBJECTIVE: Vital Signs Period Temp Pulse Resp BP Sys/Ortiz Pulse Ox Last 24 Hr 98.1 F-99.9 F 67-78 22-33 130-173/74-101 98-100 GENERAL: The patient is awake, alert, and fully oriented, in no acute distress. HEAD: Normal with no signs of trauma. NECK: Trachea midline, full range of motion, supple. LUNGS: Breath sounds equal, Mechanical breath sounds b/l with crackles in the mid lung ha. HEART: Regular rate and rhythm, S1, S2 without murmur, rub or gallop. ABDOMEN: Soft, nontender, nondistended, normoactive bowel sounds, no guarding, no rebound, no hepatosplenomegaly, no masses. EXTREMITIES: 2+ pulses, warm, well-perfused, no edema. NEUROLOGICAL: Cranial nerves II through X grossly intact. Exam limited 2/ clinical status Laboratory Results - last 24 hr 08/10/19 08/10/19 08/10/19 10:10 10:10 10:20 WBC 18.0 H RBC 3.28 L Hgb 9.4 L Hct 29.3 L MCV 89.4 MCH 28.7 MCHC 32.1 RDW 17.9 H Plt Count 487 H MPV 7.6 D Absolute Neuts (auto) 14.6 H Neutrophils % 81.1 Lymphocytes % 9.5 Monocytes % 8.7 Eosinophils % 0.2 Basophils % 0.5 Nucleated RBC % 0 Sodium 139 Potassium 2.8 L* Chloride 96 L Carbon Dioxide 36 H Anion Gap 7 L BUN 9.5 Creatinine 0.4 L Est GFR (CKD-EPI)AfAm 174.63 Est GFR (CKD-EPI)NonAf 150.67 Random Glucose 127 H Calcium 9.1 Phosphorus 3.0 Magnesium 1.8 Total Bilirubin 0.6 AST 35 ALT 34 Alkaline Phosphatase 126 H Total Protein 6.0 L Albumin 2.4 L Stool Occult Blood Positive Active Medications Generic Name Dose Route Start Last Admin Trade Name Freq PRN Reason Stop Dose Admin Acetaminophen 650 mg 08/08/19 18:05 08/10/19 11:04 Tylenol Oral Solution - GT 650 mg Q6H PRN Administration FEVER Albuterol/Ipratropium 1 amp 08/09/19 09:42 08/09/19 12:10 Duoneb - NEB 1 amp Q4H PRN Administration SHORTNESS OF BREATH Amino Acids 30 ml 08/09/19 08:00 08/10/19 18:09 Prosource No Carb Liquid Pkt GT 30 ml BID@0800,1730 [facility] Administration Artificial Tears 1 drop 08/08/19 18:05 08/10/19 10:43 Artificial Tears OU 1 drop Q12H PRN Administration DRY EYES Ascorbic Acid 500 mg 08/09/19 10:00 08/10/19 10:48 Vitamin C Oral Solution - GT 500 mg DAILY [facility] Administration Cholecalciferol 800 unit 08/09/19 10:00 08/10/19 10:43 Vitamin D3 - NR 800 unit DAILY [facility] Administration Docusate Sodium 100 mg 08/09/19 09:46 Colace Liquid - PO DAILY PRN CONSTIPATION Enoxaparin Sodium 80 mg 08/08/19 18:00 08/10/19 05:30 Lovenox - SQ 80 mg BID@0600,1800 [facility] Administration Famotidine 40 mg 08/09/19 10:00 08/10/19 10:39 Pepcid NR 40 mg DAILY [facility] Administration Furosemide 20 mg 08/09/19 14:00 08/10/19 13:41 Lasix Injection - IVPUSH 20 mg BID@0600,1400 [facility] Administration Vancomycin HCl 1,500 mg/ 500 mls @ 250 mls/hr 08/09/19 02:00 08/11/19 02:37 Dextrose IVPB 250 mls/hr Q12H [facility] Administration Protocol Piperacillin Sod/Tazobactam 50 mls @ 100 mls/hr 08/09/19 10:00 08/11/19 02:09 Sod 3.375 gm/ Dextrose IVPB 100 mls/hr Q8H-IV [facility] Administration Protocol Lacosamide 200 mg 08/10/19 22:00 08/10/19 21:51 Vimpat Liquid - PO 200 mg BID [facility] Administration Levetiracetam 1,000 mg 08/10/19 22:00 08/10/19 21:50 Keppra Oral Solution - NGT 1,000 mg BID [facility] Administration Nystatin 500,000 units 08/08/19 18:05 Nystatin Oral Suspension - PO Q6HPO PRN ORAL PAIN/MOUTH SORES Pantoprazole Sodium 40 mg 08/10/19 22:00 08/10/19 21:49 Protonix Packets For Oral Suspension - NGT 40 mg BID [facility] Administration Phenobarbital 60 mg 08/10/19 22:00 08/10/19 21:52 Phenobarbital Liquid - NGT 60 mg BID [facility] Administration Polyethylene Glycol 17 gm 08/08/19 22:00 08/10/19 21:48 Miralax (For Daily Use) - GT 17 gm BID [facility] Administration Potassium Chloride 40 meq 08/08/19 22:00 08/10/19 21:49 Potassium Chloride Oral Liquid GT 40 meq BID [facility] Administration Senna 1 tab 08/09/19 22:00 08/10/19 21:52 Senna - PO 1 tab HS [facility] Administration Spironolactone 50 mg 08/10/19 22:00 08/10/19 21:48 Aldactone - GT 50 mg BID [facility] Administration Topiramate 200 mg 08/08/19 22:00 Topamax - GT TID [facility] Zinc Sulfate 220 mg 08/08/19 22:00 08/10/19 21:52 Orazinc - GT 220 mg BID [facility] Administration ASSESSMENT/PLAN: 38M with PMH MR and epilepsy who presented to ED initially with SOB and hypoxia requiring intubation, admitted to hospital for hypoxic respiratory failure 2/2 to covid-19. #Acute Hypoxic and Hypercapneic Respiratory Failure 2/2 covid 19 #COVID19 Pneumonia now with tracheostomy (08/07/2019), s/p Plaquenil, convalescent plasma, and Actemra #E Coli Pneumonia #Fungenmia #Bacteremia #Septic Shock #Seizure Disorder #Mental Retardation -holding Lasix 20mg IV BID in the setting of hypokalemia. -AC 30/360/40/5. -lung restrictive and stiff, will need to maintain low TV -wean FIO2 with goal SpO2 >90% -previous sputum esbl, s/p ryan, casopofungin -fungemia-quita- s/p 14 days cancidas- repeat cultures negative -bacteremia- BCx- staph capitis- sensitive to vanc -sputum- MRSA- sensitive to vanc -continue vancomycin day 27 - total of 6 weeks needed -on zosyn for empiric coverage -ID on board -antiepileptics via NGT -monitor electrolytes -Guiac positive. Monitor for more black stool. Hb remains stable. On protonix BID -Given h/o bacteremia and fungemia; I am very reluctant to insert central access on this patient. advise caution with patient's IV site. Majority of meds switched to NGT. #dvt ppx: -cont Lovenox 80 BID on hold until GIB ruled out dispo: med surg -patient is a candidate for PEG. Palliative care is discussing GOC w/ pt's family. restarted tube feeds in the meantime. Visit type - Emergency Visit Emergency Visit: Yes ED Registration Date: 06/22/19 Care time: The patient presented to the Emergency Department on the above date and was hospitalized for further evaluation of their emergent condition. - New Patient This patient is new to me today: No - Critical Care Critical Care patient: No - Discharge Referral Referred to [facility] Med P.C.: No ATTENDING PHYSICIAN STATEMENT I saw and evaluated the patient. I reviewed the resident's note and discussed the case with the resident. I agree with the resident's findings and plan as documented. SUBJECTIVE: OBJECTIVE: ASSESSMENT AND PLAN:
[2019-08-11 08:19] LABS: ALBUMIN 2.3 g/dl (3.4-5.0); BILIRUBIN,TOTAL 0.7 mg/dL (0.2-1); BLOOD UREA NITROGEN 9.5 mg/dL (7-18); CALCIUM 9.1 mg/dL (8.5-10.1); CREATININE 0.4 mg/dL (0.55-1.3); MAGNESIUM 1.8 mg/dL (1.8-2.4); PHOSPHOROUS 2.9 mg/dL (2.5-4.9); POTASSIUM 3.5 mmol/L (3.5-5.1); TOT PROT 5.7 g/dl (6.4-8.2)
[2019-08-11 08:22] LABS: BASO % 0.5 % (0-2.0); EOS % 0.8 % (0-4.5); HEMATOCRIT 28.4 % (35.4-49); HEMOGLOBIN 9.1 GM/dL (11.7-16.9); MCH 28.6 pg (25.7-33.7); MCHC 32.2 g/dl (32.0-35.9); MEAN CELL VOLUME 88.8 fl (80-96); MEAN PLT VOLUME 8.4 fl (7.5-11.1); MONO % 9.9 % (3.8-10.2); NEUT % 75.8 % (42.8-82.8); PLATELET COUNT 441 K/MM3 (134-434); RDW 17.7 % (11.9-15.9); WHITE BLOOD COUNT 16.7 K/mm3 (4.0-10.0)
[2019-08-11] MEDS: AMINO ACIDS/PROTEIN HYDROLYS 30 ML LIQUID.PKT GT SCH ×4 (08:56→18:50)
[2019-08-11] MEDS: levETIRAcetam 500 MG/5 ML ORAL SOLUTION (UNIT-DOSE CUPS) NGT SCH ×3 (10:11→22:11)
[2019-08-11] MEDS: SPIRONOLACTONE 25 MG TABLET GT SCH ×3 (10:11→22:04)
[2019-08-11] MEDS: POLYETHYLENE GLYCOL 3350 119 GM BTL GT SCH ×2 (10:12→22:11)
[2019-08-11] MEDS: ZINC SULFATE 220 MG CAPSULE (FP) GT SCH ×3 (10:12→22:04)
[2019-08-11] MEDS: FAMOTIDINE 40 MG/5 ML ORAL SUSPENSION NR SCH ×2 (10:13→11:28)
[2019-08-11] MEDS: PHENobarbital 20 MG/5 ML UNIT-DOSE CUP NGT SCH ×3 (10:13→22:10)
[2019-08-11] MEDS: POTASSIUM CHLORIDE ORAL LIQUID 20 MEQ/15 ML GT SCH ×3 (10:14→22:11)
[2019-08-11] MEDS: Lacosamide 50 MG/5 ML ORAL SOLUTION UNIT CUPS PO SCH ×3 (10:14→22:11)
[2019-08-11] MEDS: PANTOPRAZOLE SOD 40 MG SUSPENSION PACKET NGT SCH ×3 (10:14→22:07)
[2019-08-11] MEDS: ASCORBIC ACID 500 MG/5 ML UNIT DOSE CUP GT SCH ×2 (10:15→11:30)
[2019-08-11] MEDS: CHOLECALCIFEROL (VIT D3) 400 UNIT (10 MCG) TABLET NR SCH ×2 (10:15→11:29)
--- NOTE | 2019-08-11 10:36 | PN ---
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: Selected Entries 08/10/19 08/10/19 08/10/19 02:00 06:00 10:00 Supper Temperature 97.7 F 98.7 F 99.9 F H Respiratory Rate Blood Pressure 151/90 137/60 173/101 H O2 Sat by Pulse Oximetry (%) Fraction of Inspired Oxygen (FIO2) 08/10/19 08/10/19 08/10/19 14:00 17:15 17:56 Supper NPO Temperature 98.1 F 98.1 F Respiratory Rate Blood Pressure 153/80 147/83 O2 Sat by Pulse Oximetry (%) Fraction of Inspired Oxygen (FIO2) 08/10/19 08/11/19 08/11/19 21:00 00:00 02:00 Supper Temperature 99.0 F 99.5 F Respiratory 28 H 32 H Rate Blood Pressure 130/77 143/74 O2 Sat by Pulse 100 Oximetry (%) Fraction of 40 Inspired Oxygen (FIO2) 08/11/19 08/11/19 08/11/19 04:10 06:00 08:20 Supper Temperature 99.7 F H Respiratory 30 H 31 H Rate Blood Pressure 130/76 O2 Sat by Pulse 100 100 Oximetry (%) Fraction of 40 Inspired Oxygen (FIO2) 08/11/19 08/11/19 08:35 09:50 Supper Temperature 99.4 F Respiratory 25 H 28 H Rate Blood Pressure 143/77 O2 Sat by Pulse 100 Oximetry (%) Fraction of 40 Inspired Oxygen (FIO2) Laboratory Tests 08/07/19 08/09/19 08/10/19 06:10 08:10 10:10 WBC 8.7 16.4 H 18.0 H 08/11/19 06:45 WBC 16.7 H cxr- difuse infiltrates R>L RD note 08/06-Resume enteral feeds after tracheostomy: Vital 1.2 at 45cc/hr & Prosource 30ml BID. 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 Prognosis for safe and sufficient PO intake is quite guarded at this time. Weaker, s/p coovid +, trach,mech ventilated. Pt is a full code. Followed by Palliative care RN. Consider PEG insetion, with w/u for weaning to PO, if possible, when pt is stronger and has recovered. Pt is a full code. Family wishes regarding PEG insertion, for temporary vs LT need
[2019-08-11] MEDS ORDERED: PT OWN MED DRAWER 7, Y5N ONE ×3 (11:24→19:02)
--- NOTE | 2019-08-11 13:25 | PN ---
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 (short form) - Note 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: Awake and responsive on AC Mode of vent. PPLat: 23 No acute events overnight. OBJECTIVE: Intake & Output 08/08/19 08/09/19 08/10/19 08/11/19 23:59 23:59 23:59 23:59 Intake Total 1875 1600 1200 Output Total 2049 1900 2500 900 Balance -175 -300 -1300 -900 Weight 190 lb 226 lb 9.6 oz Last Vital Signs Temp Pulse Resp BP Pulse Ox 99.4 F 70 26 H 125/81 100 08/11/19 09:50 08/11/19 11:35 08/11/19 12:15 08/11/19 11:35 08/11/19 08:35 Active Medications Acetaminophen (Tylenol Oral Solution -) 650 mg GT Q6H PRN PRN Reason: FEVER Last Admin: 08/10/19 11:04 Dose: 650 mg Documented by: Albuterol/Ipratropium (Duoneb -) 1 amp NEB Q4H PRN PRN Reason: SHORTNESS OF BREATH Last Admin: 08/09/19 12:10 Dose: 1 amp Documented by: Amino Acids (Prosource No Carb Liquid Pkt) 30 ml GT BID@0800,1730 [facility] Last Admin: 08/11/19 11:32 Dose: 30 ml Documented by: Artificial Tears (Artificial Tears) 1 drop OU Q12H PRN PRN Reason: DRY EYES Last Admin: 08/10/19 10:43 Dose: 1 drop Documented by: Ascorbic Acid (Vitamin C Oral Solution -) 500 mg GT DAILY [facility] Last Admin: 08/11/19 11:30 Dose: 500 mg Documented by: Cholecalciferol (Vitamin D3 -) 800 unit NR DAILY [facility] Last Admin: 08/11/19 11:29 Dose: 800 unit Documented by: Docusate Sodium (Colace Liquid -) 100 mg PO DAILY PRN PRN Reason: CONSTIPATION Enoxaparin Sodium (Lovenox -) 80 mg SQ BID@0600,1800 [facility] Last Admin: 08/10/19 05:30 Dose: 80 mg Documented by: Famotidine (Pepcid) 40 mg NR DAILY [facility] Last Admin: 08/11/19 11:28 Dose: 40 mg Documented by: Furosemide (Lasix Injection -) 20 mg IVPUSH BID@0600,1400 [facility] Last Admin: 08/10/19 13:41 Dose: 20 mg Documented by: Vancomycin HCl 1,500 mg/ (Dextrose) 500 mls @ 250 mls/hr IVPB Q12H [facility]; Protocol Last Admin: 08/11/19 02:37 Dose: 250 mls/hr Documented by: Piperacillin Sod/Tazobactam (Sod 3.375 gm/ Dextrose) 50 mls @ 100 mls/hr IVPB Q8H-IV [facility]; Protocol Last Admin: 08/11/19 10:02 Dose: 100 mls/hr Documented by: Lacosamide (Vimpat Liquid -) 200 mg PO BID [facility] Last Admin: 08/11/19 11:27 Dose: 200 mg Documented by: Levetiracetam (Keppra Oral Solution -) 1,000 mg NGT BID [facility] Last Admin: 08/11/19 11:29 Dose: 1,000 mg Documented by: Nystatin (Nystatin Oral Suspension -) 500,000 units PO Q6HPO PRN PRN Reason: ORAL PAIN/MOUTH SORES Pantoprazole Sodium (Protonix Packets For Oral Suspension -) 40 mg NGT BID [facility] Last Admin: 08/11/19 11:29 Dose: 40 mg Documented by: Phenobarbital (Phenobarbital Liquid -) 60 mg NGT BID [facility] Last Admin: 08/11/19 11:30 Dose: 60 mg Documented by: Polyethylene Glycol (Miralax (For Daily Use) -) 17 gm GT BID [facility] Last Admin: 08/11/19 10:12 Dose: Not Given Documented by: Potassium Chloride (Potassium Chloride Oral Liquid) 40 meq GT BID [facility] Last Admin: 08/11/19 11:27 Dose: 40 meq Documented by: Senna (Senna -) 1 tab PO HS [facility] Last Admin: 08/10/19 21:52 Dose: 1 tab Documented by: Spironolactone (Aldactone -) 50 mg GT BID [facility] Last Admin: 08/11/19 11:40 Dose: 50 mg Documented by: Topiramate (Topamax -) 200 mg GT TID [facility] Zinc Sulfate (Orazinc -) 220 mg GT BID [facility] Last Admin: 08/11/19 11:32 Dose: 220 mg Documented by: Gen: trached, awake Heart: RRR Lung: decreased breath sounds at the bases Abd: soft, nontender Ext: + edema Laboratory Results - last 24 hr 08/11/19 08/11/19 06:00 06:45 WBC 16.7 H RBC 3.20 L Hgb 9.1 L Hct 28.4 L MCV 88.8 MCH 28.6 MCHC 32.2 RDW 17.7 H Plt Count 441 H MPV 8.4 D Absolute Neuts (auto) 12.7 H Neutrophils % 75.8 Lymphocytes % 13.0 D Monocytes % 9.9 Eosinophils % 0.8 D Basophils % 0.5 Nucleated RBC % 0 Sodium 139 Potassium 3.5 Chloride 101 Carbon Dioxide 34 H Anion Gap 5 L BUN 9.5 Creatinine 0.4 L Est GFR (CKD-EPI)AfAm 174.63 Est GFR (CKD-EPI)NonAf 150.67 Random Glucose 100 Calcium 9.1 Phosphorus 2.9 Magnesium 1.8 Total Bilirubin 0.7 AST 61 H ALT 63 H Alkaline Phosphatase 117 Total Protein 5.7 L Albumin 2.3 L ASSESSMENT AND PLAN: Acute Hypoxic and Hypercapneic Respiratory Failure COVID19 Pneumonia E Coli Pneumonia Fungenmia Bacteremia Septic Shock Seizure Disorder Mental Retardation - continue antibiotics per ID - continue antiepileptics - lasix, aldactone - monitor urine output, creatinine - low tidal volume ventilation - titrate FiO2, PEEP to keep SpO2 >90% - spontaeneous breathing trials as tolerated - enteral feeds: Should have PEG insertion - DVT/GI prophylaxis Dr Callaway
--- NOTE | 2019-08-11 14:01 | CONSULT ---
Consult Consult Specialty:: Palliative care Referred by:: Jose L Rao Reason for Consultation:: Goals of care - History of Present Illness Chief Complaint: COVID infection, acute respiratory failure History of Present Illness: 38M w/hx intellectual disability, epilepsy BIBEMS on 06/22/19 for worsening shortness of breath, tachypnea. He had cough/fever and was started on azithromycin by his PCP before admission. On arrival to the ED, the pt was noted to have a respiratory rate in the 60's, labored breathing with grunting and acce ssory muscle use, and oxygen saturation at 56% and was subsequently intubated. He has had a prolonged complicated hospital course #Acute Hypoxic and Hypercapneic Respiratory Failure / covid 19 #COVID19 Pneumonia s/p tracheostomy (08/07/2019), s/p Plaquenil, convalescent plasma, and Actemra #E Coli Pneumonia #Fungenmia #Bacteremia #Septic Shock #Seizure Disorder #Mental Retardation # GI Bleed Palliative care consult called for goals of care. - History Source History Provided By: Medical Record Limitations to Obtaining History: Intubated - Past Medical History [employer]: Yes: Seizure Pulmonary: Yes: Pneumonia - Alcohol/Substance Use Hx Alcohol Use: No - Smoking History Smoking history: Never smoked Have you smoked in the past 12 months: No - Social History Usual Living Arrangement: With Parent ADL: Family Assistance Home Medications - Allergies Allergies/Adverse Reactions: Allergies Allergy/AdvReac Type Severity Reaction Status Date / Time No Known Allergies Allergy Verified 06/22/19 12:24 - Home Medications Home Medications: Ambulatory Orders Topiramate [Topamax -] 200 mg PO TID #90 tablet 06/10/18 Lacosamide [Vimpat] 200 mg PO BID #60 tablet MDD 2 06/11/18 Phenobarbital - 60 mg PO BID #120 tablet MDD 4 06/11/18 levETIRAcetam [Keppra -] 1,000 mg PO BID 06/22/19 Family Medical History Family History: Unable to Obtain Review of Systems Unable to obtain ROS, reason: intubated Physical Exam Vital Signs: Vital Signs Temperature 99.4 F 08/11/19 09:50 Pulse Rate 70 08/11/19 11:35 Respiratory Rate 26 H 08/11/19 12:15 Blood Pressure 125/81 08/11/19 11:35 O2 Sat by Pulse Oximetry (%) 100 08/11/19 08:35 Constitutional: Yes: Well Nourished, No Distress Eyes: Yes: Conjunctiva Clear, EOM Intact HENT: Yes: WNL, Atraumatic, Normocephalic Neck: Yes: WNL (+ trach) Respiratory: Yes: Mechanically Ventilated Neurological: Yes: Alert, Lethargy Labs: CBC, BMP 08/11/19 06:45 08/11/19 06:00 Problem List - Problems (1) Acute respiratory failure with hypoxia Code(s): J96.01 - ACUTE RESPIRATORY FAILURE WITH HYPOXIA (2) Bacteremia Code(s): R78.81 - BACTEREMIA (3) Hypernatremia Code(s): E87.0 - HYPEROSMOLALITY AND HYPERNATREMIA (4) Hypokalemia Code(s): E87.6 - HYPOKALEMIA (5) Respiratory distress Code(s): R06.03 - ACUTE RESPIRATORY DISTRESS (6) Suspected COVID-19 virus infection Code(s): R68.89 - OTHER GENERAL SYMPTOMS AND SIGNS (7) Fall Code(s): W19.XXXA - UNSPECIFIED FALL, INITIAL ENCOUNTER Qualifiers: Encounter type: subsequent encounter Qualified Code(s): W19.XXXD - Unspecified fall, subsequent encounter Assessment/Plan 38M w/hx intellectual disability, epilepsy BIBEMS on 06/22/19 for worsening shortness of breath, tachypnea. He had cough/fever and was started on azithromycin by his PCP before admission. On arrival to the ED, the pt was noted to have a respiratory rate in the 60's, labored breathing with grunting and accessory muscle use, and oxygen saturation at 56% and was subsequently intubated. #Acute Hypoxic and Hypercapneic Respiratory Failure 2/ covid 19 #COVID19 Pneumonia s/p tracheostomy (08/07/2019), s/p Plaquenil, convalescent plasma, and Actemra- remains on mechnaical ventilation since 06/22/19 #E Coli Pneumonia #Fungemia #Bacteremia #Septic Shock #Seizure Disorder #Mental Retardation # GI Bleed anemia, persistent leucocytosis, transaminitis Prognosis guarded. Patient at risk of recurrent pneumonia, uti, sepsis, pressure ulcers and malnutrition. As per the conversation with the family Kumar was functional within the house and independent in ADLS and ambulation at home. He did respond to his sister on face time today. He remains a full code. Would cont inue all supportive measures for now. Family to decide regarding PEG placement as he would need it for nutrition and medications. Will follow. Thankyou for alowing me to participate in the care of this patient. Please call with questions. Romeo Peralta MD [phone] Total time for chart review, examination, coordination of care- 50 minutes
--- NOTE | 2019-08-11 14:16 | PN ---
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, Physician History of Present Illness: Pt seen and examined at bedside. He remains on a vent. - Current Medication List Current Medications: Active Medications Acetaminophen (Tylenol Oral Solution -) 650 mg GT Q6H PRN PRN Reason: FEVER Last Admin: 08/10/19 11:04 Dose: 650 mg Documented by: Albuterol/Ipratropium (Duoneb -) 1 amp NEB Q4H PRN PRN Reason: SHORTNESS OF BREATH Last Admin: 08/09/19 12:10 Dose: 1 amp Documented by: Amino Acids (Prosource No Carb Liquid Pkt) 30 ml GT BID@0800,1730 [facility] Last Admin: 08/11/19 11:32 Dose: 30 ml Documented by: Artificial Tears (Artificial Tears) 1 drop OU Q12H PRN PRN Reason: DRY EYES Last Admin: 08/10/19 10:43 Dose: 1 drop Documented by: Ascorbic Acid (Vitamin C Oral Solution -) 500 mg GT DAILY [facility] Last Admin: 08/11/19 11:30 Dose: 500 mg Documented by: Cholecalciferol (Vitamin D3 -) 800 unit NR DAILY [facility] Last Admin: 08/11/19 11:29 Dose: 800 unit Documented by: Docusate Sodium (Colace Liquid -) 100 mg PO DAILY PRN PRN Reason: CONSTIPATION Enoxaparin Sodium (Lovenox -) 80 mg SQ BID@0600,1800 [facility] Last Admin: 08/10/19 05:30 Dose: 80 mg Documented by: Famotidine (Pepcid) 40 mg NR DAILY [facility] Last Admin: 08/11/19 11:28 Dose: 40 mg Documented by: Furosemide (Lasix Injection -) 20 mg IVPUSH BID@0600,1400 [facility] Last Admin: 08/10/19 13:41 Dose: 20 mg Documented by: Vancomycin HCl 1,500 mg/ (Dextrose) 500 mls @ 250 mls/hr IVPB Q12H [facility]; Protocol Last Admin: 08/11/19 02:37 Dose: 250 mls/hr Documented by: Piperacillin Sod/Tazobactam (Sod 3.375 gm/ Dextrose) 50 mls @ 100 mls/hr IVPB Q8H-IV [facility]; Protocol Last Admin: 08/11/19 10:02 Dose: 100 mls/hr Documented by: Lacosamide (Vimpat Liquid -) 200 mg PO BID [facility] Last Admin: 08/11/19 11:27 Dose: 200 mg Documented by: Levetiracetam (Keppra Oral Solution -) 1,000 mg NGT BID [facility] Last Admin: 08/11/19 11:29 Dose: 1,000 mg Documented by: Nystatin (Nystatin Oral Suspension -) 500,000 units PO Q6HPO PRN PRN Reason: ORAL PAIN/MOUTH SORES Pantoprazole Sodium (Protonix Packets For Oral Suspension -) 40 mg NGT BID [facility] Last Admin: 08/11/19 11:29 Dose: 40 mg Documented by: Phenobarbital (Phenobarbital Liquid -) 60 mg NGT BID [facility] Last Admin: 08/11/19 11:30 Dose: 60 mg Documented by: Polyethylene Glycol (Miralax (For Daily Use) -) 17 gm GT BID [facility] Last Admin: 08/11/19 10:12 Dose: Not Given Documented by: Potassium Chloride (Potassium Chloride Oral Liquid) 40 meq GT BID [facility] Last Admin: 08/11/19 11:27 Dose: 40 meq Documented by: Senna (Senna -) 1 tab PO HS [facility] Last Admin: 08/10/19 21:52 Dose: 1 tab Documented by: Spironolactone (Aldactone -) 50 mg GT BID [facility] Last Admin: 08/11/19 11:40 Dose: 50 mg Documented by: Topiramate (Topamax -) 200 mg GT TID [facility] Zinc Sulfate (Orazinc -) 220 mg GT BID [facility] Last Admin: 08/11/19 11:32 Dose: 220 mg Documented by: - Objective Vital Signs: Vital Signs Temperature 99.4 F 08/11/19 09:50 Pulse Rate 70 08/11/19 11:35 Respiratory Rate 26 H 08/11/19 12:15 Blood Pressure 125/81 08/11/19 11:35 O2 Sat by Pulse Oximetry (%) 100 08/11/19 09:00 Constitutional: Yes: Calm Eyes: Yes: Conjunctiva Clear HENT: Yes: Atraumatic Cardiovascular: Yes: S1, S2 Respiratory: Yes: Mechanically Ventilated Gastrointestinal: Yes: Soft Genitourinary: Yes: Caceres Present Musculoskeletal: Yes: Muscle Weakness Edema: Yes Edema: LLE: 1+, RLE: 1+ Neurological: Yes: Lethargy Labs: CBC, BMP 08/11/19 06:45 08/11/19 06:00 INR, PTT INR 1.01 (0.83-1.09) 07/28/19 05:00 Problem List - Problems (1) Hypernatremia Code(s): E87.0 - HYPEROSMOLALITY AND HYPERNATREMIA (2) Hypokalemia Code(s): E87.6 - HYPOKALEMIA (3) Acute respiratory failure with hypoxia Code(s): J96.01 - ACUTE RESPIRATORY FAILURE WITH HYPOXIA (4) Bacteremia Code(s): R78.81 - BACTEREMIA Assessment/Plan Current Medications Generic Name Dose Route Start Last Admin Trade Name Freq PRN Reason Stop Dose Admin Acetaminophen 650 mg 08/08/19 18:05 08/10/19 11:04 Tylenol Oral Solution - GT 650 mg Q6H PRN Administration FEVER Albuterol/Ipratropium 1 amp 08/09/19 09:42 08/09/19 12:10 Duoneb - NEB 1 amp Q4H PRN Administration SHORTNESS OF BREATH Amino Acids 30 ml 08/09/19 08:00 08/11/19 11:32 Prosource No Carb Liquid Pkt GT 30 ml BID@0800,1730 [facility] Administration Artificial Tears 1 drop 08/08/19 18:05 08/10/19 10:43 Artificial Tears OU 1 drop Q12H PRN Administration DRY EYES Ascorbic Acid 500 mg 08/09/19 10:00 08/11/19 11:30 Vitamin C Oral Solution - GT 500 mg DAILY [facility] Administration Cholecalciferol 800 unit 08/09/19 10:00 08/11/19 11:29 Vitamin D3 - NR 800 unit DAILY [facility] Administration Docusate Sodium 100 mg 08/09/19 09:46 Colace Liquid - PO DAILY PRN CONSTIPATION Enoxaparin Sodium 80 mg 08/08/19 18:00 08/10/19 05:30 Lovenox - SQ 80 mg BID@0600,1800 [facility] Administration Famotidine 40 mg 08/09/19 10:00 08/11/19 11:28 Pepcid NR 40 mg DAILY [facility] Administration Furosemide 20 mg 08/09/19 14:00 08/10/19 13:41 Lasix Injection - IVPUSH 20 mg BID@0600,1400 [facility] Administration Vancomycin HCl 1,500 mg/ 500 mls @ 250 mls/hr 08/09/19 02:00 08/11/19 02:37 Dextrose IVPB 250 mls/hr Q12H [facility] Administration Protocol Piperacillin Sod/Tazobactam 50 mls @ 100 mls/hr 08/09/19 10:00 08/11/19 10:02 Sod 3.375 gm/ Dextrose IVPB 100 mls/hr Q8H-IV [facility] Administration Protocol Lacosamide 200 mg 08/10/19 22:00 08/11/19 11:27 Vimpat Liquid - PO 200 mg BID [facility] Administration Levetiracetam 1,000 mg 08/10/19 22:00 08/11/19 11:29 Keppra Oral Solution - NGT 1,000 mg BID [facility] Administration Nystatin 500,000 units 08/08/19 18:05 Nystatin Oral Suspension - PO Q6HPO PRN ORAL PAIN/MOUTH SORES Pantoprazole Sodium 40 mg 08/10/19 22:00 08/11/19 11:29 Protonix Packets For Oral Suspension - NGT 40 mg BID [facility] Administration Phenobarbital 60 mg 08/10/19 22:00 08/11/19 11:30 Phenobarbital Liquid - NGT 60 mg BID [facility] Administration Polyethylene Glycol 17 gm 08/08/19 22:00 08/11/19 10:12 Miralax (For Daily Use) - GT Not Given BID [facility] Potassium Chloride 40 meq 08/08/19 22:00 08/11/19 11:27 Potassium Chloride Oral Liquid GT 40 meq BID [facility] Administration Senna 1 tab 08/09/19 22:00 08/10/19 21:52 Senna - PO 1 tab HS [facility] Administration Spironolactone 50 mg 08/10/19 22:00 08/11/19 11:40 Aldactone - GT 50 mg BID [facility] Administration Topiramate 200 mg 08/08/19 22:00 Topamax - GT TID [facility] Zinc Sulfate 220 mg 08/08/19 22:00 08/11/19 11:32 Orazinc - GT 220 mg BID [facility] Administration Impression 1. hypokalemia 2. hypernatremia 3. resp failure 4. fungemia 5. covid 19 infection 6. ards 7. developemental delay 8. epilepsy 9. bactermia 10. resp acidosis with compensatory met alk Plan - cont potassium supplements - cont aldactone - decrease lasix to daily - monitor volume status - vent support - cont feeds
[2019-08-11] MEDS: TOPIRAMATE 200 MG TABLET GT SCH ×2 (14:36→22:03)
--- NOTE | 2019-08-11 16:21 | PN ---
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 (short form) - Note 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: remains intubated s/p trach transferred to the floor awake, following commands Vital Signs Period Temp Pulse Resp BP Sys/Ortiz Pulse Ox Last 24 Hr 98.1 F-100.0 F 70-78 24-32 125-147/74-83 98-100 +ngt cor-rrr lungs- decreased bs at bases abd-soft, nt ext- no edema CBC, BMP 08/11/19 06:45 08/11/19 06:00 Microbiology 08/09/19 11:45 Blood - Peripheral Venous Blood Culture - Preliminary NO GROWTH OBTAINED AFTER 48 HOURS, INCUBATION TO CONTINUE FOR 3 DAYS. 08/09/19 11:52 Blood - Peripheral Venous Blood Culture - Preliminary NO GROWTH OBTAINED AFTER 48 HOURS, INCUBATION TO CONTINUE FOR 3 DAYS. 08/09/19 16:30 Urine - Urine Caceres Urine Culture - Final NO GROWTH OBTAINED cxray left lung improved infiltrate vanco trough 12 covid pcr negative (repeat) quantiferon negative imp/reccd s/p trach intermittent fevers- recultured and zosyn resumed, f/u cultures are negative, d/c zosyn ARDS/pneumonia- sputum MRSA bacteremia- recurrent staph epi bacteremia- ?endocarditis- echo unrevealing- continue vancomycin, day #27 -plan 6 weeks fungemia- quita lusitanae- has completed 14 days cancidas- repeat cultures negative covid 19 positive -repeat pcr negative s/p convalescent plasma s/p tocilizumab MRSA isolation for positive sputum culture- esbl isolation for prior sputum ecoli esbl still with NGT- ?sinus disease consider ct scan head/sinuses Problem List - Problems (1) Suspected COVID-19 virus infection Code(s): R68.89 - OTHER GENERAL SYMPTOMS AND SIGNS (2) Acute respiratory failure with hypoxia Code(s): J96.01 - ACUTE RESPIRATORY FAILURE WITH HYPOXIA (3) Bacteremia Code(s): R78.81 - BACTEREMIA
[2019-08-11] MEDS: SENNOSIDES 8.6MG TABLET (FP) PO SCH (22:06)
[2019-08-12] MEDS: TOPIRAMATE 200 MG TABLET GT SCH ×3 (05:41→21:59)
[2019-08-12] MEDS: VANCOMYCIN HCL 1,500 MG in DEXTROSE 5%-WATER - 500 ML IVPB SCH ×2 (06:35→19:52)
[2019-08-12] MEDS: ACETAMINOPHEN 650 MG/20.3 ML ORAL SOLUTION (CUPS) GT PRN ×2 (07:53→16:46)
--- NOTE | 2019-08-12 07:59 | PN ---
Teaching Attending Note Name of Resident: Benigno Palmer ATTENDING PHYSICIAN STATEMENT I saw and evaluated the patient. I reviewed the resident's note and discussed the case with the resident. I agree with the resident's findings and plan as documented. SUBJECTIVE: Patient remained at baseline spiked fever despite IV antibiotic OBJECTIVE: Vital Signs Temperature 102.5 F H 08/12/19 07:45 Pulse Rate 95 H 08/12/19 07:47 Respiratory Rate 32 H 08/12/19 07:45 Blood Pressure 137/75 08/12/19 07:45 O2 Sat by Pulse Oximetry (%) 100 08/12/19 07:47 General: Young man status post trach not in distress HEENT mucous membranes moist, no anemia, no jaundice, PERRLA, no nystagmus Neck: Status post trach Chest: bilateral basal rales. CVS: S1-S2 no murmur/gallop/rub Abdomen: Nondistended, soft, bowel sounds present. Extremities: No edema., No Calf tenderness, pulses present DEVELOPMENT EXPERT: Alert nonverbal Vent settin/360/40 percent/5 Patient breathing at 42 CBC, BMP 08/12/19 09:25 08/12/19 09:25 Active Medications Acetaminophen (Tylenol Oral Solution -) 650 mg GT Q6H PRN PRN Reason: FEVER Last Admin: 08/12/19 07:53 Dose: 650 mg Documented by: Albuterol/Ipratropium (Duoneb -) 1 amp NEB Q4H PRN PRN Reason: SHORTNESS OF BREATH Last Admin: 08/09/19 12:10 Dose: 1 amp Documented by: Amino Acids (Prosource No Carb Liquid Pkt) 30 ml GT BID@0800,1730 [facility] Last Admin: 08/12/19 09:52 Dose: 30 ml Documented by: Artificial Tears (Artificial Tears) 1 drop OU Q12H PRN PRN Reason: DRY EYES Last Admin: 08/10/19 10:43 Dose: 1 drop Documented by: Ascorbic Acid (Vitamin C Oral Solution -) 500 mg GT DAILY [facility] Last Admin: 08/12/19 11:35 Dose: 500 mg Documented by: Cholecalciferol (Vitamin D3 -) 800 unit NR DAILY [facility] Last Admin: 08/12/19 11:34 Dose: 800 unit Documented by: Docusate Sodium (Colace Liquid -) 100 mg PO DAILY PRN PRN Reason: CONSTIPATION Enoxaparin Sodium (Lovenox -) 80 mg SQ BID@0600,1800 [facility] Last Admin: 08/10/19 05:30 Dose: 80 mg Documented by: Famotidine (Pepcid) 40 mg NR DAILY [facility] Last Admin: 08/12/19 11:35 Dose: 40 mg Documented by: Furosemide (Lasix Oral Solution -) 40 mg PO DAILY [facility] Last Admin: 08/12/19 10:36 Dose: 40 mg Documented by: Vancomycin HCl 1,500 mg/ (Dextrose) 500 mls @ 250 mls/hr IVPB Q12H [facility]; Protocol Last Admin: 08/12/19 06:35 Dose: 250 mls/hr Documented by: Meropenem 1 gm/ Dextrose 100 mls @ 200 mls/hr IVPB Q8H-IV [facility] Lacosamide (Vimpat Liquid -) 200 mg PO BID [facility] Last Admin: 08/12/19 10:28 Dose: 200 mg Documented by: Levetiracetam (Keppra Oral Solution -) 1,000 mg NGT BID [facility] Last Admin: 08/12/19 10:29 Dose: 1,000 mg Documented by: Nystatin (Nystatin Oral Suspension -) 500,000 units PO Q6HPO PRN PRN Reason: ORAL PAIN/MOUTH SORES Pantoprazole Sodium (Protonix Packets For Oral Suspension -) 40 mg NGT BID [facility] Last Admin: 08/12/19 11:35 Dose: 40 mg Documented by: Phenobarbital (Phenobarbital Liquid -) 60 mg NGT BID [facility] Last Admin: 08/12/19 10:29 Dose: 60 mg Documented by: Polyethylene Glycol (Miralax (For Daily Use) -) 17 gm GT BID [facility] Last Admin: 08/12/19 11:30 Dose: Not Given Documented by: Potassium Chloride (Potassium Chloride Oral Liquid) 40 meq GT BID [facility] Last Admin: 08/12/19 11:36 Dose: 40 meq Documented by: Senna (Senna -) 1 tab PO HS [facility] Last Admin: 08/11/19 22:06 Dose: 1 tab Documented by: Spironolactone (Aldactone -) 50 mg GT BID [facility] Last Admin: 08/12/19 10:45 Dose: 50 mg Documented by: Topiramate (Topamax -) 200 mg GT TID [facility] Last Admin: 08/12/19 05:41 Dose: 200 mg Documented by: Zinc Sulfate (Orazinc -) 220 mg GT BID [facility] Last Admin: 08/12/19 11:36 Dose: 220 mg Documented by: ASSESSMENT AND PLAN: 39 years old male mentally challenged, seizure disorders lives at home admitted with hypoxic respiratory failure on June 22, 2019 secondary to COVID-19, multiple pulmonary infection and bacteremia treated for fungemia, MRSA, ESBL E. coli,, persistent staph epi bacteremia normal echocardiogram on vancomycin as per ID total 6 weeks of Vanco today [id number] , patient did spike fever on August 09, 2019 put on Zosyn, remained afebrile but persistent elevation of WBC. ID/pulmonary on the case Plan: Patient keep on spiking despite Zosyn and vancomycin although TWC is trending normal, patient also had diarrhea, discussed with ID recommended fraser scan including sinus, panculture, stool for C. difficile Will discuss with IR for possible PEG placement Will discuss with IR for possible PICC line placement Plan discussed with the resident Problem List - Problems (1) Acute respiratory failure with hypoxia Assessment/Plan: Due to COVID pneumonia status post intubation now on trach, vent dependent presently tachypneic tachycardic due to high-grade fever, vent management as per critical care. Problems reviewed: Yes Code(s): J96.01 - ACUTE RESPIRATORY FAILURE WITH HYPOXIA (2) Bacteremia Assessment/Plan: Patient grew staph epi on multiple cultures on 6 weeks of IV vancomycin today is day 30 last culture done on August 08 shows no growth so far. Problems reviewed: Yes Code(s): R78.81 - BACTEREMIA (3) Fever Assessment/Plan: Patient spiked fever despite vancomycin and Zosyn, discussed with ID recommended panculture, fraser scan including sinus, stool C. difficile we will follow-up ID recommendation meantime continue current antibiotic. Problems reviewed: Yes Code(s): R50.9 - FEVER, UNSPECIFIED (4) Seizure disorder Assessment/Plan: Continue seizure medications Problems reviewed: Yes Code(s): G40.909 - EPILEPSY, UNSP, NOT INTRACTABLE, WITHOUT STATUS EPILEPTICUS
[2019-08-12 09:52] LABS: HEMATOCRIT 27.2 % (35.4-49); HEMOGLOBIN 8.7 GM/dL (11.7-16.9); MCH 29.1 pg (25.7-33.7); MCHC 32.1 g/dl (32.0-35.9); MEAN CELL VOLUME 90.4 fl (80-96); MEAN PLT VOLUME 8.4 fl (7.5-11.1); PLATELET COUNT 439 K/MM3 (134-434); RDW 17.6 % (11.9-15.9); WHITE BLOOD COUNT 12.1 K/mm3 (4.0-10.0)
[2019-08-12] MEDS: AMINO ACIDS/PROTEIN HYDROLYS 30 ML LIQUID.PKT GT SCH ×2 (09:52→17:40)
--- NOTE | 2019-08-12 10:15 | PN ---
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, CLEANING ATTENDANT - Note 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: Selected Entries 08/11/19 08/11/19 08/11/19 02:00 06:00 09:50 Supper Temperature 99.5 F 99.7 F H 99.4 F Blood Pressure 143/74 130/76 143/77 08/11/19 08/11/19 08/11/19 11:35 14:38 18:00 Supper Temperature 100.0 F H 98.1 F Blood Pressure 125/81 136/80 127/79 08/11/19 08/11/19 08/12/19 18:16 20:39 02:00 Supper NPO Temperature 98.3 F 98.5 F Blood Pressure 134/90 137/83 08/12/19 08/12/19 08/12/19 06:00 07:45 10:05 Supper Temperature 98.4 F 102.5 F H 99 F Blood Pressure 141/87 137/75 129/80 Laboratory Tests 08/11/19 08/12/19 06:45 09:25 WBC 16.7 H 12.1 H Appreciate Palliative care input. Awaiting familiy decision regarding PEG, hopefully to be used for short term, as pt recovers. MBS when stronger, possibly in future to wean from PEG, based on family wishes.
[2019-08-12 10:24] LABS: ALBUMIN 2.3 g/dl (3.4-5.0); BILIRUBIN,TOTAL 0.4 mg/dL (0.2-1); BLOOD UREA NITROGEN 10.2 mg/dL (7-18); CALCIUM 8.7 mg/dL (8.5-10.1); CREATININE 0.5 mg/dL (0.55-1.3); POTASSIUM 3.5 mmol/L (3.5-5.1); TOT PROT 5.8 g/dl (6.4-8.2)
[2019-08-12] MEDS ORDERED: PT OWN MED DRAWER 7, Y5N ONE ×2 (10:24→21:51)
[2019-08-12] MEDS: Lacosamide 50 MG/5 ML ORAL SOLUTION UNIT CUPS PO SCH ×2 (10:28→21:58)
[2019-08-12] MEDS: PHENobarbital 20 MG/5 ML UNIT-DOSE CUP NGT SCH ×2 (10:29→21:57)
[2019-08-12] MEDS: levETIRAcetam 500 MG/5 ML ORAL SOLUTION (UNIT-DOSE CUPS) NGT SCH ×2 (10:29→21:58)
[2019-08-12] MEDS: FUROSEMIDE 40 MG/5 ML UNIT-DOSE CUP PO SCH (10:36)
[2019-08-12] MEDS: SPIRONOLACTONE 25 MG TABLET GT SCH ×2 (10:45→21:59)
[2019-08-12] MEDS: POLYETHYLENE GLYCOL 3350 119 GM BTL GT SCH ×2 (11:30→21:47)
[2019-08-12] MEDS: CHOLECALCIFEROL (VIT D3) 400 UNIT (10 MCG) TABLET NR SCH (11:34)
[2019-08-12] MEDS: ASCORBIC ACID 500 MG/5 ML UNIT DOSE CUP GT SCH (11:35)
[2019-08-12] MEDS: PANTOPRAZOLE SOD 40 MG SUSPENSION PACKET NGT SCH ×2 (11:35→21:59)
[2019-08-12] MEDS: FAMOTIDINE 40 MG/5 ML ORAL SUSPENSION NR SCH (11:35)
[2019-08-12] MEDS: ZINC SULFATE 220 MG CAPSULE (FP) GT SCH ×2 (11:36→22:00)
[2019-08-12] MEDS: POTASSIUM CHLORIDE ORAL LIQUID 20 MEQ/15 ML GT SCH ×2 (11:36→22:00)
[2019-08-12] MEDS ORDERED: LORazepam 2 MG/ML SDV VIAL IVPUSH ONE (11:39)
--- NOTE | 2019-08-12 11:44 | PN ---
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 (short form) - Note 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: remains intubated s/p trach febrile to 102.5 Vital Signs Period Temp Pulse Resp BP Sys/Ortiz Pulse Ox Last 24 Hr 98.1 F-102.5 F 77-106 20-39 127-141/75-90 99-100 trach ngt cor-rrr lungs decreased bs at bases abd soft ext no edema +facial twitch +myoclonus right arm CBC, BMP 08/12/19 09:25 08/12/19 09:25 Microbiology 08/09/19 11:45 Blood - Peripheral Venous Blood Culture - Preliminary NO GROWTH OBTAINED AFTER 48 HOURS, INCUBATION TO CONTINUE FOR 3 DAYS. 08/09/19 11:52 Blood - Peripheral Venous Blood Culture - Preliminary NO GROWTH OBTAINED AFTER 48 HOURS, INCUBATION TO CONTINUE FOR 3 DAYS. 08/09/19 16:30 Urine - Urine Caceres Urine Culture - Final NO GROWTH OBTAINED cxray left lung improved infiltrate vanco trough 12 covid pcr negative (repeat) quantiferon negative imp/reccd s/p trach intermittent fevers- reculture now, elevated lfts- image abd/pelvis, sinus ct , nurse reports loose stools, stool cdiff ARDS/pneumonia- sputum MRSA bacteremia- recurrent staph epi bacteremia- ?endocarditis- echo unrevealing- continue vancomycin, day #28 -plan 6 weeks fungemia- quita lusitanae- has completed 14 days cancidas- repeat cultures negative covid 19 positive -repeat pcr negative s/p convalescent plasma s/p tocilizumab MRSA isolation for positive sputum culture- esbl isolation for prior sputum ecoli esbl add meropenem d/w hospitalist Problem List - Problems (1) Suspected COVID-19 virus infection Code(s): R68.89 - OTHER GENERAL SYMPTOMS AND SIGNS (2) Acute respiratory failure with hypoxia Code(s): J96.01 - ACUTE RESPIRATORY FAILURE WITH HYPOXIA (3) Bacteremia Code(s): R78.81 - BACTEREMIA
[2019-08-12] MEDS ORDERED: CEFEPIME 2 GM in DEXTROSE 5%-WATER 100 ML IVPB SCH (11:45)
[2019-08-12] MEDS ORDERED: GENTAMICIN INJECTION 200 MG in SODIUM CHLORIDE 100 ML IVPB ONE (11:47)
--- NOTE | 2019-08-12 12:01 | PN ---
Physical Exam: SUBJECTIVE: No acute events. Tachypneic and responsive to name and commands in Congolese OBJECTIVE: Vital Signs Period Temp Pulse Resp BP Sys/Ortiz Pulse Ox Last 24 Hr 98.1 F-102.5 F 77-106 20-39 127-141/75-90 99-100 GENERAL: NAD, awake, responds to name HEAD: MMM NECK: Tracheostomy intact without any drainage, no secretions, healed areas of line insertion without any erythema LUNGS: Scattered rhonchi throughout. No wheezing appreciated. AC mode of vent 40% fiO2, unchanged vent settings from previous. HEART: RRR, S1, S2 without murmur ABDOMEN: Soft, nondistended, no grimmacing with palpation, no guarding. EXTREMITIES: 2+ pulses, warm, well-perfused, no edema. Laboratory Results - last 24 hr 08/12/19 08/12/19 08/12/19 09:25 09:25 09:25 WBC 12.1 H RBC 3.00 L Hgb 8.7 L Hct 27.2 L MCV 90.4 MCH 29.1 MCHC 32.1 RDW 17.6 H Plt Count 439 H MPV 8.4 D-Dimer 1787 H Sodium 144 Potassium 3.5 Chloride 113 H Carbon Dioxide 27 Anion Gap 5 L BUN 10.2 Creatinine 0.5 L Est GFR (CKD-EPI)AfAm 159.33 Est GFR (CKD-EPI)NonAf 137.47 Random Glucose 141 H Calcium 8.7 Magnesium 2.0 Total Bilirubin 0.4 AST 134 H ALT 144 H Alkaline Phosphatase 118 H Total Protein 5.8 L Albumin 2.3 L Active Medications Generic Name Dose Route Start Last Admin Trade Name Robin PRN Reason Stop Dose Admin Acetaminophen 650 mg 08/08/19 18:05 08/12/19 07:53 Tylenol Oral Solution - GT 650 mg Q6H PRN Administration FEVER Albuterol/Ipratropium 1 amp 08/09/19 09:42 08/09/19 12:10 Duoneb - NEB 1 amp Q4H PRN Administration SHORTNESS OF BREATH Amino Acids 30 ml 08/09/19 08:00 08/12/19 09:52 Prosource No Carb Liquid Pkt GT 30 ml BID@0800,1730 TIKI Administration Artificial Tears 1 drop 08/08/19 18:05 08/10/19 10:43 Artificial Tears OU 1 drop Q12H PRN Administration DRY EYES Ascorbic Acid 500 mg 08/09/19 10:00 08/12/19 11:35 Vitamin C Oral Solution - GT 500 mg DAILY TIKI Administration Cholecalciferol 800 unit 08/09/19 10:00 08/12/19 11:34 Vitamin D3 - NR 800 unit DAILY TIKI Administration Docusate Sodium 100 mg 08/09/19 09:46 Colace Liquid - PO DAILY PRN CONSTIPATION Enoxaparin Sodium 80 mg 08/08/19 18:00 08/10/19 05:30 Lovenox - SQ 80 mg BID@0600,1800 TIKI Administration Famotidine 40 mg 08/09/19 10:00 08/12/19 11:35 Pepcid NR 40 mg DAILY TIKI Administration Furosemide 40 mg 08/12/19 10:00 08/12/19 10:36 Lasix Oral Solution - PO 40 mg DAILY TIKI Administration Vancomycin HCl 1,500 mg/ 500 mls @ 250 mls/hr 08/12/19 07:00 08/12/19 06:35 Dextrose IVPB 250 mls/hr Q12H TIKI Administration Protocol Meropenem 1 gm/ Dextrose 100 mls @ 200 mls/hr 08/12/19 12:00 IVPB Q8H-IV TIKI Lacosamide 200 mg 08/10/19 22:00 08/12/19 10:28 Vimpat Liquid - PO 200 mg BID TIKI Administration Levetiracetam 1,000 mg 08/10/19 22:00 08/12/19 10:29 Keppra Oral Solution - NGT 1,000 mg BID TIKI Administration Nystatin 500,000 units 08/08/19 18:05 Nystatin Oral Suspension - PO Q6HPO PRN ORAL PAIN/MOUTH SORES Pantoprazole Sodium 40 mg 08/10/19 22:00 08/12/19 11:35 Protonix Packets For Oral Suspension - NGT 40 mg BID TIKI Administration Phenobarbital 60 mg 08/10/19 22:00 08/12/19 10:29 Phenobarbital Liquid - NGT 60 mg BID TIKI Administration Polyethylene Glycol 17 gm 08/08/19 22:00 08/12/19 11:30 Miralax (For Daily Use) - GT Not Given BID TIKI Potassium Chloride 40 meq 08/08/19 22:00 08/12/19 11:36 Potassium Chloride Oral Liquid GT 40 meq BID TIKI Administration Senna 1 tab 08/09/19 22:00 08/11/19 22:06 Senna - PO 1 tab HS TIKI Administration Spironolactone 50 mg 08/10/19 22:00 08/12/19 10:45 Aldactone - GT 50 mg BID TIKI Administration Topiramate 200 mg 08/08/19 22:00 08/12/19 05:41 Topamax - GT 200 mg TID TIKI Administration Zinc Sulfate 220 mg 08/08/19 22:00 08/12/19 11:36 Orazinc - GT 220 mg BID TIKI Administration ASSESSMENT/PLAN: 38M with PMH MR and epilepsy who presented to ED initially with SOB and hypoxia requiring intubation, admitted to hospital for hypoxic respiratory failure 2/2 to covid-19. #Acute Hypoxic and Hypercapneic Respiratory Failure 2/2 covid 19 #COVID19 Pneumonia now with tracheostomy (08/07/2019), s/p Plaquenil, convalescent plasma, and Actemra #E Coli Pneumonia #Fungenmia #Bacteremia #Septic Shock #Seizure Disorder #Mental Retardation --Spiking fevers with cytokine storming today --CT Head, Chest, Abd for r/o collections --Discussed with ID and upgrading to carbapenem for coverage of resistant bacteria --Tylenol PRN for fevers alongside of ice packs if needed --Continue vent settings per pulm --Continue to wean O2; maintain saturations >92% --s/p Caspofungin (completed 14 days) for fungemia with line changes --Blood cultures redrawn today --Continue antiepileptics --Discussion with palliative and family regarding PEG tube placement continue --H/H stable without any significant dark stooling noted within past day --Discuss with radiology regarding picc line --Would like patient to be afebrile for 24hrs before placing new IV insertion considering distal end will be near great vessels and heart DVT PPX - Lovenox on hold from before due to suspected GIB; if H/H remains stable may reinstate tomorrow ppx with BID dosing Dispo: Continue on M/S; fraser-scan for infection identification Case discussed with Dr. Maira Palmer, DO - IM PGY-3 Visit type - Emergency Visit Emergency Visit: Yes ED Registration Date: 06/22/19 Care time: The patient presented to the Emergency Department on the above date and was hospitalized for further evaluation of their emergent condition. - New Patient This patient is new to me today: Yes Date on this admission: 08/12/19 - Critical Care Critical Care patient: No ATTENDING PHYSICIAN STATEMENT I saw and evaluated the patient. I reviewed the resident's note and discussed the case with the resident. I agree with the resident's findings and plan as documented. SUBJECTIVE: OBJECTIVE: ASSESSMENT AND PLAN:
[2019-08-12] MEDS ORDERED: DEXTROSE 5%-WATER 100 ML IVPB ONE ×2 (12:57→17:35)
[2019-08-12] MEDS ORDERED: MEROPENEM 1 GM VIAL (RESTRICTED TO ID) IVPB ONE ×2 (12:57→17:35)
--- NOTE | 2019-08-12 13:06 | PN ---
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, Physician History of Present Illness: Pt seen and examined at bedside. No great change in status. - Current Medication List Current Medications: Active Medications Acetaminophen (Tylenol Oral Solution -) 650 mg GT Q6H PRN PRN Reason: FEVER Last Admin: 08/12/19 07:53 Dose: 650 mg Documented by: Albuterol/Ipratropium (Duoneb -) 1 amp NEB Q4H PRN PRN Reason: SHORTNESS OF BREATH Last Admin: 08/09/19 12:10 Dose: 1 amp Documented by: Amino Acids (Prosource No Carb Liquid Pkt) 30 ml GT BID@0800,1730 [facility] Last Admin: 08/12/19 09:52 Dose: 30 ml Documented by: Artificial Tears (Artificial Tears) 1 drop OU Q12H PRN PRN Reason: DRY EYES Last Admin: 08/10/19 10:43 Dose: 1 drop Documented by: Ascorbic Acid (Vitamin C Oral Solution -) 500 mg GT DAILY [facility] Last Admin: 08/12/19 11:35 Dose: 500 mg Documented by: Cholecalciferol (Vitamin D3 -) 800 unit NR DAILY [facility] Last Admin: 08/12/19 11:34 Dose: 800 unit Documented by: Docusate Sodium (Colace Liquid -) 100 mg PO DAILY PRN PRN Reason: CONSTIPATION Enoxaparin Sodium (Lovenox -) 80 mg SQ BID@0600,1800 [facility] Last Admin: 08/10/19 05:30 Dose: 80 mg Documented by: Famotidine (Pepcid) 40 mg NR DAILY [facility] Last Admin: 08/12/19 11:35 Dose: 40 mg Documented by: Furosemide (Lasix Oral Solution -) 40 mg PO DAILY [facility] Last Admin: 08/12/19 10:36 Dose: 40 mg Documented by: Vancomycin HCl 1,500 mg/ (Dextrose) 500 mls @ 250 mls/hr IVPB Q12H TIKI; Protocol Last Admin: 08/12/19 06:35 Dose: 250 mls/hr Documented by: Meropenem 1 gm/ Dextrose 100 mls @ 200 mls/hr IVPB Q8H-IV TIKI Lacosamide (Vimpat Liquid -) 200 mg PO BID [facility] Last Admin: 08/12/19 10:28 Dose: 200 mg Documented by: Levetiracetam (Keppra Oral Solution -) 1,000 mg NGT BID [facility] Last Admin: 08/12/19 10:29 Dose: 1,000 mg Documented by: Nystatin (Nystatin Oral Suspension -) 500,000 units PO Q6HPO PRN PRN Reason: ORAL PAIN/MOUTH SORES Pantoprazole Sodium (Protonix Packets For Oral Suspension -) 40 mg NGT BID [facility] Last Admin: 08/12/19 11:35 Dose: 40 mg Documented by: Phenobarbital (Phenobarbital Liquid -) 60 mg NGT BID [facility] Last Admin: 08/12/19 10:29 Dose: 60 mg Documented by: Polyethylene Glycol (Miralax (For Daily Use) -) 17 gm GT BID [facility] Last Admin: 08/12/19 11:30 Dose: Not Given Documented by: Potassium Chloride (Potassium Chloride Oral Liquid) 40 meq GT BID [facility] Last Admin: 08/12/19 11:36 Dose: 40 meq Documented by: Senna (Senna -) 1 tab PO HS [facility] Last Admin: 08/11/19 22:06 Dose: 1 tab Documented by: Spironolactone (Aldactone -) 50 mg GT BID [facility] Last Admin: 08/12/19 10:45 Dose: 50 mg Documented by: Topiramate (Topamax -) 200 mg GT TID [facility] Last Admin: 08/12/19 05:41 Dose: 200 mg Documented by: Zinc Sulfate (Orazinc -) 220 mg GT BID [facility] Last Admin: 08/12/19 11:36 Dose: 220 mg Documented by: - Objective Vital Signs: Vital Signs Temperature 103.3 F H 08/12/19 12:30 Pulse Rate 115 H 08/12/19 12:30 Respiratory Rate 45 H 08/12/19 12:30 Blood Pressure 147/78 08/12/19 12:30 O2 Sat by Pulse Oximetry (%) 100 08/12/19 12:19 Constitutional: Yes: Calm Eyes: Yes: Conjunctiva Clear HENT: Yes: Atraumatic Neck: Yes: Supple Cardiovascular: Yes: S1, S2 Respiratory: Yes: Mechanically Ventilated Gastrointestinal: Yes: Soft Genitourinary: Yes: Caceres Present Edema: Yes Edema: LUE: Trace, RUE: Trace, LLE: Trace, RLE: Trace Neurological: Yes: Confusion Labs: CBC, BMP 08/12/19 09:25 08/12/19 09:25 INR, PTT INR 1.01 (0.83-1.09) 07/28/19 05:00 Problem List - Problems (1) Hypernatremia Code(s): E87.0 - HYPEROSMOLALITY AND HYPERNATREMIA (2) Hypokalemia Code(s): E87.6 - HYPOKALEMIA (3) Acute respiratory failure with hypoxia Code(s): J96.01 - ACUTE RESPIRATORY FAILURE WITH HYPOXIA (4) Bacteremia Code(s): R78.81 - BACTEREMIA Assessment/Plan Current Medications Generic Name Dose Route Start Last Admin Trade Name Freq PRN Reason Stop Dose Admin Acetaminophen 650 mg 08/08/19 18:05 08/12/19 07:53 Tylenol Oral Solution - GT 650 mg Q6H PRN Administration FEVER Albuterol/Ipratropium 1 amp 08/09/19 09:42 08/09/19 12:10 Duoneb - NEB 1 amp Q4H PRN Administration SHORTNESS OF BREATH Amino Acids 30 ml 08/09/19 08:00 08/12/19 09:52 Prosource No Carb Liquid Pkt GT 30 ml BID@0800,1730 TIKI Administration Artificial Tears 1 drop 08/08/19 18:05 08/10/19 10:43 Artificial Tears OU 1 drop Q12H PRN Administration DRY EYES Ascorbic Acid 500 mg 08/09/19 10:00 08/12/19 11:35 Vitamin C Oral Solution - GT 500 mg DAILY TIKI Administration Cholecalciferol 800 unit 08/09/19 10:00 08/12/19 11:34 Vitamin D3 - NR 800 unit DAILY TIKI Administration Docusate Sodium 100 mg 08/09/19 09:46 Colace Liquid - PO DAILY PRN CONSTIPATION Enoxaparin Sodium 80 mg 08/08/19 18:00 08/10/19 05:30 Lovenox - SQ 80 mg BID@0600,1800 TIKI Administration Famotidine 40 mg 08/09/19 10:00 08/12/19 11:35 Pepcid NR 40 mg DAILY TIKI Administration Furosemide 40 mg 08/12/19 10:00 08/12/19 10:36 Lasix Oral Solution - PO 40 mg DAILY TIKI Administration Vancomycin HCl 1,500 mg/ 500 mls @ 250 mls/hr 08/12/19 07:00 08/12/19 06:35 Dextrose IVPB 250 mls/hr Q12H TIKI Administration Protocol Meropenem 1 gm/ Dextrose 100 mls @ 200 mls/hr 08/12/19 12:00 IVPB Q8H-IV TIKI Lacosamide 200 mg 08/10/19 22:00 08/12/19 10:28 Vimpat Liquid - PO 200 mg BID TIKI Administration Levetiracetam 1,000 mg 08/10/19 22:00 08/12/19 10:29 Keppra Oral Solution - NGT 1,000 mg BID TIKI Administration Nystatin 500,000 units 08/08/19 18:05 Nystatin Oral Suspension - PO Q6HPO PRN ORAL PAIN/MOUTH SORES Pantoprazole Sodium 40 mg 08/10/19 22:00 08/12/19 11:35 Protonix Packets For Oral Suspension - NGT 40 mg BID TIKI Administration Phenobarbital 60 mg 08/10/19 22:00 08/12/19 10:29 Phenobarbital Liquid - NGT 60 mg BID TIKI Administration Polyethylene Glycol 17 gm 08/08/19 22:00 08/12/19 11:30 Miralax (For Daily Use) - GT Not Given BID TIKI Potassium Chloride 40 meq 08/08/19 22:00 08/12/19 11:36 Potassium Chloride Oral Liquid GT 40 meq BID TIKI Administration Senna 1 tab 08/09/19 22:00 08/11/19 22:06 Senna - PO 1 tab HS TIKI Administration Spironolactone 50 mg 08/10/19 22:00 08/12/19 10:45 Aldactone - GT 50 mg BID TIKI Administration Topiramate 200 mg 08/08/19 22:00 08/12/19 05:41 Topamax - GT 200 mg TID TIKI Administration Zinc Sulfate 220 mg 08/08/19 22:00 08/12/19 11:36 Orazinc - GT 220 mg BID TIKI Administration Impression 1. hypokalemia 2. hypernatremia 3. resp failure 4. fungemia 5. covid 19 infection 6. ards 7. developemental delay 8. epilepsy 9. bactermia 10. resp acidosis with compensatory met alk Plan - cont supplements - cont diuretics - pt still with fever - vent support - monitor volume status - cont feeds
[2019-08-12] MEDS: MEROPENEM 1 GM in DEXTROSE 5%-WATER 100 ML IVPB SCH ×2 (13:12→18:53)
--- NOTE | 2019-08-12 13:44 | PN ---
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 (short form) - Note 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: Awake and responsive on AC Mode of vent. RR: 40 PPLat: 23 No acute events overnight. OBJECTIVE: Intake & Output 08/09/19 08/10/19 08/11/19 08/12/19 23:59 23:59 23:59 23:59 Intake Total 1600 1200 550 100 Output Total 1900 2500 2650 1000 Balance -300 -1300 -2100 -900 Weight 226 lb 9.6 oz 220 lb Last Vital Signs Temp Pulse Resp BP Pulse Ox 103.3 F H 117 H 45 H 147/78 100 08/12/19 12:30 08/12/19 13:17 08/12/19 12:30 08/12/19 12:30 08/12/19 13:17 Active Medications Acetaminophen (Tylenol Oral Solution -) 650 mg GT Q6H PRN PRN Reason: FEVER Last Admin: 08/12/19 07:53 Dose: 650 mg Documented by: Albuterol/Ipratropium (Duoneb -) 1 amp NEB Q4H PRN PRN Reason: SHORTNESS OF BREATH Last Admin: 08/09/19 12:10 Dose: 1 amp Documented by: Amino Acids (Prosource No Carb Liquid Pkt) 30 ml GT BID@0800,1730 [facility] Last Admin: 08/12/19 09:52 Dose: 30 ml Documented by: Artificial Tears (Artificial Tears) 1 drop OU Q12H PRN PRN Reason: DRY EYES Last Admin: 08/10/19 10:43 Dose: 1 drop Documented by: Ascorbic Acid (Vitamin C Oral Solution -) 500 mg GT DAILY [facility] Last Admin: 08/12/19 11:35 Dose: 500 mg Documented by: Cholecalciferol (Vitamin D3 -) 800 unit NR DAILY [facility] Last Admin: 08/12/19 11:34 Dose: 800 unit Documented by: Docusate Sodium (Colace Liquid -) 100 mg PO DAILY PRN PRN Reason: CONSTIPATION Enoxaparin Sodium (Lovenox -) 80 mg SQ BID@0600,1800 [facility] Last Admin: 08/10/19 05:30 Dose: 80 mg Documented by: Famotidine (Pepcid) 40 mg NR DAILY [facility] Last Admin: 08/12/19 11:35 Dose: 40 mg Documented by: Furosemide (Lasix Oral Solution -) 40 mg PO DAILY [facility] Last Admin: 08/12/19 10:36 Dose: 40 mg Documented by: Vancomycin HCl 1,500 mg/ (Dextrose) 500 mls @ 250 mls/hr IVPB Q12H [facility]; Protocol Last Admin: 08/12/19 06:35 Dose: 250 mls/hr Documented by: Meropenem 1 gm/ Dextrose 100 mls @ 200 mls/hr IVPB Q8H-IV [facility] Last Admin: 08/12/19 13:12 Dose: 200 mls/hr Documented by: Lacosamide (Vimpat Liquid -) 200 mg PO BID [facility] Last Admin: 08/12/19 10:28 Dose: 200 mg Documented by: Levetiracetam (Keppra Oral Solution -) 1,000 mg NGT BID [facility] Last Admin: 08/12/19 10:29 Dose: 1,000 mg Documented by: Nystatin (Nystatin Oral Suspension -) 500,000 units PO Q6HPO PRN PRN Reason: ORAL PAIN/MOUTH SORES Pantoprazole Sodium (Protonix Packets For Oral Suspension -) 40 mg NGT BID [facility] Last Admin: 08/12/19 11:35 Dose: 40 mg Documented by: Phenobarbital (Phenobarbital Liquid -) 60 mg NGT BID [facility] Last Admin: 08/12/19 10:29 Dose: 60 mg Documented by: Polyethylene Glycol (Miralax (For Daily Use) -) 17 gm GT BID [facility] Last Admin: 08/12/19 11:30 Dose: Not Given Documented by: Potassium Chloride (Potassium Chloride Oral Liquid) 40 meq GT BID [facility] Last Admin: 08/12/19 11:36 Dose: 40 meq Documented by: Senna (Senna -) 1 tab PO HS [facility] Last Admin: 08/11/19 22:06 Dose: 1 tab Documented by: Spironolactone (Aldactone -) 50 mg GT BID [facility] Last Admin: 08/12/19 10:45 Dose: 50 mg Documented by: Topiramate (Topamax -) 200 mg GT TID [facility] Last Admin: 08/12/19 05:41 Dose: 200 mg Documented by: Zinc Sulfate (Orazinc -) 220 mg GT BID [facility] Last Admin: 08/12/19 11:36 Dose: 220 mg Documented by: Gen: trached, awake Heart: RRR Lung: decreased breath sounds at the bases Abd: soft, nontender Ext: + edema Laboratory Results - last 24 hr 08/12/19 08/12/19 08/12/19 09:25 09:25 09:25 WBC 12.1 H RBC 3.00 L Hgb 8.7 L Hct 27.2 L MCV 90.4 MCH 29.1 MCHC 32.1 RDW 17.6 H Plt Count 439 H MPV 8.4 D-Dimer 1787 H Sodium 144 Potassium 3.5 Chloride 113 H Carbon Dioxide 27 Anion Gap 5 L BUN 10.2 Creatinine 0.5 L Est GFR (CKD-EPI)AfAm 159.33 Est GFR (CKD-EPI)NonAf 137.47 Random Glucose 141 H Calcium 8.7 Magnesium 2.0 Total Bilirubin 0.4 AST 134 H ALT 144 H Alkaline Phosphatase 118 H Total Protein 5.8 L Albumin 2.3 L ASSESSMENT AND PLAN: Acute Hypoxic and Hypercapneic Respiratory Failure COVID19 Pneumonia E Coli Pneumonia Fungenmia Bacteremia Septic Shock Seizure Disorder Mental Retardation - Ativan PRN - ABX per ID - continue antiepileptics - lasix, aldactone - monitor urine output, creatinine - low tidal volume ventilation - titrate FiO2, PEEP to keep SpO2 >90% - spontaeneous breathing trials as tolerated - enteral feeds: Should have PEG insertion - DVT/GI prophylaxis Dr Callaway
[2019-08-12] MEDS: ENOXAPARIN NA (PORCINE) 80 MG/0.8 ML DISP.SYRIN SQ SCH (17:40)
[2019-08-12] MEDS: LORazepam 2 MG/ML SDV VIAL IVPUSH PRN (19:51)
[2019-08-12] MEDS: SENNOSIDES 8.6MG TABLET (FP) PO SCH (21:47)
[2019-08-13] MEDS ORDERED: MEROPENEM 1 GM VIAL (RESTRICTED TO ID) IVPB ONE ×3 (00:49→17:15)
[2019-08-13] MEDS ORDERED: DEXTROSE 5%-WATER 100 ML IVPB ONE ×3 (00:49→17:15)
[2019-08-13] MEDS: MEROPENEM 1 GM in DEXTROSE 5%-WATER 100 ML IVPB SCH ×3 (01:08→17:21)
[2019-08-13] MEDS: ACETAMINOPHEN 650 MG/20.3 ML ORAL SOLUTION (CUPS) GT PRN ×3 (01:11→23:18)
[2019-08-13] MEDS: LORazepam 2 MG/ML SDV VIAL IVPUSH PRN ×3 (02:02→21:28)
[2019-08-13] MEDS: TOPIRAMATE 200 MG TABLET GT SCH ×3 (05:37→23:13)
[2019-08-13] MEDS: VANCOMYCIN HCL 1,500 MG in DEXTROSE 5%-WATER - 500 ML IVPB SCH ×2 (06:35→18:22)
--- NOTE | 2019-08-13 08:04 | PN ---
Physical Exam: SUBJECTIVE: Received ativan last night which helped with tachypnea. No signs of seizure activity. Calm today remains responsive to name. OBJECTIVE: Vital Signs Period Temp Pulse Resp BP Sys/Ortiz Pulse Ox Last 24 Hr 98.5 F-103.3 F 80-121 32-46 125-154/71-93 99-100 GENERAL: NAD, awake, responds to name HEAD: MMM NECK: Tracheostomy intact without any drainage, no secretions LUNGS: Scattered rhonchi throughout. No wheezing appreciated. AC mode of vent 40% fiO2, unchanged vent settings from previous. HEART: RRR, S1, S2 without murmur ABDOMEN: Soft, nondistended, no grimmacing with palpation, no guarding. EXTREMITIES: 2+ pulses, warm, well-perfused, no edema. Laboratory Results - last 24 hr 08/12/19 08/12/19 08/12/19 09:25 09:25 09:25 WBC 12.1 H RBC 3.00 L Hgb 8.7 L Hct 27.2 L MCV 90.4 MCH 29.1 MCHC 32.1 RDW 17.6 H Plt Count 439 H MPV 8.4 D-Dimer 1787 H Sodium 144 Potassium 3.5 Chloride 113 H Carbon Dioxide 27 Anion Gap 5 L BUN 10.2 Creatinine 0.5 L Est GFR (CKD-EPI)AfAm 159.33 Est GFR (CKD-EPI)NonAf 137.47 Random Glucose 141 H Calcium 8.7 Magnesium 2.0 Total Bilirubin 0.4 AST 134 H ALT 144 H Alkaline Phosphatase 118 H Total Protein 5.8 L Albumin 2.3 L Active Medications Generic Name Dose Route Start Last Admin Trade Name Robin PRN Reason Stop Dose Admin Acetaminophen 650 mg 08/08/19 18:05 08/13/19 01:11 Tylenol Oral Solution - GT 650 mg Q6H PRN Administration FEVER Albuterol/Ipratropium 1 amp 08/09/19 09:42 08/09/19 12:10 Duoneb - NEB 1 amp Q4H PRN Administration SHORTNESS OF BREATH Amino Acids 30 ml 08/09/19 08:00 08/12/19 17:40 Prosource No Carb Liquid Pkt GT 30 ml BID@0800,1730 TIKI Administration Artificial Tears 1 drop 08/08/19 18:05 08/10/19 10:43 Artificial Tears OU 1 drop Q12H PRN Administration DRY EYES Ascorbic Acid 500 mg 08/09/19 10:00 08/12/19 11:35 Vitamin C Oral Solution - GT 500 mg DAILY TIKI Administration Cholecalciferol 800 unit 08/09/19 10:00 08/12/19 11:34 Vitamin D3 - NR 800 unit DAILY TIKI Administration Docusate Sodium 100 mg 08/09/19 09:46 Colace Liquid - PO DAILY PRN CONSTIPATION Enoxaparin Sodium 80 mg 08/08/19 18:00 08/12/19 17:40 Lovenox - SQ 80 mg BID@0600,1800 TIKI Administration Famotidine 40 mg 08/09/19 10:00 08/12/19 11:35 Pepcid NR 40 mg DAILY TIKI Administration Furosemide 40 mg 08/12/19 10:00 08/12/19 10:36 Lasix Oral Solution - PO 40 mg DAILY TIKI Administration Vancomycin HCl 1,500 mg/ 500 mls @ 250 mls/hr 08/12/19 07:00 08/13/19 06:35 Dextrose IVPB 250 mls/hr Q12H TIKI Administration Protocol Meropenem 1 gm/ Dextrose 100 mls @ 200 mls/hr 08/12/19 12:00 08/13/19 01:08 IVPB 200 mls/hr Q8H-IV TIKI Administration Lacosamide 200 mg 08/10/19 22:00 08/12/19 21:58 Vimpat Liquid - PO 200 mg BID TIKI Administration Levetiracetam 1,000 mg 08/10/19 22:00 08/12/19 21:58 Keppra Oral Solution - NGT 1,000 mg BID TIKI Administration Lorazepam 1 mg 08/12/19 17:16 08/13/19 02:02 Ativan Injection - IVPUSH 1 mg Q6H PRN Administration AGITATION Nystatin 500,000 units 08/08/19 18:05 Nystatin Oral Suspension - PO Q6HPO PRN ORAL PAIN/MOUTH SORES Pantoprazole Sodium 40 mg 08/10/19 22:00 08/12/19 21:59 Protonix Packets For Oral Suspension - NGT 40 mg BID TIKI Administration Phenobarbital 60 mg 08/10/19 22:00 08/12/19 21:57 Phenobarbital Liquid - NGT 60 mg BID TIKI Administration Polyethylene Glycol 17 gm 08/08/19 22:00 08/12/19 21:47 Miralax (For Daily Use) - GT Not Given BID TIKI Potassium Chloride 40 meq 08/08/19 22:00 08/12/19 22:00 Potassium Chloride Oral Liquid GT 40 meq BID TIKI Administration Senna 1 tab 08/09/19 22:00 08/12/19 21:47 Senna - PO Not Given HS TIKI Spironolactone 50 mg 08/10/19 22:00 08/12/19 21:59 Aldactone - GT 50 mg BID TIKI Administration Topiramate 200 mg 08/08/19 22:00 08/13/19 05:37 Topamax - GT 200 mg TID TIKI Administration Zinc Sulfate 220 mg 08/08/19 22:00 08/12/19 22:00 Orazinc - GT 220 mg BID TIKI Administration ASSESSMENT/PLAN: 38M with PMH MR and epilepsy who presented to ED initially with SOB and hypoxia requiring intubation, admitted to hospital for hypoxic respiratory failure 2/2 to covid-19. #Acute Hypoxic and Hypercapneic Respiratory Failure 2/2 covid 19 #COVID19 Pneumonia now with tracheostomy (08/07/2019), s/p Plaquenil, convalescent plasma, and Actemra #E Coli Pneumonia #Fungenmia #Bacteremia #Septic Shock #Seizure Disorder #Mental Retardation --CT scans reviewed from yesterday: No overt source of fevers; infiltrates seen on lung CT with pleural effusions b/l --Continue Meropenem per ID --Tylenol PRN for fevers alongside of ice packs if needed --Continue vent settings per pulm --Continue to wean O2; maintain saturations >92% --s/p Caspofungin (completed 14 days) for fungemia with line changes --F/u BCx from yesterday --Continue antiepileptics --Discussion with palliative and family regarding PEG tube placement; will contact Michelle (sister; POC) regarding this today --If agreeable will contact IR regarding PEG insertion --H/H stable without any significant dark stooling noted within past day DVT PPX - Lovenox on hold; pending IR recommendations can reinstate PPx dosing Dispo: Continue on M/S; PEG insertion to be planned Case discussed with Dr. Maira Palmer, DO - IM PGY-3 Visit type - Emergency Visit Emergency Visit: Yes ED Registration Date: 06/22/19 Care time: The patient presented to the Emergency Department on the above date and was hospitalized for further evaluation of their emergent condition. - New Patient This patient is new to me today: No - Critical Care Critical Care patient: No ATTENDING PHYSICIAN STATEMENT I saw and evaluated the patient. I reviewed the resident's note and discussed the case with the resident. I agree with the resident's findings and plan as documented. SUBJECTIVE: OBJECTIVE: ASSESSMENT AND PLAN:
--- NOTE | 2019-08-13 08:14 | PN ---
Progress Note, Physician History of Present Illness: PULMONARY AWAKE,FEBRILE,CONGESTED ON VENT SUPPORT AC MODE - Current Medication List Current Medications: Active Medications Acetaminophen (Tylenol Oral Solution -) 650 mg GT Q6H PRN PRN Reason: FEVER Last Admin: 08/13/19 01:11 Dose: 650 mg Documented by: Albuterol/Ipratropium (Duoneb -) 1 amp NEB Q4H PRN PRN Reason: SHORTNESS OF BREATH Last Admin: 08/09/19 12:10 Dose: 1 amp Documented by: Amino Acids (Prosource No Carb Liquid Pkt) 30 ml GT BID@0800,1730 [facility] Last Admin: 08/12/19 17:40 Dose: 30 ml Documented by: Artificial Tears (Artificial Tears) 1 drop OU Q12H PRN PRN Reason: DRY EYES Last Admin: 08/10/19 10:43 Dose: 1 drop Documented by: Ascorbic Acid (Vitamin C Oral Solution -) 500 mg GT DAILY [facility] Last Admin: 08/12/19 11:35 Dose: 500 mg Documented by: Cholecalciferol (Vitamin D3 -) 800 unit NR DAILY [facility] Last Admin: 08/12/19 11:34 Dose: 800 unit Documented by: Docusate Sodium (Colace Liquid -) 100 mg PO DAILY PRN PRN Reason: CONSTIPATION Enoxaparin Sodium (Lovenox -) 80 mg SQ BID@0600,1800 [facility] Last Admin: 08/12/19 17:40 Dose: 80 mg Documented by: Famotidine (Pepcid) 40 mg NR DAILY [facility] Last Admin: 08/12/19 11:35 Dose: 40 mg Documented by: Furosemide (Lasix Oral Solution -) 40 mg PO DAILY [facility] Last Admin: 08/12/19 10:36 Dose: 40 mg Documented by: Vancomycin HCl 1,500 mg/ (Dextrose) 500 mls @ 250 mls/hr IVPB Q12H [facility]; Protocol Last Admin: 08/13/19 06:35 Dose: 250 mls/hr Documented by: Meropenem 1 gm/ Dextrose 100 mls @ 200 mls/hr IVPB Q8H-IV [facility] Last Admin: 08/13/19 01:08 Dose: 200 mls/hr Documented by: Lacosamide (Vimpat Liquid -) 200 mg PO BID [facility] Last Admin: 08/12/19 21:58 Dose: 200 mg Documented by: Levetiracetam (Keppra Oral Solution -) 1,000 mg NGT BID [facility] Last Admin: 08/12/19 21:58 Dose: 1,000 mg Documented by: Lorazepam (Ativan Injection -) 1 mg IVPUSH Q6H PRN PRN Reason: AGITATION Last Admin: 08/13/19 02:02 Dose: 1 mg Documented by: Nystatin (Nystatin Oral Suspension -) 500,000 units PO Q6HPO PRN PRN Reason: ORAL PAIN/MOUTH SORES Pantoprazole Sodium (Protonix Packets For Oral Suspension -) 40 mg NGT BID [facility] Last Admin: 08/12/19 21:59 Dose: 40 mg Documented by: Phenobarbital (Phenobarbital Liquid -) 60 mg NGT BID [facility] Last Admin: 08/12/19 21:57 Dose: 60 mg Documented by: Polyethylene Glycol (Miralax (For Daily Use) -) 17 gm GT BID [facility] Last Admin: 08/12/19 21:47 Dose: Not Given Documented by: Potassium Chloride (Potassium Chloride Oral Liquid) 40 meq GT BID [facility] Last Admin: 08/12/19 22:00 Dose: 40 meq Documented by: Senna (Senna -) 1 tab PO HS [facility] Last Admin: 08/12/19 21:47 Dose: Not Given Documented by: Spironolactone (Aldactone -) 50 mg GT BID [facility] Last Admin: 08/12/19 21:59 Dose: 50 mg Documented by: Topiramate (Topamax -) 200 mg GT TID [facility] Last Admin: 08/13/19 05:37 Dose: 200 mg Documented by: Zinc Sulfate (Orazinc -) 220 mg GT BID [facility] Last Admin: 08/12/19 22:00 Dose: 220 mg Documented by: - Objective Vital Signs: Vital Signs Temperature 100.3 F H 08/13/19 04:17 Pulse Rate 80 08/13/19 05:25 Respiratory Rate 32 H 08/13/19 04:56 Blood Pressure 140/90 08/13/19 05:25 O2 Sat by Pulse Oximetry (%) 100 08/13/19 04:56 Constitutional: Yes: Well Nourished, Calm Eyes: Yes: WNL HENT: Yes: WNL Neck: Yes: Supple (TRACH) Cardiovascular: Yes: Regular Rate and Rhythm, S1, S2 Respiratory: Yes: Rhonchi (DIFFUSE CAROLYN RHONCHI,CONGESTION) Gastrointestinal: Yes: Normal Bowel Sounds, Soft Extremities: Yes: WNL Edema: Yes Labs: Problem List - Problems (1) COVID-19 Code(s): U07.1 - COVID POSITIVE (2) COVID-19 Code(s): U07.1 - COVID POSITIVE (3) Acute respiratory failure with hypoxia Code(s): J96.01 - ACUTE RESPIRATORY FAILURE WITH HYPOXIA (4) Seizure disorder Code(s): G40.909 - EPILEPSY, UNSP, NOT INTRACTABLE, WITHOUT STATUS EPILEPTICUS (5) Status epilepticus Code(s): G40.901 - EPILEPSY, UNSP, NOT INTRACTABLE, WITH STATUS EPILEPTICUS Assessment/Plan ASSESSMENT AND PLAN: Acute Hypoxic and Hypercapneic Respiratory Failure COVID19 Pneumonia E Coli Pneumonia Fungenmia Bacteremia Septic Shock Seizure Disorder Mental Retardation ABNORMAL LFTS - Ativan PRN - ABX per ID - antiepileptics - lasix, aldactone - monitor urine output, creatinine - low tidal volume ventilation - titrate FiO2, PEEP to keep SpO2 >90% - spontaeneous breathing trials as tolerated - enteral feeds: Should have PEG insertion - DVT/GI prophylaxis - monitor lfts - inhaled bronchodilators Dr MARTINEZ
[2019-08-13 08:31] LABS: HEMATOCRIT 28.3 % (35.4-49); HEMOGLOBIN 8.8 GM/dL (11.7-16.9); MCH 28.4 pg (25.7-33.7); MCHC 31.1 g/dl (32.0-35.9); MEAN CELL VOLUME 91.2 fl (80-96); MEAN PLT VOLUME 9.8 fl (7.5-11.1); PLATELET COUNT 376 K/MM3 (134-434); RBC 3.11 M/mm3 (4.00-5.60); RDW 17.8 % (11.9-15.9)
--- NOTE | 2019-08-13 08:39 | PN ---
Teaching Attending Note Name of Resident: Benigno Palmer ATTENDING PHYSICIAN STATEMENT I saw and evaluated the patient. I reviewed the resident's note and discussed the case with the resident. I agree with the resident's findings and plan as documented. SUBJECTIVE: Patient is less febrile hemodynamically stable OBJECTIVE: Vital Signs Temperature 100.3 F H 08/13/19 04:17 Pulse Rate 80 08/13/19 05:25 Respiratory Rate 32 H 08/13/19 04:56 Blood Pressure 140/90 08/13/19 05:25 O2 Sat by Pulse Oximetry (%) 100 08/13/19 04:56 General: Young man status post trach not in distress HEENT mucous membranes moist, no anemia, no jaundice, PERRLA, no nystagmus Neck: Status post trach Chest: bilateral basal rales. CVS: S1-S2 no murmur/gallop/rub Abdomen: Nondistended, soft, bowel sounds present. Extremities: No edema., No Calf tenderness, pulses present [employer]: Alert nonverbal Vent settin/360/40 percent/5 CBC, BMP 08/13/19 07:50 08/13/19 07:50 Stool C. difficile: Pending CT head: No significant interval change CT chest: Bilateral extensive pulmonary infiltrates with moderate pleural effusion CT abdomen: No intra-abdominal collection or abscess Active Medications Acetaminophen (Tylenol Oral Solution -) 650 mg GT Q6H PRN PRN Reason: FEVER Last Admin: 08/13/19 01:11 Dose: 650 mg Documented by: Albuterol/Ipratropium (Duoneb -) 1 amp NEB Q4H PRN PRN Reason: SHORTNESS OF BREATH Last Admin: 08/09/19 12:10 Dose: 1 amp Documented by: Amino Acids (Prosource No Carb Liquid Pkt) 30 ml GT BID@0800,1730 [facility] Last Admin: 08/13/19 09:22 Dose: 30 ml Documented by: Artificial Tears (Artificial Tears) 1 drop OU Q12H PRN PRN Reason: DRY EYES Last Admin: 08/10/19 10:43 Dose: 1 drop Documented by: Ascorbic Acid (Vitamin C Oral Solution -) 500 mg GT DAILY [facility] Last Admin: 08/13/19 09:42 Dose: 500 mg Documented by: Cholecalciferol (Vitamin D3 -) 800 unit NR DAILY [facility] Last Admin: 06/11/20 09:41 Dose: 800 unit Documented by: Docusate Sodium (Colace Liquid -) 100 mg PO DAILY PRN PRN Reason: CONSTIPATION Enoxaparin Sodium (Lovenox -) 80 mg SQ BID@0600,1800 [facility] Last Admin: 08/12/19 17:40 Dose: 80 mg Documented by: Famotidine (Pepcid) 40 mg NR DAILY [facility] Last Admin: 08/13/19 09:42 Dose: 40 mg Documented by: Furosemide (Lasix Oral Solution -) 40 mg PO DAILY [facility] Last Admin: 08/13/19 09:42 Dose: 40 mg Documented by: Vancomycin HCl 1,500 mg/ (Dextrose) 500 mls @ 250 mls/hr IVPB Q12H [facility]; Protocol Last Admin: 08/13/19 06:35 Dose: 250 mls/hr Documented by: Meropenem 1 gm/ Dextrose 100 mls @ 200 mls/hr IVPB Q8H-IV [facility] Last Admin: 08/13/19 01:08 Dose: 200 mls/hr Documented by: Lacosamide (Vimpat Liquid -) 200 mg PO BID [facility] Last Admin: 08/13/19 09:24 Dose: 200 mg Documented by: Levetiracetam (Keppra Oral Solution -) 1,000 mg NGT BID [facility] Last Admin: 08/13/19 09:24 Dose: 1,000 mg Documented by: Lorazepam (Ativan Injection -) 1 mg IVPUSH Q6H PRN PRN Reason: AGITATION Last Admin: 08/13/19 02:02 Dose: 1 mg Documented by: Nystatin (Nystatin Oral Suspension -) 500,000 units PO Q6HPO PRN PRN Reason: ORAL PAIN/MOUTH SORES Pantoprazole Sodium (Protonix Packets For Oral Suspension -) 40 mg NGT BID [facility] Last Admin: 08/13/19 09:23 Dose: 40 mg Documented by: Phenobarbital (Phenobarbital Liquid -) 60 mg NGT BID [facility] Last Admin: 08/13/19 09:32 Dose: 60 mg Documented by: Polyethylene Glycol (Miralax (For Daily Use) -) 17 gm GT BID [facility] Last Admin: 08/13/19 09:27 Dose: Not Given Documented by: Potassium Chloride (Potassium Chloride Oral Liquid) 40 meq GT BID [facility] Last Admin: 08/13/19 09:22 Dose: 40 meq Documented by: Senna (Senna -) 1 tab PO HS [facility] Last Admin: 08/12/19 21:47 Dose: Not Given Documented by: Spironolactone (Aldactone -) 50 mg GT BID [facility] Last Admin: 08/13/19 09:24 Dose: 50 mg Documented by: Topiramate (Topamax -) 200 mg GT TID [facility] Last Admin: 08/13/19 05:37 Dose: 200 mg Documented by: Zinc Sulfate (Orazinc -) 220 mg GT BID [facility] Last Admin: 08/13/19 09:28 Dose: 220 mg Documented by: ASSESSMENT AND PLAN: 39 years old male mentally challenged, seizure disorders lives at home admitted with hypoxic respiratory failure on June 22, 2019 secondary to COVID-19, multiple pulmonary infection and bacteremia treated for fungemia, MRSA, ESBL E. coli,, persistent staph epi bacteremia normal echocardiogram on vancomycin as per ID total 6 weeks of Vanco today [id number] , patient did spike fever on August 09, 2019 put on Zosyn, remained afebrile but persistent elevation of WBC. ID/pulmonary on the case Plan: Patient T-max is 100.3 and last 24 hours, less tachycardia and tachypnea, CT chest, abdomen, pelvis and head no significant interval change except persistent bilateral infiltrate and pleural effusion, so far culture done on August 09, 2019 are negative, C. difficile sample is pending Will discuss with IR for possible PEG placement Plan discussed with the resident Problem List - Problems (1) Acute respiratory failure with hypoxia Assessment/Plan: Due to COVID pneumonia status post intubation now on trach, vent dependent , vent management as per critical care. Code(s): J96.01 - ACUTE RESPIRATORY FAILURE WITH HYPOXIA (2) Bacteremia Assessment/Plan: Patient grew staph epi on multiple cultures on 6 weeks of IV vancomycin today is day 31 last culture done on August 08 shows no growth so far. Code(s): R78.81 - BACTEREMIA (3) Fever Assessment/Plan: Patient spiked fever despite vancomycin and discussed with ID recommended panculture, fraser scan including sinus, stool C. difficile we will follow-up ID recommendation meantime continue current antibiotic. Code(s): R50.9 - FEVER, UNSPECIFIED (4) Seizure disorder Assessment/Plan: Continue seizure medications Code(s): G40.909 - EPILEPSY, UNSP, NOT INTRACTABLE, WITHOUT STATUS EPILEPTICUS
[2019-08-13 08:45] LABS: WHITE BLOOD COUNT 13.6 K/mm3 (4.0-10.0)
[2019-08-13 08:46] LABS: ALBUMIN 2.5 g/dl (3.4-5.0); BILIRUBIN,TOTAL 0.4 mg/dL (0.2-1); BLOOD UREA NITROGEN 12.8 mg/dL (7-18); CALCIUM 8.9 mg/dL (8.5-10.1); CREATININE 0.6 mg/dL (0.55-1.3); MAGNESIUM 2.4 mg/dL (1.8-2.4); TOT PROT 6.4 g/dl (6.4-8.2)
[2019-08-13] MEDS ORDERED: PT OWN MED DRAWER 7, Y5N ONE ×4 (09:03→21:10)
[2019-08-13] MEDS: POTASSIUM CHLORIDE ORAL LIQUID 20 MEQ/15 ML GT SCH ×2 (09:22→23:17)
[2019-08-13] MEDS: AMINO ACIDS/PROTEIN HYDROLYS 30 ML LIQUID.PKT GT SCH ×2 (09:22→17:20)
[2019-08-13] MEDS: PANTOPRAZOLE SOD 40 MG SUSPENSION PACKET NGT SCH ×2 (09:23→23:11)
[2019-08-13] MEDS: levETIRAcetam 500 MG/5 ML ORAL SOLUTION (UNIT-DOSE CUPS) NGT SCH ×2 (09:24→23:15)
[2019-08-13] MEDS: SPIRONOLACTONE 25 MG TABLET GT SCH ×2 (09:24→23:10)
[2019-08-13] MEDS: Lacosamide 50 MG/5 ML ORAL SOLUTION UNIT CUPS PO SCH ×2 (09:24→23:12)
[2019-08-13] MEDS: POLYETHYLENE GLYCOL 3350 119 GM BTL GT SCH ×2 (09:27→23:16)
[2019-08-13] MEDS: ZINC SULFATE 220 MG CAPSULE (FP) GT SCH ×2 (09:28→23:09)
[2019-08-13] MEDS: PHENobarbital 20 MG/5 ML UNIT-DOSE CUP NGT SCH ×2 (09:32→23:15)
[2019-08-13] MEDS: CHOLECALCIFEROL (VIT D3) 400 UNIT (10 MCG) TABLET NR SCH (09:41)
[2019-08-13] MEDS: ASCORBIC ACID 500 MG/5 ML UNIT DOSE CUP GT SCH (09:42)
[2019-08-13] MEDS: FAMOTIDINE 40 MG/5 ML ORAL SUSPENSION NR SCH (09:42)
[2019-08-13] MEDS: FUROSEMIDE 40 MG/5 ML UNIT-DOSE CUP PO SCH (09:42)
--- NOTE | 2019-08-13 10:51 | PN ---
Progress Note, CHANGE RELEASE MANAGER - Note Progress Note: CT chest-extensive bilateral infiltrates CT head noted Selected Entries 08/12/19 08/12/19 08/12/19 02:00 06:00 07:45 Supper Temperature 98.5 F 98.4 F 102.5 F H Blood Pressure 137/83 141/87 137/75 08/12/19 08/12/19 08/12/19 10:05 12:30 14:20 Supper Temperature 99 F 103.3 F H 98.8 F Blood Pressure 129/80 147/78 125/77 08/12/19 08/12/19 08/12/19 16:42 17:55 20:19 Supper NPO Temperature 101.1 F H 98.5 F Blood Pressure 142/86 132/71 08/12/19 08/13/19 08/13/19 22:52 01:00 04:17 Supper NPO Temperature 100.2 F H 100.3 F H Blood Pressure 154/84 144/93 08/13/19 05:25 Supper Temperature Blood Pressure 140/90 Laboratory Tests 08/12/19 08/13/19 09:25 07:50 WBC 12.1 H 13.6 H Appreciate f/u Palliative care RN regarding pt/family wishes Prognosis for PO tolerance at this time and for the short term is poor with high aspiration risk, due to medical status Continue strict NPO, Mouth care, HOB elevation
--- NOTE | 2019-08-13 14:10 | PN ---
Progress Note (short form) - Note Progress Note: remains intubated s/p trach ffevers trending down on vanco/meropenem no trach secretions per RM ct scan head/c/a//p sphenoid sinusitis bilateral air space disease with small pleural effusions cdiff negative Vital Signs Period Temp Pulse Resp BP Sys/Ortiz Pulse Ox Last 24 Hr 98.3 F-101.1 F 80-119 32-46 125-154/71-93 100-100 trach to vent cor rrr lungs decreased bs at bases abd soft,nt ext no edema CBC, BMP 08/13/19 07:50 08/13/19 07:50 Microbiology 08/12/19 13:10 Blood - Peripheral Venous Blood Culture - Preliminary NO GROWTH OBTAINED AFTER 24 HOURS, INCUBATION TO CONTINUE FOR 4 DAYS. 08/12/19 13:00 Blood - Peripheral Venous Blood Culture - Preliminary NO GROWTH OBTAINED AFTER 24 HOURS, INCUBATION TO CONTINUE FOR 4 DAYS. 08/12/19 14:45 Stool Clostridioides difficile Antigen - Final 08/12/19 14:45 Stool Clostridioides difficile Toxin Assay - Final 08/09/19 11:45 Blood - Peripheral Venous Blood Culture - Preliminary NO GROWTH OBTAINED AFTER 96 HOURS, INCUBATION TO CONTINUE FOR 1 DAYS. 08/09/19 11:52 Blood - Peripheral Venous Blood Culture - Preliminary NO GROWTH OBTAINED AFTER 96 HOURS, INCUBATION TO CONTINUE FOR 1 DAYS. 08/09/19 16:30 Urine - Urine Caceres Urine Culture - Final NO GROWTH OBTAINED 08/04/19 19:40 Blood - Peripheral Venous Blood Culture - Final Staphylococcus Capitis 08/04/19 19:50 Blood - Peripheral Venous Blood Culture - Final NO GROWTH AFTER 5 DAYS INCUBATION 08/05/19 13:45 Urine - Urine Caceres Urine Culture - Final NO GROWTH OBTAINED 07/31/19 16:30 Blood - Peripheral Venous Blood Culture - Final NO GROWTH AFTER 5 DAYS INCUBATION 07/31/19 17:25 Blood - Peripheral Venous Blood Culture - Final Staphylococcus Capitis 08/01/19 11:55 Sputum - Endotrachea Suction/Ventilator Gram Stain - Final 08/01/19 11:55 Sputum - Endotrachea Suction/Ventilator Sputum Culture - Final Mr S Aureus 07/29/19 11:46 Blood - Peripheral Venous Blood Culture - Final NO GROWTH AFTER 5 DAYS INCUBATION 07/29/19 11:18 Blood - Central Line Blood Culture - Final NO GROWTH AFTER 5 DAYS INCUBATION 07/29/19 11:18 Urine - Urine Caceres Urine Culture - Final NO GROWTH OBTAINED 07/12/19 11:04 Blood - Peripheral Venous Yeast/Fungus Identification - Final Janis Lusitaniae 07/18/19 21:10 Blood - Peripheral Venous Blood Culture - Final NO GROWTH AFTER 5 DAYS INCUBATION 07/18/19 18:30 Blood - Peripheral Venous Blood Culture - Final NO GROWTH AFTER 5 DAYS INCUBATION 07/15/19 12:25 Blood - Peripheral Venous Blood Culture - Final NO GROWTH AFTER 5 DAYS INCUBATION 07/16/19 15:15 Blood - Peripheral Venous Blood Culture - Final Staphylococcus Epidermidis 07/14/19 11:30 Blood - Peripheral Venous Blood Culture - Final NO GROWTH AFTER 5 DAYS INCUBATION 07/16/19 15:05 Blood - Peripheral Venous Blood Culture - Final Staphylococcus Epidermidis 07/16/19 12:30 Sputum - Endotrachea Suction/Ventilator Gram Stain - Final 07/16/19 12:30 Sputum - Endotrachea Suction/Ventilator Sputum Culture - Final Mr S Aureus Escherichia Coli 07/12/19 10:55 Blood - Peripheral Venous Blood Culture - Final NO GROWTH AFTER 5 DAYS INCUBATION 07/16/19 12:30 Urine - Urine - Catheterized Urine Culture - Final NO GROWTH OBTAINED 07/12/19 06:00 Sputum - Endotrachea Suction/Ventilator Gram Stain - Final 07/12/19 06:00 Sputum - Endotrachea Suction/Ventilator Sputum Culture - Final 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 Mr S Aureus 07/12/19 11:04 Blood - Peripheral Venous Blood Culture - Final 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 07/01/19 18:15 Blood - Peripheral Venous Blood Culture - Final NO GROWTH AFTER 5 DAYS INCUBATION 06/29/19 12:30 Blood - Peripheral Venous Blood Culture - Final Staphylococcus Epidermidis 06/30/19 17:15 Sputum - Endotrachea Suction/Ventilator Gram Stain - Final 06/30/19 17:15 Sputum - Endotrachea Suction/Ventilator Sputum Culture - Final Escherichia Coli Esbl Order Detailer 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 06/28/19 09:00 Blood - Peripheral Venous Blood Culture - Final Staphylococcus Epidermidis 06/28/19 12:50 Sputum - Endotrachea Suction/Ventilator Gram Stain - Final 06/28/19 12:50 Sputum - Endotrachea Suction/Ventilator Sputum Culture - Final 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 Staphylococcus Aureus 06/25/19 13:40 Blood - Peripheral Venous Blood Culture - Final NO GROWTH AFTER 5 DAYS INCUBATION 06/25/19 13:20 Blood - Peripheral Venous Blood Culture - Final NO GROWTH AFTER 5 DAYS INCUBATION 06/28/19 12:51 Urine - Urine Caceres Urine Culture - Final NO GROWTH OBTAINED 06/22/19 13:00 Blood - Peripheral Venous Blood Culture - Final Staphylococcus Warneri 06/22/19 13:00 Blood - Peripheral Venous Blood Culture - Final Staphylococcus Epidermidis 06/24/19 00:01 Urine - Urine Caceres Urine Culture - Final NO GROWTH OBTAINED 06/24/19 00:01 Urine For Antigen Detection Legionella Antigen - Final 06/24/19 00:01 Urine For Antigen Detection Streptococcus pneumoniae Antigen (M - Final covid pcr negative (repeat) quantiferon negative imp/reccd s/p trach sinusitis intermittent fevers- reculture now, elevated lfts- image abd/pelvis, sinus ct , nurse reports loose stools, stool cdiff ARDS/pneumonia- sputum MRSA bacteremia- recurrent staph epi bacteremia- ?endocarditis- echo unrevealing- continue vancomycin, day #29 -plan 6 weeks fungemia- janis lusitanae- has completed 14 days cancidas- repeat cultures negative covid 19 positive -repeat pcr negative s/p convalescent plasma s/p tocilizumab MRSA isolation for positive sputum culture- esbl isolation for prior sputum ecoli esbl add meropenem trend lfts consider EEG Problem List - Problems (1) Suspected COVID-19 virus infection Code(s): R68.89 - OTHER GENERAL SYMPTOMS AND SIGNS (2) Acute respiratory failure with hypoxia Code(s): J96.01 - ACUTE RESPIRATORY FAILURE WITH HYPOXIA (3) Bacteremia Code(s): R78.81 - BACTEREMIA
--- NOTE | 2019-08-13 16:57 | PN ---
Progress Note, Physician History of Present Illness: Pt seen and examined at bedside. He is awake and appears comfortable. - Current Medication List Current Medications: Active Medications Acetaminophen (Tylenol Oral Solution -) 650 mg GT Q6H PRN PRN Reason: FEVER Last Admin: 08/13/19 01:11 Dose: 650 mg Documented by: Albuterol/Ipratropium (Duoneb -) 1 amp NEB Q4H PRN PRN Reason: SHORTNESS OF BREATH Last Admin: 08/09/19 12:10 Dose: 1 amp Documented by: Amino Acids (Prosource No Carb Liquid Pkt) 30 ml GT BID@0800,1730 [facility] Last Admin: 08/13/19 09:22 Dose: 30 ml Documented by: Artificial Tears (Artificial Tears) 1 drop OU Q12H PRN PRN Reason: DRY EYES Last Admin: 08/10/19 10:43 Dose: 1 drop Documented by: Ascorbic Acid (Vitamin C Oral Solution -) 500 mg GT DAILY [facility] Last Admin: 08/13/19 09:42 Dose: 500 mg Documented by: Cholecalciferol (Vitamin D3 -) 800 unit NR DAILY [facility] Last Admin: 08/13/19 09:41 Dose: 800 unit Documented by: Docusate Sodium (Colace Liquid -) 100 mg PO DAILY PRN PRN Reason: CONSTIPATION Enoxaparin Sodium (Lovenox -) 80 mg SQ BID@0600,1800 [facility] Last Admin: 08/12/19 17:40 Dose: 80 mg Documented by: Famotidine (Pepcid) 40 mg NR DAILY [facility] Last Admin: 08/13/19 09:42 Dose: 40 mg Documented by: Furosemide (Lasix Oral Solution -) 40 mg PO DAILY [facility] Last Admin: 08/13/19 09:42 Dose: 40 mg Documented by: Vancomycin HCl 1,500 mg/ (Dextrose) 500 mls @ 250 mls/hr IVPB Q12H TIKI; Protocol Last Admin: 08/13/19 06:35 Dose: 250 mls/hr Documented by: Meropenem 1 gm/ Dextrose 100 mls @ 200 mls/hr IVPB Q8H-IV TIIK Last Admin: 08/13/19 12:12 Dose: 200 mls/hr Documented by: Lacosamide (Vimpat Liquid -) 200 mg PO BID [facility] Last Admin: 06/11/20 09:24 Dose: 200 mg Documented by: Levetiracetam (Keppra Oral Solution -) 1,000 mg NGT BID [facility] Last Admin: 08/13/19 09:24 Dose: 1,000 mg Documented by: Lorazepam (Ativan Injection -) 1 mg IVPUSH Q6H PRN PRN Reason: AGITATION Last Admin: 08/13/19 14:43 Dose: 1 mg Documented by: Nystatin (Nystatin Oral Suspension -) 500,000 units PO Q6HPO PRN PRN Reason: ORAL PAIN/MOUTH SORES Pantoprazole Sodium (Protonix Packets For Oral Suspension -) 40 mg NGT BID [facility] Last Admin: 08/13/19 09:23 Dose: 40 mg Documented by: Phenobarbital (Phenobarbital Liquid -) 60 mg NGT BID [facility] Last Admin: 08/13/19 09:32 Dose: 60 mg Documented by: Polyethylene Glycol (Miralax (For Daily Use) -) 17 gm GT BID [facility] Last Admin: 08/13/19 09:27 Dose: Not Given Documented by: Potassium Chloride (Potassium Chloride Oral Liquid) 40 meq GT BID [facility] Last Admin: 08/13/19 09:22 Dose: 40 meq Documented by: Senna (Senna -) 1 tab PO HS [facility] Last Admin: 08/12/19 21:47 Dose: Not Given Documented by: Spironolactone (Aldactone -) 50 mg GT BID [facility] Last Admin: 08/13/19 09:24 Dose: 50 mg Documented by: Topiramate (Topamax -) 200 mg GT TID [facility] Last Admin: 08/13/19 14:09 Dose: 200 mg Documented by: Zinc Sulfate (Orazinc -) 220 mg GT BID [facility] Last Admin: 08/13/19 09:28 Dose: 220 mg Documented by: - Objective Vital Signs: Vital Signs Temperature 100.9 F H 08/13/19 14:00 Pulse Rate 122 H 08/13/19 14:00 Respiratory Rate 38 H 08/13/19 14:00 Blood Pressure 122/85 08/13/19 14:00 O2 Sat by Pulse Oximetry (%) 100 08/13/19 12:20 Constitutional: Yes: Calm Eyes: Yes: Conjunctiva Clear HENT: Yes: Atraumatic Neck: Yes: Supple Cardiovascular: Yes: S1, S2 Respiratory: Yes: Mechanically Ventilated Gastrointestinal: Yes: Soft Musculoskeletal: Yes: WNL Edema: Yes Edema: LLE: Trace, RLE: Trace Neurological: Yes: Other (awake) Labs: CBC, BMP 08/13/19 07:50 08/13/19 07:50 INR, PTT INR 1.01 (0.83-1.09) 07/28/19 05:00 Problem List - Problems (1) Hypernatremia Code(s): E87.0 - HYPEROSMOLALITY AND HYPERNATREMIA (2) Hypokalemia Code(s): E87.6 - HYPOKALEMIA (3) Acute respiratory failure with hypoxia Code(s): J96.01 - ACUTE RESPIRATORY FAILURE WITH HYPOXIA (4) Bacteremia Code(s): R78.81 - BACTEREMIA Assessment/Plan Current Medications Generic Name Dose Route Start Last Admin Trade Name Freq PRN Reason Stop Dose Admin Acetaminophen 650 mg 08/08/19 18:05 08/13/19 01:11 Tylenol Oral Solution - GT 650 mg Q6H PRN Administration FEVER Albuterol/Ipratropium 1 amp 08/09/19 09:42 08/09/19 12:10 Duoneb - NEB 1 amp Q4H PRN Administration SHORTNESS OF BREATH Amino Acids 30 ml 08/09/19 08:00 08/13/19 09:22 Prosource No Carb Liquid Pkt GT 30 ml BID@0800,1730 TIKI Administration Artificial Tears 1 drop 08/08/19 18:05 08/10/19 10:43 Artificial Tears OU 1 drop Q12H PRN Administration DRY EYES Ascorbic Acid 500 mg 08/09/19 10:00 08/13/19 09:42 Vitamin C Oral Solution - GT 500 mg DAILY TIKI Administration Cholecalciferol 800 unit 08/09/19 10:00 08/13/19 09:41 Vitamin D3 - NR 800 unit DAILY TIKI Administration Docusate Sodium 100 mg 08/09/19 09:46 Colace Liquid - PO DAILY PRN CONSTIPATION Enoxaparin Sodium 80 mg 08/08/19 18:00 08/12/19 17:40 Lovenox - SQ 80 mg BID@0600,1800 TIKI Administration Famotidine 40 mg 08/09/19 10:00 08/13/19 09:42 Pepcid NR 40 mg DAILY TIKI Administration Furosemide 40 mg 08/12/19 10:00 08/13/19 09:42 Lasix Oral Solution - PO 40 mg DAILY TIKI Administration Vancomycin HCl 1,500 mg/ 500 mls @ 250 mls/hr 08/12/19 07:00 08/13/19 06:35 Dextrose IVPB 250 mls/hr Q12H TIKI Administration Protocol Meropenem 1 gm/ Dextrose 100 mls @ 200 mls/hr 08/12/19 12:00 08/13/19 12:12 IVPB 200 mls/hr Q8H-IV TIKI Administration Lacosamide 200 mg 08/10/19 22:00 08/13/19 09:24 Vimpat Liquid - PO 200 mg BID TIKI Administration Levetiracetam 1,000 mg 08/10/19 22:00 08/13/19 09:24 Keppra Oral Solution - NGT 1,000 mg BID TIKI Administration Lorazepam 1 mg 08/12/19 17:16 08/13/19 14:43 Ativan Injection - IVPUSH 1 mg Q6H PRN Administration AGITATION Nystatin 500,000 units 08/08/19 18:05 Nystatin Oral Suspension - PO Q6HPO PRN ORAL PAIN/MOUTH SORES Pantoprazole Sodium 40 mg 08/10/19 22:00 08/13/19 09:23 Protonix Packets For Oral Suspension - NGT 40 mg BID TIKI Administration Phenobarbital 60 mg 08/10/19 22:00 08/13/19 09:32 Phenobarbital Liquid - NGT 60 mg BID TIKI Administration Polyethylene Glycol 17 gm 08/08/19 22:00 08/13/19 09:27 Miralax (For Daily Use) - GT Not Given BID TIKI Potassium Chloride 40 meq 08/08/19 22:00 08/13/19 09:22 Potassium Chloride Oral Liquid GT 40 meq BID TIKI Administration Senna 1 tab 08/09/19 22:00 08/12/19 21:47 Senna - PO Not Given HS TIKI Spironolactone 50 mg 08/10/19 22:00 08/13/19 09:24 Aldactone - GT 50 mg BID TIKI Administration Topiramate 200 mg 08/08/19 22:00 08/13/19 14:09 Topamax - GT 200 mg TID TIKI Administration Zinc Sulfate 220 mg 08/08/19 22:00 06/11/20 09:28 Orazinc - GT 220 mg BID TIKI Administration Impression 1. hypokalemia 2. hypernatremia 3. resp failure 4. fungemia 5. covid 19 infection 6. ards 7. developemental delay 8. epilepsy 9. bactermia 10. resp acidosis with compensatory met alk Plan - potassium stable - cont current meds - repeat labs in am - vent support - weaning per pulmonary - cont feeds
[2019-08-13] MEDS ORDERED: LORazepam 2 MG/ML SDV VIAL IVPUSH ONE (17:49)
[2019-08-13] MEDS: SENNOSIDES 8.6MG TABLET (FP) PO SCH (23:10)
[2019-08-14] MEDS ORDERED: MEROPENEM 1 GM VIAL (RESTRICTED TO ID) IVPB ONE ×3 (02:17→16:45)
[2019-08-14] MEDS ORDERED: DEXTROSE 5%-WATER 100 ML IVPB ONE ×3 (02:17→16:45)
[2019-08-14] MEDS: MEROPENEM 1 GM in DEXTROSE 5%-WATER 100 ML IVPB SCH ×3 (02:25→17:00)
[2019-08-14] MEDS: TOPIRAMATE 200 MG TABLET GT SCH ×2 (05:16→13:03)
[2019-08-14] MEDS: VANCOMYCIN HCL 1,500 MG in DEXTROSE 5%-WATER - 500 ML IVPB SCH ×2 (06:25→18:24)
--- NOTE | 2019-08-14 07:31 | PN ---
Teaching Attending Note Name of Resident: Benigno Palmer ATTENDING PHYSICIAN STATEMENT I saw and evaluated the patient. I reviewed the resident's note and discussed the case with the resident. I agree with the resident's findings and plan as documented. SUBJECTIVE: OBJECTIVE: Vital Signs Temperature 101.0 F H 08/14/19 05:00 Pulse Rate 117 H 08/14/19 05:00 Respiratory Rate 38 H 08/14/19 05:00 Blood Pressure 145/84 08/14/19 05:00 O2 Sat by Pulse Oximetry (%) 100 08/14/19 00:00 General: Young man status post trach not in distress HEENT mucous membranes moist, no anemia, no jaundice, PERRLA, no nystagmus Neck: Status post trach Chest: bilateral basal rales. CVS: S1-S2 no murmur/gallop/rub Abdomen: Nondistended, soft, bowel sounds present. 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 difficile: Negative CT head: No significant interval change CT chest: Bilateral extensive pulmonary infiltrates with moderate pleural effusion CT abdomen: No intra-abdominal collection or abscess Home Medication List Medication Instructions Recorded Confirmed Type levETIRAcetam [Keppra -] 1,000 mg PO BID 06/22/19 06/22/19 History Active Medications Generic Name Dose Route Start Last Admin Trade Name Freq PRN Reason Stop Dose Admin Acetaminophen 650 mg 08/08/19 18:05 08/13/19 23:18 Tylenol Oral Solution - GT 650 mg Q6H PRN Administration FEVER Albuterol/Ipratropium 1 amp 08/09/19 09:42 08/09/19 12:10 Duoneb - NEB 1 amp Q4H PRN Administration SHORTNESS OF BREATH Amino Acids 30 ml 08/09/19 08:00 08/14/19 09:33 Prosource No Carb Liquid Pkt GT 30 ml BID@0800,1730 TIKI Administration Artificial Tears 1 drop 08/08/19 18:05 08/10/19 10:43 Artificial Tears OU 1 drop Q12H PRN Administration DRY EYES Ascorbic Acid 500 mg 08/09/19 10:00 08/14/19 10:32 Vitamin C Oral Solution - GT 500 mg DAILY TIKI Administration Cholecalciferol 800 unit 08/09/19 10:00 08/14/19 10:32 Vitamin D3 - NR 800 unit DAILY TIKI Administration Docusate Sodium 100 mg 08/09/19 09:46 Colace Liquid - PO DAILY PRN CONSTIPATION Furosemide 40 mg 08/12/19 10:00 08/14/19 10:32 Lasix Oral Solution - PO 40 mg DAILY TIKI Administration Vancomycin HCl 1,500 mg/ 500 mls @ 250 mls/hr 08/12/19 07:00 08/14/19 06:25 Dextrose IVPB 250 mls/hr Q12H TIKI Administration Protocol Meropenem 1 gm/ Dextrose 100 mls @ 200 mls/hr 08/12/19 12:00 08/14/19 09:33 IVPB 200 mls/hr Q8H-IV TIKI Administration Lacosamide 200 mg 08/10/19 22:00 08/14/19 09:36 Vimpat Liquid - PO 200 mg BID TIKI Administration Levetiracetam 1,000 mg 08/10/19 22:00 08/14/19 09:34 Keppra Oral Solution - NGT 1,000 mg BID TIKI Administration Lorazepam 1 mg 08/12/19 17:16 08/13/19 21:28 Ativan Injection - IVPUSH 1 mg Q6H PRN Administration AGITATION Nystatin 500,000 units 08/08/19 18:05 Nystatin Oral Suspension - PO Q6HPO PRN ORAL PAIN/MOUTH SORES Phenobarbital 60 mg 08/10/19 22:00 08/14/19 09:35 Phenobarbital Liquid - NGT 60 mg BID TIKI Administration Potassium Chloride 40 meq 08/08/19 22:00 08/14/19 09:35 Potassium Chloride Oral Liquid GT 40 meq BID TIKI Administration Spironolactone 50 mg 08/10/19 22:00 08/14/19 09:32 Aldactone - GT 50 mg BID TIKI Administration Topiramate 200 mg 08/08/19 22:00 08/14/19 05:16 Topamax - GT 200 mg TID TIKI Administration Zinc Sulfate 220 mg 08/08/19 22:00 08/14/19 09:34 Orazinc - GT 220 mg BID TIKI Administration ASSESSMENT AND PLAN: 39 years old male mentally challenged, seizure disorders lives at home admitted with hypoxic respiratory failure on June 22, 2019 secondary to COVID-19, multiple pulmonary infection and bacteremia treated for fungemia, MRSA, ESBL E. coli,, persistent staph epi bacteremia normal echocardiogram on vancomycin as per ID total 6 weeks of Vanco today [id number] , patient did spike fever on August 09, 2019 put on Zosyn, remained afebrile but persistent elevation of WBC. ID/pulmonary on the case Plan: Patient T-max is 100.3 and last 24 hours, less tachycardia and tachypnea, CT chest, abdomen, pelvis and head no significant interval change except persistent bilateral infiltrate and pleural effusion, so far culture done on August 09, 2019 are negative, C. difficile sample is pending Patient has diarrhea C. difficile negative will hold laxative and observe Patient was on full dose anticoagulation for past 8 weeks no DVT or PE will DC full dose anticoagulation put on DVT for prophylaxis, will put on PPI Will discuss with IR for possible PEG placement once patient is afebrile. Plan discussed with the resident Problem List - Problems (1) Acute respiratory failure with hypoxia Assessment/Plan: Due to COVID pneumonia status post intubation now on trach, vent dependent , vent management as per critical care. Code(s): J96.01 - ACUTE RESPIRATORY FAILURE WITH HYPOXIA (2) Bacteremia Assessment/Plan: Patient grew staph epi on multiple cultures on 6 weeks of IV vancomycin today is day 31 last culture done on August 08 shows no growth so far. Code(s): R78.81 - BACTEREMIA (3) Fever Assessment/Plan: Patient spiked fever despite vancomycin and discussed with ID recommended panculture, fraser scan including sinus, stool C. difficile negative we will follow-up ID recommendation meantime continue current antibiotic. Code(s): R50.9 - FEVER, UNSPECIFIED (4) Seizure disorder Assessment/Plan: Continue seizure medications Code(s): G40.909 - EPILEPSY, UNSP, NOT INTRACTABLE, WITHOUT STATUS EPILEPTICUS (5) Diarrhea Assessment/Plan: Patient has diarrhea C. difficile negative will hold laxative and observe Problems reviewed: Yes Code(s): R19.7 - DIARRHEA, UNSPECIFIED (6) DVT prophylaxis Assessment/Plan: Patient was on therapeutic dose of anticoagulation, DVT and CT scan negative for PE, patient took total 8 weeks of full dose anticoagulation, currently on hold due to questionable GI bleed will switch to p.o. Prevacid and Protonix and resume DVT prophylaxis Problems reviewed: Yes Code(s): Z29.9 - ENCOUNTER FOR PROPHYLACTIC MEASURES, UNSPECIFIED
--- NOTE | 2019-08-14 07:35 | PN ---
Physical Exam: SUBJECTIVE: Yesterday afternoon paged due to question about twitching. Upon further examination patient was NOT having a seizure and exhibited anxious movements alongside of being febrile to 102. Patient medicated with good effect. Otherwise calm today; remains tachypneic. Vent setting unchanged OBJECTIVE: Vital Signs Period Temp Pulse Resp BP Sys/Ortiz Pulse Ox Last 24 Hr 98.2 F-102.3 F 105-130 28-39 122-146/74-93 100-100 GENERAL: NAD, awake, responds to name HEAD: MMM, R hematoma decreasing, ecchyomotic area around R eye developing as hematoma drains NECK: Tracheostomy intact without any drainage, no secretions LUNGS: Scattered rhonchi throughout. No wheezing appreciated. AC mode of vent 40% fiO2, unchanged vent settings from previous. HEART: RRR, S1, S2 without murmur ABDOMEN: Soft, nondistended, no grimmacing with palpation, no guarding. EXTREMITIES: 2+ pulses, warm, well-perfused, no edema. Laboratory Results - last 24 hr 08/13/19 08/13/19 07:50 07:50 WBC 13.6 H RBC 3.11 L Hgb 8.8 L Hct 28.3 L MCV 91.2 MCH 28.4 MCHC 31.1 L RDW 17.8 H Plt Count 376 MPV 9.8 D Sodium 144 Potassium 4.0 Chloride 114 H Carbon Dioxide 26 Anion Gap 4 L BUN 12.8 Creatinine 0.6 Est GFR (CKD-EPI)AfAm 147.82 Est GFR (CKD-EPI)NonAf 127.55 Random Glucose 101 Calcium 8.9 Magnesium 2.4 Total Bilirubin 0.4 AST 119 H ALT 188 H Alkaline Phosphatase 125 H Total Protein 6.4 Albumin 2.5 L Active Medications Generic Name Dose Route Start Last Admin Trade Name Freq PRN Reason Stop Dose Admin Acetaminophen 650 mg 08/08/19 18:05 08/13/19 23:18 Tylenol Oral Solution - GT 650 mg Q6H PRN Administration FEVER Albuterol/Ipratropium 1 amp 08/09/19 09:42 08/09/19 12:10 Duoneb - NEB 1 amp Q4H PRN Administration SHORTNESS OF BREATH Amino Acids 30 ml 08/09/19 08:00 08/13/19 17:20 Prosource No Carb Liquid Pkt GT 30 ml BID@0800,1730 TIKI Administration Artificial Tears 1 drop 08/08/19 18:05 08/10/19 10:43 Artificial Tears OU 1 drop Q12H PRN Administration DRY EYES Ascorbic Acid 500 mg 08/09/19 10:00 08/13/19 09:42 Vitamin C Oral Solution - GT 500 mg DAILY TIKI Administration Cholecalciferol 800 unit 08/09/19 10:00 08/13/19 09:41 Vitamin D3 - NR 800 unit DAILY TIKI Administration Docusate Sodium 100 mg 08/09/19 09:46 Colace Liquid - PO DAILY PRN CONSTIPATION Enoxaparin Sodium 80 mg 08/08/19 18:00 08/12/19 17:40 Lovenox - SQ 80 mg BID@0600,1800 TIKI Administration Famotidine 40 mg 08/09/19 10:00 08/13/19 09:42 Pepcid NR 40 mg DAILY TIKI Administration Furosemide 40 mg 08/12/19 10:00 08/13/19 09:42 Lasix Oral Solution - PO 40 mg DAILY TIKI Administration Vancomycin HCl 1,500 mg/ 500 mls @ 250 mls/hr 08/12/19 07:00 08/14/19 06:25 Dextrose IVPB 250 mls/hr Q12H TIKI Administration Protocol Meropenem 1 gm/ Dextrose 100 mls @ 200 mls/hr 08/12/19 12:00 08/14/19 02:25 IVPB 200 mls/hr Q8H-IV TIKI Administration Lacosamide 200 mg 08/10/19 22:00 08/13/19 23:12 Vimpat Liquid - PO 200 mg BID TIKI Administration Levetiracetam 1,000 mg 08/10/19 22:00 08/13/19 23:15 Keppra Oral Solution - NGT 1,000 mg BID TIKI Administration Lorazepam 1 mg 08/12/19 17:16 08/13/19 21:28 Ativan Injection - IVPUSH 1 mg Q6H PRN Administration AGITATION Nystatin 500,000 units 08/08/19 18:05 Nystatin Oral Suspension - PO Q6HPO PRN ORAL PAIN/MOUTH SORES Pantoprazole Sodium 40 mg 08/10/19 22:00 08/13/19 23:11 Protonix Packets For Oral Suspension - NGT 40 mg BID TIKI Administration Phenobarbital 60 mg 08/10/19 22:00 08/13/19 23:15 Phenobarbital Liquid - NGT 60 mg BID TIKI Administration Polyethylene Glycol 17 gm 08/08/19 22:00 08/13/19 23:16 Miralax (For Daily Use) - GT Not Given BID TIKI Potassium Chloride 40 meq 08/08/19 22:00 08/13/19 23:17 Potassium Chloride Oral Liquid GT 40 meq BID TIKI Administration Senna 1 tab 08/09/19 22:00 08/13/19 23:10 Senna - PO Not Given HS TIKI Spironolactone 50 mg 08/10/19 22:00 08/13/19 23:10 Aldactone - GT 50 mg BID TIKI Administration Topiramate 200 mg 08/08/19 22:00 08/14/19 05:16 Topamax - GT 200 mg TID TIKI Administration Zinc Sulfate 220 mg 08/08/19 22:00 08/13/19 23:09 Orazinc - GT 220 mg BID TIKI Administration ASSESSMENT/PLAN: 38M with PMH MR and epilepsy who presented to ED initially with SOB and hypoxia requiring intubation, admitted to hospital for hypoxic respiratory failure 2/2 to covid-19. #Acute Hypoxic and Hypercapneic Respiratory Failure 2/2 covid 19 #COVID19 Pneumonia now with tracheostomy (08/07/2019), s/p Plaquenil, convalescent plasma, and Actemra #E Coli Pneumonia #Fungenmia #Bacteremia #Septic Shock #Seizure Disorder #Mental Retardation --Remains febrile without clear source --Continue Meropenem per ID --Tylenol PRN for fevers alongside of ice packs if needed --Continue vent settings per pulm --Continue to wean O2; maintain saturations >92% --s/p Caspofungin (completed 14 days) for fungemia with line changes --Blood Cx negative from 08/11; C. Diff negative --Continue antiepileptics --Unable to contact Dee despite calling phone number; messages left. Will need to discuss with palliative contact number so discussion with family can continue --H/H stable without any significant dark stooling noted within past day Dispo: Continue on M/S; PEG insertion to be planned GOC: Patient does not qualify with current insurance for LTAC care given emergency medicare/medicaid. Discussed with SW and patient would have to be weaned from ventilator before discharge due to limited options via insurance. Case discussed with Dr. Maira Palmer, DO - IM PGY-3 Visit type - Emergency Visit Emergency Visit: Yes ED Registration Date: 06/22/19 Care time: The patient presented to the Emergency Department on the above date and was hospitalized for further evaluation of their emergent condition. - New Patient This patient is new to me today: No - Critical Care Critical Care patient: No ATTENDING PHYSICIAN STATEMENT I saw and evaluated the patient. I reviewed the resident's note and discussed the case with the resident. I agree with the resident's findings and plan as documented. SUBJECTIVE: OBJECTIVE: ASSESSMENT AND PLAN:
[2019-08-14 08:34] LABS: BASO % 0.7 % (0-2.0); EOS % 5.2 % (0-4.5); HEMOGLOBIN 9.1 GM/dL (11.7-16.9); LYMPH % 16.8 % (8-40); MCH 28.1 pg (25.7-33.7); MCHC 31.3 g/dl (32.0-35.9); MEAN CELL VOLUME 89.8 fl (80-96); MEAN PLT VOLUME 8.6 fl (7.5-11.1); MONO % 6.8 % (3.8-10.2); NEUT % 70.5 % (42.8-82.8); PLATELET COUNT 399 K/MM3 (134-434); RBC 3.23 M/mm3 (4.00-5.60); RDW 17.6 % (11.9-15.9); WHITE BLOOD COUNT 13.5 K/mm3 (4.0-10.0)
[2019-08-14 08:54] LABS: BLOOD UREA NITROGEN 16.7 mg/dL (7-18); CALCIUM 8.9 mg/dL (8.5-10.1); CREATININE 0.6 mg/dL (0.55-1.3)
[2019-08-14] MEDS: SPIRONOLACTONE 25 MG TABLET GT SCH (09:32)
[2019-08-14] MEDS: AMINO ACIDS/PROTEIN HYDROLYS 30 ML LIQUID.PKT GT SCH ×2 (09:33→16:52)
[2019-08-14] MEDS: levETIRAcetam 500 MG/5 ML ORAL SOLUTION (UNIT-DOSE CUPS) NGT SCH (09:34)
[2019-08-14] MEDS: ZINC SULFATE 220 MG CAPSULE (FP) GT SCH (09:34)
[2019-08-14] MEDS: PHENobarbital 20 MG/5 ML UNIT-DOSE CUP NGT SCH (09:35)
[2019-08-14] MEDS: POTASSIUM CHLORIDE ORAL LIQUID 20 MEQ/15 ML GT SCH (09:35)
[2019-08-14] MEDS: Lacosamide 50 MG/5 ML ORAL SOLUTION UNIT CUPS PO SCH (09:36)
[2019-08-14] MEDS: PANTOPRAZOLE SOD 40 MG SUSPENSION PACKET NGT SCH (10:29)
[2019-08-14] MEDS: CHOLECALCIFEROL (VIT D3) 400 UNIT (10 MCG) TABLET NR SCH (10:32)
[2019-08-14] MEDS: FUROSEMIDE 40 MG/5 ML UNIT-DOSE CUP PO SCH (10:32)
[2019-08-14] MEDS: FAMOTIDINE 40 MG/5 ML ORAL SUSPENSION NR SCH (10:32)
[2019-08-14] MEDS: ASCORBIC ACID 500 MG/5 ML UNIT DOSE CUP GT SCH (10:32)
[2019-08-14] MEDS: POLYETHYLENE GLYCOL 3350 119 GM BTL GT SCH (10:39)
--- NOTE | 2019-08-14 11:00 | PN ---
Progress Note (short form) - Note Progress Note: PULMONARY VSS/AFEBRILE Constitutional: Yes: Well Nourished Eyes: Yes: WNL HENT: Yes: WNL Neck: Yes: Supple (TRACH) Cardiovascular: Yes: Regular Rate and Rhythm, S1, S2 Respiratory: Yes: Rhonchi (DIFFUSE CAROLYN RHONCHI,CONGESTION) Gastrointestinal: Yes: Normal Bowel Sounds, Soft Extremities: Yes: WNL Edema: Yes Labs/MEDS/NOTES/IMAGES REVIEWED Acute Hypoxic and Hypercapneic Respiratory Failure COVID19 Pneumonia E Coli Pneumonia Fungenmia Bacteremia Septic Shock Seizure Disorder Mental Retardation ABNORMAL LFTS - Ativan PRN - ABX per ID - antiepileptics - lasix, aldactone - monitor urine output, creatinine - low tidal volume ventilation - titrate FiO2, PEEP to keep SpO2 >90% - spontaeneous breathing trials as tolerated - enteral feeds: Should have PEG insertion - DVT/GI prophylaxis - monitor lfts - inhaled bronchodilators Avery WISEMAN MD
[2019-08-14] MEDS ORDERED: PANTOPRAZOLE SOD 40 MG SUSPENSION PACKET NGT SCH (11:15)
--- NOTE | 2019-08-14 11:44 | PN ---
Progress Note, Physician History of Present Illness: Pt seen and examined at bedside. He is awake today. - Current Medication List Current Medications: Active Medications Acetaminophen (Tylenol Oral Solution -) 650 mg GT Q6H PRN PRN Reason: FEVER Last Admin: 08/13/19 23:18 Dose: 650 mg Documented by: Albuterol/Ipratropium (Duoneb -) 1 amp NEB Q4H PRN PRN Reason: SHORTNESS OF BREATH Last Admin: 08/09/19 12:10 Dose: 1 amp Documented by: Amino Acids (Prosource No Carb Liquid Pkt) 30 ml GT BID@0800,1730 TIKI Last Admin: 08/14/19 09:33 Dose: 30 ml Documented by: Artificial Tears (Artificial Tears) 1 drop OU Q12H PRN PRN Reason: DRY EYES Last Admin: 08/10/19 10:43 Dose: 1 drop Documented by: Ascorbic Acid (Vitamin C Oral Solution -) 500 mg GT DAILY TIKI Last Admin: 08/14/19 10:32 Dose: 500 mg Documented by: Cholecalciferol (Vitamin D3 -) 800 unit NR DAILY [facility]IK[facility] Last Admin: 08/14/19 10:32 Dose: 800 unit Documented by: Docusate Sodium (Colace Liquid -) 100 mg PO DAILY PRN PRN Reason: CONSTIPATION Enoxaparin Sodium (Lovenox -) 40 mg SQ DAILY [facility] Furosemide (Lasix Oral Solution -) 40 mg PO DAILY T[facility]I Last Admin: 08/14/19 10:32 Dose: 40 mg Documented by: Vancomycin HCl 1,500 mg/ (Dextrose) 500 mls @ 250 mls/hr IVPB Q12H TIKI; Protocol Last Admin: 08/14/19 06:25 Dose: 250 mls/hr Documented by: Meropenem 1 gm/ Dextrose 100 mls @ 200 mls/hr IVPB Q8H-IV TIKI Last Admin: 08/14/19 09:33 Dose: 200 mls/hr Documented by: Lacosamide (Vimpat Liquid -) 200 mg PO BID TIKI Last Admin: 08/14/19 09:36 Dose: 200 mg Documented by: Levetiracetam (Keppra Oral Solution -) 1,000 mg NGT BID [facility]IKI Last Admin: 08/14/19 09:34 Dose: 1,000 mg Documented by: Lorazepam (Ativan Injection -) 1 mg IVPUSH Q6H PRN PRN Reason: AGITATION Last Admin: 08/13/19 21:28 Dose: 1 mg Documented by: Nystatin (Nystatin Oral Suspension -) 500,000 units PO Q6HPO PRN PRN Reason: ORAL PAIN/MOUTH SORES Pantoprazole Sodium (Protonix Packets For Oral Suspension -) 40 mg NGT DAILY [facility] Phenobarbital (Phenobarbital Liquid -) 60 mg NGT BID [facility] Last Admin: 08/14/19 09:35 Dose: 60 mg Documented by: Potassium Chloride (Potassium Chloride Oral Liquid) 40 meq GT BID [facility] Last Admin: 08/14/19 09:35 Dose: 40 meq Documented by: Spironolactone (Aldactone -) 50 mg GT BID [facility] Last Admin: 08/14/19 09:32 Dose: 50 mg Documented by: Topiramate (Topamax -) 200 mg GT TID [facility] Last Admin: 08/14/19 05:16 Dose: 200 mg Documented by: Zinc Sulfate (Orazinc -) 220 mg GT BID [facility] Last Admin: 08/14/19 09:34 Dose: 220 mg Documented by: - Objective Vital Signs: Vital Signs Temperature 98.5 F 08/14/19 09:00 Pulse Rate 110 H 08/14/19 09:00 Respiratory Rate 38 H 08/14/19 11:07 Blood Pressure 148/93 08/14/19 09:00 O2 Sat by Pulse Oximetry (%) 100 08/14/19 11:07 Constitutional: Yes: Calm Eyes: Yes: Conjunctiva Clear HENT: Yes: Atraumatic Cardiovascular: Yes: S1, S2 Respiratory: Yes: Mechanically Ventilated Genitourinary: Yes: Nicki Present Edema: LLE: Trace, RLE: Trace Neurological: Yes: Other (awake) Labs: CBC, BMP 08/14/19 07:20 08/14/19 07:20 INR, PTT INR 1.01 (0.83-1.09) 07/28/19 05:00 Problem List - Problems (1) Hypernatremia Code(s): E87.0 - HYPEROSMOLALITY AND HYPERNATREMIA (2) Hypokalemia Code(s): E87.6 - HYPOKALEMIA (3) Acute respiratory failure with hypoxia Code(s): J96.01 - ACUTE RESPIRATORY FAILURE WITH HYPOXIA (4) Bacteremia Code(s): R78.81 - BACTEREMIA Assessment/Plan Current Medications Generic Name Dose Route Start Last Admin Trade Name Freq PRN Reason Stop Dose Admin Acetaminophen 650 mg 08/08/19 18:05 08/13/19 23:18 Tylenol Oral Solution - GT 650 mg Q6H PRN Administration FEVER Albuterol/Ipratropium 1 amp 08/09/19 09:42 08/09/19 12:10 Duoneb - NEB 1 amp Q4H PRN Administration SHORTNESS OF BREATH Amino Acids 30 ml 08/09/19 08:00 08/14/19 09:33 Prosource No Carb Liquid Pkt GT 30 ml BID@0800,1730 TIKI Administration Artificial Tears 1 drop 08/08/19 18:05 08/10/19 10:43 Artificial Tears OU 1 drop Q12H PRN Administration DRY EYES Ascorbic Acid 500 mg 08/09/19 10:00 08/14/19 10:32 Vitamin C Oral Solution - GT 500 mg DAILY TIKI Administration Cholecalciferol 800 unit 08/09/19 10:00 08/14/19 10:32 Vitamin D3 - NR 800 unit DAILY TIKI Administration Docusate Sodium 100 mg 08/09/19 09:46 Colace Liquid - PO DAILY PRN CONSTIPATION Enoxaparin Sodium 40 mg 08/15/19 10:00 Lovenox - SQ DAILY [facility] Furosemide 40 mg 08/12/19 10:00 08/14/19 10:32 Lasix Oral Solution - PO 40 mg DAILY [facility] Administration Vancomycin HCl 1,500 mg/ 500 mls @ 250 mls/hr 08/12/19 07:00 08/14/19 06:25 Dextrose IVPB 250 mls/hr Q12H [facility]IK[facility] Administration Protocol Meropenem 1 gm/ Dextrose 100 mls @ 200 mls/hr 08/12/19 12:00 08/14/19 09:33 IVPB 200 mls/hr Q8H-IV [facility]IKI Administration Lacosamide 200 mg 08/10/19 22:00 08/14/19 09:36 Vimpat Liquid - PO 200 mg BID [facility]IKI Administration Levetiracetam 1,000 mg 08/10/19 22:00 08/14/19 09:34 Keppra Oral Solution - NGT 1,000 mg BID TIKI Administration Lorazepam 1 mg 08/12/19 17:16 08/13/19 21:28 Ativan Injection - IVPUSH 1 mg Q6H PRN Administration AGITATION Nystatin 500,000 units 08/08/19 18:05 Nystatin Oral Suspension - PO Q6HPO PRN ORAL PAIN/MOUTH SORES Phenobarbital 60 mg 08/10/19 22:00 08/14/19 09:35 Phenobarbital Liquid - NGT 60 mg BID TIKI Administration Potassium Chloride 40 meq 08/08/19 22:00 08/14/19 09:35 Potassium Chloride Oral Liquid GT 40 meq BID [facility]IK[facility] Administration Spironolactone 50 mg 08/10/19 22:00 08/14/19 09:32 Aldactone - GT 50 mg BID TIKI Administration Topiramate 200 mg 08/08/19 22:00 08/14/19 05:16 Topamax - GT 200 mg TID [facility] Administration Zinc Sulfate 220 mg 08/08/19 22:00 08/14/19 09:34 Orazinc - GT 220 mg BID TIKI Administration Impression 1. hypokalemia 2. hypernatremia 3. resp failure 4. fungemia 5. covid 19 infection 6. ards 7. developemental delay 8. epilepsy 9. bactermia 10. resp acidosis with compensatory met alk Plan - cont current meds - renal function stable - potassium improved - cont feeds - weaning per pulmonary - will follow PRN
--- NOTE | 2019-08-14 12:05 | PN ---
Progress Note (short form) - Note Progress Note: remains intubated s/p trach ffevers trending down on vanco/meropenem no trach secretions per RM ct scan head/c/a//p sphenoid sinusitis bilateral air space disease with small pleural effusions cdiff negative fevers trending down Vital Signs Period Temp Pulse Resp BP Sys/Ortiz Pulse Ox Last 24 Hr 98.2 F-102.3 F 105-130 28-40 122-148/74-93 100-100 cor-rrr lungs clear abd soft,nt ext no edema +anthony CBC, BMP 08/14/19 07:20 08/14/19 07:20 Microbiology 08/12/19 13:10 Blood - Peripheral Venous Blood Culture - Preliminary NO GROWTH OBTAINED AFTER 24 HOURS, INCUBATION TO CONTINUE FOR 4 DAYS. 08/12/19 13:00 Blood - Peripheral Venous Blood Culture - Preliminary NO GROWTH OBTAINED AFTER 24 HOURS, INCUBATION TO CONTINUE FOR 4 DAYS. 08/12/19 14:45 Stool Clostridioides difficile Antigen - Final 08/12/19 14:45 Stool Clostridioides difficile Toxin Assay - Final 08/09/19 11:45 Blood - Peripheral Venous Blood Culture - Preliminary NO GROWTH OBTAINED AFTER 96 HOURS, INCUBATION TO CONTINUE FOR 1 DAYS. 08/09/19 11:52 Blood - Peripheral Venous Blood Culture - Preliminary NO GROWTH OBTAINED AFTER 96 HOURS, INCUBATION TO CONTINUE FOR 1 DAYS. covid pcr negative (repeat) quantiferon negative imp/reccd recurrent fevers-sphenoid sinusitis, scans, cultures so far unrevealing s/p trach sinusitis ARDS/pneumonia- sputum MRSA bacteremia- recurrent staph epi bacteremia- ?endocarditis- echo unrevealing- continue vancomycin, day #30 -plan 6 weeks repeat vanco trough fungemia- quita lusitanae- has completed 14 days cancidas- repeat cultures negative covid 19 positive -repeat pcr negative s/p convalescent plasma s/p tocilizumab MRSA isolation for positive sputum culture- esbl isolation for prior sputum ecoli esbl trend lfts consider EEG Problem List - Problems (1) Suspected COVID-19 virus infection Code(s): R68.89 - OTHER GENERAL SYMPTOMS AND SIGNS (2) Acute respiratory failure with hypoxia Code(s): J96.01 - ACUTE RESPIRATORY FAILURE WITH HYPOXIA (3) Bacteremia Code(s): R78.81 - BACTEREMIA
[2019-08-14] MEDS: PANTOPRAZOLE SODIUM 40 MG VIAL IVPUSH SCH (12:47)
[2019-08-14] MEDS: LORazepam 2 MG/ML SDV VIAL IVPUSH PRN (12:54)
[2019-08-14] MEDS ORDERED: PT OWN MED DRAWER 7, Y5N ONE (14:27)
[2019-08-14] MEDS: ACETAMINOPHEN 650 MG/20.3 ML ORAL SOLUTION (CUPS) GT PRN (14:48)
[2019-08-15] MEDS ORDERED: PT OWN MED DRAWER 7, Y5N ONE ×4 (00:41→21:32)
[2019-08-15] MEDS: PHENobarbital 20 MG/5 ML UNIT-DOSE CUP NGT SCH ×3 (00:44→21:38)
[2019-08-15] MEDS: levETIRAcetam 500 MG/5 ML ORAL SOLUTION (UNIT-DOSE CUPS) NGT SCH ×3 (00:44→21:38)
[2019-08-15] MEDS: Lacosamide 50 MG/5 ML ORAL SOLUTION UNIT CUPS PO SCH ×3 (00:44→21:39)
[2019-08-15] MEDS: ZINC SULFATE 220 MG CAPSULE (FP) GT SCH ×3 (00:45→21:39)
[2019-08-15] MEDS: SPIRONOLACTONE 25 MG TABLET GT SCH ×3 (00:45→21:37)
[2019-08-15] MEDS: TOPIRAMATE 200 MG TABLET GT SCH ×4 (00:46→21:37)
[2019-08-15] MEDS: POTASSIUM CHLORIDE ORAL LIQUID 20 MEQ/15 ML GT SCH ×3 (00:46→21:38)
[2019-08-15] MEDS ORDERED: DEXTROSE 5%-WATER 100 ML IVPB ONE ×3 (03:00→17:12)
[2019-08-15] MEDS ORDERED: MEROPENEM 1 GM VIAL (RESTRICTED TO ID) IVPB ONE ×3 (03:00→17:12)
[2019-08-15] MEDS: MEROPENEM 1 GM in DEXTROSE 5%-WATER 100 ML IVPB SCH ×3 (03:02→17:35)
[2019-08-15] MEDS: VANCOMYCIN HCL 1,500 MG in DEXTROSE 5%-WATER - 500 ML IVPB SCH ×2 (06:38→09:39)
--- NOTE | 2019-08-15 07:01 | PN ---
Progress Note, Physician History of Present Illness: pulmonary awake,on vent support ac mode,congested - Current Medication List Current Medications: Active Medications Acetaminophen (Tylenol Oral Solution -) 650 mg GT Q6H PRN PRN Reason: FEVER Last Admin: 08/14/19 14:48 Dose: 650 mg Documented by: Albuterol/Ipratropium (Duoneb -) 1 amp NEB Q4H PRN PRN Reason: SHORTNESS OF BREATH Last Admin: 08/09/19 12:10 Dose: 1 amp Documented by: Amino Acids (Prosource No Carb Liquid Pkt) 30 ml GT BID@0800,1730 [facility] Last Admin: 08/14/19 16:52 Dose: 30 ml Documented by: Artificial Tears (Artificial Tears) 1 drop OU Q12H PRN PRN Reason: DRY EYES Last Admin: 08/10/19 10:43 Dose: 1 drop Documented by: Ascorbic Acid (Vitamin C Oral Solution -) 500 mg GT DAILY [facility] Last Admin: 08/14/19 10:32 Dose: 500 mg Documented by: Cholecalciferol (Vitamin D3 -) 800 unit NR DAILY [facility] Last Admin: 08/14/19 10:32 Dose: 800 unit Documented by: Docusate Sodium (Colace Liquid -) 100 mg PO DAILY PRN PRN Reason: CONSTIPATION Enoxaparin Sodium (Lovenox -) 40 mg SQ DAILY [facility] Furosemide (Lasix Oral Solution -) 40 mg PO DAILY [facility] Last Admin: 08/14/19 10:32 Dose: 40 mg Documented by: Vancomycin HCl 1,500 mg/ (Dextrose) 500 mls @ 250 mls/hr IVPB Q12H [facility]IK[facility]; Protocol Last Admin: 08/15/19 06:38 Dose: 250 mls/hr Documented by: Meropenem 1 gm/ Dextrose 100 mls @ 200 mls/hr IVPB Q8H-IV [facility] Last Admin: 08/15/19 03:02 Dose: 200 mls/hr Documented by: Lacosamide (Vimpat Liquid -) 200 mg PO BID [facility] Last Admin: 08/15/19 00:44 Dose: 200 mg Documented by: Levetiracetam (Keppra Oral Solution -) 1,000 mg NGT BID [facility] Last Admin: 08/15/19 00:44 Dose: 1,000 mg Documented by: Lorazepam (Ativan Injection -) 1 mg IVPUSH Q6H PRN PRN Reason: AGITATION Last Admin: 08/14/19 12:54 Dose: 1 mg Documented by: Nystatin (Nystatin Oral Suspension -) 500,000 units PO Q6HPO PRN PRN Reason: ORAL PAIN/MOUTH SORES Pantoprazole Sodium (Protonix Iv) 40 mg IVPUSH DAILY [facility] Last Admin: 08/14/19 12:47 Dose: 40 mg Documented by: Phenobarbital (Phenobarbital Liquid -) 60 mg NGT BID [facility] Last Admin: 08/15/19 00:44 Dose: 60 mg Documented by: Potassium Chloride (Potassium Chloride Oral Liquid) 40 meq GT BID [facility] Last Admin: 08/15/19 00:46 Dose: 40 meq Documented by: Spironolactone (Aldactone -) 50 mg GT BID [facility] Last Admin: 08/15/19 00:45 Dose: 50 mg Documented by: Topiramate (Topamax -) 200 mg GT TID [facility] Last Admin: 08/15/19 05:33 Dose: 200 mg Documented by: Zinc Sulfate (Orazinc -) 220 mg GT BID [facility] Last Admin: 08/15/19 00:45 Dose: 220 mg Documented by: - Objective Vital Signs: Vital Signs Temperature 99.6 F 08/15/19 06:01 Pulse Rate 102 H 08/15/19 06:01 Respiratory Rate 36 H 08/15/19 06:01 Blood Pressure 129/91 08/15/19 06:01 O2 Sat by Pulse Oximetry (%) 100 08/15/19 05:10 Constitutional: Yes: Well Nourished, Calm Eyes: Yes: WNL HENT: Yes: WNL Neck: Yes: Supple (trach) Cardiovascular: Yes: Regular Rate and Rhythm, S1, S2 Respiratory: Yes: Rhonchi (bilateral coarse rhonchi) Gastrointestinal: Yes: Normal Bowel Sounds, Soft Extremities: Yes: WNL Edema: No Labs: CBC, BMP 08/14/19 07:20 Problem List - Problems (1) COVID-19 Code(s): U07.1 - COVID POSITIVE (2) COVID-19 Code(s): U07.1 - COVID POSITIVE (3) Acute respiratory failure with hypoxia Code(s): J96.01 - ACUTE RESPIRATORY FAILURE WITH HYPOXIA (4) Seizure disorder Code(s): G40.909 - EPILEPSY, UNSP, NOT INTRACTABLE, WITHOUT STATUS EPILEPTICUS (5) Status epilepticus Code(s): G40.901 - EPILEPSY, UNSP, NOT INTRACTABLE, WITH STATUS EPILEPTICUS Assessment/Plan ASSESSMENT AND PLAN: Acute Hypoxic and Hypercapneic Respiratory Failure COVID19 Pneumonia E Coli Pneumonia Fungenmia Bacteremia Septic Shock Seizure Disorder Mental Retardation ABNORMAL LFTS - Ativan PRN - ABX per ID - antiepileptics - lasix, aldactone - monitor urine output, creatinine - low tidal volume ventilation - titrate FiO2, PEEP to keep SpO2 >90% - spontaeneous breathing trials as tolerated - enteral feeds: Should have PEG insertion - DVT/GI prophylaxis - monitor lfts - inhaled bronchodilators Dr MARTINEZ
--- NOTE | 2019-08-15 08:23 | PN ---
Progress Note, Physician Chief Complaint: Patient remained at baseline History of Present Illness: 39 years old male mentally challenged, seizure disorders lives at home admitted with hypoxic respiratory failure on June 22, 2019 secondary to COVID-19, multiple pulmonary infection and bacteremia treated for fungemia, MRSA, ESBL E. coli,, persistent staph epi bacteremia normal echocardiogram on vancomycin as per ID total 6 weeks of Vanco today [id number] , patient did spike fever on August 09, 2019 put on Zosyn, remained afebrile but persistent elevation of WBC. ID/pulmonary on the case, switched to Remeron August 12, 2019, stool C. difficile is negative temperature ranges improving so far no source of infection. - Current Medication List Current Medications: Active Medications Acetaminophen (Tylenol Oral Solution -) 650 mg GT Q6H PRN PRN Reason: FEVER Last Admin: 08/14/19 14:48 Dose: 650 mg Documented by: Albuterol/Ipratropium (Duoneb -) 1 amp NEB Q4H PRN PRN Reason: SHORTNESS OF BREATH Last Admin: 08/09/19 12:10 Dose: 1 amp Documented by: Amino Acids (Prosource No Carb Liquid Pkt) 30 ml GT BID@0800,1730 [facility] Last Admin: 08/14/19 16:52 Dose: 30 ml Documented by: Artificial Tears (Artificial Tears) 1 drop OU Q12H PRN PRN Reason: DRY EYES Last Admin: 08/10/19 10:43 Dose: 1 drop Documented by: Ascorbic Acid (Vitamin C Oral Solution -) 500 mg GT DAILY [facility] Last Admin: 08/14/19 10:32 Dose: 500 mg Documented by: Cholecalciferol (Vitamin D3 -) 800 unit NR DAILY [facility] Last Admin: 08/14/19 10:32 Dose: 800 unit Documented by: Docusate Sodium (Colace Liquid -) 100 mg PO DAILY PRN PRN Reason: CONSTIPATION Enoxaparin Sodium (Lovenox -) 40 mg SQ DAILY [facility] Furosemide (Lasix Oral Solution -) 40 mg PO DAILY [facility] Last Admin: 08/14/19 10:32 Dose: 40 mg Documented by: Vancomycin HCl 1,500 mg/ (Dextrose) 500 mls @ 250 mls/hr IVPB Q12H [facility]IK[facility]; Protocol Last Admin: 08/15/19 06:38 Dose: 250 mls/hr Documented by: Meropenem 1 gm/ Dextrose 100 mls @ 200 mls/hr IVPB Q8H-IV [facility] Last Admin: 08/15/19 03:02 Dose: 200 mls/hr Documented by: Lacosamide (Vimpat Liquid -) 200 mg PO BID [facility] Last Admin: 08/15/19 00:44 Dose: 200 mg Documented by: Levetiracetam (Keppra Oral Solution -) 1,000 mg NGT BID [facility] Last Admin: 08/15/19 00:44 Dose: 1,000 mg Documented by: Lorazepam (Ativan Injection -) 1 mg IVPUSH Q6H PRN PRN Reason: AGITATION Last Admin: 08/14/19 12:54 Dose: 1 mg Documented by: Nystatin (Nystatin Oral Suspension -) 500,000 units PO Q6HPO PRN PRN Reason: ORAL PAIN/MOUTH SORES Pantoprazole Sodium (Protonix Iv) 40 mg IVPUSH DAILY [facility] Last Admin: 08/14/19 12:47 Dose: 40 mg Documented by: Phenobarbital (Phenobarbital Liquid -) 60 mg NGT BID [facility] Last Admin: 08/15/19 00:44 Dose: 60 mg Documented by: Potassium Chloride (Potassium Chloride Oral Liquid) 40 meq GT BID [facility] Last Admin: 08/15/19 00:46 Dose: 40 meq Documented by: Spironolactone (Aldactone -) 50 mg GT BID [facility] Last Admin: 08/15/19 00:45 Dose: 50 mg Documented by: Topiramate (Topamax -) 200 mg GT TID [facility] Last Admin: 08/15/19 05:33 Dose: 200 mg Documented by: Zinc Sulfate (Orazinc -) 220 mg GT BID [facility] Last Admin: 08/15/19 00:45 Dose: 220 mg Documented by: - Objective Vital Signs: Vital Signs Temperature 99.6 F 08/15/19 06:01 Pulse Rate 102 H 08/15/19 06:01 Respiratory Rate 36 H 08/15/19 06:01 Blood Pressure 129/91 08/15/19 06:01 O2 Sat by Pulse Oximetry (%) 100 08/15/19 05:10 General: Young man status post trach not in distress HEENT mucous membranes moist, no anemia, no jaundice, PERRLA, no nystagmus Neck: Status post trach Chest: bilateral basal rales. CVS: S1-S2 no murmur/gallop/rub Abdomen: Nondistended, soft, bowel sounds present. 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 difficile: Negative CT head: No significant interval change CT chest: Bilateral extensive pulmonary infiltrates with moderate pleural effusion CT abdomen: No intra-abdominal collection or abscess) Problem List - Problems (1) Acute respiratory failure with hypoxia Assessment/Plan: Due to COVID pneumonia status post intubation now on trach, vent dependent , vent management as per critical care. Code(s): J96.01 - ACUTE RESPIRATORY FAILURE WITH HYPOXIA (2) Bacteremia Assessment/Plan: Patient grew staph epi on multiple cultures on 6 weeks of IV vancomycin today is day 31 last culture done on August 08 shows no growth so far. Code(s): R78.81 - BACTEREMIA (3) Fever Assessment/Plan: Patient spiked fever despite vancomycin day 31st and meropenem day fourth and discussed with ID recommended panculture, fraser scan including sinus, stool C. difficile negative we will follow-up ID recommendation , vancomycin level supratherapeutic will hold on follow-up Vanco trough before next dose Code(s): R50.9 - FEVER, UNSPECIFIED (4) Seizure disorder Assessment/Plan: Continue seizure medications Code(s): G40.909 - EPILEPSY, UNSP, NOT INTRACTABLE, WITHOUT STATUS EPILEPTICUS (5) Diarrhea Assessment/Plan: Patient has diarrhea C. difficile negative will hold laxative and observe Code(s): R19.7 - DIARRHEA, UNSPECIFIED (6) DVT prophylaxis Assessment/Plan: Patient was on therapeutic dose of anticoagulation, DVT and CT scan negative for PE, patient took total 8 weeks of full dose anticoagulation, currently on hold due to questionable GI bleed will switch to p.o. Prevacid and Protonix and resume DVT prophylaxis Code(s): Z29.9 - ENCOUNTER FOR PROPHYLACTIC MEASURES, UNSPECIFIED (7) Pneumonia due to COVID-19 virus Assessment/Plan: COVID-19 pneumonia complicated with respiratory failure received hydroxychloroquine , Actemra, convalescent plasma, multiple course of antibiotic, completed treatment fungemia CT scan shows persistent changes Problems reviewed: Yes Code(s): U07.1 - COVID POSITIVE; J12.89 - OTHER VIRAL PNEUMONIA
[2019-08-15] MEDS: AMINO ACIDS/PROTEIN HYDROLYS 30 ML LIQUID.PKT GT SCH ×2 (09:21→17:34)
[2019-08-15] MEDS: CHOLECALCIFEROL (VIT D3) 400 UNIT (10 MCG) TABLET NR SCH (09:22)
[2019-08-15] MEDS: ASCORBIC ACID 500 MG/5 ML UNIT DOSE CUP GT SCH (09:22)
[2019-08-15] MEDS: FUROSEMIDE 40 MG/5 ML UNIT-DOSE CUP PO SCH (09:23)
[2019-08-15] MEDS: ENOXAPARIN NA (PORCINE) 40 MG/0.4 ML DISP.SYRIN SQ SCH (09:26)
[2019-08-15] MEDS: PANTOPRAZOLE SODIUM 40 MG VIAL IVPUSH SCH (09:30)
--- NOTE | 2019-08-15 12:06 | PN ---
Progress Note (short form) - Note Progress Note: remains intubated s/p trach clinically improved, much more responsive trach to vent ct scan head/c/a//p sphenoid sinusitis bilateral air space disease with small pleural effusions cdiff negative fevers trending down Vital Signs Period Temp Pulse Resp BP Sys/Ortiz Pulse Ox Last 24 Hr 97.6 F-101 F 102-134 33-42 129-158/82-97 100-100 cor-rrr lungs clear abd soft,nt ext trace edema vanco trough 33- CBC, BMP 08/14/19 07:20 08/14/19 07:20 Microbiology 08/12/19 13:10 Blood - Peripheral Venous Blood Culture - Preliminary NO GROWTH OBTAINED AFTER 48 HOURS, INCUBATION TO CONTINUE FOR 3 DAYS. 08/12/19 13:00 Blood - Peripheral Venous Blood Culture - Preliminary NO GROWTH OBTAINED AFTER 48 HOURS, INCUBATION TO CONTINUE FOR 3 DAYS. 08/09/19 11:45 Blood - Peripheral Venous Blood Culture - Final NO GROWTH AFTER 5 DAYS INCUBATION 08/09/19 11:52 Blood - Peripheral Venous Blood Culture - Final NO GROWTH AFTER 5 DAYS INCUBATION covid pcr negative (repeat) quantiferon negative imp/reccd recurrent fevers-sphenoid sinusitis, scans, cultures so far unrevealing s/p trach sinusitis continue meropenem day #4 ARDS/pneumonia- sputum MRSA bacteremia- recurrent staph epi bacteremia- ?endocarditis- echo unrevealing- continue vancomycin, day #31 -plan 6 weeks repeat vanco trough 33 I suspect vanco was running in- will repeat level before resuming vancomycin fungemia- quita lusitanae- has completed 14 days cancidas- repeat cultures negative covid 19 positive -repeat pcr negative s/p convalescent plasma s/p tocilizumab MRSA isolation for positive sputum culture- esbl isolation for prior sputum ecoli esbl trend lfts-repeat in am-consider sonogram of liver/gallbladder Problem List - Problems (1) Suspected COVID-19 virus infection Code(s): R68.89 - OTHER GENERAL SYMPTOMS AND SIGNS (2) Acute respiratory failure with hypoxia Code(s): J96.01 - ACUTE RESPIRATORY FAILURE WITH HYPOXIA (3) Bacteremia Code(s): R78.81 - BACTEREMIA
[2019-08-15] MEDS: ACETAMINOPHEN 650 MG/20.3 ML ORAL SOLUTION (CUPS) GT PRN (17:42)
[2019-08-16] MEDS ORDERED: MEROPENEM 1 GM VIAL (RESTRICTED TO ID) IVPB ONE ×3 (01:39→16:49)
[2019-08-16] MEDS ORDERED: DEXTROSE 5%-WATER 100 ML IVPB ONE ×3 (01:39→16:49)
[2019-08-16] MEDS: LORazepam 2 MG/ML SDV VIAL IVPUSH PRN ×2 (01:42→23:54)
[2019-08-16] MEDS: MEROPENEM 1 GM in DEXTROSE 5%-WATER 100 ML IVPB SCH ×3 (01:50→17:35)
[2019-08-16] MEDS: ACETAMINOPHEN 650 MG/20.3 ML ORAL SOLUTION (CUPS) GT PRN ×4 (02:54→23:54)
[2019-08-16] MEDS ORDERED: METOPROLOL TARTRATE 5 MG/5 ML VIAL IVPB ONE ×2 (03:51→18:17)
[2019-08-16] MEDS: TOPIRAMATE 200 MG TABLET GT SCH ×3 (06:40→21:51)
--- NOTE | 2019-08-16 06:59 | PN ---
Progress Note, Physician History of Present Illness: pulmonary awake on vent support ac mode,pplt 21,-resp distress. tmax 100.7 - Current Medication List Current Medications: Active Medications Acetaminophen (Tylenol Oral Solution -) 650 mg GT Q6H PRN PRN Reason: FEVER Last Admin: 08/16/19 02:54 Dose: 650 mg Documented by: Albuterol/Ipratropium (Duoneb -) 1 amp NEB Q4H PRN PRN Reason: SHORTNESS OF BREATH Last Admin: 08/09/19 12:10 Dose: 1 amp Documented by: Amino Acids (Prosource No Carb Liquid Pkt) 30 ml GT BID@0800,1730 [facility] Last Admin: 08/15/19 17:34 Dose: 30 ml Documented by: Artificial Tears (Artificial Tears) 1 drop OU Q12H PRN PRN Reason: DRY EYES Last Admin: 08/10/19 10:43 Dose: 1 drop Documented by: Ascorbic Acid (Vitamin C Oral Solution -) 500 mg GT DAILY [facility] Last Admin: 08/15/19 09:22 Dose: 500 mg Documented by: Cholecalciferol (Vitamin D3 -) 800 unit NR DAILY [facility] Last Admin: 08/15/19 09:22 Dose: 800 unit Documented by: Docusate Sodium (Colace Liquid -) 100 mg PO DAILY PRN PRN Reason: CONSTIPATION Enoxaparin Sodium (Lovenox -) 40 mg SQ DAILY [facility] Last Admin: 08/15/19 09:26 Dose: 40 mg Documented by: Furosemide (Lasix Oral Solution -) 40 mg PO DAILY [facility] Last Admin: 08/15/19 09:23 Dose: 40 mg Documented by: Meropenem 1 gm/ Dextrose 100 mls @ 200 mls/hr IVPB Q8H-IV TIKI Last Admin: 08/16/19 01:50 Dose: 200 mls/hr Documented by: Lacosamide (Vimpat Liquid -) 200 mg PO BID [facility] Last Admin: 08/15/19 21:39 Dose: 200 mg Documented by: Levetiracetam (Keppra Oral Solution -) 1,000 mg NGT BID [facility] Last Admin: 08/15/19 21:38 Dose: 1,000 mg Documented by: Lorazepam (Ativan Injection -) 1 mg IVPUSH Q6H PRN PRN Reason: AGITATION Last Admin: 08/16/19 01:42 Dose: 1 mg Documented by: Nystatin (Nystatin Oral Suspension -) 500,000 units PO Q6HPO PRN PRN Reason: ORAL PAIN/MOUTH SORES Pantoprazole Sodium (Protonix Iv) 40 mg IVPUSH DAILY [facility] Last Admin: 08/15/19 09:30 Dose: 40 mg Documented by: Phenobarbital (Phenobarbital Liquid -) 60 mg NGT BID [facility] Last Admin: 08/15/19 21:38 Dose: 60 mg Documented by: Potassium Chloride (Potassium Chloride Oral Liquid) 40 meq GT BID [facility] Last Admin: 08/15/19 21:38 Dose: 40 meq Documented by: Spironolactone (Aldactone -) 50 mg GT BID [facility] Last Admin: 08/15/19 21:37 Dose: 50 mg Documented by: Topiramate (Topamax -) 200 mg GT TID [facility] Last Admin: 08/16/19 06:40 Dose: 200 mg Documented by: Zinc Sulfate (Orazinc -) 220 mg GT BID [facility] Last Admin: 08/15/19 21:39 Dose: 220 mg Documented by: - Objective Vital Signs: Vital Signs Temperature 100.2 F H 08/16/19 04:13 Pulse Rate 130 H 08/16/19 04:13 Respiratory Rate 30 H 08/16/19 06:48 Blood Pressure 144/92 08/16/19 04:13 O2 Sat by Pulse Oximetry (%) 100 08/16/19 02:23 Constitutional: Yes: Well Nourished, Calm Eyes: Yes: WNL HENT: Yes: WNL Neck: Yes: Supple (trach) Cardiovascular: Yes: Regular Rate and Rhythm, S1, S2 Respiratory: Yes: Rhonchi (bilateral rhonchi) Gastrointestinal: Yes: Normal Bowel Sounds, Soft Extremities: Yes: WNL Edema: No Labs: CBC, BMP Laboratory Tests 08/16/19 08/16/19 08:05 08:05 WBC 15.1 H RBC 3.38 L Hgb 9.6 L Plt Count 379 BUN 20.7 H Creatinine 0.5 L ALT 118 H Alkaline Phosphatase 156 H Problem List - Problems (1) COVID-19 Code(s): U07.1 - COVID POSITIVE (2) COVID-19 Code(s): U07.1 - COVID POSITIVE (3) Acute respiratory failure with hypoxia Code(s): J96.01 - ACUTE RESPIRATORY FAILURE WITH HYPOXIA (4) Seizure disorder Code(s): G40.909 - EPILEPSY, UNSP, NOT INTRACTABLE, WITHOUT STATUS EPILEPTICUS (5) Status epilepticus Code(s): G40.901 - EPILEPSY, UNSP, NOT INTRACTABLE, WITH STATUS EPILEPTICUS Assessment/Plan ASSESSMENT AND PLAN: Acute Hypoxic and Hypercapneic Respiratory Failure COVID19 Pneumonia E Coli Pneumonia Fungenmia Bacteremia Septic Shock Seizure Disorder Mental Retardation ABNORMAL LFTS - Ativan PRN - ABX per ID - antiepileptics - lasix, aldactone - monitor urine output, creatinine - low tidal volume ventilation - titrate FiO2, PEEP to keep SpO2 >90% - spontaeneous breathing trials as tolerated - enteral feeds: Should have PEG insertion - DVT/GI prophylaxis - monitor lfts - inhaled bronchodilators Dr MARTINEZ
--- NOTE | 2019-08-16 07:46 | PN ---
Progress Note, Physician Chief Complaint: Patient remained at baseline, sinus tachycardia History of Present Illness: 39 years old male mentally challenged, seizure disorders lives at home admitted with hypoxic respiratory failure on June 22, 2019 secondary to COVID-19, multiple pulmonary infection and bacteremia treated for fungemia, MRSA, ESBL E. coli,, persistent staph epi bacteremia normal echocardiogram on vancomycin as per ID total 6 weeks of Vanco today [id number] , patient did spike fever on August 09, 2019 put on Zosyn, remained afebrile but persistent elevation of WBC. ID/pulmonary on the case, switched to meropenem August 12, 2019, stool C. difficile is negative temperature ranges improving so far no source of infection. - Current Medication List Current Medications: Active Medications Acetaminophen (Tylenol Oral Solution -) 650 mg GT Q6H PRN PRN Reason: FEVER Last Admin: 08/16/19 02:54 Dose: 650 mg Documented by: Albuterol/Ipratropium (Duoneb -) 1 amp NEB Q4H PRN PRN Reason: SHORTNESS OF BREATH Last Admin: 08/09/19 12:10 Dose: 1 amp Documented by: Amino Acids (Prosource No Carb Liquid Pkt) 30 ml GT BID@0800,1730 [facility] Last Admin: 08/15/19 17:34 Dose: 30 ml Documented by: Artificial Tears (Artificial Tears) 1 drop OU Q12H PRN PRN Reason: DRY EYES Last Admin: 08/10/19 10:43 Dose: 1 drop Documented by: Ascorbic Acid (Vitamin C Oral Solution -) 500 mg GT DAILY [facility] Last Admin: 08/15/19 09:22 Dose: 500 mg Documented by: Cholecalciferol (Vitamin D3 -) 800 unit NR DAILY [facility] Last Admin: 08/15/19 09:22 Dose: 800 unit Documented by: Docusate Sodium (Colace Liquid -) 100 mg PO DAILY PRN PRN Reason: CONSTIPATION Enoxaparin Sodium (Lovenox -) 40 mg SQ DAILY [facility] Last Admin: 08/15/19 09:26 Dose: 40 mg Documented by: Furosemide (Lasix Oral Solution -) 40 mg PO DAILY [facility] Last Admin: 08/15/19 09:23 Dose: 40 mg Documented by: Meropenem 1 gm/ Dextrose 100 mls @ 200 mls/hr IVPB Q8H-IV TIKI Last Admin: 08/16/19 01:50 Dose: 200 mls/hr Documented by: Lacosamide (Vimpat Liquid -) 200 mg PO BID [facility] Last Admin: 08/15/19 21:39 Dose: 200 mg Documented by: Levetiracetam (Keppra Oral Solution -) 1,000 mg NGT BID [facility] Last Admin: 08/15/19 21:38 Dose: 1,000 mg Documented by: Lorazepam (Ativan Injection -) 1 mg IVPUSH Q6H PRN PRN Reason: AGITATION Last Admin: 08/16/19 01:42 Dose: 1 mg Documented by: Nystatin (Nystatin Oral Suspension -) 500,000 units PO Q6HPO PRN PRN Reason: ORAL PAIN/MOUTH SORES Pantoprazole Sodium (Protonix Iv) 40 mg IVPUSH DAILY [facility] Last Admin: 08/15/19 09:30 Dose: 40 mg Documented by: Phenobarbital (Phenobarbital Liquid -) 60 mg NGT BID [facility] Last Admin: 08/15/19 21:38 Dose: 60 mg Documented by: Potassium Chloride (Potassium Chloride Oral Liquid) 40 meq GT BID [facility] Last Admin: 08/15/19 21:38 Dose: 40 meq Documented by: Spironolactone (Aldactone -) 50 mg GT BID [facility] Last Admin: 08/15/19 21:37 Dose: 50 mg Documented by: Topiramate (Topamax -) 200 mg GT TID [facility] Last Admin: 08/16/19 06:40 Dose: 200 mg Documented by: Zinc Sulfate (Orazinc -) 220 mg GT BID [facility] Last Admin: 08/15/19 21:39 Dose: 220 mg Documented by: - Objective Vital Signs: Vital Signs Temperature 99.3 F 08/16/19 06:00 Pulse Rate 109 H 08/16/19 06:00 Respiratory Rate 30 H 08/16/19 06:48 Blood Pressure 138/89 08/16/19 06:00 O2 Sat by Pulse Oximetry (%) 100 08/16/19 02:23 General: Young man status post trach not in distress HEENT mucous membranes moist, no anemia, no jaundice, PERRLA, no nystagmus Neck: Status post trach Chest: bilateral basal rales. CVS: S1-S2 no murmur/gallop/rub Abdomen: Nondistended, soft, bowel sounds present. 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 Code(s): J96.01 - ACUTE RESPIRATORY FAILURE WITH HYPOXIA (2) Bacteremia Assessment/Plan: Patient grew staph epi on multiple cultures on 6 weeks of IV vancomycin today is day 32nd [on hold since yesterday due to supratherapeutic level] last culture done on August 08 shows no growth so far. Also on empiric meropenem, will follow- up ID recommendations. Code(s): R78.81 - BACTEREMIA (3) Fever Assessment/Plan: Patient spiked fever despite vancomycin day 32st and meropenem day 5th and discussed with ID recommended panculture, fraser scan including sinus, stool C. difficile negative we will follow-up ID recommendation , yesterday vancomycin level supra-therapeutic 37, today follow-up Vanco trough is 17, Code(s): R50.9 - FEVER, UNSPECIFIED (4) Seizure disorder Assessment/Plan: Continue seizure medications Code(s): G40.909 - EPILEPSY, UNSP, NOT INTRACTABLE, WITHOUT STATUS EPILEPTICUS (5) Diarrhea Assessment/Plan: Patient has diarrhea C. difficile negative will hold laxative and observe Code(s): R19.7 - DIARRHEA, UNSPECIFIED (6) DVT prophylaxis Assessment/Plan: Patient was on therapeutic dose of anticoagulation, DVT and CT scan negative for PE, patient took total 8 weeks of full dose anticoagulation, currently on hold due to questionable GI bleed will switch to p.o. Prevacid and Protonix and resume DVT prophylaxis Code(s): Z29.9 - ENCOUNTER FOR PROPHYLACTIC MEASURES, UNSPECIFIED (7) Pneumonia due to COVID-19 virus Assessment/Plan: COVID-19 pneumonia complicated with respiratory failure received hydroxych loroquine , Actemra, convalescent plasma, multiple course of antibiotic, completed treatment fungemia CT scan shows persistent changes Code(s): U07.1 - COVID POSITIVE; J12.89 - OTHER VIRAL PNEUMONIA
[2019-08-16 08:16] LABS: BASO % 0.9 % (0-2.0); EOS % 4.9 % (0-4.5); HEMOGLOBIN 9.6 GM/dL (11.7-16.9); LYMPH % 18.2 % (8-40); MCH 28.5 pg (25.7-33.7); MCHC 32.1 g/dl (32.0-35.9); MEAN CELL VOLUME 88.7 fl (80-96); MEAN PLT VOLUME 9.5 fl (7.5-11.1); PLATELET COUNT 379 K/MM3 (134-434); RBC 3.38 M/mm3 (4.00-5.60); RDW 17.6 % (11.9-15.9); WHITE BLOOD COUNT 15.1 K/mm3 (4.0-10.0)
[2019-08-16 08:40] LABS: ALBUMIN 2.8 g/dl (3.4-5.0); BILIRUBIN,TOTAL 0.4 mg/dL (0.2-1); BLOOD UREA NITROGEN 20.7 mg/dL (7-18); CALCIUM 8.9 mg/dL (8.5-10.1); CREATININE 0.5 mg/dL (0.55-1.3); POTASSIUM 3.9 mmol/L (3.5-5.1); TOT PROT 6.8 g/dl (6.4-8.2)
[2019-08-16] MEDS ORDERED: PT OWN MED DRAWER 7, Y5N ONE (11:08)
[2019-08-16] MEDS: ENOXAPARIN NA (PORCINE) 40 MG/0.4 ML DISP.SYRIN SQ SCH (11:13)
[2019-08-16] MEDS: ZINC SULFATE 220 MG CAPSULE (FP) GT SCH ×2 (11:14→21:45)
[2019-08-16] MEDS: AMINO ACIDS/PROTEIN HYDROLYS 30 ML LIQUID.PKT GT SCH ×2 (11:17→17:36)
[2019-08-16] MEDS: CHOLECALCIFEROL (VIT D3) 400 UNIT (10 MCG) TABLET NR SCH (11:18)
[2019-08-16] MEDS: Lacosamide 50 MG/5 ML ORAL SOLUTION UNIT CUPS PO SCH ×2 (11:18→21:46)
[2019-08-16] MEDS: SPIRONOLACTONE 25 MG TABLET GT SCH ×2 (11:18→21:46)
[2019-08-16] MEDS: PHENobarbital 20 MG/5 ML UNIT-DOSE CUP NGT SCH ×2 (11:20→21:44)
[2019-08-16] MEDS: FUROSEMIDE 40 MG/5 ML UNIT-DOSE CUP PO SCH (11:20)
[2019-08-16] MEDS: ASCORBIC ACID 500 MG/5 ML UNIT DOSE CUP GT SCH (11:21)
[2019-08-16] MEDS: levETIRAcetam 500 MG/5 ML ORAL SOLUTION (UNIT-DOSE CUPS) NGT SCH ×2 (11:22→21:46)
[2019-08-16] MEDS: POTASSIUM CHLORIDE ORAL LIQUID 20 MEQ/15 ML GT SCH ×2 (11:26→21:50)
[2019-08-16] MEDS: PANTOPRAZOLE SODIUM 40 MG VIAL IVPUSH SCH (11:27)
--- NOTE | 2019-08-16 12:53 | PN ---
Progress Note (short form) - Note Progress Note: rmore alert and responsive ct scan head/c/a//p sphenoid sinusitis bilateral air space disease with small pleural effusions cdiff negative fevers trending down Vital Signs Period Temp Pulse Resp BP Sys/Ortiz Pulse Ox Last 24 Hr 98.6 F-100.7 F 99-139 20-39 134-147/87-97 100-100 cor-rrr lungs decreased bs at bases abd soft,nt ext no edema CBC, BMP 08/16/19 08:05 08/16/19 08:05 Microbiology 08/14/19 14:50 Gram Stain - Final Sputum - Endotrachea Suction/Ventilator Sputum Culture - Preliminary NORMAL RESPIRATORY RICKY 08/14/19 14:49 Clostridioides difficile Antigen - Final Stool Clostridioides difficile Toxin Assay - Final 08/12/19 13:10 Blood Culture - Preliminary Blood - Peripheral Venous NO GROWTH OBTAINED AFTER 72 HOURS, INCUBATION TO CONTINUE FOR 2 DAYS. 08/12/19 13:00 Blood Culture - Preliminary Blood - Peripheral Venous NO GROWTH OBTAINED AFTER 72 HOURS, INCUBATION TO CONTINUE FOR 2 DAYS. vanco trough 17 covid pcr negative (repeat) quantiferon negative imp/reccd recurrent fevers-sphenoid sinusitis, scans, cultures so far unrevealing s/p trach sinusitis continue meropenem day #5 check crp in am fevers trending down ARDS/pneumonia- sputum MRSA bacteremia- recurrent staph epi bacteremia- ?endocarditis- echo unrevealing- continue vancomycin, day #32 -plan 6 weeks fungemia- quita lusitanae- has completed 14 days cancidas- repeat cultures negative covid 19 positive -repeat pcr negative s/p convalescent plasma s/p tocilizumab MRSA isolation for positive sputum culture- esbl isolation for prior sputum ecoli esbl trend lfts-trending down-consider sonogram of liver/gallbladder Problem List - Problems (1) Suspected COVID-19 virus infection Code(s): R68.89 - OTHER GENERAL SYMPTOMS AND SIGNS (2) Acute respiratory failure with hypoxia Code(s): J96.01 - ACUTE RESPIRATORY FAILURE WITH HYPOXIA (3) Bacteremia Code(s): R78.81 - BACTEREMIA
[2019-08-16] MEDS: VANCOMYCIN HCL 1,500 MG in DEXTROSE 5%-WATER - 500 ML IVPB SCH (13:47)
[2019-08-16] MEDS ORDERED: METOPROLOL TARTRATE 25 MG TABLET (FP) PO ONE (22:55)
[2019-08-17] MEDS ORDERED: DEXTROSE 5%-WATER 100 ML IVPB ONE ×3 (01:08→17:43)
[2019-08-17] MEDS ORDERED: MEROPENEM 1 GM VIAL (RESTRICTED TO ID) IVPB ONE ×3 (01:08→17:42)
[2019-08-17] MEDS: MEROPENEM 1 GM in DEXTROSE 5%-WATER 100 ML IVPB SCH ×3 (01:35→18:47)
[2019-08-17 02:44] LABS: HEMATOCRIT 30.9 % (35.4-49); HEMOGLOBIN 9.9 GM/dL (11.7-16.9); MCH 28.7 pg (25.7-33.7); MCHC 32.1 g/dl (32.0-35.9); MEAN CELL VOLUME 89.4 fl (80-96); MEAN PLT VOLUME 10.5 fl (7.5-11.1); PLATELET COUNT 426 K/MM3 (134-434); RBC 3.46 M/mm3 (4.00-5.60); RDW 17.5 % (11.9-15.9); WHITE BLOOD COUNT 14.3 K/mm3 (4.0-10.0)
[2019-08-17 03:24] LABS: BLOOD UREA NITROGEN 21.4 mg/dL (7-18); CALCIUM 8.6 mg/dL (8.5-10.1); CREATININE 0.6 mg/dL (0.55-1.3); MAGNESIUM 2.5 mg/dL (1.8-2.4); PHOSPHOROUS 4.5 mg/dL (2.5-4.9); POTASSIUM 4.3 mmol/L (3.5-5.1)
[2019-08-17] MEDS: TOPIRAMATE 200 MG TABLET GT SCH ×3 (05:20→23:04)
[2019-08-17] MEDS: AMINO ACIDS/PROTEIN HYDROLYS 30 ML LIQUID.PKT GT SCH ×2 (08:04→18:00)
--- NOTE | 2019-08-17 08:10 | PN ---
Teaching Attending Note Name of Resident: Tomi Moya ATTENDING PHYSICIAN STATEMENT I saw and evaluated the patient. I reviewed the resident's note and discussed the case with the resident. I agree with the resident's findings and plan as documented. SUBJECTIVE: Last night patient has tachycardia and tachypnea OBJECTIVE: Vital Signs Temperature 98.8 F 08/17/19 06:00 Pulse Rate 125 H 08/17/19 06:00 Respiratory Rate 38 H 08/17/19 06:00 Blood Pressure 134/83 08/17/19 06:00 O2 Sat by Pulse Oximetry (%) 100 08/17/19 04:43 General: Young man status post trach not in distress HEENT mucous membranes moist, no anemia, no jaundice, PERRLA, no nystagmus Neck: Status post trach Chest: bilateral basal rales. CVS: S1-S2 no murmur/gallop/rub Abdomen: Nondistended, soft, bowel sounds present. 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 coli,, persistent staph epi bacteremia normal echocardiogram on vancomycin as per ID total 6 weeks of Vanco today day 33st , patient did spike fever on August 09, 2019 put on Zosyn, remained afebrile but persistent elevation of WBC. ID/pulmonary on the case, switched to meropenem August 12, 2019, stool C. difficile is negative temperature ranges improving so far no source of infection. Last night patient developed tachycardia spiked 101 cultures are in progress vancomycin resumed yesterday Problem List - Problems (1) Acute respiratory failure with hypoxia Assessment/Plan: Due to COVID pneumonia status post intubation now on trach, vent dependent , vent management as per critical care. Code(s): J96.01 - ACUTE RESPIRATORY FAILURE WITH HYPOXIA (2) Bacteremia Assessment/Plan: Patient grew staph epi on multiple cultures on 6 weeks of IV vancomycin today is day 32nd [on hold since yesterday due to supratherapeutic level] last culture done on August 08 shows no growth so far. Also on empiric meropenem, will follow- up ID recommendations. Code(s): R78.81 - BACTEREMIA (3) Fever Assessment/Plan: Patient spiked fever despite vancomycin day 32st and meropenem day 5th and discussed with ID recommended panculture, fraser scan including sinus, stool C. difficile negative we will follow-up ID recommendation , yesterday vancomycin level supra-therapeutic 37, today follow-up Vanco trough is 17, Code(s): R50.9 - FEVER, UNSPECIFIED (4) Seizure disorder Assessment/Plan: Continue seizure medications Code(s): G40.909 - EPILEPSY, UNSP, NOT INTRACTABLE, WITHOUT STATUS EPILEPTICUS (5) Diarrhea Assessment/Plan: Patient has diarrhea C. difficile negative will hold laxative and observe Code(s): R19.7 - DIARRHEA, UNSPECIFIED (6) DVT prophylaxis Assessment/Plan: Patient was on therapeutic dose of anticoagulation, DVT and CT scan negative for PE, patient took total 8 weeks of full dose anticoagulation, currently on hold due to questionable GI bleed will switch to p.o. Prevacid and Protonix and resume DVT prophylaxis Code(s): Z29.9 - ENCOUNTER FOR PROPHYLACTIC MEASURES, UNSPECIFIED (7) Pneumonia due to COVID-19 virus Assessment/Plan: COVID-19 pneumonia complicated with respiratory failure received hydroxychloroquine , Actemra, convalescent plasma, multiple course of antibiot ic, completed treatment fungemia CT scan shows persistent changes Code(s): U07.1 - COVID POSITIVE; J12.89 - OTHER VIRAL PNEUMONIA (8) Tachycardia Assessment/Plan: Can be multifactorial , hypoxic respiratory failure, hypoxia, fever we will add low-dose Seroquel Problems reviewed: Yes Code(s): R00.0 - TACHYCARDIA, UNSPECIFIED
[2019-08-17 09:19] LABS: BASO % 0.8 % (0-2.0); EOS % 5.2 % (0-4.5); HEMATOCRIT 31.2 % (35.4-49); HEMOGLOBIN 9.8 GM/dL (11.7-16.9); LYMPH % 18.9 % (8-40); MCH 28.5 pg (25.7-33.7); MCHC 31.5 g/dl (32.0-35.9); MEAN CELL VOLUME 90.6 fl (80-96); MEAN PLT VOLUME 10.9 fl (7.5-11.1); MONO % 7.7 % (3.8-10.2); NEUT % 67.4 % (42.8-82.8); PLATELET COUNT 411 K/MM3 (134-434); RBC 3.44 M/mm3 (4.00-5.60); RDW 17.3 % (11.9-15.9); WHITE BLOOD COUNT 14.1 K/mm3 (4.0-10.0)
--- NOTE | 2019-08-17 09:19 | EKG ---
Test Reason : Blood Pressure : / mmHG Vent. Rate : 130 BPM Atrial Rate : 130 BPM P-R Int : 126 ms QRS Dur : 070 ms QT Int : 292 ms P-R-T Axes : 050 016 036 degrees QTc Int : 429 ms SINUS TACHYCARDIA POSSIBLE LEFT ATRIAL ENLARGEMENT rSr' V1 BORDERLINE ECG WHEN COMPARED WITH ECG OF 25-JUN-2019 08:54, VENT. RATE HAS INCREASED BY 68 BPM QUESTIONABLE CHANGE IN QRS DURATION Confirmed by Megan Jimenez ([id number]) on 08/17/2019 9:18:48 AM Referred By: Confirmed By:Megan Jimenez
[2019-08-17] MEDS ORDERED: PT OWN MED DRAWER 7, Y5N ONE ×3 (09:23→14:16)
[2019-08-17 09:37] LABS: BLOOD UREA NITROGEN 19.7 mg/dL (7-18); CALCIUM 9.1 mg/dL (8.5-10.1); CREATININE 0.5 mg/dL (0.55-1.3); POTASSIUM 3.8 mmol/L (3.5-5.1)
--- NOTE | 2019-08-17 09:45 | PN ---
Progress Note, Physician History of Present Illness: pulmonary awake,min responsive on vent support ac mode, tmax 101.2 - Current Medication List Current Medications: Active Medications Acetaminophen (Tylenol Oral Solution -) 650 mg GT Q6H PRN PRN Reason: FEVER Last Admin: 08/16/19 23:54 Dose: 650 mg Documented by: Albuterol/Ipratropium (Duoneb -) 1 amp NEB Q6H PRN PRN Reason: SHORTNESS OF BREATH Amino Acids (Prosource No Carb Liquid Pkt) 30 ml GT BID@0800,1730 [facility] Last Admin: 08/17/19 08:04 Dose: 30 ml Documented by: Artificial Tears (Artificial Tears) 1 drop OU Q12H PRN PRN Reason: DRY EYES Last Admin: 08/10/19 10:43 Dose: 1 drop Documented by: Ascorbic Acid (Vitamin C Oral Solution -) 500 mg GT DAILY [facility] Last Admin: 08/16/19 11:21 Dose: 500 mg Documented by: Cholecalciferol (Vitamin D3 -) 800 unit NR DAILY [facility] Last Admin: 08/16/19 11:18 Dose: 800 unit Documented by: Docusate Sodium (Colace Liquid -) 100 mg PO DAILY PRN PRN Reason: CONSTIPATION Enoxaparin Sodium (Lovenox -) 40 mg SQ DAILY [facility] Last Admin: 08/16/19 11:13 Dose: 40 mg Documented by: Furosemide (Lasix Oral Solution -) 40 mg PO DAILY [facility] Last Admin: 08/16/19 11:20 Dose: 40 mg Documented by: Meropenem 1 gm/ Dextrose 100 mls @ 200 mls/hr IVPB Q8H-IV TIKI Last Admin: 08/17/19 01:35 Dose: 200 mls/hr Documented by: Vancomycin HCl 1,500 mg/ (Dextrose) 500 mls @ 250 mls/hr IVPB Q24H TIKI; Protocol Last Admin: 08/16/19 13:47 Dose: 250 mls/hr Documented by: Lacosamide (Vimpat Liquid -) 200 mg PO BID [facility] Last Admin: 08/16/19 21:46 Dose: 200 mg Documented by: Levetiracetam (Keppra Oral Solution -) 1,000 mg NGT BID [facility] Last Admin: 08/16/19 21:46 Dose: 1,000 mg Documented by: Lorazepam (Ativan Injection -) 1 mg IVPUSH Q6H PRN PRN Reason: AGITATION Last Admin: 08/16/19 23:54 Dose: 1 mg Documented by: Nystatin (Nystatin Oral Suspension -) 500,000 units PO Q6HPO PRN PRN Reason: ORAL PAIN/MOUTH SORES Pantoprazole Sodium (Protonix Iv) 40 mg IVPUSH DAILY [facility] Last Admin: 08/16/19 11:27 Dose: 40 mg Documented by: Phenobarbital (Phenobarbital Liquid -) 60 mg NGT BID [facility] Last Admin: 08/16/19 21:44 Dose: 60 mg Documented by: Potassium Chloride (Potassium Chloride Oral Liquid) 40 meq GT BID [facility] Last Admin: 08/16/19 21:50 Dose: 40 meq Documented by: Spironolactone (Aldactone -) 50 mg GT BID [facility] Last Admin: 08/16/19 21:46 Dose: 50 mg Documented by: Topiramate (Topamax -) 200 mg GT TID [facility] Last Admin: 08/17/19 05:20 Dose: 200 mg Documented by: Zinc Sulfate (Orazinc -) 220 mg GT BID [facility] Last Admin: 08/16/19 21:45 Dose: 220 mg Documented by: - Objective Vital Signs: Vital Signs Temperature 98.8 F 08/17/19 06:00 Pulse Rate 125 H 08/17/19 06:00 Respiratory Rate 38 H 08/17/19 06:00 Blood Pressure 134/83 08/17/19 06:00 O2 Sat by Pulse Oximetry (%) 100 08/17/19 04:43 Constitutional: Yes: Well Nourished, Calm Eyes: Yes: WNL HENT: Yes: WNL Neck: Yes: Supple (trach) Cardiovascular: Yes: Regular Rate and Rhythm, S1, S2 Respiratory: Yes: Rhonchi (scattered maeve rhonchi) Gastrointestinal: Yes: Normal Bowel Sounds, Soft Extremities: Yes: WNL Edema: No Labs: CBC, BMP 08/17/19 07:50 08/17/19 07:50 INR, PTT INR 1.01 (0.83-1.09) 07/28/19 05:00 Problem List - Problems (1) COVID-19 Code(s): U07.1 - COVID POSITIVE (2) COVID-19 Code(s): U07.1 - COVID POSITIVE (3) Acute respiratory failure with hypoxia Code(s): J96.01 - ACUTE RESPIRATORY FAILURE WITH HYPOXIA (4) Seizure disorder Code(s): G40.909 - EPILEPSY, UNSP, NOT INTRACTABLE, WITHOUT STATUS EPILEPTICUS (5) Status epilepticus Code(s): G40.901 - EPILEPSY, UNSP, NOT INTRACTABLE, WITH STATUS EPILEPTICUS Assessment/Plan ASSESSMENT AND PLAN: Acute Hypoxic and Hypercapneic Respiratory Failure COVID19 Pneumonia E Coli Pneumonia Fungenmia Bacteremia Septic Shock Seizure Disorder Mental Retardation ABNORMAL LFTS fever - Ativan PRN - ABX per ID - antiepileptics - lasix, aldactone - monitor urine output, creatinine - low tidal volume ventilation - titrate FiO2, PEEP to keep SpO2 >90% - spontaeneous breathing trials as tolerated - enteral feeds: Should have PEG insertion - DVT/GI prophylaxis - monitor lfts - inhaled bronchodilators Dr MARTINEZ
[2019-08-17] MEDS: POTASSIUM CHLORIDE ORAL LIQUID 20 MEQ/15 ML GT SCH ×2 (09:47→21:36)
[2019-08-17] MEDS: PHENobarbital 20 MG/5 ML UNIT-DOSE CUP NGT SCH ×2 (09:48→21:31)
[2019-08-17] MEDS: levETIRAcetam 500 MG/5 ML ORAL SOLUTION (UNIT-DOSE CUPS) NGT SCH ×2 (09:50→21:33)
[2019-08-17] MEDS: Lacosamide 50 MG/5 ML ORAL SOLUTION UNIT CUPS PO SCH ×2 (09:50→21:32)
[2019-08-17] MEDS: PANTOPRAZOLE SODIUM 40 MG VIAL IVPUSH SCH (09:50)
[2019-08-17] MEDS: SPIRONOLACTONE 25 MG TABLET GT SCH ×2 (09:51→21:33)
[2019-08-17] MEDS: ENOXAPARIN NA (PORCINE) 40 MG/0.4 ML DISP.SYRIN SQ SCH (09:51)
[2019-08-17] MEDS: ZINC SULFATE 220 MG CAPSULE (FP) GT SCH ×2 (09:52→21:33)
--- NOTE | 2019-08-17 10:56 | PN ---
Progress Note, [facility] - Note Progress Note: Selected Entries 08/16/19 08/16/19 08/16/19 02:00 03:20 04:10 Lunch Temperature 99.0 F 100.7 F H Blood Pressure 147/91 144/92 O2 Sat by Pulse Oximetry (%) Fraction of Inspired Oxygen (FIO2) 08/16/19 08/16/19 08/16/19 04:13 06:00 09:00 Lunch Temperature 100.2 F H 99.3 F 98.8 F Blood Pressure 144/92 138/89 145/97 O2 Sat by Pulse Oximetry (%) Fraction of Inspired Oxygen (FIO2) 08/16/19 08/16/19 08/16/19 11:37 14:40 17:00 Lunch NPO Temperature 99.4 F 99.3 F 100.3 F H Blood Pressure 153/90 144/85 O2 Sat by Pulse Oximetry (%) Fraction of Inspired Oxygen (FIO2) 08/16/19 08/16/19 08/16/19 18:31 21:43 23:52 Lunch Temperature 98.0 F 100.9 F H Blood Pressure 144/85 147/90 O2 Sat by Pulse Oximetry (%) Fraction of Inspired Oxygen (FIO2) 08/17/19 08/17/19 08/17/19 00:25 02:00 04:43 Lunch Temperature 101.2 F H Blood Pressure 137/88 O2 Sat by Pulse 100 100 Oximetry (%) Fraction of 40 40 Inspired Oxygen (FIO2) 08/17/19 08/17/19 06:00 08:20 Lunch Temperature 98.8 F Blood Pressure 134/83 O2 Sat by Pulse 100 Oximetry (%) Fraction of 40 Inspired Oxygen (FIO2) Laboratory Tests 07/19/19 08/14/19 08/16/19 11:30 07:20 08:05 WBC 13.5 H 15.1 H COVID-19 ([facility]) Not detected 08/17/19 02:00 WBC 14.3 H COVID-19 ([facility]) On NGT feedings. PEG, with goal for possible weaning in future, when medically stable
[2019-08-17] MEDS: FUROSEMIDE 40 MG/5 ML UNIT-DOSE CUP PO SCH (11:20)
[2019-08-17] MEDS: ASCORBIC ACID 500 MG/5 ML UNIT DOSE CUP GT SCH (11:20)
[2019-08-17] MEDS: CHOLECALCIFEROL (VIT D3) 400 UNIT (10 MCG) TABLET NR SCH (11:21)
--- NOTE | 2019-08-17 11:48 | PN ---
Physical Exam: SUBJECTIVE: Patient seen and examined at bedside. Continues to have tachycardia, tachypnea, and fever. Cultures were drawn. OBJECTIVE: Vital Signs Period Temp Pulse Resp BP Sys/Ortiz Pulse Ox Last 24 Hr 98.0 F-101.2 F 118-130 33-42 134-153/83-90 100-100 Gen: intubated, tachypnic, unresponsive HEENT: NCAT, moist membranes Neck: trach tube in place Cardio: tachycardic, regular, no mrg noted Pulm: cta b/l Abd: Soft, nondistended Laboratory Results - last 24 hr 08/17/19 08/17/19 08/17/19 02:00 02:00 02:00 WBC 14.3 H RBC 3.46 L Hgb 9.9 L Hct 30.9 L MCV 89.4 MCH 28.7 MCHC 32.1 RDW 17.5 H Plt Count 426 MPV 10.5 D Absolute Neuts (auto) Neutrophils % Lymphocytes % Monocytes % Eosinophils % Basophils % Nucleated RBC % Sodium Potassium Chloride Carbon Dioxide Anion Gap BUN Creatinine Est GFR (CKD-EPI)AfAm Est GFR (CKD-EPI)NonAf Random Glucose Lactic Acid 1.0 Calcium Phosphorus Cancelled Magnesium Cancelled C-Reactive Protein 08/17/19 08/17/19 08/17/19 02:00 07:50 07:50 WBC 14.1 H RBC 3.44 L Hgb 9.8 L Hct 31.2 L MCV 90.6 MCH 28.5 MCHC 31.5 L RDW 17.3 H Plt Count 411 MPV 10.9 Absolute Neuts (auto) 9.5 H Neutrophils % 67.4 Lymphocytes % 18.9 Monocytes % 7.7 Eosinophils % 5.2 H Basophils % 0.8 Nucleated RBC % 0 Sodium 142 142 Potassium 4.3 3.8 Chloride 112 H 111 H Carbon Dioxide 21 22 Anion Gap 9 10 BUN 21.4 H 19.7 H Creatinine 0.6 0.5 L Est GFR (CKD-EPI)AfAm 147.82 159.33 Est GFR (CKD-EPI)NonAf 127.55 137.47 Random Glucose 127 H 123 H Lactic Acid Calcium 8.6 9.1 Phosphorus 4.5 Magnesium 2.5 H C-Reactive Protein 6.1 H Active Medications Generic Name Dose Route Start Last Admin Trade Name Freq PRN Reason Stop Dose Admin Acetaminophen 650 mg 08/08/19 18:05 08/16/19 23:54 Tylenol Oral Solution - GT 650 mg Q6H PRN Administration FEVER Albuterol/Ipratropium 1 amp 08/16/19 13:19 Duoneb - NEB Q6H PRN SHORTNESS OF BREATH Amino Acids 30 ml 08/09/19 08:00 08/17/19 08:04 Prosource No Carb Liquid Pkt GT 30 ml BID@0800,1730 T[facility] Administration Artificial Tears 1 drop 08/08/19 18:05 08/10/19 10:43 Artificial Tears OU 1 drop Q12H PRN Administration DRY EYES Ascorbic Acid 500 mg 08/09/19 10:00 08/17/19 11:20 Vitamin C Oral Solution - GT 500 mg DAILY TIKI Administration Cholecalciferol 800 unit 08/09/19 10:00 08/17/19 11:21 Vitamin D3 - NR 800 unit DAILY [facility]I Administration Docusate Sodium 100 mg 08/09/19 09:46 Colace Liquid - PO DAILY PRN CONSTIPATION Enoxaparin Sodium 40 mg 08/15/19 10:00 08/17/19 09:51 Lovenox - SQ 40 mg DAILY TIKI Administration Furosemide 40 mg 08/12/19 10:00 08/17/19 11:20 Lasix Oral Solution - PO 40 mg DAILY TIKI Administration Meropenem 1 gm/ Dextrose 100 mls @ 200 mls/hr 08/12/19 12:00 08/17/19 09:49 IVPB 200 mls/hr Q8H-IV TIKI Administration Vancomycin HCl 1,500 mg/ 500 mls @ 250 mls/hr 08/16/19 13:00 08/16/19 13:47 Dextrose IVPB 250 mls/hr Q24H TIKI Administration Protocol Lacosamide 200 mg 08/10/19 22:00 08/17/19 09:50 Vimpat Liquid - PO 200 mg BID TIKI Administration Levetiracetam 1,000 mg 08/10/19 22:00 08/17/19 09:50 Keppra Oral Solution - NGT 1,000 mg BID TIKI Administration Lorazepam 1 mg 08/12/19 17:16 08/16/19 23:54 Ativan Injection - IVPUSH 1 mg Q6H PRN Administration AGITATION Nystatin 500,000 units 08/08/19 18:05 Nystatin Oral Suspension - PO Q6HPO PRN ORAL PAIN/MOUTH SORES Pantoprazole Sodium 40 mg 08/14/19 11:45 08/17/19 09:50 Protonix Iv IVPUSH 40 mg DAILY TIKI Administration Phenobarbital 60 mg 08/10/19 22:00 08/17/19 09:48 Phenobarbital Liquid - NGT 60 mg BID TIKI Administration Potassium Chloride 40 meq 08/08/19 22:00 08/17/19 09:47 Potassium Chloride Oral Liquid GT 40 meq BID TIKI Administration Spironolactone 50 mg 08/10/19 22:00 08/17/19 09:51 Aldactone - GT 50 mg BID TIKI Administration Topiramate 200 mg 08/08/19 22:00 08/17/19 05:20 Topamax - GT 200 mg TID TIKI Administration Zinc Sulfate 220 mg 08/08/19 22:00 08/17/19 09:52 Orazinc - GT 220 mg BID TIKI Administration ASSESSMENT/PLAN: 39 y/o M with PMH Mental Retardation and epilepsy who presented to ED initially with SOB and hypoxia requiring intubation, admitted to hospital for hypoxic respiratory failure 2/2 to covid-19. Hospital course complicated by bacteremia, fungemia, MRSA PNA, now with recurrent fever. Acute Resp Failure 2/2 COVID-19 -s/p trach, convalescent plasma, tocilizumab -on AC vent settings -Pulm on board -persistent tachypnea recurrent fever/tachycardia with Bacteremia/fungemia -recurrent fever today -BCx (08/04/2019) pos for Staph capitis -repeat BCx neg, C diff neg, UCx neg -BCx (07/12/2019) pos for fungi. Received cancidas. Repeat BCx neg -BCx (08/17/2019) pending -Echo 07/21/2019 did not reveal vegetations -Plan for 6 weeks total Vanco (day 33) Epilepsy -c/w lorazepam prn, leviteracitam, phenobarbitol, lacosamide, topiramate DVT ppx Visit type - Emergency Visit Emergency Visit: No - New Patient This patient is new to me today: Yes Date on this admission: 08/17/19 - Critical Care Critical Care patient: No ATTENDING PHYSICIAN STATEMENT I saw and evaluated the patient. I reviewed the resident's note and discussed the case with the resident. I agree with the resident's findings and plan as documented. SUBJECTIVE: OBJECTIVE: ASSESSMENT AND PLAN:
--- NOTE | 2019-08-17 12:51 | PN ---
Progress Note (short form) - Note Progress Note: rmore alert and responsive ct scan head/c/a//p sphenoid sinusitis bilateral air space disease with small pleural effusions cdiff negative fevers trending down intermittent fevers persist chest cta no pe but persistent bilateral upper lobe infiltrates Vital Signs Period Temp Pulse Resp BP Sys/Ortiz Pulse Ox Last 24 Hr 98.0 F-101.2 F 101-130 34-42 134-153/83-98 100-100 cor-rrr lungs decresed bs at bases abd soft,nt ext no edema CBC, BMP 08/17/19 07:50 08/17/19 07:50 no lfts Microbiology 08/14/19 14:50 Sputum - Endotrachea Suction/Ventilator Gram Stain - Final 08/14/19 14:50 Sputum - Endotrachea Suction/Ventilator Sputum Culture - Final NORMAL RESPIRATORY RICKY 08/12/19 13:00 Blood - Peripheral Venous Blood Culture - Preliminary NO GROWTH OBTAINED AFTER 96 HOURS, INCUBATION TO CONTINUE FOR 1 DAYS. 08/12/19 13:10 Blood - Peripheral Venous Blood Culture - Preliminary NO GROWTH OBTAINED AFTER 96 HOURS, INCUBATION TO CONTINUE FOR 1 DAYS. covid pcr negative (repeat) quantiferon negative imp/reccd recurrent fevers-sphenoid sinusitis, s/p trach sinusitis continue meropenem day #7 sonogram liver r/o biliary disease duplex legs r/o dvt sputum for afb given persistent upper lobe infiltrates and fever s/p tocilizumab ARDS/pneumonia- sputum MRSA bacteremia- recurrent staph epi bacteremia- ?endocarditis- echo unrevealing- continue vancomycin, day #33 -plan 6 weeks fungemia- quita lusitanae- has completed 14 days cancidas- repeat cultures negative covid 19 positive -repeat pcr negative s/p convalescent plasma s/p tocilizumab MRSA isolation for positive sputum culture- esbl isolation for prior sputum ecoli esbl Problem List - Problems (1) Suspected COVID-19 virus infection Code(s): R68.89 - OTHER GENERAL SYMPTOMS AND SIGNS (2) Acute respiratory failure with hypoxia Code(s): J96.01 - ACUTE RESPIRATORY FAILURE WITH HYPOXIA (3) Bacteremia Code(s): R78.81 - BACTEREMIA
--- NOTE | 2019-08-17 13:35 | PN ---
Progress Note, Physician History of Present Illness: Pt seen and examined. He appears comfortable. - Current Medication List Current Medications: Active Medications Acetaminophen (Tylenol Oral Solution -) 650 mg GT Q6H PRN PRN Reason: FEVER Last Admin: 08/16/19 23:54 Dose: 650 mg Documented by: Albuterol/Ipratropium (Duoneb -) 1 amp NEB Q6H PRN PRN Reason: SHORTNESS OF BREATH Amino Acids (Prosource No Carb Liquid Pkt) 30 ml GT BID@0800,1730 [facility] Last Admin: 08/17/19 08:04 Dose: 30 ml Documented by: Artificial Tears (Artificial Tears) 1 drop OU Q12H PRN PRN Reason: DRY EYES Last Admin: 08/10/19 10:43 Dose: 1 drop Documented by: Ascorbic Acid (Vitamin C Oral Solution -) 500 mg GT DAILY [facility] Last Admin: 08/17/19 11:20 Dose: 500 mg Documented by: Cholecalciferol (Vitamin D3 -) 800 unit NR DAILY [facility] Last Admin: 08/17/19 11:21 Dose: 800 unit Documented by: Docusate Sodium (Colace Liquid -) 100 mg PO DAILY PRN PRN Reason: CONSTIPATION Enoxaparin Sodium (Lovenox -) 40 mg SQ DAILY [facility]I Last Admin: 08/17/19 09:51 Dose: 40 mg Documented by: Furosemide (Lasix Oral Solution -) 40 mg PO DAILY [facility] Last Admin: 08/17/19 11:20 Dose: 40 mg Documented by: Meropenem 1 gm/ Dextrose 100 mls @ 200 mls/hr IVPB Q8H-IV [facility]IKI Last Admin: 08/17/19 09:49 Dose: 200 mls/hr Documented by: Vancomycin HCl 1,500 mg/ (Dextrose) 500 mls @ 250 mls/hr IVPB Q24H TIKI; Protocol Last Admin: 08/16/19 13:47 Dose: 250 mls/hr Documented by: Lacosamide (Vimpat Liquid -) 200 mg PO BID [facility] Last Admin: 08/17/19 09:50 Dose: 200 mg Documented by: Levetiracetam (Keppra Oral Solution -) 1,000 mg NGT BID [facility] Last Admin: 08/17/19 09:50 Dose: 1,000 mg Documented by: Lorazepam (Ativan Injection -) 1 mg IVPUSH Q6H PRN PRN Reason: AGITATION Last Admin: 08/16/19 23:54 Dose: 1 mg Documented by: Nystatin (Nystatin Oral Suspension -) 500,000 units PO Q6HPO PRN PRN Reason: ORAL PAIN/MOUTH SORES Pantoprazole Sodium (Protonix Iv) 40 mg IVPUSH DAILY [facility] Last Admin: 08/17/19 09:50 Dose: 40 mg Documented by: Phenobarbital (Phenobarbital Liquid -) 60 mg NGT BID [facility] Last Admin: 08/17/19 09:48 Dose: 60 mg Documented by: Potassium Chloride (Potassium Chloride Oral Liquid) 40 meq GT BID [facility] Last Admin: 08/17/19 09:47 Dose: 40 meq Documented by: Spironolactone (Aldactone -) 50 mg GT BID [facility] Last Admin: 08/17/19 09:51 Dose: 50 mg Documented by: Topiramate (Topamax -) 200 mg GT TID [facility] Last Admin: 08/17/19 12:59 Dose: 200 mg Documented by: Zinc Sulfate (Orazinc -) 220 mg GT BID [facility] Last Admin: 08/17/19 09:52 Dose: 220 mg Documented by: - Objective Vital Signs: Vital Signs Temperature 98.7 F 08/17/19 10:00 Pulse Rate 101 H 08/17/19 10:00 Respiratory Rate 35 H 08/17/19 10:00 Blood Pressure 138/98 08/17/19 10:00 O2 Sat by Pulse Oximetry (%) 100 08/17/19 08:20 Constitutional: Yes: Calm Eyes: Yes: Conjunctiva Clear Cardiovascular: Yes: S1, S2 Respiratory: Yes: Mechanically Ventilated Gastrointestinal: Yes: Soft Genitourinary: Yes: Incontinence Musculoskeletal: Yes: Muscle Weakness Edema: Yes Edema: LLE: Trace, RLE: Trace Neurological: Yes: Other (awake) Labs: CBC, BMP 08/17/19 07:50 08/17/19 07:50 INR, PTT INR 1.01 (0.83-1.09) 07/28/19 05:00 Problem List - Problems (1) Hypernatremia Code(s): E87.0 - HYPEROSMOLALITY AND HYPERNATREMIA (2) Hypokalemia Code(s): E87.6 - HYPOKALEMIA (3) Acute respiratory failure with hypoxia Code(s): J96.01 - ACUTE RESPIRATORY FAILURE WITH HYPOXIA (4) Bacteremia Code(s): R78.81 - BACTEREMIA Assessment/Plan Current Medications Generic Name Dose Route Start Last Admin Trade Name Freq PRN Reason Stop Dose Admin Acetaminophen 650 mg 08/08/19 18:05 08/16/19 23:54 Tylenol Oral Solution - GT 650 mg Q6H PRN Administration FEVER Albuterol/Ipratropium 1 amp 08/16/19 13:19 Duoneb - NEB Q6H PRN SHORTNESS OF BREATH Amino Acids 30 ml 08/09/19 08:00 08/17/19 08:04 Prosource No Carb Liquid Pkt GT 30 ml BID@0800,1730 TIKI Administration Artificial Tears 1 drop 08/08/19 18:05 08/10/19 10:43 Artificial Tears OU 1 drop Q12H PRN Administration DRY EYES Ascorbic Acid 500 mg 08/09/19 10:00 08/17/19 11:20 Vitamin C Oral Solution - GT 500 mg DAILY TIKI Administration Cholecalciferol 800 unit 08/09/19 10:00 08/17/19 11:21 Vitamin D3 - NR 800 unit DAILY TIKI Administration Docusate Sodium 100 mg 08/09/19 09:46 Colace Liquid - PO DAILY PRN CONSTIPATION Enoxaparin Sodium 40 mg 08/15/19 10:00 08/17/19 09:51 Lovenox - SQ 40 mg DAILY TIKI Administration Furosemide 40 mg 08/12/19 10:00 08/17/19 11:20 Lasix Oral Solution - PO 40 mg DAILY TIKI Administration Meropenem 1 gm/ Dextrose 100 mls @ 200 mls/hr 08/12/19 12:00 08/17/19 09:49 IVPB 200 mls/hr Q8H-IV TIKI Administration Vancomycin HCl 1,500 mg/ 500 mls @ 250 mls/hr 08/16/19 13:00 08/16/19 13:47 Dextrose IVPB 250 mls/hr Q24H TIKI Administration Protocol Lacosamide 200 mg 08/10/19 22:00 08/17/19 09:50 Vimpat Liquid - PO 200 mg BID TIKI Administration Levetiracetam 1,000 mg 08/10/19 22:00 08/17/19 09:50 Keppra Oral Solution - NGT 1,000 mg BID TIKI Administration Lorazepam 1 mg 08/12/19 17:16 08/16/19 23:54 Ativan Injection - IVPUSH 1 mg Q6H PRN Administration AGITATION Nystatin 500,000 units 08/08/19 18:05 Nystatin Oral Suspension - PO Q6HPO PRN ORAL PAIN/MOUTH SORES Pantoprazole Sodium 40 mg 08/14/19 11:45 08/17/19 09:50 Protonix Iv IVPUSH 40 mg DAILY TIKI Administration Phenobarbital 60 mg 08/10/19 22:00 08/17/19 09:48 Phenobarbital Liquid - NGT 60 mg BID TIKI Administration Potassium Chloride 40 meq 08/08/19 22:00 08/17/19 09:47 Potassium Chloride Oral Liquid GT 40 meq BID TIKI Administration Spironolactone 50 mg 08/10/19 22:00 08/17/19 09:51 Aldactone - GT 50 mg BID TIKI Administration Topiramate 200 mg 08/08/19 22:00 08/17/19 12:59 Topamax - GT 200 mg TID TIKI Administration Zinc Sulfate 220 mg 08/08/19 22:00 08/17/19 09:52 Orazinc - GT 220 mg BID TIKI Administration Impression 1. hypokalemia 2. hypernatremia 3. resp failure 4. fungemia 5. covid 19 infection 6. ards 7. developemental delay 8. epilepsy 9. bactermia 10. resp acidosis with compensatory met alk Plan - potassium stable - pt on po diuretics - weaning per pulmonary - cont feeds
[2019-08-17] MEDS: VANCOMYCIN HCL 1,500 MG in DEXTROSE 5%-WATER - 500 ML IVPB SCH (14:27)
[2019-08-17 16:41] LABS: BILIRUBIN,DIRECT 0.2 mg/dL (0.0-0.2); BILIRUBIN,TOTAL 0.3 mg/dL (0.2-1)
[2019-08-17] MEDS: LORazepam 2 MG/ML SDV VIAL IVPUSH PRN (20:00)
[2019-08-17] MEDS ORDERED: LORazepam 2 MG/ML SDV VIAL IVPUSH ONE (20:36)
[2019-08-17] MEDS ORDERED: METOPROLOL TARTRATE 25 MG TABLET (FP) NGT ONE (22:33)
[2019-08-18] MEDS ORDERED: DEXTROSE 5%-WATER 100 ML IVPB ONE ×2 (01:41→09:53)
[2019-08-18] MEDS ORDERED: MEROPENEM 1 GM VIAL (RESTRICTED TO ID) IVPB ONE ×2 (01:41→09:53)
[2019-08-18] MEDS: MEROPENEM 1 GM in DEXTROSE 5%-WATER 100 ML IVPB SCH ×2 (01:46→10:04)
[2019-08-18] MEDS ORDERED: PT OWN MED DRAWER 7, Y5N ONE ×2 (05:35→13:04)
[2019-08-18] MEDS: ACETAMINOPHEN 650 MG/20.3 ML ORAL SOLUTION (CUPS) GT PRN (05:39)
[2019-08-18] MEDS: TOPIRAMATE 200 MG TABLET GT SCH ×3 (05:41→21:34)
--- NOTE | 2019-08-18 07:34 | PN ---
Progress Note, Physician History of Present Illness: PULMONARY AWAKE,NOR RESPONSIVE ON VENT SUPPORT AC MODE Pplt 26.Tmax 101.3 - Current Medication List Current Medications: Active Medications Acetaminophen (Tylenol Oral Solution -) 650 mg GT Q6H PRN PRN Reason: FEVER Last Admin: 08/18/19 05:39 Dose: 650 mg Documented by: Albuterol/Ipratropium (Duoneb -) 1 amp NEB Q6H PRN PRN Reason: SHORTNESS OF BREATH Amino Acids (Prosource No Carb Liquid Pkt) 30 ml GT BID@0800,1730 [facility] Last Admin: 08/17/19 18:00 Dose: 30 ml Documented by: Artificial Tears (Artificial Tears) 1 drop OU Q12H PRN PRN Reason: DRY EYES Last Admin: 08/10/19 10:43 Dose: 1 drop Documented by: Ascorbic Acid (Vitamin C Oral Solution -) 500 mg GT DAILY [facility] Last Admin: 08/17/19 11:20 Dose: 500 mg Documented by: Cholecalciferol (Vitamin D3 -) 800 unit NR DAILY [facility] Last Admin: 08/17/19 11:21 Dose: 800 unit Documented by: Docusate Sodium (Colace Liquid -) 100 mg PO DAILY PRN PRN Reason: CONSTIPATION Enoxaparin Sodium (Lovenox -) 40 mg SQ DAILY [facility] Last Admin: 08/17/19 09:51 Dose: 40 mg Documented by: Furosemide (Lasix Oral Solution -) 40 mg PO DAILY [facility] Last Admin: 08/17/19 11:20 Dose: 40 mg Documented by: Meropenem 1 gm/ Dextrose 100 mls @ 200 mls/hr IVPB Q8H-IV [facility] Last Admin: 08/18/19 01:46 Dose: 200 mls/hr Documented by: Vancomycin HCl 1,500 mg/ (Dextrose) 500 mls @ 250 mls/hr IVPB Q24H [facility]; Protocol Last Admin: 08/17/19 14:27 Dose: 250 mls/hr Documented by: Lacosamide (Vimpat Liquid -) 200 mg PO BID [facility] Last Admin: 08/17/19 21:32 Dose: 200 mg Documented by: Levetiracetam (Keppra Oral Solution -) 1,000 mg NGT BID [facility] Last Admin: 08/17/19 21:33 Dose: 1,000 mg Documented by: Lorazepam (Ativan Injection -) 1 mg IVPUSH Q6H PRN PRN Reason: AGITATION Last Admin: 08/17/19 20:00 Dose: 1 mg Documented by: Nystatin (Nystatin Oral Suspension -) 500,000 units PO Q6HPO PRN PRN Reason: ORAL PAIN/MOUTH SORES Pantoprazole Sodium (Protonix Iv) 40 mg IVPUSH DAILY [facility] Last Admin: 08/17/19 09:50 Dose: 40 mg Documented by: Phenobarbital (Phenobarbital Liquid -) 60 mg NGT BID [facility] Last Admin: 08/17/19 21:31 Dose: 60 mg Documented by: Potassium Chloride (Potassium Chloride Oral Liquid) 40 meq GT BID [facility] Last Admin: 08/17/19 21:36 Dose: 40 meq Documented by: Spironolactone (Aldactone -) 50 mg GT BID [facility] Last Admin: 08/17/19 21:33 Dose: 50 mg Documented by: Topiramate (Topamax -) 200 mg GT TID [facility] Last Admin: 08/18/19 05:41 Dose: 200 mg Documented by: Zinc Sulfate (Orazinc -) 220 mg GT BID [facility] Last Admin: 08/17/19 21:33 Dose: 220 mg Documented by: - Objective Vital Signs: Vital Signs Temperature 101.3 F H 08/18/19 05:00 Pulse Rate 129 H 08/18/19 05:00 Respiratory Rate 20 08/18/19 05:00 Blood Pressure 121/91 08/18/19 05:00 O2 Sat by Pulse Oximetry (%) 100 08/17/19 21:00 Constitutional: Yes: Well Nourished, Other (awake,poorly responsive) Eyes: Yes: WNL HENT: Yes: WNL Neck: Yes: Supple (trach) Cardiovascular: Yes: Tachycardia, S1, S2 Respiratory: Yes: Rhonchi (less rhonchi today) Gastrointestinal: Yes: Normal Bowel Sounds, Soft Extremities: Yes: WNL Edema: No Labs: INR, PTT - ....Imaging Cat Scan: Report Reviewed, Image Reviewed Problem List - Problems (1) COVID-19 Code(s): U07.1 - COVID POSITIVE (2) COVID-19 Code(s): U07.1 - COVID POSITIVE (3) Acute respiratory failure with hypoxia Code(s): J96.01 - ACUTE RESPIRATORY FAILURE WITH HYPOXIA (4) Seizure disorder Code(s): G40.909 - EPILEPSY, UNSP, NOT INTRACTABLE, WITHOUT STATUS EPILEPTICUS (5) Status epilepticus Code(s): G40.901 - EPILEPSY, UNSP, NOT INTRACTABLE, WITH STATUS EPILEPTICUS Assessment/Plan ASSESSMENT AND PLAN: Acute Hypoxic and Hypercapneic Respiratory Failure COVID19 Pneumonia E Coli Pneumonia Fungenmia Bacteremia Septic Shock Seizure Disorder Mental Retardation ABNORMAL LFTS fever - Ativan PRN - ABX per ID - antiepileptics - lasix, aldactone - monitor urine output, creatinine - low tidal volume ventilation - titrate FiO2, PEEP to keep SpO2 >90% - spontaeneous breathing trials as tolerated - enteral feeds: Should have PEG insertion - DVT/GI prophylaxis - monitor lfts - inhaled bronchodilators Dr MARTINEZ
[2019-08-18 07:56] LABS: HEMATOCRIT 30.5 % (35.4-49); HEMOGLOBIN 9.7 GM/dL (11.7-16.9); MCH 28.3 pg (25.7-33.7); MCHC 31.7 g/dl (32.0-35.9); MEAN CELL VOLUME 89.1 fl (80-96); MEAN PLT VOLUME 10.4 fl (7.5-11.1); PLATELET COUNT 412 K/MM3 (134-434); RBC 3.43 M/mm3 (4.00-5.60); RDW 17.5 % (11.9-15.9); WHITE BLOOD COUNT 13.1 K/mm3 (4.0-10.0)
[2019-08-18 08:14] LABS: ALBUMIN 2.8 g/dl (3.4-5.0); BLOOD UREA NITROGEN 21.9 mg/dL (7-18); MAGNESIUM 2.5 mg/dL (1.8-2.4); POTASSIUM 3.9 mmol/L (3.5-5.1)
[2019-08-18 08:15] LABS: BILIRUBIN,TOTAL 0.3 mg/dL (0.2-1); CREATININE 0.6 mg/dL (0.55-1.3); PHOSPHOROUS 4.7 mg/dL (2.5-4.9); TOT PROT 6.6 g/dl (6.4-8.2)
[2019-08-18] MEDS: AMINO ACIDS/PROTEIN HYDROLYS 30 ML LIQUID.PKT GT SCH ×2 (10:00→16:59)
[2019-08-18] MEDS: POTASSIUM CHLORIDE ORAL LIQUID 20 MEQ/15 ML GT SCH ×2 (10:00→21:34)
[2019-08-18] MEDS: PHENobarbital 20 MG/5 ML UNIT-DOSE CUP NGT SCH ×2 (10:00→21:34)
[2019-08-18] MEDS: ENOXAPARIN NA (PORCINE) 40 MG/0.4 ML DISP.SYRIN SQ SCH (10:01)
[2019-08-18] MEDS: ASCORBIC ACID 500 MG/5 ML UNIT DOSE CUP GT SCH (10:01)
[2019-08-18] MEDS: Lacosamide 50 MG/5 ML ORAL SOLUTION UNIT CUPS PO SCH ×2 (10:02→21:35)
[2019-08-18] MEDS: SPIRONOLACTONE 25 MG TABLET GT SCH ×2 (10:03→21:33)
[2019-08-18] MEDS: levETIRAcetam 500 MG/5 ML ORAL SOLUTION (UNIT-DOSE CUPS) NGT SCH ×2 (10:03→21:33)
[2019-08-18] MEDS: PANTOPRAZOLE SODIUM 40 MG VIAL IVPUSH SCH (10:03)
[2019-08-18] MEDS: FUROSEMIDE 40 MG/5 ML UNIT-DOSE CUP PO SCH (10:03)
[2019-08-18] MEDS: CHOLECALCIFEROL (VIT D3) 400 UNIT (10 MCG) TABLET NR SCH (10:03)
[2019-08-18] MEDS: ZINC SULFATE 220 MG CAPSULE (FP) GT SCH ×2 (10:04→21:33)
[2019-08-18] MEDS: QUEtiapine FUMARATE 25 MG TABLET PO SCH (11:03)
[2019-08-18] MEDS: CARVEDILOL 3.125 MG TABLET (FP) PO SCH ×2 (11:03→21:33)
--- NOTE | 2019-08-18 12:32 | PN ---
Physical Exam: SUBJECTIVE: Patient seen and examined at bedside. Obeys simple commands. OBJECTIVE: Vital Signs Period Temp Pulse Resp BP Sys/Ortiz Pulse Ox Last 24 Hr 99 F-101.3 F 114-137 20-40 121-154/85-98 100-100 Gen: trach tube in place, tachypnic, nonverbal, but follows commands HEENT: NCAT, moist membranes Neck: trach tube in place Cardio: tachycardic, regular, no mrg noted Pulm: cta b/l Abd: Soft, nondistended Laboratory Results - last 24 hr 08/17/19 08/18/19 08/18/19 14:55 06:40 06:40 WBC 13.1 H RBC 3.43 L Hgb 9.7 L Hct 30.5 L MCV 89.1 MCH 28.3 MCHC 31.7 L RDW 17.5 H Plt Count 412 MPV 10.4 Sodium 144 Potassium 3.9 Chloride 112 H Carbon Dioxide 21 Anion Gap 11 BUN 21.9 H Creatinine 0.6 Est GFR (CKD-EPI)AfAm 147.82 Est GFR (CKD-EPI)NonAf 127.55 Random Glucose 132 H Calcium 9.0 Phosphorus 4.7 Magnesium 2.5 H Total Bilirubin 0.3 0.3 Direct Bilirubin 0.2 AST 40 H 43 H ALT 108 H 93 H Alkaline Phosphatase 158 H 147 H Total Protein 7.0 6.6 Albumin 3.0 L 2.8 L Active Medications Generic Name Dose Route Start Last Admin Trade Name Freq PRN Reason Stop Dose Admin Acetaminophen 650 mg 08/08/19 18:05 08/18/19 05:39 Tylenol Oral Solution - GT 650 mg Q6H PRN Administration FEVER Albuterol/Ipratropium 1 amp 08/16/19 13:19 Duoneb - NEB Q6H PRN SHORTNESS OF BREATH Amino Acids 30 ml 08/09/19 08:00 08/18/19 10:00 Prosource No Carb Liquid Pkt GT 30 ml BID@0800,1730 [facility] Administration Artificial Tears 1 drop 08/08/19 18:05 08/10/19 10:43 Artificial Tears OU 1 drop Q12H PRN Administration DRY EYES Ascorbic Acid 500 mg 08/09/19 10:00 08/18/19 10:01 Vitamin C Oral Solution - GT 500 mg DAILY [facility] Administration Carvedilol 3.125 mg 08/18/19 10:45 08/18/19 11:03 Coreg - PO 3.125 mg BID [facility]I Administration Cholecalciferol 800 unit 08/09/19 10:00 08/18/19 10:03 Vitamin D3 - NR 800 unit DAILY [facility] Administration Docusate Sodium 100 mg 08/09/19 09:46 Colace Liquid - PO DAILY PRN CONSTIPATION Enoxaparin Sodium 40 mg 08/15/19 10:00 08/18/19 10:01 Lovenox - SQ 40 mg DAILY [facility] Administration Furosemide 40 mg 08/12/19 10:00 08/18/19 10:03 Lasix Oral Solution - PO 40 mg DAILY [facility] Administration Meropenem 1 gm/ Dextrose 100 mls @ 200 mls/hr 08/12/19 12:00 08/18/19 10:04 IVPB 200 mls/hr Q8H-IV [facility]I Administration Vancomycin HCl 1,500 mg/ 500 mls @ 250 mls/hr 08/16/19 13:00 08/17/19 14:27 Dextrose IVPB 250 mls/hr Q24H [facility]I Administration Protocol Lacosamide 200 mg 08/10/19 22:00 08/18/19 10:02 Vimpat Liquid - PO 200 mg BID [facility] Administration Levetiracetam 1,000 mg 08/10/19 22:00 08/18/19 10:03 Keppra Oral Solution - NGT 1,000 mg BID [facility] Administration Lorazepam 1 mg 08/12/19 17:16 08/17/19 20:00 Ativan Injection - IVPUSH 1 mg Q6H PRN Administration AGITATION Nystatin 500,000 units 08/08/19 18:05 Nystatin Oral Suspension - PO Q6HPO PRN ORAL PAIN/MOUTH SORES Pantoprazole Sodium 40 mg 08/14/19 11:45 08/18/19 10:03 Protonix Iv IVPUSH 40 mg DAILY [facility] Administration Phenobarbital 60 mg 08/10/19 22:00 08/18/19 10:00 Phenobarbital Liquid - NGT 60 mg BID [facility] Administration Potassium Chloride 40 meq 08/08/19 22:00 08/18/19 10:00 Potassium Chloride Oral Liquid GT 40 meq BID [facility] Administration Quetiapine Fumarate 25 mg 08/18/19 10:45 08/18/19 11:03 Seroquel - PO 25 mg DAILY [facility] Administration Spironolactone 50 mg 08/10/19 22:00 08/18/19 10:03 Aldactone - GT 50 mg BID [facility] Administration Topiramate 200 mg 08/08/19 22:00 08/18/19 05:41 Topamax - GT 200 mg TID [facility] Administration Zinc Sulfate 220 mg 08/08/19 22:00 08/18/19 10:04 Orazinc - GT 220 mg BID [facility] Administration ASSESSMENT/PLAN: 39 y/o M with PMH Mental Retardation and epilepsy who presented to ED initially with SOB and hypoxia requiring intubation, admitted to hospital for hypoxic respiratory failure 2/2 to covid-19. Hospital course complicated by bacteremia, fungemia, MRSA PNA, now with recurrent fever. Acute Resp Failure 2/ COVID-19 -s/p trach, convalescent plasma, tocilizumab -on AC vent settings -Pulm on board -persistent tachypnea recurrent fever/tachycardia with Bacteremia/fungemia -recurrent fever -BCx (08/04/2019) pos for Staph capitis -repeat BCx neg, C diff neg, UCx neg -BCx (07/12/2019) pos for fungi. Received cancidas. Repeat BCx neg -BCx (08/17/2019) pending -Echo 07/21/2019 did not reveal vegetations -Plan for 6 weeks total Vanco (day 34) -Meropenem day 6 -sputum for AFB pending -ID on board -Nephro on board Tachycardia -TFTs -start Coreg -will add low-dose seroquel to treat potential contribution of anxiety Epilepsy -c/w lorazepam prn, leviteracitam, phenobarbitol, lacosamide, topiramate DVT ppx. Was on full AC previously but was downgraded to ppx dose after possible GIB. Will repeat FOBT. Spoke with pt's mother who is amenable to PEG. States she would like to discuss with her daughter who speaks better Kazakh, as well. Visit type - Emergency Visit Emergency Visit: No - New Patient This patient is new to me today: No - Critical Care Critical Care patient: No ATTENDING PHYSICIAN STATEMENT I saw and evaluated the patient. I reviewed the resident's note and discussed the case with the resident. I agree with the resident's findings and plan as documented. SUBJECTIVE: OBJECTIVE: ASSESSMENT AND PLAN:
[2019-08-18] MEDS: VANCOMYCIN HCL 1,500 MG in DEXTROSE 5%-WATER - 500 ML IVPB SCH (13:10)
--- NOTE | 2019-08-18 14:50 | PN ---
Progress Note, Physician History of Present Illness: Pt seen and examined at bedside. He is tolerating feeds. - Current Medication List Current Medications: Active Medications Acetaminophen (Tylenol Oral Solution -) 650 mg GT Q6H PRN PRN Reason: FEVER Last Admin: 08/18/19 05:39 Dose: 650 mg Documented by: Albuterol/Ipratropium (Duoneb -) 1 amp NEB Q6H PRN PRN Reason: SHORTNESS OF BREATH Amino Acids (Prosource No Carb Liquid Pkt) 30 ml GT BID@0800,1730 [facility] Last Admin: 08/18/19 10:00 Dose: 30 ml Documented by: Artificial Tears (Artificial Tears) 1 drop OU Q12H PRN PRN Reason: DRY EYES Last Admin: 08/10/19 10:43 Dose: 1 drop Documented by: Ascorbic Acid (Vitamin C Oral Solution -) 500 mg GT DAILY [facility] Last Admin: 08/18/19 10:01 Dose: 500 mg Documented by: Carvedilol (Coreg -) 3.125 mg PO BID [facility] Last Admin: 08/18/19 11:03 Dose: 3.125 mg Documented by: Cholecalciferol (Vitamin D3 -) 800 unit NR DAILY [facility] Last Admin: 08/18/19 10:03 Dose: 800 unit Documented by: Docusate Sodium (Colace Liquid -) 100 mg PO DAILY PRN PRN Reason: CONSTIPATION Enoxaparin Sodium (Lovenox -) 40 mg SQ DAILY [facility] Last Admin: 08/18/19 10:01 Dose: 40 mg Documented by: Furosemide (Lasix Oral Solution -) 40 mg PO DAILY [facility] Last Admin: 08/18/19 10:03 Dose: 40 mg Documented by: Vancomycin HCl 1,500 mg/ (Dextrose) 500 mls @ 250 mls/hr IVPB Q24H TIKI; Protocol Last Admin: 08/18/19 13:10 Dose: 250 mls/hr Documented by: Lacosamide (Vimpat Liquid -) 200 mg PO BID [facility] Last Admin: 08/18/19 10:02 Dose: 200 mg Documented by: Levetiracetam (Keppra Oral Solution -) 1,000 mg NGT BID [facility] Last Admin: 08/18/19 10:03 Dose: 1,000 mg Documented by: Lorazepam (Ativan Injection -) 1 mg IVPUSH Q6H PRN PRN Reason: AGITATION Last Admin: 08/17/19 20:00 Dose: 1 mg Documented by: Nystatin (Nystatin Oral Suspension -) 500,000 units PO Q6HPO PRN PRN Reason: ORAL PAIN/MOUTH SORES Pantoprazole Sodium (Protonix Iv) 40 mg IVPUSH DAILY [facility] Last Admin: 08/18/19 10:03 Dose: 40 mg Documented by: Phenobarbital (Phenobarbital Liquid -) 60 mg NGT BID [facility] Last Admin: 08/18/19 10:00 Dose: 60 mg Documented by: Potassium Chloride (Potassium Chloride Oral Liquid) 40 meq GT BID [facility] Last Admin: 08/18/19 10:00 Dose: 40 meq Documented by: Quetiapine Fumarate (Seroquel -) 25 mg PO DAILY [facility] Last Admin: 08/18/19 11:03 Dose: 25 mg Documented by: Spironolactone (Aldactone -) 50 mg GT BID [facility] Last Admin: 08/18/19 10:03 Dose: 50 mg Documented by: Topiramate (Topamax -) 200 mg GT TID [facility] Last Admin: 08/18/19 13:06 Dose: 200 mg Documented by: Zinc Sulfate (Orazinc -) 220 mg GT BID [facility] Last Admin: 08/18/19 10:04 Dose: 220 mg Documented by: - Objective Vital Signs: Vital Signs Temperature 99.8 F H 08/18/19 10:00 Pulse Rate 114 H 08/18/19 10:00 Respiratory Rate 34 H 08/18/19 12:05 Blood Pressure 154/98 08/18/19 10:00 O2 Sat by Pulse Oximetry (%) 100 08/18/19 12:05 Constitutional: Yes: Calm Eyes: Yes: Conjunctiva Clear HENT: Yes: Atraumatic Neck: Yes: Supple Cardiovascular: Yes: S1, S2 Respiratory: Yes: Mechanically Ventilated Gastrointestinal: Yes: Normal Bowel Sounds, Soft Genitourinary: Yes: Incontinence Musculoskeletal: Yes: Muscle Weakness Edema: Yes Edema: LLE: Trace, RLE: Trace Labs: CBC, BMP 08/18/19 06:40 08/18/19 06:40 INR, PTT INR 1.01 (0.83-1.09) 07/28/19 05:00 Problem List - Problems (1) Hypernatremia Code(s): E87.0 - HYPEROSMOLALITY AND HYPERNATREMIA (2) Hypokalemia Code(s): E87.6 - HYPOKALEMIA (3) Acute respiratory failure with hypoxia Code(s): J96.01 - ACUTE RESPIRATORY FAILURE WITH HYPOXIA (4) Bacteremia Code(s): R78.81 - BACTEREMIA Assessment/Plan Current Medications Generic Name Dose Route Start Last Admin Trade Name Freq PRN Reason Stop Dose Admin Acetaminophen 650 mg 08/08/19 18:05 08/18/19 05:39 Tylenol Oral Solution - GT 650 mg Q6H PRN Administration FEVER Albuterol/Ipratropium 1 amp 08/16/19 13:19 Duoneb - NEB Q6H PRN SHORTNESS OF BREATH Amino Acids 30 ml 08/09/19 08:00 08/18/19 10:00 Prosource No Carb Liquid Pkt GT 30 ml BID@0800,1730 TIKI Administration Artificial Tears 1 drop 08/08/19 18:05 08/10/19 10:43 Artificial Tears OU 1 drop Q12H PRN Administration DRY EYES Ascorbic Acid 500 mg 08/09/19 10:00 08/18/19 10:01 Vitamin C Oral Solution - GT 500 mg DAILY TIKI Administration Carvedilol 3.125 mg 08/18/19 10:45 08/18/19 11:03 Coreg - PO 3.125 mg BID TIKI Administration Cholecalciferol 800 unit 08/09/19 10:00 08/18/19 10:03 Vitamin D3 - NR 800 unit DAILY [facility]IKI Administration Docusate Sodium 100 mg 08/09/19 09:46 Colace Liquid - PO DAILY PRN CONSTIPATION Enoxaparin Sodium 40 mg 08/15/19 10:00 08/18/19 10:01 Lovenox - SQ 40 mg DAILY [facility]I Administration Furosemide 40 mg 08/12/19 10:00 08/18/19 10:03 Lasix Oral Solution - PO 40 mg DAILY TIKI Administration Vancomycin HCl 1,500 mg/ 500 mls @ 250 mls/hr 08/16/19 13:00 08/18/19 13:10 Dextrose IVPB 250 mls/hr Q24H TIKI Administration Protocol Lacosamide 200 mg 08/10/19 22:00 08/18/19 10:02 Vimpat Liquid - PO 200 mg BID [facility]IKI Administration Levetiracetam 1,000 mg 08/10/19 22:00 08/18/19 10:03 Keppra Oral Solution - NGT 1,000 mg BID [facility]I Administration Lorazepam 1 mg 08/12/19 17:16 08/17/19 20:00 Ativan Injection - IVPUSH 1 mg Q6H PRN Administration AGITATION Nystatin 500,000 units 08/08/19 18:05 Nystatin Oral Suspension - PO Q6HPO PRN ORAL PAIN/MOUTH SORES Pantoprazole Sodium 40 mg 08/14/19 11:45 08/18/19 10:03 Protonix Iv IVPUSH 40 mg DAILY [facility] Administration Phenobarbital 60 mg 08/10/19 22:00 08/18/19 10:00 Phenobarbital Liquid - NGT 60 mg BID [facility]IKI Administration Potassium Chloride 40 meq 08/08/19 22:00 08/18/19 10:00 Potassium Chloride Oral Liquid GT 40 meq BID [facility]IKI Administration Quetiapine Fumarate 25 mg 08/18/19 10:45 08/18/19 11:03 Seroquel - PO 25 mg DAILY [facility] Administration Spironolactone 50 mg 08/10/19 22:00 08/18/19 10:03 Aldactone - GT 50 mg BID [facility]IKI Administration Topiramate 200 mg 08/08/19 22:00 08/18/19 13:06 Topamax - GT 200 mg TID [facility]IKI Administration Zinc Sulfate 220 mg 08/08/19 22:00 08/18/19 10:04 Orazinc - GT 220 mg BID [facility]IKI Administration Impression 1. hypokalemia 2. hypernatremia 3. resp failure 4. fungemia 5. covid 19 infection 6. ards 7. developemental delay 8. epilepsy 9. bactermia 10. resp acidosis with compensatory met alk Plan - weaning per pulmonary - cont current meds - cont diuretics - family considering peg - volume status stabilizing
--- NOTE | 2019-08-18 14:56 | PN ---
Progress Note (short form) - Note Progress Note: more alert and responsive still with fevers- now a mild eosinophilia ct scan head/c/a//p sphenoid sinusitis bilateral air space disease with small pleural effusions cdiff negative fevers trending down Vital Signs Period Temp Pulse Resp BP Sys/Ortiz Pulse Ox Last 24 Hr 97.7 F-101.3 F 114-137 20-40 109-154/85-98 100-100 cor-rrr llungs clear abd soft,nt ext no edema has more movement of the left side of body compared to the right CBC, BMP 08/18/19 06:40 08/18/19 06:40 Microbiology 08/14/19 14:50 Sputum - Endotrachea Suction/Ventilator Gram Stain - Final 08/14/19 14:50 Sputum - Endotrachea Suction/Ventilator Sputum Culture - F inal NORMAL RESPIRATORY RICKY 08/12/19 13:00 Blood - Peripheral Venous Blood Culture - Preliminary NO GROWTH OBTAINED AFTER 96 HOURS, INCUBATION TO CONTINUE FOR 1 DAYS. 08/12/19 13:10 Blood - Peripheral Venous Blood Culture - Preliminary NO GROWTH OBTAINED AFTER 96 HOURS, INCUBATION TO CONTINUE FOR 1 DAYS. duplex of legs, no dvt sono liver- fatty liver covid pcr negative (repeat) quantiferon negative imp/reccd recurrent fevers-sphenoid sinusitis, s/p trach sinusitis sputum for afb given persistent upper lobe infiltrates and fever s/p tocilizumab d/c antibiotics and observe given eosinophilia ARDS/pneumonia- sputum MRSA bacteremia- recurrent staph epi bacteremia- ?endocarditis- echo unrevealing- daty #34 vancomycin- will d/c for now fungemia- quita lusitanae- has completed 14 days cancidas- repeat cultures negative covid 19 positive -repeat pcr negative s/p convalescent plasma s/p tocilizumab MRSA isolation for positive sputum culture- esbl isolation for prior sputum ecoli esbl check strongyloides antibody ?CVA- history of seizures Problem List - Problems (1) Suspected COVID-19 virus infection Code(s): R68.89 - OTHER GENERAL SYMPTOMS AND SIGNS (2) Acute respiratory failure with hypoxia Code(s): J96.01 - ACUTE RESPIRATORY FAILURE WITH HYPOXIA (3) Bacteremia Code(s): R78.81 - BACTEREMIA
[2019-08-19] MEDS: TOPIRAMATE 200 MG TABLET GT SCH ×3 (05:16→21:39)
--- NOTE | 2019-08-19 07:28 | PN ---
Progress Note, Physician History of Present Illness: PULMONARY ALERT,ON VENT ON VENT SUPPORT AC MODE,PPlat 24. tmax 99.8 - Current Medication List Current Medications: Active Medications Acetaminophen (Tylenol Oral Solution -) 650 mg GT Q6H PRN PRN Reason: FEVER Last Admin: 08/18/19 05:39 Dose: 650 mg Documented by: Albuterol/Ipratropium (Duoneb -) 1 amp NEB Q6H PRN PRN Reason: SHORTNESS OF BREATH Amino Acids (Prosource No Carb Liquid Pkt) 30 ml GT BID@0800,1730 [facility] Last Admin: 08/18/19 16:59 Dose: 30 ml Documented by: Artificial Tears (Artificial Tears) 1 drop OU Q12H PRN PRN Reason: DRY EYES Last Admin: 08/10/19 10:43 Dose: 1 drop Documented by: Ascorbic Acid (Vitamin C Oral Solution -) 500 mg GT DAILY [facility] Last Admin: 08/18/19 10:01 Dose: 500 mg Documented by: Carvedilol (Coreg -) 3.125 mg PO BID [facility] Last Admin: 08/18/19 21:33 Dose: 3.125 mg Documented by: Cholecalciferol (Vitamin D3 -) 800 unit NR DAILY [facility] Last Admin: 08/18/19 10:03 Dose: 800 unit Documented by: Docusate Sodium (Colace Liquid -) 100 mg PO DAILY PRN PRN Reason: CONSTIPATION Enoxaparin Sodium (Lovenox -) 40 mg SQ DAILY [facility] Last Admin: 08/18/19 10:01 Dose: 40 mg Documented by: Furosemide (Lasix Oral Solution -) 40 mg PO DAILY [facility] Last Admin: 08/18/19 10:03 Dose: 40 mg Documented by: Lacosamide (Vimpat Liquid -) 200 mg PO BID [facility] Last Admin: 08/18/19 21:35 Dose: 200 mg Documented by: Levetiracetam (Keppra Oral Solution -) 1,000 mg NGT BID [facility] Last Admin: 08/18/19 21:33 Dose: 1,000 mg Documented by: Lorazepam (Ativan Injection -) 1 mg IVPUSH Q6H PRN PRN Reason: AGITATION Last Admin: 08/17/19 20:00 Dose: 1 mg Documented by: Nystatin (Nystatin Oral Suspension -) 500,000 units PO Q6HPO PRN PRN Reason: ORAL PAIN/MOUTH SORES Pantoprazole Sodium (Protonix Iv) 40 mg IVPUSH DAILY [facility] Last Admin: 08/18/19 10:03 Dose: 40 mg Documented by: Phenobarbital (Phenobarbital Liquid -) 60 mg NGT BID [facility] Last Admin: 08/18/19 21:34 Dose: 60 mg Documented by: Potassium Chloride (Potassium Chloride Oral Liquid) 40 meq GT BID [facility] Last Admin: 08/18/19 21:34 Dose: 40 meq Documented by: Quetiapine Fumarate (Seroquel -) 25 mg PO DAILY [facility] Last Admin: 08/18/19 11:03 Dose: 25 mg Documented by: Spironolactone (Aldactone -) 50 mg GT BID [facility] Last Admin: 08/18/19 21:33 Dose: 50 mg Documented by: Topiramate (Topamax -) 200 mg GT TID [facility] Last Admin: 08/19/19 05:16 Dose: 200 mg Documented by: Zinc Sulfate (Orazinc -) 220 mg GT BID [facility] Last Admin: 08/18/19 21:33 Dose: 220 mg Documented by: - Objective Vital Signs: Vital Signs Temperature 98 F 08/19/19 05:00 Pulse Rate 119 H 08/19/19 05:00 Respiratory Rate 31 H 08/19/19 05:41 Blood Pressure 140/95 08/19/19 05:00 O2 Sat by Pulse Oximetry (%) 100 08/19/19 05:41 Constitutional: Yes: Well Nourished, Calm Eyes: Yes: WNL HENT: Yes: WNL Neck: Yes: Supple (trach) Cardiovascular: Yes: Tachycardia, S1, S2 Respiratory: Yes: Rhonchi (less rhonchi maeve) Gastrointestinal: Yes: Normal Bowel Sounds, Soft Edema: No Labs: CBC, BMP Problem List - Problems (1) COVID-19 Code(s): U07.1 - COVID POSITIVE (2) COVID-19 Code(s): U07.1 - COVID POSITIVE (3) Acute respiratory failure with hypoxia Code(s): J96.01 - ACUTE RESPIRATORY FAILURE WITH HYPOXIA (4) Seizure disorder Code(s): G40.909 - EPILEPSY, UNSP, NOT INTRACTABLE, WITHOUT STATUS EPILEPTICUS (5) Status epilepticus Code(s): G40.901 - EPILEPSY, UNSP, NOT INTRACTABLE, WITH STATUS EPILEPTICUS Assessment/Plan ASSESSMENT AND PLAN: Acute Hypoxic and Hypercapneic Respiratory Failure COVID19 Pneumonia E Coli Pneumonia Fungenmia Bacteremia Septic Shock Seizure Disorder Mental Retardation ABNORMAL LFTS fever - Ativan PRN - ABX per ID - antiepileptics - lasix, aldactone - monitor urine output, creatinine - low tidal volume ventilation - titrate FiO2, PEEP to keep SpO2 >90% - spontaeneous breathing trials as tolerated - enteral feeds: Should have PEG insertion - DVT/GI prophylaxis - monitor lfts - inhaled bronchodilators Dr MARTINEZ
[2019-08-19 08:03] LABS: BASO % 0.6 % (0-2.0); EOS % 6.3 % (0-4.5); HEMATOCRIT 31.7 % (35.4-49); HEMOGLOBIN 9.9 GM/dL (11.7-16.9); LYMPH % 18.1 % (8-40); MCH 27.7 pg (25.7-33.7); MCHC 31.3 g/dl (32.0-35.9); MEAN CELL VOLUME 88.5 fl (80-96); MEAN PLT VOLUME 10.5 fl (7.5-11.1); PLATELET COUNT 425 K/MM3 (134-434); RBC 3.59 M/mm3 (4.00-5.60); RDW 17.1 % (11.9-15.9); WHITE BLOOD COUNT 14.2 K/mm3 (4.0-10.0)
[2019-08-19 08:28] LABS: ALBUMIN 2.8 g/dl (3.4-5.0); BILIRUBIN,TOTAL 0.3 mg/dL (0.2-1); BLOOD UREA NITROGEN 23.2 mg/dL (7-18); CALCIUM 9.3 mg/dL (8.5-10.1); CREATININE 0.5 mg/dL (0.55-1.3); TOT PROT 6.9 g/dl (6.4-8.2)
[2019-08-19] MEDS ORDERED: PT OWN MED DRAWER 7, Y5N ONE ×2 (09:09→21:27)
[2019-08-19] MEDS: FUROSEMIDE 40 MG/5 ML UNIT-DOSE CUP PO SCH (09:38)
[2019-08-19] MEDS: QUEtiapine FUMARATE 25 MG TABLET PO SCH (09:38)
[2019-08-19] MEDS: AMINO ACIDS/PROTEIN HYDROLYS 30 ML LIQUID.PKT GT SCH ×2 (09:39→17:49)
[2019-08-19] MEDS: CHOLECALCIFEROL (VIT D3) 400 UNIT (10 MCG) TABLET NR SCH (09:39)
[2019-08-19] MEDS: SPIRONOLACTONE 25 MG TABLET GT SCH ×2 (09:39→21:38)
[2019-08-19] MEDS: ZINC SULFATE 220 MG CAPSULE (FP) GT SCH ×2 (09:39→21:39)
[2019-08-19] MEDS: CARVEDILOL 3.125 MG TABLET (FP) PO SCH ×2 (09:39→21:37)
[2019-08-19] MEDS: Lacosamide 50 MG/5 ML ORAL SOLUTION UNIT CUPS PO SCH ×2 (09:40→21:38)
[2019-08-19] MEDS: PHENobarbital 20 MG/5 ML UNIT-DOSE CUP NGT SCH ×2 (09:40→21:38)
[2019-08-19] MEDS: POTASSIUM CHLORIDE ORAL LIQUID 20 MEQ/15 ML GT SCH ×2 (09:40→21:38)
[2019-08-19] MEDS: ASCORBIC ACID 500 MG/5 ML UNIT DOSE CUP GT SCH (09:40)
[2019-08-19] MEDS: levETIRAcetam 500 MG/5 ML ORAL SOLUTION (UNIT-DOSE CUPS) NGT SCH ×2 (09:40→21:38)
[2019-08-19] MEDS: ENOXAPARIN NA (PORCINE) 40 MG/0.4 ML DISP.SYRIN SQ SCH (09:41)
[2019-08-19] MEDS: PANTOPRAZOLE SODIUM 40 MG VIAL IVPUSH SCH (09:41)
--- NOTE | 2019-08-19 11:31 | PN ---
Physical Exam: SUBJECTIVE: Patient seen and examined at bedside. Answers simple "yes/no" questions. OBJECTIVE: Vital Signs Period Temp Pulse Resp BP Sys/Otriz Pulse Ox Last 24 Hr 97.7 F-98.5 F 102-119 28-34 109-144/84-95 100-100 Gen: trach tube in place, tachypnic, nonverbal, but follows commands HEENT: NCAT, moist membranes Neck: trach tube in place Cardio: tachycardic, regular, no mrg noted Pulm: cta b/l Abd: Soft, nondistended Laboratory Results - last 24 hr 08/18/19 08/19/19 08/19/19 11:20 07:10 07:10 WBC 14.2 H RBC 3.59 L Hgb 9.9 L Hct 31.7 L MCV 88.5 MCH 27.7 MCHC 31.3 L RDW 17.1 H Plt Count 425 MPV 10.5 Absolute Neuts (auto) 9.5 H Neutrophils % 67.0 Lymphocytes % 18.1 Monocytes % 8.0 Eosinophils % 6.3 H Basophils % 0.6 Nucleated RBC % 0 Sodium 144 Potassium 4.0 Chloride 113 H Carbon Dioxide 22 Anion Gap 9 BUN 23.2 H Creatinine 0.5 L Est GFR (CKD-EPI)AfAm 159.33 Est GFR (CKD-EPI)NonAf 137.47 Random Glucose 113 H Calcium 9.3 Total Bilirubin 0.3 AST 51 H ALT 104 H Alkaline Phosphatase 157 H Total Protein 6.9 Albumin 2.8 L TSH 1.95 Free T4 0.98 Stool Occult Blood Negative Active Medications Generic Name Dose Route Start Last Admin Trade Name Walterq PRN Reason Stop Dose Admin Acetaminophen 650 mg 08/08/19 18:05 08/18/19 05:39 Tylenol Oral Solution - GT 650 mg Q6H PRN Administration FEVER Albuterol/Ipratropium 1 amp 08/16/19 13:19 Duoneb - NEB Q6H PRN SHORTNESS OF BREATH Amino Acids 30 ml 08/09/19 08:00 08/19/19 09:39 Prosource No Carb Liquid Pkt GT 30 ml BID@0800,1730 T[facility]I Administration Artificial Tears 1 drop 08/08/19 18:05 08/10/19 10:43 Artificial Tears OU 1 drop Q12H PRN Administration DRY EYES Ascorbic Acid 500 mg 08/09/19 10:00 08/19/19 09:40 Vitamin C Oral Solution - GT 500 mg DAILY [facility] Administration Carvedilol 3.125 mg 08/18/19 10:45 08/19/19 09:39 Coreg - PO 3.125 mg BID T[facility]I Administration Cholecalciferol 800 unit 08/09/19 10:00 08/19/19 09:39 Vitamin D3 - NR 800 unit DAILY [facility] Administration Docusate Sodium 100 mg 08/09/19 09:46 Colace Liquid - PO DAILY PRN CONSTIPATION Enoxaparin Sodium 40 mg 08/15/19 10:00 08/19/19 09:41 Lovenox - SQ 40 mg DAILY [facility] Administration Furosemide 40 mg 08/12/19 10:00 08/19/19 09:38 Lasix Oral Solution - PO 40 mg DAILY [facility] Administration Lacosamide 200 mg 08/10/19 22:00 08/19/19 09:40 Vimpat Liquid - PO 200 mg BID [facility] Administration Levetiracetam 1,000 mg 08/10/19 22:00 08/19/19 09:40 Keppra Oral Solution - NGT 1,000 mg BID [facility] Administration Lorazepam 1 mg 08/12/19 17:16 08/17/19 20:00 Ativan Injection - IVPUSH 1 mg Q6H PRN Administration AGITATION Nystatin 500,000 units 08/08/19 18:05 Nystatin Oral Suspension - PO Q6HPO PRN ORAL PAIN/MOUTH SORES Pantoprazole Sodium 40 mg 08/14/19 11:45 08/19/19 09:41 Protonix Iv IVPUSH 40 mg DAILY [facility] Administration Phenobarbital 60 mg 08/10/19 22:00 08/19/19 09:40 Phenobarbital Liquid - NGT 60 mg BID [facility]I Administration Potassium Chloride 40 meq 08/08/19 22:00 08/19/19 09:40 Potassium Chloride Oral Liquid GT 40 meq BID [facility]I Administration Quetiapine Fumarate 25 mg 08/18/19 10:45 08/19/19 09:38 Seroquel - PO 25 mg DAILY [facility] Administration Spironolactone 50 mg 08/10/19 22:00 08/19/19 09:39 Aldactone - GT 50 mg BID [facility] Administration Topiramate 200 mg 08/08/19 22:00 08/19/19 05:16 Topamax - GT 200 mg TID [facility] Administration Zinc Sulfate 220 mg 08/08/19 22:00 08/19/19 09:39 Orazinc - GT 220 mg BID [facility]IKI Administration ASSESSMENT/PLAN: 39 y/o M with PMH Mental Retardation and epilepsy who presented to ED initially with SOB and hypoxia requiring intubation, admitted to hospital for hypoxic respiratory failure 2/2 to covid-19. Hospital course complicated by bacteremia, fungemia, MRSA PNA, now with recurrent fever. Acute Resp Failure 2/2 COVID-19 -s/p trach, convalescent plasma, tocilizumab -on AC vent settings. Weaning as tolerated -Pulm on board -persistent tachypnea Sepsis -leukocytosis, fever, tachycardia, tachypnea -recurrent fever/tachycardia with Bacteremia/fungemia -BCx (08/04/2019) pos for Staph capitis -repeat BCx neg, C diff neg, UCx neg -BCx (07/12/2019) pos for fungi. Received cancidas. Repeat BCx neg -BCx (08/17/2019) pending -Echo 07/21/2019 did not reveal vegetations -Plan for 6 weeks total Vanco (day 35/42) -Meropenem day 7 -sputum for AFB pending -strongyloides pending -ID on board -Nephro on board -Of note: ABx appear to be discontinued. Will discuss with ID. Tachycardia - Improving -TFTs wnl -c/w Coreg -c/w low-dose seroquel to treat potential contribution of anxiety Transaminitis -likely 2/2 sepsis Epilepsy -c/w lorazepam prn, leviteracitam, phenobarbitol, lacosamide, topiramate DVT ppx -enoxaparin 40 Visit type - Emergency Visit Emergency Visit: No - New Patient This patient is new to me today: No - Critical Care Critical Care patient: No ATTENDING PHYSICIAN STATEMENT I saw and evaluated the patient. I reviewed the resident's note and discussed the case with the resident. I agree with the resident's findings and plan as documented. SUBJECTIVE: OBJECTIVE: ASSESSMENT AND PLAN:
--- NOTE | 2019-08-19 13:05 | PN ---
Progress Note, Physician History of Present Illness: Pt seen and examined at bedside. He is awake. He remains on vent. - Current Medication List Current Medications: Active Medications Acetaminophen (Tylenol Oral Solution -) 650 mg GT Q6H PRN PRN Reason: FEVER Last Admin: 08/18/19 05:39 Dose: 650 mg Documented by: Albuterol/Ipratropium (Duoneb -) 1 amp NEB Q6H PRN PRN Reason: SHORTNESS OF BREATH Amino Acids (Prosource No Carb Liquid Pkt) 30 ml GT BID@0800,1730 [facility] Last Admin: 08/19/19 09:39 Dose: 30 ml Documented by: Artificial Tears (Artificial Tears) 1 drop OU Q12H PRN PRN Reason: DRY EYES Last Admin: 08/10/19 10:43 Dose: 1 drop Documented by: Ascorbic Acid (Vitamin C Oral Solution -) 500 mg GT DAILY [facility] Last Admin: 08/19/19 09:40 Dose: 500 mg Documented by: Carvedilol (Coreg -) 3.125 mg PO BID [facility] Last Admin: 08/19/19 09:39 Dose: 3.125 mg Documented by: Cholecalciferol (Vitamin D3 -) 800 unit NR DAILY [facility] Last Admin: 08/19/19 09:39 Dose: 800 unit Documented by: Docusate Sodium (Colace Liquid -) 100 mg PO DAILY PRN PRN Reason: CONSTIPATION Enoxaparin Sodium (Lovenox -) 40 mg SQ DAILY [facility] Last Admin: 08/19/19 09:41 Dose: 40 mg Documented by: Furosemide (Lasix Oral Solution -) 40 mg PO DAILY [facility] Last Admin: 08/19/19 09:38 Dose: 40 mg Documented by: Lacosamide (Vimpat Liquid -) 200 mg PO BID [facility] Last Admin: 08/19/19 09:40 Dose: 200 mg Documented by: Levetiracetam (Keppra Oral Solution -) 1,000 mg NGT BID [facility] Last Admin: 08/19/19 09:40 Dose: 1,000 mg Documented by: Lorazepam (Ativan Injection -) 1 mg IVPUSH Q6H PRN PRN Reason: AGITATION Last Admin: 08/17/19 20:00 Dose: 1 mg Documented by: Nystatin (Nystatin Oral Suspension -) 500,000 units PO Q6HPO PRN PRN Reason: ORAL PAIN/MOUTH SORES Pantoprazole Sodium (Protonix Iv) 40 mg IVPUSH DAILY [facility] Last Admin: 08/19/19 09:41 Dose: 40 mg Documented by: Phenobarbital (Phenobarbital Liquid -) 60 mg NGT BID [facility] Last Admin: 08/19/19 09:40 Dose: 60 mg Documented by: Potassium Chloride (Potassium Chloride Oral Liquid) 40 meq GT BID [facility] Last Admin: 08/19/19 09:40 Dose: 40 meq Documented by: Quetiapine Fumarate (Seroquel -) 25 mg PO DAILY [facility] Last Admin: 08/19/19 09:38 Dose: 25 mg Documented by: Spironolactone (Aldactone -) 50 mg GT BID [facility] Last Admin: 08/19/19 09:39 Dose: 50 mg Documented by: Topiramate (Topamax -) 200 mg GT TID [facility] Last Admin: 08/19/19 05:16 Dose: 200 mg Documented by: Zinc Sulfate (Orazinc -) 220 mg GT BID [facility] Last Admin: 08/19/19 09:39 Dose: 220 mg Documented by: - Objective Vital Signs: Vital Signs Temperature 99.8 F H 08/19/19 09:35 Pulse Rate 113 H 08/19/19 09:35 Respiratory Rate 29 H 08/19/19 09:35 Blood Pressure 156/97 08/19/19 09:35 O2 Sat by Pulse Oximetry (%) 100 08/19/19 09:45 Constitutional: Yes: Calm Eyes: Yes: Conjunctiva Clear HENT: Yes: Atraumatic Neck: Yes: Supple Cardiovascular: Yes: S1, S2 Respiratory: Yes: CTA Bilaterally Gastrointestinal: Yes: Soft Genitourinary: Yes: Caceres Present Musculoskeletal: Yes: Muscle Weakness Edema: Yes Edema: LLE: 1+, RLE: 1+ Neurological: Yes: Other (awake) Labs: CBC, BMP 08/19/19 07:10 08/19/19 07:10 INR, PTT INR 1.01 (0.83-1.09) 07/28/19 05:00 Problem List - Problems (1) Hypernatremia Code(s): E87.0 - HYPEROSMOLALITY AND HYPERNATREMIA (2) Hypokalemia Code(s): E87.6 - HYPOKALEMIA (3) Acute respiratory failure with hypoxia Code(s): J96.01 - ACUTE RESPIRATORY FAILURE WITH HYPOXIA (4) Bacteremia Code(s): R78.81 - BACTEREMIA Assessment/Plan Current Medications Generic Name Dose Route Start Last Admin Trade Name Freq PRN Reason Stop Dose Admin Acetaminophen 650 mg 08/08/19 18:05 08/18/19 05:39 Tylenol Oral Solution - GT 650 mg Q6H PRN Administration FEVER Albuterol/Ipratropium 1 amp 08/16/19 13:19 Duoneb - NEB Q6H PRN SHORTNESS OF BREATH Amino Acids 30 ml 08/09/19 08:00 08/19/19 09:39 Prosource No Carb Liquid Pkt GT 30 ml BID@0800,1730 [facility] Administration Artificial Tears 1 drop 08/08/19 18:05 08/10/19 10:43 Artificial Tears OU 1 drop Q12H PRN Administration DRY EYES Ascorbic Acid 500 mg 08/09/19 10:00 08/19/19 09:40 Vitamin C Oral Solution - GT 500 mg DAILY [facility] Administration Carvedilol 3.125 mg 08/18/19 10:45 08/19/19 09:39 Coreg - PO 3.125 mg BID [facility] Administration Cholecalciferol 800 unit 08/09/19 10:00 08/19/19 09:39 Vitamin D3 - NR 800 unit DAILY [facility] Administration Docusate Sodium 100 mg 08/09/19 09:46 Colace Liquid - PO DAILY PRN CONSTIPATION Enoxaparin Sodium 40 mg 08/15/19 10:00 08/19/19 09:41 Lovenox - SQ 40 mg DAILY [facility] Administration Furosemide 40 mg 08/12/19 10:00 08/19/19 09:38 Lasix Oral Solution - PO 40 mg DAILY [facility] Administration Lacosamide 200 mg 08/10/19 22:00 08/19/19 09:40 Vimpat Liquid - PO 200 mg BID [facility] Administration Levetiracetam 1,000 mg 08/10/19 22:00 08/19/19 09:40 Keppra Oral Solution - NGT 1,000 mg BID [facility] Administration Lorazepam 1 mg 08/12/19 17:16 08/17/19 20:00 Ativan Injection - IVPUSH 1 mg Q6H PRN Administration AGITATION Nystatin 500,000 units 06/06/20 18:05 Nystatin Oral Suspension - PO Q6HPO PRN ORAL PAIN/MOUTH SORES Pantoprazole Sodium 40 mg 08/14/19 11:45 08/19/19 09:41 Protonix Iv IVPUSH 40 mg DAILY [facility] Administration Phenobarbital 60 mg 08/10/19 22:00 08/19/19 09:40 Phenobarbital Liquid - NGT 60 mg BID [facility] Administration Potassium Chloride 40 meq 08/08/19 22:00 08/19/19 09:40 Potassium Chloride Oral Liquid GT 40 meq BID [facility] Administration Quetiapine Fumarate 25 mg 08/18/19 10:45 08/19/19 09:38 Seroquel - PO 25 mg DAILY [facility] Administration Spironolactone 50 mg 08/10/19 22:00 08/19/19 09:39 Aldactone - GT 50 mg BID [facility] Administration Topiramate 200 mg 08/08/19 22:00 08/19/19 05:16 Topamax - GT 200 mg TID [facility] Administration Zinc Sulfate 220 mg 08/08/19 22:00 08/19/19 09:39 Orazinc - GT 220 mg BID [facility] Administration Impression 1. hypokalemia 2. hypernatremia 3. resp failure 4. fungemia 5. covid 19 infection 6. ards 7. developemental delay 8. epilepsy 9. bactermia 10. resp acidosis with compensatory met alk Plan - can decrease lasix dose to 20 mg - cont aldactone for now - monitor sodium - family considering peg - volume status stabilizing
[2019-08-19] MEDS ORDERED: FUROSEMIDE 40 MG/5 ML UNIT-DOSE CUP PO SCH (13:06)
--- NOTE | 2019-08-19 13:27 | PN ---
Progress Note, [employer] - Note Progress Note: Selected Entries 08/18/19 08/18/19 08/18/19 01:49 05:00 10:00 Supper Temperature 99 F 101.3 F H 99.8 F H 08/18/19 08/18/19 08/18/19 14:00 17:25 18:00 Supper NPO Temperature 97.7 F 98.2 F 08/18/19 08/19/19 08/19/19 22:00 01:48 05:00 Supper Temperature 98.5 F 98.3 F 98 F 08/19/19 09:35 Supper Temperature 99.8 F H Laboratory Tests 08/17/19 08/18/19 08/19/19 02:00 06:40 07:10 WBC 14.3 H 13.1 H 14.2 H Awake, on vent Consider PMV to evaluate ability to verbalize and facilitate weaning from Ventilator
[2019-08-19] MEDS: LORazepam 2 MG/ML SDV VIAL IVPUSH PRN (14:50)
--- NOTE | 2019-08-19 14:56 | PN ---
Progress Note (short form) - Note Progress Note: more alert and responsive no fevers trach +ngt Vital Signs Period Temp Pulse Resp BP Sys/Ortiz Pulse Ox Last 24 Hr 98 F-99.8 F 102-119 28-33 123-156/84-97 100-100 cor-rrr lungs decreased bs at bases abd-soft, nt ext-no edema CBC, BMP 08/19/19 07:10 08/19/19 07:10 Microbiology 08/18/19 12:00 AFB Smear Concentration - Preliminary Sputum - Endotrachea Suction/Ventilator Mycobacterial Culture - Preliminary 08/17/19 02:00 Blood Culture - Preliminary Blood - Peripheral Venous NO GROWTH OBTAINED AFTER 48 HOURS, INCUBATION TO CONTINUE FOR 3 DAYS. 08/17/19 02:00 Blood Culture - Preliminary Blood - Peripheral Venous NO GROWTH OBTAINED AFTER 48 HOURS, INCUBATION TO CONTINUE FOR 3 DAYS. covid pcr negative (repeat) quantiferon negative imp/reccd fevers are resolving observe off antibiotics sputum for afb given persistent upper lobe infiltrates and fever s/p tocilizumab ARDS/pneumonia- sputum MRSA bacteremia- recurrent staph epi bacteremia- fungemia- quita lusitanae- has completed 14 days cancidas- repeat cultures negative covid 19 positive -repeat pcr negative s/p convalescent plasma s/p tocilizumab MRSA isolation for positive sputum culture- esbl isolation for prior sputum ecoli esbl check strongyloides antibody ?CVA- history of seizures Problem List - Problems (1) Suspected COVID-19 virus infection Code(s): R68.89 - OTHER GENERAL SYMPTOMS AND SIGNS (2) Acute respiratory failure with hypoxia Code(s): J96.01 - ACUTE RESPIRATORY FAILURE WITH HYPOXIA (3) Bacteremia Code(s): R78.81 - BACTEREMIA
--- NOTE | 2019-08-19 15:08 | EKG ---
Test Reason : Blood Pressure : / mmHG Vent. Rate : 148 BPM Atrial Rate : 148 BPM P-R Int : 122 ms QRS Dur : 068 ms QT Int : 276 ms P-R-T Axes : 101 162 137 degrees QTc Int : 433 ms SUSPECT ARM LEAD REVERSAL, INTERPRETATION ASSUMES NO REVERSAL SINUS TACHYCARDIA MINIMAL VOLTAGE CRITERIA FOR LVH, MAY BE NORMAL VARIANT LATERAL INFARCT , AGE UNDETERMINED ABNORMAL ECG WHEN COMPARED WITH ECG OF 17-AUG-2019 02:12, QRS AXIS SHIFTED RIGHT LATERAL INFARCT IS NOW PRESENT T WAVE INVERSION NOW EVIDENT IN LATERAL LEADS Confirmed by MD ELSIE, JORI ([id number]) on 08/19/2019 3:08:15 PM Referred By: Confirmed By:JORI ZIMMERMAN MD
--- NOTE | 2019-08-19 16:49 | PN ---
Teaching Attending Note Name of Resident: Tomi Moya ATTENDING PHYSICIAN STATEMENT I saw and evaluated the patient. I reviewed the resident's note and discussed the case with the resident. I agree with the resident's findings and plan as documented. SUBJECTIVE: Patient seen and examined bedside, s/p trach for ARF 2/2 ARDS PNA, COVID, fungemia, deconditioned, still w/ b/l infiltrates unweanable off vent. OBJECTIVE: General: NAD, trach+, deconditioned, tachypneic HEENT mucous membranes moist, no anemia, no jaundice, PERRLA, no nystagmus Neck: Status post trach clean site Chest: coarse b/l BS CVS: S1-S2 no murmur/gallop/rub Abdomen: Nondistended, soft, bowel sounds present. Extremities: No edema., No Calf tenderness, pulses present WOUND CARE SPECIALIST: Alert nonverbal Derm: No decubitus ulcers Vital Signs - 24 hr 08/18/19 08/18/19 08/18/19 18:00 18:55 21:00 Temperature 98.2 F Pulse Rate 102 H 102 H Respiratory 30 H 29 H Rate Blood Pressure 144/92 O2 Sat by Pulse 100 100 Oximetry (%) 08/18/19 08/19/19 08/19/19 22:00 01:10 01:48 Temperature 98.5 F 98.3 F Pulse Rate 110 H 109 H Respiratory 33 H 30 H 32 H Rate Blood Pressure 123/90 134/84 O2 Sat by Pulse 100 Oximetry (%) 08/19/19 08/19/19 08/19/19 05:00 05:41 09:35 Temperature 98 F 99.8 F H Pulse Rate 119 H 113 H Respiratory 32 H 31 H 29 H Rate Blood Pressure 140/95 156/97 O2 Sat by Pulse 100 Oximetry (%) 08/19/19 08/19/19 08/19/19 09:45 10:10 14:20 Temperature Pulse Rate Respiratory 32 H 29 H Rate Blood Pressure O2 Sat by Pulse 100 98 100 Oximetry (%) 08/19/19 15:00 Temperature 99.6 F Pulse Rate 115 H Respiratory 29 H Rate Blood Pressure 138/88 O2 Sat by Pulse Oximetry (%) Microbiology 08/18/19 12:00 Sputum - Endotrachea Suction/Ventilator AFB Smear Concentration - Preliminary 08/18/19 12:00 Sputum - Endotrachea Suction/Ventilator Mycobacterial Culture - Preliminary 08/17/19 02:00 Blood - Peripheral Venous Blood Culture - Preliminary NO GROWTH OBTAINED AFTER 48 HOURS, INCUBATION TO CONTINUE FOR 3 DAYS. 08/17/19 02:00 Blood - Peripheral Venous Blood Culture - Preliminary NO GROWTH OBTAINED AFTER 48 HOURS, INCUBATION TO CONTINUE FOR 3 DAYS. 08/17/19 11:35 Urine - Urine Caceres Urine Culture - Final NO GROWTH OBTAINED 08/12/19 13:10 Blood - Peripheral Venous Blood Culture - Final NO GROWTH AFTER 5 DAYS INCUBATION 08/12/19 13:00 Blood - Peripheral Venous Blood Culture - Final NO GROWTH AFTER 5 DAYS INCUBATION 08/14/19 14:50 Sputum - Endotrachea Suction/Ventilator Gram Stain - Final 08/14/19 14:50 Sputum - Endotrachea Suction/Ventilator Sputum Culture - Final NORMAL RESPIRATORY RICKY 08/14/19 14:49 Stool Clostridioides difficile Antigen - Final 08/14/19 14:49 Stool Clostridioides difficile Toxin Assay - Final 08/09/19 11:45 Blood - Peripheral Venous Blood Culture - Final NO GROWTH AFTER 5 DAYS INCUBATION 08/09/19 11:52 Blood - Peripheral Venous Blood Culture - Final NO GROWTH AFTER 5 DAYS INCUBATION 08/12/19 14:45 Stool Clostridioides difficile Antigen - Final 08/12/19 14:45 Stool Clostridioides difficile Toxin Assay - Final 08/09/19 16:30 Urine - Urine Caceres Urine Culture - Final NO GROWTH OBTAINED 08/04/19 19:40 Blood - Peripheral Venous Blood Culture - Final Staphylococcus Capitis 08/04/19 19:50 Blood - Peripheral Venous Blood Culture - Final NO GROWTH AFTER 5 DAYS INCUBATION 08/05/19 13:45 Urine - Urine Caceres Urine Culture - Final NO GROWTH OBTAINED 07/31/19 16:30 Blood - Peripheral Venous Blood Culture - Final NO GROWTH AFTER 5 DAYS INCUBATION 07/31/19 17:25 Blood - Peripheral Venous Blood Culture - Final Staphylococcus Capitis 08/01/19 11:55 Sputum - Endotrachea Suction/Ventilator Gram Stain - Final 08/01/19 11:55 Sputum - Endotrachea Suction/Ventilator Sputum Culture - Final Mr S Aureus 07/29/19 11:46 Blood - Peripheral Venous Blood Culture - Final NO GROWTH AFTER 5 DAYS INCUBATION 07/29/19 11:18 Blood - Central Line Blood Culture - Final NO GROWTH AFTER 5 DAYS INCUBATION 07/29/19 11:18 Urine - Urine Caceres Urine Culture - Final NO GROWTH OBTAINED 07/12/19 11:04 Blood - Peripheral Venous Yeast/Fungus Identification - Final Janis Lusitaniae 07/18/19 21:10 Blood - Peripheral Venous Blood Culture - Final NO GROWTH AFTER 5 DAYS INCUBATION 07/18/19 18:30 Blood - Peripheral Venous Blood Culture - Final NO GROWTH AFTER 5 DAYS INCUBATION 07/15/19 12:25 Blood - Peripheral Venous Blood Culture - Final NO GROWTH AFTER 5 DAYS INCUBATION 07/16/19 15:15 Blood - Peripheral Venous Blood Culture - Final Staphylococcus Epidermidis 07/14/19 11:30 Blood - Peripheral Venous Blood Culture - Final NO GROWTH AFTER 5 DAYS INCUBATION 07/16/19 15:05 Blood - Peripheral Venous Blood Culture - Final Staphylococcus Epidermidis 07/16/19 12:30 Sputum - Endotrachea Suction/Ventilator Gram Stain - Final 07/16/19 12:30 Sputum - Endotrachea Suction/Ventilator Sputum Culture - Final Mr S Aureus Escherichia Coli 07/12/19 10:55 Blood - Peripheral Venous Blood Culture - Final NO GROWTH AFTER 5 DAYS INCUBATION 07/16/19 12:30 Urine - Urine - Catheterized Urine Culture - Final NO GROWTH OBTAINED 07/12/19 06:00 Sputum - Endotrachea Suction/Ventilator Gram Stain - Final 07/12/19 06:00 Sputum - Endotrachea Suction/Ventilator Sputum Culture - Final 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 Mr S Aureus 07/12/19 11:04 Blood - Peripheral Venous Blood Culture - Final 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 07/01/19 18:15 Blood - Peripheral Venous Blood Culture - Final NO GROWTH AFTER 5 DAYS INCUBATION 06/29/19 12:30 Blood - Peripheral Venous Blood Culture - Final Staphylococcus Epidermidis 06/30/19 17:15 Sputum - Endotrachea Suction/Ventilator Gram Stain - Final 06/30/19 17:15 Sputum - Endotrachea Suction/Ventilator Sputum Culture - Final Escherichia Coli Esbl Keyboard Operator 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 06/28/19 09:00 Blood - Peripheral Venous Blood Culture - Final Staphylococcus Epidermidis 06/28/19 12:50 Sputum - Endotrachea Suction/Ventilator Gram Stain - Final 06/28/19 12:50 Sputum - Endotrachea Suction/Ventilator Sputum Culture - Final 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 Staphylococcus Aureus 06/25/19 13:40 Blood - Peripheral Venous Blood Culture - Final NO GROWTH AFTER 5 DAYS INCUBATION 06/25/19 13:20 Blood - Peripheral Venous Blood Culture - Final NO GROWTH AFTER 5 DAYS INCUBATION 06/28/19 12:51 Urine - Urine Caceres Urine Culture - Final NO GROWTH OBTAINED 06/22/19 13:00 Blood - Peripheral Venous Blood Culture - Final Staphylococcus Warneri 06/22/19 13:00 Blood - Peripheral Venous Blood Culture - Final Staphylococcus Epidermidis 06/24/19 00:01 Urine - Urine Caceres Urine Culture - Final NO GROWTH OBTAINED 06/24/19 00:01 Urine For Antigen Detection Legionella Antigen - Final 06/24/19 00:01 Urine For Antigen Detection Streptococcus pneumoniae Antigen (M - Final Laboratory Results - last 24 hr 08/19/19 08/19/19 07:10 07:10 WBC 14.2 H RBC 3.59 L Hgb 9.9 L Hct 31.7 L MCV 88.5 MCH 27.7 MCHC 31.3 L RDW 17.1 H Plt Count 425 MPV 10.5 Absolute Neuts (auto) 9.5 H Neutrophils % 67.0 Lymphocytes % 18.1 Monocytes % 8.0 Eosinophils % 6.3 H Basophils % 0.6 Nucleated RBC % 0 Sodium 144 Potassium 4.0 Chloride 113 H Carbon Dioxide 22 Anion Gap 9 BUN 23.2 H Creatinine 0.5 L Est GFR (CKD-EPI)AfAm 159.33 Est GFR (CKD-EPI)NonAf 137.47 Random Glucose 113 H Calcium 9.3 Total Bilirubin 0.3 AST 51 H ALT 104 H Alkaline Phosphatase 157 H Total Protein 6.9 Albumin 2.8 L TSH 1.95 Free T4 0.98 Home Medications Medication Instructions Recorded Topiramate [Topamax -] 200 mg PO TID #90 tablet 06/10/18 Lacosamide [Vimpat] 200 mg PO BID #60 tablet MDD 2 06/11/18 Phenobarbital - 60 mg PO BID #120 tablet MDD 4 06/11/18 levETIRAcetam [Keppra -] 1,000 mg PO BID 06/22/19 Current Medications Generic Name Dose Route Start Last Admin Trade Name Freq PRN Reason Stop Dose Admin Acetaminophen 650 mg 08/08/19 18:05 08/18/19 05:39 Tylenol Oral Solution - GT 650 mg Q6H PRN Administration FEVER Albuterol/Ipratropium 1 amp 08/16/19 13:19 Duoneb - NEB Q6H PRN SHORTNESS OF BREATH Amino Acids 30 ml 08/09/19 08:00 08/19/19 09:39 Prosource No Carb Liquid Pkt GT 30 ml BID@0800,1730 [facility] Administration Artificial Tears 1 drop 08/08/19 18:05 08/10/19 10:43 Artificial Tears OU 1 drop Q12H PRN Administration DRY EYES Ascorbic Acid 500 mg 08/09/19 10:00 08/19/19 09:40 Vitamin C Oral Solution - GT 500 mg DAILY [facility] Administration Carvedilol 3.125 mg 08/18/19 10:45 08/19/19 09:39 Coreg - PO 3.125 mg BID [facility] Administration Cholecalciferol 800 unit 08/09/19 10:00 08/19/19 09:39 Vitamin D3 - NR 800 unit DAILY [facility] Administration Docusate Sodium 100 mg 08/09/19 09:46 Colace Liquid - PO DAILY PRN CONSTIPATION Enoxaparin Sodium 40 mg 08/15/19 10:00 08/19/19 09:41 Lovenox - SQ 40 mg DAILY [facility] Administration Furosemide 30 mg 08/19/19 13:06 Lasix Oral Solution - PO DAILY [facility] Lacosamide 200 mg 08/10/19 22:00 08/19/19 09:40 Vimpat Liquid - PO 200 mg BID [facility] Administration Levetiracetam 1,000 mg 08/10/19 22:00 08/19/19 09:40 Keppra Oral Solution - NGT 1,000 mg BID [facility] Administration Lorazepam 1 mg 08/12/19 17:16 08/19/19 14:50 Ativan Injection - IVPUSH 1 mg Q6H PRN Administration AGITATION Nystatin 500,000 units 08/08/19 18:05 Nystatin Oral Suspension - PO Q6HPO PRN ORAL PAIN/MOUTH SORES Pantoprazole Sodium 40 mg 08/14/19 11:45 08/19/19 09:41 Protonix Iv IVPUSH 40 mg DAILY [facility] Administration Phenobarbital 60 mg 08/10/19 22:00 08/19/19 09:40 Phenobarbital Liquid - NGT 60 mg BID [facility] Administration Potassium Chloride 40 meq 08/08/19 22:00 08/19/19 09:40 Potassium Chloride Oral Liquid GT 40 meq BID [facility] Administration Quetiapine Fumarate 25 mg 08/18/19 10:45 08/19/19 09:38 Seroquel - PO 25 mg DAILY [facility] Administration Spironolactone 50 mg 08/10/19 22:00 08/19/19 09:39 Aldactone - GT 50 mg BID [facility] Administration Topiramate 200 mg 08/08/19 22:00 08/19/19 14:49 Topamax - GT 200 mg TID [facility] Administration Zinc Sulfate 220 mg 08/08/19 22:00 08/19/19 09:39 Orazinc - GT 220 mg BID [facility] Administration ASSESSMENT AND PLAN: 39 M Acute Resp Failure 2/2 COVID-19 s/p trach/plasma/Actemra Sepsis 2/2 polymicrobial infections (fungemia/bacteremia/COVID) Tachycardia Transaminitis Epilepsy Mental retardation Developmental delay Deconditioning Plan: COnt. Nystation for fungemia, strongyloides pending Juicious use of IVF Wean vent to minimize FiO2 req. Cont. psych meds, Ativan PRN for anxiety/tachypnea Aggressive replacements of electrolytes Will need conversation with family for GOC including nutrition access (i.e. PEG tube) DVT ppx: Lovenox SC
--- NOTE | 2019-08-19 16:53 | PN ---
Teaching Attending Note Name of Resident: Tomi Moya ATTENDING PHYSICIAN STATEMENT I saw and evaluated the patient. I reviewed the resident's note and discussed the case with the resident. I agree with the resident's findings and plan as documented. SUBJECTIVE: Patient seen and examined bedside, family agreeing for PEG tube, will consult GI/IR for placement. VSS. OBJECTIVE: General: NAD, trach+, deconditioned, tachypneic HEENT mucous membranes moist, no anemia, no jaundice, PERRLA, no nystagmus Neck: Status post trach clean site Chest: coarse b/l BS CVS: S1-S2 no murmur/gallop/rub Abdomen: Nondistended, soft, bowel sounds present. Extremities: No edema., No Calf tenderness, pulses present POOL PLAYER: Alert nonverbal Derm: No decubitus ulcers Vital Signs - 24 hr 08/18/19 08/18/19 08/18/19 18:00 18:55 21:00 Temperature 98.2 F Pulse Rate 102 H 102 H Respiratory 30 H 29 H Rate Blood Pressure 144/92 O2 Sat by Pulse 100 100 Oximetry (%) 08/18/19 08/19/19 08/19/19 22:00 01:10 01:48 Temperature 98.5 F 98.3 F Pulse Rate 110 H 109 H Respiratory 33 H 30 H 32 H Rate Blood Pressure 123/90 134/84 O2 Sat by Pulse 100 Oximetry (%) 08/19/19 08/19/19 08/19/19 05:00 05:41 09:35 Temperature 98 F 99.8 F H Pulse Rate 119 H 113 H Respiratory 32 H 31 H 29 H Rate Blood Pressure 140/95 156/97 O2 Sat by Pulse 100 Oximetry (%) 08/19/19 08/19/19 08/19/19 09:45 10:10 14:20 Temperature Pulse Rate Respiratory 32 H 29 H Rate Blood Pressure O2 Sat by Pulse 100 98 100 Oximetry (%) 08/19/19 15:00 Temperature 99.6 F Pulse Rate 115 H Respiratory 29 H Rate Blood Pressure 138/88 O2 Sat by Pulse Oximetry (%) Microbiology 08/18/19 12:00 Sputum - Endotrachea Suction/Ventilator AFB Smear Concentration - Preliminary 08/18/19 12:00 Sputum - Endotrachea Suction/Ventilator Mycobacterial Culture - Preliminary 08/17/19 02:00 Blood - Peripheral Venous Blood Culture - Preliminary NO GROWTH OBTAINED AFTER 48 HOURS, INCUBATION TO CONTINUE FOR 3 DAYS. 08/17/19 02:00 Blood - Peripheral Venous Blood Culture - Preliminary NO GROWTH OBTAINED AFTER 48 HOURS, INCUBATION TO CONTINUE FOR 3 DAYS. 08/17/19 11:35 Urine - Urine Caceres Urine Culture - Final NO GROWTH OBTAINED 08/12/19 13:10 Blood - Peripheral Venous Blood Culture - Final NO GROWTH AFTER 5 DAYS INCUBATION 08/12/19 13:00 Blood - Peripheral Venous Blood Culture - Final NO GROWTH AFTER 5 DAYS INCUBATION 08/14/19 14:50 Sputum - Endotrachea Suction/Ventilator Gram Stain - Final 08/14/19 14:50 Sputum - Endotrachea Suction/Ventilator Sputum Culture - Final NORMAL RESPIRATORY RICKY 08/14/19 14:49 Stool Clostridioides difficile Antigen - Final 08/14/19 14:49 Stool Clostridioides difficile Toxin Assay - Final 08/09/19 11:45 Blood - Peripheral Venous Blood Culture - Final NO GROWTH AFTER 5 DAYS INCUBATION 08/09/19 11:52 Blood - Peripheral Venous Blood Culture - Final NO GROWTH AFTER 5 DAYS INCUBATION 08/12/19 14:45 Stool Clostridioides difficile Antigen - Final 08/12/19 14:45 Stool Clostridioides difficile Toxin Assay - Final 08/09/19 16:30 Urine - Urine Caceres Urine Culture - Final NO GROWTH OBTAINED 08/04/19 19:40 Blood - Peripheral Venous Blood Culture - Final Staphylococcus Capitis 08/04/19 19:50 Blood - Peripheral Venous Blood Culture - Final NO GROWTH AFTER 5 DAYS INCUBATION 08/05/19 13:45 Urine - Urine Caceres Urine Culture - Final NO GROWTH OBTAINED 07/31/19 16:30 Blood - Peripheral Venous Blood Culture - Final NO GROWTH AFTER 5 DAYS INCUBATION 07/31/19 17:25 Blood - Peripheral Venous Blood Culture - Final Staphylococcus Capitis 08/01/19 11:55 Sputum - Endotrachea Suction/Ventilator Gram Stain - Final 08/01/19 11:55 Sputum - Endotrachea Suction/Ventilator Sputum Culture - Final Mr S Aureus 07/29/19 11:46 Blood - Peripheral Venous Blood Culture - Final NO GROWTH AFTER 5 DAYS INCUBATION 07/29/19 11:18 Blood - Central Line Blood Culture - Final NO GROWTH AFTER 5 DAYS INCUBATION 07/29/19 11:18 Urine - Urine Caceres Urine Culture - Final NO GROWTH OBTAINED 07/12/19 11:04 Blood - Peripheral Venous Yeast/Fungus Identification - Final Janis Lusitaniae 07/18/19 21:10 Blood - Peripheral Venous Blood Culture - Final NO GROWTH AFTER 5 DAYS INCUBATION 07/18/19 18:30 Blood - Peripheral Venous Blood Culture - Final NO GROWTH AFTER 5 DAYS INCUBATION 07/15/19 12:25 Blood - Peripheral Venous Blood Culture - Final NO GROWTH AFTER 5 DAYS INCUBATION 07/16/19 15:15 Blood - Peripheral Venous Blood Culture - Final Staphylococcus Epidermidis 07/14/19 11:30 Blood - Peripheral Venous Blood Culture - Final NO GROWTH AFTER 5 DAYS INCUBATION 07/16/19 15:05 Blood - Peripheral Venous Blood Culture - Final Staphylococcus Epidermidis 07/16/19 12:30 Sputum - Endotrachea Suction/Ventilator Gram Stain - Final 07/16/19 12:30 Sputum - Endotrachea Suction/Ventilator Sputum Culture - Final Mr S Aureus Escherichia Coli 07/12/19 10:55 Blood - Peripheral Venous Blood Culture - Final NO GROWTH AFTER 5 DAYS INCUBATION 07/16/19 12:30 Urine - Urine - Catheterized Urine Culture - Final NO GROWTH OBTAINED 07/12/19 06:00 Sputum - Endotrachea Suction/Ventilator Gram Stain - Final 07/12/19 06:00 Sputum - Endotrachea Suction/Ventilator Sputum Culture - Final 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 Mr S Aureus 07/12/19 11:04 Blood - Peripheral Venous Blood Culture - Final 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 07/01/19 18:15 Blood - Peripheral Venous Blood Culture - Final NO GROWTH AFTER 5 DAYS INCUBATION 06/29/19 12:30 Blood - Peripheral Venous Blood Culture - Final Staphylococcus Epidermidis 06/30/19 17:15 Sputum - Endotrachea Suction/Ventilator Gram Stain - Final 06/30/19 17:15 Sputum - Endotrachea Suction/Ventilator Sputum Culture - Final Escherichia Coli Esbl Kettle Firer 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 06/28/19 09:00 Blood - Peripheral Venous Blood Culture - Final Staphylococcus Epidermidis 06/28/19 12:50 Sputum - Endotrachea Suction/Ventilator Gram Stain - Final 06/28/19 12:50 Sputum - Endotrachea Suction/Ventilator Sputum Culture - Final 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 Staphylococcus Aureus 06/25/19 13:40 Blood - Peripheral Venous Blood Culture - Final NO GROWTH AFTER 5 DAYS INCUBATION 06/25/19 13:20 Blood - Peripheral Venous Blood Culture - Final NO GROWTH AFTER 5 DAYS INCUBATION 06/28/19 12:51 Urine - Urine Caceres Urine Culture - Final NO GROWTH OBTAINED 06/22/19 13:00 Blood - Peripheral Venous Blood Culture - Final Staphylococcus Warneri 06/22/19 13:00 Blood - Peripheral Venous Blood Culture - Final Staphylococcus Epidermidis 06/24/19 00:01 Urine - Urine Caceres Urine Culture - Final NO GROWTH OBTAINED 06/24/19 00:01 Urine For Antigen Detection Legionella Antigen - Final 06/24/19 00:01 Urine For Antigen Detection Streptococcus pneumoniae Antigen (M - Final Laboratory Results - last 24 hr 08/19/19 08/19/19 07:10 07:10 WBC 14.2 H RBC 3.59 L Hgb 9.9 L Hct 31.7 L MCV 88.5 MCH 27.7 MCHC 31.3 L RDW 17.1 H Plt Count 425 MPV 10.5 Absolute Neuts (auto) 9.5 H Neutrophils % 67.0 Lymphocytes % 18.1 Monocytes % 8.0 Eosinophils % 6.3 H Basophils % 0.6 Nucleated RBC % 0 Sodium 144 Potassium 4.0 Chloride 113 H Carbon Dioxide 22 Anion Gap 9 BUN 23.2 H Creatinine 0.5 L Est GFR (CKD-EPI)AfAm 159.33 Est GFR (CKD-EPI)NonAf 137.47 Random Glucose 113 H Calcium 9.3 Total Bilirubin 0.3 AST 51 H ALT 104 H Alkaline Phosphatase 157 H Total Protein 6.9 Albumin 2.8 L TSH 1.95 Free T4 0.98 Home Medications Medication Instructions Recorded Topiramate [Topamax -] 200 mg PO TID #90 tablet 06/10/18 Lacosamide [Vimpat] 200 mg PO BID #60 tablet MDD 2 06/11/18 Phenobarbital - 60 mg PO BID #120 tablet MDD 4 06/11/18 levETIRAcetam [Keppra -] 1,000 mg PO BID 06/22/19 Current Medications Generic Name Dose Route Start Last Admin Trade Name Freq PRN Reason Stop Dose Admin Acetaminophen 650 mg 08/08/19 18:05 08/18/19 05:39 Tylenol Oral Solution - GT 650 mg Q6H PRN Administration FEVER Albuterol/Ipratropium 1 amp 08/16/19 13:19 Duoneb - NEB Q6H PRN SHORTNESS OF BREATH Amino Acids 30 ml 08/09/19 08:00 08/19/19 09:39 Prosource No Carb Liquid Pkt GT 30 ml BID@0800,1730 TIKI Administration Artificial Tears 1 drop 08/08/19 18:05 08/10/19 10:43 Artificial Tears OU 1 drop Q12H PRN Administration DRY EYES Ascorbic Acid 500 mg 08/09/19 10:00 08/19/19 09:40 Vitamin C Oral Solution - GT 500 mg DAILY TIKI Administration Carvedilol 3.125 mg 08/18/19 10:45 08/19/19 09:39 Coreg - PO 3.125 mg BID TIKI Administration Cholecalciferol 800 unit 08/09/19 10:00 08/19/19 09:39 Vitamin D3 - NR 800 unit DAILY TIKI Administration Docusate Sodium 100 mg 08/09/19 09:46 Colace Liquid - PO DAILY PRN CONSTIPATION Enoxaparin Sodium 40 mg 08/15/19 10:00 08/19/19 09:41 Lovenox - SQ 40 mg DAILY TIKI Administration Furosemide 30 mg 08/19/19 13:06 Lasix Oral Solution - PO DAILY TIKI Lacosamide 200 mg 08/10/19 22:00 08/19/19 09:40 Vimpat Liquid - PO 200 mg BID TIKI Administration Levetiracetam 1,000 mg 08/10/19 22:00 08/19/19 09:40 Keppra Oral Solution - NGT 1,000 mg BID TIKI Administration Lorazepam 1 mg 08/12/19 17:16 08/19/19 14:50 Ativan Injection - IVPUSH 1 mg Q6H PRN Administration AGITATION Nystatin 500,000 units 08/08/19 18:05 Nystatin Oral Suspension - PO Q6HPO PRN ORAL PAIN/MOUTH SORES Pantoprazole Sodium 40 mg 08/14/19 11:45 08/19/19 09:41 Protonix Iv IVPUSH 40 mg DAILY TIKI Administration Phenobarbital 60 mg 08/10/19 22:00 08/19/19 09:40 Phenobarbital Liquid - NGT 60 mg BID TIKI Administration Potassium Chloride 40 meq 08/08/19 22:00 08/19/19 09:40 Potassium Chloride Oral Liquid GT 40 meq BID TIKI Administration Quetiapine Fumarate 25 mg 08/18/19 10:45 08/19/19 09:38 Seroquel - PO 25 mg DAILY TIKI Administration Spironolactone 50 mg 08/10/19 22:00 08/19/19 09:39 Aldactone - GT 50 mg BID TIKI Administration Topiramate 200 mg 08/08/19 22:00 08/19/19 14:49 Topamax - GT 200 mg TID TIKI Administration Zinc Sulfate 220 mg 08/08/19 22:00 08/19/19 09:39 Orazinc - GT 220 mg BID TKII Administration ASSESSMENT AND PLAN: 39 M Acute Resp Failure 2/2 COVID-19 s/p trach/plasma/Actemra Sepsis 2/2 polymicrobial infections (fungemia/bacteremia/COVID) Tachycardia Transaminitis Epilepsy Mental retardation Developmental delay Deconditioning Anemia Plan: Cont. Nystatin for fungemia, strongyloides labs pending Coreg started for tachycardia/HTN, improving Limit IVF Wean vent to minimize FiO2 req. Cont. psych meds, Ativan PRN for anxiety/tachypnea Aggressive replacements of electrolytes IR consult for PEG placement DVT ppx: Lovenox SC (FOBT negative)
--- NOTE | 2019-08-19 21:03 | CON.GI ---
Consult - History of Present Illness History of Present Illness: Mr. Todd Hurtado is a 39 year old man with a past medical history of seizure disorder, developmental delay / mental retardation admitted in June with sob found to be positive for covid - 19 subsequently developed respiratory failure and now is s/p trach/plasma/Actemra / polymicrobial Sepsis/ failure to wean off ventilator. This consultation is for peg tube placement. patient offers no additional history secondary to underlying illness. 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 Pulmonary: Yes: Pneumonia - Alcohol/Substance Use Hx Alcohol Use: No - Smoking History Smoking history: Never smoked Have you smoked in the past 12 months: No - Social History Usual Living Arrangement: With Parent ADL: Family Assistance Home Medications - Allergies Allergies/Adverse Reactions: Allergies Allergy/AdvReac Type Severity Reaction Status Date / Time No Known Allergies Allergy Verified 06/22/19 12:24 - Home Medications Home Medications: Ambulatory Orders Topiramate [Topamax -] 200 mg PO TID #90 tablet 06/10/18 Lacosamide [Vimpat] 200 mg PO BID #60 tablet MDD 2 06/11/18 Phenobarbital - 60 mg PO BID #120 tablet MDD 4 06/11/18 levETIRAcetam [Keppra -] 1,000 mg PO BID 06/22/19 Family Medical History Family History: Unable to Obtain Review of Systems Unable to obtain ROS, reason: unable to obtain Physical Exam-GI Vital Signs: Vital Signs Temperature 99.3 F 08/19/19 18:00 Pulse Rate 117 H 08/19/19 18:00 Respiratory Rate 32 H 08/19/19 20:40 Blood Pressure 144/95 08/19/19 18:00 O2 Sat by Pulse Oximetry (%) 100 08/19/19 20:40 Constitutional: Yes: No Distress, Calm ...Auscultate: Yes: Normoactive Bowel Sounds, Other (not tender , bs nml) Labs: CBC, BMP 08/19/19 07:10 08/19/19 07:10 INR, PTT INR 1.01 (0.83-1.09) 07/28/19 05:00 Imaging - Results Chest X-ray: Report Reviewed, Image Reviewed Ultrasound: Report Reviewed, Image Reviewed Problem List - Problems (1) Dysphagia Assessment/Plan: Impression: Covid -19 PNA complicated by hypoxic respiratory failure / failure to wean Reviewed chart- apparently the family is in favor of the feeding tube. Palliative care and speech therapy have been following this patient and offered support and insight into the patient's present condition. I have left a message with the family to further discuss the risk and benefit regarding peg tube placement particularly the fact that tube placement will not decrease morbidity / mortality or aspiration risk in this patient. I will f/u. c/w feeds ppi IR was also consulted - will defer placement of the peg tube to IR. Please contact the GI service with any concerns or questions. Code(s): R13.10 - DYSPHAGIA, UNSPECIFIED (2) Acute respiratory failure with hypoxia Code(s): J96.01 - ACUTE RESPIRATORY FAILURE WITH HYPOXIA (3) COVID-19 Code(s): U07.1 - COVID POSITIVE
[2019-08-20] MEDS: TOPIRAMATE 200 MG TABLET GT SCH ×3 (05:49→22:21)
[2019-08-20 07:39] LABS: BASO % 0.7 % (0-2.0); EOS % 3.2 % (0-4.5); HEMATOCRIT 34.4 % (35.4-49); HEMOGLOBIN 10.7 GM/dL (11.7-16.9); LYMPH % 17.7 % (8-40); MCHC 31.1 g/dl (32.0-35.9); MEAN CELL VOLUME 90.1 fl (80-96); MEAN PLT VOLUME 11.1 fl (7.5-11.1); MONO % 7.3 % (3.8-10.2); NEUT % 71.1 % (42.8-82.8); PLATELET COUNT 476 K/MM3 (134-434); RBC 3.82 M/mm3 (4.00-5.60); RDW 17.5 % (11.9-15.9); WHITE BLOOD COUNT 16.3 K/mm3 (4.0-10.0)
--- NOTE | 2019-08-20 07:50 | PN ---
Progress Note, Physician History of Present Illness: pulmonary awake,alert,on vent support,less congested - Current Medication List Current Medications: Active Medications Acetaminophen (Tylenol Oral Solution -) 650 mg GT Q6H PRN PRN Reason: FEVER Last Admin: 08/18/19 05:39 Dose: 650 mg Documented by: Albuterol/Ipratropium (Duoneb -) 1 amp NEB Q6H PRN PRN Reason: SHORTNESS OF BREATH Amino Acids (Prosource No Carb Liquid Pkt) 30 ml GT BID@0800,1730 [facility] Last Admin: 08/19/19 17:49 Dose: 30 ml Documented by: Artificial Tears (Artificial Tears) 1 drop OU Q12H PRN PRN Reason: DRY EYES Last Admin: 08/10/19 10:43 Dose: 1 drop Documented by: Ascorbic Acid (Vitamin C Oral Solution -) 500 mg GT DAILY [facility] Last Admin: 08/19/19 09:40 Dose: 500 mg Documented by: Carvedilol (Coreg -) 3.125 mg PO BID [facility] Last Admin: 08/19/19 21:37 Dose: 3.125 mg Documented by: Cholecalciferol (Vitamin D3 -) 800 unit NR DAILY [facility] Last Admin: 08/19/19 09:39 Dose: 800 unit Documented by: Docusate Sodium (Colace Liquid -) 100 mg PO DAILY PRN PRN Reason: CONSTIPATION Enoxaparin Sodium (Lovenox -) 40 mg SQ DAILY [facility] Last Admin: 08/19/19 09:41 Dose: 40 mg Documented by: Furosemide (Lasix Oral Solution -) 30 mg PO DAILY [facility] Lacosamide (Vimpat Liquid -) 200 mg PO BID [facility] Last Admin: 08/19/19 21:38 Dose: 200 mg Documented by: Levetiracetam (Keppra Oral Solution -) 1,000 mg NGT BID [facility] Last Admin: 08/19/19 21:38 Dose: 1,000 mg Documented by: Lorazepam (Ativan Injection -) 1 mg IVPUSH Q6H PRN PRN Reason: AGITATION Last Admin: 08/19/19 14:50 Dose: 1 mg Documented by: Nystatin (Nystatin Oral Suspension -) 500,000 units PO Q6HPO PRN PRN Reason: ORAL PAIN/MOUTH SORES Pantoprazole Sodium (Protonix Iv) 40 mg IVPUSH DAILY [facility] Last Admin: 08/19/19 09:41 Dose: 40 mg Documented by: Phenobarbital (Phenobarbital Liquid -) 60 mg NGT BID [facility] Last Admin: 08/19/19 21:38 Dose: 60 mg Documented by: Potassium Chloride (Potassium Chloride Oral Liquid) 40 meq GT BID [facility] Last Admin: 08/19/19 21:38 Dose: 40 meq Documented by: Quetiapine Fumarate (Seroquel -) 25 mg PO DAILY [facility] Last Admin: 08/19/19 09:38 Dose: 25 mg Documented by: Spironolactone (Aldactone -) 50 mg GT BID [facility] Last Admin: 08/19/19 21:38 Dose: 50 mg Documented by: Topiramate (Topamax -) 200 mg GT TID [facility] Last Admin: 08/20/19 05:49 Dose: 200 mg Documented by: Zinc Sulfate (Orazinc -) 220 mg GT BID [facility] Last Admin: 08/19/19 21:39 Dose: 220 mg Documented by: - Objective Vital Signs: Vital Signs Temperature 97.8 F 08/20/19 06:00 Pulse Rate 116 H 08/20/19 06:00 Respiratory Rate 32 H 08/20/19 06:00 Blood Pressure 144/93 08/20/19 06:00 O2 Sat by Pulse Oximetry (%) 100 08/20/19 04:02 Constitutional: Yes: Well Nourished, Calm Eyes: Yes: WNL HENT: Yes: WNL Neck: Yes: Supple (trach) Cardiovascular: Yes: Regular Rate and Rhythm, S1, S2 Respiratory: Yes: Rhonchi (bilateral rhonchi), Tachypnea Gastrointestinal: Yes: Normal Bowel Sounds, Soft Extremities: Yes: WNL Edema: No Labs: CBC, BMP 08/20/19 07:09 INR, PTT INR 1.01 (0.83-1.09) 07/28/19 05:00 Problem List - Problems (1) COVID-19 Code(s): U07.1 - COVID POSITIVE (2) COVID-19 Code(s): U07.1 - COVID POSITIVE (3) Acute respiratory failure with hypoxia Code(s): J96.01 - ACUTE RESPIRATORY FAILURE WITH HYPOXIA (4) Seizure disorder Code(s): G40.909 - EPILEPSY, UNSP, NOT INTRACTABLE, WITHOUT STATUS EPILEPTICUS (5) Status epilepticus Code(s): G40.901 - EPILEPSY, UNSP, NOT INTRACTABLE, WITH STATUS EPILEPTICUS Assessment/Plan ASSESSMENT AND PLAN: Acute Hypoxic and Hypercapneic Respiratory Failure COVID19 Pneumonia E Coli Pneumonia Fungenmia Bacteremia Septic Shock Seizure Disorder Mental Retardation ABNORMAL LFTS fever - Ativan PRN - antiepileptics - lasix, aldactone - monitor urine output, creatinine - low tidal volume ventilation - titrate FiO2, PEEP to keep SpO2 >90% - spontaeneous breathing trials as tolerated - enteral feeds: Should have PEG insertion - DVT/GI prophylaxis - monitor lfts - inhaled bronchodilators Dr MARTINEZ
[2019-08-20 07:57] LABS: BILIRUBIN,TOTAL 0.4 mg/dL (0.2-1); CALCIUM 10.1 mg/dL (8.5-10.1); CREATININE 0.5 mg/dL (0.55-1.3); POTASSIUM 4.2 mmol/L (3.5-5.1); TOT PROT 7.1 g/dl (6.4-8.2)
[2019-08-20] MEDS ORDERED: PT OWN MED DRAWER 7, Y5N ONE ×4 (09:31→21:27)
[2019-08-20] MEDS: PANTOPRAZOLE SODIUM 40 MG VIAL IVPUSH SCH (10:06)
[2019-08-20] MEDS: ASCORBIC ACID 500 MG/5 ML UNIT DOSE CUP GT SCH (10:06)
[2019-08-20] MEDS: AMINO ACIDS/PROTEIN HYDROLYS 30 ML LIQUID.PKT GT SCH ×2 (10:06→17:00)
[2019-08-20] MEDS: QUEtiapine FUMARATE 25 MG TABLET PO SCH (10:06)
[2019-08-20] MEDS: PHENobarbital 20 MG/5 ML UNIT-DOSE CUP NGT SCH ×2 (10:06→21:39)
[2019-08-20] MEDS: Lacosamide 50 MG/5 ML ORAL SOLUTION UNIT CUPS PO SCH ×2 (10:07→21:40)
[2019-08-20] MEDS: CHOLECALCIFEROL (VIT D3) 400 UNIT (10 MCG) TABLET NR SCH (10:07)
[2019-08-20] MEDS: CARVEDILOL 6.25 MG TABLET (FP) PO SCH ×2 (10:07→21:39)
[2019-08-20] MEDS: ENOXAPARIN NA (PORCINE) 40 MG/0.4 ML DISP.SYRIN SQ SCH (10:07)
[2019-08-20] MEDS: SPIRONOLACTONE 25 MG TABLET GT SCH (10:08)
[2019-08-20] MEDS: levETIRAcetam 500 MG/5 ML ORAL SOLUTION (UNIT-DOSE CUPS) NGT SCH ×2 (10:08→21:40)
[2019-08-20] MEDS: ZINC SULFATE 220 MG CAPSULE (FP) GT SCH ×2 (10:08→21:40)
[2019-08-20] MEDS: POTASSIUM CHLORIDE ORAL LIQUID 20 MEQ/15 ML GT SCH ×2 (10:12→21:39)
--- NOTE | 2019-08-20 10:56 | PN ---
Progress Note, [employer] - Note Progress Note: Selected Entries 08/19/19 08/19/19 08/19/19 01:10 01:48 05:00 Supper Temperature 98.3 F 98 F Pulse Rate 109 H 119 H Respiratory Rate Blood Pressure 134/84 140/95 O2 Sat by Pulse 100 Oximetry (%) Oxygen Delivery Method Fraction of 40 Inspired Oxygen (FIO2) 08/19/19 08/19/19 08/19/19 05:41 09:35 09:45 Supper Temperature 99.8 F H Pulse Rate 113 H Respiratory Rate Blood Pressure 156/97 O2 Sat by Pulse 100 100 Oximetry (%) Oxygen Delivery Mechanical Method Ventilator Fraction of 40 40 Inspired Oxygen (FIO2) 08/19/19 08/19/19 08/19/19 10:10 14:20 15:00 Supper Temperature 99.6 F Pulse Rate 115 H Respiratory Rate Blood Pressure 138/88 O2 Sat by Pulse 98 100 Oximetry (%) Oxygen Delivery Method Fraction of 40 40 Inspired Oxygen (FIO2) 08/19/19 08/19/19 08/19/19 18:00 18:10 18:25 Supper NPO Temperature 99.3 F Pulse Rate 117 H Respiratory Rate Blood Pressure 144/95 O2 Sat by Pulse 100 Oximetry (%) Oxygen Delivery Method Fraction of 40 Inspired Oxygen (FIO2) 08/19/19 08/19/19 08/19/19 20:40 21:00 21:34 Supper Temperature 98.3 F Pulse Rate 119 H Respiratory Rate Blood Pressure 141/77 O2 Sat by Pulse 100 100 Oximetry (%) Oxygen Delivery Mechanical Method Ventilator Fraction of 40 40 Inspired Oxygen (FIO2) 08/20/19 08/20/19 08/20/19 00:17 02:00 04:02 Supper Temperature 97.7 F Pulse Rate 115 H Respiratory 30 H 32 H 30 H Rate Blood Pressure 142/88 O2 Sat by Pulse 100 100 Oximetry (%) Oxygen Delivery Method Fraction of 40 40 Inspired Oxygen (FIO2) 08/20/19 06:00 Supper Temperature 97.8 F Pulse Rate 116 H Respiratory 32 H Rate Blood Pressure 144/93 O2 Sat by Pulse Oximetry (%) Oxygen Delivery Method Fraction of Inspired Oxygen (FIO2) Laboratory Tests 06/22/19 08/18/19 08/19/19 12:00 06:40 07:10 WBC 13.1 H 14.2 H COVID-19 ([facility]) Detected H Strongyloides IgG Ab 08/19/19 08/19/19 08/20/19 07:10 22:00 07:09 WBC 16.3 H COVID-19 ([facility]) Pending Strongyloides IgG Ab Pending Awake, on vent Pending PEG placement. PMV not indicated at this time, per Nursing- Fragile medically, periods Tachypneic PMV in future, when medically improved, to facilitate communication and weaning from ventilator
--- NOTE | 2019-08-20 11:29 | PN ---
Physical Exam: SUBJECTIVE: Patient seen and examined at bedside. No acute events. Afebrile overnight. OBJECTIVE: Vital Signs Period Temp Pulse Resp BP Sys/Ortiz Pulse Ox Last 24 Hr 97.7 F-99.6 F 115-119 29-32 138-144/77-95 100-100 Gen: trach tube in place, tachypnic, nonverbal, but follows commands HEENT: NCAT, moist membranes Neck: trach tube in place Cardio: tachycardic, regular, no mrg noted Pulm: cta b/l Abd: Soft, nondistended Laboratory Results - last 24 hr 08/20/19 08/20/19 07:09 07:09 WBC 16.3 H RBC 3.82 L Hgb 10.7 L Hct 34.4 L MCV 90.1 MCH 28.0 MCHC 31.1 L RDW 17.5 H Plt Count 476 H MPV 11.1 Absolute Neuts (auto) 11.6 H Neutrophils % 71.1 Lymphocytes % 17.7 Monocytes % 7.3 Eosinophils % 3.2 Basophils % 0.7 Nucleated RBC % 0 Sodium 146 H Potassium 4.2 Chloride 112 H Carbon Dioxide 26 Anion Gap 8 BUN 23.0 H Creatinine 0.5 L Est GFR (CKD-EPI)AfAm 159.33 Est GFR (CKD-EPI)NonAf 137.47 Random Glucose 103 Calcium 10.1 Total Bilirubin 0.4 AST 46 H ALT 99 H Alkaline Phosphatase 159 H Total Protein 7.1 Albumin 3.0 L Active Medications Generic Name Dose Route Start Last Admin Trade Name Freq PRN Reason Stop Dose Admin Acetaminophen 650 mg 08/08/19 18:05 08/18/19 05:39 Tylenol Oral Solution - GT 650 mg Q6H PRN Administration FEVER Albuterol/Ipratropium 1 amp 08/16/19 13:19 Duoneb - NEB Q6H PRN SHORTNESS OF BREATH Amino Acids 30 ml 08/09/19 08:00 08/20/19 10:06 Prosource No Carb Liquid Pkt GT 30 ml BID@0800,1730 TIKI Administration Artificial Tears 1 drop 08/08/19 18:05 08/10/19 10:43 Artificial Tears OU 1 drop Q12H PRN Administration DRY EYES Ascorbic Acid 500 mg 08/09/19 10:00 08/20/19 10:06 Vitamin C Oral Solution - GT 500 mg DAILY TIKI Administration Carvedilol 6.25 mg 08/20/19 09:33 08/20/19 10:07 Coreg - PO 6.25 mg BID TIKI Administration Cholecalciferol 800 unit 08/09/19 10:00 08/20/19 10:07 Vitamin D3 - NR 800 unit DAILY TIKI Administration Docusate Sodium 100 mg 08/09/19 09:46 Colace Liquid - PO DAILY PRN CONSTIPATION Enoxaparin Sodium 40 mg 08/15/19 10:00 08/20/19 10:07 Lovenox - SQ 40 mg DAILY TIKI Administration Furosemide 30 mg 08/19/19 13:06 08/20/19 10:06 Lasix Oral Solution - PO 30 mg DAILY TIKI Administration Lacosamide 200 mg 08/10/19 22:00 08/20/19 10:07 Vimpat Liquid - PO 200 mg BID TIKI Administration Levetiracetam 1,000 mg 08/10/19 22:00 08/20/19 10:08 Keppra Oral Solution - NGT 1,000 mg BID TIKI Administration Lorazepam 1 mg 08/12/19 17:16 08/19/19 14:50 Ativan Injection - IVPUSH 1 mg Q6H PRN Administration AGITATION Nystatin 500,000 units 08/08/19 18:05 Nystatin Oral Suspension - PO Q6HPO PRN ORAL PAIN/MOUTH SORES Pantoprazole Sodium 40 mg 08/14/19 11:45 08/20/19 10:06 Protonix Iv IVPUSH 40 mg DAILY TIKI Administration Phenobarbital 60 mg 08/10/19 22:00 08/20/19 10:06 Phenobarbital Liquid - NGT 60 mg BID TIKI Administration Potassium Chloride 40 meq 08/08/19 22:00 08/20/19 10:12 Potassium Chloride Oral Liquid GT 40 meq BID TIKI Administration Quetiapine Fumarate 25 mg 08/18/19 10:45 08/20/19 10:06 Seroquel - PO 25 mg DAILY TIKI Administration Spironolactone 50 mg 08/10/19 22:00 08/20/19 10:08 Aldactone - GT 50 mg BID TIKI Administration Topiramate 200 mg 08/08/19 22:00 08/20/19 05:49 Topamax - GT 200 mg TID TIKI Administration Zinc Sulfate 220 mg 08/08/19 22:00 08/20/19 10:08 Orazinc - GT 220 mg BID TIKI Administration ASSESSMENT/PLAN: 39 y/o M with PMH Mental Retardation and epilepsy who presented to ED initially with SOB and hypoxia requiring intubation, admitted to hospital for hypoxic respiratory failure 2/2 to covid-19. Hospital course complicated by bacteremia, fungemia, MRSA PNA, now with recurrent fever. Acute Resp Failure 2/2 COVID-19 -s/p trach, convalescent plasma, tocilizumab -on AC vent settings. Weaning as tolerated -Pulm on board -persistent tachypnea Sepsis -increasing leukocytosis, now afebrile, tachycardia controlled with coreg/seroquel, tachypnea -recurrent fever/tachycardia with Bacteremia/fungemia -BCx (08/04/2019) pos for Staph capitis -repeat BCx neg, C diff neg, UCx neg -BCx (07/12/2019) pos for fungi. Received cancidas. Repeat BCx neg -BCx (08/17/2019) pending -Echo 07/21/2019 did not reveal vegetations -sputum for AFB pending -strongyloides pending -ID on board -Nephro on board -ABx held per ID Tachycardia - Improving -TFTs wnl -c/w Coreg -c/w low-dose seroquel to treat potential contribution of anxiety Transaminitis -likely 2/2 sepsis Epilepsy -c/w lorazepam prn, leviteracitam, phenobarbitol, lacosamide, topiramate Family requesting PEG. GI on board. Will discuss with family. DVT ppx -enoxaparin 40 Visit type - Emergency Visit Emergency Visit: No - New Patient This patient is new to me today: No - Critical Care Critical Care patient: No ATTENDING PHYSICIAN STATEMENT I saw and evaluated the patient. I reviewed the resident's note and discussed the case with the resident. I agree with the resident's findings and plan as documented. SUBJECTIVE: OBJECTIVE: ASSESSMENT AND PLAN:
--- NOTE | 2019-08-20 13:03 | PN ---
Progress Note (short form) - Note Progress Note: rmore alert and responsive low grade temp overnight Vital Signs Period Temp Pulse Resp BP Sys/Ortiz Pulse Ox Last 24 Hr 97.7 F-100.3 F 108-119 23-32 121-144/77-95 100-100 cor-rrr lungs decreased bs at bases abd soft,nt ext no edema no sacral ulcer anthony rectal tube CBC, BMP 08/20/19 07:09 08/20/19 07:09 Microbiology 08/18/19 12:00 Sputum - Endotrachea Suction/Ventilator AFB Smear Concentration - Final 08/18/19 12:00 Sputum - Endotrachea Suction/Ventilator Mycobacterial Culture - Preliminary 08/17/19 02:00 Blood - Peripheral Venous Blood Culture - Preliminary NO GROWTH OBTAINED AFTER 72 HOURS, INCUBATION TO CONTINUE FOR 2 DAYS. 08/17/19 02:00 Blood - Peripheral Venous Blood Culture - Preliminary NO GROWTH OBTAINED AFTER 72 HOURS, INCUBATION TO CONTINUE FOR 2 DAYS. 08/17/19 11:35 Urine - Urine Anthony Urine Culture - Final NO GROWTH OBTAINED 08/12/19 13:10 Blood - Peripheral Venous Blood Culture - Final NO GROWTH AFTER 5 DAYS INCUBATION 08/12/19 13:00 Blood - Peripheral Venous Blood Culture - Final NO GROWTH AFTER 5 DAYS INCUBATION 08/14/19 14:50 Sputum - Endotrachea Suction/Ventilator Gram Stain - Final 08/14/19 14:50 Sputum - Endotrachea Suction/Ventilator Sputum Culture - Final NORMAL RESPIRATORY RICKY 08/14/19 14:49 Stool Clostridioides difficile Antigen - Final 08/14/19 14:49 Stool Clostridioides difficile Toxin Assay - Final 08/09/19 11:45 Blood - Peripheral Venous Blood Culture - Final NO GROWTH AFTER 5 DAYS INCUBATION 08/09/19 11:52 Blood - Peripheral Venous Blood Culture - Final NO GROWTH AFTER 5 DAYS INCUBATION 08/12/19 14:45 Stool Clostridioides difficile Antigen - Final 08/12/19 14:45 Stool Clostridioides difficile Toxin Assay - Final 08/09/19 16:30 Urine - Urine Anthony Urine Culture - Final NO GROWTH OBTAINED 08/04/19 19:40 Blood - Peripheral Venous Blood Culture - Final Staphylococcus Capitis 08/04/19 19:50 Blood - Peripheral Venous Blood Culture - Final NO GROWTH AFTER 5 DAYS INCUBATION 08/05/19 13:45 Urine - Urine Anthony Urine Culture - Final NO GROWTH OBTAINED 07/31/19 16:30 Blood - Peripheral Venous Blood Culture - Final NO GROWTH AFTER 5 DAYS INCUBATION 07/31/19 17:25 Blood - Peripheral Venous Blood Culture - Final Staphylococcus Capitis 08/01/19 11:55 Sputum - Endotrachea Suction/Ventilator Gram Stain - Final 08/01/19 11:55 Sputum - Endotrachea Suction/Ventilator Sputum Culture - Final Mr S Aureus 07/29/19 11:46 Blood - Peripheral Venous Blood Culture - Final NO GROWTH AFTER 5 DAYS INCUBATION 07/29/19 11:18 Blood - Central Line Blood Culture - Final NO GROWTH AFTER 5 DAYS INCUBATION 07/29/19 11:18 Urine - Urine Anthony Urine Culture - Final NO GROWTH OBTAINED 07/12/19 11:04 Blood - Peripheral Venous Yeast/Fungus Identification - Final Janis Lusitaniae 07/18/19 21:10 Blood - Peripheral Venous Blood Culture - Final NO GROWTH AFTER 5 DAYS INCUBATION 07/18/19 18:30 Blood - Peripheral Venous Blood Culture - Final NO GROWTH AFTER 5 DAYS INCUBATION 07/15/19 12:25 Blood - Peripheral Venous Blood Culture - Final NO GROWTH AFTER 5 DAYS INCUBATION 07/16/19 15:15 Blood - Peripheral Venous Blood Culture - Final Staphylococcus Epidermidis 07/14/19 11:30 Blood - Peripheral Venous Blood Culture - Final NO GROWTH AFTER 5 DAYS INCUBATION 07/16/19 15:05 Blood - Peripheral Venous Blood Culture - Final Staphylococcus Epidermidis 07/16/19 12:30 Sputum - Endotrachea Suction/Ventilator Gram Stain - Final 07/16/19 12:30 Sputum - Endotrachea Suction/Ventilator Sputum Culture - Final Mr S Aureus Escherichia Coli 07/12/19 10:55 Blood - Peripheral Venous Blood Culture - Final NO GROWTH AFTER 5 DAYS INCUBATION 07/16/19 12:30 Urine - Urine - Catheterized Urine Culture - Final NO GROWTH OBTAINED 07/12/19 06:00 Sputum - Endotrachea Suction/Ventilator Gram Stain - Final 07/12/19 06:00 Sputum - Endotrachea Suction/Ventilator Sputum Culture - Final 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 Mr S Aureus 07/12/19 11:04 Blood - Peripheral Venous Blood Culture - Final 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 07/01/19 18:15 Blood - Peripheral Venous Blood Culture - Final NO GROWTH AFTER 5 DAYS INCUBATION 06/29/19 12:30 Blood - Peripheral Venous Blood Culture - Final Staphylococcus Epidermidis 06/30/19 17:15 Sputum - Endotrachea Suction/Ventilator Gram Stain - Final 06/30/19 17:15 Sputum - Endotrachea Suction/Ventilator Sputum Culture - Final Escherichia Coli Esbl Machine Inker 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 06/28/19 09:00 Blood - Peripheral Venous Blood Culture - Final Staphylococcus Epidermidis 06/28/19 12:50 Sputum - Endotrachea Suction/Ventilator Gram Stain - Final 06/28/19 12:50 Sputum - Endotrachea Suction/Ventilator Sputum Culture - Final 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 Staphylococcus Aureus 06/25/19 13:40 Blood - Peripheral Venous Blood Culture - Final NO GROWTH AFTER 5 DAYS INCUBATION 06/25/19 13:20 Blood - Peripheral Venous Blood Culture - Final NO GROWTH AFTER 5 DAYS INCUBATION 06/28/19 12:51 Urine - Urine Anthony Urine Culture - Final NO GROWTH OBTAINED 06/22/19 13:00 Blood - Peripheral Venous Blood Culture - Final Staphylococcus Warneri 06/22/19 13:00 Blood - Peripheral Venous Blood Culture - Final Staphylococcus Epidermidis 06/24/19 00:01 Urine - Urine Anthony Urine Culture - Final NO GROWTH OBTAINED 06/24/19 00:01 Urine For Antigen Detection Legionella Antigen - Final 06/24/19 00:01 Urine For Antigen Detection Streptococcus pneumoniae Antigen (M - Final i covid pcr negative (repeat) quantiferon negative imp/reccd chronic resp failure recurrent fevers-reculture if fevers persist sputum for afb given persistent upper lobe infiltrates and fever s/p tocilizumab ARDS/pneumonia- sputum MRSA s/p staph epi bacteremia- fungemia- janis lusitanae- has completed 14 days cancidas- repeat cultures negative covid 19 positive -repeat pcr negative s/p convalescent plasma s/p tocilizumab MRSA isolation for positive sputum culture- esbl isolation for prior sputum ecoli esbl afb sputum strongyloides antibody now with rectal tube, check stool cdiff Problem List - Problems (1) Suspected COVID-19 virus infection Code(s): R68.89 - OTHER GENERAL SYMPTOMS AND SIGNS (2) Acute respiratory failure with hypoxia Code(s): J96.01 - ACUTE RESPIRATORY FAILURE WITH HYPOXIA (3) Bacteremia Code(s): R78.81 - BACTEREMIA
--- NOTE | 2019-08-20 13:33 | PN ---
Progress Note, Physician History of Present Illness: Pt seen and examined at bedside. He is awake but confused. - Current Medication List Current Medications: Active Medications Acetaminophen (Tylenol Oral Solution -) 650 mg GT Q6H PRN PRN Reason: FEVER Last Admin: 08/18/19 05:39 Dose: 650 mg Documented by: Albuterol/Ipratropium (Duoneb -) 1 amp NEB Q6H PRN PRN Reason: SHORTNESS OF BREATH Amino Acids (Prosource No Carb Liquid Pkt) 30 ml GT BID@0800,1730 ON LICENSE OF [facility] Last Admin: 08/20/19 10:06 Dose: 30 ml Documented by: Artificial Tears (Artificial Tears) 1 drop OU Q12H PRN PRN Reason: DRY EYES Last Admin: 08/10/19 10:43 Dose: 1 drop Documented by: Ascorbic Acid (Vitamin C Oral Solution -) 500 mg GT DAILY ON LICENSE OF [facility] Last Admin: 08/20/19 10:06 Dose: 500 mg Documented by: Carvedilol (Coreg -) 6.25 mg PO BID ON LICENSE OF [facility] Last Admin: 08/20/19 10:07 Dose: 6.25 mg Documented by: Cholecalciferol (Vitamin D3 -) 800 unit NR DAILY ON LICENSE OF [facility] Last Admin: 08/20/19 10:07 Dose: 800 unit Documented by: Docusate Sodium (Colace Liquid -) 100 mg PO DAILY PRN PRN Reason: CONSTIPATION Enoxaparin Sodium (Lovenox -) 40 mg SQ DAILY ON LICENSE OF [facility] Last Admin: 08/20/19 10:07 Dose: 40 mg Documented by: Furosemide (Lasix Oral Solution -) 30 mg PO DAILY ON LICENSE OF [facility] Last Admin: 08/20/19 10:06 Dose: 30 mg Documented by: Lacosamide (Vimpat Liquid -) 200 mg PO BID ON LICENSE OF [facility] Last Admin: 08/20/19 10:07 Dose: 200 mg Documented by: Levetiracetam (Keppra Oral Solution -) 1,000 mg NGT BID ON LICENSE OF [facility] Last Admin: 08/20/19 10:08 Dose: 1,000 mg Documented by: Lorazepam (Ativan Injection -) 1 mg IVPUSH Q6H PRN PRN Reason: AGITATION Last Admin: 08/19/19 14:50 Dose: 1 mg Documented by: Nystatin (Nystatin Oral Suspension -) 500,000 units PO Q6HPO PRN PRN Reason: ORAL PAIN/MOUTH SORES Pantoprazole Sodium (Protonix Iv) 40 mg IVPUSH DAILY ON LICENSE OF [facility] Last Admin: 08/20/19 10:06 Dose: 40 mg Documented by: Phenobarbital (Phenobarbital Liquid -) 60 mg NGT BID ON LICENSE OF [facility] Last Admin: 08/20/19 10:06 Dose: 60 mg Documented by: Potassium Chloride (Potassium Chloride Oral Liquid) 40 meq GT BID ON LICENSE OF [facility] Last Admin: 08/20/19 10:12 Dose: 40 meq Documented by: Quetiapine Fumarate (Seroquel -) 25 mg PO DAILY ON LICENSE OF [facility] Last Admin: 08/20/19 10:06 Dose: 25 mg Documented by: Spironolactone (Aldactone -) 50 mg GT BID ON LICENSE OF [facility] Last Admin: 08/20/19 10:08 Dose: 50 mg Documented by: Topiramate (Topamax -) 200 mg GT TID ON LICENSE OF [facility] Last Admin: 08/20/19 05:49 Dose: 200 mg Documented by: Zinc Sulfate (Orazinc -) 220 mg GT BID ON LICENSE OF [facility] Last Admin: 08/20/19 10:08 Dose: 220 mg Documented by: - Objective Vital Signs: Vital Signs Temperature 99.2 F 08/20/19 10:00 Pulse Rate 108 H 08/20/19 10:00 Respiratory Rate 23 H 08/20/19 10:00 Blood Pressure 143/93 08/20/19 10:00 O2 Sat by Pulse Oximetry (%) 100 08/20/19 09:00 Constitutional: Yes: Calm Eyes: Yes: Conjunctiva Clear HENT: Yes: Atraumatic Neck: Yes: Supple Cardiovascular: Yes: S1, S2 Respiratory: Yes: Mechanically Ventilated Gastrointestinal: Yes: Soft Genitourinary: Yes: Caceres Present Edema: Yes Edema: LLE: Trace, RLE: Trace Neurological: Yes: Confusion Labs: CBC, BMP 08/20/19 07:09 08/20/19 07:09 INR, PTT INR 1.01 (0.83-1.09) 07/28/19 05:00 Problem List - Problems (1) Hypernatremia Code(s): E87.0 - HYPEROSMOLALITY AND HYPERNATREMIA (2) Hypokalemia Code(s): E87.6 - HYPOKALEMIA (3) Acute respiratory failure with hypoxia Code(s): J96.01 - ACUTE RESPIRATORY FAILURE WITH HYPOXIA (4) Bacteremia Code(s): R78.81 - BACTEREMIA Assessment/Plan Current Medications Generic Name Dose Route Start Last Admin Trade Name Freq PRN Reason Stop Dose Admin Acetaminophen 650 mg 08/08/19 18:05 08/18/19 05:39 Tylenol Oral Solution - GT 650 mg Q6H PRN Administration FEVER Albuterol/Ipratropium 1 amp 08/16/19 13:19 Duoneb - NEB Q6H PRN SHORTNESS OF BREATH Amino Acids 30 ml 08/09/19 08:00 08/20/19 10:06 Prosource No Carb Liquid Pkt GT 30 ml BID@0800,1730 TIKI Administration Artificial Tears 1 drop 08/08/19 18:05 08/10/19 10:43 Artificial Tears OU 1 drop Q12H PRN Administration DRY EYES Ascorbic Acid 500 mg 08/09/19 10:00 08/20/19 10:06 Vitamin C Oral Solution - GT 500 mg DAILY TIKI Administration Carvedilol 6.25 mg 08/20/19 09:33 08/20/19 10:07 Coreg - PO 6.25 mg BID TIKI Administration Cholecalciferol 800 unit 08/09/19 10:00 08/20/19 10:07 Vitamin D3 - NR 800 unit DAILY TIKI Administration Docusate Sodium 100 mg 08/09/19 09:46 Colace Liquid - PO DAILY PRN CONSTIPATION Enoxaparin Sodium 40 mg 08/15/19 10:00 08/20/19 10:07 Lovenox - SQ 40 mg DAILY TIKI Administration Furosemide 30 mg 08/19/19 13:06 08/20/19 10:06 Lasix Oral Solution - PO 30 mg DAILY TIKI Administration Lacosamide 200 mg 08/10/19 22:00 08/20/19 10:07 Vimpat Liquid - PO 200 mg BID TIKI Administration Levetiracetam 1,000 mg 08/10/19 22:00 08/20/19 10:08 Keppra Oral Solution - NGT 1,000 mg BID TIKI Administration Lorazepam 1 mg 08/12/19 17:16 08/19/19 14:50 Ativan Injection - IVPUSH 1 mg Q6H PRN Administration AGITATION Nystatin 500,000 units 08/08/19 18:05 Nystatin Oral Suspension - PO Q6HPO PRN ORAL PAIN/MOUTH SORES Pantoprazole Sodium 40 mg 08/14/19 11:45 08/20/19 10:06 Protonix Iv IVPUSH 40 mg DAILY TIKI Administration Phenobarbital 60 mg 08/10/19 22:00 08/20/19 10:06 Phenobarbital Liquid - NGT 60 mg BID TIKI Administration Potassium Chloride 40 meq 08/08/19 22:00 08/20/19 10:12 Potassium Chloride Oral Liquid GT 40 meq BID TIKI Administration Quetiapine Fumarate 25 mg 08/18/19 10:45 08/20/19 10:06 Seroquel - PO 25 mg DAILY TIKI Administration Spironolactone 50 mg 08/10/19 22:00 08/20/19 10:08 Aldactone - GT 50 mg BID TIKI Administration Topiramate 200 mg 08/08/19 22:00 08/20/19 05:49 Topamax - GT 200 mg TID TIKI Administration Zinc Sulfate 220 mg 08/08/19 22:00 08/20/19 10:08 Orazinc - GT 220 mg BID TIKI Administration Impression 1. hypokalemia 2. hypernatremia 3. resp failure 4. fungemia 5. covid 19 infection 6. ards 7. developemental delay 8. epilepsy 9. bactermia 10. resp acidosis with compensatory met alk Plan - decrease lasix - decrease aldactone - cont free water with feeds - repeat labs in am - monitor sodium - family considering peg
--- NOTE | 2019-08-20 15:31 | PN ---
Teaching Attending Note Name of Resident: Tomi Moya ATTENDING PHYSICIAN STATEMENT I saw and evaluated the patient. I reviewed the resident's note and discussed the case with the resident. I agree with the resident's findings and plan as documented. SUBJECTIVE: Patient seen and examined bedside, awaiting PEG tube placement likely for tomorrow, VSS. OBJECTIVE: General: NAD, trach+, deconditioned, tachypneic HEENT mucous membranes moist, no anemia, no jaundice, PERRLA, no nystagmus Neck: Status post trach clean site Chest: coarse b/l BS CVS: S1-S2 no murmur/gallop/rub Abdomen: Nondistended, soft, bowel sounds present. 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 Derm: No decubitus ulcers Vital Signs - 24 hr 08/19/19 08/19/19 08/19/19 18:00 18:25 20:40 Temperature 99.3 F Pulse Rate 117 H Respiratory 31 H 32 H 32 H Rate Blood Pressure 144/95 O2 Sat by Pulse 100 100 Oximetry (%) 08/19/19 08/19/19 08/20/19 21:00 21:34 00:17 Temperature 98.3 F Pulse Rate 119 H Respiratory 32 H 30 H Rate Blood Pressure 141/77 O2 Sat by Pulse 100 100 Oximetry (%) 08/20/19 08/20/19 08/20/19 02:00 04:02 06:00 Temperature 97.7 F 97.8 F Pulse Rate 115 H 116 H Respiratory 32 H 30 H 32 H Rate Blood Pressure 142/88 144/93 O2 Sat by Pulse 100 Oximetry (%) 08/20/19 08/20/19 08/20/19 08:55 09:00 10:00 Temperature 99.2 F Pulse Rate 108 H Respiratory 27 H 23 H Rate Blood Pressure 143/93 O2 Sat by Pulse 100 100 Oximetry (%) 08/20/19 08/20/19 13:40 14:00 Temperature 100.3 F H Pulse Rate 109 H Respiratory 31 H 30 H Rate Blood Pressure 121/83 O2 Sat by Pulse 100 Oximetry (%) Microbiology 08/18/19 12:00 Sputum - Endotrachea Suction/Ventilator AFB Smear Concentration - Final 08/18/19 12:00 Sputum - Endotrachea Suction/Ventilator Mycobacterial Culture - Preliminary 08/17/19 02:00 Blood - Peripheral Venous Blood Culture - Preliminary NO GROWTH OBTAINED AFTER 72 HOURS, INCUBATION TO CONTINUE FOR 2 DAYS. 08/17/19 02:00 Blood - Peripheral Venous Blood Culture - Preliminary NO GROWTH OBTAINED AFTER 72 HOURS, INCUBATION TO CONTINUE FOR 2 DAYS. 08/17/19 11:35 Urine - Urine Caceres Urine Culture - Final NO GROWTH OBTAINED 08/12/19 13:10 Blood - Peripheral Venous Blood Culture - Final NO GROWTH AFTER 5 DAYS INCUBATION 08/12/19 13:00 Blood - Peripheral Venous Blood Culture - Final NO GROWTH AFTER 5 DAYS INCUBATION 08/14/19 14:50 Sputum - Endotrachea Suction/Ventilator Gram Stain - Final 08/14/19 14:50 Sputum - Endotrachea Suction/Ventilator Sputum Culture - Final NORMAL RESPIRATORY RICKY 08/14/19 14:49 Stool Clostridioides difficile Antigen - Final 08/14/19 14:49 Stool Clostridioides difficile Toxin Assay - Final 08/09/19 11:45 Blood - Peripheral Venous Blood Culture - Final NO GROWTH AFTER 5 DAYS INCUBATION 08/09/19 11:52 Blood - Peripheral Venous Blood Culture - Final NO GROWTH AFTER 5 DAYS INCUBATION 08/12/19 14:45 Stool Clostridioides difficile Antigen - Final 08/12/19 14:45 Stool Clostridioides difficile Toxin Assay - Final 08/09/19 16:30 Urine - Urine Caceres Urine Culture - Final NO GROWTH OBTAINED 08/04/19 19:40 Blood - Peripheral Venous Blood Culture - Final Staphylococcus Capitis 08/04/19 19:50 Blood - Peripheral Venous Blood Culture - Final NO GROWTH AFTER 5 DAYS INCUBATION 08/05/19 13:45 Urine - Urine Caceres Urine Culture - Final NO GROWTH OBTAINED 07/31/19 16:30 Blood - Peripheral Venous Blood Culture - Final NO GROWTH AFTER 5 DAYS INCUBATION 07/31/19 17:25 Blood - Peripheral Venous Blood Culture - Final Staphylococcus Capitis 08/01/19 11:55 Sputum - Endotrachea Suction/Ventilator Gram Stain - Final 08/01/19 11:55 Sputum - Endotrachea Suction/Ventilator Sputum Culture - Final Mr S Aureus 07/29/19 11:46 Blood - Peripheral Venous Blood Culture - Final NO GROWTH AFTER 5 DAYS INCUBATION 07/29/19 11:18 Blood - Central Line Blood Culture - Final NO GROWTH AFTER 5 DAYS INCUBATION 07/29/19 11:18 Urine - Urine Caceres Urine Culture - Final NO GROWTH OBTAINED 07/12/19 11:04 Blood - Peripheral Venous Yeast/Fungus Identification - Final Janis Lusitaniae 07/18/19 21:10 Blood - Peripheral Venous Blood Culture - Final NO GROWTH AFTER 5 DAYS INCUBATION 07/18/19 18:30 Blood - Peripheral Venous Blood Culture - Final NO GROWTH AFTER 5 DAYS INCUBATION 07/15/19 12:25 Blood - Peripheral Venous Blood Culture - Final NO GROWTH AFTER 5 DAYS INCUBATION 07/16/19 15:15 Blood - Peripheral Venous Blood Culture - Final Staphylococcus Epidermidis 07/14/19 11:30 Blood - Peripheral Venous Blood Culture - Final NO GROWTH AFTER 5 DAYS INCUBATION 07/16/19 15:05 Blood - Peripheral Venous Blood Culture - Final Staphylococcus Epidermidis 07/16/19 12:30 Sputum - Endotrachea Suction/Ventilator Gram Stain - Final 07/16/19 12:30 Sputum - Endotrachea Suction/Ventilator Sputum Culture - Final Mr S Aureus Escherichia Coli 07/12/19 10:55 Blood - Peripheral Venous Blood Culture - Final NO GROWTH AFTER 5 DAYS INCUBATION 07/16/19 12:30 Urine - Urine - Catheterized Urine Culture - Final NO GROWTH OBTAINED 07/12/19 06:00 Sputum - Endotrachea Suction/Ventilator Gram Stain - Final 07/12/19 06:00 Sputum - Endotrachea Suction/Ventilator Sputum Culture - Final 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 Mr S Aureus 07/12/19 11:04 Blood - Peripheral Venous Blood Culture - Final 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 07/01/19 18:15 Blood - Peripheral Venous Blood Culture - Final NO GROWTH AFTER 5 DAYS INCUBATION 06/29/19 12:30 Blood - Peripheral Venous Blood Culture - Final Staphylococcus Epidermidis 06/30/19 17:15 Sputum - Endotrachea Suction/Ventilator Gram Stain - Final 06/30/19 17:15 Sputum - Endotrachea Suction/Ventilator Sputum Culture - Final Escherichia Coli Esbl Electrical Assistant 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 06/28/19 09:00 Blood - Peripheral Venous Blood Culture - Final Staphylococcus Epidermidis 06/28/19 12:50 Sputum - Endotrachea Suction/Ventilator Gram Stain - Final 06/28/19 12:50 Sputum - Endotrachea Suction/Ventilator Sputum Culture - Final 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 Staphylococcus Aureus 06/25/19 13:40 Blood - Peripheral Venous Blood Culture - Final NO GROWTH AFTER 5 DAYS INCUBATION 06/25/19 13:20 Blood - Peripheral Venous Blood Culture - Final NO GROWTH AFTER 5 DAYS INCUBATION 06/28/19 12:51 Urine - Urine Caceres Urine Culture - Final NO GROWTH OBTAINED 06/22/19 13:00 Blood - Peripheral Venous Blood Culture - Final Staphylococcus Warneri 06/22/19 13:00 Blood - Peripheral Venous Blood Culture - Final Staphylococcus Epidermidis 06/24/19 00:01 Urine - Urine Caceres Urine Culture - Final NO GROWTH OBTAINED 06/24/19 00:01 Urine For Antigen Detection Legionella Antigen - Final 06/24/19 00:01 Urine For Antigen Detection Streptococcus pneumoniae Antigen (M - Final Laboratory Results - last 24 hr 08/20/19 08/20/19 07:09 07:09 WBC 16.3 H RBC 3.82 L Hgb 10.7 L Hct 34.4 L MCV 90.1 MCH 28.0 MCHC 31.1 L RDW 17.5 H Plt Count 476 H MPV 11.1 Absolute Neuts (auto) 11.6 H Neutrophils % 71.1 Lymphocytes % 17.7 Monocytes % 7.3 Eosinophils % 3.2 Basophils % 0.7 Nucleated RBC % 0 Sodium 146 H Potassium 4.2 Chloride 112 H Carbon Dioxide 26 Anion Gap 8 BUN 23.0 H Creatinine 0.5 L Est GFR (CKD-EPI)AfAm 159.33 Est GFR (CKD-EPI)NonAf 137.47 Random Glucose 103 Calcium 10.1 Total Bilirubin 0.4 AST 46 H ALT 99 H Alkaline Phosphatase 159 H Total Protein 7.1 Albumin 3.0 L Home Medications Medication Instructions Recorded Topiramate [Topamax -] 200 mg PO TID #90 tablet 06/10/18 Lacosamide [Vimpat] 200 mg PO BID #60 tablet MDD 2 06/11/18 Phenobarbital - 60 mg PO BID #120 tablet MDD 4 06/11/18 levETIRAcetam [Keppra -] 1,000 mg PO BID 06/22/19 Current Medications Generic Name Dose Route Start Last Admin Trade Name Freq PRN Reason Stop Dose Admin Albuterol/Ipratropium 1 amp 08/16/19 13:19 Duoneb - NEB Q6H PRN SHORTNESS OF BREATH Amino Acids 30 ml 08/09/19 08:00 08/20/19 10:06 Prosource No Carb Liquid Pkt GT 30 ml BID@0800,1730 TIKI Administration Artificial Tears 1 drop 08/08/19 18:05 08/10/19 10:43 Artificial Tears OU 1 drop Q12H PRN Administration DRY EYES Ascorbic Acid 500 mg 08/09/19 10:00 08/20/19 10:06 Vitamin C Oral Solution - GT 500 mg DAILY TIKI Administration Carvedilol 6.25 mg 08/20/19 09:33 08/20/19 10:07 Coreg - PO 6.25 mg BID TIKI Administration Cholecalciferol 800 unit 08/09/19 10:00 08/20/19 10:07 Vitamin D3 - NR 800 unit DAILY TIKI Administration Docusate Sodium 100 mg 08/09/19 09:46 Colace Liquid - PO DAILY PRN CONSTIPATION Enoxaparin Sodium 40 mg 08/15/19 10:00 08/20/19 10:07 Lovenox - SQ 40 mg DAILY TIKI Administration Furosemide 20 mg 08/20/19 13:33 Lasix Oral Solution - PO DAILY TIKI Lacosamide 200 mg 08/10/19 22:00 08/20/19 10:07 Vimpat Liquid - PO 200 mg BID TIKI Administration Levetiracetam 1,000 mg 08/10/19 22:00 08/20/19 10:08 Keppra Oral Solution - NGT 1,000 mg BID TIKI Administration Lorazepam 1 mg 08/12/19 17:16 08/19/19 14:50 Ativan Injection - IVPUSH 1 mg Q6H PRN Administration AGITATION Nystatin 500,000 units 08/08/19 18:05 Nystatin Oral Suspension - PO Q6HPO PRN ORAL PAIN/MOUTH SORES Pantoprazole Sodium 40 mg 08/14/19 11:45 08/20/19 10:06 Protonix Iv IVPUSH 40 mg DAILY TIKI Administration Phenobarbital 60 mg 08/10/19 22:00 08/20/19 10:06 Phenobarbital Liquid - NGT 60 mg BID TIKI Administration Potassium Chloride 40 meq 08/08/19 22:00 08/20/19 10:12 Potassium Chloride Oral Liquid GT 40 meq BID TIKI Administration Quetiapine Fumarate 25 mg 08/18/19 10:45 08/20/19 10:06 Seroquel - PO 25 mg DAILY TIKI Administration Spironolactone 50 mg 08/21/19 10:00 Aldactone - GT DAILY TIKI Topiramate 200 mg 08/08/19 22:00 08/20/19 13:49 Topamax - GT 200 mg TID TIKI Administration Zinc Sulfate 220 mg 08/08/19 22:00 08/20/19 10:08 Orazinc - GT 220 mg BID TIKI Administration ASSESSMENT AND PLAN: 39 M Acute Resp Failure 2/2 COVID-19 s/p trach/plasma/Actemra Sepsis 2/2 polymicrobial infections (fungemia/bacteremia/COVID) Tachycardia Transaminitis Epilepsy Mental retardation Developmental delay Deconditioning Anemia Plan: Cont. Nystatin for fungemia, strongyloides labs pending Coreg started for tachycardia/HTN, improving Limit IVF Wean vent to minimize FiO2 req. Cont. psych meds, Ativan PRN for anxiety/tachypnea Aggressive replacements of electrolytes IR consult for PEG placement DVT ppx: Lovenox SC (FOBT negative)
[2019-08-21] MEDS: TOPIRAMATE 200 MG TABLET GT SCH ×3 (05:40→21:49)
[2019-08-21 08:30] LABS: BILIRUBIN,TOTAL 0.4 mg/dL (0.2-1); BLOOD UREA NITROGEN 23.4 mg/dL (7-18); CALCIUM 9.6 mg/dL (8.5-10.1); CREATININE 0.6 mg/dL (0.55-1.3); POTASSIUM 3.8 mmol/L (3.5-5.1)
[2019-08-21] MEDS: ZINC SULFATE 220 MG CAPSULE (FP) GT SCH ×2 (10:20→21:50)
[2019-08-21] MEDS: AMINO ACIDS/PROTEIN HYDROLYS 30 ML LIQUID.PKT GT SCH ×3 (10:20→16:35)
[2019-08-21] MEDS: CARVEDILOL 6.25 MG TABLET (FP) PO SCH ×2 (10:20→21:49)
[2019-08-21] MEDS: SPIRONOLACTONE 25 MG TABLET GT SCH (10:20)
[2019-08-21] MEDS: levETIRAcetam 500 MG/5 ML ORAL SOLUTION (UNIT-DOSE CUPS) NGT SCH ×2 (10:20→21:50)
[2019-08-21] MEDS: FUROSEMIDE 40 MG/5 ML UNIT-DOSE CUP PO SCH ×2 (10:20→16:05)
[2019-08-21] MEDS: QUEtiapine FUMARATE 25 MG TABLET PO SCH (10:21)
[2019-08-21] MEDS: ASCORBIC ACID 500 MG/5 ML UNIT DOSE CUP GT SCH ×2 (10:21→16:06)
[2019-08-21] MEDS: PANTOPRAZOLE SODIUM 40 MG VIAL IVPUSH SCH (10:21)
[2019-08-21] MEDS: POTASSIUM CHLORIDE ORAL LIQUID 20 MEQ/15 ML GT SCH ×2 (10:21→21:50)
[2019-08-21] MEDS: PHENobarbital 20 MG/5 ML UNIT-DOSE CUP NGT SCH ×2 (10:21→21:49)
[2019-08-21] MEDS: Lacosamide 50 MG/5 ML ORAL SOLUTION UNIT CUPS PO SCH ×2 (10:21→21:50)
[2019-08-21] MEDS: CHOLECALCIFEROL (VIT D3) 400 UNIT (10 MCG) TABLET NR SCH (10:22)
--- NOTE | 2019-08-21 10:24 | PN ---
Progress Note, Physician History of Present Illness: pulmonary awake,alert,comfortable on vent support,for gt placement today. Pplat 14. tmax 101.5 - Current Medication List Current Medications: Active Medications Albuterol/Ipratropium (Duoneb -) 1 amp NEB Q6H PRN PRN Reason: SHORTNESS OF BREATH Amino Acids (Prosource No Carb Liquid Pkt) 30 ml GT BID@0800,1730 [facility] Last Admin: 08/21/19 10:20 Dose: Not Given Documented by: Artificial Tears (Artificial Tears) 1 drop OU Q12H PRN PRN Reason: DRY EYES Last Admin: 08/10/19 10:43 Dose: 1 drop Documented by: Ascorbic Acid (Vitamin C Oral Solution -) 500 mg GT DAILY [facility] Last Admin: 08/21/19 10:21 Dose: Not Given Documented by: Carvedilol (Coreg -) 6.25 mg PO BID [facility] Last Admin: 08/21/19 10:20 Dose: Not Given Documented by: Cholecalciferol (Vitamin D3 -) 800 unit NR DAILY [facility] Last Admin: 08/21/19 10:22 Dose: Not Given Documented by: Docusate Sodium (Colace Liquid -) 100 mg PO DAILY PRN PRN Reason: CONSTIPATION Enoxaparin Sodium (Lovenox -) 40 mg SQ DAILY [facility] Last Admin: 08/20/19 10:07 Dose: 40 mg Documented by: Furosemide (Lasix Oral Solution -) 20 mg PO DAILY [facility] Last Admin: 08/21/19 10:20 Dose: Not Given Documented by: Lacosamide (Vimpat Liquid -) 200 mg PO BID [facility] Last Admin: 08/21/19 10:21 Dose: Not Given Documented by: Levetiracetam (Keppra Oral Solution -) 1,000 mg NGT BID [facility] Last Admin: 08/21/19 10:20 Dose: Not Given Documented by: Lorazepam (Ativan Injection -) 1 mg IVPUSH Q6H PRN PRN Reason: AGITATION Last Admin: 08/19/19 14:50 Dose: 1 mg Documented by: Nystatin (Nystatin Oral Suspension -) 500,000 units PO Q6HPO PRN PRN Reason: ORAL PAIN/MOUTH SORES Pantoprazole Sodium (Protonix Iv) 40 mg IVPUSH DAILY [facility] Last Admin: 08/21/19 10:21 Dose: Not Given Documented by: Phenobarbital (Phenobarbital Liquid -) 60 mg NGT BID [facility] Last Admin: 08/21/19 10:21 Dose: Not Given Documented by: Potassium Chloride (Potassium Chloride Oral Liquid) 40 meq GT BID [facility] Last Admin: 08/21/19 10:21 Dose: Not Given Documented by: Quetiapine Fumarate (Seroquel -) 25 mg PO DAILY [facility] Last Admin: 08/21/19 10:21 Dose: Not Given Documented by: Spironolactone (Aldactone -) 50 mg GT DAILY [facility] Last Admin: 08/21/19 10:20 Dose: Not Given Documented by: Topiramate (Topamax -) 200 mg GT TID [facility] Last Admin: 08/21/19 05:40 Dose: 200 mg Documented by: Zinc Sulfate (Orazinc -) 220 mg GT BID [facility] Last Admin: 08/21/19 10:20 Dose: Not Given Documented by: - Objective Vital Signs: Vital Signs Temperature 101.5 F H 08/21/19 09:12 Pulse Rate 118 H 08/21/19 09:12 Respiratory Rate 30 H 08/21/19 09:12 Blood Pressure 142/90 08/21/19 09:12 O2 Sat by Pulse Oximetry (%) 100 08/21/19 09:00 Constitutional: Yes: Well Nourished, Calm Eyes: Yes: WNL HENT: Yes: WNL Neck: Yes: Supple (tracg) Cardiovascular: Yes: Regular Rate and Rhythm, S1, S2 Respiratory: Yes: Rhonchi (sacttered maeve rhonchi) Gastrointestinal: Yes: Normal Bowel Sounds, Soft Extremities: Yes: WNL Edema: No Labs: CBC, BMP 08/20/19 07:09 08/21/19 07:20 INR, PTT INR 1.01 (0.83-1.09) 07/28/19 05:00 Problem List - Problems (1) COVID-19 Code(s): U07.1 - COVID POSITIVE (2) COVID-19 Code(s): U07.1 - COVID POSITIVE (3) Acute respiratory failure with hypoxia Code(s): J96.01 - ACUTE RESPIRATORY FAILURE WITH HYPOXIA (4) Seizure disorder Code(s): G40.909 - EPILEPSY, UNSP, NOT INTRACTABLE, WITHOUT STATUS EPILEPTICUS (5) Status epilepticus Code(s): G40.901 - EPILEPSY, UNSP, NOT INTRACTABLE, WITH STATUS EPILEPTICUS Assessment/Plan ASSESSMENT AND PLAN: Acute Hypoxic and Hypercapneic Respiratory Failure COVID19 Pneumonia E Coli Pneumonia Fungenmia Bacteremia Septic Shock Seizure Disorder Mental Retardation ABNORMAL LFTS fever gt placement today - Ativan PRN - antiepileptics - lasix, aldactone - monitor urine output, creatinine - low tidal volume ventilation - titrate FiO2, PEEP to keep SpO2 >90% - spontaeneous breathing trials as tolerated - enteral feeds: Should have PEG insertion - DVT/GI prophylaxis - monitor lfts - inhaled bronchodilators Dr MARTINEZ
--- NOTE | 2019-08-21 10:43 | PN ---
Progress Note (short form) - Note Progress Note: rmore alert and responsive low grade temp overnight Vital Signs Period Temp Pulse Resp BP Sys/Ortiz Pulse Ox Last 24 Hr 98.5 F-101.5 F 109-124 30-31 121-146/69-95 99-100 cor-rrr lungs decreased bs at bases abd soft,nt ext no edema trach to vent CBC, BMP 08/20/19 07:09 08/21/19 07:20 Microbiology 08/18/19 12:00 Sputum - Endotrachea Suction/Ventilator AFB Smear Concentration - Final 08/18/19 12:00 Sputum - Endotrachea Suction/Ventilator Mycobacterial Culture - Preliminary 08/17/19 02:00 Blood - Peripheral Venous Blood Culture - Preliminary NO GROWTH OBTAINED AFTER 96 HOURS, INCUBATION TO CONTINUE FOR 1 DAYS. 08/17/19 02:00 Blood - Peripheral Venous Blood Culture - Preliminary NO GROWTH OBTAINED AFTER 96 HOURS, INCUBATION TO CONTINUE FOR 1 DAYS. 08/17/19 11:35 Urine - Urine Caceres Urine Culture - Final NO GROWTH OBTAINED 08/12/19 13:10 Blood - Peripheral Venous Blood Culture - Final NO GROWTH AFTER 5 DAYS INCUBATION 08/12/19 13:00 Blood - Peripheral Venous Blood Culture - Final NO GROWTH AFTER 5 DAYS INCUBATION 08/14/19 14:50 Sputum - Endotrachea Suction/Ventilator Gram Stain - Final 08/14/19 14:50 Sputum - Endotrachea Suction/Ventilator Sputum Culture - Final NORMAL RESPIRATORY RICKY 08/14/19 14:49 Stool Clostridioides difficile Antigen - Final 08/14/19 14:49 Stool Clostridioides difficile Toxin Assay - Final 08/09/19 11:45 Blood - Peripheral Venous Blood Culture - Final NO GROWTH AFTER 5 DAYS INCUBATION 08/09/19 11:52 Blood - Peripheral Venous Blood Culture - Final NO GROWTH AFTER 5 DAYS INCUBATION 08/12/19 14:45 Stool Clostridioides difficile Antigen - Final 08/12/19 14:45 Stool Clostridioides difficile Toxin Assay - Final 08/09/19 16:30 Urine - Urine Caceres Urine Culture - Final NO GROWTH OBTAINED 08/04/19 19:40 Blood - Peripheral Venous Blood Culture - Final Staphylococcus Capitis 08/04/19 19:50 Blood - Peripheral Venous Blood Culture - Final NO GROWTH AFTER 5 DAYS INCUBATION 08/05/19 13:45 Urine - Urine Caceres Urine Culture - Final NO GROWTH OBTAINED 07/31/19 16:30 Blood - Peripheral Venous Blood Culture - Final NO GROWTH AFTER 5 DAYS INCUBATION 07/31/19 17:25 Blood - Peripheral Venous Blood Culture - Final Staphylococcus Capitis 08/01/19 11:55 Sputum - Endotrachea Suction/Ventilator Gram Stain - Final 08/01/19 11:55 Sputum - Endotrachea Suction/Ventilator Sputum Culture - Final Mr S Aureus 07/29/19 11:46 Blood - Peripheral Venous Blood Culture - Final NO GROWTH AFTER 5 DAYS INCUBATION 07/29/19 11:18 Blood - Central Line Blood Culture - Final NO GROWTH AFTER 5 DAYS INCUBATION 07/29/19 11:18 Urine - Urine Caceres Urine Culture - Final NO GROWTH OBTAINED 07/12/19 11:04 Blood - Peripheral Venous Yeast/Fungus Identification - Final Janis Lusitaniae 07/18/19 21:10 Blood - Peripheral Venous Blood Culture - Final NO GROWTH AFTER 5 DAYS INCUBATION 07/18/19 18:30 Blood - Peripheral Venous Blood Culture - Final NO GROWTH AFTER 5 DAYS INCUBATION 07/15/19 12:25 Blood - Peripheral Venous Blood Culture - Final NO GROWTH AFTER 5 DAYS INCUBATION 07/16/19 15:15 Blood - Peripheral Venous Blood Culture - Final Staphylococcus Epidermidis 07/14/19 11:30 Blood - Peripheral Venous Blood Culture - Final NO GROWTH AFTER 5 DAYS INCUBATION 07/16/19 15:05 Blood - Peripheral Venous Blood Culture - Final Staphylococcus Epidermidis 07/16/19 12:30 Sputum - Endotrachea Suction/Ventilator Gram Stain - Final 07/16/19 12:30 Sputum - Endotrachea Suction/Ventilator Sputum Culture - Final Mr S Aureus Escherichia Coli 07/12/19 10:55 Blood - Peripheral Venous Blood Culture - Final NO GROWTH AFTER 5 DAYS INCUBATION 07/16/19 12:30 Urine - Urine - Catheterized Urine Culture - Final NO GROWTH OBTAINED 07/12/19 06:00 Sputum - Endotrachea Suction/Ventilator Gram Stain - Final 07/12/19 06:00 Sputum - Endotrachea Suction/Ventilator Sputum Culture - Final 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 Mr S Aureus 07/12/19 11:04 Blood - Peripheral Venous Blood Culture - Final 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 07/01/19 18:15 Blood - Peripheral Venous Blood Culture - Final NO GROWTH AFTER 5 DAYS INCUBATION 06/29/19 12:30 Blood - Peripheral Venous Blood Culture - Final Staphylococcus Epidermidis 06/30/19 17:15 Sputum - Endotrachea Suction/Ventilator Gram Stain - Final 06/30/19 17:15 Sputum - Endotrachea Suction/Ventilator Sputum Culture - Final Escherichia Coli Esbl Apparel Pattern Maker 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 06/28/19 09:00 Blood - Peripheral Venous Blood Culture - Final Staphylococcus Epidermidis 06/28/19 12:50 Sputum - Endotrachea Suction/Ventilator Gram Stain - Final 06/28/19 12:50 Sputum - Endotrachea Suction/Ventilator Sputum Culture - Final 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 Staphylococcus Aureus 06/25/19 13:40 Blood - Peripheral Venous Blood Culture - Final NO GROWTH AFTER 5 DAYS INCUBATION 06/25/19 13:20 Blood - Peripheral Venous Blood Culture - Final NO GROWTH AFTER 5 DAYS INCUBATION 06/28/19 12:51 Urine - Urine Caceres Urine Culture - Final NO GROWTH OBTAINED 06/22/19 13:00 Blood - Peripheral Venous Blood Culture - Final Staphylococcus Warneri 06/22/19 13:00 Blood - Peripheral Venous Blood Culture - Final Staphylococcus Epidermidis 06/24/19 00:01 Urine - Urine Caceres Urine Culture - Final NO GROWTH OBTAINED 06/24/19 00:01 Urine For Antigen Detection Legionella Antigen - Final 06/24/19 00:01 Urine For Antigen Detection Streptococcus pneumoniae Antigen (M - Final covid pcr negative (repeat) quantiferon negative imp/reccd chronic resp failure recurrent fevers-reculture if fevers persist- observe off antibiotics recent ct scans not helpful consider [employer] 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 given improving mental status sputum for afb given persistent upper lobe infiltrates and fever s/p tocilizumab ARDS/pneumonia- sputum MRSA s/p staph epi bacteremia- fungemia- janis lusitanae- has completed 14 days cancidas- repeat cultures negative covid 19 positive -repeat pcr negative s/p convalescent plasma s/p tocilizumab MRSA isolation for positive sputum culture- esbl isolation for prior sputum ecoli esbl afb sputum strongyloides antibody now with rectal tube, check stool cdiff d/w hsopitalist Problem List - Problems (1) Suspected COVID-19 virus infection Code(s): R68.89 - OTHER GENERAL SYMPTOMS AND SIGNS (2) Acute respiratory failure with hypoxia Code(s): J96.01 - ACUTE RESPIRATORY FAILURE WITH HYPOXIA (3) Bacteremia Code(s): R78.81 - BACTEREMIA
[2019-08-21 12:14] LABS: INR 1.2 (0.83-1.09); PROTHROMBIN TIME (PATIENT) 14.2 SEC (9.7-13.0)
--- NOTE | 2019-08-21 15:25 | PN ---
Progress Note, Physician History of Present Illness: Pt seen and examined at bedside. He is awake. - Current Medication List Current Medications: Active Medications Acetaminophen (Tylenol -) 650 mg PO Q6H PRN PRN Reason: Fever Or Pain Albuterol/Ipratropium (Duoneb -) 1 amp NEB Q6H PRN PRN Reason: SHORTNESS OF BREATH Amino Acids (Prosource No Carb Liquid Pkt) 30 ml GT BID@0800,1730 [facility] Last Admin: 08/21/19 10:20 Dose: Not Given Documented by: Artificial Tears (Artificial Tears) 1 drop OU Q12H PRN PRN Reason: DRY EYES Last Admin: 08/10/19 10:43 Dose: 1 drop Documented by: Ascorbic Acid (Vitamin C Oral Solution -) 500 mg GT DAILY [facility] Last Admin: 08/21/19 10:21 Dose: Not Given Documented by: Carvedilol (Coreg -) 6.25 mg PO BID [facility] Last Admin: 08/21/19 10:20 Dose: Not Given Documented by: Cholecalciferol (Vitamin D3 -) 800 unit NR DAILY [facility] Last Admin: 08/21/19 10:22 Dose: Not Given Documented by: Docusate Sodium (Colace Liquid -) 100 mg PO DAILY PRN PRN Reason: CONSTIPATION Enoxaparin Sodium (Lovenox -) 40 mg SQ DAILY [facility] Last Admin: 08/20/19 10:07 Dose: 40 mg Documented by: Furosemide (Lasix Oral Solution -) 20 mg PO DAILY [facility] Last Admin: 08/21/19 10:20 Dose: Not Given Documented by: Lacosamide (Vimpat Liquid -) 200 mg PO BID [facility] Last Admin: 08/21/19 10:21 Dose: Not Given Documented by: Levetiracetam (Keppra Oral Solution -) 1,000 mg NGT BID [facility] Last Admin: 08/21/19 10:20 Dose: Not Given Documented by: Lorazepam (Ativan Injection -) 1 mg IVPUSH Q6H PRN PRN Reason: AGITATION Last Admin: 08/19/19 14:50 Dose: 1 mg Documented by: Nystatin (Nystatin Oral Suspension -) 500,000 units PO Q6HPO PRN PRN Reason: ORAL PAIN/MOUTH SORES Nystatin (Nystop Powder -) 1 applic TP BID [facility] Pantoprazole Sodium (Protonix Iv) 40 mg IVPUSH DAILY [facility] Last Admin: 08/21/19 10:21 Dose: Not Given Documented by: Phenobarbital (Phenobarbital Liquid -) 60 mg NGT BID [facility] Last Admin: 08/21/19 10:21 Dose: Not Given Documented by: Potassium Chloride (Potassium Chloride Oral Liquid) 40 meq GT BID [facility] Last Admin: 08/21/19 10:21 Dose: Not Given Documented by: Quetiapine Fumarate (Seroquel -) 25 mg PO DAILY [facility] Last Admin: 08/21/19 10:21 Dose: Not Given Documented by: Spironolactone (Aldactone -) 50 mg GT DAILY [facility] Last Admin: 08/21/19 10:20 Dose: Not Given Documented by: Topiramate (Topamax -) 200 mg GT TID [facility] Last Admin: 08/21/19 05:40 Dose: 200 mg Documented by: Zinc Sulfate (Orazinc -) 220 mg GT BID [facility] Last Admin: 08/21/19 10:20 Dose: Not Given Documented by: - Objective Vital Signs: Vital Signs Temperature 97.7 F 08/21/19 14:00 Pulse Rate 95 H 08/21/19 13:23 Respiratory Rate 24 H 08/21/19 13:23 Blood Pressure 156/98 08/21/19 13:23 O2 Sat by Pulse Oximetry (%) 100 08/21/19 13:23 Constitutional: Yes: Calm Eyes: Yes: Conjunctiva Clear HENT: Yes: Atraumatic Neck: Yes: Supple Cardiovascular: Yes: S1, S2 Respiratory: Yes: Mechanically Ventilated Gastrointestinal: Yes: Soft Edema: LLE: Trace, RLE: Trace Neurological: Yes: Other (awake) Labs: CBC, BMP 08/20/19 07:09 08/21/19 07:20 INR, PTT INR 1.20 (0.83-1.09) H 08/21/19 11:30 Problem List - Problems (1) Hypernatremia Code(s): E87.0 - HYPEROSMOLALITY AND HYPERNATREMIA (2) Hypokalemia Code(s): E87.6 - HYPOKALEMIA (3) Acute respiratory failure with hypoxia Code(s): J96.01 - ACUTE RESPIRATORY FAILURE WITH HYPOXIA (4) Bacteremia Code(s): R78.81 - BACTEREMIA Assessment/Plan Current Medications Generic Name Dose Route Start Last Admin Trade Name Freq PRN Reason Stop Dose Admin Acetaminophen 650 mg 08/21/19 13:08 Tylenol - PO Q6H PRN Fever Or Pain Albuterol/Ipratropium 1 amp 08/16/19 13:19 Duoneb - NEB Q6H PRN SHORTNESS OF BREATH Amino Acids 30 ml 08/09/19 08:00 08/21/19 10:20 Prosource No Carb Liquid Pkt GT Not Given BID@0800,1730 [facility] Artificial Tears 1 drop 08/08/19 18:05 08/10/19 10:43 Artificial Tears OU 1 drop Q12H PRN Administration DRY EYES Ascorbic Acid 500 mg 08/09/19 10:00 08/21/19 10:21 Vitamin C Oral Solution - GT Not Given DAILY [facility] Carvedilol 6.25 mg 08/20/19 09:33 08/21/19 10:20 Coreg - PO Not Given BID [facility] Cholecalciferol 800 unit 08/09/19 10:00 08/21/19 10:22 Vitamin D3 - NR Not Given DAILY [facility] Docusate Sodium 100 mg 08/09/19 09:46 Colace Liquid - PO DAILY PRN CONSTIPATION Enoxaparin Sodium 40 mg 08/15/19 10:00 08/20/19 10:07 Lovenox - SQ 40 mg DAILY [facility] Administration Furosemide 20 mg 08/20/19 13:33 08/21/19 10:20 Lasix Oral Solution - PO Not Given DAILY [facility] Lacosamide 200 mg 08/10/19 22:00 08/21/19 10:21 Vimpat Liquid - PO Not Given BID [facility] Levetiracetam 1,000 mg 08/10/19 22:00 08/21/19 10:20 Keppra Oral Solution - NGT Not Given BID [facility] Lorazepam 1 mg 08/12/19 17:16 08/19/19 14:50 Ativan Injection - IVPUSH 1 mg Q6H PRN Administration AGITATION Nystatin 500,000 units 08/08/19 18:05 Nystatin Oral Suspension - PO Q6HPO PRN ORAL PAIN/MOUTH SORES Nystatin 1 applic 08/21/19 11:15 Nystop Powder - TP BID [facility] Pantoprazole Sodium 40 mg 08/14/19 11:45 08/21/19 10:21 Protonix Iv IVPUSH Not Given DAILY [facility] Phenobarbital 60 mg 08/10/19 22:00 08/21/19 10:21 Phenobarbital Liquid - NGT Not Given BID [facility] Potassium Chloride 40 meq 08/08/19 22:00 08/21/19 10:21 Potassium Chloride Oral Liquid GT Not Given BID [facility] Quetiapine Fumarate 25 mg 08/18/19 10:45 08/21/19 10:21 Seroquel - PO Not Given DAILY [facility] Spironolactone 50 mg 08/21/19 10:00 08/21/19 10:20 Aldactone - GT Not Given DAILY [facility] Topiramate 200 mg 08/08/19 22:00 08/21/19 05:40 Topamax - GT 200 mg TID [facility] Administration Zinc Sulfate 220 mg 08/08/19 22:00 08/21/19 10:20 Orazinc - GT Not Given BID [facility] Impression 1. hypokalemia 2. hypernatremia 3. resp failure 4. fungemia 5. covid 19 infection 6. ards 7. developemental delay 8. epilepsy 9. bactermia 10. resp acidosis with compensatory met alk Plan - cont lasix at 20 and aldactone at 50 - monitor volume status - sodium improving - vent support - cont free water with feeds - repeat labs in am - monitor sodium
--- NOTE | 2019-08-21 15:30 | PN ---
Physical Exam: SUBJECTIVE: Patient seen and examined bedside, w/ contracted RUE/RLE, OBJECTIVE: General: NAD, trach+, deconditioned, tachypneic HEENT mucous membranes moist, no anemia, no jaundice, PERRLA, no nystagmus Neck: Status post trach clean site Chest: coarse b/l BS CVS: S1-S2 no murmur/gallop/rub Abdomen: Nondistended, soft, bowel sounds present. Extremities: No edema., No Calf tenderness, pulses present [employer]: Alert nonverbal Derm: No decubitus ulcers Vital Signs Period Temp Pulse Resp BP Sys/Ortiz Pulse Ox Last 24 Hr 97.7 F-101.5 F 90-124 24-31 132-156/69-109 98-100 Laboratory Results - last 24 hr 08/19/19 08/21/19 08/21/19 07:10 07:20 11:30 PT with INR 14.20 H INR 1.20 H Sodium 144 Potassium 3.8 Chloride 112 H Carbon Dioxide 24 Anion Gap 8 BUN 23.4 H Creatinine 0.6 Est GFR (CKD-EPI)AfAm 147.82 Est GFR (CKD-EPI)NonAf 127.55 Random Glucose 99 Calcium 9.6 Total Bilirubin 0.4 AST 49 H ALT 90 H Alkaline Phosphatase 148 H Total Protein 7.0 Albumin 3.0 L Strongyloides IgG Ab Negative Active Medications Generic Name Dose Route Start Last Admin Trade Name Freq PRN Reason Stop Dose Admin Acetaminophen 650 mg 08/21/19 13:08 Tylenol - PO Q6H PRN Fever Or Pain Albuterol/Ipratropium 1 amp 08/16/19 13:19 Duoneb - NEB Q6H PRN SHORTNESS OF BREATH Amino Acids 30 ml 08/09/19 08:00 08/21/19 10:20 Prosource No Carb Liquid Pkt GT Not Given BID@0800,1730 [facility] Artificial Tears 1 drop 08/08/19 18:05 08/10/19 10:43 Artificial Tears OU 1 drop Q12H PRN Administration DRY EYES Ascorbic Acid 500 mg 08/09/19 10:00 08/21/19 10:21 Vitamin C Oral Solution - GT Not Given DAILY [facility] Carvedilol 6.25 mg 08/20/19 09:33 08/21/19 10:20 Coreg - PO Not Given BID [facility] Cholecalciferol 800 unit 08/09/19 10:00 08/21/19 10:22 Vitamin D3 - NR Not Given DAILY [facility] Docusate Sodium 100 mg 08/09/19 09:46 Colace Liquid - PO DAILY PRN CONSTIPATION Enoxaparin Sodium 40 mg 08/15/19 10:00 08/20/19 10:07 Lovenox - SQ 40 mg DAILY [facility] Administration Furosemide 20 mg 08/20/19 13:33 08/21/19 10:20 Lasix Oral Solution - PO Not Given DAILY [facility] Lacosamide 200 mg 08/10/19 22:00 08/21/19 10:21 Vimpat Liquid - PO Not Given BID [facility] Levetiracetam 1,000 mg 08/10/19 22:00 08/21/19 10:20 Keppra Oral Solution - NGT Not Given BID [facility] Lorazepam 1 mg 08/12/19 17:16 08/19/19 14:50 Ativan Injection - IVPUSH 1 mg Q6H PRN Administration AGITATION Nystatin 500,000 units 08/08/19 18:05 Nystatin Oral Suspension - PO Q6HPO PRN ORAL PAIN/MOUTH SORES Nystatin 1 applic 08/21/19 11:15 Nystop Powder - TP BID [facility] Pantoprazole Sodium 40 mg 08/14/19 11:45 08/21/19 10:21 Protonix Iv IVPUSH Not Given DAILY [facility] Phenobarbital 60 mg 08/10/19 22:00 08/21/19 10:21 Phenobarbital Liquid - NGT Not Given BID [facility] Potassium Chloride 40 meq 08/08/19 22:00 08/21/19 10:21 Potassium Chloride Oral Liquid GT Not Given BID [facility] Quetiapine Fumarate 25 mg 08/18/19 10:45 08/21/19 10:21 Seroquel - PO Not Given DAILY [facility] Spironolactone 50 mg 08/21/19 10:00 08/21/19 10:20 Aldactone - GT Not Given DAILY [facility] Topiramate 200 mg 08/08/19 22:00 08/21/19 05:40 Topamax - GT 200 mg TID [facility] Administration Zinc Sulfate 220 mg 08/08/19 22:00 08/21/19 10:20 Orazinc - GT Not Given BID [facility] ASSESSMENT/PLAN: 39 M Acute Resp Failure 2/2 COVID-19 s/p trach/plasma/Actemra Sepsis 2/2 polymicrobial infections (fungemia/bacteremia/COVID) Tachycardia Transaminitis Epilepsy Mental retardation Developmental delay Deconditioning Anemia Plan: Cont. Nystatin for fungemia, strongyloides labs pending Coreg started for tachycardia/HTN, improving For G tube placement today, obtain post G tube CBC Limit IVF Wean vent to minimize FiO2 req. Cont. psych meds, Ativan PRN for anxiety/tachypnea Aggressive replacements of electrolytes DVT ppx: Lovenox SC (FOBT negative) Visit type - Emergency Visit Emergency Visit: Yes ED Registration Date: 06/22/19 Care time: The patient presented to the Emergency Department on the above date and was hospitalized for further evaluation of their emergent condition. - New Patient This patient is new to me today: No - Critical Care Critical Care patient: No - Discharge Referral Referred to [facility] Med [facility] No
[2019-08-21] MEDS ORDERED: PT OWN MED DRAWER 7, Y5N ONE ×3 (16:02→21:34)
[2019-08-21] MEDS: NYSTATIN POWDER 100,000 UNITS/GM - 15 GM TOPICAL POWDER TP SCH ×2 (16:04→22:16)
--- NOTE | 2019-08-21 17:38 | CON.NEURO ---
Consult Consult Specialty:: Pratik neurology Referred by:: PCP Reason for Consultation:: right sided constracture - History of Present Illness History of Present Illness: 39 years old man with PMH OA epilepsy, mild mental retardation came in two month ago to [facility] who presented with tachypnea. Patient initially tested positive for COVID and was seen by multiple specialist neurology was called to see [facility] patient to evaluate for right sided weakness and contracture and the patient noted with contracture Patient is poor historian and with no reported seizure patient had Head CT with no C and noted - History Source History Provided By: Medical Record Limitations to Obtaining History: Clinical Condition - Past Medical History [employer]: Yes: Seizure Pulmonary: Yes: Pneumonia - Alcohol/Substance Use Hx Alcohol Use: No - Smoking History Smoking history: Never smoked Have you smoked in the past 12 months: No - Social History Usual Living Arrangement: With Parent ADL: Family Assistance Home Medications - Allergies Allergies/Adverse Reactions: Allergies Allergy/AdvReac Type Severity Reaction Status Date / Time No Known Allergies Allergy Verified 06/22/19 12:24 - Home Medications Home Medications: Ambulatory Orders Topiramate [Topamax -] 200 mg PO TID #90 tablet 06/10/18 Lacosamide [Vimpat] 200 mg PO BID #60 tablet MDD 2 06/11/18 Phenobarbital - 60 mg PO BID #120 tablet MDD 4 06/11/18 levETIRAcetam [Keppra -] 1,000 mg PO BID 06/22/19 Family Medical History Family History: Unable to Obtain, Unremarkable Review of Systems Unable to obtain ROS, reason: ? Physical Exam-Neuro Vital Signs: Vital Signs Temperature 97.7 F 08/21/19 14:00 Pulse Rate 98 H 08/21/19 15:00 Respiratory Rate 26 H 08/21/19 16:05 Blood Pressure 131/85 08/21/19 15:00 O2 Sat by Pulse Oximetry (%) 99 08/21/19 16:05 Constitutional: Yes: Well Nourished Neck: Yes: WNL Cardiovascular: Yes: WNL Labs: CBC, BMP 08/20/19 07:09 08/21/19 07:20 INR, PTT INR 1.20 (0.83-1.09) H 08/21/19 11:30 - Neuro Exam Level Of Consciousness: Yes: Alert Eyes: Yes: PERRLA Speech: Other Dominant Hand: Right Cranial Nerves II-XII Intact: No Gag: Present DTR's: 1+ Left Bicep, 1+ Right Bicep, 1+ Left Tricep, 1+ Right Tricep Babinski: Present Response to light touch: Abnormal Response to pain prick: Abnormal Motor Strength: 1/5: Right Arm, 2/5: Right Leg, 3/5: Left Arm, Left Leg Gait: Deferred Imaging - Results Cat Scan: Image Reviewed Problem List - Problems (1) Seizure disorder Code(s): G40.909 - EPILEPSY, UNSP, NOT INTRACTABLE, WITHOUT STATUS EPILEPTICUS (2) Suspected COVID-19 virus infection Code(s): R68.89 - OTHER GENERAL SYMPTOMS AND SIGNS Assessment/Plan 1. Seizure precautions 2. EEG 3. Blood level Phenobarb, keppra and Topamax 4. Seziure precautions 5. PT 6. Asprin 81 daily JAVON BURR MD NEUROLOGY
[2019-08-22 04:33] LABS: BASO % 0.7 % (0-2.0); EOS % 3.2 % (0-4.5); HEMATOCRIT 32.7 % (35.4-49); HEMOGLOBIN 10.3 GM/dL (11.7-16.9); LYMPH % 17.5 % (8-40); MCH 27.8 pg (25.7-33.7); MCHC 31.4 g/dl (32.0-35.9); MEAN CELL VOLUME 88.5 fl (80-96); MEAN PLT VOLUME 10.5 fl (7.5-11.1); MONO % 7.1 % (3.8-10.2); NEUT % 71.5 % (42.8-82.8); PLATELET COUNT 490 K/MM3 (134-434); RDW 17.5 % (11.9-15.9); WHITE BLOOD COUNT 16.1 K/mm3 (4.0-10.0)
[2019-08-22] MEDS: TOPIRAMATE 200 MG TABLET GT SCH ×3 (05:41→22:55)
[2019-08-22 08:57] LABS: BASO % 0.8 % (0-2.0); EOS % 3.5 % (0-4.5); HEMATOCRIT 34.1 % (35.4-49); HEMOGLOBIN 10.6 GM/dL (11.7-16.9); LYMPH % 16.8 % (8-40); MCH 27.8 pg (25.7-33.7); MCHC 31.1 g/dl (32.0-35.9); MEAN CELL VOLUME 89.5 fl (80-96); MEAN PLT VOLUME 11.1 fl (7.5-11.1); MONO % 6.6 % (3.8-10.2); NEUT % 72.3 % (42.8-82.8); PLATELET COUNT 477 K/MM3 (134-434); RDW 17.3 % (11.9-15.9); WHITE BLOOD COUNT 16.3 K/mm3 (4.0-10.0)
[2019-08-22 09:14] LABS: ALBUMIN 3.1 g/dl (3.4-5.0); BILIRUBIN,TOTAL 0.4 mg/dL (0.2-1); BLOOD UREA NITROGEN 21.5 mg/dL (7-18); CALCIUM 10.2 mg/dL (8.5-10.1); CREATININE 0.6 mg/dL (0.55-1.3); POTASSIUM 3.9 mmol/L (3.5-5.1); TOT PROT 7.2 g/dl (6.4-8.2)
[2019-08-22] MEDS: CHOLECALCIFEROL (VIT D3) 400 UNIT (10 MCG) TABLET NR SCH (10:10)
[2019-08-22] MEDS: CARVEDILOL 6.25 MG TABLET (FP) PO SCH ×2 (10:10→22:55)
[2019-08-22] MEDS: SPIRONOLACTONE 25 MG TABLET GT SCH (10:10)
[2019-08-22] MEDS: ASCORBIC ACID 500 MG/5 ML UNIT DOSE CUP GT SCH (10:11)
[2019-08-22] MEDS: FUROSEMIDE 40 MG/5 ML UNIT-DOSE CUP PO SCH (10:11)
[2019-08-22] MEDS: AMINO ACIDS/PROTEIN HYDROLYS 30 ML LIQUID.PKT GT SCH ×2 (10:11→16:58)
[2019-08-22] MEDS: levETIRAcetam 500 MG/5 ML ORAL SOLUTION (UNIT-DOSE CUPS) NGT SCH ×2 (10:12→22:54)
[2019-08-22] MEDS: ZINC SULFATE 220 MG CAPSULE (FP) GT SCH ×2 (10:12→22:55)
[2019-08-22] MEDS: Lacosamide 50 MG/5 ML ORAL SOLUTION UNIT CUPS PO SCH ×2 (10:12→22:54)
[2019-08-22] MEDS: POTASSIUM CHLORIDE ORAL LIQUID 20 MEQ/15 ML GT SCH ×2 (10:12→22:55)
[2019-08-22] MEDS: PHENobarbital 20 MG/5 ML UNIT-DOSE CUP NGT SCH ×2 (10:12→22:54)
[2019-08-22] MEDS: ENOXAPARIN NA (PORCINE) 40 MG/0.4 ML DISP.SYRIN SQ SCH (10:13)
[2019-08-22] MEDS: NYSTATIN POWDER 100,000 UNITS/GM - 15 GM TOPICAL POWDER TP SCH ×2 (10:13→22:56)
[2019-08-22] MEDS: QUEtiapine FUMARATE 25 MG TABLET PO SCH (10:14)
[2019-08-22] MEDS: PANTOPRAZOLE SODIUM 40 MG VIAL IVPUSH SCH (10:14)
[2019-08-22] MEDS: ACETAMINOPHEN 325 MG TABLET (FP) PO PRN (10:18)
--- NOTE | 2019-08-22 14:19 | PN ---
Progress Note (short form) - Note Progress Note: Lethargic but in NAD on AC Mode of vent. PPLat: 23 No acute events overnight. OBJECTIVE: Intake & Output 08/19/19 08/20/19 08/21/19 08/22/19 23:59 23:59 23:59 23:59 Intake Total 1895 590 0 Output Total 2600 2200 1720 600 Balance -705 -1610 -1720 -600 Weight 211 lb 3.2 oz 211 lb 211 lb 1 oz Last Vital Signs Temp Pulse Resp BP Pulse Ox 100.4 F H 109 H 24 H 144/98 100 08/22/19 10:05 08/22/19 10:05 08/22/19 10:05 08/22/19 10:05 08/22/19 10:20 Active Medications Acetaminophen (Tylenol -) 650 mg PO Q6H PRN PRN Reason: Fever Or Pain Last Admin: 08/22/19 10:18 Dose: 650 mg Documented by: Albuterol/Ipratropium (Duoneb -) 1 amp NEB Q6H PRN PRN Reason: SHORTNESS OF BREATH Amino Acids (Prosource No Carb Liquid Pkt) 30 ml GT BID@0800,1730 [facility] Last Admin: 08/22/19 10:11 Dose: 30 ml Documented by: Artificial Tears (Artificial Tears) 1 drop OU Q12H PRN PRN Reason: DRY EYES Last Admin: 08/10/19 10:43 Dose: 1 drop Documented by: Ascorbic Acid (Vitamin C Oral Solution -) 500 mg GT DAILY [facility] Last Admin: 08/22/19 10:11 Dose: 500 mg Documented by: Carvedilol (Coreg -) 6.25 mg PO BID [facility] Last Admin: 08/22/19 10:10 Dose: 6.25 mg Documented by: Cholecalciferol (Vitamin D3 -) 800 unit NR DAILY [facility] Last Admin: 08/22/19 10:10 Dose: 800 unit Documented by: Docusate Sodium (Colace Liquid -) 100 mg PO DAILY PRN PRN Reason: CONSTIPATION Enoxaparin Sodium (Lovenox -) 40 mg SQ DAILY [facility] Last Admin: 08/22/19 10:13 Dose: 40 mg Documented by: Furosemide (Lasix Oral Solution -) 20 mg PO DAILY [facility] Last Admin: 08/22/19 10:11 Dose: 20 mg Documented by: Lacosamide (Vimpat Liquid -) 200 mg PO BID [facility] Last Admin: 08/22/19 10:12 Dose: 200 mg Documented by: Levetiracetam (Keppra Oral Solution -) 1,000 mg NGT BID [facility] Last Admin: 08/22/19 10:12 Dose: 1,000 mg Documented by: Lorazepam (Ativan Injection -) 1 mg IVPUSH Q6H PRN PRN Reason: AGITATION Last Admin: 08/19/19 14:50 Dose: 1 mg Documented by: Nystatin (Nystatin Oral Suspension -) 500,000 units PO Q6HPO PRN PRN Reason: ORAL PAIN/MOUTH SORES Nystatin (Nystop Powder -) 1 applic TP BID [facility] Last Admin: 08/22/19 10:13 Dose: 1 applic Documented by: Pantoprazole Sodium (Protonix Iv) 40 mg IVPUSH DAILY [facility] Last Admin: 08/22/19 10:14 Dose: 40 mg Documented by: Phenobarbital (Phenobarbital Liquid -) 60 mg NGT BID [facility] Last Admin: 08/22/19 10:12 Dose: 60 mg Documented by: Potassium Chloride (Potassium Chloride Oral Liquid) 40 meq GT BID [facility] Last Admin: 08/22/19 10:12 Dose: 40 meq Documented by: Quetiapine Fumarate (Seroquel -) 25 mg PO DAILY [facility] Last Admin: 08/22/19 10:14 Dose: 25 mg Documented by: Spironolactone (Aldactone -) 50 mg GT DAILY [facility] Last Admin: 08/22/19 10:10 Dose: 50 mg Documented by: Topiramate (Topamax -) 200 mg GT TID [facility] Last Admin: 08/22/19 05:41 Dose: 200 mg Documented by: Zinc Sulfate (Orazinc -) 220 mg GT BID [facility] Last Admin: 08/22/19 10:12 Dose: 220 mg Documented by: Gen: trached, awake Heart: RRR Lung: decreased breath sounds at the bases Abd: soft, nontender Ext: + edema Laboratory Results - last 24 hr 08/19/19 08/22/19 08/22/19 22:00 04:12 07:51 WBC 16.1 H RBC 3.70 L Hgb 10.3 L Hct 32.7 L MCV 88.5 MCH 27.8 MCHC 31.4 L RDW 17.5 H Plt Count 490 H MPV 10.5 Absolute Neuts (auto) 11.5 H Neutrophils % 71.5 Lymphocytes % 17.5 Monocytes % 7.1 Eosinophils % 3.2 Basophils % 0.7 Nucleated RBC % 0 Sodium 147 H Potassium 3.9 Chloride 114 H Carbon Dioxide 22 Anion Gap 10 BUN 21.5 H Creatinine 0.6 Est GFR (CKD-EPI)AfAm 147.82 Est GFR (CKD-EPI)NonAf 127.55 Random Glucose 102 Calcium 10.2 H Total Bilirubin 0.4 AST 43 H ALT 92 H Alkaline Phosphatase 158 H C-Reactive Protein 10.7 H Total Protein 7.2 Albumin 3.1 L COVID-19 ([facility]) H 08/22/19 07:51 WBC 16.3 H RBC 3.80 L Hgb 10.6 L Hct 34.1 L MCV 89.5 MCH 27.8 MCHC 31.1 L RDW 17.3 H Plt Count 477 H MPV 11.1 Absolute Neuts (auto) 11.8 H Neutrophils % 72.3 Lymphocytes % 16.8 Monocytes % 6.6 Eosinophils % 3.5 Basophils % 0.8 Nucleated RBC % 0 Sodium Potassium Chloride Carbon Dioxide Anion Gap BUN Creatinine Est GFR (CKD-EPI)AfAm Est GFR (CKD-EPI)NonAf Random Glucose Calcium Total Bilirubin AST ALT Alkaline Phosphatase C-Reactive Protein Total Protein Albumin COVID-19 ([facility]) ASSESSMENT AND PLAN: Acute Hypoxic and Hypercapneic Respiratory Failure COVID19 Pneumonia E Coli Pneumonia Fungenmia Bacteremia Septic Shock Seizure Disorder Mental Retardation - AC MOde of vent - Off ABX per ID - continue antiepileptics - monitor urine output, creatinine - low tidal volume ventilation - titrate FiO2, PEEP to keep SpO2 >90% - spontaeneous breathing trials as tolerated - enteral feeds: Should have PEG insertion - DVT/GI prophylaxis Dr Callaway
[2019-08-22] MEDS ORDERED: PT OWN MED DRAWER 7, Y5N ONE ×2 (16:57→22:48)
--- NOTE | 2019-08-22 17:31 | PN ---
Progress Note (short form) - Note Progress Note: Problems 1. hypokalemia 2. hypernatremia 3. resp failure 4. fungemia 5. covid 19 infection 6. ards 7. developemental delay 8. epilepsy 9. bactermia 10. resp acidosis with compensatory met alk Active Medications Acetaminophen (Tylenol -) 650 mg PO Q6H PRN PRN Reason: Fever Or Pain Last Admin: 08/22/19 10:18 Dose: 650 mg Documented by: Albuterol/Ipratropium (Duoneb -) 1 amp NEB Q6H PRN PRN Reason: SHORTNESS OF BREATH Amino Acids (Prosource No Carb Liquid Pkt) 30 ml GT BID@0800,1730 [facility] Last Admin: 08/22/19 16:58 Dose: 30 ml Documented by: Artificial Tears (Artificial Tears) 1 drop OU Q12H PRN PRN Reason: DRY EYES Last Admin: 08/10/19 10:43 Dose: 1 drop Documented by: Ascorbic Acid (Vitamin C Oral Solution -) 500 mg GT DAILY [facility] Last Admin: 08/22/19 10:11 Dose: 500 mg Documented by: Carvedilol (Coreg -) 6.25 mg PO BID [facility] Last Admin: 08/22/19 10:10 Dose: 6.25 mg Documented by: Cholecalciferol (Vitamin D3 -) 800 unit NR DAILY [facility] Last Admin: 08/22/19 10:10 Dose: 800 unit Documented by: Docusate Sodium (Colace Liquid -) 100 mg PO DAILY PRN PRN Reason: CONSTIPATION Enoxaparin Sodium (Lovenox -) 40 mg SQ DAILY [facility] Last Admin: 08/22/19 10:13 Dose: 40 mg Documented by: Furosemide (Lasix Oral Solution -) 20 mg PO DAILY [facility] Last Admin: 08/22/19 10:11 Dose: 20 mg Documented by: Lacosamide (Vimpat Liquid -) 200 mg PO BID [facility] Last Admin: 08/22/19 10:12 Dose: 200 mg Documented by: Levetiracetam (Keppra Oral Solution -) 1,000 mg NGT BID [facility] Last Admin: 08/22/19 10:12 Dose: 1,000 mg Documented by: Nystatin (Nystatin Oral Suspension -) 500,000 units PO Q6HPO PRN PRN Reason: ORAL PAIN/MOUTH SORES Nystatin (Nystop Powder -) 1 applic TP BID [facility] Last Admin: 08/22/19 10:13 Dose: 1 applic Documented by: Pantoprazole Sodium (Protonix Iv) 40 mg IVPUSH DAILY [facility] Last Admin: 08/22/19 10:14 Dose: 40 mg Documented by: Phenobarbital (Phenobarbital Liquid -) 60 mg NGT BID [facility] Last Admin: 08/22/19 10:12 Dose: 60 mg Documented by: Potassium Chloride (Potassium Chloride Oral Liquid) 40 meq GT BID [facility] Last Admin: 08/22/19 10:12 Dose: 40 meq Documented by: Quetiapine Fumarate (Seroquel -) 25 mg PO DAILY [facility] Last Admin: 08/22/19 10:14 Dose: 25 mg Documented by: Spironolactone (Aldactone -) 50 mg GT DAILY [facility] Last Admin: 08/22/19 10:10 Dose: 50 mg Documented by: Topiramate (Topamax -) 200 mg GT TID [facility] Last Admin: 08/22/19 14:37 Dose: 200 mg Documented by: Zinc Sulfate (Orazinc -) 220 mg GT BID [facility] Last Admin: 08/22/19 10:12 Dose: 220 mg Documented by: Last Vital Signs Temp Pulse Resp BP Pulse Ox 99.8 F H 104 H 20 125/92 100 08/22/19 14:00 08/22/19 14:00 08/22/19 14:00 08/22/19 14:00 08/22/19 13:00 CBC, BMP 08/22/19 07:51 08/22/19 07:51
--- NOTE | 2019-08-22 17:35 | PN ---
Physical Exam: SUBJECTIVE: Patient seen and examined bedside, fevers improved, abx held per ID recs. G tube placed awaiting confirmation. VSS. 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 Derm: No decubitus ulcers Vital Signs Period Temp Pulse Resp BP Sys/Ortiz Pulse Ox Last 24 Hr 98.8 F-100.4 F 104-116 20-32 125-158/84-98 97-100 Laboratory Results - last 24 hr 08/19/19 08/22/19 08/22/19 22:00 04:12 07:51 WBC 16.1 H RBC 3.70 L Hgb 10.3 L Hct 32.7 L MCV 88.5 MCH 27.8 MCHC 31.4 L RDW 17.5 H Plt Count 490 H MPV 10.5 Absolute Neuts (auto) 11.5 H Neutrophils % 71.5 Lymphocytes % 17.5 Monocytes % 7.1 Eosinophils % 3.2 Basophils % 0.7 Nucleated RBC % 0 Sodium 147 H Potassium 3.9 Chloride 114 H Carbon Dioxide 22 Anion Gap 10 BUN 21.5 H Creatinine 0.6 Est GFR (CKD-EPI)AfAm 147.82 Est GFR (CKD-EPI)NonAf 127.55 Random Glucose 102 Calcium 10.2 H Total Bilirubin 0.4 AST 43 H ALT 92 H Alkaline Phosphatase 158 H C-Reactive Protein 10.7 H Total Protein 7.2 Albumin 3.1 L COVID-19 ([facility]) H 08/22/19 07:51 WBC 16.3 H RBC 3.80 L Hgb 10.6 L Hct 34.1 L MCV 89.5 MCH 27.8 MCHC 31.1 L RDW 17.3 H Plt Count 477 H MPV 11.1 Absolute Neuts (auto) 11.8 H Neutrophils % 72.3 Lymphocytes % 16.8 Monocytes % 6.6 Eosinophils % 3.5 Basophils % 0.8 Nucleated RBC % 0 Sodium Potassium Chloride Carbon Dioxide Anion Gap BUN Creatinine Est GFR (CKD-EPI)AfAm Est GFR (CKD-EPI)NonAf Random Glucose Calcium Total Bilirubin AST ALT Alkaline Phosphatase C-Reactive Protein Total Protein Albumin COVID-19 ([facility]) Active Medications Generic Name Dose Route Start Last Admin Trade Name Freq PRN Reason Stop Dose Admin Acetaminophen 650 mg 08/21/19 13:08 08/22/19 10:18 Tylenol - PO 650 mg Q6H PRN Administration Fever Or Pain Albuterol/Ipratropium 1 amp 08/16/19 13:19 Duoneb - NEB Q6H PRN SHORTNESS OF BREATH Amino Acids 30 ml 08/09/19 08:00 08/22/19 16:58 Prosource No Carb Liquid Pkt GT 30 ml BID@0800,1730 TIKI Administration Artificial Tears 1 drop 08/08/19 18:05 08/10/19 10:43 Artificial Tears OU 1 drop Q12H PRN Administration DRY EYES Ascorbic Acid 500 mg 08/09/19 10:00 08/22/19 10:11 Vitamin C Oral Solution - GT 500 mg DAILY TIKI Administration Carvedilol 6.25 mg 08/20/19 09:33 08/22/19 10:10 Coreg - PO 6.25 mg BID TIKI Administration Cholecalciferol 800 unit 08/09/19 10:00 08/22/19 10:10 Vitamin D3 - NR 800 unit DAILY TIKI Administration Docusate Sodium 100 mg 08/09/19 09:46 Colace Liquid - PO DAILY PRN CONSTIPATION Enoxaparin Sodium 40 mg 08/15/19 10:00 08/22/19 10:13 Lovenox - SQ 40 mg DAILY TIKI Administration Furosemide 20 mg 08/20/19 13:33 08/22/19 10:11 Lasix Oral Solution - PO 20 mg DAILY TIKI Administration Lacosamide 200 mg 08/10/19 22:00 08/22/19 10:12 Vimpat Liquid - PO 200 mg BID TIKI Administration Levetiracetam 1,000 mg 08/10/19 22:00 08/22/19 10:12 Keppra Oral Solution - NGT 1,000 mg BID TIKI Administration Nystatin 500,000 units 08/08/19 18:05 Nystatin Oral Suspension - PO Q6HPO PRN ORAL PAIN/MOUTH SORES Nystatin 1 applic 08/21/19 11:15 08/22/19 10:13 Nystop Powder - TP 1 applic BID TIKI Administration Pantoprazole Sodium 40 mg 08/14/19 11:45 08/22/19 10:14 Protonix Iv IVPUSH 40 mg DAILY TIKI Administration Phenobarbital 60 mg 08/10/19 22:00 08/22/19 10:12 Phenobarbital Liquid - NGT 60 mg BID TIKI Administration Potassium Chloride 40 meq 08/08/19 22:00 08/22/19 10:12 Potassium Chloride Oral Liquid GT 40 meq BID TIKI Administration Quetiapine Fumarate 25 mg 08/18/19 10:45 08/22/19 10:14 Seroquel - PO 25 mg DAILY TIKI Administration Spironolactone 50 mg 08/21/19 10:00 08/22/19 10:10 Aldactone - GT 50 mg DAILY TIKI Administration Topiramate 200 mg 08/08/19 22:00 08/22/19 14:37 Topamax - GT 200 mg TID TIKI Administration Zinc Sulfate 220 mg 08/08/19 22:00 08/22/19 10:12 Orazinc - GT 220 mg BID TIKI Administration ASSESSMENT/PLAN: 39 M Acute Resp Failure 2/2 COVID-19 s/p trach/plasma/Actemra Sepsis 2/2 polymicrobial infections (fungemia/bacteremia/COVID) Tachycardia Transaminitis Epilepsy Mental retardation Developmental delay Deconditioning Anemia Plan: Cont. Nystatin for fungemia, strongyloides labs pending Follow COVID reswab first swab "H" result ? insufficient specimen Cont. Coreg Follow G tube imaging for confirmation Limit IVF, cont. Lasix , monitor chem Wean vent to minimize FiO2 req. for ~90% sat Cont. psych meds, Ativan PRN for anxiety/tachypnea Aggressive replacements of electrolytes DVT ppx: Lovenox SC (FOBT negative) Visit type - Emergency Visit Emergency Visit: Yes ED Registration Date: 06/22/19 Care time: The patient presented to the Emergency Department on the above date and was hospitalized for further evaluation of their emergent condition. - New Patient This patient is new to me today: No - Critical Care Critical Care patient: No - Discharge Referral Referred to [facility] No
--- NOTE | 2019-08-22 20:21 | PN ---
Progress Note, Physician Chief Complaint: POORLY RESPONSIVE ON TRACH COLLAR EYES OPEN LOW GRADE TEMPS History of Present Illness: INTUBATED TEMPS DOWN AFEBRILE WBC WNL BC SCN X2 - Current Medication List Current Medications: Active Medications Acetaminophen (Tylenol -) 650 mg PO Q6H PRN PRN Reason: Fever Or Pain Last Admin: 08/22/19 10:18 Dose: 650 mg Documented by: Albuterol/Ipratropium (Duoneb -) 1 amp NEB Q6H PRN PRN Reason: SHORTNESS OF BREATH Amino Acids (Prosource No Carb Liquid Pkt) 30 ml GT BID@0800,1730 [facility] Last Admin: 08/22/19 16:58 Dose: 30 ml Documented by: Artificial Tears (Artificial Tears) 1 drop OU Q12H PRN PRN Reason: DRY EYES Last Admin: 08/10/19 10:43 Dose: 1 drop Documented by: Ascorbic Acid (Vitamin C Oral Solution -) 500 mg GT DAILY [facility] Last Admin: 08/22/19 10:11 Dose: 500 mg Documented by: Carvedilol (Coreg -) 6.25 mg PO BID [facility] Last Admin: 08/22/19 10:10 Dose: 6.25 mg Documented by: Cholecalciferol (Vitamin D3 -) 800 unit NR DAILY [facility] Last Admin: 08/22/19 10:10 Dose: 800 unit Documented by: Docusate Sodium (Colace Liquid -) 100 mg PO DAILY PRN PRN Reason: CONSTIPATION Enoxaparin Sodium (Lovenox -) 40 mg SQ DAILY [facility] Last Admin: 08/22/19 10:13 Dose: 40 mg Documented by: Furosemide (Lasix Oral Solution -) 20 mg PO DAILY [facility] Last Admin: 08/22/19 10:11 Dose: 20 mg Documented by: Lacosamide (Vimpat Liquid -) 200 mg PO BID [facility] Last Admin: 08/22/19 10:12 Dose: 200 mg Documented by: Levetiracetam (Keppra Oral Solution -) 1,000 mg NGT BID [facility] Last Admin: 08/22/19 10:12 Dose: 1,000 mg Documented by: Nystatin (Nystatin Oral Suspension -) 500,000 units PO Q6HPO PRN PRN Reason: ORAL PAIN/MOUTH SORES Nystatin (Nystop Powder -) 1 applic TP BID [facility] Last Admin: 08/22/19 10:13 Dose: 1 applic Documented by: Pantoprazole Sodium (Protonix Iv) 40 mg IVPUSH DAILY [facility] Last Admin: 08/22/19 10:14 Dose: 40 mg Documented by: Phenobarbital (Phenobarbital Liquid -) 60 mg NGT BID [facility] Last Admin: 08/22/19 10:12 Dose: 60 mg Documented by: Potassium Chloride (Potassium Chloride Oral Liquid) 40 meq GT BID [facility] Last Admin: 08/22/19 10:12 Dose: 40 meq Documented by: Quetiapine Fumarate (Seroquel -) 25 mg PO DAILY [facility] Last Admin: 08/22/19 10:14 Dose: 25 mg Documented by: Spironolactone (Aldactone -) 50 mg GT DAILY [facility] Last Admin: 08/22/19 10:10 Dose: 50 mg Documented by: Topiramate (Topamax -) 200 mg GT TID [facility] Last Admin: 08/22/19 14:37 Dose: 200 mg Documented by: Zinc Sulfate (Orazinc -) 220 mg GT BID [facility] Last Admin: 08/22/19 10:12 Dose: 220 mg Documented by: - Objective Vital Signs: Vital Signs Temperature 98.8 F 08/22/19 18:00 Pulse Rate 104 H 08/22/19 18:00 Respiratory Rate 20 08/22/19 18:00 Blood Pressure 144/94 08/22/19 18:00 O2 Sat by Pulse Oximetry (%) 100 08/22/19 17:25 Constitutional: Yes: No Distress Eyes: Yes: Conjunctiva Clear Cardiovascular: Yes: Regular Rate and Rhythm, S1, S2 Respiratory: Yes: Rhonchi Gastrointestinal: Yes: Normal Bowel Sounds, Soft Edema: No Labs: CBC, BMP 08/22/19 07:51 08/22/19 07:51 INR, PTT INR 1.20 (0.83-1.09) H 08/21/19 11:30 Assessment/Plan RESP FAILURE BILATERAL PNEUMONIA/ARDS FUO + SPUTUM MRSA/ ECOLI COVID-19+ S/P TOCILIZUMAB, PLASMA +BC SCN, CATARINO CONTINUE VENTILATORY SUPPORT [employer]ORNE PRECAUTIONS OBSERVE OFF ANTIBIOTICS
[2019-08-23] MEDS: TOPIRAMATE 200 MG TABLET GT SCH ×3 (05:28→22:11)
[2019-08-23 08:18] LABS: BASO % 0.5 % (0-2.0); EOS % 4.9 % (0-4.5); HEMATOCRIT 33.8 % (35.4-49); HEMOGLOBIN 10.5 GM/dL (11.7-16.9); LYMPH % 16.6 % (8-40); MCH 27.8 pg (25.7-33.7); MEAN CELL VOLUME 89.7 fl (80-96); MEAN PLT VOLUME 11.2 fl (7.5-11.1); PLATELET COUNT 489 K/MM3 (134-434); RBC 3.77 M/mm3 (4.00-5.60); RDW 17.3 % (11.9-15.9); WHITE BLOOD COUNT 16.5 K/mm3 (4.0-10.0)
[2019-08-23 08:40] LABS: ALBUMIN 3.2 g/dl (3.4-5.0); BILIRUBIN,TOTAL 0.4 mg/dL (0.2-1); BLOOD UREA NITROGEN 20.5 mg/dL (7-18); CREATININE 0.6 mg/dL (0.55-1.3); TOT PROT 7.1 g/dl (6.4-8.2)
[2019-08-23] MEDS ORDERED: PT OWN MED DRAWER 7, Y5N ONE ×2 (09:16→14:50)
[2019-08-23] MEDS: AMINO ACIDS/PROTEIN HYDROLYS 30 ML LIQUID.PKT GT SCH ×2 (09:35→17:20)
[2019-08-23] MEDS: FUROSEMIDE 40 MG/5 ML UNIT-DOSE CUP PO SCH (09:35)
[2019-08-23] MEDS: ASCORBIC ACID 500 MG/5 ML UNIT DOSE CUP GT SCH (09:35)
[2019-08-23] MEDS: SPIRONOLACTONE 25 MG TABLET GT SCH (09:37)
[2019-08-23] MEDS: CARVEDILOL 6.25 MG TABLET (FP) PO SCH ×2 (09:38→22:10)
[2019-08-23] MEDS: CHOLECALCIFEROL (VIT D3) 400 UNIT (10 MCG) TABLET NR SCH (09:38)
[2019-08-23] MEDS: PHENobarbital 20 MG/5 ML UNIT-DOSE CUP NGT SCH ×2 (09:39→22:10)
[2019-08-23] MEDS: Lacosamide 50 MG/5 ML ORAL SOLUTION UNIT CUPS PO SCH ×2 (09:39→22:09)
[2019-08-23] MEDS: ENOXAPARIN NA (PORCINE) 40 MG/0.4 ML DISP.SYRIN SQ SCH (09:40)
[2019-08-23] MEDS: levETIRAcetam 500 MG/5 ML ORAL SOLUTION (UNIT-DOSE CUPS) NGT SCH ×2 (09:40→22:10)
[2019-08-23] MEDS: POTASSIUM CHLORIDE ORAL LIQUID 20 MEQ/15 ML GT SCH ×2 (09:41→22:09)
[2019-08-23] MEDS: QUEtiapine FUMARATE 25 MG TABLET PO SCH (09:41)
[2019-08-23] MEDS: ZINC SULFATE 220 MG CAPSULE (FP) GT SCH ×2 (09:41→22:10)
[2019-08-23] MEDS: PANTOPRAZOLE SODIUM 40 MG VIAL IVPUSH SCH (10:00)
[2019-08-23] MEDS: NYSTATIN POWDER 100,000 UNITS/GM - 15 GM TOPICAL POWDER TP SCH ×2 (10:20→22:10)
--- NOTE | 2019-08-23 13:09 | PN ---
Progress Note (short form) - Note Progress Note: Lethargic but in NAD on AC Mode of vent. PPLat: 23 No acute events overnight. OBJECTIVE: Intake & Output 08/20/19 08/21/19 08/22/19 08/23/19 23:59 23:59 23:59 23:59 Intake Total 590 0 200 Output Total 2200 1720 1850 400 Balance -1610 -1720 -1650 -400 Weight 211 lb 211 lb 1 oz 200 lb Last Vital Signs Temp Pulse Resp BP Pulse Ox 98.8 F 118 H 24 H 139/97 100 08/23/19 08:50 08/23/19 08:50 08/23/19 11:48 08/23/19 08:50 08/23/19 11:48 Active Medications Acetaminophen (Tylenol -) 650 mg PO Q6H PRN PRN Reason: Fever Or Pain Last Admin: 08/22/19 10:18 Dose: 650 mg Documented by: Albuterol/Ipratropium (Duoneb -) 1 amp NEB Q6H PRN PRN Reason: SHORTNESS OF BREATH Amino Acids (Prosource No Carb Liquid Pkt) 30 ml GT BID@0800,1730 [facility] Last Admin: 08/23/19 09:35 Dose: 30 ml Documented by: Artificial Tears (Artificial Tears) 1 drop OU Q12H PRN PRN Reason: DRY EYES Last Admin: 08/10/19 10:43 Dose: 1 drop Documented by: Ascorbic Acid (Vitamin C Oral Solution -) 500 mg GT DAILY [facility] Last Admin: 08/23/19 09:35 Dose: 500 mg Documented by: Carvedilol (Coreg -) 6.25 mg PO BID [facility] Last Admin: 08/23/19 09:38 Dose: 6.25 mg Documented by: Cholecalciferol (Vitamin D3 -) 800 unit NR DAILY [facility] Last Admin: 08/23/19 09:38 Dose: 800 unit Documented by: Docusate Sodium (Colace Liquid -) 100 mg PO DAILY PRN PRN Reason: CONSTIPATION Enoxaparin Sodium (Lovenox -) 40 mg SQ DAILY [facility] Last Admin: 08/23/19 09:40 Dose: 40 mg Documented by: Furosemide (Lasix Oral Solution -) 20 mg PO DAILY [facility] Last Admin: 08/23/19 09:35 Dose: 20 mg Documented by: Lacosamide (Vimpat Liquid -) 200 mg PO BID [facility] Last Admin: 08/23/19 09:39 Dose: 200 mg Documented by: Levetiracetam (Keppra Oral Solution -) 1,000 mg NGT BID [facility] Last Admin: 08/23/19 09:40 Dose: 1,000 mg Documented by: Nystatin (Nystatin Oral Suspension -) 500,000 units PO Q6HPO PRN PRN Reason: ORAL PAIN/MOUTH SORES Nystatin (Nystop Powder -) 1 applic TP BID [facility] Last Admin: 08/23/19 10:20 Dose: 1 applic Documented by: Pantoprazole Sodium (Protonix Iv) 40 mg IVPUSH DAILY [facility] Last Admin: 08/23/19 10:00 Dose: 40 mg Documented by: Phenobarbital (Phenobarbital Liquid -) 60 mg NGT BID [facility] Last Admin: 08/23/19 09:39 Dose: 60 mg Documented by: Potassium Chloride (Potassium Chloride Oral Liquid) 40 meq GT BID [facility] Last Admin: 08/23/19 09:41 Dose: 40 meq Documented by: Quetiapine Fumarate (Seroquel -) 25 mg PO DAILY [facility] Last Admin: 08/23/19 09:41 Dose: 25 mg Documented by: Spironolactone (Aldactone -) 50 mg GT DAILY [facility] Last Admin: 08/23/19 09:37 Dose: 50 mg Documented by: Topiramate (Topamax -) 200 mg GT TID [facility] Last Admin: 08/23/19 05:28 Dose: 200 mg Documented by: Zinc Sulfate (Orazinc -) 220 mg GT BID [facility] Last Admin: 08/23/19 09:41 Dose: 220 mg Documented by: Gen: trached, awake Heart: RRR Lung: decreased breath sounds at the bases Abd: soft, nontender Ext: + edema Laboratory Results - last 24 hr 08/23/19 08/23/19 07:31 07:31 WBC 16.5 H RBC 3.77 L Hgb 10.5 L Hct 33.8 L MCV 89.7 MCH 27.8 MCHC 31.0 L RDW 17.3 H Plt Count 489 H MPV 11.2 H Absolute Neuts (auto) 11.9 H Neutrophils % 72.0 Lymphocytes % 16.6 Monocytes % 6.0 Eosinophils % 4.9 H Basophils % 0.5 Nucleated RBC % 0 Sodium 152 H Potassium 4.0 Chloride 121 H Carbon Dioxide 24 Anion Gap 8 BUN 20.5 H Creatinine 0.6 Est GFR (CKD-EPI)AfAm 147.82 Est GFR (CKD-EPI)NonAf 127.55 Random Glucose 101 Calcium 10.0 Total Bilirubin 0.4 AST 48 H ALT 103 H Alkaline Phosphatase 153 H Creatine Kinase 16 L Total Protein 7.1 Albumin 3.2 L ASSESSMENT AND PLAN: Acute Hypoxic and Hypercapneic Respiratory Failure COVID19 Pneumonia E Coli Pneumonia Fungenmia Bacteremia Septic Shock Seizure Disorder Mental Retardation - AC Mode of vent - Off ABX per ID - continue antiepileptics - monitor urine output, creatinine - low tidal volume ventilation - titrate FiO2, PEEP to keep SpO2 >90% - spontaeneous breathing trials as tolerated - enteral feeds: Should have PEG insertion - DVT/GI prophylaxis Dr Callaway
[2019-08-23] MEDS ORDERED: DEXTROSE 5%-0.45% SALINE 1,000 ML IV SCH ×2 (15:15)
--- NOTE | 2019-08-23 15:19 | PN ---
Progress Note (short form) - Note Progress Note: Problems 1. hypokalemia 2. hypernatremia 3. resp failure 4. fungemia 5. covid 19 infection 6. ards 7. developemental delay 8. epilepsy 9. bactermia 10. resp acidosis with compensatory met alk Active Medications Acetaminophen (Tylenol -) 650 mg PO Q6H PRN PRN Reason: Fever Or Pain Last Admin: 08/22/19 10:18 Dose: 650 mg Documented by: Albuterol/Ipratropium (Duoneb -) 1 amp NEB Q6H PRN PRN Reason: SHORTNESS OF BREATH Amino Acids (Prosource No Carb Liquid Pkt) 30 ml GT BID@0800,1730 [facility] Last Admin: 08/23/19 09:35 Dose: 30 ml Documented by: Artificial Tears (Artificial Tears) 1 drop OU Q12H PRN PRN Reason: DRY EYES Last Admin: 08/10/19 10:43 Dose: 1 drop Documented by: Ascorbic Acid (Vitamin C Oral Solution -) 500 mg GT DAILY [facility] Last Admin: 08/23/19 09:35 Dose: 500 mg Documented by: Carvedilol (Coreg -) 6.25 mg PO BID [facility] Last Admin: 08/23/19 09:38 Dose: 6.25 mg Documented by: Cholecalciferol (Vitamin D3 -) 800 unit NR DAILY [facility] Last Admin: 08/23/19 09:38 Dose: 800 unit Documented by: Enoxaparin Sodium (Lovenox -) 40 mg SQ DAILY [facility] Last Admin: 08/23/19 09:40 Dose: 40 mg Documented by: Dextrose/Sodium Chloride (D5-1/2ns -) 1,000 mls @ 50 mls/hr IV ASDIR [facility] Lacosamide (Vimpat Liquid -) 200 mg PO BID [facility] Last Admin: 08/23/19 09:39 Dose: 200 mg Documented by: Levetiracetam (Keppra Oral Solution -) 1,000 mg NGT BID [facility] Last Admin: 08/23/19 09:40 Dose: 1,000 mg Documented by: Nystatin (Nystatin Oral Suspension -) 500,000 units PO Q6HPO PRN PRN Reason: ORAL PAIN/MOUTH SORES Nystatin (Nystop Powder -) 1 applic TP BID [facility] Last Admin: 08/23/19 10:20 Dose: 1 applic Documented by: Pantoprazole Sodium (Protonix Iv) 40 mg IVPUSH DAILY [facility] Last Admin: 08/23/19 10:00 Dose: 40 mg Documented by: Phenobarbital (Phenobarbital Liquid -) 60 mg NGT BID [facility] Last Admin: 08/23/19 09:39 Dose: 60 mg Documented by: Potassium Chloride (Potassium Chloride Oral Liquid) 40 meq GT BID [facility] Last Admin: 08/23/19 09:41 Dose: 40 meq Documented by: Quetiapine Fumarate (Seroquel -) 25 mg PO DAILY [facility] Last Admin: 08/23/19 09:41 Dose: 25 mg Documented by: Spironolactone (Aldactone -) 50 mg GT DAILY [facility] Last Admin: 08/23/19 09:37 Dose: 50 mg Documented by: Topiramate (Topamax -) 200 mg GT TID [facility] Last Admin: 08/23/19 14:53 Dose: 200 mg Documented by: Zinc Sulfate (Orazinc -) 220 mg GT BID [facility] Last Admin: 08/23/19 09:41 Dose: 220 mg Documented by: Last Vital Signs Temp Pulse Resp BP Pulse Ox 98.8 F 118 H 24 H 139/97 100 08/23/19 08:50 08/23/19 08:50 08/23/19 11:48 08/23/19 08:50 08/23/19 11:48 in nad Lungs clear Heart reg Ab soft nontender Ext no edema CBC, BMP 08/23/19 07:31 08/23/19 07:31 CBC, BMP 08/22/19 07:51 08/22/19 07:51 IMP- Hypernatremia water deficit PLan-replace free water agree with IFV ordered
[2019-08-23] MEDS: ALBUTEROL SO4 2.5/IPRATROPIUM 0.5 INH SOL 3 ML VIAL.NEB. NEB PRN (15:20)
[2019-08-23] MEDS: ACETAMINOPHEN 325 MG TABLET (FP) PO PRN (22:21)
[2019-08-24] MEDS: TOPIRAMATE 200 MG TABLET GT SCH ×3 (05:03→21:16)
[2019-08-24 07:49] LABS: BASO % 0.7 % (0-2.0); EOS % 2.9 % (0-4.5); HEMOGLOBIN 10.3 GM/dL (11.7-16.9); LYMPH % 23.2 % (8-40); MCH 27.8 pg (25.7-33.7); MCHC 31.3 g/dl (32.0-35.9); MEAN CELL VOLUME 88.9 fl (80-96); MONO % 7.7 % (3.8-10.2); NEUT % 65.5 % (42.8-82.8); PLATELET COUNT 442 K/MM3 (134-434); RBC 3.72 M/mm3 (4.00-5.60); RDW 17.2 % (11.9-15.9); WHITE BLOOD COUNT 14.5 K/mm3 (4.0-10.0)
[2019-08-24 08:18] LABS: POTASSIUM 3.8 mmol/L (3.5-5.1)
[2019-08-24] MEDS ORDERED: PT OWN MED DRAWER 7, Y5N ONE ×3 (08:41→12:52)
[2019-08-24 08:43] LABS: ALBUMIN 3.1 g/dl (3.4-5.0); BILIRUBIN,TOTAL 0.7 mg/dL (0.2-1); BLOOD UREA NITROGEN 21.3 mg/dL (7-18); CALCIUM 9.6 mg/dL (8.5-10.1); CREATININE 0.7 mg/dL (0.55-1.3); TOT PROT 7.1 g/dl (6.4-8.2)
[2019-08-24] MEDS: AMINO ACIDS/PROTEIN HYDROLYS 30 ML LIQUID.PKT GT SCH ×2 (08:57→16:38)
[2019-08-24] MEDS: PANTOPRAZOLE SODIUM 40 MG VIAL IVPUSH SCH (09:02)
[2019-08-24] MEDS: POTASSIUM CHLORIDE ORAL LIQUID 20 MEQ/15 ML GT SCH ×2 (09:02→21:15)
[2019-08-24] MEDS: Lacosamide 50 MG/5 ML ORAL SOLUTION UNIT CUPS PO SCH ×2 (09:02→21:16)
[2019-08-24] MEDS: PHENobarbital 20 MG/5 ML UNIT-DOSE CUP NGT SCH ×2 (09:03→21:15)
[2019-08-24] MEDS: levETIRAcetam 500 MG/5 ML ORAL SOLUTION (UNIT-DOSE CUPS) NGT SCH ×2 (09:03→21:14)
[2019-08-24] MEDS: SPIRONOLACTONE 25 MG TABLET GT SCH (09:04)
[2019-08-24] MEDS: ENOXAPARIN NA (PORCINE) 40 MG/0.4 ML DISP.SYRIN SQ SCH (09:04)
[2019-08-24] MEDS: CARVEDILOL 6.25 MG TABLET (FP) PO SCH ×2 (09:04→21:13)
[2019-08-24] MEDS: ZINC SULFATE 220 MG CAPSULE (FP) GT SCH ×2 (09:05→21:15)
[2019-08-24] MEDS: NYSTATIN POWDER 100,000 UNITS/GM - 15 GM TOPICAL POWDER TP SCH ×2 (09:05→21:14)
[2019-08-24] MEDS: QUEtiapine FUMARATE 25 MG TABLET PO SCH (09:06)
[2019-08-24] MEDS: CHOLECALCIFEROL (VIT D3) 400 UNIT (10 MCG) TABLET NR SCH (09:10)
[2019-08-24] MEDS: ASCORBIC ACID 500 MG/5 ML UNIT DOSE CUP GT SCH (09:10)
[2019-08-24] MEDS ORDERED: DEXTROSE 5%-0.45% SALINE 1,000 ML IV SCH (09:56)
--- NOTE | 2019-08-24 12:44 | PN ---
Progress Note (short form) - Note Progress Note: febrile to 102.5 overnight gt placed on Saturday- not being used yet still with NGT Vital Signs Period Temp Pulse Resp BP Sys/Ortiz Pulse Ox Last 24 Hr 97.8 F-102.6 F 114-140 24-30 128-158/88-108 100-100 cor-rrr lungs decreased bs at bases abd soft,nt ext no edema CBC, BMP 08/24/19 07:20 08/24/19 07:20 Microbiology 08/21/19 03:17 AFB Smear Concentration - Final Sputum - Endotrachea Suction/Ventilator Mycobacterial Culture - Preliminary 08/20/19 05:00 AFB Smear Concentration - Final Sputum - Endotrachea Suction/Ventilator Mycobacterial Culture - Preliminary 08/20/19 20:20 Blood Culture - Preliminary Blood - Peripheral Venous NO GROWTH OBTAINED AFTER 72 HOURS, INCUBATION TO CONTINUE FOR 2 DAYS. 08/20/19 20:20 Blood Culture - Preliminary Blood - Peripheral Venous NO GROWTH OBTAINED AFTER 72 HOURS, INCUBATION TO CONTINUE FOR 2 DAYS. 08/21/19 03:17 Gram Stain - Final Sputum - Endotrachea Suction/Ventilator Sputum Culture - Final S Aureus covid pcr negative (repeat) quantiferon negative strongyloides ab negative imp/reccd chronic resp failure recurrent fevers-reculture if fevers persist- observe off antibiotics recent ct scans not helpful consider INDIUM SCAN doubt varnisher infection given improving mental status sputum for afb given persistent upper lobe infiltrates and fever s/p tocilizumab-pending repeat cultures if fever recurs ARDS/pneumonia- sputum MRSA Problem List - Problems (1) Suspected COVID-19 virus infection Code(s): R68.89 - OTHER GENERAL SYMPTOMS AND SIGNS (2) Acute respiratory failure with hypoxia Code(s): J96.01 - ACUTE RESPIRATORY FAILURE WITH HYPOXIA (3) Bacteremia Code(s): R78.81 - BACTEREMIA
--- NOTE | 2019-08-24 13:12 | PN ---
Physical Exam: SUBJECTIVE: Patient seen and examined at bedside. Now with PEG in place. There was an issue confirming placement of the PEG previously. IR aware and will assess. Continues to spike fevers. OBJECTIVE: Vital Signs Period Temp Pulse Resp BP Sys/Ortiz Pulse Ox Last 24 Hr 97.8 F-102.6 F 114-140 24-30 128-158/88-108 100-100 Gen: trach tube in place, tachypnic, nonverbal, but follows commands HEENT: NCAT, moist membranes Neck: trach tube in place Cardio: tachycardic, regular, no mrg noted Pulm: cta b/l Abd: Soft, nondistended. Percutaneous G tube in place. CDI Ext: no edema Laboratory Results - last 24 hr 08/23/19 08/24/19 08/24/19 12:10 07:20 07:20 WBC 14.5 H RBC 3.72 L Hgb 10.3 L Hct 33.0 L MCV 88.9 MCH 27.8 MCHC 31.3 L RDW 17.2 H Plt Count 442 H MPV 11.0 Absolute Neuts (auto) 9.5 H Neutrophils % 65.5 Lymphocytes % 23.2 D Monocytes % 7.7 Eosinophils % 2.9 Basophils % 0.7 Nucleated RBC % 0 Sodium 153 H Potassium 3.8 Chloride 121 H Carbon Dioxide 19 L Anion Gap 12 BUN 21.3 H Creatinine 0.7 Est GFR (CKD-EPI)AfAm 138.75 Est GFR (CKD-EPI)NonAf 119.71 Random Glucose 115 H Lactic Acid 1.1 Calcium 9.6 Total Bilirubin 0.7 AST 85 H ALT 143 H Alkaline Phosphatase 163 H Total Protein 7.1 Albumin 3.1 L Active Medications Generic Name Dose Route Start Last Admin Trade Name Freq PRN Reason Stop Dose Admin Acetaminophen 650 mg 08/21/19 13:08 08/23/19 22:21 Tylenol - PO 650 mg Q6H PRN Administration Fever Or Pain Albuterol/Ipratropium 1 amp 08/16/19 13:19 08/23/19 15:20 Duoneb - NEB 1 amp Q6H PRN Administration SHORTNESS OF BREATH Amino Acids 30 ml 08/09/19 08:00 08/24/19 08:57 Prosource No Carb Liquid Pkt GT 30 ml BID@0800,1730 TIKI Administration Artificial Tears 1 drop 08/08/19 18:05 08/10/19 10:43 Artificial Tears OU 1 drop Q12H PRN Administration DRY EYES Ascorbic Acid 500 mg 08/09/19 10:00 08/24/19 09:10 Vitamin C Oral Solution - GT 500 mg DAILY TIKI Administration Carvedilol 6.25 mg 08/20/19 09:33 08/24/19 09:04 Coreg - PO 6.25 mg BID TIKI Administration Cholecalciferol 800 unit 08/09/19 10:00 08/24/19 09:10 Vitamin D3 - NR 800 unit DAILY TIKI Administration Enoxaparin Sodium 40 mg 08/15/19 10:00 08/24/19 09:04 Lovenox - SQ 40 mg DAILY TIKI Administration Dextrose/Sodium Chloride 1,000 mls @ 75 mls/hr 08/24/19 09:56 08/24/19 10:08 D5-1/2ns - IV 75 mls/hr ASDIR TIKI Administration Lacosamide 200 mg 08/10/19 22:00 08/24/19 09:02 Vimpat Liquid - PO 200 mg BID TIKI Administration Levetiracetam 1,000 mg 08/10/19 22:00 08/24/19 09:03 Keppra Oral Solution - NGT 1,000 mg BID TIKI Administration Nystatin 500,000 units 08/08/19 18:05 Nystatin Oral Suspension - PO Q6HPO PRN ORAL PAIN/MOUTH SORES Nystatin 1 applic 08/21/19 11:15 08/24/19 09:05 Nystop Powder - TP 1 applic BID TIKI Administration Pantoprazole Sodium 40 mg 08/14/19 11:45 08/24/19 09:02 Protonix Iv IVPUSH 40 mg DAILY TIKI Administration Phenobarbital 60 mg 08/10/19 22:00 08/24/19 09:03 Phenobarbital Liquid - NGT 60 mg BID TIKI Administration Potassium Chloride 40 meq 08/08/19 22:00 08/24/19 09:02 Potassium Chloride Oral Liquid GT 40 meq BID TIKI Administration Quetiapine Fumarate 25 mg 08/18/19 10:45 08/24/19 09:06 Seroquel - PO 25 mg DAILY TIKI Administration Spironolactone 50 mg 08/21/19 10:00 08/24/19 09:04 Aldactone - GT 50 mg DAILY TIKI Administration Topiramate 200 mg 08/08/19 22:00 08/24/19 05:03 Topamax - GT 200 mg TID TIKI Administration Zinc Sulfate 220 mg 08/08/19 22:00 08/24/19 09:05 Orazinc - GT 220 mg BID TIKI Administration ASSESSMENT/PLAN: 39 y/o M with PMH Mental Retardation and epilepsy who presented to ED initially with SOB and hypoxia requiring intubation, admitted to hospital for hypoxic respiratory failure 2/2 to covid-19. Hospital course complicated by bacteremia, fungemia, MRSA PNA, now with recurrent fever. Acute Resp Failure 2/2 COVID-19 -s/p trach, convalescent plasma, tocilizumab -on AC vent settings. Weaning as tolerated -Pulm on board -persistent tachypnea Sepsis -leukocytosis, recurrent fever, tachycardia controlled with coreg/seroquel -recurrent fever/tachycardia with Bacteremia/fungemia -BCx (08/04/2019) pos for Staph capitis -repeat BCx neg, C diff neg, UCx neg -BCx (07/12/2019) pos for fungi. Received cancidas. Repeat BCx neg -Echo 07/21/2019 did not reveal vegetations -sputum (07/21/2019) for AFB negative -strongyloides (08/19/2019) negative -Sputum Cx (08/21/2019) pos for MRSA. Dapto sensitive. -ID on board. F/u Recs -Nephro on board -ABx held per ID Tachycardia -TFTs wnl -c/w Coreg -c/w low-dose seroquel to treat potential contribution of anxiety Transaminitis -likely 2/2 sepsis Epilepsy -c/w lorazepam prn, leviteracitam, phenobarbitol, lacosamide, topiramate DVT ppx -enoxaparin 40 Visit type - Emergency Visit Emergency Visit: No - New Patient This patient is new to me today: No - Critical Care Critical Care patient: No ATTENDING PHYSICIAN STATEMENT I saw and evaluated the patient. I reviewed the resident's note and discussed the case with the resident. I agree with the resident's findings and plan as documented. SUBJECTIVE: OBJECTIVE: ASSESSMENT AND PLAN:
--- NOTE | 2019-08-24 13:43 | PN ---
Progress Note, [employer] - Note Progress Note: PEG placed, pending initiation of feeding PMV assessment when medically stable for communication and to facilitate weaning from ventilator/ peg
--- NOTE | 2019-08-24 14:08 | PN ---
Progress Note, Physician History of Present Illness: Pt seen and examined at bedside. He remains on vent. - Current Medication List Current Medications: Active Medications Acetaminophen (Tylenol -) 650 mg PO Q6H PRN PRN Reason: Fever Or Pain Last Admin: 08/23/19 22:21 Dose: 650 mg Documented by: Albuterol/Ipratropium (Duoneb -) 1 amp NEB Q6H PRN PRN Reason: SHORTNESS OF BREATH Last Admin: 08/23/19 15:20 Dose: 1 amp Documented by: Amino Acids (Prosource No Carb Liquid Pkt) 30 ml GT BID@0800,1730 [facility] Last Admin: 08/24/19 08:57 Dose: 30 ml Documented by: Artificial Tears (Artificial Tears) 1 drop OU Q12H PRN PRN Reason: DRY EYES Last Admin: 08/10/19 10:43 Dose: 1 drop Documented by: Ascorbic Acid (Vitamin C Oral Solution -) 500 mg GT DAILY [facility] Last Admin: 08/24/19 09:10 Dose: 500 mg Documented by: Carvedilol (Coreg -) 6.25 mg PO BID [facility] Last Admin: 08/24/19 09:04 Dose: 6.25 mg Documented by: Cholecalciferol (Vitamin D3 -) 800 unit NR DAILY [facility] Last Admin: 08/24/19 09:10 Dose: 800 unit Documented by: Enoxaparin Sodium (Lovenox -) 40 mg SQ DAILY [facility] Last Admin: 08/24/19 09:04 Dose: 40 mg Documented by: Dextrose/Sodium Chloride (D5-1/2ns -) 1,000 mls @ 75 mls/hr IV ASDIR [facility] Last Admin: 08/24/19 10:08 Dose: 75 mls/hr Documented by: Lacosamide (Vimpat Liquid -) 200 mg PO BID [facility] Last Admin: 08/24/19 09:02 Dose: 200 mg Documented by: Levetiracetam (Keppra Oral Solution -) 1,000 mg NGT BID [facility] Last Admin: 08/24/19 09:03 Dose: 1,000 mg Documented by: Nystatin (Nystatin Oral Suspension -) 500,000 units PO Q6HPO PRN PRN Reason: ORAL PAIN/MOUTH SORES Nystatin (Nystop Powder -) 1 applic TP BID [facility] Last Admin: 08/24/19 09:05 Dose: 1 applic Documented by: Pantoprazole Sodium (Protonix Iv) 40 mg IVPUSH DAILY [facility] Last Admin: 08/24/19 09:02 Dose: 40 mg Documented by: Phenobarbital (Phenobarbital Liquid -) 60 mg NGT BID [facility] Last Admin: 08/24/19 09:03 Dose: 60 mg Documented by: Potassium Chloride (Potassium Chloride Oral Liquid) 40 meq GT BID [facility] Last Admin: 08/24/19 09:02 Dose: 40 meq Documented by: Quetiapine Fumarate (Seroquel -) 25 mg PO DAILY [facility] Last Admin: 08/24/19 09:06 Dose: 25 mg Documented by: Spironolactone (Aldactone -) 50 mg GT DAILY [facility] Last Admin: 08/24/19 09:04 Dose: 50 mg Documented by: Topiramate (Topamax -) 200 mg GT TID [facility] Last Admin: 08/24/19 05:03 Dose: 200 mg Documented by: Zinc Sulfate (Orazinc -) 220 mg GT BID [facility] Last Admin: 08/24/19 09:05 Dose: 220 mg Documented by: - Objective Vital Signs: Vital Signs Temperature 98 F 08/24/19 10:00 Pulse Rate 114 H 08/24/19 10:00 Respiratory Rate 25 H 08/24/19 12:15 Blood Pressure 158/108 H 08/24/19 10:00 O2 Sat by Pulse Oximetry (%) 100 08/24/19 08:20 Constitutional: Yes: Calm Eyes: Yes: Conjunctiva Clear HENT: Yes: Atraumatic Neck: Yes: Supple Cardiovascular: Yes: S1, S2 Respiratory: Yes: Mechanically Ventilated Gastrointestinal: Yes: Soft Genitourinary: Yes: Caceres Present Edema: Yes Edema: LLE: Trace, RLE: Trace Neurological: Yes: Other (awake) Labs: CBC, BMP 08/24/19 07:20 08/24/19 07:20 INR, PTT INR 1.20 (0.83-1.09) H 08/21/19 11:30 Problem List - Problems (1) Hypernatremia Code(s): E87.0 - HYPEROSMOLALITY AND HYPERNATREMIA (2) Hypokalemia Code(s): E87.6 - HYPOKALEMIA (3) Acute respiratory failure with hypoxia Code(s): J96.01 - ACUTE RESPIRATORY FAILURE WITH HYPOXIA (4) Bacteremia Code(s): R78.81 - BACTEREMIA Assessment/Plan Current Medications Generic Name Dose Route Start Last Admin Trade Name Freq PRN Reason Stop Dose Admin Acetaminophen 650 mg 08/21/19 13:08 08/23/19 22:21 Tylenol - PO 650 mg Q6H PRN Administration Fever Or Pain Albuterol/Ipratropium 1 amp 08/16/19 13:19 08/23/19 15:20 Duoneb - NEB 1 amp Q6H PRN Administration SHORTNESS OF BREATH Amino Acids 30 ml 08/09/19 08:00 08/24/19 08:57 Prosource No Carb Liquid Pkt GT 30 ml BID@0800,1730 T[facility] Administration Artificial Tears 1 drop 08/08/19 18:05 08/10/19 10:43 Artificial Tears OU 1 drop Q12H PRN Administration DRY EYES Ascorbic Acid 500 mg 08/09/19 10:00 08/24/19 09:10 Vitamin C Oral Solution - GT 500 mg DAILY T[facility] Administration Carvedilol 6.25 mg 08/20/19 09:33 08/24/19 09:04 Coreg - PO 6.25 mg BID TIKI Administration Cholecalciferol 800 unit 08/09/19 10:00 08/24/19 09:10 Vitamin D3 - NR 800 unit DAILY TIKI Administration Enoxaparin Sodium 40 mg 08/15/19 10:00 08/24/19 09:04 Lovenox - SQ 40 mg DAILY TIKI Administration Dextrose/Sodium Chloride 1,000 mls @ 75 mls/hr 08/24/19 09:56 08/24/19 10:08 D5-1/2ns - IV 75 mls/hr ASDIR TIKI Administration Lacosamide 200 mg 08/10/19 22:00 08/24/19 09:02 Vimpat Liquid - PO 200 mg BID TIKI Administration Levetiracetam 1,000 mg 08/10/19 22:00 08/24/19 09:03 Keppra Oral Solution - NGT 1,000 mg BID TIKI Administration Nystatin 500,000 units 08/08/19 18:05 Nystatin Oral Suspension - PO Q6HPO PRN ORAL PAIN/MOUTH SORES Nystatin 1 applic 08/21/19 11:15 06/22/20 09:05 Nystop Powder - TP 1 applic BID TIKI Administration Pantoprazole Sodium 40 mg 08/14/19 11:45 08/24/19 09:02 Protonix Iv IVPUSH 40 mg DAILY T[facility] Administration Phenobarbital 60 mg 08/10/19 22:00 08/24/19 09:03 Phenobarbital Liquid - NGT 60 mg BID TIKI Administration Potassium Chloride 40 meq 08/08/19 22:00 08/24/19 09:02 Potassium Chloride Oral Liquid GT 40 meq BID TIKI Administration Quetiapine Fumarate 25 mg 08/18/19 10:45 08/24/19 09:06 Seroquel - PO 25 mg DAILY T[facility] Administration Spironolactone 50 mg 08/21/19 10:00 08/24/19 09:04 Aldactone - GT 50 mg DAILY TIKI Administration Topiramate 200 mg 08/08/19 22:00 08/24/19 05:03 Topamax - GT 200 mg TID TIKI Administration Zinc Sulfate 220 mg 08/08/19 22:00 08/24/19 09:05 Orazinc - GT 220 mg BID TIKI Administration Impression 1. hypokalemia 2. hypernatremia 3. resp failure 4. fungemia 5. covid 19 infection 6. ards 7. developemental delay 8. epilepsy 9. bactermia 10. resp acidosis with compensatory met alk Plan - sodium is rising - hold diuretics - increase free water with feeds - change fluids from 1/2 to d5w - vent support - repeat labs in am - monitor sodium
--- NOTE | 2019-08-24 14:14 | PN ---
Physical Exam: SUBJECTIVE: Patient seen and examined bedside, fevers improved, abx held per ID recs. G tube placed awaiting confirmation first study inadequate. VSS. 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 Derm: No decubitus ulcers Vital Signs Period Temp Pulse Resp BP Sys/Ortiz Pulse Ox Last 24 Hr 97.8 F-102.6 F 114-140 24-30 128-158/88-108 100-100 Laboratory Results - last 24 hr 08/24/19 08/24/19 07:20 07:20 WBC 14.5 H RBC 3.72 L Hgb 10.3 L Hct 33.0 L MCV 88.9 MCH 27.8 MCHC 31.3 L RDW 17.2 H Plt Count 442 H MPV 11.0 Absolute Neuts (auto) 9.5 H Neutrophils % 65.5 Lymphocytes % 23.2 D Monocytes % 7.7 Eosinophils % 2.9 Basophils % 0.7 Nucleated RBC % 0 Sodium 153 H Potassium 3.8 Chloride 121 H Carbon Dioxide 19 L Anion Gap 12 BUN 21.3 H Creatinine 0.7 Est GFR (CKD-EPI)AfAm 138.75 Est GFR (CKD-EPI)NonAf 119.71 Random Glucose 115 H Calcium 9.6 Total Bilirubin 0.7 AST 85 H ALT 143 H Alkaline Phosphatase 163 H Total Protein 7.1 Albumin 3.1 L Active Medications Generic Name Dose Route Start Last Admin Trade Name Freq PRN Reason Stop Dose Admin Acetaminophen 650 mg 08/21/19 13:08 08/23/19 22:21 Tylenol - PO 650 mg Q6H PRN Administration Fever Or Pain Albuterol/Ipratropium 1 amp 08/16/19 13:19 08/23/19 15:20 Duoneb - NEB 1 amp Q6H PRN Administration SHORTNESS OF BREATH Amino Acids 30 ml 08/09/19 08:00 08/24/19 08:57 Prosource No Carb Liquid Pkt GT 30 ml BID@0800,1730 [facility] Administration Artificial Tears 1 drop 08/08/19 18:05 08/10/19 10:43 Artificial Tears OU 1 drop Q12H PRN Administration DRY EYES Ascorbic Acid 500 mg 08/09/19 10:00 08/24/19 09:10 Vitamin C Oral Solution - GT 500 mg DAILY [facility] Administration Carvedilol 6.25 mg 08/20/19 09:33 08/24/19 09:04 Coreg - PO 6.25 mg BID [facility] Administration Cholecalciferol 800 unit 08/09/19 10:00 08/24/19 09:10 Vitamin D3 - NR 800 unit DAILY [facility] Administration Enoxaparin Sodium 40 mg 08/15/19 10:00 08/24/19 09:04 Lovenox - SQ 40 mg DAILY [facility] Administration Potassium Chloride 40 meq/ 1,020 mls @ 83 mls/hr 08/24/19 14:15 Dextrose IVPB .Q12H3M [facility] Potassium Chloride 10 meq in 100 mls @ 100 mls/hr 08/24/19 14:15 Potassium Chloride 10 Meq Premix Ivpb - IVPB 08/24/19 15:14 Q60M [facility] Lacosamide 200 mg 08/10/19 22:00 08/24/19 09:02 Vimpat Liquid - PO 200 mg BID [facility] Administration Levetiracetam 1,000 mg 08/10/19 22:00 08/24/19 09:03 Keppra Oral Solution - NGT 1,000 mg BID [facility] Administration Nystatin 500,000 units 08/08/19 18:05 Nystatin Oral Suspension - PO Q6HPO PRN ORAL PAIN/MOUTH SORES Nystatin 1 applic 08/21/19 11:15 08/24/19 09:05 Nystop Powder - TP 1 applic BID [facility] Administration Pantoprazole Sodium 40 mg 08/14/19 11:45 08/24/19 09:02 Protonix Iv IVPUSH 40 mg DAILY [facility] Administration Phenobarbital 60 mg 08/10/19 22:00 08/24/19 09:03 Phenobarbital Liquid - NGT 60 mg BID T[facility]I Administration Potassium Chloride 40 meq 08/08/19 22:00 08/24/19 09:02 Potassium Chloride Oral Liquid GT 40 meq BID [facility] Administration Quetiapine Fumarate 25 mg 08/18/19 10:45 08/24/19 09:06 Seroquel - PO 25 mg DAILY [facility] Administration Topiramate 200 mg 08/08/19 22:00 08/24/19 05:03 Topamax - GT 200 mg TID [facility] Administration Zinc Sulfate 220 mg 08/08/19 22:00 08/24/19 09:05 Orazinc - GT 220 mg BID T[facility]I Administration ASSESSMENT/PLAN: 39 M Acute Resp Failure 2/2 COVID-19 s/p trach/plasma/Actemra Sepsis 2/2 polymicrobial infections (fungemia/bacteremia/COVID) Tachycardia Transaminitis Epilepsy Mental retardation Developmental delay Deconditioning Anemia Plan: s/p G tube placement, imaging study inadequate, IR to follow up to repeat study to confirm site placement Cont. Nystatin for fungemia, strongyloides neg. Follow COVID re-swab first swab "H" result ? insufficient specimen Cont. Coreg Follow G tube imaging for confirmation D5 1/2 NS due to inability to feed and hypernatremia Wean vent to minimize FiO2 req. for ~90% sat Cont. psych meds, Ativan PRN for anxiety/tachypnea Aggressive replacements of electrolytes DVT ppx: Lovenox SC (FOBT negative) Visit type - Emergency Visit Emergency Visit: Yes ED Registration Date: 06/22/19 Care time: The patient presented to the Emergency Department on the above date and was hospitalized for further evaluation of their emergent condition. - New Patient This patient is new to me today: No - Critical Care Critical Care patient: No - Discharge Referral Referred to [facility] Med P.C.: No
--- NOTE | 2019-08-24 14:15 | PN ---
Teaching Attending Note Name of Resident: Tomi Moya ATTENDING PHYSICIAN STATEMENT I saw and evaluated the patient. I reviewed the resident's note and discussed the case with the resident. I agree with the resident's findings and plan as documented. SUBJECTIVE: Patient seen and examined bedside, spiked fever overnight, will follow COVID re-swab. Abx held still per ID recs. VSS. 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 Derm: No decubitus ulcers Vital Signs - 24 hr 08/23/19 08/23/19 08/23/19 15:20 17:50 21:00 Temperature 99.0 F Pulse Rate 119 H Respiratory 30 H 29 H 28 H Rate Blood Pressure 128/88 O2 Sat by Pulse 100 100 Oximetry (%) 08/23/19 08/23/19 08/24/19 21:12 22:00 01:05 Temperature 102.6 F H Pulse Rate 140 H Respiratory 30 H 28 H 30 H Rate Blood Pressure 145/96 O2 Sat by Pulse 100 100 Oximetry (%) 08/24/19 08/24/19 08/24/19 02:00 05:10 06:00 Temperature 99.1 F 97.8 F Pulse Rate 134 H 123 H Respiratory 28 H 28 H 28 H Rate Blood Pressure 150/98 150/88 O2 Sat by Pulse 100 Oximetry (%) 08/24/19 08/24/19 08/24/19 08:20 10:00 12:15 Temperature 98 F Pulse Rate 114 H Respiratory 30 H 24 H 25 H Rate Blood Pressure 158/108 H O2 Sat by Pulse 100 Oximetry (%) Microbiology 08/21/19 03:17 Sputum - Endotrachea Suction/Ventilator AFB Smear Concentration - Final 08/21/19 03:17 Sputum - Endotrachea Suction/Ventilator Mycobacterial Culture - Preliminary 08/20/19 05:00 Sputum - Endotrachea Suction/Ventilator AFB Smear Concentration - Final 08/20/19 05:00 Sputum - Endotrachea Suction/Ventilator Mycobacterial Culture - Preliminary 08/20/19 20:20 Blood - Peripheral Venous Blood Culture - Preliminary NO GROWTH OBTAINED AFTER 72 HOURS, INCUBATION TO CONTINUE FOR 2 DAYS. 08/20/19 20:20 Blood - Peripheral Venous Blood Culture - Preliminary NO GROWTH OBTAINED AFTER 72 HOURS, INCUBATION TO CONTINUE FOR 2 DAYS. 08/21/19 03:17 Sputum - Endotrachea Suction/Ventilator Gram Stain - Final 08/21/19 03:17 Sputum - Endotrachea Suction/Ventilator Sputum Culture - Final Mr S Aureus 08/17/19 02:00 Blood - Peripheral Venous Blood Culture - Final NO GROWTH AFTER 5 DAYS INCUBATION 08/17/19 02:00 Blood - Peripheral Venous Blood Culture - Final NO GROWTH AFTER 5 DAYS INCUBATION 08/20/19 19:30 Stool Clostridioides difficile Antigen - Final 08/20/19 19:30 Stool Clostridioides difficile Toxin Assay - Final 08/20/19 19:30 Urine For Antigen Detection Legionella Antigen - Final 08/20/19 19:30 Urine For Antigen Detection Streptococcus pneumoniae Antigen (M - Final 08/18/19 12:00 Sputum - Endotrachea Suction/Ventilator AFB Smear Concentration - Final 08/18/19 12:00 Sputum - Endotrachea Suction/Ventilator Mycobacterial Culture - Preliminary 08/17/19 11:35 Urine - Urine Caceres Urine Culture - Final NO GROWTH OBTAINED 08/12/19 13:10 Blood - Peripheral Venous Blood Culture - Final NO GROWTH AFTER 5 DAYS INCUBATION 08/12/19 13:00 Blood - Peripheral Venous Blood Culture - Final NO GROWTH AFTER 5 DAYS INCUBATION 08/14/19 14:50 Sputum - Endotrachea Suction/Ventilator Gram Stain - Final 08/14/19 14:50 Sputum - Endotrachea Suction/Ventilator Sputum Culture - Final NORMAL RESPIRATORY RICKY 08/14/19 14:49 Stool Clostridioides difficile Antigen - Final 08/14/19 14:49 Stool Clostridioides difficile Toxin Assay - Final 08/09/19 11:45 Blood - Peripheral Venous Blood Culture - Final NO GROWTH AFTER 5 DAYS INCUBATION 08/09/19 11:52 Blood - Peripheral Venous Blood Culture - Final NO GROWTH AFTER 5 DAYS INCUBATION 08/12/19 14:45 Stool Clostridioides difficile Antigen - Final 08/12/19 14:45 Stool Clostridioides difficile Toxin Assay - Final 08/09/19 16:30 Urine - Urine Caceres Urine Culture - Final NO GROWTH OBTAINED 08/04/19 19:40 Blood - Peripheral Venous Blood Culture - Final Staphylococcus Capitis 08/04/19 19:50 Blood - Peripheral Venous Blood Culture - Final NO GROWTH AFTER 5 DAYS INCUBATION 08/05/19 13:45 Urine - Urine Caceres Urine Culture - Final NO GROWTH OBTAINED 07/31/19 16:30 Blood - Peripheral Venous Blood Culture - Final NO GROWTH AFTER 5 DAYS INCUBATION 07/31/19 17:25 Blood - Peripheral Venous Blood Culture - Final Staphylococcus Capitis 08/01/19 11:55 Sputum - Endotrachea Suction/Ventilator Gram Stain - Final 08/01/19 11:55 Sputum - Endotrachea Suction/Ventilator Sputum Culture - Final Mr S Aureus 07/29/19 11:46 Blood - Peripheral Venous Blood Culture - Final NO GROWTH AFTER 5 DAYS INCUBATION 07/29/19 11:18 Blood - Central Line Blood Culture - Final NO GROWTH AFTER 5 DAYS INCUBATION 07/29/19 11:18 Urine - Urine Caceres Urine Culture - Final NO GROWTH OBTAINED 07/12/19 11:04 Blood - Peripheral Venous Yeast/Fungus Identification - Final Janis Lusitaniae 07/18/19 21:10 Blood - Peripheral Venous Blood Culture - Final NO GROWTH AFTER 5 DAYS INCUBATION 07/18/19 18:30 Blood - Peripheral Venous Blood Culture - Final NO GROWTH AFTER 5 DAYS INCUBATION 07/15/19 12:25 Blood - Peripheral Venous Blood Culture - Final NO GROWTH AFTER 5 DAYS INCUBATION 07/16/19 15:15 Blood - Peripheral Venous Blood Culture - Final Staphylococcus Epidermidis 07/14/19 11:30 Blood - Peripheral Venous Blood Culture - Final NO GROWTH AFTER 5 DAYS INCUBATION 07/16/19 15:05 Blood - Peripheral Venous Blood Culture - Final Staphylococcus Epidermidis 07/16/19 12:30 Sputum - Endotrachea Suction/Ventilator Gram Stain - Final 07/16/19 12:30 Sputum - Endotrachea Suction/Ventilator Sputum Culture - Final Mr S Aureus Escherichia Coli 07/12/19 10:55 Blood - Peripheral Venous Blood Culture - Final NO GROWTH AFTER 5 DAYS INCUBATION 07/16/19 12:30 Urine - Urine - Catheterized Urine Culture - Final NO GROWTH OBTAINED 07/12/19 06:00 Sputum - Endotrachea Suction/Ventilator Gram Stain - Final 07/12/19 06:00 Sputum - Endotrachea Suction/Ventilator Sputum Culture - Final 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 Mr S Aureus 07/12/19 11:04 Blood - Peripheral Venous Blood Culture - Final 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 07/01/19 18:15 Blood - Peripheral Venous Blood Culture - Final NO GROWTH AFTER 5 DAYS INCUBATION 06/29/19 12:30 Blood - Peripheral Venous Blood Culture - Final Staphylococcus Epidermidis 06/30/19 17:15 Sputum - Endotrachea Suction/Ventilator Gram Stain - Final 06/30/19 17:15 Sputum - Endotrachea Suction/Ventilator Sputum Culture - Final Escherichia Coli Esbl Poultry Debeaker 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 06/28/19 09:00 Blood - Peripheral Venous Blood Culture - Final Staphylococcus Epidermidis 06/28/19 12:50 Sputum - Endotrachea Suction/Ventilator Gram Stain - Final 06/28/19 12:50 Sputum - Endotrachea Suction/Ventilator Sputum Culture - Final 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 Staphylococcus Aureus 06/25/19 13:40 Blood - Peripheral Venous Blood Culture - Final NO GROWTH AFTER 5 DAYS INCUBATION 06/25/19 13:20 Blood - Peripheral Venous Blood Culture - Final NO GROWTH AFTER 5 DAYS INCUBATION 06/28/19 12:51 Urine - Urine Caceres Urine Culture - Final NO GROWTH OBTAINED 06/22/19 13:00 Blood - Peripheral Venous Blood Culture - Final Staphylococcus Warneri 06/22/19 13:00 Blood - Peripheral Venous Blood Culture - Final Staphylococcus Epidermidis 06/24/19 00:01 Urine - Urine Caceres Urine Culture - Final NO GROWTH OBTAINED 06/24/19 00:01 Urine For Antigen Detection Legionella Antigen - Final 06/24/19 00:01 Urine For Antigen Detection Streptococcus pneumoniae Antigen (M - Final Laboratory Results - last 24 hr 08/24/19 08/24/19 07:20 07:20 WBC 14.5 H RBC 3.72 L Hgb 10.3 L Hct 33.0 L MCV 88.9 MCH 27.8 MCHC 31.3 L RDW 17.2 H Plt Count 442 H MPV 11.0 Absolute Neuts (auto) 9.5 H Neutrophils % 65.5 Lymphocytes % 23.2 D Monocytes % 7.7 Eosinophils % 2.9 Basophils % 0.7 Nucleated RBC % 0 Sodium 153 H Potassium 3.8 Chloride 121 H Carbon Dioxide 19 L Anion Gap 12 BUN 21.3 H Creatinine 0.7 Est GFR (CKD-EPI)AfAm 138.75 Est GFR (CKD-EPI)NonAf 119.71 Random Glucose 115 H Calcium 9.6 Total Bilirubin 0.7 AST 85 H ALT 143 H Alkaline Phosphatase 163 H Total Protein 7.1 Albumin 3.1 L Home Medications Medication Instructions Recorded Topiramate [Topamax -] 200 mg PO TID #90 tablet 06/10/18 Lacosamide [Vimpat] 200 mg PO BID #60 tablet MDD 2 06/11/18 Phenobarbital - 60 mg PO BID #120 tablet MDD 4 06/11/18 levETIRAcetam [Keppra -] 1,000 mg PO BID 06/22/19 Current Medications Generic Name Dose Route Start Last Admin Trade Name Freq PRN Reason Stop Dose Admin Acetaminophen 650 mg 08/21/19 13:08 08/23/19 22:21 Tylenol - PO 650 mg Q6H PRN Administration Fever Or Pain Albuterol/Ipratropium 1 amp 08/16/19 13:19 08/23/19 15:20 Duoneb - NEB 1 amp Q6H PRN Administration SHORTNESS OF BREATH Amino Acids 30 ml 08/09/19 08:00 08/24/19 08:57 Prosource No Carb Liquid Pkt GT 30 ml BID@0800,1730 TIKI Administration Artificial Tears 1 drop 08/08/19 18:05 08/10/19 10:43 Artificial Tears OU 1 drop Q12H PRN Administration DRY EYES Ascorbic Acid 500 mg 08/09/19 10:00 08/24/19 09:10 Vitamin C Oral Solution - GT 500 mg DAILY TIKI Administration Carvedilol 6.25 mg 08/20/19 09:33 08/24/19 09:04 Coreg - PO 6.25 mg BID TIKI Administration Cholecalciferol 800 unit 08/09/19 10:00 08/24/19 09:10 Vitamin D3 - NR 800 unit DAILY TIKI Administration Enoxaparin Sodium 40 mg 08/15/19 10:00 08/24/19 09:04 Lovenox - SQ 40 mg DAILY TIKI Administration Potassium Chloride 40 meq/ 1,020 mls @ 83 mls/hr 08/24/19 14:15 Dextrose IVPB .Q12H3M TIKI Potassium Chloride 10 meq in 100 mls @ 100 mls/hr 08/24/19 14:15 Potassium Chloride 10 Meq Premix Ivpb - IVPB 08/24/19 15:14 Q60M TIKI Lacosamide 200 mg 08/10/19 22:00 08/24/19 09:02 Vimpat Liquid - PO 200 mg BID TIKI Administration Levetiracetam 1,000 mg 08/10/19 22:00 08/24/19 09:03 Keppra Oral Solution - NGT 1,000 mg BID TIKI Administration Nystatin 500,000 units 08/08/19 18:05 Nystatin Oral Suspension - PO Q6HPO PRN ORAL PAIN/MOUTH SORES Nystatin 1 applic 08/21/19 11:15 08/24/19 09:05 Nystop Powder - TP 1 applic BID [facility] Administration Pantoprazole Sodium 40 mg 08/14/19 11:45 08/24/19 09:02 Protonix Iv IVPUSH 40 mg DAILY TIKI Administration Phenobarbital 60 mg 08/10/19 22:00 08/24/19 09:03 Phenobarbital Liquid - NGT 60 mg BID TIKI Administration Potassium Chloride 40 meq 08/08/19 22:00 08/24/19 09:02 Potassium Chloride Oral Liquid GT 40 meq BID TIKI Administration Quetiapine Fumarate 25 mg 08/18/19 10:45 08/24/19 09:06 Seroquel - PO 25 mg DAILY TIKI Administration Topiramate 200 mg 08/08/19 22:00 08/24/19 05:03 Topamax - GT 200 mg TID TIKI Administration Zinc Sulfate 220 mg 08/08/19 22:00 08/24/19 09:05 Orazinc - GT 220 mg BID TIKI Administration A/P: 39 M Acute Resp Failure 2/2 COVID-19 s/p trach/plasma/Actemra Sepsis 2/2 polymicrobial infections (fungemia/bacteremia/COVID) Tachycardia Transaminitis Epilepsy Mental retardation Developmental delay Deconditioning Anemia Plan: s/p G tube placement, imaging study inadequate, IR to follow up to repeat study to confirm site placement Cont. Nystatin for fungemia, strongyloides neg. Follow COVID re-swab first swab "H" result ? insufficient specimen Cont. Coreg Follow G tube imaging for confirmation D5W with free water feeds for hypernatremia Wean vent to minimize FiO2 req. for ~90% sat Cont. psych meds, Ativan PRN for anxiety/tachypnea Aggressive replacements of electrolytes DVT ppx: Lovenox SC (FOBT negative)
--- NOTE | 2019-08-24 14:36 | PN ---
Progress Note (short form) - Note Progress Note: NAD on AC Mode of vent. Intermittent fever. PPLat: 23 No acute events overnight. OBJECTIVE: Intake & Output 08/21/19 08/22/19 08/23/19 08/24/19 23:59 23:59 23:59 23:59 Intake Total 0 200 350 0 Output Total 1720 1850 925 400 Balance -1720 -1650 -575 -400 Weight 211 lb 1 oz 200 lb 211 lb 0.992 oz Last Vital Signs Temp Pulse Resp BP Pulse Ox 98 F 114 H 25 H 158/108 H 100 08/24/19 10:00 08/24/19 10:00 08/24/19 12:15 08/24/19 10:00 08/24/19 08:20 Active Medications Acetaminophen (Tylenol -) 650 mg PO Q6H PRN PRN Reason: Fever Or Pain Last Admin: 08/23/19 22:21 Dose: 650 mg Documented by: Albuterol/Ipratropium (Duoneb -) 1 amp NEB Q6H PRN PRN Reason: SHORTNESS OF BREATH Last Admin: 08/23/19 15:20 Dose: 1 amp Documented by: Amino Acids (Prosource No Carb Liquid Pkt) 30 ml GT BID@0800,1730 [facility] Last Admin: 08/24/19 08:57 Dose: 30 ml Documented by: Artificial Tears (Artificial Tears) 1 drop OU Q12H PRN PRN Reason: DRY EYES Last Admin: 08/10/19 10:43 Dose: 1 drop Documented by: Ascorbic Acid (Vitamin C Oral Solution -) 500 mg GT DAILY [facility] Last Admin: 08/24/19 09:10 Dose: 500 mg Documented by: Carvedilol (Coreg -) 6.25 mg PO BID [facility] Last Admin: 08/24/19 09:04 Dose: 6.25 mg Documented by: Cholecalciferol (Vitamin D3 -) 800 unit NR DAILY [facility] Last Admin: 08/24/19 09:10 Dose: 800 unit Documented by: Enoxaparin Sodium (Lovenox -) 40 mg SQ DAILY [facility] Last Admin: 08/24/19 09:04 Dose: 40 mg Documented by: Potassium Chloride 40 meq/ (Dextrose) 1,020 mls @ 83 mls/hr IVPB Q12H [facility] Potassium Chloride (Potassium Chloride 10 Meq Premix Ivpb -) 10 meq in 100 mls @ 100 mls/hr IVPB Q60M [facility] Stop: 08/24/19 15:44 Last Admin: 08/24/19 14:32 Dose: 100 mls/hr Documented by: Lacosamide (Vimpat Liquid -) 200 mg PO BID [facility] Last Admin: 08/24/19 09:02 Dose: 200 mg Documented by: Levetiracetam (Keppra Oral Solution -) 1,000 mg NGT BID [facility] Last Admin: 08/24/19 09:03 Dose: 1,000 mg Documented by: Nystatin (Nystatin Oral Suspension -) 500,000 units PO Q6HPO PRN PRN Reason: ORAL PAIN/MOUTH SORES Nystatin (Nystop Powder -) 1 applic TP BID [facility] Last Admin: 08/24/19 09:05 Dose: 1 applic Documented by: Pantoprazole Sodium (Protonix Iv) 40 mg IVPUSH DAILY [facility] Last Admin: 08/24/19 09:02 Dose: 40 mg Documented by: Phenobarbital (Phenobarbital Liquid -) 60 mg NGT BID [facility] Last Admin: 08/24/19 09:03 Dose: 60 mg Documented by: Potassium Chloride (Potassium Chloride Oral Liquid) 40 meq GT BID [facility] Last Admin: 08/24/19 09:02 Dose: 40 meq Documented by: Quetiapine Fumarate (Seroquel -) 25 mg PO DAILY [facility] Last Admin: 08/24/19 09:06 Dose: 25 mg Documented by: Topiramate (Topamax -) 200 mg GT TID [facility] Last Admin: 08/24/19 14:32 Dose: 200 mg Documented by: Zinc Sulfate (Orazinc -) 220 mg GT BID [facility] Last Admin: 08/24/19 09:05 Dose: 220 mg Documented by: Gen: trached, awake Heart: RRR Lung: decreased breath sounds at the bases Abd: soft, nontender Ext: + edema Laboratory Results - last 24 hr 08/24/19 08/24/19 07:20 07:20 WBC 14.5 H RBC 3.72 L Hgb 10.3 L Hct 33.0 L MCV 88.9 MCH 27.8 MCHC 31.3 L RDW 17.2 H Plt Count 442 H MPV 11.0 Absolute Neuts (auto) 9.5 H Neutrophils % 65.5 Lymphocytes % 23.2 D Monocytes % 7.7 Eosinophils % 2.9 Basophils % 0.7 Nucleated RBC % 0 Sodium 153 H Potassium 3.8 Chloride 121 H Carbon Dioxide 19 L Anion Gap 12 BUN 21.3 H Creatinine 0.7 Est GFR (CKD-EPI)AfAm 138.75 Est GFR (CKD-EPI)NonAf 119.71 Random Glucose 115 H Calcium 9.6 Total Bilirubin 0.7 AST 85 H ALT 143 H Alkaline Phosphatase 163 H Total Protein 7.1 Albumin 3.1 L ASSESSMENT AND PLAN: Acute Hypoxic and Hypercapneic Respiratory Failure COVID19 Pneumonia E Coli Pneumonia Fungenmia Bacteremia Septic Shock Seizure Disorder Mental Retardation - AC Mode of vent - Off ABX per ID - continue antiepileptics - monitor urine output, creatinine - low tidal volume ventilation - titrate FiO2, PEEP to keep SpO2 >90% - spontaeneous breathing trials as tolerated - enteral feeds: PEG insertion once stable - DVT/GI prophylaxis Dr Callaway
[2019-08-24] MEDS ORDERED: KCL 10 MEQ IVPB 10 MEQ/100 ML INFUS.BAG IVPB SCH (14:45)
[2019-08-24] MEDS: POTASSIUM CHLORIDE 40 MEQ in DEXTROSE 5%-WATER - 1,000 ML IVPB SCH (16:38)
[2019-08-25] MEDS: POTASSIUM CHLORIDE 40 MEQ in DEXTROSE 5%-WATER - 1,000 ML IVPB SCH ×2 (05:02→16:41)
[2019-08-25] MEDS: TOPIRAMATE 200 MG TABLET GT SCH ×3 (06:27→21:19)
[2019-08-25 08:37] LABS: BASO % 1.2 % (0-2.0); EOS % 8.6 % (0-4.5); HEMATOCRIT 31.9 % (35.4-49); HEMOGLOBIN 9.9 GM/dL (11.7-16.9); LYMPH % 25.7 % (8-40); MCH 27.8 pg (25.7-33.7); MCHC 30.9 g/dl (32.0-35.9); MEAN PLT VOLUME 11.6 fl (7.5-11.1); MONO % 6.2 % (3.8-10.2); NEUT % 58.3 % (42.8-82.8); RBC 3.55 M/mm3 (4.00-5.60); RDW 17.4 % (11.9-15.9)
[2019-08-25] MEDS ORDERED: PT OWN MED DRAWER 7, Y5N ONE ×2 (09:06→13:06)
[2019-08-25 09:10] LABS: BILIRUBIN,TOTAL 0.4 mg/dL (0.2-1); BLOOD UREA NITROGEN 12.9 mg/dL (7-18); CALCIUM 9.5 mg/dL (8.5-10.1); CREATININE 0.5 mg/dL (0.55-1.3); POTASSIUM 4.2 mmol/L (3.5-5.1); TOT PROT 6.7 g/dl (6.4-8.2)
[2019-08-25 09:11] LABS: WHITE BLOOD COUNT 14.6 K/mm3 (4.0-10.0)
[2019-08-25] MEDS: AMINO ACIDS/PROTEIN HYDROLYS 30 ML LIQUID.PKT GT SCH ×2 (09:11→18:38)
[2019-08-25] MEDS: levETIRAcetam 500 MG/5 ML ORAL SOLUTION (UNIT-DOSE CUPS) NGT SCH ×2 (09:12→21:17)
[2019-08-25] MEDS: POTASSIUM CHLORIDE ORAL LIQUID 20 MEQ/15 ML GT SCH ×2 (09:12→21:19)
[2019-08-25] MEDS: CHOLECALCIFEROL (VIT D3) 400 UNIT (10 MCG) TABLET NR SCH (09:12)
[2019-08-25] MEDS: PHENobarbital 20 MG/5 ML UNIT-DOSE CUP NGT SCH ×2 (09:12→21:18)
[2019-08-25] MEDS: Lacosamide 50 MG/5 ML ORAL SOLUTION UNIT CUPS PO SCH ×2 (09:13→21:19)
[2019-08-25] MEDS: CARVEDILOL 6.25 MG TABLET (FP) PO SCH ×2 (09:13→21:17)
[2019-08-25] MEDS: ENOXAPARIN NA (PORCINE) 40 MG/0.4 ML DISP.SYRIN SQ SCH (09:13)
[2019-08-25] MEDS: NYSTATIN POWDER 100,000 UNITS/GM - 15 GM TOPICAL POWDER TP SCH ×2 (09:14→21:18)
[2019-08-25] MEDS: ZINC SULFATE 220 MG CAPSULE (FP) GT SCH ×2 (09:14→21:18)
[2019-08-25] MEDS: PANTOPRAZOLE SODIUM 40 MG VIAL IVPUSH SCH (09:14)
[2019-08-25] MEDS: QUEtiapine FUMARATE 25 MG TABLET PO SCH (09:15)
--- NOTE | 2019-08-25 10:38 | PN ---
<Tomi Moya - Last Filed: 08/25/19 10:31> Physical Exam: SUBJECTIVE: Patient seen and examined at bedside. No fever overnight. OBJECTIVE: Vital Signs Period Temp Pulse Resp BP Sys/Ortiz Pulse Ox Last 24 Hr 98.1 F-99.3 F 80-106 20-30 130-143/40-98 98-100 Gen: trach tube in place, tachypnic, nonverbal; follows commands HEENT: NCAT, moist membranes Neck: trach tube in place Cardio: tachycardic, regular, no mrg noted Pulm: cta b/l Abd: Soft, nondistended. Percutaneous G tube in place. CDI Ext: no edema Laboratory Results - last 24 hr 08/21/19 08/25/19 08/25/19 23:55 07:24 07:24 WBC 14.6 H RBC 3.55 L Hgb 9.9 L Hct 31.9 L MCV 90.0 MCH 27.8 MCHC 30.9 L RDW 17.4 H MPV 11.6 H Absolute Neuts (auto) 7.3 Neutrophils % 58.3 Lymphocytes % 25.7 Monocytes % 6.2 Eosinophils % 8.6 H D Basophils % 1.2 Nucleated RBC % 0 Sodium 148 H Potassium 4.2 Chloride 120 H Carbon Dioxide 19 L Anion Gap 10 BUN 12.9 Creatinine 0.5 L Est GFR (CKD-EPI)AfAm 159.33 Est GFR (CKD-EPI)NonAf 137.47 Random Glucose 103 Calcium 9.5 Total Bilirubin 0.4 AST 66 H ALT 132 H Alkaline Phosphatase 141 H Total Protein 6.7 Albumin 3.0 L COVID-19 (LEROY) Not detected Active Medications Generic Name Dose Route Start Last Admin Trade Name Freq PRN Reason Stop Dose Admin Acetaminophen 650 mg 08/21/19 13:08 08/23/19 22:21 Tylenol - PO 650 mg Q6H PRN Administration Fever Or Pain Albuterol/Ipratropium 1 amp 08/16/19 13:19 08/23/19 15:20 Duoneb - NEB 1 amp Q6H PRN Administration SHORTNESS OF BREATH Amino Acids 30 ml 08/09/19 08:00 08/25/19 09:11 Prosource No Carb Liquid Pkt GT 30 ml BID@0800,1730 [facility]I Administration Artificial Tears 1 drop 08/08/19 18:05 08/10/19 10:43 Artificial Tears OU 1 drop Q12H PRN Administration DRY EYES Ascorbic Acid 500 mg 08/09/19 10:00 08/24/19 09:10 Vitamin C Oral Solution - GT 500 mg DAILY [facility] Administration Carvedilol 6.25 mg 08/20/19 09:33 08/25/19 09:13 Coreg - PO 6.25 mg BID [facility]I Administration Cholecalciferol 800 unit 08/09/19 10:00 08/25/19 09:12 Vitamin D3 - NR 800 unit DAILY [facility] Administration Enoxaparin Sodium 40 mg 08/15/19 10:00 08/25/19 09:13 Lovenox - SQ 40 mg DAILY [facility] Administration Potassium Chloride 40 meq/ 1,020 mls @ 83 mls/hr 08/24/19 15:00 08/25/19 05:02 Dextrose IVPB 83 mls/hr Q12H [facility]I Administration Lacosamide 200 mg 08/10/19 22:00 08/25/19 09:13 Vimpat Liquid - PO 200 mg BID [facility] Administration Levetiracetam 1,000 mg 08/10/19 22:00 08/25/19 09:12 Keppra Oral Solution - NGT 1,000 mg BID [facility]I Administration Nystatin 500,000 units 08/08/19 18:05 Nystatin Oral Suspension - PO Q6HPO PRN ORAL PAIN/MOUTH SORES Nystatin 1 applic 08/21/19 11:15 08/25/19 09:14 Nystop Powder - TP 1 applic BID [facility]I Administration Pantoprazole Sodium 40 mg 08/14/19 11:45 08/25/19 09:14 Protonix Iv IVPUSH 40 mg DAILY [facility] Administration Phenobarbital 60 mg 08/10/19 22:00 08/25/19 09:12 Phenobarbital Liquid - NGT 60 mg BID [facility] Administration Potassium Chloride 40 meq 08/08/19 22:00 08/25/19 09:12 Potassium Chloride Oral Liquid GT 40 meq BID [facility] Administration Quetiapine Fumarate 25 mg 08/18/19 10:45 08/25/19 09:15 Seroquel - PO 25 mg DAILY [facility] Administration Topiramate 200 mg 08/08/19 22:00 08/25/19 06:27 Topamax - GT 200 mg TID [facility] Administration Zinc Sulfate 220 mg 08/08/19 22:00 08/25/19 09:14 Orazinc - GT 220 mg BID [facility] Administration ASSESSMENT/PLAN: 39 y/o M with PMH Mental Retardation and epilepsy who presented to ED initially with SOB and hypoxia requiring intubation, admitted to hospital for hypoxic respiratory failure 2/2 to covid-19. Hospital course complicated by bacteremia, fungemia, MRSA PNA, now with recurrent fever. Acute Resp Failure 2/2 COVID-19 -s/p trach, convalescent plasma, tocilizumab -on AC vent settings. Weaning as tolerated -Pulm on board Sepsis -persistent leukocytosis, presently afebrile -recurrent fever/tachycardia with Bacteremia/fungemia -BCx (08/04/2019) pos for Staph capitis -BCx (07/12/2019) pos for fungi. Received cancidas -Echo 07/21/2019 did not reveal vegetations -sputum (07/21/2019) for AFB negative -strongyloides (08/19/2019) negative -Sputum Cx (08/21/2019) pos for MRSA. Dapto sensitive. -ID on board. F/u Recs. Presently observing off Abx -Nephro on board G-tube -placement confirmed -advance feeds Tachycardia -TFTs wnl -c/w Coreg -c/w low-dose seroquel to treat potential contribution of anxiety Transaminitis -likely 2/2 sepsis Epilepsy -c/w lorazepam prn, leviteracitam, phenobarbitol, lacosamide, topiramate DVT ppx -enoxaparin 40 Visit type - Emergency Visit Emergency Visit: No - New Patient This patient is new to me today: No - Critical Care Critical Care patient: No ATTENDING PHYSICIAN STATEMENT I saw and evaluated the patient. I reviewed the resident's note and discussed the case with the resident. I agree with the resident's findings and plan as documented. SUBJECTIVE: OBJECTIVE: ASSESSMENT AND PLAN: <Birdie Rudolph - Last Filed: 08/25/19 18:51> Physical Exam: SUBJECTIVE: Patient seen and examined OBJECTIVE: Vital Signs Period Temp Pulse Resp BP Sys/Ortiz Pulse Ox Last 24 Hr 98.1 F-99.3 F 80-106 22-28 126-143/40-92 98-100 as above Laboratory Results - last 24 hr 08/21/19 08/25/19 08/25/19 23:55 07:24 07:24 WBC 14.6 H RBC 3.55 L Hgb 9.9 L Hct 31.9 L MCV 90.0 MCH 27.8 MCHC 30.9 L RDW 17.4 H Plt Count 372 MPV 11.6 H Absolute Neuts (auto) 7.3 Neutrophils % 58.3 Lymphocytes % 25.7 Monocytes % 6.2 Eosinophils % 8.6 H D Basophils % 1.2 Nucleated RBC % 0 Platelet Estimate Normal Sodium 148 H Potassium 4.2 Chloride 120 H Carbon Dioxide 19 L Anion Gap 10 BUN 12.9 Creatinine 0.5 L Est GFR (CKD-EPI)AfAm 159.33 Est GFR (CKD-EPI)NonAf 137.47 Random Glucose 103 Calcium 9.5 Total Bilirubin 0.4 AST 66 H ALT 132 H Alkaline Phosphatase 141 H Total Protein 6.7 Albumin 3.0 L COVID-19 ([facility]) Not detected Active Medications Generic Name Dose Route Start Last Admin Trade Name Freq PRN Reason Stop Dose Admin Acetaminophen 650 mg 08/21/19 13:08 08/23/19 22:21 Tylenol - PO 650 mg Q6H PRN Administration Fever Or Pain Albuterol/Ipratropium 1 amp 08/16/19 13:19 08/23/19 15:20 Duoneb - NEB 1 amp Q6H PRN Administration SHORTNESS OF BREATH Amino Acids 30 ml 08/09/19 08:00 08/25/19 18:38 Prosource No Carb Liquid Pkt GT 30 ml BID@0800,1730 T[facility]I Administration Artificial Tears 1 drop 08/08/19 18:05 08/10/19 10:43 Artificial Tears OU 1 drop Q12H PRN Administration DRY EYES Ascorbic Acid 500 mg 08/09/19 10:00 08/25/19 13:18 Vitamin C Oral Solution - GT 500 mg DAILY [facility] Administration Carvedilol 6.25 mg 08/20/19 09:33 08/25/19 09:13 Coreg - PO 6.25 mg BID [facility]I Administration Cholecalciferol 800 unit 08/09/19 10:00 08/25/19 09:12 Vitamin D3 - NR 800 unit DAILY [facility] Administration Enoxaparin Sodium 40 mg 08/15/19 10:00 08/25/19 09:13 Lovenox - SQ 40 mg DAILY [facility] Administration Lacosamide 200 mg 08/10/19 22:00 08/25/19 09:13 Vimpat Liquid - PO 200 mg BID [facility] Administration Levetiracetam 1,000 mg 08/10/19 22:00 08/25/19 09:12 Keppra Oral Solution - NGT 1,000 mg BID [facility] Administration Nystatin 500,000 units 08/08/19 18:05 Nystatin Oral Suspension - PO Q6HPO PRN ORAL PAIN/MOUTH SORES Nystatin 1 applic 08/21/19 11:15 08/25/19 09:14 Nystop Powder - TP 1 applic BID [facility]I Administration Pantoprazole Sodium 40 mg 08/14/19 11:45 08/25/19 09:14 Protonix Iv IVPUSH 40 mg DAILY [facility] Administration Phenobarbital 60 mg 08/10/19 22:00 08/25/19 09:12 Phenobarbital Liquid - NGT 60 mg BID [facility]I Administration Potassium Chloride 40 meq 08/08/19 22:00 08/25/19 09:12 Potassium Chloride Oral Liquid GT 40 meq BID [facility] Administration Quetiapine Fumarate 25 mg 08/18/19 10:45 08/25/19 09:15 Seroquel - PO 25 mg DAILY [facility] Administration Topiramate 200 mg 08/08/19 22:00 08/25/19 13:20 Topamax - GT 200 mg TID [facility]I Administration Zinc Sulfate 220 mg 08/08/19 22:00 08/25/19 09:14 Orazinc - GT 220 mg BID [facility]I Administration ASSESSMENT/PLAN: 39 y/o M with PMH Mental Retardation and epilepsy who presented to ED initially with SOB and hypoxia requiring intubation, admitted to hospital for hypoxic respiratory failure 2/[address] [facility]-19. Hospital course complicated by bacteremia, fungemia, MRSA PNA, now with recurrent fever. Acute Resp Failure 2/2 COVID-19 -s/p trach, convalescent plasma, tocilizumab -on AC vent settings. Weaning as tolerated -Pulm on board Sepsis -persistent leukocytosis, presently afebrile -recurrent fever/tachycardia with Bacteremia/fungemia -BCx (08/04/2019) pos for Staph capitis -BCx (07/12/2019) pos for fungi. Received cancidas -Echo 07/21/2019 did not reveal vegetations -sputum (07/21/2019) for AFB negative -strongyloides (08/19/2019) negative -Sputum Cx (08/21/2019) pos for MRSA. Dapto sensitive. -ID on board. F/u Recs. Presently observing off Abx -Nephro on board if he stay afibrile and talk to nurse case management may be he can go to a vent unit halfway G-tube -placement confirmed -advance feeds Tachycardia -TFTs wnl -c/w Coreg -c/w low-dose seroquel to treat potential contribution of anxiety Transaminitis -likely 2/2 sepsis Epilepsy -c/w lorazepam prn, leviteracitam, phenobarbitol, lacosamide, topiramate DVT ppx -enoxaparin 40 ATTENDING PHYSICIAN STATEMENT I saw and evaluated the patient. I reviewed the resident's note and discussed the case with the resident. I agree with the resident's findings and plan as documented. SUBJECTIVE: OBJECTIVE: ASSESSMENT AND PLAN:
[2019-08-25 10:46] LABS: PLATELET ESTIMATE NORMAL
--- NOTE | 2019-08-25 11:14 | PN ---
Progress Note, BUTCHERETTE - Note Progress Note: PEG placed. TF ordered. Selected Entries 08/25/19 08/25/19 08/25/19 00:05 02:00 04:20 Temperature 99.3 F Pulse Rate 105 H Pulse Rhythm [ Right Radial] Pulse Strength [Right Radial] Respiratory 28 H 26 H 26 H Rate Respiratory Depth Respiratory Effort Respiratory Pattern Blood Pressure 143/92 Blood Pressure 110 Mean O2 Sat by Pulse 98 100 Oximetry (%) Oxygen Delivery Method Fraction of 40 40 Inspired Oxygen (FIO2) 08/25/19 08/25/19 08/25/19 06:00 08:27 09:00 Temperature 98.1 F Pulse Rate 80 89 Pulse Rhythm [ Regular Right Radial] Pulse Strength Normal [Right Radial] Respiratory 24 H 25 H Rate Respiratory Normal Depth Respiratory Mechanically Effort Ventilated Respiratory Tachypnea Pattern Blood Pressure 133/40 L Blood Pressure 69 Mean O2 Sat by Pulse 100 100 Oximetry (%) Oxygen Delivery Mechanical Mechanical Method Ventilator Ventilator Fraction of 40 40 Inspired Oxygen (FIO2) 08/25/19 10:00 Temperature 98.1 F Pulse Rate 93 H Pulse Rhythm [ Right Radial] Pulse Strength [Right Radial] Respiratory 24 H Rate Respiratory Depth Respiratory Effort Respiratory Pattern Blood Pressure 139/84 Blood Pressure 111 Mean O2 Sat by Pulse Oximetry (%) Oxygen Delivery Method Fraction of Inspired Oxygen (FIO2) Per CCC-Pt has been trached and is currently on a ventilator. Pt will need to be weaned off the ventilator and PT in order to be dc, but pt remains acute at this time. PMV assessment when medically stable for communication and to facilitate weaning from ventilator/ peg
[2019-08-25 11:19] LABS: PLATELET COUNT 372 K/MM3 (134-434)
--- NOTE | 2019-08-25 11:44 | PN ---
Progress Note, Physician Chief Complaint: pulmonary awake,alert,on vent support ac mode,afebrile - Current Medication List Current Medications: Active Medications Acetaminophen (Tylenol -) 650 mg PO Q6H PRN PRN Reason: Fever Or Pain Last Admin: 08/23/19 22:21 Dose: 650 mg Documented by: Albuterol/Ipratropium (Duoneb -) 1 amp NEB Q6H PRN PRN Reason: SHORTNESS OF BREATH Last Admin: 08/23/19 15:20 Dose: 1 amp Documented by: Amino Acids (Prosource No Carb Liquid Pkt) 30 ml GT BID@0800,1730 [facility] Last Admin: 08/25/19 09:11 Dose: 30 ml Documented by: Artificial Tears (Artificial Tears) 1 drop OU Q12H PRN PRN Reason: DRY EYES Last Admin: 08/10/19 10:43 Dose: 1 drop Documented by: Ascorbic Acid (Vitamin C Oral Solution -) 500 mg GT DAILY [facility] Last Admin: 08/24/19 09:10 Dose: 500 mg Documented by: Carvedilol (Coreg -) 6.25 mg PO BID [facility] Last Admin: 08/25/19 09:13 Dose: 6.25 mg Documented by: Cholecalciferol (Vitamin D3 -) 800 unit NR DAILY [facility] Last Admin: 08/25/19 09:12 Dose: 800 unit Documented by: Enoxaparin Sodium (Lovenox -) 40 mg SQ DAILY [facility] Last Admin: 08/25/19 09:13 Dose: 40 mg Documented by: Potassium Chloride 40 meq/ (Dextrose) 1,020 mls @ 83 mls/hr IVPB Q12H [facility] Last Admin: 08/25/19 05:02 Dose: 83 mls/hr Documented by: Lacosamide (Vimpat Liquid -) 200 mg PO BID [facility] Last Admin: 08/25/19 09:13 Dose: 200 mg Documented by: Levetiracetam (Keppra Oral Solution -) 1,000 mg NGT BID [facility] Last Admin: 08/25/19 09:12 Dose: 1,000 mg Documented by: Nystatin (Nystatin Oral Suspension -) 500,000 units PO Q6HPO PRN PRN Reason: ORAL PAIN/MOUTH SORES Nystatin (Nystop Powder -) 1 applic TP BID [facility] Last Admin: 08/25/19 09:14 Dose: 1 applic Documented by: Pantoprazole Sodium (Protonix Iv) 40 mg IVPUSH DAILY [facility] Last Admin: 08/25/19 09:14 Dose: 40 mg Documented by: Phenobarbital (Phenobarbital Liquid -) 60 mg NGT BID [facility] Last Admin: 08/25/19 09:12 Dose: 60 mg Documented by: Potassium Chloride (Potassium Chloride Oral Liquid) 40 meq GT BID [facility] Last Admin: 08/25/19 09:12 Dose: 40 meq Documented by: Quetiapine Fumarate (Seroquel -) 25 mg PO DAILY [facility] Last Admin: 08/25/19 09:15 Dose: 25 mg Documented by: Topiramate (Topamax -) 200 mg GT TID [facility] Last Admin: 08/25/19 06:27 Dose: 200 mg Documented by: Zinc Sulfate (Orazinc -) 220 mg GT BID [facility] Last Admin: 08/25/19 09:14 Dose: 220 mg Documented by: - Objective Vital Signs: Vital Signs Temperature 98.1 F 08/25/19 10:00 Pulse Rate 93 H 08/25/19 10:00 Respiratory Rate 24 H 08/25/19 10:00 Blood Pressure 139/84 08/25/19 10:00 O2 Sat by Pulse Oximetry (%) 100 08/25/19 09:00 Constitutional: Yes: Well Nourished, Calm Eyes: Yes: WNL HENT: Yes: WNL Neck: Yes: Supple (trach) Cardiovascular: Yes: Regular Rate and Rhythm, S1, S2 Respiratory: Yes: Rhonchi (scattered rhonchi) Gastrointestinal: Yes: Normal Bowel Sounds, Soft Extremities: Yes: WNL Edema: No Labs: CBC, BMP 08/25/19 07:24 08/25/19 07:24 INR, PTT INR 1.20 (0.83-1.09) H 08/21/19 11:30 Problem List - Problems (1) COVID-19 Code(s): U07.1 - COVID POSITIVE (2) COVID-19 Code(s): U07.1 - COVID POSITIVE (3) Acute respiratory failure with hypoxia Code(s): J96.01 - ACUTE RESPIRATORY FAILURE WITH HYPOXIA (4) Seizure disorder Code(s): G40.909 - EPILEPSY, UNSP, NOT INTRACTABLE, WITHOUT STATUS EPILEPTICUS (5) Status epilepticus Code(s): G40.901 - EPILEPSY, UNSP, NOT INTRACTABLE, WITH STATUS EPILEPTICUS Assessment/Plan ASSESSMENT AND PLAN: Acute Hypoxic and Hypercapneic Respiratory Failure COVID19 Pneumonia E Coli Pneumonia Fungenmia Bacteremia Septic Shock Seizure Disorder Mental Retardation ABNORMAL LFTS fever - Ativan PRN - antiepileptics - monitor urine output, creatinine - low tidal volume ventilation - titrate FiO2, PEEP to keep SpO2 >90% - spontaeneous breathing trials as tolerated - DVT/GI prophylaxis - monitor lfts - inhaled bronchodilators Dr MARTINEZ
[2019-08-25] MEDS: ASCORBIC ACID 500 MG/5 ML UNIT DOSE CUP GT SCH (13:18)
--- NOTE | 2019-08-25 14:14 | PN ---
Progress Note, Physician History of Present Illness: Pt seen and examined at bedside. He remains on vent. - Current Medication List Current Medications: Active Medications Acetaminophen (Tylenol -) 650 mg PO Q6H PRN PRN Reason: Fever Or Pain Last Admin: 08/23/19 22:21 Dose: 650 mg Documented by: Albuterol/Ipratropium (Duoneb -) 1 amp NEB Q6H PRN PRN Reason: SHORTNESS OF BREATH Last Admin: 08/23/19 15:20 Dose: 1 amp Documented by: Amino Acids (Prosource No Carb Liquid Pkt) 30 ml GT BID@0800,1730 [facility] Last Admin: 08/25/19 09:11 Dose: 30 ml Documented by: Artificial Tears (Artificial Tears) 1 drop OU Q12H PRN PRN Reason: DRY EYES Last Admin: 08/10/19 10:43 Dose: 1 drop Documented by: Ascorbic Acid (Vitamin C Oral Solution -) 500 mg GT DAILY [facility] Last Admin: 08/25/19 13:18 Dose: 500 mg Documented by: Carvedilol (Coreg -) 6.25 mg PO BID [facility] Last Admin: 08/25/19 09:13 Dose: 6.25 mg Documented by: Cholecalciferol (Vitamin D3 -) 800 unit NR DAILY [facility] Last Admin: 08/25/19 09:12 Dose: 800 unit Documented by: Enoxaparin Sodium (Lovenox -) 40 mg SQ DAILY [facility] Last Admin: 08/25/19 09:13 Dose: 40 mg Documented by: Potassium Chloride 40 meq/ (Dextrose) 1,020 mls @ 83 mls/hr IVPB Q12H [facility] Last Admin: 08/25/19 05:02 Dose: 83 mls/hr Documented by: Lacosamide (Vimpat Liquid -) 200 mg PO BID [facility] Last Admin: 08/25/19 09:13 Dose: 200 mg Documented by: Levetiracetam (Keppra Oral Solution -) 1,000 mg NGT BID [facility] Last Admin: 08/25/19 09:12 Dose: 1,000 mg Documented by: Nystatin (Nystatin Oral Suspension -) 500,000 units PO Q6HPO PRN PRN Reason: ORAL PAIN/MOUTH SORES Nystatin (Nystop Powder -) 1 applic TP BID [facility] Last Admin: 08/25/19 09:14 Dose: 1 applic Documented by: Pantoprazole Sodium (Protonix Iv) 40 mg IVPUSH DAILY [facility] Last Admin: 08/25/19 09:14 Dose: 40 mg Documented by: Phenobarbital (Phenobarbital Liquid -) 60 mg NGT BID [facility] Last Admin: 08/25/19 09:12 Dose: 60 mg Documented by: Potassium Chloride (Potassium Chloride Oral Liquid) 40 meq GT BID [facility] Last Admin: 08/25/19 09:12 Dose: 40 meq Documented by: Quetiapine Fumarate (Seroquel -) 25 mg PO DAILY [facility] Last Admin: 08/25/19 09:15 Dose: 25 mg Documented by: Topiramate (Topamax -) 200 mg GT TID [facility] Last Admin: 08/25/19 13:20 Dose: 200 mg Documented by: Zinc Sulfate (Orazinc -) 220 mg GT BID [facility] Last Admin: 08/25/19 09:14 Dose: 220 mg Documented by: - Objective Vital Signs: Vital Signs Temperature 98.1 F 08/25/19 10:00 Pulse Rate 93 H 08/25/19 10:00 Respiratory Rate 24 H 08/25/19 10:00 Blood Pressure 139/84 08/25/19 10:00 O2 Sat by Pulse Oximetry (%) 100 08/25/19 09:00 Constitutional: Yes: Calm Eyes: Yes: Conjunctiva Clear HENT: Yes: Atraumatic Neck: Yes: Supple Cardiovascular: Yes: S1, S2 Respiratory: Yes: Mechanically Ventilated Genitourinary: Yes: Caceres Present Musculoskeletal: Yes: Muscle Weakness Edema: No Neurological: Yes: Other (awake) Labs: CBC, BMP 08/25/19 07:24 08/25/19 07:24 INR, PTT INR 1.20 (0.83-1.09) H 08/21/19 11:30 Problem List - Problems (1) Hypernatremia Code(s): E87.0 - HYPEROSMOLALITY AND HYPERNATREMIA (2) Hypokalemia Code(s): E87.6 - HYPOKALEMIA (3) Acute respiratory failure with hypoxia Code(s): J96.01 - ACUTE RESPIRATORY FAILURE WITH HYPOXIA (4) Bacteremia Code(s): R78.81 - BACTEREMIA Assessment/Plan Current Medications Generic Name Dose Route Start Last Admin Trade Name Freq PRN Reason Stop Dose Admin Acetaminophen 650 mg 06/19/20 13:08 08/23/19 22:21 Tylenol - PO 650 mg Q6H PRN Administration Fever Or Pain Albuterol/Ipratropium 1 amp 08/16/19 13:19 08/23/19 15:20 Duoneb - NEB 1 amp Q6H PRN Administration SHORTNESS OF BREATH Amino Acids 30 ml 08/09/19 08:00 08/24/19 08:57 Prosource No Carb Liquid Pkt GT 30 ml BID@0800,1730 [facility] Administration Artificial Tears 1 drop 08/08/19 18:05 08/10/19 10:43 Artificial Tears OU 1 drop Q12H PRN Administration DRY EYES Ascorbic Acid 500 mg 08/09/19 10:00 08/24/19 09:10 Vitamin C Oral Solution - GT 500 mg DAILY [facility] Administration Carvedilol 6.25 mg 08/20/19 09:33 08/24/19 09:04 Coreg - PO 6.25 mg BID [facility] Administration Cholecalciferol 800 unit 08/09/19 10:00 08/24/19 09:10 Vitamin D3 - NR 800 unit DAILY [facility] Administration Enoxaparin Sodium 40 mg 08/15/19 10:00 08/24/19 09:04 Lovenox - SQ 40 mg DAILY [facility] Administration Dextrose/Sodium Chloride 1,000 mls @ 75 mls/hr 08/24/19 09:56 08/24/19 10:08 D5-1/2ns - IV 75 mls/hr ASDIR [facility]I Administration Lacosamide 200 mg 08/10/19 22:00 08/24/19 09:02 Vimpat Liquid - PO 200 mg BID [facility] Administration Levetiracetam 1,000 mg 08/10/19 22:00 08/24/19 09:03 Keppra Oral Solution - NGT 1,000 mg BID [facility] Administration Nystatin 500,000 units 08/08/19 18:05 Nystatin Oral Suspension - PO Q6HPO PRN ORAL PAIN/MOUTH SORES Nystatin 1 applic 08/21/19 11:15 08/24/19 09:05 Nystop Powder - TP 1 applic BID [facility] Administration Pantoprazole Sodium 40 mg 08/14/19 11:45 08/24/19 09:02 Protonix Iv IVPUSH 40 mg DAILY [facility] Administration Phenobarbital 60 mg 08/10/19 22:00 08/24/19 09:03 Phenobarbital Liquid - NGT 60 mg BID [facility] Administration Potassium Chloride 40 meq 08/08/19 22:00 08/24/19 09:02 Potassium Chloride Oral Liquid GT 40 meq BID [facility] Administration Quetiapine Fumarate 25 mg 08/18/19 10:45 08/24/19 09:06 Seroquel - PO 25 mg DAILY [facility] Administration Spironolactone 50 mg 08/21/19 10:00 08/24/19 09:04 Aldactone - GT 50 mg DAILY [facility] Administration Topiramate 200 mg 08/08/19 22:00 08/24/19 05:03 Topamax - GT 200 mg TID [facility] Administration Zinc Sulfate 220 mg 08/08/19 22:00 08/24/19 09:05 Orazinc - GT 220 mg BID [facility] Administration Impression 1. hypokalemia 2. hypernatremia 3. resp failure 4. fungemia 5. covid 19 infection 6. ards 7. developemental delay 8. epilepsy 9. bactermia 10. resp acidosis with compensatory met alk Plan - sodium is improving - repeat labs in am - monitor lytes - pt s/p g-tub - stop fluids once feeds started - vent support - repeat labs in am - monitor sodium
--- NOTE | 2019-08-25 15:40 | PN ---
Progress Note (short form) - Note Progress Note: remains afebrile gt now in use ngt is out Vital Signs Period Temp Pulse Resp BP Sys/Ortiz Pulse Ox Last 24 Hr 98.1 F-99.3 F 80-106 20-28 130-143/40-98 98-100 trach to vent cor-rrr lungs decreased bs at bases abd soft,nt +GT ext no edema CBC, BMP 08/25/19 07:24 08/25/19 07:24 Microbiology 08/20/19 20:20 Blood Culture - Preliminary Blood - Peripheral Venous NO GROWTH OBTAINED AFTER 96 HOURS, INCUBATION TO CONTINUE FOR 1 DAYS. 08/20/19 20:20 Blood Culture - Preliminary Blood - Peripheral Venous NO GROWTH OBTAINED AFTER 96 HOURS, INCUBATION TO CONTINUE FOR 1 DAYS. 08/21/19 03:17 AFB Smear Concentration - Final Sputum - Endotrachea Suction/Ventilator Mycobacterial Culture - Preliminary covid pcr negative (repeat) quantiferon negative strongyloides ab negative sputum afb negative imp/reccd chronic resp failure recurrent fevers-reculture if fevers persist- observe off antibiotics doubt preparation center coordinator infection given improving mental status repeat cultures if fever recurs resp failure s/p covid 19 ARDS/pneumonia- sputum MRSA Problem List - Problems (1) Suspected COVID-19 virus infection Code(s): R68.89 - OTHER GENERAL SYMPTOMS AND SIGNS (2) Acute respiratory failure with hypoxia Code(s): J96.01 - ACUTE RESPIRATORY FAILURE WITH HYPOXIA (3) Bacteremia Code(s): R78.81 - BACTEREMIA
[2019-08-26] MEDS: TOPIRAMATE 200 MG TABLET GT SCH ×3 (05:38→22:35)
[2019-08-26] MEDS: ACETAMINOPHEN 325 MG TABLET (FP) PO PRN ×2 (07:04→18:25)
[2019-08-26] MEDS ORDERED: PT OWN MED DRAWER 7, Y5N ONE ×3 (08:41→14:03)
[2019-08-26 08:51] LABS: BASO % 0.8 % (0-2.0); EOS % 7.9 % (0-4.5); HEMATOCRIT 31.7 % (35.4-49); HEMOGLOBIN 9.8 GM/dL (11.7-16.9); LYMPH % 26.2 % (8-40); MCH 27.8 pg (25.7-33.7); MEAN CELL VOLUME 89.8 fl (80-96); MEAN PLT VOLUME 11.7 fl (7.5-11.1); MONO % 6.6 % (3.8-10.2); NEUT % 58.5 % (42.8-82.8); PLATELET COUNT 352 K/MM3 (134-434); RBC 3.53 M/mm3 (4.00-5.60); RDW 17.3 % (11.9-15.9); WHITE BLOOD COUNT 10.9 K/mm3 (4.0-10.0)
[2019-08-26 09:06] LABS: ALBUMIN 2.7 g/dl (3.4-5.0); BILIRUBIN,TOTAL 0.2 mg/dL (0.2-1); BLOOD UREA NITROGEN 13.6 mg/dL (7-18); CREATININE 0.6 mg/dL (0.55-1.3); POTASSIUM 3.7 mmol/L (3.5-5.1); TOT PROT 6.5 g/dl (6.4-8.2)
[2019-08-26] MEDS: PHENobarbital 20 MG/5 ML UNIT-DOSE CUP NGT SCH ×2 (09:13→22:33)
[2019-08-26] MEDS: PANTOPRAZOLE SODIUM 40 MG VIAL IVPUSH SCH (09:13)
[2019-08-26] MEDS: ENOXAPARIN NA (PORCINE) 40 MG/0.4 ML DISP.SYRIN SQ SCH (09:13)
[2019-08-26] MEDS: AMINO ACIDS/PROTEIN HYDROLYS 30 ML LIQUID.PKT GT SCH ×2 (09:13→18:24)
[2019-08-26] MEDS: QUEtiapine FUMARATE 25 MG TABLET PO SCH (09:17)
[2019-08-26] MEDS: Lacosamide 50 MG/5 ML ORAL SOLUTION UNIT CUPS PO SCH ×2 (09:17→22:33)
[2019-08-26] MEDS: CARVEDILOL 6.25 MG TABLET (FP) PO SCH ×2 (09:18→22:28)
[2019-08-26] MEDS: levETIRAcetam 500 MG/5 ML ORAL SOLUTION (UNIT-DOSE CUPS) NGT SCH ×2 (09:18→22:32)
[2019-08-26] MEDS: NYSTATIN POWDER 100,000 UNITS/GM - 15 GM TOPICAL POWDER TP SCH ×2 (09:19→22:34)
[2019-08-26] MEDS: ZINC SULFATE 220 MG CAPSULE (FP) GT SCH ×2 (09:20→22:28)
[2019-08-26] MEDS: POTASSIUM CHLORIDE ORAL LIQUID 20 MEQ/15 ML GT SCH ×2 (09:20→22:30)
--- NOTE | 2019-08-26 09:39 | PN ---
Physical Exam: SUBJECTIVE: Patient seen and examined at bedside. NGT out. GT functioning well. OBJECTIVE: Vital Signs Period Temp Pulse Resp BP Sys/Ortiz Pulse Ox Last 24 Hr 98.1 F-101 F 90-114 22-33 126-154/84-95 100-100 Gen: trach in place, tachypnic, nonverbal; follows commands HEENT: NCAT, moist membranes Neck: trach in place Cardio: tachycardic, regular, no mrg noted Pulm: cta b/l Abd: Soft, nondistended. Percutaneous G tube in place. CDI Ext: no edema Laboratory Results - last 24 hr 08/21/19 08/25/19 08/26/19 23:55 07:24 08:00 WBC 10.9 H RBC 3.53 L Hgb 9.8 L Hct 31.7 L MCV 89.8 MCH 27.8 MCHC 31.0 L RDW 17.3 H Plt Count 372 352 MPV 11.7 H Absolute Neuts (auto) 6.4 Neutrophils % 58.5 Lymphocytes % 26.2 Monocytes % 6.6 Eosinophils % 7.9 H Basophils % 0.8 Nucleated RBC % 0 Platelet Estimate Normal Sodium Potassium Chloride Carbon Dioxide Anion Gap BUN Creatinine Est GFR (CKD-EPI)AfAm Est GFR (CKD-EPI)NonAf Random Glucose Calcium Total Bilirubin AST ALT Alkaline Phosphatase Total Protein Albumin COVID-19 ([facility]EROY) Not detected 08/26/19 08:00 WBC RBC Hgb Hct MCV MCH MCHC RDW Plt Count MPV Absolute Neuts (auto) Neutrophils % Lymphocytes % Monocytes % Eosinophils % Basophils % Nucleated RBC % Platelet Estimate Sodium 146 H Potassium 3.7 Chloride 116 H Carbon Dioxide 20 L Anion Gap 10 BUN 13.6 Creatinine 0.6 Est GFR (CKD-EPI)AfAm 147.82 Est GFR (CKD-EPI)NonAf 127.55 Random Glucose 105 Calcium 9.0 Total Bilirubin 0.2 AST 52 H ALT 116 H Alkaline Phosphatase 149 H Total Protein 6.5 Albumin 2.7 L COVID-19 ([facility]EROY) Active Medications Generic Name Dose Route Start Last Admin Trade Name Freq PRN Reason Stop Dose Admin Acetaminophen 650 mg 08/21/19 13:08 08/26/19 07:04 Tylenol - PO 650 mg Q6H PRN Administration Fever Or Pain Albuterol/Ipratropium 1 amp 08/16/19 13:19 08/23/19 15:20 Duoneb - NEB 1 amp Q6H PRN Administration SHORTNESS OF BREATH Amino Acids 30 ml 08/09/19 08:00 08/26/19 09:13 Prosource No Carb Liquid Pkt GT 30 ml BID@0800,1730 [facility] Administration Artificial Tears 1 drop 08/08/19 18:05 08/10/19 10:43 Artificial Tears OU 1 drop Q12H PRN Administration DRY EYES Ascorbic Acid 500 mg 08/09/19 10:00 08/25/19 13:18 Vitamin C Oral Solution - GT 500 mg DAILY [facility] Administration Carvedilol 6.25 mg 08/20/19 09:33 08/26/19 09:18 Coreg - PO 6.25 mg BID [facility] Administration Cholecalciferol 800 unit 08/09/19 10:00 08/25/19 09:12 Vitamin D3 - NR 800 unit DAILY [facility] Administration Enoxaparin Sodium 40 mg 08/15/19 10:00 08/26/19 09:13 Lovenox - SQ 40 mg DAILY [facility] Administration Lacosamide 200 mg 08/10/19 22:00 08/26/19 09:17 Vimpat Liquid - PO 200 mg BID [facility] Administration Levetiracetam 1,000 mg 08/10/19 22:00 08/26/19 09:18 Keppra Oral Solution - NGT 1,000 mg BID [facility] Administration Nystatin 500,000 units 08/08/19 18:05 Nystatin Oral Suspension - PO Q6HPO PRN ORAL PAIN/MOUTH SORES Nystatin 1 applic 08/21/19 11:15 08/26/19 09:19 Nystop Powder - TP 1 applic BID [facility] Administration Pantoprazole Sodium 40 mg 08/14/19 11:45 08/26/19 09:13 Protonix Iv IVPUSH 40 mg DAILY [facility] Administration Phenobarbital 60 mg 08/10/19 22:00 08/26/19 09:13 Phenobarbital Liquid - NGT 60 mg BID [facility] Administration Potassium Chloride 40 meq 08/08/19 22:00 08/26/19 09:20 Potassium Chloride Oral Liquid GT 40 meq BID [facility] Administration Quetiapine Fumarate 25 mg 08/18/19 10:45 08/26/19 09:17 Seroquel - PO 25 mg DAILY [facility] Administration Topiramate 200 mg 08/08/19 22:00 08/26/19 05:38 Topamax - GT 200 mg TID [facility] Administration Zinc Sulfate 220 mg 08/08/19 22:00 08/26/19 09:20 Orazinc - GT 220 mg BID [facility] Administration ASSESSMENT/PLAN: 39 y/o M with PMH Mental Retardation and epilepsy who presented to ED initially with SOB and hypoxia requiring intubation, admitted to hospital for hypoxic respiratory failure 2/2 to covid-19. Hospital course complicated by bacteremia, fungemia, MRSA PNA, now with recurrent fever. Acute Resp Failure 2/2 COVID-19 -s/p trach, convalescent plasma, tocilizumab -on AC vent settings. Weaning as tolerated -Pulm on board Sepsis. Febrile again today. Will reculture -persistent leukocytosis - improving today -recurrent fever/tachycardia with Bacteremia/fungemia -BCx (08/04/2019) pos for Staph capitis -BCx (07/12/2019) pos for fungi. Received cancidas -Echo 07/21/2019 did not reveal vegetations -sputum (07/21/2019) for AFB negative -strongyloides (08/19/2019) negative -Sputum Cx (08/21/2019) pos for MRSA. Dapto sensitive. -ID on board. F/u Recs. Presently observing off Abx -Nephro on board G-tube -placement confirmed -advance feeds Tachycardia -TFTs wnl -c/w Coreg -c/w low-dose seroquel to treat potential contribution of anxiety Transaminitis -likely 2/2 sepsis Epilepsy -c/w lorazepam prn, leviteracitam, phenobarbitol, lacosamide, topiramate DVT ppx -enoxaparin 40 Visit type - Emergency Visit Emergency Visit: No - New Patient This patient is new to me today: No - Critical Care Critical Care patient: No ATTENDING PHYSICIAN STATEMENT I saw and evaluated the patient. I reviewed the resident's note and discussed the case with the resident. I agree with the resident's findings and plan as documented. SUBJECTIVE: OBJECTIVE: ASSESSMENT AND PLAN:
[2019-08-26] MEDS: ASCORBIC ACID 500 MG/5 ML UNIT DOSE CUP GT SCH (11:26)
[2019-08-26] MEDS: CHOLECALCIFEROL (VIT D3) 400 UNIT (10 MCG) TABLET NR SCH (11:27)
--- NOTE | 2019-08-26 11:29 | PN ---
Progress Note (short form) - Note Progress Note: fever to 101 earlier today trach to vent opens eyes, moves left hand and both feet to command does not move right arm to command +clonus RUE Vital Signs Period Temp Pulse Resp BP Sys/Ortiz Pulse Ox Last 24 Hr 98.3 F-101 F 90-114 22-33 126-154/89-95 99-100 cor-rrr lungs decreased bs at bases abd soft, +GT ext no edema +anthony +rectal tube CBC, BMP 08/26/19 08:00 08/26/19 08:00 Microbiology 08/20/19 20:20 Blood - Peripheral Venous Blood Culture - Final NO GROWTH AFTER 5 DAYS INCUBATION 08/20/19 20:20 Blood - Peripheral Venous Blood Culture - Final NO GROWTH AFTER 5 DAYS INCUBATION covid pcr negative (repeat) quantiferon negative strongyloides ab negative sputum afb negative times 3 imp/reccd recurrent fever- repeat cultures, repeat cxray abn llfts and eosinophila persist- ?drug fever, check stool ova and parasites chronic resp failure doubt case hardener infection given 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
--- NOTE | 2019-08-26 12:30 | PN ---
Progress Note, Physician History of Present Illness: Pt seen and examined at bedside. He appears comfortable. - Current Medication List Current Medications: Active Medications Acetaminophen (Tylenol -) 650 mg PO Q6H PRN PRN Reason: Fever Or Pain Last Admin: 08/26/19 07:04 Dose: 650 mg Documented by: Albuterol/Ipratropium (Duoneb -) 1 amp NEB Q6H PRN PRN Reason: SHORTNESS OF BREATH Last Admin: 08/23/19 15:20 Dose: 1 amp Documented by: Amino Acids (Prosource No Carb Liquid Pkt) 30 ml GT BID@0800,1730 [facility] Last Admin: 08/26/19 09:13 Dose: 30 ml Documented by: Artificial Tears (Artificial Tears) 1 drop OU Q12H PRN PRN Reason: DRY EYES Last Admin: 08/10/19 10:43 Dose: 1 drop Documented by: Ascorbic Acid (Vitamin C Oral Solution -) 500 mg GT DAILY [facility] Last Admin: 08/26/19 11:26 Dose: 500 mg Documented by: Carvedilol (Coreg -) 6.25 mg PO BID [facility] Last Admin: 08/26/19 09:18 Dose: 6.25 mg Documented by: Cholecalciferol (Vitamin D3 -) 800 unit NR DAILY [facility] Last Admin: 08/26/19 11:27 Dose: 800 unit Documented by: Enoxaparin Sodium (Lovenox -) 40 mg SQ DAILY [facility] Last Admin: 08/26/19 09:13 Dose: 40 mg Documented by: Lacosamide (Vimpat Liquid -) 200 mg PO BID [facility] Last Admin: 08/26/19 09:17 Dose: 200 mg Documented by: Levetiracetam (Keppra Oral Solution -) 1,000 mg NGT BID [facility] Last Admin: 08/26/19 09:18 Dose: 1,000 mg Documented by: Nystatin (Nystatin Oral Suspension -) 500,000 units PO Q6HPO PRN PRN Reason: ORAL PAIN/MOUTH SORES Nystatin (Nystop Powder -) 1 applic TP BID [facility] Last Admin: 08/26/19 09:19 Dose: 1 applic Documented by: Pantoprazole Sodium (Protonix Iv) 40 mg IVPUSH DAILY [facility] Last Admin: 08/26/19 09:13 Dose: 40 mg Documented by: Phenobarbital (Phenobarbital Liquid -) 60 mg NGT BID [facility] Last Admin: 08/26/19 09:13 Dose: 60 mg Documented by: Potassium Chloride (Potassium Chloride Oral Liquid) 40 meq GT BID [facility] Last Admin: 08/26/19 09:20 Dose: 40 meq Documented by: Quetiapine Fumarate (Seroquel -) 25 mg PO DAILY [facility] Last Admin: 08/26/19 09:17 Dose: 25 mg Documented by: Topiramate (Topamax -) 200 mg GT TID [facility] Last Admin: 08/26/19 05:38 Dose: 200 mg Documented by: Zinc Sulfate (Orazinc -) 220 mg GT BID [facility] Last Admin: 08/26/19 09:20 Dose: 220 mg Documented by: - Objective Vital Signs: Vital Signs Temperature 101 F H 08/26/19 05:00 Pulse Rate 101 H 08/26/19 10:00 Respiratory Rate 29 H 08/26/19 10:00 Blood Pressure 152/90 08/26/19 05:00 O2 Sat by Pulse Oximetry (%) 99 08/26/19 10:00 Constitutional: Yes: Calm Eyes: Yes: Conjunctiva Clear HENT: Yes: Atraumatic Cardiovascular: Yes: S1, S2 Respiratory: Yes: Mechanically Ventilated Gastrointestinal: Yes: Soft Genitourinary: Yes: Incontinence Edema: No Neurological: Yes: Other (awake) Labs: CBC, BMP 08/26/19 08:00 08/26/19 08:00 INR, PTT INR 1.20 (0.83-1.09) H 08/21/19 11:30 Problem List - Problems (1) Hypernatremia Code(s): E87.0 - HYPEROSMOLALITY AND HYPERNATREMIA (2) Hypokalemia Code(s): E87.6 - HYPOKALEMIA (3) Acute respiratory failure with hypoxia Code(s): J96.01 - ACUTE RESPIRATORY FAILURE WITH HYPOXIA (4) Bacteremia Code(s): R78.81 - BACTEREMIA Assessment/Plan Current Medications Generic Name Dose Route Start Last Admin Trade Name Freq PRN Reason Stop Dose Admin Acetaminophen 650 mg 08/21/19 13:08 08/26/19 07:04 Tylenol - PO 650 mg Q6H PRN Administration Fever Or Pain Albuterol/Ipratropium 1 amp 08/16/19 13:19 08/23/19 15:20 Duoneb - NEB 1 amp Q6H PRN Administration SHORTNESS OF BREATH Amino Acids 30 ml 08/09/19 08:00 08/26/19 09:13 Prosource No Carb Liquid Pkt GT 30 ml BID@0800,1730 [facility] Administration Artificial Tears 1 drop 08/08/19 18:05 08/10/19 10:43 Artificial Tears OU 1 drop Q12H PRN Administration DRY EYES Ascorbic Acid 500 mg 08/09/19 10:00 08/26/19 11:26 Vitamin C Oral Solution - GT 500 mg DAILY [facility] Administration Carvedilol 6.25 mg 08/20/19 09:33 08/26/19 09:18 Coreg - PO 6.25 mg BID [facility] Administration Cholecalciferol 800 unit 08/09/19 10:00 08/26/19 11:27 Vitamin D3 - NR 800 unit DAILY [facility] Administration Enoxaparin Sodium 40 mg 08/15/19 10:00 08/26/19 09:13 Lovenox - SQ 40 mg DAILY [facility] Administration Lacosamide 200 mg 08/10/19 22:00 08/26/19 09:17 Vimpat Liquid - PO 200 mg BID [facility] Administration Levetiracetam 1,000 mg 08/10/19 22:00 08/26/19 09:18 Keppra Oral Solution - NGT 1,000 mg BID [facility] Administration Nystatin 500,000 units 08/08/19 18:05 Nystatin Oral Suspension - PO Q6HPO PRN ORAL PAIN/MOUTH SORES Nystatin 1 applic 08/21/19 11:15 08/26/19 09:19 Nystop Powder - TP 1 applic BID [facility] Administration Pantoprazole Sodium 40 mg 08/14/19 11:45 08/26/19 09:13 Protonix Iv IVPUSH 40 mg DAILY [facility] Administration Phenobarbital 60 mg 08/10/19 22:00 08/26/19 09:13 Phenobarbital Liquid - NGT 60 mg BID [facility] Administration Potassium Chloride 40 meq 08/08/19 22:00 08/26/19 09:20 Potassium Chloride Oral Liquid GT 40 meq BID [facility] Administration Quetiapine Fumarate 25 mg 08/18/19 10:45 08/26/19 09:17 Seroquel - PO 25 mg DAILY [facility] Administration Topiramate 200 mg 08/08/19 22:00 08/26/19 05:38 Topamax - GT 200 mg TID [facility] Administration Zinc Sulfate 220 mg 08/08/19 22:00 08/26/19 09:20 Orazinc - GT 220 mg BID [facility] Administration Impression 1. hypokalemia 2. hypernatremia 3. resp failure 4. fungemia 5. covid 19 infection 6. ards 7. developemental delay 8. epilepsy 9. bactermia 10. resp acidosis with compensatory met alk Plan - cont feeds - monitor off of fluids - sodium improving - diuretics on hold - monitor volume status - vent support
--- NOTE | 2019-08-26 13:12 | PN ---
Progress Note (short form) - Note Progress Note: NAD on AC Mode of vent. Fever overnight. PPLat: 23 No acute events overnight. OBJECTIVE: Intake & Output 08/23/19 08/24/19 08/25/19 08/26/19 23:59 23:59 23:59 23:59 Intake Total 350 1050 2330 1100 Output Total 925 1300 1525 600 Balance -575 -250 805 500 Weight 200 lb 211 lb 0.992 oz Last Vital Signs Temp Pulse Resp BP Pulse Ox 101 F H 101 H 29 H 152/90 99 08/26/19 05:00 08/26/19 10:00 08/26/19 10:00 08/26/19 05:00 08/26/19 10:00 Active Medications Acetaminophen (Tylenol -) 650 mg PO Q6H PRN PRN Reason: Fever Or Pain Last Admin: 08/26/19 07:04 Dose: 650 mg Documented by: Albuterol/Ipratropium (Duoneb -) 1 amp NEB Q6H PRN PRN Reason: SHORTNESS OF BREATH Last Admin: 08/23/19 15:20 Dose: 1 amp Documented by: Amino Acids (Prosource No Carb Liquid Pkt) 30 ml GT BID@0800,1730 [facility] Last Admin: 08/26/19 09:13 Dose: 30 ml Documented by: Artificial Tears (Artificial Tears) 1 drop OU Q12H PRN PRN Reason: DRY EYES Last Admin: 08/10/19 10:43 Dose: 1 drop Documented by: Ascorbic Acid (Vitamin C Oral Solution -) 500 mg GT DAILY [facility] Last Admin: 08/26/19 11:26 Dose: 500 mg Documented by: Carvedilol (Coreg -) 6.25 mg PO BID [facility] Last Admin: 08/26/19 09:18 Dose: 6.25 mg Documented by: Cholecalciferol (Vitamin D3 -) 800 unit NR DAILY [facility] Last Admin: 08/26/19 11:27 Dose: 800 unit Documented by: Enoxaparin Sodium (Lovenox -) 40 mg SQ DAILY [facility] Last Admin: 08/26/19 09:13 Dose: 40 mg Documented by: Lacosamide (Vimpat Liquid -) 200 mg PO BID [facility] Last Admin: 08/26/19 09:17 Dose: 200 mg Documented by: Levetiracetam (Keppra Oral Solution -) 1,000 mg NGT BID [facility] Last Admin: 08/26/19 09:18 Dose: 1,000 mg Documented by: Nystatin (Nystatin Oral Suspension -) 500,000 units PO Q6HPO PRN PRN Reason: ORAL PAIN/MOUTH SORES Nystatin (Nystop Powder -) 1 applic TP BID [facility] Last Admin: 08/26/19 09:19 Dose: 1 applic Documented by: Pantoprazole Sodium (Protonix Iv) 40 mg IVPUSH DAILY [facility] Last Admin: 08/26/19 09:13 Dose: 40 mg Documented by: Phenobarbital (Phenobarbital Liquid -) 60 mg NGT BID [facility] Last Admin: 08/26/19 09:13 Dose: 60 mg Documented by: Potassium Chloride (Potassium Chloride Oral Liquid) 40 meq GT BID [facility] Last Admin: 08/26/19 09:20 Dose: 40 meq Documented by: Quetiapine Fumarate (Seroquel -) 25 mg PO DAILY [facility] Last Admin: 08/26/19 09:17 Dose: 25 mg Documented by: Topiramate (Topamax -) 200 mg GT TID [facility] Last Admin: 08/26/19 05:38 Dose: 200 mg Documented by: Zinc Sulfate (Orazinc -) 220 mg GT BID [facility] Last Admin: 08/26/19 09:20 Dose: 220 mg Documented by: Gen: trached, awake Heart: RRR Lung: decreased breath sounds at the bases Abd: soft, nontender Ext: + edema Laboratory Results - last 24 hr 08/26/19 08/26/19 08:00 08:00 WBC 10.9 H RBC 3.53 L Hgb 9.8 L Hct 31.7 L MCV 89.8 MCH 27.8 MCHC 31.0 L RDW 17.3 H Plt Count 352 MPV 11.7 H Absolute Neuts (auto) 6.4 Neutrophils % 58.5 Lymphocytes % 26.2 Monocytes % 6.6 Eosinophils % 7.9 H Basophils % 0.8 Nucleated RBC % 0 Sodium 146 H Potassium 3.7 Chloride 116 H Carbon Dioxide 20 L Anion Gap 10 BUN 13.6 Creatinine 0.6 Est GFR (CKD-EPI)AfAm 147.82 Est GFR (CKD-EPI)NonAf 127.55 Random Glucose 105 Calcium 9.0 Total Bilirubin 0.2 AST 52 H ALT 116 H Alkaline Phosphatase 149 H Total Protein 6.5 Albumin 2.7 L ASSESSMENT AND PLAN: Acute Hypoxic and Hypercapneic Respiratory Failure COVID19 Pneumonia E Coli Pneumonia Fungenmia Bacteremia Septic Shock Seizure Disorder Mental Retardation - AC Mode of vent - Off ABX per ID - continue antiepileptics - monitor urine output, creatinine - low tidal volume ventilation - titrate FiO2, PEEP to keep SpO2 >90% - spontaeneous breathing trials as tolerated - enteral feeds: PEG insertion once stable - DVT/GI prophylaxis Dr Callaway
[2019-08-26] MEDS: ALBUTEROL SO4 2.5/IPRATROPIUM 0.5 INH SOL 3 ML VIAL.NEB. NEB PRN (20:15)
[2019-08-27] MEDS: ACETAMINOPHEN 325 MG TABLET (FP) PO PRN (03:09)
[2019-08-27] MEDS: ALBUTEROL SO4 2.5/IPRATROPIUM 0.5 INH SOL 3 ML VIAL.NEB. NEB PRN (04:30)
[2019-08-27] MEDS: TOPIRAMATE 200 MG TABLET GT SCH ×3 (06:11→23:29)
[2019-08-27 08:24] LABS: BASO % 0.7 % (0-2.0); EOS % 6.6 % (0-4.5); HEMATOCRIT 29.4 % (35.4-49); HEMOGLOBIN 9.3 GM/dL (11.7-16.9); LYMPH % 31.2 % (8-40); MCHC 31.8 g/dl (32.0-35.9); MEAN CELL VOLUME 88.2 fl (80-96); MEAN PLT VOLUME 10.9 fl (7.5-11.1); MONO % 7.2 % (3.8-10.2); NEUT % 54.3 % (42.8-82.8); PLATELET COUNT 299 K/MM3 (134-434); RBC 3.33 M/mm3 (4.00-5.60); RDW 17.3 % (11.9-15.9); WHITE BLOOD COUNT 9.9 K/mm3 (4.0-10.0)
[2019-08-27 08:47] LABS: ALBUMIN 2.7 g/dl (3.4-5.0); BILIRUBIN,TOTAL 0.5 mg/dL (0.2-1); BLOOD UREA NITROGEN 14.5 mg/dL (7-18); CALCIUM 8.8 mg/dL (8.5-10.1); CREATININE 0.4 mg/dL (0.55-1.3); POTASSIUM 3.7 mmol/L (3.5-5.1)
[2019-08-27] MEDS: AMINO ACIDS/PROTEIN HYDROLYS 30 ML LIQUID.PKT GT SCH ×2 (09:00→17:28)
[2019-08-27] MEDS ORDERED: PT OWN MED DRAWER 7, Y5N ONE ×3 (10:23→15:43)
[2019-08-27] MEDS: ENOXAPARIN NA (PORCINE) 40 MG/0.4 ML DISP.SYRIN SQ SCH (10:40)
[2019-08-27] MEDS: ZINC SULFATE 220 MG CAPSULE (FP) GT SCH ×2 (10:41→23:29)
[2019-08-27] MEDS: NYSTATIN POWDER 100,000 UNITS/GM - 15 GM TOPICAL POWDER TP SCH ×2 (10:41→23:29)
[2019-08-27] MEDS: levETIRAcetam 500 MG/5 ML ORAL SOLUTION (UNIT-DOSE CUPS) NGT SCH ×2 (10:41→23:28)
[2019-08-27] MEDS: CARVEDILOL 6.25 MG TABLET (FP) PO SCH ×2 (10:41→23:29)
[2019-08-27] MEDS: Lacosamide 50 MG/5 ML ORAL SOLUTION UNIT CUPS PO SCH ×2 (10:42→23:28)
[2019-08-27] MEDS: QUEtiapine FUMARATE 25 MG TABLET PO SCH (10:43)
[2019-08-27] MEDS: PANTOPRAZOLE SODIUM 40 MG VIAL IVPUSH SCH (10:43)
[2019-08-27] MEDS: CHOLECALCIFEROL (VIT D3) 400 UNIT (10 MCG) TABLET NR SCH (10:43)
[2019-08-27] MEDS: ASCORBIC ACID 500 MG/5 ML UNIT DOSE CUP GT SCH (10:43)
[2019-08-27] MEDS: POTASSIUM CHLORIDE ORAL LIQUID 20 MEQ/15 ML GT SCH ×2 (10:44→23:28)
[2019-08-27] MEDS: PHENobarbital 20 MG/5 ML UNIT-DOSE CUP NGT SCH ×2 (10:45→23:28)
--- NOTE | 2019-08-27 11:27 | PN ---
Physical Exam: SUBJECTIVE: Patient seen and examined at bedside. Seems more alert today OBJECTIVE: Vital Signs Period Temp Pulse Resp BP Sys/Ortiz Pulse Ox Last 24 Hr 99 F-101.3 F 93-116 24-36 134-142/80-94 100-100 Gen: trach in place, tachypnic, nonverbal; follows commands HEENT: NCAT, moist membranes Neck: trach in place Cardio: tachycardic, regular, no mrg noted Pulm: cta b/l Abd: Soft, nondistended. Percutaneous G tube in place. CDI Ext: no edema Laboratory Results - last 24 hr 08/27/19 08/27/19 07:20 07:20 WBC 9.9 RBC 3.33 L Hgb 9.3 L Hct 29.4 L MCV 88.2 MCH 28.0 MCHC 31.8 L RDW 17.3 H Plt Count 299 MPV 10.9 Absolute Neuts (auto) 5.4 Neutrophils % 54.3 Lymphocytes % 31.2 Monocytes % 7.2 Eosinophils % 6.6 H Basophils % 0.7 Nucleated RBC % 0 Sodium 144 Potassium 3.7 Chloride 114 H Carbon Dioxide 22 Anion Gap 8 BUN 14.5 Creatinine 0.4 L Est GFR (CKD-EPI)AfAm 174.63 Est GFR (CKD-EPI)NonAf 150.67 Random Glucose 97 Calcium 8.8 Total Bilirubin 0.5 AST 46 H ALT 103 H Alkaline Phosphatase 143 H Total Protein 6.0 L Albumin 2.7 L Active Medications Generic Name Dose Route Start Last Admin Trade Name Freq PRN Reason Stop Dose Admin Acetaminophen 650 mg 08/21/19 13:08 08/27/19 03:09 Tylenol - PO 650 mg Q6H PRN Administration Fever Or Pain Albuterol/Ipratropium 1 amp 08/16/19 13:19 08/27/19 04:30 Duoneb - NEB 1 amp Q6H PRN Administration SHORTNESS OF BREATH Amino Acids 30 ml 08/09/19 08:00 08/27/19 09:00 Prosource No Carb Liquid Pkt GT 30 ml BID@0800,1730 TIKI Administration Artificial Tears 1 drop 08/08/19 18:05 08/10/19 10:43 Artificial Tears OU 1 drop Q12H PRN Administration DRY EYES Ascorbic Acid 500 mg 08/09/19 10:00 08/27/19 10:43 Vitamin C Oral Solution - GT 500 mg DAILY TIKI Administration Carvedilol 6.25 mg 08/20/19 09:33 08/27/19 10:41 Coreg - PO 6.25 mg BID TIKI Administration Cholecalciferol 800 unit 08/09/19 10:00 08/27/19 10:43 Vitamin D3 - NR 800 unit DAILY TIKI Administration Enoxaparin Sodium 40 mg 08/15/19 10:00 08/27/19 10:40 Lovenox - SQ 40 mg DAILY TIKI Administration Lacosamide 200 mg 08/10/19 22:00 08/27/19 10:42 Vimpat Liquid - PO 200 mg BID TIKI Administration Levetiracetam 1,000 mg 08/10/19 22:00 08/27/19 10:41 Keppra Oral Solution - NGT 1,000 mg BID TIKI Administration Nystatin 500,000 units 08/08/19 18:05 Nystatin Oral Suspension - PO Q6HPO PRN ORAL PAIN/MOUTH SORES Nystatin 1 applic 08/21/19 11:15 08/27/19 10:41 Nystop Powder - TP 1 applic BID TIKI Administration Pantoprazole Sodium 40 mg 08/14/19 11:45 08/27/19 10:43 Protonix Iv IVPUSH 40 mg DAILY TIKI Administration Phenobarbital 60 mg 08/10/19 22:00 08/27/19 10:45 Phenobarbital Liquid - NGT 60 mg BID TIKI Administration Potassium Chloride 40 meq 08/08/19 22:00 08/27/19 10:44 Potassium Chloride Oral Liquid GT 40 meq BID TIKI Administration Quetiapine Fumarate 25 mg 08/18/19 10:45 08/27/19 10:43 Seroquel - PO 25 mg DAILY TIKI Administration Topiramate 200 mg 08/08/19 22:00 08/27/19 06:11 Topamax - GT 200 mg TID TIKI Administration Zinc Sulfate 220 mg 08/08/19 22:00 08/27/19 10:41 Orazinc - GT 220 mg BID TIKI Administration ASSESSMENT/PLAN: 39 y/o M with PMH Mental Retardation and epilepsy who presented to ED initially with SOB and hypoxia requiring intubation, admitted to hospital for hypoxic respiratory failure 2/2 to covid-19. Hospital course complicated by bacteremia, fungemia, MRSA PNA, now with recurrent fever. Acute Resp Failure 2/2 COVID-19 -s/p trach, convalescent plasma, tocilizumab -on AC vent settings. Weaning as tolerated -Pulm on board Sepsis. Febrile this morning -persistent leukocytosis - improved -recurrent fever/tachycardia with Bacteremia/fungemia -BCx (08/04/2019) pos for Staph capitis -BCx (07/12/2019) pos for fungi. Received cancidas -Echo 07/21/2019 did not reveal vegetations -sputum (07/21/2019) for AFB negative -strongyloides (08/19/2019) negative -Sputum Cx (08/21/2019) pos for MRSA. Dapto sensitive. -ID on board. F/u Recs. Presently observing off Abx -Nephro on board Tachycardia -TFTs wnl -c/w Coreg -c/w low-dose seroquel to treat potential contribution of anxiety Transaminitis -likely 2/2 sepsis Epilepsy -c/w lorazepam prn, leviteracitam, phenobarbitol, lacosamide, topiramate DVT ppx -enoxaparin 40 Visit type - Emergency Visit Emergency Visit: No - New Patient This patient is new to me today: No - Critical Care Critical Care patient: No ATTENDING PHYSICIAN STATEMENT I saw and evaluated the patient. I reviewed the resident's note and discussed the case with the resident. I agree with the resident's findings and plan as documented. SUBJECTIVE: OBJECTIVE: ASSESSMENT AND PLAN:
--- NOTE | 2019-08-27 14:05 | PN ---
Progress Note, Physician History of Present Illness: Pt seen and examined at bedside. He is awake but not very interactive. - Current Medication List Current Medications: Active Medications Acetaminophen (Tylenol -) 650 mg PO Q6H PRN PRN Reason: Fever Or Pain Last Admin: 08/27/19 03:09 Dose: 650 mg Documented by: Albuterol/Ipratropium (Duoneb -) 1 amp NEB Q6H PRN PRN Reason: SHORTNESS OF BREATH Last Admin: 08/27/19 04:30 Dose: 1 amp Documented by: Amino Acids (Prosource No Carb Liquid Pkt) 30 ml GT BID@0800,1730 [facility] Last Admin: 08/27/19 09:00 Dose: 30 ml Documented by: Artificial Tears (Artificial Tears) 1 drop OU Q12H PRN PRN Reason: DRY EYES Last Admin: 08/10/19 10:43 Dose: 1 drop Documented by: Ascorbic Acid (Vitamin C Oral Solution -) 500 mg GT DAILY [facility] Last Admin: 08/27/19 10:43 Dose: 500 mg Documented by: Carvedilol (Coreg -) 6.25 mg PO BID [facility] Last Admin: 08/27/19 10:41 Dose: 6.25 mg Documented by: Cholecalciferol (Vitamin D3 -) 800 unit NR DAILY [facility] Last Admin: 08/27/19 10:43 Dose: 800 unit Documented by: Enoxaparin Sodium (Lovenox -) 40 mg SQ DAILY [facility] Last Admin: 08/27/19 10:40 Dose: 40 mg Documented by: Lacosamide (Vimpat Liquid -) 200 mg PO BID [facility] Last Admin: 08/27/19 10:42 Dose: 200 mg Documented by: Levetiracetam (Keppra Oral Solution -) 1,000 mg NGT BID [facility] Last Admin: 08/27/19 10:41 Dose: 1,000 mg Documented by: Nystatin (Nystatin Oral Suspension -) 500,000 units PO Q6HPO PRN PRN Reason: ORAL PAIN/MOUTH SORES Nystatin (Nystop Powder -) 1 applic TP BID [facility] Last Admin: 08/27/19 10:41 Dose: 1 applic Documented by: Pantoprazole Sodium (Protonix Iv) 40 mg IVPUSH DAILY [facility] Last Admin: 08/27/19 10:43 Dose: 40 mg Documented by: Phenobarbital (Phenobarbital Liquid -) 60 mg NGT BID [facility] Last Admin: 08/27/19 10:45 Dose: 60 mg Documented by: Potassium Chloride (Potassium Chloride Oral Liquid) 40 meq GT BID [facility] Last Admin: 08/27/19 10:44 Dose: 40 meq Documented by: Quetiapine Fumarate (Seroquel -) 25 mg PO DAILY [facility] Last Admin: 08/27/19 10:43 Dose: 25 mg Documented by: Topiramate (Topamax -) 200 mg GT TID [facility] Last Admin: 08/27/19 06:11 Dose: 200 mg Documented by: Zinc Sulfate (Orazinc -) 220 mg GT BID [facility] Last Admin: 08/27/19 10:41 Dose: 220 mg Documented by: - Objective Vital Signs: Vital Signs Temperature 99 F 08/27/19 10:38 Pulse Rate 93 H 08/27/19 10:38 Respiratory Rate 30 H 08/27/19 12:05 Blood Pressure 140/86 08/27/19 10:38 O2 Sat by Pulse Oximetry (%) 100 08/27/19 12:05 Constitutional: Yes: Calm Eyes: Yes: Conjunctiva Clear HENT: Yes: Atraumatic Neck: Yes: Supple Cardiovascular: Yes: S1, S2 Respiratory: Yes: Mechanically Ventilated Gastrointestinal: Yes: Soft Genitourinary: Yes: Incontinence Edema: No Neurological: Yes: Other (awake) Labs: CBC, BMP 08/27/19 07:20 08/27/19 07:20 INR, PTT INR 1.20 (0.83-1.09) H 08/21/19 11:30 Problem List - Problems (1) Hypernatremia Code(s): E87.0 - HYPEROSMOLALITY AND HYPERNATREMIA (2) Hypokalemia Code(s): E87.6 - HYPOKALEMIA (3) Acute respiratory failure with hypoxia Code(s): J96.01 - ACUTE RESPIRATORY FAILURE WITH HYPOXIA (4) Bacteremia Code(s): R78.81 - BACTEREMIA Assessment/Plan Current Medications Generic Name Dose Route Start Last Admin Trade Name Freq PRN Reason Stop Dose Admin Acetaminophen 650 mg 08/21/19 13:08 08/27/19 03:09 Tylenol - PO 650 mg Q6H PRN Administration Fever Or Pain Albuterol/Ipratropium 1 amp 08/16/19 13:19 08/27/19 04:30 Duoneb - NEB 1 amp Q6H PRN Administration SHORTNESS OF BREATH Amino Acids 30 ml 08/09/19 08:00 08/27/19 09:00 Prosource No Carb Liquid Pkt GT 30 ml BID@0800,1730 TIKI Administration Artificial Tears 1 drop 08/08/19 18:05 08/10/19 10:43 Artificial Tears OU 1 drop Q12H PRN Administration DRY EYES Ascorbic Acid 500 mg 08/09/19 10:00 08/27/19 10:43 Vitamin C Oral Solution - GT 500 mg DAILY TIKI Administration Carvedilol 6.25 mg 08/20/19 09:33 08/27/19 10:41 Coreg - PO 6.25 mg BID TIKI Administration Cholecalciferol 800 unit 08/09/19 10:00 08/27/19 10:43 Vitamin D3 - NR 800 unit DAILY TIKI Administration Enoxaparin Sodium 40 mg 08/15/19 10:00 08/27/19 10:40 Lovenox - SQ 40 mg DAILY TIKI Administration Lacosamide 200 mg 08/10/19 22:00 08/27/19 10:42 Vimpat Liquid - PO 200 mg BID TIKI Administration Levetiracetam 1,000 mg 08/10/19 22:00 08/27/19 10:41 Keppra Oral Solution - NGT 1,000 mg BID TIKI Administration Nystatin 500,000 units 08/08/19 18:05 Nystatin Oral Suspension - PO Q6HPO PRN ORAL PAIN/MOUTH SORES Nystatin 1 applic 08/21/19 11:15 08/27/19 10:41 Nystop Powder - TP 1 applic BID TIKI Administration Pantoprazole Sodium 40 mg 08/14/19 11:45 08/27/19 10:43 Protonix Iv IVPUSH 40 mg DAILY TIKI Administration Phenobarbital 60 mg 08/10/19 22:00 08/27/19 10:45 Phenobarbital Liquid - NGT 60 mg BID TIKI Administration Potassium Chloride 40 meq 08/08/19 22:00 08/27/19 10:44 Potassium Chloride Oral Liquid GT 40 meq BID TIKI Administration Quetiapine Fumarate 25 mg 08/18/19 10:45 08/27/19 10:43 Seroquel - PO 25 mg DAILY TIKI Administration Topiramate 200 mg 08/08/19 22:00 08/27/19 06:11 Topamax - GT 200 mg TID TIKI Administration Zinc Sulfate 220 mg 08/08/19 22:00 08/27/19 10:41 Orazinc - GT 220 mg BID TIKI Administration Impression 1. hypokalemia 2. hypernatremia 3. resp failure 4. fungemia 5. covid 19 infection 6. ards 7. developemental delay 8. epilepsy 9. bactermia 10. resp acidosis with compensatory met alk Plan - sodium improving - monitor lytes - appears stable off of diuretics - weaning per pulmonary - repeat labs in am - adjust free water in feeds depending on sodium results - avoid overload - vent support
--- NOTE | 2019-08-27 14:18 | PN ---
Progress Note (short form) - Note Progress Note: NAD on AC Mode of vent. Intermittent fever. PPLat: 22 No acute events overnight. OBJECTIVE: Intake & Output 08/24/19 08/25/19 08/26/19 08/27/19 23:59 23:59 23:59 23:59 Intake Total 1050 2330 2640 Output Total 1300 1525 1100 400 Balance -649 686 1372 -400 Weight 211 lb 0.992 oz Last Vital Signs Temp Pulse Resp BP Pulse Ox 99 F 93 H 30 H 140/86 100 08/27/19 10:38 08/27/19 10:38 08/27/19 12:05 08/27/19 10:38 08/27/19 12:05 Active Medications Acetaminophen (Tylenol -) 650 mg PO Q6H PRN PRN Reason: Fever Or Pain Last Admin: 08/27/19 03:09 Dose: 650 mg Documented by: Albuterol/Ipratropium (Duoneb -) 1 amp NEB Q6H PRN PRN Reason: SHORTNESS OF BREATH Last Admin: 08/27/19 04:30 Dose: 1 amp Documented by: Amino Acids (Prosource No Carb Liquid Pkt) 30 ml GT BID@0800,1730 [facility] Last Admin: 08/27/19 09:00 Dose: 30 ml Documented by: Artificial Tears (Artificial Tears) 1 drop OU Q12H PRN PRN Reason: DRY EYES Last Admin: 08/10/19 10:43 Dose: 1 drop Documented by: Ascorbic Acid (Vitamin C Oral Solution -) 500 mg GT DAILY [facility] Last Admin: 08/27/19 10:43 Dose: 500 mg Documented by: Carvedilol (Coreg -) 6.25 mg PO BID [facility] Last Admin: 08/27/19 10:41 Dose: 6.25 mg Documented by: Cholecalciferol (Vitamin D3 -) 800 unit NR DAILY [facility] Last Admin: 08/27/19 10:43 Dose: 800 unit Documented by: Enoxaparin Sodium (Lovenox -) 40 mg SQ DAILY [facility] Last Admin: 08/27/19 10:40 Dose: 40 mg Documented by: Lacosamide (Vimpat Liquid -) 200 mg PO BID [facility] Last Admin: 08/27/19 10:42 Dose: 200 mg Documented by: Levetiracetam (Keppra Oral Solution -) 1,000 mg NGT BID [facility] Last Admin: 08/27/19 10:41 Dose: 1,000 mg Documented by: Nystatin (Nystatin Oral Suspension -) 500,000 units PO Q6HPO PRN PRN Reason: ORAL PAIN/MOUTH SORES Nystatin (Nystop Powder -) 1 applic TP BID [facility] Last Admin: 08/27/19 10:41 Dose: 1 applic Documented by: Pantoprazole Sodium (Protonix Iv) 40 mg IVPUSH DAILY [facility] Last Admin: 08/27/19 10:43 Dose: 40 mg Documented by: Phenobarbital (Phenobarbital Liquid -) 60 mg NGT BID [facility] Last Admin: 08/27/19 10:45 Dose: 60 mg Documented by: Potassium Chloride (Potassium Chloride Oral Liquid) 40 meq GT BID [facility] Last Admin: 08/27/19 10:44 Dose: 40 meq Documented by: Quetiapine Fumarate (Seroquel -) 25 mg PO DAILY [facility] Last Admin: 08/27/19 10:43 Dose: 25 mg Documented by: Topiramate (Topamax -) 200 mg GT TID [facility] Last Admin: 08/27/19 06:11 Dose: 200 mg Documented by: Zinc Sulfate (Orazinc -) 220 mg GT BID [facility] Last Admin: 08/27/19 10:41 Dose: 220 mg Documented by: Gen: trached & vented, awake Heart: RRR Lung: decreased breath sounds at the bases Abd: soft, nontender Ext: + edema Laboratory Results - last 24 hr 08/27/19 08/27/19 07:20 07:20 WBC 9.9 RBC 3.33 L Hgb 9.3 L Hct 29.4 L MCV 88.2 MCH 28.0 MCHC 31.8 L RDW 17.3 H Plt Count 299 MPV 10.9 Absolute Neuts (auto) 5.4 Neutrophils % 54.3 Lymphocytes % 31.2 Monocytes % 7.2 Eosinophils % 6.6 H Basophils % 0.7 Nucleated RBC % 0 Sodium 144 Potassium 3.7 Chloride 114 H Carbon Dioxide 22 Anion Gap 8 BUN 14.5 Creatinine 0.4 L Est GFR (CKD-EPI)AfAm 174.63 Est GFR (CKD-EPI)NonAf 150.67 Random Glucose 97 Calcium 8.8 Total Bilirubin 0.5 AST 46 H ALT 103 H Alkaline Phosphatase 143 H Total Protein 6.0 L Albumin 2.7 L ASSESSMENT AND PLAN: Acute Hypoxic and Hypercapneic Respiratory Failure COVID19 Pneumonia E Coli Pneumonia Fungenmia Bacteremia Septic Shock Seizure Disorder Mental Retardation - AC Mode of vent - Off ABX per ID - continue antiepileptics - monitor urine output, creatinine - low tidal volume ventilation - titrate FiO2, PEEP to keep SpO2 >90% - spontaeneous breathing trials as tolerated - enteral feeds: PEG insertion once stable - DVT/GI prophylaxis Dr Callaway
--- NOTE | 2019-08-27 14:26 | PN ---
Progress Note (short form) - Note Progress Note: intermittent fevers visited with sister yesterday- apparently a good visit Vital Signs Period Temp Pulse Resp BP Sys/Ortiz Pulse Ox Last 24 Hr 99 F-101.3 F 93-116 24-36 134-142/80-94 100-100 trach to vent cor-rrr lungs clear abd soft,nt +GT ext no edema CBC, BMP 08/27/19 07:20 08/27/19 07:20 Microbiology 08/26/19 11:05 Blood - Peripheral Venous Blood Culture - Preliminary NO GROWTH OBTAINED AFTER 24 HOURS, INCUBATION TO CONTINUE FOR 4 DAYS. 08/26/19 11:05 Blood - Peripheral Venous Blood Culture - Preliminary NO GROWTH OBTAINED AFTER 24 HOURS, INCUBATION TO CONTINUE FOR 4 DAYS. 08/26/19 22:15 Stool Cryptosporidium Antigen - Final 08/26/19 22:15 Stool Giardia Antigen (JASSON) - Final 08/26/19 12:10 Urine - Urine Caceres Legionella Antigen - Final 08/26/19 12:10 Urine - Urine Caceres Streptococcus pneumoniae Antigen (M - Final 08/20/19 20:20 Blood - Peripheral Venous Blood Culture - Final NO GROWTH AFTER 5 DAYS INCUBATION 08/20/19 20:20 Blood - Peripheral Venous Blood Culture - Final NO GROWTH AFTER 5 DAYS INCUBATION 08/21/19 03:17 Sputum - Endotrachea Suction/Ventilator AFB Smear Concentration - Final 08/21/19 03:17 Sputum - Endotrachea Suction/Ventilator Mycobacterial Culture - Preliminary 08/20/19 05:00 Sputum - Endotrachea Suction/Ventilator AFB Smear Concentration - Final 08/20/19 05:00 Sputum - Endotrachea Suction/Ventilator Mycobacterial Culture - Preliminary 08/21/19 03:17 Sputum - Endotrachea Suction/Ventilator Gram Stain - Final 08/21/19 03:17 Sputum - Endotrachea Suction/Ventilator Sputum Culture - Final Mr S Aureus 08/17/19 02:00 Blood - Peripheral Venous Blood Culture - Final NO GROWTH AFTER 5 DAYS INCUBATION 08/17/19 02:00 Blood - Peripheral Venous Blood Culture - Final NO GROWTH AFTER 5 DAYS INCUBATION 08/20/19 19:30 Stool Clostridioides difficile Antigen - Final 08/20/19 19:30 Stool Clostridioides difficile Toxin Assay - Final 08/20/19 19:30 Urine For Antigen Detection Legionella Antigen - Final 08/20/19 19:30 Urine For Antigen Detection Streptococcus pneumoniae Antigen (M - Final 08/18/19 12:00 Sputum - Endotrachea Suction/Ventilator AFB Smear Concentration - Final 08/18/19 12:00 Sputum - Endotrachea Suction/Ventilator Mycobacterial Culture - Preliminary 08/17/19 11:35 Urine - Urine Caceres Urine Culture - Final NO GROWTH OBTAINED 08/12/19 13:10 Blood - Peripheral Venous Blood Culture - Final NO GROWTH AFTER 5 DAYS INCUBATION 08/12/19 13:00 Blood - Peripheral Venous Blood Culture - Final NO GROWTH AFTER 5 DAYS INCUBATION 08/14/19 14:50 Sputum - Endotrachea Suction/Ventilator Gram Stain - Final 08/14/19 14:50 Sputum - Endotrachea Suction/Ventilator Sputum Culture - Final NORMAL RESPIRATORY RICKY 08/14/19 14:49 Stool Clostridioides difficile Antigen - Final 08/14/19 14:49 Stool Clostridioides difficile Toxin Assay - Final 08/09/19 11:45 Blood - Peripheral Venous Blood Culture - Final NO GROWTH AFTER 5 DAYS INCUBATION 08/09/19 11:52 Blood - Peripheral Venous Blood Culture - Final NO GROWTH AFTER 5 DAYS INCUBATION 08/12/19 14:45 Stool Clostridioides difficile Antigen - Final 08/12/19 14:45 Stool Clostridioides difficile Toxin Assay - Final 08/09/19 16:30 Urine - Urine Caceres Urine Culture - Final NO GROWTH OBTAINED 08/04/19 19:40 Blood - Peripheral Venous Blood Culture - Final Staphylococcus Capitis 08/04/19 19:50 Blood - Peripheral Venous Blood Culture - Final NO GROWTH AFTER 5 DAYS INCUBATION 08/05/19 13:45 Urine - Urine Caceres Urine Culture - Final NO GROWTH OBTAINED 07/31/19 16:30 Blood - Peripheral Venous Blood Culture - Final NO GROWTH AFTER 5 DAYS INCUBATION 07/31/19 17:25 Blood - Peripheral Venous Blood Culture - Final Staphylococcus Capitis 08/01/19 11:55 Sputum - Endotrachea Suction/Ventilator Gram Stain - Final 08/01/19 11:55 Sputum - Endotrachea Suction/Ventilator Sputum Culture - Final Mr S Aureus 07/29/19 11:46 Blood - Peripheral Venous Blood Culture - Final NO GROWTH AFTER 5 DAYS INCUBATION 07/29/19 11:18 Blood - Central Line Blood Culture - Final NO GROWTH AFTER 5 DAYS INCUBATION 07/29/19 11:18 Urine - Urine Caceres Urine Culture - Final NO GROWTH OBTAINED 07/12/19 11:04 Blood - Peripheral Venous Yeast/Fungus Identification - Final Janis Lusitaniae 07/18/19 21:10 Blood - Peripheral Venous Blood Culture - Final NO GROWTH AFTER 5 DAYS INCUBATION 07/18/19 18:30 Blood - Peripheral Venous Blood Culture - Final NO GROWTH AFTER 5 DAYS INCUBATION 07/15/19 12:25 Blood - Peripheral Venous Blood Culture - Final NO GROWTH AFTER 5 DAYS INCUBATION 07/16/19 15:15 Blood - Peripheral Venous Blood Culture - Final Staphylococcus Epidermidis 07/14/19 11:30 Blood - Peripheral Venous Blood Culture - Final NO GROWTH AFTER 5 DAYS INCUBATION 07/16/19 15:05 Blood - Peripheral Venous Blood Culture - Final Staphylococcus Epidermidis 07/16/19 12:30 Sputum - Endotrachea Suction/Ventilator Gram Stain - Final 07/16/19 12:30 Sputum - Endotrachea Suction/Ventilator Sputum Culture - Final Mr S Aureus Escherichia Coli 07/12/19 10:55 Blood - Peripheral Venous Blood Culture - Final NO GROWTH AFTER 5 DAYS INCUBATION 07/16/19 12:30 Urine - Urine - Catheterized Urine Culture - Final NO GROWTH OBTAINED 07/12/19 06:00 Sputum - Endotrachea Suction/Ventilator Gram Stain - Final 07/12/19 06:00 Sputum - Endotrachea Suction/Ventilator Sputum Culture - Final 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 Mr S Aureus 07/12/19 11:04 Blood - Peripheral Venous Blood Culture - Final 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 07/01/19 18:15 Blood - Peripheral Venous Blood Culture - Final NO GROWTH AFTER 5 DAYS INCUBATION 06/29/19 12:30 Blood - Peripheral Venous Blood Culture - Final Staphylococcus Epidermidis 06/30/19 17:15 Sputum - Endotrachea Suction/Ventilator Gram Stain - Final 06/30/19 17:15 Sputum - Endotrachea Suction/Ventilator Sputum Culture - Final Escherichia Coli Esbl Hand Slitter 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 06/28/19 09:00 Blood - Peripheral Venous Blood Culture - Final Staphylococcus Epidermidis 06/28/19 12:50 Sputum - Endotrachea Suction/Ventilator Gram Stain - Final 06/28/19 12:50 Sputum - Endotrachea Suction/Ventilator Sputum Culture - Final 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 Staphylococcus Aureus 06/25/19 13:40 Blood - Peripheral Venous Blood Culture - Final NO GROWTH AFTER 5 DAYS INCUBATION 06/25/19 13:20 Blood - Peripheral Venous Blood Culture - Final NO GROWTH AFTER 5 DAYS INCUBATION 06/28/19 12:51 Urine - Urine Cacrees Urine Culture - Final NO GROWTH OBTAINED 06/22/19 13:00 Blood - Peripheral Venous Blood Culture - Final Staphylococcus Warneri 06/22/19 13:00 Blood - Peripheral Venous Blood Culture - Final Staphylococcus Epidermidis 06/24/19 00:01 Urine - Urine Caceres Urine Culture - Final NO GROWTH OBTAINED 06/24/19 00:01 Urine For Antigen Detection Legionella Antigen - Final 06/24/19 00:01 Urine For Antigen Detection Streptococcus pneumoniae Antigen (M - Final covid pcr negative (repeat) quantiferon negative strongyloides ab negative sputum afb negative times 3 imp/reccd recurrent fever- repeat cultures, repeat cxray unchanged sputum afbs negative times 3, quant negative esr/crp wbc tagged scan if fevers persist abn llfts and eosinophila persist- ?drug fever, check stool ova and parasites hep serology cmv pcr-please contact pathology and order cmv pcr quant chronic resp failure 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
[2019-08-28] MEDS: TOPIRAMATE 200 MG TABLET GT SCH ×3 (06:23→21:52)
[2019-08-28] MEDS: ACETAMINOPHEN 325 MG TABLET (FP) PO PRN (06:23)
[2019-08-28] MEDS: AMINO ACIDS/PROTEIN HYDROLYS 30 ML LIQUID.PKT GT SCH ×2 (09:00→17:47)
[2019-08-28 09:20] LABS: BASO % 0.6 % (0-2.0); HEMATOCRIT 31.6 % (35.4-49); MCH 28.4 pg (25.7-33.7); MCHC 31.6 g/dl (32.0-35.9); MEAN CELL VOLUME 89.8 fl (80-96); MEAN PLT VOLUME 11.2 fl (7.5-11.1); NEUT % 65.4 % (42.8-82.8); PLATELET COUNT 292 K/MM3 (134-434); RBC 3.52 M/mm3 (4.00-5.60); RDW 17.2 % (11.9-15.9); WHITE BLOOD COUNT 11.8 K/mm3 (4.0-10.0)
[2019-08-28 09:54] LABS: ALBUMIN 2.8 g/dl (3.4-5.0); BILIRUBIN,TOTAL 0.2 mg/dL (0.2-1); BLOOD UREA NITROGEN 14.1 mg/dL (7-18); CALCIUM 8.9 mg/dL (8.5-10.1); CREATININE 0.5 mg/dL (0.55-1.3); POTASSIUM 3.6 mmol/L (3.5-5.1); TOT PROT 6.5 g/dl (6.4-8.2)
[2019-08-28] MEDS ORDERED: PT OWN MED DRAWER 7, Y5N ONE ×2 (10:33→21:47)
[2019-08-28] MEDS: levETIRAcetam 500 MG/5 ML ORAL SOLUTION (UNIT-DOSE CUPS) NGT SCH ×2 (10:39→21:50)
[2019-08-28] MEDS: ENOXAPARIN NA (PORCINE) 40 MG/0.4 ML DISP.SYRIN SQ SCH (10:39)
[2019-08-28] MEDS: POTASSIUM CHLORIDE ORAL LIQUID 20 MEQ/15 ML GT SCH ×2 (10:39→21:51)
[2019-08-28] MEDS: Lacosamide 50 MG/5 ML ORAL SOLUTION UNIT CUPS PO SCH ×2 (10:40→21:52)
[2019-08-28] MEDS: PANTOPRAZOLE SODIUM 40 MG VIAL IVPUSH SCH (10:40)
[2019-08-28] MEDS: PHENobarbital 20 MG/5 ML UNIT-DOSE CUP NGT SCH ×2 (10:40→21:51)
[2019-08-28] MEDS: CHOLECALCIFEROL (VIT D3) 400 UNIT (10 MCG) TABLET NR SCH (10:41)
[2019-08-28] MEDS: CARVEDILOL 6.25 MG TABLET (FP) PO SCH ×2 (10:41→21:50)
[2019-08-28] MEDS: QUEtiapine FUMARATE 25 MG TABLET PO SCH (10:42)
[2019-08-28] MEDS: NYSTATIN POWDER 100,000 UNITS/GM - 15 GM TOPICAL POWDER TP SCH ×2 (10:42→21:50)
[2019-08-28] MEDS: ZINC SULFATE 220 MG CAPSULE (FP) GT SCH ×2 (10:42→21:50)
[2019-08-28] MEDS: ASCORBIC ACID 500 MG/5 ML UNIT DOSE CUP GT SCH (10:43)
--- NOTE | 2019-08-28 11:58 | PN ---
Progress Note (short form) - Note Progress Note: trach to vent Vital Signs Period Temp Pulse Resp BP Sys/Ortiz Pulse Ox Last 24 Hr 98.2 F-100.4 F 91-117 24-36 116-142/74-94 98-100 cor-rrr lungs decreased bs at bases abd soft,nt +GT ext no edema CBC, BMP 08/28/19 09:00 08/28/19 09:00 esr 75, crp 3.5 (improving) covid pcr negative quantiferon negative strongyloides ab negative sputum afb negative times 3 imp/reccd recurrent fever- repeat cultures negative abn lfts and eosinophila persist- ?drug fever, check stool ova and parasites- pending cmv pcr ordered sputum afb negative please contact family for hiv consent repeat ct scan abd/pelvis with contrast -fever/abnl lfts in the setting of recent fungemia chronic resp failure 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
--- NOTE | 2019-08-28 12:33 | PN ---
Progress Note, Physician History of Present Illness: Pt seen and examined at bedside. He appears comfortable. - Current Medication List Current Medications: Active Medications Acetaminophen (Tylenol -) 650 mg PO Q6H PRN PRN Reason: Fever Or Pain Last Admin: 08/28/19 06:23 Dose: 650 mg Documented by: Albuterol/Ipratropium (Duoneb -) 1 amp NEB Q6H PRN PRN Reason: SHORTNESS OF BREATH Last Admin: 08/27/19 04:30 Dose: 1 amp Documented by: Amino Acids (Prosource No Carb Liquid Pkt) 30 ml GT BID@0800,1730 [facility] Last Admin: 08/28/19 09:00 Dose: 30 ml Documented by: Artificial Tears (Artificial Tears) 1 drop OU Q12H PRN PRN Reason: DRY EYES Last Admin: 08/10/19 10:43 Dose: 1 drop Documented by: Ascorbic Acid (Vitamin C Oral Solution -) 500 mg GT DAILY [facility] Last Admin: 08/28/19 10:43 Dose: 500 mg Documented by: Carvedilol (Coreg -) 6.25 mg PO BID [facility] Last Admin: 08/28/19 10:41 Dose: 6.25 mg Documented by: Cholecalciferol (Vitamin D3 -) 800 unit NR DAILY [facility] Last Admin: 08/28/19 10:41 Dose: 800 unit Documented by: Enoxaparin Sodium (Lovenox -) 40 mg SQ DAILY [facility] Last Admin: 08/28/19 10:39 Dose: 40 mg Documented by: Lacosamide (Vimpat Liquid -) 200 mg PO BID [facility] Last Admin: 08/28/19 10:40 Dose: 200 mg Documented by: Levetiracetam (Keppra Oral Solution -) 1,000 mg NGT BID [facility] Last Admin: 08/28/19 10:39 Dose: 1,000 mg Documented by: Nystatin (Nystatin Oral Suspension -) 500,000 units PO Q6HPO PRN PRN Reason: ORAL PAIN/MOUTH SORES Nystatin (Nystop Powder -) 1 applic TP BID [facility] Last Admin: 08/28/19 10:42 Dose: 1 applic Documented by: Pantoprazole Sodium (Protonix Iv) 40 mg IVPUSH DAILY [facility] Last Admin: 08/28/19 10:40 Dose: 40 mg Documented by: Phenobarbital (Phenobarbital Liquid -) 60 mg NGT BID [facility] Last Admin: 08/28/19 10:40 Dose: 60 mg Documented by: Potassium Chloride (Potassium Chloride Oral Liquid) 40 meq GT BID [facility] Last Admin: 08/28/19 10:39 Dose: 40 meq Documented by: Quetiapine Fumarate (Seroquel -) 25 mg PO DAILY [facility] Last Admin: 08/28/19 10:42 Dose: 25 mg Documented by: Topiramate (Topamax -) 200 mg GT TID [facility] Last Admin: 08/28/19 06:23 Dose: 200 mg Documented by: Zinc Sulfate (Orazinc -) 220 mg GT BID [facility] Last Admin: 08/28/19 10:42 Dose: 220 mg Documented by: - Objective Vital Signs: Vital Signs Temperature 100.4 F H 08/28/19 11:00 Pulse Rate 117 H 08/28/19 11:00 Respiratory Rate 36 H 08/28/19 11:24 Blood Pressure 139/94 08/28/19 11:00 O2 Sat by Pulse Oximetry (%) 100 08/28/19 11:25 Constitutional: Yes: Calm Eyes: Yes: Conjunctiva Clear HENT: Yes: Atraumatic Neck: Yes: Other (trache) Cardiovascular: Yes: S1, S2 Respiratory: Yes: Mechanically Ventilated Gastrointestinal: Yes: Soft, Other (peg) Genitourinary: Yes: Caceres Present Edema: No Neurological: Yes: Other (awake) Labs: CBC, BMP 08/28/19 09:00 08/28/19 09:00 INR, PTT INR 1.20 (0.83-1.09) H 08/21/19 11:30 Problem List - Problems (1) Hypernatremia Code(s): E87.0 - HYPEROSMOLALITY AND HYPERNATREMIA (2) Hypokalemia Code(s): E87.6 - HYPOKALEMIA (3) Acute respiratory failure with hypoxia Code(s): J96.01 - ACUTE RESPIRATORY FAILURE WITH HYPOXIA (4) Bacteremia Code(s): R78.81 - BACTEREMIA Assessment/Plan Current Medications Generic Name Dose Route Start Last Admin Trade Name Freq PRN Reason Stop Dose Admin Acetaminophen 650 mg 08/21/19 13:08 08/28/19 06:23 Tylenol - PO 650 mg Q6H PRN Administration Fever Or Pain Albuterol/Ipratropium 1 amp 08/16/19 13:19 08/27/19 04:30 Duoneb - NEB 1 amp Q6H PRN Administration SHORTNESS OF BREATH Amino Acids 30 ml 08/09/19 08:00 08/28/19 09:00 Prosource No Carb Liquid Pkt GT 30 ml BID@0800,1730 TIKI Administration Artificial Tears 1 drop 08/08/19 18:05 08/10/19 10:43 Artificial Tears OU 1 drop Q12H PRN Administration DRY EYES Ascorbic Acid 500 mg 08/09/19 10:00 08/28/19 10:43 Vitamin C Oral Solution - GT 500 mg DAILY TIKI Administration Carvedilol 6.25 mg 08/20/19 09:33 08/28/19 10:41 Coreg - PO 6.25 mg BID TIKI Administration Cholecalciferol 800 unit 08/09/19 10:00 08/28/19 10:41 Vitamin D3 - NR 800 unit DAILY TIKI Administration Enoxaparin Sodium 40 mg 08/15/19 10:00 08/28/19 10:39 Lovenox - SQ 40 mg DAILY TIKI Administration Lacosamide 200 mg 08/10/19 22:00 08/28/19 10:40 Vimpat Liquid - PO 200 mg BID TIKI Administration Levetiracetam 1,000 mg 08/10/19 22:00 08/28/19 10:39 Keppra Oral Solution - NGT 1,000 mg BID TIKI Administration Nystatin 500,000 units 08/08/19 18:05 Nystatin Oral Suspension - PO Q6HPO PRN ORAL PAIN/MOUTH SORES Nystatin 1 applic 08/21/19 11:15 08/28/19 10:42 Nystop Powder - TP 1 applic BID TIKI Administration Pantoprazole Sodium 40 mg 08/14/19 11:45 08/28/19 10:40 Protonix Iv IVPUSH 40 mg DAILY [facility]IKI Administration Phenobarbital 60 mg 08/10/19 22:00 08/28/19 10:40 Phenobarbital Liquid - NGT 60 mg BID TIKI Administration Potassium Chloride 40 meq 08/08/19 22:00 08/28/19 10:39 Potassium Chloride Oral Liquid GT 40 meq BID TIKI Administration Quetiapine Fumarate 25 mg 08/18/19 10:45 08/28/19 10:42 Seroquel - PO 25 mg DAILY TIKI Administration Topiramate 200 mg 08/08/19 22:00 08/28/19 06:23 Topamax - GT 200 mg TID TIKI Administration Zinc Sulfate 220 mg 08/08/19 22:00 08/28/19 10:42 Orazinc - GT 220 mg BID TIKI Administration Impression 1. hypokalemia 2. hypernatremia 3. resp failure 4. fungemia 5. covid 19 infection 6. ards 7. developemental delay 8. epilepsy 9. bactermia 10. resp acidosis with compensatory met alk Plan - cont free water with feeds, will increase - lasix on hold - monitor potassium - weaning per pulmonary - repeat labs in am - avoid overload - vent support
--- NOTE | 2019-08-28 12:38 | PN.GI ---
GI Progress Note Subjective: Asked to evaluate abnormal LFTs Mild / relatively stable elevations in transaminases / alkaline phosphatase. ALP was normal on admission. AST was midly elevated on admission as was CPK. Has been on current anti seizure regimen prior to admission. Has received Ertapenem, Vanco, Zosyn, Acerna in 06/21, tylenol has been sidcontinued previously and restarted due to intermittet fevers. Source of fevers unclear. Prevous abdominal US failed to reveal biliary tract pathology including stones. Showed fatty liver CTA chest 08/16 revealed bilateral pulmonary infiltrates. (Reviewing the study, I did not see obvious focal findings of liver) Hepatitis serologies have been ordered by ID as has CMV serology - Objective Vital Signs: Vital Signs Temperature 100.4 F H 08/28/19 11:00 Pulse Rate 117 H 08/28/19 11:00 Respiratory Rate 36 H 08/28/19 11:24 Blood Pressure 139/94 08/28/19 11:00 O2 Sat by Pulse Oximetry (%) 100 08/28/19 11:25 Constitutional: Calm Eyes: No: Sclera Icterus Cardiovascular: Yes: Regular Rate and Rhythm Respiratory: Yes: CTA Bilaterally Gastrointestinal Inspection: No: Distention ...Auscultate: Yes: Normoactive Bowel Sounds ...Palpate: Yes: Soft. No: Hepatomegaly, Splenomegaly, Tenderness (No grimacing upon palpation) ...Percussion: No: Tympanitic Edema: No (No LE edema) Neurological: Yes: Other (Awake) Labs: CBC, BMP 08/28/19 09:00 08/28/19 09:00 INR, PTT INR 1.20 (0.83-1.09) H 08/21/19 11:30 Hepatic Panel Total Bilirubin 0.2 mg/dL (0.2-1) 08/28/19 09:00 Direct Bilirubin 0.2 mg/dL (0.0-0.2) 08/17/19 14:55 AST 46 U/L (15-37) H 08/28/19 09:00 ALT 106 U/L (13-61) H 08/28/19 09:00 Alkaline Phosphatase 155 U/L (45-117) H 08/28/19 09:00 Albumin 2.8 g/dl (3.4-5.0) L 08/28/19 09:00 Problem List - Problems (1) Abnormal liver function tests Assessment/Plan: Asymptomatic without focal findings on abdominal exam. Unclear cause of persistent LFT abnormality. ? if component of prexisting liver disease (fatty liver either from medication effect, NAFLD or both) with superimposed reactive hepatopathy secondary to systemic disease process / antibiotic exposure, actemra use. Advise: Formal imaging of the abdomen and pelvis to help evaluate liver parenchyma and assess for other potential causes of unexplained fevers. CT scan of the abdomen and pelvis with and without IV contrast. Follow-up hepatitis serologies. Ordered Hepatitis C antibody as well Check serum ceruloplasmin (will need to be authorized by pathology and form faxed down to pathology. Form available from hospital ward clerk), RACHEL, Smooth muscle antibody Check Iron studies: Iron, TIBC/Ferritin. Ideally in fastring state Avoid hepatotoxic agents / med elimination as feasible If no improvement in LFTs and imagig/serologic studies unrevealing, May ultimately need liver biopsy assess further. Including specimen for copper quantification. Code(s): R94.5 - ABNORMAL RESULTS OF LIVER FUNCTION STUDIES
--- NOTE | 2019-08-28 12:41 | PN ---
Progress Note, TELEPHONE ANSWERER - Note Progress Note: Selected Entries 08/27/19 08/27/19 08/27/19 02:00 03:08 04:31 Supper Temperature 100.5 F H 100.4 F H Pulse Rate 110 H 98 H Blood Pressure 142/81 08/27/19 08/27/19 08/27/19 07:00 10:00 10:38 Supper NPO Temperature 99.3 F 99 F Pulse Rate 103 H 93 H Blood Pressure 135/82 140/86 08/27/19 08/27/19 08/27/19 15:00 19:03 23:00 Supper NPO Temperature 98.2 F 99.2 F Pulse Rate 91 H 102 H Blood Pressure 127/83 133/79 08/28/19 08/28/19 08/28/19 03:00 07:00 08:24 Supper Temperature 99 F Pulse Rate 109 H 101 H 111 H Blood Pressure 116/74 142/92 08/28/19 11:00 Supper Temperature 100.4 F H Pulse Rate 117 H Blood Pressure 139/94 Laboratory Tests 08/27/19 08/28/19 07:20 09:00 WBC 9.9 11.8 H Still too lethargic, medically not ready for PMCV. Per CCC-Pt has been trached and is currently on a ventilator. Pt will need to be weaned off the ventilator and PT in order to be dc, but pt remains acute at this time. PMV assessment when medically stable for communication and to facilitate weaning from ventilator/ peg
--- NOTE | 2019-08-28 13:10 | PN ---
Physical Exam: SUBJECTIVE: Patient seen and examined at bedside. OBJECTIVE: Vital Signs Period Temp Pulse Resp BP Sys/Ortiz Pulse Ox Last 24 Hr 98.2 F-100.4 F 91-117 24-36 116-142/74-94 98-100 Exam unchanged Gen: trach in place, tachypnic, nonverbal; follows commands HEENT: NCAT, moist membranes Neck: trach in place Cardio: tachycardic, regular, no mrg noted Pulm: cta b/l Abd: Soft, nondistended. Percutaneous G tube in place. CDI Ext: no edema Laboratory Results - last 24 hr 08/28/19 08/28/19 08/28/19 09:00 09:00 09:00 WBC 11.8 H RBC 3.52 L Hgb 10.0 L Hct 31.6 L MCV 89.8 MCH 28.4 MCHC 31.6 L RDW 17.2 H Plt Count 292 MPV 11.2 H Absolute Neuts (auto) 7.7 Neutrophils % 65.4 D Lymphocytes % 23.0 D Monocytes % 6.0 Eosinophils % 5.0 H Basophils % 0.6 Nucleated RBC % 0 ESR 75 H Sodium 147 H Potassium 3.6 Chloride 115 H Carbon Dioxide 21 Anion Gap 11 BUN 14.1 Creatinine 0.5 L Est GFR (CKD-EPI)AfAm 159.33 Est GFR (CKD-EPI)NonAf 137.47 Random Glucose 128 H Calcium 8.9 Total Bilirubin 0.2 AST 46 H ALT 106 H Alkaline Phosphatase 155 H C-Reactive Protein 3.8 H Total Protein 6.5 Albumin 2.8 L Active Medications Generic Name Dose Route Start Last Admin Trade Name Freq PRN Reason Stop Dose Admin Acetaminophen 650 mg 08/21/19 13:08 08/28/19 06:23 Tylenol - PO 650 mg Q6H PRN Administration Fever Or Pain Albuterol/Ipratropium 1 amp 08/16/19 13:19 08/27/19 04:30 Duoneb - NEB 1 amp Q6H PRN Administration SHORTNESS OF BREATH Amino Acids 30 ml 08/09/19 08:00 08/28/19 09:00 Prosource No Carb Liquid Pkt GT 30 ml BID@0800,1730 TIKI Administration Artificial Tears 1 drop 08/08/19 18:05 08/10/19 10:43 Artificial Tears OU 1 drop Q12H PRN Administration DRY EYES Ascorbic Acid 500 mg 08/09/19 10:00 08/28/19 10:43 Vitamin C Oral Solution - GT 500 mg DAILY TIKI Administration Carvedilol 6.25 mg 08/20/19 09:33 08/28/19 10:41 Coreg - PO 6.25 mg BID TIKI Administration Cholecalciferol 800 unit 08/09/19 10:00 08/28/19 10:41 Vitamin D3 - NR 800 unit DAILY TIKI Administration Enoxaparin Sodium 40 mg 08/15/19 10:00 08/28/19 10:39 Lovenox - SQ 40 mg DAILY TIKI Administration Lacosamide 200 mg 08/10/19 22:00 08/28/19 10:40 Vimpat Liquid - PO 200 mg BID TIKI Administration Levetiracetam 1,000 mg 08/10/19 22:00 08/28/19 10:39 Keppra Oral Solution - NGT 1,000 mg BID TIKI Administration Nystatin 500,000 units 08/08/19 18:05 Nystatin Oral Suspension - PO Q6HPO PRN ORAL PAIN/MOUTH SORES Nystatin 1 applic 08/21/19 11:15 08/28/19 10:42 Nystop Powder - TP 1 applic BID TIKI Administration Pantoprazole Sodium 40 mg 08/14/19 11:45 08/28/19 10:40 Protonix Iv IVPUSH 40 mg DAILY TIKI Administration Phenobarbital 60 mg 08/10/19 22:00 08/28/19 10:40 Phenobarbital Liquid - NGT 60 mg BID TIKI Administration Potassium Chloride 40 meq 08/08/19 22:00 08/28/19 10:39 Potassium Chloride Oral Liquid GT 40 meq BID TIKI Administration Quetiapine Fumarate 25 mg 08/18/19 10:45 08/28/19 10:42 Seroquel - PO 25 mg DAILY TIKI Administration Topiramate 200 mg 08/08/19 22:00 08/28/19 06:23 Topamax - GT 200 mg TID TIKI Administration Zinc Sulfate 220 mg 08/08/19 22:00 08/28/19 10:42 Orazinc - GT 220 mg BID TIKI Administration ASSESSMENT/PLAN: 39 y/o M with PMH Mental Retardation and epilepsy who presented to ED initially with SOB and hypoxia requiring intubation, admitted to hospital for hypoxic respiratory failure 2/2 to covid-19. Hospital course complicated by bacteremia, fungemia, MRSA PNA, now with recurrent fever. Acute Resp Failure 2/2 COVID-19 -s/p trach, convalescent plasma, tocilizumab -on AC vent settings. Weaning as tolerated -Pulm on board Sepsis. Febrile this morning -persistent leukocytosis - improved -recurrent fever/tachycardia with Bacteremia/fungemia -BCx (08/04/2019) pos for Staph capitis -BCx (07/12/2019) pos for fungi. Received cancidas -Echo 07/21/2019 did not reveal vegetations -sputum (07/21/2019) for AFB negative -strongyloides (08/19/2019) negative -Sputum Cx (08/21/2019) pos for MRSA. Dapto sensitive. -ID on board. F/u Recs. Presently observing off Abx -Nephro on board Transaminitis -persistent since admission -as of yet, no clear source identified -per GI, will get CT con/noncon Abdomen, ceruloplasmin, and pt will potentially require a biopsy Tachycardia -c/w Coreg -c/w low-dose seroquel to treat potential contribution of anxiety Epilepsy -c/w lorazepam prn, leviteracitam, phenobarbitol, lacosamide, topiramate DVT ppx -enoxaparin 40 Visit type - Emergency Visit Emergency Visit: No - New Patient This patient is new to me today: No - Critical Care Critical Care patient: No ATTENDING PHYSICIAN STATEMENT I saw and evaluated the patient. I reviewed the resident's note and discussed the case with the resident. I agree with the resident's findings and plan as documented. SUBJECTIVE: OBJECTIVE: ASSESSMENT AND PLAN:
--- NOTE | 2019-08-28 13:11 | PN ---
Progress Note (short form) - Note Progress Note: PULMONARY NAD on AC Mode of vent. Intermittent fever. No acute events overnight. VSS Gen: trached & vented, awake Heart: RRR Lung: decreased breath sounds at the bases Abd: soft, nontender Ext: + edema LABS/MEDS/NOTES REVIEWED ASSESSMENT AND PLAN: Acute Hypoxic and Hypercapneic Respiratory Failure COVID19 Pneumonia E Coli Pneumonia Fungenmia Bacteremia Septic Shock Seizure Disorder Mental Retardation - AC Mode of vent - Off ABX per ID - continue antiepileptics - monitor urine output, creatinine - low tidal volume ventilation - titrate FiO2, PEEP to keep SpO2 >90% - spontaeneous breathing trials as tolerated - enteral feeds: PEG insertion once stable - DVT/GI prophylaxis Avery WISEMAN MD
[2019-08-28] MEDS: FAMOTIDINE 40 MG/5 ML ORAL SUSPENSION NGT SCH (21:50)
[2019-08-29] MEDS: TOPIRAMATE 200 MG TABLET GT SCH ×3 (05:40→22:04)
[2019-08-29 08:36] LABS: BASO % 1.3 % (0-2.0); EOS % 4.4 % (0-4.5); HEMATOCRIT 32.2 % (35.4-49); HEMOGLOBIN 10.1 GM/dL (11.7-16.9); LYMPH % 22.1 % (8-40); MCH 28.3 pg (25.7-33.7); MCHC 31.3 g/dl (32.0-35.9); MEAN CELL VOLUME 90.3 fl (80-96); MEAN PLT VOLUME 12.5 fl (7.5-11.1); MONO % 6.4 % (3.8-10.2); NEUT % 65.8 % (42.8-82.8); PLATELET COUNT 236 K/MM3 (134-434); RBC 3.57 M/mm3 (4.00-5.60); RDW 17.4 % (11.9-15.9)
[2019-08-29 08:45] LABS: ALBUMIN 2.7 g/dl (3.4-5.0); BILIRUBIN,TOTAL 0.4 mg/dL (0.2-1); BLOOD UREA NITROGEN 13.3 mg/dL (7-18); CREATININE 0.5 mg/dL (0.55-1.3); POTASSIUM 3.7 mmol/L (3.5-5.1); TOT PROT 6.2 g/dl (6.4-8.2)
[2019-08-29] MEDS ORDERED: PT OWN MED DRAWER 7, Y5N ONE (08:56)
[2019-08-29] MEDS: POTASSIUM CHLORIDE ORAL LIQUID 20 MEQ/15 ML GT SCH ×2 (09:07→22:04)
[2019-08-29] MEDS: ENOXAPARIN NA (PORCINE) 40 MG/0.4 ML DISP.SYRIN SQ SCH (09:07)
[2019-08-29] MEDS: AMINO ACIDS/PROTEIN HYDROLYS 30 ML LIQUID.PKT GT SCH ×2 (09:07→18:47)
[2019-08-29] MEDS: Lacosamide 50 MG/5 ML ORAL SOLUTION UNIT CUPS PO SCH ×2 (09:07→22:05)
[2019-08-29] MEDS: PHENobarbital 20 MG/5 ML UNIT-DOSE CUP NGT SCH ×2 (09:07→22:03)
[2019-08-29] MEDS: levETIRAcetam 500 MG/5 ML ORAL SOLUTION (UNIT-DOSE CUPS) NGT SCH ×2 (09:07→22:04)
[2019-08-29] MEDS: NYSTATIN POWDER 100,000 UNITS/GM - 15 GM TOPICAL POWDER TP SCH ×2 (09:08→22:05)
[2019-08-29] MEDS: CARVEDILOL 6.25 MG TABLET (FP) PO SCH ×2 (09:08→22:03)
[2019-08-29] MEDS: ZINC SULFATE 220 MG CAPSULE (FP) GT SCH ×2 (09:09→22:03)
[2019-08-29] MEDS: QUEtiapine FUMARATE 25 MG TABLET PO SCH (09:10)
[2019-08-29] MEDS: CHOLECALCIFEROL (VIT D3) 400 UNIT (10 MCG) TABLET NR SCH (09:23)
[2019-08-29] MEDS: ASCORBIC ACID 500 MG/5 ML UNIT DOSE CUP GT SCH (09:23)
[2019-08-29] MEDS: FAMOTIDINE 40 MG/5 ML ORAL SUSPENSION NGT SCH ×2 (09:23→22:07)
[2019-08-29] MEDS ORDERED: PANTOPRAZOLE 40 MG TABLET PO SCH (10:00)
--- NOTE | 2019-08-29 10:00 | PN ---
Progress Note (short form) - Note Progress Note: No new change still on ventilator alert awake but no response. Vital Signs Period Temp Pulse Resp BP Sys/Ortiz Pulse Ox Last 24 Hr 97.9 F-100.5 F 97-117 20-40 116-140/76-94 100-100 Exam unchanged Gen: trach in place, tachypnic, nonverbal; follows commands HEENT: NCAT, moist membranes Neck: trach in place Cardio: tachycardic, regular, no mrg noted Pulm: cta b/l Abd: Soft, nondistended. Percutaneous G tube in place. CDI Ext: no richard CBC, BMP 08/29/19 07:36 08/29/19 07:36 ASSESSMENT/PLAN: 39 y/o M with PMH Mental Retardation and epilepsy who presented to ED initially with SOB and hypoxia requiring intubation, admitted to hospital for hypoxic re spiratory failure 2/2 to covid-19. Hospital course complicated by bacteremia, fungemia, MRSA PNA, now with recurrent fever. Acute Resp Failure 2/2 COVID-19 -s/p trach, convalescent plasma, tocilizumab -on AC vent settings. Weaning as tolerated -Pulm on board Sepsis. Febrile this morning -persistent leukocytosis - improved -recurrent fever/tachycardia with Bacteremia/fungemia -BCx (08/04/2019) pos for Staph capitis -BCx (07/12/2019) pos for fungi. Received cancidas -Echo 07/21/2019 did not reveal vegetations -sputum (07/21/2019) for AFB negative -strongyloides (08/19/2019) negative -Sputum Cx (08/21/2019) pos for MRSA. Dapto sensitive. -ID on board. F/u Recs. Presently observing off Abx -Nephro on board Transaminitis -persistent since admission -as of yet, no clear source identified -per GI, will get CT con/noncon Abdomen, ceruloplasmin, and pt will potentially require a biopsy Tachycardia -c/w Coreg -c/w low-dose seroquel to treat potential contribution of anxiety Epilepsy -c/w lorazepam prn, leviteracitam, phenobarbitol, lacosamide, topiramate DVT ppx -enoxaparin 40 Visit type - Emergency Visit Emergency Visit: Yes ED Registration Date: 06/22/19 Care time: The patient presented to the Emergency Department on the above date and was hospitalized for further evaluation of their emergent condition. - New Patient This patient is new to me today: No - Critical Care Critical Care patient: No - Discharge Referral Referred to [facility] No
[2019-08-29 12:02] LABS: PLATELET ESTIMATE NORMAL
[2019-08-29 13:16] LABS: WHITE BLOOD COUNT 15.5 K/mm3 (4.0-10.0)
--- NOTE | 2019-08-29 19:53 | PN ---
Progress Note, Physician History of Present Illness: Pt seen and examined at bedside. He remains on vent. - Current Medication List Current Medications: Active Medications Acetaminophen (Tylenol -) 650 mg PO Q6H PRN PRN Reason: Fever Or Pain Last Admin: 08/28/19 06:23 Dose: 650 mg Documented by: Albuterol/Ipratropium (Duoneb -) 1 amp NEB Q6H PRN PRN Reason: SHORTNESS OF BREATH Last Admin: 08/27/19 04:30 Dose: 1 amp Documented by: Amino Acids (Prosource No Carb Liquid Pkt) 30 ml GT BID@0800,1730 [facility] Last Admin: 08/29/19 18:47 Dose: 30 ml Documented by: Artificial Tears (Artificial Tears) 1 drop OU Q12H PRN PRN Reason: DRY EYES Last Admin: 08/10/19 10:43 Dose: 1 drop Documented by: Ascorbic Acid (Vitamin C Oral Solution -) 500 mg GT DAILY [facility] Last Admin: 08/29/19 09:23 Dose: 500 mg Documented by: Carvedilol (Coreg -) 6.25 mg PO BID [facility] Last Admin: 08/29/19 09:08 Dose: 6.25 mg Documented by: Cholecalciferol (Vitamin D3 -) 800 unit NR DAILY [facility] Last Admin: 08/29/19 09:23 Dose: 800 unit Documented by: Enoxaparin Sodium (Lovenox -) 40 mg SQ DAILY [facility] Last Admin: 08/29/19 09:07 Dose: 40 mg Documented by: Famotidine (Pepcid) 20 mg NGT BID [facility] Last Admin: 08/29/19 09:23 Dose: 20 mg Documented by: Lacosamide (Vimpat Liquid -) 200 mg PO BID [facility] Last Admin: 08/29/19 09:07 Dose: 200 mg Documented by: Levetiracetam (Keppra Oral Solution -) 1,000 mg NGT BID [facility] Last Admin: 08/29/19 09:07 Dose: 1,000 mg Documented by: Nystatin (Nystatin Oral Suspension -) 500,000 units PO Q6HPO PRN PRN Reason: ORAL PAIN/MOUTH SORES Nystatin (Nystop Powder -) 1 applic TP BID [facility] Last Admin: 08/29/19 09:08 Dose: 1 applic Documented by: Phenobarbital (Phenobarbital Liquid -) 60 mg NGT BID [facility] Last Admin: 08/29/19 09:07 Dose: 60 mg Documented by: Potassium Chloride (Potassium Chloride Oral Liquid) 40 meq GT BID [facility] Last Admin: 08/29/19 09:07 Dose: 40 meq Documented by: Quetiapine Fumarate (Seroquel -) 25 mg PO DAILY [facility] Last Admin: 08/29/19 09:10 Dose: 25 mg Documented by: Topiramate (Topamax -) 200 mg GT TID [facility] Last Admin: 08/29/19 14:24 Dose: 200 mg Documented by: Zinc Sulfate (Orazinc -) 220 mg GT BID [facility] Last Admin: 08/29/19 09:09 Dose: 220 mg Documented by: - Objective Vital Signs: Vital Signs Temperature 98.5 F 08/29/19 18:00 Pulse Rate 98 H 08/29/19 18:00 Respiratory Rate 22 H 08/29/19 18:00 Blood Pressure 120/75 08/29/19 18:00 O2 Sat by Pulse Oximetry (%) 99 08/29/19 15:57 Constitutional: Yes: Calm Eyes: Yes: Conjunctiva Clear HENT: Yes: Atraumatic Neck: Yes: Supple Cardiovascular: Yes: S1, S2 Respiratory: Yes: Mechanically Ventilated Gastrointestinal: Yes: Soft Genitourinary: Yes: Caceres Present Musculoskeletal: Yes: Muscle Weakness Edema: LLE: Trace, RLE: Trace Labs: CBC, BMP 08/29/19 07:36 08/29/19 07:36 INR, PTT INR 1.20 (0.83-1.09) H 08/21/19 11:30 Problem List - Problems (1) Hypernatremia Code(s): E87.0 - HYPEROSMOLALITY AND HYPERNATREMIA (2) Hypokalemia Code(s): E87.6 - HYPOKALEMIA (3) Acute respiratory failure with hypoxia Code(s): J96.01 - ACUTE RESPIRATORY FAILURE WITH HYPOXIA (4) Bacteremia Code(s): R78.81 - BACTEREMIA Assessment/Plan Current Medications Generic Name Dose Route Start Last Admin Trade Name Freq PRN Reason Stop Dose Admin Acetaminophen 650 mg 08/21/19 13:08 08/28/19 06:23 Tylenol - PO 650 mg Q6H PRN Administration Fever Or Pain Albuterol/Ipratropium 1 amp 08/16/19 13:19 08/27/19 04:30 Duoneb - NEB 1 amp Q6H PRN Administration SHORTNESS OF BREATH Amino Acids 30 ml 08/09/19 08:00 08/29/19 18:47 Prosource No Carb Liquid Pkt GT 30 ml BID@0800,1730 TIKI Administration Artificial Tears 1 drop 08/08/19 18:05 08/10/19 10:43 Artificial Tears OU 1 drop Q12H PRN Administration DRY EYES Ascorbic Acid 500 mg 08/09/19 10:00 08/29/19 09:23 Vitamin C Oral Solution - GT 500 mg DAILY TIKI Administration Carvedilol 6.25 mg 08/20/19 09:33 08/29/19 09:08 Coreg - PO 6.25 mg BID TIKI Administration Cholecalciferol 800 unit 08/09/19 10:00 08/29/19 09:23 Vitamin D3 - NR 800 unit DAILY TIKI Administration Enoxaparin Sodium 40 mg 08/15/19 10:00 08/29/19 09:07 Lovenox - SQ 40 mg DAILY TIKI Administration Famotidine 20 mg 08/28/19 22:00 08/29/19 09:23 Pepcid NGT 20 mg BID TIKI Administration Lacosamide 200 mg 08/10/19 22:00 08/29/19 09:07 Vimpat Liquid - PO 200 mg BID TIKI Administration Levetiracetam 1,000 mg 08/10/19 22:00 08/29/19 09:07 Keppra Oral Solution - NGT 1,000 mg BID TIKI Administration Nystatin 500,000 units 08/08/19 18:05 Nystatin Oral Suspension - PO Q6HPO PRN ORAL PAIN/MOUTH SORES Nystatin 1 applic 08/21/19 11:15 08/29/19 09:08 Nystop Powder - TP 1 applic BID TIKI Administration Phenobarbital 60 mg 08/10/19 22:00 08/29/19 09:07 Phenobarbital Liquid - NGT 60 mg BID TIKI Administration Potassium Chloride 40 meq 08/08/19 22:00 08/29/19 09:07 Potassium Chloride Oral Liquid GT 40 meq BID TIKI Administration Quetiapine Fumarate 25 mg 08/18/19 10:45 08/29/19 09:10 Seroquel - PO 25 mg DAILY TIKI Administration Topiramate 200 mg 08/08/19 22:00 08/29/19 14:24 Topamax - GT 200 mg TID TIKI Administration Zinc Sulfate 220 mg 08/08/19 22:00 08/29/19 09:09 Orazinc - GT 220 mg BID TIKI Administration Impression 1. hypokalemia 2. hypernatremia 3. resp failure 4. fungemia 5. covid 19 infection 6. ards 7. developemental delay 8. epilepsy 9. bactermia 10. resp acidosis with compensatory met alk Plan - sodium is improved - repeat labs in am - cont vent support - cont current meds - lasix on hold - monitor potassium - weaning per pulmonary
[2019-08-30] MEDS: TOPIRAMATE 200 MG TABLET GT SCH ×3 (06:38→22:56)
[2019-08-30] MEDS: PHENobarbital 20 MG/5 ML UNIT-DOSE CUP NGT SCH ×2 (10:17→22:55)
[2019-08-30] MEDS: POTASSIUM CHLORIDE ORAL LIQUID 20 MEQ/15 ML GT SCH ×2 (10:18→22:55)
[2019-08-30] MEDS: Lacosamide 50 MG/5 ML ORAL SOLUTION UNIT CUPS PO SCH ×2 (10:18→22:55)
[2019-08-30] MEDS: levETIRAcetam 500 MG/5 ML ORAL SOLUTION (UNIT-DOSE CUPS) NGT SCH ×2 (10:19→22:55)
[2019-08-30] MEDS: AMINO ACIDS/PROTEIN HYDROLYS 30 ML LIQUID.PKT GT SCH ×2 (10:19→18:34)
[2019-08-30] MEDS: ENOXAPARIN NA (PORCINE) 40 MG/0.4 ML DISP.SYRIN SQ SCH (10:19)
[2019-08-30] MEDS: NYSTATIN POWDER 100,000 UNITS/GM - 15 GM TOPICAL POWDER TP SCH ×2 (10:20→22:56)
[2019-08-30] MEDS: FAMOTIDINE 40 MG/5 ML ORAL SUSPENSION NGT SCH ×2 (10:21→22:57)
[2019-08-30] MEDS: CARVEDILOL 6.25 MG TABLET (FP) PO SCH ×2 (10:21→22:56)
[2019-08-30] MEDS: CHOLECALCIFEROL (VIT D3) 400 UNIT (10 MCG) TABLET NR SCH (10:22)
[2019-08-30] MEDS: ASCORBIC ACID 500 MG/5 ML UNIT DOSE CUP GT SCH (10:22)
[2019-08-30] MEDS: ZINC SULFATE 220 MG CAPSULE (FP) GT SCH ×2 (10:23→22:56)
[2019-08-30] MEDS: QUEtiapine FUMARATE 25 MG TABLET PO SCH (10:24)
--- NOTE | 2019-08-30 10:36 | PN ---
Progress Note (short form) - Note Progress Note: No new change still on ventilator alert awake but no response. Vital Signs Period Temp Pulse Resp BP Sys/Ortiz Pulse Ox Last 24 Hr 98.5 F-99.4 F 85-98 20-32 111-130/67-89 99-100 Exam unchanged Gen: trach in place, tachypnic, nonverbal; follows commands HEENT: NCAT, moist membranes Neck: trach in place Cardio: tachycardic, regular, no mrg noted Pulm: cta b/l Abd: Soft, nondistended. Percutaneous G tube in place. CDI Ext: no richard CBC, BMP 08/29/19 07:36 08/29/19 07:36 ASSESSMENT/PLAN: 39 y/o M with PMH Mental Retardation and epilepsy who presented to ED initially with SOB and hypoxia requiring intubation, admitted to hospital for hypoxic re spiratory failure 2/2 to covid-19. Hospital course complicated by bacteremia, fungemia, MRSA PNA, now with recurrent fever. Acute Resp Failure 2/2 COVID-19 -s/p trach, convalescent plasma, tocilizumab -on AC vent settings. Weaning as tolerated -Pulm on board Sepsis. Febrile this morning -persistent leukocytosis - Continue off the antibiotic as per ID Transaminitis -persistent since admission -Will watch Tachycardia -c/w Coreg -c/w low-dose seroquel to treat potential contribution of anxiety Epilepsy -c/w lorazepam prn, leviteracitam, phenobarbitol, lacosamide, topiramate DVT ppx -enoxaparin 40 Visit type - Emergency Visit Emergency Visit: Yes ED Registration Date: 06/22/19 Care time: The patient presented to the Emergency Department on the above date and was hospitalized for further evaluation of their emergent condition. - New Patient This patient is new to me today: No - Critical Care Critical Care patient: No - Discharge Referral Referred to [facility] No
--- NOTE | 2019-08-30 11:55 | PN ---
Progress Note (short form) - Note Progress Note: PULMONARY NAD on AC Mode of vent. Intermittent fever. No acute events overnight. Intermittent fevers Gen: trached & vented, awake Heart: RRR Lung: decreased breath sounds at the bases Abd: soft, nontender Ext: + edema LABS/MEDS/NOTES REVIEWED ASSESSMENT AND PLAN: Acute Hypoxic and Hypercapneic Respiratory Failure COVID19 Pneumonia E Coli Pneumonia Fungenmia Bacteremia Septic Shock Seizure Disorder Mental Retardation - AC Mode of vent - Off ABX per ID - continue antiepileptics - monitor urine output, creatinine - low tidal volume ventilation - titrate FiO2, PEEP to keep SpO2 >90% - spontaeneous breathing trials as tolerated - enteral feeds: PEG insertion once stable - DVT/GI prophylaxis Avery WISEMAN MD
--- NOTE | 2019-08-30 14:11 | PN ---
Progress Note, Physician History of Present Illness: Pt seen and examined at bedside. He appears comfortable. - Current Medication List Current Medications: Active Medications Acetaminophen (Tylenol -) 650 mg PO Q6H PRN PRN Reason: Fever Or Pain Last Admin: 08/28/19 06:23 Dose: 650 mg Documented by: Albuterol/Ipratropium (Duoneb -) 1 amp NEB Q6H PRN PRN Reason: SHORTNESS OF BREATH Last Admin: 08/27/19 04:30 Dose: 1 amp Documented by: Amino Acids (Prosource No Carb Liquid Pkt) 30 ml GT BID@0800,1730 [facility] Last Admin: 08/30/19 10:19 Dose: 30 ml Documented by: Artificial Tears (Artificial Tears) 1 drop OU Q12H PRN PRN Reason: DRY EYES Last Admin: 08/10/19 10:43 Dose: 1 drop Documented by: Ascorbic Acid (Vitamin C Oral Solution -) 500 mg GT DAILY [facility] Last Admin: 08/30/19 10:22 Dose: 500 mg Documented by: Carvedilol (Coreg -) 6.25 mg PO BID [facility] Last Admin: 08/30/19 10:21 Dose: 6.25 mg Documented by: Cholecalciferol (Vitamin D3 -) 800 unit NR DAILY [facility] Last Admin: 08/30/19 10:22 Dose: 800 unit Documented by: Enoxaparin Sodium (Lovenox -) 40 mg SQ DAILY [facility] Last Admin: 08/30/19 10:19 Dose: 40 mg Documented by: Famotidine (Pepcid) 20 mg NGT BID [facility] Last Admin: 08/30/19 10:21 Dose: 20 mg Documented by: Lacosamide (Vimpat Liquid -) 200 mg PO BID [facility] Last Admin: 08/30/19 10:18 Dose: 200 mg Documented by: Levetiracetam (Keppra Oral Solution -) 1,000 mg NGT BID [facility] Last Admin: 08/30/19 10:19 Dose: 1,000 mg Documented by: Nystatin (Nystatin Oral Suspension -) 500,000 units PO Q6HPO PRN PRN Reason: ORAL PAIN/MOUTH SORES Nystatin (Nystop Powder -) 1 applic TP BID [facility] Last Admin: 08/30/19 10:20 Dose: 1 applic Documented by: Phenobarbital (Phenobarbital Liquid -) 60 mg NGT BID [facility] Last Admin: 08/30/19 10:17 Dose: 60 mg Documented by: Potassium Chloride (Potassium Chloride Oral Liquid) 40 meq GT BID [facility] Last Admin: 08/30/19 10:18 Dose: 40 meq Documented by: Quetiapine Fumarate (Seroquel -) 25 mg PO DAILY [facility] Last Admin: 08/30/19 10:24 Dose: 25 mg Documented by: Topiramate (Topamax -) 200 mg GT TID [facility] Last Admin: 08/30/19 13:33 Dose: 200 mg Documented by: Zinc Sulfate (Orazinc -) 220 mg GT BID [facility] Last Admin: 08/30/19 10:23 Dose: 220 mg Documented by: - Objective Vital Signs: Vital Signs Temperature 99.4 F 08/30/19 06:00 Pulse Rate 85 08/30/19 08:05 Respiratory Rate 28 H 08/30/19 11:47 Blood Pressure 111/74 08/30/19 06:00 O2 Sat by Pulse Oximetry (%) 100 08/30/19 11:47 Constitutional: Yes: Calm Eyes: Yes: Conjunctiva Clear HENT: Yes: Atraumatic Neck: Yes: Supple Cardiovascular: Yes: S1, S2 Respiratory: Yes: Mechanically Ventilated Gastrointestinal: Yes: Soft Genitourinary: Yes: Caceres Present, Incontinence Musculoskeletal: Yes: Muscle Weakness Edema: No Neurological: Yes: Other (awake) Labs: CBC, BMP 08/29/19 07:36 08/29/19 07:36 INR, PTT INR 1.20 (0.83-1.09) H 08/21/19 11:30 Problem List - Problems (1) Hypernatremia Code(s): E87.0 - HYPEROSMOLALITY AND HYPERNATREMIA (2) Hypokalemia Code(s): E87.6 - HYPOKALEMIA (3) Acute respiratory failure with hypoxia Code(s): J96.01 - ACUTE RESPIRATORY FAILURE WITH HYPOXIA (4) Bacteremia Code(s): R78.81 - BACTEREMIA Assessment/Plan Current Medications Generic Name Dose Route Start Last Admin Trade Name Freq PRN Reason Stop Dose Admin Acetaminophen 650 mg 08/21/19 13:08 08/28/19 06:23 Tylenol - PO 650 mg Q6H PRN Administration Fever Or Pain Albuterol/Ipratropium 1 amp 08/16/19 13:19 08/27/19 04:30 Duoneb - NEB 1 amp Q6H PRN Administration SHORTNESS OF BREATH Amino Acids 30 ml 08/09/19 08:00 08/30/19 10:19 Prosource No Carb Liquid Pkt GT 30 ml BID@0800,1730 TIKI Administration Artificial Tears 1 drop 08/08/19 18:05 08/10/19 10:43 Artificial Tears OU 1 drop Q12H PRN Administration DRY EYES Ascorbic Acid 500 mg 08/09/19 10:00 08/30/19 10:22 Vitamin C Oral Solution - GT 500 mg DAILY [facility]IKI Administration Carvedilol 6.25 mg 08/20/19 09:33 08/30/19 10:21 Coreg - PO 6.25 mg BID TIKI Administration Cholecalciferol 800 unit 08/09/19 10:00 08/30/19 10:22 Vitamin D3 - NR 800 unit DAILY [facility]IKI Administration Enoxaparin Sodium 40 mg 08/15/19 10:00 08/30/19 10:19 Lovenox - SQ 40 mg DAILY [facility]I Administration Famotidine 20 mg 08/28/19 22:00 08/30/19 10:21 Pepcid NGT 20 mg BID [facility]IKI Administration Lacosamide 200 mg 08/10/19 22:00 08/30/19 10:18 Vimpat Liquid - PO 200 mg BID [facility]IKI Administration Levetiracetam 1,000 mg 08/10/19 22:00 08/30/19 10:19 Keppra Oral Solution - NGT 1,000 mg BID TIKI Administration Nystatin 500,000 units 08/08/19 18:05 Nystatin Oral Suspension - PO Q6HPO PRN ORAL PAIN/MOUTH SORES Nystatin 1 applic 08/21/19 11:15 08/30/19 10:20 Nystop Powder - TP 1 applic BID [facility] Administration Phenobarbital 60 mg 08/10/19 22:00 08/30/19 10:17 Phenobarbital Liquid - NGT 60 mg BID TIKI Administration Potassium Chloride 40 meq 08/08/19 22:00 08/30/19 10:18 Potassium Chloride Oral Liquid GT 40 meq BID TIKI Administration Quetiapine Fumarate 25 mg 08/18/19 10:45 08/30/19 10:24 Seroquel - PO 25 mg DAILY [facility]IKI Administration Topiramate 200 mg 08/08/19 22:00 08/30/19 13:33 Topamax - GT 200 mg TID TIKI Administration Zinc Sulfate 220 mg 08/08/19 22:00 08/30/19 10:23 Orazinc - GT 220 mg BID [facility]IKI Administration Impression 1. hypokalemia 2. hypernatremia 3. resp failure 4. fungemia 5. covid 19 infection 6. ards 7. developemental delay 8. epilepsy 9. bactermia 10. resp acidosis with compensatory met alk Plan - check labs in am - monitor potassium - vent support - pt has been off of diuretics - weaning per pulmonary
[2019-08-31] MEDS: TOPIRAMATE 200 MG TABLET GT SCH ×3 (06:12→21:45)
--- NOTE | 2019-08-31 08:56 | PN ---
Teaching Attending Note Name of Resident: Tomi Moya ATTENDING PHYSICIAN STATEMENT I saw and evaluated the patient. I reviewed the resident's note and discussed the case with the resident. I agree with the resident's findings and plan as documented. SUBJECTIVE: OBJECTIVE: ASSESSMENT AND PLAN:
[2019-08-31 09:29] LABS: ALBUMIN 2.6 g/dl (3.4-5.0); BILIRUBIN,TOTAL 0.2 mg/dL (0.2-1); BLOOD UREA NITROGEN 12.6 mg/dL (7-18); CALCIUM 8.9 mg/dL (8.5-10.1); CREATININE 0.4 mg/dL (0.55-1.3); POTASSIUM 3.8 mmol/L (3.5-5.1); TOT PROT 6.1 g/dl (6.4-8.2)
[2019-08-31] MEDS ORDERED: PT OWN MED DRAWER 7, Y5N ONE (10:03)
[2019-08-31] MEDS: NYSTATIN POWDER 100,000 UNITS/GM - 15 GM TOPICAL POWDER TP SCH ×2 (10:10→21:42)
[2019-08-31] MEDS: ENOXAPARIN NA (PORCINE) 40 MG/0.4 ML DISP.SYRIN SQ SCH (10:10)
[2019-08-31] MEDS: levETIRAcetam 500 MG/5 ML ORAL SOLUTION (UNIT-DOSE CUPS) NGT SCH ×2 (10:10→21:42)
[2019-08-31] MEDS: CARVEDILOL 6.25 MG TABLET (FP) PO SCH ×2 (10:11→21:41)
[2019-08-31] MEDS: ZINC SULFATE 220 MG CAPSULE (FP) GT SCH ×2 (10:11→21:42)
[2019-08-31] MEDS: AMINO ACIDS/PROTEIN HYDROLYS 30 ML LIQUID.PKT GT SCH ×2 (10:11→18:13)
[2019-08-31] MEDS: FAMOTIDINE 40 MG/5 ML ORAL SUSPENSION NGT SCH ×2 (10:12→21:43)
[2019-08-31] MEDS: PHENobarbital 20 MG/5 ML UNIT-DOSE CUP NGT SCH ×2 (10:13→21:44)
[2019-08-31] MEDS: POTASSIUM CHLORIDE ORAL LIQUID 20 MEQ/15 ML GT SCH ×2 (10:13→21:44)
[2019-08-31] MEDS: CHOLECALCIFEROL (VIT D3) 400 UNIT (10 MCG) TABLET NR SCH (10:14)
[2019-08-31] MEDS: Lacosamide 50 MG/5 ML ORAL SOLUTION UNIT CUPS PO SCH ×2 (10:14→21:45)
[2019-08-31] MEDS: QUEtiapine FUMARATE 25 MG TABLET PO SCH (10:14)
[2019-08-31] MEDS: ASCORBIC ACID 500 MG/5 ML UNIT DOSE CUP GT SCH (10:14)
--- NOTE | 2019-08-31 10:17 | PN ---
Progress Note (short form) - Note Progress Note: PULMONARY Vented, awake. No fevers recorded. Placed on SIMV. Vital Signs Period Temp Pulse Resp BP Sys/Ortiz Pulse Ox Last 24 Hr 97.8 F-99.6 F 93-98 20-31 100-152/46-79 99-100 Gen: vented, awake Heart: tachycardic, regular Lung: decreased breath sounds at the bases Abd: soft, nontender Ext: no edema CBC, BMP 08/29/19 07:36 08/31/19 07:30 Active Medications Acetaminophen (Tylenol -) 650 mg PO Q6H PRN PRN Reason: Fever Or Pain Last Admin: 08/28/19 06:23 Dose: 650 mg Documented by: Albuterol/Ipratropium (Duoneb -) 1 amp NEB Q6H PRN PRN Reason: SHORTNESS OF BREATH Last Admin: 08/27/19 04:30 Dose: 1 amp Documented by: Amino Acids (Prosource No Carb Liquid Pkt) 30 ml GT BID@0800,1730 [facility] Last Admin: 08/31/19 10:11 Dose: 30 ml Documented by: Artificial Tears (Artificial Tears) 1 drop OU Q12H PRN PRN Reason: DRY EYES Last Admin: 08/10/19 10:43 Dose: 1 drop Documented by: Ascorbic Acid (Vitamin C Oral Solution -) 500 mg GT DAILY [facility] Last Admin: 08/31/19 10:14 Dose: 500 mg Documented by: Carvedilol (Coreg -) 6.25 mg PO BID [facility] Last Admin: 08/31/19 10:11 Dose: 6.25 mg Documented by: Cholecalciferol (Vitamin D3 -) 800 unit NR DAILY [facility] Last Admin: 08/31/19 10:14 Dose: 800 unit Documented by: Enoxaparin Sodium (Lovenox -) 40 mg SQ DAILY [facility] Last Admin: 08/31/19 10:10 Dose: 40 mg Documented by: Famotidine (Pepcid) 20 mg NGT BID [facility] Last Admin: 08/31/19 10:12 Dose: 20 mg Documented by: Lacosamide (Vimpat Liquid -) 200 mg PO BID [facility] Last Admin: 08/31/19 10:14 Dose: 200 mg Documented by: Levetiracetam (Keppra Oral Solution -) 1,000 mg NGT BID [facility] Last Admin: 08/31/19 10:10 Dose: 1,000 mg Documented by: Nystatin (Nystatin Oral Suspension -) 500,000 units PO Q6HPO PRN PRN Reason: ORAL PAIN/MOUTH SORES Nystatin (Nystop Powder -) 1 applic TP BID [facility] Last Admin: 08/31/19 10:10 Dose: 1 applic Documented by: Phenobarbital (Phenobarbital Liquid -) 60 mg NGT BID [facility] Last Admin: 08/31/19 10:13 Dose: 60 mg Documented by: Potassium Chloride (Potassium Chloride Oral Liquid) 40 meq GT BID [facility] Last Admin: 08/31/19 10:13 Dose: 40 meq Documented by: Quetiapine Fumarate (Seroquel -) 25 mg PO DAILY [facility] Last Admin: 08/31/19 10:14 Dose: 25 mg Documented by: Topiramate (Topamax -) 200 mg GT TID [facility] Last Admin: 08/31/19 06:12 Dose: 200 mg Documented by: Zinc Sulfate (Orazinc -) 220 mg GT BID [facility] Last Admin: 08/31/19 10:11 Dose: 220 mg Documented by: A/P Acute Hypoxic and Hypercapneic Respiratory Failure COVID19 Pneumonia E Coli Pneumonia Fungenmia Bacteremia Septic Shock Seizure Disorder Mental Retardation - completed antibiotics - continue antiepileptics - monitor urine output, creatinine - spontaeneous breathing trials as tolerated - enteral feeds - DVT/GI prophylaxis
--- NOTE | 2019-08-31 11:55 | PN ---
Physical Exam: SUBJECTIVE: Patient seen and examined at bedside. OBJECTIVE: Vital Signs Period Temp Pulse Resp BP Sys/Ortiz Pulse Ox Last 24 Hr 97.8 F-99.6 F 93-98 20-31 100-152/46-79 99-100 Exam unchanged Gen: trach in place, tachypnic, nonverbal; follows commands HEENT: NCAT, moist membranes Neck: trach in place Cardio: tachycardic, regular, no mrg noted Pulm: cta b/l Abd: Soft, nondistended. Percutaneous G tube in place. CDI Ext: no edema Laboratory Results - last 24 hr 08/31/19 07:30 Sodium 144 Potassium 3.8 Chloride 112 H Carbon Dioxide 21 Anion Gap 11 BUN 12.6 Creatinine 0.4 L Est GFR (CKD-EPI)AfAm 174.63 Est GFR (CKD-EPI)NonAf 150.67 Random Glucose 112 H Calcium 8.9 Total Bilirubin 0.2 AST 58 H ALT 122 H Alkaline Phosphatase 142 H Total Protein 6.1 L Albumin 2.6 L Active Medications Generic Name Dose Route Start Last Admin Trade Name Freq PRN Reason Stop Dose Admin Acetaminophen 650 mg 08/21/19 13:08 08/28/19 06:23 Tylenol - PO 650 mg Q6H PRN Administration Fever Or Pain Albuterol/Ipratropium 1 amp 08/16/19 13:19 08/27/19 04:30 Duoneb - NEB 1 amp Q6H PRN Administration SHORTNESS OF BREATH Amino Acids 30 ml 08/09/19 08:00 08/31/19 10:11 Prosource No Carb Liquid Pkt GT 30 ml BID@0800,1730 TIKI Administration Artificial Tears 1 drop 08/08/19 18:05 08/10/19 10:43 Artificial Tears OU 1 drop Q12H PRN Administration DRY EYES Ascorbic Acid 500 mg 08/09/19 10:00 08/31/19 10:14 Vitamin C Oral Solution - GT 500 mg DAILY [facility] Administration Carvedilol 6.25 mg 08/20/19 09:33 08/31/19 10:11 Coreg - PO 6.25 mg BID TIKI Administration Cholecalciferol 800 unit 08/09/19 10:00 08/31/19 10:14 Vitamin D3 - NR 800 unit DAILY [facility] Administration Enoxaparin Sodium 40 mg 08/15/19 10:00 08/31/19 10:10 Lovenox - SQ 40 mg DAILY [facility] Administration Famotidine 20 mg 08/28/19 22:00 08/31/19 10:12 Pepcid NGT 20 mg BID [facility]IKI Administration Lacosamide 200 mg 08/10/19 22:00 08/31/19 10:14 Vimpat Liquid - PO 200 mg BID [facility]I Administration Levetiracetam 1,000 mg 08/10/19 22:00 08/31/19 10:10 Keppra Oral Solution - NGT 1,000 mg BID [facility]IKI Administration Nystatin 500,000 units 08/08/19 18:05 Nystatin Oral Suspension - PO Q6HPO PRN ORAL PAIN/MOUTH SORES Nystatin 1 applic 08/21/19 11:15 08/31/19 10:10 Nystop Powder - TP 1 applic BID [facility]IKI Administration Phenobarbital 60 mg 08/10/19 22:00 08/31/19 10:13 Phenobarbital Liquid - NGT 60 mg BID [facility]IKI Administration Potassium Chloride 40 meq 08/08/19 22:00 08/31/19 10:13 Potassium Chloride Oral Liquid GT 40 meq BID [facility]IKI Administration Quetiapine Fumarate 25 mg 08/18/19 10:45 08/31/19 10:14 Seroquel - PO 25 mg DAILY [facility] Administration Topiramate 200 mg 08/08/19 22:00 08/31/19 06:12 Topamax - GT 200 mg TID [facility]I Administration Zinc Sulfate 220 mg 08/08/19 22:00 08/31/19 10:11 Orazinc - GT 220 mg BID [facility]I Administration ASSESSMENT/PLAN: 39 y/o M with H Mental Retardation and epilepsy who presented to ED initially with SOB and hypoxia requiring intubation, admitted to hospital for hypoxic respiratory failure 2/2 to covid-19. Hospital course complicated by bacteremia, fungemia, MRSA PNA, now with recurrent fever. Acute Resp Failure 2/2 COVID-19 -s/p trach, convalescent plasma, tocilizumab -on AC vent settings. Weaning as tolerated -Pulm on board Sepsis. Afebrile -persistent leukocytosis - improved -Sputum Cx (08/21/2019) pos for MRSA, Dapto sensitive and E. coli, carbapenem sensitive -ID on board. F/u Recs. Presently observing off Abx -Nephro on board Transaminitis -persistent since admission -as of yet, no clear source identified -per GI, pt will potentially require a biopsy Tachycardia -c/w Coreg -c/w low-dose seroquel to treat potential contribution of anxiety Epilepsy -c/w lorazepam prn, leviteracitam, phenobarbitol, lacosamide, topiramate DVT ppx -enoxaparin 40 Visit type - Emergency Visit Emergency Visit: No - New Patient This patient is new to me today: No - Critical Care Critical Care patient: No ATTENDING PHYSICIAN STATEMENT I saw and evaluated the patient. I reviewed the resident's note and discussed the case with the resident. I agree with the resident's findings and plan as documented. SUBJECTIVE: OBJECTIVE: ASSESSMENT AND PLAN:
--- NOTE | 2019-08-31 11:59 | PN ---
Progress Note (short form) - Note Progress Note: trach to vent afebrile since 08/27 alert Vital Signs Period Temp Pulse Resp BP Sys/Ortiz Pulse Ox Last 24 Hr 97.8 F-99.6 F 93-98 20-31 100-152/46-79 99-100 cor-rrr llungs clear abd soft,nt +GT ext no edema CBC, BMP 08/29/19 07:36 08/31/19 07:30 Microbiology 08/26/19 11:05 Blood Culture - Final Blood - Peripheral Venous NO GROWTH AFTER 5 DAYS INCUBATION 08/26/19 11:05 Blood Culture - Final Blood - Peripheral Venous NO GROWTH AFTER 5 DAYS INCUBATION 08/26/19 20:40 Gram Stain - Final Sputum - Endotrachea Suction/Ventilator Sputum Culture - Final S Aureus Escherichia Coli covid pcr negative quantiferon negative strongyloides ab negative sputum afb negative times 3 imp/reccd fevers resolved abn lfts persist- hep serology pending cmv pcr ordered sputum afb negative chronic resp failure s/p covid 19 -plasma, tocilizumab history of resistant organisms, MRSA, ecoli ESBL -contact isolation to continue Problem List - Problems (1) Suspected COVID-19 virus infection Code(s): R68.89 - OTHER GENERAL SYMPTOMS AND SIGNS (2) Acute respiratory failure with hypoxia Code(s): J96.01 - ACUTE RESPIRATORY FAILURE WITH HYPOXIA (3) Bacteremia Code(s): R78.81 - BACTEREMIA
--- NOTE | 2019-08-31 12:05 | PN ---
Progress Note, SPECTROGRAPHIC ANALYST - Note Progress Note: Per ID-fevers resolved abn lfts persist- hep serology pending cmv pcr ordered sputum afb negative Per CCC-Pt has been trached and is currently on a ventilator. Pt will need to be weaned off the ventilator and PT in order to be dc, but pt remains acute at this time. PMV assessment when medically stable for communication and to facilitate weaning from ventilator/ peg
--- NOTE | 2019-08-31 16:42 | PN ---
Progress Note, Physician History of Present Illness: Pt seen and examined at bedside. He is awake and appears comfortable. - Current Medication List Current Medications: Active Medications Acetaminophen (Tylenol -) 650 mg PO Q6H PRN PRN Reason: Fever Or Pain Last Admin: 08/28/19 06:23 Dose: 650 mg Documented by: Albuterol/Ipratropium (Duoneb -) 1 amp NEB Q6H PRN PRN Reason: SHORTNESS OF BREATH Last Admin: 08/27/19 04:30 Dose: 1 amp Documented by: Amino Acids (Prosource No Carb Liquid Pkt) 30 ml GT BID@0800,1730 [facility] Last Admin: 08/31/19 10:11 Dose: 30 ml Documented by: Artificial Tears (Artificial Tears) 1 drop OU Q12H PRN PRN Reason: DRY EYES Last Admin: 08/10/19 10:43 Dose: 1 drop Documented by: Ascorbic Acid (Vitamin C Oral Solution -) 500 mg GT DAILY [facility] Last Admin: 08/31/19 10:14 Dose: 500 mg Documented by: Carvedilol (Coreg -) 6.25 mg PO BID [facility] Last Admin: 08/31/19 10:11 Dose: 6.25 mg Documented by: Cholecalciferol (Vitamin D3 -) 800 unit NR DAILY [facility] Last Admin: 08/31/19 10:14 Dose: 800 unit Documented by: Enoxaparin Sodium (Lovenox -) 40 mg SQ DAILY [facility] Last Admin: 08/31/19 10:10 Dose: 40 mg Documented by: Famotidine (Pepcid) 20 mg NGT BID [facility] Last Admin: 08/31/19 10:12 Dose: 20 mg Documented by: Lacosamide (Vimpat Liquid -) 200 mg PO BID [facility] Last Admin: 08/31/19 10:14 Dose: 200 mg Documented by: Levetiracetam (Keppra Oral Solution -) 1,000 mg NGT BID [facility] Last Admin: 08/31/19 10:10 Dose: 1,000 mg Documented by: Nystatin (Nystatin Oral Suspension -) 500,000 units PO Q6HPO PRN PRN Reason: ORAL PAIN/MOUTH SORES Nystatin (Nystop Powder -) 1 applic TP BID [facility] Last Admin: 08/31/19 10:10 Dose: 1 applic Documented by: Phenobarbital (Phenobarbital Liquid -) 60 mg NGT BID [facility] Last Admin: 08/31/19 10:13 Dose: 60 mg Documented by: Potassium Chloride (Potassium Chloride Oral Liquid) 40 meq GT BID [facility] Last Admin: 08/31/19 10:13 Dose: 40 meq Documented by: Quetiapine Fumarate (Seroquel -) 25 mg PO DAILY [facility] Last Admin: 08/31/19 10:14 Dose: 25 mg Documented by: Topiramate (Topamax -) 200 mg GT TID [facility] Last Admin: 08/31/19 14:10 Dose: 200 mg Documented by: Zinc Sulfate (Orazinc -) 220 mg GT BID [facility] Last Admin: 08/31/19 10:11 Dose: 220 mg Documented by: - Objective Vital Signs: Vital Signs Temperature 99.5 F 08/31/19 14:00 Pulse Rate 103 H 08/31/19 14:00 Respiratory Rate 31 H 08/31/19 15:25 Blood Pressure 130/76 08/31/19 14:00 O2 Sat by Pulse Oximetry (%) 100 08/31/19 15:26 Constitutional: Yes: Calm Eyes: Yes: Conjunctiva Clear HENT: Yes: Atraumatic Cardiovascular: Yes: S1, S2 Respiratory: Yes: Mechanically Ventilated Gastrointestinal: Yes: Soft Genitourinary: Yes: WNL Edema: No Integumentary: Yes: WNL Neurological: Yes: Other (awake) Labs: CBC, BMP 08/29/19 07:36 08/31/19 07:30 INR, PTT INR 1.20 (0.83-1.09) H 08/21/19 11:30 Problem List - Problems (1) Hypernatremia Code(s): E87.0 - HYPEROSMOLALITY AND HYPERNATREMIA (2) Hypokalemia Code(s): E87.6 - HYPOKALEMIA (3) Acute respiratory failure with hypoxia Code(s): J96.01 - ACUTE RESPIRATORY FAILURE WITH HYPOXIA (4) Bacteremia Code(s): R78.81 - BACTEREMIA Assessment/Plan Current Medications Generic Name Dose Route Start Last Admin Trade Name Freq PRN Reason Stop Dose Admin Acetaminophen 650 mg 08/21/19 13:08 08/28/19 06:23 Tylenol - PO 650 mg Q6H PRN Administration Fever Or Pain Albuterol/Ipratropium 1 amp 08/16/19 13:19 08/27/19 04:30 Duoneb - NEB 1 amp Q6H PRN Administration SHORTNESS OF BREATH Amino Acids 30 ml 08/09/19 08:00 08/31/19 10:11 Prosource No Carb Liquid Pkt GT 30 ml BID@0800,1730 TIKI Administration Artificial Tears 1 drop 08/08/19 18:05 08/10/19 10:43 Artificial Tears OU 1 drop Q12H PRN Administration DRY EYES Ascorbic Acid 500 mg 08/09/19 10:00 08/31/19 10:14 Vitamin C Oral Solution - GT 500 mg DAILY [facility]IKI Administration Carvedilol 6.25 mg 08/20/19 09:33 08/31/19 10:11 Coreg - PO 6.25 mg BID TIKI Administration Cholecalciferol 800 unit 08/09/19 10:00 08/31/19 10:14 Vitamin D3 - NR 800 unit DAILY TIKI Administration Enoxaparin Sodium 40 mg 08/15/19 10:00 08/31/19 10:10 Lovenox - SQ 40 mg DAILY [facility]IKI Administration Famotidine 20 mg 08/28/19 22:00 08/31/19 10:12 Pepcid NGT 20 mg BID TIKI Administration Lacosamide 200 mg 08/10/19 22:00 08/31/19 10:14 Vimpat Liquid - PO 200 mg BID TIKI Administration Levetiracetam 1,000 mg 08/10/19 22:00 08/31/19 10:10 Keppra Oral Solution - NGT 1,000 mg BID TIKI Administration Nystatin 500,000 units 08/08/19 18:05 Nystatin Oral Suspension - PO Q6HPO PRN ORAL PAIN/MOUTH SORES Nystatin 1 applic 08/21/19 11:15 08/31/19 10:10 Nystop Powder - TP 1 applic BID TIKI Administration Phenobarbital 60 mg 08/10/19 22:00 08/31/19 10:13 Phenobarbital Liquid - NGT 60 mg BID TIKI Administration Potassium Chloride 40 meq 08/08/19 22:00 08/31/19 10:13 Potassium Chloride Oral Liquid GT 40 meq BID TIKI Administration Quetiapine Fumarate 25 mg 08/18/19 10:45 08/31/19 10:14 Seroquel - PO 25 mg DAILY [facility]IKI Administration Topiramate 200 mg 08/08/19 22:00 08/31/19 14:10 Topamax - GT 200 mg TID TIKI Administration Zinc Sulfate 220 mg 08/08/19 22:00 08/31/19 10:11 Orazinc - GT 220 mg BID TIKI Administration Impression 1. hypokalemia 2. hypernatremia 3. resp failure 4. fungemia 5. covid 19 infection 6. ards 7. developemental delay 8. epilepsy 9. bactermia 10. resp acidosis with compensatory met alk Plan - sodium stable - volume status stable - cont current management - vent support - will follow prn
[2019-08-31 17:07] LABS: HEP B CORE AB, TOT Negative (Negative)
[2019-09-01] MEDS: TOPIRAMATE 200 MG TABLET GT SCH ×3 (05:40→21:46)
--- NOTE | 2019-09-01 07:20 | PN ---
Progress Note, Physician History of Present Illness: pulmonary alert,comfortable on vent support IMV with PS tolerating well - Current Medication List Current Medications: Active Medications Acetaminophen (Tylenol -) 650 mg PO Q6H PRN PRN Reason: Fever Or Pain Last Admin: 08/28/19 06:23 Dose: 650 mg Documented by: Albuterol/Ipratropium (Duoneb -) 1 amp NEB Q6H PRN PRN Reason: SHORTNESS OF BREATH Last Admin: 08/27/19 04:30 Dose: 1 amp Documented by: Amino Acids (Prosource No Carb Liquid Pkt) 30 ml GT BID@0800,1730 COUNTS INCLUDE 234 BEDS AT THE [facility] Last Admin: 08/31/19 18:13 Dose: 30 ml Documented by: Artificial Tears (Artificial Tears) 1 drop OU Q12H PRN PRN Reason: DRY EYES Last Admin: 08/10/19 10:43 Dose: 1 drop Documented by: Ascorbic Acid (Vitamin C Oral Solution -) 500 mg GT DAILY COUNTS INCLUDE 234 BEDS AT THE [facility] Last Admin: 08/31/19 10:14 Dose: 500 mg Documented by: Carvedilol (Coreg -) 6.25 mg PO BID COUNTS INCLUDE 234 BEDS AT THE [facility] Last Admin: 08/31/19 21:41 Dose: 6.25 mg Documented by: Cholecalciferol (Vitamin D3 -) 800 unit NR DAILY COUNTS INCLUDE 234 BEDS AT THE [facility] Last Admin: 08/31/19 10:14 Dose: 800 unit Documented by: Enoxaparin Sodium (Lovenox -) 40 mg SQ DAILY COUNTS INCLUDE 234 BEDS AT THE [facility] Last Admin: 08/31/19 10:10 Dose: 40 mg Documented by: Famotidine (Pepcid) 20 mg NGT BID COUNTS INCLUDE 234 BEDS AT THE [facility] Last Admin: 08/31/19 21:43 Dose: 20 mg Documented by: Lacosamide (Vimpat Liquid -) 200 mg PO BID COUNTS INCLUDE 234 BEDS AT THE [facility] Last Admin: 08/31/19 21:45 Dose: 200 mg Documented by: Levetiracetam (Keppra Oral Solution -) 1,000 mg NGT BID COUNTS INCLUDE 234 BEDS AT THE [facility] Last Admin: 08/31/19 21:42 Dose: 1,000 mg Documented by: Nystatin (Nystatin Oral Suspension -) 500,000 units PO Q6HPO PRN PRN Reason: ORAL PAIN/MOUTH SORES Nystatin (Nystop Powder -) 1 applic TP BID COUNTS INCLUDE 234 BEDS AT THE [facility] Last Admin: 08/31/19 21:42 Dose: 1 applic Documented by: Phenobarbital (Phenobarbital Liquid -) 60 mg NGT BID COUNTS INCLUDE 234 BEDS AT THE [facility] Last Admin: 08/31/19 21:44 Dose: 60 mg Documented by: Potassium Chloride (Potassium Chloride Oral Liquid) 40 meq GT BID COUNTS INCLUDE 234 BEDS AT THE [facility] Last Admin: 08/31/19 21:44 Dose: 40 meq Documented by: Quetiapine Fumarate (Seroquel -) 25 mg PO DAILY COUNTS INCLUDE 234 BEDS AT THE [facility] Last Admin: 08/31/19 10:14 Dose: 25 mg Documented by: Topiramate (Topamax -) 200 mg GT TID COUNTS INCLUDE 234 BEDS AT THE [facility] Last Admin: 09/01/19 05:40 Dose: 200 mg Documented by: Zinc Sulfate (Orazinc -) 220 mg GT BID COUNTS INCLUDE 234 BEDS AT THE [facility] Last Admin: 08/31/19 21:42 Dose: 220 mg Documented by: - Objective Vital Signs: Vital Signs Temperature 97.9 F 09/01/19 06:00 Pulse Rate 99 H 09/01/19 06:00 Respiratory Rate 21 H 09/01/19 06:00 Blood Pressure 131/69 09/01/19 06:00 O2 Sat by Pulse Oximetry (%) 100 08/31/19 21:00 Constitutional: Yes: Well Nourished, Calm Eyes: Yes: WNL HENT: Yes: WNL Neck: Yes: Supple (trach) Cardiovascular: Yes: Regular Rate and Rhythm, S1, S2 Respiratory: Yes: Rhonchi (few rhonchi) Gastrointestinal: Yes: Normal Bowel Sounds, Soft Extremities: Yes: WNL Edema: No Labs: CBC, BMP Problem List - Problems (1) COVID-19 Code(s): U07.1 - COVID POSITIVE (2) COVID-19 Code(s): U07.1 - COVID POSITIVE (3) Acute respiratory failure with hypoxia Code(s): J96.01 - ACUTE RESPIRATORY FAILURE WITH HYPOXIA (4) Seizure disorder Code(s): G40.909 - EPILEPSY, UNSP, NOT INTRACTABLE, WITHOUT STATUS EPILEPTICUS (5) Status epilepticus Code(s): G40.901 - EPILEPSY, UNSP, NOT INTRACTABLE, WITH STATUS EPILEPTICUS Assessment/Plan ASSESSMENT AND PLAN: Acute Hypoxic and Hypercapneic Respiratory Failure COVID19 Pneumonia E Coli Pneumonia Fungenmia Bacteremia Septic Shock Seizure Disorder Mental Retardation ABNORMAL LFTS fever - Ativan PRN - antiepileptics - monitor urine output, creatinine - low tidal volume ventilation - titrate FiO2, PEEP to keep SpO2 >90% - spontaneous breathing trials as tolerated - DVT/GI prophylaxis - inhaled bronchodilators - PMV as tolerated Dr MARTINEZ
[2019-09-01] MEDS ORDERED: PT OWN MED DRAWER 7, Y5N ONE ×2 (09:09→13:25)
[2019-09-01] MEDS: CARVEDILOL 6.25 MG TABLET (FP) PO SCH ×2 (09:13→21:46)
[2019-09-01] MEDS: AMINO ACIDS/PROTEIN HYDROLYS 30 ML LIQUID.PKT GT SCH ×2 (09:13→18:01)
[2019-09-01] MEDS: Lacosamide 50 MG/5 ML ORAL SOLUTION UNIT CUPS PO SCH ×2 (09:14→21:49)
[2019-09-01] MEDS: levETIRAcetam 500 MG/5 ML ORAL SOLUTION (UNIT-DOSE CUPS) NGT SCH ×2 (09:14→21:48)
[2019-09-01] MEDS: ASCORBIC ACID 500 MG/5 ML UNIT DOSE CUP GT SCH (09:14)
[2019-09-01] MEDS: ENOXAPARIN NA (PORCINE) 40 MG/0.4 ML DISP.SYRIN SQ SCH (09:14)
[2019-09-01] MEDS: PHENobarbital 20 MG/5 ML UNIT-DOSE CUP NGT SCH ×2 (09:15→21:47)
[2019-09-01] MEDS: FAMOTIDINE 40 MG/5 ML ORAL SUSPENSION NGT SCH ×2 (09:15→21:47)
[2019-09-01] MEDS: NYSTATIN POWDER 100,000 UNITS/GM - 15 GM TOPICAL POWDER TP SCH ×2 (09:16→21:51)
[2019-09-01] MEDS: QUEtiapine FUMARATE 25 MG TABLET PO SCH (09:16)
[2019-09-01] MEDS: ZINC SULFATE 220 MG CAPSULE (FP) GT SCH ×2 (09:16→21:46)
[2019-09-01] MEDS: POTASSIUM CHLORIDE ORAL LIQUID 20 MEQ/15 ML GT SCH ×2 (09:17→21:48)
[2019-09-01] MEDS: CHOLECALCIFEROL (VIT D3) 400 UNIT (10 MCG) TABLET NR SCH (09:20)
--- NOTE | 2019-09-01 10:56 | PN ---
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 - Note Progress Note: Selected Entries 08/31/19 08/31/19 08/31/19 00:01 02:00 04:10 Lunch Total Score - Skin Risk Assessment Temperature 98.5 F Pulse Rate 98 H Respiratory 29 H 20 24 H Rate Blood Pressure 126/78 O2 Sat by Pulse Oximetry (%) Oxygen Delivery Method Fraction of Inspired Oxygen (FIO2) 08/31/19 08/31/19 08/31/19 06:00 08:14 10:00 Lunch Total Score - 12 Skin Risk Assessment Temperature 98.5 F 97.8 F Pulse Rate 98 H 94 H 95 H Respiratory 20 31 H 20 Rate Blood Pressure 100/46 L 116/81 O2 Sat by Pulse Oximetry (%) Oxygen Delivery Method Fraction of Inspired Oxygen (FIO2) 08/31/19 08/31/19 08/31/19 11:40 14:00 15:25 Lunch NPO Total Score - Skin Risk Assessment Temperature 99.5 F Pulse Rate 103 H Respiratory 26 H 27 H 31 H Rate Blood Pressure 130/76 O2 Sat by Pulse Oximetry (%) Oxygen Delivery Method Fraction of Inspired Oxygen (FIO2) 08/31/19 08/31/19 08/31/19 17:25 19:30 22:00 Lunch Total Score - 12 Skin Risk Assessment Temperature 98.3 F 98.1 F Pulse Rate 94 H 102 H Respiratory 21 H 31 H 26 H Rate Blood Pressure 125/84 118/75 O2 Sat by Pulse Oximetry (%) Oxygen Delivery Method Fraction of Inspired Oxygen (FIO2) 08/31/19 09/01/19 09/01/19 23:46 02:00 04:00 Lunch Total Score - Skin Risk Assessment Temperature 99.5 F Pulse Rate 100 H Respiratory 31 H 21 H 26 H Rate Blood Pressure 123/73 O2 Sat by Pulse Oximetry (%) Oxygen Delivery Method Fraction of 40 Inspired Oxygen (FIO2) 09/01/19 09/01/19 06:00 08:25 Lunch Total Score - Skin Risk Assessment Temperature 97.9 F Pulse Rate 99 H 104 H Respiratory 21 H 30 H Rate Blood Pressure 131/69 O2 Sat by Pulse 100 Oximetry (%) Oxygen Delivery Mechanical Method Ventilator Fraction of 40 Inspired Oxygen (FIO2) Per CCC-Pt has been trached and is currently on a ventilator. Pt will need to be weaned off the ventilator and PT in order to be dc, but pt remains acute at this time. PMV assessment when medically stable for communication and to facilitate weaning from ventilator/ peg Communicated with Dr. Cervantes. To assess PMV tolerance today.
--- NOTE | 2019-09-01 12:03 | PN ---
Physical Exam: SUBJECTIVE: Patient seen and examined at bedside. No acute events. OBJECTIVE: Vital Signs Period Temp Pulse Resp BP Sys/Ortiz Pulse Ox Last 24 Hr 97.9 F-99.5 F 94-104 21-31 118-131/69-84 100-100 Exam unchanged Gen: trach in place, tachypnic, nonverbal; follows commands HEENT: NCAT, moist membranes Neck: trach in place Cardio: tachycardic, regular, no mrg noted Pulm: cta b/l Abd: Soft, nondistended. Percutaneous G tube in place. CDI Ext: no edema Laboratory Results - last 24 hr 08/28/19 09:00 Hep A IgM Ab Confirm Negative Hepatitis A Ab Total Positive H Hep Bs Antigen Negative Hep Bs Antibody Non reactive Hep B Core Total Ab Negative Hep B Core IgM Ab Negative Hepatitis Be Antibody Negative Hepatitis Be Antigen Negative Active Medications Generic Name Dose Route Start Last Admin Trade Name Freq PRN Reason Stop Dose Admin Acetaminophen 650 mg 08/21/19 13:08 08/28/19 06:23 Tylenol - PO 650 mg Q6H PRN Administration Fever Or Pain Albuterol/Ipratropium 1 amp 08/16/19 13:19 08/27/19 04:30 Duoneb - NEB 1 amp Q6H PRN Administration SHORTNESS OF BREATH Amino Acids 30 ml 08/09/19 08:00 09/01/19 09:13 Prosource No Carb Liquid Pkt GT 30 ml BID@0800,1730 TIKI Administration Artificial Tears 1 drop 08/08/19 18:05 08/10/19 10:43 Artificial Tears OU 1 drop Q12H PRN Administration DRY EYES Ascorbic Acid 500 mg 08/09/19 10:00 09/01/19 09:14 Vitamin C Oral Solution - GT 500 mg DAILY TIKI Administration Carvedilol 6.25 mg 08/20/19 09:33 09/01/19 09:13 Coreg - PO 6.25 mg BID TIKI Administration Cholecalciferol 800 unit 08/09/19 10:00 09/01/19 09:20 Vitamin D3 - NR 800 unit DAILY TIKI Administration Enoxaparin Sodium 40 mg 08/15/19 10:00 09/01/19 09:14 Lovenox - SQ 40 mg DAILY TIKI Administration Famotidine 20 mg 08/28/19 22:00 06/30/20 09:15 Pepcid NGT 20 mg BID TIKI Administration Lacosamide 200 mg 08/10/19 22:00 09/01/19 09:14 Vimpat Liquid - PO 200 mg BID TIKI Administration Levetiracetam 1,000 mg 08/10/19 22:00 09/01/19 09:14 Keppra Oral Solution - NGT 1,000 mg BID TIKI Administration Nystatin 500,000 units 08/08/19 18:05 Nystatin Oral Suspension - PO Q6HPO PRN ORAL PAIN/MOUTH SORES Nystatin 1 applic 08/21/19 11:15 09/01/19 09:16 Nystop Powder - TP 1 applic BID TIKI Administration Phenobarbital 60 mg 08/10/19 22:00 09/01/19 09:15 Phenobarbital Liquid - NGT 60 mg BID TIKI Administration Potassium Chloride 40 meq 08/08/19 22:00 09/01/19 09:17 Potassium Chloride Oral Liquid GT 40 meq BID TIKI Administration Quetiapine Fumarate 25 mg 08/18/19 10:45 09/01/19 09:16 Seroquel - PO 25 mg DAILY TIKI Administration Topiramate 200 mg 08/08/19 22:00 09/01/19 05:40 Topamax - GT 200 mg TID TIKI Administration Zinc Sulfate 220 mg 08/08/19 22:00 09/01/19 09:16 Orazinc - GT 220 mg BID TIKI Administration ASSESSMENT/PLAN: 39 y/o M with PMH Mental Retardation and epilepsy who presented to ED initially with SOB and hypoxia requiring intubation, admitted to hospital for hypoxic respiratory failure 2/2 to [facility] Hospital course complicated by bacteremia, fungemia, MRSA PNA, now with recurrent fever. Acute Resp Failure 2/2 COVID-19 -s/p trach, convalescent plasma, tocilizumab -on AC vent settings. Weaning as tolerated -Pulm on board Sepsis. Afebrile -persistent leukocytosis - improved -Sputum Cx (08/21/2019) pos for MRSA, Dapto sensitive and E. coli, carbapenem sensitive -ID on board. F/u Recs. Presently observing off Abx -Nephro on board Transaminitis -persistent since admission -as of yet, no clear source identified -per GI, pt will potentially require a biopsy Tachycardia -c/w Coreg -c/w low-dose seroquel to treat potential contribution of anxiety Epilepsy -c/w lorazepam prn, leviteracitam, phenobarbitol, lacosamide, topiramate Visit type - Emergency Visit Emergency Visit: No - New Patient This patient is new to me today: No - Critical Care Critical Care patient: No ATTENDING PHYSICIAN STATEMENT I saw and evaluated the patient. I reviewed the resident's note and discussed the case with the resident. I agree with the resident's findings and plan as documented. SUBJECTIVE: OBJECTIVE: ASSESSMENT AND PLAN:
--- NOTE | 2019-09-01 13:23 | PN ---
Progress Note (short form) - Note Progress Note: Hepatitis serologies noted: Awaiting imaging of the liver as outlined in 08/27 GI note Problem List - Problems (1) Abnormal liver function tests Code(s): R94.5 - ABNORMAL RESULTS OF LIVER FUNCTION STUDIES
--- NOTE | 2019-09-01 13:29 | CONSULT ---
Passy-Ann Valve Eval - Assessment Prior to PMV Placement Patient and/or family educated re PMV: No Mental Status: Awake, Alert, Attempting to Communicate O2 Sat by Pulse Oximetry (%): 100 Secretions: Small Amount Patient on Ventilator: Yes Patient on Trach Collar: No Suctioned: Yes Cuff Status: Inflated Passy-Ann Valve in Place - Speech Characteristics Able to Phonate with PMV in place: Yes Voice Loudness: Normal Voice Pitch: Normal Voice Phonatory-based Quality: Normal Speech Pattern: Normal Speech Clarity: < 75% Nasal Resonance: Hypernasal Articulation: Imprecise - Assessment with PMV in Place O2 Sat by Pulse Oximetry (%): 100 Change in Mental Status with PMV in Place: No Able to Manage Secretions: Yes Length of time with PMV in place: 20 minutes Additional comments: Pt was able to tolerate the PMV quite well, initially coughing a little until he adjusted to cuff deflation and oral suctioning of small amount of secretions. Voice was strong and euphonic. Speech intelligibility milodly impaired, suspected as baseline with mild imprecision of articulation and mild hypernasality. Pt asked for water. O2 saturation remained at 100% with RR at 30. Pt appeared comfortable. Swallowing assessed with PMV in place. Mild difficulty with bilabial closure around spoon and cup with delayed oral transfer and swallow initiation. Swallow seemed fairly brisk once triggered. One instance of brief cough noted. Silent aspiration can not be r/o at bedside. - Recommendations Recommendations: PMV as tolerated, Remove PMV while sleeping, Monitor Pulse Ox PMV on, Other (USE PMV DAILY< TOLERATED INCREASING TIME ON PMV TO IMPROVE UPPER AIRWAY FUNCTION< SWALLOWING< COMMUNICATION AND SOCIALIZATION< AND TO CONTACT CENTER REPRESENTATIVE WEANING FROM VENTILATOR>)
--- NOTE | 2019-09-01 13:32 | PN ---
Progress Note, RAIL DIRECTOR - Note Progress Note: Pt successfully used PMV- Excellent potential for improved Swallowing function with PMV use and to wean from vent. REC-. USE PMV DAILY< TOLERATED INCREASING TIME ON PMV TO IMPROVE UPPER AIRWAY FUNCTION< SWALLOWING< COMMUNICATION AND SOCIALIZATION< AND TO EXPEDITE WEANING FROM VENTILATOR> MBS once using pmv for a couple of days
--- NOTE | 2019-09-01 19:32 | PN ---
Teaching Attending Note Name of Resident: Tomi Moya ATTENDING PHYSICIAN STATEMENT I saw and evaluated the patient. I reviewed the resident's note and discussed the case with the resident. I agree with the resident's findings and plan as documented. SUBJECTIVE: Patient seen and examined bedside, afebrile, off abx, s/p PEG. 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 Vital Signs - 24 hr 08/31/19 08/31/19 08/31/19 21:00 22:00 23:46 Temperature 98.1 F Pulse Rate 102 H Respiratory 26 H 31 H Rate Blood Pressure 118/75 O2 Sat by Pulse 100 Oximetry (%) 09/01/19 09/01/19 09/01/19 02:00 04:00 06:00 Temperature 99.5 F 97.9 F Pulse Rate 100 H 99 H Respiratory 21 H 26 H 21 H Rate Blood Pressure 123/73 131/69 O2 Sat by Pulse Oximetry (%) 09/01/19 09/01/19 09/01/19 08:25 09:00 10:00 Temperature 98.3 F Pulse Rate 104 H 105 H 105 H Respiratory 30 H 30 H 30 H Rate Blood Pressure 134/73 O2 Sat by Pulse 100 100 Oximetry (%) 09/01/19 09/01/19 09/01/19 11:45 13:00 13:11 Temperature Pulse Rate Respiratory 31 H 30 H Rate Blood Pressure O2 Sat by Pulse 100 100 100 Oximetry (%) 09/01/19 09/01/19 09/01/19 13:30 14:00 16:05 Temperature 98.5 F Pulse Rate 105 H Respiratory 32 H 30 H Rate Blood Pressure 120/76 O2 Sat by Pulse 100 100 Oximetry (%) 09/01/19 09/01/19 17:45 18:00 Temperature 99.5 F Pulse Rate 99 H Respiratory 30 H Rate Blood Pressure 128/81 O2 Sat by Pulse 100 Oximetry (%) Microbiology 08/26/19 11:05 Blood - Peripheral Venous Blood Culture - Final NO GROWTH AFTER 5 DAYS INCUBATION 08/26/19 11:05 Blood - Peripheral Venous Blood Culture - Final NO GROWTH AFTER 5 DAYS INCUBATION 08/26/19 20:40 Sputum - Endotrachea Suction/Ventilator Gram Stain - Final 08/26/19 20:40 Sputum - Endotrachea Suction/Ventilator Sputum Culture - Final S Aureus Escherichia Coli 08/26/19 19:15 Urine - Urine Caceres Urine Culture - Final NO GROWTH OBTAINED 08/26/19 22:15 Stool Cryptosporidium Antigen - Final 08/26/19 22:15 Stool Giardia Antigen (JASSON) - Final 08/26/19 12:10 Urine - Urine Caceres Legionella Antigen - Final 08/26/19 12:10 Urine - Urine Caceres Streptococcus pneumoniae Antigen (M - Final 08/20/19 20:20 Blood - Peripheral Venous Blood Culture - Final NO GROWTH AFTER 5 DAYS INCUBATION 08/20/19 20:20 Blood - Peripheral Venous Blood Culture - Final NO GROWTH AFTER 5 DAYS INCUBATION 08/21/19 03:17 Sputum - Endotrachea Suction/Ventilator AFB Smear Concentration - Final 08/21/19 03:17 Sputum - Endotrachea Suction/Ventilator Mycobacterial Culture - Preliminary 08/20/19 05:00 Sputum - Endotrachea Suction/Ventilator AFB Smear Concentration - Final 08/20/19 05:00 Sputum - Endotrachea Suction/Ventilator Mycobacterial Culture - Preliminary 08/21/19 03:17 Sputum - Endotrachea Suction/Ventilator Gram Stain - Final 08/21/19 03:17 Sputum - Endotrachea Suction/Ventilator Sputum Culture - Final S Aureus 08/17/19 02:00 Blood - Peripheral Venous Blood Culture - Final NO GROWTH AFTER 5 DAYS INCUBATION 08/17/19 02:00 Blood - Peripheral Venous Blood Culture - Final NO GROWTH AFTER 5 DAYS INCUBATION 08/20/19 19:30 Stool Clostridioides difficile Antigen - Final 08/20/19 19:30 Stool Clostridioides difficile Toxin Assay - Final 08/20/19 19:30 Urine For Antigen Detection Legionella Antigen - Final 08/20/19 19:30 Urine For Antigen Detection Streptococcus pneumoniae Antigen (M - Final 08/18/19 12:00 Sputum - Endotrachea Suction/Ventilator AFB Smear Concentration - Final 08/18/19 12:00 Sputum - Endotrachea Suction/Ventilator Mycobacterial Culture - Preliminary 08/17/19 11:35 Urine - Urine Caceres Urine Culture - Final NO GROWTH OBTAINED 08/12/19 13:10 Blood - Peripheral Venous Blood Culture - Final NO GROWTH AFTER 5 DAYS INCUBATION 08/12/19 13:00 Blood - Peripheral Venous Blood Culture - Final NO GROWTH AFTER 5 DAYS INCUBATION 08/14/19 14:50 Sputum - Endotrachea Suction/Ventilator Gram Stain - Final 08/14/19 14:50 Sputum - Endotrachea Suction/Ventilator Sputum Culture - Final NORMAL RESPIRATORY RICKY 08/14/19 14:49 Stool Clostridioides difficile Antigen - Final 08/14/19 14:49 Stool Clostridioides difficile Toxin Assay - Final 08/09/19 11:45 Blood - Peripheral Venous Blood Culture - Final NO GROWTH AFTER 5 DAYS INCUBATION 08/09/19 11:52 Blood - Peripheral Venous Blood Culture - Final NO GROWTH AFTER 5 DAYS INCUBATION 08/12/19 14:45 Stool Clostridioides difficile Antigen - Final 08/12/19 14:45 Stool Clostridioides difficile Toxin Assay - Final 08/09/19 16:30 Urine - Urine Caceres Urine Culture - Final NO GROWTH OBTAINED 08/04/19 19:40 Blood - Peripheral Venous Blood Culture - Final Staphylococcus Capitis 08/04/19 19:50 Blood - Peripheral Venous Blood Culture - Final NO GROWTH AFTER 5 DAYS INCUBATION 08/05/19 13:45 Urine - Urine Caceres Urine Culture - Final NO GROWTH OBTAINED 07/31/19 16:30 Blood - Peripheral Venous Blood Culture - Final NO GROWTH AFTER 5 DAYS INCUBATION 07/31/19 17:25 Blood - Peripheral Venous Blood Culture - Final Staphylococcus Capitis 08/01/19 11:55 Sputum - Endotrachea Suction/Ventilator Gram Stain - Final 08/01/19 11:55 Sputum - Endotrachea Suction/Ventilator Sputum Culture - Final Mr S Aureus 07/29/19 11:46 Blood - Peripheral Venous Blood Culture - Final NO GROWTH AFTER 5 DAYS INCUBATION 07/29/19 11:18 Blood - Central Line Blood Culture - Final NO GROWTH AFTER 5 DAYS INCUBATION 07/29/19 11:18 Urine - Urine Caceres Urine Culture - Final NO GROWTH OBTAINED 07/12/19 11:04 Blood - Peripheral Venous Yeast/Fungus Identification - Final Janis Lusitaniae 07/18/19 21:10 Blood - Peripheral Venous Blood Culture - Final NO GROWTH AFTER 5 DAYS INCUBATION 07/18/19 18:30 Blood - Peripheral Venous Blood Culture - Final NO GROWTH AFTER 5 DAYS INCUBATION 07/15/19 12:25 Blood - Peripheral Venous Blood Culture - Final NO GROWTH AFTER 5 DAYS INCUBATION 07/16/19 15:15 Blood - Peripheral Venous Blood Culture - Final Staphylococcus Epidermidis 07/14/19 11:30 Blood - Peripheral Venous Blood Culture - Final NO GROWTH AFTER 5 DAYS INCUBATION 07/16/19 15:05 Blood - Peripheral Venous Blood Culture - Final Staphylococcus Epidermidis 07/16/19 12:30 Sputum - Endotrachea Suction/Ventilator Gram Stain - Final 07/16/19 12:30 Sputum - Endotrachea Suction/Ventilator Sputum Culture - Final Mr S Aureus Escherichia Coli 07/12/19 10:55 Blood - Peripheral Venous Blood Culture - Final NO GROWTH AFTER 5 DAYS INCUBATION 07/16/19 12:30 Urine - Urine - Catheterized Urine Culture - Final NO GROWTH OBTAINED 07/12/19 06:00 Sputum - Endotrachea Suction/Ventilator Gram Stain - Final 07/12/19 06:00 Sputum - Endotrachea Suction/Ventilator Sputum Culture - Final 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 Mr S Aureus 07/12/19 11:04 Blood - Peripheral Venous Blood Culture - Final 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 07/01/19 18:15 Blood - Peripheral Venous Blood Culture - Final NO GROWTH AFTER 5 DAYS INCUBATION 06/29/19 12:30 Blood - Peripheral Venous Blood Culture - Final Staphylococcus Epidermidis 06/30/19 17:15 Sputum - Endotrachea Suction/Ventilator Gram Stain - Final 06/30/19 17:15 Sputum - Endotrachea Suction/Ventilator Sputum Culture - Final Escherichia Coli 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 Model 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 06/28/19 09:00 Blood - Peripheral Venous Blood Culture - Final Staphylococcus Epidermidis 06/28/19 12:50 Sputum - Endotrachea Suction/Ventilator Gram Stain - Final 06/28/19 12:50 Sputum - Endotrachea Suction/Ventilator Sputum Culture - Final 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 Staphylococcus Aureus 06/25/19 13:40 Blood - Peripheral Venous Blood Culture - Final NO GROWTH AFTER 5 DAYS INCUBATION 06/25/19 13:20 Blood - Peripheral Venous Blood Culture - Final NO GROWTH AFTER 5 DAYS INCUBATION 06/28/19 12:51 Urine - Urine Caceres Urine Culture - Final NO GROWTH OBTAINED 06/22/19 13:00 Blood - Peripheral Venous Blood Culture - Final Staphylococcus Warneri 06/22/19 13:00 Blood - Peripheral Venous Blood Culture - Final Staphylococcus Epidermidis 06/24/19 00:01 Urine - Urine Caceres Urine Culture - Final NO GROWTH OBTAINED 06/24/19 00:01 Urine For Antigen Detection Legionella Antigen - Final 06/24/19 00:01 Urine For Antigen Detection Streptococcus pneumoniae Antigen (M - Final Laboratory Results - last 24 hr 08/26/19 15:05 Stool O & P Wet Mount O & P Permanent Slide Final report Home Medications Medication Instructions Recorded Topiramate [Topamax -] 200 mg PO TID #90 tablet 06/10/18 Lacosamide [Vimpat] 200 mg PO BID #60 tablet MDD 2 06/11/18 Phenobarbital - 60 mg PO BID #120 tablet MDD 4 06/11/18 levETIRAcetam [Keppra -] 1,000 mg PO BID 06/22/19 Current Medications Generic Name Dose Route Start Last Admin Trade Name Freq PRN Reason Stop Dose Admin Acetaminophen 650 mg 08/21/19 13:08 08/28/19 06:23 Tylenol - PO 650 mg Q6H PRN Administration Fever Or Pain Albuterol/Ipratropium 1 amp 08/16/19 13:19 08/27/19 04:30 Duoneb - NEB 1 amp Q6H PRN Administration SHORTNESS OF BREATH Amino Acids 30 ml 08/09/19 08:00 09/01/19 18:01 Prosource No Carb Liquid Pkt GT 30 ml BID@0800,1730 TIKI Administration Artificial Tears 1 drop 08/08/19 18:05 08/10/19 10:43 Artificial Tears OU 1 drop Q12H PRN Administration DRY EYES Ascorbic Acid 500 mg 08/09/19 10:00 09/01/19 09:14 Vitamin C Oral Solution - GT 500 mg DAILY TIKI Administration Carvedilol 6.25 mg 08/20/19 09:33 09/01/19 09:13 Coreg - PO 6.25 mg BID TIKI Administration Cholecalciferol 800 unit 08/09/19 10:00 09/01/19 09:20 Vitamin D3 - NR 800 unit DAILY TIKI Administration Enoxaparin Sodium 40 mg 08/15/19 10:00 09/01/19 09:14 Lovenox - SQ 40 mg DAILY TIKI Administration Famotidine 20 mg 08/28/19 22:00 09/01/19 09:15 Pepcid NGT 20 mg BID TIKI Administration Lacosamide 200 mg 08/10/19 22:00 09/01/19 09:14 Vimpat Liquid - PO 200 mg BID TIKI Administration Levetiracetam 1,000 mg 08/10/19 22:00 09/01/19 09:14 Keppra Oral Solution - NGT 1,000 mg BID TIKI Administration Nystatin 500,000 units 08/08/19 18:05 Nystatin Oral Suspension - PO Q6HPO PRN ORAL PAIN/MOUTH SORES Nystatin 1 applic 08/21/19 11:15 09/01/19 09:16 Nystop Powder - TP 1 applic BID TIKI Administration Phenobarbital 60 mg 08/10/19 22:00 09/01/19 09:15 Phenobarbital Liquid - NGT 60 mg BID TIKI Administration Potassium Chloride 40 meq 08/08/19 22:00 09/01/19 09:17 Potassium Chloride Oral Liquid GT 40 meq BID TIKI Administration Quetiapine Fumarate 25 mg 08/18/19 10:45 09/01/19 09:16 Seroquel - PO 25 mg DAILY TIKI Administration Topiramate 200 mg 08/08/19 22:00 09/01/19 13:37 Topamax - GT 200 mg TID TIKI Administration Zinc Sulfate 220 mg 08/08/19 22:00 09/01/19 09:16 Orazinc - GT 220 mg BID TIKI Administration ASSESSMENT AND PLAN: 39 M Acute Resp Failure 2/2 COVID-19 s/p trach/plasma/Actemra Sepsis 2/2 polymicrobial infections (fungemia/bacteremia/COVID) Tachycardia Transaminitis Epilepsy Mental retardation Developmental delay Deconditioning Anemia Plan: G tube site clean, afebrile, condom cath, DC rectal tube once stool formed Not candidate for LTAC/SNF d/t insurance problems Wean vent to minimize FiO2 req. for ~90% sat Cont. psych meds, Ativan PRN for anxiety/tachypnea Aggressive replacements of electrolytes Cont. to hold abx DVT ppx: Lovenox SC
[2019-09-02] MEDS: TOPIRAMATE 200 MG TABLET GT SCH ×3 (05:36→22:44)
--- NOTE | 2019-09-02 08:00 | PN ---
Progress Note, Physician History of Present Illness: pulmonary awake on vent support imv with ps tolerating well,pt also on pmv tolerating well - Current Medication List Current Medications: Active Medications Acetaminophen (Tylenol -) 650 mg PO Q6H PRN PRN Reason: Fever Or Pain Last Admin: 08/28/19 06:23 Dose: 650 mg Documented by: Albuterol/Ipratropium (Duoneb -) 1 amp NEB Q6H PRN PRN Reason: SHORTNESS OF BREATH Last Admin: 08/27/19 04:30 Dose: 1 amp Documented by: Amino Acids (Prosource No Carb Liquid Pkt) 30 ml GT BID@0800,1730 [facility] Last Admin: 09/01/19 18:01 Dose: 30 ml Documented by: Artificial Tears (Artificial Tears) 1 drop OU Q12H PRN PRN Reason: DRY EYES Last Admin: 08/10/19 10:43 Dose: 1 drop Documented by: Ascorbic Acid (Vitamin C Oral Solution -) 500 mg GT DAILY [facility] Last Admin: 09/01/19 09:14 Dose: 500 mg Documented by: Carvedilol (Coreg -) 6.25 mg PO BID [facility] Last Admin: 09/01/19 21:46 Dose: 6.25 mg Documented by: Cholecalciferol (Vitamin D3 -) 800 unit NR DAILY [facility] Last Admin: 09/01/19 09:20 Dose: 800 unit Documented by: Enoxaparin Sodium (Lovenox -) 40 mg SQ DAILY [facility] Last Admin: 09/01/19 09:14 Dose: 40 mg Documented by: Famotidine (Pepcid) 20 mg NGT BID [facility] Last Admin: 09/01/19 21:47 Dose: 20 mg Documented by: Lacosamide (Vimpat Liquid -) 200 mg PO BID [facility] Last Admin: 09/01/19 21:49 Dose: 200 mg Documented by: Levetiracetam (Keppra Oral Solution -) 1,000 mg NGT BID [facility] Last Admin: 09/01/19 21:48 Dose: 1,000 mg Documented by: Nystatin (Nystatin Oral Suspension -) 500,000 units PO Q6HPO PRN PRN Reason: ORAL PAIN/MOUTH SORES Nystatin (Nystop Powder -) 1 applic TP BID [facility] Last Admin: 09/01/19 21:51 Dose: 1 applic Documented by: Phenobarbital (Phenobarbital Liquid -) 60 mg NGT BID [facility] Last Admin: 09/01/19 21:47 Dose: 60 mg Documented by: Potassium Chloride (Potassium Chloride Oral Liquid) 40 meq GT BID [facility] Last Admin: 09/01/19 21:48 Dose: 40 meq Documented by: Quetiapine Fumarate (Seroquel -) 25 mg PO DAILY [facility] Last Admin: 09/01/19 09:16 Dose: 25 mg Documented by: Topiramate (Topamax -) 200 mg GT TID [facility] Last Admin: 09/02/19 05:36 Dose: 200 mg Documented by: Zinc Sulfate (Orazinc -) 220 mg GT BID [facility] Last Admin: 09/01/19 21:46 Dose: 220 mg Documented by: - Objective Vital Signs: Vital Signs Temperature 98.3 F 09/02/19 06:00 Pulse Rate 106 H 09/02/19 06:00 Respiratory Rate 20 09/02/19 06:00 Blood Pressure 129/80 09/02/19 06:00 O2 Sat by Pulse Oximetry (%) 100 09/02/19 04:45 Constitutional: Yes: Well Nourished, Calm Eyes: Yes: WNL HENT: Yes: WNL Neck: Yes: Supple (trach) Cardiovascular: Yes: Regular Rate and Rhythm, S1, S2 Respiratory: Yes: Rhonchi (few scattered rhonchi) Gastrointestinal: Yes: Normal Bowel Sounds, Soft Extremities: Yes: WNL Edema: No Labs: CBC, BMP Problem List - Problems (1) COVID-19 Code(s): U07.1 - COVID POSITIVE (2) COVID-19 Code(s): U07.1 - COVID POSITIVE (3) Acute respiratory failure with hypoxia Code(s): J96.01 - ACUTE RESPIRATORY FAILURE WITH HYPOXIA (4) Seizure disorder Code(s): G40.909 - EPILEPSY, UNSP, NOT INTRACTABLE, WITHOUT STATUS EPILEPTICUS (5) Status epilepticus Code(s): G40.901 - EPILEPSY, UNSP, NOT INTRACTABLE, WITH STATUS EPILEPTICUS Assessment/Plan ASSESSMENT AND PLAN: Acute Hypoxic and Hypercapneic Respiratory Failure improving COVID19 Pneumonia E Coli Pneumonia Fungenmia Bacteremia Septic Shock Seizure Disorder Mental Retardation ABNORMAL LFTS - Ativan PRN - antiepileptics - monitor urine output, creatinine - low tidal volume ventilation - titrate FiO2, PEEP to keep SpO2 >90% - wean as tolerated - DVT/GI prophylaxis - inhaled bronchodilators - PMV as tolerated Dr MARTINEZ
[2019-09-02] MEDS ORDERED: PT OWN MED DRAWER 7, Y5N ONE ×3 (09:08→22:37)
[2019-09-02] MEDS: AMINO ACIDS/PROTEIN HYDROLYS 30 ML LIQUID.PKT GT SCH ×2 (09:10→18:00)
[2019-09-02] MEDS: FAMOTIDINE 40 MG/5 ML ORAL SUSPENSION NGT SCH ×2 (09:10→22:44)
[2019-09-02] MEDS: ENOXAPARIN NA (PORCINE) 40 MG/0.4 ML DISP.SYRIN SQ SCH (09:10)
[2019-09-02] MEDS: CARVEDILOL 6.25 MG TABLET (FP) PO SCH ×2 (09:11→22:43)
[2019-09-02] MEDS: ASCORBIC ACID 500 MG/5 ML UNIT DOSE CUP GT SCH (09:11)
[2019-09-02] MEDS: levETIRAcetam 500 MG/5 ML ORAL SOLUTION (UNIT-DOSE CUPS) NGT SCH ×2 (09:11→22:43)
[2019-09-02] MEDS: Lacosamide 50 MG/5 ML ORAL SOLUTION UNIT CUPS PO SCH ×2 (09:11→22:47)
[2019-09-02] MEDS: CHOLECALCIFEROL (VIT D3) 400 UNIT (10 MCG) TABLET NR SCH (09:11)
[2019-09-02] MEDS: QUEtiapine FUMARATE 25 MG TABLET PO SCH (09:12)
[2019-09-02] MEDS: NYSTATIN POWDER 100,000 UNITS/GM - 15 GM TOPICAL POWDER TP SCH ×2 (09:12→22:44)
[2019-09-02] MEDS: PHENobarbital 20 MG/5 ML UNIT-DOSE CUP NGT SCH ×2 (09:13→22:43)
[2019-09-02] MEDS: POTASSIUM CHLORIDE ORAL LIQUID 20 MEQ/15 ML GT SCH ×2 (09:14→22:44)
[2019-09-02] MEDS: ZINC SULFATE 220 MG CAPSULE (FP) GT SCH ×2 (09:15→22:44)
[2019-09-02 09:21] LABS: BASO % 0.5 % (0-2.0); EOS % 1.5 % (0-4.5); HEMATOCRIT 33.1 % (35.4-49); HEMOGLOBIN 10.1 GM/dL (11.7-16.9); LYMPH % 14.5 % (8-40); MCH 26.8 pg (25.7-33.7); MCHC 30.5 g/dl (32.0-35.9); MEAN CELL VOLUME 87.8 fl (80-96); MEAN PLT VOLUME 11.7 fl (7.5-11.1); MONO % 5.9 % (3.8-10.2); NEUT % 77.6 % (42.8-82.8); PLATELET COUNT 253 K/MM3 (134-434); RBC 3.77 M/mm3 (4.00-5.60); RDW 16.9 % (11.9-15.9); WHITE BLOOD COUNT 16.7 K/mm3 (4.0-10.0)
[2019-09-02 10:03] LABS: POTASSIUM 3.8 mmol/L (3.5-5.1)
[2019-09-02 10:11] LABS: ALBUMIN 2.6 g/dl (3.4-5.0); BILIRUBIN,TOTAL 0.3 mg/dL (0.2-1); BLOOD UREA NITROGEN 12.6 mg/dL (7-18); CALCIUM 9.2 mg/dL (8.5-10.1); CREATININE 0.4 mg/dL (0.55-1.3); TOT PROT 6.4 g/dl (6.4-8.2)
--- NOTE | 2019-09-02 10:39 | PN ---
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 Progress Note: Selected Entries 09/01/19 09/02/19 09/02/19 22:21 00:19 02:00 Supper NPO Temperature 97.3 F L Pulse Rate 104 H Respiratory 33 H 20 Rate Blood Pressure 138/97 O2 Sat by Pulse 100 Oximetry (%) Fraction of 40 Inspired Oxygen (FIO2) 09/02/19 09/02/19 09/02/19 04:45 06:00 09:00 Supper Temperature 98.3 F Pulse Rate 106 H Respiratory 30 H 20 23 H Rate Blood Pressure 129/80 O2 Sat by Pulse 100 100 Oximetry (%) Fraction of 40 40 Inspired Oxygen (FIO2) Laboratory Tests 09/02/19 08:15 WBC 16.7 H Pt successfully used PMV on 08/31- Excellent potential for improved Swallowing function with PMV use and to wean from vent. Used again for 1.5 hours last night (Mother was very happy, per report) and on PMV all morning with RR 27, o2 sat 100%, verbalizing. REC-. USE PMV DAILY< TOLERATED INCREASING TIME ON PMV TO IMPROVE UPPER AIRWAY FUNCTION< SWALLOWING< COMMUNICATION AND SOCIALIZATION< AND TO EXPEDITE WEANING FROM VENTILATOR> MBS
--- NOTE | 2019-09-02 13:20 | PN ---
Progress Note, Physician History of Present Illness: Pt seen and examined at bedside. He is awake and appears comfortable. - Current Medication List Current Medications: Active Medications Acetaminophen (Tylenol -) 650 mg PO Q6H PRN PRN Reason: Fever Or Pain Last Admin: 08/28/19 06:23 Dose: 650 mg Documented by: Albuterol/Ipratropium (Duoneb -) 1 amp NEB Q6H PRN PRN Reason: SHORTNESS OF BREATH Last Admin: 08/27/19 04:30 Dose: 1 amp Documented by: Amino Acids (Prosource No Carb Liquid Pkt) 30 ml GT BID@0800,1730 [facility] Last Admin: 09/02/19 09:10 Dose: 30 ml Documented by: Artificial Tears (Artificial Tears) 1 drop OU Q12H PRN PRN Reason: DRY EYES Last Admin: 08/10/19 10:43 Dose: 1 drop Documented by: Ascorbic Acid (Vitamin C Oral Solution -) 500 mg GT DAILY [facility] Last Admin: 09/02/19 09:11 Dose: 500 mg Documented by: Carvedilol (Coreg -) 6.25 mg PO BID [facility] Last Admin: 09/02/19 09:11 Dose: 6.25 mg Documented by: Cholecalciferol (Vitamin D3 -) 800 unit NR DAILY [facility] Last Admin: 09/02/19 09:11 Dose: 800 unit Documented by: Enoxaparin Sodium (Lovenox -) 40 mg SQ DAILY [facility] Last Admin: 09/02/19 09:10 Dose: 40 mg Documented by: Famotidine (Pepcid) 20 mg NGT BID [facility] Last Admin: 09/02/19 09:10 Dose: 20 mg Documented by: Lacosamide (Vimpat Liquid -) 200 mg PO BID [facility] Last Admin: 09/02/19 09:11 Dose: 200 mg Documented by: Levetiracetam (Keppra Oral Solution -) 1,000 mg NGT BID [facility] Last Admin: 09/02/19 09:11 Dose: 1,000 mg Documented by: Nystatin (Nystatin Oral Suspension -) 500,000 units PO Q6HPO PRN PRN Reason: ORAL PAIN/MOUTH SORES Nystatin (Nystop Powder -) 1 applic TP BID [facility] Last Admin: 09/02/19 09:12 Dose: 1 applic Documented by: Phenobarbital (Phenobarbital Liquid -) 60 mg NGT BID [facility] Last Admin: 09/02/19 09:13 Dose: 60 mg Documented by: Potassium Chloride (Potassium Chloride Oral Liquid) 40 meq GT BID [facility] Last Admin: 09/02/19 09:14 Dose: 40 meq Documented by: Quetiapine Fumarate (Seroquel -) 25 mg PO DAILY [facility] Last Admin: 09/02/19 09:12 Dose: 25 mg Documented by: Topiramate (Topamax -) 200 mg GT TID [facility] Last Admin: 09/02/19 05:36 Dose: 200 mg Documented by: Zinc Sulfate (Orazinc -) 220 mg GT BID [facility] Last Admin: 09/02/19 09:15 Dose: 220 mg Documented by: - Objective Vital Signs: Vital Signs Temperature 99 F 09/02/19 10:00 Pulse Rate 109 H 09/02/19 10:00 Respiratory Rate 23 H 09/02/19 10:00 Blood Pressure 137/95 09/02/19 10:00 O2 Sat by Pulse Oximetry (%) 100 09/02/19 09:00 Constitutional: Yes: Calm Eyes: Yes: Conjunctiva Clear HENT: Yes: Atraumatic Neck: Yes: Supple Cardiovascular: Yes: S1, S2 Respiratory: Yes: Mechanically Ventilated Gastrointestinal: Yes: Soft, Other (peg) Genitourinary: Yes: Incontinence Musculoskeletal: Yes: WNL Labs: CBC, BMP 09/02/19 08:15 09/02/19 08:15 INR, PTT INR 1.20 (0.83-1.09) H 08/21/19 11:30 Problem List - Problems (1) Hypernatremia Code(s): E87.0 - HYPEROSMOLALITY AND HYPERNATREMIA (2) Hypokalemia Code(s): E87.6 - HYPOKALEMIA (3) Acute respiratory failure with hypoxia Code(s): J96.01 - ACUTE RESPIRATORY FAILURE WITH HYPOXIA (4) Bacteremia Code(s): R78.81 - BACTEREMIA Assessment/Plan Current Medications Generic Name Dose Route Start Last Admin Trade Name Freq PRN Reason Stop Dose Admin Acetaminophen 650 mg 08/21/19 13:08 08/28/19 06:23 Tylenol - PO 650 mg Q6H PRN Administration Fever Or Pain Albuterol/Ipratropium 1 amp 08/16/19 13:19 08/27/19 04:30 Duoneb - NEB 1 amp Q6H PRN Administration SHORTNESS OF BREATH Amino Acids 30 ml 08/09/19 08:00 09/02/19 09:10 Prosource No Carb Liquid Pkt GT 30 ml BID@0800,1730 TIKI Administration Artificial Tears 1 drop 08/08/19 18:05 08/10/19 10:43 Artificial Tears OU 1 drop Q12H PRN Administration DRY EYES Ascorbic Acid 500 mg 08/09/19 10:00 09/02/19 09:11 Vitamin C Oral Solution - GT 500 mg DAILY TIKI Administration Carvedilol 6.25 mg 08/20/19 09:33 09/02/19 09:11 Coreg - PO 6.25 mg BID TIKI Administration Cholecalciferol 800 unit 08/09/19 10:00 09/02/19 09:11 Vitamin D3 - NR 800 unit DAILY TIKI Administration Enoxaparin Sodium 40 mg 08/15/19 10:00 09/02/19 09:10 Lovenox - SQ 40 mg DAILY TIKI Administration Famotidine 20 mg 08/28/19 22:00 09/02/19 09:10 Pepcid NGT 20 mg BID TIKI Administration Lacosamide 200 mg 08/10/19 22:00 09/02/19 09:11 Vimpat Liquid - PO 200 mg BID TIKI Administration Levetiracetam 1,000 mg 08/10/19 22:00 09/02/19 09:11 Keppra Oral Solution - NGT 1,000 mg BID TIKI Administration Nystatin 500,000 units 08/08/19 18:05 Nystatin Oral Suspension - PO Q6HPO PRN ORAL PAIN/MOUTH SORES Nystatin 1 applic 08/21/19 11:15 09/02/19 09:12 Nystop Powder - TP 1 applic BID TIKI Administration Phenobarbital 60 mg 08/10/19 22:00 09/02/19 09:13 Phenobarbital Liquid - NGT 60 mg BID TIKI Administration Potassium Chloride 40 meq 08/08/19 22:00 09/02/19 09:14 Potassium Chloride Oral Liquid GT 40 meq BID TIKI Administration Quetiapine Fumarate 25 mg 08/18/19 10:45 09/02/19 09:12 Seroquel - PO 25 mg DAILY TIKI Administration Topiramate 200 mg 08/08/19 22:00 09/02/19 05:36 Topamax - GT 200 mg TID TIKI Administration Zinc Sulfate 220 mg 08/08/19 22:00 09/02/19 09:15 Orazinc - GT 220 mg BID TIKI Administration Impression 1. hypokalemia 2. hypernatremia 3. resp failure 4. fungemia 5. covid 19 infection 6. ards 7. developemental delay 8. epilepsy 9. bactermia 10. resp acidosis with compensatory met alk Plan - lytes stable - cont vent support - labs reviewed - stable off of diuretics - pulm follow up - will follow prn
--- NOTE | 2019-09-02 16:26 | PN.GI ---
GI Progress Note Subjective: fever 100.2 noted ; no new complaints reported - Objective Vital Signs: Vital Signs Temperature 100.2 F H 09/02/19 14:00 Pulse Rate 103 H 09/02/19 14:00 Respiratory Rate 23 H 09/02/19 15:33 Blood Pressure 133/83 09/02/19 14:00 O2 Sat by Pulse Oximetry (%) 100 09/02/19 15:33 Constitutional: No Distress Gastrointestinal Inspection: Yes: WNL ...Auscultate: Yes: Normoactive Bowel Sounds, Other (not tender) Labs: CBC, BMP 09/02/19 08:15 09/02/19 08:15 INR, PTT INR 1.20 (0.83-1.09) H 08/21/19 11:30 Problem List - Problems (1) Dysphagia Assessment/Plan: -- hepatitis serology negative for chronic disease -- await liver imaging for further evaluation of his transaminitis -- trend lft daily Transaminitis most likely multifactorial in origin with medication induced and underlying infectious process included in the differential diagnosis. Code(s): R13.10 - DYSPHAGIA, UNSPECIFIED (2) Acute respiratory failure with hypoxia Code(s): J96.01 - ACUTE RESPIRATORY FAILURE WITH HYPOXIA (3) COVID-19 Code(s): U07.1 - COVID POSITIVE
--- NOTE | 2019-09-02 17:20 | PN ---
Physical Exam: SUBJECTIVE: Patient seen and examined at bedside this morning. No acute events overnight. OBJECTIVE: Vital Signs Temperature 100.2 F H 09/02/19 14:00 Pulse Rate 103 H 09/02/19 14:00 Respiratory Rate 23 H 09/02/19 15:33 Blood Pressure 133/83 09/02/19 14:00 O2 Sat by Pulse Oximetry (%) 100 09/02/19 15:33 GENERAL: The patient is awake, alert, nonverbal, follows commands EYES: PERRLA, EOMI EENT:moist mucous membranes. NECK: Trach in place LUNGS: Breath sounds equal, clear to auscultation bilaterally HEART: tachycardic, regular, S1, S2 ABDOMEN: Soft, nontender, nondistended, Percutaneous G tube in place, clean dry and intact EXTREMITIES: 2+ pulses, warm, well-perfused, no edema. Laboratory Results - last 24 hr 08/26/19 09/02/19 09/02/19 15:05 08:15 08:15 WBC 16.7 H RBC 3.77 L Hgb 10.1 L Hct 33.1 L MCV 87.8 MCH 26.8 MCHC 30.5 L RDW 16.9 H Plt Count 253 MPV 11.7 H Absolute Neuts (auto) 13.0 H Neutrophils % 77.6 Lymphocytes % 14.5 D Monocytes % 5.9 Eosinophils % 1.5 Basophils % 0.5 Nucleated RBC % 0 Sodium 142 Potassium 3.8 Chloride 111 H Carbon Dioxide 22 Anion Gap 8 BUN 12.6 Creatinine 0.4 L Est GFR (CKD-EPI)AfAm 174.63 Est GFR (CKD-EPI)NonAf 150.67 Random Glucose 114 H Calcium 9.2 Total Bilirubin 0.3 AST 66 H ALT 158 H Alkaline Phosphatase 154 H Total Protein 6.4 Albumin 2.6 L Stool O & P Wet [place] O & P Permanent Slide Final report Active Medications Generic Name Dose Route Start Last Admin Trade Name Freq PRN Reason Stop Dose Admin Acetaminophen 650 mg 08/21/19 13:08 08/28/19 06:23 Tylenol - PO 650 mg Q6H PRN Administration Fever Or Pain Albuterol/Ipratropium 1 amp 08/16/19 13:19 08/27/19 04:30 Duoneb - NEB 1 amp Q6H PRN Administration SHORTNESS OF BREATH Amino Acids 30 ml 08/09/19 08:00 09/02/19 09:10 Prosource No Carb Liquid Pkt GT 30 ml BID@0800,1730 TIKI Administration Artificial Tears 1 drop 08/08/19 18:05 08/10/19 10:43 Artificial Tears OU 1 drop Q12H PRN Administration DRY EYES Ascorbic Acid 500 mg 08/09/19 10:00 09/02/19 09:11 Vitamin C Oral Solution - GT 500 mg DAILY TIKI Administration Carvedilol 6.25 mg 08/20/19 09:33 09/02/19 09:11 Coreg - PO 6.25 mg BID TIKI Administration Cholecalciferol 800 unit 08/09/19 10:00 09/02/19 09:11 Vitamin D3 - NR 800 unit DAILY TIKI Administration Enoxaparin Sodium 40 mg 08/15/19 10:00 09/02/19 09:10 Lovenox - SQ 40 mg DAILY TIKI Administration Famotidine 20 mg 08/28/19 22:00 09/02/19 09:10 Pepcid NGT 20 mg BID TIKI Administration Lacosamide 200 mg 08/10/19 22:00 09/02/19 09:11 Vimpat Liquid - PO 200 mg BID TIKI Administration Levetiracetam 1,000 mg 08/10/19 22:00 09/02/19 09:11 Keppra Oral Solution - NGT 1,000 mg BID TIKI Administration Nystatin 500,000 units 08/08/19 18:05 Nystatin Oral Suspension - PO Q6HPO PRN ORAL PAIN/MOUTH SORES Nystatin 1 applic 08/21/19 11:15 09/02/19 09:12 Nystop Powder - TP 1 applic BID TIKI Administration Phenobarbital 60 mg 08/10/19 22:00 09/02/19 09:13 Phenobarbital Liquid - NGT 60 mg BID TIKI Administration Potassium Chloride 40 meq 08/08/19 22:00 09/02/19 09:14 Potassium Chloride Oral Liquid GT 40 meq BID TIKI Administration Quetiapine Fumarate 25 mg 08/18/19 10:45 09/02/19 09:12 Seroquel - PO 25 mg DAILY TIKI Administration Topiramate 200 mg 08/08/19 22:00 09/02/19 14:16 Topamax - GT 200 mg TID TIKI Administration Zinc Sulfate 220 mg 08/08/19 22:00 09/02/19 09:15 Orazinc - GT 220 mg BID TIKI Administration ASSESSMENT/PLAN: Patient is a 39 y/o M with PMH Mental Retardation and epilepsy who presented to ED initially with SOB and hypoxia requiring intubation, admitted to hospital for hypoxic respiratory failure 2/2 to covid-19. Hospital course complicated by bacteremia, fungemia, MRSA PNA, now with recurrent fever. #Acute Resp Failure 2/2 COVID-19 -s/p trach, convalescent plasma, tocilizumab -on AC vent settings. Weaning as tolerated -Pulm on board #Sepsis,resolved -persistent leukocytosis - improved -Sputum Cx (08/21/2019) pos for MRSA, Dapto sensitive and E. coli, carbapenem sensitive -ID on board. F/u Recs. Presently observing off Abx -Nephro on board #Transaminitis -persistent since admission -as of yet, no clear source identified -per GI, pt will potentially require a biopsy #Tachycardia -c/w Coreg -c/w low-dose seroquel to treat potential contribution of anxiety #Epilepsy -c/w lorazepam prn, levetiracitam, phenobarbitol, lacosamide, topiramate #FEN -not on any standing fluids -electrolytes wnl, routine bmp monitoring -Tube feed Jevity 1.5 #Prophylaxis -Lovenox 40mg sq daily #Disposition -full code - pending SNF placement Visit type - Emergency Visit Emergency Visit: Yes ED Registration Date: 06/22/19 Care time: The patient presented to the Emergency Department on the above date and was hospitalized for further evaluation of their emergent condition. - New Patient This patient is new to me today: Yes Date on this admission: 09/02/19 - Critical Care Critical Care patient: No ATTENDING PHYSICIAN STATEMENT I saw and evaluated the patient. I reviewed the resident's note and discussed the case with the resident. I agree with the resident's findings and plan as documented. SUBJECTIVE: OBJECTIVE: ASSESSMENT AND PLAN:
--- NOTE | 2019-09-02 17:41 | PN ---
Teaching Attending Note Name of Resident: Kae Pack ATTENDING PHYSICIAN STATEMENT I saw and evaluated the patient. I reviewed the resident's note and discussed the case with the resident. I agree with the resident's findings and plan as documented. SUBJECTIVE: Patient seen and examined bedside, afebrile, off abx, s/p PEG. 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 Vital Signs - 24 hr 09/01/19 09/01/19 09/01/19 17:45 18:00 20:30 Temperature 99.5 F Pulse Rate 99 H Respiratory 30 H 30 H Rate Blood Pressure 128/81 O2 Sat by Pulse 100 100 Oximetry (%) 09/01/19 09/01/19 09/02/19 21:00 22:00 00:19 Temperature 98 F Pulse Rate 100 H Respiratory 26 H 33 H Rate Blood Pressure 132/91 O2 Sat by Pulse 100 100 Oximetry (%) 09/02/19 09/02/19 09/02/19 02:00 04:45 06:00 Temperature 97.3 F L 98.3 F Pulse Rate 104 H 106 H Respiratory 20 30 H 20 Rate Blood Pressure 138/97 129/80 O2 Sat by Pulse 100 Oximetry (%) 09/02/19 09/02/19 09/02/19 07:50 09:00 10:00 Temperature 99 F Pulse Rate 109 H Respiratory 28 H 23 H 23 H Rate Blood Pressure 137/95 O2 Sat by Pulse 100 100 Oximetry (%) 09/02/19 09/02/19 09/02/19 13:50 14:00 15:33 Temperature 100.2 F H Pulse Rate 103 H Respiratory 30 H 30 H 23 H Rate Blood Pressure 133/83 O2 Sat by Pulse 100 100 Oximetry (%) 09/02/19 16:30 Temperature Pulse Rate Respiratory 26 H Rate Blood Pressure O2 Sat by Pulse 100 Oximetry (%) Microbiology 08/26/19 11:05 Blood - Peripheral Venous Blood Culture - Final NO GROWTH AFTER 5 DAYS INCUBATION 08/26/19 11:05 Blood - Peripheral Venous Blood Culture - Final NO GROWTH AFTER 5 DAYS INCUBATION 08/26/19 20:40 Sputum - Endotrachea Suction/Ventilator Gram Stain - Final 08/26/19 20:40 Sputum - Endotrachea Suction/Ventilator Sputum Culture - Final S Aureus Escherichia Coli 08/26/19 19:15 Urine - Urine Caceres Urine Culture - Final NO GROWTH OBTAINED 08/26/19 22:15 Stool Cryptosporidium Antigen - Final 08/26/19 22:15 Stool Giardia Antigen (JASSON) - Final 08/26/19 12:10 Urine - Urine Caceres Legionella Antigen - Final 08/26/19 12:10 Urine - Urine Caceres Streptococcus pneumoniae Antigen (M - Final 08/20/19 20:20 Blood - Peripheral Venous Blood Culture - Final NO GROWTH AFTER 5 DAYS INCUBATION 08/20/19 20:20 Blood - Peripheral Venous Blood Culture - Final NO GROWTH AFTER 5 DAYS INCUBATION 08/21/19 03:17 Sputum - Endotrachea Suction/Ventilator AFB Smear Concentration - Final 08/21/19 03:17 Sputum - Endotrachea Suction/Ventilator Mycobacterial Culture - Preliminary 08/20/19 05:00 Sputum - Endotrachea Suction/Ventilator AFB Smear Concentration - Final 08/20/19 05:00 Sputum - Endotrachea Suction/Ventilator Mycobacterial Culture - Preliminary 08/21/19 03:17 Sputum - Endotrachea Suction/Ventilator Gram Stain - Final 08/21/19 03:17 Sputum - Endotrachea Suction/Ventilator Sputum Culture - Final S Aureus 08/17/19 02:00 Blood - Peripheral Venous Blood Culture - Final NO GROWTH AFTER 5 DAYS INCUBATION 08/17/19 02:00 Blood - Peripheral Venous Blood Culture - Final NO GROWTH AFTER 5 DAYS INCUBATION 08/20/19 19:30 Stool Clostridioides difficile Antigen - Final 08/20/19 19:30 Stool Clostridioides difficile Toxin Assay - Final 08/20/19 19:30 Urine For Antigen Detection Legionella Antigen - Final 08/20/19 19:30 Urine For Antigen Detection Streptococcus pneumoniae Antigen (M - Final 08/18/19 12:00 Sputum - Endotrachea Suction/Ventilator AFB Smear Concentration - Final 08/18/19 12:00 Sputum - Endotrachea Suction/Ventilator Mycobacterial Culture - Preliminary 08/17/19 11:35 Urine - Urine Caceres Urine Culture - Final NO GROWTH OBTAINED 08/12/19 13:10 Blood - Peripheral Venous Blood Culture - Final NO GROWTH AFTER 5 DAYS INCUBATION 08/12/19 13:00 Blood - Peripheral Venous Blood Culture - Final NO GROWTH AFTER 5 DAYS INCUBATION 08/14/19 14:50 Sputum - Endotrachea Suction/Ventilator Gram Stain - Final 08/14/19 14:50 Sputum - Endotrachea Suction/Ventilator Sputum Culture - Final NORMAL RESPIRATORY RICKY 08/14/19 14:49 Stool Clostridioides difficile Antigen - Final 08/14/19 14:49 Stool Clostridioides difficile Toxin Assay - Final 08/09/19 11:45 Blood - Peripheral Venous Blood Culture - Final NO GROWTH AFTER 5 DAYS INCUBATION 08/09/19 11:52 Blood - Peripheral Venous Blood Culture - Final NO GROWTH AFTER 5 DAYS INCUBATION 08/12/19 14:45 Stool Clostridioides difficile Antigen - Final 08/12/19 14:45 Stool Clostridioides difficile Toxin Assay - Final 08/09/19 16:30 Urine - Urine Caceres Urine Culture - Final NO GROWTH OBTAINED 08/04/19 19:40 Blood - Peripheral Venous Blood Culture - Final Staphylococcus Capitis 08/04/19 19:50 Blood - Peripheral Venous Blood Culture - Final NO GROWTH AFTER 5 DAYS INCUBATION 08/05/19 13:45 Urine - Urine Caceres Urine Culture - Final NO GROWTH OBTAINED 07/31/19 16:30 Blood - Peripheral Venous Blood Culture - Final NO GROWTH AFTER 5 DAYS INCUBATION 07/31/19 17:25 Blood - Peripheral Venous Blood Culture - Final Staphylococcus Capitis 08/01/19 11:55 Sputum - Endotrachea Suction/Ventilator Gram Stain - Final 08/01/19 11:55 Sputum - Endotrachea Suction/Ventilator Sputum Culture - Final Mr S Aureus 07/29/19 11:46 Blood - Peripheral Venous Blood Culture - Final NO GROWTH AFTER 5 DAYS INCUBATION 07/29/19 11:18 Blood - Central Line Blood Culture - Final NO GROWTH AFTER 5 DAYS INCUBATION 07/29/19 11:18 Urine - Urine Caceres Urine Culture - Final NO GROWTH OBTAINED 07/12/19 11:04 Blood - Peripheral Venous Yeast/Fungus Identification - Final Janis Lusitaniae 07/18/19 21:10 Blood - Peripheral Venous Blood Culture - Final NO GROWTH AFTER 5 DAYS INCUBATION 07/18/19 18:30 Blood - Peripheral Venous Blood Culture - Final NO GROWTH AFTER 5 DAYS INCUBATION 07/15/19 12:25 Blood - Peripheral Venous Blood Culture - Final NO GROWTH AFTER 5 DAYS INCUBATION 07/16/19 15:15 Blood - Peripheral Venous Blood Culture - Final Staphylococcus Epidermidis 07/14/19 11:30 Blood - Peripheral Venous Blood Culture - Final NO GROWTH AFTER 5 DAYS INCUBATION 07/16/19 15:05 Blood - Peripheral Venous Blood Culture - Final Staphylococcus Epidermidis 07/16/19 12:30 Sputum - Endotrachea Suction/Ventilator Gram Stain - Final 07/16/19 12:30 Sputum - Endotrachea Suction/Ventilator Sputum Culture - Final Mr S Aureus Escherichia Coli 07/12/19 10:55 Blood - Peripheral Venous Blood Culture - Final NO GROWTH AFTER 5 DAYS INCUBATION 07/16/19 12:30 Urine - Urine - Catheterized Urine Culture - Final NO GROWTH OBTAINED 07/12/19 06:00 Sputum - Endotrachea Suction/Ventilator Gram Stain - Final 07/12/19 06:00 Sputum - Endotrachea Suction/Ventilator Sputum Culture - Final 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 Mr S Aureus 07/12/19 11:04 Blood - Peripheral Venous Blood Culture - Final 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 07/01/19 18:15 Blood - Peripheral Venous Blood Culture - Final NO GROWTH AFTER 5 DAYS INCUBATION 06/29/19 12:30 Blood - Peripheral Venous Blood Culture - Final Staphylococcus Epidermidis 06/30/19 17:15 Sputum - Endotrachea Suction/Ventilator Gram Stain - Final 06/30/19 17:15 Sputum - Endotrachea Suction/Ventilator Sputum Culture - Final Escherichia Coli [employer] 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 06/28/19 09:00 Blood - Peripheral Venous Blood Culture - Final Staphylococcus Epidermidis 06/28/19 12:50 Sputum - Endotrachea Suction/Ventilator Gram Stain - Final 06/28/19 12:50 Sputum - Endotrachea Suction/Ventilator Sputum Culture - Final 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 Staphylococcus Aureus 06/25/19 13:40 Blood - Peripheral Venous Blood Culture - Final NO GROWTH AFTER 5 DAYS INCUBATION 06/25/19 13:20 Blood - Peripheral Venous Blood Culture - Final NO GROWTH AFTER 5 DAYS INCUBATION 06/28/19 12:51 Urine - Urine Caceres Urine Culture - Final NO GROWTH OBTAINED 06/22/19 13:00 Blood - Peripheral Venous Blood Culture - Final Staphylococcus Warneri 06/22/19 13:00 Blood - Peripheral Venous Blood Culture - Final Staphylococcus Epidermidis 06/24/19 00:01 Urine - Urine Caceres Urine Culture - Final NO GROWTH OBTAINED 06/24/19 00:01 Urine For Antigen Detection Legionella Antigen - Final 06/24/19 00:01 Urine For Antigen Detection Streptococcus pneumoniae Antigen (M - Final Laboratory Results - last 24 hr 09/02/19 09/02/19 08:15 08:15 WBC 16.7 H RBC 3.77 L Hgb 10.1 L Hct 33.1 L MCV 87.8 MCH 26.8 MCHC 30.5 L RDW 16.9 H Plt Count 253 MPV 11.7 H Absolute Neuts (auto) 13.0 H Neutrophils % 77.6 Lymphocytes % 14.5 D Monocytes % 5.9 Eosinophils % 1.5 Basophils % 0.5 Nucleated RBC % 0 Sodium 142 Potassium 3.8 Chloride 111 H Carbon Dioxide 22 Anion Gap 8 BUN 12.6 Creatinine 0.4 L Est GFR (CKD-EPI)AfAm 174.63 Est GFR (CKD-EPI)NonAf 150.67 Random Glucose 114 H Calcium 9.2 Total Bilirubin 0.3 AST 66 H ALT 158 H Alkaline Phosphatase 154 H Total Protein 6.4 Albumin 2.6 L Home Medications Medication Instructions Recorded Topiramate [Topamax -] 200 mg PO TID #90 tablet 06/10/18 Lacosamide [Vimpat] 200 mg PO BID #60 tablet MDD 2 06/11/18 Phenobarbital - 60 mg PO BID #120 tablet MDD 4 06/11/18 levETIRAcetam [Keppra -] 1,000 mg PO BID 06/22/19 Current Medications Generic Name Dose Route Start Last Admin Trade Name Walterq PRN Reason Stop Dose Admin Acetaminophen 650 mg 08/21/19 13:08 08/28/19 06:23 Tylenol - PO 650 mg Q6H PRN Administration Fever Or Pain Albuterol/Ipratropium 1 amp 08/16/19 13:19 08/27/19 04:30 Duoneb - NEB 1 amp Q6H PRN Administration SHORTNESS OF BREATH Amino Acids 30 ml 08/09/19 08:00 09/02/19 09:10 Prosource No Carb Liquid Pkt GT 30 ml BID@0800,1730 TIKI Administration Artificial Tears 1 drop 08/08/19 18:05 08/10/19 10:43 Artificial Tears OU 1 drop Q12H PRN Administration DRY EYES Ascorbic Acid 500 mg 08/09/19 10:00 09/02/19 09:11 Vitamin C Oral Solution - GT 500 mg DAILY TIKI Administration Carvedilol 6.25 mg 08/20/19 09:33 09/02/19 09:11 Coreg - PO 6.25 mg BID TIKI Administration Cholecalciferol 800 unit 08/09/19 10:00 09/02/19 09:11 Vitamin D3 - NR 800 unit DAILY TIKI Administration Enoxaparin Sodium 40 mg 08/15/19 10:00 09/02/19 09:10 Lovenox - SQ 40 mg DAILY TIKI Administration Famotidine 20 mg 08/28/19 22:00 09/02/19 09:10 Pepcid NGT 20 mg BID TIKI Administration Lacosamide 200 mg 08/10/19 22:00 09/02/19 09:11 Vimpat Liquid - PO 200 mg BID TIKI Administration Levetiracetam 1,000 mg 08/10/19 22:00 09/02/19 09:11 Keppra Oral Solution - NGT 1,000 mg BID TIKI Administration Nystatin 500,000 units 08/08/19 18:05 Nystatin Oral Suspension - PO Q6HPO PRN ORAL PAIN/MOUTH SORES Nystatin 1 applic 08/21/19 11:15 09/02/19 09:12 Nystop Powder - TP 1 applic BID TIKI Administration Phenobarbital 60 mg 08/10/19 22:00 09/02/19 09:13 Phenobarbital Liquid - NGT 60 mg BID TIKI Administration Potassium Chloride 40 meq 08/08/19 22:00 09/02/19 09:14 Potassium Chloride Oral Liquid GT 40 meq BID TIKI Administration Quetiapine Fumarate 25 mg 08/18/19 10:45 09/02/19 09:12 Seroquel - PO 25 mg DAILY TIKI Administration Topiramate 200 mg 08/08/19 22:00 09/02/19 14:16 Topamax - GT 200 mg TID TIKI Administration Zinc Sulfate 220 mg 08/08/19 22:00 09/02/19 09:15 Orazinc - GT 220 mg BID TIKI Administration ASSESSMENT AND PLAN: 39 M Acute Resp Failure 2/2 COVID-19 s/p trach/plasma/Actemra Sepsis 2/2 polymicrobial infections (fungemia/bacteremia/COVID) Tachycardia Transaminitis Epilepsy Mental retardation Developmental delay Deconditioning Anemia s/p Trach/PEG, w/ PMV Plan: G tube site clean, afebrile, trial for condom cath and DC rectal tube once stool is formed Cont. PMV, order MBS Not candidate for LTAC/SNF d/t insurance problems Cont. psych meds, Ativan PRN for anxiety/tachypnea Aggressive replacements of electrolytes Cont. to hold abx DVT ppx: Lovenox SC
[2019-09-02] MEDS: ACETAMINOPHEN 325 MG TABLET (FP) PO PRN (23:23)
[2019-09-03] MEDS ORDERED: PT OWN MED DRAWER 7, Y5N ONE ×3 (06:26→21:11)
[2019-09-03] MEDS: TOPIRAMATE 200 MG TABLET GT SCH ×3 (06:38→21:13)
[2019-09-03 08:02] LABS: BASO % 0.4 % (0-2.0); EOS % 2.6 % (0-4.5); HEMATOCRIT 30.1 % (35.4-49); HEMOGLOBIN 9.3 GM/dL (11.7-16.9); MCH 27.2 pg (25.7-33.7); MEAN CELL VOLUME 87.7 fl (80-96); MEAN PLT VOLUME 12.1 fl (7.5-11.1); MONO % 6.6 % (3.8-10.2); NEUT % 69.4 % (42.8-82.8); PLATELET COUNT 221 K/MM3 (134-434); RBC 3.43 M/mm3 (4.00-5.60); RDW 16.9 % (11.9-15.9); WHITE BLOOD COUNT 15.1 K/mm3 (4.0-10.0)
[2019-09-03 08:14] LABS: ALBUMIN 2.4 g/dl (3.4-5.0); BILIRUBIN,TOTAL 0.3 mg/dL (0.2-1); BLOOD UREA NITROGEN 13.8 mg/dL (7-18); CALCIUM 8.8 mg/dL (8.5-10.1); CREATININE 0.4 mg/dL (0.55-1.3); MAGNESIUM 2.2 mg/dL (1.8-2.4); POTASSIUM 3.6 mmol/L (3.5-5.1); TOT PROT 5.9 g/dl (6.4-8.2)
[2019-09-03 10:43] LABS: EPI CELLS 10 /uL (0-25.1); HYALINE CASTS 3 /uL (0-3.1); URINE APPEARANCE CLOUDY; URINE BILIRUBIN NEGATIVE (NEGATIVE); URINE COLOR YELLOW; URINE GLUCOSE (UA) NEGATIVE (NEGATIVE); URINE KETONE NEGATIVE (NEGATIVE); URINE LEUK ESTERASE 3+ (NEGATIVE); URINE NITRITE NEGATIVE (NEGATIVE); URINE PROTEIN TRACE (NEGATIVE); URINE RBC 37 /uL (0-23.9); URINE UROBILINOGEN 0.2 mg/dL (0.2-1.0); URINE WBC 1362 /uL (0-25.8)
[2019-09-03] MEDS ORDERED: ALBUTEROL SO4 2.5/IPRATROPIUM 0.5 INH SOL 3 ML VIAL.NEB. NEB PRN (10:54)
--- NOTE | 2019-09-03 10:59 | PN ---
Progress Note (short form) - Note Progress Note: PULMONARY Vented, awake. No fevers recorded. Placed on CPAP/PS 12/06. Vital Signs Period Temp Pulse Resp BP Sys/Ortiz Pulse Ox Last 24 Hr 98.2 F-101.2 F 103-122 20-30 121-147/76-94 100-100 Gen: vented, awake Heart: tachycardic, regular Lung: decreased breath sounds at the bases Abd: soft, nontender Ext: no edema CBC, BMP 09/03/19 06:50 09/03/19 06:50 Active Medications Acetaminophen (Tylenol -) 650 mg PO Q6H PRN PRN Reason: Fever Or Pain Last Admin: 09/02/19 23:23 Dose: 650 mg Documented by: Albuterol/Ipratropium (Duoneb -) 1 amp NEB Q6H PRN PRN Reason: SHORTNESS OF BREATH Last Admin: 08/27/19 04:30 Dose: 1 amp Documented by: Albuterol/Ipratropium (Duoneb -) 1 amp NEB Q6H PRN PRN Reason: SHORTNESS OF BREATH Amino Acids (Prosource No Carb Liquid Pkt) 30 ml GT BID@0800,1730 [facility] Last Admin: 09/02/19 18:00 Dose: 30 ml Documented by: Artificial Tears (Artificial Tears) 1 drop OU Q12H PRN PRN Reason: DRY EYES Last Admin: 08/10/19 10:43 Dose: 1 drop Documented by: Ascorbic Acid (Vitamin C Oral Solution -) 500 mg GT DAILY [facility] Last Admin: 09/02/19 09:11 Dose: 500 mg Documented by: Carvedilol (Coreg -) 6.25 mg PO BID [facility] Last Admin: 09/02/19 22:43 Dose: 6.25 mg Documented by: Cholecalciferol (Vitamin D3 -) 800 unit NR DAILY [facility] Last Admin: 09/02/19 09:11 Dose: 800 unit Documented by: Enoxaparin Sodium (Lovenox -) 40 mg SQ DAILY [facility] Last Admin: 09/02/19 09:10 Dose: 40 mg Documented by: Famotidine (Pepcid) 20 mg NGT BID [facility] Last Admin: 09/02/19 22:44 Dose: 20 mg Documented by: Lacosamide (Vimpat Liquid -) 200 mg PO BID [facility] Last Admin: 09/02/19 22:47 Dose: 200 mg Documented by: Levetiracetam (Keppra Oral Solution -) 1,000 mg NGT BID [facility] Last Admin: 09/02/19 22:43 Dose: 1,000 mg Documented by: Nystatin (Nystatin Oral Suspension -) 500,000 units PO Q6HPO PRN PRN Reason: ORAL PAIN/MOUTH SORES Nystatin (Nystop Powder -) 1 applic TP BID [facility] Last Admin: 09/02/19 22:44 Dose: 1 applic Documented by: Phenobarbital (Phenobarbital Liquid -) 60 mg NGT BID [facility] Last Admin: 09/02/19 22:43 Dose: 60 mg Documented by: Potassium Chloride (Potassium Chloride Oral Liquid) 40 meq GT BID [facility] Last Admin: 09/02/19 22:44 Dose: 40 meq Documented by: Quetiapine Fumarate (Seroquel -) 25 mg PO DAILY [facility] Last Admin: 09/02/19 09:12 Dose: 25 mg Documented by: Topiramate (Topamax -) 200 mg GT TID [facility] Last Admin: 09/03/19 06:38 Dose: 200 mg Documented by: Zinc Sulfate (Orazinc -) 220 mg GT BID [facility] Last Admin: 09/02/19 22:44 Dose: 220 mg Documented by: A/P Acute Hypoxic and Hypercapneic Respiratory Failure COVID19 Pneumonia E Coli Pneumonia Fungenmia Bacteremia Septic Shock Seizure Disorder Mental Retardation - completed antibiotics - continue antiepileptics - monitor urine output, creatinine - spontaeneous breathing trials as tolerated - PO as tolerated - DVT/GI prophylaxis
[2019-09-03] MEDS: CARVEDILOL 6.25 MG TABLET (FP) PO SCH ×2 (11:03→21:15)
[2019-09-03] MEDS: AMINO ACIDS/PROTEIN HYDROLYS 30 ML LIQUID.PKT GT SCH ×2 (11:04→17:21)
[2019-09-03] MEDS: QUEtiapine FUMARATE 25 MG TABLET PO SCH (11:04)
[2019-09-03] MEDS: ENOXAPARIN NA (PORCINE) 40 MG/0.4 ML DISP.SYRIN SQ SCH (11:04)
[2019-09-03] MEDS: ACETAMINOPHEN 325 MG TABLET (FP) PO PRN ×2 (11:04→17:21)
[2019-09-03] MEDS: PHENobarbital 20 MG/5 ML UNIT-DOSE CUP NGT SCH ×2 (11:05→21:14)
[2019-09-03] MEDS: NYSTATIN POWDER 100,000 UNITS/GM - 15 GM TOPICAL POWDER TP SCH ×2 (11:06→21:15)
[2019-09-03] MEDS: levETIRAcetam 500 MG/5 ML ORAL SOLUTION (UNIT-DOSE CUPS) NGT SCH ×2 (11:06→21:15)
[2019-09-03] MEDS: CHOLECALCIFEROL (VIT D3) 400 UNIT (10 MCG) TABLET NR SCH (11:07)
[2019-09-03] MEDS: ZINC SULFATE 220 MG CAPSULE (FP) GT SCH ×2 (11:07→21:16)
[2019-09-03] MEDS: FAMOTIDINE 40 MG/5 ML ORAL SUSPENSION NGT SCH ×2 (11:07→21:13)
[2019-09-03] MEDS: ASCORBIC ACID 500 MG/5 ML UNIT DOSE CUP GT SCH (11:07)
[2019-09-03] MEDS: Lacosamide 50 MG/5 ML ORAL SOLUTION UNIT CUPS PO SCH ×2 (11:07→21:14)
[2019-09-03] MEDS: POTASSIUM CHLORIDE ORAL LIQUID 20 MEQ/15 ML GT SCH ×2 (11:12→21:14)
--- NOTE | 2019-09-03 11:18 | PN ---
Progress Note, [employer] - Note Progress Note: Selected Entries 09/02/19 09/02/19 09/02/19 02:00 06:00 10:00 Supper Temperature 97.3 F L 98.3 F 99 F Blood Pressure 138/97 129/80 137/95 09/02/19 09/02/19 09/02/19 14:00 18:00 22:00 Supper NPO Temperature 100.2 F H 98.2 F 99.2 F Blood Pressure 133/83 130/80 147/86 09/02/19 09/03/19 09/03/19 23:22 01:48 05:00 Supper Temperature 101.2 F H 100.6 F H 100.1 F H Blood Pressure 121/76 143/94 Laboratory Tests 09/02/19 09/03/19 08:15 06:50 WBC 16.7 H 15.1 H MBS completed yesterday with mild silent aspiration. Continue NPO, use of PMV, as tolerated to expedite weaning and improving communication and swallowing function. Repeat MBS next week if pt continues to improve.
--- NOTE | 2019-09-03 15:44 | PN ---
Physical Exam: SUBJECTIVE: Patient seen and examined at bedside this morning. Patient developed fevers overnight. OBJECTIVE: Vital Signs Temperature 100.2 F H 09/03/19 15:00 Pulse Rate 109 H 09/03/19 14:00 Respiratory Rate 25 H 09/03/19 15:19 Blood Pressure 110/72 09/03/19 14:00 O2 Sat by Pulse Oximetry (%) 100 09/03/19 09:40 GENERAL: The patient is awake, alert, nonverbal, follows commands EYES: PERRLA, EOMI EENT:moist mucous membranes. NECK: Trach in place LUNGS: Breath sounds equal, clear to auscultation bilaterally HEART: tachycardic, regular, S1, S2 ABDOMEN: Soft, nontender, nondistended, Percutaneous G tube in place, clean dry and intact EXTREMITIES: 2+ pulses, warm, well-perfused, no edema. Laboratory Results - last 24 hr 08/27/19 09/03/19 09/03/19 15:20 06:50 06:50 WBC 15.1 H RBC 3.43 L Hgb 9.3 L Hct 30.1 L MCV 87.7 MCH 27.2 MCHC 31.0 L RDW 16.9 H Plt Count 221 MPV 12.1 H Absolute Neuts (auto) 10.5 H Neutrophils % 69.4 Lymphocytes % 21.0 D Monocytes % 6.6 Eosinophils % 2.6 Basophils % 0.4 Nucleated RBC % 0 Sodium 141 Potassium 3.6 Chloride 111 H Carbon Dioxide 24 Anion Gap 6 L BUN 13.8 Creatinine 0.4 L Est GFR (CKD-EPI)AfAm 174.63 Est GFR (CKD-EPI)NonAf 150.67 Random Glucose 129 H Calcium 8.8 Magnesium 2.2 Total Bilirubin 0.3 AST 47 H ALT 131 H Alkaline Phosphatase 140 H Total Protein 5.9 L Albumin 2.4 L Urine Color Urine Appearance Urine pH Ur Specific [place] Urine Protein Urine Glucose (UA) Urine Ketones Urine Blood Urine Nitrite Urine Bilirubin Urine Urobilinogen Ur Leukocyte Esterase Urine WBC (Auto) Urine RBC (Auto) Urine Casts (Auto) U Epithel Cells (Auto) Urine Bacteria (Auto) Stool O & P Wet [place] Permanent Slide Final report 09/03/19 09:30 WBC RBC Hgb Hct MCV MCH MCHC RDW Plt Count MPV Absolute Neuts (auto) Neutrophils % Lymphocytes % Monocytes % Eosinophils % Basophils % Nucleated RBC % Sodium Potassium Chloride Carbon Dioxide Anion Gap BUN Creatinine Est GFR (CKD-EPI)AfAm Est GFR (CKD-EPI)NonAf Random Glucose Calcium Magnesium Total Bilirubin AST ALT Alkaline Phosphatase Total Protein Albumin Urine Color Yellow Urine Appearance Cloudy Urine pH 8.0 D Ur Specific [place] 1.011 Urine Protein Trace Urine Glucose (UA) Negative Urine Ketones Negative Urine Blood Trace Urine Nitrite Negative Urine Bilirubin Negative Urine Urobilinogen 0.2 Ur Leukocyte Esterase 3+ H Urine WBC (Auto) 1362 Urine RBC (Auto) 37 Urine Casts (Auto) 3 U Epithel Cells (Auto) 10 Urine Bacteria (Auto) >10,000 Stool O & P Wet [place] Permanent Slide Active Medications Generic Name Dose Route Start Last Admin Trade Name Freq PRN Reason Stop Dose Admin Acetaminophen 650 mg 08/21/19 13:08 09/03/19 11:04 Tylenol - PO 650 mg Q6H PRN Administration Fever Or Pain Albuterol/Ipratropium 1 amp 08/16/19 13:19 08/27/19 04:30 Duoneb - NEB 1 amp Q6H PRN Administration SHORTNESS OF BREATH Albuterol/Ipratropium 1 amp 09/03/19 10:54 Duoneb - NEB Q6H PRN SHORTNESS OF BREATH Amino Acids 30 ml 08/09/19 08:00 09/03/19 11:04 Prosource No Carb Liquid Pkt GT 30 ml BID@0800,1730 TIKI Administration Artificial Tears 1 drop 08/08/19 18:05 08/10/19 10:43 Artificial Tears OU 1 drop Q12H PRN Administration DRY EYES Ascorbic Acid 500 mg 08/09/19 10:00 09/03/19 11:07 Vitamin C Oral Solution - GT 500 mg DAILY TIKI Administration Carvedilol 6.25 mg 08/20/19 09:33 09/03/19 11:03 Coreg - PO 6.25 mg BID TIKI Administration Cholecalciferol 800 unit 08/09/19 10:00 09/03/19 11:07 Vitamin D3 - NR 800 unit DAILY TIKI Administration Enoxaparin Sodium 40 mg 08/15/19 10:00 09/03/19 11:04 Lovenox - SQ 40 mg DAILY TIKI Administration Famotidine 20 mg 08/28/19 22:00 09/03/19 11:07 Pepcid NGT 20 mg BID TIKI Administration Lacosamide 200 mg 08/10/19 22:00 09/03/19 11:07 Vimpat Liquid - PO 200 mg BID TIKI Administration Levetiracetam 1,000 mg 08/10/19 22:00 09/03/19 11:06 Keppra Oral Solution - NGT 1,000 mg BID TIKI Administration Nystatin 500,000 units 08/08/19 18:05 Nystatin Oral Suspension - PO Q6HPO PRN ORAL PAIN/MOUTH SORES Nystatin 1 applic 08/21/19 11:15 09/03/19 11:06 Nystop Powder - TP 1 applic BID TIKI Administration Phenobarbital 60 mg 08/10/19 22:00 09/03/19 11:05 Phenobarbital Liquid - NGT 60 mg BID TIKI Administration Potassium Chloride 40 meq 08/08/19 22:00 09/03/19 11:12 Potassium Chloride Oral Liquid GT 40 meq BID TIKI Administration Quetiapine Fumarate 25 mg 08/18/19 10:45 09/03/19 11:04 Seroquel - PO 25 mg DAILY TIKI Administration Topiramate 200 mg 08/08/19 22:00 09/03/19 06:38 Topamax - GT 200 mg TID TIKI Administration Zinc Sulfate 220 mg 08/08/19 22:00 09/03/19 11:07 Orazinc - GT 220 mg BID TIKI Administration ASSESSMENT/PLAN: Patient is a 39 y/o M with H Mental Retardation and epilepsy who presented to ED initially with SOB and hypoxia requiring intubation, admitted to hospital for hypoxic respiratory failure 2/2 to [place] [facility]-. Hospital course complicated by bacteremia, fungemia, MRSA PNA, now with recurrent fever. #Acute Resp Failure 2/2 COVID-19 -s/p trach, convalescent plasma, tocilizumab -on AC vent settings. Weaning as tolerated -Pulm on board #Fever -persistent leukocytosis -Sputum Cx (08/21/2019) pos for MRSA, Dapto sensitive and E. coli, carbapenem sensitive -Blood cultures, urine cultures, cxr done -ID on board. F/u Recs. Presently observing off Abx -Nephro on board #Transaminitis -persistent since admission -as of yet, no clear source identified -per GI, pt will potentially require a biopsy #Tachycardia -c/w Coreg -c/w low-dose seroquel to treat potential contribution of anxiety #Epilepsy -c/w lorazepam prn, levetiracitam, phenobarbitol, lacosamide, topiramate #FEN -not on any standing fluids -electrolytes wnl, routine bmp monitoring -Tube feed Jevity 1.5 #Prophylaxis -Lovenox 40mg sq daily #Disposition -full code - pending SNF placement Visit type - Emergency Visit Emergency Visit: Yes ED Registration Date: 06/22/19 Care time: The patient presented to the Emergency Department on the above date and was hospitalized for further evaluation of their emergent condition. - New Patient This patient is new to me today: No - Critical Care Critical Care patient: No ATTENDING PHYSICIAN STATEMENT I saw and evaluated the patient. I reviewed the resident's note and discussed the case with the resident. I agree with the resident's findings and plan as documented. SUBJECTIVE: OBJECTIVE: ASSESSMENT AND PLAN:
--- NOTE | 2019-09-03 16:33 | PN ---
Teaching Attending Note Name of Resident: Kae Pack ATTENDING PHYSICIAN STATEMENT I saw and evaluated the patient. I reviewed the resident's note and discussed the case with the resident. I agree with the resident's findings and plan as documented. SUBJECTIVE: Patient seen and examined bedside, fever spikes noted, ?unknown fever source will DC anthony/rectal tube, ID following. VSS. 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 ASSESSOR: Alert nonverbal Vital Signs - 24 hr 09/02/19 09/02/19 09/02/19 18:00 21:00 21:11 Temperature 98.2 F Pulse Rate 106 H Respiratory 28 H Rate Blood Pressure 130/80 O2 Sat by Pulse 100 100 Oximetry (%) 09/02/19 09/02/19 09/03/19 22:00 23:22 00:58 Temperature 99.2 F 101.2 F H Pulse Rate 120 H Respiratory 22 H 30 H Rate Blood Pressure 147/86 O2 Sat by Pulse 100 Oximetry (%) 09/03/19 09/03/19 09/03/19 01:48 05:00 05:40 Temperature 100.6 F H 100.1 F H Pulse Rate 122 H 110 H Respiratory 20 20 28 H Rate Blood Pressure 121/76 143/94 O2 Sat by Pulse 100 Oximetry (%) 09/03/19 09/03/19 09/03/19 09:30 09:40 12:00 Temperature 100.1 F H Pulse Rate 90 Respiratory 24 H 27 H 25 H Rate Blood Pressure 114/78 O2 Sat by Pulse 100 Oximetry (%) 09/03/19 09/03/19 09/03/19 14:00 15:00 15:19 Temperature 98.9 F 100.2 F H Pulse Rate 109 H Respiratory 30 H 25 H Rate Blood Pressure 110/72 O2 Sat by Pulse Oximetry (%) Microbiology 08/26/19 11:05 Blood - Peripheral Venous Blood Culture - Final NO GROWTH AFTER 5 DAYS INCUBATION 08/26/19 11:05 Blood - Peripheral Venous Blood Culture - Final NO GROWTH AFTER 5 DAYS INCUBATION 08/26/19 20:40 Sputum - Endotrachea Suction/Ventilator Gram Stain - Final 08/26/19 20:40 Sputum - Endotrachea Suction/Ventilator Sputum Culture - Final S Aureus Escherichia Coli 08/26/19 19:15 Urine - Urine Anthony Urine Culture - Final NO GROWTH OBTAINED 08/26/19 22:15 Stool Cryptosporidium Antigen - Final 08/26/19 22:15 Stool Giardia Antigen (JASSON) - Final 08/26/19 12:10 Urine - Urine Anthony Legionella Antigen - Final 08/26/19 12:10 Urine - Urine Anthony Streptococcus pneumoniae Antigen (M - Final 08/20/19 20:20 Blood - Peripheral Venous Blood Culture - Final NO GROWTH AFTER 5 DAYS INCUBATION 08/20/19 20:20 Blood - Peripheral Venous Blood Culture - Final NO GROWTH AFTER 5 DAYS INCUBATION 08/21/19 03:17 Sputum - Endotrachea Suction/Ventilator AFB Smear Concentration - Final 08/21/19 03:17 Sputum - Endotrachea Suction/Ventilator Mycobacterial Culture - Preliminary 08/20/19 05:00 Sputum - Endotrachea Suction/Ventilator AFB Smear Concentration - Final 08/20/19 05:00 Sputum - Endotrachea Suction/Ventilator Mycobacterial Culture - Preliminary 08/21/19 03:17 Sputum - Endotrachea Suction/Ventilator Gram Stain - Final 08/21/19 03:17 Sputum - Endotrachea Suction/Ventilator Sputum Culture - Final S Aureus 08/17/19 02:00 Blood - Peripheral Venous Blood Culture - Final NO GROWTH AFTER 5 DAYS INCUBATION 08/17/19 02:00 Blood - Peripheral Venous Blood Culture - Final NO GROWTH AFTER 5 DAYS INCUBATION 08/20/19 19:30 Stool Clostridioides difficile Antigen - Final 08/20/19 19:30 Stool Clostridioides difficile Toxin Assay - Final 08/20/19 19:30 Urine For Antigen Detection Legionella Antigen - Final 08/20/19 19:30 Urine For Antigen Detection Streptococcus pneumoniae Antigen (M - Final 08/18/19 12:00 Sputum - Endotrachea Suction/Ventilator AFB Smear Concentration - Final 08/18/19 12:00 Sputum - Endotrachea Suction/Ventilator Mycobacterial Culture - Preliminary 08/17/19 11:35 Urine - Urine Anthony Urine Culture - Final NO GROWTH OBTAINED 08/12/19 13:10 Blood - Peripheral Venous Blood Culture - Final NO GROWTH AFTER 5 DAYS INCUBATION 08/12/19 13:00 Blood - Peripheral Venous Blood Culture - Final NO GROWTH AFTER 5 DAYS INCUBATION 08/14/19 14:50 Sputum - Endotrachea Suction/Ventilator Gram Stain - Final 08/14/19 14:50 Sputum - Endotrachea Suction/Ventilator Sputum Culture - Final NORMAL RESPIRATORY RICKY 08/14/19 14:49 Stool Clostridioides difficile Antigen - Final 08/14/19 14:49 Stool Clostridioides difficile Toxin Assay - Final 08/09/19 11:45 Blood - Peripheral Venous Blood Culture - Final NO GROWTH AFTER 5 DAYS INCUBATION 08/09/19 11:52 Blood - Peripheral Venous Blood Culture - Final NO GROWTH AFTER 5 DAYS INCUBATION 08/12/19 14:45 Stool Clostridioides difficile Antigen - Final 08/12/19 14:45 Stool Clostridioides difficile Toxin Assay - Final 08/09/19 16:30 Urine - Urine Anthony Urine Culture - Final NO GROWTH OBTAINED 08/04/19 19:40 Blood - Peripheral Venous Blood Culture - Final Staphylococcus Capitis 08/04/19 19:50 Blood - Peripheral Venous Blood Culture - Final NO GROWTH AFTER 5 DAYS INCUBATION 08/05/19 13:45 Urine - Urine Anthony Urine Culture - Final NO GROWTH OBTAINED 07/31/19 16:30 Blood - Peripheral Venous Blood Culture - Final NO GROWTH AFTER 5 DAYS INCUBATION 07/31/19 17:25 Blood - Peripheral Venous Blood Culture - Final Staphylococcus Capitis 08/01/19 11:55 Sputum - Endotrachea Suction/Ventilator Gram Stain - Final 08/01/19 11:55 Sputum - Endotrachea Suction/Ventilator Sputum Culture - Final Mr S Aureus 07/29/19 11:46 Blood - Peripheral Venous Blood Culture - Final NO GROWTH AFTER 5 DAYS INCUBATION 07/29/19 11:18 Blood - Central Line Blood Culture - Final NO GROWTH AFTER 5 DAYS INCUBATION 07/29/19 11:18 Urine - Urine Anthony Urine Culture - Final NO GROWTH OBTAINED 07/12/19 11:04 Blood - Peripheral Venous Yeast/Fungus Identification - Final Janis Lusitaniae 07/18/19 21:10 Blood - Peripheral Venous Blood Culture - Final NO GROWTH AFTER 5 DAYS INCUBATION 07/18/19 18:30 Blood - Peripheral Venous Blood Culture - Final NO GROWTH AFTER 5 DAYS INCUBATION 07/15/19 12:25 Blood - Peripheral Venous Blood Culture - Final NO GROWTH AFTER 5 DAYS INCUBATION 07/16/19 15:15 Blood - Peripheral Venous Blood Culture - Final Staphylococcus Epidermidis 07/14/19 11:30 Blood - Peripheral Venous Blood Culture - Final NO GROWTH AFTER 5 DAYS INCUBATION 07/16/19 15:05 Blood - Peripheral Venous Blood Culture - Final Staphylococcus Epidermidis 07/16/19 12:30 Sputum - Endotrachea Suction/Ventilator Gram Stain - Final 07/16/19 12:30 Sputum - Endotrachea Suction/Ventilator Sputum Culture - Final Mr S Aureus Escherichia Coli 07/12/19 10:55 Blood - Peripheral Venous Blood Culture - Final NO GROWTH AFTER 5 DAYS INCUBATION 07/16/19 12:30 Urine - Urine - Catheterized Urine Culture - Final NO GROWTH OBTAINED 07/12/19 06:00 Sputum - Endotrachea Suction/Ventilator Gram Stain - Final 07/12/19 06:00 Sputum - Endotrachea Suction/Ventilator Sputum Culture - Final 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 Mr S Aureus 07/12/19 11:04 Blood - Peripheral Venous Blood Culture - Final 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 07/01/19 18:15 Blood - Peripheral Venous Blood Culture - Final NO GROWTH AFTER 5 DAYS INCUBATION 06/29/19 12:30 Blood - Peripheral Venous Blood Culture - Final Staphylococcus Epidermidis 06/30/19 17:15 Sputum - Endotrachea Suction/Ventilator Gram Stain - Final 06/30/19 17:15 Sputum - Endotrachea Suction/Ventilator Sputum Culture - Final Escherichia Coli Esbl Carousel Operator 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 06/28/19 09:00 Blood - Peripheral Venous Blood Culture - Final Staphylococcus Epidermidis 06/28/19 12:50 Sputum - Endotrachea Suction/Ventilator Gram Stain - Final 06/28/19 12:50 Sputum - Endotrachea Suction/Ventilator Sputum Culture - Final 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 Staphylococcus Aureus 06/25/19 13:40 Blood - Peripheral Venous Blood Culture - Final NO GROWTH AFTER 5 DAYS INCUBATION 06/25/19 13:20 Blood - Peripheral Venous Blood Culture - Final NO GROWTH AFTER 5 DAYS INCUBATION 06/28/19 12:51 Urine - Urine Anthony Urine Culture - Final NO GROWTH OBTAINED 06/22/19 13:00 Blood - Peripheral Venous Blood Culture - Final Staphylococcus Warneri 06/22/19 13:00 Blood - Peripheral Venous Blood Culture - Final Staphylococcus Epidermidis 06/24/19 00:01 Urine - Urine Anthony Urine Culture - Final NO GROWTH OBTAINED 06/24/19 00:01 Urine For Antigen Detection Legionella Antigen - Final 06/24/19 00:01 Urine For Antigen Detection Streptococcus pneumoniae Antigen (M - Final Laboratory Results - last 24 hr 08/27/19 09/03/19 09/03/19 15:20 06:50 06:50 WBC 15.1 H RBC 3.43 L Hgb 9.3 L Hct 30.1 L MCV 87.7 MCH 27.2 MCHC 31.0 L RDW 16.9 H Plt Count 221 MPV 12.1 H Absolute Neuts (auto) 10.5 H Neutrophils % 69.4 Lymphocytes % 21.0 D Monocytes % 6.6 Eosinophils % 2.6 Basophils % 0.4 Nucleated RBC % 0 Sodium 141 Potassium 3.6 Chloride 111 H Carbon Dioxide 24 Anion Gap 6 L BUN 13.8 Creatinine 0.4 L Est GFR (CKD-EPI)AfAm 174.63 Est GFR (CKD-EPI)NonAf 150.67 Random Glucose 129 H Calcium 8.8 Magnesium 2.2 Total Bilirubin 0.3 AST 47 H ALT 131 H Alkaline Phosphatase 140 H Total Protein 5.9 L Albumin 2.4 L Urine Color Urine Appearance Urine pH Ur Specific [place] Urine Protein Urine Glucose (UA) Urine Ketones Urine Blood Urine Nitrite Urine Bilirubin Urine Urobilinogen Ur Leukocyte Esterase Urine WBC (Auto) Urine RBC (Auto) Urine Casts (Auto) U Epithel Cells (Auto) Urine Bacteria (Auto) Stool O & P Wet [place] Permanent Slide Final report 09/03/19 09:30 WBC RBC Hgb Hct MCV MCH MCHC RDW Plt Count MPV Absolute Neuts (auto) Neutrophils % Lymphocytes % Monocytes % Eosinophils % Basophils % Nucleated RBC % Sodium Potassium Chloride Carbon Dioxide Anion Gap BUN Creatinine Est GFR (CKD-EPI)AfAm Est GFR (CKD-EPI)NonAf Random Glucose Calcium Magnesium Total Bilirubin AST ALT Alkaline Phosphatase Total Protein Albumin Urine Color Yellow Urine Appearance Cloudy Urine pH 8.0 D Ur Specific [place] 1.011 Urine Protein Trace Urine Glucose (UA) Negative Urine Ketones Negative Urine Blood Trace Urine Nitrite Negative Urine Bilirubin Negative Urine Urobilinogen 0.2 Ur Leukocyte Esterase 3+ H Urine WBC (Auto) 1362 Urine RBC (Auto) 37 Urine Casts (Auto) 3 U Epithel Cells (Auto) 10 Urine Bacteria (Auto) >10,000 Stool O & P Wet [place] Permanent Slide Home Medications Medication Instructions Recorded Topiramate [Topamax -] 200 mg PO TID #90 tablet 06/10/18 Lacosamide [Vimpat] 200 mg PO BID #60 tablet MDD 2 06/11/18 Phenobarbital - 60 mg PO BID #120 tablet MDD 4 06/11/18 levETIRAcetam [Keppra -] 1,000 mg PO BID 06/22/19 Current Medications Generic Name Dose Route Start Last Admin Trade Name Freq PRN Reason Stop Dose Admin Acetaminophen 650 mg 08/21/19 13:08 09/03/19 11:04 Tylenol - PO 650 mg Q6H PRN Administration Fever Or Pain Albuterol/Ipratropium 1 amp 08/16/19 13:19 08/27/19 04:30 Duoneb - NEB 1 amp Q6H PRN Administration SHORTNESS OF BREATH Albuterol/Ipratropium 1 amp 09/03/19 10:54 Duoneb - NEB Q6H PRN SHORTNESS OF BREATH Amino Acids 30 ml 08/09/19 08:00 09/03/19 11:04 Prosource No Carb Liquid Pkt GT 30 ml BID@0800,1730 TIKI Administration Artificial Tears 1 drop 08/08/19 18:05 08/10/19 10:43 Artificial Tears OU 1 drop Q12H PRN Administration DRY EYES Ascorbic Acid 500 mg 08/09/19 10:00 09/03/19 11:07 Vitamin C Oral Solution - GT 500 mg DAILY TIKI Administration Carvedilol 6.25 mg 08/20/19 09:33 09/03/19 11:03 Coreg - PO 6.25 mg BID TIKI Administration Cholecalciferol 800 unit 08/09/19 10:00 09/03/19 11:07 Vitamin D3 - NR 800 unit DAILY TIKI Administration Enoxaparin Sodium 40 mg 08/15/19 10:00 09/03/19 11:04 Lovenox - SQ 40 mg DAILY TIKI Administration Famotidine 20 mg 08/28/19 22:00 09/03/19 11:07 Pepcid NGT 20 mg BID TIKI Administration Lacosamide 200 mg 08/10/19 22:00 09/03/19 11:07 Vimpat Liquid - PO 200 mg BID TIKI Administration Levetiracetam 1,000 mg 08/10/19 22:00 09/03/19 11:06 Keppra Oral Solution - NGT 1,000 mg BID TIKI Administration Nystatin 500,000 units 08/08/19 18:05 Nystatin Oral Suspension - PO Q6HPO PRN ORAL PAIN/MOUTH SORES Nystatin 1 applic 08/21/19 11:15 09/03/19 11:06 Nystop Powder - TP 1 applic BID TIKI Administration Phenobarbital 60 mg 08/10/19 22:00 09/03/19 11:05 Phenobarbital Liquid - NGT 60 mg BID TIKI Administration Potassium Chloride 40 meq 08/08/19 22:00 09/03/19 11:12 Potassium Chloride Oral Liquid GT 40 meq BID TIKI Administration Quetiapine Fumarate 25 mg 08/18/19 10:45 09/03/19 11:04 Seroquel - PO 25 mg DAILY TIKI Administration Topiramate 200 mg 08/08/19 22:00 09/03/19 15:50 Topamax - GT 200 mg TID TIKI Administration Zinc Sulfate 220 mg 08/08/19 22:00 09/03/19 11:07 Orazinc - GT 220 mg BID TIKI Administration ASSESSMENT AND PLAN: 39 M Acute Resp Failure 2/2 COVID-19 s/p trach/plasma/Actemra Sepsis 2/2 polymicrobial infections (fungemia/bacteremia/COVID) Recurrent fever spikes Tachycardia Transaminitis Epilepsy Mental retardation Developmental delay Deconditioning Anemia s/p Trach/PEG, w/ PMV Plan: G tube site clean, now febrile, will DC anthony and rectal tube and attempt [place] catheter Not candidate for LTAC/SNF d/t insurance problems Cont. psych meds, Ativan PRN for anxiety/tachypnea Aggressive replacements of electrolytes Cont. to hold abx If continuously spiking fever change AC to therapeutic DVT ppx: Lovenox SC
--- NOTE | 2019-09-03 19:18 | PN ---
Progress Note, Physician History of Present Illness: Pt seen and examined. No great change in status. He had a low grade fever and was tachycardic. - Current Medication List Current Medications: Active Medications Acetaminophen (Tylenol -) 650 mg PO Q6H PRN PRN Reason: Fever Or Pain Last Admin: 09/03/19 17:21 Dose: 650 mg Documented by: Albuterol/Ipratropium (Duoneb -) 1 amp NEB Q6H PRN PRN Reason: SHORTNESS OF BREATH Last Admin: 08/27/19 04:30 Dose: 1 amp Documented by: Albuterol/Ipratropium (Duoneb -) 1 amp NEB Q6H PRN PRN Reason: SHORTNESS OF BREATH Amino Acids (Prosource No Carb Liquid Pkt) 30 ml GT BID@0800,1730 [facility] Last Admin: 09/03/19 17:21 Dose: 30 ml Documented by: Artificial Tears (Artificial Tears) 1 drop OU Q12H PRN PRN Reason: DRY EYES Last Admin: 08/10/19 10:43 Dose: 1 drop Documented by: Ascorbic Acid (Vitamin C Oral Solution -) 500 mg GT DAILY [facility] Last Admin: 09/03/19 11:07 Dose: 500 mg Documented by: Carvedilol (Coreg -) 6.25 mg PO BID [facility] Last Admin: 09/03/19 11:03 Dose: 6.25 mg Documented by: Cholecalciferol (Vitamin D3 -) 800 unit NR DAILY [facility] Last Admin: 09/03/19 11:07 Dose: 800 unit Documented by: Enoxaparin Sodium (Lovenox -) 40 mg SQ DAILY [facility] Last Admin: 09/03/19 11:04 Dose: 40 mg Documented by: Famotidine (Pepcid) 20 mg NGT BID [facility] Last Admin: 09/03/19 11:07 Dose: 20 mg Documented by: Lacosamide (Vimpat Liquid -) 200 mg PO BID [facility] Last Admin: 09/03/19 11:07 Dose: 200 mg Documented by: Levetiracetam (Keppra Oral Solution -) 1,000 mg NGT BID [facility] Last Admin: 09/03/19 11:06 Dose: 1,000 mg Documented by: Nystatin (Nystatin Oral Suspension -) 500,000 units PO Q6HPO PRN PRN Reason: ORAL PAIN/MOUTH SORES Nystatin (Nystop Powder -) 1 applic TP BID [facility] Last Admin: 09/03/19 11:06 Dose: 1 applic Documented by: Phenobarbital (Phenobarbital Liquid -) 60 mg NGT BID [facility] Last Admin: 09/03/19 11:05 Dose: 60 mg Documented by: Potassium Chloride (Potassium Chloride Oral Liquid) 40 meq GT BID [facility] Last Admin: 09/03/19 11:12 Dose: 40 meq Documented by: Quetiapine Fumarate (Seroquel -) 25 mg PO DAILY [facility] Last Admin: 09/03/19 11:04 Dose: 25 mg Documented by: Topiramate (Topamax -) 200 mg GT TID [facility] Last Admin: 09/03/19 15:50 Dose: 200 mg Documented by: Zinc Sulfate (Orazinc -) 220 mg GT BID [facility] Last Admin: 09/03/19 11:07 Dose: 220 mg Documented by: - Objective Vital Signs: Vital Signs Temperature 97.9 F 09/03/19 18:00 Pulse Rate 104 H 09/03/19 18:00 Respiratory Rate 28 H 09/03/19 18:00 Blood Pressure 126/80 09/03/19 18:00 O2 Sat by Pulse Oximetry (%) 100 09/03/19 17:34 Constitutional: Yes: Calm Eyes: Yes: Conjunctiva Clear HENT: Yes: Atraumatic Neck: Yes: Supple Cardiovascular: Yes: S1, S2 Respiratory: Yes: Mechanically Ventilated Gastrointestinal: Yes: Normal Bowel Sounds, Soft Genitourinary: Yes: Incontinence Musculoskeletal: Yes: Muscle Weakness Neurological: Yes: Pre-Existing Deficit Labs: CBC, BMP 09/03/19 06:50 09/03/19 06:50 INR, PTT INR 1.20 (0.83-1.09) H 08/21/19 11:30 Problem List - Problems (1) Hypernatremia Code(s): E87.0 - HYPEROSMOLALITY AND HYPERNATREMIA (2) Hypokalemia Code(s): E87.6 - HYPOKALEMIA (3) Acute respiratory failure with hypoxia Code(s): J96.01 - ACUTE RESPIRATORY FAILURE WITH HYPOXIA (4) Bacteremia Code(s): R78.81 - BACTEREMIA Assessment/Plan Current Medications Generic Name Dose Route Start Last Admin Trade Name Freq PRN Reason Stop Dose Admin Acetaminophen 650 mg 08/21/19 13:08 09/03/19 17:21 Tylenol - PO 650 mg Q6H PRN Administration Fever Or Pain Albuterol/Ipratropium 1 amp 08/16/19 13:19 08/27/19 04:30 Duoneb - NEB 1 amp Q6H PRN Administration SHORTNESS OF BREATH Albuterol/Ipratropium 1 amp 09/03/19 10:54 Duoneb - NEB Q6H PRN SHORTNESS OF BREATH Amino Acids 30 ml 08/09/19 08:00 09/03/19 17:21 Prosource No Carb Liquid Pkt GT 30 ml BID@0800,1730 [facility] Administration Artificial Tears 1 drop 08/08/19 18:05 08/10/19 10:43 Artificial Tears OU 1 drop Q12H PRN Administration DRY EYES Ascorbic Acid 500 mg 08/09/19 10:00 09/03/19 11:07 Vitamin C Oral Solution - GT 500 mg DAILY [facility] Administration Carvedilol 6.25 mg 08/20/19 09:33 09/03/19 11:03 Coreg - PO 6.25 mg BID [facility] Administration Cholecalciferol 800 unit 08/09/19 10:00 09/03/19 11:07 Vitamin D3 - NR 800 unit DAILY [facility] Administration Enoxaparin Sodium 40 mg 08/15/19 10:00 09/03/19 11:04 Lovenox - SQ 40 mg DAILY [facility] Administration Famotidine 20 mg 08/28/19 22:00 09/03/19 11:07 Pepcid NGT 20 mg BID [facility] Administration Lacosamide 200 mg 08/10/19 22:00 09/03/19 11:07 Vimpat Liquid - PO 200 mg BID [facility] Administration Levetiracetam 1,000 mg 08/10/19 22:00 09/03/19 11:06 Keppra Oral Solution - NGT 1,000 mg BID [facility] Administration Nystatin 500,000 units 08/08/19 18:05 Nystatin Oral Suspension - PO Q6HPO PRN ORAL PAIN/MOUTH SORES Nystatin 1 applic 08/21/19 11:15 09/03/19 11:06 Nystop Powder - TP 1 applic BID [facility] Administration Phenobarbital 60 mg 08/10/19 22:00 09/03/19 11:05 Phenobarbital Liquid - NGT 60 mg BID [facility] Administration Potassium Chloride 40 meq 08/08/19 22:00 09/03/19 11:12 Potassium Chloride Oral Liquid GT 40 meq BID [facility] Administration Quetiapine Fumarate 25 mg 08/18/19 10:45 09/03/19 11:04 Seroquel - PO 25 mg DAILY [facility] Administration Topiramate 200 mg 08/08/19 22:00 09/03/19 15:50 Topamax - GT 200 mg TID [facility] Administration Zinc Sulfate 220 mg 08/08/19 22:00 09/03/19 11:07 Orazinc - GT 220 mg BID [facility] Administration Impression 1. hypokalemia 2. hypernatremia 3. resp failure 4. fungemia 5. covid 19 infection 6. ards 7. developemental delay 8. epilepsy 9. bactermia 10. resp acidosis with compensatory met alk Plan - cxr reviewed - lytes stable - cont vent support - would keep diuretics on hold - sodium stable - discussed with medical team - pulm follow up - trache care - volume status stable
[2019-09-04] MEDS: TOPIRAMATE 200 MG TABLET GT SCH ×3 (05:26→22:54)
--- NOTE | 2019-09-04 07:35 | PN ---
Progress Note, Physician History of Present Illness: PULMONARY ALERT,ON VENT SUPPORT CPAP WITH PS,TOLERATING WELL - Current Medication List Current Medications: Active Medications Acetaminophen (Tylenol -) 650 mg PO Q6H PRN PRN Reason: Fever Or Pain Last Admin: 09/03/19 17:21 Dose: 650 mg Documented by: Albuterol/Ipratropium (Duoneb -) 1 amp NEB Q6H PRN PRN Reason: SHORTNESS OF BREATH Last Admin: 08/27/19 04:30 Dose: 1 amp Documented by: Albuterol/Ipratropium (Duoneb -) 1 amp NEB Q6H PRN PRN Reason: SHORTNESS OF BREATH Amino Acids (Prosource No Carb Liquid Pkt) 30 ml GT BID@0800,1730 [facility] Last Admin: 09/03/19 17:21 Dose: 30 ml Documented by: Artificial Tears (Artificial Tears) 1 drop OU Q12H PRN PRN Reason: DRY EYES Last Admin: 08/10/19 10:43 Dose: 1 drop Documented by: Ascorbic Acid (Vitamin C Oral Solution -) 500 mg GT DAILY [facility] Last Admin: 09/03/19 11:07 Dose: 500 mg Documented by: Carvedilol (Coreg -) 6.25 mg PO BID [facility] Last Admin: 09/03/19 21:15 Dose: 6.25 mg Documented by: Cholecalciferol (Vitamin D3 -) 800 unit NR DAILY [facility] Last Admin: 09/03/19 11:07 Dose: 800 unit Documented by: Enoxaparin Sodium (Lovenox -) 40 mg SQ DAILY [facility] Last Admin: 09/03/19 11:04 Dose: 40 mg Documented by: Famotidine (Pepcid) 20 mg NGT BID [facility] Last Admin: 09/03/19 21:13 Dose: 20 mg Documented by: Lacosamide (Vimpat Liquid -) 200 mg PO BID [facility] Last Admin: 09/03/19 21:14 Dose: 200 mg Documented by: Levetiracetam (Keppra Oral Solution -) 1,000 mg NGT BID [facility] Last Admin: 09/03/19 21:15 Dose: 1,000 mg Documented by: Nystatin (Nystatin Oral Suspension -) 500,000 units PO Q6HPO PRN PRN Reason: ORAL PAIN/MOUTH SORES Nystatin (Nystop Powder -) 1 applic TP BID [facility] Last Admin: 09/03/19 21:15 Dose: 1 applic Documented by: Phenobarbital (Phenobarbital Liquid -) 60 mg NGT BID [facility] Last Admin: 09/03/19 21:14 Dose: 60 mg Documented by: Potassium Chloride (Potassium Chloride Oral Liquid) 40 meq GT BID [facility] Last Admin: 09/03/19 21:14 Dose: 40 meq Documented by: Quetiapine Fumarate (Seroquel -) 25 mg PO DAILY [facility] Last Admin: 09/03/19 11:04 Dose: 25 mg Documented by: Topiramate (Topamax -) 200 mg GT TID [facility] Last Admin: 09/04/19 05:26 Dose: 200 mg Documented by: Zinc Sulfate (Orazinc -) 220 mg GT BID [facility] Last Admin: 09/03/19 21:16 Dose: 220 mg Documented by: - Objective Vital Signs: Vital Signs Temperature 98.2 F 09/04/19 06:00 Pulse Rate 104 H 09/04/19 06:00 Respiratory Rate 22 H 09/04/19 06:00 Blood Pressure 131/81 09/04/19 06:00 O2 Sat by Pulse Oximetry (%) 100 09/04/19 04:20 Constitutional: Yes: Well Nourished, Calm Eyes: Yes: WNL, Other Neck: Yes: Supple (TRACH) Cardiovascular: Yes: Regular Rate and Rhythm, S1, S2 Respiratory: Yes: Mechanically Ventilated, Rhonchi (FEW RHONCHI) Gastrointestinal: Yes: Normal Bowel Sounds, Soft Extremities: Yes: WNL Edema: No Labs: INR, PTT - ....Imaging Chest X-ray: Image Reviewed Problem List - Problems (1) COVID-19 Code(s): U07.1 - COVID POSITIVE (2) COVID-19 Code(s): U07.1 - COVID POSITIVE (3) Acute respiratory failure with hypoxia Code(s): J96.01 - ACUTE RESPIRATORY FAILURE WITH HYPOXIA (4) Seizure disorder Code(s): G40.909 - EPILEPSY, UNSP, NOT INTRACTABLE, WITHOUT STATUS EPILEPTICUS (5) Status epilepticus Code(s): G40.901 - EPILEPSY, UNSP, NOT INTRACTABLE, WITH STATUS EPILEPTICUS Assessment/Plan ASSESSMENT AND PLAN: Acute Hypoxic and Hypercapneic Respiratory Failure improving COVID19 Pneumonia E Coli Pneumonia Fungenmia Bacteremia Septic Shock Seizure Disorder Mental Retardation ABNORMAL LFTS - Ativan PRN - antiepileptics - monitor urine output, creatinine - low tidal volume ventilation - titrate 02 - wean as tolerated - DVT/GI prophylaxis - inhaled bronchodilators - PMV as tolerated Dr MARTINEZ
[2019-09-04 07:55] LABS: BASO % 0.5 % (0-2.0); EOS % 4.2 % (0-4.5); HEMATOCRIT 30.6 % (35.4-49); HEMOGLOBIN 9.3 GM/dL (11.7-16.9); MCH 26.6 pg (25.7-33.7); MCHC 30.3 g/dl (32.0-35.9); MEAN CELL VOLUME 87.9 fl (80-96); MEAN PLT VOLUME 11.4 fl (7.5-11.1); NEUT % 71.3 % (42.8-82.8); PLATELET COUNT 238 K/MM3 (134-434); RBC 3.49 M/mm3 (4.00-5.60); RDW 16.7 % (11.9-15.9)
[2019-09-04 08:07] LABS: BLOOD UREA NITROGEN 14.9 mg/dL (7-18); CALCIUM 8.7 mg/dL (8.5-10.1); CREATININE 0.4 mg/dL (0.55-1.3); MAGNESIUM 2.1 mg/dL (1.8-2.4); PHOSPHOROUS 5.3 mg/dL (2.5-4.9); POTASSIUM 3.7 mmol/L (3.5-5.1)
[2019-09-04] MEDS: POTASSIUM CHLORIDE ORAL LIQUID 20 MEQ/15 ML GT SCH ×2 (10:22→22:33)
[2019-09-04] MEDS: AMINO ACIDS/PROTEIN HYDROLYS 30 ML LIQUID.PKT GT SCH ×2 (10:22→18:47)
[2019-09-04] MEDS: ENOXAPARIN NA (PORCINE) 40 MG/0.4 ML DISP.SYRIN SQ SCH (10:23)
[2019-09-04] MEDS: FAMOTIDINE 40 MG/5 ML ORAL SUSPENSION NGT SCH ×2 (10:23→22:30)
[2019-09-04] MEDS: ZINC SULFATE 220 MG CAPSULE (FP) GT SCH ×2 (10:24→22:34)
[2019-09-04] MEDS: Lacosamide 50 MG/5 ML ORAL SOLUTION UNIT CUPS PO SCH ×2 (10:24→22:32)
[2019-09-04] MEDS: levETIRAcetam 500 MG/5 ML ORAL SOLUTION (UNIT-DOSE CUPS) NGT SCH ×2 (10:24→22:32)
[2019-09-04] MEDS: PHENobarbital 20 MG/5 ML UNIT-DOSE CUP NGT SCH ×2 (10:24→22:31)
[2019-09-04] MEDS: NYSTATIN POWDER 100,000 UNITS/GM - 15 GM TOPICAL POWDER TP SCH ×2 (10:24→22:32)
[2019-09-04] MEDS: CARVEDILOL 6.25 MG TABLET (FP) PO SCH ×2 (10:25→22:31)
[2019-09-04] MEDS: QUEtiapine FUMARATE 25 MG TABLET PO SCH (10:25)
[2019-09-04] MEDS: ASCORBIC ACID 500 MG/5 ML UNIT DOSE CUP GT SCH (10:26)
[2019-09-04] MEDS: CHOLECALCIFEROL (VIT D3) 400 UNIT (10 MCG) TABLET NR SCH (10:27)
[2019-09-04] MEDS ORDERED: PT OWN MED DRAWER 7, Y5N ONE ×4 (12:58→23:17)
--- NOTE | 2019-09-04 13:07 | PN ---
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 Progress Note: Selected Entries 09/02/19 09/02/19 09/02/19 02:00 06:00 10:00 Supper Temperature 97.3 F L 98.3 F 99 F Pulse Rate 104 H 106 H 109 H Blood Pressure 09/02/19 09/02/19 09/02/19 14:00 18:00 22:00 Supper Temperature 100.2 F H 98.2 F 99.2 F Pulse Rate 103 H 106 H 120 H Blood Pressure 09/02/19 09/03/19 09/03/19 23:22 01:48 05:00 Supper Temperature 101.2 F H Pulse Rate 122 H 110 H Blood Pressure 121/76 143/94 09/03/19 09/03/19 09/03/19 09:30 14:00 18:00 Supper NPO Temperature Pulse Rate 90 109 H 104 H Blood Pressure 114/78 110/72 126/80 09/03/19 09/03/19 09/04/19 20:15 20:27 00:06 Supper Temperature Pulse Rate 92 H 93 H 88 Blood Pressure 123/83 09/04/19 09/04/19 09/04/19 02:00 04:20 06:00 Supper Temperature Pulse Rate 99 H 95 H 104 H Blood Pressure 107/71 131/81 09/04/19 09/04/19 10:00 12:25 Supper Temperature Pulse Rate 107 H 114 H Blood Pressure 131/87 Laboratory Tests 09/02/19 09/03/19 09/04/19 08:15 06:50 07:08 WBC 16.7 H 15.1 H 13.0 H Reviewed with medical team Strict NPO due to silent aspiration on MBS PMV as tolerated, increasing time. Remove while sleeping Wash PMV with soap/water, air dry each evening Repeat MBS next week
--- NOTE | 2019-09-04 14:21 | PN ---
Progress Note (short form) - Note Progress Note: Gastroenertology: Vital Signs Period Temp Pulse Resp BP Sys/Ortiz Pulse Ox Last 24 Hr 97.7 F-100.2 F 88-114 22-38 107-131/71-87 100-100 GEN: trach in place on vent ABD: soft, non-distended. GT in place. CBC, BMP 09/04/19 07:08 09/04/19 07:08 Laboratory Tests 09/03/19 06:50 Total Bilirubin 0.3 AST 47 H ALT 131 H Alkaline Phosphatase 140 H US- fatty liver, no evidence of stone disease <Jyoti Casillas - Last Filed: 09/04/19 14:33> - Note Progress Note: AGREE WITH ASSESSMENT AND PLAN OUTLINED ABOVE <Becky Kulkarni - Last Filed: 09/04/19 17:08> Problem List - Problems (1) Abnormal liver function tests Assessment/Plan: Pt with Mental Retardation/Seizure disorder. History of covid(june) and now with sustained rise of LFTs since admission. Pt without focal findings on abdominal exam. Spoke with the medical team regarding recommendations to obtain CT scan of the abd/pelvis with and without IV contrast. At this time, his medication list was reviewed and all potential medications which may be hepatotoxic and can be removed safely were eliminated. Hepatitis serology was negative Continue tube feeds as tolerated D/w Dr. Kulkarni Problems reviewed: Yes Code(s): R94.5 - ABNORMAL RESULTS OF LIVER FUNCTION STUDIES <Jyoti Casillas - Last Filed: 09/04/19 14:33> - Problems (1) Dysphagia Code(s): R13.10 - DYSPHAGIA, UNSPECIFIED (2) Acute respiratory failure with hypoxia Code(s): J96.01 - ACUTE RESPIRATORY FAILURE WITH HYPOXIA (3) COVID-19 Code(s): U07.1 - COVID POSITIVE <Becky Kulkarni - Last Filed: 09/04/19 17:08>
--- NOTE | 2019-09-04 15:17 | PN ---
Physical Exam: SUBJECTIVE: Patient seen and examined OBJECTIVE: Vital Signs Temperature 99.1 F 09/04/19 19:00 Pulse Rate 113 H 09/04/19 18:00 Respiratory Rate 30 H 09/04/19 20:59 Blood Pressure 126/79 09/04/19 18:00 O2 Sat by Pulse Oximetry (%) 100 09/04/19 20:59 GENERAL: The patient is awake, alert, nonverbal, follows commands EYES: PERRLA, EOMI EENT:moist mucous membranes. NECK: Trach in place LUNGS: Breath sounds equal, clear to auscultation bilaterally HEART: tachycardic, regular, S1, S2 ABDOMEN: Soft, nontender, nondistended, Percutaneous G tube in place, clean dry and intact EXTREMITIES: 2+ pulses, warm, well-perfused, no edema. Laboratory Results - last 24 hr 09/04/19 09/04/19 07:08 07:08 WBC 13.0 H RBC 3.49 L Hgb 9.3 L Hct 30.6 L MCV 87.9 MCH 26.6 MCHC 30.3 L RDW 16.7 H Plt Count 238 MPV 11.4 H Absolute Neuts (auto) 9.3 H Neutrophils % 71.3 Lymphocytes % 18.0 Monocytes % 6.0 Eosinophils % 4.2 Basophils % 0.5 Nucleated RBC % 0 Sodium 141 Potassium 3.7 Chloride 110 H Carbon Dioxide 24 Anion Gap 6 L BUN 14.9 Creatinine 0.4 L Est GFR (CKD-EPI)AfAm 174.63 Est GFR (CKD-EPI)NonAf 150.67 Random Glucose 120 H Calcium 8.7 Phosphorus 5.3 H Magnesium 2.1 Active Medications Generic Name Dose Route Start Last Admin Trade Name Freq PRN Reason Stop Dose Admin Albuterol/Ipratropium 1 amp 09/03/19 10:54 Duoneb - NEB Q6H PRN SHORTNESS OF BREATH Amino Acids 30 ml 08/09/19 08:00 09/04/19 10:22 Prosource No Carb Liquid Pkt GT 30 ml BID@0800,1730 [facility] Administration Artificial Tears 1 drop 08/08/19 18:05 08/10/19 10:43 Artificial Tears OU 1 drop Q12H PRN Administration DRY EYES Ascorbic Acid 500 mg 08/09/19 10:00 09/04/19 10:26 Vitamin C Oral Solution - GT 500 mg DAILY [facility] Administration Carvedilol 6.25 mg 08/20/19 09:33 09/04/19 10:25 Coreg - PO 6.25 mg BID [facility] Administration Cholecalciferol 800 unit 08/09/19 10:00 09/04/19 10:27 Vitamin D3 - NR 800 unit DAILY [facility] Administration Enoxaparin Sodium 40 mg 08/15/19 10:00 09/04/19 10:23 Lovenox - SQ 40 mg DAILY [facility] Administration Famotidine 20 mg 08/28/19 22:00 09/04/19 10:23 Pepcid NGT 20 mg BID [facility] Administration Lacosamide 200 mg 08/10/19 22:00 09/04/19 10:24 Vimpat Liquid - PO 200 mg BID [facility] Administration Levetiracetam 1,000 mg 08/10/19 22:00 09/04/19 10:24 Keppra Oral Solution - NGT 1,000 mg BID [facility] Administration Nystatin 1 applic 08/21/19 11:15 09/04/19 10:24 Nystop Powder - TP 1 applic BID [facility] Administration Phenobarbital 60 mg 08/10/19 22:00 09/04/19 10:24 Phenobarbital Liquid - NGT 60 mg BID [facility] Administration Potassium Chloride 40 meq 08/08/19 22:00 09/04/19 10:22 Potassium Chloride Oral Liquid GT 40 meq BID [facility] Administration Quetiapine Fumarate 25 mg 08/18/19 10:45 09/04/19 10:25 Seroquel - PO 25 mg DAILY [facility] Administration Topiramate 200 mg 08/08/19 22:00 09/04/19 14:35 Topamax - GT 200 mg TID [facility] Administration Zinc Sulfate 220 mg 08/08/19 22:00 09/04/19 10:24 Orazinc - GT 220 mg BID [facility] Administration ASSESSMENT/PLAN: Patient is a 39 y/o M with PMH Mental Retardation and epilepsy who presented to ED initially with SOB and hypoxia requiring intubation, admitted to hospital for hypoxic respiratory failure 2/2 to covid-19. Hospital course complicated by bacteremia, fungemia, MRSA PNA, now with recurrent fever. #Acute Resp Failure 2/2 COVID-19 -s/p trach, convalescent plasma, tocilizumab -on CPAP vent settings. Weaning as tolerated -Pulm on board #Fever -persistent leukocytosis -Sputum Cx (08/21/2019) pos for MRSA, Dapto sensitive and E. coli, carbapenem sensitive -Blood cultures, urine cultures, cxr pending -ID on board. F/u Recs. Presently observing off Abx -Nephro on board #Transaminitis -persistent since admission -as of yet, no clear source identified -per GI, pt will potentially require a biopsy #Tachycardia -c/w Coreg -c/w low-dose seroquel to treat potential contribution of anxiety #Epilepsy -c/w lorazepam prn, levetiracitam, phenobarbitol, lacosamide, topiramate #FEN -not on any standing fluids -electrolytes wnl, routine bmp monitoring -NPO #Prophylaxis -Lovenox 40mg sq daily #Disposition -full code - pending SNF placement Visit type - Emergency Visit Emergency Visit: Yes ED Registration Date: 06/22/19 Care time: The patient presented to the Emergency Department on the above date and was hospitalized for further evaluation of their emergent condition. - New Patient This patient is new to me today: No - Critical Care Critical Care patient: No ATTENDING PHYSICIAN STATEMENT I saw and evaluated the patient. I reviewed the resident's note and discussed the case with the resident. I agree with the resident's findings and plan as documented. SUBJECTIVE: OBJECTIVE: ASSESSMENT AND PLAN:
--- NOTE | 2019-09-04 15:24 | PN ---
Progress Note, Physician History of Present Illness: Pt seen and examined. He appears comfortable. He is tolerating feeds. - Current Medication List Current Medications: Active Medications Albuterol/Ipratropium (Duoneb -) 1 amp NEB Q6H PRN PRN Reason: SHORTNESS OF BREATH Amino Acids (Prosource No Carb Liquid Pkt) 30 ml GT BID@0800,1730 [facility] Last Admin: 09/04/19 10:22 Dose: 30 ml Documented by: Artificial Tears (Artificial Tears) 1 drop OU Q12H PRN PRN Reason: DRY EYES Last Admin: 08/10/19 10:43 Dose: 1 drop Documented by: Ascorbic Acid (Vitamin C Oral Solution -) 500 mg GT DAILY [facility] Last Admin: 09/04/19 10:26 Dose: 500 mg Documented by: Carvedilol (Coreg -) 6.25 mg PO BID [facility] Last Admin: 09/04/19 10:25 Dose: 6.25 mg Documented by: Cholecalciferol (Vitamin D3 -) 800 unit NR DAILY [facility] Last Admin: 09/04/19 10:27 Dose: 800 unit Documented by: Enoxaparin Sodium (Lovenox -) 40 mg SQ DAILY [facility] Last Admin: 09/04/19 10:23 Dose: 40 mg Documented by: Famotidine (Pepcid) 20 mg NGT BID [facility] Last Admin: 09/04/19 10:23 Dose: 20 mg Documented by: Lacosamide (Vimpat Liquid -) 200 mg PO BID [facility] Last Admin: 09/04/19 10:24 Dose: 200 mg Documented by: Levetiracetam (Keppra Oral Solution -) 1,000 mg NGT BID [facility] Last Admin: 09/04/19 10:24 Dose: 1,000 mg Documented by: Nystatin (Nystop Powder -) 1 applic TP BID [facility] Last Admin: 09/04/19 10:24 Dose: 1 applic Documented by: Phenobarbital (Phenobarbital Liquid -) 60 mg NGT BID [facility] Last Admin: 09/04/19 10:24 Dose: 60 mg Documented by: Potassium Chloride (Potassium Chloride Oral Liquid) 40 meq GT BID [facility] Last Admin: 09/04/19 10:22 Dose: 40 meq Documented by: Quetiapine Fumarate (Seroquel -) 25 mg PO DAILY [facility] Last Admin: 07/03/20 10:25 Dose: 25 mg Documented by: Topiramate (Topamax -) 200 mg GT TID [facility] Last Admin: 09/04/19 14:35 Dose: 200 mg Documented by: Zinc Sulfate (Orazinc -) 220 mg GT BID [facility] Last Admin: 09/04/19 10:24 Dose: 220 mg Documented by: - Objective Vital Signs: Vital Signs Temperature 100.3 F H 09/04/19 14:55 Pulse Rate 96 H 09/04/19 14:00 Respiratory Rate 23 H 09/04/19 14:00 Blood Pressure 118/69 09/04/19 14:00 O2 Sat by Pulse Oximetry (%) 100 09/04/19 12:49 Constitutional: Yes: Calm Eyes: Yes: Conjunctiva Clear HENT: Yes: Atraumatic Cardiovascular: Yes: S1, S2 Respiratory: Yes: Mechanically Ventilated Gastrointestinal: Yes: Soft Genitourinary: Yes: Caceres Present Musculoskeletal: Yes: Muscle Weakness Edema: No Neurological: Yes: Pre-Existing Deficit Labs: CBC, BMP 09/04/19 07:08 09/04/19 07:08 INR, PTT INR 1.20 (0.83-1.09) H 08/21/19 11:30 Problem List - Problems (1) Hypernatremia Code(s): E87.0 - HYPEROSMOLALITY AND HYPERNATREMIA (2) Hypokalemia Code(s): E87.6 - HYPOKALEMIA (3) Acute respiratory failure with hypoxia Code(s): J96.01 - ACUTE RESPIRATORY FAILURE WITH HYPOXIA (4) Bacteremia Code(s): R78.81 - BACTEREMIA Assessment/Plan Current Medications Generic Name Dose Route Start Last Admin Trade Name Freq PRN Reason Stop Dose Admin Albuterol/Ipratropium 1 amp 09/03/19 10:54 Duoneb - NEB Q6H PRN SHORTNESS OF BREATH Amino Acids 30 ml 08/09/19 08:00 09/04/19 10:22 Prosource No Carb Liquid Pkt GT 30 ml BID@0800,1730 [facility] Administration Artificial Tears 1 drop 08/08/19 18:05 08/10/19 10:43 Artificial Tears OU 1 drop Q12H PRN Administration DRY EYES Ascorbic Acid 500 mg 08/09/19 10:00 09/04/19 10:26 Vitamin C Oral Solution - GT 500 mg DAILY [facility] Administration Carvedilol 6.25 mg 08/20/19 09:33 09/04/19 10:25 Coreg - PO 6.25 mg BID [facility] Administration Cholecalciferol 800 unit 08/09/19 10:00 09/04/19 10:27 Vitamin D3 - NR 800 unit DAILY [facility] Administration Enoxaparin Sodium 40 mg 08/15/19 10:00 09/04/19 10:23 Lovenox - SQ 40 mg DAILY [facility] Administration Famotidine 20 mg 08/28/19 22:00 09/04/19 10:23 Pepcid NGT 20 mg BID [facility] Administration Lacosamide 200 mg 08/10/19 22:00 09/04/19 10:24 Vimpat Liquid - PO 200 mg BID [facility] Administration Levetiracetam 1,000 mg 08/10/19 22:00 09/04/19 10:24 Keppra Oral Solution - NGT 1,000 mg BID [facility] Administration Nystatin 1 applic 08/21/19 11:15 09/04/19 10:24 Nystop Powder - TP 1 applic BID [facility] Administration Phenobarbital 60 mg 08/10/19 22:00 09/04/19 10:24 Phenobarbital Liquid - NGT 60 mg BID [facility] Administration Potassium Chloride 40 meq 08/08/19 22:00 09/04/19 10:22 Potassium Chloride Oral Liquid GT 40 meq BID [facility] Administration Quetiapine Fumarate 25 mg 08/18/19 10:45 09/04/19 10:25 Seroquel - PO 25 mg DAILY [facility] Administration Topiramate 200 mg 08/08/19 22:00 09/04/19 14:35 Topamax - GT 200 mg TID [facility] Administration Zinc Sulfate 220 mg 08/08/19 22:00 09/04/19 10:24 Orazinc - GT 220 mg BID [facility] Administration Impression 1. hypokalemia 2. hypernatremia 3. resp failure 4. fungemia 5. covid 19 infection 6. ards 7. developemental delay 8. epilepsy 9. bactermia 10. resp acidosis with compensatory met alk Plan - cont tube feeds - cont free water - chloride improving - potassium stable - would keep diuretics on hold - sodium stable - trache care - volume status stable
[2019-09-05] MEDS: TOPIRAMATE 200 MG TABLET GT SCH ×3 (05:18→23:07)
--- NOTE | 2019-09-05 09:11 | PN.GI ---
GI Progress Note Subjective: NO NEW EVENTS - Objective Vital Signs: Vital Signs Temperature 99.2 F 09/05/19 06:00 Pulse Rate 100 H 09/05/19 06:00 Respiratory Rate 25 H 09/05/19 06:00 Blood Pressure 129/92 09/05/19 06:00 O2 Sat by Pulse Oximetry (%) 100 09/05/19 04:57 Constitutional: No Distress Gastrointestinal Inspection: Yes: WNL ...Percussion: Yes: Other (PEG TUBE) Labs: CBC, BMP 09/04/19 07:08 09/04/19 07:08 INR, PTT INR 1.20 (0.83-1.09) H 08/21/19 11:30 Problem List - Problems (1) Dysphagia Assessment/Plan: Transaminitis multifactorial in origin with medication induced VS underlying infectious process as contributing etiologies. -- hepatitis serology negative for chronic disease -- trend lft daily -- avoid hepatotoxic medications Code(s): R13.10 - DYSPHAGIA, UNSPECIFIED (2) Acute respiratory failure with hypoxia Code(s): J96.01 - ACUTE RESPIRATORY FAILURE WITH HYPOXIA (3) COVID-19 Code(s): U07.1 - COVID POSITIVE
[2019-09-05] MEDS: CARVEDILOL 6.25 MG TABLET (FP) PO SCH ×2 (09:14→23:07)
[2019-09-05] MEDS: AMINO ACIDS/PROTEIN HYDROLYS 30 ML LIQUID.PKT GT SCH ×2 (09:14→17:06)
[2019-09-05] MEDS: FAMOTIDINE 40 MG/5 ML ORAL SUSPENSION NGT SCH ×2 (09:15→23:06)
[2019-09-05] MEDS: NYSTATIN POWDER 100,000 UNITS/GM - 15 GM TOPICAL POWDER TP SCH ×2 (09:15→23:09)
[2019-09-05] MEDS: ENOXAPARIN NA (PORCINE) 40 MG/0.4 ML DISP.SYRIN SQ SCH (09:15)
[2019-09-05] MEDS: levETIRAcetam 500 MG/5 ML ORAL SOLUTION (UNIT-DOSE CUPS) NGT SCH ×2 (09:15→23:08)
[2019-09-05] MEDS: PHENobarbital 20 MG/5 ML UNIT-DOSE CUP NGT SCH ×2 (09:16→23:07)
[2019-09-05] MEDS: POTASSIUM CHLORIDE ORAL LIQUID 20 MEQ/15 ML GT SCH ×2 (09:16→23:07)
[2019-09-05] MEDS: QUEtiapine FUMARATE 25 MG TABLET PO SCH (09:16)
[2019-09-05] MEDS: Lacosamide 50 MG/5 ML ORAL SOLUTION UNIT CUPS PO SCH ×2 (09:17→23:07)
[2019-09-05] MEDS: ASCORBIC ACID 500 MG/5 ML UNIT DOSE CUP GT SCH (09:17)
[2019-09-05] MEDS: ZINC SULFATE 220 MG CAPSULE (FP) GT SCH ×2 (09:18→23:08)
[2019-09-05] MEDS: CHOLECALCIFEROL (VIT D3) 400 UNIT (10 MCG) TABLET NR SCH (09:18)
[2019-09-05] MEDS: ARTIFICIAL TEARS (POLYVINYL ALCOHOL) OPTH DROPS OU PRN (09:19)
[2019-09-05 09:52] LABS: BASO % 0.4 % (0-2.0); EOS % 3.7 % (0-4.5); HEMOGLOBIN 9.7 GM/dL (11.7-16.9); MCH 26.9 pg (25.7-33.7); MCHC 31.1 g/dl (32.0-35.9); MEAN CELL VOLUME 86.6 fl (80-96); MEAN PLT VOLUME 10.8 fl (7.5-11.1); MONO % 6.1 % (3.8-10.2); NEUT % 67.8 % (42.8-82.8); PLATELET COUNT 293 K/MM3 (134-434); RBC 3.59 M/mm3 (4.00-5.60); RDW 16.9 % (11.9-15.9); WHITE BLOOD COUNT 12.6 K/mm3 (4.0-10.0)
[2019-09-05 10:21] LABS: ALBUMIN 2.5 g/dl (3.4-5.0); BLOOD UREA NITROGEN 13.5 mg/dL (7-18); CALCIUM 9.6 mg/dL (8.5-10.1); POTASSIUM 3.6 mmol/L (3.5-5.1)
[2019-09-05 10:25] LABS: BILIRUBIN,TOTAL 0.3 mg/dL (0.2-1); CREATININE 0.4 mg/dL (0.55-1.3); TOT PROT 6.3 g/dl (6.4-8.2)
[2019-09-05 13:07] VITALS: BMI 31.0
[2019-09-05] MEDS ORDERED: PT OWN MED DRAWER 7, Y5N ONE ×2 (13:46→23:00)
--- NOTE | 2019-09-05 14:33 | PN ---
Progress Note (short form) - Note Progress Note: PULMONARY Vented, awake. No fevers recorded. Tolerating CPAP/PS. Vital Signs Period Temp Pulse Resp BP Sys/Ortiz Pulse Ox Last 24 Hr 98.3 F-100.3 F 99-114 24-32 126-140/76-97 100-100 Gen: vented, awake Heart: tachycardic, regular Lung: decreased breath sounds at the bases Abd: soft, nontender Ext: no edema CBC, BMP 09/05/19 09:20 09/05/19 09:20 Active Medications Albuterol/Ipratropium (Duoneb -) 1 amp NEB Q6H PRN PRN Reason: SHORTNESS OF BREATH Amino Acids (Prosource No Carb Liquid Pkt) 30 ml GT BID@0800,1730 [facility] Last Admin: 09/05/19 09:14 Dose: 30 ml Documented by: Artificial Tears (Artificial Tears) 1 drop OU Q12H PRN PRN Reason: DRY EYES Last Admin: 09/05/19 09:19 Dose: 1 drop Documented by: Ascorbic Acid (Vitamin C Oral Solution -) 500 mg GT DAILY [facility] Last Admin: 09/05/19 09:17 Dose: 500 mg Documented by: Carvedilol (Coreg -) 6.25 mg PO BID [facility] Last Admin: 09/05/19 09:14 Dose: 6.25 mg Documented by: Cholecalciferol (Vitamin D3 -) 800 unit NR DAILY [facility] Last Admin: 09/05/19 09:18 Dose: 800 unit Documented by: Enoxaparin Sodium (Lovenox -) 40 mg SQ DAILY [facility] Last Admin: 09/05/19 09:15 Dose: 40 mg Documented by: Famotidine (Pepcid) 20 mg NGT BID [facility] Last Admin: 09/05/19 09:15 Dose: 20 mg Documented by: Lacosamide (Vimpat Liquid -) 200 mg PO BID [facility] Last Admin: 09/05/19 09:17 Dose: 200 mg Documented by: Levetiracetam (Keppra Oral Solution -) 1,000 mg NGT BID [facility] Last Admin: 09/05/19 09:15 Dose: 1,000 mg Documented by: Nystatin (Nystop Powder -) 1 applic TP BID [facility] Last Admin: 09/05/19 09:15 Dose: 1 applic Documented by: Phenobarbital (Phenobarbital Liquid -) 60 mg NGT BID [facility] Last Admin: 09/05/19 09:16 Dose: 60 mg Documented by: Potassium Chloride (Potassium Chloride Oral Liquid) 40 meq GT BID [facility] Last Admin: 09/05/19 09:16 Dose: 40 meq Documented by: Quetiapine Fumarate (Seroquel -) 25 mg PO DAILY [facility] Last Admin: 09/05/19 09:16 Dose: 25 mg Documented by: Topiramate (Topamax -) 200 mg GT TID [facility] Last Admin: 09/05/19 13:57 Dose: 200 mg Documented by: Zinc Sulfate (Orazinc -) 220 mg GT BID [facility] Last Admin: 09/05/19 09:18 Dose: 220 mg Documented by: A/P Acute Hypoxic and Hypercapneic Respiratory Failure COVID19 Pneumonia E Coli Pneumonia Fungenmia Bacteremia Septic Shock Seizure Disorder Mental Retardation - completed antibiotics - continue antiepileptics - monitor urine output, creatinine - spontaeneous breathing trials as tolerated - PO as tolerated - DVT/GI prophylaxis
--- NOTE | 2019-09-05 18:31 | PN ---
Teaching Attending Note Name of Resident: Kae Pack ATTENDING PHYSICIAN STATEMENT I saw and evaluated the patient. I reviewed the resident's note and discussed the case with the resident. I agree with the resident's findings and plan as documented. SUBJECTIVE: Patient seen and examined bedside, afebrile, VSS. 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 Vital Signs - 24 hr 09/04/19 09/04/19 09/04/19 19:00 20:33 20:59 Temperature 99.1 F Pulse Rate Respiratory 32 H 30 H Rate Blood Pressure O2 Sat by Pulse 100 100 Oximetry (%) 09/04/19 09/05/19 09/05/19 22:00 00:50 02:00 Temperature 99.8 F H 99.6 F Pulse Rate 112 H 114 H Respiratory 30 H 30 H 26 H Rate Blood Pressure 129/76 126/84 O2 Sat by Pulse 100 Oximetry (%) 09/05/19 09/05/19 09/05/19 04:57 06:00 09:00 Temperature 99.2 F Pulse Rate 100 H Respiratory 32 H 25 H 24 H Rate Blood Pressure 129/92 O2 Sat by Pulse 100 100 Oximetry (%) 09/05/19 09/05/19 09/05/19 09:55 10:00 10:08 Temperature 98.3 F Pulse Rate 99 H 104 H Respiratory 29 H 24 H Rate Blood Pressure 140/97 O2 Sat by Pulse 100 100 Oximetry (%) 09/05/19 09/05/19 09/05/19 12:50 14:00 15:05 Temperature 99.8 F H Pulse Rate 107 H Respiratory 26 H 26 H 30 H Rate Blood Pressure 116/80 O2 Sat by Pulse 100 100 Oximetry (%) 09/05/19 16:06 Temperature Pulse Rate Respiratory Rate Blood Pressure O2 Sat by Pulse 100 Oximetry (%) Microbiology 09/03/19 09:30 Urine - Urine Caceres Urine Culture - Final Escherichia Coli Esbl Administrative Support Assistant 09/03/19 08:04 Blood - Peripheral Venous Blood Culture - Preliminary NO GROWTH OBTAINED AFTER 48 HOURS, INCUBATION TO CONTINUE FOR 3 DAYS. 09/03/19 08:35 Blood - Peripheral Venous Blood Culture - Preliminary NO GROWTH OBTAINED AFTER 48 HOURS, INCUBATION TO CONTINUE FOR 3 DAYS. 08/26/19 11:05 Blood - Peripheral Venous Blood Culture - Final NO GROWTH AFTER 5 DAYS INCUBATION 08/26/19 11:05 Blood - Peripheral Venous Blood Culture - Final NO GROWTH AFTER 5 DAYS INCUBATION 08/26/19 20:40 Sputum - Endotrachea Suction/Ventilator Gram Stain - Final 08/26/19 20:40 Sputum - Endotrachea Suction/Ventilator Sputum Culture - Final Mr S Aureus Escherichia Coli 08/26/19 19:15 Urine - Urine Caceres Urine Culture - Final NO GROWTH OBTAINED 08/26/19 22:15 Stool Cryptosporidium Antigen - Final 08/26/19 22:15 Stool Giardia Antigen (JASSON) - Final 08/26/19 12:10 Urine - Urine Caceres Legionella Antigen - Final 08/26/19 12:10 Urine - Urine Caceres Streptococcus pneumoniae Antigen (M - Final 08/20/19 20:20 Blood - Peripheral Venous Blood Culture - Final NO GROWTH AFTER 5 DAYS INCUBATION 08/20/19 20:20 Blood - Peripheral Venous Blood Culture - Final NO GROWTH AFTER 5 DAYS INCUBATION 08/21/19 03:17 Sputum - Endotrachea Suction/Ventilator AFB Smear Concentration - Final 08/21/19 03:17 Sputum - Endotrachea Suction/Ventilator Mycobacterial Culture - Preliminary 08/20/19 05:00 Sputum - Endotrachea Suction/Ventilator AFB Smear Concentration - Final 08/20/19 05:00 Sputum - Endotrachea Suction/Ventilator Mycobacterial Culture - Preliminary 08/21/19 03:17 Sputum - Endotrachea Suction/Ventilator Gram Stain - Final 08/21/19 03:17 Sputum - Endotrachea Suction/Ventilator Sputum Culture - Final S Aureus 08/17/19 02:00 Blood - Peripheral Venous Blood Culture - Final NO GROWTH AFTER 5 DAYS INCUBATION 08/17/19 02:00 Blood - Peripheral Venous Blood Culture - Final NO GROWTH AFTER 5 DAYS INCUBATION 08/20/19 19:30 Stool Clostridioides difficile Antigen - Final 08/20/19 19:30 Stool Clostridioides difficile Toxin Assay - Final 08/20/19 19:30 Urine For Antigen Detection Legionella Antigen - Final 08/20/19 19:30 Urine For Antigen Detection Streptococcus pneumoniae Antigen (M - Final 08/18/19 12:00 Sputum - Endotrachea Suction/Ventilator AFB Smear Concentration - Final 08/18/19 12:00 Sputum - Endotrachea Suction/Ventilator Mycobacterial Culture - Preliminary 08/17/19 11:35 Urine - Urine Caceres Urine Culture - Final NO GROWTH OBTAINED 08/12/19 13:10 Blood - Peripheral Venous Blood Culture - Final NO GROWTH AFTER 5 DAYS INCUBATION 08/12/19 13:00 Blood - Peripheral Venous Blood Culture - Final NO GROWTH AFTER 5 DAYS INCUBATION 08/14/19 14:50 Sputum - Endotrachea Suction/Ventilator Gram Stain - Final 08/14/19 14:50 Sputum - Endotrachea Suction/Ventilator Sputum Culture - Final NORMAL RESPIRATORY RICKY 08/14/19 14:49 Stool Clostridioides difficile Antigen - Final 08/14/19 14:49 Stool Clostridioides difficile Toxin Assay - Final 08/09/19 11:45 Blood - Peripheral Venous Blood Culture - Final NO GROWTH AFTER 5 DAYS INCUBATION 08/09/19 11:52 Blood - Peripheral Venous Blood Culture - Final NO GROWTH AFTER 5 DAYS INCUBATION 08/12/19 14:45 Stool Clostridioides difficile Antigen - Final 08/12/19 14:45 Stool Clostridioides difficile Toxin Assay - Final 08/09/19 16:30 Urine - Urine Caceres Urine Culture - Final NO GROWTH OBTAINED 08/04/19 19:40 Blood - Peripheral Venous Blood Culture - Final Staphylococcus Capitis 08/04/19 19:50 Blood - Peripheral Venous Blood Culture - Final NO GROWTH AFTER 5 DAYS INCUBATION 08/05/19 13:45 Urine - Urine Caceres Urine Culture - Final NO GROWTH OBTAINED 07/31/19 16:30 Blood - Peripheral Venous Blood Culture - Final NO GROWTH AFTER 5 DAYS INCUBATION 07/31/19 17:25 Blood - Peripheral Venous Blood Culture - Final Staphylococcus Capitis 08/01/19 11:55 Sputum - Endotrachea Suction/Ventilator Gram Stain - Final 08/01/19 11:55 Sputum - Endotrachea Suction/Ventilator Sputum Culture - Final Mr S Aureus 07/29/19 11:46 Blood - Peripheral Venous Blood Culture - Final NO GROWTH AFTER 5 DAYS INCUBATION 07/29/19 11:18 Blood - Central Line Blood Culture - Final NO GROWTH AFTER 5 DAYS INCUBATION 07/29/19 11:18 Urine - Urine Caceres Urine Culture - Final NO GROWTH OBTAINED 07/12/19 11:04 Blood - Peripheral Venous Yeast/Fungus Identification - Final Janis Lusitaniae 07/18/19 21:10 Blood - Peripheral Venous Blood Culture - Final NO GROWTH AFTER 5 DAYS INCUBATION 07/18/19 18:30 Blood - Peripheral Venous Blood Culture - Final NO GROWTH AFTER 5 DAYS INCUBATION 07/15/19 12:25 Blood - Peripheral Venous Blood Culture - Final NO GROWTH AFTER 5 DAYS INCUBATION 07/16/19 15:15 Blood - Peripheral Venous Blood Culture - Final Staphylococcus Epidermidis 07/14/19 11:30 Blood - Peripheral Venous Blood Culture - Final NO GROWTH AFTER 5 DAYS INCUBATION 07/16/19 15:05 Blood - Peripheral Venous Blood Culture - Final Staphylococcus Epidermidis 07/16/19 12:30 Sputum - Endotrachea Suction/Ventilator Gram Stain - Final 07/16/19 12:30 Sputum - Endotrachea Suction/Ventilator Sputum Culture - F inal Mr S Aureus Escherichia Coli 07/12/19 10:55 Blood - Peripheral Venous Blood Culture - Final NO GROWTH AFTER 5 DAYS INCUBATION 07/16/19 12:30 Urine - Urine - Catheterized Urine Culture - Final NO GROWTH OBTAINED 07/12/19 06:00 Sputum - Endotrachea Suction/Ventilator Gram Stain - Final 07/12/19 06:00 Sputum - Endotrachea Suction/Ventilator Sputum Culture - Final 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 Mr S Aureus 07/12/19 11:04 Blood - Peripheral Venous Blood Culture - Final 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 07/01/19 18:15 Blood - Peripheral Venous Blood Culture - Final NO GROWTH AFTER 5 DAYS INCUBATION 06/29/19 12:30 Blood - Peripheral Venous Blood Culture - Final Staphylococcus Epidermidis 06/30/19 17:15 Sputum - Endotrachea Suction/Ventilator Gram Stain - Final 06/30/19 17:15 Sputum - Endotrachea Suction/Ventilator Sputum Culture - Final Escherichia Coli Esbl Administrative Support Assistant 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 06/28/19 09:00 Blood - Peripheral Venous Blood Culture - Final Staphylococcus Epidermidis 06/28/19 12:50 Sputum - Endotrachea Suction/Ventilator Gram Stain - Final 06/28/19 12:50 Sputum - Endotrachea Suction/Ventilator Sputum Culture - Final 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 Staphylococcus Aureus 06/25/19 13:40 Blood - Peripheral Venous Blood Culture - Final NO GROWTH AFTER 5 DAYS INCUBATION 06/25/19 13:20 Blood - Peripheral Venous Blood Culture - Final NO GROWTH AFTER 5 DAYS INCUBATION 06/28/19 12:51 Urine - Urine Caceres Urine Culture - Final NO GROWTH OBTAINED 06/22/19 13:00 Blood - Peripheral Venous Blood Culture - Final Staphylococcus Warneri 06/22/19 13:00 Blood - Peripheral Venous Blood Culture - Final Staphylococcus Epidermidis 06/24/19 00:01 Urine - Urine Caceres Urine Culture - Final NO GROWTH OBTAINED 06/24/19 00:01 Urine For Antigen Detection Legionella Antigen - Final 06/24/19 00:01 Urine For Antigen Detection Streptococcus pneumoniae Antigen (M - Final Laboratory Results - last 24 hr 09/03/19 09/05/19 09/05/19 09:30 09:20 09:20 WBC 12.6 H RBC 3.59 L Hgb 9.7 L Hct 31.0 L MCV 86.6 MCH 26.9 MCHC 31.1 L RDW 16.9 H Plt Count 293 D MPV 10.8 Absolute Neuts (auto) 8.6 H Neutrophils % 67.8 Lymphocytes % 22.0 D Monocytes % 6.1 Eosinophils % 3.7 Basophils % 0.4 Nucleated RBC % 0 Sodium 143 Potassium 3.6 Chloride 113 H Carbon Dioxide 26 Anion Gap 5 L BUN 13.5 Creatinine 0.4 L Est GFR (CKD-EPI)AfAm 174.63 Est GFR (CKD-EPI)NonAf 150.67 Random Glucose 98 Calcium 9.6 Total Bilirubin 0.3 AST 49 H ALT 140 H Alkaline Phosphatase 131 H Total Protein 6.3 L Albumin 2.5 L COVID-19 (LEROY) Not detected Home Medications Medication Instructions Recorded Topiramate [Topamax -] 200 mg PO TID #90 tablet 06/10/18 Lacosamide [Vimpat] 200 mg PO BID #60 tablet MDD 2 06/11/18 Phenobarbital - 60 mg PO BID #120 tablet MDD 4 06/11/18 levETIRAcetam [Keppra -] 1,000 mg PO BID 06/22/19 Current Medications Generic Name Dose Route Start Last Admin Trade Name Freq PRN Reason Stop Dose Admin Albuterol/Ipratropium 1 amp 09/03/19 10:54 Duoneb - NEB Q6H PRN SHORTNESS OF BREATH Amino Acids 30 ml 08/09/19 08:00 09/05/19 17:06 Prosource No Carb Liquid Pkt GT 30 ml BID@0800,1730 [facility] Administration Artificial Tears 1 drop 08/08/19 18:05 09/05/19 09:19 Artificial Tears OU 1 drop Q12H PRN Administration DRY EYES Ascorbic Acid 500 mg 08/09/19 10:00 09/05/19 09:17 Vitamin C Oral Solution - GT 500 mg DAILY [facility] Administration Carvedilol 6.25 mg 08/20/19 09:33 09/05/19 09:14 Coreg - PO 6.25 mg BID [facility]IKI Administration Cholecalciferol 800 unit 08/09/19 10:00 09/05/19 09:18 Vitamin D3 - NR 800 unit DAILY [facility] Administration Enoxaparin Sodium 40 mg 08/15/19 10:00 09/05/19 09:15 Lovenox - SQ 40 mg DAILY [facility] Administration Famotidine 20 mg 08/28/19 22:00 09/05/19 09:15 Pepcid NGT 20 mg BID [facility] Administration Lacosamide 200 mg 08/10/19 22:00 09/05/19 09:17 Vimpat Liquid - PO 200 mg BID [facility] Administration Levetiracetam 1,000 mg 08/10/19 22:00 09/05/19 09:15 Keppra Oral Solution - NGT 1,000 mg BID [facility] Administration Nystatin 1 applic 08/21/19 11:15 09/05/19 09:15 Nystop Powder - TP 1 applic BID [facility] Administration Phenobarbital 60 mg 08/10/19 22:00 09/05/19 09:16 Phenobarbital Liquid - NGT 60 mg BID [facility] Administration Potassium Chloride 40 meq 08/08/19 22:00 09/05/19 09:16 Potassium Chloride Oral Liquid GT 40 meq BID [facility] Administration Quetiapine Fumarate 25 mg 08/18/19 10:45 09/05/19 09:16 Seroquel - PO 25 mg DAILY [facility] Administration Topiramate 200 mg 08/08/19 22:00 09/05/19 13:57 Topamax - GT 200 mg TID [facility] Administration Zinc Sulfate 220 mg 08/08/19 22:00 09/05/19 09:18 Orazinc - GT 220 mg BID [facility] Administration ASSESSMENT AND PLAN: 39 M Acute Resp Failure 2/2 COVID-19 s/p trach/plasma/Actemra Sepsis 2/2 polymicrobial infections (fungemia/bacteremia/COVID) Recurrent fever spikes Tachycardia Transaminitis Epilepsy Mental retardation Developmental delay Deconditioning Anemia s/p Trach/PEG, w/ PMV Plan: G tube site clean, afebrile, keep HOB elevation may require PT bed Not candidate for LTAC/SNF d/t insurance problems Cont. psych meds, Ativan PRN for anxiety/tachypnea Aggressive replacements of electrolytes Avoid further transaminitis Cont. to hold abx If continuously spiking fever change AC to therapeutic DVT ppx: Lovenox SC
--- NOTE | 2019-09-05 18:33 | PN ---
Physical Exam: SUBJECTIVE: Patient seen and examined bedside, afebrile overnight, VSS. 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 Period Temp Pulse Resp BP Sys/Ortiz Pulse Ox Last 24 Hr 98.3 F-99.8 F 99-114 24-32 116-140/76-97 100-100 Laboratory Results - last 24 hr 09/03/19 09/05/19 09/05/19 09:30 09:20 09:20 WBC 12.6 H RBC 3.59 L Hgb 9.7 L Hct 31.0 L MCV 86.6 MCH 26.9 MCHC 31.1 L RDW 16.9 H Plt Count 293 D MPV 10.8 Absolute Neuts (auto) 8.6 H Neutrophils % 67.8 Lymphocytes % 22.0 D Monocytes % 6.1 Eosinophils % 3.7 Basophils % 0.4 Nucleated RBC % 0 Sodium 143 Potassium 3.6 Chloride 113 H Carbon Dioxide 26 Anion Gap 5 L BUN 13.5 Creatinine 0.4 L Est GFR (CKD-EPI)AfAm 174.63 Est GFR (CKD-EPI)NonAf 150.67 Random Glucose 98 Calcium 9.6 Total Bilirubin 0.3 AST 49 H ALT 140 H Alkaline Phosphatase 131 H Total Protein 6.3 L Albumin 2.5 L COVID-19 (LEROY) Not detected Active Medications Generic Name Dose Route Start Last Admin Trade Name Freq PRN Reason Stop Dose Admin Albuterol/Ipratropium 1 amp 09/03/19 10:54 Duoneb - NEB Q6H PRN SHORTNESS OF BREATH Amino Acids 30 ml 08/09/19 08:00 09/05/19 17:06 Prosource No Carb Liquid Pkt GT 30 ml BID@0800,1730 [facility] Administration Artificial Tears 1 drop 08/08/19 18:05 09/05/19 09:19 Artificial Tears OU 1 drop Q12H PRN Administration DRY EYES Ascorbic Acid 500 mg 08/09/19 10:00 09/05/19 09:17 Vitamin C Oral Solution - GT 500 mg DAILY [facility] Administration Carvedilol 6.25 mg 08/20/19 09:33 09/05/19 09:14 Coreg - PO 6.25 mg BID [facility] Administration Cholecalciferol 800 unit 08/09/19 10:00 09/05/19 09:18 Vitamin D3 - NR 800 unit DAILY [facility] Administration Enoxaparin Sodium 40 mg 08/15/19 10:00 09/05/19 09:15 Lovenox - SQ 40 mg DAILY [facility] Administration Famotidine 20 mg 08/28/19 22:00 09/05/19 09:15 Pepcid NGT 20 mg BID [facility] Administration Lacosamide 200 mg 08/10/19 22:00 09/05/19 09:17 Vimpat Liquid - PO 200 mg BID [facility] Administration Levetiracetam 1,000 mg 08/10/19 22:00 09/05/19 09:15 Keppra Oral Solution - NGT 1,000 mg BID [facility] Administration Nystatin 1 applic 08/21/19 11:15 09/05/19 09:15 Nystop Powder - TP 1 applic BID [facility] Administration Phenobarbital 60 mg 08/10/19 22:00 09/05/19 09:16 Phenobarbital Liquid - NGT 60 mg BID [facility] Administration Potassium Chloride 40 meq 08/08/19 22:00 09/05/19 09:16 Potassium Chloride Oral Liquid GT 40 meq BID [facility] Administration Quetiapine Fumarate 25 mg 08/18/19 10:45 09/05/19 09:16 Seroquel - PO 25 mg DAILY [facility] Administration Topiramate 200 mg 08/08/19 22:00 09/05/19 13:57 Topamax - GT 200 mg TID [facility] Administration Zinc Sulfate 220 mg 08/08/19 22:00 09/05/19 09:18 Orazinc - GT 220 mg BID [facility] Administration ASSESSMENT/PLAN: 39 M Acute Resp Failure 2/2 COVID-19 s/p trach/plasma/Actemra Sepsis 2/2 polymicrobial infections (fungemia/bacteremia/COVID) Recurrent fever spikes Tachycardia Transaminitis Epilepsy Mental retardation Developmental delay Deconditioning Anemia s/p Trach/PEG, w/ PMV Plan: G tube site clean, afebrile, keep HOB elevation may require PT bed Not candidate for LTAC/SNF d/t insurance problems Cont. psych meds, Ativan PRN for anxiety/tachypnea Aggressive replacements of electrolytes Avoid further transaminitis causing drugs Cont. to hold abx If continuously spiking fever change AC to therapeutic DVT ppx: Lovenox SC Visit type - Emergency Visit Emergency Visit: Yes ED Registration Date: 06/22/19 Care time: The patient presented to the Emergency Department on the above date and was hospitalized for further evaluation of their emergent condition. - New Patient This patient is new to me today: No - Critical Care Critical Care patient: No - Discharge Referral Referred to [facility] No
--- NOTE | 2019-09-05 21:35 | PN ---
Progress Note, Physician Chief Complaint: POORLY RESPONSIVE ON TRACH COLLAR LOW GRADE TEMPS WBC SL ELEVATED - Current Medication List Current Medications: Active Medications Albuterol/Ipratropium (Duoneb -) 1 amp NEB Q6H PRN PRN Reason: SHORTNESS OF BREATH Amino Acids (Prosource No Carb Liquid Pkt) 30 ml GT BID@0800,1730 [facility] Last Admin: 09/05/19 17:06 Dose: 30 ml Documented by: Artificial Tears (Artificial Tears) 1 drop OU Q12H PRN PRN Reason: DRY EYES Last Admin: 09/05/19 09:19 Dose: 1 drop Documented by: Ascorbic Acid (Vitamin C Oral Solution -) 500 mg GT DAILY [facility] Last Admin: 09/05/19 09:17 Dose: 500 mg Documented by: Carvedilol (Coreg -) 6.25 mg PO BID [facility] Last Admin: 09/05/19 09:14 Dose: 6.25 mg Documented by: Cholecalciferol (Vitamin D3 -) 800 unit NR DAILY [facility] Last Admin: 09/05/19 09:18 Dose: 800 unit Documented by: Enoxaparin Sodium (Lovenox -) 40 mg SQ DAILY [facility] Last Admin: 09/05/19 09:15 Dose: 40 mg Documented by: Famotidine (Pepcid) 20 mg NGT BID [facility] Last Admin: 09/05/19 09:15 Dose: 20 mg Documented by: Lacosamide (Vimpat Liquid -) 200 mg PO BID [facility] Last Admin: 09/05/19 09:17 Dose: 200 mg Documented by: Levetiracetam (Keppra Oral Solution -) 1,000 mg NGT BID [facility] Last Admin: 09/05/19 09:15 Dose: 1,000 mg Documented by: Nystatin (Nystop Powder -) 1 applic TP BID [facility] Last Admin: 09/05/19 09:15 Dose: 1 applic Documented by: Phenobarbital (Phenobarbital Liquid -) 60 mg NGT BID [facility] Last Admin: 09/05/19 09:16 Dose: 60 mg Documented by: Potassium Chloride (Potassium Chloride Oral Liquid) 40 meq GT BID [facility] Last Admin: 09/05/19 09:16 Dose: 40 meq Documented by: Quetiapine Fumarate (Seroquel -) 25 mg PO DAILY [facility] Last Admin: 09/05/19 09:16 Dose: 25 mg Documented by: Topiramate (Topamax -) 200 mg GT TID [facility] Last Admin: 09/05/19 13:57 Dose: 200 mg Documented by: Zinc Sulfate (Orazinc -) 220 mg GT BID [facility] Last Admin: 09/05/19 09:18 Dose: 220 mg Documented by: - Objective Vital Signs: Vital Signs Temperature 99.2 F 09/05/19 18:00 Pulse Rate 102 H 09/05/19 18:00 Respiratory Rate 24 H 09/05/19 18:00 Blood Pressure 119/75 09/05/19 18:00 O2 Sat by Pulse Oximetry (%) 100 09/05/19 16:06 Constitutional: Yes: No Distress Eyes: Yes: Conjunctiva Clear Cardiovascular: Yes: Regular Rate and Rhythm, S1, S2 Gastrointestinal: Yes: Normal Bowel Sounds, Soft Edema: Yes Labs: CBC, BMP 09/05/19 09:20 09/05/19 09:20 INR, PTT INR 1.20 (0.83-1.09) H 08/21/19 11:30 Assessment/Plan LOW GRADE TEMPS RESP FAILURE BILATERAL PNEUMONIA/ARDS FUO + URINE C/S ESBL BC (-) COVID-19+ S/P TOCILIZUMAB, PLASMA +BC SCN, CATARINO CONTINUE VENTILATORY SUPPORT AIRBORNE PRECAUTIONS MACROBID X [id number]
[2019-09-06] MEDS: LACTATED RINGERS SOLUTION 1,000 ML/1,000 ML INFUS.BAG IV SCH (01:41)
[2019-09-06] MEDS ORDERED: PT OWN MED DRAWER 7, Y5N ONE ×2 (05:09→21:27)
[2019-09-06] MEDS: TOPIRAMATE 200 MG TABLET GT SCH ×3 (05:14→21:33)
--- NOTE | 2019-09-06 08:21 | PN.GI ---
GI Progress Note Subjective: STATUS UNCHANGED NO NEW EVENTS - Objective Vital Signs: Vital Signs Temperature 98.7 F 09/06/19 06:00 Pulse Rate 97 H 09/06/19 06:00 Respiratory Rate 25 H 09/06/19 06:00 Blood Pressure 138/88 09/06/19 06:00 O2 Sat by Pulse Oximetry (%) 100 09/06/19 04:15 Constitutional: No Distress, Calm Gastrointestinal Inspection: Yes: WNL, Other (PEG) ...Auscultate: Yes: Normoactive Bowel Sounds Labs: CBC, BMP 09/05/19 09:20 09/05/19 09:20 INR, PTT INR 1.20 (0.83-1.09) H 08/21/19 11:30 Problem List - Problems (1) Dysphagia Assessment/Plan: Transaminitis multifactorial in origin with medication induced VS underlying infectious process as contributing etiologies. -- hepatitis serology negative for chronic disease -- trend lft daily -- avoid hepatotoxic medications Code(s): R13.10 - DYSPHAGIA, UNSPECIFIED (2) Acute respiratory failure with hypoxia Code(s): J96.01 - ACUTE RESPIRATORY FAILURE WITH HYPOXIA (3) COVID-19 Code(s): U07.1 - COVID POSITIVE
[2019-09-06 08:57] LABS: BASO % 0.6 % (0-2.0); EOS % 3.7 % (0-4.5); HEMATOCRIT 31.5 % (35.4-49); LYMPH % 23.3 % (8-40); MCH 27.8 pg (25.7-33.7); MCHC 31.6 g/dl (32.0-35.9); MEAN CELL VOLUME 87.9 fl (80-96); MEAN PLT VOLUME 11.2 fl (7.5-11.1); MONO % 7.1 % (3.8-10.2); NEUT % 65.3 % (42.8-82.8); PLATELET COUNT 311 K/MM3 (134-434); RBC 3.59 M/mm3 (4.00-5.60); RDW 16.6 % (11.9-15.9); WHITE BLOOD COUNT 10.3 K/mm3 (4.0-10.0)
[2019-09-06] MEDS: CARVEDILOL 6.25 MG TABLET (FP) PO SCH ×2 (09:12→21:33)
[2019-09-06] MEDS: levETIRAcetam 500 MG/5 ML ORAL SOLUTION (UNIT-DOSE CUPS) NGT SCH ×2 (09:12→21:34)
[2019-09-06] MEDS: AMINO ACIDS/PROTEIN HYDROLYS 30 ML LIQUID.PKT GT SCH ×2 (09:12→18:18)
[2019-09-06] MEDS: NYSTATIN POWDER 100,000 UNITS/GM - 15 GM TOPICAL POWDER TP SCH ×2 (09:13→21:34)
[2019-09-06] MEDS: ENOXAPARIN NA (PORCINE) 40 MG/0.4 ML DISP.SYRIN SQ SCH (09:13)
[2019-09-06] MEDS: PHENobarbital 20 MG/5 ML UNIT-DOSE CUP NGT SCH ×2 (09:14→21:33)
[2019-09-06] MEDS: ZINC SULFATE 220 MG CAPSULE (FP) GT SCH ×2 (09:14→21:34)
[2019-09-06] MEDS: FAMOTIDINE 40 MG/5 ML ORAL SUSPENSION NGT SCH ×2 (09:14→21:35)
[2019-09-06] MEDS: POTASSIUM CHLORIDE ORAL LIQUID 20 MEQ/15 ML GT SCH ×2 (09:14→21:33)
[2019-09-06] MEDS: Lacosamide 50 MG/5 ML ORAL SOLUTION UNIT CUPS PO SCH ×2 (09:15→21:33)
[2019-09-06] MEDS: QUEtiapine FUMARATE 25 MG TABLET PO SCH (09:15)
[2019-09-06] MEDS: CHOLECALCIFEROL (VIT D3) 400 UNIT (10 MCG) TABLET NR SCH (09:16)
[2019-09-06] MEDS: ASCORBIC ACID 500 MG/5 ML UNIT DOSE CUP GT SCH (09:16)
[2019-09-06 09:44] LABS: ALBUMIN 2.6 g/dl (3.4-5.0); BILIRUBIN,TOTAL 0.2 mg/dL (0.2-1); BLOOD UREA NITROGEN 15.6 mg/dL (7-18); CREATININE 0.4 mg/dL (0.55-1.3); POTASSIUM 3.7 mmol/L (3.5-5.1); TOT PROT 6.5 g/dl (6.4-8.2)
[2019-09-06] MEDS: NITROFURANTOIN MACROCRYSTAL 50 MG CAPSULE (FP) GT SCH ×2 (13:05→19:18)
--- NOTE | 2019-09-06 13:54 | PN ---
Progress Note (short form) - Note Progress Note: PULMONARY Vented, awake. No fevers recorded. Tolerating CPAP/PS. Vital Signs Period Temp Pulse Resp BP Sys/Ortiz Pulse Ox Last 24 Hr 97.8 F-99.8 F 89-109 22-30 116-142/74-92 99-100 Gen: vented, awake Heart: tachycardic, regular Lung: decreased breath sounds at the bases Abd: soft, nontender Ext: no edema CBC, BMP 09/06/19 08:16 09/06/19 08:16 Active Medications Albuterol/Ipratropium (Duoneb -) 1 amp NEB Q6H PRN PRN Reason: SHORTNESS OF BREATH Amino Acids (Prosource No Carb Liquid Pkt) 30 ml GT BID@0800,1730 [facility] Last Admin: 09/06/19 09:12 Dose: 30 ml Documented by: Artificial Tears (Artificial Tears) 1 drop OU Q12H PRN PRN Reason: DRY EYES Last Admin: 09/05/19 09:19 Dose: 1 drop Documented by: Ascorbic Acid (Vitamin C Oral Solution -) 500 mg GT DAILY [facility] Last Admin: 09/06/19 09:16 Dose: 500 mg Documented by: Carvedilol (Coreg -) 6.25 mg PO BID [facility] Last Admin: 09/06/19 09:12 Dose: 6.25 mg Documented by: Cholecalciferol (Vitamin D3 -) 800 unit NR DAILY [facility] Last Admin: 09/06/19 09:16 Dose: 800 unit Documented by: Enoxaparin Sodium (Lovenox -) 40 mg SQ DAILY [facility] Last Admin: 09/06/19 09:13 Dose: 40 mg Documented by: Famotidine (Pepcid) 20 mg NGT BID [facility] Last Admin: 09/06/19 09:14 Dose: 20 mg Documented by: Lactated Ringer's (Lactated Ringers Solution) 1,000 ml in 1,000 mls @ 75 mls/hr IV ASDIR [facility] Last Admin: 09/06/19 01:41 Dose: 75 mls/hr Documented by: Lacosamide (Vimpat Liquid -) 200 mg PO BID [facility] Last Admin: 09/06/19 09:15 Dose: 200 mg Documented by: Levetiracetam (Keppra Oral Solution -) 1,000 mg NGT BID [facility] Last Admin: 09/06/19 09:12 Dose: 1,000 mg Documented by: Nitrofurantoin Macrocrystals (Macrodantin -) 50 mg GT Q6HPO [facility] Last Admin: 09/06/19 13:05 Dose: 50 mg Documented by: Nystatin (Nystop Powder -) 1 applic TP BID [facility] Last Admin: 09/06/19 09:13 Dose: 1 applic Documented by: Phenobarbital (Phenobarbital Liquid -) 60 mg NGT BID [facility] Last Admin: 09/06/19 09:14 Dose: 60 mg Documented by: Potassium Chloride (Potassium Chloride Oral Liquid) 40 meq GT BID [facility] Last Admin: 09/06/19 09:14 Dose: 40 meq Documented by: Quetiapine Fumarate (Seroquel -) 25 mg PO DAILY [facility] Last Admin: 09/06/19 09:15 Dose: 25 mg Documented by: Topiramate (Topamax -) 200 mg GT TID [facility] Last Admin: 09/06/19 05:14 Dose: 200 mg Documented by: Zinc Sulfate (Orazinc -) 220 mg GT BID [facility] Last Admin: 09/06/19 09:14 Dose: 220 mg Documented by: A/P Acute Hypoxic and Hypercapneic Respiratory Failure COVID19 Pneumonia E Coli Pneumonia Fungenmia Bacteremia Septic Shock Seizure Disorder Mental Retardation - completed antibiotics - continue antiepileptics - monitor urine output, creatinine - spontaeneous breathing trials as tolerated - PO as tolerated - DVT/GI prophylaxis
--- NOTE | 2019-09-06 18:08 | PN ---
Physical Exam: SUBJECTIVE: Patient seen and examined bedside, afebrile overnight, VSS. 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 present TEAM FACILITATOR: Alert nonverbal Vital Signs Period Temp Pulse Resp BP Sys/Ortiz Pulse Ox Last 24 Hr 97.8 F-99.8 F 89-109 22-25 121-142/72-92 99-100 Laboratory Results - last 24 hr 09/06/19 09/06/19 08:16 08:16 WBC 10.3 H RBC 3.59 L Hgb 10.0 L Hct 31.5 L MCV 87.9 MCH 27.8 MCHC 31.6 L RDW 16.6 H Plt Count 311 MPV 11.2 H Absolute Neuts (auto) 6.7 Neutrophils % 65.3 Lymphocytes % 23.3 Monocytes % 7.1 Eosinophils % 3.7 Basophils % 0.6 Nucleated RBC % 0 Sodium 146 H Potassium 3.7 Chloride 113 H Carbon Dioxide 22 Anion Gap 12 BUN 15.6 Creatinine 0.4 L Est GFR (CKD-EPI)AfAm 174.63 Est GFR (CKD-EPI)NonAf 150.67 Random Glucose 96 Calcium 10.0 Total Bilirubin 0.2 AST 59 H ALT 143 H Alkaline Phosphatase 127 H Total Protein 6.5 Albumin 2.6 L Active Medications Generic Name Dose Route Start Last Admin Trade Name Walterq PRN Reason Stop Dose Admin Albuterol/Ipratropium 1 amp 09/03/19 10:54 Duoneb - NEB Q6H PRN SHORTNESS OF BREATH Amino Acids 30 ml 08/09/19 08:00 09/06/19 09:12 Prosource No Carb Liquid Pkt GT 30 ml BID@0800,1730 [facility] Administration Artificial Tears 1 drop 08/08/19 18:05 09/05/19 09:19 Artificial Tears OU 1 drop Q12H PRN Administration DRY EYES Ascorbic Acid 500 mg 08/09/19 10:00 09/06/19 09:16 Vitamin C Oral Solution - GT 500 mg DAILY [facility] Administration Carvedilol 6.25 mg 08/20/19 09:33 09/06/19 09:12 Coreg - PO 6.25 mg BID [facility] Administration Cholecalciferol 800 unit 08/09/19 10:00 09/06/19 09:16 Vitamin D3 - NR 800 unit DAILY [facility] Administration Enoxaparin Sodium 40 mg 08/15/19 10:00 09/06/19 09:13 Lovenox - SQ 40 mg DAILY [facility] Administration Famotidine 20 mg 08/28/19 22:00 09/06/19 09:14 Pepcid NGT 20 mg BID [facility] Administration Lactated Ringer's 1,000 ml in 1,000 mls @ 75 mls/hr 09/06/19 01:15 09/06/19 01:41 Lactated Ringers Solution IV 75 mls/hr ASDIR [facility] Administration Lacosamide 200 mg 08/10/19 22:00 09/06/19 09:15 Vimpat Liquid - PO 200 mg BID [facility] Administration Levetiracetam 1,000 mg 08/10/19 22:00 09/06/19 09:12 Keppra Oral Solution - NGT 1,000 mg BID [facility] Administration Nitrofurantoin Macrocrystals 50 mg 09/06/19 12:00 09/06/19 13:05 Macrodantin - GT 50 mg Q6HPO [facility] Administration Nystatin 1 applic 08/21/19 11:15 09/06/19 09:13 Nystop Powder - TP 1 applic BID [facility] Administration Phenobarbital 60 mg 08/10/19 22:00 09/06/19 09:14 Phenobarbital Liquid - NGT 60 mg BID [facility] Administration Potassium Chloride 40 meq 08/08/19 22:00 09/06/19 09:14 Potassium Chloride Oral Liquid GT 40 meq BID [facility] Administration Quetiapine Fumarate 25 mg 08/18/19 10:45 09/06/19 09:15 Seroquel - PO 25 mg DAILY [facility] Administration Topiramate 200 mg 08/08/19 22:00 09/06/19 14:28 Topamax - GT 200 mg TID [facility] Administration Zinc Sulfate 220 mg 08/08/19 22:00 09/06/19 09:14 Orazinc - GT 220 mg BID [facility] Administration ASSESSMENT/PLAN: 39 M Acute Resp Failure 2/2 COVID-19 s/p trach/plasma/Actemra Sepsis 2/2 polymicrobial infections (fungemia/bacteremia/COVID) also found ESBL UTI Recurrent fever spikes Tachycardia Transaminitis Epilepsy Mental retardation Developmental delay Deconditioning Anemia s/p Trach/PEG, w/ PMV Plan: Macrobid started by ID for ESBL e. coli G tube site clean, afebrile, keep HOB elevation may require PT bed Awaiting LTAC/SNF placement Cont. psych meds, Ativan PRN for anxiety/tachypnea Aggressive replacements of electrolytes Avoid further transaminitis causing drugs DVT ppx: Lovenox SC Visit type - Emergency Visit Emergency Visit: Yes ED Registration Date: 06/22/19 Care time: The patient presented to the Emergency Department on the above date and was hospitalized for further evaluation of their emergent condition. - New Patient This patient is new to me today: No - Critical Care Critical Care patient: No - Discharge Referral Referred to [facility] No
[2019-09-07] MEDS: NITROFURANTOIN MACROCRYSTAL 50 MG CAPSULE (FP) GT SCH ×4 (00:54→18:01)
[2019-09-07] MEDS: LACTATED RINGERS SOLUTION 1,000 ML/1,000 ML INFUS.BAG IV SCH (01:01)
[2019-09-07] MEDS: TOPIRAMATE 200 MG TABLET GT SCH ×3 (05:44→21:47)
[2019-09-07] MEDS: CARVEDILOL 6.25 MG TABLET (FP) PO SCH ×2 (10:18→21:48)
[2019-09-07] MEDS: ENOXAPARIN NA (PORCINE) 40 MG/0.4 ML DISP.SYRIN SQ SCH (10:18)
[2019-09-07] MEDS: CHOLECALCIFEROL (VIT D3) 400 UNIT (10 MCG) TABLET NR SCH (10:19)
[2019-09-07] MEDS: FAMOTIDINE 40 MG/5 ML ORAL SUSPENSION NGT SCH ×2 (10:19→21:47)
[2019-09-07] MEDS: PHENobarbital 20 MG/5 ML UNIT-DOSE CUP NGT SCH ×2 (10:20→21:48)
[2019-09-07] MEDS: POTASSIUM CHLORIDE ORAL LIQUID 20 MEQ/15 ML GT SCH ×2 (10:20→21:48)
[2019-09-07] MEDS: Lacosamide 50 MG/5 ML ORAL SOLUTION UNIT CUPS PO SCH ×2 (10:20→21:49)
[2019-09-07] MEDS: AMINO ACIDS/PROTEIN HYDROLYS 30 ML LIQUID.PKT GT SCH ×2 (10:20→18:01)
[2019-09-07] MEDS: levETIRAcetam 500 MG/5 ML ORAL SOLUTION (UNIT-DOSE CUPS) NGT SCH ×2 (10:21→21:48)
[2019-09-07] MEDS: QUEtiapine FUMARATE 25 MG TABLET PO SCH (10:25)
[2019-09-07] MEDS: ZINC SULFATE 220 MG CAPSULE (FP) GT SCH ×2 (10:25→21:49)
[2019-09-07] MEDS: NYSTATIN POWDER 100,000 UNITS/GM - 15 GM TOPICAL POWDER TP SCH ×2 (10:25→21:49)
[2019-09-07] MEDS: ASCORBIC ACID 500 MG/5 ML UNIT DOSE CUP GT SCH (10:26)
--- NOTE | 2019-09-07 10:53 | PN ---
Progress Note, BENZENE WASHER - Note Progress Note: Selected Entries 09/06/19 09/06/19 09/06/19 02:00 06:00 08:07 Supper Temperature 98.7 F 98.7 F Pulse Rate 100 H 97 H 91 H Blood Pressure 121/74 138/88 09/06/19 09/06/19 09/06/19 09:00 10:00 14:00 Supper Temperature 97.8 F 98.5 F Pulse Rate 89 89 98 H Blood Pressure 133/92 128/72 09/06/19 09/06/19 09/07/19 18:00 22:00 01:48 Supper NPO Temperature 98.9 F 98.6 F 98.6 F Pulse Rate 96 H 91 H 98 H Blood Pressure 133/90 131/90 121/87 09/07/19 09/07/19 05:00 08:30 Supper Temperature 97.3 F L Pulse Rate 88 95 H Blood Pressure 117/80 Laboratory Tests 09/04/19 09/05/19 09/06/19 07:08 09:20 08:16 WBC 13.0 H 12.6 H 10.3 H Laboratory Tests 09/03/19 09:30 COVID-19 ([facility]) Not detected Spoke with RT today who reported pt could not tolerate PMV today, coughing on saliva x 10 minutes. PMV removed. Will assess again together. Reassessed with RT- Initially coughing with PMV placement, suctioned via trach, mouth as pt allowed, blew pt's nose, and with time, pt stopped coughing and overtly tolerated PMV, with good voicing and tolerance. SIMV/then CPAP adjusted by RT. Alarms set o2 sat 100% the entire time. TF placed on hold to reduce aspiration risk with cuff deflation. Reviewed with RT,RN, PMD/resident. Consider holding TF while using PMV. PMV, as tolerated. MBS when stronger, and using pmv- end of week?
[2019-09-07 12:16] LABS: HEMATOCRIT 35.1 % (35.4-49); MCHC 31.3 g/dl (32.0-35.9); MEAN CELL VOLUME 89.7 fl (80-96); MEAN PLT VOLUME 11.5 fl (7.5-11.1); RBC 3.91 M/mm3 (4.00-5.60); RDW 16.6 % (11.9-15.9)
[2019-09-07 12:46] LABS: ALBUMIN 2.7 g/dl (3.4-5.0); BILIRUBIN,TOTAL 0.3 mg/dL (0.2-1); BLOOD UREA NITROGEN 14.3 mg/dL (7-18); CALCIUM 9.6 mg/dL (8.5-10.1); CREATININE 0.5 mg/dL (0.55-1.3); POTASSIUM 3.6 mmol/L (3.5-5.1)
--- NOTE | 2019-09-07 13:21 | PN ---
Progress Note (short form) - Note Progress Note: Vented, awake. No fevers recorded. Tolerating CPAP/PS. Intake & Output 09/04/19 09/05/19 09/06/19 09/07/19 23:59 23:59 23:59 23:59 Intake Total 7450 723 5839 208 Balance 1449 363 4784 208 Weight 204 lb 4 oz Last Vital Signs Temp Pulse Resp BP Pulse Ox 97.3 F L 100 H 27 H 132/84 100 09/07/19 05:00 09/07/19 10:00 09/07/19 12:40 09/07/19 10:00 09/07/19 12:40 Active Medications Albuterol/Ipratropium (Duoneb -) 1 amp NEB Q6H PRN PRN Reason: SHORTNESS OF BREATH Amino Acids (Prosource No Carb Liquid Pkt) 30 ml GT BID@0800,1730 [facility] Last Admin: 09/07/19 10:20 Dose: 30 ml Documented by: Artificial Tears (Artificial Tears) 1 drop OU Q12H PRN PRN Reason: DRY EYES Last Admin: 09/05/19 09:19 Dose: 1 drop Documented by: Ascorbic Acid (Vitamin C Oral Solution -) 500 mg GT DAILY [facility] Last Admin: 09/07/19 10:26 Dose: 500 mg Documented by: Carvedilol (Coreg -) 6.25 mg PO BID [facility] Last Admin: 09/07/19 10:18 Dose: 6.25 mg Documented by: Cholecalciferol (Vitamin D3 -) 800 unit NR DAILY [facility] Last Admin: 09/07/19 10:19 Dose: 800 unit Documented by: Enoxaparin Sodium (Lovenox -) 40 mg SQ DAILY [facility] Last Admin: 09/07/19 10:18 Dose: 40 mg Documented by: Famotidine (Pepcid) 20 mg NGT BID [facility] Last Admin: 09/07/19 10:19 Dose: 20 mg Documented by: Lactated Ringer's (Lactated Ringers Solution) 1,000 ml in 1,000 mls @ 75 mls/hr IV ASDIR [facility] Last Admin: 09/07/19 01:01 Dose: Not Given Documented by: Lacosamide (Vimpat Liquid -) 200 mg PO BID [facility] Last Admin: 09/07/19 10:20 Dose: 200 mg Documented by: Levetiracetam (Keppra Oral Solution -) 1,000 mg NGT BID [facility] Last Admin: 09/07/19 10:21 Dose: 1,000 mg Documented by: Nitrofurantoin Macrocrystals (Macrodantin -) 50 mg GT Q6HPO [facility] Last Admin: 09/07/19 11:10 Dose: 50 mg Documented by: Nystatin (Nystop Powder -) 1 applic TP BID [facility] Last Admin: 09/07/19 10:25 Dose: 1 applic Documented by: Phenobarbital (Phenobarbital Liquid -) 60 mg NGT BID [facility] Last Admin: 09/07/19 10:20 Dose: 60 mg Documented by: Potassium Chloride (Potassium Chloride Oral Liquid) 40 meq GT BID [facility] Last Admin: 09/07/19 10:20 Dose: 40 meq Documented by: Quetiapine Fumarate (Seroquel -) 25 mg PO DAILY [facility] Last Admin: 09/07/19 10:25 Dose: 25 mg Documented by: Topiramate (Topamax -) 200 mg GT TID [facility] Last Admin: 09/07/19 13:04 Dose: 200 mg Documented by: Zinc Sulfate (Orazinc -) 220 mg GT BID [facility] Last Admin: 09/07/19 10:25 Dose: 220 mg Documented by: Gen: vented, awake Heart: tachycardic, regular Lung: decreased breath sounds at the bases Abd: soft, nontender Ext: no edema Laboratory Results - last 24 hr 09/07/19 09/07/19 11:00 11:00 WBC 10.0 RBC 3.91 L Hgb 11.0 L Hct 35.1 L MCV 89.7 MCH 28.0 MCHC 31.3 L RDW 16.6 H Plt Count MPV 11.5 H Neutrophils % No Result Required. Lymphocytes % No Result Required. Nucleated RBC % 0 Sodium 147 H Potassium 3.6 Chloride 115 H Carbon Dioxide 22 Anion Gap 10 BUN 14.3 Creatinine 0.5 L Est GFR (CKD-EPI)AfAm 159.33 Est GFR (CKD-EPI)NonAf 137.47 Random Glucose 107 H Calcium 9.6 Total Bilirubin 0.3 AST 53 H ALT 127 H Alkaline Phosphatase 138 H Total Protein 7.0 Albumin 2.7 L A/P Acute Hypoxic and Hypercapneic Respiratory Failure COVID19 Pneumonia E Coli Pneumonia Fungenmia Bacteremia Septic Shock Seizure Disorder Mental Retardation - completed antibiotics - continue antiepileptics - monitor urine output, creatinine - spontaeneous breathing trials as tolerated - PO as tolerated - DVT/GI prophylaxis Dr Callaway
[2019-09-07 13:48] LABS: ANISOCYTOSIS 0; MACROCYTOSIS 0; PLATELET ESTIMATE NORMAL
--- NOTE | 2019-09-07 14:56 | PN ---
Progress Note, Physician History of Present Illness: Pt seen and examined at bedside. He appears comfortable. His sodium is elevated. - Current Medication List Current Medications: Active Medications Albuterol/Ipratropium (Duoneb -) 1 amp NEB Q6H PRN PRN Reason: SHORTNESS OF BREATH Amino Acids (Prosource No Carb Liquid Pkt) 30 ml GT BID@0800,1730 [facility] Last Admin: 09/07/19 10:20 Dose: 30 ml Documented by: Artificial Tears (Artificial Tears) 1 drop OU Q12H PRN PRN Reason: DRY EYES Last Admin: 09/05/19 09:19 Dose: 1 drop Documented by: Ascorbic Acid (Vitamin C Oral Solution -) 500 mg GT DAILY [facility] Last Admin: 09/07/19 10:26 Dose: 500 mg Documented by: Carvedilol (Coreg -) 6.25 mg PO BID [facility] Last Admin: 09/07/19 10:18 Dose: 6.25 mg Documented by: Cholecalciferol (Vitamin D3 -) 800 unit NR DAILY [facility] Last Admin: 09/07/19 10:19 Dose: 800 unit Documented by: Enoxaparin Sodium (Lovenox -) 40 mg SQ DAILY [facility] Last Admin: 09/07/19 10:18 Dose: 40 mg Documented by: Famotidine (Pepcid) 20 mg NGT BID [facility] Last Admin: 09/07/19 10:19 Dose: 20 mg Documented by: Lactated Ringer's (Lactated Ringers Solution) 1,000 ml in 1,000 mls @ 75 mls/hr IV ASDIR [facility] Last Admin: 09/07/19 01:01 Dose: Not Given Documented by: Lacosamide (Vimpat Liquid -) 200 mg PO BID [facility] Last Admin: 09/07/19 10:20 Dose: 200 mg Documented by: Levetiracetam (Keppra Oral Solution -) 1,000 mg NGT BID [facility] Last Admin: 09/07/19 10:21 Dose: 1,000 mg Documented by: Nitrofurantoin Macrocrystals (Macrodantin -) 50 mg GT Q6HPO [facility] Last Admin: 09/07/19 11:10 Dose: 50 mg Documented by: Nystatin (Nystop Powder -) 1 applic TP BID [facility] Last Admin: 09/07/19 10:25 Dose: 1 applic Documented by: Phenobarbital (Phenobarbital Liquid -) 60 mg NGT BID [facility] Last Admin: 09/07/19 10:20 Dose: 60 mg Documented by: Potassium Chloride (Potassium Chloride Oral Liquid) 40 meq GT BID [facility] Last Admin: 09/07/19 10:20 Dose: 40 meq Documented by: Quetiapine Fumarate (Seroquel -) 25 mg PO DAILY [facility] Last Admin: 09/07/19 10:25 Dose: 25 mg Documented by: Topiramate (Topamax -) 200 mg GT TID [facility] Last Admin: 09/07/19 13:04 Dose: 200 mg Documented by: Zinc Sulfate (Orazinc -) 220 mg GT BID [facility] Last Admin: 09/07/19 10:25 Dose: 220 mg Documented by: - Objective Vital Signs: Vital Signs Temperature 97.3 F L 09/07/19 05:00 Pulse Rate 100 H 09/07/19 10:00 Respiratory Rate 28 H 09/07/19 14:37 Blood Pressure 132/84 09/07/19 10:00 O2 Sat by Pulse Oximetry (%) 100 09/07/19 14:37 Constitutional: Yes: Calm Eyes: Yes: Conjunctiva Clear HENT: Yes: Atraumatic Cardiovascular: Yes: S1, S2 Respiratory: Yes: Mechanically Ventilated Gastrointestinal: Yes: Soft Genitourinary: Yes: Caceres Present Musculoskeletal: Yes: Muscle Weakness Edema: No Neurological: Yes: Pre-Existing Deficit Labs: CBC, BMP 09/07/19 11:00 09/07/19 11:00 INR, PTT INR 1.20 (0.83-1.09) H 08/21/19 11:30 Problem List - Problems (1) Hypernatremia Code(s): E87.0 - HYPEROSMOLALITY AND HYPERNATREMIA (2) Hypokalemia Code(s): E87.6 - HYPOKALEMIA (3) Acute respiratory failure with hypoxia Code(s): J96.01 - ACUTE RESPIRATORY FAILURE WITH HYPOXIA (4) Bacteremia Code(s): R78.81 - BACTEREMIA Assessment/Plan Current Medications Generic Name Dose Route Start Last Admin Trade Name Freq PRN Reason Stop Dose Admin Albuterol/Ipratropium 1 amp 09/03/19 10:54 Duoneb - NEB Q6H PRN SHORTNESS OF BREATH Amino Acids 30 ml 08/09/19 08:00 09/07/19 10:20 Prosource No Carb Liquid Pkt GT 30 ml BID@0800,1730 [facility] Administration Artificial Tears 1 drop 08/08/19 18:05 09/05/19 09:19 Artificial Tears OU 1 drop Q12H PRN Administration DRY EYES Ascorbic Acid 500 mg 08/09/19 10:00 09/07/19 10:26 Vitamin C Oral Solution - GT 500 mg DAILY [facility] Administration Carvedilol 6.25 mg 08/20/19 09:33 09/07/19 10:18 Coreg - PO 6.25 mg BID [facility] Administration Cholecalciferol 800 unit 08/09/19 10:00 09/07/19 10:19 Vitamin D3 - NR 800 unit DAILY [facility] Administration Enoxaparin Sodium 40 mg 08/15/19 10:00 09/07/19 10:18 Lovenox - SQ 40 mg DAILY [facility] Administration Famotidine 20 mg 08/28/19 22:00 09/07/19 10:19 Pepcid NGT 20 mg BID [facility] Administration Lactated Ringer's 1,000 ml in 1,000 mls @ 75 mls/hr 09/06/19 01:15 09/07/19 01:01 Lactated Ringers Solution IV Not Given ASDIR [facility] Lacosamide 200 mg 08/10/19 22:00 09/07/19 10:20 Vimpat Liquid - PO 200 mg BID [facility] Administration Levetiracetam 1,000 mg 08/10/19 22:00 09/07/19 10:21 Keppra Oral Solution - NGT 1,000 mg BID [facility] Administration Nitrofurantoin Macrocrystals 50 mg 09/06/19 12:00 09/07/19 11:10 Macrodantin - GT 50 mg Q6HPO [facility] Administration Nystatin 1 applic 08/21/19 11:15 09/07/19 10:25 Nystop Powder - TP 1 applic BID [facility] Administration Phenobarbital 60 mg 08/10/19 22:00 09/07/19 10:20 Phenobarbital Liquid - NGT 60 mg BID [facility] Administration Potassium Chloride 40 meq 08/08/19 22:00 09/07/19 10:20 Potassium Chloride Oral Liquid GT 40 meq BID [facility] Administration Quetiapine Fumarate 25 mg 08/18/19 10:45 09/07/19 10:25 Seroquel - PO 25 mg DAILY [facility] Administration Topiramate 200 mg 08/08/19 22:00 09/07/19 13:04 Topamax - GT 200 mg TID [facility] Administration Zinc Sulfate 220 mg 08/08/19 22:00 09/07/19 10:25 Orazinc - GT 220 mg BID [facility] Administration Impression 1. hypokalemia 2. hypernatremia 3. resp failure 4. fungemia 5. covid 19 infection 6. ards 7. developemental delay 8. epilepsy 9. bactermia 10. resp acidosis with compensatory met alk Plan - sodium rising - increase free water with feeds - spoke to dietary for follow up - cont vent support - would keep diuretics on hold - trache care - volume status stable
--- NOTE | 2019-09-07 16:35 | PN ---
Physical Exam: SUBJECTIVE: Patient seen and examined at bedside this morning, No acute events overnight. OBJECTIVE: Vital Signs Temperature 99.1 F 09/07/19 14:00 Pulse Rate 94 H 09/07/19 14:00 Respiratory Rate 26 H 09/07/19 15:35 Blood Pressure 132/96 09/07/19 14:00 O2 Sat by Pulse Oximetry (%) 100 09/07/19 15:35 GENERAL: The patient is awake, alert, nonverbal, follows commands EYES: PERRLA, EOMI EENT:moist mucous membranes. NECK: Trach in place LUNGS: Breath sounds equal, clear to auscultation bilaterally HEART: tachycardic, regular, S1, S2 ABDOMEN: Soft, nontender, nondistended, Percutaneous G tube in place, clean dry and intact EXTREMITIES: 2+ pulses, warm, well-perfused, no edema. Laboratory Results - last 24 hr 09/07/19 09/07/19 11:00 11:00 WBC 10.0 RBC 3.91 L Hgb 11.0 L Hct 35.1 L MCV 89.7 MCH 28.0 MCHC 31.3 L RDW 16.6 H Plt Count MPV 11.5 H Neutrophils % No Result Required. Neutrophils % (Manual) 66.3 Band Neutrophils % 0.0 Lymphocytes % No Result Required. Lymphocytes % (Manual) 26.5 D Monocytes % (Manual) 5 Eosinophils % (Manual) 2.1 D Basophils % (Manual) 0.0 Myelocytes % (Man) 0 Promyelocytes % (Man) 0 Blast Cells % (Manual) 0 Nucleated RBC % 0 Metamyelocytes 0 D Hypochromia 0 Platelet Estimate Normal Polychromasia 0 Poikilocytosis 0 Anisocytosis 0 Microcytosis 0 Macrocytosis 0 Sodium 147 H Potassium 3.6 Chloride 115 H Carbon Dioxide 22 Anion Gap 10 BUN 14.3 Creatinine 0.5 L Est GFR (CKD-EPI)AfAm 159.33 Est GFR (CKD-EPI)NonAf 137.47 Random Glucose 107 H Calcium 9.6 Total Bilirubin 0.3 AST 53 H ALT 127 H Alkaline Phosphatase 138 H Total Protein 7.0 Albumin 2.7 L Active Medications Generic Name Dose Route Start Last Admin Trade Name Freq PRN Reason Stop Dose Admin Albuterol/Ipratropium 1 amp 09/03/19 10:54 Duoneb - NEB Q6H PRN SHORTNESS OF BREATH Amino Acids 30 ml 08/09/19 08:00 09/07/19 10:20 Prosource No Carb Liquid Pkt GT 30 ml BID@0800,1730 [facility] Administration Artificial Tears 1 drop 08/08/19 18:05 09/05/19 09:19 Artificial Tears OU 1 drop Q12H PRN Administration DRY EYES Ascorbic Acid 500 mg 08/09/19 10:00 09/07/19 10:26 Vitamin C Oral Solution - GT 500 mg DAILY [facility] Administration Carvedilol 6.25 mg 08/20/19 09:33 09/07/19 10:18 Coreg - PO 6.25 mg BID [facility] Administration Cholecalciferol 800 unit 08/09/19 10:00 09/07/19 10:19 Vitamin D3 - NR 800 unit DAILY [facility] Administration Enoxaparin Sodium 40 mg 08/15/19 10:00 09/07/19 10:18 Lovenox - SQ 40 mg DAILY [facility] Administration Famotidine 20 mg 08/28/19 22:00 09/07/19 10:19 Pepcid NGT 20 mg BID [facility] Administration Lactated Ringer's 1,000 ml in 1,000 mls @ 75 mls/hr 09/06/19 01:15 09/07/19 01:01 Lactated Ringers Solution IV Not Given ASDIR [facility] Lacosamide 200 mg 08/10/19 22:00 09/07/19 10:20 Vimpat Liquid - PO 200 mg BID [facility] Administration Levetiracetam 1,000 mg 08/10/19 22:00 09/07/19 10:21 Keppra Oral Solution - NGT 1,000 mg BID [facility] Administration Nitrofurantoin Macrocrystals 50 mg 09/06/19 12:00 09/07/19 11:10 Macrodantin - GT 50 mg Q6HPO [facility] Administration Nystatin 1 applic 08/21/19 11:15 09/07/19 10:25 Nystop Powder - TP 1 applic BID [facility] Administration Phenobarbital 60 mg 08/10/19 22:00 09/07/19 10:20 Phenobarbital Liquid - NGT 60 mg BID [facility] Administration Potassium Chloride 40 meq 08/08/19 22:00 09/07/19 10:20 Potassium Chloride Oral Liquid GT 40 meq BID [facility] Administration Quetiapine Fumarate 25 mg 08/18/19 10:45 09/07/19 10:25 Seroquel - PO 25 mg DAILY [facility] Administration Topiramate 200 mg 08/08/19 22:00 09/07/19 13:04 Topamax - GT 200 mg TID [facility] Administration Zinc Sulfate 220 mg 08/08/19 22:00 09/07/19 10:25 Orazinc - GT 220 mg BID [facility] Administration ASSESSMENT/PLAN: Patient is a 39 y/o M with PMH Mental Retardation and epilepsy who presented to ED initially with SOB and hypoxia requiring intubation, admitted to hospital for hypoxic respiratory failure 2/2 to covid-19. Hospital course complicated by bacteremia, fungemia, MRSA PNA, now with recurrent fever. #Acute Resp Failure 2/2 COVID-19 -s/p trach, convalescent plasma, tocilizumab -on CPAP vent settings. spontaneous breathing trials as tolerated -Pulm on board #Fever -persistent leukocytosis -Sputum Cx (08/21/2019) pos for MRSA, Dapto sensitive and E. coli, carbapenem sensitive -Blood cultures, urine cultures, cxr negative -ID on board. F/u Recs. Presently observing off Abx -Nephro on board #Transaminitis -persistent since admission -as of yet, no clear source identified -per GI, pt will potentially require a biopsy #Tachycardia -c/w Coreg -c/w low-dose seroquel to treat potential contribution of anxiety #Epilepsy -c/w lorazepam prn, levetiracitam, phenobarbitol, lacosamide, topiramate #FEN -not on any standing fluids -electrolytes wnl, routine bmp monitoring -Tube feed Jevity 1.5 #Prophylaxis -Lovenox 40mg sq daily #Disposition -full code - pending SNF placement Visit type - Emergency Visit Emergency Visit: Yes ED Registration Date: 06/22/19 Care time: The patient presented to the Emergency Department on the above date and was hospitalized for further evaluation of their emergent condition. - New Patient This patient is new to me today: No - Critical Care Critical Care patient: No ATTENDING PHYSICIAN STATEMENT I saw and evaluated the patient. I reviewed the resident's note and discussed the case with the resident. I agree with the resident's findings and plan as documented. SUBJECTIVE: OBJECTIVE: ASSESSMENT AND PLAN:
--- NOTE | 2019-09-07 16:36 | PN ---
Teaching Attending Note Name of Resident: Kae Pack ATTENDING PHYSICIAN STATEMENT I saw and evaluated the patient. I reviewed the resident's note and discussed the case with the resident. I agree with the resident's findings and plan as documented. SUBJECTIVE: Patient seen and examined bedside, likely micro/silently aspirating. Fever spikes every few days. On Macrobid. VSS. 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 present EVP: Alert nonverbal Vital Signs - 24 hr 09/06/19 09/06/19 09/06/19 18:00 20:30 21:00 Temperature 98.9 F Pulse Rate 96 H Respiratory 25 H 23 H 24 H Rate Blood Pressure 133/90 O2 Sat by Pulse 100 100 Oximetry (%) 09/06/19 09/07/19 09/07/19 22:00 00:35 01:48 Temperature 98.6 F 98.6 F Pulse Rate 91 H 98 H Respiratory 20 20 18 Rate Blood Pressure 131/90 121/87 O2 Sat by Pulse 100 Oximetry (%) 09/07/19 09/07/19 09/07/19 04:50 05:00 08:30 Temperature 97.3 F L Pulse Rate 88 95 H Respiratory 22 H 18 23 H Rate Blood Pressure 117/80 O2 Sat by Pulse 100 100 Oximetry (%) 09/07/19 09/07/19 09/07/19 09:00 10:00 11:53 Temperature Pulse Rate 100 H Respiratory 24 H 24 H Rate Blood Pressure 132/84 O2 Sat by Pulse 100 100 Oximetry (%) 09/07/19 09/07/19 09/07/19 12:40 14:00 14:37 Temperature 99.1 F Pulse Rate 94 H Respiratory 27 H 28 H 28 H Rate Blood Pressure 132/96 O2 Sat by Pulse 100 100 Oximetry (%) 09/07/19 15:35 Temperature Pulse Rate Respiratory 26 H Rate Blood Pressure O2 Sat by Pulse 100 Oximetry (%) Microbiology 09/03/19 08:04 Blood - Peripheral Venous Blood Culture - Preliminary NO GROWTH OBTAINED AFTER 96 HOURS, INCUBATION TO CONTINUE FOR 1 DAYS. 09/03/19 08:35 Blood - Peripheral Venous Blood Culture - Preliminary NO GROWTH OBTAINED AFTER 96 HOURS, INCUBATION TO CONTINUE FOR 1 DAYS. 09/03/19 09:30 Urine - Urine Caceres Urine Culture - Final Escherichia Coli Esbl Manufacturing Inspector 08/26/19 11:05 Blood - Peripheral Venous Blood Culture - Final NO GROWTH AFTER 5 DAYS INCUBATION 08/26/19 11:05 Blood - Peripheral Venous Blood Culture - Final NO GROWTH AFTER 5 DAYS INCUBATION 08/26/19 20:40 Sputum - Endotrachea Suction/Ventilator Gram Stain - Final 08/26/19 20:40 Sputum - Endotrachea Suction/Ventilator Sputum Culture - Final Mr S Aureus Escherichia Coli 08/26/19 19:15 Urine - Urine Caceres Urine Culture - Final NO GROWTH OBTAINED 08/26/19 22:15 Stool Cryptosporidium Antigen - Final 08/26/19 22:15 Stool Giardia Antigen (JASSON) - Final 08/26/19 12:10 Urine - Urine Caceres Legionella Antigen - Final 08/26/19 12:10 Urine - Urine Caceres Streptococcus pneumoniae Antigen (M - Final 08/20/19 20:20 Blood - Peripheral Venous Blood Culture - Final NO GROWTH AFTER 5 DAYS INCUBATION 08/20/19 20:20 Blood - Peripheral Venous Blood Culture - Final NO GROWTH AFTER 5 DAYS INCUBATION 08/21/19 03:17 Sputum - Endotrachea Suction/Ventilator AFB Smear Concentrat ion - Final 08/21/19 03:17 Sputum - Endotrachea Suction/Ventilator Mycobacterial Culture - Preliminary 08/20/19 05:00 Sputum - Endotrachea Suction/Ventilator AFB Smear Concentration - Final 08/20/19 05:00 Sputum - Endotrachea Suction/Ventilator Mycobacterial Culture - Preliminary 08/21/19 03:17 Sputum - Endotrachea Suction/Ventilator Gram Stain - Final 08/21/19 03:17 Sputum - Endotrachea Suction/Ventilator Sputum Culture - Final Mr S Aureus 08/17/19 02:00 Blood - Peripheral Venous Blood Culture - Final NO GROWTH AFTER 5 DAYS INCUBATION 08/17/19 02:00 Blood - Peripheral Venous Blood Culture - Final NO GROWTH AFTER 5 DAYS INCUBATION 08/20/19 19:30 Stool Clostridioides difficile Antigen - Final 08/20/19 19:30 Stool Clostridioides difficile Toxin Assay - Final 08/20/19 19:30 Urine For Antigen Detection Legionella Antigen - Final 08/20/19 19:30 Urine For Antigen Detection Streptococcus pneumoniae Antigen (M - Final 08/18/19 12:00 Sputum - Endotrachea Suction/Ventilator AFB Smear Concentration - Final 08/18/19 12:00 Sputum - Endotrachea Suction/Ventilator Mycobacterial Culture - Preliminary 08/17/19 11:35 Urine - Urine Caceres Urine Culture - Final NO GROWTH OBTAINED 08/12/19 13:10 Blood - Peripheral Venous Blood Culture - Final NO GROWTH AFTER 5 DAYS INCUBATION 08/12/19 13:00 Blood - Peripheral Venous Blood Culture - Final NO GROWTH AFTER 5 DAYS INCUBATION 08/14/19 14:50 Sputum - Endotrachea Suction/Ventilator Gram Stain - Final 08/14/19 14:50 Sputum - Endotrachea Suction/Ventilator Sputum Culture - Final NORMAL RESPIRATORY RICKY 08/14/19 14:49 Stool Clostridioides difficile Antigen - Final 08/14/19 14:49 Stool Clostridioides difficile Toxin Assay - Final 08/09/19 11:45 Blood - Peripheral Venous Blood Culture - Final NO GROWTH AFTER 5 DAYS INCUBATION 08/09/19 11:52 Blood - Peripheral Venous Blood Culture - Final NO GROWTH AFTER 5 DAYS INCUBATION 08/12/19 14:45 Stool Clostridioides difficile Antigen - Final 08/12/19 14:45 Stool Clostridioides difficile Toxin Assay - Final 08/09/19 16:30 Urine - Urine Caceres Urine Culture - Final NO GROWTH OBTAINED 08/04/19 19:40 Blood - Peripheral Venous Blood Culture - Final Staphylococcus Capitis 08/04/19 19:50 Blood - Peripheral Venous Blood Culture - Final NO GROWTH AFTER 5 DAYS INCUBATION 08/05/19 13:45 Urine - Urine Caceres Urine Culture - Final NO GROWTH OBTAINED 07/31/19 16:30 Blood - Peripheral Venous Blood Culture - Final NO GROWTH AFTER 5 DAYS INCUBATION 07/31/19 17:25 Blood - Peripheral Venous Blood Culture - Final Staphylococcus Capitis 08/01/19 11:55 Sputum - Endotrachea Suction/Ventilator Gram Stain - Final 08/01/19 11:55 Sputum - Endotrachea Suction/Ventilator Sputum Culture - Final Mr S Aureus 07/29/19 11:46 Blood - Peripheral Venous Blood Culture - Final NO GROWTH AFTER 5 DAYS INCUBATION 07/29/19 11:18 Blood - Central Line Blood Culture - Final NO GROWTH AFTER 5 DAYS INCUBATION 07/29/19 11:18 Urine - Urine Caceres Urine Culture - Final NO GROWTH OBTAINED 07/12/19 11:04 Blood - Peripheral Venous Yeast/Fungus Identification - Final Janis Lusitaniae 07/18/19 21:10 Blood - Peripheral Venous Blood Culture - Final NO GROWTH AFTER 5 DAYS INCUBATION 07/18/19 18:30 Blood - Peripheral Venous Blood Culture - Final NO GROWTH AFTER 5 DAYS INCUBATION 07/15/19 12:25 Blood - Peripheral Venous Blood Culture - Final NO GROWTH AFTER 5 DAYS INCUBATION 07/16/19 15:15 Blood - Peripheral Venous Blood Culture - Final Staphylococcus Epidermidis 07/14/19 11:30 Blood - Peripheral Venous Blood Culture - Final NO GROWTH AFTER 5 DAYS INCUBATION 07/16/19 15:05 Blood - Peripheral Venous Blood Culture - Final Staphylococcus Epidermidis 07/16/19 12:30 Sputum - Endotrachea Suction/Ventilator Gram Stain - Final 07/16/19 12:30 Sputum - Endotrachea Suction/Ventilator Sputum Culture - Final Mr S Aureus Escherichia Coli 07/12/19 10:55 Blood - Peripheral Venous Blood Culture - Final NO GROWTH AFTER 5 DAYS INCUBATION 07/16/19 12:30 Urine - Urine - Catheterized Urine Culture - Final NO GROWTH OBTAINED 07/12/19 06:00 Sputum - Endotrachea Suction/Ventilator Gram Stain - Final 07/12/19 06:00 Sputum - Endotrachea Suction/Ventilator Sputum Culture - Final 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 Mr S Aureus 07/12/19 11:04 Blood - Peripheral Venous Blood Culture - Final 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 07/01/19 18:15 Blood - Peripheral Venous Blood Culture - Final NO GROWTH AFTER 5 DAYS INCUBATION 06/29/19 12:30 Blood - Peripheral Venous Blood Culture - Final Staphylococcus Epidermidis 06/30/19 17:15 Sputum - Endotrachea Suction/Ventilator Gram Stain - Final 06/30/19 17:15 Sputum - Endotrachea Suction/Ventilator Sputum Culture - Final Escherichia Coli Esbl Manufacturing Inspector 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 06/28/19 09:00 Blood - Peripheral Venous Blood Culture - Final Staphylococcus Epidermidis 06/28/19 12:50 Sputum - Endotrachea Suction/Ventilator Gram Stain - Final 06/28/19 12:50 Sputum - Endotrachea Suction/Ventilator Sputum Culture - Final 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 Staphylococcus Aureus 06/25/19 13:40 Blood - Peripheral Venous Blood Culture - Final NO GROWTH AFTER 5 DAYS INCUBATION 06/25/19 13:20 Blood - Peripheral Venous Blood Culture - Final NO GROWTH AFTER 5 DAYS INCUBATION 06/28/19 12:51 Urine - Urine Caceres Urine Culture - Final NO GROWTH OBTAINED 06/22/19 13:00 Blood - Peripheral Venous Blood Culture - Final Staphylococcus Warneri 06/22/19 13:00 Blood - Peripheral Venous Blood Culture - Final Staphylococcus Epidermidis 06/24/19 00:01 Urine - Urine Caceres Urine Culture - Final NO GROWTH OBTAINED 06/24/19 00:01 Urine For Antigen Detection Legionella Antigen - Final 06/24/19 00:01 Urine For Antigen Detection Streptococcus pneumoniae Antigen (M - Final Home Medications Medication Instructions Recorded Topiramate [Topamax -] 200 mg PO TID #90 tablet 06/10/18 Lacosamide [Vimpat] 200 mg PO BID #60 tablet MDD 2 06/11/18 Phenobarbital - 60 mg PO BID #120 tablet MDD 4 06/11/18 levETIRAcetam [Keppra -] 1,000 mg PO BID 06/22/19 Current Medications Generic Name Dose Route Start Last Admin Trade Name Freq PRN Reason Stop Dose Admin Albuterol/Ipratropium 1 amp 09/03/19 10:54 Duoneb - NEB Q6H PRN SHORTNESS OF BREATH Amino Acids 30 ml 08/09/19 08:00 09/07/19 10:20 Prosource No Carb Liquid Pkt GT 30 ml BID@0800,1730 TIKI Administration Artificial Tears 1 drop 08/08/19 18:05 09/05/19 09:19 Artificial Tears OU 1 drop Q12H PRN Administration DRY EYES Ascorbic Acid 500 mg 08/09/19 10:00 09/07/19 10:26 Vitamin C Oral Solution - GT 500 mg DAILY TIKI Administration Carvedilol 6.25 mg 08/20/19 09:33 09/07/19 10:18 Coreg - PO 6.25 mg BID TIKI Administration Cholecalciferol 800 unit 08/09/19 10:00 09/07/19 10:19 Vitamin D3 - NR 800 unit DAILY TIKI Administration Enoxaparin Sodium 40 mg 08/15/19 10:00 09/07/19 10:18 Lovenox - SQ 40 mg DAILY TIKI Administration Famotidine 20 mg 08/28/19 22:00 09/07/19 10:19 Pepcid NGT 20 mg BID TIKI Administration Lactated Ringer's 1,000 ml in 1,000 mls @ 75 mls/hr 09/06/19 01:15 09/07/19 01:01 Lactated Ringers Solution IV Not Given ASDIR TIKI Lacosamide 200 mg 08/10/19 22:00 09/07/19 10:20 Vimpat Liquid - PO 200 mg BID TIKI Administration Levetiracetam 1,000 mg 08/10/19 22:00 09/07/19 10:21 Keppra Oral Solution - NGT 1,000 mg BID TIKI Administration Nitrofurantoin Macrocrystals 50 mg 09/06/19 12:00 09/07/19 11:10 Macrodantin - GT 50 mg Q6HPO TIKI Administration Nystatin 1 applic 08/21/19 11:15 09/07/19 10:25 Nystop Powder - TP 1 applic BID TIKI Administration Phenobarbital 60 mg 08/10/19 22:00 09/07/19 10:20 Phenobarbital Liquid - NGT 60 mg BID TIKI Administration Potassium Chloride 40 meq 08/08/19 22:00 09/07/19 10:20 Potassium Chloride Oral Liquid GT 40 meq BID TIKI Administration Quetiapine Fumarate 25 mg 08/18/19 10:45 09/07/19 10:25 Seroquel - PO 25 mg DAILY TIKI Administration Topiramate 200 mg 08/08/19 22:00 09/07/19 13:04 Topamax - GT 200 mg TID TIKI Administration Zinc Sulfate 220 mg 08/08/19 22:00 09/07/19 10:25 Orazinc - GT 220 mg BID TIKI Administration ASSESSMENT AND PLAN: 39 M Acute Resp Failure 2/2 COVID-19 s/p trach/plasma/Actemra Sepsis 2/2 polymicrobial infections (fungemia/bacteremia/COVID) also found ESBL UTI Recurrent fever spikes Tachycardia Transaminitis Epilepsy Mental retardation Developmental delay Deconditioning Anemia s/p Trach/PEG, w/ PMV Plan: Cont. Macrobid for ESBL UTi G tube site clean, keep HOB elevation may require PT bed, suctioning, aggressive oral care Awaiting LTAC/SNF placement Cont. psych meds, Ativan PRN for anxiety/tachypnea Aggressive replacements of electrolytes Avoid further transaminitis causing drugs DVT ppx: Lovenox SC
[2019-09-07] MEDS ORDERED: PT OWN MED DRAWER 7, Y5N ONE (21:45)
[2019-09-08] MEDS: NITROFURANTOIN MACROCRYSTAL 50 MG CAPSULE (FP) GT SCH ×5 (01:10→23:35)
[2019-09-08] MEDS ORDERED: PT OWN MED DRAWER 7, Y5N ONE ×4 (05:10→22:35)
[2019-09-08] MEDS: TOPIRAMATE 200 MG TABLET GT SCH ×3 (05:12→22:42)
[2019-09-08] MEDS: LACTATED RINGERS SOLUTION 1,000 ML/1,000 ML INFUS.BAG IV SCH (05:12)
--- NOTE | 2019-09-08 07:35 | PN ---
Progress Note, Physician History of Present Illness: pulmonary alert,on vent support imv with ps - Current Medication List Current Medications: Active Medications Albuterol/Ipratropium (Duoneb -) 1 amp NEB Q6H PRN PRN Reason: SHORTNESS OF BREATH Amino Acids (Prosource No Carb Liquid Pkt) 30 ml GT BID@0800,1730 [facility] Last Admin: 09/07/19 18:01 Dose: 30 ml Documented by: Artificial Tears (Artificial Tears) 1 drop OU Q12H PRN PRN Reason: DRY EYES Last Admin: 09/05/19 09:19 Dose: 1 drop Documented by: Ascorbic Acid (Vitamin C Oral Solution -) 500 mg GT DAILY [facility] Last Admin: 09/07/19 10:26 Dose: 500 mg Documented by: Carvedilol (Coreg -) 6.25 mg PO BID [facility] Last Admin: 09/07/19 21:48 Dose: 6.25 mg Documented by: Cholecalciferol (Vitamin D3 -) 800 unit NR DAILY [facility] Last Admin: 09/07/19 10:19 Dose: 800 unit Documented by: Enoxaparin Sodium (Lovenox -) 40 mg SQ DAILY [facility] Last Admin: 09/07/19 10:18 Dose: 40 mg Documented by: Famotidine (Pepcid) 20 mg NGT BID [facility] Last Admin: 09/07/19 21:47 Dose: 20 mg Documented by: Lactated Ringer's (Lactated Ringers Solution) 1,000 ml in 1,000 mls @ 75 mls/hr IV ASDIR [facility] Last Admin: 09/08/19 05:12 Dose: Not Given Documented by: Lacosamide (Vimpat Liquid -) 200 mg PO BID [facility] Last Admin: 09/07/19 21:49 Dose: 200 mg Documented by: Levetiracetam (Keppra Oral Solution -) 1,000 mg NGT BID [facility] Last Admin: 09/07/19 21:48 Dose: 1,000 mg Documented by: Nitrofurantoin Macrocrystals (Macrodantin -) 50 mg GT Q6HPO [facility] Last Admin: 09/08/19 05:12 Dose: 50 mg Documented by: Nystatin (Nystop Powder -) 1 applic TP BID [facility] Last Admin: 09/07/19 21:49 Dose: 1 applic Documented by: Phenobarbital (Phenobarbital Liquid -) 60 mg NGT BID [facility] Last Admin: 09/07/19 21:48 Dose: 60 mg Documented by: Potassium Chloride (Potassium Chloride Oral Liquid) 40 meq GT BID [facility] Last Admin: 09/07/19 21:48 Dose: 40 meq Documented by: Quetiapine Fumarate (Seroquel -) 25 mg PO DAILY [facility] Last Admin: 09/07/19 10:25 Dose: 25 mg Documented by: Topiramate (Topamax -) 200 mg GT TID [facility] Last Admin: 09/08/19 05:12 Dose: 200 mg Documented by: Zinc Sulfate (Orazinc -) 220 mg GT BID [facility] Last Admin: 09/07/19 21:49 Dose: 220 mg Documented by: - Objective Vital Signs: Vital Signs Temperature 97.2 F L 09/08/19 06:00 Pulse Rate 90 09/08/19 06:00 Respiratory Rate 20 09/08/19 06:00 Blood Pressure 150/84 09/08/19 06:00 O2 Sat by Pulse Oximetry (%) 100 09/08/19 04:44 Constitutional: Yes: Well Nourished, Calm Eyes: Yes: WNL HENT: Yes: WNL Neck: Yes: Supple (trach) Cardiovascular: Yes: Regular Rate and Rhythm, S1, S2 Respiratory: Yes: Rhonchi (few rhonchi) Gastrointestinal: Yes: Normal Bowel Sounds, Soft Extremities: Yes: WNL Edema: No Labs: CBC, BMP Problem List - Problems (1) COVID-19 Code(s): U07.1 - COVID POSITIVE (2) COVID-19 Code(s): U07.1 - COVID POSITIVE (3) Acute respiratory failure with hypoxia Code(s): J96.01 - ACUTE RESPIRATORY FAILURE WITH HYPOXIA (4) Seizure disorder Code(s): G40.909 - EPILEPSY, UNSP, NOT INTRACTABLE, WITHOUT STATUS EPILEPTICUS (5) Status epilepticus Code(s): G40.901 - EPILEPSY, UNSP, NOT INTRACTABLE, WITH STATUS EPILEPTICUS Assessment/Plan ASSESSMENT AND PLAN: Acute Hypoxic and Hypercapneic Respiratory Failure improving COVID19 Pneumonia E Coli Pneumonia Fungenmia Bacteremia Septic Shock Seizure Disorder Mental Retardation ABNORMAL LFTS - Ativan PRN - antiepileptics - titrate 02 - wean as tolerated - DVT/GI prophylaxis - inhaled bronchodilators - PMV as tolerated Dr MARTINEZ
[2019-09-08 07:57] LABS: BASO % 0.8 % (0-2.0); EOS % 4.4 % (0-4.5); HEMATOCRIT 30.8 % (35.4-49); HEMOGLOBIN 9.7 GM/dL (11.7-16.9); LYMPH % 30.1 % (8-40); MCH 27.9 pg (25.7-33.7); MCHC 31.5 g/dl (32.0-35.9); MEAN CELL VOLUME 88.5 fl (80-96); MEAN PLT VOLUME 10.7 fl (7.5-11.1); MONO % 8.7 % (3.8-10.2); PLATELET COUNT 306 K/MM3 (134-434); RBC 3.48 M/mm3 (4.00-5.60); RDW 16.5 % (11.9-15.9); WHITE BLOOD COUNT 9.8 K/mm3 (4.0-10.0)
[2019-09-08 08:10] LABS: ALBUMIN 2.7 g/dl (3.4-5.0); BILIRUBIN,TOTAL 0.2 mg/dL (0.2-1); BLOOD UREA NITROGEN 14.4 mg/dL (7-18); CALCIUM 9.1 mg/dL (8.5-10.1); CREATININE 0.4 mg/dL (0.55-1.3); MAGNESIUM 2.1 mg/dL (1.8-2.4); POTASSIUM 3.8 mmol/L (3.5-5.1); TOT PROT 6.3 g/dl (6.4-8.2)
--- NOTE | 2019-09-08 09:03 | PN ---
Teaching Attending Note Name of Resident: Kae Pack ATTENDING PHYSICIAN STATEMENT I saw and evaluated the patient. I reviewed the resident's note and discussed the case with the resident. I agree with the resident's findings and plan as documented. SUBJECTIVE: Comfortable more alert OBJECTIVE: Vital Signs Temperature 97.2 F L 09/08/19 06:00 Pulse Rate 88 09/08/19 08:30 Respiratory Rate 22 H 09/08/19 07:55 Blood Pressure 150/84 09/08/19 06:00 O2 Sat by Pulse Oximetry (%) 99 09/08/19 08:30 General: Young man status post trach not in distress HEENT mucous membranes moist, no anemia, no jaundice, PERRLA, no nystagmus Neck: Status post trach Chest: bilateral basal rales. CVS: S1-S2 no murmur/gallop/rub Abdomen: Nondistended, soft, bowel sounds present. Extremities: No edema., No Calf tenderness, pulses present SCIENTIFIC PROGRAMMER: Alert nonverbal CBC, BMP 09/08/19 06:55 09/08/19 06:55 Active Medications Albuterol/Ipratropium (Duoneb -) 1 amp NEB Q6H PRN PRN Reason: SHORTNESS OF BREATH Amino Acids (Prosource No Carb Liquid Pkt) 30 ml GT BID@0800,1730 [facility] Last Admin: 09/07/19 18:01 Dose: 30 ml Documented by: Artificial Tears (Artificial Tears) 1 drop OU Q12H PRN PRN Reason: DRY EYES Last Admin: 09/05/19 09:19 Dose: 1 drop Documented by: Ascorbic Acid (Vitamin C Oral Solution -) 500 mg GT DAILY [facility] [place] Last Admin: 09/07/19 10:26 Dose: 500 mg Documented by: Carvedilol (Coreg -) 6.25 mg PO BID [facility] Last Admin: 09/07/19 21:48 Dose: 6.25 mg Documented by: Cholecalciferol (Vitamin D3 -) 800 unit NR DAILY [facility] [place] Last Admin: 09/07/19 10:19 Dose: 800 unit Documented by: Enoxaparin Sodium (Lovenox -) 40 mg SQ DAILY [facility] Last Admin: 09/07/19 10:18 Dose: 40 mg Documented by: Famotidine (Pepcid) 20 mg NGT BID [facility] Last Admin: 09/07/19 21:47 Dose: 20 mg Documented by: Lactated Ringer's (Lactated Ringers Solution) 1,000 ml in 1,000 mls @ 75 mls/hr IV ASDIR [facility] Last Admin: 09/08/19 05:12 Dose: Not Given Documented by: Lacosamide (Vimpat Liquid -) 200 mg PO BID [facility] [place] Last Admin: 09/07/19 21:49 Dose: 200 mg Documented by: Levetiracetam (Keppra Oral Solution -) 1,000 mg NGT BID [facility] [place] Last Admin: 09/07/19 21:48 Dose: 1,000 mg Documented by: Nitrofurantoin Macrocrystals (Macrodantin -) 50 mg GT Q6HPO [facility] [place] Last Admin: 09/08/19 05:12 Dose: 50 mg Documented by: Nystatin (Nystop Powder -) 1 applic TP BID [facility] Last Admin: 09/07/19 21:49 Dose: 1 applic Documented by: Phenobarbital (Phenobarbital Liquid -) 60 mg NGT BID [facility] Last Admin: 09/07/19 21:48 Dose: 60 mg Documented by: Potassium Chloride (Potassium Chloride Oral Liquid) 40 meq GT BID [facility] Last Admin: 09/07/19 21:48 Dose: 40 meq Documented by: Quetiapine Fumarate (Seroquel -) 25 mg PO DAILY [facility] Last Admin: 09/07/19 10:25 Dose: 25 mg Documented by: Topiramate (Topamax -) 200 mg GT TID [facility] [place] Last Admin: 09/08/19 05:12 Dose: 200 mg Documented by: Zinc Sulfate (Orazinc -) 220 mg GT BID [facility] Last Admin: 09/07/19 21:49 Dose: 220 mg Documented by: ASSESSMENT AND PLAN:39 years old male mentally challenged, seizure disorders lives at home admitted with hypoxic respiratory failure on June 22, 2019 secondary to COVID-19, multiple pulmonary infection and bacteremia treated for fungemia, MRSA, ESBL E. coli,, persistent staph epi bacteremia normal echocardiogram completed vancomycin as per ID total 6 weeks of Vanco , now off antibiotic. Active issues 1. Hypoxic respiratory failure: due to COVID-19 pneumonia status post intubation and extubation now trach, vent dependent, vent management as per pulmonary consult. 2. H CAP: Completed antibiotic 3. MRSA bacteremia: Completed antibiotic for 6 weeks now afebrile cultures are negative will stop 4. Fungemia completed antibiotic 5. Seizure disorders: Seizure-free on current medications 6. Respiratory insufficiency: Continue vent and bronchodilators 7. Anemia H&H is stable Disposition: Patient has no insurance now vent dependent on social media senior associate is working for safe discharge to a long-term acute care. Case discussed with the resident. Problem List - Problems (1) Acute respiratory failure with hypoxia Code(s): J96.01 - ACUTE RESPIRATORY FAILURE WITH HYPOXIA (2) Bacteremia Code(s): R78.81 - BACTEREMIA (3) Fever Code(s): R50.9 - FEVER, UNSPECIFIED (4) Seizure disorder Code(s): G40.909 - EPILEPSY, UNSP, NOT INTRACTABLE, WITHOUT STATUS EPILEPTICUS (5) Diarrhea Code(s): R19.7 - DIARRHEA, UNSPECIFIED (6) DVT prophylaxis Code(s): Z29.9 - ENCOUNTER FOR PROPHYLACTIC MEASURES, UNSPECIFIED (7) Pneumonia due to COVID-19 virus Code(s): U07.1 - COVID POSITIVE; J12.89 - OTHER VIRAL PNEUMONIA (8) Tachycardia Code(s): R00.0 - TACHYCARDIA, UNSPECIFIED
--- NOTE | 2019-09-08 10:33 | PN ---
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 Reassessed and placed on PMV with good t olerance. Tolerated PMV x 5 hrs yesterday. TF held during that time. Selected Entries 09/07/19 09/07/19 09/07/19 01:48 05:00 08:30 Skin Risk Level Supper Temperature 98.6 F 97.3 F L Pulse Rate 98 H 88 95 H Blood Pressure 121/87 117/80 09/07/19 09/07/19 09/07/19 10:00 14:00 18:00 Skin Risk Level High Risk Supper NPO Temperature 99.1 F 98.7 F Pulse Rate 100 H 94 H 90 Blood Pressure 132/84 132/96 140/99 09/07/19 09/08/19 09/08/19 22:00 02:00 06:00 Skin Risk Level High Risk Supper Temperature 98.8 F 98.8 F 97.2 F L Pulse Rate 95 H 92 H 90 Blood Pressure 147/90 133/88 150/84 09/08/19 08:30 Skin Risk Level Supper Temperature Pulse Rate 88 Blood Pressure Laboratory Tests 09/07/19 09/08/19 11:00 06:55 WBC 10.0 9.8 TF held during PMV, due to cough, concern of aspiration. Pt tolerating PMV, with occasional brief cough. Little secretions suctioned. Trial HOB elevated/TF. Monitor tolerance Continue PMV, as tolerated. Ventilator Weaning, as possible, per Pulmonary. Plan to repeat MBS for possible PO trials this week.
[2019-09-08] MEDS: AMINO ACIDS/PROTEIN HYDROLYS 30 ML LIQUID.PKT GT SCH ×2 (11:04→17:02)
[2019-09-08] MEDS: PHENobarbital 20 MG/5 ML UNIT-DOSE CUP NGT SCH ×2 (11:04→22:39)
[2019-09-08] MEDS: levETIRAcetam 500 MG/5 ML ORAL SOLUTION (UNIT-DOSE CUPS) NGT SCH ×2 (11:04→22:38)
[2019-09-08] MEDS: POTASSIUM CHLORIDE ORAL LIQUID 20 MEQ/15 ML GT SCH ×2 (11:04→22:39)
[2019-09-08] MEDS: ENOXAPARIN NA (PORCINE) 40 MG/0.4 ML DISP.SYRIN SQ SCH (11:04)
[2019-09-08] MEDS: Lacosamide 50 MG/5 ML ORAL SOLUTION UNIT CUPS PO SCH ×2 (11:05→22:38)
[2019-09-08] MEDS: ZINC SULFATE 220 MG CAPSULE (FP) GT SCH ×2 (11:05→22:39)
[2019-09-08] MEDS: CARVEDILOL 6.25 MG TABLET (FP) PO SCH ×2 (11:06→22:39)
[2019-09-08] MEDS: QUEtiapine FUMARATE 25 MG TABLET PO SCH (11:06)
[2019-09-08] MEDS: NYSTATIN POWDER 100,000 UNITS/GM - 15 GM TOPICAL POWDER TP SCH ×2 (11:07→22:39)
[2019-09-08] MEDS: CHOLECALCIFEROL (VIT D3) 400 UNIT (10 MCG) TABLET NR SCH (11:07)
[2019-09-08] MEDS: FAMOTIDINE 40 MG/5 ML ORAL SUSPENSION NGT SCH ×2 (11:08→22:40)
[2019-09-08] MEDS: ASCORBIC ACID 500 MG/5 ML UNIT DOSE CUP GT SCH (11:08)
[2019-09-08] MEDS ORDERED: ALBUTEROL SO4 2.5/IPRATROPIUM 0.5 INH SOL 3 ML VIAL.NEB. NEB PRN (13:10)
--- NOTE | 2019-09-08 13:14 | PN ---
Physical Exam: SUBJECTIVE: Patient seen and examined at bedside this morning. No acute events overnight. OBJECTIVE: Vital Signs Temperature 97.2 F L 09/08/19 06:00 Pulse Rate 88 09/08/19 08:30 Respiratory Rate 22 H 09/08/19 11:25 Blood Pressure 150/84 09/08/19 06:00 O2 Sat by Pulse Oximetry (%) 98 09/08/19 11:40 GENERAL: The patient is awake, alert, nonverbal, follows commands EYES: PERRLA, EOMI EENT:moist mucous membranes. NECK: Trach in place LUNGS: Breath sounds equal, clear to auscultation bilaterally HEART: tachycardic, regular, S1, S2 ABDOMEN: Soft, nontender, nondistended, Percutaneous G tube in place, clean dry and intact EXTREMITIES: 2+ pulses, warm, well-perfused, no edema. Laboratory Results - last 24 hr 09/07/19 09/08/19 09/08/19 11:00 06:55 06:55 WBC 9.8 RBC 3.48 L Hgb 9.7 L Hct 30.8 L MCV 88.5 MCH 27.9 MCHC 31.5 L RDW 16.5 H Plt Count 306 MPV 10.7 Absolute Neuts (auto) 5.5 Neutrophils % 56.0 Neutrophils % (Manual) 66.3 Band Neutrophils % 0.0 Lymphocytes % 30.1 D Lymphocytes % (Manual) 26.5 D Monocytes % 8.7 Monocytes % (Manual) 5 Eosinophils % 4.4 Eosinophils % (Manual) 2.1 D Basophils % 0.8 Basophils % (Manual) 0.0 Myelocytes % (Man) 0 Promyelocytes % (Man) 0 Blast Cells % (Manual) 0 Nucleated RBC % 0 0 Metamyelocytes 0 D Hypochromia 0 Platelet Estimate Normal Polychromasia 0 Poikilocytosis 0 Anisocytosis 0 Microcytosis 0 Macrocytosis 0 Sodium 149 H Potassium 3.8 Chloride 117 H Carbon Dioxide 23 Anion Gap 9 BUN 14.4 Creatinine 0.4 L Est GFR (CKD-EPI)AfAm 174.63 Est GFR (CKD-EPI)NonAf 150.67 Random Glucose 96 Calcium 9.1 Magnesium 2.1 Total Bilirubin 0.2 AST 60 H ALT 129 H Alkaline Phosphatase 125 H Total Protein 6.3 L Albumin 2.7 L Active Medications Generic Name Dose Route Start Last Admin Trade Name Freq PRN Reason Stop Dose Admin Amino Acids 30 ml 08/09/19 08:00 09/08/19 11:04 Prosource No Carb Liquid Pkt GT 30 ml BID@0800,1730 TIKI Administration Artificial Tears 1 drop 08/08/19 18:05 09/05/19 09:19 Artificial Tears OU 1 drop Q12H PRN Administration DRY EYES Ascorbic Acid 500 mg 08/09/19 10:00 09/08/19 11:08 Vitamin C Oral Solution - GT 500 mg DAILY TIKI Administration Carvedilol 6.25 mg 08/20/19 09:33 09/08/19 11:06 Coreg - PO 6.25 mg BID TIKI Administration Cholecalciferol 800 unit 08/09/19 10:00 09/08/19 11:07 Vitamin D3 - NR 800 unit DAILY TIKI Administration Enoxaparin Sodium 40 mg 08/15/19 10:00 09/08/19 11:04 Lovenox - SQ 40 mg DAILY TIKI Administration Famotidine 20 mg 08/28/19 22:00 09/08/19 11:08 Pepcid NGT 20 mg BID TIKI Administration Lactated Ringer's 1,000 ml in 1,000 mls @ 75 mls/hr 09/06/19 01:15 09/08/19 05:12 Lactated Ringers Solution IV Not Given ASDIR TIKI Lacosamide 200 mg 08/10/19 22:00 09/08/19 11:05 Vimpat Liquid - PO 200 mg BID TIKI Administration Levetiracetam 1,000 mg 08/10/19 22:00 09/08/19 11:04 Keppra Oral Solution - NGT 1,000 mg BID TIKI Administration Nitrofurantoin Macrocrystals 50 mg 09/06/19 12:00 09/08/19 11:25 Macrodantin - GT 50 mg Q6HPO TIKI Administration Nystatin 1 applic 08/21/19 11:15 09/08/19 11:07 Nystop Powder - TP 1 applic BID TIKI Administration Phenobarbital 60 mg 08/10/19 22:00 09/08/19 11:04 Phenobarbital Liquid - NGT 60 mg BID TIKI Administration Potassium Chloride 40 meq 08/08/19 22:00 09/08/19 11:04 Potassium Chloride Oral Liquid GT 40 meq BID TIKI Administration Quetiapine Fumarate 25 mg 08/18/19 10:45 09/08/19 11:06 Seroquel - PO 25 mg DAILY TIKI Administration Topiramate 200 mg 08/08/19 22:00 09/08/19 05:12 Topamax - GT 200 mg TID TIKI Administration Zinc Sulfate 220 mg 08/08/19 22:00 09/08/19 11:05 Orazinc - GT 220 mg BID TIKI Administration ASSESSMENT/PLAN: Patient is a 39 y/o M with PMH Mental Retardation and epilepsy who presented to ED initially with SOB and hypoxia requiring intubation, admitted to hospital for hypoxic respiratory failure 2/2 to covid-19. Hospital course complicated by bacteremia, fungemia, MRSA PNA, now with recurrent fever. #Acute Resp Failure 2/ COVID-19 -s/p trach, convalescent plasma, tocilizumab -on CPAP vent settings. spontaneous breathing trials as tolerated -Pulm on board #Fever -persistent leukocytosis -Sputum Cx (08/21/2019) pos for MRSA, Dapto sensitive and E. coli, carbapenem sensitive -Blood cultures, urine cultures, cxr negative -ID on board. F/u Recs. Presently observing off Abx -Nephro on board #Transaminitis -persistent since admission -as of yet, no clear source identified -per GI, pt will potentially require a biopsy #Tachycardia -c/w Coreg -c/w low-dose seroquel to treat potential contribution of anxiety #Epilepsy -c/w lorazepam prn, levetiracitam, phenobarbitol, lacosamide, topiramate #FEN -not on any standing fluids -electrolytes wnl, routine bmp monitoring -Tube feed Jevity 1.5 #Prophylaxis -Lovenox 40mg sq daily #Disposition -full code - pending SNF placement Visit type - Emergency Visit Emergency Visit: Yes ED Registration Date: 06/22/19 Care time: The patient presented to the Emergency Department on the above date and was hospitalized for further evaluation of their emergent condition. - New Patient This patient is new to me today: No - Critical Care Critical Care patient: No ATTENDING PHYSICIAN STATEMENT I saw and evaluated the patient. I reviewed the resident's note and discussed the case with the resident. I agree with the resident's findings and plan as documented. SUBJECTIVE: OBJECTIVE: ASSESSMENT AND PLAN:
--- NOTE | 2019-09-08 20:42 | PN ---
Progress Note, Physician History of Present Illness: Pt seen and examined at bedside. No great change. - Current Medication List Current Medications: Active Medications Albuterol/Ipratropium (Duoneb -) 1 amp NEB Q6H PRN PRN Reason: SHORTNESS OF BREATH Amino Acids (Prosource No Carb Liquid Pkt) 30 ml GT BID@0800,1730 [facility] Last Admin: 09/08/19 17:02 Dose: 30 ml Documented by: Artificial Tears (Artificial Tears) 1 drop OU Q12H PRN PRN Reason: DRY EYES Last Admin: 09/05/19 09:19 Dose: 1 drop Documented by: Ascorbic Acid (Vitamin C Oral Solution -) 500 mg GT DAILY [facility] Last Admin: 09/08/19 11:08 Dose: 500 mg Documented by: Carvedilol (Coreg -) 6.25 mg PO BID [facility] Last Admin: 09/08/19 11:06 Dose: 6.25 mg Documented by: Cholecalciferol (Vitamin D3 -) 800 unit NR DAILY [facility] Last Admin: 09/08/19 11:07 Dose: 800 unit Documented by: Enoxaparin Sodium (Lovenox -) 40 mg SQ DAILY [facility] Last Admin: 09/08/19 11:04 Dose: 40 mg Documented by: Famotidine (Pepcid) 20 mg NGT BID [facility] Last Admin: 09/08/19 11:08 Dose: 20 mg Documented by: Lacosamide (Vimpat Liquid -) 200 mg PO BID [facility] Last Admin: 09/08/19 11:05 Dose: 200 mg Documented by: Levetiracetam (Keppra Oral Solution -) 1,000 mg NGT BID [facility] Last Admin: 09/08/19 11:04 Dose: 1,000 mg Documented by: Nitrofurantoin Macrocrystals (Macrodantin -) 50 mg GT Q6HPO [facility] Last Admin: 09/08/19 17:02 Dose: 50 mg Documented by: Nystatin (Nystop Powder -) 1 applic TP BID [facility] Last Admin: 09/08/19 11:07 Dose: 1 applic Documented by: Phenobarbital (Phenobarbital Liquid -) 60 mg NGT BID [facility] Last Admin: 09/08/19 11:04 Dose: 60 mg Documented by: Potassium Chloride (Potassium Chloride Oral Liquid) 40 meq GT BID [facility] Last Admin: 09/08/19 11:04 Dose: 40 meq Documented by: Quetiapine Fumarate (Seroquel -) 25 mg PO DAILY [facility] Last Admin: 09/08/19 11:06 Dose: 25 mg Documented by: Topiramate (Topamax -) 200 mg GT TID [facility] Last Admin: 09/08/19 13:53 Dose: 200 mg Documented by: Zinc Sulfate (Orazinc -) 220 mg GT BID [facility] Last Admin: 09/08/19 11:05 Dose: 220 mg Documented by: - Objective Vital Signs: Vital Signs Temperature 99.4 F 09/08/19 18:00 Pulse Rate 102 H 09/08/19 18:00 Respiratory Rate 09/08/19 18:00 Blood Pressure 127/78 09/08/19 18:00 O2 Sat by Pulse Oximetry (%) 99 09/08/19 15:40 Constitutional: Yes: Calm Eyes: Yes: Conjunctiva Clear Cardiovascular: Yes: S1, S2 Respiratory: Yes: Mechanically Ventilated Gastrointestinal: Yes: Soft, Other (peg) Genitourinary: Yes: Incontinence Edema: LLE: Trace, RLE: Trace Neurological: Yes: Pre-Existing Deficit Labs: CBC, BMP 09/08/19 06:55 09/08/19 06:55 INR, PTT INR 1.20 (0.83-1.09) H 08/21/19 11:30 Problem List - Problems (1) Hypernatremia Code(s): E87.0 - HYPEROSMOLALITY AND HYPERNATREMIA (2) Hypokalemia Code(s): E87.6 - HYPOKALEMIA (3) Acute respiratory failure with hypoxia Code(s): J96.01 - ACUTE RESPIRATORY FAILURE WITH HYPOXIA (4) Bacteremia Code(s): R78.81 - BACTEREMIA Assessment/Plan Current Medications Generic Name Dose Route Start Last Admin Trade Name Freq PRN Reason Stop Dose Admin Albuterol/Ipratropium 1 amp 09/08/19 13:10 Duoneb - NEB Q6H PRN SHORTNESS OF BREATH Amino Acids 30 ml 08/09/19 08:00 09/08/19 17:02 Prosource No Carb Liquid Pkt GT 30 ml BID@0800,1730 TIKI Administration Artificial Tears 1 drop 08/08/19 18:05 09/05/19 09:19 Artificial Tears OU 1 drop Q12H PRN Administration DRY EYES Ascorbic Acid 500 mg 08/09/19 10:00 09/08/19 11:08 Vitamin C Oral Solution - GT 500 mg DAILY TIKI Administration Carvedilol 6.25 mg 08/20/19 09:33 09/08/19 11:06 Coreg - PO 6.25 mg BID TIKI Administration Cholecalciferol 800 unit 08/09/19 10:00 09/08/19 11:07 Vitamin D3 - NR 800 unit DAILY TIKI Administration Enoxaparin Sodium 40 mg 08/15/19 10:00 09/08/19 11:04 Lovenox - SQ 40 mg DAILY TIKI Administration Famotidine 20 mg 08/28/19 22:00 09/08/19 11:08 Pepcid NGT 20 mg BID TIKI Administration Lacosamide 200 mg 08/10/19 22:00 09/08/19 11:05 Vimpat Liquid - PO 200 mg BID TIKI Administration Levetiracetam 1,000 mg 08/10/19 22:00 09/08/19 11:04 Keppra Oral Solution - NGT 1,000 mg BID TIKI Administration Nitrofurantoin Macrocrystals 50 mg 09/06/19 12:00 09/08/19 17:02 Macrodantin - GT 50 mg Q6HPO TIKI Administration Nystatin 1 applic 08/21/19 11:15 09/08/19 11:07 Nystop Powder - TP 1 applic BID TIKI Administration Phenobarbital 60 mg 08/10/19 22:00 09/08/19 11:04 Phenobarbital Liquid - NGT 60 mg BID TIKI Administration Potassium Chloride 40 meq 08/08/19 22:00 09/08/19 11:04 Potassium Chloride Oral Liquid GT 40 meq BID TIKI Administration Quetiapine Fumarate 25 mg 08/18/19 10:45 09/08/19 11:06 Seroquel - PO 25 mg DAILY TIKI Administration Topiramate 200 mg 08/08/19 22:00 09/08/19 13:53 Topamax - GT 200 mg TID TIKI Administration Zinc Sulfate 220 mg 08/08/19 22:00 09/08/19 11:05 Orazinc - GT 220 mg BID TIKI Administration Impression 1. hypokalemia 2. hypernatremia 3. resp failure 4. fungemia 5. covid 19 infection 6. ards 7. developemental delay 8. epilepsy 9. bactermia 10. resp acidosis with compensatory met alk Plan - sodium continues to rise - increase free water with feeds - repeat in am - cont vent support - would keep diuretics on hold - trache care - volume status stable
[2019-09-09] MEDS ORDERED: PT OWN MED DRAWER 7, Y5N ONE ×3 (05:22→14:20)
[2019-09-09] MEDS: TOPIRAMATE 200 MG TABLET GT SCH ×3 (05:27→22:10)
[2019-09-09] MEDS: NITROFURANTOIN MACROCRYSTAL 50 MG CAPSULE (FP) GT SCH ×4 (05:27→23:29)
--- NOTE | 2019-09-09 07:23 | PN ---
Progress Note, Physician History of Present Illness: pulmonary alert on cpap with ps,tolerating well - Current Medication List Current Medications: Active Medications Albuterol/Ipratropium (Duoneb -) 1 amp NEB Q6H PRN PRN Reason: SHORTNESS OF BREATH Amino Acids (Prosource No Carb Liquid Pkt) 30 ml GT BID@0800,1730 [facility] Last Admin: 09/08/19 17:02 Dose: 30 ml Documented by: Artificial Tears (Artificial Tears) 1 drop OU Q12H PRN PRN Reason: DRY EYES Last Admin: 09/05/19 09:19 Dose: 1 drop Documented by: Ascorbic Acid (Vitamin C Oral Solution -) 500 mg GT DAILY [facility] Last Admin: 09/08/19 11:08 Dose: 500 mg Documented by: Carvedilol (Coreg -) 6.25 mg PO BID [facility] Last Admin: 09/08/19 22:39 Dose: 6.25 mg Documented by: Cholecalciferol (Vitamin D3 -) 800 unit NR DAILY [facility] Last Admin: 09/08/19 11:07 Dose: 800 unit Documented by: Enoxaparin Sodium (Lovenox -) 40 mg SQ DAILY [facility] Last Admin: 09/08/19 11:04 Dose: 40 mg Documented by: Famotidine (Pepcid) 20 mg NGT BID [facility] Last Admin: 09/08/19 22:40 Dose: 20 mg Documented by: Lacosamide (Vimpat Liquid -) 200 mg PO BID [facility] Last Admin: 09/08/19 22:38 Dose: 200 mg Documented by: Levetiracetam (Keppra Oral Solution -) 1,000 mg NGT BID [facility] Last Admin: 09/08/19 22:38 Dose: 1,000 mg Documented by: Nitrofurantoin Macrocrystals (Macrodantin -) 50 mg GT Q6HPO [facility] Last Admin: 09/09/19 05:27 Dose: 50 mg Documented by: Nystatin (Nystop Powder -) 1 applic TP BID [facility] Last Admin: 09/08/19 22:39 Dose: 1 applic Documented by: Phenobarbital (Phenobarbital Liquid -) 60 mg NGT BID [facility] Last Admin: 09/08/19 22:39 Dose: 60 mg Documented by: Potassium Chloride (Potassium Chloride Oral Liquid) 40 meq GT BID [facility] Last Admin: 09/08/19 22:39 Dose: 40 meq Documented by: Quetiapine Fumarate (Seroquel -) 25 mg PO DAILY [facility] Last Admin: 09/08/19 11:06 Dose: 25 mg Documented by: Topiramate (Topamax -) 200 mg GT TID [facility] Last Admin: 09/09/19 05:27 Dose: 200 mg Documented by: Zinc Sulfate (Orazinc -) 220 mg GT BID [facility] Last Admin: 09/08/19 22:39 Dose: 220 mg Documented by: - Objective Vital Signs: Vital Signs Temperature 97.5 F L 09/09/19 06:00 Pulse Rate 91 H 09/09/19 06:00 Respiratory Rate 09/09/19 06:00 Blood Pressure 134/82 09/09/19 06:00 O2 Sat by Pulse Oximetry (%) 100 09/09/19 04:40 Constitutional: Yes: Well Nourished, Calm Eyes: Yes: WNL HENT: Yes: WNL Neck: Yes: Supple (trach) Cardiovascular: Yes: Regular Rate and Rhythm, S1, S2 Respiratory: Yes: Rhonchi (few rhonchi) Gastrointestinal: Yes: Normal Bowel Sounds, Soft Extremities: Yes: WNL Edema: No Labs: CBC, BMP 09/08/19 06:55 09/08/19 06:55 INR, PTT INR 1.20 (0.83-1.09) H 08/21/19 11:30 Problem List - Problems (1) COVID-19 Code(s): U07.1 - COVID POSITIVE (2) COVID-19 Code(s): U07.1 - COVID POSITIVE (3) Acute respiratory failure with hypoxia Code(s): J96.01 - ACUTE RESPIRATORY FAILURE WITH HYPOXIA (4) Seizure disorder Code(s): G40.909 - EPILEPSY, UNSP, NOT INTRACTABLE, WITHOUT STATUS EPILEPTICUS (5) Status epilepticus Code(s): G40.901 - EPILEPSY, UNSP, NOT INTRACTABLE, WITH STATUS EPILEPTICUS Assessment/Plan ASSESSMENT AND PLAN: Acute Hypoxic and Hypercapneic Respiratory Failure improving COVID19 Pneumonia E Coli Pneumonia Fungenmia Bacteremia Septic Shock Seizure Disorder Mental Retardation ABNORMAL LFTS - Ativan PRN - antiepileptics - titrate 02 - trach collar as tolerated - DVT/GI prophylaxis - inhaled bronchodilators - PMV as tolerated - po as tolerated Dr MARTINEZ
--- NOTE | 2019-09-09 07:45 | PN ---
Teaching Attending Note Name of Resident: Kae Pack ATTENDING PHYSICIAN STATEMENT I saw and evaluated the patient. I reviewed the resident's note and discussed the case with the resident. I agree with the resident's findings and plan as documented. SUBJECTIVE: Remained stable OBJECTIVE: Vital Signs Temperature 97.5 F L 09/09/19 06:00 Pulse Rate 91 H 09/09/19 06:00 Respiratory Rate 20 09/09/19 06:00 Blood Pressure 134/82 09/09/19 06:00 O2 Sat by Pulse Oximetry (%) 100 09/09/19 04:40 General: Young man status post trach not in distress HEENT mucous membranes moist, no anemia, no jaundice, PERRLA, no nystagmus Neck: Status post trach Chest: bilateral basal rales. CVS: S1-S2 no murmur/gallop/rub Abdomen: PEG tube at place nondistended, soft, bowel sounds present. 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 CBC, BMP 09/09/19 07:40 09/09/19 07:40 Active Medications Albuterol/Ipratropium (Duoneb -) 1 amp NEB Q6H PRN PRN Reason: SHORTNESS OF BREATH Amino Acids (Prosource No Carb Liquid Pkt) 30 ml GT BID@0800,1730 [facility] Last Admin: 09/08/19 17:02 Dose: 30 ml Documented by: Artificial Tears (Artificial Tears) 1 drop OU Q12H PRN PRN Reason: DRY EYES Last Admin: 09/05/19 09:19 Dose: 1 drop Documented by: Ascorbic Acid (Vitamin C Oral Solution -) 500 mg GT DAILY [facility] Last Admin: 09/08/19 11:08 Dose: 500 mg Documented by: Carvedilol (Coreg -) 6.25 mg PO BID [facility] Last Admin: 09/08/19 22:39 Dose: 6.25 mg Documented by: Cholecalciferol (Vitamin D3 -) 800 unit NR DAILY [facility] Last Admin: 09/08/19 11:07 Dose: 800 unit Documented by: Enoxaparin Sodium (Lovenox -) 40 mg SQ DAILY [facility] Last Admin: 09/08/19 11:04 Dose: 40 mg Documented by: Famotidine (Pepcid) 20 mg NGT BID [facility] Last Admin: 09/08/19 22:40 Dose: 20 mg Documented by: Lacosamide (Vimpat Liquid -) 200 mg PO BID [facility] Last Admin: 09/08/19 22:38 Dose: 200 mg Documented by: Levetiracetam (Keppra Oral Solution -) 1,000 mg NGT BID [facility] Last Admin: 09/08/19 22:38 Dose: 1,000 mg Documented by: Nitrofurantoin Macrocrystals (Macrodantin -) 50 mg GT Q6HPO [facility] Last Admin: 09/09/19 05:27 Dose: 50 mg Documented by: Nystatin (Nystop Powder -) 1 applic TP BID [facility] Last Admin: 09/08/19 22:39 Dose: 1 applic Documented by: Phenobarbital (Phenobarbital Liquid -) 60 mg NGT BID [facility] Last Admin: 09/08/19 22:39 Dose: 60 mg Documented by: Potassium Chloride (Potassium Chloride Oral Liquid) 40 meq GT BID [facility] Last Admin: 09/08/19 22:39 Dose: 40 meq Documented by: Quetiapine Fumarate (Seroquel -) 25 mg PO DAILY [facility] Last Admin: 09/08/19 11:06 Dose: 25 mg Documented by: Topiramate (Topamax -) 200 mg GT TID [facility] Last Admin: 09/09/19 05:27 Dose: 200 mg Documented by: Zinc Sulfate (Orazinc -) 220 mg GT BID [facility] Last Admin: 09/08/19 22:39 Dose: 220 mg Documented by: ASSESSMENT AND PLAN:39 years old male mentally challenged, seizure disorders lives at home admitted with hypoxic respiratory failure on June 22, 2019 secondary to COVID-19, multiple pulmonary infection and bacteremia treated for fungemia, MRSA, ESBL E. coli,, persistent staph epi bacteremia normal echocardiogram completed vancomycin as per ID total 6 weeks of Vanco , now off antibiotic. Active issues 1. Hypoxic respiratory failure: due to COVID-19 pneumonia status post intubation and extubation now trach, vent dependent, vent management as per pulmonary consult. 2. H CAP: Completed antibiotic 3. MRSA bacteremia: Completed antibiotic for 6 weeks now afebrile cultures are negative will stop 4. Fungemia completed antibiotic 5. Seizure disorders: Seizure-free on current medications 6. Respiratory insufficiency: Continue vent and bronchodilators 7. Anemia H&H is stable Patient is hemodynamically stable will do well the next lab work-up. Disposition: Patient has no insurance now vent dependent on pediatric social worker is working for safe discharge to a long-term acute care. Case discussed with the resident. Problem List - Problems (1) Acute respiratory failure with hypoxia Code(s): J96.01 - ACUTE RESPIRATORY FAILURE WITH HYPOXIA (2) Bacteremia Code(s): R78.81 - BACTEREMIA (3) Fever Code(s): R50.9 - FEVER, UNSPECIFIED (4) Seizure disorder Code(s): G40.909 - EPILEPSY, UNSP, NOT INTRACTABLE, WITHOUT STATUS EPILEPTICUS (5) Diarrhea Code(s): R19.7 - DIARRHEA, UNSPECIFIED (6) DVT prophylaxis Code(s): Z29.9 - ENCOUNTER FOR PROPHYLACTIC MEASURES, UNSPECIFIED (7) Pneumonia due to COVID-19 virus Code(s): U07.1 - COVID POSITIVE; J12.89 - OTHER VIRAL PNEUMONIA (8) Tachycardia Code(s): R00.0 - TACHYCARDIA, UNSPECIFIED
[2019-09-09 08:52] LABS: BASO % 0.6 % (0-2.0); EOS % 6.3 % (0-4.5); HEMATOCRIT 30.6 % (35.4-49); HEMOGLOBIN 9.5 GM/dL (11.7-16.9); LYMPH % 31.8 % (8-40); MCH 27.1 pg (25.7-33.7); MCHC 31.1 g/dl (32.0-35.9); MEAN CELL VOLUME 87.3 fl (80-96); MEAN PLT VOLUME 10.1 fl (7.5-11.1); MONO % 6.4 % (3.8-10.2); NEUT % 54.9 % (42.8-82.8); PLATELET COUNT 295 K/MM3 (134-434); RBC 3.51 M/mm3 (4.00-5.60); RDW 16.6 % (11.9-15.9); WHITE BLOOD COUNT 9.8 K/mm3 (4.0-10.0)
[2019-09-09 09:12] LABS: ALBUMIN 2.6 g/dl (3.4-5.0); BILIRUBIN,TOTAL 0.2 mg/dL (0.2-1); BLOOD UREA NITROGEN 13.3 mg/dL (7-18); CALCIUM 9.1 mg/dL (8.5-10.1); CREATININE 0.4 mg/dL (0.55-1.3); MAGNESIUM 2.1 mg/dL (1.8-2.4); POTASSIUM 3.6 mmol/L (3.5-5.1)
--- NOTE | 2019-09-09 09:22 | PN ---
Physical Exam: SUBJECTIVE: Patient seen and examined OBJECTIVE: Vital Signs Temperature 97.5 F L 09/09/19 06:00 Pulse Rate 91 H 09/09/19 06:00 Respiratory Rate 20 09/09/19 06:00 Blood Pressure 134/82 09/09/19 06:00 O2 Sat by Pulse Oximetry (%) 100 09/09/19 04:40 GENERAL: The patient is awake, alert, nonverbal, follows commands EYES: PERRLA, EOMI EENT:moist mucous membranes. NECK: Trach in place LUNGS: Breath sounds equal, clear to auscultation bilaterally HEART: tachycardic, regular, S1, S2 ABDOMEN: Soft, nontender, nondistended, Percutaneous G tube in place, clean dry and intact EXTREMITIES: 2+ pulses, warm, well-perfused, no edema. Laboratory Results - last 24 hr 09/09/19 07:40 Sodium 145 Potassium 3.6 Chloride 114 H Carbon Dioxide 22 Anion Gap 10 BUN 13.3 Creatinine 0.4 L Est GFR (CKD-EPI)AfAm 174.63 Est GFR (CKD-EPI)NonAf 150.67 Random Glucose 120 H Calcium 9.1 Magnesium 2.1 Total Bilirubin 0.2 AST 44 H ALT 108 H Alkaline Phosphatase 122 H Total Protein 6.0 L Albumin 2.6 L Active Medications Generic Name Dose Route Start Last Admin Trade Name Freq PRN Reason Stop Dose Admin Albuterol/Ipratropium 1 amp 09/08/19 13:10 Duoneb - NEB Q6H PRN SHORTNESS OF BREATH Amino Acids 30 ml 08/09/19 08:00 09/08/19 17:02 Prosource No Carb Liquid Pkt GT 30 ml BID@0800,1730 TIKI Administration Artificial Tears 1 drop 08/08/19 18:05 09/05/19 09:19 Artificial Tears OU 1 drop Q12H PRN Administration DRY EYES Ascorbic Acid 500 mg 08/09/19 10:00 09/08/19 11:08 Vitamin C Oral Solution - GT 500 mg DAILY TIKI Administration Carvedilol 6.25 mg 08/20/19 09:33 09/08/19 22:39 Coreg - PO 6.25 mg BID TIKI Administration Cholecalciferol 800 unit 08/09/19 10:00 09/08/19 11:07 Vitamin D3 - NR 800 unit DAILY TIKI Administration Enoxaparin Sodium 40 mg 08/15/19 10:00 09/08/19 11:04 Lovenox - SQ 40 mg DAILY TIKI Administration Famotidine 20 mg 08/28/19 22:00 09/08/19 22:40 Pepcid NGT 20 mg BID TIKI Administration Lacosamide 200 mg 08/10/19 22:00 09/08/19 22:38 Vimpat Liquid - PO 200 mg BID TIKI Administration Levetiracetam 1,000 mg 08/10/19 22:00 09/08/19 22:38 Keppra Oral Solution - NGT 1,000 mg BID TIKI Administration Nitrofurantoin Macrocrystals 50 mg 09/06/19 12:00 09/09/19 05:27 Macrodantin - GT 50 mg Q6HPO TIKI Administration Nystatin 1 applic 08/21/19 11:15 09/08/19 22:39 Nystop Powder - TP 1 applic BID TIKI Administration Phenobarbital 60 mg 08/10/19 22:00 09/08/19 22:39 Phenobarbital Liquid - NGT 60 mg BID TIKI Administration Potassium Chloride 40 meq 08/08/19 22:00 09/08/19 22:39 Potassium Chloride Oral Liquid GT 40 meq BID TIKI Administration Quetiapine Fumarate 25 mg 08/18/19 10:45 09/08/19 11:06 Seroquel - PO 25 mg DAILY TIKI Administration Topiramate 200 mg 08/08/19 22:00 09/09/19 05:27 Topamax - GT 200 mg TID TIKI Administration Zinc Sulfate 220 mg 08/08/19 22:00 09/08/19 22:39 Orazinc - GT 220 mg BID TIKI Administration ASSESSMENT/PLAN: Patient is a 39 y/o M with H Mental Retardation and epilepsy who presented to ED initially with SOB and hypoxia requiring intubation, admitted to hospital for hypoxic respiratory failure 2/2 to covid-19. Hospital course complicated by bacteremia, fungemia, MRSA PNA, now with recurrent fever. #Acute Resp Failure 2/2 COVID-19 -s/p trach, convalescent plasma, tocilizumab -on CPAP vent settings. spontaneous breathing trials as tolerated -Pulm on board #Fever -persistent leukocytosis -Sputum Cx (08/21/2019) pos for MRSA, Dapto sensitive and E. coli, carbapenem sensitive -Blood cultures, urine cultures, cxr negative -ID on board. F/u Recs. Presently observing off Abx -Nephro on board #Transaminitis -persistent since admission -as of yet, no clear source identified -per GI, pt will potentially require a biopsy #Hypernatremia - sodium rising - increase free water with feeds - feeds held for a few hours yesterday while patient was on passy alejandro valve - Nephrology (Dr. Lockhart) consulted. REcommendations appreciated. #Tachycardia -c/w Coreg -c/w low-dose seroquel to treat potential contribution of anxiety #Epilepsy -c/w lorazepam prn, levetiracitam, phenobarbitol, lacosamide, topiramate #FEN -not on any standing fluids -electrolytes wnl, routine bmp monitoring -Tube feed Jevity 1.5 #Prophylaxis -Lovenox 40mg sq daily #Disposition -full code - pending SNF placement Visit type - Emergency Visit Emergency Visit: Yes ED Registration Date: 06/22/19 Care time: The patient presented to the Emergency Department on the above date and was hospitalized for further evaluation of their emergent condition. - New Patient This patient is new to me today: No - Critical Care Critical Care patient: No ATTENDING PHYSICIAN STATEMENT I saw and evaluated the patient. I reviewed the resident's note and discussed the case with the resident. I agree with the resident's findings and plan as documented. SUBJECTIVE: OBJECTIVE: ASSESSMENT AND PLAN:
--- NOTE | 2019-09-09 10:17 | PN ---
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 Received TF without difficulty. Pt is Azeri speaking, verbal but limited per baseline, asks for water. Good voicing with pmv. Suggest repeat MBS Vent weaning, per Pulmonary/RT
[2019-09-09] MEDS: CHOLECALCIFEROL (VIT D3) 400 UNIT (10 MCG) TABLET NR SCH (11:12)
[2019-09-09] MEDS: FAMOTIDINE 40 MG/5 ML ORAL SUSPENSION NGT SCH ×2 (11:12→22:11)
[2019-09-09] MEDS: POTASSIUM CHLORIDE ORAL LIQUID 20 MEQ/15 ML GT SCH ×2 (11:13→22:10)
[2019-09-09] MEDS: PHENobarbital 20 MG/5 ML UNIT-DOSE CUP NGT SCH ×2 (11:13→22:09)
[2019-09-09] MEDS: ASCORBIC ACID 500 MG/5 ML UNIT DOSE CUP GT SCH (11:13)
[2019-09-09] MEDS: levETIRAcetam 500 MG/5 ML ORAL SOLUTION (UNIT-DOSE CUPS) NGT SCH ×2 (11:14→22:09)
[2019-09-09] MEDS: AMINO ACIDS/PROTEIN HYDROLYS 30 ML LIQUID.PKT GT SCH ×2 (11:14→18:15)
[2019-09-09] MEDS: Lacosamide 50 MG/5 ML ORAL SOLUTION UNIT CUPS PO SCH ×2 (11:14→22:10)
[2019-09-09] MEDS: ENOXAPARIN NA (PORCINE) 40 MG/0.4 ML DISP.SYRIN SQ SCH (11:15)
[2019-09-09] MEDS: CARVEDILOL 6.25 MG TABLET (FP) PO SCH ×2 (11:15→22:09)
[2019-09-09] MEDS: NYSTATIN POWDER 100,000 UNITS/GM - 15 GM TOPICAL POWDER TP SCH ×2 (11:15→22:10)
[2019-09-09] MEDS: ZINC SULFATE 220 MG CAPSULE (FP) GT SCH ×2 (11:15→22:09)
[2019-09-09] MEDS: QUEtiapine FUMARATE 25 MG TABLET PO SCH (11:16)
--- NOTE | 2019-09-09 17:57 | PN ---
Progress Note, Physician History of Present Illness: Pt seen and examined at bedside. No great change in status. Pt going for swallow eval today. - Current Medication List Current Medications: Active Medications Albuterol/Ipratropium (Duoneb -) 1 amp NEB Q6H PRN PRN Reason: SHORTNESS OF BREATH Amino Acids (Prosource No Carb Liquid Pkt) 30 ml GT BID@0800,1730 [facility] Last Admin: 09/09/19 11:14 Dose: 30 ml Documented by: Artificial Tears (Artificial Tears) 1 drop OU Q12H PRN PRN Reason: DRY EYES Last Admin: 09/05/19 09:19 Dose: 1 drop Documented by: Ascorbic Acid (Vitamin C Oral Solution -) 500 mg GT DAILY [facility] Last Admin: 09/09/19 11:13 Dose: 500 mg Documented by: Carvedilol (Coreg -) 6.25 mg PO BID [facility] Last Admin: 09/09/19 11:15 Dose: 6.25 mg Documented by: Cholecalciferol (Vitamin D3 -) 800 unit NR DAILY [facility] Last Admin: 09/09/19 11:12 Dose: 800 unit Documented by: Enoxaparin Sodium (Lovenox -) 40 mg SQ DAILY [facility] Last Admin: 09/09/19 11:15 Dose: 40 mg Documented by: Famotidine (Pepcid) 20 mg NGT BID [facility] Last Admin: 09/09/19 11:12 Dose: 20 mg Documented by: Lacosamide (Vimpat Liquid -) 200 mg PO BID [facility] Last Admin: 09/09/19 11:14 Dose: 200 mg Documented by: Levetiracetam (Keppra Oral Solution -) 1,000 mg NGT BID [facility] Last Admin: 09/09/19 11:14 Dose: 1,000 mg Documented by: Nitrofurantoin Macrocrystals (Macrodantin -) 50 mg GT Q6HPO [facility] Last Admin: 09/09/19 12:31 Dose: 50 mg Documented by: Nystatin (Nystop Powder -) 1 applic TP BID [facility] Last Admin: 09/09/19 11:15 Dose: 1 applic Documented by: Phenobarbital (Phenobarbital Liquid -) 60 mg NGT BID [facility] Last Admin: 09/09/19 11:13 Dose: 60 mg Documented by: Potassium Chloride (Potassium Chloride Oral Liquid) 40 meq GT BID [facility] Last Admin: 09/09/19 11:13 Dose: 40 meq Documented by: Quetiapine Fumarate (Seroquel -) 25 mg PO DAILY [facility] Last Admin: 09/09/19 11:16 Dose: 25 mg Documented by: Topiramate (Topamax -) 200 mg GT TID [facility] Last Admin: 09/09/19 14:21 Dose: 200 mg Documented by: Zinc Sulfate (Orazinc -) 220 mg GT BID [facility] Last Admin: 09/09/19 11:15 Dose: 220 mg Documented by: - Objective Vital Signs: Vital Signs Temperature 98.7 F 09/09/19 14:00 Pulse Rate 94 H 09/09/19 14:00 Respiratory Rate 21 H 09/09/19 16:55 Blood Pressure 140/85 09/09/19 14:00 O2 Sat by Pulse Oximetry (%) 99 09/09/19 14:19 Constitutional: Yes: Calm Eyes: Yes: Conjunctiva Clear Neck: Yes: Other (trache) Cardiovascular: Yes: S1, S2 Respiratory: Yes: Mechanically Ventilated Gastrointestinal: Yes: Soft Genitourinary: Yes: Incontinence Edema: No Neurological: Yes: Other (awake) Labs: CBC, BMP 09/09/19 07:40 09/09/19 07:40 INR, PTT INR 1.20 (0.83-1.09) H 08/21/19 11:30 Problem List - Problems (1) Hypernatremia Code(s): E87.0 - HYPEROSMOLALITY AND HYPERNATREMIA (2) Hypokalemia Code(s): E87.6 - HYPOKALEMIA (3) Acute respiratory failure with hypoxia Code(s): J96.01 - ACUTE RESPIRATORY FAILURE WITH HYPOXIA (4) Bacteremia Code(s): R78.81 - BACTEREMIA Assessment/Plan Current Medications Generic Name Dose Route Start Last Admin Trade Name Freq PRN Reason Stop Dose Admin Albuterol/Ipratropium 1 amp 09/08/19 13:10 Duoneb - NEB Q6H PRN SHORTNESS OF BREATH Amino Acids 30 ml 08/09/19 08:00 09/09/19 11:14 Prosource No Carb Liquid Pkt GT 30 ml BID@0800,1730 [facility] Administration Artificial Tears 1 drop 08/08/19 18:05 09/05/19 09:19 Artificial Tears OU 1 drop Q12H PRN Administration DRY EYES Ascorbic Acid 500 mg 08/09/19 10:00 09/09/19 11:13 Vitamin C Oral Solution - GT 500 mg DAILY TIKI Administration Carvedilol 6.25 mg 08/20/19 09:33 09/09/19 11:15 Coreg - PO 6.25 mg BID TIKI Administration Cholecalciferol 800 unit 08/09/19 10:00 09/09/19 11:12 Vitamin D3 - NR 800 unit DAILY TIKI Administration Enoxaparin Sodium 40 mg 08/15/19 10:00 09/09/19 11:15 Lovenox - SQ 40 mg DAILY TIKI Administration Famotidine 20 mg 08/28/19 22:00 09/09/19 11:12 Pepcid NGT 20 mg BID TIKI Administration Lacosamide 200 mg 08/10/19 22:00 09/09/19 11:14 Vimpat Liquid - PO 200 mg BID TIKI Administration Levetiracetam 1,000 mg 08/10/19 22:00 09/09/19 11:14 Keppra Oral Solution - NGT 1,000 mg BID TIKI Administration Nitrofurantoin Macrocrystals 50 mg 09/06/19 12:00 09/09/19 12:31 Macrodantin - GT 50 mg Q6HPO TIKI Administration Nystatin 1 applic 08/21/19 11:15 09/09/19 11:15 Nystop Powder - TP 1 applic BID TIKI Administration Phenobarbital 60 mg 08/10/19 22:00 09/09/19 11:13 Phenobarbital Liquid - NGT 60 mg BID TIKI Administration Potassium Chloride 40 meq 08/08/19 22:00 09/09/19 11:13 Potassium Chloride Oral Liquid GT 40 meq BID TIKI Administration Quetiapine Fumarate 25 mg 08/18/19 10:45 09/09/19 11:16 Seroquel - PO 25 mg DAILY TIKI Administration Topiramate 200 mg 08/08/19 22:00 09/09/19 14:21 Topamax - GT 200 mg TID TKII Administration Zinc Sulfate 220 mg 08/08/19 22:00 09/09/19 11:15 Orazinc - GT 220 mg BID TIKI Administration Impression 1. hypokalemia 2. hypernatremia 3. resp failure 4. fungemia 5. covid 19 infection 6. ards 7. developemental delay 8. epilepsy 9. bactermia 10. resp acidosis with compensatory met alk Plan - sodium improving - cont free water with feeds - repeat labs in am - will see again tomorrow - cont vent support - would keep diuretics on hold - trache care - volume status stable
[2019-09-10] MEDS: TOPIRAMATE 200 MG TABLET GT SCH ×3 (05:16→23:47)
[2019-09-10] MEDS: NITROFURANTOIN MACROCRYSTAL 50 MG CAPSULE (FP) GT SCH ×4 (05:16→23:46)
--- NOTE | 2019-09-10 07:56 | PN ---
Progress Note, Physician History of Present Illness: pulmonary awake on trach collar tolerating well - Current Medication List Current Medications: Active Medications Albuterol/Ipratropium (Duoneb -) 1 amp NEB Q6H PRN PRN Reason: SHORTNESS OF BREATH Amino Acids (Prosource No Carb Liquid Pkt) 30 ml GT BID@0800,1730 [facility] Last Admin: 09/09/19 18:15 Dose: 30 ml Documented by: Artificial Tears (Artificial Tears) 1 drop OU Q12H PRN PRN Reason: DRY EYES Last Admin: 09/05/19 09:19 Dose: 1 drop Documented by: Ascorbic Acid (Vitamin C Oral Solution -) 500 mg GT DAILY [facility] Last Admin: 09/09/19 11:13 Dose: 500 mg Documented by: Carvedilol (Coreg -) 6.25 mg PO BID [facility] Last Admin: 09/09/19 22:09 Dose: 6.25 mg Documented by: Cholecalciferol (Vitamin D3 -) 800 unit NR DAILY [facility] Last Admin: 09/09/19 11:12 Dose: 800 unit Documented by: Enoxaparin Sodium (Lovenox -) 40 mg SQ DAILY [facility] Last Admin: 09/09/19 11:15 Dose: 40 mg Documented by: Famotidine (Pepcid) 20 mg NGT BID [facility] Last Admin: 09/09/19 22:11 Dose: 20 mg Documented by: Lacosamide (Vimpat Liquid -) 200 mg PO BID [facility] Last Admin: 09/09/19 22:10 Dose: 200 mg Documented by: Levetiracetam (Keppra Oral Solution -) 1,000 mg NGT BID [facility] Last Admin: 09/09/19 22:09 Dose: 1,000 mg Documented by: Nitrofurantoin Macrocrystals (Macrodantin -) 50 mg GT Q6HPO [facility] Last Admin: 09/10/19 05:16 Dose: 50 mg Documented by: Nystatin (Nystop Powder -) 1 applic TP BID [facility] Last Admin: 09/09/19 22:10 Dose: 1 applic Documented by: Phenobarbital (Phenobarbital Liquid -) 60 mg NGT BID [facility] Last Admin: 09/09/19 22:09 Dose: 60 mg Documented by: Potassium Chloride (Potassium Chloride Oral Liquid) 40 meq GT BID [facility] Last Admin: 07/08/20 22:10 Dose: 40 meq Documented by: Quetiapine Fumarate (Seroquel -) 25 mg PO DAILY [facility] Last Admin: 09/09/19 11:16 Dose: 25 mg Documented by: Topiramate (Topamax -) 200 mg GT TID [facility] Last Admin: 09/10/19 05:16 Dose: 200 mg Documented by: Zinc Sulfate (Orazinc -) 220 mg GT BID [facility] Last Admin: 09/09/19 22:09 Dose: 220 mg Documented by: - Objective Vital Signs: Vital Signs Temperature 97.7 F 09/10/19 06:00 Pulse Rate 86 09/10/19 06:00 Respiratory Rate 20 09/10/19 06:00 Blood Pressure 130/86 09/10/19 06:00 O2 Sat by Pulse Oximetry (%) 100 09/10/19 04:34 Constitutional: Yes: Well Nourished, Calm Eyes: Yes: WNL HENT: Yes: WNL Neck: Yes: Supple (trach) Cardiovascular: Yes: Regular Rate and Rhythm, S1, S2 Respiratory: Yes: Rhonchi (few rhonchi) Gastrointestinal: Yes: Normal Bowel Sounds, Soft Extremities: Yes: WNL Edema: No Labs: CBC, BMP Problem List - Problems (1) COVID-19 Code(s): U07.1 - COVID POSITIVE (2) COVID-19 Code(s): U07.1 - COVID POSITIVE (3) Acute respiratory failure with hypoxia Code(s): J96.01 - ACUTE RESPIRATORY FAILURE WITH HYPOXIA (4) Seizure disorder Code(s): G40.909 - EPILEPSY, UNSP, NOT INTRACTABLE, WITHOUT STATUS EPILEPTICUS (5) Status epilepticus Code(s): G40.901 - EPILEPSY, UNSP, NOT INTRACTABLE, WITH STATUS EPILEPTICUS Assessment/Plan ASSESSMENT AND PLAN: Acute Hypoxic and Hypercapneic Respiratory Failure improving COVID19 Pneumonia E Coli Pneumonia Fungenmia Bacteremia Septic Shock Seizure Disorder Mental Retardation ABNORMAL LFTS - Ativan PRN - antiepileptics - titrate 02 - trach collar as tolerated - DVT/GI prophylaxis - inhaled bronchodilators - PMV as tolerated - po as tolerated Dr MARTINEZ
--- NOTE | 2019-09-10 08:02 | PN ---
Teaching Attending Note Name of Resident: Kae Pack ATTENDING PHYSICIAN STATEMENT I saw and evaluated the patient. I reviewed the resident's note and discussed the case with the resident. I agree with the resident's findings and plan as documented. SUBJECTIVE: Demented baseline afebrile OBJECTIVE: Vital Signs Temperature 97.7 F 09/10/19 06:00 Pulse Rate 86 09/10/19 06:00 Respiratory Rate 20 09/10/19 06:00 Blood Pressure 130/86 09/10/19 06:00 O2 Sat by Pulse Oximetry (%) 100 09/10/19 04:34 General: Young man status post trach not in distress HEENT mucous membranes moist, no anemia, no jaundice, PERRLA, no nystagmus Neck: Status post trach Chest: bilateral basal rales. CVS: S1-S2 no murmur/gallop/rub Abdomen: PEG tube at place nondistended, soft, bowel sounds present. 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 CBC, BMP 09/10/19 07:20 09/10/19 07:20 Active Medications Albuterol/Ipratropium (Duoneb -) 1 amp NEB Q6H PRN PRN Reason: SHORTNESS OF BREATH Amino Acids (Prosource No Carb Liquid Pkt) 30 ml GT BID@0800,1730 [facility] Last Admin: 09/09/19 18:15 Dose: 30 ml Documented by: Artificial Tears (Artificial Tears) 1 drop OU Q12H PRN PRN Reason: DRY EYES Last Admin: 09/05/19 09:19 Dose: 1 drop Documented by: Ascorbic Acid (Vitamin C Oral Solution -) 500 mg GT DAILY [facility] Last Admin: 09/09/19 11:13 Dose: 500 mg Documented by: Carvedilol (Coreg -) 6.25 mg PO BID [facility] Last Admin: 09/09/19 22:09 Dose: 6.25 mg Documented by: Cholecalciferol (Vitamin D3 -) 800 unit NR DAILY [facility] Last Admin: 09/09/19 11:12 Dose: 800 unit Documented by: Enoxaparin Sodium (Lovenox -) 40 mg SQ DAILY [facility] Last Admin: 09/09/19 11:15 Dose: 40 mg Documented by: Famotidine (Pepcid) 20 mg NGT BID [facility] Last Admin: 09/09/19 22:11 Dose: 20 mg Documented by: Lacosamide (Vimpat Liquid -) 200 mg PO BID [facility] Last Admin: 09/09/19 22:10 Dose: 200 mg Documented by: Levetiracetam (Keppra Oral Solution -) 1,000 mg NGT BID [facility] Last Admin: 09/09/19 22:09 Dose: 1,000 mg Documented by: Nitrofurantoin Macrocrystals (Macrodantin -) 50 mg GT Q6HPO [facility] Last Admin: 09/10/19 05:16 Dose: 50 mg Documented by: Nystatin (Nystop Powder -) 1 applic TP BID [facility] Last Admin: 09/09/19 22:10 Dose: 1 applic Documented by: Phenobarbital (Phenobarbital Liquid -) 60 mg NGT BID [facility] Last Admin: 09/09/19 22:09 Dose: 60 mg Documented by: Potassium Chloride (Potassium Chloride Oral Liquid) 40 meq GT BID [facility] Last Admin: 09/09/19 22:10 Dose: 40 meq Documented by: Quetiapine Fumarate (Seroquel -) 25 mg PO DAILY [facility] Last Admin: 09/09/19 11:16 Dose: 25 mg Documented by: Topiramate (Topamax -) 200 mg GT TID [facility] Last Admin: 09/10/19 05:16 Dose: 200 mg Documented by: Zinc Sulfate (Orazinc -) 220 mg GT BID [facility] Last Admin: 09/09/19 22:09 Dose: 220 mg Documented by: ASSESSMENT AND PLAN:39 years old male mentally challenged, seizure disorders lives at home admitted with hypoxic respiratory failure on June 22, 2019 secondary to COVID-19, multiple pulmonary infection and bacteremia treated for fungemia, MRSA, ESBL E. coli,, persistent staph epi bacteremia normal echocardiogram completed vancomycin total 6 weeks , now off antibiotic. Active issues 1. Hypoxic respiratory failure: due to COVID-19 pneumonia status post intubation and extubation now trach, vent dependent, hypoxia management as per pulmonary consult. 2. H CAP: Completed antibiotic 3. MRSA bacteremia: Completed antibiotic for 6 weeks now afebrile cultures are negative will stop 4. Fungemia completed antibiotic 5. Seizure disorders: Seizure-free on current medications 6. Respiratory insufficiency: Continue vent and bronchodilators 7. Anemia H&H is stable Patient is hemodynamically stable will do well the next lab work-up. Disposition: Patient has no insurance now vent dependent on social services technician is working for safe discharge to a long-term acute care. Case discussed with the resident. Problem List - Problems (1) Acute respiratory failure with hypoxia Code(s): J96.01 - ACUTE RESPIRATORY FAILURE WITH HYPOXIA (2) Bacteremia Code(s): R78.81 - BACTEREMIA (3) Fever Code(s): R50.9 - FEVER, UNSPECIFIED (4) Seizure disorder Code(s): G40.909 - EPILEPSY, UNSP, NOT INTRACTABLE, WITHOUT STATUS EPILEPTICUS (5) Diarrhea Code(s): R19.7 - DIARRHEA, UNSPECIFIED (6) DVT prophylaxis Code(s): Z29.9 - ENCOUNTER FOR PROPHYLACTIC MEASURES, UNSPECIFIED (7) Pneumonia due to COVID-19 virus Code(s): U07.1 - COVID POSITIVE; J12.89 - OTHER VIRAL PNEUMONIA (8) Tachycardia Code(s): R00.0 - TACHYCARDIA, UNSPECIFIED
[2019-09-10 08:21] LABS: BASO % 0.7 % (0-2.0); HEMATOCRIT 31.3 % (35.4-49); HEMOGLOBIN 9.8 GM/dL (11.7-16.9); LYMPH % 30.3 % (8-40); MCH 27.3 pg (25.7-33.7); MCHC 31.1 g/dl (32.0-35.9); MEAN CELL VOLUME 87.9 fl (80-96); MEAN PLT VOLUME 10.7 fl (7.5-11.1); MONO % 6.5 % (3.8-10.2); NEUT % 55.5 % (42.8-82.8); PLATELET COUNT 274 K/MM3 (134-434); RBC 3.57 M/mm3 (4.00-5.60); RDW 16.5 % (11.9-15.9); WHITE BLOOD COUNT 10.4 K/mm3 (4.0-10.0)
[2019-09-10 08:40] LABS: ALBUMIN 2.5 g/dl (3.4-5.0); BILIRUBIN,TOTAL 0.2 mg/dL (0.2-1); BLOOD UREA NITROGEN 12.5 mg/dL (7-18); CALCIUM 8.9 mg/dL (8.5-10.1); CREATININE 0.4 mg/dL (0.55-1.3); POTASSIUM 3.5 mmol/L (3.5-5.1)
[2019-09-10] MEDS ORDERED: PT OWN MED DRAWER 7, Y5N ONE ×2 (09:06→14:08)
[2019-09-10] MEDS: AMINO ACIDS/PROTEIN HYDROLYS 30 ML LIQUID.PKT GT SCH ×2 (09:10→17:09)
[2019-09-10] MEDS: CARVEDILOL 6.25 MG TABLET (FP) PO SCH ×2 (09:11→23:46)
[2019-09-10] MEDS: CHOLECALCIFEROL (VIT D3) 400 UNIT (10 MCG) TABLET NR SCH (09:11)
[2019-09-10] MEDS: ZINC SULFATE 220 MG CAPSULE (FP) GT SCH ×2 (09:11→23:46)
[2019-09-10] MEDS: ASCORBIC ACID 500 MG/5 ML UNIT DOSE CUP GT SCH (09:11)
[2019-09-10] MEDS: Lacosamide 50 MG/5 ML ORAL SOLUTION UNIT CUPS PO SCH ×2 (09:11→23:45)
[2019-09-10] MEDS: QUEtiapine FUMARATE 25 MG TABLET PO SCH (09:12)
[2019-09-10] MEDS: POTASSIUM CHLORIDE ORAL LIQUID 20 MEQ/15 ML GT SCH ×2 (09:13→23:45)
[2019-09-10] MEDS: PHENobarbital 20 MG/5 ML UNIT-DOSE CUP NGT SCH ×2 (09:13→23:45)
[2019-09-10] MEDS: FAMOTIDINE 40 MG/5 ML ORAL SUSPENSION NGT SCH ×2 (09:14→23:47)
[2019-09-10] MEDS: levETIRAcetam 500 MG/5 ML ORAL SOLUTION (UNIT-DOSE CUPS) NGT SCH ×2 (09:15→23:45)
[2019-09-10] MEDS: ENOXAPARIN NA (PORCINE) 40 MG/0.4 ML DISP.SYRIN SQ SCH (09:15)
[2019-09-10] MEDS: NYSTATIN POWDER 100,000 UNITS/GM - 15 GM TOPICAL POWDER TP SCH ×2 (09:15→23:46)
--- NOTE | 2019-09-10 10:36 | PN ---
Progress Note, APPLICATION DEVELOPMENT TEAM LEAD - Note Progress Note: MBS completed with improving swallowing function. Silent aspiration on honey thick from cup Selected Entries 09/09/19 09/09/19 09/09/19 02:00 06:00 08:30 Supper Temperature 98.7 F 97.5 F L Pulse Rate 92 H 91 H 86 Blood Pressure 131/90 134/82 09/09/19 09/09/19 09/09/19 10:00 14:00 18:00 Supper NPO Temperature 98.8 F 98.7 F 98.7 F Pulse Rate 86 94 H 95 H Blood Pressure 143/96 140/85 128/83 09/09/19 09/10/19 09/10/19 22:00 02:00 06:00 Supper Temperature 97.9 F 97.8 F 97.7 F Pulse Rate 96 H 91 H 86 Blood Pressure 124/84 Laboratory Tests 09/09/19 09/10/19 07:40 07:20 WBC 9.8 10.4 H Monitor pulmonary status- WBC 10.4- Repeat CXR before po trial? Suggest PMV, Dys puree,honey thick on tsp Please refer to full rec in MBS report.
--- NOTE | 2019-09-10 14:16 | PN ---
Physical Exam: SUBJECTIVE: Patient seen and examined OBJECTIVE: Vital Signs Temperature 99.1 F 09/10/19 13:53 Pulse Rate 94 H 09/10/19 13:53 Respiratory Rate 22 H 09/10/19 13:53 Blood Pressure 120/80 09/10/19 13:53 O2 Sat by Pulse Oximetry (%) 100 09/10/19 12:54 GENERAL: The patient is awake, alert, nonverbal, follows commands EYES: PERRLA, EOMI EENT:moist mucous membranes. NECK: Trach in place LUNGS: Breath sounds equal, clear to auscultation bilaterally HEART: tachycardic, regular, S1, S2 ABDOMEN: Soft, nontender, nondistended, Percutaneous G tube in place, clean dry and intact EXTREMITIES: 2+ pulses, warm, well-perfused, no edema. Laboratory Results - last 24 hr 09/10/19 09/10/19 07:20 07:20 WBC 10.4 H RBC 3.57 L Hgb 9.8 L Hct 31.3 L MCV 87.9 MCH 27.3 MCHC 31.1 L RDW 16.5 H Plt Count 274 MPV 10.7 Absolute Neuts (auto) 5.8 Neutrophils % 55.5 Lymphocytes % 30.3 Monocytes % 6.5 Eosinophils % 7.0 H Basophils % 0.7 Nucleated RBC % 0 Sodium 140 Potassium 3.5 Chloride 109 H Carbon Dioxide 21 Anion Gap 10 BUN 12.5 Creatinine 0.4 L Est GFR (CKD-EPI)AfAm 174.63 Est GFR (CKD-EPI)NonAf 150.67 Random Glucose 108 H Calcium 8.9 Magnesium 2.0 Total Bilirubin 0.2 AST 46 H ALT 97 H Alkaline Phosphatase 121 H Total Protein 6.0 L Albumin 2.5 L Active Medications Generic Name Dose Route Start Last Admin Trade Name Freq PRN Reason Stop Dose Admin Albuterol/Ipratropium 1 amp 09/08/19 13:10 Duoneb - NEB Q6H PRN SHORTNESS OF BREATH Amino Acids 30 ml 08/09/19 08:00 09/10/19 09:10 Prosource No Carb Liquid Pkt GT 30 ml BID@0800,1730 TIKI Administration Artificial Tears 1 drop 08/08/19 18:05 09/05/19 09:19 Artificial Tears OU 1 drop Q12H PRN Administration DRY EYES Ascorbic Acid 500 mg 08/09/19 10:00 09/10/19 09:11 Vitamin C Oral Solution - GT 500 mg DAILY TIKI Administration Carvedilol 6.25 mg 08/20/19 09:33 09/10/19 09:11 Coreg - PO 6.25 mg BID TIKI Administration Cholecalciferol 800 unit 08/09/19 10:00 09/10/19 09:11 Vitamin D3 - NR 800 unit DAILY TIKI Administration Enoxaparin Sodium 40 mg 08/15/19 10:00 09/10/19 09:15 Lovenox - SQ 40 mg DAILY TIKI Administration Famotidine 20 mg 08/28/19 22:00 09/10/19 09:14 Pepcid NGT 20 mg BID TIKI Administration Lacosamide 200 mg 08/10/19 22:00 09/10/19 09:11 Vimpat Liquid - PO 200 mg BID TIKI Administration Levetiracetam 1,000 mg 08/10/19 22:00 09/10/19 09:15 Keppra Oral Solution - NGT 1,000 mg BID TIKI Administration Nitrofurantoin Macrocrystals 50 mg 09/06/19 12:00 09/10/19 11:20 Macrodantin - GT 50 mg Q6HPO TIKI Administration Nystatin 1 applic 08/21/19 11:15 09/10/19 09:15 Nystop Powder - TP 1 applic BID TIKI Administration Phenobarbital 60 mg 08/10/19 22:00 09/10/19 09:13 Phenobarbital Liquid - NGT 60 mg BID TIKI Administration Potassium Chloride 40 meq 08/08/19 22:00 09/10/19 09:13 Potassium Chloride Oral Liquid GT 40 meq BID TIKI Administration Quetiapine Fumarate 25 mg 08/18/19 10:45 09/10/19 09:12 Seroquel - PO 25 mg DAILY TIKI Administration Topiramate 200 mg 08/08/19 22:00 09/10/19 14:10 Topamax - GT 200 mg TID TIKI Administration Zinc Sulfate 220 mg 08/08/19 22:00 09/10/19 09:11 Orazinc - GT 220 mg BID TIKI Administration ASSESSMENT/PLAN: Patient is a 39 y/o M with PMH Mental Retardation and epilepsy who presented to ED initially with SOB and hypoxia requiring intubation, admitted to hospital for hypoxic respiratory failure 2/2 to covid-19. Hospital course complicated by bacteremia, fungemia, MRSA PNA, now with recurrent fever. #Acute Resp Failure 2/2 COVID-19 -s/p trach, convalescent plasma, tocilizumab -on CPAP vent settings. spontaneous breathing trials as tolerated -Pulm on board #Fever -persistent leukocytosis -Sputum Cx (08/21/2019) pos for MRSA, Dapto sensitive and E. coli, carbapenem sensitive -Blood cultures, urine cultures, cxr negative -ID on board. F/u Recs. Presently observing off Abx -Nephro on board #Transaminitis -persistent since admission -as of yet, no clear source identified -per GI, pt will potentially require a biopsy #Hypernatremia - sodium rising - increase free water with feeds - feeds held for a few hours yesterday while patient was on passy alejandro valve - Nephrology (Dr. Lockhart) consulted. REcommendations appreciated. #Tachycardia -c/w Coreg -c/w low-dose seroquel to treat potential contribution of anxiety #Epilepsy -c/w lorazepam prn, levetiracitam, phenobarbitol, lacosamide, topiramate #FEN -not on any standing fluids -electrolytes wnl, routine bmp monitoring -Tube feed Jevity 1.5 #Prophylaxis -Lovenox 40mg sq daily #Disposition -full code - pending SNF placement Visit type - Emergency Visit Emergency Visit: Yes ED Registration Date: 06/22/19 Care time: The patient presented to the Emergency Department on the above date and was hospitalized for further evaluation of their emergent condition. - New Patient This patient is new to me today: No - Critical Care Critical Care patient: No ATTENDING PHYSICIAN STATEMENT I saw and evaluated the patient. I reviewed the resident's note and discussed the case with the resident. I agree with the resident's findings and plan as documented. SUBJECTIVE: OBJECTIVE: ASSESSMENT AND PLAN:
--- NOTE | 2019-09-10 14:59 | PN ---
Progress Note, Physician History of Present Illness: Pt seen and examined at bedside. He appears comfortable. - Current Medication List Current Medications: Active Medications Albuterol/Ipratropium (Duoneb -) 1 amp NEB Q6H PRN PRN Reason: SHORTNESS OF BREATH Amino Acids (Prosource No Carb Liquid Pkt) 30 ml GT BID@0800,1730 [facility] Last Admin: 09/10/19 09:10 Dose: 30 ml Documented by: Artificial Tears (Artificial Tears) 1 drop OU Q12H PRN PRN Reason: DRY EYES Last Admin: 09/05/19 09:19 Dose: 1 drop Documented by: Ascorbic Acid (Vitamin C Oral Solution -) 500 mg GT DAILY [facility] Last Admin: 09/10/19 09:11 Dose: 500 mg Documented by: Carvedilol (Coreg -) 6.25 mg PO BID [facility] Last Admin: 09/10/19 09:11 Dose: 6.25 mg Documented by: Cholecalciferol (Vitamin D3 -) 800 unit NR DAILY [facility] Last Admin: 09/10/19 09:11 Dose: 800 unit Documented by: Enoxaparin Sodium (Lovenox -) 40 mg SQ DAILY [facility] Last Admin: 09/10/19 09:15 Dose: 40 mg Documented by: Famotidine (Pepcid) 20 mg NGT BID [facility] Last Admin: 09/10/19 09:14 Dose: 20 mg Documented by: Lacosamide (Vimpat Liquid -) 200 mg PO BID [facility] Last Admin: 09/10/19 09:11 Dose: 200 mg Documented by: Levetiracetam (Keppra Oral Solution -) 1,000 mg NGT BID [facility] Last Admin: 09/10/19 09:15 Dose: 1,000 mg Documented by: Nitrofurantoin Macrocrystals (Macrodantin -) 50 mg GT Q6HPO [facility] Last Admin: 09/10/19 11:20 Dose: 50 mg Documented by: Nystatin (Nystop Powder -) 1 applic TP BID [facility] Last Admin: 09/10/19 09:15 Dose: 1 applic Documented by: Phenobarbital (Phenobarbital Liquid -) 60 mg NGT BID [facility] Last Admin: 09/10/19 09:13 Dose: 60 mg Documented by: Potassium Chloride (Potassium Chloride Oral Liquid) 40 meq GT BID [facility] Last Admin: 09/10/19 09:13 Dose: 40 meq Documented by: Quetiapine Fumarate (Seroquel -) 25 mg PO DAILY [facility] Last Admin: 09/10/19 09:12 Dose: 25 mg Documented by: Topiramate (Topamax -) 200 mg GT TID [facility] Last Admin: 09/10/19 14:10 Dose: 200 mg Documented by: Zinc Sulfate (Orazinc -) 220 mg GT BID [facility] Last Admin: 09/10/19 09:11 Dose: 220 mg Documented by: - Objective Vital Signs: Vital Signs Temperature 99.1 F 09/10/19 13:53 Pulse Rate 94 H 09/10/19 13:53 Respiratory Rate 22 H 09/10/19 13:53 Blood Pressure 120/80 09/10/19 13:53 O2 Sat by Pulse Oximetry (%) 100 09/10/19 12:54 Constitutional: Yes: Calm Eyes: Yes: Conjunctiva Clear Neck: Yes: Other (trache) Cardiovascular: Yes: S1, S2 Respiratory: Yes: Other (trache collare) Gastrointestinal: Yes: Soft Genitourinary: Yes: Incontinence Edema: No Labs: CBC, BMP 09/10/19 07:20 09/10/19 07:20 INR, PTT INR 1.20 (0.83-1.09) H 08/21/19 11:30 Problem List - Problems (1) Hypernatremia Code(s): E87.0 - HYPEROSMOLALITY AND HYPERNATREMIA (2) Hypokalemia Code(s): E87.6 - HYPOKALEMIA (3) Acute respiratory failure with hypoxia Code(s): J96.01 - ACUTE RESPIRATORY FAILURE WITH HYPOXIA (4) Bacteremia Code(s): R78.81 - BACTEREMIA Assessment/Plan Current Medications Generic Name Dose Route Start Last Admin Trade Name Freq PRN Reason Stop Dose Admin Albuterol/Ipratropium 1 amp 09/08/19 13:10 Duoneb - NEB Q6H PRN SHORTNESS OF BREATH Amino Acids 30 ml 08/09/19 08:00 09/10/19 09:10 Prosource No Carb Liquid Pkt GT 30 ml BID@0800,1730 TIKI Administration Artificial Tears 1 drop 08/08/19 18:05 09/05/19 09:19 Artificial Tears OU 1 drop Q12H PRN Administration DRY EYES Ascorbic Acid 500 mg 08/09/19 10:00 09/10/19 09:11 Vitamin C Oral Solution - GT 500 mg DAILY TIKI Administration Carvedilol 6.25 mg 08/20/19 09:33 09/10/19 09:11 Coreg - PO 6.25 mg BID TIKI Administration Cholecalciferol 800 unit 08/09/19 10:00 09/10/19 09:11 Vitamin D3 - NR 800 unit DAILY TIKI Administration Enoxaparin Sodium 40 mg 08/15/19 10:00 09/10/19 09:15 Lovenox - SQ 40 mg DAILY TIKI Administration Famotidine 20 mg 08/28/19 22:00 09/10/19 09:14 Pepcid NGT 20 mg BID TIKI Administration Lacosamide 200 mg 08/10/19 22:00 09/10/19 09:11 Vimpat Liquid - PO 200 mg BID TIKI Administration Levetiracetam 1,000 mg 08/10/19 22:00 09/10/19 09:15 Keppra Oral Solution - NGT 1,000 mg BID TIKI Administration Nitrofurantoin Macrocrystals 50 mg 09/06/19 12:00 09/10/19 11:20 Macrodantin - GT 50 mg Q6HPO TIKI Administration Nystatin 1 applic 08/21/19 11:15 09/10/19 09:15 Nystop Powder - TP 1 applic BID TIKI Administration Phenobarbital 60 mg 08/10/19 22:00 09/10/19 09:13 Phenobarbital Liquid - NGT 60 mg BID TIKI Administration Potassium Chloride 40 meq 08/08/19 22:00 09/10/19 09:13 Potassium Chloride Oral Liquid GT 40 meq BID TIKI Administration Quetiapine Fumarate 25 mg 08/18/19 10:45 09/10/19 09:12 Seroquel - PO 25 mg DAILY TIKI Administration Topiramate 200 mg 08/08/19 22:00 09/10/19 14:10 Topamax - GT 200 mg TID TIKI Administration Zinc Sulfate 220 mg 08/08/19 22:00 09/10/19 09:11 Orazinc - GT 220 mg BID TIKI Administration Impression 1. hypokalemia 2. hypernatremia 3. resp failure 4. fungemia 5. covid 19 infection 6. ards 7. developemental delay 8. epilepsy 9. bactermia 10. resp acidosis with compensatory met alk Plan - sodium is improved - can d/c bolus free water - cont free water flushes - would keep diuretics on hold - trache care - volume status stable
[2019-09-11] MEDS: TOPIRAMATE 200 MG TABLET GT SCH ×3 (05:16→22:55)
[2019-09-11] MEDS: NITROFURANTOIN MACROCRYSTAL 50 MG CAPSULE (FP) GT SCH ×3 (05:16→17:47)
--- NOTE | 2019-09-11 07:39 | PN ---
Teaching Attending Note Name of Resident: Kae Pack ATTENDING PHYSICIAN STATEMENT I saw and evaluated the patient. I reviewed the resident's note and discussed the case with the resident. I agree with the resident's findings and plan as documented. SUBJECTIVE: OBJECTIVE: Vital Signs Temperature 98.7 F 09/11/19 05:00 Pulse Rate 99 H 09/11/19 05:00 Respiratory Rate 18 09/11/19 05:00 Blood Pressure 124/81 09/11/19 05:00 O2 Sat by Pulse Oximetry (%) 100 09/11/19 04:52 General: Young man status post trach not in distress HEENT mucous membranes moist, no anemia, no jaundice, PERRLA, no nystagmus Neck: Status post trach Chest: bilateral basal rales. CVS: S1-S2 no murmur/gallop/rub Abdomen: PEG tube at place nondistended, soft, bowel sounds present. 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 Active Medications Albuterol/Ipratropium (Duoneb -) 1 amp NEB Q6H PRN PRN Reason: SHORTNESS OF BREATH Amino Acids (Prosource No Carb Liquid Pkt) 30 ml GT BID@0800,1730 [facility] Last Admin: 09/10/19 17:09 Dose: 30 ml Documented by: Artificial Tears (Artificial Tears) 1 drop OU Q12H PRN PRN Reason: DRY EYES Last Admin: 09/05/19 09:19 Dose: 1 drop Documented by: Ascorbic Acid (Vitamin C Oral Solution -) 500 mg GT DAILY [facility] Last Admin: 09/10/19 09:11 Dose: 500 mg Documented by: Carvedilol (Coreg -) 6.25 mg PO BID [facility] Last Admin: 09/10/19 23:46 Dose: 6.25 mg Documented by: Cholecalciferol (Vitamin D3 -) 800 unit NR DAILY [facility] Last Admin: 09/10/19 09:11 Dose: 800 unit Documented by: Enoxaparin Sodium (Lovenox -) 40 mg SQ DAILY [facility] Last Admin: 09/10/19 09:15 Dose: 40 mg Documented by: Famotidine (Pepcid) 20 mg NGT BID [facility] Last Admin: 09/10/19 23:47 Dose: 20 mg Documented by: Lacosamide (Vimpat Liquid -) 200 mg PO BID [facility] Last Admin: 09/10/19 23:45 Dose: 200 mg Documented by: Levetiracetam (Keppra Oral Solution -) 1,000 mg NGT BID [facility] Last Admin: 09/10/19 23:45 Dose: 1,000 mg Documented by: Nitrofurantoin Macrocrystals (Macrodantin -) 50 mg GT Q6HPO [facility] Last Admin: 09/11/19 05:16 Dose: 50 mg Documented by: Nystatin (Nystop Powder -) 1 applic TP BID [facility] Last Admin: 09/10/19 23:46 Dose: 1 applic Documented by: Phenobarbital (Phenobarbital Liquid -) 60 mg NGT BID [facility] Last Admin: 09/10/19 23:45 Dose: 60 mg Documented by: Potassium Chloride (Potassium Chloride Oral Liquid) 40 meq GT BID [facility] Last Admin: 09/10/19 23:45 Dose: 40 meq Documented by: Quetiapine Fumarate (Seroquel -) 25 mg PO DAILY [facility] Last Admin: 09/10/19 09:12 Dose: 25 mg Documented by: Topiramate (Topamax -) 200 mg GT TID [facility] Last Admin: 09/11/19 05:16 Dose: 200 mg Documented by: Zinc Sulfate (Orazinc -) 220 mg GT BID [facility] Last Admin: 09/10/19 23:46 Dose: 220 mg Documented by: CBC, BMP 09/10/19 07:20 09/11/19 10:28 ASSESSMENT AND PLAN:39 years old male mentally challenged, seizure disorders lives at home admitted with hypoxic respiratory failure on June 22, 2019 secondary to COVID-19, multiple pulmonary infection and bacteremia treated for fungemia, MRSA, ESBL E. coli,, persistent staph epi bacteremia normal echocardiogram completed vancomycin total 6 weeks , now off antibiotic. Active issues 1. Hypoxic respiratory failure: due to COVID-19 pneumonia status post i ntubation and extubation now trach, vent dependent, hypoxia management as per pulmonary consult. 2. H CAP: Completed antibiotic 3. MRSA bacteremia: Completed antibiotic for 6 weeks now afebrile cultures are negative will stop 4. Fungemia completed antibiotic 5. Seizure disorders: Seizure-free on current medications 6. Respiratory insufficiency: Continue vent and bronchodilators 7. Anemia H&H is stable Patient is hemodynamically stable will do well the next lab work-up. Disposition: Patient has no insurance now vent dependent on professor of social work is working for safe discharge to a long-term acute care. Case discussed with the resident. Problem List - Problems (1) Acute respiratory failure with hypoxia Code(s): J96.01 - ACUTE RESPIRATORY FAILURE WITH HYPOXIA (2) Bacteremia Code(s): R78.81 - BACTEREMIA (3) Fever Code(s): R50.9 - FEVER, UNSPECIFIED (4) Seizure disorder Code(s): G40.909 - EPILEPSY, UNSP, NOT INTRACTABLE, WITHOUT STATUS EPILEPTICUS (5) Diarrhea Code(s): R19.7 - DIARRHEA, UNSPECIFIED (6) DVT prophylaxis Code(s): Z29.9 - ENCOUNTER FOR PROPHYLACTIC MEASURES, UNSPECIFIED (7) Pneumonia due to COVID-19 virus Code(s): U07.1 - COVID POSITIVE; J12.89 - OTHER VIRAL PNEUMONIA (8) Tachycardia Code(s): R00.0 - TACHYCARDIA, UNSPECIFIED
--- NOTE | 2019-09-11 08:01 | PN ---
Progress Note, Physician History of Present Illness: PULMONARY AWAKE,ALERT ON TRACH COLLAR TOLERATING WELL - Current Medication List Current Medications: Active Medications Albuterol/Ipratropium (Duoneb -) 1 amp NEB Q6H PRN PRN Reason: SHORTNESS OF BREATH Amino Acids (Prosource No Carb Liquid Pkt) 30 ml GT BID@0800,1730 [facility] Last Admin: 09/10/19 17:09 Dose: 30 ml Documented by: Artificial Tears (Artificial Tears) 1 drop OU Q12H PRN PRN Reason: DRY EYES Last Admin: 09/05/19 09:19 Dose: 1 drop Documented by: Ascorbic Acid (Vitamin C Oral Solution -) 500 mg GT DAILY [facility] Last Admin: 09/10/19 09:11 Dose: 500 mg Documented by: Carvedilol (Coreg -) 6.25 mg PO BID [facility] Last Admin: 09/10/19 23:46 Dose: 6.25 mg Documented by: Cholecalciferol (Vitamin D3 -) 800 unit NR DAILY [facility] Last Admin: 09/10/19 09:11 Dose: 800 unit Documented by: Enoxaparin Sodium (Lovenox -) 40 mg SQ DAILY [facility] Last Admin: 09/10/19 09:15 Dose: 40 mg Documented by: Famotidine (Pepcid) 20 mg NGT BID [facility] Last Admin: 09/10/19 23:47 Dose: 20 mg Documented by: Lacosamide (Vimpat Liquid -) 200 mg PO BID [facility] Last Admin: 09/10/19 23:45 Dose: 200 mg Documented by: Levetiracetam (Keppra Oral Solution -) 1,000 mg NGT BID [facility] Last Admin: 09/10/19 23:45 Dose: 1,000 mg Documented by: Nitrofurantoin Macrocrystals (Macrodantin -) 50 mg GT Q6HPO [facility] Last Admin: 09/11/19 05:16 Dose: 50 mg Documented by: Nystatin (Nystop Powder -) 1 applic TP BID [facility] Last Admin: 09/10/19 23:46 Dose: 1 applic Documented by: Phenobarbital (Phenobarbital Liquid -) 60 mg NGT BID [facility] Last Admin: 09/10/19 23:45 Dose: 60 mg Documented by: Potassium Chloride (Potassium Chloride Oral Liquid) 40 meq GT BID [facility] Last Admin: 09/10/19 23:45 Dose: 40 meq Documented by: Quetiapine Fumarate (Seroquel -) 25 mg PO DAILY [facility] Last Admin: 09/10/19 09:12 Dose: 25 mg Documented by: Topiramate (Topamax -) 200 mg GT TID [facility] Last Admin: 09/11/19 05:16 Dose: 200 mg Documented by: Zinc Sulfate (Orazinc -) 220 mg GT BID [facility] Last Admin: 09/10/19 23:46 Dose: 220 mg Documented by: - Objective Vital Signs: Vital Signs Temperature 98.7 F 09/11/19 05:00 Pulse Rate 99 H 09/11/19 05:00 Respiratory Rate 18 09/11/19 05:00 Blood Pressure 124/81 09/11/19 05:00 O2 Sat by Pulse Oximetry (%) 100 09/11/19 04:52 Constitutional: Yes: Well Nourished, Calm Eyes: Yes: WNL HENT: Yes: WNL Neck: Yes: Supple (TRACH) Cardiovascular: Yes: Regular Rate and Rhythm, S1, S2 Extremities: Yes: WNL Edema: No Labs: Problem List - Problems (1) COVID-19 Code(s): U07.1 - COVID POSITIVE (2) COVID-19 Code(s): U07.1 - COVID POSITIVE (3) Acute respiratory failure with hypoxia Code(s): J96.01 - ACUTE RESPIRATORY FAILURE WITH HYPOXIA (4) Seizure disorder Code(s): G40.909 - EPILEPSY, UNSP, NOT INTRACTABLE, WITHOUT STATUS EPILEPTICUS (5) Status epilepticus Code(s): G40.901 - EPILEPSY, UNSP, NOT INTRACTABLE, WITH STATUS EPILEPTICUS Assessment/Plan ASSESSMENT AND PLAN: Acute Hypoxic and Hypercapneic Respiratory Failure improved COVID19 Pneumonia E Coli Pneumonia Fungenmia Bacteremia Septic Shock Seizure Disorder Mental Retardation ABNORMAL LFTS - Ativan PRN - antiepileptics - titrate 02 - trach collar as tolerated - DVT/GI prophylaxis - inhaled bronchodilators - PMV as tolerated - po as tolerated Dr MARTINEZ
--- NOTE | 2019-09-11 09:26 | PN ---
Progress Note, [employer] WORKER - Note Progress Note: Selected Entries 09/10/19 09/11/19 09/11/19 18:53 00:37 02:00 Supper NPO Temperature 97.7 F Pulse Rate 103 H Respiratory 19 22 H Rate Blood Pressure 125/77 O2 Sat by Pulse 100 Oximetry (%) Fraction of 40 Inspired Oxygen (FIO2) 09/11/19 09/11/19 04:52 05:00 Supper Temperature 98.7 F Pulse Rate 99 H Respiratory 24 H 18 Rate Blood Pressure 124/81 O2 Sat by Pulse 100 Oximetry (%) Fraction of 40 Inspired Oxygen (FIO2) Laboratory Tests 09/10/19 07: WBC 10.4 H On trach collar with PMV! Excellent progress. Consider PO trials per PMV with aspiration precautions
[2019-09-11] MEDS: AMINO ACIDS/PROTEIN HYDROLYS 30 ML LIQUID.PKT GT SCH ×2 (11:16→17:47)
[2019-09-11] MEDS: ENOXAPARIN NA (PORCINE) 40 MG/0.4 ML DISP.SYRIN SQ SCH (11:16)
[2019-09-11] MEDS: FAMOTIDINE 40 MG/5 ML ORAL SUSPENSION NGT SCH ×2 (11:17→22:55)
[2019-09-11] MEDS: PHENobarbital 20 MG/5 ML UNIT-DOSE CUP NGT SCH ×2 (11:17→22:23)
[2019-09-11] MEDS: ASCORBIC ACID 500 MG/5 ML UNIT DOSE CUP GT SCH (11:17)
[2019-09-11] MEDS: CHOLECALCIFEROL (VIT D3) 400 UNIT (10 MCG) TABLET NR SCH (11:18)
[2019-09-11] MEDS: ZINC SULFATE 220 MG CAPSULE (FP) GT SCH ×2 (11:18→22:28)
[2019-09-11] MEDS: levETIRAcetam 500 MG/5 ML ORAL SOLUTION (UNIT-DOSE CUPS) NGT SCH ×2 (11:18→22:23)
[2019-09-11] MEDS: CARVEDILOL 6.25 MG TABLET (FP) PO SCH ×2 (11:19→22:23)
[2019-09-11] MEDS: QUEtiapine FUMARATE 25 MG TABLET PO SCH (11:19)
[2019-09-11] MEDS: POTASSIUM CHLORIDE ORAL LIQUID 20 MEQ/15 ML GT SCH ×2 (11:19→22:21)
[2019-09-11] MEDS: Lacosamide 50 MG/5 ML ORAL SOLUTION UNIT CUPS PO SCH ×2 (11:19→22:21)
[2019-09-11] MEDS: NYSTATIN POWDER 100,000 UNITS/GM - 15 GM TOPICAL POWDER TP SCH ×2 (11:21→22:24)
[2019-09-11 12:12] LABS: ALBUMIN 2.7 g/dl (3.4-5.0); BILIRUBIN,TOTAL 0.2 mg/dL (0.2-1); BLOOD UREA NITROGEN 8.9 mg/dL (7-18); CALCIUM 8.9 mg/dL (8.5-10.1); CREATININE 0.4 mg/dL (0.55-1.3); POTASSIUM 3.6 mmol/L (3.5-5.1); TOT PROT 6.4 g/dl (6.4-8.2)
--- NOTE | 2019-09-11 13:42 | PN ---
Progress Note, Physician History of Present Illness: Pt seen and examined at bedside. NO great change in status. - Current Medication List Current Medications: Active Medications Albuterol/Ipratropium (Duoneb -) 1 amp NEB Q6H PRN PRN Reason: SHORTNESS OF BREATH Amino Acids (Prosource No Carb Liquid Pkt) 30 ml GT BID@0800,1730 [facility] Last Admin: 09/11/19 11:16 Dose: 30 ml Documented by: Artificial Tears (Artificial Tears) 1 drop OU Q12H PRN PRN Reason: DRY EYES Last Admin: 09/05/19 09:19 Dose: 1 drop Documented by: Ascorbic Acid (Vitamin C Oral Solution -) 500 mg GT DAILY [facility] Last Admin: 09/11/19 11:17 Dose: 500 mg Documented by: Carvedilol (Coreg -) 6.25 mg PO BID [facility] Last Admin: 09/11/19 11:19 Dose: 6.25 mg Documented by: Cholecalciferol (Vitamin D3 -) 800 unit NR DAILY [facility] Last Admin: 09/11/19 11:18 Dose: 800 unit Documented by: Enoxaparin Sodium (Lovenox -) 40 mg SQ DAILY [facility] Last Admin: 09/11/19 11:16 Dose: 40 mg Documented by: Famotidine (Pepcid) 20 mg NGT BID [facility] Last Admin: 09/11/19 11:17 Dose: 20 mg Documented by: Lacosamide (Vimpat Liquid -) 200 mg PO BID [facility] Last Admin: 09/11/19 11:19 Dose: 200 mg Documented by: Levetiracetam (Keppra Oral Solution -) 1,000 mg NGT BID [facility] Last Admin: 09/11/19 11:18 Dose: 1,000 mg Documented by: Nitrofurantoin Macrocrystals (Macrodantin -) 50 mg GT Q6HPO [facility] Last Admin: 09/11/19 11:23 Dose: 50 mg Documented by: Nystatin (Nystop Powder -) 1 applic TP BID [facility] Last Admin: 09/11/19 11:21 Dose: 1 applic Documented by: Phenobarbital (Phenobarbital Liquid -) 60 mg NGT BID [facility] Last Admin: 09/11/19 11:17 Dose: 60 mg Documented by: Potassium Chloride (Potassium Chloride Oral Liquid) 40 meq GT BID [facility] Last Admin: 09/11/19 11:19 Dose: 40 meq Documented by: Quetiapine Fumarate (Seroquel -) 25 mg PO DAILY [facility] Last Admin: 09/11/19 11:19 Dose: 25 mg Documented by: Topiramate (Topamax -) 200 mg GT TID [facility] Last Admin: 09/11/19 05:16 Dose: 200 mg Documented by: Zinc Sulfate (Orazinc -) 220 mg GT BID [facility] Last Admin: 09/11/19 11:18 Dose: 220 mg Documented by: - Objective Vital Signs: Vital Signs Temperature 98.7 F 09/11/19 05:00 Pulse Rate 102 H 09/11/19 08:30 Respiratory Rate 18 09/11/19 05:00 Blood Pressure 124/81 09/11/19 05:00 O2 Sat by Pulse Oximetry (%) 100 09/11/19 08:30 Constitutional: Yes: Calm Eyes: Yes: Conjunctiva Clear HENT: Yes: Atraumatic Neck: Yes: Supple Cardiovascular: Yes: S1, S2 Respiratory: Yes: Mechanically Ventilated Gastrointestinal: Yes: Soft Genitourinary: Yes: Incontinence Musculoskeletal: Yes: Muscle Weakness Edema: No Neurological: Yes: Pre-Existing Deficit Labs: CBC, BMP 09/10/19 07:20 09/11/19 10:28 INR, PTT INR 1.20 (0.83-1.09) H 08/21/19 11:30 Problem List - Problems (1) Hypernatremia Code(s): E87.0 - HYPEROSMOLALITY AND HYPERNATREMIA (2) Hypokalemia Code(s): E87.6 - HYPOKALEMIA (3) Acute respiratory failure with hypoxia Code(s): J96.01 - ACUTE RESPIRATORY FAILURE WITH HYPOXIA (4) Bacteremia Code(s): R78.81 - BACTEREMIA Assessment/Plan Current Medications Generic Name Dose Route Start Last Admin Trade Name Freq PRN Reason Stop Dose Admin Albuterol/Ipratropium 1 amp 09/08/19 13:10 Duoneb - NEB Q6H PRN SHORTNESS OF BREATH Amino Acids 30 ml 08/09/19 08:00 09/11/19 11:16 Prosource No Carb Liquid Pkt GT 30 ml BID@0800,1730 [facility] Administration Artificial Tears 1 drop 08/08/19 18:05 09/05/19 09:19 Artificial Tears OU 1 drop Q12H PRN Administration DRY EYES Ascorbic Acid 500 mg 08/09/19 10:00 09/11/19 11:17 Vitamin C Oral Solution - GT 500 mg DAILY [facility] Administration Carvedilol 6.25 mg 08/20/19 09:33 09/11/19 11:19 Coreg - PO 6.25 mg BID [facility] Administration Cholecalciferol 800 unit 08/09/19 10:00 09/11/19 11:18 Vitamin D3 - NR 800 unit DAILY [facility] Administration Enoxaparin Sodium 40 mg 08/15/19 10:00 09/11/19 11:16 Lovenox - SQ 40 mg DAILY [facility] Administration Famotidine 20 mg 08/28/19 22:00 09/11/19 11:17 Pepcid NGT 20 mg BID [facility] Administration Lacosamide 200 mg 08/10/19 22:00 09/11/19 11:19 Vimpat Liquid - PO 200 mg BID [facility] Administration Levetiracetam 1,000 mg 08/10/19 22:00 09/11/19 11:18 Keppra Oral Solution - NGT 1,000 mg BID [facility] Administration Nitrofurantoin Macrocrystals 50 mg 09/06/19 12:00 09/11/19 11:23 Macrodantin - GT 50 mg Q6HPO [facility] Administration Nystatin 1 applic 08/21/19 11:15 09/11/19 11:21 Nystop Powder - TP 1 applic BID [facility] Administration Phenobarbital 60 mg 08/10/19 22:00 09/11/19 11:17 Phenobarbital Liquid - NGT 60 mg BID [facility] Administration Potassium Chloride 40 meq 08/08/19 22:00 09/11/19 11:19 Potassium Chloride Oral Liquid GT 40 meq BID [facility] Administration Quetiapine Fumarate 25 mg 08/18/19 10:45 09/11/19 11:19 Seroquel - PO 25 mg DAILY [facility] Administration Topiramate 200 mg 08/08/19 22:00 09/11/19 05:16 Topamax - GT 200 mg TID [facility] Administration Zinc Sulfate 220 mg 08/08/19 22:00 09/11/19 11:18 Orazinc - GT 220 mg BID [facility] Administration Impression 1. hypokalemia 2. hypernatremia 3. resp failure 4. fungemia 5. covid 19 infection 6. ards 7. developemental delay 8. epilepsy 9. bactermia 10. resp acidosis with compensatory met alk Plan - lytes are stable - cont trache care - monitor lytes - will follow prn - cont feeds with free water - monitor sodium
--- NOTE | 2019-09-11 14:20 | PN ---
Physical Exam: SUBJECTIVE: Patient seen and examined OBJECTIVE: Vital Signs Temperature 98.7 F 09/11/19 05:00 Pulse Rate 102 H 09/11/19 08:30 Respiratory Rate 18 09/11/19 05:00 Blood Pressure 124/81 09/11/19 05:00 O2 Sat by Pulse Oximetry (%) 100 09/11/19 08:30 GENERAL: The patient is awake, alert, nonverbal, follows commands EYES: PERRLA, EOMI EENT:moist mucous membranes. NECK: Trach in place LUNGS: Breath sounds equal, clear to auscultation bilaterally HEART: tachycardic, regular, S1, S2 ABDOMEN: Soft, nontender, nondistended, Percutaneous G tube in place, clean dry and intact EXTREMITIES: 2+ pulses, warm, well-perfused, no edema. Laboratory Results - last 24 hr 09/11/19 10:28 Sodium 138 Potassium 3.6 Chloride 106 Carbon Dioxide 25 Anion Gap 7 L BUN 8.9 Creatinine 0.4 L Est GFR (CKD-EPI)AfAm 174.63 Est GFR (CKD-EPI)NonAf 150.67 Random Glucose 95 Calcium 8.9 Total Bilirubin 0.2 AST 44 H ALT 97 H Alkaline Phosphatase 131 H Total Protein 6.4 Albumin 2.7 L Active Medications Generic Name Dose Route Start Last Admin Trade Name Freq PRN Reason Stop Dose Admin Albuterol/Ipratropium 1 amp 09/08/19 13:10 Duoneb - NEB Q6H PRN SHORTNESS OF BREATH Amino Acids 30 ml 08/09/19 08:00 09/11/19 11:16 Prosource No Carb Liquid Pkt GT 30 ml BID@0800,1730 [facility] Administration Artificial Tears 1 drop 08/08/19 18:05 09/05/19 09:19 Artificial Tears OU 1 drop Q12H PRN Administration DRY EYES Ascorbic Acid 500 mg 08/09/19 10:00 09/11/19 11:17 Vitamin C Oral Solution - GT 500 mg DAILY [facility] Administration Carvedilol 6.25 mg 08/20/19 09:33 09/11/19 11:19 Coreg - PO 6.25 mg BID [facility] Administration Cholecalciferol 800 unit 08/09/19 10:00 09/11/19 11:18 Vitamin D3 - NR 800 unit DAILY [facility] Administration Enoxaparin Sodium 40 mg 08/15/19 10:00 09/11/19 11:16 Lovenox - SQ 40 mg DAILY [facility] Administration Famotidine 20 mg 08/28/19 22:00 09/11/19 11:17 Pepcid NGT 20 mg BID [facility] Administration Lacosamide 200 mg 08/10/19 22:00 09/11/19 11:19 Vimpat Liquid - PO 200 mg BID [facility] Administration Levetiracetam 1,000 mg 08/10/19 22:00 09/11/19 11:18 Keppra Oral Solution - NGT 1,000 mg BID [facility] Administration Nitrofurantoin Macrocrystals 50 mg 09/06/19 12:00 09/11/19 11:23 Macrodantin - GT 50 mg Q6HPO [facility] Administration Nystatin 1 applic 08/21/19 11:15 09/11/19 11:21 Nystop Powder - TP 1 applic BID [facility] Administration Phenobarbital 60 mg 08/10/19 22:00 09/11/19 11:17 Phenobarbital Liquid - NGT 60 mg BID [facility] Administration Potassium Chloride 40 meq 08/08/19 22:00 09/11/19 11:19 Potassium Chloride Oral Liquid GT 40 meq BID [facility] Administration Quetiapine Fumarate 25 mg 08/18/19 10:45 09/11/19 11:19 Seroquel - PO 25 mg DAILY [facility] Administration Topiramate 200 mg 08/08/19 22:00 09/11/19 05:16 Topamax - GT 200 mg TID [facility] Administration Zinc Sulfate 220 mg 08/08/19 22:00 09/11/19 11:18 Orazinc - GT 220 mg BID [facility] Administration ASSESSMENT/PLAN: Patient is a 39 y/o M with H Mental Retardation and epilepsy who presented to ED initially with SOB and hypoxia requiring intubation, admitted to hospital for hypoxic respiratory failure 2/2 to [facility]-19. Hospital course complicated by ba cteremia, fungemia, MRSA PNA, now with recurrent fever. #Acute Resp Failure 2/2 COVID-19 -s/p trach, convalescent plasma, tocilizumab -on CPAP vent settings. spontaneous breathing trials as tolerated -Pulm on board #Fever -persistent leukocytosis -Sputum Cx (08/21/2019) pos for MRSA, Dapto sensitive and E. coli, carbapenem sensitive -Blood cultures, urine cultures, cxr negative -ID on board. F/u Recs. Presently observing off Abx -Nephro on board #Transaminitis -persistent since admission -as of yet, no clear source identified -per GI, pt will potentially require a biopsy #Hypernatremia - sodium rising - increase free water with feeds - feeds held for a few hours yesterday while patient was on passy alejandro valve - Nephrology (Dr. Lockhart) consulted. REcommendations appreciated. #Tachycardia -c/w Coreg -c/w low-dose seroquel to treat potential contribution of anxiety #Epilepsy -c/w lorazepam prn, levetiracitam, phenobarbitol, lacosamide, topiramate #FEN -not on any standing fluids -electrolytes wnl, routine bmp monitoring -Tube feed Jevity 1.5, and trial of Dysphagia puree diet with thickened liquids #Prophylaxis -Lovenox 40mg sq daily #Disposition -full code - pending SNF placement Visit type - Emergency Visit Emergency Visit: Yes ED Registration Date: 06/22/19 Care time: The patient presented to the Emergency Department on the above date and was hospitalized for further evaluation of their emergent condition. - New Patient This patient is new to me today: No - Critical Care Critical Care patient: No ATTENDING PHYSICIAN STATEMENT I saw and evaluated the patient. I reviewed the resident's note and discussed the case with the resident. I agree with the resident's findings and plan as documented. SUBJECTIVE: OBJECTIVE: ASSESSMENT AND PLAN:
[2019-09-11 18:33] LABS: BLOOD UREA NITROGEN 8.9 mg/dL (7-18); CREATININE 0.4 mg/dL (0.55-1.3); POTASSIUM 3.7 mmol/L (3.5-5.1)
[2019-09-11] MEDS ORDERED: PT OWN MED DRAWER 7, Y5N ONE (22:06)
[2019-09-12] MEDS: NITROFURANTOIN MACROCRYSTAL 50 MG CAPSULE (FP) GT SCH ×4 (00:14→17:43)
[2019-09-12] MEDS: TOPIRAMATE 200 MG TABLET GT SCH ×3 (05:52→22:03)
--- NOTE | 2019-09-12 07:08 | PN ---
Progress Note, Physician History of Present Illness: pulmonary alert,on trach collar,-resp distress - Current Medication List Current Medications: Active Medications Albuterol/Ipratropium (Duoneb -) 1 amp NEB Q6H PRN PRN Reason: SHORTNESS OF BREATH Amino Acids (Prosource No Carb Liquid Pkt) 30 ml GT BID@0800,1730 [facility] Last Admin: 09/11/19 17:47 Dose: 30 ml Documented by: Artificial Tears (Artificial Tears) 1 drop OU Q12H PRN PRN Reason: DRY EYES Last Admin: 09/05/19 09:19 Dose: 1 drop Documented by: Ascorbic Acid (Vitamin C Oral Solution -) 500 mg GT DAILY [facility] Last Admin: 09/11/19 11:17 Dose: 500 mg Documented by: Carvedilol (Coreg -) 6.25 mg PO BID [facility] Last Admin: 09/11/19 22:23 Dose: 6.25 mg Documented by: Cholecalciferol (Vitamin D3 -) 800 unit NR DAILY [facility] Last Admin: 09/11/19 11:18 Dose: 800 unit Documented by: Enoxaparin Sodium (Lovenox -) 40 mg SQ DAILY [facility] Last Admin: 09/11/19 11:16 Dose: 40 mg Documented by: Famotidine (Pepcid) 20 mg NGT BID [facility] Last Admin: 09/11/19 22:55 Dose: 20 mg Documented by: Lacosamide (Vimpat Liquid -) 200 mg PO BID [facility] Last Admin: 09/11/19 22:21 Dose: 200 mg Documented by: Levetiracetam (Keppra Oral Solution -) 1,000 mg NGT BID [facility] Last Admin: 09/11/19 22:23 Dose: 1,000 mg Documented by: Nitrofurantoin Macrocrystals (Macrodantin -) 50 mg GT Q6HPO [facility] Last Admin: 09/12/19 05:52 Dose: 50 mg Documented by: Nystatin (Nystop Powder -) 1 applic TP BID [facility] Last Admin: 09/11/19 22:24 Dose: 1 applic Documented by: Phenobarbital (Phenobarbital Liquid -) 60 mg NGT BID [facility] Last Admin: 09/11/19 22:23 Dose: 60 mg Documented by: Potassium Chloride (Potassium Chloride Oral Liquid) 40 meq GT BID [facility] Last Admin: 09/11/19 22:21 Dose: 40 meq Documented by: Quetiapine Fumarate (Seroquel -) 25 mg PO DAILY [facility] Last Admin: 09/11/19 11:19 Dose: 25 mg Documented by: Topiramate (Topamax -) 200 mg GT TID [facility] Last Admin: 09/12/19 05:52 Dose: 200 mg Documented by: Zinc Sulfate (Orazinc -) 220 mg GT BID [facility] Last Admin: 09/11/19 22:28 Dose: 220 mg Documented by: - Objective Vital Signs: Vital Signs Temperature 97.3 F L 09/12/19 02:00 Pulse Rate 98 H 09/12/19 02:00 Respiratory Rate 28 H 09/12/19 04:50 Blood Pressure 115/73 09/12/19 02:00 O2 Sat by Pulse Oximetry (%) 100 09/12/19 04:50 Constitutional: Yes: Well Nourished, Calm Eyes: Yes: WNL HENT: Yes: WNL Neck: Yes: Supple (trach) Cardiovascular: Yes: Regular Rate and Rhythm, S1, S2 Respiratory: Yes: Rhonchi (few rhonchi) Gastrointestinal: Yes: Normal Bowel Sounds, Soft Extremities: Yes: WNL Edema: No Labs: CBC, BMP 09/10/19 07:20 09/11/19 17:42 INR, PTT INR 1.20 (0.83-1.09) H 08/21/19 11:30 Problem List - Problems (1) COVID-19 Code(s): U07.1 - COVID POSITIVE (2) COVID-19 Code(s): U07.1 - COVID POSITIVE (3) Acute respiratory failure with hypoxia Code(s): J96.01 - ACUTE RESPIRATORY FAILURE WITH HYPOXIA (4) Seizure disorder Code(s): G40.909 - EPILEPSY, UNSP, NOT INTRACTABLE, WITHOUT STATUS EPILEPTICUS (5) Status epilepticus Code(s): G40.901 - EPILEPSY, UNSP, NOT INTRACTABLE, WITH STATUS EPILEPTICUS Assessment/Plan ASSESSMENT AND PLAN: Acute Hypoxic and Hypercapneic Respiratory Failure improved COVID19 Pneumonia E Coli Pneumonia Fungenmia Bacteremia Septic Shock Seizure Disorder Mental Retardation ABNORMAL LFTS - Ativan PRN - antiepileptics - titrate 02 - trach collar as tolerated - DVT/GI prophylaxis - inhaled bronchodilators - PMV as tolerated - po as tolerated Dr MARTINEZ
[2019-09-12 07:56] LABS: BASO % 0.7 % (0-2.0); HEMATOCRIT 31.4 % (35.4-49); HEMOGLOBIN 9.9 GM/dL (11.7-16.9); MCH 27.2 pg (25.7-33.7); MCHC 31.6 g/dl (32.0-35.9); MEAN PLT VOLUME 10.2 fl (7.5-11.1); MONO % 6.8 % (3.8-10.2); NEUT % 63.5 % (42.8-82.8); PLATELET COUNT 282 K/MM3 (134-434); RBC 3.65 M/mm3 (4.00-5.60); RDW 16.8 % (11.9-15.9); WHITE BLOOD COUNT 10.8 K/mm3 (4.0-10.0)
--- NOTE | 2019-09-12 09:08 | PN ---
Progress Note, Physician Chief Complaint: Patient remained at baseline History of Present Illness: 39 years old male mentally challenged, seizure disorders lives at home admitted with hypoxic respiratory failure on June 22, 2019 secondary to COVID-19, multiple pulmonary infection and bacteremia treated for fungemia, MRSA, ESBL E. coli,, persistent staph epi bacteremia normal echocardiogram completed vancomycin total 6 weeks , now off antibiotic. - Current Medication List Current Medications: Active Medications Albuterol/Ipratropium (Duoneb -) 1 amp NEB Q6H PRN PRN Reason: SHORTNESS OF BREATH Amino Acids (Prosource No Carb Liquid Pkt) 30 ml GT BID@0800,1730 [facility] Last Admin: 09/11/19 17:47 Dose: 30 ml Documented by: Artificial Tears (Artificial Tears) 1 drop OU Q12H PRN PRN Reason: DRY EYES Last Admin: 09/05/19 09:19 Dose: 1 drop Documented by: Ascorbic Acid (Vitamin C Oral Solution -) 500 mg GT DAILY [facility] Last Admin: 09/11/19 11:17 Dose: 500 mg Documented by: Carvedilol (Coreg -) 6.25 mg PO BID [facility] Last Admin: 09/11/19 22:23 Dose: 6.25 mg Documented by: Cholecalciferol (Vitamin D3 -) 800 unit NR DAILY [facility] Last Admin: 09/11/19 11:18 Dose: 800 unit Documented by: Enoxaparin Sodium (Lovenox -) 40 mg SQ DAILY [facility] Last Admin: 09/11/19 11:16 Dose: 40 mg Documented by: Famotidine (Pepcid) 20 mg NGT BID [facility] Last Admin: 09/11/19 22:55 Dose: 20 mg Documented by: Lacosamide (Vimpat Liquid -) 200 mg PO BID [facility] Last Admin: 09/11/19 22:21 Dose: 200 mg Documented by: Levetiracetam (Keppra Oral Solution -) 1,000 mg NGT BID [facility] Last Admin: 09/11/19 22:23 Dose: 1,000 mg Documented by: Nitrofurantoin Macrocrystals (Macrodantin -) 50 mg GT Q6HPO [facility] Last Admin: 09/12/19 05:52 Dose: 50 mg Documented by: Nystatin (Nystop Powder -) 1 applic TP BID [facility] Last Admin: 07/10/20 22:24 Dose: 1 applic Documented by: Phenobarbital (Phenobarbital Liquid -) 60 mg NGT BID [facility] Last Admin: 09/11/19 22:23 Dose: 60 mg Documented by: Potassium Chloride (Potassium Chloride Oral Liquid) 40 meq GT BID [facility] Last Admin: 09/11/19 22:21 Dose: 40 meq Documented by: Quetiapine Fumarate (Seroquel -) 25 mg PO DAILY [facility] Last Admin: 09/11/19 11:19 Dose: 25 mg Documented by: Topiramate (Topamax -) 200 mg GT TID [facility] Last Admin: 09/12/19 05:52 Dose: 200 mg Documented by: Zinc Sulfate (Orazinc -) 220 mg GT BID [facility] Last Admin: 09/11/19 22:28 Dose: 220 mg Documented by: - Objective Vital Signs: Vital Signs Temperature 98.1 F 09/12/19 06:00 Pulse Rate 102 H 09/12/19 08:34 Respiratory Rate 09/12/19 06:00 Blood Pressure 135/82 09/12/19 06:00 O2 Sat by Pulse Oximetry (%) 100 09/12/19 08:34 General: Young man status post trach not in distress HEENT mucous membranes moist, no anemia, no jaundice, PERRLA, no nystagmus Neck: Status post trach Chest: bilateral basal rales. CVS: S1-S2 no murmur/gallop/rub Abdomen: PEG tube at place nondistended, soft, bowel sounds present. Extremities: No edema., No Calf tenderness, pulses present SENIOR CONTROLS ANALYST: Alert nonverbal Labs: CBC, BMP 09/12/19 07:05 09/11/19 17:42 INR, PTT INR 1.20 (0.83-1.09) H 08/21/19 11:30 Problem List - Problems (1) Acute respiratory failure with hypoxia Code(s): J96.01 - ACUTE RESPIRATORY FAILURE WITH HYPOXIA (2) Bacteremia Code(s): R78.81 - BACTEREMIA (3) Fever Code(s): R50.9 - FEVER, UNSPECIFIED (4) Seizure disorder Code(s): G40.909 - EPILEPSY, UNSP, NOT INTRACTABLE, WITHOUT STATUS EPILEPTICUS (5) Diarrhea Code(s): R19.7 - DIARRHEA, UNSPECIFIED (6) DVT prophylaxis Code(s): Z29.9 - ENCOUNTER FOR PROPHYLACTIC MEASURES, UNSPECIFIED (7) Pneumonia due to COVID-19 virus Code(s): U07.1 - COVID POSITIVE; J12.89 - OTHER VIRAL PNEUMONIA (8) Tachycardia Code(s): R00.0 - TACHYCARDIA, UNSPECIFIED Assessment/Plan ASSESSMENT AND PLAN:39 years old male mentally challenged, seizure disorders lives at home admitted with hypoxic respiratory failure on June 22, 2019 secondary to COVID-19, multiple pulmonary infection and bacteremia treated for fungemia, MRSA, ESBL E. coli,, persistent staph epi bacteremia normal echocardiogram completed vancomycin total 6 weeks , now off antibiotic. 1. Hypoxic respiratory failure: due to COVID-19 pneumonia status post intubation and extubation now trach, vent dependent, hypoxia management as per pulmonary consult. At present patient is on trach collar with CPAP 2. H CAP: Completed antibiotic 3. MRSA bacteremia: Completed antibiotic for 6 weeks now afebrile cultures are negative will stop 4. Fungemia completed antibiotic 5. Seizure disorders: Seizure-free on current medications 6. Respiratory insufficiency: Continue vent and bronchodilators 7. Anemia H&H is stable Patient is hemodynamically stable will do well the next lab work-up. Disposition: Patient has no insurance now vent dependent on addiction social worker is working for safe discharge to a long-term acute care. Case discussed with the resident.
[2019-09-12] MEDS ORDERED: PT OWN MED DRAWER 7, Y5N ONE ×3 (09:16→22:01)
[2019-09-12] MEDS: AMINO ACIDS/PROTEIN HYDROLYS 30 ML LIQUID.PKT GT SCH ×2 (09:38→17:43)
[2019-09-12] MEDS: ENOXAPARIN NA (PORCINE) 40 MG/0.4 ML DISP.SYRIN SQ SCH (09:38)
[2019-09-12] MEDS: ASCORBIC ACID 500 MG/5 ML UNIT DOSE CUP GT SCH (09:39)
[2019-09-12] MEDS: POTASSIUM CHLORIDE ORAL LIQUID 20 MEQ/15 ML GT SCH ×2 (09:39→22:02)
[2019-09-12] MEDS: Lacosamide 50 MG/5 ML ORAL SOLUTION UNIT CUPS PO SCH ×2 (09:39→22:03)
[2019-09-12] MEDS: PHENobarbital 20 MG/5 ML UNIT-DOSE CUP NGT SCH ×2 (09:39→22:03)
[2019-09-12] MEDS: CARVEDILOL 6.25 MG TABLET (FP) PO SCH ×2 (09:40→22:04)
[2019-09-12] MEDS: CHOLECALCIFEROL (VIT D3) 400 UNIT (10 MCG) TABLET NR SCH (09:40)
[2019-09-12] MEDS: levETIRAcetam 500 MG/5 ML ORAL SOLUTION (UNIT-DOSE CUPS) NGT SCH ×2 (09:40→22:03)
[2019-09-12] MEDS: NYSTATIN POWDER 100,000 UNITS/GM - 15 GM TOPICAL POWDER TP SCH ×2 (09:41→22:04)
[2019-09-12] MEDS: QUEtiapine FUMARATE 25 MG TABLET PO SCH (09:41)
[2019-09-12] MEDS: ZINC SULFATE 220 MG CAPSULE (FP) GT SCH ×2 (09:41→22:04)
[2019-09-12] MEDS: FAMOTIDINE 40 MG/5 ML ORAL SUSPENSION NGT SCH ×2 (09:41→22:04)
[2019-09-13] MEDS: NITROFURANTOIN MACROCRYSTAL 50 MG CAPSULE (FP) GT SCH ×4 (00:16→17:26)
[2019-09-13] MEDS ORDERED: PT OWN MED DRAWER 7, Y5N ONE ×3 (05:12→22:11)
[2019-09-13] MEDS: TOPIRAMATE 200 MG TABLET GT SCH ×3 (05:19→22:13)
--- NOTE | 2019-09-13 07:44 | PN ---
Progress Note, Physician History of Present Illness: PULMONARY ALERT,ON TRACH COLLAR,TOLERATING WELL - Current Medication List Current Medications: Active Medications Albuterol/Ipratropium (Duoneb -) 1 amp NEB Q6H PRN PRN Reason: SHORTNESS OF BREATH Amino Acids (Prosource No Carb Liquid Pkt) 30 ml GT BID@0800,1730 [facility] Last Admin: 09/12/19 17:43 Dose: 30 ml Documented by: Artificial Tears (Artificial Tears) 1 drop OU Q12H PRN PRN Reason: DRY EYES Last Admin: 09/05/19 09:19 Dose: 1 drop Documented by: Ascorbic Acid (Vitamin C Oral Solution -) 500 mg GT DAILY [facility] Last Admin: 09/12/19 09:39 Dose: 500 mg Documented by: Carvedilol (Coreg -) 6.25 mg PO BID [facility] Last Admin: 09/12/19 22:04 Dose: 6.25 mg Documented by: Cholecalciferol (Vitamin D3 -) 800 unit NR DAILY [facility] Last Admin: 09/12/19 09:40 Dose: 800 unit Documented by: Enoxaparin Sodium (Lovenox -) 40 mg SQ DAILY [facility] Last Admin: 09/12/19 09:38 Dose: 40 mg Documented by: Famotidine (Pepcid) 20 mg NGT BID [facility] Last Admin: 09/12/19 22:04 Dose: 20 mg Documented by: Lacosamide (Vimpat Liquid -) 200 mg PO BID [facility] Last Admin: 09/12/19 22:03 Dose: 200 mg Documented by: Levetiracetam (Keppra Oral Solution -) 1,000 mg NGT BID [facility] Last Admin: 09/12/19 22:03 Dose: 1,000 mg Documented by: Nitrofurantoin Macrocrystals (Macrodantin -) 50 mg GT Q6HPO [facility] Last Admin: 09/13/19 05:19 Dose: 50 mg Documented by: Nystatin (Nystop Powder -) 1 applic TP BID [facility] Last Admin: 09/12/19 22:04 Dose: 1 applic Documented by: Phenobarbital (Phenobarbital Liquid -) 60 mg NGT BID [facility] Last Admin: 09/12/19 22:03 Dose: 60 mg Documented by: Potassium Chloride (Potassium Chloride Oral Liquid) 40 meq GT BID [facility] Last Admin: 09/12/19 22:02 Dose: 40 meq Documented by: Quetiapine Fumarate (Seroquel -) 25 mg PO DAILY [facility] Last Admin: 09/12/19 09:41 Dose: 25 mg Documented by: Topiramate (Topamax -) 200 mg GT TID [facility] Last Admin: 09/13/19 05:19 Dose: 200 mg Documented by: Zinc Sulfate (Orazinc -) 220 mg GT BID [facility] Last Admin: 09/12/19 22:04 Dose: 220 mg Documented by: - Objective Vital Signs: Vital Signs Temperature 98.8 F 09/13/19 06:00 Pulse Rate 100 H 09/13/19 06:00 Respiratory Rate 28 H 09/13/19 06:00 Blood Pressure 124/76 09/13/19 06:00 O2 Sat by Pulse Oximetry (%) 100 09/13/19 04:04 Constitutional: Yes: Well Nourished, Calm Eyes: Yes: WNL HENT: Yes: WNL Neck: Yes: Supple (TRACH) Cardiovascular: Yes: Regular Rate and Rhythm, S1, S2 Respiratory: Yes: Rhonchi (FEW RHONCHI) Gastrointestinal: Yes: Normal Bowel Sounds, Soft Extremities: Yes: WNL Edema: No Labs: CBC, BMP Problem List - Problems (1) COVID-19 Code(s): U07.1 - COVID POSITIVE (2) COVID-19 Code(s): U07.1 - COVID POSITIVE (3) Acute respiratory failure with hypoxia Code(s): J96.01 - ACUTE RESPIRATORY FAILURE WITH HYPOXIA (4) Seizure disorder Code(s): G40.909 - EPILEPSY, UNSP, NOT INTRACTABLE, WITHOUT STATUS EPILEPTICUS (5) Status epilepticus Code(s): G40.901 - EPILEPSY, UNSP, NOT INTRACTABLE, WITH STATUS EPILEPTICUS Assessment/Plan ASSESSMENT AND PLAN: Acute Hypoxic and Hypercapneic Respiratory Failure improved COVID19 Pneumonia E Coli Pneumonia Fungenmia Bacteremia Septic Shock Seizure Disorder Mental Retardation - Ativan PRN - antiepileptics - titrate 02 - trach collar as tolerated - DVT/GI prophylaxis - inhaled bronchodilators - PMV as tolerated - po as tolerated Dr MARTINEZ
--- NOTE | 2019-09-13 08:35 | PN ---
Progress Note, Physician Chief Complaint: Patient remained at baseline History of Present Illness: 39 years old male mentally challenged, seizure disorders lives at home admitted with hypoxic respiratory failure on June 22, 2019 secondary to COVID-19, multiple pulmonary infection and bacteremia treated for fungemia, MRSA, ESBL E. coli,, persistent staph epi bacteremia normal echocardiogram completed vancomycin total 6 weeks , now off antibiotic. - Current Medication List Current Medications: Active Medications Albuterol/Ipratropium (Duoneb -) 1 amp NEB Q6H PRN PRN Reason: SHORTNESS OF BREATH Amino Acids (Prosource No Carb Liquid Pkt) 30 ml GT BID@0800,1730 [facility] Last Admin: 09/12/19 17:43 Dose: 30 ml Documented by: Artificial Tears (Artificial Tears) 1 drop OU Q12H PRN PRN Reason: DRY EYES Last Admin: 09/05/19 09:19 Dose: 1 drop Documented by: Ascorbic Acid (Vitamin C Oral Solution -) 500 mg GT DAILY [facility] Last Admin: 09/12/19 09:39 Dose: 500 mg Documented by: Carvedilol (Coreg -) 6.25 mg PO BID [facility] Last Admin: 09/12/19 22:04 Dose: 6.25 mg Documented by: Cholecalciferol (Vitamin D3 -) 800 unit NR DAILY [facility] Last Admin: 09/12/19 09:40 Dose: 800 unit Documented by: Enoxaparin Sodium (Lovenox -) 40 mg SQ DAILY [facility] Last Admin: 09/12/19 09:38 Dose: 40 mg Documented by: Famotidine (Pepcid) 20 mg NGT BID [facility] Last Admin: 09/12/19 22:04 Dose: 20 mg Documented by: Lacosamide (Vimpat Liquid -) 200 mg PO BID [facility] Last Admin: 09/12/19 22:03 Dose: 200 mg Documented by: Levetiracetam (Keppra Oral Solution -) 1,000 mg NGT BID [facility] Last Admin: 09/12/19 22:03 Dose: 1,000 mg Documented by: Nitrofurantoin Macrocrystals (Macrodantin -) 50 mg GT Q6HPO [facility] Last Admin: 09/13/19 05:19 Dose: 50 mg Documented by: Nystatin (Nystop Powder -) 1 applic TP BID [facility] Last Admin: 09/12/19 22:04 Dose: 1 applic Documented by: Phenobarbital (Phenobarbital Liquid -) 60 mg NGT BID [facility] Last Admin: 09/12/19 22:03 Dose: 60 mg Documented by: Potassium Chloride (Potassium Chloride Oral Liquid) 40 meq GT BID [facility] Last Admin: 09/12/19 22:02 Dose: 40 meq Documented by: Quetiapine Fumarate (Seroquel -) 25 mg PO DAILY [facility] Last Admin: 09/12/19 09:41 Dose: 25 mg Documented by: Topiramate (Topamax -) 200 mg GT TID [facility] Last Admin: 09/13/19 05:19 Dose: 200 mg Documented by: Zinc Sulfate (Orazinc -) 220 mg GT BID [facility] Last Admin: 09/12/19 22:04 Dose: 220 mg Documented by: - Objective Vital Signs: Vital Signs Temperature 98.8 F 09/13/19 06:00 Pulse Rate 98 H 09/13/19 08:31 Respiratory Rate 28 H 09/13/19 06:00 Blood Pressure 124/76 09/13/19 06:00 O2 Sat by Pulse Oximetry (%) 100 09/13/19 08:31 General: Young man status post trach not in distress HEENT mucous membranes moist, no anemia, no jaundice, PERRLA, no nystagmus Neck: Status post trach Chest: bilateral basal rales. CVS: S1-S2 no murmur/gallop/rub Abdomen: PEG tube at place nondistended, soft, bowel sounds present. Extremities: No edema., No Calf tenderness, pulses present POLICY DIRECTOR: Alert nonverbal Labs: CBC, BMP 09/12/19 07:05 09/11/19 17:42 Problem List - Problems (1) Bacteremia Assessment/Plan: Patient grew staph epi on multiple cultures on 6 weeks of IV vancomycin today is day 32nd [on hold since yesterday due to supratherapeutic level] last culture done on August 08 shows no growth so far. Also on empiric meropenem, will follow- up ID recommendations. Code(s): R78.81 - BACTEREMIA (2) Fever Code(s): R50.9 - FEVER, UNSPECIFIED (3) Seizure disorder Code(s): G40.909 - EPILEPSY, UNSP, NOT INTRACTABLE, WITHOUT STATUS EPILEPTICUS (4) Diarrhea Code(s): R19.7 - DIARRHEA, UNSPECIFIED (5) DVT prophylaxis Code(s): Z29.9 - ENCOUNTER FOR PROPHYLACTIC MEASURES, UNSPECIFIED (6) Pneumonia due to COVID-19 virus Code(s): U07.1 - COVID POSITIVE; J12.89 - OTHER VIRAL PNEUMONIA (7) Tachycardia Code(s): R00.0 - TACHYCARDIA, UNSPECIFIED Assessment/Plan ASSESSMENT AND PLAN:39 years old male mentally challenged, seizure disorders lives at home admitted with hypoxic respiratory failure on June 22, 2019 secondary to COVID-19, multiple pulmonary infection and bacteremia treated for fungemia, MRSA, ESBL E. coli,, persistent staph epi bacteremia normal echocardiogram completed vancomycin total 6 weeks , now off antibiotic. 1. Hypoxic respiratory failure: due to COVID-19 pneumonia status post intubation and extubation now trach, vent dependent, hypoxia management as per pulmonary consult. At present patient is on trach collar with CPAP 2. H CAP: Completed antibiotic 3. MRSA bacteremia: Completed antibiotic for 6 weeks now afebrile cultures are negative will stop 4. Fungemia completed antibiotic 5. Seizure disorders: Seizure-free on current medications 6. Respiratory insufficiency: Continue vent and bronchodilators 7. Anemia H&H is stable Patient is hemodynamically stable will do well the next lab work-up. Disposition: Patient has no insurance now vent dependent on social insurance specialist is working for safe discharge to a long-term acute care. Case discussed with the resident.
[2019-09-13] MEDS: AMINO ACIDS/PROTEIN HYDROLYS 30 ML LIQUID.PKT GT SCH ×2 (10:31→17:26)
[2019-09-13] MEDS: Lacosamide 50 MG/5 ML ORAL SOLUTION UNIT CUPS PO SCH ×2 (10:31→22:13)
[2019-09-13] MEDS: POTASSIUM CHLORIDE ORAL LIQUID 20 MEQ/15 ML GT SCH ×2 (10:34→22:12)
[2019-09-13] MEDS: PHENobarbital 20 MG/5 ML UNIT-DOSE CUP NGT SCH ×2 (10:34→22:12)
[2019-09-13] MEDS: levETIRAcetam 500 MG/5 ML ORAL SOLUTION (UNIT-DOSE CUPS) NGT SCH ×2 (10:37→22:13)
[2019-09-13] MEDS: ASCORBIC ACID 500 MG/5 ML UNIT DOSE CUP GT SCH (10:37)
[2019-09-13] MEDS: CARVEDILOL 6.25 MG TABLET (FP) PO SCH ×2 (10:37→22:13)
[2019-09-13] MEDS: FAMOTIDINE 40 MG/5 ML ORAL SUSPENSION NGT SCH ×2 (10:38→22:14)
[2019-09-13] MEDS: ZINC SULFATE 220 MG CAPSULE (FP) GT SCH ×2 (10:38→22:13)
[2019-09-13] MEDS: QUEtiapine FUMARATE 25 MG TABLET PO SCH (10:39)
[2019-09-13] MEDS: ENOXAPARIN NA (PORCINE) 40 MG/0.4 ML DISP.SYRIN SQ SCH (10:39)
[2019-09-13] MEDS: CHOLECALCIFEROL (VIT D3) 400 UNIT (10 MCG) TABLET NR SCH (10:39)
[2019-09-13] MEDS: NYSTATIN POWDER 100,000 UNITS/GM - 15 GM TOPICAL POWDER TP SCH ×2 (10:47→22:13)
[2019-09-14] MEDS: NITROFURANTOIN MACROCRYSTAL 50 MG CAPSULE (FP) GT SCH ×5 (00:14→23:09)
[2019-09-14] MEDS ORDERED: PT OWN MED DRAWER 7, Y5N ONE (05:06)
[2019-09-14] MEDS: TOPIRAMATE 200 MG TABLET GT SCH ×3 (05:09→21:41)
--- NOTE | 2019-09-14 07:53 | PN ---
Teaching Attending Note Name of Resident: Kae Pack ATTENDING PHYSICIAN STATEMENT I saw and evaluated the patient. I reviewed the resident's note and discussed the case with the resident. I agree with the resident's findings and plan as documented. SUBJECTIVE remained stable and afebrile tolerating trach collar, saturating well OBJECTIVE: Vital Signs Temperature 97.6 F 09/14/19 06:00 Pulse Rate 102 H 09/14/19 06:00 Respiratory Rate 30 H 09/14/19 06:00 Blood Pressure 104/70 09/14/19 06:00 O2 Sat by Pulse Oximetry (%) 100 09/14/19 04:55 General: Young man status post trach not in distress HEENT mucous membranes moist, no anemia, no jaundice, PERRLA, no nystagmus Neck: Status post trach Chest: bilateral basal rales. CVS: S1-S2 no murmur/gallop/rub Abdomen: PEG tube at place nondistended, soft, bowel sounds present. 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 coli,, persistent staph epi bacteremia normal echocardiogram completed vancomycin total 6 weeks , now off antibiotic. 1. Hypoxic respiratory failure: due to COVID-19 pneumonia status post intubat ion and extubation now trach, vent dependent, hypoxia management as per pulmonary consult. At present patient is on trach collar with CPAP 2. H CAP: Completed antibiotic 3. MRSA bacteremia: Completed antibiotic for 6 weeks now afebrile cultures are negative will stop 4. Fungemia completed antibiotic 5. Seizure disorders: Seizure-free on current medications 6. Respiratory insufficiency: Continue vent and bronchodilators 7. Anemia H&H is stable Patient is hemodynamically stable will do well the next lab work-up. Disposition: Patient has no insurance now vent dependent on social worker palliative care is working for safe discharge to a long-term acute care. We will follow-up labs tomorrow Case discussed with the resident. Problem List - Problems (1) Bacteremia Code(s): R78.81 - BACTEREMIA (2) Fever Code(s): R50.9 - FEVER, UNSPECIFIED (3) Seizure disorder Code(s): G40.909 - EPILEPSY, UNSP, NOT INTRACTABLE, WITHOUT STATUS EPILEPTICUS (4) Diarrhea Code(s): R19.7 - DIARRHEA, UNSPECIFIED (5) DVT prophylaxis Code(s): Z29.9 - ENCOUNTER FOR PROPHYLACTIC MEASURES, UNSPECIFIED (6) Pneumonia due to COVID-19 virus Code(s): U07.1 - COVID POSITIVE; J12.89 - OTHER VIRAL PNEUMONIA (7) Tachycardia Code(s): R00.0 - TACHYCARDIA, UNSPECIFIED
--- NOTE | 2019-09-14 09:53 | PN ---
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 Speaking well Per RT notes today-Patient received on simv/Cpap of 8 ps 10, 40% Fi02 and Peep +5 with a portex [address]. Patient tracheally suctioned. very minimal secretion present . patient awake and alert pplateau of 20. patient placed on 40% trach collar and Passy alejandro valve. good voice and volume. Sp02 100%, HR 98 On puree/HONEY thick liquid on TSP ONLY, NO cup drinking, per aspiration on MBS via cup. Follow up RD Encourage PO diet and PO supplements of Magic cup/ensure pudding, with nocturnal TF to facilitate weaning from TF.
[2019-09-14] MEDS: PHENobarbital 20 MG/5 ML UNIT-DOSE CUP NGT SCH ×2 (11:41→21:39)
[2019-09-14] MEDS: ZINC SULFATE 220 MG CAPSULE (FP) GT SCH ×2 (11:41→21:40)
[2019-09-14] MEDS: QUEtiapine FUMARATE 25 MG TABLET PO SCH (11:41)
[2019-09-14] MEDS: POTASSIUM CHLORIDE ORAL LIQUID 20 MEQ/15 ML GT SCH ×2 (11:42→21:39)
[2019-09-14] MEDS: CHOLECALCIFEROL (VIT D3) 400 UNIT (10 MCG) TABLET NR SCH (11:42)
[2019-09-14] MEDS: levETIRAcetam 500 MG/5 ML ORAL SOLUTION (UNIT-DOSE CUPS) NGT SCH ×2 (11:42→21:39)
[2019-09-14] MEDS: Lacosamide 50 MG/5 ML ORAL SOLUTION UNIT CUPS PO SCH ×2 (11:42→21:39)
[2019-09-14] MEDS: FAMOTIDINE 40 MG/5 ML ORAL SUSPENSION NGT SCH ×2 (11:43→21:41)
[2019-09-14] MEDS: ENOXAPARIN NA (PORCINE) 40 MG/0.4 ML DISP.SYRIN SQ SCH (11:43)
[2019-09-14] MEDS: CARVEDILOL 6.25 MG TABLET (FP) PO SCH ×2 (11:43→21:40)
[2019-09-14] MEDS: ASCORBIC ACID 500 MG/5 ML UNIT DOSE CUP GT SCH (11:43)
[2019-09-14] MEDS: AMINO ACIDS/PROTEIN HYDROLYS 30 ML LIQUID.PKT GT SCH ×2 (11:43→17:16)
[2019-09-14] MEDS: NYSTATIN POWDER 100,000 UNITS/GM - 15 GM TOPICAL POWDER TP SCH ×2 (11:44→21:40)
--- NOTE | 2019-09-14 12:44 | PN ---
Progress Note (short form) - Note Progress Note: PULMONARY Tolerating trach collar. No fevers. Vital Signs Period Temp Pulse Resp BP Sys/Ortiz Pulse Ox Last 24 Hr 97.6 F-98.9 F 98-105 20-32 104-134/67-79 100-100 Gen: NAD on trach collar Heart: tachycardic, regular Lung: decreased breath sounds at the bases Abd: soft, nontender Ext: no edema CBC, BMP 09/12/19 07:05 09/11/19 17:42 Active Medications Albuterol/Ipratropium (Duoneb -) 1 amp NEB Q6H PRN PRN Reason: SHORTNESS OF BREATH Amino Acids (Prosource No Carb Liquid Pkt) 30 ml GT BID@0800,1730 [facility] Last Admin: 09/14/19 11:43 Dose: 30 ml Documented by: Artificial Tears (Artificial Tears) 1 drop OU Q12H PRN PRN Reason: DRY EYES Last Admin: 09/05/19 09:19 Dose: 1 drop Documented by: Ascorbic Acid (Vitamin C Oral Solution -) 500 mg GT DAILY [facility] Last Admin: 09/14/19 11:43 Dose: 500 mg Documented by: Carvedilol (Coreg -) 6.25 mg PO BID [facility] Last Admin: 09/14/19 11:43 Dose: 6.25 mg Documented by: Cholecalciferol (Vitamin D3 -) 800 unit NR DAILY [facility] Last Admin: 09/14/19 11:42 Dose: 800 unit Documented by: Enoxaparin Sodium (Lovenox -) 40 mg SQ DAILY [facility] Last Admin: 09/14/19 11:43 Dose: 40 mg Documented by: Famotidine (Pepcid) 20 mg NGT BID [facility] Last Admin: 09/14/19 11:43 Dose: 20 mg Documented by: Lacosamide (Vimpat Liquid -) 200 mg PO BID [facility] Last Admin: 09/14/19 11:42 Dose: 200 mg Documented by: Levetiracetam (Keppra Oral Solution -) 1,000 mg NGT BID [facility] Last Admin: 09/14/19 11:42 Dose: 1,000 mg Documented by: Nitrofurantoin Macrocrystals (Macrodantin -) 50 mg GT Q6HPO [facility] Last Admin: 09/14/19 11:46 Dose: 50 mg Documented by: Nystatin (Nystop Powder -) 1 applic TP BID [facility] Last Admin: 09/14/19 11:44 Dose: 1 applic Documented by: Phenobarbital (Phenobarbital Liquid -) 60 mg NGT BID [facility] Last Admin: 09/14/19 11:41 Dose: 60 mg Documented by: Potassium Chloride (Potassium Chloride Oral Liquid) 40 meq GT BID [facility] Last Admin: 09/14/19 11:42 Dose: 40 meq Documented by: Quetiapine Fumarate (Seroquel -) 25 mg PO DAILY [facility] Last Admin: 09/14/19 11:41 Dose: 25 mg Documented by: Topiramate (Topamax -) 200 mg GT TID [facility] Last Admin: 09/14/19 05:09 Dose: 200 mg Documented by: Zinc Sulfate (Orazinc -) 220 mg GT BID [facility] Last Admin: 09/14/19 11:41 Dose: 220 mg Documented by: A/P Acute Hypoxic and Hypercapneic Respiratory Failure COVID19 Pneumonia E Coli Pneumonia Fungenmia Bacteremia Septic Shock Seizure Disorder Mental Retardation - completed antibiotics - continue antiepileptics - monitor urine output, creatinine - trach collar - PO as tolerated - DVT prophylaxis
--- NOTE | 2019-09-14 13:12 | PN ---
Progress Note, Physician History of Present Illness: Called by nurse to adjust free water with feeds. Pt seen and examined. He is more awake and interactive. - Current Medication List Current Medications: Active Medications Albuterol/Ipratropium (Duoneb -) 1 amp NEB Q6H PRN PRN Reason: SHORTNESS OF BREATH Amino Acids (Prosource No Carb Liquid Pkt) 30 ml GT BID@0800,1730 [facility] Last Admin: 09/14/19 11:43 Dose: 30 ml Documented by: Artificial Tears (Artificial Tears) 1 drop OU Q12H PRN PRN Reason: DRY EYES Last Admin: 09/05/19 09:19 Dose: 1 drop Documented by: Ascorbic Acid (Vitamin C Oral Solution -) 500 mg GT DAILY [facility] Last Admin: 09/14/19 11:43 Dose: 500 mg Documented by: Carvedilol (Coreg -) 6.25 mg PO BID [facility] Last Admin: 09/14/19 11:43 Dose: 6.25 mg Documented by: Cholecalciferol (Vitamin D3 -) 800 unit NR DAILY [facility] Last Admin: 09/14/19 11:42 Dose: 800 unit Documented by: Enoxaparin Sodium (Lovenox -) 40 mg SQ DAILY [facility] Last Admin: 09/14/19 11:43 Dose: 40 mg Documented by: Famotidine (Pepcid) 20 mg NGT BID [facility] Last Admin: 09/14/19 11:43 Dose: 20 mg Documented by: Lacosamide (Vimpat Liquid -) 200 mg PO BID [facility] Last Admin: 09/14/19 11:42 Dose: 200 mg Documented by: Levetiracetam (Keppra Oral Solution -) 1,000 mg NGT BID [facility] Last Admin: 09/14/19 11:42 Dose: 1,000 mg Documented by: Nitrofurantoin Macrocrystals (Macrodantin -) 50 mg GT Q6HPO [facility] Last Admin: 09/14/19 11:46 Dose: 50 mg Documented by: Nystatin (Nystop Powder -) 1 applic TP BID [facility] Last Admin: 09/14/19 11:44 Dose: 1 applic Documented by: Phenobarbital (Phenobarbital Liquid -) 60 mg NGT BID [facility] Last Admin: 09/14/19 11:41 Dose: 60 mg Documented by: Potassium Chloride (Potassium Chloride Oral Liquid) 40 meq GT BID [facility] Last Admin: 09/14/19 11:42 Dose: 40 meq Documented by: Quetiapine Fumarate (Seroquel -) 25 mg PO DAILY [facility] Last Admin: 09/14/19 11:41 Dose: 25 mg Documented by: Topiramate (Topamax -) 200 mg GT TID [facility] Last Admin: 09/14/19 05:09 Dose: 200 mg Documented by: Zinc Sulfate (Orazinc -) 220 mg GT BID [facility] Last Admin: 09/14/19 11:41 Dose: 220 mg Documented by: - Objective Vital Signs: Vital Signs Temperature 98.4 F 09/14/19 10:00 Pulse Rate 100 H 09/14/19 11:30 Respiratory Rate 24 H 09/14/19 10:00 Blood Pressure 134/67 09/14/19 10:00 O2 Sat by Pulse Oximetry (%) 100 09/14/19 11:30 Constitutional: Yes: Calm Eyes: Yes: Conjunctiva Clear Cardiovascular: Yes: S1, S2 Respiratory: Yes: Other (trache) Gastrointestinal: Yes: Soft Genitourinary: Yes: Incontinence Musculoskeletal: Yes: WNL Edema: No Neurological: Yes: Other (awake) Labs: CBC, BMP 09/12/19 07:05 09/11/19 17:42 INR, PTT INR 1.20 (0.83-1.09) H 08/21/19 11:30 Problem List - Problems (1) Hypernatremia Code(s): E87.0 - HYPEROSMOLALITY AND HYPERNATREMIA (2) Hypokalemia Code(s): E87.6 - HYPOKALEMIA (3) Acute respiratory failure with hypoxia Code(s): J96.01 - ACUTE RESPIRATORY FAILURE WITH HYPOXIA (4) Bacteremia Code(s): R78.81 - BACTEREMIA Assessment/Plan Current Medications Generic Name Dose Route Start Last Admin Trade Name Freq PRN Reason Stop Dose Admin Albuterol/Ipratropium 1 amp 09/08/19 13:10 Duoneb - NEB Q6H PRN SHORTNESS OF BREATH Amino Acids 30 ml 08/09/19 08:00 09/14/19 11:43 Prosource No Carb Liquid Pkt GT 30 ml BID@0800,1730 [facility] Administration Artificial Tears 1 drop 08/08/19 18:05 09/05/19 09:19 Artificial Tears OU 1 drop Q12H PRN Administration DRY EYES Ascorbic Acid 500 mg 08/09/19 10:00 09/14/19 11:43 Vitamin C Oral Solution - GT 500 mg DAILY [facility] Administration Carvedilol 6.25 mg 08/20/19 09:33 09/14/19 11:43 Coreg - PO 6.25 mg BID [facility] Administration Cholecalciferol 800 unit 08/09/19 10:00 09/14/19 11:42 Vitamin D3 - NR 800 unit DAILY [facility] Administration Enoxaparin Sodium 40 mg 08/15/19 10:00 09/14/19 11:43 Lovenox - SQ 40 mg DAILY [facility] Administration Famotidine 20 mg 08/28/19 22:00 09/14/19 11:43 Pepcid NGT 20 mg BID [facility] Administration Lacosamide 200 mg 08/10/19 22:00 09/14/19 11:42 Vimpat Liquid - PO 200 mg BID [facility] Administration Levetiracetam 1,000 mg 08/10/19 22:00 09/14/19 11:42 Keppra Oral Solution - NGT 1,000 mg BID [facility] Administration Nitrofurantoin Macrocrystals 50 mg 09/06/19 12:00 09/14/19 11:46 Macrodantin - GT 50 mg Q6HPO [facility] Administration Nystatin 1 applic 08/21/19 11:15 09/14/19 11:44 Nystop Powder - TP 1 applic BID [facility] Administration Phenobarbital 60 mg 08/10/19 22:00 09/14/19 11:41 Phenobarbital Liquid - NGT 60 mg BID [facility] Administration Potassium Chloride 40 meq 08/08/19 22:00 09/14/19 11:42 Potassium Chloride Oral Liquid GT 40 meq BID [facility] Administration Quetiapine Fumarate 25 mg 08/18/19 10:45 09/14/19 11:41 Seroquel - PO 25 mg DAILY [facility] Administration Topiramate 200 mg 08/08/19 22:00 09/14/19 05:09 Topamax - GT 200 mg TID [facility] Administration Zinc Sulfate 220 mg 08/08/19 22:00 09/14/19 11:41 Orazinc - GT 220 mg BID [facility] Administration Impression 1. hypokalemia 2. hypernatremia 3. resp failure 4. fungemia 5. covid 19 infection 6. ards 7. developemental delay 8. epilepsy 9. bactermia 10. resp acidosis with compensatory met alk Plan - check cmp - cont feeds with flushes for now - swallow follow up - can d/c bolus free water supps - discussed with nurse - monitor sodium
--- NOTE | 2019-09-14 14:13 | PN ---
Physical Exam: SUBJECTIVE: Patient seen and examined. No acute events overnight. OBJECTIVE: Vital Signs Temperature 98.4 F 09/14/19 10:00 Pulse Rate 100 H 09/14/19 11:30 Respiratory Rate 24 H 09/14/19 10:00 Blood Pressure 134/67 09/14/19 10:00 O2 Sat by Pulse Oximetry (%) 100 09/14/19 11:30 GENERAL: The patient is awake, alert, nonverbal, follows commands EYES: PERRLA, EOMI EENT:moist mucous membranes. NECK: Trach in place LUNGS: Breath sounds equal, clear to auscultation bilaterally HEART: tachycardic, regular, S1, S2 ABDOMEN: Soft, nontender, nondistended, Percutaneous G tube in place, clean dry and intact EXTREMITIES: 2+ pulses, warm, well-perfused, no edema. Active Medications Generic Name Dose Route Start Last Admin Trade Name Freq PRN Reason Stop Dose Admin Albuterol/Ipratropium 1 amp 09/08/19 13:10 Duoneb - NEB Q6H PRN SHORTNESS OF BREATH Amino Acids 30 ml 08/09/19 08:00 09/14/19 11:43 Prosource No Carb Liquid Pkt GT 30 ml BID@0800,1730 [facility] Administration Artificial Tears 1 drop 08/08/19 18:05 09/05/19 09:19 Artificial Tears OU 1 drop Q12H PRN Administration DRY EYES Ascorbic Acid 500 mg 08/09/19 10:00 09/14/19 11:43 Vitamin C Oral Solution - GT 500 mg DAILY [facility] Administration Carvedilol 6.25 mg 08/20/19 09:33 09/14/19 11:43 Coreg - PO 6.25 mg BID [facility] Administration Cholecalciferol 800 unit 08/09/19 10:00 09/14/19 11:42 Vitamin D3 - NR 800 unit DAILY [facility] Administration Enoxaparin Sodium 40 mg 08/15/19 10:00 09/14/19 11:43 Lovenox - SQ 40 mg DAILY [facility] Administration Famotidine 20 mg 08/28/19 22:00 09/14/19 11:43 Pepcid NGT 20 mg BID [facility] Administration Lacosamide 200 mg 08/10/19 22:00 09/14/19 11:42 Vimpat Liquid - PO 200 mg BID [facility] Administration Levetiracetam 1,000 mg 08/10/19 22:00 09/14/19 11:42 Keppra Oral Solution - NGT 1,000 mg BID [facility] Administration Nitrofurantoin Macrocrystals 50 mg 09/06/19 12:00 09/14/19 11:46 Macrodantin - GT 50 mg Q6HPO [facility] Administration Nystatin 1 applic 08/21/19 11:15 09/14/19 11:44 Nystop Powder - TP 1 applic BID [facility] Administration Phenobarbital 60 mg 08/10/19 22:00 09/14/19 11:41 Phenobarbital Liquid - NGT 60 mg BID [facility] Administration Potassium Chloride 40 meq 08/08/19 22:00 09/14/19 11:42 Potassium Chloride Oral Liquid GT 40 meq BID [facility] Administration Quetiapine Fumarate 25 mg 08/18/19 10:45 09/14/19 11:41 Seroquel - PO 25 mg DAILY [facility] Administration Topiramate 200 mg 08/08/19 22:00 09/14/19 13:39 Topamax - GT 200 mg TID [facility] Administration Zinc Sulfate 220 mg 08/08/19 22:00 09/14/19 11:41 Orazinc - GT 220 mg BID [facility] Administration ASSESSMENT/PLAN: Patient is a 39 y/o M with PMH Mental Retardation and epilepsy who presented to ED initially with SOB and hypoxia requiring intubation, admitted to hospital for hypoxic respiratory failure 2/2 to [facility]-19. Hospital course complicated by bacteremia, fungemia, MRSA PNA, now with recurrent fever. #Acute Resp Failure 2/2 COVID-19 -s/p trach, convalescent plasma, tocilizumab -on CPAP vent settings. spontaneous breathing trials as tolerated -Pulm on board #Fever -persistent leukocytosis -Sputum Cx (08/21/2019) pos for MRSA, Dapto sensitive and E. coli, carbapenem sensitive -Blood cultures, urine cultures, cxr negative -ID on board. F/u Recs. Presently observing off Abx -Nephro on board #Transaminitis -persistent since admission -as of yet, no clear source identified -per GI, pt will potentially require a biopsy #Hypernatremia - resolved - cont feeds with flushes for now - swallow follow up - can d/c bolus free water supps - Nephrology (Dr. Samarneh) consulted. REcommendations appreciated. #Tachycardia -c/w Coreg -c/w low-dose seroquel to treat potential contribution of anxiety #Epilepsy -c/w lorazepam prn, levetiracitam, phenobarbitol, lacosamide, topiramate #FEN -not on any standing fluids -electrolytes wnl, routine bmp monitoring -Tube feed Jevity 1.5, and trial of Dysphagia puree diet with thickened liquids #Prophylaxis -Lovenox 40mg sq daily #Disposition -full code - pending SNF placement Visit type - Emergency Visit Emergency Visit: Yes ED Registration Date: 06/22/19 Care time: The patient presented to the Emergency Department on the above date and was hospitalized for further evaluation of their emergent condition. - New Patient This patient is new to me today: No - Critical Care Critical Care patient: No ATTENDING PHYSICIAN STATEMENT I saw and evaluated the patient. I reviewed the resident's note and discussed the case with the resident. I agree with the resident's findings and plan as documented. SUBJECTIVE: OBJECTIVE: ASSESSMENT AND PLAN:
[2019-09-14 18:27] LABS: BLOOD UREA NITROGEN 10.9 mg/dL (7-18); CREATININE 0.5 mg/dL (0.55-1.3); POTASSIUM 4.7 mmol/L (3.5-5.1)
[2019-09-15] MEDS: NITROFURANTOIN MACROCRYSTAL 50 MG CAPSULE (FP) GT SCH ×4 (05:09→23:10)
[2019-09-15] MEDS: TOPIRAMATE 200 MG TABLET GT SCH ×3 (05:09→21:38)
[2019-09-15 07:42] LABS: HEMATOCRIT 30.8 % (35.4-49); HEMOGLOBIN 9.8 GM/dL (11.7-16.9); MCH 27.5 pg (25.7-33.7); MCHC 31.7 g/dl (32.0-35.9); MEAN CELL VOLUME 86.8 fl (80-96); MEAN PLT VOLUME 10.1 fl (7.5-11.1); PLATELET COUNT 274 K/MM3 (134-434); RBC 3.54 M/mm3 (4.00-5.60); RDW 16.9 % (11.9-15.9); WHITE BLOOD COUNT 10.8 K/mm3 (4.0-10.0)
[2019-09-15 08:15] LABS: ALBUMIN 2.5 g/dl (3.4-5.0); CALCIUM 9.3 mg/dL (8.5-10.1); CREATININE 0.4 mg/dL (0.55-1.3); MAGNESIUM 1.8 mg/dL (1.8-2.4); PHOSPHOROUS 5.4 mg/dL (2.5-4.9); POTASSIUM 3.7 mmol/L (3.5-5.1)
[2019-09-15 08:22] LABS: BILIRUBIN,TOTAL 0.2 mg/dL (0.2-1)
[2019-09-15] MEDS ORDERED: PT OWN MED DRAWER 7, Y5N ONE ×2 (09:24→21:36)
[2019-09-15] MEDS: CARVEDILOL 6.25 MG TABLET (FP) PO SCH ×2 (09:30→21:38)
[2019-09-15] MEDS: AMINO ACIDS/PROTEIN HYDROLYS 30 ML LIQUID.PKT GT SCH ×2 (09:30→17:29)
[2019-09-15] MEDS: ENOXAPARIN NA (PORCINE) 40 MG/0.4 ML DISP.SYRIN SQ SCH (09:31)
[2019-09-15] MEDS: levETIRAcetam 500 MG/5 ML ORAL SOLUTION (UNIT-DOSE CUPS) NGT SCH ×2 (09:31→21:37)
[2019-09-15] MEDS: NYSTATIN POWDER 100,000 UNITS/GM - 15 GM TOPICAL POWDER TP SCH ×2 (09:31→21:39)
[2019-09-15] MEDS: POTASSIUM CHLORIDE ORAL LIQUID 20 MEQ/15 ML GT SCH ×2 (09:32→21:38)
[2019-09-15] MEDS: QUEtiapine FUMARATE 25 MG TABLET PO SCH (09:32)
[2019-09-15] MEDS: FAMOTIDINE 40 MG/5 ML ORAL SUSPENSION NGT SCH ×2 (09:32→21:39)
[2019-09-15] MEDS: ASCORBIC ACID 500 MG/5 ML UNIT DOSE CUP GT SCH (09:32)
[2019-09-15] MEDS: ZINC SULFATE 220 MG CAPSULE (FP) GT SCH ×2 (09:32→21:39)
[2019-09-15] MEDS: PHENobarbital 20 MG/5 ML UNIT-DOSE CUP NGT SCH ×2 (09:32→21:39)
[2019-09-15] MEDS: Lacosamide 50 MG/5 ML ORAL SOLUTION UNIT CUPS PO SCH ×2 (09:33→21:39)
[2019-09-15] MEDS: CHOLECALCIFEROL (VIT D3) 400 UNIT (10 MCG) TABLET NR SCH (09:33)
--- NOTE | 2019-09-15 10:53 | PN ---
Progress Note (short form) - Note Progress Note: PULMONARY Tolerating trach collar/PMV. No fevers. Vital Signs Period Temp Pulse Resp BP Sys/Ortiz Pulse Ox Last 24 Hr 97.8 F-99 F 93-108 20-29 126-138/75-88 96-100 Gen: NAD on trach collar Heart: tachycardic, regular Lung: decreased breath sounds at the bases Abd: soft, nontender Ext: no edema CBC, BMP 09/15/19 07:03 09/15/19 07:03 Active Medications Albuterol/Ipratropium (Duoneb -) 1 amp NEB Q6H PRN PRN Reason: SHORTNESS OF BREATH Amino Acids (Prosource No Carb Liquid Pkt) 30 ml GT BID@0800,1730 [facility] Last Admin: 09/15/19 09:30 Dose: 30 ml Documented by: Artificial Tears (Artificial Tears) 1 drop OU Q12H PRN PRN Reason: DRY EYES Last Admin: 09/05/19 09:19 Dose: 1 drop Documented by: Ascorbic Acid (Vitamin C Oral Solution -) 500 mg GT DAILY [facility] Last Admin: 09/15/19 09:32 Dose: 500 mg Documented by: Carvedilol (Coreg -) 6.25 mg PO BID [facility] Last Admin: 09/15/19 09:30 Dose: 6.25 mg Documented by: Cholecalciferol (Vitamin D3 -) 800 unit NR DAILY [facility] Last Admin: 09/15/19 09:33 Dose: 800 unit Documented by: Enoxaparin Sodium (Lovenox -) 40 mg SQ DAILY [facility] Last Admin: 09/15/19 09:31 Dose: 40 mg Documented by: Famotidine (Pepcid) 20 mg NGT BID [facility] Last Admin: 09/15/19 09:32 Dose: 20 mg Documented by: Lacosamide (Vimpat Liquid -) 200 mg PO BID [facility] Last Admin: 09/15/19 09:33 Dose: 200 mg Documented by: Levetiracetam (Keppra Oral Solution -) 1,000 mg NGT BID [facility] Last Admin: 09/15/19 09:31 Dose: 1,000 mg Documented by: Nitrofurantoin Macrocrystals (Macrodantin -) 50 mg GT Q6HPO [facility] Last Admin: 09/15/19 05:09 Dose: 50 mg Documented by: Nystatin (Nystop Powder -) 1 applic TP BID [facility] Last Admin: 09/15/19 09:31 Dose: 1 applic Documented by: Phenobarbital (Phenobarbital Liquid -) 60 mg NGT BID [facility] Last Admin: 09/15/19 09:32 Dose: 60 mg Documented by: Potassium Chloride (Potassium Chloride Oral Liquid) 40 meq GT BID [facility] Last Admin: 09/15/19 09:32 Dose: 40 meq Documented by: Quetiapine Fumarate (Seroquel -) 25 mg PO DAILY [facility] Last Admin: 09/15/19 09:32 Dose: 25 mg Documented by: Topiramate (Topamax -) 200 mg GT TID [facility] Last Admin: 09/15/19 05:09 Dose: 200 mg Documented by: Zinc Sulfate (Orazinc -) 220 mg GT BID [facility] Last Admin: 09/15/19 09:32 Dose: 220 mg Documented by: A/P Acute Hypoxic and Hypercapneic Respiratory Failure COVID19 Pneumonia E Coli Pneumonia Fungemia Bacteremia Septic Shock Seizure Disorder Mental Retardation - completed antibiotics - continue antiepileptics - monitor urine output, creatinine - trach collar - PO as tolerated - DVT prophylaxis
--- NOTE | 2019-09-15 11:47 | PN ---
Progress Note, [employer] - Note Progress Note: Selected Entries 09/11/19 09/12/19 09/13/19 18:49 22:11 14:00 Breakfast 0 Diet Tolerated Well Well Well Supper 75% 75% Temperature Pulse Rate Blood Pressure 09/13/19 09/14/19 09/14/19 18:00 02:00 06:00 Breakfast Diet Tolerated Well Supper 25% Temperature 98.1 F 97.6 F Pulse Rate 100 H 102 H Blood Pressure 115/72 104/70 09/14/19 08:51 Breakfast Diet Tolerated Supper Temperature Pulse Rate 98 H Blood Pressure Laboratory Tests 09/10/19 07:20 WBC 10.4 H Selected Entries 09/14/19 09/14/19 09/14/19 02:00 06:00 08:51 Breakfast Diet Tolerated Lunch Temperature 98.1 F 97.6 F Pulse Rate 100 H 102 H 98 H Blood Pressure 115/72 104/70 09/14/19 09/14/19 09/14/19 10:00 11:30 14:00 Breakfast Diet Tolerated Lunch Temperature 98.4 F 98.5 F Pulse Rate 103 H 100 H 105 H Blood Pressure 134/67 128/80 09/14/19 09/14/19 09/14/19 15:00 16:28 18:00 Breakfast 50% Diet Tolerated Well Lunch 50% Temperature 97.8 F Pulse Rate 100 H 101 H Blood Pressure 138/88 09/14/19 09/14/19 09/15/19 20:04 22:00 01:42 Breakfast Diet Tolerated Lunch Temperature 99 F 98.5 F Pulse Rate 108 H 104 H 94 H Blood Pressure 129/75 129/81 09/15/19 09/15/19 09/15/19 05:00 08:40 09:00 Breakfast Diet Tolerated Lunch Temperature 97.8 F 97.9 F Pulse Rate 95 H 96 H 93 H Blood Pressure 126/79 134/87 09/15/19 11:21 Breakfast Diet Tolerated Lunch Temperature Pulse Rate 106 H Blood Pressure Laboratory Tests 09/15/19 07:03 WBC 10.8 H Pt has been tolerating trach collar/CPAP Pt able to swallow pudding and applesa uce with no coughing or aspiration events. Speaking well Per RT notes today-Patient received on simv/Cpap of 8 ps 10, 40% Fi02 and Peep +5 with a portex [address]. Patient tracheally suctioned. very minimal secretion present . patient awake and alert pplateau of 20. patient placed on 40% trach collar and Passy alejandro valve. good voice and volume. Sp02 100%, HR 98 On puree/HONEY thick liquid on TSP ONLY, NO cup drinking, per aspiration on MBS via cup. SUGGEST- Follow up RD Encourage PO diet and PO supplements of Magic cup/ensure pudding, with nocturnal TF to facilitate weaning from TF.
--- NOTE | 2019-09-15 13:32 | PN ---
Physical Exam: SUBJECTIVE: Patient seen and examined OBJECTIVE: Vital Signs Temperature 97.9 F 09/15/19 09:00 Pulse Rate 106 H 09/15/19 11:21 Respiratory Rate 29 H 09/15/19 10:00 Blood Pressure 134/87 09/15/19 09:00 O2 Sat by Pulse Oximetry (%) 100 09/15/19 11:21 GENERAL: The patient is awake, alert, nonverbal, follows commands EYES: PERRLA, EOMI EENT:moist mucous membranes. NECK: Trach in place LUNGS: Breath sounds equal, clear to auscultation bilaterally HEART: tachycardic, regular, S1, S2 ABDOMEN: Soft, nontender, nondistended, Percutaneous G tube in place, clean dry and intact EXTREMITIES: 2+ pulses, warm, well-perfused, no edema. Laboratory Results - last 24 hr 09/14/19 09/15/19 09/15/19 17:20 07:03 07:03 WBC 10.8 H RBC 3.54 L Hgb 9.8 L Hct 30.8 L MCV 86.8 MCH 27.5 MCHC 31.7 L RDW 16.9 H Plt Count 274 MPV 10.1 Sodium 141 141 Potassium 4.7 3.7 Chloride 110 H 109 H Carbon Dioxide 22 22 Anion Gap 10 10 BUN 10.9 11.0 Creatinine 0.5 L 0.4 L Est GFR (CKD-EPI)AfAm 159.33 174.63 Est GFR (CKD-EPI)NonAf 137.47 150.67 Random Glucose 88 124 H Calcium 9.0 9.3 Phosphorus 5.4 H Magnesium 1.8 Total Bilirubin 0.2 AST 30 ALT 73 H Alkaline Phosphatase 123 H Total Protein 6.0 L Albumin 2.5 L Active Medications Generic Name Dose Route Start Last Admin Trade Name Freq PRN Reason Stop Dose Admin Albuterol/Ipratropium 1 amp 09/08/19 13:10 Duoneb - NEB Q6H PRN SHORTNESS OF BREATH Amino Acids 30 ml 08/09/19 08:00 09/15/19 09:30 Prosource No Carb Liquid Pkt GT 30 ml BID@0800,1730 [facility] Administration Artificial Tears 1 drop 08/08/19 18:05 09/05/19 09:19 Artificial Tears OU 1 drop Q12H PRN Administration DRY EYES Ascorbic Acid 500 mg 08/09/19 10:00 09/15/19 09:32 Vitamin C Oral Solution - GT 500 mg DAILY [facility] Administration Carvedilol 6.25 mg 08/20/19 09:33 09/15/19 09:30 Coreg - PO 6.25 mg BID [facility] Administration Cholecalciferol 800 unit 08/09/19 10:00 09/15/19 09:33 Vitamin D3 - NR 800 unit DAILY [facility] Administration Enoxaparin Sodium 40 mg 08/15/19 10:00 09/15/19 09:31 Lovenox - SQ 40 mg DAILY [facility] Administration Famotidine 20 mg 08/28/19 22:00 09/15/19 09:32 Pepcid NGT 20 mg BID [facility] Administration Lacosamide 200 mg 08/10/19 22:00 09/15/19 09:33 Vimpat Liquid - PO 200 mg BID [facility] Administration Levetiracetam 1,000 mg 08/10/19 22:00 09/15/19 09:31 Keppra Oral Solution - NGT 1,000 mg BID [facility] Administration Nitrofurantoin Macrocrystals 50 mg 09/06/19 12:00 09/15/19 11:51 Macrodantin - GT 50 mg Q6HPO [facility] Administration Nystatin 1 applic 08/21/19 11:15 09/15/19 09:31 Nystop Powder - TP 1 applic BID [facility] Administration Phenobarbital 60 mg 08/10/19 22:00 09/15/19 09:32 Phenobarbital Liquid - NGT 60 mg BID [facility] Administration Potassium Chloride 40 meq 08/08/19 22:00 09/15/19 09:32 Potassium Chloride Oral Liquid GT 40 meq BID [facility] Administration Quetiapine Fumarate 25 mg 08/18/19 10:45 09/15/19 09:32 Seroquel - PO 25 mg DAILY [facility] Administration Topiramate 200 mg 08/08/19 22:00 09/15/19 13:23 Topamax - GT 200 mg TID [facility] Administration Zinc Sulfate 220 mg 08/08/19 22:00 09/15/19 09:32 Orazinc - GT 220 mg BID [facility] Administration ASSESSMENT/PLAN: Patient is a 39 y/o M with PMH Mental Retardation and epilepsy who presented to ED initially with SOB and hypoxia requiring intubation, admitted to hospital for hypoxic respiratory failure 2/2 to covid-19. Hospital course complicated by bacteremia, fungemia, MRSA PNA, now with recurrent fever. #Acute Resp Failure 2/2 COVID-19 -s/p trach, convalescent plasma, tocilizumab -on CPAP vent settings. spontaneous breathing trials as tolerated -Pulm on board #Fever -persistent leukocytosis -Sputum Cx (08/21/2019) pos for MRSA, Dapto sensitive and E. coli, carbapenem sensitive -Blood cultures, urine cultures, cxr negative -ID on board. F/u Recs. Presently observing off Abx -Nephro on board #Transaminitis -persistent since admission -as of yet, no clear source identified -per GI, pt will potentially require a biopsy #Hypernatremia - resolved - cont feeds with flushes for now - swallow follow up - can d/c bolus free water - Nephrology (Dr. Lockhart) consulted. REcommendations appreciated. #Tachycardia -c/w Coreg -c/w low-dose seroquel to treat potential contribution of anxiety #Epilepsy -c/w lorazepam prn, levetiracitam, phenobarbitol, lacosamide, topiramate #FEN -not on any standing fluids -electrolytes wnl, routine bmp monitoring -Dysphagia puree diet with thickened liquids and nocturnal TF #Prophylaxis -Lovenox 40mg sq daily #Disposition -full code - pending SNF placement Visit type - Emergency Visit Emergency Visit: Yes ED Registration Date: 06/22/19 Care time: The patient presented to the Emergency Department on the above date and was hospitalized for further evaluation of their emergent condition. - New Patient This patient is new to me today: No - Critical Care Critical Care patient: No ATTENDING PHYSICIAN STATEMENT I saw and evaluated the patient. I reviewed the resident's note and discussed the case with the resident. I agree with the resident's findings and plan as documented. SUBJECTIVE: OBJECTIVE: ASSESSMENT AND PLAN:
--- NOTE | 2019-09-15 16:25 | PN ---
Progress Note, Physician History of Present Illness: Pt appears comfortable. - Current Medication List Current Medications: Active Medications Albuterol/Ipratropium (Duoneb -) 1 amp NEB Q6H PRN PRN Reason: SHORTNESS OF BREATH Amino Acids (Prosource No Carb Liquid Pkt) 30 ml GT BID@0800,1730 [facility] Last Admin: 09/15/19 09:30 Dose: 30 ml Documented by: Artificial Tears (Artificial Tears) 1 drop OU Q12H PRN PRN Reason: DRY EYES Last Admin: 09/05/19 09:19 Dose: 1 drop Documented by: Ascorbic Acid (Vitamin C Oral Solution -) 500 mg GT DAILY [facility] Last Admin: 09/15/19 09:32 Dose: 500 mg Documented by: Carvedilol (Coreg -) 6.25 mg PO BID [facility] Last Admin: 09/15/19 09:30 Dose: 6.25 mg Documented by: Cholecalciferol (Vitamin D3 -) 800 unit NR DAILY [facility] Last Admin: 09/15/19 09:33 Dose: 800 unit Documented by: Enoxaparin Sodium (Lovenox -) 40 mg SQ DAILY [facility] Last Admin: 09/15/19 09:31 Dose: 40 mg Documented by: Famotidine (Pepcid) 20 mg NGT BID [facility] Last Admin: 09/15/19 09:32 Dose: 20 mg Documented by: Lacosamide (Vimpat Liquid -) 200 mg PO BID [facility] Last Admin: 09/15/19 09:33 Dose: 200 mg Documented by: Levetiracetam (Keppra Oral Solution -) 1,000 mg NGT BID [facility] Last Admin: 09/15/19 09:31 Dose: 1,000 mg Documented by: Nitrofurantoin Macrocrystals (Macrodantin -) 50 mg GT Q6HPO [facility] Last Admin: 09/15/19 11:51 Dose: 50 mg Documented by: Nystatin (Nystop Powder -) 1 applic TP BID [facility] Last Admin: 09/15/19 09:31 Dose: 1 applic Documented by: Phenobarbital (Phenobarbital Liquid -) 60 mg NGT BID [facility] Last Admin: 09/15/19 09:32 Dose: 60 mg Documented by: Potassium Chloride (Potassium Chloride Oral Liquid) 40 meq GT BID [facility] Last Admin: 09/15/19 09:32 Dose: 40 meq Documented by: Quetiapine Fumarate (Seroquel -) 25 mg PO DAILY [facility] Last Admin: 09/15/19 09:32 Dose: 25 mg Documented by: Topiramate (Topamax -) 200 mg GT TID [facility] Last Admin: 09/15/19 13:23 Dose: 200 mg Documented by: Zinc Sulfate (Orazinc -) 220 mg GT BID [facility] Last Admin: 09/15/19 09:32 Dose: 220 mg Documented by: - Objective Vital Signs: Vital Signs Temperature 97.8 F 09/15/19 13:00 Pulse Rate 98 H 09/15/19 14:19 Respiratory Rate 23 H 09/15/19 13:00 Blood Pressure 130/85 09/15/19 13:00 O2 Sat by Pulse Oximetry (%) 100 09/15/19 14:19 Constitutional: Yes: Calm Eyes: Yes: Conjunctiva Clear HENT: Yes: Atraumatic Neck: Yes: Supple Cardiovascular: Yes: S1, S2 Respiratory: Yes: Other (trache collar) Gastrointestinal: Yes: Soft Genitourinary: Yes: Incontinence Edema: No Integumentary: Yes: WNL Neurological: Yes: Pre-Existing Deficit Labs: CBC, BMP 09/15/19 07:03 09/15/19 07:03 INR, PTT INR 1.20 (0.83-1.09) H 08/21/19 11:30 Problem List - Problems (1) Hypernatremia Code(s): E87.0 - HYPEROSMOLALITY AND HYPERNATREMIA (2) Hypokalemia Code(s): E87.6 - HYPOKALEMIA (3) Acute respiratory failure with hypoxia Code(s): J96.01 - ACUTE RESPIRATORY FAILURE WITH HYPOXIA (4) Bacteremia Code(s): R78.81 - BACTEREMIA Assessment/Plan Current Medications Generic Name Dose Route Start Last Admin Trade Name Freq PRN Reason Stop Dose Admin Albuterol/Ipratropium 1 amp 09/08/19 13:10 Duoneb - NEB Q6H PRN SHORTNESS OF BREATH Amino Acids 30 ml 08/09/19 08:00 09/15/19 09:30 Prosource No Carb Liquid Pkt GT 30 ml BID@0800,1730 [facility] Administration Artificial Tears 1 drop 08/08/19 18:05 09/05/19 09:19 Artificial Tears OU 1 drop Q12H PRN Administration DRY EYES Ascorbic Acid 500 mg 08/09/19 10:00 09/15/19 09:32 Vitamin C Oral Solution - GT 500 mg DAILY [facility] Administration Carvedilol 6.25 mg 08/20/19 09:33 09/15/19 09:30 Coreg - PO 6.25 mg BID [facility] Administration Cholecalciferol 800 unit 08/09/19 10:00 09/15/19 09:33 Vitamin D3 - NR 800 unit DAILY [facility] Administration Enoxaparin Sodium 40 mg 08/15/19 10:00 09/15/19 09:31 Lovenox - SQ 40 mg DAILY [facility] Administration Famotidine 20 mg 08/28/19 22:00 09/15/19 09:32 Pepcid NGT 20 mg BID [facility] Administration Lacosamide 200 mg 08/10/19 22:00 09/15/19 09:33 Vimpat Liquid - PO 200 mg BID [facility] Administration Levetiracetam 1,000 mg 08/10/19 22:00 09/15/19 09:31 Keppra Oral Solution - NGT 1,000 mg BID [facility] Administration Nitrofurantoin Macrocrystals 50 mg 09/06/19 12:00 09/15/19 11:51 Macrodantin - GT 50 mg Q6HPO [facility] Administration Nystatin 1 applic 08/21/19 11:15 09/15/19 09:31 Nystop Powder - TP 1 applic BID [facility] Administration Phenobarbital 60 mg 08/10/19 22:00 09/15/19 09:32 Phenobarbital Liquid - NGT 60 mg BID [facility] Administration Potassium Chloride 40 meq 08/08/19 22:00 09/15/19 09:32 Potassium Chloride Oral Liquid GT 40 meq BID [facility] Administration Quetiapine Fumarate 25 mg 08/18/19 10:45 09/15/19 09:32 Seroquel - PO 25 mg DAILY [facility] Administration Topiramate 200 mg 08/08/19 22:00 09/15/19 13:23 Topamax - GT 200 mg TID [facility] Administration Zinc Sulfate 220 mg 08/08/19 22:00 09/15/19 09:32 Orazinc - GT 220 mg BID [facility] Administration Impression 1. hypokalemia 2. hypernatremia 3. resp failure 4. fungemia 5. covid 19 infection 6. ards 7. developemental delay 8. epilepsy 9. bactermia 10. resp acidosis with compensatory met alk Plan - sodium is stable - cont to monitor lytes - cont feeds - swallow follow up - can d/c bolus free water supps - will follow prn
[2019-09-16] MEDS: TOPIRAMATE 200 MG TABLET GT SCH ×2 (05:11→13:45)
[2019-09-16] MEDS: NITROFURANTOIN MACROCRYSTAL 50 MG CAPSULE (FP) GT SCH ×2 (05:11→11:45)
--- NOTE | 2019-09-16 08:21 | PN ---
Physical Exam: SUBJECTIVE: Patient seen and examined OBJECTIVE: Vital Signs Period Temp Pulse Resp BP Sys/Ortiz Pulse Ox Last 24 Hr 97.5 F-99 F 92-114 22-29 120-135/69-87 100-100 GENERAL: The patient is awake, alert, and fully oriented, in no acute distress. HEAD: Normal with no signs of trauma. EYES: PERRL, extraocular movements intact, sclera anicteric, conjunctiva clear. No ptosis. ENT: Ears normal, nares patent, oropharynx clear without exudates, moist mucous membranes. NECK: Trachea midline, full range of motion, supple. LUNGS: Breath sounds equal, clear to auscultation bilaterally, no wheezes, no crackles, no accessory muscle use. HEART: Regular rate and rhythm, S1, S2 without murmur, rub or gallop. ABDOMEN: Soft, nontender, nondistended, normoactive bowel sounds, no guarding, no rebound, no hepatosplenomegaly, no masses. EXTREMITIES: 2+ pulses, warm, well-perfused, no edema. NEUROLOGICAL: Cranial nerves II through XII grossly intact. Normal speech, gait not observed. PSYCH: Normal mood, normal affect. SKIN: Warm, dry, normal turgor, no rashes or lesions noted Laboratory Results - last 24 hr 09/15/19 07:03 Total Bilirubin 0.2 Active Medications Generic Name Dose Route Start Last Admin Trade Name Freq PRN Reason Stop Dose Admin Albuterol/Ipratropium 1 amp 09/08/19 13:10 Duoneb - NEB Q6H PRN SHORTNESS OF BREATH Amino Acids 30 ml 08/09/19 08:00 09/15/19 17:29 Prosource No Carb Liquid Pkt GT 30 ml BID@0800,1730 [facility] Administration Artificial Tears 1 drop 08/08/19 18:05 09/05/19 09:19 Artificial Tears OU 1 drop Q12H PRN Administration DRY EYES Ascorbic Acid 500 mg 08/09/19 10:00 09/15/19 09:32 Vitamin C Oral Solution - GT 500 mg DAILY [facility] Administration Carvedilol 6.25 mg 08/20/19 09:33 09/15/19 21:38 Coreg - PO 6.25 mg BID [facility] Administration Cholecalciferol 800 unit 08/09/19 10:00 07/14/20 09:33 Vitamin D3 - NR 800 unit DAILY [facility] Administration Enoxaparin Sodium 40 mg 08/15/19 10:00 09/15/19 09:31 Lovenox - SQ 40 mg DAILY [facility] Administration Famotidine 20 mg 08/28/19 22:00 09/15/19 21:39 Pepcid NGT 20 mg BID [facility] Administration Lacosamide 200 mg 08/10/19 22:00 09/15/19 21:39 Vimpat Liquid - PO 200 mg BID [facility] Administration Levetiracetam 1,000 mg 08/10/19 22:00 09/15/19 21:37 Keppra Oral Solution - NGT 1,000 mg BID [facility] Administration Nitrofurantoin Macrocrystals 50 mg 09/06/19 12:00 09/16/19 05:11 Macrodantin - GT 50 mg Q6HPO [facility] Administration Nystatin 1 applic 08/21/19 11:15 09/15/19 21:39 Nystop Powder - TP 1 applic BID [facility] Administration Phenobarbital 60 mg 08/10/19 22:00 09/15/19 21:39 Phenobarbital Liquid - NGT 60 mg BID [facility] Administration Potassium Chloride 40 meq 08/08/19 22:00 09/15/19 21:38 Potassium Chloride Oral Liquid GT 40 meq BID [facility] Administration Quetiapine Fumarate 25 mg 08/18/19 10:45 09/15/19 09:32 Seroquel - PO 25 mg DAILY [facility] Administration Topiramate 200 mg 08/08/19 22:00 09/16/19 05:11 Topamax - GT 200 mg TID [facility] Administration Zinc Sulfate 220 mg 08/08/19 22:00 09/15/19 21:39 Orazinc - GT 220 mg BID [facility] Administration ASSESSMENT/PLAN: ATTENDING PHYSICIAN STATEMENT I saw and evaluated the patient. I reviewed the resident's note and discussed the case with the resident. I agree with the resident's findings and plan as documented. SUBJECTIVE: OBJECTIVE: ASSESSMENT AND PLAN:
[2019-09-16 08:33] LABS: BLOOD UREA NITROGEN 10.4 mg/dL (7-18); CALCIUM 8.8 mg/dL (8.5-10.1); CREATININE 0.4 mg/dL (0.55-1.3); MAGNESIUM 1.9 mg/dL (1.8-2.4); PHOSPHOROUS 5.3 mg/dL (2.5-4.9); POTASSIUM 3.6 mmol/L (3.5-5.1)
[2019-09-16] MEDS ORDERED: PT OWN MED DRAWER 7, Y5N ONE (09:03)
[2019-09-16] MEDS: levETIRAcetam 500 MG/5 ML ORAL SOLUTION (UNIT-DOSE CUPS) NGT SCH (09:06)
[2019-09-16] MEDS: CARVEDILOL 6.25 MG TABLET (FP) PO SCH (09:06)
[2019-09-16] MEDS: AMINO ACIDS/PROTEIN HYDROLYS 30 ML LIQUID.PKT GT SCH (09:06)
[2019-09-16] MEDS: FAMOTIDINE 40 MG/5 ML ORAL SUSPENSION NGT SCH (09:07)
[2019-09-16] MEDS: PHENobarbital 20 MG/5 ML UNIT-DOSE CUP NGT SCH (09:07)
[2019-09-16] MEDS: NYSTATIN POWDER 100,000 UNITS/GM - 15 GM TOPICAL POWDER TP SCH (09:07)
[2019-09-16] MEDS: ENOXAPARIN NA (PORCINE) 40 MG/0.4 ML DISP.SYRIN SQ SCH (09:07)
[2019-09-16] MEDS: ZINC SULFATE 220 MG CAPSULE (FP) GT SCH (09:07)
[2019-09-16] MEDS: POTASSIUM CHLORIDE ORAL LIQUID 20 MEQ/15 ML GT SCH (09:08)
[2019-09-16] MEDS: CHOLECALCIFEROL (VIT D3) 400 UNIT (10 MCG) TABLET NR SCH (09:08)
[2019-09-16] MEDS: Lacosamide 50 MG/5 ML ORAL SOLUTION UNIT CUPS PO SCH (09:08)
[2019-09-16] MEDS: ASCORBIC ACID 500 MG/5 ML UNIT DOSE CUP GT SCH (09:08)
[2019-09-16] MEDS: QUEtiapine FUMARATE 25 MG TABLET PO SCH (09:08)
--- NOTE | 2019-09-16 10:29 | PN ---
Progress Note, [employer]ICE [employer]IST - Note Progress Note: Selected Entries 09/15/19 09/15/19 09/15/19 01:42 05:00 08:40 Diet Tolerated Lunch Supper Temperature 98.5 F 97.8 F Pulse Rate 94 H 95 H 96 H Blood Pressure 129/81 126/79 09/15/19 09/15/19 09/15/19 09:00 10:00 11:21 Diet Tolerated Lunch Supper Temperature 97.9 F Pulse Rate 93 H 93 H 106 H Blood Pressure 134/87 09/15/19 09/15/19 09/15/19 13:00 14:00 14:19 Diet Tolerated Fair Lunch 50% Supper Temperature 97.8 F Pulse Rate 97 H 98 H Blood Pressure 130/85 09/15/19 09/15/19 09/16/19 18:00 22:00 01:50 Diet Tolerated Well Lunch Supper 100% Temperature 97.5 F L 98.2 F 97.8 F Pulse Rate 101 H 114 H 96 H Blood Pressure 123/69 129/69 09/16/19 09/16/19 05:00 09:00 Diet Tolerated Lunch Supper Temperature 99 F 97.9 F Pulse Rate 92 H 87 Blood Pressure Laboratory Tests 09/12/19 09/15/19 07:05 07:03 WBC 10[address] rec: continue Prosource 30 ml BID (120 cals 30 gm protein) continue w/Dysphagia Puree/Honey thick liquids- nocturnal feeds- Jevity 1.5 @ 40 cc/hr from 6 pm to 6 am will provide: 720 cals; 30.6 gm protein Doing quite well with PMV/Trachg collar and PO feedings. Initiate weaning protocol from PEG, once PO intake is sufficient. Continue to flush PEG tube,as indicated, to maintain function
--- NOTE | 2019-09-16 11:48 | PN ---
Progress Note, Physician History of Present Illness: PULMONARY AWAKE, ALERT,COMFORTABLE ON TRACH COLLAR,-SOB - Current Medication List Current Medications: Active Medications Albuterol/Ipratropium (Duoneb -) 1 amp NEB Q6H PRN PRN Reason: SHORTNESS OF BREATH Amino Acids (Prosource No Carb Liquid Pkt) 30 ml GT BID@0800,1730 [facility] Last Admin: 09/16/19 09:06 Dose: 30 ml Documented by: Artificial Tears (Artificial Tears) 1 drop OU Q12H PRN PRN Reason: DRY EYES Last Admin: 09/05/19 09:19 Dose: 1 drop Documented by: Ascorbic Acid (Vitamin C Oral Solution -) 500 mg GT DAILY [facility] Last Admin: 09/16/19 09:08 Dose: 500 mg Documented by: Carvedilol (Coreg -) 6.25 mg PO BID [facility] Last Admin: 09/16/19 09:06 Dose: 6.25 mg Documented by: Cholecalciferol (Vitamin D3 -) 800 unit NR DAILY [facility] Last Admin: 09/16/19 09:08 Dose: 800 unit Documented by: Enoxaparin Sodium (Lovenox -) 40 mg SQ DAILY [facility] Last Admin: 09/16/19 09:07 Dose: 40 mg Documented by: Famotidine (Pepcid) 20 mg NGT BID [facility] Last Admin: 09/16/19 09:07 Dose: 20 mg Documented by: Lacosamide (Vimpat Liquid -) 200 mg PO BID [facility] Last Admin: 09/16/19 09:08 Dose: 200 mg Documented by: Levetiracetam (Keppra Oral Solution -) 1,000 mg NGT BID [facility] Last Admin: 09/16/19 09:06 Dose: 1,000 mg Documented by: Nitrofurantoin Macrocrystals (Macrodantin -) 50 mg GT Q6HPO [facility] Last Admin: 09/16/19 11:45 Dose: 50 mg Documented by: Nystatin (Nystop Powder -) 1 applic TP BID [facility] Last Admin: 09/16/19 09:07 Dose: 1 applic Documented by: Phenobarbital (Phenobarbital Liquid -) 60 mg NGT BID [facility] Last Admin: 09/16/19 09:07 Dose: 60 mg Documented by: Potassium Chloride (Potassium Chloride Oral Liquid) 40 meq GT BID [facility] Last Admin: 09/16/19 09:08 Dose: 40 meq Documented by: Quetiapine Fumarate (Seroquel -) 25 mg PO DAILY [facility] Last Admin: 09/16/19 09:08 Dose: 25 mg Documented by: Topiramate (Topamax -) 200 mg GT TID [facility] Last Admin: 09/16/19 05:11 Dose: 200 mg Documented by: Zinc Sulfate (Orazinc -) 220 mg GT BID [facility] Last Admin: 09/16/19 09:07 Dose: 220 mg Documented by: - Objective Vital Signs: Vital Signs Temperature 97.9 F 09/16/19 09:00 Pulse Rate 87 09/16/19 09:00 Respiratory Rate 25 H 09/16/19 09:00 Blood Pressure 131/85 09/16/19 09:00 O2 Sat by Pulse Oximetry (%) 100 09/16/19 09:00 Constitutional: Yes: Well Nourished, Calm Eyes: Yes: WNL HENT: Yes: WNL Neck: Yes: Supple (TRACH) Cardiovascular: Yes: Regular Rate and Rhythm, S1, S2 Respiratory: Yes: Rhonchi (FEW RHONCHI) Gastrointestinal: Yes: Normal Bowel Sounds, Soft Extremities: Yes: WNL Edema: No Labs: CBC, BMP 09/16/19 07:32 Problem List - Problems (1) COVID-19 Code(s): U07.1 - COVID POSITIVE (2) COVID-19 Code(s): U07.1 - COVID POSITIVE (3) Acute respiratory failure with hypoxia Code(s): J96.01 - ACUTE RESPIRATORY FAILURE WITH HYPOXIA (4) Seizure disorder Code(s): G40.909 - EPILEPSY, UNSP, NOT INTRACTABLE, WITHOUT STATUS EPILEPTICUS (5) Status epilepticus Code(s): G40.901 - EPILEPSY, UNSP, NOT INTRACTABLE, WITH STATUS EPILEPTICUS Assessment/Plan ASSESSMENT AND PLAN: Acute Hypoxic and Hypercapneic Respiratory Failure improved COVID19 Pneumonia improving E Coli Pneumonia Fungenmia s/p Bacteremia Septic Shock Seizure Disorder Mental Retardation - Ativan PRN - antiepileptics - titrate 02 - trach collar - DVT/GI prophylaxis - inhaled bronchodilators Dr MARTINEZ
--- NOTE | 2019-09-16 12:23 | DS ---
Physical Exam: SUBJECTIVE: Patient seen and examined OBJECTIVE: Vital Signs Period Temp Pulse Resp BP Sys/Ortiz Pulse Ox Last 24 Hr 97.5 F-99 F 87-114 22-26 120-135/69-85 100-100 PHYSICAL EXAM GENERAL: The patient is awake, alert, nonverbal, follows commands EYES: PERRLA, EOMI EENT:moist mucous membranes. NECK: Trach in place LUNGS: Breath sounds equal, clear to auscultation bilaterally HEART: tachycardic, regular, S1, S2 ABDOMEN: Soft, nontender, nondistended, Percutaneous G tube in place, clean dry and intact EXTREMITIES: 2+ pulses, warm, well-perfused, no edema. LABS Laboratory Results - last 24 hr 09/16/19 07:32 Sodium 139 Potassium 3.6 Chloride 108 H Carbon Dioxide 25 Anion Gap 7 L BUN 10.4 Creatinine 0.4 L Est GFR (CKD-EPI)AfAm 174.63 Est GFR (CKD-EPI)NonAf 150.67 Random Glucose 116 H Calcium 8.8 Phosphorus 5.3 H Magnesium 1.9 HOSPITAL COURSE: Date of Admission:06/22/19 Date of Discharge: 09/16/19 ASSESSMENT/PLAN: Patient is a 39 y/o M with H Mental Retardation and epilepsy who presented to ED initially with SOB and hypoxia requiring intubation, admitted to hospital for hypoxic respiratory failure 2/2 to covid-19. Hospital course complicated by bacteremia, fungemia, MRSA PNA, now with recurrent fever. #Acute Resp Failure 2/2 COVID-19 -s/p trach, convalescent plasma, tocilizumab -on CPAP vent settings. spontaneous breathing trials as tolerated -Pulm on board #Transaminitis -persistent since admission -as of yet, no clear source identified -per GI, pt will potentially require a biopsy #Hypernatremia - resolved - Nephrology (Dr. Lockhart) consulted. #Tachycardia -c/w Coreg -c/w low-dose seroquel to treat potential contribution of anxiety #Epilepsy -c/w lorazepam prn, levetiracitam, phenobarbitol, Trileptal, topiramate #Nutrition -Dysphagia puree diet with thickened liquids during the day and nocturnal TF Minutes to complete discharge: 40 Discharge Summary Problems reviewed: Yes Reason For Visit: SUSP COVID,ACUTE RESP FAILURE W HYPOXIA, Current Active Problems Abnormal liver function tests (Acute) Acute respiratory failure with hypoxia (Acute) Bacteremia (Acute) COVID-19 (Acute) COVID-19 (Acute) DVT prophylaxis (Acute) Diarrhea (Acute) Dysphagia (Acute) Fever (Acute) Hypernatremia (Acute) Hypokalemia (Acute) Lactic acid acidosis (Acute) Pneumonia due to COVID-19 virus (Acute) Respiratory distress (Acute) Seizure disorder (Acute) Suspected COVID-19 virus infection (Acute) Tachycardia (Acute) Condition: Stable - Instructions Diet, Activity, Other Instructions: Your visit You were admitted to the hospital because of shortness of breath. You were found to have the COVID infection. You were intubated, and later a tracheostomy was placed to help with your breathing. A PEG tube was also placed for nutrition. Please continue having a dysphagia puree diet with thickened liquids via teaspoon during the day and tube feed at night time. You will be discharged to [facility] [place] to continue your recovery. Medications Please continue the following medications as prescribed. Follow up Please follow up with your primary care doctor in 1-2 weeks. Additional info please call 911 or go to the ED if with any worsening fevers, chills, headache, dizziness, chest pain, shortness of breath, belly pain, or any new concerns noted. Nutrition continue Prosource 30 ml BID (120 cals 30 gm protein) continue w/Dysphagia Puree/Honey thick liquids- nocturnal feeds- Jevity 1.5 @ 40 cc/hr from 6 pm to 6 am, additional water 30cc/hr Referrals: [facility] [place] [facility] [place] [Provider Group] [facility] [place] [Outside] Bernabe Callaway MD [Staff Physician] - Venita Christie MD [Staff Physician] - Disposition: TRANSFER ACUTE CARE/OTHER HOSP - Home Medications Comprehensive Discharge Medication List: Ambulatory Orders Albuterol 2.5/Ipratropium 0.5 [Duoneb -] 1 amp NEB Q6H PRN amp 09/15/19 Amino Acids/Protein Hydrolys [Prosource No Carb Liquid Pkt] 30 ml GT BID@0800,1730 packet 09/15/19 Carvedilol [Coreg -] 6.25 mg PO BID tablet 09/15/19 Cholecalciferol (Vitamin D3) [Vitamin D -] 800 unit NR DAILY tab 09/15/19 Famotidine [Pepcid] 20 mg NGT BID oral.susp 09/15/19 Nystatin Powder [Nystop Powder -] 1 applic TP BID applic 09/15/19 Oxcarbazepine [Trileptal] 300 mg GT BID #250 ml 09/15/19 Phenobarbital Liquid - [Phenobarbital Liquid 20 MG/5 ML -] 60 mg NGT BID #1 ml MDD 120 09/15/19 Polyvinyl Alcohol [Artificial Tears] 1 drop OU Q12H PRN drops 09/15/19 Potassium Chloride [Potassium Chloride Oral Liquid] 40 meq GT BID cup 09/15/19 Quetiapine Fumarate [Seroquel -] 25 mg PO DAILY tablet 09/15/19 Topiramate [Topamax -] 200 mg GT TID tablet 09/15/19 Zinc Sulfate [Orazinc -] 220 mg GT BID capsule 09/15/19 levETIRAcetam [Keppra Oral Solution -] 1,000 mg NGT BID cup 09/15/19 This patient is new to me today: No Emergency Visit: Yes ED Registration Date: 06/22/19 Care time: The patient presented to the Emergency Department on the above date a nd was hospitalized for further evaluation of their emergent condition. Critical Care patient: No - Discharge Referral Referred to [facility] Med P.C.: No ATTENDING PHYSICIAN STATEMENT I saw and evaluated the patient. I reviewed the resident's note and discussed the case with the resident. I agree with the resident's findings and plan as documented. SUBJECTIVE: OBJECTIVE: ASSESSMENT AND PLAN:
--- NOTE | 2019-09-16 13:13 | PN ---
Progress Note, [employer] ATTENDANT - Note Progress Note: Selected Entries 09/15/19 09/15/19 09/15/19 01:42 05:00 08:40 Diet Tolerated Lunch Supper Temperature 98.5 F 97.8 F Pulse Rate 94 H 95 H 96 H Blood Pressure 129/81 126/79 09/15/19 09/15/19 09/15/19 09:00 10:00 11:21 Diet Tolerated Lunch Supper Temperature 97.9 F Pulse Rate 93 H 93 H 106 H Blood Pressure 134/87 09/15/19 09/15/19 09/15/19 13:00 14:00 14:19 Diet Tolerated Fair Lunch 50% Supper Temperature 97.8 F Pulse Rate 97 H 98 H Blood Pressure 130/85 09/15/19 09/15/19 09/16/19 18:00 22:00 01:50 Diet Tolerated Well Lunch Supper 100% Temperature 97.5 F L 98.2 F 97.8 F Pulse Rate 101 H 114 H 96 H Blood Pressure 123/69 129/69 09/16/19 09/16/19 05:00 09:00 Diet Tolerated Lunch Supper Temperature 99 F 97.9 F Pulse Rate 92 H 87 Blood Pressure Laboratory Tests 09/12/19 09/15/19 07:05 07:03 WBC 10.8 H 10.8 H Selected Entries 09/15/19 09/15/19 09/16/19 14:00 18:00 01:50 Breakfast 50% Lunch 50% Supper 100% Temperature 97.8 F Pulse Rate 96 H Blood Pressure 120/74 09/16/19 09/16/19 05:00 09:00 Breakfast Lunch Supper Temperature 99 F 97.9 F Pulse Rate 92 H 87 Blood Pressure 135/81 131/85 Laboratory Tests 09/15/19 07:[address] rec: continue Prosource 30 ml BID (120 cals 30 gm protein) continue w/Dysphagia Puree/Honey thick liquids- nocturnal feeds- Jevity 1.5 @ 40 cc/hr from 6 pm to 6 am will provide: 720 cals; 30.6 gm protein Doing quite well with PMV/Trach collar and PO feedings. Pt is receiving PEG feeding 24 hours with PO feedings daytime. Reviewed with medical team risk of abdominal overload with TF and PO concurrently and risk of aspiration. Suggest-TF nocturnally only.PO puree and honey only on tsp, with PMV in place for all PO intake. PMV throughout day as tolerated Initiate weaning protocol from PEG, once PO intake is sufficient. Continue to flush PEG tube,as indicated, to maintain function
[2019-09-16] MEDS ORDERED: NYSTATIN 100,000 UNIT/GM TOPICAL CREAM 15 GM TUBE TP SCH (13:30)
[2019-09-16 15:50] VITALS: BP 118/88; PULSE 105; TEMP 98
--- NOTE | 2019-09-18 00:36 | PN ---
Teaching Attending Note Name of Resident: Kae Pack ATTENDING PHYSICIAN STATEMENT I saw and evaluated the patient. I reviewed the resident's note and discussed the case with the resident. I agree with the resident's findings and plan as documented. SUBJECTIVE: Patient seen and examined bedside, stable, no acute changes overnight, awaiting placement. 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 present CONTACT REPRESENTATIVE: Alert nonverbal Vital Signs (72 hours) 09/15/19 09/15/19 09/15/19 01:05 01:42 04:50 Temperature 98.5 F Pulse Rate 94 H Respiratory 26 H 22 H 26 H Rate Blood Pressure 129/81 O2 Sat by Pulse 100 100 Oximetry (%) 09/15/19 09/15/19 09/15/19 05:00 08:00 08:40 Temperature 97.8 F Pulse Rate 95 H 96 H Respiratory 20 24 H Rate Blood Pressure 126/79 O2 Sat by Pulse 100 100 Oximetry (%) 09/15/19 09/15/19 09/15/19 09:00 10:00 11:21 Temperature 97.9 F Pulse Rate 93 H 93 H 106 H Respiratory 29 H 29 H Rate Blood Pressure 134/87 O2 Sat by Pulse 100 100 100 Oximetry (%) 09/15/19 09/15/19 09/15/19 13:00 14:19 18:00 Temperature 97.8 F 97.5 F L Pulse Rate 97 H 98 H 101 H Respiratory 23 H 23 H Rate Blood Pressure 130/85 123/69 O2 Sat by Pulse 100 100 Oximetry (%) 09/15/19 09/15/19 09/15/19 21:00 21:24 22:00 Temperature 98.2 F Pulse Rate 114 H Respiratory 25 H 26 H Rate Blood Pressure 129/69 O2 Sat by Pulse 100 100 100 Oximetry (%) 09/16/19 09/16/19 09/16/19 01:38 01:50 05:00 Temperature 97.8 F 99 F Pulse Rate 96 H 92 H Respiratory 26 H 24 H 22 H Rate Blood Pressure 120/74 135/81 O2 Sat by Pulse 100 100 Oximetry (%) 09/16/19 09/16/19 09/16/19 05:44 09:00 10:00 Temperature 97.9 F Pulse Rate 87 87 Respiratory 22 H 25 H 25 H Rate Blood Pressure 131/85 O2 Sat by Pulse 100 100 100 Oximetry (%) 09/16/19 13:00 Temperature 98.0 F Pulse Rate 105 H Respiratory 25 H Rate Blood Pressure 118/88 O2 Sat by Pulse 100 Oximetry (%) Microbiology 09/03/19 08:04 Blood - Peripheral Venous Blood Culture - Final NO GROWTH AFTER 5 DAYS INCUBATION 09/03/19 08:35 Blood - Peripheral Venous Blood Culture - Final NO GROWTH AFTER 5 DAYS INCUBATION 09/03/19 09:30 Urine - Urine Caceres Urine Culture - Final Escherichia Coli Esbl Goat Herder 08/26/19 11:05 Blood - Peripheral Venous Blood Culture - Final NO GROWTH AFTER 5 DAYS INCUBATION 08/26/19 11:05 Blood - Peripheral Venous Blood Culture - Final NO GROWTH AFTER 5 DAYS INCUBATION 08/26/19 20:40 Sputum - Endotrachea Suction/Ventilator Gram Stain - Final 08/26/19 20:40 Sputum - Endotrachea Suction/Ventilator Sputum Culture - Final Mr S Aureus Escherichia Coli 08/26/19 19:15 Urine - Urine Caceres Urine Culture - Final NO GROWTH OBTAINED 08/26/19 22:15 Stool Cryptosporidium Antigen - Final 08/26/19 22:15 Stool Giardia Antigen (JASSON) - Final 08/26/19 12:10 Urine - Urine Caceres Legionella Antigen - Final 08/26/19 12:10 Urine - Urine Caceres Streptococcus pneumoniae Antigen (M - Final 08/20/19 20:20 Blood - Peripheral Venous Blood Culture - Final NO GROWTH AFTER 5 DAYS INCUBATION 08/20/19 20:20 Blood - Peripheral Venous Blood Culture - Final NO GROWTH AFTER 5 DAYS INCUBATION 08/21/19 03:17 Sputum - Endotrachea Suction/Ventilator AFB Smear Concentration - Final 08/21/19 03:17 Sputum - Endotrachea Suction/Ventilator Mycobacterial Culture - Preliminary 08/20/19 05:00 Sputum - Endotrachea Suction/Ventilator AFB Smear Concentration - Final 08/20/19 05:00 Sputum - Endotrachea Suction/Ventilator Mycobacterial Culture - Preliminary 08/21/19 03:17 Sputum - Endotrachea Suction/Ventilator Gram Stain - Final 08/21/19 03:17 Sputum - Endotrachea Suction/Ventilator Sputum Culture - Final Mr S Aureus 08/17/19 02:00 Blood - Peripheral Venous Blood Culture - Final NO GROWTH AFTER 5 DAYS INCUBATION 08/17/19 02:00 Blood - Peripheral Venous Blood Culture - Final NO GROWTH AFTER 5 DAYS INCUBATION 08/20/19 19:30 Stool Clostridioides difficile Antigen - Final 08/20/19 19:30 Stool Clostridioides difficile Toxin Assay - Final 08/20/19 19:30 Urine For Antigen Detection Legionella Antigen - Final 08/20/19 19:30 Urine For Antigen Detection Streptococcus pneumoniae Antigen (M - Final 08/18/19 12:00 Sputum - Endotrachea Suction/Ventilator AFB Smear Concentration - Final 08/18/19 12:00 Sputum - Endotrachea Suction/Ventilator Mycobacterial Culture - Preliminary 08/17/19 11:35 Urine - Urine Caceres Urine Culture - Final NO GROWTH OBTAINED 08/12/19 13:10 Blood - Peripheral Venous Blood Culture - Final NO GROWTH AFTER 5 DAYS INCUBATION 08/12/19 13:00 Blood - Peripheral Venous Blood Culture - Final NO GROWTH AFTER 5 DAYS INCUBATION 08/14/19 14:50 Sputum - Endotrachea Suction/Ventilator Gram Stain - Final 08/14/19 14:50 Sputum - Endotrachea Suction/Ventilator Sputum Culture - Final NORMAL RESPIRATORY RICKY 08/14/19 14:49 Stool Clostridioides difficile Antigen - Final 08/14/19 14:49 Stool Clostridioides difficile Toxin Assay - Final 08/09/19 11:45 Blood - Peripheral Venous Blood Culture - Final NO GROWTH AFTER 5 DAYS INCUBATION 08/09/19 11:52 Blood - Peripheral Venous Blood Culture - Final NO GROWTH AFTER 5 DAYS INCUBATION 08/12/19 14:45 Stool Clostridioides difficile Antigen - Final 08/12/19 14:45 Stool Clostridioides difficile Toxin Assay - Final 08/09/19 16:30 Urine - Urine Caceres Urine Culture - Final NO GROWTH OBTAINED 08/04/19 19:40 Blood - Peripheral Venous Blood Culture - Final Staphylococcus Capitis 08/04/19 19:50 Blood - Peripheral Venous Blood Culture - Final NO GROWTH AFTER 5 DAYS INCUBATION 08/05/19 13:45 Urine - Urine Caceres Urine Culture - Final NO GROWTH OBTAINED 07/31/19 16:30 Blood - Peripheral Venous Blood Culture - Final NO GROWTH AFTER 5 DAYS INCUBATION 07/31/19 17:25 Blood - Peripheral Venous Blood Culture - Final Staphylococcus Capitis 08/01/19 11:55 Sputum - Endotrachea Suction/Ventilator Gram Stain - Final 08/01/19 11:55 Sputum - Endotrachea Suction/Ventilator Sputum Culture - Final Mr S Aureus 07/29/19 11:46 Blood - Peripheral Venous Blood Culture - Final NO GROWTH AFTER 5 DAYS INCUBATION 07/29/19 11:18 Blood - Central Line Blood Culture - Final NO GROWTH AFTER 5 DAYS INCUBATION 07/29/19 11:18 Urine - Urine Caceres Urine Culture - Final NO GROWTH OBTAINED 07/12/19 11:04 Blood - Peripheral Venous Yeast/Fungus Identification - Final Janis Lusitaniae 07/18/19 21:10 Blood - Peripheral Venous Blood Culture - Final NO GROWTH AFTER 5 DAYS INCUBATION 07/18/19 18:30 Blood - Peripheral Venous Blood Culture - Final NO GROWTH AFTER 5 DAYS INCUBATION 07/15/19 12:25 Blood - Peripheral Venous Blood Culture - Final NO GROWTH AFTER 5 DAYS INCUBATION 07/16/19 15:15 Blood - Peripheral Venous Blood Culture - Final Staphylococcus Epidermidis 07/14/19 11:30 Blood - Peripheral Venous Blood Culture - Final NO GROWTH AFTER 5 DAYS INCUBATION 07/16/19 15:05 Blood - Peripheral Venous Blood Culture - Final Staphylococcus Epidermidis 07/16/19 12:30 Sputum - Endotrachea Suction/Ventilator Gram Stain - Final 07/16/19 12:30 Sputum - Endotrachea Suction/Ventilator Sputum Culture - Final Mr S Aureus Escherichia Coli 07/12/19 10:55 Blood - Peripheral Venous Blood Culture - Final NO GROWTH AFTER 5 DAYS INCUBATION 07/16/19 12:30 Urine - Urine - Catheterized Urine Culture - Final NO GROWTH OBTAINED 07/12/19 06:00 Sputum - Endotrachea Suction/Ventilator Gram Stain - Final 07/12/19 06:00 Sputum - Endotrachea Suction/Ventilator Sputum Culture - Final 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 Mr S Aureus 07/12/19 11:04 Blood - Peripheral Venous Blood Culture - Final 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 07/01/19 18:15 Blood - Peripheral Venous Blood Culture - Final NO GROWTH AFTER 5 DAYS INCUBATION 06/29/19 12:30 Blood - Peripheral Venous Blood Culture - Final Staphylococcus Epidermidis 06/30/19 17:15 Sputum - Endotrachea Suction/Ventilator Gram Stain - Final 06/30/19 17:15 Sputum - Endotrachea Suction/Ventilator Sputum Culture - Final Escherichia Coli Esbl Goat Herder 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 06/28/19 09:00 Blood - Peripheral Venous Blood Culture - Final Staphylococcus Epidermidis 06/28/19 12:50 Sputum - Endotrachea Suction/Ventilator Gram Stain - Final 06/28/19 12:50 Sputum - Endotrachea Suction/Ventilator Sputum Culture - Final 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 Staphylococcus Aureus 06/25/19 13:40 Blood - Peripheral Venous Blood Culture - Final NO GROWTH AFTER 5 DAYS INCUBATION 06/25/19 13:20 Blood - Peripheral Venous Blood Culture - Final NO GROWTH AFTER 5 DAYS INCUBATION 06/28/19 12:51 Urine - Urine Caceres Urine Culture - Final NO GROWTH OBTAINED 06/22/19 13:00 Blood - Peripheral Venous Blood Culture - Final Staphylococcus Warneri 06/22/19 13:00 Blood - Peripheral Venous Blood Culture - Final Staphylococcus Epidermidis 06/24/19 00:01 Urine - Urine Caceres Urine Culture - Final NO GROWTH OBTAINED 06/24/19 00:01 Urine For Antigen Detection Legionella Antigen - Final 06/24/19 00:01 Urine For Antigen Detection Streptococcus pneumoniae Antigen (M - Final Home Medications Medication Instructions Recorded Albuterol 2.5/Ipratropium 0.5 1 amp NEB Q6H PRN amp 09/15/19 [Duoneb -] Amino Acids/Protein Hydrolys 30 ml GT BID@0800,1730 packet 09/15/19 [Prosource No Carb Liquid Pkt] Carvedilol [Coreg -] 6.25 mg PO BID tablet 09/15/19 Cholecalciferol (Vitamin D3) 800 unit NR DAILY tab 09/15/19 [Vitamin D -] Famotidine [Pepcid] 20 mg NGT BID oral.susp 09/15/19 Nystatin Powder [Nystop Powder -] 1 applic TP BID applic 09/15/19 Oxcarbazepine [Trileptal] 300 mg GT BID #250 ml 09/15/19 Phenobarbital Liquid - 60 mg NGT BID #1 ml MDD 120 09/15/19 [Phenobarbital Liquid 20 MG/5 ML -] Polyvinyl Alcohol [Artificial 1 drop OU Q12H PRN drops 09/15/19 Tears] Potassium Chloride [Potassium 40 meq GT BID cup 09/15/19 Chloride Oral Liquid] Quetiapine Fumarate [Seroquel -] 25 mg PO DAILY tablet 09/15/19 Topiramate [Topamax -] 200 mg GT TID tablet 09/15/19 Zinc Sulfate [Orazinc -] 220 mg GT BID capsule 09/15/19 levETIRAcetam [Keppra Oral 1,000 mg NGT BID cup 09/15/19 Solution -] ASSESSMENT AND PLAN: 39 M Acute Resp Failure 2/2 COVID-19 s/p trach/plasma/Actemra Sepsis 2/2 polymicrobial infections (fungemia/bacteremia/COVID) also found ESBL UTI Recurrent fever spikes Tachycardia Transaminitis Epilepsy Mental retardation Developmental delay Deconditioning Anemia s/p Trach/PEG, w/ PMV Plan: Off abx, afebrile, stable G tube site clean, keep HOB elevation, suctioning, aggressive oral care Awaiting LTAC/SNF placement, at possibly [facility] Cont. psych meds, Ativan PRN for anxiety/tachypnea Aggressive replacements of electrolytes Avoid further transaminitis causing drugs DVT ppx: Lovenox SC
--- NOTE | 2019-09-18 00:37 | PN ---
Teaching Attending Note Name of Resident: Kae Pack ATTENDING PHYSICIAN STATEMENT I saw and evaluated the patient. I reviewed the resident's note and discussed the case with the resident. I agree with the resident's findings and plan as documented. SUBJECTIVE: Patient seen and examined bedside, stable for DC to [facility], afebrile, off abx. 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 present GARNISHER: Alert nonverbal Vital Signs (72 hours) 09/15/19 09/15/19 09/15/19 01:05 01:42 04:50 Temperature 98.5 F Pulse Rate 94 H Respiratory 26 H 22 H 26 H Rate Blood Pressure 129/81 O2 Sat by Pulse 100 100 Oximetry (%) 09/15/19 09/15/19 09/15/19 05:00 08:00 08:40 Temperature 97.8 F Pulse Rate 95 H 96 H Respiratory 20 24 H Rate Blood Pressure 126/79 O2 Sat by Pulse 100 100 Oximetry (%) 09/15/19 09/15/19 09/15/19 09:00 10:00 11:21 Temperature 97.9 F Pulse Rate 93 H 93 H 106 H Respiratory 29 H 29 H Rate Blood Pressure 134/87 O2 Sat by Pulse 100 100 100 Oximetry (%) 09/15/19 09/15/19 09/15/19 13:00 14:19 18:00 Temperature 97.8 F 97.5 F L Pulse Rate 97 H 98 H 101 H Respiratory 23 H 23 H Rate Blood Pressure 130/85 123/69 O2 Sat by Pulse 100 100 Oximetry (%) 09/15/19 09/15/19 09/15/19 21:00 21:24 22:00 Temperature 98.2 F Pulse Rate 114 H Respiratory 25 H 26 H Rate Blood Pressure 129/69 O2 Sat by Pulse 100 100 100 Oximetry (%) 09/16/19 09/16/19 09/16/19 01:38 01:50 05:00 Temperature 97.8 F 99 F Pulse Rate 96 H 92 H Respiratory 26 H 24 H 22 H Rate Blood Pressure 120/74 135/81 O2 Sat by Pulse 100 100 Oximetry (%) 09/16/19 09/16/19 09/16/19 05:44 09:00 10:00 Temperature 97.9 F Pulse Rate 87 87 Respiratory 22 H 25 H 25 H Rate Blood Pressure 131/85 O2 Sat by Pulse 100 100 100 Oximetry (%) 09/16/19 13:00 Temperature 98.0 F Pulse Rate 105 H Respiratory 25 H Rate Blood Pressure 118/88 O2 Sat by Pulse 100 Oximetry (%) Laboratory Tests 06/22/19 06/22/19 06/22/19 12:00 12:21 13:00 WBC 13.1 H RBC 5.19 Hgb 14.9 Hct 45.7 MCV 88.1 MCH 28.8 MCHC 32.7 RDW 14.9 Plt Count 175 MPV 10.1 Absolute Neuts (auto) 11.9 H Neutrophils % 91.3 H D Neutrophils % (Manual) 72.3 Band Neutrophils % 23.8 Lymphocytes % 6.3 L D Lymphocytes % (Manual) 3.9 L Monocytes % 2.3 L Monocytes % (Manual) 0 L Eosinophils % 0.0 D Eosinophils % (Manual) 0.0 Basophils % 0.1 Basophils % (Manual) 0.0 Myelocytes % (Man) 0 Promyelocytes % (Man) 0 Blast Cells % (Manual) 0 Nucleated RBC % 0 Metamyelocytes 0 Hypochromia 0 Platelet Estimate Normal Polychromasia 0 Poikilocytosis 0 Basophilic Stippling Anisocytosis 0 Microcytosis 0 Macrocytosis 0 Spherocytes Target Cells Tear Drop Cells Stomatocytes ESR PT with INR INR PTT (Actin FS) D-Dimer Anticoagulation Therapy Puncture Site Patient Temperature ABG pH ABG pCO2 at Pt Temp ABG pO2 at Pt Temp ABG HCO3 ABG O2 Sat (Measured) ABG O2 Content ABG Base Excess Yousuf Test VBG pH POC VBG pCO2 POC VBG pO2 VBG HCO3 VBG O2 Sat ([place]) VBG Base Excess Patient On Oxygen O2 Delivery Device Oxygen Flow Rate Vent Mode Vent Rate Mechanical Rate PEEP Pressure Support Vent Sodium Potassium Chloride Carbon Dioxide Anion Gap BUN Creatinine Est GFR (CKD-EPI)AfAm Est GFR (CKD-EPI)NonAf POC Glucometer Random Glucose Lactic Acid Calcium Phosphorus Magnesium Ferritin Total Bilirubin Direct Bilirubin AST ALT Alkaline Phosphatase LD Total Creatine Kinase Creatine Kinase Index CK-MB (CK-2) Troponin I C-Reactive Protein B-Natriuretic Peptide Total Protein Albumin Triglycerides Lipase Interleukin 2 Interleukin 6 TSH Free T4 Urine Color Yellow Urine Appearance Clear Urine pH 6.5 Ur Specific [place] 1.010 Urine Protein 1+ H Urine Glucose (UA) Negative Urine Ketones Negative Urine Blood Negative Urine Nitrite Negative Urine Bilirubin Negative Urine Urobilinogen 1.0 Ur Leukocyte Esterase Negative Urine WBC (Auto) 10 Urine RBC (Auto) 3 Urine Casts (Auto) 1 U Pathogenic Cast Auto U Epithel Cells (Auto) 15 Urine Crystals (Auto) Urine Bacteria (Auto) 10 Urine Yeast (Auto) Stool Occult Blood Stool O & P Wet [place] Vancomycin Vancomycin Pre-Dose COVID-19 ([facility]) Detected H CMV DNA Qual PCR Hep A IgM Ab Confirm Hepatitis A Ab Total Hep Bs Antigen Hep Bs Antibody Hep B Core Total Ab Hep B Core IgM Ab Hepatitis Be Antibody Hepatitis Be Antigen Hep C Ab Diagnostic Strongyloides IgG Ab TB Test (QFT) Nil TB Test (QFT) Mitogen TB Test (QFT) Ag 1 TB Test (QFT) Ag 2 TB Test (QFT) TB Positive Criteria O & P Permanent Slide Blood Type Antibody Screen 06/22/19 06/22/19 06/22/19 13:00 13:00 13:00 WBC RBC Hgb Hct MCV MCH MCHC RDW Plt Count MPV Absolute Neuts (auto) Neutrophils % Neutrophils % (Manual) Band Neutrophils % Lymphocytes % Lymphocytes % (Manual) Monocytes % Monocytes % (Manual) Eosinophils % Eosinophils % (Manual) Basophils % Basophils % (Manual) Myelocytes % (Man) Promyelocytes % (Man) Blast Cells % (Manual) Nucleated RBC % Metamyelocytes Hypochromia Platelet Estimate Polychromasia Poikilocytosis Basophilic Stippling Anisocytosis Microcytosis Macrocytosis Spherocytes Target Cells Tear Drop Cells Stomatocytes ESR PT with INR 12.40 INR 1.05 PTT (Actin FS) 30.4 D-Dimer Anticoagulation Therapy Puncture Site Patient Temperature ABG pH ABG pCO2 at Pt Temp ABG pO2 at Pt Temp ABG HCO3 ABG O2 Sat (Measured) ABG O2 Content ABG Base Excess Yousuf Test VBG pH POC VBG pCO2 POC VBG pO2 VBG HCO3 VBG O2 Sat ([place]) VBG Base Excess Patient On Oxygen O2 Delivery Device Oxygen Flow Rate Vent Mode Vent Rate Mechanical Rate PEEP Pressure Support Vent Sodium 139 Potassium 2.8 L* Chloride 105 Carbon Dioxide 17 L Anion Gap 17 H BUN 7.4 Creatinine 1.2 Est GFR (CKD-EPI)AfAm 89.00 Est GFR (CKD-EPI)NonAf 76.79 POC Glucometer Random Glucose 120 H Lactic Acid 8.8 H* Calcium 7.2 L Phosphorus Magnesium Ferritin 393.8 H Total Bilirubin 0.7 Direct Bilirubin 0.3 H AST 94 H ALT 58 Alkaline Phosphatase 98 LD Total 832 H Creatine Kinase 903 H Creatine Kinase Index 0.3 CK-MB (CK-2) 3.4 Troponin I < 0.02 C-Reactive Protein B-Natriuretic Peptide Total Protein 6.4 Albumin 2.7 L Triglycerides Lipase Interleukin 2 Interleukin 6 TSH Free T4 Urine Color Urine Appearance Urine pH Ur Specific [place] Urine Protein Urine Glucose (UA) Urine Ketones Urine Blood Urine Nitrite Urine Bilirubin Urine Urobilinogen Ur Leukocyte Esterase Urine WBC (Auto) Urine RBC (Auto) Urine Casts (Auto) U Pathogenic Cast Auto U Epithel Cells (Auto) Urine Crystals (Auto) Urine Bacteria (Auto) Urine Yeast (Auto) Stool Occult Blood Stool O & P Wet [place] Vancomycin Vancomycin Pre-Dose COVID-19 ([facility]) CMV DNA Qual PCR Hep A IgM Ab Confirm Hepatitis A Ab Total Hep Bs Antigen Hep Bs Antibody Hep B Core Total Ab Hep B Core IgM Ab Hepatitis Be Antibody Hepatitis Be Antigen Hep C Ab Diagnostic Strongyloides IgG Ab TB Test (QFT) Nil TB Test (QFT) Mitogen TB Test (QFT) Ag 1 TB Test (QFT) Ag 2 TB Test (QFT) TB Positive Criteria O & P Permanent Slide Blood Type Antibody Screen 06/22/19 06/22/19 06/22/19 13:00 16:30 16:30 WBC RBC Hgb Hct MCV MCH MCHC RDW Plt Count MPV Absolute Neuts (auto) Neutrophils % Neutrophils % (Manual) Band Neutrophils % Lymphocytes % Lymphocytes % (Manual) Monocytes % Monocytes % (Manual) Eosinophils % Eosinophils % (Manual) Basophils % Basophils % (Manual) Myelocytes % (Man) Promyelocytes % (Man) Blast Cells % (Manual) Nucleated RBC % Metamyelocytes Hypochromia Platelet Estimate Polychromasia Poikilocytosis Basophilic Stippling Anisocytosis Microcytosis Macrocytosis Spherocytes Target Cells Tear Drop Cells Stomatocytes ESR PT with INR INR PTT (Actin FS) D-Dimer Anticoagulation Therapy Puncture Site Patient Temperature ABG pH ABG pCO2 at Pt Temp ABG pO2 at Pt Temp ABG HCO3 ABG O2 Sat (Measured) ABG O2 Content ABG Base Excess Yousuf Test VBG pH 7.19 L* POC VBG pCO2 45.8 POC VBG pO2 < 49 H VBG HCO3 16.7 L VBG O2 Sat ([place]) 54.0 L VBG Base Excess -11.3 L Patient On Oxygen O2 Delivery Device Oxygen Flow Rate Vent Mode Vent Rate Mechanical Rate PEEP Pressure Support Vent Sodium 138 Potassium 3.3 L Chloride 107 Carbon Dioxide 22 Anion Gap 9 BUN 8.4 Creatinine 0.8 Est GFR (CKD-EPI)AfAm 132.27 Est GFR (CKD-EPI)NonAf 114.12 POC Glucometer Random Glucose 107 H Lactic Acid 2.7 H* Calcium 7.2 L Phosphorus Magnesium Ferritin Total Bilirubin 0.6 Direct Bilirubin AST 98 H ALT 54 Alkaline Phosphatase 85 LD Total Creatine Kinase Creatine Kinase Index CK-MB (CK-2) Troponin I C-Reactive Protein B-Natriuretic Peptide Total Protein 5.8 L Albumin 2.4 L Triglycerides Lipase Interleukin 2 Interleukin 6 TSH Free T4 Urine Color Urine Appearance Urine pH Ur Specific [place] Urine Protein Urine Glucose (UA) Urine Ketones Urine Blood Urine Nitrite Urine Bilirubin Urine Urobilinogen Ur Leukocyte Esterase Urine WBC (Auto) Urine RBC (Auto) Urine Casts (Auto) U Pathogenic Cast Auto U Epithel Cells (Auto) Urine Crystals (Auto) Urine Bacteria (Auto) Urine Yeast (Auto) Stool Occult Blood Stool O & P Wet [place] Vancomycin Vancomycin Pre-Dose COVID-19 ([facility]) CMV DNA Qual PCR Hep A IgM Ab Confirm Hepatitis A Ab Total Hep Bs Antigen Hep Bs Antibody Hep B Core Total Ab Hep B Core IgM Ab Hepatitis Be Antibody Hepatitis Be Antigen Hep C Ab Diagnostic Strongyloides IgG Ab TB Test (QFT) Nil TB Test (QFT) Mitogen TB Test (QFT) Ag 1 TB Test (QFT) Ag 2 TB Test (QFT) TB Positive Criteria O & P Permanent Slide Blood Type Antibody Screen 06/22/19 06/22/19 06/23/19 17:20 22:00 05:15 WBC RBC Hgb Hct MCV MCH MCHC RDW Plt Count MPV Absolute Neuts (auto) Neutrophils % Neutrophils % (Manual) Band Neutrophils % Lymphocytes % Lymphocytes % (Manual) Monocytes % Monocytes % (Manual) Eosinophils % Eosinophils % (Manual) Basophils % Basophils % (Manual) Myelocytes % (Man) Promyelocytes % (Man) Blast Cells % (Manual) Nucleated RBC % Metamyelocytes Hypochromia Platelet Estimate Polychromasia Poikilocytosis Basophilic Stippling Anisocytosis Microcytosis Macrocytosis Spherocytes Target Cells Tear Drop Cells Stomatocytes ESR PT with INR INR PTT (Actin FS) D-Dimer Anticoagulation Therapy No Result Required. Puncture Site Right radial Patient Temperature ABG pH 7.41 ABG pCO2 at Pt Temp 35.2 ABG pO2 at Pt Temp 72.0 L ABG HCO3 21.9 L ABG O2 Sat (Measured) 93.8 L ABG O2 Content 18.0 ABG Base Excess -1.6 Yousuf Test Positive VBG pH 7.39 POC VBG pCO2 37.3 L POC VBG pO2 49.0 H VBG HCO3 22.1 L VBG O2 Sat ([place]) 72.2 VBG Base Excess -1.8 Patient On Oxygen Yes O2 Delivery Device Vent Oxygen Flow Rate 60% Vent Mode 450 Vent Rate 10 Mechanical Rate A/c PEEP Pressure Support Vent 20 Sodium Potassium Chloride Carbon Dioxide Anion Gap BUN Creatinine Est GFR (CKD-EPI)AfAm Est GFR (CKD-EPI)NonAf POC Glucometer Random Glucose Lactic Acid 2.3 H* Calcium Phosphorus Magnesium Ferritin Total Bilirubin Direct Bilirubin AST ALT Alkaline Phosphatase LD Total Creatine Kinase Creatine Kinase Index CK-MB (CK-2) Troponin I C-Reactive Protein B-Natriuretic Peptide Total Protein Albumin Triglycerides Lipase Interleukin 2 Interleukin 6 TSH Free T4 Urine Color Urine Appearance Urine pH Ur Specific [place] Urine Protein Urine Glucose (UA) Urine Ketones Urine Blood Urine Nitrite Urine Bilirubin Urine Urobilinogen Ur Leukocyte Esterase Urine WBC (Auto) Urine RBC (Auto) Urine Casts (Auto) U Pathogenic Cast Auto U Epithel Cells (Auto) Urine Crystals (Auto) Urine Bacteria (Auto) Urine Yeast (Auto) Stool Occult Blood Stool O & P Wet [place] Vancomycin Vancomycin Pre-Dose COVID-19 ([facility]) CMV DNA Qual PCR Hep A IgM Ab Confirm Hepatitis A Ab Total Hep Bs Antigen Hep Bs Antibody Hep B Core Total Ab Hep B Core IgM Ab Hepatitis Be Antibody Hepatitis Be Antigen Hep C Ab Diagnostic Strongyloides IgG Ab TB Test (QFT) Nil TB Test (QFT) Mitogen TB Test (QFT) Ag 1 TB Test (QFT) Ag 2 TB Test (QFT) TB Positive Criteria O & P Permanent Slide Blood Type Antibody Screen 06/23/19 06/23/19 06/23/19 07:10 07:10 07:10 WBC 15.1 H RBC 4.96 Hgb 14.2 Hct 43.0 MCV 86.8 MCH 28.7 MCHC 33.1 RDW 15.0 Plt Count 156 MPV 10.2 Absolute Neuts (auto) Neutrophils % No Result Required. Neutrophils % (Manual) 74.7 Band Neutrophils % 8.1 Lymphocytes % No Result Required. Lymphocytes % (Manual) 16.2 D Monocytes % Monocytes % (Manual) 0 L Eosinophils % Eosinophils % (Manual) 1.0 D Basophils % Basophils % (Manual) 0.0 Myelocytes % (Man) 0 Promyelocytes % (Man) 0 Blast Cells % (Manual) 0 Nucleated RBC % 0 Metamyelocytes 0 Hypochromia 0 Platelet Estimate Normal Polychromasia 1+ Poikilocytosis 1+ Basophilic Stippling Anisocytosis 0 Microcytosis 0 Macrocytosis 0 Spherocytes Target Cells Tear Drop Cells Stomatocytes ESR PT with INR INR PTT (Actin FS) D-Dimer Anticoagulation Therapy Puncture Site Patient Temperature ABG pH ABG pCO2 at Pt Temp ABG pO2 at Pt Temp ABG HCO3 ABG O2 Sat (Measured) ABG O2 Content ABG Base Excess Yousuf Test VBG pH POC VBG pCO2 POC VBG pO2 VBG HCO3 VBG O2 Sat ([place]) VBG Base Excess Patient On Oxygen O2 Delivery Device Oxygen Flow Rate Vent Mode Vent Rate Mechanical Rate PEEP Pressure Support Vent Sodium 139 Potassium 3.3 L Chloride 109 H Carbon Dioxide 23 Anion Gap 8 BUN 9.1 Creatinine 0.6 Est GFR (CKD-EPI)AfAm 148.87 Est GFR (CKD-EPI)NonAf 128.44 POC Glucometer Random Glucose 101 Lactic Acid 2.0 Calcium 6.9 L* Phosphorus 2.3 L Magnesium 2.6 H Ferritin Total Bilirubin 0.8 Direct Bilirubin AST 100 H ALT 53 Alkaline Phosphatase 89 LD Total Creatine Kinase 517 H Creatine Kinase Index 0.4 CK-MB (CK-2) 2.4 Troponin I < 0.02 C-Reactive Protein B-Natriuretic Peptide 106.8 Total Protein 5.7 L Albumin 2.2 L Triglycerides Lipase Interleukin 2 Interleukin 6 TSH Free T4 Urine Color Urine Appearance Urine pH Ur Specific [place] Urine Protein Urine Glucose (UA) Urine Ketones Urine Blood Urine Nitrite Urine Bilirubin Urine Urobilinogen Ur Leukocyte Esterase Urine WBC (Auto) Urine RBC (Auto) Urine Casts (Auto) U Pathogenic Cast Auto U Epithel Cells (Auto) Urine Crystals (Auto) Urine Bacteria (Auto) Urine Yeast (Auto) Stool Occult Blood Stool O & P Wet [place] Vancomycin Vancomycin Pre-Dose COVID-19 ([facility]) CMV DNA Qual PCR Hep A IgM Ab Confirm Hepatitis A Ab Total Hep Bs Antigen Hep Bs Antibody Hep B Core Total Ab Hep B Core IgM Ab Hepatitis Be Antibody Hepatitis Be Antigen Hep C Ab Diagnostic Strongyloides IgG Ab TB Test (QFT) Nil TB Test (QFT) Mitogen TB Test (QFT) Ag 1 TB Test (QFT) Ag 2 TB Test (QFT) TB Positive Criteria O & P Permanent Slide Blood Type Antibody Screen 06/24/19 06/24/19 06/24/19 04:50 06:00 06:00 WBC 8.6 RBC 4.46 Hgb 13.5 Hct 38.8 MCV 87.0 MCH 30.3 MCHC 34.8 RDW 14.4 Plt Count 188 D MPV 9.9 Absolute Neuts (auto) 7.0 Neutrophils % 81.2 Neutrophils % (Manual) Band Neutrophils % Lymphocytes % 14.0 D Lymphocytes % (Manual) Monocytes % 4.0 Monocytes % (Manual) Eosinophils % 0.5 D Eosinophils % (Manual) Basophils % 0.3 Basophils % (Manual) Myelocytes % (Man) Promyelocytes % (Man) Blast Cells % (Manual) Nucleated RBC % 0 Metamyelocytes Hypochromia Platelet Estimate Polychromasia Poikilocytosis Basophilic Stippling Anisocytosis Microcytosis Macrocytosis Spherocytes Target Cells Tear Drop Cells Stomatocytes ESR PT with INR INR PTT (Actin FS) D-Dimer Anticoagulation Therapy No Result Required. Puncture Site Arterial line Patient Temperature ABG pH 7.41 ABG pCO2 at Pt Temp 36.5 ABG pO2 at Pt Temp 80.9 ABG HCO3 22.5 ABG O2 Sat (Measured) 95.3 ABG O2 Content 18.2 ABG Base Excess -1.2 Yousuf Test Not applicable VBG pH POC VBG pCO2 POC VBG pO2 VBG HCO3 VBG O2 Sat ([place]) VBG Base Excess Patient On Oxygen Yes O2 Delivery Device Vent Oxygen Flow Rate 60% Vent Mode Vol a/c Vent Rate 12 Mechanical Rate Vent PEEP 10.0 Pressure Support Vent 440 Sodium 139 Potassium 3.2 L Chloride 105 Carbon Dioxide 25 Anion Gap 8 BUN 7.1 Creatinine 0.6 Est GFR (CKD-EPI)AfAm 148.87 Est GFR (CKD-EPI)NonAf 128.44 POC Glucometer Random Glucose 107 H Lactic Acid Calcium 6.4 L* Phosphorus 2.2 L Magnesium 2.7 H Ferritin Total Bilirubin 2.0 H Direct Bilirubin AST 93 H ALT 55 Alkaline Phosphatase 87 LD Total Creatine Kinase Creatine Kinase Index CK-MB (CK-2) Troponin I C-Reactive Protein B-Natriuretic Peptide Total Protein 5.2 L Albumin 1.9 L Triglycerides Lipase Interleukin 2 Interleukin 6 TSH Free T4 Urine Color Urine Appearance Urine pH Ur Specific [place] Urine Protein Urine Glucose (UA) Urine Ketones Urine Blood Urine Nitrite Urine Bilirubin Urine Urobilinogen Ur Leukocyte Esterase Urine WBC (Auto) Urine RBC (Auto) Urine Casts (Auto) U Pathogenic Cast Auto U Epithel Cells (Auto) Urine Crystals (Auto) Urine Bacteria (Auto) Urine Yeast (Auto) Stool Occult Blood Stool O & P Wet [place] Vancomycin Vancomycin Pre-Dose COVID-19 ([facility]) CMV DNA Qual PCR Hep A IgM Ab Confirm Hepatitis A Ab Total Hep Bs Antigen Hep Bs Antibody Hep B Core Total Ab Hep B Core IgM Ab Hepatitis Be Antibody Hepatitis Be Antigen Hep C Ab Diagnostic Strongyloides IgG Ab TB Test (QFT) Nil TB Test (QFT) Mitogen TB Test (QFT) Ag 1 TB Test (QFT) Ag 2 TB Test (QFT) TB Positive Criteria O & P Permanent Slide Blood Type Antibody Screen 06/24/19 06/24/19 06/24/19 06:00 06:00 11:20 WBC RBC Hgb Hct MCV MCH MCHC RDW Plt Count MPV Absolute Neuts (auto) Neutrophils % Neutrophils % (Manual) Band Neutrophils % Lymphocytes % Lymphocytes % (Manual) Monocytes % Monocytes % (Manual) Eosinophils % Eosinophils % (Manual) Basophils % Basophils % (Manual) Myelocytes % (Man) Promyelocytes % (Man) Blast Cells % (Manual) Nucleated RBC % Metamyelocytes Hypochromia Platelet Estimate Polychromasia Poikilocytosis Basophilic Stippling Anisocytosis Microcytosis Macrocytosis Spherocytes Target Cells Tear Drop Cells Stomatocytes ESR PT with INR INR PTT (Actin FS) D-Dimer 1376 H Anticoagulation Therapy Puncture Site Patient Temperature ABG pH ABG pCO2 at Pt Temp ABG pO2 at Pt Temp ABG HCO3 ABG O2 Sat (Measured) ABG O2 Content ABG Base Excess Yousuf Test VBG pH POC VBG pCO2 POC VBG pO2 VBG HCO3 VBG O2 Sat ([place]) VBG Base Excess Patient On Oxygen O2 Delivery Device Oxygen Flow Rate Vent Mode Vent Rate Mechanical Rate PEEP Pressure Support Vent Sodium Potassium Chloride Carbon Dioxide Anion Gap BUN Creatinine Est GFR (CKD-EPI)AfAm Est GFR (CKD-EPI)NonAf POC Glucometer Random Glucose Lactic Acid Calcium Phosphorus Magnesium Ferritin Total Bilirubin Direct Bilirubin AST ALT Alkaline Phosphatase LD Total Creatine Kinase Creatine Kinase Index CK-MB (CK-2) Troponin I C-Reactive Protein 29.1 H B-Natriuretic Peptide Total Protein Albumin Triglycerides Lipase Interleukin 2 Interleukin 6 TSH Free T4 Urine Color Urine Appearance Urine pH Ur Specific [place] Urine Protein Urine Glucose (UA) Urine Ketones Urine Blood Urine Nitrite Urine Bilirubin Urine Urobilinogen Ur Leukocyte Esterase Urine WBC (Auto) Urine RBC (Auto) Urine Casts (Auto) U Pathogenic Cast Auto U Epithel Cells (Auto) Urine Crystals (Auto) Urine Bacteria (Auto) Urine Yeast (Auto) Stool Occult Blood Stool O & P Wet [place] Vancomycin Vancomycin Pre-Dose COVID-19 ([facility]) CMV DNA Qual PCR Hep A IgM Ab Confirm Hepatitis A Ab Total Hep Bs Antigen Hep Bs Antibody Hep B Core Total Ab Hep B Core IgM Ab Hepatitis Be Antibody Hepatitis Be Antigen Hep C Ab Diagnostic Strongyloides IgG Ab TB Test (QFT) Nil TB Test (QFT) Mitogen TB Test (QFT) Ag 1 TB Test (QFT) Ag 2 TB Test (QFT) TB Positive Criteria O & P Permanent Slide Blood Type O POSITIVE Antibody Screen Negative 06/25/19 06/25/19 06/25/19 05:30 07:50 07:50 WBC 7.9 RBC 4.37 Hgb 12.8 Hct 38.0 MCV 87.1 MCH 29.2 MCHC 33.6 RDW 14.7 Plt Count 235 D MPV 9.3 Absolute Neuts (auto) Neutrophils % Neutrophils % (Manual) Band Neutrophils % Lymphocytes % Lymphocytes % (Manual) Monocytes % Monocytes % (Manual) Eosinophils % Eosinophils % (Manual) Basophils % Basophils % (Manual) Myelocytes % (Man) Promyelocytes % (Man) Blast Cells % (Manual) Nucleated RBC % Metamyelocytes Hypochromia Platelet Estimate Polychromasia Poikilocytosis Basophilic Stippling Anisocytosis Microcytosis Macrocytosis Spherocytes Target Cells Tear Drop Cells Stomatocytes ESR PT with INR INR PTT (Actin FS) D-Dimer Anticoagulation Therapy No Result Required. Puncture Site Right radial Patient Temperature ABG pH 7.37 ABG pCO2 at Pt Temp 37.2 ABG pO2 at Pt Temp 102 H ABG HCO3 21.1 L ABG O2 Sat (Measured) 97.0 ABG O2 Content 19.0 ABG Base Excess -3.2 L Yousuf Test Positive VBG pH POC VBG pCO2 POC VBG pO2 VBG HCO3 VBG O2 Sat ([place]) VBG Base Excess Patient On Oxygen Yes O2 Delivery Device Vent Oxygen Flow Rate 60% Vent Mode A/c Vent Rate 20 Mechanical Rate Yes PEEP 10.0 Pressure Support Vent 450 Sodium 139 Potassium 3.6 Chloride 108 H Carbon Dioxide 23 Anion Gap 8 BUN 14.9 Creatinine 0.6 Est GFR (CKD-EPI)AfAm 148.87 Est GFR (CKD-EPI)NonAf 128.44 POC Glucometer Random Glucose 168 H Lactic Acid Calcium 7.3 L Phosphorus 3.0 Magnesium 3.0 H Ferritin Total Bilirubin 1.5 H Direct Bilirubin AST 44 H ALT 38 Alkaline Phosphatase 84 LD Total Creatine Kinase Creatine Kinase Index CK-MB (CK-2) Troponin I C-Reactive Protein B-Natriuretic Peptide Total Protein 5.2 L Albumin 1.8 L Triglycerides Lipase Interleukin 2 Interleukin 6 TSH Free T4 Urine Color Urine Appearance Urine pH Ur Specific [place] Urine Protein Urine Glucose (UA) Urine Ketones Urine Blood Urine Nitrite Urine Bilirubin Urine Urobilinogen Ur Leukocyte Esterase Urine WBC (Auto) Urine RBC (Auto) Urine Casts (Auto) U Pathogenic Cast Auto U Epithel Cells (Auto) Urine Crystals (Auto) Urine Bacteria (Auto) Urine Yeast (Auto) Stool Occult Blood Stool O & P Wet [place] Vancomycin Vancomycin Pre-Dose COVID-19 ([facility]) CMV DNA Qual PCR Hep A IgM Ab Confirm Hepatitis A Ab Total Hep Bs Antigen Hep Bs Antibody Hep B Core Total Ab Hep B Core IgM Ab Hepatitis Be Antibody Hepatitis Be Antigen Hep C Ab Diagnostic Strongyloides IgG Ab TB Test (QFT) Nil TB Test (QFT) Mitogen TB Test (QFT) Ag 1 TB Test (QFT) Ag 2 TB Test (QFT) TB Positive Criteria O & P Permanent Slide Blood Type Antibody Screen 06/25/19 06/25/19 06/26/19 08:00 13:50 06:49 WBC 8.2 RBC 4.66 Hgb 13.7 Hct 41.1 MCV 88.4 MCH 29.4 MCHC 33.3 RDW 14.8 Plt Count 276 MPV 9.3 Absolute Neuts (auto) Neutrophils % Neutrophils % (Manual) Band Neutrophils % Lymphocytes % Lymphocytes % (Manual) Monocytes % Monocytes % (Manual) Eosinophils % Eosinophils % (Manual) Basophils % Basophils % (Manual) Myelocytes % (Man) Promyelocytes % (Man) Blast Cells % (Manual) Nucleated RBC % Metamyelocytes Hypochromia Platelet Estimate Polychromasia Poikilocytosis Basophilic Stippling Anisocytosis Microcytosis Macrocytosis Spherocytes Target Cells Tear Drop Cells Stomatocytes ESR PT with INR INR PTT (Actin FS) D-Dimer Anticoagulation Therapy No Result Required. Puncture Site Right radial Patient Temperature ABG pH 7.40 ABG pCO2 at Pt Temp 34.8 L ABG pO2 at Pt Temp 89.6 ABG HCO3 21.0 L ABG O2 Sat (Measured) 96.3 ABG O2 Content 17.7 ABG Base Excess -2.7 L Yousuf Test Positive VBG pH POC VBG pCO2 POC VBG pO2 VBG HCO3 VBG O2 Sat ([place]) VBG Base Excess Patient On Oxygen Yes O2 Delivery Device Vent Oxygen Flow Rate 60% Vent Mode Vol/ac Vent Rate 26 Mechanical Rate Vent PEEP 10.0 Pressure Support Vent 380 Sodium Potassium Chloride Carbon Dioxide Anion Gap BUN Creatinine Est GFR (CKD-EPI)AfAm Est GFR (CKD-EPI)NonAf POC Glucometer Random Glucose Lactic Acid Calcium Phosphorus Magnesium Ferritin Total Bilirubin Direct Bilirubin AST ALT Alkaline Phosphatase LD Total Creatine Kinase Creatine Kinase Index CK-MB (CK-2) Troponin I C-Reactive Protein B-Natriuretic Peptide Total Protein Albumin Triglycerides Lipase Interleukin 2 Interleukin 6 TSH Free T4 Urine Color Urine Appearance Urine pH Ur Specific [place] Urine Protein Urine Glucose (UA) Urine Ketones Urine Blood Urine Nitrite Urine Bilirubin Urine Urobilinogen Ur Leukocyte Esterase Urine WBC (Auto) Urine RBC (Auto) Urine Casts (Auto) U Pathogenic Cast Auto U Epithel Cells (Auto) Urine Crystals (Auto) Urine Bacteria (Auto) Urine Yeast (Auto) Stool Occult Blood Stool O & P Wet [place] Vancomycin Vancomycin Pre-Dose COVID-19 ([facility]) CMV DNA Qual PCR Hep A IgM Ab Confirm Hepatitis A Ab Total Hep Bs Antigen Hep Bs Antibody Hep B Core Total Ab Hep B Core IgM Ab Hepatitis Be Antibody Hepatitis Be Antigen Hep C Ab Diagnostic Strongyloides IgG Ab TB Test (QFT) Nil TB Test (QFT) Mitogen TB Test (QFT) Ag 1 TB Test (QFT) Ag 2 TB Test (QFT) TB Positive Criteria O & P Permanent Slide Blood Type O POSITIVE Antibody Screen Negative 06/26/19 06/26/19 06/26/19 06:49 06:49 08:45 WBC RBC Hgb Hct MCV MCH MCHC RDW Plt Count MPV Absolute Neuts (auto) Neutrophils % Neutrophils % (Manual) Band Neutrophils % Lymphocytes % Lymphocytes % (Manual) Monocytes % Monocytes % (Manual) Eosinophils % Eosinophils % (Manual) Basophils % Basophils % (Manual) Myelocytes % (Man) Promyelocytes % (Man) Blast Cells % (Manual) Nucleated RBC % Metamyelocytes Hypochromia Platelet Estimate Polychromasia Poikilocytosis Basophilic Stippling Anisocytosis Microcytosis Macrocytosis Spherocytes Target Cells Tear Drop Cells Stomatocytes ESR PT with INR 11.40 INR 0.97 PTT (Actin FS) 35.6 D-Dimer Anticoagulation Therapy No Result Required. Puncture Site Right radial Patient Temperature ABG pH 7.40 ABG pCO2 at Pt Temp 37.8 ABG pO2 at Pt Temp 187 H ABG HCO3 22.6 ABG O2 Sat (Measured) 98.8 H ABG O2 Content No Result Required. ABG Base Excess -1.4 Yousuf Test Positive VBG pH POC VBG pCO2 POC VBG pO2 VBG HCO3 VBG O2 Sat ([place]) VBG Base Excess Patient On Oxygen Yes O2 Delivery Device Vent Oxygen Flow Rate 70 Vent Mode Ltv Vent Rate 26 Mechanical Rate No Result Required. PEEP 12.0 Pressure Support Vent 380 Sodium 139 Potassium 4.3 Chloride 106 Carbon Dioxide 25 Anion Gap 9 BUN 18.6 H Creatinine 0.5 L Est GFR (CKD-EPI)AfAm 160.45 Est GFR (CKD-EPI)NonAf 138.44 POC Glucometer Random Glucose 138 H Lactic Acid Calcium 7.2 L Phosphorus 2.6 Magnesium 3.1 H Ferritin Total Bilirubin 0.8 Direct Bilirubin 0.5 H AST 64 H ALT 38 Alkaline Phosphatase 89 LD Total Creatine Kinase Creatine Kinase Index CK-MB (CK-2) Troponin I C-Reactive Protein B-Natriuretic Peptide Total Protein 5.8 L Albumin 1.9 L Triglycerides Lipase Interleukin 2 Interleukin 6 TSH Free T4 Urine Color Urine Appearance Urine pH Ur Specific [place] Urine Protein Urine Glucose (UA) Urine Ketones Urine Blood Urine Nitrite Urine Bilirubin Urine Urobilinogen Ur Leukocyte Esterase Urine WBC (Auto) Urine RBC (Auto) Urine Casts (Auto) U Pathogenic Cast Auto U Epithel Cells (Auto) Urine Crystals (Auto) Urine Bacteria (Auto) Urine Yeast (Auto) Stool Occult Blood Stool O & P Wet [place] Vancomycin Vancomycin Pre-Dose COVID-19 ([facility]EROY) CMV DNA Qual PCR Hep A IgM Ab Confirm Hepatitis A Ab Total Hep Bs Antigen Hep Bs Antibody Hep B Core Total Ab Hep B Core IgM Ab Hepatitis Be Antibody Hepatitis Be Antigen Hep C Ab Diagnostic Strongyloides IgG Ab TB Test (QFT) Nil TB Test (QFT) Mitogen TB Test (QFT) Ag 1 TB Test (QFT) Ag 2 TB Test (QFT) TB Positive Criteria O & P Permanent Slide Blood Type Antibody Screen 06/27/19 06/27/19 06/27/19 05:30 06:30 06:30 WBC 9.9 RBC 4.46 Hgb 12.9 Hct 39.5 MCV 88.6 MCH 28.9 MCHC 32.6 RDW 15.2 Plt Count 352 D MPV 9.1 Absolute Neuts (auto) Neutrophils % Neutrophils % (Manual) Band Neutrophils % Lymphocytes % Lymphocytes % (Manual) Monocytes % Monocytes % (Manual) Eosinophils % Eosinophils % (Manual) Basophils % Basophils % (Manual) Myelocytes % (Man) Promyelocytes % (Man) Blast Cells % (Manual) Nucleated RBC % Metamyelocytes Hypochromia Platelet Estimate Polychromasia Poikilocytosis Basophilic Stippling Anisocytosis Microcytosis Macrocytosis Spherocytes Target Cells Tear Drop Cells Stomatocytes ESR PT with INR INR PTT (Actin FS) D-Dimer Anticoagulation Therapy No Result Required. Puncture Site Right radial Patient Temperature ABG pH 7.27 L ABG pCO2 at Pt Temp 55.2 H ABG pO2 at Pt Temp 76.2 L ABG HCO3 24.5 ABG O2 Sat (Measured) 92.3 L ABG O2 Content 16.8 ABG Base Excess -2.6 L Yousuf Test Positive VBG pH POC VBG pCO2 POC VBG pO2 VBG HCO3 VBG O2 Sat ([place]) VBG Base Excess Patient On Oxygen Yes O2 Delivery Device Vent Oxygen Flow Rate 100% Vent Mode A/c Vent Rate 26 Mechanical Rate Yes PEEP 12.0 Pressure Support Vent 340 Sodium 141 Potassium 4.1 Chloride 108 H Carbon Dioxide 25 Anion Gap 8 BUN 19.1 H Creatinine 0.6 Est GFR (CKD-EPI)AfAm 148.87 Est GFR (CKD-EPI)NonAf 128.44 POC Glucometer Random Glucose 112 H Lactic Acid Calcium 7.2 L Phosphorus 3.8 Magnesium 3.0 H Ferritin Total Bilirubin Direct Bilirubin AST ALT Alkaline Phosphatase LD Total Creatine Kinase Creatine Kinase Index CK-MB (CK-2) Troponin I C-Reactive Protein B-Natriuretic Peptide Total Protein Albumin Triglycerides 255 H Lipase Interleukin 2 Interleukin 6 TSH Free T4 Urine Color Urine Appearance Urine pH Ur Specific [place] Urine Protein Urine Glucose (UA) Urine Ketones Urine Blood Urine Nitrite Urine Bilirubin Urine Urobilinogen Ur Leukocyte Esterase Urine WBC (Auto) Urine RBC (Auto) Urine Casts (Auto) U Pathogenic Cast Auto U Epithel Cells (Auto) Urine Crystals (Auto) Urine Bacteria (Auto) Urine Yeast (Auto) Stool Occult Blood Stool O & P Wet [place] Vancomycin Vancomycin Pre-Dose COVID-19 ([facility]EROY) CMV DNA Qual PCR Hep A IgM Ab Confirm Hepatitis A Ab Total Hep Bs Antigen Hep Bs Antibody Hep B Core Total Ab Hep B Core IgM Ab Hepatitis Be Antibody Hepatitis Be Antigen Hep C Ab Diagnostic Strongyloides IgG Ab TB Test (QFT) Nil TB Test (QFT) Mitogen TB Test (QFT) Ag 1 TB Test (QFT) Ag 2 TB Test (QFT) TB Positive Criteria O & P Permanent Slide Blood Type Antibody Screen 06/28/19 06/28/19 06/28/19 06:00 06:00 06:00 WBC 9.6 RBC 4.02 Hgb 11.7 Hct 36.0 MCV 89.7 MCH 29.1 MCHC 32.4 RDW 15.2 Plt Count 336 MPV 8.9 Absolute Neuts (auto) Neutrophils % Neutrophils % (Manual) Band Neutrophils % Lymphocytes % Lymphocytes % (Manual) Monocytes % Monocytes % (Manual) Eosinophils % Eosinophils % (Manual) Basophils % Basophils % (Manual) Myelocytes % (Man) Promyelocytes % (Man) Blast Cells % (Manual) Nucleated RBC % Metamyelocytes Hypochromia Platelet Estimate Polychromasia Poikilocytosis Basophilic Stippling Anisocytosis Microcytosis Macrocytosis Spherocytes Target Cells Tear Drop Cells Stomatocytes ESR PT with INR INR PTT (Actin FS) 36.3 D-Dimer Anticoagulation Therapy Puncture Site Patient Temperature ABG pH ABG pCO2 at Pt Temp ABG pO2 at Pt Temp ABG HCO3 ABG O2 Sat (Measured) ABG O2 Content ABG Base Excess Yousuf Test VBG pH POC VBG pCO2 POC VBG pO2 VBG HCO3 VBG O2 Sat ([place]) VBG Base Excess Patient On Oxygen O2 Delivery Device Oxygen Flow Rate Vent Mode Vent Rate Mechanical Rate PEEP Pressure Support Vent Sodium 144 Potassium 4.6 Chloride 113 H Carbon Dioxide 27 Anion Gap 4 L BUN 15.0 Creatinine 0.4 L Est GFR (CKD-EPI)AfAm 175.86 Est GFR (CKD-EPI)NonAf 151.74 POC Glucometer Random Glucose 119 H Lactic Acid Calcium 7.0 L Phosphorus 3.0 Magnesium 3.0 H Ferritin Total Bilirubin Direct Bilirubin AST ALT Alkaline Phosphatase LD Total Creatine Kinase Creatine Kinase Index CK-MB (CK-2) Troponin I C-Reactive Protein B-Natriuretic Peptide Total Protein Albumin Triglycerides Lipase Interleukin 2 Interleukin 6 TSH Free T4 Urine Color Urine Appearance Urine pH Ur Specific [place] Urine Protein Urine Glucose (UA) Urine Ketones Urine Blood Urine Nitrite Urine Bilirubin Urine Urobilinogen Ur Leukocyte Esterase Urine WBC (Auto) Urine RBC (Auto) Urine Casts (Auto) U Pathogenic Cast Auto U Epithel Cells (Auto) Urine Crystals (Auto) Urine Bacteria (Auto) Urine Yeast (Auto) Stool Occult Blood Stool O & P Wet [place] Vancomycin Vancomycin Pre-Dose COVID-19 ([facility]) CMV DNA Qual PCR Hep A IgM Ab Confirm Hepatitis A Ab Total Hep Bs Antigen Hep Bs Antibody Hep B Core Total Ab Hep B Core IgM Ab Hepatitis Be Antibody Hepatitis Be Antigen Hep C Ab Diagnostic Strongyloides IgG Ab TB Test (QFT) Nil TB Test (QFT) Mitogen TB Test (QFT) Ag 1 TB Test (QFT) Ag 2 TB Test (QFT) TB Positive Criteria O & P Permanent Slide Blood Type Antibody Screen 06/28/19 06/29/19 06/29/19 06:10 05:45 06:00 WBC 8.3 RBC 3.77 L Hgb 10.9 L Hct 34.0 L MCV 90.1 MCH 28.8 MCHC 32.0 RDW 15.5 Plt Count 349 MPV 8.4 Absolute Neuts (auto) Neutrophils % Neutrophils % (Manual) Band Neutrophils % Lymphocytes % Lymphocytes % (Manual) Monocytes % Monocytes % (Manual) Eosinophils % Eosinophils % (Manual) Basophils % Basophils % (Manual) Myelocytes % (Man) Promyelocytes % (Man) Blast Cells % (Manual) Nucleated RBC % Metamyelocytes Hypochromia Platelet Estimate Polychromasia Poikilocytosis Basophilic Stippling Anisocytosis Microcytosis Macrocytosis Spherocytes Target Cells Tear Drop Cells Stomatocytes ESR PT with INR INR PTT (Actin FS) D-Dimer Anticoagulation Therapy No Result Required. No Result Required. Puncture Site Right radial Right radial Patient Temperature ABG pH 7.25 L 7.22 L ABG pCO2 at Pt Temp 58.5 H 64.0 H ABG pO2 at Pt Temp 89.8 77.3 L ABG HCO3 24.9 25.3 ABG O2 Sat (Measured) 95.1 93.2 L ABG O2 Content No Result Required. 14.5 ABG Base Excess -2.6 L -2.9 L Yousuf Test Positive Positive VBG pH POC VBG pCO2 POC VBG pO2 VBG HCO3 VBG O2 Sat ([place]) VBG Base Excess Patient On Oxygen Yes Yes O2 Delivery Device Vent Vent Oxygen Flow Rate 100% 100% Vent Mode A/c A/c Vent Rate 26 26 Mechanical Rate Yes Yes PEEP 12.0 12.0 Pressure Support Vent 340 340 Sodium Potassium Chloride Carbon Dioxide Anion Gap BUN Creatinine Est GFR (CKD-EPI)AfAm Est GFR (CKD-EPI)NonAf POC Glucometer Random Glucose Lactic Acid Calcium Phosphorus Magnesium Ferritin Total Bilirubin Direct Bilirubin AST ALT Alkaline Phosphatase LD Total Creatine Kinase Creatine Kinase Index CK-MB (CK-2) Troponin I C-Reactive Protein B-Natriuretic Peptide Total Protein Albumin Triglycerides Lipase Interleukin 2 Interleukin 6 TSH Free T4 Urine Color Urine Appearance Urine pH Ur Specific [place] Urine Protein Urine Glucose (UA) Urine Ketones Urine Blood Urine Nitrite Urine Bilirubin Urine Urobilinogen Ur Leukocyte Esterase Urine WBC (Auto) Urine RBC (Auto) Urine Casts (Auto) U Pathogenic Cast Auto U Epithel Cells (Auto) Urine Crystals (Auto) Urine Bacteria (Auto) Urine Yeast (Auto) Stool Occult Blood Stool O & P Wet [place] Vancomycin Vancomycin Pre-Dose COVID-19 ([facility]ERO[facility]) CMV DNA Qual PCR Hep A IgM Ab Confirm Hepatitis A Ab Total Hep Bs Antigen Hep Bs Antibody Hep B Core Total Ab Hep B Core IgM Ab Hepatitis Be Antibody Hepatitis Be Antigen Hep C Ab Diagnostic Strongyloides IgG Ab TB Test (QFT) Nil TB Test (QFT) Mitogen TB Test (QFT) Ag 1 TB Test (QFT) Ag 2 TB Test (QFT) TB Positive Criteria O & P Permanent Slide Blood Type Antibody Screen 06/29/19 06/29/19 06/29/19 06:00 06:00 11:44 WBC RBC Hgb Hct MCV MCH MCHC RDW Plt Count MPV Absolute Neuts (auto) Neutrophils % Neutrophils % (Manual) Band Neutrophils % Lymphocytes % Lymphocytes % (Manual) Monocytes % Monocytes % (Manual) Eosinophils % Eosinophils % (Manual) Basophils % Basophils % (Manual) Myelocytes % (Man) Promyelocytes % (Man) Blast Cells % (Manual) Nucleated RBC % Metamyelocytes Hypochromia Platelet Estimate Polychromasia Poikilocytosis Basophilic Stippling Anisocytosis Microcytosis Macrocytosis Spherocytes Target Cells Tear Drop Cells Stomatocytes ESR PT with INR INR PTT (Actin FS) 37.4 H D-Dimer Anticoagulation Therapy Cancelled Puncture Site Cancelled Patient Temperature Cancelled ABG pH Cancelled ABG pCO2 at Pt Temp Cancelled ABG pO2 at Pt Temp Cancelled ABG HCO3 Cancelled ABG O2 Sat (Measured) Cancelled ABG O2 Content Cancelled ABG Base Excess Cancelled Yousuf Test Cancelled VBG pH POC VBG pCO2 POC VBG pO2 VBG HCO3 VBG O2 Sat ([place]) VBG Base Excess Patient On Oxygen Cancelled O2 Delivery Device Cancelled Oxygen Flow Rate Cancelled Vent Mode Cancelled Vent Rate Cancelled Mechanical Rate Cancelled PEEP Cancelled Pressure Support Vent Cancelled Sodium 145 Potassium 4.6 Chloride 116 H Carbon Dioxide 27 Anion Gap 2 L BUN 14.3 Creatinine 0.4 L Est GFR (CKD-EPI)AfAm 175.86 Est GFR (CKD-EPI)NonAf 151.74 POC Glucometer Random Glucose 117 H Lactic Acid Calcium 7.0 L Phosphorus 2.7 Magnesium 3.0 H Ferritin Total Bilirubin Direct Bilirubin AST ALT Alkaline Phosphatase LD Total Creatine Kinase Creatine Kinase Index CK-MB (CK-2) Troponin I C-Reactive Protein B-Natriuretic Peptide Total Protein Albumin Triglycerides Lipase Interleukin 2 Interleukin 6 TSH Free T4 Urine Color Urine Appearance Urine pH Ur Specific [place] Urine Protein Urine Glucose (UA) Urine Ketones Urine Blood Urine Nitrite Urine Bilirubin Urine Urobilinogen Ur Leukocyte Esterase Urine WBC (Auto) Urine RBC (Auto) Urine Casts (Auto) U Pathogenic Cast Auto U Epithel Cells (Auto) Urine Crystals (Auto) Urine Bacteria (Auto) Urine Yeast (Auto) Stool Occult Blood Stool O & P Wet [place] Vancomycin Vancomycin Pre-Dose COVID-19 ([facility]) CMV DNA Qual PCR Hep A IgM Ab Confirm Hepatitis A Ab Total Hep Bs Antigen Hep Bs Antibody Hep B Core Total Ab Hep B Core IgM Ab Hepatitis Be Antibody Hepatitis Be Antigen Hep C Ab Diagnostic Strongyloides IgG Ab TB Test (QFT) Nil TB Test (QFT) Mitogen TB Test (QFT) Ag 1 TB Test (QFT) Ag 2 TB Test (QFT) TB Positive Criteria O & P Permanent Slide Blood Type Antibody Screen 06/29/19 06/29/19 06/29/19 13:04 15:40 15:40 WBC RBC Hgb Hct MCV MCH MCHC RDW Plt Count MPV Absolute Neuts (auto) Neutrophils % Neutrophils % (Manual) Band Neutrophils % Lymphocytes % Lymphocytes % (Manual) Monocytes % Monocytes % (Manual) Eosinophils % Eosinophils % (Manual) Basophils % Basophils % (Manual) Myelocytes % (Man) Promyelocytes % (Man) Blast Cells % (Manual) Nucleated RBC % Metamyelocytes Hypochromia Platelet Estimate Polychromasia Poikilocytosis Basophilic Stippling Anisocytosis Microcytosis Macrocytosis Spherocytes Target Cells Tear Drop Cells Stomatocytes ESR PT with INR INR PTT (Actin FS) D-Dimer 654 H Anticoagulation Therapy No Result Required. Puncture Site No Result Required. Patient Temperature ABG pH 7.33 L ABG pCO2 at Pt Temp 47.7 H ABG pO2 at Pt Temp 76.3 L ABG HCO3 24.2 ABG O2 Sat (Measured) 94.5 L ABG O2 Content 20.3 ABG Base Excess -1.8 Yousuf Test Positive VBG pH POC VBG pCO2 POC VBG pO2 VBG HCO3 VBG O2 Sat ([place]) VBG Base Excess Patient On Oxygen No Result Required. O2 Delivery Device No Result Required. Oxygen Flow Rate No Result Required. Vent Mode No Result Required. Vent Rate No Result Required. Mechanical Rate No Result Required. PEEP Pressure Support Vent No Result Required. Sodium Potassium Chloride Carbon Dioxide Anion Gap BUN Creatinine Est GFR (CKD-EPI)AfAm Est GFR (CKD-EPI)NonAf POC Glucometer Random Glucose Lactic Acid Calcium Phosphorus Magnesium Ferritin 325.2 Total Bilirubin Direct Bilirubin AST ALT Alkaline Phosphatase LD Total 334 H Creatine Kinase Creatine Kinase Index CK-MB (CK-2) Troponin I C-Reactive Protein 20.5 H B-Natriuretic Peptide Total Protein Albumin Triglycerides Lipase Interleukin 2 Interleukin 6 TSH Free T4 Urine Color Urine Appearance Urine pH Ur Specific [place] Urine Protein Urine Glucose (UA) Urine Ketones Urine Blood Urine Nitrite Urine Bilirubin Urine Urobilinogen Ur Leukocyte Esterase Urine WBC (Auto) Urine RBC (Auto) Urine Casts (Auto) U Pathogenic Cast Auto U Epithel Cells (Auto) Urine Crystals (Auto) Urine Bacteria (Auto) Urine Yeast (Auto) Stool Occult Blood Stool O & P Wet [place] Vancomycin Vancomycin Pre-Dose COVID-19 ([facility]) CMV DNA Qual PCR Hep A IgM Ab Confirm Hepatitis A Ab Total Hep Bs Antigen Hep Bs Antibody Hep B Core Total Ab Hep B Core IgM Ab Hepatitis Be Antibody Hepatitis Be Antigen Hep C Ab Diagnostic Strongyloides IgG Ab TB Test (QFT) Nil TB Test (QFT) Mitogen TB Test (QFT) Ag 1 TB Test (QFT) Ag 2 TB Test (QFT) TB Positive Criteria O & P Permanent Slide Blood Type Antibody Screen 06/29/19 06/29/19 06/29/19 15:40 17:00 21:07 WBC RBC Hgb Hct MCV MCH MCHC RDW Plt Count MPV Absolute Neuts (auto) Neutrophils % Neutrophils % (Manual) Band Neutrophils % Lymphocytes % Lymphocytes % (Manual) Monocytes % Monocytes % (Manual) Eosinophils % Eosinophils % (Manual) Basophils % Basophils % (Manual) Myelocytes % (Man) Promyelocytes % (Man) Blast Cells % (Manual) Nucleated RBC % Metamyelocytes Hypochromia Platelet Estimate Polychromasia Poikilocytosis Basophilic Stippling Anisocytosis Microcytosis Macrocytosis Spherocytes Target Cells Tear Drop Cells Stomatocytes ESR PT with INR INR PTT (Actin FS) D-Dimer Anticoagulation Therapy No Result Required. Puncture Site No Result Required. Patient Temperature ABG pH 7.30 L ABG pCO2 at Pt Temp 38.4 ABG pO2 at Pt Temp 171 H ABG HCO3 18.3 L ABG O2 Sat (Measured) 98.4 H ABG O2 Content 16.9 ABG Base Excess -7.2 L Yousuf Test Positive VBG pH POC VBG pCO2 POC VBG pO2 VBG HCO3 VBG O2 Sat ([place]) VBG Base Excess Patient On Oxygen No Result Required. O2 Delivery Device No Result Required. Oxygen Flow Rate No Result Required. Vent Mode No Result Required. Vent Rate No Result Required. Mechanical Rate No Result Required. PEEP Pressure Support Vent No Result Required. Sodium Potassium Chloride Carbon Dioxide Anion Gap BUN Creatinine Est GFR (CKD-EPI)AfAm Est GFR (CKD-EPI)NonAf POC Glucometer 124 Random Glucose Lactic Acid Calcium Phosphorus Magnesium Ferritin Total Bilirubin Direct Bilirubin AST ALT Alkaline Phosphatase LD Total Creatine Kinase Creatine Kinase Index CK-MB (CK-2) Troponin I C-Reactive Protein B-Natriuretic Peptide Total Protein Albumin Triglycerides Lipase Interleukin 2 1204 H Interleukin 6 17.1 H TSH Free T4 Urine Color Urine Appearance Urine pH Ur Specific [place] Urine Protein Urine Glucose (UA) Urine Ketones Urine Blood Urine Nitrite Urine Bilirubin Urine Urobilinogen Ur Leukocyte Esterase Urine WBC (Auto) Urine RBC (Auto) Urine Casts (Auto) U Pathogenic Cast Auto U Epithel Cells (Auto) Urine Crystals (Auto) Urine Bacteria (Auto) Urine Yeast (Auto) Stool Occult Blood Stool O & P Wet [place] Vancomycin Vancomycin Pre-Dose COVID-19 ([facility]) CMV DNA Qual PCR Hep A IgM Ab Confirm Hepatitis A Ab Total Hep Bs Antigen Hep Bs Antibody Hep B Core Total Ab Hep B Core IgM Ab Hepatitis Be Antibody Hepatitis Be Antigen Hep C Ab Diagnostic Strongyloides IgG Ab TB Test (QFT) Nil TB Test (QFT) Mitogen TB Test (QFT) Ag 1 TB Test (QFT) Ag 2 TB Test (QFT) TB Positive Criteria O & P Permanent Slide Blood Type Antibody Screen 06/30/19 06/30/19 06/30/19 05:45 05:45 05:45 WBC 6.2 RBC 3.68 L Hgb 10.6 L Hct 32.9 L MCV 89.3 MCH 28.7 MCHC 32.2 RDW 15.1 Plt Count 371 MPV 8.9 Absolute Neuts (auto) Neutrophils % Neutrophils % (Manual) Band Neutrophils % Lymphocytes % Lymphocytes % (Manual) Monocytes % Monocytes % (Manual) Eosinophils % Eosinophils % (Manual) Basophils % Basophils % (Manual) Myelocytes % (Man) Promyelocytes % (Man) Blast Cells % (Manual) Nucleated RBC % Metamyelocytes Hypochromia Platelet Estimate Polychromasia Poikilocytosis Basophilic Stippling Anisocytosis Microcytosis Macrocytosis Spherocytes Target Cells Tear Drop Cells Stomatocytes ESR PT with INR INR PTT (Actin FS) 36.9 H D-Dimer Anticoagulation Therapy Puncture Site Patient Temperature ABG pH ABG pCO2 at Pt Temp ABG pO2 at Pt Temp ABG HCO3 ABG O2 Sat (Measured) ABG O2 Content ABG Base Excess Yousuf Test VBG pH POC VBG pCO2 POC VBG pO2 VBG HCO3 VBG O2 Sat ([place]) VBG Base Excess Patient On Oxygen O2 Delivery Device Oxygen Flow Rate Vent Mode Vent Rate Mechanical Rate PEEP Pressure Support Vent Sodium 144 Potassium 4.1 Chloride 114 H Carbon Dioxide 26 Anion Gap 4 L BUN 15.5 Creatinine 0.3 L Est GFR (CKD-EPI)AfAm 197.93 Est GFR (CKD-EPI)NonAf 170.78 POC Glucometer Random Glucose 173 H Lactic Acid Calcium 6.9 L* Phosphorus 1.7 L Magnesium 2.7 H Ferritin Total Bilirubin Direct Bilirubin AST ALT Alkaline Phosphatase LD Total Creatine Kinase Creatine Kinase Index CK-MB (CK-2) Troponin I C-Reactive Protein B-Natriuretic Peptide Total Protein Albumin Triglycerides Lipase Interleukin 2 Interleukin 6 TSH Free T4 Urine Color Urine Appearance Urine pH Ur Specific [place] Urine Protein Urine Glucose (UA) Urine Ketones Urine Blood Urine Nitrite Urine Bilirubin Urine Urobilinogen Ur Leukocyte Esterase Urine WBC (Auto) Urine RBC (Auto) Urine Casts (Auto) U Pathogenic Cast Auto U Epithel Cells (Auto) Urine Crystals (Auto) Urine Bacteria (Auto) Urine Yeast (Auto) Stool Occult Blood Stool O & P Wet [place] Vancomycin Vancomycin Pre-Dose COVID-19 ([facility]) CMV DNA Qual PCR Hep A IgM Ab Confirm Hepatitis A Ab Total Hep Bs Antigen Hep Bs Antibody Hep B Core Total Ab Hep B Core IgM Ab Hepatitis Be Antibody Hepatitis Be Antigen Hep C Ab Diagnostic Strongyloides IgG Ab TB Test (QFT) Nil TB Test (QFT) Mitogen TB Test (QFT) Ag 1 TB Test (QFT) Ag 2 TB Test (QFT) TB Positive Criteria O & P Permanent Slide Blood Type Antibody Screen 06/30/19 06/30/19 06/30/19 05:50 06:51 13:10 WBC RBC Hgb Hct MCV MCH MCHC RDW Plt Count MPV Absolute Neuts (auto) Neutrophils % Neutrophils % (Manual) Band Neutrophils % Lymphocytes % Lymphocytes % (Manual) Monocytes % Monocytes % (Manual) Eosinophils % Eosinophils % (Manual) Basophils % Basophils % (Manual) Myelocytes % (Man) Promyelocytes % (Man) Blast Cells % (Manual) Nucleated RBC % Metamyelocytes Hypochromia Platelet Estimate Polychromasia Poikilocytosis Basophilic Stippling Anisocytosis Microcytosis Macrocytosis Spherocytes Target Cells Tear Drop Cells Stomatocytes ESR PT with INR INR PTT (Actin FS) D-Dimer Anticoagulation Therapy No Result Required. A/c Puncture Site Arterial line Arterial line Patient Temperature ABG pH 7.29 L 7.30 L ABG pCO2 at Pt Temp 49.7 H 47.7 H ABG pO2 at Pt Temp 135 H 69.7 L ABG HCO3 23.3 23.0 ABG O2 Sat (Measured) 98.0 93.4 L ABG O2 Content 20.2 11.1 ABG Base Excess -3.2 L -2.7 L Yousuf Test Not applicable Not applicable VBG pH POC VBG pCO2 POC VBG pO2 VBG HCO3 VBG O2 Sat ([place]) VBG Base Excess Patient On Oxygen Yes Yes O2 Delivery Device Vent Vent Oxygen Flow Rate 70% 70% Vent Mode A/c A/c Vent Rate 35 35 Mechanical Rate Yes Yes PEEP 12.0 12.0 Pressure Support Vent 340 340 Sodium Potassium Chloride Carbon Dioxide Anion Gap BUN Creatinine Est GFR (CKD-EPI)AfAm Est GFR (CKD-EPI)NonAf POC Glucometer 133 Random Glucose Lactic Acid Calcium Phosphorus Magnesium Ferritin Total Bilirubin Direct Bilirubin AST ALT Alkaline Phosphatase LD Total Creatine Kinase Creatine Kinase Index CK-MB (CK-2) Troponin I C-Reactive Protein B-Natriuretic Peptide Total Protein Albumin Triglycerides Lipase Interleukin 2 Interleukin 6 TSH Free T4 Urine Color Urine Appearance Urine pH Ur Specific [place] Urine Protein Urine Glucose (UA) Urine Ketones Urine Blood Urine Nitrite Urine Bilirubin Urine Urobilinogen Ur Leukocyte Esterase Urine WBC (Auto) Urine RBC (Auto) Urine Casts (Auto) U Pathogenic Cast Auto U Epithel Cells (Auto) Urine Crystals (Auto) Urine Bacteria (Auto) Urine Yeast (Auto) Stool Occult Blood Stool O & P Wet [place] Vancomycin Vancomycin Pre-Dose COVID-19 ([facility]) CMV DNA Qual PCR Hep A IgM Ab Confirm Hepatitis A Ab Total Hep Bs Antigen Hep Bs Antibody Hep B Core Total Ab Hep B Core IgM Ab Hepatitis Be Antibody Hepatitis Be Antigen Hep C Ab Diagnostic Strongyloides IgG Ab TB Test (QFT) Nil TB Test (QFT) Mitogen TB Test (QFT) Ag 1 TB Test (QFT) Ag 2 TB Test (QFT) TB Positive Criteria O & P Permanent Slide Blood Type Antibody Screen 07/01/19 07/01/19 07/01/19 04:45 04:45 04:45 WBC 7.3 RBC 3.89 L Hgb 11.2 L Hct 34.8 L MCV 89.6 MCH 28.7 MCHC 32.1 RDW 15.4 Plt Count 417 MPV 8.6 Absolute Neuts (auto) Neutrophils % Neutrophils % (Manual) Band Neutrophils % Lymphocytes % Lymphocytes % (Manual) Monocytes % Monocytes % (Manual) Eosinophils % Eosinophils % (Manual) Basophils % Basophils % (Manual) Myelocytes % (Man) Promyelocytes % (Man) Blast Cells % (Manual) Nucleated RBC % Metamyelocytes Hypochromia Platelet Estimate Polychromasia Poikilocytosis Basophilic Stippling Anisocytosis Microcytosis Macrocytosis Spherocytes Target Cells Tear Drop Cells Stomatocytes ESR PT with INR INR PTT (Actin FS) D-Dimer 760 H Anticoagulation Therapy Puncture Site Patient Temperature ABG pH ABG pCO2 at Pt Temp ABG pO2 at Pt Temp ABG HCO3 ABG O2 Sat (Measured) ABG O2 Content ABG Base Excess Yousuf Test VBG pH POC VBG pCO2 POC VBG pO2 VBG HCO3 VBG O2 Sat ([place]) VBG Base Excess Patient On Oxygen O2 Delivery Device Oxygen Flow Rate Vent Mode Vent Rate Mechanical Rate PEEP Pressure Support Vent Sodium 146 H Potassium 4.2 Chloride 116 H Carbon Dioxide 25 Anion Gap 4 L BUN 12.4 Creatinine 0.3 L Est GFR (CKD-EPI)AfAm 197.93 Est GFR (CKD-EPI)NonAf 170.78 POC Glucometer Random Glucose 106 Lactic Acid Calcium 6.7 L* Phosphorus 2.0 L Magnesium 2.5 H Ferritin Total Bilirubin Direct Bilirubin AST ALT Alkaline Phosphatase LD Total Creatine Kinase Creatine Kinase Index CK-MB (CK-2) Troponin I C-Reactive Protein B-Natriuretic Peptide Total Protein Albumin Triglycerides Lipase Interleukin 2 Interleukin 6 TSH Free T4 Urine Color Urine Appearance Urine pH Ur Specific [place] Urine Protein Urine Glucose (UA) Urine Ketones Urine Blood Urine Nitrite Urine Bilirubin Urine Urobilinogen Ur Leukocyte Esterase Urine WBC (Auto) Urine RBC (Auto) Urine Casts (Auto) U Pathogenic Cast Auto U Epithel Cells (Auto) Urine Crystals (Auto) Urine Bacteria (Auto) Urine Yeast (Auto) Stool Occult Blood Stool O & P Wet [place] Vancomycin Vancomycin Pre-Dose COVID-19 ([place]EROY) CMV DNA Qual PCR Hep A IgM Ab Confirm Hepatitis A Ab Total Hep Bs Antigen Hep Bs Antibody Hep B Core Total Ab Hep B Core IgM Ab Hepatitis Be Antibody Hepatitis Be Antigen Hep C Ab Diagnostic Strongyloides IgG Ab TB Test (QFT) Nil TB Test (QFT) Mitogen TB Test (QFT) Ag 1 TB Test (QFT) Ag 2 TB Test (QFT) TB Positive Criteria O & P Permanent Slide Blood Type Antibody Screen 07/01/19 07/01/19 07/02/19 04:45 05:29 05:00 WBC RBC Hgb Hct MCV MCH MCHC RDW Plt Count MPV Absolute Neuts (auto) Neutrophils % Neutrophils % (Manual) Band Neutrophils % Lymphocytes % Lymphocytes % (Manual) Monocytes % Monocytes % (Manual) Eosinophils % Eosinophils % (Manual) Basophils % Basophils % (Manual) Myelocytes % (Man) Promyelocytes % (Man) Blast Cells % (Manual) Nucleated RBC % Metamyelocytes Hypochromia Platelet Estimate Polychromasia Poikilocytosis Basophilic Stippling Anisocytosis Microcytosis Macrocytosis Spherocytes Target Cells Tear Drop Cells Stomatocytes ESR PT with INR INR PTT (Actin FS) D-Dimer Anticoagulation Therapy No Result Required. Puncture Site Arterial line Patient Temperature ABG pH 7.30 L ABG pCO2 at Pt Temp 53.4 H ABG pO2 at Pt Temp 69.6 L ABG HCO3 25.8 ABG O2 Sat (Measured) 92.1 L ABG O2 Content 26.9 ABG Base Excess -1.8 Yousuf Test Positive VBG pH POC VBG pCO2 POC VBG pO2 VBG HCO3 VBG O2 Sat ([place]) VBG Base Excess Patient On Oxygen Yes O2 Delivery Device Vent Oxygen Flow Rate 70 Vent Mode Vc Vent Rate 35 Mechanical Rate No Result Required. PEEP 12.0 Pressure Support Vent 340 Sodium Potassium Chloride Carbon Dioxide Anion Gap BUN Creatinine Est GFR (CKD-EPI)AfAm Est GFR (CKD-EPI)NonAf POC Glucometer Random Glucose Lactic Acid Calcium Phosphorus Magnesium Ferritin Total Bilirubin Direct Bilirubin AST ALT Alkaline Phosphatase LD Total Creatine Kinase Creatine Kinase Index CK-MB (CK-2) Troponin I C-Reactive Protein B-Natriuretic Peptide Total Protein Albumin Triglycerides Lipase Interleukin 2 Interleukin 6 TSH Free T4 Urine Color Urine Appearance Urine pH Ur Specific [place] Urine Protein Urine Glucose (UA) Urine Ketones Urine Blood Urine Nitrite Urine Bilirubin Urine Urobilinogen Ur Leukocyte Esterase Urine WBC (Auto) Urine RBC (Auto) Urine Casts (Auto) U Pathogenic Cast Auto U Epithel Cells (Auto) Urine Crystals (Auto) Urine Bacteria (Auto) Urine Yeast (Auto) Stool Occult Blood Stool O & P Wet [place] Vancomycin Vancomycin Pre-Dose 10.0 COVID-19 ([facility]) CMV DNA Qual PCR Hep A IgM Ab Confirm Hepatitis A Ab Total Hep Bs Antigen Hep Bs Antibody Hep B Core Total Ab Hep B Core IgM Ab Hepatitis Be Antibody Hepatitis Be Antigen Hep C Ab Diagnostic Strongyloides IgG Ab TB Test (QFT) Nil 0.02 TB Test (QFT) Mitogen 0.44 TB Test (QFT) Ag 1 0.02 TB Test (QFT) Ag 2 0.02 TB Test (QFT) Indeterminate TB Positive Criteria O & P Permanent Slide Blood Type Antibody Screen 07/02/19 07/02/19 07/02/19 05:00 05:00 05:00 WBC 5.9 RBC 3.97 L Hgb 11.5 L Hct 35.7 MCV 89.9 MCH 29.0 MCHC 32.2 RDW 15.5 Plt Count 393 MPV 8.4 Absolute Neuts (auto) Neutrophils % Neutrophils % (Manual) Band Neutrophils % Lymphocytes % Lymphocytes % (Manual) Monocytes % Monocytes % (Manual) Eosinophils % Eosinophils % (Manual) Basophils % Basophils % (Manual) Myelocytes % (Man) Promyelocytes % (Man) Blast Cells % (Manual) Nucleated RBC % Metamyelocytes Hypochromia Platelet Estimate Polychromasia Poikilocytosis Basophilic Stippling Anisocytosis Microcytosis Macrocytosis Spherocytes Target Cells Tear Drop Cells Stomatocytes ESR PT with INR INR PTT (Actin FS) D-Dimer 1352 H Anticoagulation Therapy Puncture Site Patient Temperature ABG pH ABG pCO2 at Pt Temp ABG pO2 at Pt Temp ABG HCO3 ABG O2 Sat (Measured) ABG O2 Content ABG Base Excess Yousuf Test VBG pH POC VBG pCO2 POC VBG pO2 VBG HCO3 VBG O2 Sat ([place]) VBG Base Excess Patient On Oxygen O2 Delivery Device Oxygen Flow Rate Vent Mode Vent Rate Mechanical Rate PEEP Pressure Support Vent Sodium 150 H Potassium 4.2 Chloride 120 H Carbon Dioxide 26 Anion Gap 4 L BUN 11.2 Creatinine 0.2 L Est GFR (CKD-EPI)AfAm 233.83 Est GFR (CKD-EPI)NonAf 201.75 POC Glucometer Random Glucose 103 Lactic Acid Calcium 7.1 L Phosphorus 2.4 L Magnesium 2.4 Ferritin Total Bilirubin Direct Bilirubin AST ALT Alkaline Phosphatase LD Total Creatine Kinase Creatine Kinase Index CK-MB (CK-2) Troponin I C-Reactive Protein 2.5 H B-Natriuretic Peptide Total Protein Albumin Triglycerides Lipase Interleukin 2 Interleukin 6 TSH Free T4 Urine Color Urine Appearance Urine pH Ur Specific [place] Urine Protein Urine Glucose (UA) Urine Ketones Urine Blood Urine Nitrite Urine Bilirubin Urine Urobilinogen Ur Leukocyte Esterase Urine WBC (Auto) Urine RBC (Auto) Urine Casts (Auto) U Pathogenic Cast Auto U Epithel Cells (Auto) Urine Crystals (Auto) Urine Bacteria (Auto) Urine Yeast (Auto) Stool Occult Blood Stool O & P Wet [place] Vancomycin Vancomycin Pre-Dose COVID-19 ([facility]) CMV DNA Qual PCR Hep A IgM Ab Confirm Hepatitis A Ab Total Hep Bs Antigen Hep Bs Antibody Hep B Core Total Ab Hep B Core IgM Ab Hepatitis Be Antibody Hepatitis Be Antigen Hep C Ab Diagnostic Strongyloides IgG Ab TB Test (QFT) Nil TB Test (QFT) Mitogen TB Test (QFT) Ag 1 TB Test (QFT) Ag 2 TB Test (QFT) TB Positive Criteria O & P Permanent Slide Blood Type Antibody Screen 07/02/19 07/02/19 07/02/19 05:30 11:15 14:35 WBC RBC Hgb Hct MCV MCH MCHC RDW Plt Count MPV Absolute Neuts (auto) Neutrophils % Neutrophils % (Manual) Band Neutrophils % Lymphocytes % Lymphocytes % (Manual) Monocytes % Monocytes % (Manual) Eosinophils % Eosinophils % (Manual) Basophils % Basophils % (Manual) Myelocytes % (Man) Promyelocytes % (Man) Blast Cells % (Manual) Nucleated RBC % Metamyelocytes Hypochromia Platelet Estimate Polychromasia Poikilocytosis Basophilic Stippling Anisocytosis Microcytosis Macrocytosis Spherocytes Target Cells Tear Drop Cells Stomatocytes ESR PT with INR INR PTT (Actin FS) D-Dimer Anticoagulation Therapy No Result Required. No Result Required. No Result Required. Puncture Site Arterial line No Result Required. No Result Required. Patient Temperature ABG pH 7.31 L 7.34 L 7.34 L ABG pCO2 at Pt Temp 53.1 H 44.6 48.4 H ABG pO2 at Pt Temp 61.0 L 86.6 176 H ABG HCO3 25.7 23.2 25.6 ABG O2 Sat (Measured) 88.3 L 96.2 99.0 H ABG O2 Content 15.3 12.0 10.8 ABG Base Excess -0.8 -1.9 0.3 Yousuf Test Not applicable No Result Required. No Result Required. VBG pH POC VBG pCO2 POC VBG pO2 VBG HCO3 VBG O2 Sat ([place]) VBG Base Excess Patient On Oxygen Yes No Result Required. No Result Required. O2 Delivery Device Vent No Result Required. No Result Required. Oxygen Flow Rate 70% No Result Required. No Result Required. Vent Mode A/c No Result Required. No Result Required. Vent Rate 35 No Result Required. No Result Required. Mechanical Rate Yes No Result Required. No Result Required. PEEP 10.0 Pressure Support Vent 340 No Result Required. No Result Required. Sodium Potassium Chloride Carbon Dioxide Anion Gap BUN Creatinine Est GFR (CKD-EPI)AfAm Est GFR (CKD-EPI)NonAf POC Glucometer Random Glucose Lactic Acid Calcium Phosphorus Magnesium Ferritin Total Bilirubin Direct Bilirubin AST ALT Alkaline Phosphatase LD Total Creatine Kinase Creatine Kinase Index CK-MB (CK-2) Troponin I C-Reactive Protein B-Natriuretic Peptide Total Protein Albumin Triglycerides Lipase Interleukin 2 Interleukin 6 TSH Free T4 Urine Color Urine Appearance Urine pH Ur Specific [place] Urine Protein Urine Glucose (UA) Urine Ketones Urine Blood Urine Nitrite Urine Bilirubin Urine Urobilinogen Ur Leukocyte Esterase Urine WBC (Auto) Urine RBC (Auto) Urine Casts (Auto) U Pathogenic Cast Auto U Epithel Cells (Auto) Urine Crystals (Auto) Urine Bacteria (Auto) Urine Yeast (Auto) Stool Occult Blood Stool O & P Wet [place] Vancomycin Vancomycin Pre-Dose COVID-19 ([facility]) CMV DNA Qual PCR Hep A IgM Ab Confirm Hepatitis A Ab Total Hep Bs Antigen Hep Bs Antibody Hep B Core Total Ab Hep B Core IgM Ab Hepatitis Be Antibody Hepatitis Be Antigen Hep C Ab Diagnostic Strongyloides IgG Ab TB Test (QFT) Nil TB Test (QFT) Mitogen TB Test (QFT) Ag 1 TB Test (QFT) Ag 2 TB Test (QFT) TB Positive Criteria O & P Permanent Slide Blood Type Antibody Screen 07/03/19 07/03/19 07/03/19 04:30 04:30 04:30 WBC 10.1 H RBC 4.01 Hgb 11.7 Hct 35.9 MCV 89.6 MCH 29.2 MCHC 32.6 RDW 15.1 Plt Count 354 MPV 8.8 Absolute Neuts (auto) Neutrophils % Neutrophils % (Manual) Band Neutrophils % Lymphocytes % Lymphocytes % (Manual) Monocytes % Monocytes % (Manual) Eosinophils % Eosinophils % (Manual) Basophils % Basophils % (Manual) Myelocytes % (Man) Promyelocytes % (Man) Blast Cells % (Manual) Nucleated RBC % Metamyelocytes Hypochromia Platelet Estimate Polychromasia Poikilocytosis Basophilic Stippling Anisocytosis Microcytosis Macrocytosis Spherocytes Target Cells Tear Drop Cells Stomatocytes ESR PT with INR INR PTT (Actin FS) 27.1 D-Dimer Anticoagulation Therapy Puncture Site Patient Temperature ABG pH ABG pCO2 at Pt Temp ABG pO2 at Pt Temp ABG HCO3 ABG O2 Sat (Measured) ABG O2 Content ABG Base Excess Yousuf Test VBG pH POC VBG pCO2 POC VBG pO2 VBG HCO3 VBG O2 Sat ([place]) VBG Base Excess Patient On Oxygen O2 Delivery Device Oxygen Flow Rate Vent Mode Vent Rate Mechanical Rate PEEP Pressure Support Vent Sodium 148 H Potassium 4.3 Chloride 117 H Carbon Dioxide 28 Anion Gap 3 L BUN 11.6 Creatinine 0.2 L Est GFR (CKD-EPI)AfAm 233.83 Est GFR (CKD-EPI)NonAf 201.75 POC Glucometer Random Glucose 92 Lactic Acid Calcium 7.5 L Phosphorus 3.1 Magnesium 2.1 Ferritin Total Bilirubin Direct Bilirubin AST ALT Alkaline Phosphatase LD Total Creatine Kinase Creatine Kinase Index CK-MB (CK-2) Troponin I C-Reactive Protein B-Natriuretic Peptide Total Protein Albumin Triglycerides Lipase Interleukin 2 Interleukin 6 TSH Free T4 Urine Color Urine Appearance Urine pH Ur Specific [place] Urine Protein Urine Glucose (UA) Urine Ketones Urine Blood Urine Nitrite Urine Bilirubin Urine Urobilinogen Ur Leukocyte Esterase Urine WBC (Auto) Urine RBC (Auto) Urine Casts (Auto) U Pathogenic Cast Auto U Epithel Cells (Auto) Urine Crystals (Auto) Urine Bacteria (Auto) Urine Yeast (Auto) Stool Occult Blood Stool O & P Wet [place] Vancomycin Vancomycin Pre-Dose COVID-19 ([facility]) CMV DNA Qual PCR Hep A IgM Ab Confirm Hepatitis A Ab Total Hep Bs Antigen Hep Bs Antibody Hep B Core Total Ab Hep B Core IgM Ab Hepatitis Be Antibody Hepatitis Be Antigen Hep C Ab Diagnostic Strongyloides IgG Ab TB Test (QFT) Nil TB Test (QFT) Mitogen TB Test (QFT) Ag 1 TB Test (QFT) Ag 2 TB Test (QFT) TB Positive Criteria O & P Permanent Slide Blood Type Antibody Screen 07/03/19 07/03/19 07/04/19 09:43 10:30 05:00 WBC 9.4 RBC 4.13 Hgb 11.8 Hct 37.3 MCV 90.2 MCH 28.7 MCHC 31.8 L RDW 14.8 Plt Count 345 MPV 8.8 Absolute Neuts (auto) Neutrophils % Neutrophils % (Manual) Band Neutrophils % Lymphocytes % Lymphocytes % (Manual) Monocytes % Monocytes % (Manual) Eosinophils % Eosinophils % (Manual) Basophils % Basophils % (Manual) Myelocytes % (Man) Promyelocytes % (Man) Blast Cells % (Manual) Nucleated RBC % Metamyelocytes Hypochromia Platelet Estimate Polychromasia Poikilocytosis Basophilic Stippling Anisocytosis Microcytosis Macrocytosis Spherocytes Target Cells Tear Drop Cells Stomatocytes ESR PT with INR INR PTT (Actin FS) D-Dimer Anticoagulation Therapy No Result Required. Puncture Site No Result Required. Patient Temperature ABG pH 7.32 L ABG pCO2 at Pt Temp 60.2 H ABG pO2 at Pt Temp 69.4 L ABG HCO3 30.4 H ABG O2 Sat (Measured) 91.8 L ABG O2 Content 27.3 ABG Base Excess 2.0 Yousuf Test No Result Required. VBG pH POC VBG pCO2 POC VBG pO2 VBG HCO3 VBG O2 Sat ([place]) VBG Base Excess Patient On Oxygen No Result Required. O2 Delivery Device No Result Required. Oxygen Flow Rate No Result Required. Vent Mode No Result Required. Vent Rate No Result Required. Mechanical Rate No Result Required. PEEP Pressure Support Vent No Result Required. Sodium Potassium Chloride Carbon Dioxide Anion Gap BUN Creatinine Est GFR (CKD-EPI)AfAm Est GFR (CKD-EPI)NonAf POC Glucometer Random Glucose Lactic Acid Calcium Phosphorus Magnesium Ferritin Total Bilirubin Direct Bilirubin AST ALT Alkaline Phosphatase LD Total Creatine Kinase Creatine Kinase Index CK-MB (CK-2) Troponin I C-Reactive Protein B-Natriuretic Peptide Total Protein Albumin Triglycerides Lipase Interleukin 2 Interleukin 6 TSH Free T4 Urine Color Urine Appearance Urine pH Ur Specific [place] Urine Protein Urine Glucose (UA) Urine Ketones Urine Blood Urine Nitrite Urine Bilirubin Urine Urobilinogen Ur Leukocyte Esterase Urine WBC (Auto) Urine RBC (Auto) Urine Casts (Auto) U Pathogenic Cast Auto U Epithel Cells (Auto) Urine Crystals (Auto) Urine Bacteria (Auto) Urine Yeast (Auto) Stool Occult Blood Stool O & P Wet [place] Vancomycin Vancomycin Pre-Dose 6.7 COVID-19 ([facility]) CMV DNA Qual PCR Hep A IgM Ab Confirm Hepatitis A Ab Total Hep Bs Antigen Hep Bs Antibody Hep B Core Total Ab Hep B Core IgM Ab Hepatitis Be Antibody Hepatitis Be Antigen Hep C Ab Diagnostic Strongyloides IgG Ab TB Test (QFT) Nil TB Test (QFT) Mitogen TB Test (QFT) Ag 1 TB Test (QFT) Ag 2 TB Test (QFT) TB Positive Criteria O & P Permanent Slide Blood Type Antibody Screen 07/04/19 07/04/19 07/04/19 05:00 05:00 05:15 WBC RBC Hgb Hct MCV MCH MCHC RDW Plt Count MPV Absolute Neuts (auto) Neutrophils % Neutrophils % (Manual) Band Neutrophils % Lymphocytes % Lymphocytes % (Manual) Monocytes % Monocytes % (Manual) Eosinophils % Eosinophils % (Manual) Basophils % Basophils % (Manual) Myelocytes % (Man) Promyelocytes % (Man) Blast Cells % (Manual) Nucleated RBC % Metamyelocytes Hypochromia Platelet Estimate Polychromasia Poikilocytosis Basophilic Stippling Anisocytosis Microcytosis Macrocytosis Spherocytes Target Cells Tear Drop Cells Stomatocytes ESR PT with INR INR PTT (Actin FS) D-Dimer 4064 H Anticoagulation Therapy No Result Required. Puncture Site Right radial Patient Temperature ABG pH 7.35 ABG pCO2 at Pt Temp 55.9 H ABG pO2 at Pt Temp 88.0 ABG HCO3 30.2 H ABG O2 Sat (Measured) 96.4 ABG O2 Content 7.9 ABG Base Excess 4.8 H Yousuf Test Positive VBG pH POC VBG pCO2 POC VBG pO2 VBG HCO3 VBG O2 Sat ([place]) VBG Base Excess Patient On Oxygen Yes O2 Delivery Device Vent Oxygen Flow Rate 70% Vent Mode A/c Vent Rate 30 Mechanical Rate No Result Required. PEEP 12.0 Pressure Support Vent 340 Sodium 149 H Potassium 3.7 Chloride 114 H Carbon Dioxide 32 Anion Gap 3 L BUN 11.6 Creatinine 0.2 L Est GFR (CKD-EPI)AfAm 233.83 Est GFR (CKD-EPI)NonAf 201.75 POC Glucometer Random Glucose 113 H Lactic Acid Calcium 7.4 L Phosphorus 3.2 Magnesium 2.0 Ferritin Total Bilirubin 0.2 Direct Bilirubin AST 36 ALT 71 H Alkaline Phosphatase 107 LD Total Creatine Kinase Creatine Kinase Index CK-MB (CK-2) Troponin I C-Reactive Protein B-Natriuretic Peptide Total Protein 4.8 L Albumin 1.6 L Triglycerides Lipase Interleukin 2 Interleukin 6 TSH Free T4 Urine Color Urine Appearance Urine pH Ur Specific [place] Urine Protein Urine Glucose (UA) Urine Ketones Urine Blood Urine Nitrite Urine Bilirubin Urine Urobilinogen Ur Leukocyte Esterase Urine WBC (Auto) Urine RBC (Auto) Urine Casts (Auto) U Pathogenic Cast Auto U Epithel Cells (Auto) Urine Crystals (Auto) Urine Bacteria (Auto) Urine Yeast (Auto) Stool Occult Blood Stool O & P Wet [place] Vancomycin Vancomycin Pre-Dose COVID-19 ([facility]) CMV DNA Qual PCR Hep A IgM Ab Confirm Hepatitis A Ab Total Hep Bs Antigen Hep Bs Antibody Hep B Core Total Ab Hep B Core IgM Ab Hepatitis Be Antibody Hepatitis Be Antigen Hep C Ab Diagnostic Strongyloides IgG Ab TB Test (QFT) Nil TB Test (QFT) Mitogen TB Test (QFT) Ag 1 TB Test (QFT) Ag 2 TB Test (QFT) TB Positive Criteria O & P Permanent Slide Blood Type Antibody Screen 07/05/19 07/05/19 07/05/19 05:30 06:00 06:00 WBC 10.2 H RBC 3.87 L Hgb 11.4 L Hct 35.2 L MCV 90.9 MCH 29.3 MCHC 32.3 RDW 15.5 Plt Count 330 MPV 8.3 Absolute Neuts (auto) Neutrophils % Neutrophils % (Manual) Band Neutrophils % Lymphocytes % Lymphocytes % (Manual) Monocytes % Monocytes % (Manual) Eosinophils % Eosinophils % (Manual) Basophils % Basophils % (Manual) Myelocytes % (Man) Promyelocytes % (Man) Blast Cells % (Manual) Nucleated RBC % Metamyelocytes Hypochromia Platelet Estimate Polychromasia Poikilocytosis Basophilic Stippling Anisocytosis Microcytosis Macrocytosis Spherocytes Target Cells Tear Drop Cells Stomatocytes ESR PT with INR INR PTT (Actin FS) D-Dimer Anticoagulation Therapy No Result Required. Puncture Site Arterial line Patient Temperature ABG pH 7.29 L ABG pCO2 at Pt Temp 66.7 H ABG pO2 at Pt Temp 86.5 ABG HCO3 31.4 H ABG O2 Sat (Measured) 94.9 L ABG O2 Content 18.4 ABG Base Excess 3.2 H Yousuf Test Not applicable VBG pH POC VBG pCO2 POC VBG pO2 VBG HCO3 VBG O2 Sat ([place]) VBG Base Excess Patient On Oxygen Yes O2 Delivery Device Vent Oxygen Flow Rate 65% Vent Mode A/c Vent Rate 30 Mechanical Rate No Result Required. PEEP 12.0 Pressure Support Vent 340 Sodium 149 H Potassium 4.2 Chloride 112 H Carbon Dioxide 33 H Anion Gap 3 L BUN 13.8 Creatinine 0.3 L Est GFR (CKD-EPI)AfAm 197.93 Est GFR (CKD-EPI)NonAf 170.78 POC Glucometer Random Glucose 116 H Lactic Acid Calcium 7.4 L Phosphorus 3.4 Magnesium 2.2 Ferritin Total Bilirubin 0.2 Direct Bilirubin AST 36 ALT 65 H Alkaline Phosphatase 99 LD Total Creatine Kinase Creatine Kinase Index CK-MB (CK-2) Troponin I C-Reactive Protein B-Natriuretic Peptide Total Protein 4.7 L Albumin 1.7 L Triglycerides Lipase Interleukin 2 Interleukin 6 TSH Free T4 Urine Color Urine Appearance Urine pH Ur Specific [place] Urine Protein Urine Glucose (UA) Urine Ketones Urine Blood Urine Nitrite Urine Bilirubin Urine Urobilinogen Ur Leukocyte Esterase Urine WBC (Auto) Urine RBC (Auto) Urine Casts (Auto) U Pathogenic Cast Auto U Epithel Cells (Auto) Urine Crystals (Auto) Urine Bacteria (Auto) Urine Yeast (Auto) Stool Occult Blood Stool O & P Wet [place] Vancomycin Vancomycin Pre-Dose COVID-19 ([place]) CMV DNA Qual PCR Hep A IgM Ab Confirm Hepatitis A Ab Total Hep Bs Antigen Hep Bs Antibody Hep B Core Total Ab Hep B Core IgM Ab Hepatitis Be Antibody Hepatitis Be Antigen Hep C Ab Diagnostic Strongyloides IgG Ab TB Test (QFT) Nil TB Test (QFT) Mitogen TB Test (QFT) Ag 1 TB Test (QFT) Ag 2 TB Test (QFT) TB Positive Criteria O & P Permanent Slide Blood Type Antibody Screen 07/05/19 07/06/19 07/06/19 09:32 05:55 06:00 WBC 8.1 RBC 3.63 L Hgb 10.7 L Hct 32.8 L MCV 90.5 MCH 29.4 MCHC 32.5 RDW 15.2 Plt Count 279 MPV 8.8 Absolute Neuts (auto) Neutrophils % Neutrophils % (Manual) Band Neutrophils % Lymphocytes % Lymphocytes % (Manual) Monocytes % Monocytes % (Manual) Eosinophils % Eosinophils % (Manual) Basophils % Basophils % (Manual) Myelocytes % (Man) Promyelocytes % (Man) Blast Cells % (Manual) Nucleated RBC % Metamyelocytes Hypochromia Platelet Estimate Polychromasia Poikilocytosis Basophilic Stippling Anisocytosis Microcytosis Macrocytosis Spherocytes Target Cells Tear Drop Cells Stomatocytes ESR PT with INR INR PTT (Actin FS) D-Dimer Anticoagulation Therapy No Result Required. Puncture Site Left radial Patient Temperature ABG pH 7.36 ABG pCO2 at Pt Temp 56.6 H ABG pO2 at Pt Temp 94.0 ABG HCO3 30.9 H ABG O2 Sat (Measured) 96.5 ABG O2 Content 18.4 ABG Base Excess 4.4 H Yousuf Test Positive VBG pH POC VBG pCO2 POC VBG pO2 VBG HCO3 VBG O2 Sat ([place]) VBG Base Excess Patient On Oxygen Yes O2 Delivery Device Vent Oxygen Flow Rate 65% Vent Mode Ac/uc Vent Rate 30 Mechanical Rate No Result Required. PEEP 12.0 Pressure Support Vent 340 Sodium Potassium Chloride Carbon Dioxide Anion Gap BUN Creatinine Est GFR (CKD-EPI)AfAm Est GFR (CKD-EPI)NonAf POC Glucometer Random Glucose Lactic Acid Calcium Phosphorus Magnesium Ferritin Total Bilirubin Direct Bilirubin AST ALT Alkaline Phosphatase LD Total Creatine Kinase Creatine Kinase Index CK-MB (CK-2) Troponin I C-Reactive Protein B-Natriuretic Peptide Total Protein Albumin Triglycerides Lipase Interleukin 2 Interleukin 6 TSH Free T4 Urine Color Urine Appearance Urine pH Ur Specific [place] Urine Protein Urine Glucose (UA) Urine Ketones Urine Blood Urine Nitrite Urine Bilirubin Urine Urobilinogen Ur Leukocyte Esterase Urine WBC (Auto) Urine RBC (Auto) Urine Casts (Auto) U Pathogenic Cast Auto U Epithel Cells (Auto) Urine Crystals (Auto) Urine Bacteria (Auto) Urine Yeast (Auto) Stool Occult Blood Stool O & P Wet [place] Vancomycin Vancomycin Pre-Dose 7.7 COVID-19 ([place]) CMV DNA Qual PCR Hep A IgM Ab Confirm Hepatitis A Ab Total Hep Bs Antigen Hep Bs Antibody Hep B Core Total Ab Hep B Core IgM Ab Hepatitis Be Antibody Hepatitis Be Antigen Hep C Ab Diagnostic Strongyloides IgG Ab TB Test (QFT) Nil TB Test (QFT) Mitogen TB Test (QFT) Ag 1 TB Test (QFT) Ag 2 TB Test (QFT) TB Positive Criteria O & P Permanent Slide Blood Type Antibody Screen 07/06/19 07/07/19 07/08/19 06:00 16:15 05:04 WBC RBC Hgb Hct MCV MCH MCHC RDW Plt Count MPV Absolute Neuts (auto) Neutrophils % Neutrophils % (Manual) Band Neutrophils % Lymphocytes % Lymphocytes % (Manual) Monocytes % Monocytes % (Manual) Eosinophils % Eosinophils % (Manual) Basophils % Basophils % (Manual) Myelocytes % (Man) Promyelocytes % (Man) Blast Cells % (Manual) Nucleated RBC % Metamyelocytes Hypochromia Platelet Estimate Polychromasia Poikilocytosis Basophilic Stippling Anisocytosis Microcytosis Macrocytosis Spherocytes Target Cells Tear Drop Cells Stomatocytes ESR PT with INR INR PTT (Actin FS) D-Dimer Anticoagulation Therapy No Result Required. Puncture Site Arterial line Patient Temperature ABG pH 7.38 ABG pCO2 at Pt Temp 53.8 H ABG pO2 at Pt Temp 122 H ABG HCO3 30.9 H ABG O2 Sat (Measured) 98.1 H ABG O2 Content 14.5 ABG Base Excess 5.2 H Yousuf Test No Result Required. VBG pH POC VBG pCO2 POC VBG pO2 VBG HCO3 VBG O2 Sat ([place]) VBG Base Excess Patient On Oxygen Yes O2 Delivery Device Mech vent Oxygen Flow Rate No Result Required. Vent Mode No Result Required. Vent Rate No Result Required. Mechanical Rate No Result Required. PEEP 12.0 Pressure Support Vent 340 Sodium 146 H Potassium 4.0 Chloride 109 H Carbon Dioxide 32 Anion Gap 4 L BUN 15.8 Creatinine 0.2 L Est GFR (CKD-EPI)AfAm 233.83 Est GFR (CKD-EPI)NonAf 201.75 POC Glucometer 124 Random Glucose 107 H Lactic Acid Calcium 7.5 L Phosphorus 3.2 Magnesium 2.1 Ferritin Total Bilirubin Direct Bilirubin AST ALT Alkaline Phosphatase LD Total Creatine Kinase Creatine Kinase Index CK-MB (CK-2) Troponin I C-Reactive Protein B-Natriuretic Peptide Total Protein Albumin Triglycerides Lipase Interleukin 2 Interleukin 6 TSH Free T4 Urine Color Urine Appearance Urine pH Ur Specific [place] Urine Protein Urine Glucose (UA) Urine Ketones Urine Blood Urine Nitrite Urine Bilirubin Urine Urobilinogen Ur Leukocyte Esterase Urine WBC (Auto) Urine RBC (Auto) Urine Casts (Auto) U Pathogenic Cast Auto U Epithel Cells (Auto) Urine Crystals (Auto) Urine Bacteria (Auto) Urine Yeast (Auto) Stool Occult Blood Stool O & P Wet [place] Vancomycin Vancomycin Pre-Dose COVID-19 ([facility]) CMV DNA Qual PCR Hep A IgM Ab Confirm Hepatitis A Ab Total Hep Bs Antigen Hep Bs Antibody Hep B Core Total Ab Hep B Core IgM Ab Hepatitis Be Antibody Hepatitis Be Antigen Hep C Ab Diagnostic Strongyloides IgG Ab TB Test (QFT) Nil TB Test (QFT) Mitogen TB Test (QFT) Ag 1 TB Test (QFT) Ag 2 TB Test (QFT) TB Positive Criteria O & P Permanent Slide Blood Type Antibody Screen 07/08/19 07/08/19 07/08/19 05:37 05:37 11:35 WBC 10.2 H RBC 3.85 L Hgb 11.5 L Hct 34.8 L MCV 90.6 MCH 30.0 MCHC 33.1 RDW 15.2 Plt Count 251 MPV 8.6 Absolute Neuts (auto) Neutrophils % Neutrophils % (Manual) Band Neutrophils % Lymphocytes % Lymphocytes % (Manual) Monocytes % Monocytes % (Manual) Eosinophils % Eosinophils % (Manual) Basophils % Basophils % (Manual) Myelocytes % (Man) Promyelocytes % (Man) Blast Cells % (Manual) Nucleated RBC % Metamyelocytes Hypochromia Platelet Estimate Polychromasia Poikilocytosis Basophilic Stippling Anisocytosis Microcytosis Macrocytosis Spherocytes Target Cells Tear Drop Cells Stomatocytes ESR PT with INR INR PTT (Actin FS) D-Dimer Anticoagulation Therapy No Result Required. Puncture Site Left radial Patient Temperature ABG pH 7.30 L ABG pCO2 at Pt Temp 58.1 H ABG pO2 at Pt Temp 137 H ABG HCO3 27.8 H ABG O2 Sat (Measured) 98.2 H ABG O2 Content 25.6 ABG Base Excess -0.2 Yousuf Test Positive VBG pH POC VBG pCO2 POC VBG pO2 VBG HCO3 VBG O2 Sat ([place]) VBG Base Excess Patient On Oxygen Yes O2 Delivery Device Mv Oxygen Flow Rate 65 Vent Mode Ac Vent Rate 30 Mechanical Rate No Result Required. PEEP 12.0 Pressure Support Vent 340 Sodium 148 H Potassium 3.5 Chloride 113 H Carbon Dioxide 32 Anion Gap 4 L BUN 12.7 Creatinine 0.2 L Est GFR (CKD-EPI)AfAm 233.83 Est GFR (CKD-EPI)NonAf 201.75 POC Glucometer Random Glucose 84 Lactic Acid Calcium 7.7 L Phosphorus 3.7 Magnesium 2.0 Ferritin Total Bilirubin Direct Bilirubin AST ALT Alkaline Phosphatase LD Total Creatine Kinase Creatine Kinase Index CK-MB (CK-2) Troponin I C-Reactive Protein B-Natriuretic Peptide Total Protein Albumin Triglycerides Lipase Interleukin 2 Interleukin 6 TSH Free T4 Urine Color Urine Appearance Urine pH Ur Specific [place] Urine Protein Urine Glucose (UA) Urine Ketones Urine Blood Urine Nitrite Urine Bilirubin Urine Urobilinogen Ur Leukocyte Esterase Urine WBC (Auto) Urine RBC (Auto) Urine Casts (Auto) U Pathogenic Cast Auto U Epithel Cells (Auto) Urine Crystals (Auto) Urine Bacteria (Auto) Urine Yeast (Auto) Stool Occult Blood Stool O & P Wet [place] Vancomycin Vancomycin Pre-Dose COVID-19 (LEROY) CMV DNA Qual PCR Hep A IgM Ab Confirm Hepatitis A Ab Total Hep Bs Antigen Hep Bs Antibody Hep B Core Total Ab Hep B Core IgM Ab Hepatitis Be Antibody Hepatitis Be Antigen Hep C Ab Diagnostic Strongyloides IgG Ab TB Test (QFT) Nil TB Test (QFT) Mitogen TB Test (QFT) Ag 1 TB Test (QFT) Ag 2 TB Test (QFT) TB Positive Criteria O & P Permanent Slide Blood Type Antibody Screen 07/09/19 07/09/19 07/09/19 05:02 06:00 06:00 WBC 15.2 H RBC 2.97 L Hgb 8.9 L Hct 27.1 L D MCV 91.4 MCH 30.0 MCHC 32.8 RDW 15.6 Plt Count 330 D MPV 9.3 Absolute Neuts (auto) Neutrophils % Neutrophils % (Manual) Band Neutrophils % Lymphocytes % Lymphocytes % (Manual) Monocytes % Monocytes % (Manual) Eosinophils % Eosinophils % (Manual) Basophils % Basophils % (Manual) Myelocytes % (Man) Promyelocytes % (Man) Blast Cells % (Manual) Nucleated RBC % Metamyelocytes Hypochromia Platelet Estimate Polychromasia Poikilocytosis Basophilic Stippling Anisocytosis Microcytosis Macrocytosis Spherocytes Target Cells Tear Drop Cells Stomatocytes ESR PT with INR INR PTT (Actin FS) D-Dimer Anticoagulation Therapy Puncture Site Patient Temperature ABG pH ABG pCO2 at Pt Temp ABG pO2 at Pt Temp ABG HCO3 ABG O2 Sat (Measured) ABG O2 Content ABG Base Excess Yousuf Test VBG pH POC VBG pCO2 POC VBG pO2 VBG HCO3 VBG O2 Sat ([place]) VBG Base Excess Patient On Oxygen O2 Delivery Device Oxygen Flow Rate Vent Mode Vent Rate Mechanical Rate PEEP Pressure Support Vent Sodium Potassium Chloride Carbon Dioxide Anion Gap BUN Creatinine Est GFR (CKD-EPI)AfAm Est GFR (CKD-EPI)NonAf POC Glucometer 122 Random Glucose Lactic Acid Calcium Phosphorus Magnesium Ferritin Total Bilirubin Direct Bilirubin AST ALT Alkaline Phosphatase LD Total Creatine Kinase Creatine Kinase Index CK-MB (CK-2) Troponin I C-Reactive Protein B-Natriuretic Peptide Total Protein Albumin Triglycerides Lipase Interleukin 2 Interleukin 6 TSH Free T4 Urine Color Urine Appearance Urine pH Ur Specific [place] Urine Protein Urine Glucose (UA) Urine Ketones Urine Blood Urine Nitrite Urine Bilirubin Urine Urobilinogen Ur Leukocyte Esterase Urine WBC (Auto) Urine RBC (Auto) Urine Casts (Auto) U Pathogenic Cast Auto U Epithel Cells (Auto) Urine Crystals (Auto) Urine Bacteria (Auto) Urine Yeast (Auto) Stool Occult Blood Stool O & P Wet [place] Vancomycin Vancomycin Pre-Dose < 0.8 L COVID-19 (LEROY) CMV DNA Qual PCR Hep A IgM Ab Confirm Hepatitis A Ab Total Hep Bs Antigen Hep Bs Antibody Hep B Core Total Ab Hep B Core IgM Ab Hepatitis Be Antibody Hepatitis Be Antigen Hep C Ab Diagnostic Strongyloides IgG Ab TB Test (QFT) Nil TB Test (QFT) Mitogen TB Test (QFT) Ag 1 TB Test (QFT) Ag 2 TB Test (QFT) TB Positive Criteria O & P Permanent Slide Blood Type Antibody Screen 07/09/19 07/09/19 07/10/19 06:00 06:07 05:30 WBC RBC Hgb Hct MCV MCH MCHC RDW Plt Count MPV Absolute Neuts (auto) Neutrophils % Neutrophils % (Manual) Band Neutrophils % Lymphocytes % Lymphocytes % (Manual) Monocytes % Monocytes % (Manual) Eosinophils % Eosinophils % (Manual) Basophils % Basophils % (Manual) Myelocytes % (Man) Promyelocytes % (Man) Blast Cells % (Manual) Nucleated RBC % Metamyelocytes Hypochromia Platelet Estimate Polychromasia Poikilocytosis Basophilic Stippling Anisocytosis Microcytosis Macrocytosis Spherocytes Target Cells Tear Drop Cells Stomatocytes ESR PT with INR INR PTT (Actin FS) D-Dimer Anticoagulation Therapy No Result Required. Puncture Site Left radial Patient Temperature ABG pH 7.41 ABG pCO2 at Pt Temp 47.8 H ABG pO2 at Pt Temp 84.2 ABG HCO3 29.5 H ABG O2 Sat (Measured) 95.7 ABG O2 Content 17.2 ABG Base Excess 4.4 H Yousuf Test Positive VBG pH POC VBG pCO2 POC VBG pO2 VBG HCO3 VBG O2 Sat ([place]) VBG Base Excess Patient On Oxygen Yes O2 Delivery Device Vent Oxygen Flow Rate 50% Vent Mode A/c Vent Rate 32 Mechanical Rate No Result Required. PEEP 12.0 Pressure Support Vent 340 Sodium 139 Potassium 4.2 Chloride 101 Carbon Dioxide 37 H Anion Gap 2 L BUN 39.7 H Creatinine 0.3 L Est GFR (CKD-EPI)AfAm 197.93 Est GFR (CKD-EPI)NonAf 170.78 POC Glucometer Random Glucose 114 H Lactic Acid Calcium 7.7 L Phosphorus 2.5 Magnesium 1.4 L Ferritin Total Bilirubin 0.5 Direct Bilirubin AST 47 H ALT 141 H Alkaline Phosphatase 200 H LD Total Creatine Kinase Creatine Kinase Index CK-MB (CK-2) Troponin I C-Reactive Protein B-Natriuretic Peptide Total Protein 4.4 L Albumin 1.4 L Triglycerides Lipase Interleukin 2 Interleukin 6 TSH Free T4 Urine Color Urine Appearance Urine pH Ur Specific [place] Urine Protein Urine Glucose (UA) Urine Ketones Urine Blood Urine Nitrite Urine Bilirubin Urine Urobilinogen Ur Leukocyte Esterase Urine WBC (Auto) Urine RBC (Auto) Urine Casts (Auto) U Pathogenic Cast Auto U Epithel Cells (Auto) Urine Crystals (Auto) Urine Bacteria (Auto) Urine Yeast (Auto) Stool Occult Blood Stool O & P Wet [place] Vancomycin Vancomycin Pre-Dose 14.8 H COVID-19 (LEROY) CMV DNA Qual PCR Hep A IgM Ab Confirm Hepatitis A Ab Total Hep Bs Antigen Hep Bs Antibody Hep B Core Total Ab Hep B Core IgM Ab Hepatitis Be Antibody Hepatitis Be Antigen Hep C Ab Diagnostic Strongyloides IgG Ab TB Test (QFT) Nil TB Test (QFT) Mitogen TB Test (QFT) Ag 1 TB Test (QFT) Ag 2 TB Test (QFT) TB Positive Criteria O & P Permanent Slide Blood Type Antibody Screen 07/10/19 07/10/19 07/10/19 05:30 05:30 05:30 WBC 5.5 RBC 3.62 L Hgb 10.9 L Hct 32.7 L D MCV 90.5 MCH 30.2 MCHC 33.4 RDW 17.4 H Plt Count 212 D MPV 9.9 Absolute Neuts (auto) Neutrophils % Neutrophils % (Manual) Band Neutrophils % Lymphocytes % Lymphocytes % (Manual) Monocytes % Monocytes % (Manual) Eosinophils % Eosinophils % (Manual) Basophils % Basophils % (Manual) Myelocytes % (Man) Promyelocytes % (Man) Blast Cells % (Manual) Nucleated RBC % Metamyelocytes Hypochromia Platelet Estimate Polychromasia Poikilocytosis Basophilic Stippling Anisocytosis Microcytosis Macrocytosis Spherocytes Target Cells Tear Drop Cells Stomatocytes ESR PT with INR INR PTT (Actin FS) D-Dimer Anticoagulation Therapy No Result Required. Puncture Site Arterial line Patient Temperature ABG pH 7.43 ABG pCO2 at Pt Temp 43.2 ABG pO2 at Pt Temp 83.2 ABG HCO3 28.2 H ABG O2 Sat (Measured) 96.5 ABG O2 Content No Result Required. ABG Base Excess 3.5 H Yousuf Test Not applicable VBG pH POC VBG pCO2 POC VBG pO2 VBG HCO3 VBG O2 Sat ([place]) VBG Base Excess Patient On Oxygen Yes O2 Delivery Device Vent Oxygen Flow Rate 40% Vent Mode A/c Vent Rate 32 Mechanical Rate Yes PEEP 12.0 Pressure Support Vent 340 Sodium 146 H Potassium 3.2 L Chloride 109 H Carbon Dioxide 30 Anion Gap 7 L BUN 12.9 Creatinine 0.2 L Est GFR (CKD-EPI)AfAm 233.83 Est GFR (CKD-EPI)NonAf 201.75 POC Glucometer Random Glucose 85 Lactic Acid Calcium 7.5 L Phosphorus 4.5 Magnesium 1.8 Ferritin Total Bilirubin 0.3 Direct Bilirubin 0.1 AST 34 ALT 54 Alkaline Phosphatase 84 LD Total Creatine Kinase Creatine Kinase Index CK-MB (CK-2) Troponin I C-Reactive Protein B-Natriuretic Peptide Total Protein 4.3 L Albumin 1.9 L Triglycerides Lipase Interleukin 2 Interleukin 6 TSH Free T4 Urine Color Urine Appearance Urine pH Ur Specific [place] Urine Protein Urine Glucose (UA) Urine Ketones Urine Blood Urine Nitrite Urine Bilirubin Urine Urobilinogen Ur Leukocyte Esterase Urine WBC (Auto) Urine RBC (Auto) Urine Casts (Auto) U Pathogenic Cast Auto U Epithel Cells (Auto) Urine Crystals (Auto) Urine Bacteria (Auto) Urine Yeast (Auto) Stool Occult Blood Stool O & P Wet [place] Vancomycin Vancomycin Pre-Dose COVID-19 (LEROY) CMV DNA Qual PCR Hep A IgM Ab Confirm Hepatitis A Ab Total Hep Bs Antigen Hep Bs Antibody Hep B Core Total Ab Hep B Core IgM Ab Hepatitis Be Antibody Hepatitis Be Antigen Hep C Ab Diagnostic Strongyloides IgG Ab TB Test (QFT) Nil TB Test (QFT) Mitogen TB Test (QFT) Ag 1 TB Test (QFT) Ag 2 TB Test (QFT) TB Positive Criteria O & P Permanent Slide Blood Type Antibody Screen 07/11/19 07/11/19 07/11/19 05:15 05:15 05:30 WBC 5.6 RBC 3.79 L Hgb 11.5 L Hct 34.2 L MCV 90.0 MCH 30.3 MCHC 33.7 RDW 17.6 H Plt Count 193 MPV 9.9 Absolute Neuts (auto) Neutrophils % Neutrophils % (Manual) Band Neutrophils % Lymphocytes % Lymphocytes % (Manual) Monocytes % Monocytes % (Manual) Eosinophils % Eosinophils % (Manual) Basophils % Basophils % (Manual) Myelocytes % (Man) Promyelocytes % (Man) Blast Cells % (Manual) Nucleated RBC % Metamyelocytes Hypochromia Platelet Estimate Polychromasia Poikilocytosis Basophilic Stippling Anisocytosis Microcytosis Macrocytosis Spherocytes Target Cells Tear Drop Cells Stomatocytes ESR PT with INR INR PTT (Actin FS) D-Dimer Anticoagulation Therapy No Result Required. Puncture Site Arterial line Patient Temperature 98.6 ABG pH 7.35 ABG pCO2 at Pt Temp 50.0 H ABG pO2 at Pt Temp 74.3 L ABG HCO3 27.2 H ABG O2 Sat (Measured) 94.2 L ABG O2 Content No Result Required. ABG Base Excess 1.0 Yuosuf Test Positive VBG pH POC VBG pCO2 POC VBG pO2 VBG HCO3 VBG O2 Sat ([place]) VBG Base Excess Patient On Oxygen Yes O2 Delivery Device Vent Oxygen Flow Rate 40% Vent Mode A/c Vent Rate 25 Mechanical Rate No Result Required. PEEP 8.0 Pressure Support Vent 340 Sodium 144 Potassium 3.6 Chloride 109 H Carbon Dioxide 33 H Anion Gap 3 L BUN 12.0 Creatinine 0.3 L Est GFR (CKD-EPI)AfAm 197.93 Est GFR (CKD-EPI)NonAf 170.78 POC Glucometer Random Glucose 100 Lactic Acid Calcium 7.7 L Phosphorus 4.8 Magnesium 1.9 Ferritin Total Bilirubin 0.3 Direct Bilirubin AST 45 H ALT 67 H Alkaline Phosphatase 96 LD Total Creatine Kinase Creatine Kinase Index CK-MB (CK-2) Troponin I C-Reactive Protein B-Natriuretic Peptide Total Protein 4.8 L Albumin 2.0 L Triglycerides Lipase Interleukin 2 Interleukin 6 TSH Free T4 Urine Color Urine Appearance Urine pH Ur Specific [place] Urine Protein Urine Glucose (UA) Urine Ketones Urine Blood Urine Nitrite Urine Bilirubin Urine Urobilinogen Ur Leukocyte Esterase Urine WBC (Auto) Urine RBC (Auto) Urine Casts (Auto) U Pathogenic Cast Auto U Epithel Cells (Auto) Urine Crystals (Auto) Urine Bacteria (Auto) Urine Yeast (Auto) Stool Occult Blood Stool O & P Wet [place] Vancomycin Vancomycin Pre-Dose COVID-19 (LEROY) CMV DNA Qual PCR Hep A IgM Ab Confirm Hepatitis A Ab Total Hep Bs Antigen Hep Bs Antibody Hep B Core Total Ab Hep B Core IgM Ab Hepatitis Be Antibody Hepatitis Be Antigen Hep C Ab Diagnostic Strongyloides IgG Ab TB Test (QFT) Nil TB Test (QFT) Mitogen TB Test (QFT) Ag 1 TB Test (QFT) Ag 2 TB Test (QFT) TB Positive Criteria O & P Permanent Slide Blood Type Antibody Screen 07/12/19 07/12/19 07/12/19 05:20 06:00 06:00 WBC 7.0 RBC 3.95 L Hgb 11.9 Hct 36.1 MCV 91.5 MCH 30.2 MCHC 33.0 RDW 17.7 H Plt Count 179 MPV 9.6 Absolute Neuts (auto) Neutrophils % Neutrophils % (Manual) Band Neutrophils % Lymphocytes % Lymphocytes % (Manual) Monocytes % Monocytes % (Manual) Eosinophils % Eosinophils % (Manual) Basophils % Basophils % (Manual) Myelocytes % (Man) Promyelocytes % (Man) Blast Cells % (Manual) Nucleated RBC % Metamyelocytes Hypochromia Platelet Estimate Polychromasia Poikilocytosis Basophilic Stippling Anisocytosis Microcytosis Macrocytosis Spherocytes Target Cells Tear Drop Cells Stomatocytes ESR PT with INR INR PTT (Actin FS) D-Dimer Anticoagulation Therapy No Result Required. Puncture Site Arterial line Patient Temperature ABG pH 7.31 L ABG pCO2 at Pt Temp 68.3 H ABG pO2 at Pt Temp 90.4 ABG HCO3 33.9 H ABG O2 Sat (Measured) 95.9 ABG O2 Content No Result Required. ABG Base Excess 5.4 H Yousuf Test Positive VBG pH POC VBG pCO2 POC VBG pO2 VBG HCO3 VBG O2 Sat ([place]) VBG Base Excess Patient On Oxygen Yes O2 Delivery Device Vent Oxygen Flow Rate 60% Vent Mode Vol a/c Vent Rate 16 Mechanical Rate No Result Required. PEEP 10.0 Pressure Support Vent 360 Sodium 143 Potassium 3.7 Chloride 106 Carbon Dioxide 33 H Anion Gap 4 L BUN 14.6 Creatinine 0.3 L Est GFR (CKD-EPI)AfAm 197.93 Est GFR (CKD-EPI)NonAf 170.78 POC Glucometer Random Glucose 104 Lactic Acid Calcium 7.6 L Phosphorus 4.4 Magnesium 1.9 Ferritin Total Bilirubin Direct Bilirubin AST ALT Alkaline Phosphatase LD Total Creatine Kinase Creatine Kinase Index CK-MB (CK-2) Troponin I C-Reactive Protein B-Natriuretic Peptide Total Protein Albumin Triglycerides Lipase Interleukin 2 Interleukin 6 TSH Free T4 Urine Color Urine Appearance Urine pH Ur Specific [place] Urine Protein Urine Glucose (UA) Urine Ketones Urine Blood Urine Nitrite Urine Bilirubin Urine Urobilinogen Ur Leukocyte Esterase Urine WBC (Auto) Urine RBC (Auto) Urine Casts (Auto) U Pathogenic Cast Auto U Epithel Cells (Auto) Urine Crystals (Auto) Urine Bacteria (Auto) Urine Yeast (Auto) Stool Occult Blood Stool O & P Wet [place] Vancomycin Vancomycin Pre-Dose COVID-19 (LREOY) CMV DNA Qual PCR Hep A IgM Ab Confirm Hepatitis A Ab Total Hep Bs Antigen Hep Bs Antibody Hep B Core Total Ab Hep B Core IgM Ab Hepatitis Be Antibody Hepatitis Be Antigen Hep C Ab Diagnostic Strongyloides IgG Ab TB Test (QFT) Nil TB Test (QFT) Mitogen TB Test (QFT) Ag 1 TB Test (QFT) Ag 2 TB Test (QFT) TB Positive Criteria O & P Permanent Slide Blood Type Antibody Screen 07/13/19 07/13/19 07/13/19 05:45 05:45 06:00 WBC 5.9 RBC 3.70 L Hgb 11.0 L Hct 34.0 L MCV 91.8 MCH 29.7 MCHC 32.4 RDW 18.2 H Plt Count 135 D MPV 9.7 Absolute Neuts (auto) Neutrophils % Neutrophils % (Manual) Band Neutrophils % Lymphocytes % Lymphocytes % (Manual) Monocytes % Monocytes % (Manual) Eosinophils % Eosinophils % (Manual) Basophils % Basophils % (Manual) Myelocytes % (Man) Promyelocytes % (Man) Blast Cells % (Manual) Nucleated RBC % Metamyelocytes Hypochromia Platelet Estimate Polychromasia Poikilocytosis Basophilic Stippling Anisocytosis Microcytosis Macrocytosis Spherocytes Target Cells Tear Drop Cells Stomatocytes ESR PT with INR INR PTT (Actin FS) D-Dimer Anticoagulation Therapy No Result Required. Puncture Site Arterial line Patient Temperature ABG pH 7.33 L ABG pCO2 at Pt Temp 62.7 H ABG pO2 at Pt Temp 120.6 H ABG HCO3 32.5 H ABG O2 Sat (Measured) 98 ABG O2 Content No Result Required. ABG Base Excess 5.1 H Yousuf Test Not applicable VBG pH POC VBG pCO2 POC VBG pO2 VBG HCO3 VBG O2 Sat ([place]) VBG Base Excess Patient On Oxygen Yes O2 Delivery Device Vent Oxygen Flow Rate 60% Vent Mode A/c Vent Rate 20 Mechanical Rate Yes PEEP 10.0 Pressure Support Vent 360 Sodium 143 Potassium 3.2 L Chloride 104 Carbon Dioxide 34 H Anion Gap 5 L BUN 11.8 Creatinine 0.2 L Est GFR (CKD-EPI)AfAm 233.83 Est GFR (CKD-EPI)NonAf 201.75 POC Glucometer Random Glucose 110 H Lactic Acid Calcium 7.8 L Phosphorus Magnesium 1.9 Ferritin Total Bilirubin 0.6 Direct Bilirubin AST 44 H ALT 51 Alkaline Phosphatase 92 LD Total Creatine Kinase Creatine Kinase Index CK-MB (CK-2) Troponin I C-Reactive Protein B-Natriuretic Peptide Total Protein 4.8 L Albumin 2.1 L Triglycerides Lipase Interleukin 2 Interleukin 6 TSH Free T4 Urine Color Urine Appearance Urine pH Ur Specific [place] Urine Protein Urine Glucose (UA) Urine Ketones Urine Blood Urine Nitrite Urine Bilirubin Urine Urobilinogen Ur Leukocyte Esterase Urine WBC (Auto) Urine RBC (Auto) Urine Casts (Auto) U Pathogenic Cast Auto U Epithel Cells (Auto) Urine Crystals (Auto) Urine Bacteria (Auto) Urine Yeast (Auto) Stool Occult Blood Stool O & P Wet [place] Vancomycin Vancomycin Pre-Dose COVID-19 ([facility]EROY) CMV DNA Qual PCR Hep A IgM Ab Confirm Hepatitis A Ab Total Hep Bs Antigen Hep Bs Antibody Hep B Core Total Ab Hep B Core IgM Ab Hepatitis Be Antibody Hepatitis Be Antigen Hep C Ab Diagnostic Strongyloides IgG Ab TB Test (QFT) Nil TB Test (QFT) Mitogen TB Test (QFT) Ag 1 TB Test (QFT) Ag 2 TB Test (QFT) TB Positive Criteria O & P Permanent Slide Blood Type Antibody Screen 07/15/19 07/16/19 07/16/19 05:30 05:30 05:30 WBC 18.4 H RBC 4.21 Hgb 12.6 Hct 39.2 D MCV 93.2 MCH 29.8 MCHC 32.0 RDW 19.9 H Plt Count 126 L MPV 10.6 Absolute Neuts (auto) 15.3 H Neutrophils % 82.9 H Neutrophils % (Manual) 29.2 L D Band Neutrophils % 53.9 Lymphocytes % 8.5 D Lymphocytes % (Manual) 5.6 L D Monocytes % 5.2 Monocytes % (Manual) 5 D Eosinophils % 2.9 D Eosinophils % (Manual) 2.3 D Basophils % 0.5 Basophils % (Manual) 0.0 Myelocytes % (Man) 0 Promyelocytes % (Man) 0 Blast Cells % (Manual) 0 Nucleated RBC % 0 Metamyelocytes 3 H D Hypochromia 0 Platelet Estimate Decreased Polychromasia 0 Poikilocytosis Basophilic Stippling Anisocytosis 0 Microcytosis 0 Macrocytosis 0 Spherocytes Target Cells Tear Drop Cells Stomatocytes ESR PT with INR INR PTT (Actin FS) D-Dimer Anticoagulation Therapy Puncture Site Patient Temperature ABG pH ABG pCO2 at Pt Temp ABG pO2 at Pt Temp ABG HCO3 ABG O2 Sat (Measured) ABG O2 Content ABG Base Excess Yousuf Test VBG pH POC VBG pCO2 POC VBG pO2 VBG HCO3 VBG O2 Sat ([place]) VBG Base Excess Patient On Oxygen O2 Delivery Device Oxygen Flow Rate Vent Mode Vent Rate Mechanical Rate PEEP Pressure Support Vent Sodium 145 147 H Potassium 3.2 L 3.3 L Chloride 109 H 111 H Carbon Dioxide 32 29 Anion Gap 4 L 7 L BUN 12.3 10.0 Creatinine 0.2 L 0.3 L Est GFR (CKD-EPI)AfAm 233.83 197.93 Est GFR (CKD-EPI)NonAf 201.75 170.78 POC Glucometer Random Glucose 113 H 108 H Lactic Acid Calcium 8.0 L 7.6 L Phosphorus 4.2 Magnesium 1.8 Ferritin Total Bilirubin 0.5 Direct Bilirubin AST 77 H ALT 95 H Alkaline Phosphatase 107 LD Total Creatine Kinase Creatine Kinase Index CK-MB (CK-2) Troponin I C-Reactive Protein B-Natriuretic Peptide Total Protein 4.6 L Albumin 2.1 L Triglycerides Lipase Interleukin 2 Interleukin 6 TSH Free T4 Urine Color Urine Appearance Urine pH Ur Specific [place] Urine Protein Urine Glucose (UA) Urine Ketones Urine Blood Urine Nitrite Urine Bilirubin Urine Urobilinogen Ur Leukocyte Esterase Urine WBC (Auto) Urine RBC (Auto) Urine Casts (Auto) U Pathogenic Cast Auto U Epithel Cells (Auto) Urine Crystals (Auto) Urine Bacteria (Auto) Urine Yeast (Auto) Stool Occult Blood Stool O & P Wet [place] Vancomycin Vancomycin Pre-Dose COVID-19 (LEROY) CMV DNA Qual PCR Hep A IgM Ab Confirm Hepatitis A Ab Total Hep Bs Antigen Hep Bs Antibody Hep B Core Total Ab Hep B Core IgM Ab Hepatitis Be Antibody Hepatitis Be Antigen Hep C Ab Diagnostic Strongyloides IgG Ab TB Test (QFT) Nil TB Test (QFT) Mitogen TB Test (QFT) Ag 1 TB Test (QFT) Ag 2 TB Test (QFT) TB Positive Criteria O & P Permanent Slide Blood Type Antibody Screen 07/16/19 07/17/19 07/17/19 11:15 05:15 05:15 WBC 16.6 H RBC 3.75 L Hgb 11.2 L Hct 34.8 L MCV 92.8 MCH 29.8 MCHC 32.1 RDW 19.0 H Plt Count 123 L MPV 9.6 Absolute Neuts (auto) 7.9 Neutrophils % 47.8 D Neutrophils % (Manual) 53.6 D Band Neutrophils % 16.5 Lymphocytes % 8.1 Lymphocytes % (Manual) 4.1 L D Monocytes % 37.5 H D Monocytes % (Manual) 5 Eosinophils % 6.6 H D Eosinophils % (Manual) 12.4 H D Basophils % 0.0 Basophils % (Manual) 0.0 Myelocytes % (Man) 0 Promyelocytes % (Man) 0 Blast Cells % (Manual) 0 Nucleated RBC % 0 Metamyelocytes 1 D Hypochromia 0 Platelet Estimate Decreased Polychromasia 1+ Poikilocytosis Basophilic Stippling Anisocytosis 0 Microcytosis 0 Macrocytosis 0 Spherocytes Target Cells Tear Drop Cells 1+ Stomatocytes ESR PT with INR INR PTT (Actin FS) D-Dimer Anticoagulation Therapy Puncture Site Patient Temperature ABG pH ABG pCO2 at Pt Temp ABG pO2 at Pt Temp ABG HCO3 ABG O2 Sat (Measured) ABG O2 Content ABG Base Excess Yousuf Test VBG pH POC VBG pCO2 POC VBG pO2 VBG HCO3 VBG O2 Sat ([place]) VBG Base Excess Patient On Oxygen O2 Delivery Device Oxygen Flow Rate Vent Mode Vent Rate Mechanical Rate PEEP Pressure Support Vent Sodium 148 H Potassium 3.3 L Chloride 112 H Carbon Dioxide 34 H Anion Gap 2 L BUN 8.0 Creatinine 0.3 L Est GFR (CKD-EPI)AfAm 197.93 Est GFR (CKD-EPI)NonAf 170.78 POC Glucometer Random Glucose 127 H Lactic Acid Calcium 7.6 L Phosphorus 3.5 Magnesium 1.9 Ferritin 99.8 Total Bilirubin 0.3 Direct Bilirubin AST 44 H ALT 53 Alkaline Phosphatase 135 H LD Total 488 H Creatine Kinase Creatine Kinase Index CK-MB (CK-2) Troponin I C-Reactive Protein 13.5 H B-Natriuretic Peptide Total Protein 4.6 L Albumin 2.0 L Triglycerides Lipase Interleukin 2 Interleukin 6 TSH Free T4 Urine Color Urine Appearance Urine pH Ur Specific [place] Urine Protein Urine Glucose (UA) Urine Ketones Urine Blood Urine Nitrite Urine Bilirubin Urine Urobilinogen Ur Leukocyte Esterase Urine WBC (Auto) Urine RBC (Auto) Urine Casts (Auto) U Pathogenic Cast Auto U Epithel Cells (Auto) Urine Crystals (Auto) Urine Bacteria (Auto) Urine Yeast (Auto) Stool Occult Blood Stool O & P Wet [place] Vancomycin Vancomycin Pre-Dose COVID-19 (LEROY) CMV DNA Qual PCR Hep A IgM Ab Confirm Hepatitis A Ab Total Hep Bs Antigen Hep Bs Antibody Hep B Core Total Ab Hep B Core IgM Ab Hepatitis Be Antibody Hepatitis Be Antigen Hep C Ab Diagnostic Strongyloides IgG Ab TB Test (QFT) Nil 0.02 TB Test (QFT) Mitogen 8.46 TB Test (QFT) Ag 1 0.05 TB Test (QFT) Ag 2 0.03 TB Test (QFT) Negative TB Positive Criteria O & P Permanent Slide Blood Type Antibody Screen 07/17/19 07/17/19 07/18/19 05:55 10:57 05:45 WBC 15.6 H RBC 3.57 L Hgb 10.8 L Hct 33.7 L MCV 94.3 MCH 30.3 MCHC 32.2 RDW 19.2 H Plt Count 124 L MPV 9.7 Absolute Neuts (auto) 10.3 H Neutrophils % 66.4 D Neutrophils % (Manual) Band Neutrophils % Lymphocytes % 18.5 D Lymphocytes % (Manual) Monocytes % 6.6 D Monocytes % (Manual) Eosinophils % 8.1 H Eosinophils % (Manual) Basophils % 0.4 D Basophils % (Manual) Myelocytes % (Man) Promyelocytes % (Man) Blast Cells % (Manual) Nucleated RBC % 0 Metamyelocytes Hypochromia Platelet Estimate Polychromasia Poikilocytosis Basophilic Stippling Anisocytosis Microcytosis Macrocytosis Spherocytes Target Cells Tear Drop Cells Stomatocytes ESR PT with INR INR PTT (Actin FS) D-Dimer Anticoagulation Therapy No Result Required. No Result Required. Puncture Site Arterial line Arterial line Patient Temperature ABG pH 7.25 L 7.24 L ABG pCO2 at Pt Temp 66.6 H 76.0 H* ABG pO2 at Pt Temp 70.8 L 58.0 L ABG HCO3 28.6 H 31.6 H ABG O2 Sat (Measured) 91.1 L 83.9 L ABG O2 Content No Result Required. No Result Required. ABG Base Excess 0.1 2.3 H Yousuf Test Not applicable No Result Required. VBG pH POC VBG pCO2 POC VBG pO2 VBG HCO3 VBG O2 Sat ([place]) VBG Base Excess Patient On Oxygen Yes Yes O2 Delivery Device Vent Vent Oxygen Flow Rate 100% 100 Vent Mode A/c An Vent Rate 20 24 Mechanical Rate No Result Required. No Result Required. PEEP 5.0 5.0 Pressure Support Vent 360 360 Sodium Potassium Chloride Carbon Dioxide Anion Gap BUN Creatinine Est GFR (CKD-EPI)AfAm Est GFR (CKD-EPI)NonAf POC Glucometer Random Glucose Lactic Acid Calcium Phosphorus Magnesium Ferritin Total Bilirubin Direct Bilirubin AST ALT Alkaline Phosphatase LD Total Creatine Kinase Creatine Kinase Index CK-MB (CK-2) Troponin I C-Reactive Protein B-Natriuretic Peptide Total Protein Albumin Triglycerides Lipase Interleukin 2 Interleukin 6 TSH Free T4 Urine Color Urine Appearance Urine pH Ur Specific [place] Urine Protein Urine Glucose (UA) Urine Ketones Urine Blood Urine Nitrite Urine Bilirubin Urine Urobilinogen Ur Leukocyte Esterase Urine WBC (Auto) Urine RBC (Auto) Urine Casts (Auto) U Pathogenic Cast Auto U Epithel Cells (Auto) Urine Crystals (Auto) Urine Bacteria (Auto) Urine Yeast (Auto) Stool Occult Blood Stool O & P Wet [place] Vancomycin Vancomycin Pre-Dose COVID-19 ([facility]EROY) CMV DNA Qual PCR Hep A IgM Ab Confirm Hepatitis A Ab Total Hep Bs Antigen Hep Bs Antibody Hep B Core Total Ab Hep B Core IgM Ab Hepatitis Be Antibody Hepatitis Be Antigen Hep C Ab Diagnostic Strongyloides IgG Ab TB Test (QFT) Nil TB Test (QFT) Mitogen TB Test (QFT) Ag 1 TB Test (QFT) Ag 2 TB Test (QFT) TB Positive Criteria O & P Permanent Slide Blood Type Antibody Screen 07/18/19 07/18/19 07/18/19 05:45 08:55 11:44 WBC RBC Hgb Hct MCV MCH MCHC RDW Plt Count MPV Absolute Neuts (auto) Neutrophils % Neutrophils % (Manual) Band Neutrophils % Lymphocytes % Lymphocytes % (Manual) Monocytes % Monocytes % (Manual) Eosinophils % Eosinophils % (Manual) Basophils % Basophils % (Manual) Myelocytes % (Man) Promyelocytes % (Man) Blast Cells % (Manual) Nucleated RBC % Metamyelocytes Hypochromia Platelet Estimate Polychromasia Poikilocytosis Basophilic Stippling Anisocytosis Microcytosis Macrocytosis Spherocytes Target Cells Tear Drop Cells Stomatocytes ESR PT with INR INR PTT (Actin FS) D-Dimer Anticoagulation Therapy No Result Required. Puncture Site Right radial Patient Temperature ABG pH 7.20 L ABG pCO2 at Pt Temp 81.8 H* ABG pO2 at Pt Temp 158.3 H ABG HCO3 30.5 H ABG O2 Sat (Measured) 98.5 H ABG O2 Content No Result Required. ABG Base Excess 0.2 Yousuf Test Positive VBG pH POC VBG pCO2 POC VBG pO2 VBG HCO3 VBG O2 Sat ([place]) VBG Base Excess Patient On Oxygen Yes O2 Delivery Device Y Oxygen Flow Rate 100 Vent Mode Vt Vent Rate 35 Mechanical Rate Vt PEEP 10.0 Pressure Support Vent 280 Sodium 144 Potassium 3.7 Chloride 106 Carbon Dioxide 34 H Anion Gap 4 L BUN 8.8 Creatinine 0.3 L Est GFR (CKD-EPI)AfAm 197.93 Est GFR (CKD-EPI)NonAf 170.78 POC Glucometer Random Glucose 110 H Lactic Acid Calcium 7.8 L Phosphorus 3.4 Magnesium 1.9 Ferritin Total Bilirubin 0.4 Direct Bilirubin AST 39 H ALT 53 Alkaline Phosphatase 144 H LD Total Creatine Kinase Creatine Kinase Index CK-MB (CK-2) Troponin I C-Reactive Protein B-Natriuretic Peptide Total Protein 4.6 L Albumin 2.0 L Triglycerides Lipase Interleukin 2 Interleukin 6 TSH Free T4 Urine Color Yellow Urine Appearance Cloudy Urine pH 6.0 Ur Specific [place] 1.025 Urine Protein Trace Urine Glucose (UA) Negative Urine Ketones Negative Urine Blood Negative Urine Nitrite Negative Urine Bilirubin Negative Urine Urobilinogen 1.0 Ur Leukocyte Esterase 1+ H Urine WBC (Auto) 735 Urine RBC (Auto) Urine Casts (Auto) 35 U Pathogenic Cast Auto None seen U Epithel Cells (Auto) 4 Urine Crystals (Auto) Urine Bacteria (Auto) 28 Urine Yeast (Auto) None seen Stool Occult Blood Stool O & P Wet [place] Vancomycin Vancomycin Pre-Dose COVID-19 ([facility]) CMV DNA Qual PCR Hep A IgM Ab Confirm Hepatitis A Ab Total Hep Bs Antigen Hep Bs Antibody Hep B Core Total Ab Hep B Core IgM Ab Hepatitis Be Antibody Hepatitis Be Antigen Hep C Ab Diagnostic Strongyloides IgG Ab TB Test (QFT) Nil TB Test (QFT) Mitogen TB Test (QFT) Ag 1 TB Test (QFT) Ag 2 TB Test (QFT) TB Positive Criteria O & P Permanent Slide Blood Type Antibody Screen 07/18/19 07/18/19 07/19/19 11:57 17:00 09:00 WBC RBC Hgb Hct MCV MCH MCHC RDW Plt Count MPV Absolute Neuts (auto) Neutrophils % Neutrophils % (Manual) Band Neutrophils % Lymphocytes % Lymphocytes % (Manual) Monocytes % Monocytes % (Manual) Eosinophils % Eosinophils % (Manual) Basophils % Basophils % (Manual) Myelocytes % (Man) Promyelocytes % (Man) Blast Cells % (Manual) Nucleated RBC % Metamyelocytes Hypochromia Platelet Estimate Polychromasia Poikilocytosis Basophilic Stippling Anisocytosis Microcytosis Macrocytosis Spherocytes Target Cells Tear Drop Cells Stomatocytes ESR PT with INR INR PTT (Actin FS) D-Dimer Anticoagulation Therapy No Result Required. Puncture Site No Result Required. Patient Temperature ABG pH 7.20 L ABG pCO2 at Pt Temp > 100.0 H* ABG pO2 at Pt Temp 108.2 H ABG HCO3 43.6 H ABG O2 Sat (Measured) 96.2 ABG O2 Content No Result Required. ABG Base Excess 11.4 H Yousuf Test No Result Required. VBG pH POC VBG pCO2 POC VBG pO2 VBG HCO3 VBG O2 Sat ([place]) VBG Base Excess Patient On Oxygen No Result Required. O2 Delivery Device No Result Required. Oxygen Flow Rate No Result Required. Vent Mode No Result Required. Vent Rate No Result Required. Mechanical Rate No Result Required. PEEP Pressure Support Vent No Result Required. Sodium 146 H Potassium 3.0 L Chloride 105 Carbon Dioxide 36 H Anion Gap 5 L BUN 9.3 Creatinine 0.3 L Est GFR (CKD-EPI)AfAm 197.93 Est GFR (CKD-EPI)NonAf 170.78 POC Glucometer Random Glucose 115 H Lactic Acid Calcium 7.6 L Phosphorus Magnesium Ferritin Total Bilirubin 0.3 Direct Bilirubin AST 42 H ALT 50 Alkaline Phosphatase 159 H LD Total Creatine Kinase Creatine Kinase Index CK-MB (CK-2) Troponin I C-Reactive Protein B-Natriuretic Peptide Total Protein 4.9 L Albumin 2.1 L Triglycerides Lipase Interleukin 2 Interleukin 6 TSH Free T4 Urine Color Urine Appearance Urine pH Ur Specific [place] Urine Protein Urine Glucose (UA) Urine Ketones Urine Blood Urine Nitrite Urine Bilirubin Urine Urobilinogen Ur Leukocyte Esterase Urine WBC (Auto) Urine RBC (Auto) Urine Casts (Auto) U Pathogenic Cast Auto U Epithel Cells (Auto) Urine Crystals (Auto) Urine Bacteria (Auto) Urine Yeast (Auto) Stool Occult Blood Stool O & P Wet [place] Vancomycin Vancomycin Pre-Dose 10.7 H COVID-19 ([facility]) CMV DNA Qual PCR Hep A IgM Ab Confirm Hepatitis A Ab Total Hep Bs Antigen Hep Bs Antibody Hep B Core Total Ab Hep B Core IgM Ab Hepatitis Be Antibody Hepatitis Be Antigen Hep C Ab Diagnostic Strongyloides IgG Ab TB Test (QFT) Nil TB Test (QFT) Mitogen TB Test (QFT) Ag 1 TB Test (QFT) Ag 2 TB Test (QFT) TB Positive Criteria O & P Permanent Slide Blood Type Antibody Screen 07/19/19 07/19/19 07/19/19 09:04 09:04 09:04 WBC 14.5 H RBC 3.76 L Hgb 11.3 L Hct 35.4 MCV 94.1 MCH 30.0 MCHC 31.8 L RDW 18.6 H Plt Count 127 L MPV 9.7 Absolute Neuts (auto) Neutrophils % Neutrophils % (Manual) Band Neutrophils % Lymphocytes % Lymphocytes % (Manual) Monocytes % Monocytes % (Manual) Eosinophils % Eosinophils % (Manual) Basophils % Basophils % (Manual) Myelocytes % (Man) Promyelocytes % (Man) Blast Cells % (Manual) Nucleated RBC % Metamyelocytes Hypochromia Platelet Estimate Polychromasia Poikilocytosis Basophilic Stippling Anisocytosis Microcytosis Macrocytosis Spherocytes Target Cells Tear Drop Cells Stomatocytes ESR PT with INR 12.50 INR 1.06 PTT (Actin FS) 38.7 H D-Dimer Anticoagulation Therapy Puncture Site Patient Temperature ABG pH ABG pCO2 at Pt Temp ABG pO2 at Pt Temp ABG HCO3 ABG O2 Sat (Measured) ABG O2 Content ABG Base Excess Yousuf Test VBG pH POC VBG pCO2 POC VBG pO2 VBG HCO3 VBG O2 Sat ([place]) VBG Base Excess Patient On Oxygen O2 Delivery Device Oxygen Flow Rate Vent Mode Vent Rate Mechanical Rate PEEP Pressure Support Vent Sodium 144 Potassium 2.9 L* Chloride 101 Carbon Dioxide 41 H Anion Gap 2 L BUN 6.7 L Creatinine 0.2 L Est GFR (CKD-EPI)AfAm 233.83 Est GFR (CKD-EPI)NonAf 201.75 POC Glucometer Random Glucose 102 Lactic Acid Calcium 7.4 L Phosphorus 3.4 Magnesium 1.8 Ferritin Total Bilirubin Direct Bilirubin AST ALT Alkaline Phosphatase LD Total Creatine Kinase Creatine Kinase Index CK-MB (CK-2) Troponin I C-Reactive Protein B-Natriuretic Peptide Total Protein Albumin Triglycerides Lipase Interleukin 2 Interleukin 6 TSH Free T4 Urine Color Urine Appearance Urine pH Ur Specific [place] Urine Protein Urine Glucose (UA) Urine Ketones Urine Blood Urine Nitrite Urine Bilirubin Urine Urobilinogen Ur Leukocyte Esterase Urine WBC (Auto) Urine RBC (Auto) Urine Casts (Auto) U Pathogenic Cast Auto U Epithel Cells (Auto) Urine Crystals (Auto) Urine Bacteria (Auto) Urine Yeast (Auto) Stool Occult Blood Stool O & P Wet [place] Vancomycin Vancomycin Pre-Dose COVID-19 ([facility]) CMV DNA Qual PCR Hep A IgM Ab Confirm Hepatitis A Ab Total Hep Bs Antigen Hep Bs Antibody Hep B Core Total Ab Hep B Core IgM Ab Hepatitis Be Antibody Hepatitis Be Antigen Hep C Ab Diagnostic Strongyloides IgG Ab TB Test (QFT) Nil TB Test (QFT) Mitogen TB Test (QFT) Ag 1 TB Test (QFT) Ag 2 TB Test (QFT) TB Positive Criteria O & P Permanent Slide Blood Type Antibody Screen 07/19/19 07/19/19 07/19/19 11:30 12:07 17:38 WBC RBC Hgb Hct MCV MCH MCHC RDW Plt Count MPV Absolute Neuts (auto) Neutrophils % Neutrophils % (Manual) Band Neutrophils % Lymphocytes % Lymphocytes % (Manual) Monocytes % Monocytes % (Manual) Eosinophils % Eosinophils % (Manual) Basophils % Basophils % (Manual) Myelocytes % (Man) Promyelocytes % (Man) Blast Cells % (Manual) Nucleated RBC % Metamyelocytes Hypochromia Platelet Estimate Polychromasia Poikilocytosis Basophilic Stippling Anisocytosis Microcytosis Macrocytosis Spherocytes Target Cells Tear Drop Cells Stomatocytes ESR PT with INR INR PTT (Actin FS) D-Dimer Anticoagulation Therapy Puncture Site Patient Temperature ABG pH ABG pCO2 at Pt Temp ABG pO2 at Pt Temp ABG HCO3 ABG O2 Sat (Measured) ABG O2 Content ABG Base Excess Yousuf Test VBG pH POC VBG pCO2 POC VBG pO2 VBG HCO3 VBG O2 Sat ([place]) VBG Base Excess Patient On Oxygen O2 Delivery Device Oxygen Flow Rate Vent Mode Vent Rate Mechanical Rate PEEP Pressure Support Vent Sodium Potassium Chloride Carbon Dioxide Anion Gap BUN Creatinine Est GFR (CKD-EPI)AfAm Est GFR (CKD-EPI)NonAf POC Glucometer 112 109 Random Glucose Lactic Acid Calcium Phosphorus Magnesium Ferritin Total Bilirubin Direct Bilirubin AST ALT Alkaline Phosphatase LD Total Creatine Kinase Creatine Kinase Index CK-MB (CK-2) Troponin I C-Reactive Protein B-Natriuretic Peptide Total Protein Albumin Triglycerides Lipase Interleukin 2 Interleukin 6 TSH Free T4 Urine Color Urine Appearance Urine pH Ur Specific [place] Urine Protein Urine Glucose (UA) Urine Ketones Urine Blood Urine Nitrite Urine Bilirubin Urine Urobilinogen Ur Leukocyte Esterase Urine WBC (Auto) Urine RBC (Auto) Urine Casts (Auto) U Pathogenic Cast Auto U Epithel Cells (Auto) Urine Crystals (Auto) Urine Bacteria (Auto) Urine Yeast (Auto) Stool Occult Blood Stool O & P Wet [place] Vancomycin Vancomycin Pre-Dose COVID-19 ([facility]) Not detected CMV DNA Qual PCR Hep A IgM Ab Confirm Hepatitis A Ab Total Hep Bs Antigen Hep Bs Antibody Hep B Core Total Ab Hep B Core IgM Ab Hepatitis Be Antibody Hepatitis Be Antigen Hep C Ab Diagnostic Strongyloides IgG Ab TB Test (QFT) Nil TB Test (QFT) Mitogen TB Test (QFT) Ag 1 TB Test (QFT) Ag 2 TB Test (QFT) TB Positive Criteria O & P Permanent Slide Blood Type Antibody Screen 07/19/19 07/20/19 07/20/19 17:45 05:00 05:00 WBC 11.2 H RBC 3.48 L Hgb 10.5 L Hct 32.4 L MCV 93.0 MCH 30.2 MCHC 32.5 RDW 18.3 H Plt Count 131 L MPV 9.3 Absolute Neuts (auto) Neutrophils % Neutrophils % (Manual) Band Neutrophils % Lymphocytes % Lymphocytes % (Manual) Monocytes % Monocytes % (Manual) Eosinophils % Eosinophils % (Manual) Basophils % Basophils % (Manual) Myelocytes % (Man) Promyelocytes % (Man) Blast Cells % (Manual) Nucleated RBC % Metamyelocytes Hypochromia Platelet Estimate Polychromasia Poikilocytosis Basophilic Stippling Anisocytosis Microcytosis Macrocytosis Spherocytes Target Cells Tear Drop Cells Stomatocytes ESR PT with INR INR PTT (Actin FS) D-Dimer Anticoagulation Therapy Puncture Site Patient Temperature ABG pH ABG pCO2 at Pt Temp ABG pO2 at Pt Temp ABG HCO3 ABG O2 Sat (Measured) ABG O2 Content ABG Base Excess Yousuf Test VBG pH POC VBG pCO2 POC VBG pO2 VBG HCO3 VBG O2 Sat ([place]) VBG Base Excess Patient On Oxygen O2 Delivery Device Oxygen Flow Rate Vent Mode Vent Rate Mechanical Rate PEEP Pressure Support Vent Sodium 144 143 Potassium 2.9 L* 2.4 L* Chloride 100 93 L Carbon Dioxide 43 H > 45 H Anion Gap 2 L 5 L BUN 9.0 7.7 Creatinine 0.3 L 0.2 L Est GFR (CKD-EPI)AfAm 197.93 233.83 Est GFR (CKD-EPI)NonAf 170.78 201.75 POC Glucometer Random Glucose 117 H 106 Lactic Acid Calcium 7.3 L 7.2 L Phosphorus 1.1 L* Magnesium 1.9 Ferritin Total Bilirubin Direct Bilirubin AST ALT Alkaline Phosphatase LD Total Creatine Kinase Creatine Kinase Index CK-MB (CK-2) Troponin I C-Reactive Protein B-Natriuretic Peptide Total Protein Albumin Triglycerides Lipase Interleukin 2 Interleukin 6 TSH Free T4 Urine Color Urine Appearance Urine pH Ur Specific [place] Urine Protein Urine Glucose (UA) Urine Ketones Urine Blood Urine Nitrite Urine Bilirubin Urine Urobilinogen Ur Leukocyte Esterase Urine WBC (Auto) Urine RBC (Auto) Urine Casts (Auto) U Pathogenic Cast Auto U Epithel Cells (Auto) Urine Crystals (Auto) Urine Bacteria (Auto) Urine Yeast (Auto) Stool Occult Blood Stool O & P Wet [place] Vancomycin Vancomycin Pre-Dose COVID-19 ([facility]) CMV DNA Qual PCR Hep A IgM Ab Confirm Hepatitis A Ab Total Hep Bs Antigen Hep Bs Antibody Hep B Core Total Ab Hep B Core IgM Ab Hepatitis Be Antibody Hepatitis Be Antigen Hep C Ab Diagnostic Strongyloides IgG Ab TB Test (QFT) Nil TB Test (QFT) Mitogen TB Test (QFT) Ag 1 TB Test (QFT) Ag 2 TB Test (QFT) TB Positive Criteria O & P Permanent Slide Blood Type Antibody Screen 07/20/19 07/20/19 07/20/19 05:30 11:25 11:38 WBC RBC Hgb Hct MCV MCH MCHC RDW Plt Count MPV Absolute Neuts (auto) Neutrophils % Neutrophils % (Manual) Band Neutrophils % Lymphocytes % Lymphocytes % (Manual) Monocytes % Monocytes % (Manual) Eosinophils % Eosinophils % (Manual) Basophils % Basophils % (Manual) Myelocytes % (Man) Promyelocytes % (Man) Blast Cells % (Manual) Nucleated RBC % Metamyelocytes Hypochromia Platelet Estimate Polychromasia Poikilocytosis Basophilic Stippling Anisocytosis Microcytosis Macrocytosis Spherocytes Target Cells Tear Drop Cells Stomatocytes ESR PT with INR INR PTT (Actin FS) D-Dimer Anticoagulation Therapy No Result Required. Puncture Site Arterial line Patient Temperature ABG pH 7.36 ABG pCO2 at Pt Temp 81.1 H* ABG pO2 at Pt Temp 142.6 H ABG HCO3 44.3 H ABG O2 Sat (Measured) 98.6 H ABG O2 Content No Result Required. ABG Base Excess 15.1 H Yousuf Test Not applicable VBG pH POC VBG pCO2 POC VBG pO2 VBG HCO3 VBG O2 Sat ([place]) VBG Base Excess Patient On Oxygen Yes O2 Delivery Device Vent Oxygen Flow Rate 100% Vent Mode A/c Vent Rate 35 Mechanical Rate No Result Required. PEEP 10.0 Pressure Support Vent 280 Sodium Potassium Chloride Carbon Dioxide Anion Gap BUN Creatinine Est GFR (CKD-EPI)AfAm Est GFR (CKD-EPI)NonAf POC Glucometer 108 Random Glucose Lactic Acid Calcium Phosphorus Magnesium Ferritin Total Bilirubin Direct Bilirubin AST ALT Alkaline Phosphatase LD Total Creatine Kinase Creatine Kinase Index CK-MB (CK-2) Troponin I C-Reactive Protein B-Natriuretic Peptide Total Protein Albumin Triglycerides Lipase Interleukin 2 Interleukin 6 TSH Free T4 Urine Color Urine Appearance Urine pH Ur Specific [place] Urine Protein Urine Glucose (UA) Urine Ketones Urine Blood Urine Nitrite Urine Bilirubin Urine Urobilinogen Ur Leukocyte Esterase Urine WBC (Auto) Urine RBC (Auto) Urine Casts (Auto) U Pathogenic Cast Auto U Epithel Cells (Auto) Urine Crystals (Auto) Urine Bacteria (Auto) Urine Yeast (Auto) Stool Occult Blood Stool O & P Wet [place] Vancomycin Vancomycin Pre-Dose 20.0 H COVID-19 ([facility]) CMV DNA Qual PCR Hep A IgM Ab Confirm Hepatitis A Ab Total Hep Bs Antigen Hep Bs Antibody Hep B Core Total Ab Hep B Core IgM Ab Hepatitis Be Antibody Hepatitis Be Antigen Hep C Ab Diagnostic Strongyloides IgG Ab TB Test (QFT) Nil TB Test (QFT) Mitogen TB Test (QFT) Ag 1 TB Test (QFT) Ag 2 TB Test (QFT) TB Positive Criteria O & P Permanent Slide Blood Type Antibody Screen 07/20/19 07/20/19 07/20/19 15:25 16:26 20:35 WBC RBC Hgb Hct MCV MCH MCHC RDW Plt Count MPV Absolute Neuts (auto) Neutrophils % Neutrophils % (Manual) Band Neutrophils % Lymphocytes % Lymphocytes % (Manual) Monocytes % Monocytes % (Manual) Eosinophils % Eosinophils % (Manual) Basophils % Basophils % (Manual) Myelocytes % (Man) Promyelocytes % (Man) Blast Cells % (Manual) Nucleated RBC % Metamyelocytes Hypochromia Platelet Estimate Polychromasia Poikilocytosis Basophilic Stippling Anisocytosis Microcytosis Macrocytosis Spherocytes Target Cells Tear Drop Cells Stomatocytes ESR PT with INR INR PTT (Actin FS) D-Dimer Anticoagulation Therapy Puncture Site Patient Temperature ABG pH ABG pCO2 at Pt Temp ABG pO2 at Pt Temp ABG HCO3 ABG O2 Sat (Measured) ABG O2 Content ABG Base Excess Yousuf Test VBG pH POC VBG pCO2 POC VBG pO2 VBG HCO3 VBG O2 Sat ([place]) VBG Base Excess Patient On Oxygen O2 Delivery Device Oxygen Flow Rate Vent Mode Vent Rate Mechanical Rate PEEP Pressure Support Vent Sodium 143 141 Potassium 2.6 L* 3.1 L Chloride 93 L 92 L Carbon Dioxide > 45 H > 45 H Anion Gap 5 L 4 L BUN 8.4 9.6 Creatinine 0.2 L 0.2 L Est GFR (CKD-EPI)AfAm 233.83 233.83 Est GFR (CKD-EPI)NonAf 201.75 201.75 POC Glucometer 133 Random Glucose 150 H 113 H Lactic Acid Calcium 7.1 L 7.3 L Phosphorus 3.0 Magnesium 2.1 Ferritin Total Bilirubin Direct Bilirubin AST ALT Alkaline Phosphatase LD Total Creatine Kinase Creatine Kinase Index CK-MB (CK-2) Troponin I C-Reactive Protein B-Natriuretic Peptide Total Protein Albumin Triglycerides Lipase Interleukin 2 Interleukin 6 TSH Free T4 Urine Color Urine Appearance Urine pH Ur Specific [place] Urine Protein Urine Glucose (UA) Urine Ketones Urine Blood Urine Nitrite Urine Bilirubin Urine Urobilinogen Ur Leukocyte Esterase Urine WBC (Auto) Urine RBC (Auto) Urine Casts (Auto) U Pathogenic Cast Auto U Epithel Cells (Auto) Urine Crystals (Auto) Urine Bacteria (Auto) Urine Yeast (Auto) Stool Occult Blood Stool O & P Wet [place] Vancomycin Vancomycin Pre-Dose COVID-19 ([facility]) CMV DNA Qual PCR Hep A IgM Ab Confirm Hepatitis A Ab Total Hep Bs Antigen Hep Bs Antibody Hep B Core Total Ab Hep B Core IgM Ab Hepatitis Be Antibody Hepatitis Be Antigen Hep C Ab Diagnostic Strongyloides IgG Ab TB Test (QFT) Nil TB Test (QFT) Mitogen TB Test (QFT) Ag 1 TB Test (QFT) Ag 2 TB Test (QFT) TB Positive Criteria O & P Permanent Slide Blood Type Antibody Screen 07/21/19 07/21/19 07/21/19 06:40 06:40 09:55 WBC 7.8 RBC 3.20 L Hgb 9.9 L Hct 29.8 L MCV 93.0 MCH 31.1 MCHC 33.4 RDW 18.2 H Plt Count 130 L MPV 8.8 Absolute Neuts (auto) 3.6 Neutrophils % 46.2 D Neutrophils % (Manual) 28.4 L D Band Neutrophils % 12.6 Lymphocytes % 19.5 Lymphocytes % (Manual) 21.1 D Monocytes % 10.8 H Monocytes % (Manual) 8 Eosinophils % 22.8 H* D Eosinophils % (Manual) 26.3 H D Basophils % 0.7 Basophils % (Manual) 0.0 Myelocytes % (Man) 0 Promyelocytes % (Man) 0 Blast Cells % (Manual) 0 Nucleated RBC % 0 Metamyelocytes 0 D Hypochromia 0 Platelet Estimate Decreased Polychromasia 1+ Poikilocytosis 1+ Basophilic Stippling 1+ Anisocytosis 1+ Microcytosis 1+ Macrocytosis 0 Spherocytes 1+ Target Cells 1+ Tear Drop Cells 1+ Stomatocytes 1+ ESR PT with INR INR PTT (Actin FS) D-Dimer Anticoagulation Therapy No Result Required. Puncture Site Arterial line Patient Temperature ABG pH 7.38 ABG pCO2 at Pt Temp 87.3 H* ABG pO2 at Pt Temp 163 H ABG HCO3 50.1 H ABG O2 Sat (Measured) 98.9 H ABG O2 Content No Result Required. ABG Base Excess 21.2 H Yousuf Test No Result Required. VBG pH POC VBG pCO2 POC VBG pO2 VBG HCO3 VBG O2 Sat ([place]) VBG Base Excess Patient On Oxygen Yes O2 Delivery Device No Result Required. Oxygen Flow Rate 100 Vent Mode No Result Required. Vent Rate 35 Mechanical Rate No Result Required. PEEP Pressure Support Vent 280 Sodium 141 Potassium 3.6 Chloride 91 L Carbon Dioxide > 45 H Anion Gap 5 L BUN 8.7 Creatinine 0.2 L Est GFR (CKD-EPI)AfAm 233.83 Est GFR (CKD-EPI)NonAf 201.75 POC Glucometer Random Glucose 124 H Lactic Acid Calcium 7.1 L Phosphorus 2.4 L Magnesium 2.0 Ferritin Total Bilirubin 0.3 Direct Bilirubin AST 44 H ALT 36 Alkaline Phosphatase 119 H LD Total Creatine Kinase Creatine Kinase Index CK-MB (CK-2) Troponin I C-Reactive Protein B-Natriuretic Peptide Total Protein 4.4 L Albumin 1.9 L Triglycerides Lipase Interleukin 2 Interleukin 6 TSH Free T4 Urine Color Urine Appearance Urine pH Ur Specific [place] Urine Protein Urine Glucose (UA) Urine Ketones Urine Blood Urine Nitrite Urine Bilirubin Urine Urobilinogen Ur Leukocyte Esterase Urine WBC (Auto) Urine RBC (Auto) Urine Casts (Auto) U Pathogenic Cast Auto U Epithel Cells (Auto) Urine Crystals (Auto) Urine Bacteria (Auto) Urine Yeast (Auto) Stool Occult Blood Stool O & P Wet [place] Vancomycin Vancomycin Pre-Dose COVID-19 ([facility]) CMV DNA Qual PCR Hep A IgM Ab Confirm Hepatitis A Ab Total Hep Bs Antigen Hep Bs Antibody Hep B Core Total Ab Hep B Core IgM Ab Hepatitis Be Antibody Hepatitis Be Antigen Hep C Ab Diagnostic Strongyloides IgG Ab TB Test (QFT) Nil TB Test (QFT) Mitogen TB Test (QFT) Ag 1 TB Test (QFT) Ag 2 TB Test (QFT) TB Positive Criteria O & P Permanent Slide Blood Type Antibody Screen 07/21/19 07/22/19 07/22/19 15:38 06:00 13:17 WBC RBC Hgb Hct MCV MCH MCHC RDW Plt Count MPV Absolute Neuts (auto) Neutrophils % Neutrophils % (Manual) Band Neutrophils % Lymphocytes % Lymphocytes % (Manual) Monocytes % Monocytes % (Manual) Eosinophils % Eosinophils % (Manual) Basophils % Basophils % (Manual) Myelocytes % (Man) Promyelocytes % (Man) Blast Cells % (Manual) Nucleated RBC % Metamyelocytes Hypochromia Platelet Estimate Polychromasia Poikilocytosis Basophilic Stippling Anisocytosis Microcytosis Macrocytosis Spherocytes Target Cells Tear Drop Cells Stomatocytes ESR PT with INR INR PTT (Actin FS) D-Dimer Anticoagulation Therapy Puncture Site Patient Temperature ABG pH ABG pCO2 at Pt Temp ABG pO2 at Pt Temp ABG HCO3 ABG O2 Sat (Measured) ABG O2 Content ABG Base Excess Yousuf Test VBG pH POC VBG pCO2 POC VBG pO2 VBG HCO3 VBG O2 Sat ([place]) VBG Base Excess Patient On Oxygen O2 Delivery Device Oxygen Flow Rate Vent Mode Vent Rate Mechanical Rate PEEP Pressure Support Vent Sodium Potassium 3.5 Chloride Carbon Dioxide Anion Gap BUN Creatinine Est GFR (CKD-EPI)AfAm Est GFR (CKD-EPI)NonAf POC Glucometer Random Glucose Lactic Acid Calcium Phosphorus Magnesium 2.0 Ferritin Total Bilirubin Direct Bilirubin AST ALT Alkaline Phosphatase LD Total Creatine Kinase Creatine Kinase Index CK-MB (CK-2) Troponin I C-Reactive Protein B-Natriuretic Peptide Total Protein Albumin Triglycerides Lipase Interleukin 2 Interleukin 6 TSH Free T4 Urine Color Dk yellow Urine Appearance Clear Urine pH 7.0 Ur Specific [place] 1.016 Urine Protein Negative Urine Glucose (UA) Negative Urine Ketones Negative Urine Blood Negative Urine Nitrite Negative Urine Bilirubin Negative Urine Urobilinogen 4.0 e.u/dl Ur Leukocyte Esterase Negative Urine WBC (Auto) Urine RBC (Auto) Urine Casts (Auto) U Pathogenic Cast Auto U Epithel Cells (Auto) Urine Crystals (Auto) Urine Bacteria (Auto) Urine Yeast (Auto) Stool Occult Blood Stool O & P Wet [place] Vancomycin Vancomycin Pre-Dose 16.5 H COVID-19 ([facility]) CMV DNA Qual PCR Hep A IgM Ab Confirm Hepatitis A Ab Total Hep Bs Antigen Hep Bs Antibody Hep B Core Total Ab Hep B Core IgM Ab Hepatitis Be Antibody Hepatitis Be Antigen Hep C Ab Diagnostic Strongyloides IgG Ab TB Test (QFT) Nil TB Test (QFT) Mitogen TB Test (QFT) Ag 1 TB Test (QFT) Ag 2 TB Test (QFT) TB Positive Criteria O & P Permanent Slide Blood Type Antibody Screen 07/22/19 07/23/19 07/24/19 18:04 13:50 06:00 WBC RBC Hgb Hct MCV MCH MCHC RDW Plt Count MPV Absolute Neuts (auto) Neutrophils % Neutrophils % (Manual) Band Neutrophils % Lymphocytes % Lymphocytes % (Manual) Monocytes % Monocytes % (Manual) Eosinophils % Eosinophils % (Manual) Basophils % Basophils % (Manual) Myelocytes % (Man) Promyelocytes % (Man) Blast Cells % (Manual) Nucleated RBC % Metamyelocytes Hypochromia Platelet Estimate Polychromasia Poikilocytosis Basophilic Stippling Anisocytosis Microcytosis Macrocytosis Spherocytes Target Cells Tear Drop Cells Stomatocytes ESR PT with INR INR PTT (Actin FS) D-Dimer Anticoagulation Therapy Puncture Site Patient Temperature ABG pH ABG pCO2 at Pt Temp ABG pO2 at Pt Temp ABG HCO3 ABG O2 Sat (Measured) ABG O2 Content ABG Base Excess Yousuf Test VBG pH POC VBG pCO2 POC VBG pO2 VBG HCO3 VBG O2 Sat ([place]) VBG Base Excess Patient On Oxygen O2 Delivery Device Oxygen Flow Rate Vent Mode Vent Rate Mechanical Rate PEEP Pressure Support Vent Sodium 141 139 139 Potassium 3.4 L 3.5 3.1 L Chloride 87 L 85 L 84 L Carbon Dioxide > 45 H > 45 H > 45 H Anion Gap 9 9 10 BUN 7.0 7.5 10.2 Creatinine 0.2 L 0.2 L 0.2 L Est GFR (CKD-EPI)AfAm 233.83 233.83 233.83 Est GFR (CKD-EPI)NonAf 201.75 201.75 201.75 POC Glucometer Random Glucose 124 H 163 H 126 H Lactic Acid Calcium 8.0 L 8.1 L 8.2 L Phosphorus 4.5 Magnesium 2.0 2.0 2.2 Ferritin Total Bilirubin 0.4 Direct Bilirubin AST 44 H ALT 51 Alkaline Phosphatase 149 H LD Total Creatine Kinase Creatine Kinase Index CK-MB (CK-2) Troponin I C-Reactive Protein B-Natriuretic Peptide Total Protein 5.2 L Albumin 2.2 L Triglycerides Lipase Interleukin 2 Interleukin 6 TSH Free T4 Urine Color Urine Appearance Urine pH Ur Specific [place] Urine Protein Urine Glucose (UA) Urine Ketones Urine Blood Urine Nitrite Urine Bilirubin Urine Urobilinogen Ur Leukocyte Esterase Urine WBC (Auto) Urine RBC (Auto) Urine Casts (Auto) U Pathogenic Cast Auto U Epithel Cells (Auto) Urine Crystals (Auto) Urine Bacteria (Auto) Urine Yeast (Auto) Stool Occult Blood Stool O & P Wet [place] Vancomycin Vancomycin Pre-Dose COVID-19 ([facility]EROY) CMV DNA Qual PCR Hep A IgM Ab Confirm Hepatitis A Ab Total Hep Bs Antigen Hep Bs Antibody Hep B Core Total Ab Hep B Core IgM Ab Hepatitis Be Antibody Hepatitis Be Antigen Hep C Ab Diagnostic Strongyloides IgG Ab TB Test (QFT) Nil TB Test (QFT) Mitogen TB Test (QFT) Ag 1 TB Test (QFT) Ag 2 TB Test (QFT) TB Positive Criteria O & P Permanent Slide Blood Type Antibody Screen 07/24/19 07/26/19 07/26/19 06:00 05:30 13:05 WBC 11.4 H RBC 3.47 L Hgb 10.6 L Hct 32.8 L MCV 94.6 MCH 30.5 MCHC 32.2 RDW 18.7 H Plt Count 280 D MPV 8.5 Absolute Neuts (auto) 5.4 Neutrophils % 46.9 Neutrophils % (Manual) 76.0 D Band Neutrophils % 0.0 Lymphocytes % 15.2 D Lymphocytes % (Manual) 16.0 D Monocytes % 36.4 H D Monocytes % (Manual) 6 Eosinophils % 1.5 D Eosinophils % (Manual) 0.0 D Basophils % 0.0 Basophils % (Manual) 0.0 Myelocytes % (Man) 0 Promyelocytes % (Man) 0 Blast Cells % (Manual) 0 Nucleated RBC % 0 Metamyelocytes 2 D Hypochromia 0 Platelet Estimate Normal Polychromasia 0 Poikilocytosis 0 Basophilic Stippling 1+ Anisocytosis 0 Microcytosis 0 Macrocytosis 0 Spherocytes Target Cells Tear Drop Cells Stomatocytes 1+ ESR PT with INR INR PTT (Actin FS) D-Dimer Anticoagulation Therapy Puncture Site Patient Temperature ABG pH ABG pCO2 at Pt Temp ABG pO2 at Pt Temp ABG HCO3 ABG O2 Sat (Measured) ABG O2 Content ABG Base Excess Yousuf Test VBG pH POC VBG pCO2 POC VBG pO2 VBG HCO3 VBG O2 Sat ([place]) VBG Base Excess Patient On Oxygen O2 Delivery Device Oxygen Flow Rate Vent Mode Vent Rate Mechanical Rate PEEP Pressure Support Vent Sodium 137 Potassium 2.7 L* Chloride 82 L Carbon Dioxide > 45 H Anion Gap 10 BUN 10.2 Creatinine < 0.2 L Est GFR (CKD-EPI)AfAm 233.83 Est GFR (CKD-EPI)NonAf 201.75 POC Glucometer Random Glucose 112 H Lactic Acid Calcium 8.4 L Phosphorus Magnesium Ferritin Total Bilirubin Direct Bilirubin AST ALT Alkaline Phosphatase LD Total Creatine Kinase Creatine Kinase Index CK-MB (CK-2) Troponin I C-Reactive Protein B-Natriuretic Peptide Total Protein Albumin Triglycerides Lipase Interleukin 2 Interleukin 6 TSH Free T4 Urine Color Urine Appearance Urine pH Ur Specific [place] Urine Protein Urine Glucose (UA) Urine Ketones Urine Blood Urine Nitrite Urine Bilirubin Urine Urobilinogen Ur Leukocyte Esterase Urine WBC (Auto) Urine RBC (Auto) Urine Casts (Auto) U Pathogenic Cast Auto U Epithel Cells (Auto) Urine Crystals (Auto) Urine Bacteria (Auto) Urine Yeast (Auto) Stool Occult Blood Stool O & P Wet [place] Vancomycin Vancomycin Pre-Dose 14.2 H COVID-19 ([facility]ERO[facility]) CMV DNA Qual PCR Hep A IgM Ab Confirm Hepatitis A Ab Total Hep Bs Antigen Hep Bs Antibody Hep B Core Total Ab Hep B Core IgM Ab Hepatitis Be Antibody Hepatitis Be Antigen Hep C Ab Diagnostic Strongyloides IgG Ab TB Test (QFT) Nil TB Test (QFT) Mitogen TB Test (QFT) Ag 1 TB Test (QFT) Ag 2 TB Test (QFT) TB Positive Criteria O & P Permanent Slide Blood Type Antibody Screen 07/27/19 07/28/19 07/28/19 05:00 05:00 05:00 WBC RBC Hgb Hct MCV MCH MCHC RDW Plt Count MPV Absolute Neuts (auto) Neutrophils % Neutrophils % (Manual) Band Neutrophils % Lymphocytes % Lymphocytes % (Manual) Monocytes % Monocytes % (Manual) Eosinophils % Eosinophils % (Manual) Basophils % Basophils % (Manual) Myelocytes % (Man) Promyelocytes % (Man) Blast Cells % (Manual) Nucleated RBC % Metamyelocytes Hypochromia Platelet Estimate Polychromasia Poikilocytosis Basophilic Stippling Anisocytosis Microcytosis Macrocytosis Spherocytes Target Cells Tear Drop Cells Stomatocytes ESR PT with INR 11.90 INR 1.01 PTT (Actin FS) 39.4 H D-Dimer Anticoagulation Therapy Puncture Site Patient Temperature ABG pH ABG pCO2 at Pt Temp ABG pO2 at Pt Temp ABG HCO3 ABG O2 Sat (Measured) ABG O2 Content ABG Base Excess Yousuf Test VBG pH POC VBG pCO2 POC VBG pO2 VBG HCO3 VBG O2 Sat ([place]) VBG Base Excess Patient On Oxygen O2 Delivery Device Oxygen Flow Rate Vent Mode Vent Rate Mechanical Rate PEEP Pressure Support Vent Sodium 137 136 Potassium 3.3 L 3.4 L Chloride 83 L 87 L Carbon Dioxide > 45 H 43 H Anion Gap 8 6 L BUN 10.0 11.7 Creatinine 0.2 L 0.2 L Est GFR (CKD-EPI)AfAm 233.83 233.83 Est GFR (CKD-EPI)NonAf 201.75 201.75 POC Glucometer Random Glucose 136 H 91 Lactic Acid Calcium 8.3 L 8.3 L Phosphorus Magnesium 2.0 Ferritin Total Bilirubin Direct Bilirubin AST ALT Alkaline Phosphatase LD Total Creatine Kinase Creatine Kinase Index CK-MB (CK-2) Troponin I C-Reactive Protein B-Natriuretic Peptide Total Protein Albumin Triglycerides Lipase Interleukin 2 Interleukin 6 TSH Free T4 Urine Color Urine Appearance Urine pH Ur Specific [place] Urine Protein Urine Glucose (UA) Urine Ketones Urine Blood Urine Nitrite Urine Bilirubin Urine Urobilinogen Ur Leukocyte Esterase Urine WBC (Auto) Urine RBC (Auto) Urine Casts (Auto) U Pathogenic Cast Auto U Epithel Cells (Auto) Urine Crystals (Auto) Urine Bacteria (Auto) Urine Yeast (Auto) Stool Occult Blood Stool O & P Wet [place] Vancomycin Vancomycin Pre-Dose COVID-19 ([facility]) CMV DNA Qual PCR Hep A IgM Ab Confirm Hepatitis A Ab Total Hep Bs Antigen Hep Bs Antibody Hep B Core Total Ab Hep B Core IgM Ab Hepatitis Be Antibody Hepatitis Be Antigen Hep C Ab Diagnostic Strongyloides IgG Ab TB Test (QFT) Nil TB Test (QFT) Mitogen TB Test (QFT) Ag 1 TB Test (QFT) Ag 2 TB Test (QFT) TB Positive Criteria O & P Permanent Slide Blood Type Antibody Screen 07/29/19 07/29/19 07/29/19 05:12 05:15 05:15 WBC 10.8 H RBC 2.99 L Hgb 9.2 L Hct 27.6 L D MCV 92.3 MCH 30.7 MCHC 33.3 RDW 19.8 H Plt Count 388 D MPV 8.2 Absolute Neuts (auto) Neutrophils % Neutrophils % (Manual) Band Neutrophils % Lymphocytes % Lymphocytes % (Manual) Monocytes % Monocytes % (Manual) Eosinophils % Eosinophils % (Manual) Basophils % Basophils % (Manual) Myelocytes % (Man) Promyelocytes % (Man) Blast Cells % (Manual) Nucleated RBC % Metamyelocytes Hypochromia Platelet Estimate Polychromasia Poikilocytosis Basophilic Stippling Anisocytosis Microcytosis Macrocytosis Spherocytes Target Cells Tear Drop Cells Stomatocytes ESR PT with INR INR PTT (Actin FS) D-Dimer Anticoagulation Therapy No Result Required. Puncture Site Right radial Patient Temperature ABG pH 7.44 ABG pCO2 at Pt Temp 62.4 H ABG pO2 at Pt Temp 67.9 L ABG HCO3 41.6 H ABG O2 Sat (Measured) 93.6 L ABG O2 Content No Result Required. ABG Base Excess 15.3 H Yousuf Test Positive VBG pH POC VBG pCO2 POC VBG pO2 VBG HCO3 VBG O2 Sat ([place]) VBG Base Excess Patient On Oxygen Yes O2 Delivery Device Vent Oxygen Flow Rate 60 Vent Mode A/c Vent Rate 35 Mechanical Rate Ac PEEP 8.0 Pressure Support Vent 280 Sodium 136 Potassium 3.0 L Chloride 89 L Carbon Dioxide 41 H Anion Gap 6 L BUN 13.8 Creatinine < 0.2 L Est GFR (CKD-EPI)AfAm 233.83 Est GFR (CKD-EPI)NonAf 201.75 POC Glucometer Random Glucose 96 Lactic Acid Calcium 8.5 Phosphorus 3.9 Magnesium 1.8 Ferritin Total Bilirubin Direct Bilirubin AST ALT Alkaline Phosphatase LD Total Creatine Kinase Creatine Kinase Index CK-MB (CK-2) Troponin I C-Reactive Protein B-Natriuretic Peptide Total Protein Albumin Triglycerides Lipase Interleukin 2 Interleukin 6 TSH Free T4 Urine Color Urine Appearance Urine pH Ur Specific [place] Urine Protein Urine Glucose (UA) Urine Ketones Urine Blood Urine Nitrite Urine Bilirubin Urine Urobilinogen Ur Leukocyte Esterase Urine WBC (Auto) Urine RBC (Auto) Urine Casts (Auto) U Pathogenic Cast Auto U Epithel Cells (Auto) Urine Crystals (Auto) Urine Bacteria (Auto) Urine Yeast (Auto) Stool Occult Blood Stool O & P Wet [place] Vancomycin Vancomycin Pre-Dose COVID-19 ([facility]) CMV DNA Qual PCR Hep A IgM Ab Confirm Hepatitis A Ab Total Hep Bs Antigen Hep Bs Antibody Hep B Core Total Ab Hep B Core IgM Ab Hepatitis Be Antibody Hepatitis Be Antigen Hep C Ab Diagnostic Strongyloides IgG Ab TB Test (QFT) Nil TB Test (QFT) Mitogen TB Test (QFT) Ag 1 TB Test (QFT) Ag 2 TB Test (QFT) TB Positive Criteria O & P Permanent Slide Blood Type Antibody Screen 07/30/19 07/30/19 07/30/19 05:00 05:00 06:15 WBC 14.2 H RBC 2.78 L Hgb 8.4 L Hct 25.5 L MCV 91.8 MCH 30.4 MCHC 33.1 RDW 19.8 H Plt Count 347 MPV 8.4 Absolute Neuts (auto) Neutrophils % Neutrophils % (Manual) Band Neutrophils % Lymphocytes % Lymphocytes % (Manual) Monocytes % Monocytes % (Manual) Eosinophils % Eosinophils % (Manual) Basophils % Basophils % (Manual) Myelocytes % (Man) Promyelocytes % (Man) Blast Cells % (Manual) Nucleated RBC % Metamyelocytes Hypochromia Platelet Estimate Polychromasia Poikilocytosis Basophilic Stippling Anisocytosis Microcytosis Macrocytosis Spherocytes Target Cells Tear Drop Cells Stomatocytes ESR PT with INR INR PTT (Actin FS) D-Dimer Anticoagulation Therapy No Result Required. Puncture Site Right radial Patient Temperature ABG pH 7.41 ABG pCO2 at Pt Temp 63.1 H ABG pO2 at Pt Temp 84.7 ABG HCO3 39.3 H ABG O2 Sat (Measured) 96.2 ABG O2 Content No Result Required. ABG Base Excess 12.4 H Yousuf Test Positive VBG pH POC VBG pCO2 POC VBG pO2 VBG HCO3 VBG O2 Sat ([place]) VBG Base Excess Patient On Oxygen Yes O2 Delivery Device Vent Oxygen Flow Rate 60% Vent Mode A/c Vent Rate 35 Mechanical Rate No Result Required. PEEP 8.0 Pressure Support Vent 280 Sodium 136 Potassium 3.0 L Chloride 90 L Carbon Dioxide 40 H Anion Gap 6 L BUN 14.4 Creatinine 0.2 L Est GFR (CKD-EPI)AfAm 232.19 Est GFR (CKD-EPI)NonAf 200.34 POC Glucometer Random Glucose 105 Lactic Acid Calcium 8.2 L Phosphorus 4.9 Magnesium 1.8 Ferritin Total Bilirubin 0.5 Direct Bilirubin AST 31 ALT 24 Alkaline Phosphatase 131 H LD Total Creatine Kinase Creatine Kinase Index CK-MB (CK-2) Troponin I C-Reactive Protein B-Natriuretic Peptide Total Protein 5.0 L Albumin 1.9 L Triglycerides Lipase Interleukin 2 Interleukin 6 TSH Free T4 Urine Color Urine Appearance Urine pH Ur Specific [place] Urine Protein Urine Glucose (UA) Urine Ketones Urine Blood Urine Nitrite Urine Bilirubin Urine Urobilinogen Ur Leukocyte Esterase Urine WBC (Auto) Urine RBC (Auto) Urine Casts (Auto) U Pathogenic Cast Auto U Epithel Cells (Auto) Urine Crystals (Auto) Urine Bacteria (Auto) Urine Yeast (Auto) Stool Occult Blood Stool O & P Wet [place] Vancomycin Vancomycin Pre-Dose COVID-19 ([facility]) CMV DNA Qual PCR Hep A IgM Ab Confirm Hepatitis A Ab Total Hep Bs Antigen Hep Bs Antibody Hep B Core Total Ab Hep B Core IgM Ab Hepatitis Be Antibody Hepatitis Be Antigen Hep C Ab Diagnostic Strongyloides IgG Ab TB Test (QFT) Nil TB Test (QFT) Mitogen TB Test (QFT) Ag 1 TB Test (QFT) Ag 2 TB Test (QFT) TB Positive Criteria O & P Permanent Slide Blood Type Antibody Screen 07/31/19 07/31/19 07/31/19 05:50 05:50 13:23 WBC 9.4 RBC 2.99 L Hgb 9.1 L Hct 27.7 L MCV 92.6 MCH 30.5 MCHC 32.9 RDW 19.3 H Plt Count 409 MPV 8.0 Absolute Neuts (auto) 6.5 Neutrophils % 69.7 D Neutrophils % (Manual) Band Neutrophils % Lymphocytes % 10.9 D Lymphocytes % (Manual) Monocytes % 13.2 H Monocytes % (Manual) Eosinophils % 5.7 H D Eosinophils % (Manual) Basophils % 0.5 D Basophils % (Manual) Myelocytes % (Man) Promyelocytes % (Man) Blast Cells % (Manual) Nucleated RBC % 0 Metamyelocytes Hypochromia Platelet Estimate Polychromasia Poikilocytosis Basophilic Stippling Anisocytosis Microcytosis Macrocytosis Spherocytes Target Cells Tear Drop Cells Stomatocytes ESR PT with INR INR PTT (Actin FS) D-Dimer Anticoagulation Therapy Puncture Site Patient Temperature ABG pH ABG pCO2 at Pt Temp ABG pO2 at Pt Temp ABG HCO3 ABG O2 Sat (Measured) ABG O2 Content ABG Base Excess Yousuf Test VBG pH POC VBG pCO2 POC VBG pO2 VBG HCO3 VBG O2 Sat ([place]) VBG Base Excess Patient On Oxygen O2 Delivery Device Oxygen Flow Rate Vent Mode Vent Rate Mechanical Rate PEEP Pressure Support Vent Sodium 137 Potassium 3.3 L Chloride 92 L Carbon Dioxide 42 H Anion Gap 4 L BUN 11.2 Creatinine 0.2 L Est GFR (CKD-EPI)AfAm 232.19 Est GFR (CKD-EPI)NonAf 200.34 POC Glucometer Random Glucose 134 H Lactic Acid Calcium 8.8 Phosphorus Magnesium Ferritin Total Bilirubin Direct Bilirubin AST ALT Alkaline Phosphatase LD Total Creatine Kinase Creatine Kinase Index CK-MB (CK-2) Troponin I C-Reactive Protein B-Natriuretic Peptide Total Protein Albumin Triglycerides Lipase Interleukin 2 Interleukin 6 TSH Free T4 Urine Color Urine Appearance Urine pH Ur Specific [place] Urine Protein Urine Glucose (UA) Urine Ketones Urine Blood Urine Nitrite Urine Bilirubin Urine Urobilinogen Ur Leukocyte Esterase Urine WBC (Auto) Urine RBC (Auto) Urine Casts (Auto) U Pathogenic Cast Auto U Epithel Cells (Auto) Urine Crystals (Auto) Urine Bacteria (Auto) Urine Yeast (Auto) Stool Occult Blood Stool O & P Wet [place] Vancomycin Vancomycin Pre-Dose 14.5 H COVID-19 ([facility]) CMV DNA Qual PCR Hep A IgM Ab Confirm Hepatitis A Ab Total Hep Bs Antigen Hep Bs Antibody Hep B Core Total Ab Hep B Core IgM Ab Hepatitis Be Antibody Hepatitis Be Antigen Hep C Ab Diagnostic Strongyloides IgG Ab TB Test (QFT) Nil TB Test (QFT) Mitogen TB Test (QFT) Ag 1 TB Test (QFT) Ag 2 TB Test (QFT) TB Positive Criteria O & P Permanent Slide Blood Type Antibody Screen 07/31/19 07/31/19 08/01/19 20:00 23:25 06:00 WBC 14.7 H RBC 2.85 L Hgb 8.6 L Hct 26.7 L MCV 93.7 MCH 30.2 MCHC 32.3 RDW 19.0 H Plt Count 460 H MPV 8.0 Absolute Neuts (auto) 11.3 H Neutrophils % 76.5 Neutrophils % (Manual) Band Neutrophils % Lymphocytes % 11.1 Lymphocytes % (Manual) Monocytes % 11.4 H Monocytes % (Manual) Eosinophils % 0.6 D Eosinophils % (Manual) Basophils % 0.4 Basophils % (Manual) Myelocytes % (Man) Promyelocytes % (Man) Blast Cells % (Manual) Nucleated RBC % 0 Metamyelocytes Hypochromia Platelet Estimate Polychromasia Poikilocytosis Basophilic Stippling Anisocytosis Microcytosis Macrocytosis Spherocytes Target Cells Tear Drop Cells Stomatocytes ESR PT with INR INR PTT (Actin FS) D-Dimer Anticoagulation Therapy No Result Required. No Result Required. Puncture Site Right radial Left radial Patient Temperature ABG pH 7.20 L 7.30 L ABG pCO2 at Pt Temp > 100.0 H* 87.3 H* ABG pO2 at Pt Temp 84.4 139.2 H ABG HCO3 43.8 H 41.6 H ABG O2 Sat (Measured) 93.0 L 98.3 H ABG O2 Content No Result Required. No Result Required. ABG Base Excess 11.6 H 12.3 H Yousuf Test Positive No Result Required. VBG pH POC VBG pCO2 POC VBG pO2 VBG HCO3 VBG O2 Sat ([place]) VBG Base Excess Patient On Oxygen Yes Yes O2 Delivery Device 70% Ac mode Oxygen Flow Rate Vent 70% Vent Mode A/c Ac Vent Rate 35 38 Mechanical Rate No Result Required. No Result Required. PEEP 5.0 5.0 Pressure Support Vent 280 280 Sodium Potassium Chloride Carbon Dioxide Anion Gap BUN Creatinine Est GFR (CKD-EPI)AfAm Est GFR (CKD-EPI)NonAf POC Glucometer Random Glucose Lactic Acid Calcium Phosphorus Magnesium Ferritin Total Bilirubin Direct Bilirubin AST ALT Alkaline Phosphatase LD Total Creatine Kinase Creatine Kinase Index CK-MB (CK-2) Troponin I C-Reactive Protein B-Natriuretic Peptide Total Protein Albumin Triglycerides Lipase Interleukin 2 Interleukin 6 TSH Free T4 Urine Color Urine Appearance Urine pH Ur Specific [place] Urine Protein Urine Glucose (UA) Urine Ketones Urine Blood Urine Nitrite Urine Bilirubin Urine Urobilinogen Ur Leukocyte Esterase Urine WBC (Auto) Urine RBC (Auto) Urine Casts (Auto) U Pathogenic Cast Auto U Epithel Cells (Auto) Urine Crystals (Auto) Urine Bacteria (Auto) Urine Yeast (Auto) Stool Occult Blood Stool O & P Wet [place] Vancomycin Vancomycin Pre-Dose COVID-19 ([facility]) CMV DNA Qual PCR Hep A IgM Ab Confirm Hepatitis A Ab Total Hep Bs Antigen Hep Bs Antibody Hep B Core Total Ab Hep B Core IgM Ab Hepatitis Be Antibody Hepatitis Be Antigen Hep C Ab Diagnostic Strongyloides IgG Ab TB Test (QFT) Nil TB Test (QFT) Mitogen TB Test (QFT) Ag 1 TB Test (QFT) Ag 2 TB Test (QFT) TB Positive Criteria O & P Permanent Slide Blood Type Antibody Screen 08/01/19 08/02/19 08/02/19 06:00 05:30 05:35 WBC 14.9 H RBC 2.68 L Hgb 8.3 L Hct 25.1 L MCV 93.9 MCH 30.9 MCHC 32.9 RDW 18.6 H Plt Count 420 MPV 8.1 Absolute Neuts (auto) Neutrophils % Neutrophils % (Manual) Band Neutrophils % Lymphocytes % Lymphocytes % (Manual) Monocytes % Monocytes % (Manual) Eosinophils % Eosinophils % (Manual) Basophils % Basophils % (Manual) Myelocytes % (Man) Promyelocytes % (Man) Blast Cells % (Manual) Nucleated RBC % Metamyelocytes Hypochromia Platelet Estimate Polychromasia Poikilocytosis Basophilic Stippling Anisocytosis Microcytosis Macrocytosis Spherocytes Target Cells Tear Drop Cells Stomatocytes ESR PT with INR INR PTT (Actin FS) D-Dimer Anticoagulation Therapy No Result Required. Puncture Site Right radial Patient Temperature ABG pH 7.33 L ABG pCO2 at Pt Temp 79.6 H* ABG pO2 at Pt Temp 135.7 H ABG HCO3 41.0 H ABG O2 Sat (Measured) 98.4 H ABG O2 Content No Result Required. ABG Base Excess 13.0 H Yousuf Test Positive VBG pH POC VBG pCO2 POC VBG pO2 VBG HCO3 VBG O2 Sat ([place]) VBG Base Excess Patient On Oxygen Yes O2 Delivery Device Vent Oxygen Flow Rate 70% Vent Mode A/c Vent Rate 38 Mechanical Rate No Result Required. PEEP 5.0 Pressure Support Vent 280 Sodium 139 Potassium 3.5 Chloride 95 L Carbon Dioxide 41 H Anion Gap 3 L BUN 12.4 Creatinine 0.2 L Est GFR (CKD-EPI)AfAm 232.19 Est GFR (CKD-EPI)NonAf 200.34 POC Glucometer Random Glucose 135 H Lactic Acid Calcium 8.9 Phosphorus Magnesium Ferritin Total Bilirubin 0.1 L Direct Bilirubin AST 25 ALT 28 Alkaline Phosphatase 138 H LD Total Creatine Kinase Creatine Kinase Index CK-MB (CK-2) Troponin I C-Reactive Protein B-Natriuretic Peptide Total Protein 5.6 L Albumin 2.1 L Triglycerides Lipase Interleukin 2 Interleukin 6 TSH Free T4 Urine Color Urine Appearance Urine pH Ur Specific [place] Urine Protein Urine Glucose (UA) Urine Ketones Urine Blood Urine Nitrite Urine Bilirubin Urine Urobilinogen Ur Leukocyte Esterase Urine WBC (Auto) Urine RBC (Auto) Urine Casts (Auto) U Pathogenic Cast Auto U Epithel Cells (Auto) Urine Crystals (Auto) Urine Bacteria (Auto) Urine Yeast (Auto) Stool Occult Blood Stool O & P Wet [place] Vancomycin Vancomycin Pre-Dose COVID-19 ([facility]) CMV DNA Qual PCR Hep A IgM Ab Confirm Hepatitis A Ab Total Hep Bs Antigen Hep Bs Antibody Hep B Core Total Ab Hep B Core IgM Ab Hepatitis Be Antibody Hepatitis Be Antigen Hep C Ab Diagnostic Strongyloides IgG Ab TB Test (QFT) Nil TB Test (QFT) Mitogen TB Test (QFT) Ag 1 TB Test (QFT) Ag 2 TB Test (QFT) TB Positive Criteria O & P Permanent Slide Blood Type Antibody Screen 08/02/19 08/03/19 08/03/19 05:35 10:40 10:40 WBC 13.6 H RBC 2.86 L Hgb 8.6 L Hct 26.5 L MCV 92.9 MCH 30.0 MCHC 32.3 RDW 18.4 H Plt Count 554 H D MPV 8.0 Absolute Neuts (auto) 9.2 H Neutrophils % 67.3 Neutrophils % (Manual) Band Neutrophils % Lymphocytes % 16.8 D Lymphocytes % (Manual) Monocytes % 10.7 H Monocytes % (Manual) Eosinophils % 4.3 D Eosinophils % (Manual) Basophils % 0.9 Basophils % (Manual) Myelocytes % (Man) Promyelocytes % (Man) Blast Cells % (Manual) Nucleated RBC % 0 Metamyelocytes Hypochromia Platelet Estimate Polychromasia Poikilocytosis Basophilic Stippling Anisocytosis Microcytosis Macrocytosis Spherocytes Target Cells Tear Drop Cells Stomatocytes ESR PT with INR INR PTT (Actin FS) D-Dimer Anticoagulation Therapy Puncture Site Patient Temperature ABG pH ABG pCO2 at Pt Temp ABG pO2 at Pt Temp ABG HCO3 ABG O2 Sat (Measured) ABG O2 Content ABG Base Excess Yousuf Test VBG pH POC VBG pCO2 POC VBG pO2 VBG HCO3 VBG O2 Sat ([place]) VBG Base Excess Patient On Oxygen O2 Delivery Device Oxygen Flow Rate Vent Mode Vent Rate Mechanical Rate PEEP Pressure Support Vent Sodium 139 135 L Potassium 4.1 3.1 L Chloride 96 L 94 L Carbon Dioxide 39 H 35 H Anion Gap 4 L 6 L BUN 12.3 12.4 Creatinine 0.2 L 0.2 L Est GFR (CKD-EPI)AfAm 232.19 232.19 Est GFR (CKD-EPI)NonAf 200.34 200.34 POC Glucometer Random Glucose 128 H 109 H Lactic Acid Calcium 9.1 9.2 Phosphorus 4.3 3.8 Magnesium 2.1 1.8 Ferritin Total Bilirubin 0.6 Direct Bilirubin AST 36 ALT 38 Alkaline Phosphatase 150 H LD Total Creatine Kinase Creatine Kinase Index CK-MB (CK-2) Troponin I C-Reactive Protein B-Natriuretic Peptide Total Protein 5.6 L Albumin 2.1 L Triglycerides Lipase Interleukin 2 Interleukin 6 TSH Free T4 Urine Color Urine Appearance Urine pH Ur Specific [place] Urine Protein Urine Glucose (UA) Urine Ketones Urine Blood Urine Nitrite Urine Bilirubin Urine Urobilinogen Ur Leukocyte Esterase Urine WBC (Auto) Urine RBC (Auto) Urine Casts (Auto) U Pathogenic Cast Auto U Epithel Cells (Auto) Urine Crystals (Auto) Urine Bacteria (Auto) Urine Yeast (Auto) Stool Occult Blood Stool O & P Wet [place] Vancomycin Vancomycin Pre-Dose COVID-19 ([facility]) CMV DNA Qual PCR Hep A IgM Ab Confirm Hepatitis A Ab Total Hep Bs Antigen Hep Bs Antibody Hep B Core Total Ab Hep B Core IgM Ab Hepatitis Be Antibody Hepatitis Be Antigen Hep C Ab Diagnostic Strongyloides IgG Ab TB Test (QFT) Nil TB Test (QFT) Mitogen TB Test (QFT) Ag 1 TB Test (QFT) Ag 2 TB Test (QFT) TB Positive Criteria O & P Permanent Slide Blood Type Antibody Screen 08/03/19 08/03/19 08/04/19 10:45 23:45 06:00 WBC RBC Hgb Hct MCV MCH MCHC RDW Plt Count MPV Absolute Neuts (auto) Neutrophils % Neutrophils % (Manual) Band Neutrophils % Lymphocytes % Lymphocytes % (Manual) Monocytes % Monocytes % (Manual) Eosinophils % Eosinophils % (Manual) Basophils % Basophils % (Manual) Myelocytes % (Man) Promyelocytes % (Man) Blast Cells % (Manual) Nucleated RBC % Metamyelocytes Hypochromia Platelet Estimate Polychromasia Poikilocytosis Basophilic Stippling Anisocytosis Microcytosis Macrocytosis Spherocytes Target Cells Tear Drop Cells Stomatocytes ESR PT with INR INR PTT (Actin FS) D-Dimer Anticoagulation Therapy No Result Required. Puncture Site Left radial Patient Temperature ABG pH 7.39 ABG pCO2 at Pt Temp 59.7 H ABG pO2 at Pt Temp 77.1 L ABG HCO3 34.9 H ABG O2 Sat (Measured) 98.6 H ABG O2 Content No Result Required. ABG Base Excess 8.3 H Yousuf Test No Result Required. VBG pH POC VBG pCO2 POC VBG pO2 VBG HCO3 VBG O2 Sat ([place]) VBG Base Excess Patient On Oxygen Yes O2 Delivery Device No Result Required. Oxygen Flow Rate 50 Vent Mode Simv Vent Rate 10 Mechanical Rate No Result Required. PEEP 5.0 Pressure Support Vent 360 Sodium 137 Potassium 4.1 4.0 Chloride 99 Carbon Dioxide 33 H Anion Gap 6 L BUN 9.4 Creatinine 0.2 L Est GFR (CKD-EPI)AfAm 232.19 Est GFR (CKD-EPI)NonAf 200.34 POC Glucometer Random Glucose 136 H Lactic Acid Calcium 9.1 Phosphorus 5.8 H Magnesium 1.8 Ferritin Total Bilirubin Direct Bilirubin AST ALT Alkaline Phosphatase LD Total Creatine Kinase Creatine Kinase Index CK-MB (CK-2) Troponin I C-Reactive Protein B-Natriuretic Peptide Total Protein Albumin Triglycerides Lipase Interleukin 2 Interleukin 6 TSH Free T4 Urine Color Urine Appearance Urine pH Ur Specific [place] Urine Protein Urine Glucose (UA) Urine Ketones Urine Blood Urine Nitrite Urine Bilirubin Urine Urobilinogen Ur Leukocyte Esterase Urine WBC (Auto) Urine RBC (Auto) Urine Casts (Auto) U Pathogenic Cast Auto U Epithel Cells (Auto) Urine Crystals (Auto) Urine Bacteria (Auto) Urine Yeast (Auto) Stool Occult Blood Stool O & P Wet [place] Vancomycin Vancomycin Pre-Dose COVID-19 (LEROY) CMV DNA Qual PCR Hep A IgM Ab Confirm Hepatitis A Ab Total Hep Bs Antigen Hep Bs Antibody Hep B Core Total Ab Hep B Core IgM Ab Hepatitis Be Antibody Hepatitis Be Antigen Hep C Ab Diagnostic Strongyloides IgG Ab TB Test (QFT) Nil TB Test (QFT) Mitogen TB Test (QFT) Ag 1 TB Test (QFT) Ag 2 TB Test (QFT) TB Positive Criteria O & P Permanent Slide Blood Type Antibody Screen 08/04/19 08/05/19 08/05/19 06:10 05:40 06:15 WBC 9.5 RBC 2.82 L Hgb 8.4 L Hct 25.8 L MCV 91.5 MCH 29.8 MCHC 32.5 RDW 17.8 H Plt Count 513 H MPV 8.4 Absolute Neuts (auto) Neutrophils % Neutrophils % (Manual) Band Neutrophils % Lymphocytes % Lymphocytes % (Manual) Monocytes % Monocytes % (Manual) Eosinophils % Eosinophils % (Manual) Basophils % Basophils % (Manual) Myelocytes % (Man) Promyelocytes % (Man) Blast Cells % (Manual) Nucleated RBC % Metamyelocytes Hypochromia Platelet Estimate Polychromasia Poikilocytosis Basophilic Stippling Anisocytosis Microcytosis Macrocytosis Spherocytes Target Cells Tear Drop Cells Stomatocytes ESR PT with INR INR PTT (Actin FS) D-Dimer Anticoagulation Therapy No Result Required. No Result Required. Puncture Site Left radial Right radial Patient Temperature ABG pH 7.31 L 7.29 L ABG pCO2 at Pt Temp 68.9 H 66.4 H ABG pO2 at Pt Temp 78.1 L 88.2 ABG HCO3 34 H 31.9 H ABG O2 Sat (Measured) 94.0 L 95.5 ABG O2 Content No Result Required. No Result Required. ABG Base Excess 6.4 H 4.6 H Yousuf Test Positive Positive VBG pH POC VBG pCO2 POC VBG pO2 VBG HCO3 VBG O2 Sat ([place]) VBG Base Excess Patient On Oxygen Yes Unk O2 Delivery Device Vent Vent Oxygen Flow Rate 50% 60 Vent Mode A/c Vent Vent Rate 38 30 Mechanical Rate Yes No Result Required. PEEP 5.0 5.0 Pressure Support Vent 280 280 Sodium Potassium Chloride Carbon Dioxide Anion Gap BUN Creatinine Est GFR (CKD-EPI)AfAm Est GFR (CKD-EPI)NonAf POC Glucometer Random Glucose Lactic Acid Calcium Phosphorus Magnesium Ferritin Total Bilirubin Direct Bilirubin AST ALT Alkaline Phosphatase LD Total Creatine Kinase Creatine Kinase Index CK-MB (CK-2) Troponin I C-Reactive Protein B-Natriuretic Peptide Total Protein Albumin Triglycerides Lipase Interleukin 2 Interleukin 6 TSH Free T4 Urine Color Urine Appearance Urine pH Ur Specific [place] Urine Protein Urine Glucose (UA) Urine Ketones Urine Blood Urine Nitrite Urine Bilirubin Urine Urobilinogen Ur Leukocyte Esterase Urine WBC (Auto) Urine RBC (Auto) Urine Casts (Auto) U Pathogenic Cast Auto U Epithel Cells (Auto) Urine Crystals (Auto) Urine Bacteria (Auto) Urine Yeast (Auto) Stool Occult Blood Stool O & P Wet [place] Vancomycin Vancomycin Pre-Dose COVID-19 (LEROY) CMV DNA Qual PCR Hep A IgM Ab Confirm Hepatitis A Ab Total Hep Bs Antigen Hep Bs Antibody Hep B Core Total Ab Hep B Core IgM Ab Hepatitis Be Antibody Hepatitis Be Antigen Hep C Ab Diagnostic Strongyloides IgG Ab TB Test (QFT) Nil TB Test (QFT) Mitogen TB Test (QFT) Ag 1 TB Test (QFT) Ag 2 TB Test (QFT) TB Positive Criteria O & P Permanent Slide Blood Type Antibody Screen 08/06/19 08/07/19 08/07/19 05:40 06:10 13:35 WBC 8.7 RBC 2.77 L Hgb 8.3 L Hct 25.4 L MCV 91.7 MCH 29.9 MCHC 32.6 RDW 17.5 H Plt Count 477 H MPV 7.5 D Absolute Neuts (auto) Neutrophils % Neutrophils % (Manual) Band Neutrophils % Lymphocytes % Lymphocytes % (Manual) Monocytes % Monocytes % (Manual) Eosinophils % Eosinophils % (Manual) Basophils % Basophils % (Manual) Myelocytes % (Man) Promyelocytes % (Man) Blast Cells % (Manual) Nucleated RBC % Metamyelocytes Hypochromia Platelet Estimate Polychromasia Poikilocytosis Basophilic Stippling Anisocytosis Microcytosis Macrocytosis Spherocytes Target Cells Tear Drop Cells Stomatocytes ESR PT with INR INR PTT (Actin FS) D-Dimer Anticoagulation Therapy Puncture Site Patient Temperature ABG pH ABG pCO2 at Pt Temp ABG pO2 at Pt Temp ABG HCO3 ABG O2 Sat (Measured) ABG O2 Content ABG Base Excess Yousuf Test VBG pH POC VBG pCO2 POC VBG pO2 VBG HCO3 VBG O2 Sat ([place]) VBG Base Excess Patient On Oxygen O2 Delivery Device Oxygen Flow Rate Vent Mode Vent Rate Mechanical Rate PEEP Pressure Support Vent Sodium 141 Potassium 4.2 Chloride 100 Carbon Dioxide 38 H Anion Gap 3 L BUN 8.7 Creatinine 0.2 L Est GFR (CKD-EPI)AfAm 232.19 Est GFR (CKD-EPI)NonAf 200.34 POC Glucometer Random Glucose 128 H Lactic Acid Calcium 9.2 Phosphorus 3.6 Magnesium 1.9 Ferritin Total Bilirubin 0.3 Direct Bilirubin AST 23 ALT 31 Alkaline Phosphatase 129 H LD Total Creatine Kinase Creatine Kinase Index CK-MB (CK-2) Troponin I C-Reactive Protein B-Natriuretic Peptide Total Protein 5.5 L Albumin 2.0 L Triglycerides Lipase Interleukin 2 Interleukin 6 TSH Free T4 Urine Color Urine Appearance Urine pH Ur Specific [place] Urine Protein Urine Glucose (UA) Urine Ketones Urine Blood Urine Nitrite Urine Bilirubin Urine Urobilinogen Ur Leukocyte Esterase Urine WBC (Auto) Urine RBC (Auto) Urine Casts (Auto) U Pathogenic Cast Auto U Epithel Cells (Auto) Urine Crystals (Auto) Urine Bacteria (Auto) Urine Yeast (Auto) Stool Occult Blood Stool O & P Wet [place] Vancomycin Vancomycin Pre-Dose 12.4 H COVID-19 ([facility]) CMV DNA Qual PCR Hep A IgM Ab Confirm Hepatitis A Ab Total Hep Bs Antigen Hep Bs Antibody Hep B Core Total Ab Hep B Core IgM Ab Hepatitis Be Antibody Hepatitis Be Antigen Hep C Ab Diagnostic Strongyloides IgG Ab TB Test (QFT) Nil TB Test (QFT) Mitogen TB Test (QFT) Ag 1 TB Test (QFT) Ag 2 TB Test (QFT) TB Positive Criteria O & P Permanent Slide Blood Type Antibody Screen 08/08/19 08/08/19 08/09/19 06:00 23:45 08:10 WBC 16.4 H RBC 3.26 L Hgb 9.6 L Hct 29.4 L D MCV 90.2 MCH 29.6 MCHC 32.8 RDW 17.3 H Plt Count 488 H MPV 8.8 D Absolute Neuts (auto) 13.0 H Neutrophils % 79.2 Neutrophils % (Manual) Band Neutrophils % Lymphocytes % 10.2 D Lymphocytes % (Manual) Monocytes % 8.9 Monocytes % (Manual) Eosinophils % 0.8 D Eosinophils % (Manual) Basophils % 0.9 Basophils % (Manual) Myelocytes % (Man) Promyelocytes % (Man) Blast Cells % (Manual) Nucleated RBC % 0 Metamyelocytes Hypochromia Platelet Estimate Polychromasia Poikilocytosis Basophilic Stippling Anisocytosis Microcytosis Macrocytosis Spherocytes Target Cells Tear Drop Cells Stomatocytes ESR PT with INR INR PTT (Actin FS) D-Dimer Anticoagulation Therapy No Result Required. Puncture Site Right brachial Patient Temperature ABG pH 7.41 ABG pCO2 at Pt Temp 56.6 H ABG pO2 at Pt Temp 99.1 ABG HCO3 35.4 H ABG O2 Sat (Measured) 97.4 ABG O2 Content No Result Required. ABG Base Excess 9.3 H Yousuf Test Positive VBG pH POC VBG pCO2 POC VBG pO2 VBG HCO3 VBG O2 Sat ([place]) VBG Base Excess Patient On Oxygen Yes O2 Delivery Device Vent Oxygen Flow Rate 50% Vent Mode A c Vent Rate 30 Mechanical Rate No Result Required. PEEP 5.0 Pressure Support Vent 280 Sodium 136 Potassium 4.1 Chloride 97 L Carbon Dioxide 36 H Anion Gap 4 L BUN 4.7 L Creatinine < 0.2 L Est GFR (CKD-EPI)AfAm 232.19 Est GFR (CKD-EPI)NonAf 200.34 POC Glucometer Random Glucose 88 Lactic Acid Calcium 9.3 Phosphorus Magnesium Ferritin Total Bilirubin Direct Bilirubin AST ALT Alkaline Phosphatase LD Total Creatine Kinase Creatine Kinase Index CK-MB (CK-2) Troponin I C-Reactive Protein B-Natriuretic Peptide Total Protein Albumin Triglycerides Lipase Interleukin 2 Interleukin 6 TSH Free T4 Urine Color Urine Appearance Urine pH Ur Specific [place] Urine Protein Urine Glucose (UA) Urine Ketones Urine Blood Urine Nitrite Urine Bilirubin Urine Urobilinogen Ur Leukocyte Esterase Urine WBC (Auto) Urine RBC (Auto) Urine Casts (Auto) U Pathogenic Cast Auto U Epithel Cells (Auto) Urine Crystals (Auto) Urine Bacteria (Auto) Urine Yeast (Auto) Stool Occult Blood Stool O & P Wet [place] Vancomycin Vancomycin Pre-Dose COVID-19 ([facility]) CMV DNA Qual PCR Hep A IgM Ab Confirm Hepatitis A Ab Total Hep Bs Antigen Hep Bs Antibody Hep B Core Total Ab Hep B Core IgM Ab Hepatitis Be Antibody Hepatitis Be Antigen Hep C Ab Diagnostic Strongyloides IgG Ab TB Test (QFT) Nil TB Test (QFT) Mitogen TB Test (QFT) Ag 1 TB Test (QFT) Ag 2 TB Test (QFT) TB Positive Criteria O & P Permanent Slide Blood Type Antibody Screen 08/09/19 08/09/19 08/09/19 08:10 09:44 10:07 WBC RBC Hgb Hct MCV MCH MCHC RDW Plt Count MPV Absolute Neuts (auto) Neutrophils % Neutrophils % (Manual) Band Neutrophils % Lymphocytes % Lymphocytes % (Manual) Monocytes % Monocytes % (Manual) Eosinophils % Eosinophils % (Manual) Basophils % Basophils % (Manual) Myelocytes % (Man) Promyelocytes % (Man) Blast Cells % (Manual) Nucleated RBC % Metamyelocytes Hypochromia Platelet Estimate Polychromasia Poikilocytosis Basophilic Stippling Anisocytosis Microcytosis Macrocytosis Spherocytes Target Cells Tear Drop Cells Stomatocytes ESR PT with INR INR PTT (Actin FS) D-Dimer Anticoagulation Therapy Puncture Site Patient Temperature ABG pH ABG pCO2 at Pt Temp ABG pO2 at Pt Temp ABG HCO3 ABG O2 Sat (Measured) ABG O2 Content ABG Base Excess Yousuf Test VBG pH POC VBG pCO2 POC VBG pO2 VBG HCO3 VBG O2 Sat ([place]) VBG Base Excess Patient On Oxygen O2 Delivery Device Oxygen Flow Rate Vent Mode Vent Rate Mechanical Rate PEEP Pressure Support Vent Sodium 136 Potassium 3.6 Chloride 95 L Carbon Dioxide 34 H Anion Gap 7 L BUN 6.3 L Creatinine 0.2 L Est GFR (CKD-EPI)AfAm 232.19 Est GFR (CKD-EPI)NonAf 200.34 POC Glucometer Random Glucose 115 H Lactic Acid Calcium 9.1 Phosphorus Magnesium Ferritin Total Bilirubin Direct Bilirubin AST ALT Alkaline Phosphatase LD Total Creatine Kinase Creatine Kinase Index CK-MB (CK-2) Troponin I C-Reactive Protein B-Natriuretic Peptide Total Protein Albumin Triglycerides Lipase Interleukin 2 Interleukin 6 TSH Free T4 Urine Color Yellow Urine Appearance Turbid Urine pH 6.0 Ur Specific [place] 1.015 Urine Protein 1+ H Urine Glucose (UA) Negative Urine Ketones 3+ H Urine Blood 2+ H Urine Nitrite Negative Urine Bilirubin Negative Urine Urobilinogen 1.0 Ur Leukocyte Esterase 1+ H Urine WBC (Auto) 136 Urine RBC (Auto) 357 Urine Casts (Auto) 26 U Pathogenic Cast Auto 5-10 U Epithel Cells (Auto) 8 Urine Crystals (Auto) Few Urine Bacteria (Auto) 293 Urine Yeast (Auto) Stool Occult Blood Stool O & P Wet [place] Vancomycin 10.9 Vancomycin Pre-Dose COVID-19 ([facility]) CMV DNA Qual PCR Hep A IgM Ab Confirm Hepatitis A Ab Total Hep Bs Antigen Hep Bs Antibody Hep B Core Total Ab Hep B Core IgM Ab Hepatitis Be Antibody Hepatitis Be Antigen Hep C Ab Diagnostic Strongyloides IgG Ab TB Test (QFT) Nil TB Test (QFT) Mitogen TB Test (QFT) Ag 1 TB Test (QFT) Ag 2 TB Test (QFT) TB Positive Criteria O & P Permanent Slide Blood Type Antibody Screen 08/10/19 08/10/19 08/10/19 10:10 10:10 10:20 WBC 18.0 H RBC 3.28 L Hgb 9.4 L Hct 29.3 L MCV 89.4 MCH 28.7 MCHC 32.1 RDW 17.9 H Plt Count 487 H MPV 7.6 D Absolute Neuts (auto) 14.6 H Neutrophils % 81.1 Neutrophils % (Manual) Band Neutrophils % Lymphocytes % 9.5 Lymphocytes % (Manual) Monocytes % 8.7 Monocytes % (Manual) Eosinophils % 0.2 Eosinophils % (Manual) Basophils % 0.5 Basophils % (Manual) Myelocytes % (Man) Promyelocytes % (Man) Blast Cells % (Manual) Nucleated RBC % 0 Metamyelocytes Hypochromia Platelet Estimate Polychromasia Poikilocytosis Basophilic Stippling Anisocytosis Microcytosis Macrocytosis Spherocytes Target Cells Tear Drop Cells Stomatocytes ESR PT with INR INR PTT (Actin FS) D-Dimer Anticoagulation Therapy Puncture Site Patient Temperature ABG pH ABG pCO2 at Pt Temp ABG pO2 at Pt Temp ABG HCO3 ABG O2 Sat (Measured) ABG O2 Content ABG Base Excess Yousuf Test VBG pH POC VBG pCO2 POC VBG pO2 VBG HCO3 VBG O2 Sat ([place]) VBG Base Excess Patient On Oxygen O2 Delivery Device Oxygen Flow Rate Vent Mode Vent Rate Mechanical Rate PEEP Pressure Support Vent Sodium 139 Potassium 2.8 L* Chloride 96 L Carbon Dioxide 36 H Anion Gap 7 L BUN 9.5 Creatinine 0.4 L Est GFR (CKD-EPI)AfAm 174.63 Est GFR (CKD-EPI)NonAf 150.67 POC Glucometer Random Glucose 127 H Lactic Acid Calcium 9.1 Phosphorus 3.0 Magnesium 1.8 Ferritin Total Bilirubin 0.6 Direct Bilirubin AST 35 ALT 34 Alkaline Phosphatase 126 H LD Total Creatine Kinase Creatine Kinase Index CK-MB (CK-2) Troponin I C-Reactive Protein B-Natriuretic Peptide Total Protein 6.0 L Albumin 2.4 L Triglycerides Lipase Interleukin 2 Interleukin 6 TSH Free T4 Urine Color Urine Appearance Urine pH Ur Specific [place] Urine Protein Urine Glucose (UA) Urine Ketones Urine Blood Urine Nitrite Urine Bilirubin Urine Urobilinogen Ur Leukocyte Esterase Urine WBC (Auto) Urine RBC (Auto) Urine Casts (Auto) U Pathogenic Cast Auto U Epithel Cells (Auto) Urine Crystals (Auto) Urine Bacteria (Auto) Urine Yeast (Auto) Stool Occult Blood Positive Stool O & P Wet [place] Vancomycin Vancomycin Pre-Dose COVID-19 ([facility]) CMV DNA Qual PCR Hep A IgM Ab Confirm Hepatitis A Ab Total Hep Bs Antigen Hep Bs Antibody Hep B Core Total Ab Hep B Core IgM Ab Hepatitis Be Antibody Hepatitis Be Antigen Hep C Ab Diagnostic Strongyloides IgG Ab TB Test (QFT) Nil TB Test (QFT) Mitogen TB Test (QFT) Ag 1 TB Test (QFT) Ag 2 TB Test (QFT) TB Positive Criteria O & P Permanent Slide Blood Type Antibody Screen 08/11/19 08/11/19 08/12/19 06:00 06:45 09:25 WBC 16.7 H 12.1 H RBC 3.20 L 3.00 L Hgb 9.1 L 8.7 L Hct 28.4 L 27.2 L MCV 88.8 90.4 MCH 28.6 29.1 MCHC 32.2 32.1 RDW 17.7 H 17.6 H Plt Count 441 H 439 H MPV 8.4 D 8.4 Absolute Neuts (auto) 12.7 H Neutrophils % 75.8 Neutrophils % (Manual) Band Neutrophils % Lymphocytes % 13.0 D Lymphocytes % (Manual) Monocytes % 9.9 Monocytes % (Manual) Eosinophils % 0.8 D Eosinophils % (Manual) Basophils % 0.5 Basophils % (Manual) Myelocytes % (Man) Promyelocytes % (Man) Blast Cells % (Manual) Nucleated RBC % 0 Metamyelocytes Hypochromia Platelet Estimate Polychromasia Poikilocytosis Basophilic Stippling Anisocytosis Microcytosis Macrocytosis Spherocytes Target Cells Tear Drop Cells Stomatocytes ESR PT with INR INR PTT (Actin FS) D-Dimer Anticoagulation Therapy Puncture Site Patient Temperature ABG pH ABG pCO2 at Pt Temp ABG pO2 at Pt Temp ABG HCO3 ABG O2 Sat (Measured) ABG O2 Content ABG Base Excess Yousuf Test VBG pH POC VBG pCO2 POC VBG pO2 VBG HCO3 VBG O2 Sat ([place]) VBG Base Excess Patient On Oxygen O2 Delivery Device Oxygen Flow Rate Vent Mode Vent Rate Mechanical Rate PEEP Pressure Support Vent Sodium 139 Potassium 3.5 Chloride 101 Carbon Dioxide 34 H Anion Gap 5 L BUN 9.5 Creatinine 0.4 L Est GFR (CKD-EPI)AfAm 174.63 Est GFR (CKD-EPI)NonAf 150.67 POC Glucometer Random Glucose 100 Lactic Acid Calcium 9.1 Phosphorus 2.9 Magnesium 1.8 Ferritin Total Bilirubin 0.7 Direct Bilirubin AST 61 H ALT 63 H Alkaline Phosphatase 117 LD Total Creatine Kinase Creatine Kinase Index CK-MB (CK-2) Troponin I C-Reactive Protein B-Natriuretic Peptide Total Protein 5.7 L Albumin 2.3 L Triglycerides Lipase Interleukin 2 Interleukin 6 TSH Free T4 Urine Color Urine Appearance Urine pH Ur Specific [place] Urine Protein Urine Glucose (UA) Urine Ketones Urine Blood Urine Nitrite Urine Bilirubin Urine Urobilinogen Ur Leukocyte Esterase Urine WBC (Auto) Urine RBC (Auto) Urine Casts (Auto) U Pathogenic Cast Auto U Epithel Cells (Auto) Urine Crystals (Auto) Urine Bacteria (Auto) Urine Yeast (Auto) Stool Occult Blood Stool O & P Wet [place] Vancomycin Vancomycin Pre-Dose COVID-19 ([facility]) CMV DNA Qual PCR Hep A IgM Ab Confirm Hepatitis A Ab Total Hep Bs Antigen Hep Bs Antibody Hep B Core Total Ab Hep B Core IgM Ab Hepatitis Be Antibody Hepatitis Be Antigen Hep C Ab Diagnostic Strongyloides IgG Ab TB Test (QFT) Nil TB Test (QFT) Mitogen TB Test (QFT) Ag 1 TB Test (QFT) Ag 2 TB Test (QFT) TB Positive Criteria O & P Permanent Slide Blood Type Antibody Screen 08/12/19 08/12/19 08/13/19 09:25 09:25 07:50 WBC 13.6 H RBC 3.11 L Hgb 8.8 L Hct 28.3 L MCV 91.2 MCH 28.4 MCHC 31.1 L RDW 17.8 H Plt Count 376 MPV 9.8 D Absolute Neuts (auto) Neutrophils % Neutrophils % (Manual) Band Neutrophils % Lymphocytes % Lymphocytes % (Manual) Monocytes % Monocytes % (Manual) Eosinophils % Eosinophils % (Manual) Basophils % Basophils % (Manual) Myelocytes % (Man) Promyelocytes % (Man) Blast Cells % (Manual) Nucleated RBC % Metamyelocytes Hypochromia Platelet Estimate Polychromasia Poikilocytosis Basophilic Stippling Anisocytosis Microcytosis Macrocytosis Spherocytes Target Cells Tear Drop Cells Stomatocytes ESR PT with INR INR PTT (Actin FS) D-Dimer 1787 H Anticoagulation Therapy Puncture Site Patient Temperature ABG pH ABG pCO2 at Pt Temp ABG pO2 at Pt Temp ABG HCO3 ABG O2 Sat (Measured) ABG O2 Content ABG Base Excess Yousuf Test VBG pH POC VBG pCO2 POC VBG pO2 VBG HCO3 VBG O2 Sat ([place]) VBG Base Excess Patient On Oxygen O2 Delivery Device Oxygen Flow Rate Vent Mode Vent Rate Mechanical Rate PEEP Pressure Support Vent Sodium 144 Potassium 3.5 Chloride 113 H Carbon Dioxide 27 Anion Gap 5 L BUN 10.2 Creatinine 0.5 L Est GFR (CKD-EPI)AfAm 159.33 Est GFR (CKD-EPI)NonAf 137.47 POC Glucometer Random Glucose 141 H Lactic Acid Calcium 8.7 Phosphorus Magnesium 2.0 Ferritin Total Bilirubin 0.4 Direct Bilirubin AST 134 H ALT 144 H Alkaline Phosphatase 118 H LD Total Creatine Kinase Creatine Kinase Index CK-MB (CK-2) Troponin I C-Reactive Protein B-Natriuretic Peptide Total Protein 5.8 L Albumin 2.3 L Triglycerides Lipase Interleukin 2 Interleukin 6 TSH Free T4 Urine Color Urine Appearance Urine pH Ur Specific [place] Urine Protein Urine Glucose (UA) Urine Ketones Urine Blood Urine Nitrite Urine Bilirubin Urine Urobilinogen Ur Leukocyte Esterase Urine WBC (Auto) Urine RBC (Auto) Urine Casts (Auto) U Pathogenic Cast Auto U Epithel Cells (Auto) Urine Crystals (Auto) Urine Bacteria (Auto) Urine Yeast (Auto) Stool Occult Blood Stool O & P Wet [place] Vancomycin Vancomycin Pre-Dose COVID-19 ([facility]) CMV DNA Qual PCR Hep A IgM Ab Confirm Hepatitis A Ab Total Hep Bs Antigen Hep Bs Antibody Hep B Core Total Ab Hep B Core IgM Ab Hepatitis Be Antibody Hepatitis Be Antigen Hep C Ab Diagnostic Strongyloides IgG Ab TB Test (QFT) Nil TB Test (QFT) Mitogen TB Test (QFT) Ag 1 TB Test (QFT) Ag 2 TB Test (QFT) TB Positive Criteria O & P Permanent Slide Blood Type Antibody Screen 08/13/19 08/14/19 08/14/19 07:50 07:20 07:20 WBC 13.5 H RBC 3.23 L Hgb 9.1 L Hct 29.0 L MCV 89.8 MCH 28.1 MCHC 31.3 L RDW 17.6 H Plt Count 399 MPV 8.6 D Absolute Neuts (auto) 9.5 H Neutrophils % 70.5 Neutrophils % (Manual) Band Neutrophils % Lymphocytes % 16.8 D Lymphocytes % (Manual) Monocytes % 6.8 Monocytes % (Manual) Eosinophils % 5.2 H D Eosinophils % (Manual) Basophils % 0.7 Basophils % (Manual) Myelocytes % (Man) Promyelocytes % (Man) Blast Cells % (Manual) Nucleated RBC % 0 Metamyelocytes Hypochromia Platelet Estimate Polychromasia Poikilocytosis Basophilic Stippling Anisocytosis Microcytosis Macrocytosis Spherocytes Target Cells Tear Drop Cells Stomatocytes ESR PT with INR INR PTT (Actin FS) D-Dimer Anticoagulation Therapy Puncture Site Patient Temperature ABG pH ABG pCO2 at Pt Temp ABG pO2 at Pt Temp ABG HCO3 ABG O2 Sat (Measured) ABG O2 Content ABG Base Excess Yousuf Test VBG pH POC VBG pCO2 POC VBG pO2 VBG HCO3 VBG O2 Sat ([place]) VBG Base Excess Patient On Oxygen O2 Delivery Device Oxygen Flow Rate Vent Mode Vent Rate Mechanical Rate PEEP Pressure Support Vent Sodium 144 142 Potassium 4.0 4.0 Chloride 114 H 111 H Carbon Dioxide 26 23 Anion Gap 4 L 7 L BUN 12.8 16.7 Creatinine 0.6 0.6 Est GFR (CKD-EPI)AfAm 147.82 147.82 Est GFR (CKD-EPI)NonAf 127.55 127.55 POC Glucometer Random Glucose 101 131 H Lactic Acid Calcium 8.9 8.9 Phosphorus Magnesium 2.4 Ferritin Total Bilirubin 0.4 Direct Bilirubin AST 119 H ALT 188 H Alkaline Phosphatase 125 H LD Total Creatine Kinase Creatine Kinase Index CK-MB (CK-2) Troponin I C-Reactive Protein B-Natriuretic Peptide Total Protein 6.4 Albumin 2.5 L Triglycerides Lipase Interleukin 2 Interleukin 6 TSH Free T4 Urine Color Urine Appearance Urine pH Ur Specific [place] Urine Protein Urine Glucose (UA) Urine Ketones Urine Blood Urine Nitrite Urine Bilirubin Urine Urobilinogen Ur Leukocyte Esterase Urine WBC (Auto) Urine RBC (Auto) Urine Casts (Auto) U Pathogenic Cast Auto U Epithel Cells (Auto) Urine Crystals (Auto) Urine Bacteria (Auto) Urine Yeast (Auto) Stool Occult Blood Stool O & P Wet [place] Vancomycin Vancomycin Pre-Dose COVID-19 ([facility]) CMV DNA Qual PCR Hep A IgM Ab Confirm Hepatitis A Ab Total Hep Bs Antigen Hep Bs Antibody Hep B Core Total Ab Hep B Core IgM Ab Hepatitis Be Antibody Hepatitis Be Antigen Hep C Ab Diagnostic Strongyloides IgG Ab TB Test (QFT) Nil TB Test (QFT) Mitogen TB Test (QFT) Ag 1 TB Test (QFT) Ag 2 TB Test (QFT) TB Positive Criteria O & P Permanent Slide Blood Type Antibody Screen 08/15/19 08/16/19 08/16/19 06:30 08:05 08:05 WBC 15.1 H RBC 3.38 L Hgb 9.6 L Hct 30.0 L MCV 88.7 MCH 28.5 MCHC 32.1 RDW 17.6 H Plt Count 379 MPV 9.5 D Absolute Neuts (auto) 10.1 H Neutrophils % 67.0 Neutrophils % (Manual) Band Neutrophils % Lymphocytes % 18.2 Lymphocytes % (Manual) Monocytes % 9.0 Monocytes % (Manual) Eosinophils % 4.9 H Eosinophils % (Manual) Basophils % 0.9 Basophils % (Manual) Myelocytes % (Man) Promyelocytes % (Man) Blast Cells % (Manual) Nucleated RBC % 0 Metamyelocytes Hypochromia Platelet Estimate Polychromasia Poikilocytosis Basophilic Stippling Anisocytosis Microcytosis Macrocytosis Spherocytes Target Cells Tear Drop Cells Stomatocytes ESR PT with INR INR PTT (Actin FS) D-Dimer Anticoagulation Therapy Puncture Site Patient Temperature ABG pH ABG pCO2 at Pt Temp ABG pO2 at Pt Temp ABG HCO3 ABG O2 Sat (Measured) ABG O2 Content ABG Base Excess Yousuf Test VBG pH POC VBG pCO2 POC VBG pO2 VBG HCO3 VBG O2 Sat ([place]) VBG Base Excess Patient On Oxygen O2 Delivery Device Oxygen Flow Rate Vent Mode Vent Rate Mechanical Rate PEEP Pressure Support Vent Sodium Potassium Chloride Carbon Dioxide Anion Gap BUN Creatinine Est GFR (CKD-EPI)AfAm Est GFR (CKD-EPI)NonAf POC Glucometer Random Glucose Lactic Acid Calcium Phosphorus Magnesium Ferritin Total Bilirubin Direct Bilirubin AST ALT Alkaline Phosphatase LD Total Creatine Kinase Creatine Kinase Index CK-MB (CK-2) Troponin I C-Reactive Protein B-Natriuretic Peptide Total Protein Albumin Triglycerides Lipase Interleukin 2 Interleukin 6 TSH Free T4 Urine Color Urine Appearance Urine pH Ur Specific [place] Urine Protein Urine Glucose (UA) Urine Ketones Urine Blood Urine Nitrite Urine Bilirubin Urine Urobilinogen Ur Leukocyte Esterase Urine WBC (Auto) Urine RBC (Auto) Urine Casts (Auto) U Pathogenic Cast Auto U Epithel Cells (Auto) Urine Crystals (Auto) Urine Bacteria (Auto) Urine Yeast (Auto) Stool Occult Blood Stool O & P Wet [place] Vancomycin 17.9 Vancomycin Pre-Dose 33.8 H* COVID-19 ([facility]ERO[facility]) CMV DNA Qual PCR Hep A IgM Ab Confirm Hepatitis A Ab Total Hep Bs Antigen Hep Bs Antibody Hep B Core Total Ab Hep B Core IgM Ab Hepatitis Be Antibody Hepatitis Be Antigen Hep C Ab Diagnostic Strongyloides IgG Ab TB Test (QFT) Nil TB Test (QFT) Mitogen TB Test (QFT) Ag 1 TB Test (QFT) Ag 2 TB Test (QFT) TB Positive Criteria O & P Permanent Slide Blood Type Antibody Screen 08/16/19 08/17/19 08/17/19 08:05 02:00 02:00 WBC 14.3 H RBC 3.46 L Hgb 9.9 L Hct 30.9 L MCV 89.4 MCH 28.7 MCHC 32.1 RDW 17.5 H Plt Count 426 MPV 10.5 D Absolute Neuts (auto) Neutrophils % Neutrophils % (Manual) Band Neutrophils % Lymphocytes % Lymphocytes % (Manual) Monocytes % Monocytes % (Manual) Eosinophils % Eosinophils % (Manual) Basophils % Basophils % (Manual) Myelocytes % (Man) Promyelocytes % (Man) Blast Cells % (Manual) Nucleated RBC % Metamyelocytes Hypochromia Platelet Estimate Polychromasia Poikilocytosis Basophilic Stippling Anisocytosis Microcytosis Macrocytosis Spherocytes Target Cells Tear Drop Cells Stomatocytes ESR PT with INR INR PTT (Actin FS) D-Dimer Anticoagulation Therapy Puncture Site Patient Temperature ABG pH ABG pCO2 at Pt Temp ABG pO2 at Pt Temp ABG HCO3 ABG O2 Sat (Measured) ABG O2 Content ABG Base Excess Yousuf Test VBG pH POC VBG pCO2 POC VBG pO2 VBG HCO3 VBG O2 Sat ([place]) VBG Base Excess Patient On Oxygen O2 Delivery Device Oxygen Flow Rate Vent Mode Vent Rate Mechanical Rate PEEP Pressure Support Vent Sodium 141 Potassium 3.9 Chloride 111 H Carbon Dioxide 22 Anion Gap 8 BUN 20.7 H Creatinine 0.5 L Est GFR (CKD-EPI)AfAm 159.33 Est GFR (CKD-EPI)NonAf 137.47 POC Glucometer Random Glucose 111 H Lactic Acid Calcium 8.9 Phosphorus Cancelled Magnesium Cancelled Ferritin Total Bilirubin 0.4 Direct Bilirubin AST 42 H ALT 118 H Alkaline Phosphatase 156 H LD Total Creatine Kinase Creatine Kinase Index CK-MB (CK-2) Troponin I C-Reactive Protein B-Natriuretic Peptide Total Protein 6.8 Albumin 2.8 L Triglycerides Lipase Interleukin 2 Interleukin 6 TSH Free T4 Urine Color Urine Appearance Urine pH Ur Specific [place] Urine Protein Urine Glucose (UA) Urine Ketones Urine Blood Urine Nitrite Urine Bilirubin Urine Urobilinogen Ur Leukocyte Esterase Urine WBC (Auto) Urine RBC (Auto) Urine Casts (Auto) U Pathogenic Cast Auto U Epithel Cells (Auto) Urine Crystals (Auto) Urine Bacteria (Auto) Urine Yeast (Auto) Stool Occult Blood Stool O & P Wet [place] Vancomycin Vancomycin Pre-Dose COVID-19 (LEROY) CMV DNA Qual PCR Hep A IgM Ab Confirm Hepatitis A Ab Total Hep Bs Antigen Hep Bs Antibody Hep B Core Total Ab Hep B Core IgM Ab Hepatitis Be Antibody Hepatitis Be Antigen Hep C Ab Diagnostic Strongyloides IgG Ab TB Test (QFT) Nil TB Test (QFT) Mitogen TB Test (QFT) Ag 1 TB Test (QFT) Ag 2 TB Test (QFT) TB Positive Criteria O & P Permanent Slide Blood Type Antibody Screen 08/17/19 08/17/19 08/17/19 02:00 02:00 07:50 WBC RBC Hgb Hct MCV MCH MCHC RDW Plt Count MPV Absolute Neuts (auto) Neutrophils % Neutrophils % (Manual) Band Neutrophils % Lymphocytes % Lymphocytes % (Manual) Monocytes % Monocytes % (Manual) Eosinophils % Eosinophils % (Manual) Basophils % Basophils % (Manual) Myelocytes % (Man) Promyelocytes % (Man) Blast Cells % (Manual) Nucleated RBC % Metamyelocytes Hypochromia Platelet Estimate Polychromasia Poikilocytosis Basophilic Stippling Anisocytosis Microcytosis Macrocytosis Spherocytes Target Cells Tear Drop Cells Stomatocytes ESR PT with INR INR PTT (Actin FS) D-Dimer Anticoagulation Therapy Puncture Site Patient Temperature ABG pH ABG pCO2 at Pt Temp ABG pO2 at Pt Temp ABG HCO3 ABG O2 Sat (Measured) ABG O2 Content ABG Base Excess Yousuf Test VBG pH POC VBG pCO2 POC VBG pO2 VBG HCO3 VBG O2 Sat ([place]) VBG Base Excess Patient On Oxygen O2 Delivery Device Oxygen Flow Rate Vent Mode Vent Rate Mechanical Rate PEEP Pressure Support Vent Sodium 142 142 Potassium 4.3 3.8 Chloride 112 H 111 H Carbon Dioxide 21 22 Anion Gap 9 10 BUN 21.4 H 19.7 H Creatinine 0.6 0.5 L Est GFR (CKD-EPI)AfAm 147.82 159.33 Est GFR (CKD-EPI)NonAf 127.55 137.47 POC Glucometer Random Glucose 127 H 123 H Lactic Acid 1.0 Calcium 8.6 9.1 Phosphorus 4.5 Magnesium 2.5 H Ferritin Total Bilirubin Direct Bilirubin AST ALT Alkaline Phosphatase LD Total Creatine Kinase Creatine Kinase Index CK-MB (CK-2) Troponin I C-Reactive Protein 6.1 H B-Natriuretic Peptide Total Protein Albumin Triglycerides Lipase Interleukin 2 Interleukin 6 TSH Free T4 Urine Color Urine Appearance Urine pH Ur Specific [place] Urine Protein Urine Glucose (UA) Urine Ketones Urine Blood Urine Nitrite Urine Bilirubin Urine Urobilinogen Ur Leukocyte Esterase Urine WBC (Auto) Urine RBC (Auto) Urine Casts (Auto) U Pathogenic Cast Auto U Epithel Cells (Auto) Urine Crystals (Auto) Urine Bacteria (Auto) Urine Yeast (Auto) Stool Occult Blood Stool O & P Wet [place] Vancomycin Vancomycin Pre-Dose COVID-19 (LEROY) CMV DNA Qual PCR Hep A IgM Ab Confirm Hepatitis A Ab Total Hep Bs Antigen Hep Bs Antibody Hep B Core Total Ab Hep B Core IgM Ab Hepatitis Be Antibody Hepatitis Be Antigen Hep C Ab Diagnostic Strongyloides IgG Ab TB Test (QFT) Nil TB Test (QFT) Mitogen TB Test (QFT) Ag 1 TB Test (QFT) Ag 2 TB Test (QFT) TB Positive Criteria O & P Permanent Slide Blood Type Antibody Screen 08/17/19 08/17/19 08/18/19 07:50 14:55 06:40 WBC 14.1 H 13.1 H RBC 3.44 L 3.43 L Hgb 9.8 L 9.7 L Hct 31.2 L 30.5 L MCV 90.6 89.1 MCH 28.5 28.3 MCHC 31.5 L 31.7 L RDW 17.3 H 17.5 H Plt Count 411 412 MPV 10.9 10.4 Absolute Neuts (auto) 9.5 H Neutrophils % 67.4 Neutrophils % (Manual) Band Neutrophils % Lymphocytes % 18.9 Lymphocytes % (Manual) Monocytes % 7.7 Monocytes % (Manual) Eosinophils % 5.2 H Eosinophils % (Manual) Basophils % 0.8 Basophils % (Manual) Myelocytes % (Man) Promyelocytes % (Man) Blast Cells % (Manual) Nucleated RBC % 0 Metamyelocytes Hypochromia Platelet Estimate Polychromasia Poikilocytosis Basophilic Stippling Anisocytosis Microcytosis Macrocytosis Spherocytes Target Cells Tear Drop Cells Stomatocytes ESR PT with INR INR PTT (Actin FS) D-Dimer Anticoagulation Therapy Puncture Site Patient Temperature ABG pH ABG pCO2 at Pt Temp ABG pO2 at Pt Temp ABG HCO3 ABG O2 Sat (Measured) ABG O2 Content ABG Base Excess Yousuf Test VBG pH POC VBG pCO2 POC VBG pO2 VBG HCO3 VBG O2 Sat ([place]) VBG Base Excess Patient On Oxygen O2 Delivery Device Oxygen Flow Rate Vent Mode Vent Rate Mechanical Rate PEEP Pressure Support Vent Sodium Potassium Chloride Carbon Dioxide Anion Gap BUN Creatinine Est GFR (CKD-EPI)AfAm Est GFR (CKD-EPI)NonAf POC Glucometer Random Glucose Lactic Acid Calcium Phosphorus Magnesium Ferritin Total Bilirubin 0.3 Direct Bilirubin 0.2 AST 40 H ALT 108 H Alkaline Phosphatase 158 H LD Total Creatine Kinase Creatine Kinase Index CK-MB (CK-2) Troponin I C-Reactive Protein B-Natriuretic Peptide Total Protein 7.0 Albumin 3.0 L Triglycerides Lipase Interleukin 2 Interleukin 6 TSH Free T4 Urine Color Urine Appearance Urine pH Ur Specific [place] Urine Protein Urine Glucose (UA) Urine Ketones Urine Blood Urine Nitrite Urine Bilirubin Urine Urobilinogen Ur Leukocyte Esterase Urine WBC (Auto) Urine RBC (Auto) Urine Casts (Auto) U Pathogenic Cast Auto U Epithel Cells (Auto) Urine Crystals (Auto) Urine Bacteria (Auto) Urine Yeast (Auto) Stool Occult Blood Stool O & P Wet [place] Vancomycin Vancomycin Pre-Dose COVID-19 ([place]EROY) CMV DNA Qual PCR Hep A IgM Ab Confirm Hepatitis A Ab Total Hep Bs Antigen Hep Bs Antibody Hep B Core Total Ab Hep B Core IgM Ab Hepatitis Be Antibody Hepatitis Be Antigen Hep C Ab Diagnostic Strongyloides IgG Ab TB Test (QFT) Nil TB Test (QFT) Mitogen TB Test (QFT) Ag 1 TB Test (QFT) Ag 2 TB Test (QFT) TB Positive Criteria O & P Permanent Slide Blood Type Antibody Screen 08/18/19 08/18/19 08/19/19 06:40 11:20 07:10 WBC 14.2 H RBC 3.59 L Hgb 9.9 L Hct 31.7 L MCV 88.5 MCH 27.7 MCHC 31.3 L RDW 17.1 H Plt Count 425 MPV 10.5 Absolute Neuts (auto) 9.5 H Neutrophils % 67.0 Neutrophils % (Manual) Band Neutrophils % Lymphocytes % 18.1 Lymphocytes % (Manual) Monocytes % 8.0 Monocytes % (Manual) Eosinophils % 6.3 H Eosinophils % (Manual) Basophils % 0.6 Basophils % (Manual) Myelocytes % (Man) Promyelocytes % (Man) Blast Cells % (Manual) Nucleated RBC % 0 Metamyelocytes Hypochromia Platelet Estimate Polychromasia Poikilocytosis Basophilic Stippling Anisocytosis Microcytosis Macrocytosis Spherocytes Target Cells Tear Drop Cells Stomatocytes ESR PT with INR INR PTT (Actin FS) D-Dimer Anticoagulation Therapy Puncture Site Patient Temperature ABG pH ABG pCO2 at Pt Temp ABG pO2 at Pt Temp ABG HCO3 ABG O2 Sat (Measured) ABG O2 Content ABG Base Excess Yousuf Test VBG pH POC VBG pCO2 POC VBG pO2 VBG HCO3 VBG O2 Sat ([place]) VBG Base Excess Patient On Oxygen O2 Delivery Device Oxygen Flow Rate Vent Mode Vent Rate Mechanical Rate PEEP Pressure Support Vent Sodium 144 Potassium 3.9 Chloride 112 H Carbon Dioxide 21 Anion Gap 11 BUN 21.9 H Creatinine 0.6 Est GFR (CKD-EPI)AfAm 147.82 Est GFR (CKD-EPI)NonAf 127.55 POC Glucometer Random Glucose 132 H Lactic Acid Calcium 9.0 Phosphorus 4.7 Magnesium 2.5 H Ferritin Total Bilirubin 0.3 Direct Bilirubin AST 43 H ALT 93 H Alkaline Phosphatase 147 H LD Total Creatine Kinase Creatine Kinase Index CK-MB (CK-2) Troponin I C-Reactive Protein B-Natriuretic Peptide Total Protein 6.6 Albumin 2.8 L Triglycerides Lipase Interleukin 2 Interleukin 6 TSH Free T4 Urine Color Urine Appearance Urine pH Ur Specific [place] Urine Protein Urine Glucose (UA) Urine Ketones Urine Blood Urine Nitrite Urine Bilirubin Urine Urobilinogen Ur Leukocyte Esterase Urine WBC (Auto) Urine RBC (Auto) Urine Casts (Auto) U Pathogenic Cast Auto U Epithel Cells (Auto) Urine Crystals (Auto) Urine Bacteria (Auto) Urine Yeast (Auto) Stool Occult Blood Negative Stool O & P Wet [place] Vancomycin Vancomycin Pre-Dose COVID-19 ([place]EROY) CMV DNA Qual PCR Hep A IgM Ab Confirm Hepatitis A Ab Total Hep Bs Antigen Hep Bs Antibody Hep B Core Total Ab Hep B Core IgM Ab Hepatitis Be Antibody Hepatitis Be Antigen Hep C Ab Diagnostic Strongyloides IgG Ab TB Test (QFT) Nil TB Test (QFT) Mitogen TB Test (QFT) Ag 1 TB Test (QFT) Ag 2 TB Test (QFT) TB Positive Criteria O & P Permanent Slide Blood Type Antibody Screen 08/19/19 08/19/19 08/19/19 07:10 07:10 22:00 WBC RBC Hgb Hct MCV MCH MCHC RDW Plt Count MPV Absolute Neuts (auto) Neutrophils % Neutrophils % (Manual) Band Neutrophils % Lymphocytes % Lymphocytes % (Manual) Monocytes % Monocytes % (Manual) Eosinophils % Eosinophils % (Manual) Basophils % Basophils % (Manual) Myelocytes % (Man) Promyelocytes % (Man) Blast Cells % (Manual) Nucleated RBC % Metamyelocytes Hypochromia Platelet Estimate Polychromasia Poikilocytosis Basophilic Stippling Anisocytosis Microcytosis Macrocytosis Spherocytes Target Cells Tear Drop Cells Stomatocytes ESR PT with INR INR PTT (Actin FS) D-Dimer Anticoagulation Therapy Puncture Site Patient Temperature ABG pH ABG pCO2 at Pt Temp ABG pO2 at Pt Temp ABG HCO3 ABG O2 Sat (Measured) ABG O2 Content ABG Base Excess Yousuf Test VBG pH POC VBG pCO2 POC VBG pO2 VBG HCO3 VBG O2 Sat ([place]) VBG Base Excess Patient On Oxygen O2 Delivery Device Oxygen Flow Rate Vent Mode Vent Rate Mechanical Rate PEEP Pressure Support Vent Sodium 144 Potassium 4.0 Chloride 113 H Carbon Dioxide 22 Anion Gap 9 BUN 23.2 H Creatinine 0.5 L Est GFR (CKD-EPI)AfAm 159.33 Est GFR (CKD-EPI)NonAf 137.47 POC Glucometer Random Glucose 113 H Lactic Acid Calcium 9.3 Phosphorus Magnesium Ferritin Total Bilirubin 0.3 Direct Bilirubin AST 51 H ALT 104 H Alkaline Phosphatase 157 H LD Total Creatine Kinase Creatine Kinase Index CK-MB (CK-2) Troponin I C-Reactive Protein B-Natriuretic Peptide Total Protein 6.9 Albumin 2.8 L Triglycerides Lipase Interleukin 2 Interleukin 6 TSH 1.95 Free T4 0.98 Urine Color Urine Appearance Urine pH Ur Specific [place] Urine Protein Urine Glucose (UA) Urine Ketones Urine Blood Urine Nitrite Urine Bilirubin Urine Urobilinogen Ur Leukocyte Esterase Urine WBC (Auto) Urine RBC (Auto) Urine Casts (Auto) U Pathogenic Cast Auto U Epithel Cells (Auto) Urine Crystals (Auto) Urine Bacteria (Auto) Urine Yeast (Auto) Stool Occult Blood Stool O & P Wet [place] Vancomycin Vancomycin Pre-Dose COVID-19 ([place]Y) H CMV DNA Qual PCR Hep A IgM Ab Confirm Hepatitis A Ab Total Hep Bs Antigen Hep Bs Antibody Hep B Core Total Ab Hep B Core IgM Ab Hepatitis Be Antibody Hepatitis Be Antigen Hep C Ab Diagnostic Strongyloides IgG Ab Negative TB Test (QFT) Nil TB Test (QFT) Mitogen TB Test (QFT) Ag 1 TB Test (QFT) Ag 2 TB Test (QFT) TB Positive Criteria O & P Permanent Slide Blood Type Antibody Screen 0608/20/19 08/21/19 07:09 07:09 07:20 WBC 16.3 H RBC 3.82 L Hgb 10.7 L Hct 34.4 L MCV 90.1 MCH 28.0 MCHC 31.1 L RDW 17.5 H Plt Count 476 H MPV 11.1 Absolute Neuts (auto) 11.6 H Neutrophils % 71.1 Neutrophils % (Manual) Band Neutrophils % Lymphocytes % 17.7 Lymphocytes % (Manual) Monocytes % 7.3 Monocytes % (Manual) Eosinophils % 3.2 Eosinophils % (Manual) Basophils % 0.7 Basophils % (Manual) Myelocytes % (Man) Promyelocytes % (Man) Blast Cells % (Manual) Nucleated RBC % 0 Metamyelocytes Hypochromia Platelet Estimate Polychromasia Poikilocytosis Basophilic Stippling Anisocytosis Microcytosis Macrocytosis Spherocytes Target Cells Tear Drop Cells Stomatocytes ESR PT with INR INR PTT (Actin FS) D-Dimer Anticoagulation Therapy Puncture Site Patient Temperature ABG pH ABG pCO2 at Pt Temp ABG pO2 at Pt Temp ABG HCO3 ABG O2 Sat (Measured) ABG O2 Content ABG Base Excess Yousuf Test VBG pH POC VBG pCO2 POC VBG pO2 VBG HCO3 VBG O2 Sat ([place]) VBG Base Excess Patient On Oxygen O2 Delivery Device Oxygen Flow Rate Vent Mode Vent Rate Mechanical Rate PEEP Pressure Support Vent Sodium 146 H 144 Potassium 4.2 3.8 Chloride 112 H 112 H Carbon Dioxide 26 24 Anion Gap 8 8 BUN 23.0 H 23.4 H Creatinine 0.5 L 0.6 Est GFR (CKD-EPI)AfAm 159.33 147.82 Est GFR (CKD-EPI)NonAf 137.47 127.55 POC Glucometer Random Glucose 103 99 Lactic Acid Calcium 10.1 9.6 Phosphorus Magnesium Ferritin Total Bilirubin 0.4 0.4 Direct Bilirubin AST 46 H 49 H ALT 99 H 90 H Alkaline Phosphatase 159 H 148 H LD Total Creatine Kinase Creatine Kinase Index CK-MB (CK-2) Troponin I C-Reactive Protein B-Natriuretic Peptide Total Protein 7.1 7.0 Albumin 3.0 L 3.0 L Triglycerides Lipase Interleukin 2 Interleukin 6 TSH Free T4 Urine Color Urine Appearance Urine pH Ur Specific [place] Urine Protein Urine Glucose (UA) Urine Ketones Urine Blood Urine Nitrite Urine Bilirubin Urine Urobilinogen Ur Leukocyte Esterase Urine WBC (Auto) Urine RBC (Auto) Urine Casts (Auto) U Pathogenic Cast Auto U Epithel Cells (Auto) Urine Crystals (Auto) Urine Bacteria (Auto) Urine Yeast (Auto) Stool Occult Blood Stool O & P Wet [place] Vancomycin Vancomycin Pre-Dose COVID-19 ([place]) CMV DNA Qual PCR Hep A IgM Ab Confirm Hepatitis A Ab Total Hep Bs Antigen Hep Bs Antibody Hep B Core Total Ab Hep B Core IgM Ab Hepatitis Be Antibody Hepatitis Be Antigen Hep C Ab Diagnostic Strongyloides IgG Ab TB Test (QFT) Nil TB Test (QFT) Mitogen TB Test (QFT) Ag 1 TB Test (QFT) Ag 2 TB Test (QFT) TB Positive Criteria O & P Permanent Slide Blood Type Antibody Screen 08/21/19 08/21/19 08/22/19 11:30 23:55 04:12 WBC 16.1 H RBC 3.70 L Hgb 10.3 L Hct 32.7 L MCV 88.5 MCH 27.8 MCHC 31.4 L RDW 17.5 H Plt Count 490 H MPV 10.5 Absolute Neuts (auto) 11.5 H Neutrophils % 71.5 Neutrophils % (Manual) Band Neutrophils % Lymphocytes % 17.5 Lymphocytes % (Manual) Monocytes % 7.1 Monocytes % (Manual) Eosinophils % 3.2 Eosinophils % (Manual) Basophils % 0.7 Basophils % (Manual) Myelocytes % (Man) Promyelocytes % (Man) Blast Cells % (Manual) Nucleated RBC % 0 Metamyelocytes Hypochromia Platelet Estimate Polychromasia Poikilocytosis Basophilic Stippling Anisocytosis Microcytosis Macrocytosis Spherocytes Target Cells Tear Drop Cells Stomatocytes ESR PT with INR 14.20 H INR 1.20 H PTT (Actin FS) D-Dimer Anticoagulation Therapy Puncture Site Patient Temperature ABG pH ABG pCO2 at Pt Temp ABG pO2 at Pt Temp ABG HCO3 ABG O2 Sat (Measured) ABG O2 Content ABG Base Excess Yousuf Test VBG pH POC VBG pCO2 POC VBG pO2 VBG HCO3 VBG O2 Sat ([place]) VBG Base Excess Patient On Oxygen O2 Delivery Device Oxygen Flow Rate Vent Mode Vent Rate Mechanical Rate PEEP Pressure Support Vent Sodium Potassium Chloride Carbon Dioxide Anion Gap BUN Creatinine Est GFR (CKD-EPI)AfAm Est GFR (CKD-EPI)NonAf POC Glucometer Random Glucose Lactic Acid Calcium Phosphorus Magnesium Ferritin Total Bilirubin Direct Bilirubin AST ALT Alkaline Phosphatase LD Total Creatine Kinase Creatine Kinase Index CK-MB (CK-2) Troponin I C-Reactive Protein B-Natriuretic Peptide Total Protein Albumin Triglycerides Lipase Interleukin 2 Interleukin 6 TSH Free T4 Urine Color Urine Appearance Urine pH Ur Specific [place] Urine Protein Urine Glucose (UA) Urine Ketones Urine Blood Urine Nitrite Urine Bilirubin Urine Urobilinogen Ur Leukocyte Esterase Urine WBC (Auto) Urine RBC (Auto) Urine Casts (Auto) U Pathogenic Cast Auto U Epithel Cells (Auto) Urine Crystals (Auto) Urine Bacteria (Auto) Urine Yeast (Auto) Stool Occult Blood Stool O & P Wet [place] Vancomycin Vancomycin Pre-Dose COVID-19 ([place]ERO[facility]) Not detected CMV DNA Qual PCR Hep A IgM Ab Confirm Hepatitis A Ab Total Hep Bs Antigen Hep Bs Antibody Hep B Core Total Ab Hep B Core IgM Ab Hepatitis Be Antibody Hepatitis Be Antigen Hep C Ab Diagnostic Strongyloides IgG Ab TB Test (QFT) Nil TB Test (QFT) Mitogen TB Test (QFT) Ag 1 TB Test (QFT) Ag 2 TB Test (QFT) TB Positive Criteria O & P Permanent Slide Blood Type Antibody Screen 08/22/19 08/22/19 08/23/19 07:51 07:51 07:31 WBC 16.3 H 16.5 H RBC 3.80 L 3.77 L Hgb 10.6 L 10.5 L Hct 34.1 L 33.8 L MCV 89.5 89.7 MCH 27.8 27.8 MCHC 31.1 L 31.0 L RDW 17.3 H 17.3 H Plt Count 477 H 489 H MPV 11.1 11.2 H Absolute Neuts (auto) 11.8 H 11.9 H Neutrophils % 72.3 72.0 Neutrophils % (Manual) Band Neutrophils % Lymphocytes % 16.8 16.6 Lymphocytes % (Manual) Monocytes % 6.6 6.0 Monocytes % (Manual) Eosinophils % 3.5 4.9 H Eosinophils % (Manual) Basophils % 0.8 0.5 Basophils % (Manual) Myelocytes % (Man) Promyelocytes % (Man) Blast Cells % (Manual) Nucleated RBC % 0 0 Metamyelocytes Hypochromia Platelet Estimate Polychromasia Poikilocytosis Basophilic Stippling Anisocytosis Microcytosis Macrocytosis Spherocytes Target Cells Tear Drop Cells Stomatocytes ESR PT with INR INR PTT (Actin FS) D-Dimer Anticoagulation Therapy Puncture Site Patient Temperature ABG pH ABG pCO2 at Pt Temp ABG pO2 at Pt Temp ABG HCO3 ABG O2 Sat (Measured) ABG O2 Content ABG Base Excess Yousuf Test VBG pH POC VBG pCO2 POC VBG pO2 VBG HCO3 VBG O2 Sat ([place]) VBG Base Excess Patient On Oxygen O2 Delivery Device Oxygen Flow Rate Vent Mode Vent Rate Mechanical Rate PEEP Pressure Support Vent Sodium 147 H Potassium 3.9 Chloride 114 H Carbon Dioxide 22 Anion Gap 10 BUN 21.5 H Creatinine 0.6 Est GFR (CKD-EPI)AfAm 147.82 Est GFR (CKD-EPI)NonAf 127.55 POC Glucometer Random Glucose 102 Lactic Acid Calcium 10.2 H Phosphorus Magnesium Ferritin Total Bilirubin 0.4 Direct Bilirubin AST 43 H ALT 92 H Alkaline Phosphatase 158 H LD Total Creatine Kinase Creatine Kinase Index CK-MB (CK-2) Troponin I C-Reactive Protein 10.7 H B-Natriuretic Peptide Total Protein 7.2 Albumin 3.1 L Triglycerides Lipase Interleukin 2 Interleukin 6 TSH Free T4 Urine Color Urine Appearance Urine pH Ur Specific [place] Urine Protein Urine Glucose (UA) Urine Ketones Urine Blood Urine Nitrite Urine Bilirubin Urine Urobilinogen Ur Leukocyte Esterase Urine WBC (Auto) Urine RBC (Auto) Urine Casts (Auto) U Pathogenic Cast Auto U Epithel Cells (Auto) Urine Crystals (Auto) Urine Bacteria (Auto) Urine Yeast (Auto) Stool Occult Blood Stool O & P Wet [place] Vancomycin Vancomycin Pre-Dose COVID-19 ([facility]ERO[facility]) CMV DNA Qual PCR Hep A IgM Ab Confirm Hepatitis A Ab Total Hep Bs Antigen Hep Bs Antibody Hep B Core Total Ab Hep B Core IgM Ab Hepatitis Be Antibody Hepatitis Be Antigen Hep C Ab Diagnostic Strongyloides IgG Ab TB Test (QFT) Nil TB Test (QFT) Mitogen TB Test (QFT) Ag 1 TB Test (QFT) Ag 2 TB Test (QFT) TB Positive Criteria O & P Permanent Slide Blood Type Antibody Screen 08/23/19 08/23/19 08/24/19 07:31 12:10 07:20 WBC 14.5 H RBC 3.72 L Hgb 10.3 L Hct 33.0 L MCV 88.9 MCH 27.8 MCHC 31.3 L RDW 17.2 H Plt Count 442 H MPV 11.0 Absolute Neuts (auto) 9.5 H Neutrophils % 65.5 Neutrophils % (Manual) Band Neutrophils % Lymphocytes % 23.2 D Lymphocytes % (Manual) Monocytes % 7.7 Monocytes % (Manual) Eosinophils % 2.9 Eosinophils % (Manual) Basophils % 0.7 Basophils % (Manual) Myelocytes % (Man) Promyelocytes % (Man) Blast Cells % (Manual) Nucleated RBC % 0 Metamyelocytes Hypochromia Platelet Estimate Polychromasia Poikilocytosis Basophilic Stippling Anisocytosis Microcytosis Macrocytosis Spherocytes Target Cells Tear Drop Cells Stomatocytes ESR PT with INR INR PTT (Actin FS) D-Dimer Anticoagulation Therapy Puncture Site Patient Temperature ABG pH ABG pCO2 at Pt Temp ABG pO2 at Pt Temp ABG HCO3 ABG O2 Sat (Measured) ABG O2 Content ABG Base Excess Yousuf Test VBG pH POC VBG pCO2 POC VBG pO2 VBG HCO3 VBG O2 Sat ([place]) VBG Base Excess Patient On Oxygen O2 Delivery Device Oxygen Flow Rate Vent Mode Vent Rate Mechanical Rate PEEP Pressure Support Vent Sodium 152 H Potassium 4.0 Chloride 121 H Carbon Dioxide 24 Anion Gap 8 BUN 20.5 H Creatinine 0.6 Est GFR (CKD-EPI)AfAm 147.82 Est GFR (CKD-EPI)NonAf 127.55 POC Glucometer Random Glucose 101 Lactic Acid 1.1 Calcium 10.0 Phosphorus Magnesium Ferritin Total Bilirubin 0.4 Direct Bilirubin AST 48 H ALT 103 H Alkaline Phosphatase 153 H LD Total Creatine Kinase 16 L Creatine Kinase Index CK-MB (CK-2) Troponin I C-Reactive Protein B-Natriuretic Peptide Total Protein 7.1 Albumin 3.2 L Triglycerides Lipase Interleukin 2 Interleukin 6 TSH Free T4 Urine Color Urine Appearance Urine pH Ur Specific [place] Urine Protein Urine Glucose (UA) Urine Ketones Urine Blood Urine Nitrite Urine Bilirubin Urine Urobilinogen Ur Leukocyte Esterase Urine WBC (Auto) Urine RBC (Auto) Urine Casts (Auto) U Pathogenic Cast Auto U Epithel Cells (Auto) Urine Crystals (Auto) Urine Bacteria (Auto) Urine Yeast (Auto) Stool Occult Blood Stool O & P Wet [place] Vancomycin Vancomycin Pre-Dose COVID-19 ([facility]EROY) CMV DNA Qual PCR Hep A IgM Ab Confirm Hepatitis A Ab Total Hep Bs Antigen Hep Bs Antibody Hep B Core Total Ab Hep B Core IgM Ab Hepatitis Be Antibody Hepatitis Be Antigen Hep C Ab Diagnostic Strongyloides IgG Ab TB Test (QFT) Nil TB Test (QFT) Mitogen TB Test (QFT) Ag 1 TB Test (QFT) Ag 2 TB Test (QFT) TB Positive Criteria O & P Permanent Slide Blood Type Antibody Screen 08/24/19 08/25/19 08/25/19 07:20 07:24 07:24 WBC 14.6 H RBC 3.55 L Hgb 9.9 L Hct 31.9 L MCV 90.0 MCH 27.8 MCHC 30.9 L RDW 17.4 H Plt Count 372 MPV 11.6 H Absolute Neuts (auto) 7.3 Neutrophils % 58.3 Neutrophils % (Manual) Band Neutrophils % Lymphocytes % 25.7 Lymphocytes % (Manual) Monocytes % 6.2 Monocytes % (Manual) Eosinophils % 8.6 H D Eosinophils % (Manual) Basophils % 1.2 Basophils % (Manual) Myelocytes % (Man) Promyelocytes % (Man) Blast Cells % (Manual) Nucleated RBC % 0 Metamyelocytes Hypochromia Platelet Estimate Normal Polychromasia Poikilocytosis Basophilic Stippling Anisocytosis Microcytosis Macrocytosis Spherocytes Target Cells Tear Drop Cells Stomatocytes ESR PT with INR INR PTT (Actin FS) D-Dimer Anticoagulation Therapy Puncture Site Patient Temperature ABG pH ABG pCO2 at Pt Temp ABG pO2 at Pt Temp ABG HCO3 ABG O2 Sat (Measured) ABG O2 Content ABG Base Excess Yousuf Test VBG pH POC VBG pCO2 POC VBG pO2 VBG HCO3 VBG O2 Sat ([place]) VBG Base Excess Patient On Oxygen O2 Delivery Device Oxygen Flow Rate Vent Mode Vent Rate Mechanical Rate PEEP Pressure Support Vent Sodium 153 H 148 H Potassium 3.8 4.2 Chloride 121 H 120 H Carbon Dioxide 19 L 19 L Anion Gap 12 10 BUN 21.3 H 12.9 Creatinine 0.7 0.5 L Est GFR (CKD-EPI)AfAm 138.75 159.33 Est GFR (CKD-EPI)NonAf 119.71 137.47 POC Glucometer Random Glucose 115 H 103 Lactic Acid Calcium 9.6 9.5 Phosphorus Magnesium Ferritin Total Bilirubin 0.7 0.4 Direct Bilirubin AST 85 H 66 H ALT 143 H 132 H Alkaline Phosphatase 163 H 141 H LD Total Creatine Kinase Creatine Kinase Index CK-MB (CK-2) Troponin I C-Reactive Protein B-Natriuretic Peptide Total Protein 7.1 6.7 Albumin 3.1 L 3.0 L Triglycerides Lipase Interleukin 2 Interleukin 6 TSH Free T4 Urine Color Urine Appearance Urine pH Ur Specific [place] Urine Protein Urine Glucose (UA) Urine Ketones Urine Blood Urine Nitrite Urine Bilirubin Urine Urobilinogen Ur Leukocyte Esterase Urine WBC (Auto) Urine RBC (Auto) Urine Casts (Auto) U Pathogenic Cast Auto U Epithel Cells (Auto) Urine Crystals (Auto) Urine Bacteria (Auto) Urine Yeast (Auto) Stool Occult Blood Stool O & P Wet [place] Vancomycin Vancomycin Pre-Dose COVID-19 (LEROY) CMV DNA Qual PCR Hep A IgM Ab Confirm Hepatitis A Ab Total Hep Bs Antigen Hep Bs Antibody Hep B Core Total Ab Hep B Core IgM Ab Hepatitis Be Antibody Hepatitis Be Antigen Hep C Ab Diagnostic Strongyloides IgG Ab TB Test (QFT) Nil TB Test (QFT) Mitogen TB Test (QFT) Ag 1 TB Test (QFT) Ag 2 TB Test (QFT) TB Positive Criteria O & P Permanent Slide Blood Type Antibody Screen 08/26/19 08/26/19 08/26/19 08:00 08:00 15:05 WBC 10.9 H RBC 3.53 L Hgb 9.8 L Hct 31.7 L MCV 89.8 MCH 27.8 MCHC 31.0 L RDW 17.3 H Plt Count 352 MPV 11.7 H Absolute Neuts (auto) 6.4 Neutrophils % 58.5 Neutrophils % (Manual) Band Neutrophils % Lymphocytes % 26.2 Lymphocytes % (Manual) Monocytes % 6.6 Monocytes % (Manual) Eosinophils % 7.9 H Eosinophils % (Manual) Basophils % 0.8 Basophils % (Manual) Myelocytes % (Man) Promyelocytes % (Man) Blast Cells % (Manual) Nucleated RBC % 0 Metamyelocytes Hypochromia Platelet Estimate Polychromasia Poikilocytosis Basophilic Stippling Anisocytosis Microcytosis Macrocytosis Spherocytes Target Cells Tear Drop Cells Stomatocytes ESR PT with INR INR PTT (Actin FS) D-Dimer Anticoagulation Therapy Puncture Site Patient Temperature ABG pH ABG pCO2 at Pt Temp ABG pO2 at Pt Temp ABG HCO3 ABG O2 Sat (Measured) ABG O2 Content ABG Base Excess Yousuf Test VBG pH POC VBG pCO2 POC VBG pO2 VBG HCO3 VBG O2 Sat ([place]) VBG Base Excess Patient On Oxygen O2 Delivery Device Oxygen Flow Rate Vent Mode Vent Rate Mechanical Rate PEEP Pressure Support Vent Sodium 146 H Potassium 3.7 Chloride 116 H Carbon Dioxide 20 L Anion Gap 10 BUN 13.6 Creatinine 0.6 Est GFR (CKD-EPI)AfAm 147.82 Est GFR (CKD-EPI)NonAf 127.55 POC Glucometer Random Glucose 105 Lactic Acid Calcium 9.0 Phosphorus Magnesium Ferritin Total Bilirubin 0.2 Direct Bilirubin AST 52 H ALT 116 H Alkaline Phosphatase 149 H LD Total Creatine Kinase Creatine Kinase Index CK-MB (CK-2) Troponin I C-Reactive Protein B-Natriuretic Peptide Total Protein 6.5 Albumin 2.7 L Triglycerides Lipase Interleukin 2 Interleukin 6 TSH Free T4 Urine Color Urine Appearance Urine pH Ur Specific [place] Urine Protein Urine Glucose (UA) Urine Ketones Urine Blood Urine Nitrite Urine Bilirubin Urine Urobilinogen Ur Leukocyte Esterase Urine WBC (Auto) Urine RBC (Auto) Urine Casts (Auto) U Pathogenic Cast Auto U Epithel Cells (Auto) Urine Crystals (Auto) Urine Bacteria (Auto) Urine Yeast (Auto) Stool Occult Blood Stool O & P Wet [place] Vancomycin Vancomycin Pre-Dose COVID-19 (LEROY) CMV DNA Qual PCR Hep A IgM Ab Confirm Hepatitis A Ab Total Hep Bs Antigen Hep Bs Antibody Hep B Core Total Ab Hep B Core IgM Ab Hepatitis Be Antibody Hepatitis Be Antigen Hep C Ab Diagnostic Strongyloides IgG Ab TB Test (QFT) Nil TB Test (QFT) Mitogen TB Test (QFT) Ag 1 TB Test (QFT) Ag 2 TB Test (QFT) TB Positive Criteria O & P Permanent Slide Final report Blood Type Antibody Screen 08/27/19 08/27/19 08/27/19 07:20 07:20 15:20 WBC 9.9 RBC 3.33 L Hgb 9.3 L Hct 29.4 L MCV 88.2 MCH 28.0 MCHC 31.8 L RDW 17.3 H Plt Count 299 MPV 10.9 Absolute Neuts (auto) 5.4 Neutrophils % 54.3 Neutrophils % (Manual) Band Neutrophils % Lymphocytes % 31.2 Lymphocytes % (Manual) Monocytes % 7.2 Monocytes % (Manual) Eosinophils % 6.6 H Eosinophils % (Manual) Basophils % 0.7 Basophils % (Manual) Myelocytes % (Man) Promyelocytes % (Man) Blast Cells % (Manual) Nucleated RBC % 0 Metamyelocytes Hypochromia Platelet Estimate Polychromasia Poikilocytosis Basophilic Stippling Anisocytosis Microcytosis Macrocytosis Spherocytes Target Cells Tear Drop Cells Stomatocytes ESR PT with INR INR PTT (Actin FS) D-Dimer Anticoagulation Therapy Puncture Site Patient Temperature ABG pH ABG pCO2 at Pt Temp ABG pO2 at Pt Temp ABG HCO3 ABG O2 Sat (Measured) ABG O2 Content ABG Base Excess Yousuf Test VBG pH POC VBG pCO2 POC VBG pO2 VBG HCO3 VBG O2 Sat ([place]) VBG Base Excess Patient On Oxygen O2 Delivery Device Oxygen Flow Rate Vent Mode Vent Rate Mechanical Rate PEEP Pressure Support Vent Sodium 144 Potassium 3.7 Chloride 114 H Carbon Dioxide 22 Anion Gap 8 BUN 14.5 Creatinine 0.4 L Est GFR (CKD-EPI)AfAm 174.63 Est GFR (CKD-EPI)NonAf 150.67 POC Glucometer Random Glucose 97 Lactic Acid Calcium 8.8 Phosphorus Magnesium Ferritin Total Bilirubin 0.5 Direct Bilirubin AST 46 H ALT 103 H Alkaline Phosphatase 143 H LD Total Creatine Kinase Creatine Kinase Index CK-MB (CK-2) Troponin I C-Reactive Protein B-Natriuretic Peptide Total Protein 6.0 L Albumin 2.7 L Triglycerides Lipase Interleukin 2 Interleukin 6 TSH Free T4 Urine Color Urine Appearance Urine pH Ur Specific [place] Urine Protein Urine Glucose (UA) Urine Ketones Urine Blood Urine Nitrite Urine Bilirubin Urine Urobilinogen Ur Leukocyte Esterase Urine WBC (Auto) Urine RBC (Auto) Urine Casts (Auto) U Pathogenic Cast Auto U Epithel Cells (Auto) Urine Crystals (Auto) Urine Bacteria (Auto) Urine Yeast (Auto) Stool Occult Blood Stool O & P Wet [place] Vancomycin Vancomycin Pre-Dose COVID-19 ([facility]EROY) CMV DNA Qual PCR Hep A IgM Ab Confirm Hepatitis A Ab Total Hep Bs Antigen Hep Bs Antibody Hep B Core Total Ab Hep B Core IgM Ab Hepatitis Be Antibody Hepatitis Be Antigen Hep C Ab Diagnostic Strongyloides IgG Ab TB Test (QFT) Nil TB Test (QFT) Mitogen TB Test (QFT) Ag 1 TB Test (QFT) Ag 2 TB Test (QFT) TB Positive Criteria O & P Permanent Slide Final report Blood Type Antibody Screen 08/28/19 08/28/19 08/28/19 09:00 09:00 09:00 WBC 11.8 H RBC 3.52 L Hgb 10.0 L Hct 31.6 L MCV 89.8 MCH 28.4 MCHC 31.6 L RDW 17.2 H Plt Count 292 MPV 11.2 H Absolute Neuts (auto) 7.7 Neutrophils % 65.4 D Neutrophils % (Manual) Band Neutrophils % Lymphocytes % 23.0 D Lymphocytes % (Manual) Monocytes % 6.0 Monocytes % (Manual) Eosinophils % 5.0 H Eosinophils % (Manual) Basophils % 0.6 Basophils % (Manual) Myelocytes % (Man) Promyelocytes % (Man) Blast Cells % (Manual) Nucleated RBC % 0 Metamyelocytes Hypochromia Platelet Estimate Polychromasia Poikilocytosis Basophilic Stippling Anisocytosis Microcytosis Macrocytosis Spherocytes Target Cells Tear Drop Cells Stomatocytes ESR 75 H PT with INR INR PTT (Actin FS) D-Dimer Anticoagulation Therapy Puncture Site Patient Temperature ABG pH ABG pCO2 at Pt Temp ABG pO2 at Pt Temp ABG HCO3 ABG O2 Sat (Measured) ABG O2 Content ABG Base Excess Yousuf Test VBG pH POC VBG pCO2 POC VBG pO2 VBG HCO3 VBG O2 Sat ([place]) VBG Base Excess Patient On Oxygen O2 Delivery Device Oxygen Flow Rate Vent Mode Vent Rate Mechanical Rate PEEP Pressure Support Vent Sodium 147 H Potassium 3.6 Chloride 115 H Carbon Dioxide 21 Anion Gap 11 BUN 14.1 Creatinine 0.5 L Est GFR (CKD-EPI)AfAm 159.33 Est GFR (CKD-EPI)NonAf 137.47 POC Glucometer Random Glucose 128 H Lactic Acid Calcium 8.9 Phosphorus Magnesium Ferritin Total Bilirubin 0.2 Direct Bilirubin AST 46 H ALT 106 H Alkaline Phosphatase 155 H LD Total Creatine Kinase Creatine Kinase Index CK-MB (CK-2) Troponin I C-Reactive Protein 3.8 H B-Natriuretic Peptide Total Protein 6.5 Albumin 2.8 L Triglycerides Lipase Interleukin 2 Interleukin 6 TSH Free T4 Urine Color Urine Appearance Urine pH Ur Specific [place] Urine Protein Urine Glucose (UA) Urine Ketones Urine Blood Urine Nitrite Urine Bilirubin Urine Urobilinogen Ur Leukocyte Esterase Urine WBC (Auto) Urine RBC (Auto) Urine Casts (Auto) U Pathogenic Cast Auto U Epithel Cells (Auto) Urine Crystals (Auto) Urine Bacteria (Auto) Urine Yeast (Auto) Stool Occult Blood Stool O & P Wet [place] Vancomycin Vancomycin Pre-Dose COVID-19 ([facility]) CMV DNA Qual PCR Hep A IgM Ab Confirm Hepatitis A Ab Total Hep Bs Antigen Hep Bs Antibody Hep B Core Total Ab Hep B Core IgM Ab Hepatitis Be Antibody Hepatitis Be Antigen Hep C Ab Diagnostic Strongyloides IgG Ab TB Test (QFT) Nil TB Test (QFT) Mitogen TB Test (QFT) Ag 1 TB Test (QFT) Ag 2 TB Test (QFT) TB Positive Criteria O & P Permanent Slide Blood Type Antibody Screen 08/28/19 08/29/19 08/29/19 09:00 07:36 07:36 WBC 15.5 H RBC 3.57 L Hgb 10.1 L Hct 32.2 L MCV 90.3 MCH 28.3 MCHC 31.3 L RDW 17.4 H Plt Count 236 MPV 12.5 H D Absolute Neuts (auto) 9.7 H Neutrophils % 65.8 Neutrophils % (Manual) Band Neutrophils % Lymphocytes % 22.1 Lymphocytes % (Manual) Monocytes % 6.4 Monocytes % (Manual) Eosinophils % 4.4 Eosinophils % (Manual) Basophils % 1.3 Basophils % (Manual) Myelocytes % (Man) Promyelocytes % (Man) Blast Cells % (Manual) Nucleated RBC % 0 Metamyelocytes Hypochromia Platelet Estimate Normal Polychromasia Poikilocytosis Basophilic Stippling Anisocytosis Microcytosis Macrocytosis Spherocytes Target Cells Tear Drop Cells Stomatocytes ESR PT with INR INR PTT (Actin FS) D-Dimer Anticoagulation Therapy Puncture Site Patient Temperature ABG pH ABG pCO2 at Pt Temp ABG pO2 at Pt Temp ABG HCO3 ABG O2 Sat (Measured) ABG O2 Content ABG Base Excess Yousuf Test VBG pH POC VBG pCO2 POC VBG pO2 VBG HCO3 VBG O2 Sat ([place]) VBG Base Excess Patient On Oxygen O2 Delivery Device Oxygen Flow Rate Vent Mode Vent Rate Mechanical Rate PEEP Pressure Support Vent Sodium Potassium Chloride Carbon Dioxide Anion Gap BUN Creatinine Est GFR (CKD-EPI)AfAm Est GFR (CKD-EPI)NonAf POC Glucometer Random Glucose Lactic Acid Calcium Phosphorus Magnesium Ferritin Total Bilirubin Direct Bilirubin AST ALT Alkaline Phosphatase LD Total Creatine Kinase Creatine Kinase Index CK-MB (CK-2) Troponin I C-Reactive Protein B-Natriuretic Peptide Total Protein Albumin Triglycerides Lipase Interleukin 2 Interleukin 6 TSH Free T4 Urine Color Urine Appearance Urine pH Ur Specific [place] Urine Protein Urine Glucose (UA) Urine Ketones Urine Blood Urine Nitrite Urine Bilirubin Urine Urobilinogen Ur Leukocyte Esterase Urine WBC (Auto) Urine RBC (Auto) Urine Casts (Auto) U Pathogenic Cast Auto U Epithel Cells (Auto) Urine Crystals (Auto) Urine Bacteria (Auto) Urine Yeast (Auto) Stool Occult Blood Stool O & P Wet [place] Vancomycin Vancomycin Pre-Dose COVID-19 ([facility]ERO[facility]) CMV DNA Qual PCR Negative Hep A IgM Ab Confirm Negative Hepatitis A Ab Total Positive H Hep Bs Antigen Negative Hep Bs Antibody Non reactive Hep B Core Total Ab Negative Hep B Core IgM Ab Negative Hepatitis Be Antibody Negative Hepatitis Be Antigen Negative Hep C Ab Diagnostic Strongyloides IgG Ab TB Test (QFT) Nil TB Test (QFT) Mitogen TB Test (QFT) Ag 1 TB Test (QFT) Ag 2 TB Test (QFT) TB Positive Criteria O & P Permanent Slide Blood Type Antibody Screen 08/29/19 08/29/19 08/31/19 07:36 11:05 07:30 WBC RBC Hgb Hct MCV MCH MCHC RDW Plt Count MPV Absolute Neuts (auto) Neutrophils % Neutrophils % (Manual) Band Neutrophils % Lymphocytes % Lymphocytes % (Manual) Monocytes % Monocytes % (Manual) Eosinophils % Eosinophils % (Manual) Basophils % Basophils % (Manual) Myelocytes % (Man) Promyelocytes % (Man) Blast Cells % (Manual) Nucleated RBC % Metamyelocytes Hypochromia Platelet Estimate Polychromasia Poikilocytosis Basophilic Stippling Anisocytosis Microcytosis Macrocytosis Spherocytes Target Cells Tear Drop Cells Stomatocytes ESR PT with INR INR PTT (Actin FS) D-Dimer Anticoagulation Therapy Puncture Site Patient Temperature ABG pH ABG pCO2 at Pt Temp ABG pO2 at Pt Temp ABG HCO3 ABG O2 Sat (Measured) ABG O2 Content ABG Base Excess Yousuf Test VBG pH POC VBG pCO2 POC VBG pO2 VBG HCO3 VBG O2 Sat ([place]) VBG Base Excess Patient On Oxygen O2 Delivery Device Oxygen Flow Rate Vent Mode Vent Rate Mechanical Rate PEEP Pressure Support Vent Sodium 144 144 Potassium 3.7 3.8 Chloride 112 H 112 H Carbon Dioxide 24 21 Anion Gap 9 11 BUN 13.3 12.6 Creatinine 0.5 L 0.4 L Est GFR (CKD-EPI)AfAm 159.33 174.63 Est GFR (CKD-EPI)NonAf 137.47 150.67 POC Glucometer Random Glucose 109 H 112 H Lactic Acid Calcium 9.0 8.9 Phosphorus Magnesium Ferritin Total Bilirubin 0.4 0.2 Direct Bilirubin AST 51 H 58 H ALT 103 H 122 H Alkaline Phosphatase 148 H 142 H LD Total Creatine Kinase 85 Creatine Kinase Index CK-MB (CK-2) Troponin I C-Reactive Protein B-Natriuretic Peptide Total Protein 6.2 L 6.1 L Albumin 2.7 L 2.6 L Triglycerides Lipase Interleukin 2 Interleukin 6 TSH Free T4 Urine Color Urine Appearance Urine pH Ur Specific [place] Urine Protein Urine Glucose (UA) Urine Ketones Urine Blood Urine Nitrite Urine Bilirubin Urine Urobilinogen Ur Leukocyte Esterase Urine WBC (Auto) Urine RBC (Auto) Urine Casts (Auto) U Pathogenic Cast Auto U Epithel Cells (Auto) Urine Crystals (Auto) Urine Bacteria (Auto) Urine Yeast (Auto) Stool Occult Blood Stool O & P Wet [place] Vancomycin Vancomycin Pre-Dose COVID-19 ([facility]) CMV DNA Qual PCR Hep A IgM Ab Confirm Hepatitis A Ab Total Hep Bs Antigen Hep Bs Antibody Hep B Core Total Ab Hep B Core IgM Ab Hepatitis Be Antibody Hepatitis Be Antigen Hep C Ab Diagnostic 0.1 Strongyloides IgG Ab TB Test (QFT) Nil TB Test (QFT) Mitogen TB Test (QFT) Ag 1 TB Test (QFT) Ag 2 TB Test (QFT) TB Positive Criteria O & P Permanent Slide Blood Type Antibody Screen 09/02/19 09/02/19 09/03/19 08:15 08:15 06:50 WBC 16.7 H 15.1 H RBC 3.77 L 3.43 L Hgb 10.1 L 9.3 L Hct 33.1 L 30.1 L MCV 87.8 87.7 MCH 26.8 27.2 MCHC 30.5 L 31.0 L RDW 16.9 H 16.9 H Plt Count 253 221 MPV 11.7 H 12.1 H Absolute Neuts (auto) 13.0 H 10.5 H Neutrophils % 77.6 69.4 Neutrophils % (Manual) Band Neutrophils % Lymphocytes % 14.5 D 21.0 D Lymphocytes % (Manual) Monocytes % 5.9 6.6 Monocytes % (Manual) Eosinophils % 1.5 2.6 Eosinophils % (Manual) Basophils % 0.5 0.4 Basophils % (Manual) Myelocytes % (Man) Promyelocytes % (Man) Blast Cells % (Manual) Nucleated RBC % 0 0 Metamyelocytes Hypochromia Platelet Estimate Polychromasia Poikilocytosis Basophilic Stippling Anisocytosis Microcytosis Macrocytosis Spherocytes Target Cells Tear Drop Cells Stomatocytes ESR PT with INR INR PTT (Actin FS) D-Dimer Anticoagulation Therapy Puncture Site Patient Temperature ABG pH ABG pCO2 at Pt Temp ABG pO2 at Pt Temp ABG HCO3 ABG O2 Sat (Measured) ABG O2 Content ABG Base Excess Yousuf Test VBG pH POC VBG pCO2 POC VBG pO2 VBG HCO3 VBG O2 Sat ([place]) VBG Base Excess Patient On Oxygen O2 Delivery Device Oxygen Flow Rate Vent Mode Vent Rate Mechanical Rate PEEP Pressure Support Vent Sodium 142 Potassium 3.8 Chloride 111 H Carbon Dioxide 22 Anion Gap 8 BUN 12.6 Creatinine 0.4 L Est GFR (CKD-EPI)AfAm 174.63 Est GFR (CKD-EPI)NonAf 150.67 POC Glucometer Random Glucose 114 H Lactic Acid Calcium 9.2 Phosphorus Magnesium Ferritin Total Bilirubin 0.3 Direct Bilirubin AST 66 H ALT 158 H Alkaline Phosphatase 154 H LD Total Creatine Kinase Creatine Kinase Index CK-MB (CK-2) Troponin I C-Reactive Protein B-Natriuretic Peptide Total Protein 6.4 Albumin 2.6 L Triglycerides Lipase Interleukin 2 Interleukin 6 TSH Free T4 Urine Color Urine Appearance Urine pH Ur Specific [place] Urine Protein Urine Glucose (UA) Urine Ketones Urine Blood Urine Nitrite Urine Bilirubin Urine Urobilinogen Ur Leukocyte Esterase Urine WBC (Auto) Urine RBC (Auto) Urine Casts (Auto) U Pathogenic Cast Auto U Epithel Cells (Auto) Urine Crystals (Auto) Urine Bacteria (Auto) Urine Yeast (Auto) Stool Occult Blood Stool O & P Wet [place] Vancomycin Vancomycin Pre-Dose COVID-19 ([facility]) CMV DNA Qual PCR Hep A IgM Ab Confirm Hepatitis A Ab Total Hep Bs Antigen Hep Bs Antibody Hep B Core Total Ab Hep B Core IgM Ab Hepatitis Be Antibody Hepatitis Be Antigen Hep C Ab Diagnostic Strongyloides IgG Ab TB Test (QFT) Nil TB Test (QFT) Mitogen TB Test (QFT) Ag 1 TB Test (QFT) Ag 2 TB Test (QFT) TB Positive Criteria O & P Permanent Slide Blood Type Antibody Screen 09/03/19 09/03/19 09/03/19 06:50 09:30 09:30 WBC RBC Hgb Hct MCV MCH MCHC RDW Plt Count MPV Absolute Neuts (auto) Neutrophils % Neutrophils % (Manual) Band Neutrophils % Lymphocytes % Lymphocytes % (Manual) Monocytes % Monocytes % (Manual) Eosinophils % Eosinophils % (Manual) Basophils % Basophils % (Manual) Myelocytes % (Man) Promyelocytes % (Man) Blast Cells % (Manual) Nucleated RBC % Metamyelocytes Hypochromia Platelet Estimate Polychromasia Poikilocytosis Basophilic Stippling Anisocytosis Microcytosis Macrocytosis Spherocytes Target Cells Tear Drop Cells Stomatocytes ESR PT with INR INR PTT (Actin FS) D-Dimer Anticoagulation Therapy Puncture Site Patient Temperature ABG pH ABG pCO2 at Pt Temp ABG pO2 at Pt Temp ABG HCO3 ABG O2 Sat (Measured) ABG O2 Content ABG Base Excess Yousuf Test VBG pH POC VBG pCO2 POC VBG pO2 VBG HCO3 VBG O2 Sat ([place]) VBG Base Excess Patient On Oxygen O2 Delivery Device Oxygen Flow Rate Vent Mode Vent Rate Mechanical Rate PEEP Pressure Support Vent Sodium 141 Potassium 3.6 Chloride 111 H Carbon Dioxide 24 Anion Gap 6 L BUN 13.8 Creatinine 0.4 L Est GFR (CKD-EPI)AfAm 174.63 Est GFR (CKD-EPI)NonAf 150.67 POC Glucometer Random Glucose 129 H Lactic Acid Calcium 8.8 Phosphorus Magnesium 2.2 Ferritin Total Bilirubin 0.3 Direct Bilirubin AST 47 H ALT 131 H Alkaline Phosphatase 140 H LD Total Creatine Kinase Creatine Kinase Index CK-MB (CK-2) Troponin I C-Reactive Protein B-Natriuretic Peptide Total Protein 5.9 L Albumin 2.4 L Triglycerides Lipase Interleukin 2 Interleukin 6 TSH Free T4 Urine Color Yellow Urine Appearance Cloudy Urine pH 8.0 D Ur Specific [place] 1.011 Urine Protein Trace Urine Glucose (UA) Negative Urine Ketones Negative Urine Blood Trace Urine Nitrite Negative Urine Bilirubin Negative Urine Urobilinogen 0.2 Ur Leukocyte Esterase 3+ H Urine WBC (Auto) 1362 Urine RBC (Auto) 37 Urine Casts (Auto) 3 U Pathogenic Cast Auto U Epithel Cells (Auto) 10 Urine Crystals (Auto) Urine Bacteria (Auto) >10,000 Urine Yeast (Auto) Stool Occult Blood Stool O & P Wet [place] Vancomycin Vancomycin Pre-Dose COVID-19 ([facility]) Not detected CMV DNA Qual PCR Hep A IgM Ab Confirm Hepatitis A Ab Total Hep Bs Antigen Hep Bs Antibody Hep B Core Total Ab Hep B Core IgM Ab Hepatitis Be Antibody Hepatitis Be Antigen Hep C Ab Diagnostic Strongyloides IgG Ab TB Test (QFT) Nil TB Test (QFT) Mitogen TB Test (QFT) Ag 1 TB Test (QFT) Ag 2 TB Test (QFT) TB Positive Criteria O & P Permanent Slide Blood Type Antibody Screen 09/04/19 09/04/19 09/05/19 07:08 07:08 09:20 WBC 13.0 H 12.6 H RBC 3.49 L 3.59 L Hgb 9.3 L 9.7 L Hct 30.6 L 31.0 L MCV 87.9 86.6 MCH 26.6 26.9 MCHC 30.3 L 31.1 L RDW 16.7 H 16.9 H Plt Count 238 293 D MPV 11.4 H 10.8 Absolute Neuts (auto) 9.3 H 8.6 H Neutrophils % 71.3 67.8 Neutrophils % (Manual) Band Neutrophils % Lymphocytes % 18.0 22.0 D Lymphocytes % (Manual) Monocytes % 6.0 6.1 Monocytes % (Manual) Eosinophils % 4.2 3.7 Eosinophils % (Manual) Basophils % 0.5 0.4 Basophils % (Manual) Myelocytes % (Man) Promyelocytes % (Man) Blast Cells % (Manual) Nucleated RBC % 0 0 Metamyelocytes Hypochromia Platelet Estimate Polychromasia Poikilocytosis Basophilic Stippling Anisocytosis Microcytosis Macrocytosis Spherocytes Target Cells Tear Drop Cells Stomatocytes ESR PT with INR INR PTT (Actin FS) D-Dimer Anticoagulation Therapy Puncture Site Patient Temperature ABG pH ABG pCO2 at Pt Temp ABG pO2 at Pt Temp ABG HCO3 ABG O2 Sat (Measured) ABG O2 Content ABG Base Excess Yousuf Test VBG pH POC VBG pCO2 POC VBG pO2 VBG HCO3 VBG O2 Sat ([place]) VBG Base Excess Patient On Oxygen O2 Delivery Device Oxygen Flow Rate Vent Mode Vent Rate Mechanical Rate PEEP Pressure Support Vent Sodium 141 Potassium 3.7 Chloride 110 H Carbon Dioxide 24 Anion Gap 6 L BUN 14.9 Creatinine 0.4 L Est GFR (CKD-EPI)AfAm 174.63 Est GFR (CKD-EPI)NonAf 150.67 POC Glucometer Random Glucose 120 H Lactic Acid Calcium 8.7 Phosphorus 5.3 H Magnesium 2.1 Ferritin Total Bilirubin Direct Bilirubin AST ALT Alkaline Phosphatase LD Total Creatine Kinase Creatine Kinase Index CK-MB (CK-2) Troponin I C-Reactive Protein B-Natriuretic Peptide Total Protein Albumin Triglycerides Lipase 241 Interleukin 2 Interleukin 6 TSH Free T4 Urine Color Urine Appearance Urine pH Ur Specific [place] Urine Protein Urine Glucose (UA) Urine Ketones Urine Blood Urine Nitrite Urine Bilirubin Urine Urobilinogen Ur Leukocyte Esterase Urine WBC (Auto) Urine RBC (Auto) Urine Casts (Auto) U Pathogenic Cast Auto U Epithel Cells (Auto) Urine Crystals (Auto) Urine Bacteria (Auto) Urine Yeast (Auto) Stool Occult Blood Stool O & P Wet [place] Vancomycin Vancomycin Pre-Dose COVID-19 ([facility]) CMV DNA Qual PCR Hep A IgM Ab Confirm Hepatitis A Ab Total Hep Bs Antigen Hep Bs Antibody Hep B Core Total Ab Hep B Core IgM Ab Hepatitis Be Antibody Hepatitis Be Antigen Hep C Ab Diagnostic Strongyloides IgG Ab TB Test (QFT) Nil TB Test (QFT) Mitogen TB Test (QFT) Ag 1 TB Test (QFT) Ag 2 TB Test (QFT) TB Positive Criteria O & P Permanent Slide Blood Type Antibody Screen 09/05/19 09/06/19 09/06/19 09:20 08:16 08:16 WBC 10.3 H RBC 3.59 L Hgb 10.0 L Hct 31.5 L MCV 87.9 MCH 27.8 MCHC 31.6 L RDW 16.6 H Plt Count 311 MPV 11.2 H Absolute Neuts (auto) 6.7 Neutrophils % 65.3 Neutrophils % (Manual) Band Neutrophils % Lymphocytes % 23.3 Lymphocytes % (Manual) Monocytes % 7.1 Monocytes % (Manual) Eosinophils % 3.7 Eosinophils % (Manual) Basophils % 0.6 Basophils % (Manual) Myelocytes % (Man) Promyelocytes % (Man) Blast Cells % (Manual) Nucleated RBC % 0 Metamyelocytes Hypochromia Platelet Estimate Polychromasia Poikilocytosis Basophilic Stippling Anisocytosis Microcytosis Macrocytosis Spherocytes Target Cells Tear Drop Cells Stomatocytes ESR PT with INR INR PTT (Actin FS) D-Dimer Anticoagulation Therapy Puncture Site Patient Temperature ABG pH ABG pCO2 at Pt Temp ABG pO2 at Pt Temp ABG HCO3 ABG O2 Sat (Measured) ABG O2 Content ABG Base Excess Yousuf Test VBG pH POC VBG pCO2 POC VBG pO2 VBG HCO3 VBG O2 Sat ([place]) VBG Base Excess Patient On Oxygen O2 Delivery Device Oxygen Flow Rate Vent Mode Vent Rate Mechanical Rate PEEP Pressure Support Vent Sodium 143 146 H Potassium 3.6 3.7 Chloride 113 H 113 H Carbon Dioxide 26 22 Anion Gap 5 L 12 BUN 13.5 15.6 Creatinine 0.4 L 0.4 L Est GFR (CKD-EPI)AfAm 174.63 174.63 Est GFR (CKD-EPI)NonAf 150.67 150.67 POC Glucometer Random Glucose 98 96 Lactic Acid Calcium 9.6 10.0 Phosphorus Magnesium Ferritin Total Bilirubin 0.3 0.2 Direct Bilirubin AST 49 H 59 H ALT 140 H 143 H Alkaline Phosphatase 131 H 127 H LD Total Creatine Kinase Creatine Kinase Index CK-MB (CK-2) Troponin I C-Reactive Protein B-Natriuretic Peptide Total Protein 6.3 L 6.5 Albumin 2.5 L 2.6 L Triglycerides Lipase Interleukin 2 Interleukin 6 TSH Free T4 Urine Color Urine Appearance Urine pH Ur Specific [place] Urine Protein Urine Glucose (UA) Urine Ketones Urine Blood Urine Nitrite Urine Bilirubin Urine Urobilinogen Ur Leukocyte Esterase Urine WBC (Auto) Urine RBC (Auto) Urine Casts (Auto) U Pathogenic Cast Auto U Epithel Cells (Auto) Urine Crystals (Auto) Urine Bacteria (Auto) Urine Yeast (Auto) Stool Occult Blood Stool O & P Wet [place] Vancomycin Vancomycin Pre-Dose COVID-19 ([facility]) CMV DNA Qual PCR Hep A IgM Ab Confirm Hepatitis A Ab Total Hep Bs Antigen Hep Bs Antibody Hep B Core Total Ab Hep B Core IgM Ab Hepatitis Be Antibody Hepatitis Be Antigen Hep C Ab Diagnostic Strongyloides IgG Ab TB Test (QFT) Nil TB Test (QFT) Mitogen TB Test (QFT) Ag 1 TB Test (QFT) Ag 2 TB Test (QFT) TB Positive Criteria O & P Permanent Slide Blood Type Antibody Screen 09/07/19 09/07/19 09/08/19 11:00 11:00 06:55 WBC 10.0 9.8 RBC 3.91 L 3.48 L Hgb 11.0 L 9.7 L Hct 35.1 L 30.8 L MCV 89.7 88.5 MCH 28.0 27.9 MCHC 31.3 L 31.5 L RDW 16.6 H 16.5 H Plt Count 306 MPV 11.5 H 10.7 Absolute Neuts (auto) 5.5 Neutrophils % No Result Required. 56.0 Neutrophils % (Manual) 66.3 Band Neutrophils % 0.0 Lymphocytes % No Result Required. 30.1 D Lymphocytes % (Manual) 26.5 D Monocytes % 8.7 Monocytes % (Manual) 5 Eosinophils % 4.4 Eosinophils % (Manual) 2.1 D Basophils % 0.8 Basophils % (Manual) 0.0 Myelocytes % (Man) 0 Promyelocytes % (Man) 0 Blast Cells % (Manual) 0 Nucleated RBC % 0 0 Metamyelocytes 0 D Hypochromia 0 Platelet Estimate Normal Polychromasia 0 Poikilocytosis 0 Basophilic Stippling Anisocytosis 0 Microcytosis 0 Macrocytosis 0 Spherocytes Target Cells Tear Drop Cells Stomatocytes ESR PT with INR INR PTT (Actin FS) D-Dimer Anticoagulation Therapy Puncture Site Patient Temperature ABG pH ABG pCO2 at Pt Temp ABG pO2 at Pt Temp ABG HCO3 ABG O2 Sat (Measured) ABG O2 Content ABG Base Excess Yousuf Test VBG pH POC VBG pCO2 POC VBG pO2 VBG HCO3 VBG O2 Sat ([place]) VBG Base Excess Patient On Oxygen O2 Delivery Device Oxygen Flow Rate Vent Mode Vent Rate Mechanical Rate PEEP Pressure Support Vent Sodium 147 H Potassium 3.6 Chloride 115 H Carbon Dioxide 22 Anion Gap 10 BUN 14.3 Creatinine 0.5 L Est GFR (CKD-EPI)AfAm 159.33 Est GFR (CKD-EPI)NonAf 137.47 POC Glucometer Random Glucose 107 H Lactic Acid Calcium 9.6 Phosphorus Magnesium Ferritin Total Bilirubin 0.3 Direct Bilirubin AST 53 H ALT 127 H Alkaline Phosphatase 138 H LD Total Creatine Kinase Creatine Kinase Index CK-MB (CK-2) Troponin I C-Reactive Protein B-Natriuretic Peptide Total Protein 7.0 Albumin 2.7 L Triglycerides Lipase Interleukin 2 Interleukin 6 TSH Free T4 Urine Color Urine Appearance Urine pH Ur Specific [place] [place] Urine Protein Urine Glucose (UA) Urine Ketones Urine Blood Urine Nitrite Urine Bilirubin Urine Urobilinogen Ur Leukocyte Esterase Urine WBC (Auto) Urine RBC (Auto) Urine Casts (Auto) U Pathogenic Cast Auto U Epithel Cells (Auto) Urine Crystals (Auto) Urine Bacteria (Auto) Urine Yeast (Auto) Stool Occult Blood Stool O & P Wet [place] Vancomycin Vancomycin Pre-Dose COVID-19 (LEROY) CMV DNA Qual PCR Hep A IgM Ab Confirm Hepatitis A Ab Total Hep Bs Antigen Hep Bs Antibody Hep B Core Total Ab Hep B Core IgM Ab Hepatitis Be Antibody Hepatitis Be Antigen Hep C Ab Diagnostic Strongyloides IgG Ab TB Test (QFT) Nil TB Test (QFT) Mitogen TB Test (QFT) Ag 1 TB Test (QFT) Ag 2 TB Test (QFT) TB Positive Criteria O & P Permanent Slide Blood Type Antibody Screen 09/08/19 09/09/19 09/09/19 06:55 07:40 07:40 WBC 9.8 RBC 3.51 L Hgb 9.5 L Hct 30.6 L MCV 87.3 MCH 27.1 MCHC 31.1 L RDW 16.6 H Plt Count 295 MPV 10.1 Absolute Neuts (auto) 5.4 Neutrophils % 54.9 Neutrophils % (Manual) Band Neutrophils % Lymphocytes % 31.8 Lymphocytes % (Manual) Monocytes % 6.4 Monocytes % (Manual) Eosinophils % 6.3 H Eosinophils % (Manual) Basophils % 0.6 Basophils % (Manual) Myelocytes % (Man) Promyelocytes % (Man) Blast Cells % (Manual) Nucleated RBC % 0 Metamyelocytes Hypochromia Platelet Estimate Polychromasia Poikilocytosis Basophilic Stippling Anisocytosis Microcytosis Macrocytosis Spherocytes Target Cells Tear Drop Cells Stomatocytes ESR PT with INR INR PTT (Actin FS) D-Dimer Anticoagulation Therapy Puncture Site Patient Temperature ABG pH ABG pCO2 at Pt Temp ABG pO2 at Pt Temp ABG HCO3 ABG O2 Sat (Measured) ABG O2 Content ABG Base Excess Yousuf Test VBG pH POC VBG pCO2 POC VBG pO2 VBG HCO3 VBG O2 Sat ([place]) VBG Base Excess Patient On Oxygen O2 Delivery Device Oxygen Flow Rate Vent Mode Vent Rate Mechanical Rate PEEP Pressure Support Vent Sodium 149 H 145 Potassium 3.8 3.6 Chloride 117 H 114 H Carbon Dioxide 23 22 Anion Gap 9 10 BUN 14.4 13.3 Creatinine 0.4 L 0.4 L Est GFR (CKD-EPI)AfAm 174.63 174.63 Est GFR (CKD-EPI)NonAf 150.67 150.67 POC Glucometer Random Glucose 96 120 H Lactic Acid Calcium 9.1 9.1 Phosphorus Magnesium 2.1 2.1 Ferritin Total Bilirubin 0.2 0.2 Direct Bilirubin AST 60 H 44 H ALT 129 H 108 H Alkaline Phosphatase 125 H 122 H LD Total Creatine Kinase Creatine Kinase Index CK-MB (CK-2) Troponin I C-Reactive Protein B-Natriuretic Peptide Total Protein 6.3 L 6.0 L Albumin 2.7 L 2.6 L Triglycerides Lipase Interleukin 2 Interleukin 6 TSH Free T4 Urine Color Urine Appearance Urine pH Ur Specific [place] Urine Protein Urine Glucose (UA) Urine Ketones Urine Blood Urine Nitrite Urine Bilirubin Urine Urobilinogen Ur Leukocyte Esterase Urine WBC (Auto) Urine RBC (Auto) Urine Casts (Auto) U Pathogenic Cast Auto U Epithel Cells (Auto) Urine Crystals (Auto) Urine Bacteria (Auto) Urine Yeast (Auto) Stool Occult Blood Stool O & P Wet [place] Vancomycin Vancomycin Pre-Dose COVID-19 ([facility]EROY) CMV DNA Qual PCR Hep A IgM Ab Confirm Hepatitis A Ab Total Hep Bs Antigen Hep Bs Antibody Hep B Core Total Ab Hep B Core IgM Ab Hepatitis Be Antibody Hepatitis Be Antigen Hep C Ab Diagnostic Strongyloides IgG Ab TB Test (QFT) Nil TB Test (QFT) Mitogen TB Test (QFT) Ag 1 TB Test (QFT) Ag 2 TB Test (QFT) TB Positive Criteria O & P Permanent Slide Blood Type Antibody Screen 09/10/19 09/10/19 09/11/19 07:20 07:20 09:00 WBC 10.4 H RBC 3.57 L Hgb 9.8 L Hct 31.3 L MCV 87.9 MCH 27.3 MCHC 31.1 L RDW 16.5 H Plt Count 274 MPV 10.7 Absolute Neuts (auto) 5.8 Neutrophils % 55.5 Neutrophils % (Manual) Band Neutrophils % Lymphocytes % 30.3 Lymphocytes % (Manual) Monocytes % 6.5 Monocytes % (Manual) Eosinophils % 7.0 H Eosinophils % (Manual) Basophils % 0.7 Basophils % (Manual) Myelocytes % (Man) Promyelocytes % (Man) Blast Cells % (Manual) Nucleated RBC % 0 Metamyelocytes Hypochromia Platelet Estimate Polychromasia Poikilocytosis Basophilic Stippling Anisocytosis Microcytosis Macrocytosis Spherocytes Target Cells Tear Drop Cells Stomatocytes ESR PT with INR INR PTT (Actin FS) D-Dimer Anticoagulation Therapy Puncture Site Patient Temperature ABG pH ABG pCO2 at Pt Temp ABG pO2 at Pt Temp ABG HCO3 ABG O2 Sat (Measured) ABG O2 Content ABG Base Excess Yousuf Test VBG pH POC VBG pCO2 POC VBG pO2 VBG HCO3 VBG O2 Sat ([place]) VBG Base Excess Patient On Oxygen O2 Delivery Device Oxygen Flow Rate Vent Mode Vent Rate Mechanical Rate PEEP Pressure Support Vent Sodium 140 Potassium 3.5 Chloride 109 H Carbon Dioxide 21 Anion Gap 10 BUN 12.5 Creatinine 0.4 L Est GFR (CKD-EPI)AfAm 174.63 Est GFR (CKD-EPI)NonAf 150.67 POC Glucometer Random Glucose 108 H Lactic Acid Calcium 8.9 Phosphorus Magnesium 2.0 Ferritin Total Bilirubin 0.2 Direct Bilirubin AST 46 H ALT 97 H Alkaline Phosphatase 121 H LD Total Creatine Kinase Creatine Kinase Index CK-MB (CK-2) Troponin I C-Reactive Protein B-Natriuretic Peptide Total Protein 6.0 L Albumin 2.5 L Triglycerides Lipase Interleukin 2 Interleukin 6 TSH Free T4 Urine Color Urine Appearance Urine pH Ur Specific [place] Urine Protein Urine Glucose (UA) Urine Ketones Urine Blood Urine Nitrite Urine Bilirubin Urine Urobilinogen Ur Leukocyte Esterase Urine WBC (Auto) Urine RBC (Auto) Urine Casts (Auto) U Pathogenic Cast Auto U Epithel Cells (Auto) Urine Crystals (Auto) Urine Bacteria (Auto) Urine Yeast (Auto) Stool Occult Blood Stool O & P Wet [place] Vancomycin Vancomycin Pre-Dose COVID-19 ([facility]) Not detected CMV DNA Qual PCR Hep A IgM Ab Confirm Hepatitis A Ab Total Hep Bs Antigen Hep Bs Antibody Hep B Core Total Ab Hep B Core IgM Ab Hepatitis Be Antibody Hepatitis Be Antigen Hep C Ab Diagnostic Strongyloides IgG Ab TB Test (QFT) Nil TB Test (QFT) Mitogen TB Test (QFT) Ag 1 TB Test (QFT) Ag 2 TB Test (QFT) TB Positive Criteria O & P Permanent Slide Blood Type Antibody Screen 09/11/19 09/11/19 09/12/19 10:28 17:42 07:05 WBC 10.8 H RBC 3.65 L Hgb 9.9 L Hct 31.4 L MCV 86.0 MCH 27.2 MCHC 31.6 L RDW 16.8 H Plt Count 282 MPV 10.2 Absolute Neuts (auto) 6.9 Neutrophils % 63.5 Neutrophils % (Manual) Band Neutrophils % Lymphocytes % 24.0 D Lymphocytes % (Manual) Monocytes % 6.8 Monocytes % (Manual) Eosinophils % 5.0 H Eosinophils % (Manual) Basophils % 0.7 Basophils % (Manual) Myelocytes % (Man) Promyelocytes % (Man) Blast Cells % (Manual) Nucleated RBC % 0 Metamyelocytes Hypochromia Platelet Estimate Polychromasia Poikilocytosis Basophilic Stippling Anisocytosis Microcytosis Macrocytosis Spherocytes Target Cells Tear Drop Cells Stomatocytes ESR PT with INR INR PTT (Actin FS) D-Dimer Anticoagulation Therapy Puncture Site Patient Temperature ABG pH ABG pCO2 at Pt Temp ABG pO2 at Pt Temp ABG HCO3 ABG O2 Sat (Measured) ABG O2 Content ABG Base Excess Yousuf Test VBG pH POC VBG pCO2 POC VBG pO2 VBG HCO3 VBG O2 Sat ([place]) VBG Base Excess Patient On Oxygen O2 Delivery Device Oxygen Flow Rate Vent Mode Vent Rate Mechanical Rate PEEP Pressure Support Vent Sodium 138 141 Potassium 3.6 3.7 Chloride 106 108 H Carbon Dioxide 25 25 Anion Gap 7 L 7 L BUN 8.9 8.9 Creatinine 0.4 L 0.4 L Est GFR (CKD-EPI)AfAm 174.63 174.63 Est GFR (CKD-EPI)NonAf 150.67 150.67 POC Glucometer Random Glucose 95 108 H Lactic Acid Calcium 8.9 9.0 Phosphorus Magnesium Ferritin Total Bilirubin 0.2 Direct Bilirubin AST 44 H ALT 97 H Alkaline Phosphatase 131 H LD Total Creatine Kinase Creatine Kinase Index CK-MB (CK-2) Troponin I C-Reactive Protein B-Natriuretic Peptide Total Protein 6.4 Albumin 2.7 L Triglycerides Lipase Interleukin 2 Interleukin 6 TSH Free T4 Urine Color Urine Appearance Urine pH Ur Specific [place] Urine Protein Urine Glucose (UA) Urine Ketones Urine Blood Urine Nitrite Urine Bilirubin Urine Urobilinogen Ur Leukocyte Esterase Urine WBC (Auto) Urine RBC (Auto) Urine Casts (Auto) U Pathogenic Cast Auto U Epithel Cells (Auto) Urine Crystals (Auto) Urine Bacteria (Auto) Urine Yeast (Auto) Stool Occult Blood Stool O & P Wet [place] Vancomycin Vancomycin Pre-Dose COVID-19 ([facility]) CMV DNA Qual PCR Hep A IgM Ab Confirm Hepatitis A Ab Total Hep Bs Antigen Hep Bs Antibody Hep B Core Total Ab Hep B Core IgM Ab Hepatitis Be Antibody Hepatitis Be Antigen Hep C Ab Diagnostic Strongyloides IgG Ab TB Test (QFT) Nil TB Test (QFT) Mitogen TB Test (QFT) Ag 1 TB Test (QFT) Ag 2 TB Test (QFT) TB Positive Criteria O & P Permanent Slide Blood Type Antibody Screen 09/12/19 09/14/19 09/15/19 07:05 17:20 07:03 WBC RBC Hgb Hct MCV MCH MCHC RDW Plt Count MPV Absolute Neuts (auto) Neutrophils % Neutrophils % (Manual) Band Neutrophils % Lymphocytes % Lymphocytes % (Manual) Monocytes % Monocytes % (Manual) Eosinophils % Eosinophils % (Manual) Basophils % Basophils % (Manual) Myelocytes % (Man) Promyelocytes % (Man) Blast Cells % (Manual) Nucleated RBC % Metamyelocytes Hypochromia Platelet Estimate Polychromasia Poikilocytosis Basophilic Stippling Anisocytosis Microcytosis Macrocytosis Spherocytes Target Cells Tear Drop Cells Stomatocytes ESR PT with INR INR PTT (Actin FS) D-Dimer Anticoagulation Therapy Puncture Site Patient Temperature ABG pH ABG pCO2 at Pt Temp ABG pO2 at Pt Temp ABG HCO3 ABG O2 Sat (Measured) ABG O2 Content ABG Base Excess Yousuf Test VBG pH POC VBG pCO2 POC VBG pO2 VBG HCO3 VBG O2 Sat ([place]) VBG Base Excess Patient On Oxygen O2 Delivery Device Oxygen Flow Rate Vent Mode Vent Rate Mechanical Rate PEEP Pressure Support Vent Sodium 141 141 Potassium 4.7 3.7 Chloride 110 H 109 H Carbon Dioxide 22 22 Anion Gap 10 10 BUN 10.9 11.0 Creatinine 0.5 L 0.4 L Est GFR (CKD-EPI)AfAm 159.33 174.63 Est GFR (CKD-EPI)NonAf 137.47 150.67 POC Glucometer Random Glucose 88 124 H Lactic Acid Calcium 9.0 9.3 Phosphorus 5.4 H Magnesium 1.9 1.8 Ferritin Total Bilirubin 0.2 Direct Bilirubin AST 30 ALT 73 H Alkaline Phosphatase 123 H LD Total Creatine Kinase Creatine Kinase Index CK-MB (CK-2) Troponin I C-Reactive Protein B-Natriuretic Peptide Total Protein 6.0 L Albumin 2.5 L Triglycerides Lipase Interleukin 2 Interleukin 6 TSH Free T4 Urine Color Urine Appearance Urine pH Ur Specific [place] Urine Protein Urine Glucose (UA) Urine Ketones Urine Blood Urine Nitrite Urine Bilirubin Urine Urobilinogen Ur Leukocyte Esterase Urine WBC (Auto) Urine RBC (Auto) Urine Casts (Auto) U Pathogenic Cast Auto U Epithel Cells (Auto) Urine Crystals (Auto) Urine Bacteria (Auto) Urine Yeast (Auto) Stool Occult Blood Stool O & P Wet [place] Vancomycin Vancomycin Pre-Dose COVID-19 ([facility]) CMV DNA Qual PCR Hep A IgM Ab Confirm Hepatitis A Ab Total Hep Bs Antigen Hep Bs Antibody Hep B Core Total Ab Hep B Core IgM Ab Hepatitis Be Antibody Hepatitis Be Antigen Hep C Ab Diagnostic Strongyloides IgG Ab TB Test (QFT) Nil TB Test (QFT) Mitogen TB Test (QFT) Ag 1 TB Test (QFT) Ag 2 TB Test (QFT) TB Positive Criteria O & P Permanent Slide Blood Type Antibody Screen 09/15/19 09/16/19 07:03 07:32 WBC 10.8 H RBC 3.54 L Hgb 9.8 L Hct 30.8 L MCV 86.8 MCH 27.5 MCHC 31.7 L RDW 16.9 H Plt Count 274 MPV 10.1 Absolute Neuts (auto) Neutrophils % Neutrophils % (Manual) Band Neutrophils % Lymphocytes % Lymphocytes % (Manual) Monocytes % Monocytes % (Manual) Eosinophils % Eosinophils % (Manual) Basophils % Basophils % (Manual) Myelocytes % (Man) Promyelocytes % (Man) Blast Cells % (Manual) Nucleated RBC % Metamyelocytes Hypochromia Platelet Estimate Polychromasia Poikilocytosis Basophilic Stippling Anisocytosis Microcytosis Macrocytosis Spherocytes Target Cells Tear Drop Cells Stomatocytes ESR PT with INR INR PTT (Actin FS) D-Dimer Anticoagulation Therapy Puncture Site Patient Temperature ABG pH ABG pCO2 at Pt Temp ABG pO2 at Pt Temp ABG HCO3 ABG O2 Sat (Measured) ABG O2 Content ABG Base Excess Yousuf Test VBG pH POC VBG pCO2 POC VBG pO2 VBG HCO3 VBG O2 Sat ([place]) VBG Base Excess Patient On Oxygen O2 Delivery Device Oxygen Flow Rate Vent Mode Vent Rate Mechanical Rate PEEP Pressure Support Vent Sodium 139 Potassium 3.6 Chloride 108 H Carbon Dioxide 25 Anion Gap 7 L BUN 10.4 Creatinine 0.4 L Est GFR (CKD-EPI)AfAm 174.63 Est GFR (CKD-EPI)NonAf 150.67 POC Glucometer Random Glucose 116 H Lactic Acid Calcium 8.8 Phosphorus 5.3 H Magnesium 1.9 Ferritin Total Bilirubin Direct Bilirubin AST ALT Alkaline Phosphatase LD Total Creatine Kinase Creatine Kinase Index CK-MB (CK-2) Troponin I C-Reactive Protein B-Natriuretic Peptide Total Protein Albumin Triglycerides Lipase Interleukin 2 Interleukin 6 TSH Free T4 Urine Color Urine Appearance Urine pH Ur Specific [place] Urine Protein Urine Glucose (UA) Urine Ketones Urine Blood Urine Nitrite Urine Bilirubin Urine Urobilinogen Ur Leukocyte Esterase Urine WBC (Auto) Urine RBC (Auto) Urine Casts (Auto) U Pathogenic Cast Auto U Epithel Cells (Auto) Urine Crystals (Auto) Urine Bacteria (Auto) Urine Yeast (Auto) Stool Occult Blood Stool O & P Wet [place] Vancomycin Vancomycin Pre-Dose COVID-19 ([facility]) CMV DNA Qual PCR Hep A IgM Ab Confirm Hepatitis A Ab Total Hep Bs Antigen Hep Bs Antibody Hep B Core Total Ab Hep B Core IgM Ab Hepatitis Be Antibody Hepatitis Be Antigen Hep C Ab Diagnostic Strongyloides IgG Ab TB Test (QFT) Nil TB Test (QFT) Mitogen TB Test (QFT) Ag 1 TB Test (QFT) Ag 2 TB Test (QFT) TB Positive Criteria O & P Permanent Slide Blood Type Antibody Screen Home Medications Medication Instructions Recorded Albuterol 2.5/Ipratropium 0.5 1 amp NEB Q6H PRN amp 09/15/19 [Duoneb -] Amino Acids/Protein Hydrolys 30 ml GT BID@0800,1730 packet 09/15/19 [Prosource No Carb Liquid Pkt] Carvedilol [Coreg -] 6.25 mg PO BID tablet 09/15/19 Cholecalciferol (Vitamin D3) 800 unit NR DAILY tab 09/15/19 [Vitamin D -] Famotidine [Pepcid] 20 mg NGT BID oral.susp 09/15/19 Nystatin Powder [Nystop Powder -] 1 applic TP BID applic 09/15/19 Oxcarbazepine [Trileptal] 300 mg GT BID #250 ml 09/15/19 Phenobarbital Liquid - 60 mg NGT BID #1 ml MDD 120 09/15/19 [Phenobarbital Liquid 20 MG/5 ML -] Polyvinyl Alcohol [Artificial 1 drop OU Q12H PRN drops 09/15/19 Tears] Potassium Chloride [Potassium 40 meq GT BID cup 09/15/19 Chloride Oral Liquid] Quetiapine Fumarate [Seroquel -] 25 mg PO DAILY tablet 09/15/19 Topiramate [Topamax -] 200 mg GT TID tablet 09/15/19 Zinc Sulfate [Orazinc -] 220 mg GT BID capsule 09/15/19 levETIRAcetam [Keppra Oral 1,000 mg NGT BID cup 09/15/19 Solution -] ASSESSMENT AND PLAN: 39 M Acute Resp Failure 2/2 COVID-19 s/p trach/plasma/Actemra Sepsis 2/2 polymicrobial infections (fungemia/bacteremia/COVID) also found ESBL UTI Recurrent fever spikes Tachycardia Transaminitis Epilepsy Mental retardation Developmental delay Deconditioning Anemia s/p Trach/PEG, w/ PMV Plan: Off abx, afebrile, stable G tube site clean, keep HOB elevation, suctioning, aggressive oral care Accepted to [facility] for DC to SNF for continued rehab/care Cont. psych meds, Ativan PRN for anxiety/tachypnea Aggressive replacements of electrolytes Avoid further transaminitis causing drugs DVT ppx: Lovenox SC
== END 2019-09-16 16:32 | DRG 4 ==
LOC: JER 11:51 → JERBED 15:13 → JICU-2 16:53 → JICU 07-15 17:14 → J5S 08-08 18:29
PROVIDERS: ADMIT Internal Medicine
PROC: 0BH17EZ Insertion of Endotracheal Airway into Trachea, Via Natural or Artificial Opening (ICD-10-PCS; principal; 2019-06-22)
PROC: 5A1955Z Respiratory Ventilation, Greater than 96 Consecutive Hours (ICD-10-PCS; 2019-06-22)
PROC: 06HM33Z Insertion of Infusion Device into Right Femoral Vein, Percutaneous Approach (ICD-10-PCS; 2019-06-22)
PROC: 0DH67UZ Insertion of Feeding Device into Stomach, Via Natural or Artificial Opening (ICD-10-PCS; 2019-06-22)
PROC: 05H533Z Insertion of Infusion Device into Right Subclavian Vein, Percutaneous Approach (ICD-10-PCS; 2019-06-30)
PROC: 03HB33Z Insertion of Infusion Device into Right Radial Artery, Percutaneous Approach (ICD-10-PCS; 2019-07-03)
PROC: 03HC33Z Insertion of Infusion Device into Left Radial Artery, Percutaneous Approach (ICD-10-PCS; 2019-07-08)
PROC: 30233L1 Transfusion of Nonautologous Fresh Plasma into Peripheral Vein, Percutaneous Approach (ICD-10-PCS; 2019-07-25)
PROC: 0B113F4 Bypass Trachea to Cutaneous with Tracheostomy Device, Percutaneous Approach (ICD-10-PCS; 2019-08-07)
PROC: 0BJ08ZZ Inspection of Tracheobronchial Tree, Via Natural or Artificial Opening Endoscopic (ICD-10-PCS; 2019-08-07)
PROC: 3E0G36Z Introduction of Nutritional Substance into Upper GI, Percutaneous Approach (ICD-10-PCS; 2019-08-21)
PROC: 0DH63UZ Insertion of Feeding Device into Stomach, Percutaneous Approach (ICD-10-PCS; 2019-08-21)
PROC: BD12ZZZ Fluoroscopy of Stomach (ICD-10-PCS; 2019-08-21)
PROC: 0WHP33Z Insertion of Infusion Device into Gastrointestinal Tract, Percutaneous Approach (ICD-10-PCS; 2019-08-21)
DX: U07.1 COVID-19 (principal); J96.01 Acute respiratory failure with hypoxia; J96.02 Acute respiratory failure with hypercapnia; B49 Unspecified mycosis; G40.909 Epilepsy, unspecified, not intractable, without status epilepticus; E87.6 Hypokalemia; F79 Unspecified intellectual disabilities; A41.02 Sepsis due to Methicillin resistant Staphylococcus aureus; R65.21 Severe sepsis with septic shock; T85.618A Breakdown (mechanical) of other specified internal prosthetic devices, implants and grafts, initial encounter; E87.2 Acidosis; J15.4 Pneumonia due to other streptococci; H05.231 Hemorrhage of right orbit; J90 Pleural effusion, not elsewhere classified; E87.3 Alkalosis; J15.5 Pneumonia due to Escherichia coli; E87.0 Hyperosmolality and hypernatremia; K92.2 Gastrointestinal hemorrhage, unspecified; R94.5 Abnormal results of liver function studies; J32.3 Chronic sphenoidal sinusitis; R00.0 Tachycardia, unspecified; R50.9 Fever, unspecified; R13.10 Dysphagia, unspecified; K76.0 Fatty (change of) liver, not elsewhere classified; D72.829 Elevated white blood cell count, unspecified; F41.9 Anxiety disorder, unspecified
CPT/HCPCS: 36415; 36430; 36600; 49440; 70450-TC; 71045-TC-FY; 71250-TC; 71275-TC; 74018-TC-FY; 74176-TC; 74230-TC-FY; 76705-TC; 80048; 80053; 80076; 81003; 82248; 82272; 82550; 82553; 82728; 82803; 82962; 83520; 83605; 83615; 83690; 83735; 83880; 84100; 84132; 84439; 84443; 84478; 84484; 85025; 85027; 85379; 85610; 85651; 85730; 86140; 86480; 86682; 86704; 86706; 86707; 86708; 86709; 86803; 86850; 86900; 86901; 87040; 87070; 87077; 87086; 87106; 87116; 87177; 87186; 87205; 87206; 87209; 87324; 87328; 87329; 87340; 87449; 87496; 87556; 87899; 92611-GN; 93005; 93010; 93306-TC; 93970-TC; 94002; 94640; 97161-GP; 99291; G0480; J0131; J0637; J3262; P9017; Q9967; U0003

== ENCOUNTER 2019-12-17 21:00 | Inpatient (IN) | payer OTHER, SELFPAY ==
[2019-12-17 21:13] VITALS: BMI 23.6
[2019-12-17] MEDS ORDERED: LACTATED RINGERS SOLUTION 1000 ML INFUS.BAG IV ONE (22:41)
[2019-12-17] MEDS ORDERED: VANCOMYCIN 1,000 MG in DEXTROSE 5%-WATER - 250 ML IVPB ONE (22:44)
[2019-12-18 00:01] LABS: BASO % 0.6 % (0-2.0); EOS % 2.1 % (0-4.5); HEMATOCRIT 37.5 % (35.4-49); HEMOGLOBIN 11.6 GM/dL (11.7-16.9); LYMPH % 14.8 % (8-40); MCH 25.7 pg (25.7-33.7); MCHC 30.9 g/dl (32.0-35.9); MEAN CELL VOLUME 83.2 fl (80-96); MEAN PLT VOLUME 9.9 fl (7.5-11.1); MONO % 5.8 % (3.8-10.2); NEUT % 76.7 % (42.8-82.8); PLATELET COUNT 404 K/MM3 (134-434); RDW 16.4 % (11.9-15.9); WHITE BLOOD COUNT 16.3 K/mm3 (4.0-10.0)
[2019-12-18 00:07] LABS: INR 1.25 (0.83-1.09)
[2019-12-18 00:10] LABS: ACTIVATED PTT 33.9 SECONDS (25.2-36.5)
[2019-12-18 00:18] LABS: ALBUMIN 2.9 g/dl (3.4-5.0); BILIRUBIN,TOTAL 0.3 mg/dL (0.2-1); BLOOD UREA NITROGEN 20.6 mg/dL (7-18); CALCIUM 9.7 mg/dL (8.5-10.1); CREATININE 0.5 mg/dL (0.55-1.3); POTASSIUM 3.5 mmol/L (3.5-5.1); TOT PROT 8.4 g/dl (6.4-8.2)
[2019-12-18 00:55] LABS: EPI CELLS 17 /uL (0-25.1); HYALINE CASTS 2 /uL (0-3.1); URINE APPEARANCE CLEAR; URINE BACTERIA 171 /uL (0-1359); URINE BILIRUBIN NEGATIVE (NEGATIVE); URINE COLOR YELLOW; URINE GLUCOSE (UA) NEGATIVE (NEGATIVE); URINE KETONE NEGATIVE (NEGATIVE); URINE LEUK ESTERASE 1+ (NEGATIVE); URINE NITRITE NEGATIVE (NEGATIVE); URINE PROTEIN TRACE (NEGATIVE); URINE RBC 26 /uL (0-23.9); URINE WBC 87 /uL (0-25.8)
[2019-12-18] MEDS ORDERED: PIPERACILLIN/TAZOB 4.5 GM 4.5 GM in DEXTROSE 5%-WATER 100 ML IVPB ONE (02:32)
[2019-12-18] MEDS ORDERED: PIPERACILLIN/TAZOB 4.5 GM 4.5 GM/100 ML BAG IVPB ONE (02:38)
[2019-12-18] MEDS ORDERED: DEXTROSE 5%-0.45% SALINE 1,000 ML IV SCH (04:00)
[2019-12-18] MEDS ORDERED: CLINDAMYCIN 900 MG PREMIX IVPB 900 MG/50 ML BAG IVPB ONE ×2 (05:03→05:05)
[2019-12-18] MEDS ORDERED: PROPOFOL 20 ML ONE (06:02)
[2019-12-18] MEDS ORDERED: ROCURONIUM BROMIDE 50 MG/5 ML SYRINGE ONE (06:03)
[2019-12-18] MEDS ORDERED: ACETAMINOPHEN 1000 MG/100 ML VIAL (NON FORMULARY) IVPB ONE ×2 (06:34→08:50)
[2019-12-18 06:43] LABS: BASO % 0.3 % (0-2.0); EOS % 1.9 % (0-4.5); HEMATOCRIT 31.6 % (35.4-49); HEMOGLOBIN 9.8 GM/dL (11.7-16.9); LYMPH % 18.5 % (8-40); MCH 26.2 pg (25.7-33.7); MCHC 30.9 g/dl (32.0-35.9); MEAN CELL VOLUME 84.9 fl (80-96); MEAN PLT VOLUME 10.4 fl (7.5-11.1); MONO % 3.4 % (3.8-10.2); NEUT % 75.9 % (42.8-82.8); PLATELET COUNT 324 K/MM3 (134-434); RBC 3.72 M/mm3 (4.00-5.60); WHITE BLOOD COUNT 11.6 K/mm3 (4.0-10.0)
[2019-12-18] MEDS ORDERED: DEXAMETHASONE SOD PHOSPHATE 4 MG/1 ML VIAL ONE (07:16)
[2019-12-18 07:19] LABS: ALBUMIN 2.3 g/dl (3.4-5.0); BILIRUBIN,TOTAL 0.8 mg/dL (0.2-1); BLOOD UREA NITROGEN 14.2 mg/dL (7-18); CALCIUM 8.8 mg/dL (8.5-10.1); CREATININE 0.5 mg/dL (0.55-1.3); POTASSIUM 3.4 mmol/L (3.5-5.1); TOT PROT 6.6 g/dl (6.4-8.2)
[2019-12-18] MEDS ORDERED: NEOSTIGMINE METHYLSULFATE 0.5 MG/ML - 10 ML MDV ONE (07:29)
[2019-12-18] MEDS ORDERED: GLYCOPYRROLATE 0.2 MG/1 ML VIAL ONE (07:29)
[2019-12-18] MEDS ORDERED: ONDANSETRON 4 MG/2 ML VIAL IVPUSH PRN (07:57)
[2019-12-18] MEDS ORDERED: LACTATED RINGERS SOLUTION 1,000 ML IV SCH (08:00)
[2019-12-18] MEDS ORDERED: ACETAMINOPHEN INJECTION 100 ML IVPB ONE (08:05)
[2019-12-18] MEDS: LACTATED RINGERS SOLUTION 1,000 ML/1,000 ML INFUS.BAG IV SCH (08:40)
[2019-12-18] MEDS ORDERED: PIPERACILLIN/TAZOB 4.5 GM 4.5 GM in DEXTROSE 5%-WATER 100 ML IVPB SCH (09:00)
[2019-12-18] MEDS ORDERED: FAMOTIDINE 20 MG/50 ML IVPB 20 MG/50 ML MG IVPB SCH (10:00)
[2019-12-18] MEDS ORDERED: levETIRAcetam 500 MG/5 ML INJECTION VIAL IVPB SCH (10:00)
[2019-12-18] MEDS ORDERED: VANCOMYCIN 1,000 MG in DEXTROSE 5%-WATER - 250 ML IVPB SCH (12:00)
[2019-12-18] MEDS ORDERED: VANCOMYCIN 1 GRAM (PRE-DOCKED) 1,000 MG/250 ML BAG IVPB SCH (12:00)
[2019-12-18] MEDS: VANCOMYCIN 1 GRAM (PRE-DOCKED) 1,000 MG/250 ML BAG IVPB SCH (12:00)
[2019-12-18] MEDS ORDERED: FAMOTIDINE 20 MG/50 ML IVPB 20 MG/50 ML MG IVPB ONE (14:00)
[2019-12-18] MEDS: FAMOTIDINE 20 MG/50 ML IVPB 20 MG/50 ML MG IVPB SCH ×2 (14:00→22:02)
[2019-12-18] MEDS: levETIRAcetam 500 MG/5 ML INJECTION VIAL IVPB SCH ×2 (14:35→22:02)
[2019-12-18] MEDS ORDERED: SODIUM CHLORIDE 1,000 ML IV ONE (16:30)
[2019-12-18] MEDS: PIPERACILLIN/TAZOB 3.375 GM 3.375 GM in DEXTROSE 5%-WATER - 50 ML IVPB SCH (18:31)
[2019-12-18 19:41] LABS: HEMATOCRIT 27.1 % (35.4-49); HEMOGLOBIN 8.5 GM/dL (11.7-16.9); MCH 25.9 pg (25.7-33.7); MCHC 31.2 g/dl (32.0-35.9); MEAN PLT VOLUME 10.2 fl (7.5-11.1); PLATELET COUNT 281 K/MM3 (134-434); RBC 3.27 M/mm3 (4.00-5.60); WHITE BLOOD COUNT 11.2 K/mm3 (4.0-10.0)
[2019-12-18 19:58] LABS: POTASSIUM 3.5 mmol/L (3.5-5.1)
[2019-12-18 20:00] LABS: CALCIUM 8.3 mg/dL (8.5-10.1)
[2019-12-18 20:01] LABS: ALBUMIN 2.2 g/dl (3.4-5.0); BLOOD UREA NITROGEN 9.7 mg/dL (7-18)
[2019-12-18 20:04] LABS: CREATININE 0.3 mg/dL (0.55-1.3)
[2019-12-18 20:05] LABS: BILIRUBIN,TOTAL 0.3 mg/dL (0.2-1); TOT PROT 6.1 g/dl (6.4-8.2)
[2019-12-19] MEDS ORDERED: DEXTROSE 5%-WATER - 50 ML IVPB ONE ×3 (01:30→17:36)
[2019-12-19] MEDS ORDERED: PIPERACILLIN/TAZOBACTAM 3.375 GM VIAL IVPB ONE ×3 (01:30→17:36)
[2019-12-19] MEDS: PIPERACILLIN/TAZOB 3.375 GM 3.375 GM in DEXTROSE 5%-WATER - 50 ML IVPB SCH ×3 (01:46→18:01)
[2019-12-19] MEDS: VANCOMYCIN 1 GRAM (PRE-DOCKED) 1,000 MG/250 ML BAG IVPB SCH ×2 (02:00→13:00)
[2019-12-19] MEDS: LACTATED RINGERS SOLUTION 1,000 ML/1,000 ML INFUS.BAG IV SCH (07:47)
[2019-12-19] MEDS ORDERED: PIPERACILLIN/TAZOB 4.5 GM 4.5 GM in DEXTROSE 5%-WATER 100 ML IVPB SCH (09:00)
[2019-12-19] MEDS: FAMOTIDINE 20 MG/50 ML IVPB 20 MG/50 ML MG IVPB SCH ×2 (09:23→21:02)
[2019-12-19] MEDS: levETIRAcetam 500 MG/5 ML INJECTION VIAL IVPB SCH ×2 (10:43→21:02)
[2019-12-19] MEDS ORDERED: MORPHINE SULFATE 2 MG/ML VIAL IVPUSH ONE (11:25)
[2019-12-19] MEDS ORDERED: VANCOMYCIN 1,000 MG in DEXTROSE 5%-WATER - 250 ML IVPB SCH (12:00)
[2019-12-20] MEDS: VANCOMYCIN 1 GRAM (PRE-DOCKED) 1,000 MG/250 ML BAG IVPB SCH (00:15)
[2019-12-20] MEDS ORDERED: PIPERACILLIN/TAZOBACTAM 3.375 GM VIAL IVPB ONE ×2 (01:37→10:42)
[2019-12-20] MEDS ORDERED: DEXTROSE 5%-WATER - 50 ML IVPB ONE ×2 (01:37→10:42)
[2019-12-20] MEDS: PIPERACILLIN/TAZOB 3.375 GM 3.375 GM in DEXTROSE 5%-WATER - 50 ML IVPB SCH ×2 (02:03→10:55)
[2019-12-20 07:22] LABS: HEMATOCRIT 29.9 % (35.4-49); HEMOGLOBIN 9.6 GM/dL (11.7-16.9); MEAN CELL VOLUME 84.3 fl (80-96); MEAN PLT VOLUME 10.1 fl (7.5-11.1); PLATELET COUNT 277 K/MM3 (134-434); RBC 3.55 M/mm3 (4.00-5.60); RDW 16.1 % (11.9-15.9); WHITE BLOOD COUNT 7.9 K/mm3 (4.0-10.0)
[2019-12-20 07:47] LABS: POTASSIUM 3.1 mmol/L (3.5-5.1)
[2019-12-20 07:57] LABS: ALBUMIN 2.2 g/dl (3.4-5.0)
[2019-12-20 08:00] LABS: CREATININE 0.5 mg/dL (0.55-1.3)
[2019-12-20 08:02] LABS: BILIRUBIN,TOTAL 0.6 mg/dL (0.2-1); TOT PROT 6.4 g/dl (6.4-8.2)
[2019-12-20] MEDS ORDERED: PT OWN MED DRAWER 7, Y5N ONE (10:41)
[2019-12-20] MEDS: LACTATED RINGERS SOLUTION 1,000 ML/1,000 ML INFUS.BAG IV SCH ×2 (10:51→17:13)
[2019-12-20] MEDS: levETIRAcetam 500 MG/5 ML INJECTION VIAL IVPB SCH ×2 (10:52→23:59)
[2019-12-20] MEDS: FAMOTIDINE 20 MG/50 ML IVPB 20 MG/50 ML MG IVPB SCH ×2 (10:55→23:59)
[2019-12-20] MEDS: KCL 10 MEQ IVPB 10 MEQ/100 ML INFUS.BAG IVPB SCH ×2 (10:58→12:17)
[2019-12-21 08:03] LABS: HEMATOCRIT 31.1 % (35.4-49); HEMOGLOBIN 9.9 GM/dL (11.7-16.9); MCH 26.9 pg (25.7-33.7); MCHC 31.7 g/dl (32.0-35.9); MEAN CELL VOLUME 84.8 fl (80-96); MEAN PLT VOLUME 10.2 fl (7.5-11.1); PLATELET COUNT 296 K/MM3 (134-434); RBC 3.66 M/mm3 (4.00-5.60); RDW 16.2 % (11.9-15.9)
[2019-12-21 08:22] LABS: POTASSIUM 3.4 mmol/L (3.5-5.1)
[2019-12-21 08:26] LABS: ALBUMIN 2.4 g/dl (3.4-5.0)
[2019-12-21 08:27] LABS: BLOOD UREA NITROGEN 4.5 mg/dL (7-18)
[2019-12-21 08:30] LABS: CREATININE 0.4 mg/dL (0.55-1.3)
[2019-12-21 08:31] LABS: BILIRUBIN,TOTAL 0.3 mg/dL (0.2-1)
[2019-12-21 08:32] LABS: TOT PROT 6.6 g/dl (6.4-8.2)
[2019-12-21] MEDS: levETIRAcetam 500 MG/5 ML INJECTION VIAL IVPB SCH ×2 (09:12→21:09)
[2019-12-21] MEDS: LACTATED RINGERS SOLUTION 1,000 ML/1,000 ML INFUS.BAG IV SCH ×2 (09:12→21:09)
[2019-12-21] MEDS: FAMOTIDINE 20 MG/50 ML IVPB 20 MG/50 ML MG IVPB SCH ×2 (10:05→21:09)
[2019-12-21] MEDS: AMINO ACIDS 4.25%/D5W 1,000 ML IV SCH ×2 (12:25→20:28)
[2019-12-21] MEDS ORDERED: ACETAMINOPHEN 1000 MG/100 ML VIAL (NON FORMULARY) IVPB ONE (13:00)
[2019-12-21] MEDS ORDERED: KCL 10 MEQ IVPB 10 MEQ/100 ML INFUS.BAG IVPB SCH (14:15)
[2019-12-22] MEDS ORDERED: PT OWN MED DRAWER 7, Y5N ONE (01:47)
[2019-12-22] MEDS: AMINO ACIDS 4.25%/D5W 1,000 ML IV SCH ×4 (02:50→21:32)
[2019-12-22] MEDS: LACTATED RINGERS SOLUTION 1,000 ML/1,000 ML INFUS.BAG IV SCH (08:09)
[2019-12-22 09:10] LABS: HEMATOCRIT 31.5 % (35.4-49); HEMOGLOBIN 9.6 GM/dL (11.7-16.9); MCH 25.6 pg (25.7-33.7); MCHC 30.5 g/dl (32.0-35.9); MEAN CELL VOLUME 83.9 fl (80-96); MEAN PLT VOLUME 9.9 fl (7.5-11.1); PLATELET COUNT 268 K/MM3 (134-434); RBC 3.75 M/mm3 (4.00-5.60); RDW 16.1 % (11.9-15.9)
[2019-12-22] MEDS: FAMOTIDINE 20 MG/50 ML IVPB 20 MG/50 ML MG IVPB SCH ×2 (09:16→21:34)
[2019-12-22 09:31] LABS: ALBUMIN 2.2 g/dl (3.4-5.0); CALCIUM 8.5 mg/dL (8.5-10.1); MAGNESIUM 2.1 mg/dL (1.8-2.4)
[2019-12-22 09:35] LABS: CREATININE 0.4 mg/dL (0.55-1.3)
[2019-12-22 09:36] LABS: BILIRUBIN,TOTAL 0.2 mg/dL (0.2-1); TOT PROT 6.3 g/dl (6.4-8.2)
[2019-12-22] MEDS: levETIRAcetam 500 MG/5 ML INJECTION VIAL IVPB SCH ×2 (09:54→21:34)
[2019-12-22] MEDS: KCL 10 MEQ IVPB 10 MEQ/100 ML INFUS.BAG IVPB SCH ×3 (13:40→15:56)
[2019-12-22] MEDS ORDERED: ACETAMINOPHEN 1000 MG/100 ML VIAL (NON FORMULARY) IVPB PRN (15:19)
[2019-12-23 06:53] LABS: HEMATOCRIT 32.6 % (35.4-49); HEMOGLOBIN 10.1 GM/dL (11.7-16.9); MEAN CELL VOLUME 83.8 fl (80-96); MEAN PLT VOLUME 9.9 fl (7.5-11.1); PLATELET COUNT 248 K/MM3 (134-434); RBC 3.89 M/mm3 (4.00-5.60); RDW 16.4 % (11.9-15.9); WHITE BLOOD COUNT 9.9 K/mm3 (4.0-10.0)
[2019-12-23 07:13] LABS: POTASSIUM 3.2 mmol/L (3.5-5.1)
[2019-12-23 07:21] LABS: ALBUMIN 2.4 g/dl (3.4-5.0); CALCIUM 9.1 mg/dL (8.5-10.1)
[2019-12-23 07:22] LABS: BLOOD UREA NITROGEN 9.4 mg/dL (7-18)
[2019-12-23 07:25] LABS: CREATININE 0.4 mg/dL (0.55-1.3)
[2019-12-23 07:26] LABS: BILIRUBIN,TOTAL 0.3 mg/dL (0.2-1); TOT PROT 6.4 g/dl (6.4-8.2)
[2019-12-23] MEDS ORDERED: POTASSIUM CHLORIDE ORAL LIQUID 20 MEQ/15 ML PO ONE (08:01)
[2019-12-23] MEDS: AMINO ACIDS 4.25%/D5W 1,000 ML IV SCH (09:52)
[2019-12-23] MEDS: levETIRAcetam 500 MG/5 ML INJECTION VIAL IVPB SCH ×2 (10:03→21:54)
[2019-12-23] MEDS: COLLAGENASE CLOSTRIDIUM HIST. 30 GRAMS TUBE TP SCH (10:15)
[2019-12-23] MEDS: FAMOTIDINE 20 MG/50 ML IVPB 20 MG/50 ML MG IVPB SCH ×2 (10:26→21:32)
[2019-12-23] MEDS: KCL 10 MEQ IVPB 10 MEQ/100 ML INFUS.BAG IVPB SCH ×3 (10:56→13:23)
[2019-12-23] MEDS: SODIUM HYPOCHLORITE 0.25%- 473 ML BULK BOTTLE TP SCH (13:49)
[2019-12-24 07:44] LABS: POTASSIUM 3.8 mmol/L (3.5-5.1)
[2019-12-24 07:45] LABS: HEMATOCRIT 30.6 % (35.4-49); HEMOGLOBIN 9.8 GM/dL (11.7-16.9); MCHC 31.9 g/dl (32.0-35.9); MEAN CELL VOLUME 84.6 fl (80-96); MEAN PLT VOLUME 10.4 fl (7.5-11.1); PLATELET COUNT 243 K/MM3 (134-434); RBC 3.61 M/mm3 (4.00-5.60); RDW 16.2 % (11.9-15.9); WHITE BLOOD COUNT 8.5 K/mm3 (4.0-10.0)
[2019-12-24 07:58] LABS: BLOOD UREA NITROGEN 8.5 mg/dL (7-18)
[2019-12-24 07:59] LABS: CALCIUM 8.6 mg/dL (8.5-10.1); MAGNESIUM 1.9 mg/dL (1.8-2.4)
[2019-12-24 08:01] LABS: CREATININE 0.4 mg/dL (0.55-1.3)
[2019-12-24 08:02] LABS: PHOSPHOROUS 3.4 mg/dL (2.5-4.9)
[2019-12-24] MEDS: levETIRAcetam 500 MG/5 ML INJECTION VIAL IVPB SCH (10:11)
[2019-12-24] MEDS: SODIUM HYPOCHLORITE 0.25%- 473 ML BULK BOTTLE TP SCH (10:11)
[2019-12-24] MEDS: COLLAGENASE CLOSTRIDIUM HIST. 30 GRAMS TUBE TP SCH (10:12)
[2019-12-24] MEDS: FAMOTIDINE 20 MG/50 ML IVPB 20 MG/50 ML MG IVPB SCH (10:39)
[2019-12-24 13:37] VITALS: BP 113/68; PULSE 89; TEMP 98.7
[2019-12-25] MEDS ORDERED: AMINO ACIDS/PROTEIN HYDROLYS 30 ML LIQUID.PKT PO SCH (08:00)
[2019-12-25] MEDS ORDERED: MULTIVIT-MINERALS ORAL LIQUID PO SCH (10:00)
== END 2019-12-24 16:15 | DRG 229 ==
LOC: JER 21:00 → JERBED 12-18 03:55 → J4S 12-18 18:10
PROVIDERS: ADMIT Internal Medicine; ATTEND Family Medicine
PROC: 0JB80ZZ Excision of Abdomen Subcutaneous Tissue and Fascia, Open Approach (ICD-10-PCS; 2019-12-18)
PROC: 0WJF0ZZ Inspection of Abdominal Wall, Open Approach (ICD-10-PCS; 2019-12-18)
PROC: 2W15X6Z Compression of Back using Pressure Dressing (ICD-10-PCS; principal; 2019-12-18 07:00)
DX: K94.22 Gastrostomy infection (principal); A41.9 Sepsis, unspecified organism; T85.528A Displacement of other gastrointestinal prosthetic devices, implants and grafts, initial encounter; I10 Essential (primary) hypertension; J44.9 Chronic obstructive pulmonary disease, unspecified; K21.9 Gastro-esophageal reflux disease without esophagitis; G40.909 Epilepsy, unspecified, not intractable, without status epilepticus; L03.311 Cellulitis of abdominal wall; L02.211 Cutaneous abscess of abdominal wall; K94.23 Gastrostomy malfunction; L89.154 Pressure ulcer of sacral region, stage 4; M72.6 Necrotizing fasciitis; F78 Other intellectual disabilities; Z93.0 Tracheostomy status; I96 Gangrene, not elsewhere classified; J98.11 Atelectasis; Z86.19 Personal history of other infectious and parasitic diseases
CPT/HCPCS: 36415; 71045-TC-FY; 74177-TC; 74230-TC-FY; 80048; 80053; 81003; 83605; 83735; 84100; 84484; 85025; 85027; 85610; 85730; 86850; 86900; 86901; 87040; 87086; 88304-TC; 92611-GN; 93005; 93010; 94760; 99285-25; C9803; J0131; U0003

== ENCOUNTER 2020-08-11 20:40 | Inpatient (IN) | payer OTHER ==
[2020-08-11] MEDS ORDERED: SODIUM CHLORIDE 1,000 ML IV STA (21:30)
[2020-08-11] MEDS ORDERED: levETIRAcetam 500 MG/5 ML INJECTION VIAL IVPB ONE ×2 (21:31→21:36)
[2020-08-11] MEDS ORDERED: LORazepam 2 MG/ML SDV VIAL IVPUSH ONE (22:15)
[2020-08-11] MEDS ORDERED: LORazepam 2 MG/ML SDV VIAL ONE (22:16)
[2020-08-11 22:30] LABS: BASO % 0.9 % (0-2.0); EOS % 1.3 % (0-4.5); HEMATOCRIT 42.1 % (35.4-49); LYMPH % 21.1 % (8-40); MCH 26.8 pg (25.7-33.7); MCHC 33.2 g/dl (32.0-35.9); MEAN CELL VOLUME 80.7 fl (80-96); MEAN PLT VOLUME 8.8 fl (7.5-11.1); MONO % 5.4 % (3.8-10.2); NEUT % 71.3 % (42.8-82.8); PLATELET COUNT 256 K/MM3 (134-434); RBC 5.22 M/mm3 (4.00-5.60); RDW 19.4 % (11.9-15.9); WHITE BLOOD COUNT 11.5 K/mm3 (4.0-10.0)
[2020-08-11 22:48] LABS: CHLORIDE 108 mmol/L (98-107); SODIUM 139 mmol/L (136-145)
[2020-08-11 22:51] LABS: ALBUMIN 3.7 g/dl (3.4-5.0); ANION GAP 10 MMOL/L (8-16); BLOOD UREA NITROGEN 7.9 mg/dL (7-18); CALCIUM 8.6 mg/dL (8.5-10.1); CO2 21 mmol/L (21-32); GLUCOSE,RANDOM 103 mg/dL (74-106)
[2020-08-11 22:54] LABS: CREATININE 0.5 mg/dL (0.55-1.3); SGOT/AST 16 U/L (15-37); SGPT/ALT 29 U/L (13-61)
[2020-08-11 22:56] LABS: BILIRUBIN,TOTAL 0.2 mg/dL (0.2-1); TOT PROT 7.7 g/dl (6.4-8.2)
[2020-08-11 22:57] LABS: ALK PHOS 150 U/L (45-117)
[2020-08-12 01:39] LABS: EPI CELLS 12 /uL (0-25.1); HYALINE CASTS 0 /uL (0-3.1); URINE APPEARANCE CLEAR; URINE BACTERIA 3118 /uL (0-1359); URINE BILIRUBIN NEGATIVE (NEGATIVE); URINE COLOR YELLOW; URINE GLUCOSE (UA) NEGATIVE (NEGATIVE); URINE KETONE NEGATIVE (NEGATIVE); URINE LEUK ESTERASE 1+ (NEGATIVE); URINE NITRITE POSITIVE (NEGATIVE); URINE PROTEIN NEGATIVE (NEGATIVE); URINE RBC 336 /uL (0-23.9); URINE UROBILINOGEN 0.2 mg/dL (0.2-1.0); URINE WBC 52 /uL (0-25.8)
[2020-08-12] MEDS ORDERED: CEFTRIAXONE 1,000 MG in DEXTROSE 5%-WATER - 50 ML IVPB ONE (02:07)
[2020-08-12] MEDS ORDERED: CEFTRIAXONE 1 GM/50 ML BAG ONE (02:20)
[2020-08-12] MEDS ORDERED: ACETAMINOPHEN 1000 MG/100 ML VIAL (NON FORMULARY) IVPB PRN ×2 (03:55→16:13)
[2020-08-12] MEDS ORDERED: AZITHROMYCIN IVPB 500 MG/250 ML BAG IVPB ONE ×2 (04:00→04:01)
[2020-08-12] MEDS ORDERED: ACETAMINOPHEN INJECTION 100 ML IVPB ONE (04:00)
[2020-08-12] MEDS ORDERED: LORazepam 2 MG/ML SDV VIAL IVPUSH STA ×2 (04:20→05:07)
[2020-08-12] MEDS ORDERED: LORazepam 2 MG/ML SDV VIAL ONE ×2 (04:22→05:43)
[2020-08-12 04:41] LABS: LACTIC ACID 2.8 mmol/L (0.4-2.0)
[2020-08-12] MEDS ORDERED: SODIUM CHLORIDE 500 ML IV STA (04:51)
[2020-08-12] MEDS ORDERED: SODIUM CHLORIDE 1,000 ML IV STA (06:06)
[2020-08-12 06:34] LABS: HEMATOCRIT 44.4 % (35.4-49); HEMOGLOBIN 14.7 GM/dL (11.7-16.9); MCH 27.6 pg (25.7-33.7); MCHC 33.1 g/dl (32.0-35.9); MEAN CELL VOLUME 83.5 fl (80-96); MEAN PLT VOLUME 8.5 fl (7.5-11.1); PLATELET COUNT 177 K/MM3 (134-434); RBC 5.32 M/mm3 (4.00-5.60); RDW 19.4 % (11.9-15.9); WHITE BLOOD COUNT 7.1 K/mm3 (4.0-10.0)
[2020-08-12 06:42] LABS: CALCIUM 8.3 mg/dL (8.5-10.1)
[2020-08-12 06:43] LABS: ALBUMIN 3.3 g/dl (3.4-5.0); BLOOD UREA NITROGEN 7.5 mg/dL (7-18)
[2020-08-12 06:47] LABS: BILIRUBIN,TOTAL 0.4 mg/dL (0.2-1)
[2020-08-12 06:49] LABS: CREATININE 0.6 mg/dL (0.55-1.3)
[2020-08-12] MEDS ORDERED: IBUPROFEN 800 MG/8 ML IJ IVPB ONE ×2 (07:01→08:16)
[2020-08-12] MEDS ORDERED: levETIRAcetam 500 MG/5 ML INJECTION VIAL IVPB SCH (10:00)
[2020-08-12 10:01] LABS: LACTIC ACID 4.2 mmol/L (0.4-2.0)
[2020-08-12] MEDS ORDERED: levETIRAcetam 500 MG/5 ML INJECTION VIAL IVPB ONE (10:08)
[2020-08-12 10:34] LABS: ANISOCYTOSIS 0; MACROCYTOSIS 0; PLATELET ESTIMATE NORMAL
[2020-08-12] MEDS ORDERED: POTASSIUM CHLORIDE TABS 20 MEQ TABLET.ER (FP) PO ONE ×2 (11:00→11:04)
[2020-08-12] MEDS ORDERED: PIPERACILLIN/TAZOB 4.5 GM 4.5 GM in DEXTROSE 5%-WATER 100 ML IVPB SCH (11:45)
[2020-08-12] MEDS ORDERED: SODIUM CHLORIDE 1,000 ML IV SCH ×2 (12:00→16:13)
[2020-08-12] MEDS ORDERED: PIPERACILLIN/TAZOB 4.5 GM 4.5 GM/100 ML BAG IVPB ONE (12:01)
[2020-08-12] MEDS ORDERED: ALBUTEROL SO4 2.5/IPRATROPIUM 0.5 INH SOL 3 ML VIAL.NEB. NEB ONE ×2 (14:30→15:11)
[2020-08-12] MEDS ORDERED: OXcarbazepine 300 MG TABLET (UD) PO SCH (15:23)
[2020-08-12] MEDS ORDERED: TOPIRAMATE 200 MG TABLET PO SCH (15:30)
[2020-08-12] MEDS ORDERED: DEXTROSE 5%-WATER 100 ML IVPB ONE (16:28)
[2020-08-12] MEDS ORDERED: PIPERACILLIN/TAZOBACTAM 4.5 GM VIAL IVPB ONE (16:28)
[2020-08-12] MEDS: PHENobarbital 30 MG TABLET PO SCH ×2 (16:33→22:05)
[2020-08-12] MEDS: PIPERACILLIN/TAZOB 4.5 GM 4.5 GM in DEXTROSE 5%-WATER 100 ML IVPB SCH (17:16)
[2020-08-12] MEDS: LACTATED RINGERS SOLUTION 1,000 ML/1,000 ML INFUS.BAG IV SCH (18:14)
[2020-08-12] MEDS ORDERED: LORazepam 2 MG/ML SDV VIAL IVPUSH PRN (19:55)
[2020-08-12] MEDS ORDERED: ACETAMINOPHEN 500 MG TABLET (FP) PO PRN (20:47)
[2020-08-12] MEDS ORDERED: PT OWN MED DRAWER 7, Y5N ONE ×2 (21:57→22:08)
[2020-08-12] MEDS ORDERED: levETIRAcetam 500 MG TABLET (FP) PO SCH (22:00)
[2020-08-12] MEDS: levETIRAcetam 500 MG TABLET (FP) PO SCH (22:04)
[2020-08-12] MEDS: MUPIROCIN 2% TOPICAL OINTMENT FOR DECOLONIZATION NS SCH (22:04)
[2020-08-12] MEDS: OXcarbazepine 300 MG TABLET (UD) PO SCH (22:05)
[2020-08-12] MEDS: TOPIRAMATE 200 MG TABLET PO SCH (22:09)
[2020-08-12] MEDS: CHLORHEXIDINE GLUCONATE 4% CLEANSER FOR DECOLONIZATION TP SCH (22:09)
[2020-08-13] MEDS ORDERED: PIPERACILLIN/TAZOBACTAM 4.5 GM VIAL IVPB ONE ×2 (01:33→08:57)
[2020-08-13] MEDS ORDERED: DEXTROSE 5%-WATER 100 ML IVPB ONE ×2 (01:33→08:57)
[2020-08-13] MEDS: PIPERACILLIN/TAZOB 4.5 GM 4.5 GM in DEXTROSE 5%-WATER 100 ML IVPB SCH ×2 (01:35→09:04)
[2020-08-13] MEDS: LACTATED RINGERS SOLUTION 1,000 ML/1,000 ML INFUS.BAG IV SCH (01:35)
[2020-08-13 08:34] LABS: BASO % 0.4 % (0-2.0); EOS % 0.3 % (0-4.5); HEMATOCRIT 38.1 % (35.4-49); HEMOGLOBIN 12.5 GM/dL (11.7-16.9); LYMPH % 9.7 % (8-40); MCH 26.5 pg (25.7-33.7); MCHC 32.8 g/dl (32.0-35.9); MEAN PLT VOLUME 8.8 fl (7.5-11.1); MONO % 6.4 % (3.8-10.2); NEUT % 83.2 % (42.8-82.8); PLATELET COUNT 158 K/MM3 (134-434); RDW 19.9 % (11.9-15.9); WHITE BLOOD COUNT 19.7 K/mm3 (4.0-10.0)
[2020-08-13 08:54] LABS: CALCIUM 8.5 mg/dL (8.5-10.1)
[2020-08-13] MEDS ORDERED: levETIRAcetam 250 MG TABLET PO ONE (08:54)
[2020-08-13 08:55] LABS: BLOOD UREA NITROGEN 6.7 mg/dL (7-18); MAGNESIUM 1.7 mg/dL (1.8-2.4)
[2020-08-13] MEDS ORDERED: PT OWN MED DRAWER 7, Y5N ONE ×4 (08:56→21:22)
[2020-08-13 08:58] LABS: CREATININE 0.4 mg/dL (0.55-1.3)
[2020-08-13] MEDS: OXcarbazepine 300 MG TABLET (UD) PO SCH ×2 (09:03→21:28)
[2020-08-13] MEDS: PHENobarbital 30 MG TABLET PO SCH ×2 (09:03→21:27)
[2020-08-13] MEDS: levETIRAcetam 500 MG TABLET (FP) PO SCH ×2 (09:03→21:26)
[2020-08-13] MEDS: TOPIRAMATE 200 MG TABLET PO SCH ×2 (09:04→21:28)
[2020-08-13 09:23] LABS: INR 1.34 (0.83-1.09); PROTHROMBIN TIME (PATIENT) 16.4 SEC (9.7-13.0)
[2020-08-13] MEDS ORDERED: KCL 10 MEQ IVPB 10 MEQ/100 ML INFUS.BAG IVPB SCH (09:30)
[2020-08-13] MEDS ORDERED: MAGNESIUM SULFATE IN WATER 2 GM/50 ML IVPB IVPB ONE (09:45)
[2020-08-13] MEDS: VANCOMYCIN 1 GRAM (PRE-DOCKED) 1,000 MG/250 ML BAG IVPB SCH ×2 (09:45→21:26)
[2020-08-13] MEDS ORDERED: AZITHROMYCIN IVPB 500 MG/250 ML BAG IVPB SCH (10:00)
[2020-08-13] MEDS ORDERED: CEFTRIAXONE 1 GM in DEXTROSE 5%-WATER - 50 ML IVPB SCH (10:00)
[2020-08-13] MEDS: AMPICILLIN NA/SULBACTAM NA 3 GM in SODIUM CHLORIDE 100 ML IVPB SCH ×2 (16:34→20:31)
[2020-08-13] MEDS: MUPIROCIN 2% TOPICAL OINTMENT FOR DECOLONIZATION NS SCH ×2 (16:45→21:29)
[2020-08-13] MEDS: CHLORHEXIDINE GLUCONATE 4% CLEANSER FOR DECOLONIZATION TP SCH (21:27)
[2020-08-14] MEDS ORDERED: PT OWN MED DRAWER 7, Y5N ONE ×5 (01:45→22:00)
[2020-08-14] MEDS: AMPICILLIN NA/SULBACTAM NA 3 GM in SODIUM CHLORIDE 100 ML IVPB SCH ×4 (02:00→22:01)
[2020-08-14 08:46] LABS: BASO % 0.6 % (0-2.0); HEMOGLOBIN 12.1 GM/dL (11.7-16.9); LYMPH % 18.1 % (8-40); MCHC 31.8 g/dl (32.0-35.9); MEAN CELL VOLUME 81.7 fl (80-96); MEAN PLT VOLUME 8.9 fl (7.5-11.1); MONO % 6.4 % (3.8-10.2); NEUT % 72.9 % (42.8-82.8); PLATELET COUNT 151 K/MM3 (134-434); RBC 4.65 M/mm3 (4.00-5.60); RDW 19.7 % (11.9-15.9)
[2020-08-14] MEDS: VANCOMYCIN 1 GRAM (PRE-DOCKED) 1,000 MG/250 ML BAG IVPB SCH ×2 (08:57→21:56)
[2020-08-14] MEDS: PHENobarbital 30 MG TABLET PO SCH ×2 (09:01→21:57)
[2020-08-14] MEDS: levETIRAcetam 500 MG TABLET (FP) PO SCH ×2 (09:01→21:53)
[2020-08-14] MEDS: TOPIRAMATE 200 MG TABLET PO SCH ×2 (09:02→22:40)
[2020-08-14] MEDS: OXcarbazepine 300 MG TABLET (UD) PO SCH ×2 (09:03→21:56)
[2020-08-14] MEDS: MUPIROCIN 2% TOPICAL OINTMENT FOR DECOLONIZATION NS SCH ×2 (09:05→21:58)
[2020-08-14 09:08] LABS: CALCIUM 8.4 mg/dL (8.5-10.1)
[2020-08-14 09:09] LABS: ALBUMIN 2.7 g/dl (3.4-5.0); BLOOD UREA NITROGEN 5.2 mg/dL (7-18); MAGNESIUM 2.1 mg/dL (1.8-2.4)
[2020-08-14 09:12] LABS: CREATININE 0.3 mg/dL (0.55-1.3); PHOSPHOROUS 2.5 mg/dL (2.5-4.9)
[2020-08-14 09:13] LABS: BILIRUBIN,TOTAL 0.4 mg/dL (0.2-1)
[2020-08-14] MEDS ORDERED: KCL 10 MEQ IVPB 10 MEQ/100 ML INFUS.BAG IVPB SCH (09:30)
[2020-08-14] MEDS ORDERED: POTASSIUM CHLORIDE ORAL LIQUID 20 MEQ/15 ML PO ONE (11:10)
[2020-08-14] MEDS: CHLORHEXIDINE GLUCONATE 4% CLEANSER FOR DECOLONIZATION TP SCH (21:58)
[2020-08-15] MEDS: AMPICILLIN NA/SULBACTAM NA 3 GM in SODIUM CHLORIDE 100 ML IVPB SCH ×2 (03:00→09:51)
[2020-08-15 07:21] LABS: ALBUMIN 2.7 g/dl (3.4-5.0); BLOOD UREA NITROGEN 6.7 mg/dL (7-18); CALCIUM 8.3 mg/dL (8.5-10.1)
[2020-08-15 07:22] LABS: BASO % 0.7 % (0-2.0); EOS % 4.2 % (0-4.5); HEMATOCRIT 37.5 % (35.4-49); HEMOGLOBIN 11.9 GM/dL (11.7-16.9); LYMPH % 33.9 % (8-40); MAGNESIUM 1.9 mg/dL (1.8-2.4); MCH 26.2 pg (25.7-33.7); MCHC 31.7 g/dl (32.0-35.9); MEAN CELL VOLUME 82.8 fl (80-96); MONO % 7.2 % (3.8-10.2); PLATELET COUNT 139 K/MM3 (134-434); RBC 4.53 M/mm3 (4.00-5.60); RDW 19.9 % (11.9-15.9); WHITE BLOOD COUNT 9.7 K/mm3 (4.0-10.0)
[2020-08-15 07:25] LABS: CREATININE 0.4 mg/dL (0.55-1.3); PHOSPHOROUS 3.6 mg/dL (2.5-4.9)
[2020-08-15 07:26] LABS: BILIRUBIN,TOTAL 0.3 mg/dL (0.2-1)
[2020-08-15] MEDS: MUPIROCIN 2% TOPICAL OINTMENT FOR DECOLONIZATION NS SCH ×2 (09:47→21:30)
[2020-08-15] MEDS: levETIRAcetam 500 MG TABLET (FP) PO SCH ×2 (09:48→21:29)
[2020-08-15] MEDS: OXcarbazepine 300 MG TABLET (UD) PO SCH ×2 (09:48→21:31)
[2020-08-15] MEDS: PHENobarbital 30 MG TABLET PO SCH ×2 (09:48→21:30)
[2020-08-15] MEDS ORDERED: PT OWN MED DRAWER 7, Y5N ONE ×4 (09:50→21:23)
[2020-08-15] MEDS: TOPIRAMATE 200 MG TABLET PO SCH ×2 (09:51→21:30)
[2020-08-15] MEDS: VANCOMYCIN 1 GRAM (PRE-DOCKED) 1,000 MG/250 ML BAG IVPB SCH (10:07)
[2020-08-15] MEDS ORDERED: DEXTROSE 5%-0.45% SALINE 1,000 ML IV SCH (11:00)
[2020-08-15] MEDS: AMPICILLIN - 2 GM in SODIUM CHLORIDE 100 ML IVPB SCH ×4 (11:18→21:28)
[2020-08-15] MEDS: DEXTROSE 5% IVPB SCH (12:50)
[2020-08-15] MEDS: WATER IVPB SCH (12:50)
[2020-08-15] MEDS: GENTAMICIN IVPB SCH (12:50)
[2020-08-15] MEDS: DEXTROSE 5%-0.45% SALINE 1,000 ML IV SCH (13:07)
[2020-08-15] MEDS: CHLORHEXIDINE GLUCONATE 4% CLEANSER FOR DECOLONIZATION TP SCH (21:30)
[2020-08-16] MEDS: AMPICILLIN - 2 GM in SODIUM CHLORIDE 100 ML IVPB SCH ×6 (02:25→21:42)
[2020-08-16] MEDS: DEXTROSE 5%-0.45% SALINE 1,000 ML IV SCH ×2 (02:36→13:50)
[2020-08-16] MEDS: WATER IVPB SCH ×4 (02:36→18:43)
[2020-08-16] MEDS: DEXTROSE 5% IVPB SCH ×4 (02:36→18:43)
[2020-08-16] MEDS: GENTAMICIN IVPB SCH ×4 (02:36→18:43)
[2020-08-16 06:30] LABS: BASO % 0.5 % (0-2.0); EOS % 5.1 % (0-4.5); HEMATOCRIT 40.2 % (35.4-49); LYMPH % 33.8 % (8-40); MCH 26.4 pg (25.7-33.7); MCHC 32.2 g/dl (32.0-35.9); MEAN CELL VOLUME 81.9 fl (80-96); MEAN PLT VOLUME 8.7 fl (7.5-11.1); MONO % 8.3 % (3.8-10.2); NEUT % 52.3 % (42.8-82.8); PLATELET COUNT 149 10^3/uL (134-434); RBC 4.91 M/mm3 (4.00-5.60); RDW 19.2 % (11.9-15.9); WHITE BLOOD COUNT 8.1 K/mm3 (4.0-10.0)
[2020-08-16 06:50] LABS: CALCIUM 8.3 mg/dL (8.5-10.1)
[2020-08-16 06:51] LABS: ALBUMIN 2.8 g/dl (3.4-5.0); BLOOD UREA NITROGEN 5.1 mg/dL (7-18); MAGNESIUM 1.9 mg/dL (1.8-2.4)
[2020-08-16 06:54] LABS: CREATININE 0.4 mg/dL (0.55-1.3); PHOSPHOROUS 3.2 mg/dL (2.5-4.9)
[2020-08-16 06:55] LABS: BILIRUBIN,TOTAL 0.3 mg/dL (0.2-1)
[2020-08-16 06:56] LABS: TOT PROT 6.4 g/dl (6.4-8.2)
[2020-08-16] MEDS ORDERED: PT OWN MED DRAWER 7, Y5N ONE ×2 (08:54→15:57)
[2020-08-16] MEDS: MUPIROCIN 2% TOPICAL OINTMENT FOR DECOLONIZATION NS SCH (09:08)
[2020-08-16] MEDS: OXcarbazepine 300 MG TABLET (UD) PO SCH ×2 (09:09→21:42)
[2020-08-16] MEDS: PHENobarbital 30 MG TABLET PO SCH ×2 (09:09→21:41)
[2020-08-16] MEDS: levETIRAcetam 500 MG TABLET (FP) PO SCH ×2 (09:09→21:41)
[2020-08-16] MEDS: TOPIRAMATE 200 MG TABLET PO SCH ×2 (09:10→21:42)
[2020-08-16 13:03] VITALS: BMI 25.9
[2020-08-16] MEDS ORDERED: AMPICILLIN SODIUM 2 GM VIAL ONE ×2 (13:32→21:34)
[2020-08-16] MEDS ORDERED: SODIUM CHLORIDE 100 ML IVPB ONE ×2 (13:33→21:34)
[2020-08-16] MEDS ORDERED: MUPIROCIN 2% TOPICAL OINTMENT FOR DECOLONIZATION NS SCH (22:00)
[2020-08-17] MEDS ORDERED: AMPICILLIN SODIUM 2 GM VIAL ONE ×3 (01:24→18:25)
[2020-08-17] MEDS ORDERED: SODIUM CHLORIDE 100 ML IVPB ONE ×3 (01:24→18:25)
[2020-08-17] MEDS ORDERED: PT OWN MED DRAWER 7, Y5N ONE ×8 (01:49→22:01)
[2020-08-17] MEDS: AMPICILLIN - 2 GM in SODIUM CHLORIDE 100 ML IVPB SCH ×6 (02:48→22:07)
[2020-08-17] MEDS: WATER IVPB SCH ×2 (03:26→10:22)
[2020-08-17] MEDS: GENTAMICIN IVPB SCH ×2 (03:26→10:22)
[2020-08-17] MEDS: DEXTROSE 5% IVPB SCH ×2 (03:26→10:22)
[2020-08-17] MEDS: PHENobarbital 30 MG TABLET PO SCH ×2 (09:12→21:02)
[2020-08-17] MEDS: levETIRAcetam 500 MG TABLET (FP) PO SCH ×2 (09:12→21:03)
[2020-08-17] MEDS: TOPIRAMATE 200 MG TABLET PO SCH ×2 (09:13→21:02)
[2020-08-17] MEDS: ACETAMINOPHEN 500 MG TABLET (FP) PO PRN (09:13)
[2020-08-17 11:59] LABS: CALCIUM 8.3 mg/dL (8.5-10.1)
[2020-08-17 12:00] LABS: ALBUMIN 2.9 g/dl (3.4-5.0)
[2020-08-17 12:03] LABS: BLOOD UREA NITROGEN 7.1 mg/dL (7-18)
[2020-08-17 12:04] LABS: BILIRUBIN,TOTAL 0.4 mg/dL (0.2-1)
[2020-08-17 12:05] LABS: TOT PROT 6.3 g/dl (6.4-8.2)
[2020-08-17 12:06] LABS: CREATININE 0.3 mg/dL (0.55-1.3)
[2020-08-17] MEDS: OXcarbazepine 300 MG TABLET (UD) PO SCH ×2 (12:06→21:03)
[2020-08-17] MEDS: GENTAMICIN 80 MG PREMIXED IVPB 80 MG/100 ML BAG IVPB SCH (20:03)
[2020-08-18] MEDS ORDERED: AMPICILLIN SODIUM 2 GM VIAL ONE ×6 (01:22→23:46)
[2020-08-18] MEDS ORDERED: SODIUM CHLORIDE 100 ML IVPB ONE ×6 (01:23→23:46)
[2020-08-18] MEDS: AMPICILLIN - 2 GM in SODIUM CHLORIDE 100 ML IVPB SCH ×6 (01:25→23:47)
[2020-08-18 07:00] LABS: CALCIUM 8.5 mg/dL (8.5-10.1)
[2020-08-18 07:02] LABS: BLOOD UREA NITROGEN 7.8 mg/dL (7-18)
[2020-08-18 07:04] LABS: CREATININE 0.4 mg/dL (0.55-1.3)
[2020-08-18] MEDS: GENTAMICIN 80 MG PREMIXED IVPB 80 MG/100 ML BAG IVPB SCH ×2 (08:36→20:01)
[2020-08-18] MEDS ORDERED: PT OWN MED DRAWER 7, Y5N ONE ×3 (09:57→21:53)
[2020-08-18] MEDS: levETIRAcetam 500 MG TABLET (FP) PO SCH ×2 (10:12→22:06)
[2020-08-18] MEDS: PHENobarbital 30 MG TABLET PO SCH ×2 (10:12→22:05)
[2020-08-18] MEDS: TOPIRAMATE 200 MG TABLET PO SCH ×2 (10:13→22:06)
[2020-08-18] MEDS: OXcarbazepine 300 MG TABLET (UD) PO SCH ×2 (12:07→22:06)
[2020-08-18] MEDS: SODIUM CHLORIDE 1 GM TABLET PO SCH (15:00)
[2020-08-19] MEDS ORDERED: AMPICILLIN SODIUM 2 GM VIAL ONE ×6 (02:50→22:25)
[2020-08-19] MEDS ORDERED: SODIUM CHLORIDE 100 ML IVPB ONE ×6 (02:51→22:26)
[2020-08-19] MEDS: AMPICILLIN - 2 GM in SODIUM CHLORIDE 100 ML IVPB SCH ×6 (02:53→23:12)
[2020-08-19] MEDS: GENTAMICIN 80 MG PREMIXED IVPB 80 MG/100 ML BAG IVPB SCH ×2 (07:59→21:36)
[2020-08-19] MEDS ORDERED: PT OWN MED DRAWER 7, Y5N ONE ×4 (08:41→21:40)
[2020-08-19] MEDS: levETIRAcetam 500 MG TABLET (FP) PO SCH ×2 (09:11→22:11)
[2020-08-19] MEDS: PHENobarbital 30 MG TABLET PO SCH ×2 (09:13→22:12)
[2020-08-19] MEDS: SODIUM CHLORIDE 1 GM TABLET PO SCH (09:14)
[2020-08-19] MEDS: TOPIRAMATE 200 MG TABLET PO SCH ×2 (09:14→22:13)
[2020-08-19] MEDS: OXcarbazepine 300 MG TABLET (UD) PO SCH ×2 (09:15→22:14)
[2020-08-19 09:25] LABS: BLOOD UREA NITROGEN 8.7 mg/dL (7-18); CALCIUM 8.2 mg/dL (8.5-10.1)
[2020-08-19 09:28] LABS: CREATININE 0.3 mg/dL (0.55-1.3)
[2020-08-20] MEDS ORDERED: SODIUM CHLORIDE 100 ML IVPB ONE ×6 (01:03→21:36)
[2020-08-20] MEDS ORDERED: AMPICILLIN SODIUM 2 GM VIAL ONE ×6 (01:03→21:36)
[2020-08-20] MEDS: AMPICILLIN - 2 GM in SODIUM CHLORIDE 100 ML IVPB SCH ×6 (01:09→21:38)
[2020-08-20] MEDS: GENTAMICIN 80 MG PREMIXED IVPB 80 MG/100 ML BAG IVPB SCH ×2 (07:55→19:24)
[2020-08-20] MEDS ORDERED: PT OWN MED DRAWER 7, Y5N ONE ×2 (09:10→21:36)
[2020-08-20] MEDS: OXcarbazepine 300 MG TABLET (UD) PO SCH ×2 (09:39→21:42)
[2020-08-20] MEDS: levETIRAcetam 500 MG TABLET (FP) PO SCH ×2 (09:40→21:44)
[2020-08-20] MEDS: TOPIRAMATE 200 MG TABLET PO SCH ×2 (09:40→21:43)
[2020-08-20] MEDS: PHENobarbital 30 MG TABLET PO SCH ×2 (09:41→21:41)
[2020-08-20] MEDS: SODIUM CHLORIDE 1 GM TABLET PO SCH (09:44)
[2020-08-20] MEDS: ALBUTEROL SO4 2.5/IPRATROPIUM 0.5 INH SOL 3 ML VIAL.NEB. NEB PRN ×2 (11:05→20:45)
[2020-08-20] MEDS ORDERED: ALBUTEROL SO4 2.5/IPRATROPIUM 0.5 INH SOL 3 ML VIAL.NEB. NEB SCH (12:00)
[2020-08-20 13:53] LABS: BLOOD UREA NITROGEN 8.2 mg/dL (7-18); CALCIUM 8.7 mg/dL (8.5-10.1)
[2020-08-20 13:57] LABS: CREATININE 0.5 mg/dL (0.55-1.3)
[2020-08-21] MEDS ORDERED: AMPICILLIN SODIUM 2 GM VIAL ONE ×6 (01:05→22:09)
[2020-08-21] MEDS ORDERED: SODIUM CHLORIDE 100 ML IVPB ONE ×6 (01:05→22:09)
[2020-08-21] MEDS: AMPICILLIN - 2 GM in SODIUM CHLORIDE 100 ML IVPB SCH ×6 (01:16→22:11)
[2020-08-21] MEDS: GENTAMICIN 80 MG PREMIXED IVPB 80 MG/100 ML BAG IVPB SCH ×2 (08:43→20:54)
[2020-08-21] MEDS ORDERED: PT OWN MED DRAWER 7, Y5N ONE (09:58)
[2020-08-21] MEDS: levETIRAcetam 500 MG TABLET (FP) PO SCH ×2 (10:05→21:55)
[2020-08-21] MEDS: PHENobarbital 30 MG TABLET PO SCH ×2 (10:06→21:56)
[2020-08-21] MEDS: TOPIRAMATE 200 MG TABLET PO SCH ×2 (10:07→21:56)
[2020-08-21] MEDS: SODIUM CHLORIDE 1 GM TABLET PO SCH (10:07)
[2020-08-21] MEDS: OXcarbazepine 300 MG TABLET (UD) PO SCH ×2 (10:08→21:56)
[2020-08-21 13:10] LABS: CALCIUM 8.7 mg/dL (8.5-10.1)
[2020-08-21 13:14] LABS: CREATININE 0.4 mg/dL (0.55-1.3)
[2020-08-21] MEDS ORDERED: LORazepam 2 MG/ML SDV VIAL ONE ×2 (17:07→17:13)
[2020-08-21] MEDS ORDERED: LORazepam 2 MG/ML SDV VIAL IVPUSH ONE (17:49)
[2020-08-22] MEDS ORDERED: AMPICILLIN SODIUM 2 GM VIAL ONE ×6 (01:42→22:40)
[2020-08-22] MEDS ORDERED: SODIUM CHLORIDE 100 ML IVPB ONE ×6 (01:42→22:40)
[2020-08-22] MEDS: AMPICILLIN - 2 GM in SODIUM CHLORIDE 100 ML IVPB SCH ×6 (01:43→22:48)
[2020-08-22 06:52] LABS: CALCIUM 8.7 mg/dL (8.5-10.1)
[2020-08-22 06:53] LABS: BLOOD UREA NITROGEN 13.3 mg/dL (7-18)
[2020-08-22 06:56] LABS: CREATININE 0.4 mg/dL (0.55-1.3)
[2020-08-22] MEDS: GENTAMICIN 80 MG PREMIXED IVPB 80 MG/100 ML BAG IVPB SCH ×2 (08:15→20:45)
[2020-08-22] MEDS: levETIRAcetam 500 MG TABLET (FP) PO SCH ×2 (10:24→22:46)
[2020-08-22] MEDS: PHENobarbital 30 MG TABLET PO SCH ×2 (10:25→22:47)
[2020-08-22] MEDS: TOPIRAMATE 200 MG TABLET PO SCH ×2 (10:26→22:47)
[2020-08-22] MEDS: SODIUM CHLORIDE 1 GM TABLET PO SCH (10:26)
[2020-08-22] MEDS: OXcarbazepine 300 MG TABLET (UD) PO SCH ×2 (10:27→22:48)
[2020-08-22] MEDS ORDERED: PT OWN MED DRAWER 7, Y5N ONE (22:39)
[2020-08-23] MEDS ORDERED: SODIUM CHLORIDE 100 ML IVPB ONE ×6 (02:09→22:25)
[2020-08-23] MEDS ORDERED: AMPICILLIN SODIUM 2 GM VIAL ONE ×6 (02:09→22:25)
[2020-08-23] MEDS: AMPICILLIN - 2 GM in SODIUM CHLORIDE 100 ML IVPB SCH ×6 (02:18→22:28)
[2020-08-23] MEDS: GENTAMICIN 80 MG PREMIXED IVPB 80 MG/100 ML BAG IVPB SCH ×2 (08:22→21:01)
[2020-08-23] MEDS: TOPIRAMATE 200 MG TABLET PO SCH ×2 (10:17→21:12)
[2020-08-23] MEDS: levETIRAcetam 500 MG TABLET (FP) PO SCH ×2 (10:17→21:12)
[2020-08-23] MEDS: PHENobarbital 30 MG TABLET PO SCH ×2 (10:18→21:11)
[2020-08-23] MEDS: OXcarbazepine 300 MG TABLET (UD) PO SCH ×2 (10:18→21:14)
[2020-08-23] MEDS ORDERED: PT OWN MED DRAWER 7, Y5N ONE ×2 (16:41→21:08)
[2020-08-24] MEDS ORDERED: AMPICILLIN SODIUM 2 GM VIAL ONE ×5 (01:35→22:34)
[2020-08-24] MEDS ORDERED: SODIUM CHLORIDE 100 ML IVPB ONE ×5 (01:36→22:35)
[2020-08-24] MEDS: AMPICILLIN - 2 GM in SODIUM CHLORIDE 100 ML IVPB SCH ×6 (01:41→22:43)
[2020-08-24] MEDS ORDERED: PT OWN MED DRAWER 7, Y5N ONE ×5 (09:18→22:34)
[2020-08-24] MEDS: GENTAMICIN 80 MG PREMIXED IVPB 80 MG/100 ML BAG IVPB SCH ×2 (09:19→22:11)
[2020-08-24] MEDS: levETIRAcetam 500 MG TABLET (FP) PO SCH ×2 (09:19→22:43)
[2020-08-24] MEDS: PHENobarbital 30 MG TABLET PO SCH ×2 (09:20→22:44)
[2020-08-24] MEDS: TOPIRAMATE 200 MG TABLET PO SCH ×2 (09:21→22:44)
[2020-08-24] MEDS: OXcarbazepine 300 MG TABLET (UD) PO SCH ×2 (09:22→22:44)
[2020-08-25] MEDS ORDERED: SODIUM CHLORIDE 100 ML IVPB ONE ×4 (01:48→22:33)
[2020-08-25] MEDS ORDERED: AMPICILLIN SODIUM 2 GM VIAL ONE ×4 (01:48→22:32)
[2020-08-25] MEDS: AMPICILLIN - 2 GM in SODIUM CHLORIDE 100 ML IVPB SCH ×6 (01:52→22:35)
[2020-08-25 07:28] LABS: BLOOD UREA NITROGEN 9.6 mg/dL (7-18); CALCIUM 8.6 mg/dL (8.5-10.1)
[2020-08-25 07:31] LABS: CREATININE 0.4 mg/dL (0.55-1.3)
[2020-08-25] MEDS ORDERED: PT OWN MED DRAWER 7, Y5N ONE ×8 (08:36→21:05)
[2020-08-25] MEDS: GENTAMICIN 80 MG PREMIXED IVPB 80 MG/100 ML BAG IVPB SCH ×2 (08:41→21:09)
[2020-08-25] MEDS: TOPIRAMATE 200 MG TABLET PO SCH ×2 (09:25→21:09)
[2020-08-25] MEDS: levETIRAcetam 500 MG TABLET (FP) PO SCH ×2 (09:25→21:09)
[2020-08-25] MEDS: PHENobarbital 30 MG TABLET PO SCH ×2 (09:26→21:09)
[2020-08-25] MEDS: OXcarbazepine 300 MG TABLET (UD) PO SCH ×2 (09:26→21:09)
[2020-08-25 10:10] LABS: BASO % 0.9 % (0-2.0); EOS % 3.6 % (0-4.5); HEMATOCRIT 38.9 % (35.4-49); HEMOGLOBIN 12.4 GM/dL (11.7-16.9); LYMPH % 37.1 % (8-40); MCH 26.3 pg (25.7-33.7); MCHC 31.8 g/dl (32.0-35.9); MEAN CELL VOLUME 82.7 fl (80-96); MEAN PLT VOLUME 8.2 fl (7.5-11.1); MONO % 6.1 % (3.8-10.2); NEUT % 52.3 % (42.8-82.8); PLATELET COUNT 384 10^3/uL (134-434); RBC 4.71 M/mm3 (4.00-5.60); RDW 18.3 % (11.9-15.9)
[2020-08-25] MEDS: LACTOBACILLUS ACIDOPHILUS 1 TABLET PO SCH (10:10)
[2020-08-25] MEDS: SODIUM CHLORIDE 1 GM TABLET PO SCH (12:24)
[2020-08-26] MEDS ORDERED: AMPICILLIN SODIUM 2 GM VIAL ONE ×4 (01:22→14:32)
[2020-08-26] MEDS ORDERED: SODIUM CHLORIDE 100 ML IVPB ONE ×4 (01:23→14:32)
[2020-08-26] MEDS: AMPICILLIN - 2 GM in SODIUM CHLORIDE 100 ML IVPB SCH ×6 (01:27→23:23)
[2020-08-26 06:57] LABS: BLOOD UREA NITROGEN 13.2 mg/dL (7-18); CALCIUM 8.4 mg/dL (8.5-10.1)
[2020-08-26 07:00] LABS: CREATININE 0.4 mg/dL (0.55-1.3)
[2020-08-26 07:03] LABS: BILIRUBIN,TOTAL 0.5 mg/dL (0.2-1); TOT PROT 6.7 g/dl (6.4-8.2)
[2020-08-26] MEDS: GENTAMICIN 80 MG PREMIXED IVPB 80 MG/100 ML BAG IVPB SCH (08:07)
[2020-08-26] MEDS ORDERED: PT OWN MED DRAWER 7, Y5N ONE ×5 (09:21→19:39)
[2020-08-26] MEDS: OXcarbazepine 300 MG TABLET (UD) PO SCH ×2 (09:26→23:23)
[2020-08-26] MEDS: levETIRAcetam 500 MG TABLET (FP) PO SCH ×2 (09:26→22:39)
[2020-08-26] MEDS: LACTOBACILLUS ACIDOPHILUS 1 TABLET PO SCH (09:26)
[2020-08-26] MEDS: TOPIRAMATE 200 MG TABLET PO SCH ×2 (09:26→22:40)
[2020-08-26] MEDS: PHENobarbital 30 MG TABLET PO SCH ×2 (09:27→22:39)
[2020-08-26] MEDS: ACETAMINOPHEN 500 MG TABLET (FP) PO PRN (09:42)
[2020-08-26] MEDS: SODIUM CHLORIDE 1 GM TABLET PO SCH (09:42)
[2020-08-27] MEDS: AMPICILLIN - 2 GM in SODIUM CHLORIDE 100 ML IVPB SCH ×4 (02:56→14:09)
[2020-08-27] MEDS ORDERED: PT OWN MED DRAWER 7, Y5N ONE (09:56)
[2020-08-27] MEDS: PHENobarbital 30 MG TABLET PO SCH (10:18)
[2020-08-27] MEDS: levETIRAcetam 500 MG TABLET (FP) PO SCH (10:18)
[2020-08-27] MEDS: SODIUM CHLORIDE 1 GM TABLET PO SCH (10:18)
[2020-08-27] MEDS: TOPIRAMATE 200 MG TABLET PO SCH (10:19)
[2020-08-27] MEDS: LACTOBACILLUS ACIDOPHILUS 1 TABLET PO SCH (10:19)
[2020-08-27] MEDS: OXcarbazepine 300 MG TABLET (UD) PO SCH (10:19)
[2020-08-27] MEDS ORDERED: AMPICILLIN SODIUM 2 GM VIAL ONE ×3 (10:30→14:05)
[2020-08-27] MEDS ORDERED: SODIUM CHLORIDE 100 ML IVPB ONE ×3 (10:30→14:05)
[2020-08-27 15:57] VITALS: BP 129/87; PULSE 70; TEMP 98.2
== END 2020-08-27 16:47 | disposition home health service (06) | DRG 720 ==
LOC: JER 20:40 → JERBED 23:21 → JICU 08-12 15:40 → J4S 08-16 13:06
PROVIDERS: ADMIT Hospitalist; ATTEND Family Medicine
PROC: 4A00X4Z Measurement of Central Nervous Electrical Activity, External Approach (ICD-10-PCS; principal; 2020-08-13)
DX: A41.89 Other specified sepsis (principal); J69.0 Pneumonitis due to inhalation of food and vomit; E87.0 Hyperosmolality and hypernatremia; R50.9 Fever, unspecified; N39.0 Urinary tract infection, site not specified; E87.2 Acidosis; G40.909 Epilepsy, unspecified, not intractable, without status epilepticus; F79 Unspecified intellectual disabilities; I10 Essential (primary) hypertension; J44.9 Chronic obstructive pulmonary disease, unspecified; K21.9 Gastro-esophageal reflux disease without esophagitis; E87.6 Hypokalemia; B95.2 Enterococcus as the cause of diseases classified elsewhere; R13.10 Dysphagia, unspecified; M86.8X8 Other osteomyelitis, other site; N20.0 Calculus of kidney; Z20.822 Contact with and (suspected) exposure to COVID-19
CPT/HCPCS: 36415; 70450-TC; 71045-TC-FY; 71250-TC; 74177-TC; 74230-TC-FY; 80048; 80053; 80170; 80177; 80184; 80201; 81003; 82436; 82550; 83605; 83735; 83930; 83935; 84100; 84133; 84300; 84439; 84443; 84484; 85025; 85610; 85651; 86140; 87040; 87086; 87186; 87899; 92611-GN; 93005; 93010; 93306-TC; 94640; 97161-GP; 99285-25; C9803; J0131; Q9967; U0003; U0005

== ENCOUNTER 2024-06-12 22:51 | Inpatient (IN) | payer OTHER ==
[2024-06-12 23:00] VITALS: BMI 32.3
[2024-06-13] MEDS ORDERED: ACETAMINOPHEN 325 MG TABLET (FP) ONE (00:21)
[2024-06-13] MEDS: ACETAMINOPHEN 500 MG TABLET (FP) PO ONE (00:55)
[2024-06-13] MEDS ORDERED: MORPHINE SULFATE 2 MG/ML SYRINGE ONE (01:59)
[2024-06-13 02:09] LABS: ABSOLUTE IMMATURE GRANULOCYTES 0.05 x10^3/uL (0.0-0.031); BASOPHILS # 0.07 x10^3/uL (0.01-0.08); HEMATOCRIT 46.8 % (40.1-51.0); MCHC 34.2 g/dl (32.3-36.5); MEAN CELL VOLUME 90.2 fl (79.0-92.2); MONOCYTE # 1.04 x10^3/uL (0.30-0.82); MONOCYTE % 6.9 % (5.3-12.2); RDW 14.8 % (12.1-15.9)
[2024-06-13] MEDS: SODIUM CHLORIDE 0.9% 500 ML INFUS.BAG IV ONE (02:13)
[2024-06-13] MEDS: morphine SULFATE 4 MG/ML VIAL IVPUSH ONE ×2 (02:13)
[2024-06-13 02:33] LABS: CHLORIDE 99 mmol/L (98-107)
[2024-06-13 02:35] LABS: CALCIUM 8.3 mg/dL (8.5-10.1)
[2024-06-13 02:36] LABS: ALBUMIN 2.7 g/dl (3.4-5.0); BLOOD UREA NITROGEN 17.1 mg/dL (7-18); CO2 21 mmol/L (21-32); GLUCOSE,RANDOM 129 mg/dL (74-106)
[2024-06-13 02:39] LABS: CREATININE 0.8 mg/dL (0.55-1.3)
[2024-06-13 02:41] LABS: TOT PROT 10.1 g/dl (6.4-8.2)
[2024-06-13 03:10] LABS: INR 1.19 (0.83-1.09); PROTHROMBIN TIME (PATIENT) 13.1 SEC (9.7-13.0)
[2024-06-13 03:13] LABS: ACTIVATED PTT 28.4 SECONDS (25.2-36.5)
[2024-06-13 03:41] LABS: PLATELET COUNT 189 x10^3/uL (163-337)
[2024-06-13 03:59] LABS: ANION GAP -6 mmol/L (4-13); POTASSIUM > 10.0 mmol/L (3.5-5.1); SODIUM 114 mmol/L (136-145)
[2024-06-13] MEDS ORDERED: MORPHINE SULFATE 2 MG/ML SYRINGE IVPUSH PRN ×2 (04:28→08:43)
[2024-06-13] MEDS ORDERED: ACETAMINOPHEN 1000 MG/100 ML BAG IVPB PRN (04:28)
[2024-06-13] MEDS ORDERED: TOPIRAMATE 100 MG TABLET ONE (06:19)
[2024-06-13] MEDS: TOPIRAMATE 200 MG TABLET PO SCH (06:24)
[2024-06-13 06:44] LABS: POTASSIUM 3.5 mmol/L (3.5-5.1)
[2024-06-13 06:46] LABS: BLOOD UREA NITROGEN 14.1 mg/dL (7-18)
[2024-06-13 06:50] LABS: CREATININE 0.7 mg/dL (0.55-1.3)
[2024-06-13 06:51] LABS: BILIRUBIN,TOTAL 0.6 mg/dL (0.2-1)
[2024-06-13 06:54] LABS: ABSOLUTE IMMATURE GRANULOCYTES 0.04 x10^3/uL (0.0-0.031); BASOPHILS # 0.06 x10^3/uL (0.01-0.08); EOSINOPHIL % 3.1 % (0.8-7.0); EOSINOPHILS # 0.36 x10^3/uL (0.04-0.54); HEMATOCRIT 43.9 % (40.1-51.0); HEMOGLOBIN 14.3 g/dL (13.7-17.5); MCHC 32.6 g/dl (32.3-36.5); MEAN CELL VOLUME 93.6 fl (79.0-92.2); MEAN PLT VOLUME 11.2 fl (9.4-12.4); MONOCYTE # 1.12 x10^3/uL (0.30-0.82); MONOCYTE % 9.5 % (5.3-12.2); PLATELET COUNT 167 x10^3/uL (163-337); RDW 13.7 % (12.1-15.9)
[2024-06-13 07:18] LABS: TOT PROT 5.9 g/dl (6.4-8.2)
[2024-06-13 08:12] LABS: MAGNESIUM 2.1 mg/dL (1.8-2.4)
[2024-06-13 08:15] LABS: PHOSPHOROUS 2.4 mg/dL (2.5-4.9)
[2024-06-13 08:24] LABS: INR 1.12 (0.83-1.09); PROTHROMBIN TIME (PATIENT) 12.2 SEC (9.7-13.0)
[2024-06-13] MEDS: SODIUM CHLORIDE 1 GM TABLET PO SCH (10:30)
[2024-06-13] MEDS: OXcarbazepine 300 MG TABLET (UD) PO SCH (10:34)
[2024-06-13] MEDS: levETIRAcetam 500 MG TABLET (FP) PO SCH (10:34)
[2024-06-13] MEDS: LACTOBACILLUS ACIDOPHILUS 1 TABLET PO SCH (10:34)
[2024-06-13] MEDS: PHENobarbital 30 MG TABLET PO SCH (11:20)
[2024-06-13] MEDS: D5-1/2NS+20 MEQ KCL - 20 MEQ/1,000 ML INFUS.BAG IV SCH (16:09)
[2024-06-13] MEDS: ACETAMINOPHEN 325 MG TABLET (FP) PO PRN (18:55)
[2024-06-13 19:03] LABS: EPI CELLS 5 /uL (0-25.1); HYALINE CASTS 1 /uL (0-3.1); PH,URINE 6.5 (5.0-8.0); URINE APPEARANCE TURBID; URINE BACTERIA >9,000 /uL (0-1359); URINE BILIRUBIN 1+ (NEGATIVE); URINE COLOR DK YELLOW; URINE GLUCOSE (UA) NEGATIVE (NEGATIVE); URINE KETONE TRACE (NEGATIVE); URINE LEUK ESTERASE 1+ (NEGATIVE); URINE NITRITE NEGATIVE (NEGATIVE); URINE PROTEIN 2+ (NEGATIVE)
[2024-06-13 19:10] LABS: URINE RBC 22.1 /uL (0-23.9)
[2024-06-14 08:11] LABS: ABSOLUTE IMMATURE GRANULOCYTES 0.04 x10^3/uL (0.0-0.031); BASOPHILS # 0.04 x10^3/uL (0.01-0.08); EOSINOPHIL % 6.2 % (0.8-7.0); HEMATOCRIT 39.6 % (40.1-51.0); HEMOGLOBIN 12.4 g/dL (13.7-17.5); MCHC 31.3 g/dl (32.3-36.5); MEAN CELL VOLUME 94.5 fl (79.0-92.2); MEAN PLT VOLUME 11.3 fl (9.4-12.4); MONOCYTE # 1.37 x10^3/uL (0.30-0.82); MONOCYTE % 14.1 % (5.3-12.2); PLATELET COUNT 147 x10^3/uL (163-337); RDW 13.7 % (12.1-15.9)
[2024-06-14 08:24] LABS: POTASSIUM 3.7 mmol/L (3.5-5.1)
[2024-06-14 08:32] LABS: ALBUMIN 2.5 g/dl (3.4-5.0); BLOOD UREA NITROGEN 13.7 mg/dL (7-18); CALCIUM 7.9 mg/dL (8.5-10.1)
[2024-06-14 08:35] LABS: CREATININE 0.5 mg/dL (0.55-1.3)
[2024-06-14 08:37] LABS: BILIRUBIN,TOTAL 0.6 mg/dL (0.2-1); TOT PROT 5.2 g/dl (6.4-8.2)
[2024-06-14] MEDS ORDERED: MIDAZOLAM HCL 2 MG/2 ML SINGLE DOSE VIAL ONE (12:33)
[2024-06-14] MEDS ORDERED: SUCCINYLCHOLINE CHLORIDE 200 MG/10 ML SYRINGE ONE (17:29)
[2024-06-14] MEDS ORDERED: PROPOFOL 20 ML ONE (17:29)
[2024-06-14] MEDS ORDERED: ceFAZolin SODIUM 1 GM VIAL ONE (18:53)
[2024-06-14] MEDS: ceFAZolin SODIUM 1 GM VIAL IVPB ONE (18:55)
[2024-06-14] MEDS ORDERED: DEXAMETHASONE SOD PHOSPHATE 4 MG/1 ML VIAL ONE (18:59)
[2024-06-14] MEDS ORDERED: ONDANSETRON 4 MG/2 ML VIAL ONE (18:59)
[2024-06-14] MEDS ORDERED: KETOROLAC TROMETHAMINE 30 MG/1 ML VIAL ONE (19:11)
[2024-06-14] MEDS ORDERED: ACETAMINOPHEN INJECTION 100 ML ONE (19:14)
[2024-06-14] MEDS ORDERED: ONDANSETRON 4 MG/2 ML VIAL IVPUSH PRN (19:55)
[2024-06-14] MEDS ORDERED: SODIUM CHLORIDE 1,000 ML IV SCH (20:00)
[2024-06-14] MEDS: ALBUTEROL SO4 2.5/IPRATROPIUM 0.5 INH SOL 3 ML VIAL.NEB. NEB ONE (20:15)
[2024-06-14] MEDS ORDERED: ACETAMINOPHEN 325 MG TABLET (FP) PO PRN (20:17)
[2024-06-14] MEDS: D5-1/2NS+20 MEQ KCL - 20 MEQ/1,000 ML INFUS.BAG IV SCH (21:00)
[2024-06-14] MEDS: PHENobarbital 30 MG TABLET PO SCH (22:58)
[2024-06-14] MEDS: levETIRAcetam 500 MG TABLET (FP) PO SCH (22:58)
[2024-06-14] MEDS: TOPIRAMATE 200 MG TABLET PO SCH (22:59)
[2024-06-14] MEDS: OXcarbazepine 300 MG TABLET (UD) PO SCH (22:59)
[2024-06-15] MEDS: CEFAZOLIN 2 GM/D5W 2 GM/50 ML ML IVPB SCH (01:27)
[2024-06-15] MEDS: ENOXAPARIN NA (PORCINE) 40 MG/0.4 ML DISP.SYRIN SQ SCH (09:33)
[2024-06-15] MEDS ORDERED: ENOXAPARIN NA (PORCINE) 30 MG/0.3 ML DISP.SYRIN SQ SCH (10:00)
[2024-06-15 10:10] LABS: HEMATOCRIT 38.9 % (40.1-51.0); HEMOGLOBIN 12.3 g/dL (13.7-17.5); MCHC 31.6 g/dl (32.3-36.5); MEAN CELL VOLUME 95.3 fl (79.0-92.2); MEAN PLT VOLUME 11.4 fl (9.4-12.4); PLATELET COUNT 147 x10^3/uL (163-337); RDW 13.7 % (12.1-15.9)
[2024-06-15 10:36] LABS: CALCIUM 7.6 mg/dL (8.5-10.1)
[2024-06-15 10:37] LABS: ALBUMIN 2.6 g/dl (3.4-5.0); BLOOD UREA NITROGEN 7.1 mg/dL (7-18); MAGNESIUM 2.1 mg/dL (1.8-2.4)
[2024-06-15 10:40] LABS: CREATININE 0.4 mg/dL (0.55-1.3); PHOSPHOROUS 2.2 mg/dL (2.5-4.9)
[2024-06-15 10:41] LABS: BILIRUBIN,TOTAL 0.5 mg/dL (0.2-1); TOT PROT 5.5 g/dl (6.4-8.2)
[2024-06-15] MEDS ORDERED: ACETAMINOPHEN 325 MG TABLET (FP) PO PRN (11:05)
[2024-06-15] MEDS: LACTOBACILLUS ACIDOPHILUS 1 TABLET PO SCH (11:16)
[2024-06-15] MEDS: ACETAMINOPHEN 500 MG TABLET (FP) PO SCH (11:20)
[2024-06-15] MEDS: CELECOXIB 200 MG CAPSULE PO SCH (12:38)
[2024-06-16 08:57] LABS: HEMATOCRIT 35.3 % (40.1-51.0); HEMOGLOBIN 11.3 g/dL (13.7-17.5); MEAN CELL VOLUME 93.9 fl (79.0-92.2); MEAN PLT VOLUME 10.9 fl (9.4-12.4); PLATELET COUNT 229 x10^3/uL (163-337); RDW 13.7 % (12.1-15.9)
[2024-06-16 09:20] LABS: POTASSIUM 3.6 mmol/L (3.5-5.1)
[2024-06-16 10:10] LABS: BLOOD UREA NITROGEN 10.4 mg/dL (7-18); CALCIUM 7.6 mg/dL (8.5-10.1)
[2024-06-16 10:14] LABS: CREATININE 0.5 mg/dL (0.55-1.3); MAGNESIUM 2.3 mg/dL (1.8-2.4)
[2024-06-16 10:17] LABS: PHOSPHOROUS 2.6 mg/dL (2.5-4.9)
[2024-06-17 08:56] LABS: HEMATOCRIT 33.9 % (40.1-51.0); HEMOGLOBIN 11.3 g/dL (13.7-17.5); MCHC 33.3 g/dl (32.3-36.5); MEAN CELL VOLUME 92.1 fl (79.0-92.2); MEAN PLT VOLUME 10.3 fl (9.4-12.4); PLATELET COUNT 242 x10^3/uL (163-337); RDW 13.2 % (12.1-15.9)
[2024-06-17 09:06] LABS: POTASSIUM 3.7 mmol/L (3.5-5.1)
[2024-06-17 09:15] LABS: BLOOD UREA NITROGEN 9.8 mg/dL (7-18)
[2024-06-17 09:17] LABS: ALBUMIN 2.3 g/dl (3.4-5.0)
[2024-06-17 09:19] LABS: CREATININE 0.3 mg/dL (0.55-1.3)
[2024-06-17 09:21] LABS: BILIRUBIN,TOTAL 0.5 mg/dL (0.2-1); PHOSPHOROUS 2.8 mg/dL (2.5-4.9)
[2024-06-17 11:07] VITALS: RESP 18
[2024-06-17 14:40] VITALS: BP 120/59; PULSE 70; TEMP 99.1
== END 2024-06-17 18:45 | disposition home or self-care (01) | DRG 308 ==
LOC: JER 22:51 → JERBED 06-13 02:59 → UNDODISIN 06-13 07:55 → J8W 06-13 09:01 → J6S 06-13 12:23
PROVIDERS: ADMIT Internal Medicine; ATTEND Internal Medicine
PROC: 0QS604Z Reposition Right Upper Femur with Internal Fixation Device, Open Approach (ICD-10-PCS; principal; 2024-06-14 12:00)
DX: S72.141A Displaced intertrochanteric fracture of right femur, initial encounter for closed fracture (principal); J44.9 Chronic obstructive pulmonary disease, unspecified; G40.909 Epilepsy, unspecified, not intractable, without status epilepticus; K21.9 Gastro-esophageal reflux disease without esophagitis; I10 Essential (primary) hypertension; D64.9 Anemia, unspecified; F79 Unspecified intellectual disabilities; W07.XXXA Fall from chair, initial encounter; Y93.89 Activity, other specified; Y92.009 Unspecified place in unspecified non-institutional (private) residence as the place of occurrence of the external cause; Y99.8 Other external cause status
CPT/HCPCS: 36415; 71045-TC-FY; 72170-TC-FY; 73521-TC-FY; 73590-TC-RT-FY; 73700-TC-RT; 76000-TC-FY; 80048; 80053; 80183; 80184; 80201; 81003; 83735; 84100; 85025; 85027; 85610; 85730; 86850; 86900; 86901; 87086; 87186; 93005; 93010; 94640; 94760; 97161-GP; 99285-25; C1713; J0131